=== PATIENT | female | born 1955 | race Caucasian/White ===

== ENCOUNTER 2022-12-30 06:51 | Outpatient (OUT) | payer MEDICARE, OTHER, SELFPAY ==
--- NOTE | 2022-12-30 07:07 | CT_ITS ---
[address] [address] Patient Name: DONNIE BULLOCK MRN: [id number] date: 1955 Sex: F Assigned Patient Location: LAB Current Patient Location: LAB Accession/Order Number: [id number] Exam Date: 12/30/2022 08:10 Report Date: 12/30/2022 09:12 At the request of: MONI SIMPSON Procedure: CT abdomen pelvis w con EXAMINATION: CT abdomen pelvis w con HISTORY: Abdominal Pain R10.84, Change In Stool R19.5 COMPARISON: No relevant comparison available. TECHNIQUE: Axial, Coronal, and Sagittal images were obtained without and/or with IV contrast as indicated by examination type. Dose reduction techniques were achieved by using automated exposure control and/or adjustment of mA and/or kV according to patient size and/or use of iterative reconstruction technique. FINDINGS: LUNG BASES: No visible pulmonary or pleural disease. LIVER: No enlargement, atrophy, suspicious density, or significant focal lesion. BILIARY: No dilatation or calcification. PANCREAS: No lesion, fluid collection, or abnormal duct dilatation. SPLEEN: No enlargement or focal lesion. ADRENALS: No mass or enlargement. KIDNEYS: 8.9 cm, and 1.0 cm benign-appearing left renal cysts. No mass, obstruction, or calcification. BOWEL/MESENTERY: No visible mass, obstruction, or bowel wall thickening. Relatively empty/collapsed distal colon. AORTA/VASCULAR: No aneurysm or dissection. RETROPERITONEUM: No mass or adenopathy. LYMPH NODES: No adenopathy. URINARY BLADDER: No visible focal wall thickening, lesion, or calculus. PELVIC ORGANS: Hysterectomy. ABDOMINAL WALL: No mass or hernia. BONES: Multilevel degenerative disc disease, greatest at L2-L3. No bony lesion or fracture. OTHER: Negative. CT/CT abdomen pelvis w con IMPRESSION: 1.No acute or suspicious findings to account for patient's symptoms. No appreciable mass or bowel obstruction. Electronically authenticated by: HERSON REBOLLEDO Date: 12/30/2022 09:12
[2022-12-30 07:08] LABS: Estimated GFR (African America >60 (>=60); Estimated GFR (Non-African Ame >60 (>=60)
== END 2022-12-30 06:52 | disposition home or self-care (01) ==
LOC: LAB 06:52
PROVIDERS: PCP Family Medicine; Visit Provider Family Medicine
DX: R10.84 Generalized abdominal pain (principal); R19.5 Other fecal abnormalities
CPT/HCPCS: 36415; 74177; 82565; Q9967

== ENCOUNTER 2023-01-14 11:29 | Outpatient (OUT) | payer MEDICARE, OTHER, SELFPAY | END 2023-01-14 11:30 | disposition home or self-care (01) | LOC: PST 11:31 | PROVIDERS: PCP Family Medicine; Visit Provider Surgery | DX: Z01.818 Encounter for other preprocedural examination (principal); R19.4 Change in bowel habit; K59.09 Other constipation ==

== ENCOUNTER 2023-01-27 08:23 | Day surgery (SDC) | payer MEDICARE, OTHER, SELFPAY ==
--- NOTE | 2023-01-27 | OP_ITS ---
OPERATION DATE: ??01/27/2023 PREOPERATIVE DIAGNOSIS:? Change in bowel habits, chronic constipation. POSTOPERATIVE DIAGNOSIS:? Redundant colon with spasm. PROCEDURE:? Colonoscopy to cecum. SURGEON:? Amor Gooden M.D. ANESTHESIA:? Monitored anesthesia care. ESTIMATED BLOOD LOSS:? Zero. INDICATIONS AND CONSENT:? Patient is a 67-year-old female with history of decreased caliber of the stool, as well as chronic constipation.? Indications, risks, benefits, alternatives of proceeding with colonoscopy were explained extensively to the patient, including the risks of bleeding, colon perforation or anesthetic complications.? All of her questions were answered.? Informed consent was obtained. PROCEDURE:? Patient brought to the operating room, placed in the left lateral decubitus position.? Monitored anesthesia care was provided.? Rectal exam was performed which showed no masses or blood.? The scope was inserted into the anal canal.? Under direct visualization was advanced.? There was noted to be brown liquid stool, as well as semi-solid stool throughout the colon that was partially irrigated clear, but was considered a poor prep.? The scope was able to be advanced to the cecum.? Cecal bulb was partially obscured by formed stool.? There were no large mass lesions or polyps.? No inflammatory changes or ulcerations.? There was mild sigmoid diverticulosis.? There was noted to be marked redundancy and spasm of the colon.? The scope was retroflexed in the anal canal.? There was no significant hemorrhoidal disease.? Scope was then withdrawn.? Patient tolerated procedure well, was sent to recovery room in good condition. Follow up colonoscopy for screening should be in 10 years. CC:? Remigio Hoyos M.D. [facility] FACILITYCamila
[2023-01-27 08:39] VITALS: BMI 26.8
[2023-01-27] MEDS: LACTATED RINGER'S SOLUTION 1,000 ML 50 ML IV (08:45)
[2023-01-27 10:05] VITALS: BP 98/55; PULSE 72; RESP 16; TEMP 36.2; O2SAT 98
[2023-01-27 10:16] VITALS: BP 129/64; PULSE 74; RESP 16; O2SAT 99
[2023-01-27 10:30] VITALS: BP 120/68; PULSE 72; RESP 16; O2SAT 99
== END 2023-01-27 10:32 | disposition home or self-care (01) ==
PROVIDERS: PCP Family Medicine; Visit Provider Surgery
PROC: (CPT 45378; principal; 2023-01-27 10:00)
DX: K59.09 Other constipation (principal); K58.1 Irritable bowel syndrome with constipation; E78.5 Hyperlipidemia, unspecified; K21.9 Gastro-esophageal reflux disease without esophagitis; F41.1 Generalized anxiety disorder; Q43.8 Other specified congenital malformations of intestine; K57.30 Diverticulosis of large intestine without perforation or abscess without bleeding
CPT/HCPCS: 45378; J2704

== ENCOUNTER 2023-03-25 07:46 | Outpatient (OUT) | payer MEDICARE, OTHER, SELFPAY ==
[2023-03-25 08:15] LABS: Estimated GFR (African America >60 (>=60); Estimated GFR (Non-African Ame >60 (>=60)
== END 2023-03-25 07:47 | disposition home or self-care (01) ==
LOC: LAB 07:46
PROVIDERS: PCP Family Medicine; Visit Provider Family Medicine
DX: R42 Dizziness and giddiness (principal); Z82.3 Family history of stroke
CPT/HCPCS: 36415; 82565

== ENCOUNTER 2023-05-13 09:03 | Outpatient (OUT) | payer MEDICARE, OTHER, SELFPAY ==
--- OUTSIDE RECORDS SUMMARY | 2023-05-13 09:05 | XMS_ITS | CCD ---
Author Name Unknown Address [address] [facility] [address] [place] [address] Organization [facility] Care Team Providers Care Whizzer Hand Name Role Phone CALVIN, DR MONI Richardson Attending Unavailable NADERER, DR MONI Richardson Admitting Unavailable NADERER, DR MONI Richardson Primary Care Unavailable NADERER, DR MONI Richardson Consulting Unavailable NADERER, DR MONI Richardson Admitting Unavailable NADERER, DR MONI Richardson Primary Care Unavailable ZIEBER, DR HERSON Pollock Consulting Unavailable NADERER, DR MONI Richardson Attending Unavailable NADERER, DR MONI Richardson Consulting Unavailable NADERER, DR MONI Richardson Admitting Unavailable NADERER, DR MONI Richardson Primary Care Unavailable ZIEBER, DR HERSON Pollock Consulting Unavailable NADERER, DR MONI Richardson Attending Unavailable NADERER, DR MONI Richardson Consulting Unavailable NADERER, DR MONI Richardson Admitting Unavailable NADERER, DR MONI Richardson Primary Care Unavailable ZIEBER, DR HERSON Pollock Consulting Unavailable NADERER, DR MONI Richardson Attending Unavailable NADERER, DR MONI Richardson Consulting Unavailable NADERER, MONI Primary Care Physician Amor HOLLY Attending Unavailable NADERER, MONI Referring Unavailable NILL, Amor Pollock Attending Unavailable NADERER, MONI Referring Unavailable NILL, Amor Pollock Attending Unavailable Medications Current Medications Medication Drug Class(es) Dates Sig (Normalized) Sig (Original) wheat dextrin 3000 mg powder for oral solution (1 source) Start: 01-08-2023 Benefiber 100% oral powder as needed for constipation, Refill(s) 0 Start Date: 01/08/23 Status: Ordered Problems Active Problems Problem Classification Problem Date Documented Da te Episodic/Chronic Abdominal pain (1 source) Generalized abdominal pain 01-04-2023 Episodic Anxiety disorders (1 source) Generalized anxiety disorder 01-04-2023 Chronic Cardiac dysrhythmias (1 source) Paroxysmal supraventricular tachycardia 01-04-2023 Chronic Conditions associated with dizziness or vertigo (1 source) Dizziness and giddiness; Translations: [DIZZINESS AND GIDDINESS] Onset: 3 Episodic Diabetes mellitus without complication (5 sources) Impaired fasting glucose; Translations: [Impaired fasting glycemia] Onset: 3 Episodic Disorders of lipid metabolism (2 sources) Hyperlipidemia, unspecified; Translations: [Dyslipidemia] Onset: 3 01-04-2023 Chronic Esophageal disorders (1 source) Gastroesophageal reflux disease 01-04-2023 Chronic Comment on above: diet controlled Malaise and fatigue (1 source) Other fatigue; Translations: [OTHER FATIGUE] Onset: 3 Episodic Other aftercare (1 source) Other halfway (current) drug therapy; Translations: [OTH MCC CURRENT DRUG THERAPY] Onset: 3 Episodic Other bone disease and musculoskeletal deformities (1 source) Osteopenia 01-04-2023 Episodic Other circulatory disease (1 source) Orthostatic hypotension 01-04-2023 Episodic Other gastrointestinal disorders (5 sources) Other constipation; Translations: [OTHER CONSTIPATION] Onset: 3 Episodic Other gastrointestinal disorders (2 sources) Altered bowel function; Translations: [Change in bowel habit] Onset: 3 Episodic Other gastrointestinal disorders (1 source) Chronic constipation 01-04-2023 Episodic Other nervous system disorders (1 source) Carpal tunnel syndrome 06-15-2014 Chronic Other nutritional; endocrine; and metabolic disorders (1 source) Overweight 01-08-2023 Episodic Other nutritional; endocrine; and metabolic disorders (1 source) Overweight in adulthood with body mass index of 25 or more but less than 30 01-08-2023 Episodic Other screening for suspected conditions (not mental disorders or infectious disease) (1 source) Stool DNA-based colorectal cancer screening positive 12-03-2020 Episodic Residual codes; unclassified (1 source) Family history of stroke; Translations: [FAMILY HISTORY OF STROKE] Onset: 3 Episodic Spondylosis; intervertebral disc disorders; other back problems (1 source) Cervical disc disorder 01-04-2023 Chronic Unclassified (3 sources) CONTACT W/AND (SUSP) EXPOS COVID-19; Translations: [CONTACT W/AND (SUSP) EXPOS COVID-19] Onset: 2 Past or Other Problems Problem Classification Problem Date Documented Da te Episodic/Chronic Other non-traumatic joint disorders (4 sources) Pain in right elbow; Translations: [PAIN IN RIGHT ELBOW] Onset: 03-12-2022 Episodic Unclassified (1 source) CONTACT W/AND (SUSP) EXPOS COVID-19; Translations: [CONTACT W/AND (SUSP) EXPOS COVID-19] Onset: 11-04-2021 Unclassified (1 source) Entire carpal canal (body structure) 01-04-2023 Comment on above: had left done Results Test Name Value Interpretation Reference Range Facility Outside Colonoscopyon 2022 Outside Colonoscopy [id number]. [id number]:127 [facility] Reminderson 01-28-2023 Reminders - From: Sarah Griffiths LPN To: N - Clinical; Sent: 01/28/2023 13:00:59 EDT Show up: 12/27/2032 07:00:00 EDT Subject: colonoscopy recall Due Date/Time: 01/27/2033 07:00:00 EDT Reminder/Recall Patient due for screening colonoscopy 01/27/2033. [facility] Consent for Procedure/Surger yon 01-12-2023 Consent for Procedure/Surgery [id number] .[id number]:127 [facility] Ambulatory Visit Summaryon 0 01-08-2023 Ambulatory Visit Summary DONNIE BULLOCK :1955 Visit Date:01/08/2023 Ambulatory Visit Instructions Your Care Team Attending Physician - AVNI ROGERS, Amor Pollock Primary Care Physician - CALVIN ROGERS, MONI Referring Physician - MONI SIMPSON MD This Is Your Medications List Contact prescribing physician if questions or concerns wheat dextrin (Benefiber 100% oral powder) Procedures Performed Colonoscopy (12/25/2020), right carpal tunnel release (06/29/2014), left carpal tunnel release (06/15/2014), Adenoidectomy, D&C - Dilatation and curettage, tonsillectomy, VH - Vaginal hysterectomy. Discharge Vitals Heart Rate (Peripheral) 80 Respiratory Rate 16 Blood Pressure 136/94 Height 167 cm Height 66 in Weight 78 kg Weight 171.6 lb BMI 27.97 Medications What When Instructions Unchanged wheat dextrin (Benefiber 100% oral powder) As needed for as needed for constipation Contact prescribing physician if questions or concerns Allergies No Known Allergies Problems Ongoing - Any problem that you are currently receiving treatment for. BMI 27.0-27.9,adult Cervical disc disease Change in bowel habits Chronic constipation Dyslipidemia DALILA (generalized anxiety disorder) Generalized abdominal pain GERD (gastroesophageal reflux disease) Impaired fasting glucose Orthostatic hypotension Osteopenia Overweight Positive colorectal cancer screening using Cologuard test PSVT (paroxysmal supraventricular tachycardia) Historical - Any problem that you are no longer receiving treatment for. Carpal tunnel Normal [facility] RAD - CT Reporton 01-07-2023 RAD - CT Report [id number]:127 Normal [facility] Physician Referralon 023 Physician Referral [id number]:127 Normal [facility] CBC AUTO DIFFon 09-10-2022 BASO # 0.0 103/ul Normal 0.0-0.1 [facility] Comment on above: Performed By: #### C BC #### [facility] [address] [address] [address] Jess Marie Basophils/100 WBC (Bld) 0.4 % Normal 0.2-2.0 [facility] Comment on above: Performed By: #### C BC #### [facility] [address] [address] [address] Jess Marie EO # 0.0 103/ul Normal 0.0-0.7 [facility] Comment on above: Performed By: #### C BC #### [facility] [address] [address] [address] Jess Marie Eosinophils/100 WBC (Bld) 0.4 % Critically low 0.9-7.0 [facility] Comment on above: Performed By: #### C BC #### [facility] [address] [place] [address] Dr. Jess Marie Erythrocyte distribution width (RBC) [Ratio] 12.5 % Normal 11.0-15.0 [facility] Comment on above: Performed By: #### C BC #### [facility] [address] [place] [address] Dr. Jess Marie Hematocrit (Bld) [Volume fraction] 43.1 % Normal 36.0-48.0 [facility] Comment on above: Performed By: #### C BC #### [facility] [address] [place] [address] Dr. Jess Marie Hemoglobin (Bld) [Mass/Vol] 14.0 g/dL Normal 12.0-16.0 [facility] Comment on above: Performed By: #### C BC #### [facility] [address] [place] [address] Dr. Jess Marie IG # 0.01 10e3/ul Normal 0.00-0.03 [facility] Comment on above: Performed By: #### C BC #### [facility] [address] [place] [address] Dr. Jess Marie IG % 0.2 % Normal 0.0-0.5 [facility] Comment on above: Performed By: #### C BC #### [facility] [address] [place] [address] Dr. Jess Marie LYMPH # 1.4 103/ul Normal 1.2-3.8 [facility] Comment on above: Performed By: #### C BC #### [facility] [address] [place] [address] Dr. Jess Marie Lymphocytes/100 WBC (Bld) 26.8 % Normal 20.5-60.0 [facility] Comment on above: Performed By: #### C BC #### [facility] [address] [place] [address] Dr. Jess Marie MANUAL DIFF REQ NO Normal [facility] Comment on above: Performed By: #### C BC #### [facility] [address] [place] [address] Dr. Jess Marie MCH (RBC) [Entitic mass] 29.7 pg Normal 26.7-34.0 [facility] Comment on above: Performed By: #### C BC #### [facility] [address] [place] [address] Dr. Jess Marie MCHC (RBC) [Mass/Vol] 32.5 g/dL Normal 29.9-35.2 [facility] Comment on above: Performed By: #### C BC #### [facility] [address] [place] [address] Dr. Jess Marie MCV (RBC) [Entitic vol] 91.3 fL Normal 81.0-99.0 [facility] Comment on above: Performed By: #### C BC #### [facility] [address] [place] [address] Dr. Jess Marie MONO # 0.3 103/ul Normal 0.3-0.8 [facility] Comment on above: Performed By: #### C BC #### [facility] [address] [place] [address] Dr. Jess Marie Monocytes/100 WBC (Bld) 5.2 % Normal 1.7-12.0 [facility] Comment on above: Performed By: #### C BC #### [facility] [address] [place] [address] Dr. Jess Marie NEUT # 3.5 103/ul Normal 1.4-6.5 [facility] Comment on above: Performed By: #### C BC #### [facility] [address] [place] [address] Dr. Jess Marie Neutrophils/100 WBC (Bld) 67.0 % Normal 43.0-75.0 [facility] Comment on above: Performed By: #### C BC #### [facility] [address] [place] [address] Dr. Jess Marie Platelet mean volume (Bld) [Entitic vol] 9.7 fL Normal 9.5-13.5 [facility] Comment on above: Performed By: #### C BC #### [facility] [address] [address] [address] Jess Marie PLT 230 103/ul Normal 150-450 [facility] Comment on above: Performed By: #### C BC #### [facility] [address] [place] [address] Dr. Jess Marie RBC 4.72 106/ul Normal 4.20-5.40 [facility] Comment on above: Performed By: #### C BC #### [facility] [address] [place] [address] Dr. Jess Marie WBC 5.2 103/ul Normal 4.0-11.0 [facility] Comment on above: Performed By: #### C BC #### [facility] [address] [place] [address] Dr. Jess Marie GLYCOHEMOGLOBIN A1Con 2022 ADA RECOMMENDATION SEE BELOW Normal [facility] Comment on above: Result Comment: ADA RECOMMENDED LIMIT 4.0 - 6.0 ADA THERAPEUTIC TARGET < 7.0 ACTION SUGGESTED > 7.0 Performed By: #### A 1C #### [facility] [address] [place] [address] Dr. Jess Marie Glucose [Mass/Vol] 123 mg/dL Normal [facility] Comment on above: Performed By: #### A 1C #### [facility] [address] [place] [address] Dr. Jess Marie HbA1c (Bld) [Mass fraction] 5.9 % Normal 4.5-6.2 [facility] Comment on above: Performed By: #### A 1C #### [facility] [address] [place] [address] Dr. Jess Marie LIPID PROFILEon 09-10-2022 CHOL-HDL RATIO NORM SEE BELOW Normal [facility] Comment on above: Result Comment: 3.3 - 4.4 LOW RISK 4.4 - 7.1 AVERAGE RISK 7.1 - 11.0 MODERATE RISK >11.0 HIGH RISK Performed By: #### T SH, LIVER, BMP, LIPID #### [facility] [address] [place] [address] Dr. Jess Marie Cholesterol [Mass/Vol] 267 mg/dL Critically high <=200 [facility] Comment on above: Performed By: #### T SH, LIVER, BMP, LIPID #### [facility] [address] [address] [address] Jess Marie Cholesterol in HDL [Mass/Vol] 79 mg/dL Critically high 40-60 [facility] Comment on above: Performed By: #### T SH, LIVER, BMP, LIPID #### [facility] [address] [address] [address] Jess Marie Cholesterol in LDL [Mass/Vol] 172.4 mg/dL Normal [facility] Comment on above: Performed By: #### T SH, LIVER, BMP, LIPID #### [facility] [address] [place] [address] Dr. Jess Marie Cholesterol.total/Cho lesterol in HDL [Mass ratio] 3.4 {ratio} Normal [facility] Comment on above: Performed By: #### T SH, LIVER, BMP, LIPID #### [facility] [address] [place] [address] Dr. Jess Marie HDL NORMAL > or = 60 mg/dl - LO W CARDIOVASCULAR RISK <40 mg/dl - HIGH CARDIOVASCULAR RISK Normal [facility] Comment on above: Performed By: #### T SH, LIVER, BMP, LIPID #### [facility] [address] [place] [address] Dr. Jess Marie LDL CALC NORMAL SEE BELOW Normal [facility] Comment on above: Result Comment: <100 mg/dl OPTIMAL 100 - 129 mg/dl NEAR OR ABOVE OPTIMAL 130 - 159 mg/dl BORDERLINE HIGH 160 - 189 mg/dl HIGH >190 mg/dl VERY HIGH Performed By: #### T SH, LIVER, BMP, LIPID #### [facility] [address] [place] [address] Dr. Jess Marie Triglyceride [Mass/Vol] 78 mg/dL Normal <=150 [facility] Comment on above: Performed By: #### T SH, LIVER, BMP, LIPID #### [facility] [address] [place] [address] Dr. Jess Marie VLDL CALC 15.6 mg/dL Normal [facility] Comment on above: Performed By: #### T SH, LIVER, BMP, LIPID #### [facility] [address] [address] [address] Jess Marie LIVER PROFILEon 09-10-2022 Albumin [Mass/Vol] 3.9 g/dL Normal 3.4-5.0 [facility] Comment on above: Performed By: #### T SH, LIVER, BMP, LIPID #### [facility] [address] [address] [address] Jess Marie Albumin/Globulin [Mass ratio] 0.9 {ratio} Normal [facility] Comment on above: Performed By: #### T SH, LIVER, BMP, LIPID #### [facility] [address] [place] [address] Dr. Jess Marie ALP [Catalytic activity/Vol] 61 U/L Normal 46-116 [facility] Comment on above: Performed By: #### T SH, LIVER, BMP, LIPID #### [facility] [address] [place] [address] Dr. Jess Marie ALT [Catalytic activity/Vol] 25 U/L Normal 14-59 [facility] Comment on above: Performed By: #### T SH, LIVER, BMP, LIPID #### [facility] [address] [place] [address] Dr. Jess Marie AST [Catalytic activity/Vol] 27 U/L Normal 15-37 [facility] Comment on above: Performed By: #### T SH, LIVER, BMP, LIPID #### [facility] [address] [place] [address] Dr. Jess Marie BILI, CONJUGATED 0.1 mg/dL Normal 0.0-0.2 [facility] Comment on above: Performed By: #### T SH, LIVER, BMP, LIPID #### [facility] [address] [place] [address] Dr. Jess Marie Bilirubin [Mass/Vol] 0.7 mg/dL Normal 0.2-1.0 [facility] Comment on above: Performed By: #### T SH, LIVER, BMP, LIPID #### [facility] [address] [address] [address] Jess Marie Globulin (S) [Mass/Vol] 4.2 g/dL Normal [facility] Comment on above: Performed By: #### T SH, LIVER, BMP, LIPID #### [facility] [address] [address] [address] Jess Marie Protein [Mass/Vol] 8.1 g/dL Normal 6.4-8.2 [facility] Comment on above: Performed By: #### T SH, LIVER, BMP, LIPID #### [facility] [address] [place] [address] Dr. Jess Marie PROF CHEM 8 (BAS METB)on Anion gap [Moles/Vol] 13.1 mmol/L Normal [facility] Comment on above: Performed By: #### T SH, LIVER, BMP, LIPID #### [facility] [address] [place] [address] Dr. Jess Marie Calcium [Mass/Vol] 9.6 mg/dL Normal 8.5-10.1 [facility] Comment on above: Performed By: #### T SH, LIVER, BMP, LIPID #### [facility] [address] [place] [address] Dr. Jess Marie Chloride [Moles/Vol] 105 mmol/L Normal 98-107 [facility] Comment on above: Performed By: #### T SH, LIVER, BMP, LIPID #### [facility] [address] [place] [address] Dr. Jess Marie CO2 [Moles/Vol] 28.9 mmol/L Normal 21.0-32.0 [facility] Comment on above: Performed By: #### T SH, LIVER, BMP, LIPID #### [facility] [address] [place] [address] Dr. Jess Marie Creatinine [Mass/Vol] 0.62 mg/dL Normal 0.55-1.02 [facility] Comment on above: Performed By: #### T SH, LIVER, BMP, LIPID #### [facility] [address] [address] [address] Jess Marie EGFR-AF KYRGYZ >60 Normal >=60 [facility] Comment on above: Performed By: #### T SH, LIVER, BMP, LIPID #### [facility] [address] [address] [address] Jess Marie EGFR-NON AF KYRGYZ >60 Normal >=60 [facility] Comment on above: Performed By: #### T SH, LIVER, BMP, LIPID #### [facility] [address] [address] [address] Jess Marie Glucose [Mass/Vol] 112 mg/dL Critically high 74-106 [facility] Comment on above: Performed By: #### T SH, LIVER, BMP, LIPID #### [facility] [address] [address] [address] Jess Marie Potassium [Moles/Vol] 5.0 mmol/L Normal 3.5-5.1 [facility] Comment on above: Result Comment: spec imen slightly hemolyzed Performed By: #### T SH, LIVER, BMP, LIPID #### [facility] [address] [address] [address] Jess Marie Sodium [Moles/Vol] 142 mmol/L Normal 136-145 [facility] Comment on above: Performed By: #### T SH, LIVER, BMP, LIPID #### [facility] [address] [address] [address] Jess Marie Urea nitrogen [Mass/Vol] 15.0 mg/dL Normal 7.0-18.0 [facility] Comment on above: Performed By: #### T SH, LIVER, BMP, LIPID #### [facility] [address] [address] [address] Jess Marie Urea nitrogen/Creatinine [Mass ratio] 24.2 mg/mg Normal [facility] Comment on above: Performed By: #### T SH, LIVER, BMP, LIPID #### [facility] [address] [address] [address] Jess Marie TSHon 09-10-2022 TSH 1.518 uIU/mL Normal 0.358-3.740 [facility] Comment on above: Performed By: #### T SH, LIVER, BMP, LIPID #### [facility] [address] [address] [address] Jess Marie US CAROTID ART BILon 09-10- 023 US CAROTID ART ROSARIO EXAMINATION: US CAROTID ART ROSARIO HISTORY: Family history of stroke ; episodes of lightheadedness COMPARISON: No relevant comparison available. TECHNIQUE: Duplex Doppler ultrasound analysis of carotid and vertebral arteries. . Bilateral carotid arterial duplex examination was performed using B-mode, color flow and spectral analysis. Carotid stenosis is reported according to validated velocity parameters, similar to NASCET criteria. FINDINGS: RIGHT CAROTID ARTERY: No visible stenosis or significant plaque. RIGHT VERTEBRAL: Antegrade flow. Subclavian: PSV: 191.9 cm/s EDV: 8.1 cm/s CCA: Prox: PSV: 80.6 cm/s EDV: 17.5 cm/s Mid: PSV: 70.2 cm/s EDV: 17.5 cm/s Distal: PSV: 61.4 cm/s EDV: 15.3 cm/s BULB: PSV: 59.2 cm/s EDV: 14.2 cm/s ICA: Prox: PSV: 53.1 cm/s EDV: 17.4 cm/s Mid: PSV: 106.2 cm/s EDV: 31.3 cm/s Distal: PSV: 71.3 cm/s EDV: 19.7 cm/s ECA: PSV: 71.3 cm/s EDV: 8.7 cm/s VERTEBRAL: PSV: 43.3 cm/s EDV: 10.6 cm/s ICA/CCA ratio: PSV: 1.7 EDV: 2.1 LEFT CAROTID ARTERY: No visible stenosis or significant plaque. LEFT VERTEBRAL: Antegrade flow. Subclavian: PSV: 167.0 cm/s EDV: 0.0 cm/s CCA: Prox: PSV: 106.6 cm/s EDV: 27.6 cm/s Mid: PSV: 82.2 cm/s EDV: 17.6 cm/s Distal: PSV: 74.9 cm/s EDV: 18.0 cm/s BULB: PSV: 47.9 cm/s EDV: 12.1 cm/s ICA: Prox: PSV: 68.5 cm/s EDV: 16.7 cm/s Mid: PSV: 85.3 cm/s EDV: 28.3 cm/s Distal: PSV: 56.8 cm/s EDV: 23.2 cm/s ECA: PSV: 68.5 cm/s EDV: 8.9 cm/s VERTEBRAL: PSV: 48.8 cm/s EDV: 14.7 cm/s ICA/CCA ratio: PSV: 1.1 EDV: 1.6 IMPRESSION: 1. 0-49% flow stenosis within the right and left carotid arteries. 2. No significant atherosclerotic narrowing. Spectral Doppler US Thresholds Stenosis (%) PSV (cm/sec) VICA/VCCA 0-49 <150 <2.5 50-69 150-225 2.5-4.0 >70 >225 >4.0 Electronically authenticated by: HERSON REBOLLEDO Date: 2022-09-10 12:26 Normal [facility] XR ABD FLAT_UPon 06-10-2022 XR ABD FLAT_UP EXAMINATION: XR ABD FLAT_UP HISTORY: Constipation COMPARISON: No relevant comparison available. FINDINGS: BOWEL GAS PATTERN: Large amount of stool throughout the colon without abnormal dilation or obstruction. FREE AIR: None. CALCIFICATIONS: None significant. BONES: Scoliotic curvature of lumbar spine. No fracture. OTHER: Negative. IMPRESSION: 1. Large stool burden compatible with constipation. 2. No bowel obstruction. Electronically authenticated by: HERSON REBOLLEDO Date: 2022-06-10 08:38 Normal [facility] Covid-19 PCR (CVDTBH)on 10-16 SARS-CoV-2 (COVID-19) RNA YAYA+probe Ql (Unsp spec) Not detected Normal NOT DETECTED [facility] Comment on above: Result Comment: This test is not yet approved or cleared by the [place] FDA. When there are no FDA-approved or cleared tests available, and other criteria are met, FDA can make tests available under an emergency access mechanism called an Emergency Use Authorization (EUA). The EUA for this test is supported by the Plant And Instrument Engineer of Health and Human Service's (HHS's) declaration that circumstances exist to justify the emergency use of in vitro diagnostics for the detection and/or diagnosis of the virus that causes COVID-19. This EUA will remain in effect (meaning this test can be used) for the duration of the COVID-19 declaration justifying emergency of IVDs, unless it is terminated or revoked by FDA (after which the test may no longer be used). When diagnostic testing is negative, the possibility of a false negative should be considered in the context of a patient's recent exposures and the presence of clinical signs and symptoms consistent with SARS-CoV-2. Performed By: #### C [facility] #### [facility] [address] [place] [address] Dr. Jess Marie Vital Signs Date Time Vital Sign Value Performing Clinician Blu arango 01-08-2023 13:49-0400 Diastolic blood pressure 94 mm[Hg] Amor NILL [facility] 01-08-2023 13:49-0400 Heart rate 80 /min Amor NILL [facility] 01-08-2023 13:49-0400 Respiratory rate 16 /min Amor NILL [facility] 01-08-2023 13:49-0400 Systolic blood pressure 136 mm[Hg] [facility]ILL [facility] [facility] Encounters Encounter Date Encounter Type Care Provider Facility Start: 01-27-2023 End: 01-28-2023 ambulatory Amor MONTOYAL Facility:CD:[id number] Start: 01-08-2023 End: 01-09-2023 [facility]ulatory [facility] Start: 01-08-2023 End: 01-08-2023 Patient encounter procedure [facility]or R NILL [facility] Start: 12-30-2022 ambulatory Amor HOLLY Facility :[facility] Start: 09-10-2022 End: 09-11-[address] MONI SIMPSON Facility:[facility] Start: 06-09-2022 End: 06-10-[address] MONI SIMPSON Facility:[facility] Start: 03-12-2022 End: 03-13-[address] MONI SIMPSON Facility:[facility] Start: 11-04-2021 End: 11-04-[address] MONI SIMPSON Facility:[facility] Procedures Date Procedure Procedure Detail Performing Clinician Start: 12-25-2020 Colonoscopy Amor COBOS KEYSHA Start: 06-29-2014 right carpal tunnel release Amor NILL Start: 06-15-2014 left carpal tunnel release Amor NILL Adenoid excision Amor NIL L Dilation and curetta ge of uterus Amor NILL Comment on above: 2004 tonsillectomy 2 Amor NILL Comment on above: 1958 Vaginal hysterectomy Amor MONTOYAL Immunizations Immunization Date Immunization Notes Care Provider Fa cili 03-17-2022 SARS-CoV-2 (COVID-19 ) [id number] Amor MONTOYAL [place] 10-05-2021 SARS-CoV-2 mRNA (yrtpughmqbf-wdla-wijjx se) vaccine Amor MONTOYAL General [facility] [place] 03-06-2021 SARS-CoV-2 (COVID-19 ) mRNA BNT-162b2 vax Amor MONTOYAL [facility] [place] 07-30-2020 SARS-CoV-2 (COVID-19 ) mRNA BNT-162b2 vax Amor NILL [facility] [place] Comment on above: Result Comment: 2022: [id number] 07-09-2020 SARS-CoV-2 (COVID-19 ) mRNA BNT-162b2 vax Amor NILL [facility] [place] Comment on above: Result Comment: 2022: [id number] Payers Date Payer Category Payer Unknown 1961 Medicare [id number] 1961 Unknown [id number] 1955 Unknown [id number] 2.16.84 [id number] 1953 Unknown [id number] 2.16.84 [id number] 1953 Unknown [id number] 2.16.84 [id number] 1953 Unknown [id number] 2.16.84 [id number] 1953 Unknown [id number] 2.16.8 [id number] 1953 Unknown [id number] 2.16.8 [id number] 1953 Unknown [id number] 2.16.8 [id number] Social History Date Type Detail Facility Start: 01-08-2023 Tobacco smoking status Never s moked tobacco (finding) General Surgery [facility] Tobacco smoking status Never Gener al Surgery [facility] Sex Assigned At Female [facility] Functional Status Date Assessment Result Facility 01-08-2023 [facility] Status N/A [facility]-08-2023 Note Date & Type Note Facility 01-08-2023 Note Chief Complaint consultation for change in bowel habits HPI Staff 67 year old female presents on consultation from Dr. Simpson for change in bowel habits. Reports she developed constipation in August. Started daily fiber and MiraLAX which resulted in smaller caliber of stool. States she is no longer taking MiraLAX but continues on Benefiber. States caliber of stool varies. Some days she feels caliber is normal . Reports constipation is chronic since childhood. Denies abdominal or rectal pain. No rectal bleeding. Denies nausea or vomiting. Reports small amount of weight loss recently which she contributes to healthier eating habits. CT abdomen/pelvis 12/30- unremarkable. Last colonoscopy completed 12/2020 with tortuous, redundant colon with spasm. History of Present Illness 67 yo female referred for change in bowel habits; patient reports several month h/o intermittent decrease caliber of stools; no blood, no straining, stools soft; h/o chronic constipation; last colonoscopy 2 years ago with redundant, tortuous colon; taking fiber supplement since then; no abd pain, or N/V; recent abd/pelvic ct scan done; images reviewed; no inflammation or bowel thickening; only abd operation vaginal hysterectomy; no asa or NSAID use; no SBE prophylaxis; no fmhx of GI malignancy or IBD; no tobacco use. Review of Systems PHQ Score Initial Depression Screen Score: 0 ROS - Provider Constitutional: no fever, no sweats, no weight loss. Eyes: no glasses, no blurred vision, no visual loss. ENMT: no dentures, no hoarseness, no swallowing difficulties, no hearing loss, no ear infection(s), no nose bleeds. Cardiovascular: normal blood pressure, no chest pain, regular heartbeat, no heart murmur. Respiratory: no shortness of breath, no cough, no asthma, no wheezing. Gastrointestinal: no nausea, no vomiting, no diarrhea, no constipation, no blood in stool, yes change in bowel habits, no abdominal pain, no hepatitis. Genitourinary: no kidney stones, no urine infection, no dysuria. Musculoskeletal: no pain, no weakness. Skin: no changing moles, no rash, no skin lumps. Neurologic: no seizures, no epilepsy, no headache. Psychiatric: no emotional or psychiatric problem. Heme/Lymph: no bleeding problems, no anemia, no blood clots, no transfusions. Allergy/Immunologic: no swollen lymph nodes/glands, no IV drug abuse. Other: Additional ROS info: Except as noted in the above Review of Systems and in the History of Present Illness, all other systems have been reviewed and are negative or noncontributory. Physical Exam Vitals & Measurements HR: 80(Peripheral) RR: 16 BP: 136/94 HT: 66 in HT: 167 cm WT: 78 kg WT: 171.6 lb BMI: 27.97 HEENT: normal conjunctiva, sclera clear, no scleral icterus, EOM intact, PERRLA, oral mucosa moist without lesions. Neck: trachea midline, no mass, symmetric, no thyromegaly or nodules, no adenopathy Respiratory: lungs CTA, respirations non labored. Cardiovascular: regular rate and rhythm, no murmur, no pedal edema or varicosities. Gastrointestinal: soft, non distended, no tenderness, no masses, no palpable hernias, diastasis recti no, no hepatosplenomegaly; normal bs Lymphatic: no cervical adenopathy, no supraclavicular adenopathy. Musculoskeletal: normal gait, digits and nails without infection, nodes, cyanosis, clubbing. Skin: no rashes, no lesions, no ulcers, no subcutaneous nodules, induration. Psychiatric/Neuro: oriented to time, place, person, judgement normal, affect appropriate for age, insight intact, no focal deficits. Tests: , x-rays reviewed, review of old records completed, Discussed surgical options, risks, and possible complications with patient. Assessment/Plan 1. Change in bowel habits (R19.4: Change in bowel habit) plan colonoscopy under anesthesia for further evaluation, informed consent obtained. 2. Chronic constipation (K59.09: Other constipation) see # 1 Follow-up No qualifying data available Problem List/Past Medical History Ongoing BMI 27.0-27.9,adult Cervical disc disease Change in bowel habits Chronic constipation Dyslipidemia DALILA (generalized anxiety disorder) Generalized abdominal pain GERD (gastroesophageal reflux disease) Impaired fasting glucose Orthostatic hypotension Osteopenia Overweight Positive colorectal cancer screening using Cologuard test PSVT (paroxysmal supraventricular tachycardia) Historical Carpal tunnel Procedure/Surgical History Colonoscopy (12/25/2020), right carpal tunnel release (06/29/2014), left carpal tunnel release (06/15/2014), Adenoidectomy, D&C - Dilatation and curettage, tonsillectomy, VH - Vaginal hysterectomy. Medications Benefiber 100% oral powder, PRN Allergies No Known Allergies Social History Alcohol - Low Risk, 06/05/2014 Substance Abuse - Denies Substance Abuse, 06/05/2014 Tobacco - Denies Tobacco Use, 06/05/2014 Never (less than 100 in lifetime) Tobacco Use:. Never Smokeless Tobacco Use:. Household tobacco (more content not included)... [facility] Comment on above: Result Comment: Elec tronically Signed By: AVNI ROGERS, Amor Rangel\Date and Time Signed: 01/08/23 15:31 EDT Clinical Note 03-12-2022 Note Date & Type Note Facility 03-12-2022 Note PROCEDURE: XR ELBOW RT MIN 3 VIEWS HISTORY: Pain of right elbow joint since falling one year ago COMPARISON: None. FINDINGS: BONES:No fracture, acute abnormality, or significant arthropathy. SOFT TISSUES:No visible soft tissue swelling. EFFUSION:None visible. OTHER: Negative. IMPRESSION: 1. Normal examination. Electronically authenticated by: HERSON REBOLLEDO Date: 2022-03-12 18:14 [facility] Evaluation + Plan note Note Date & Type Note Facility Evaluation + Plan note No data available for this section General [facility] [place] [facility] Discharge instructions Note Date & Type Note Facility Hospital Discharge instructions No data available for this section General Surgery [place] Progress note Note Date & Type Note Facility Progress note No data available for this section General Surgery [place] Summary Purpose Family History No Family History Records FoundNo Family History Records Found Advance Directives No Advanced Directives Records FoundNo Advanced Directives Records Found Additional Source Comments INFORMATION SOURCE (unrecogn ized section and content) DATE CREATED AUTHOR 09/17/2022 [facility] [facility] DATE CREATED AUTHOR AUTHOR'S ORGANIZ ATION 02/17/2023 [facility] Patient Care team informatio n (unrecognized section and content) Personnel Name: MONI SIMPSON MD Address: Address: [facility] [place] [address] FOR RECORDS PERTAINING TO PATIENTS WHO ARE OR HAVE BEEN ENROLLED IN A CHEMICAL DEPENDENCY/SUBSTANCEABUSE PROGRAM, SOME INFORMATION MAY BE OMITTED. This clinical summary was aggregated from multiple sources. Caution should be exercised in using it in the provision of clinical care. This summary normalizes information from multiple sources, and as a consequence, information in this document may materially change the coding, format and clinical context of patient data. In addition, data may be omitted in some cases. CLINICAL DECISIONS SHOULD BE BASED ON THE PRIMARY CLINICAL RECORDS. [facility] [employer] [facility] provides no warranty or guarantee of the accuracy or completeness of information in this document.
[2023-05-13 09:32] LABS: Basophils Percent Auto 0.6 % (0.2-2.0); Eosinophils Percent Auto 0.4 % (0.9-7.0); Hematocrit 41.2 % (36.0-48.0); Hemoglobin 13.5 g/dL (12.0-16.0); Mean Corpuscular HGB Conc 32.8 g/dL (29.9-35.2); Mean Corpuscular Hemoglobin 29.7 pg (26.7-34.0); Mean Corpuscular Volume 90.7 fL (81.0-99.0); Mean Platelet Volume 9.6 fL (9.5-13.5); Monocytes Absolute Auto 0.3 10^3/uL (0.3-0.8); Monocytes Percent Auto 6.1 % (1.7-12.0); Neutrophils Absolute Auto 3.7 10^3/uL (1.4-6.5); Neutrophils Percent Auto 72.9 % (43.0-75.0); Platelet Count 240 10^3/uL (150-450); Red Blood Count 4.54 10^6/uL (4.20-5.40); Red Cell Distribution Width 11.9 % (11.0-15.0); White Blood Count 5.1 10^3/uL (4.0-11.0)
[2023-05-13 09:50] LABS: Alanine Aminotransferase 25 U/L (14-59); Albumin Level 3.6 g/dL (3.4-5.0); Alkaline Phosphatase 57 U/L (46-116); Anion Gap 11.1; Aspartate Amino Transferase 17 U/L (15-37); BUN Creatinine Ratio 16.5; Bilirubin Direct 0.2 mg/dL (0.0-0.2); Bilirubin Total 0.7 mg/dL (0.2-1.0); Carbon Dioxide 30.7 mmol/L (21.0-32.0); Chloride 103 mmol/L (98-107); Estimated GFR (African America >60 (>=60); Estimated GFR (Non-African Ame >60 (>=60); Globulin 3.7 g/dL; Glucose 128 mg/dL (74-106); Magnesium 2.5 mg/dL (1.8-2.4); Potassium 3.8 mmol/L (3.5-5.1); Sodium 141 mmol/L (136-145); Total Protein 7.3 g/dL (6.4-8.2)
== END 2023-05-13 09:04 | disposition home or self-care (01) ==
LOC: LAB 09:03
PROVIDERS: PCP Family Medicine; Visit Provider Family Medicine
DX: Z79.899 Other long term (current) drug therapy (principal); R42 Dizziness and giddiness
CPT/HCPCS: 36415; 80048; 80076; 83735; 85025

== ENCOUNTER 2023-05-16 12:05 | Emergency (ER) | payer MEDICARE, OTHER, SELFPAY ==
[2023-05-16 12:11] VITALS: BP 129/102; PULSE 96; RESP 20; TEMP 36.8; O2SAT 99; BMI 25.8
--- OUTSIDE RECORDS SUMMARY | 2023-05-16 12:30 | XMS_ITS | CCD ---
Author Name Unknown Address [address] [facility] [address] [place] [address] Organization [facility] Care Team Providers Care Irrigationist Designer Name Role Phone CALVIN, DR MONI Richardson [...] 3 Episodic Other aftercare (1 source) Other chcf (current) drug therapy; Translations: [OTH CARE HOME CURRENT DRUG THERAPY] Onset: 3 Episodic Other [...] Range Facility Outside Colonoscopyon 2022 Outside Colonoscopy [id number]. 00CD:127 [facility] Reminderson 01-28-2023 Reminders - From: Sarah Griffiths LPN To: N - Clinical; Sent: 01/28/2023 13:00:59 EDT Show up: 12/27/2032 07:00:00 EDT Subject: colonoscopy recall Due Date/Time: 01/27/2033 07:00:00 EDT Reminder/Recall Patient due for screening colonoscopy 01/27/2033. [facility] Consent for Procedure/Surger yon 01-12-2023 Consent for Procedure/Surgery [id number] .[id number]:127 [facility] Ambulatory Visit Summaryon 0 01-08-2023 Ambulatory Visit [...] longer receiving treatment for. Carpal tunnel Normal [facility] RAD - CT Reporton 01-07-2023 RAD - CT Report [id number] .[id number]:127 Normal [facility] Physician Referralon 023 Physician Referral [id number] .[id number]:127 Normal [facility] CBC AUTO DIFFon 09-10-2022 BASO # 0.0 103/ul Normal 0.0-0.1 [facility] Comment on above: Performed By: #### C BC #### [facility] [address] [address] [address] Jess Marie Basophils/100 WBC (Bld) 0.4 % Normal 0.2-2.0 [facility] Comment on above: Performed By: #### C BC #### [facility] [address] [address] [address] Jess Marie EO # 0.0 103/ul Normal 0.0-0.7 [facility] Comment on above: Performed By: #### C BC #### [facility] [address] [address] [address] Jess Marie Eosinophils/100 WBC (Bld) 0.4 % Critically low 0.9-7.0 [facility] Comment on above: Performed By: #### C BC #### [facility] [address] [place] [address] Dr. Jess Marie Erythrocyte distribution width (RBC) [Ratio] 12.5 % Normal 11.0-15.0 [facility] Comment on above: Performed By: #### C BC #### [facility] [address] [place] [address] Dr. Jess Marie Hematocrit (Bld) [Volume fraction] 43.1 % Normal 36.0-48.0 [facility] Comment on above: Performed By: #### C BC #### [facility] [address] [place] [address] Dr. Jess Marie Hemoglobin (Bld) [Mass/Vol] 14.0 g/dL Normal 12.0-16.0 [facility] Comment on above: Performed By: #### C BC #### [facility] [address] [place] [address] Dr. Jess Marie IG # 0.01 10e3/ul Normal 0.00-0.03 [facility] Comment on above: Performed By: #### C BC #### [facility] [address] [place] [address] Dr. Jess Marie IG % 0.2 % Normal 0.0-0.5 [facility] Comment on above: Performed By: #### C BC #### [facility] [address] [place] [address] Dr. Jess Marie LYMPH # 1.4 103/ul Normal 1.2-3.8 [facility] Comment on above: Performed By: #### C BC #### [facility] [address] [place] [address] Dr. Jess Marie Lymphocytes/100 WBC (Bld) 26.8 % Normal 20.5-60.0 [facility] Comment on above: Performed By: #### C BC #### [facility] [address] [place] [address] Dr. Jess Marie MANUAL DIFF REQ NO Normal [facility] Comment on above: Performed By: #### C BC #### [facility] [address] [place] [address] Dr. Jess Marie MCH (RBC) [Entitic mass] 29.7 pg Normal 26.7-34.0 [facility] Comment on above: Performed By: #### C BC #### [facility] [address] [place] [address] Dr. Jess Marie MCHC (RBC) [Mass/Vol] 32.5 g/dL Normal 29.9-35.2 [facility] Comment on above: Performed By: #### C BC #### [facility] [address] [place] [address] Dr. Jess Marie MCV (RBC) [Entitic vol] 91.3 fL Normal 81.0-99.0 [facility] Comment on above: Performed By: #### C BC #### [facility] [address] [place] [address] Dr. Jess Marie MONO # 0.3 103/ul Normal 0.3-0.8 [facility] Comment on above: Performed By: #### C BC #### [facility] [address] [place] [address] Dr. Jess Marie Monocytes/100 WBC (Bld) 5.2 % Normal 1.7-12.0 [facility] Comment on above: Performed By: #### C BC #### [facility] [address] [place] [address] Dr. Jess Marie NEUT # 3.5 103/ul Normal 1.4-6.5 [facility] Comment on above: Performed By: #### C BC #### [facility] [address] [place] [address] Dr. Jess Marie Neutrophils/100 WBC (Bld) 67.0 % Normal 43.0-75.0 [facility] Comment on above: Performed By: #### C BC #### [facility] [address] [place] [address] Dr. Jess Marie Platelet mean volume (Bld) [Entitic vol] 9.7 fL Normal 9.5-13.5 [facility] Comment on above: Performed By: #### C BC #### [facility] [address] [address] [address] Jess Marie PLT 230 103/ul Normal 150-450 [facility] Comment on above: Performed By: #### C BC #### [facility] [address] [place] [address] Dr. Jess Marie RBC 4.72 106/ul Normal 4.20-5.40 [facility] Comment on above: Performed By: #### C BC #### [facility] [address] [place] [address] Dr. Jess Marie WBC 5.2 103/ul Normal 4.0-11.0 [facility] Comment on above: Performed By: #### C BC #### [facility] [address] [place] [address] Dr. Jess Marie GLYCOHEMOGLOBIN A1Con 2022 ADA RECOMMENDATION SEE BELOW Normal [facility] Comment on above: Result Comment: ADA RECOMMENDED LIMIT 4.0 - 6.0 ADA THERAPEUTIC TARGET < 7.0 ACTION SUGGESTED > 7.0 Performed By: #### A 1C #### [facility] [address] [place] [address] Dr. Jess Marie Glucose [Mass/Vol] 123 mg/dL Normal [facility] Comment on above: Performed By: #### A 1C #### [facility] [address] [place] [address] Dr. Jess Marie HbA1c (Bld) [Mass fraction] 5.9 % Normal 4.5-6.2 [facility] Comment on above: Performed By: #### A 1C #### [facility] [address] [place] [address] Dr. Jess Marie LIPID PROFILEon 09-10-2022 CHOL-HDL RATIO NORM SEE BELOW Normal [facility] Comment on above: Result Comment: 3.3 - 4.4 LOW RISK 4.4 - 7.1 AVERAGE RISK 7.1 - 11.0 MODERATE RISK >11.0 HIGH RISK Performed By: #### T SH, LIVER, BMP, LIPID #### [facility] [address] [place] [address] Dr. Jess Marie Cholesterol [Mass/Vol] 267 mg/dL Critically high <=200 [facility] Comment on above: Performed By: #### T SH, LIVER, BMP, LIPID #### [facility] [address] [address] [address] Jess Marie Cholesterol in HDL [Mass/Vol] 79 mg/dL Critically high 40-60 [facility] Comment on above: Performed By: #### T SH, LIVER, BMP, LIPID #### [facility] [address] [address] [address] Jess Marie Cholesterol in LDL [Mass/Vol] 172.4 mg/dL Normal [facility] Comment on above: Performed By: #### T SH, LIVER, BMP, LIPID #### [facility] [address] [place] [address] Dr. Jess Marie Cholesterol.total/Cho lesterol in HDL [Mass ratio] 3.4 {ratio} Normal [facility] Comment on above: Performed By: #### T SH, LIVER, BMP, LIPID #### [facility] [address] [place] [address] Dr. Jess Marie HDL NORMAL > or = 60 mg/dl - LO W CARDIOVASCULAR RISK <40 mg/dl - HIGH CARDIOVASCULAR RISK Normal [facility] Comment on above: Performed By: #### T SH, LIVER, BMP, LIPID #### [facility] [address] [place] [address] Dr. Jess Marie LDL CALC NORMAL SEE BELOW Normal [facility] Comment on above: Result Comment: <100 mg/dl OPTIMAL 100 - 129 mg/dl NEAR OR ABOVE OPTIMAL 130 - 159 mg/dl BORDERLINE HIGH 160 - 189 mg/dl HIGH >190 mg/dl VERY HIGH Performed By: #### T SH, LIVER, BMP, LIPID #### [facility] [address] [place] [address] Dr. Jess Marie Triglyceride [Mass/Vol] 78 mg/dL Normal <=150 [facility] Comment on above: Performed By: #### T SH, LIVER, BMP, LIPID #### [facility] [address] [place] [address] Dr. Jess Marie VLDL CALC 15.6 mg/dL Normal [facility] Comment on above: Performed By: #### T SH, LIVER, BMP, LIPID #### [facility] [address] [address] [address] Jess Marie LIVER PROFILEon 09-10-2022 Albumin [Mass/Vol] 3.9 g/dL Normal 3.4-5.0 [facility] Comment on above: Performed By: #### T SH, LIVER, BMP, LIPID #### [facility] [address] [address] [address] Jess Marie Albumin/Globulin [Mass ratio] 0.9 {ratio} Normal [facility] Comment on above: Performed By: #### T SH, LIVER, BMP, LIPID #### [facility] [address] [place] [address] Dr. Jess Marie ALP [Catalytic activity/Vol] 61 U/L Normal 46-116 [facility] Comment on above: Performed By: #### T SH, LIVER, BMP, LIPID #### [facility] [address] [place] [address] Dr. Jess Marie ALT [Catalytic activity/Vol] 25 U/L Normal 14-59 [facility] Comment on above: Performed By: #### T SH, LIVER, BMP, LIPID #### [facility] [address] [place] [address] Dr. Jess Marie AST [Catalytic activity/Vol] 27 U/L Normal 15-37 [facility] Comment on above: Performed By: #### T SH, LIVER, BMP, LIPID #### [facility] [address] [place] [address] Dr. Jess Marie BILI, CONJUGATED 0.1 mg/dL Normal 0.0-0.[address] [facility] Comment on above: Performed By: #### T SH, LIVER, BMP, LIPID #### [facility] [address] [place] [address] Dr. Jess Marie Bilirubin [Mass/Vol] 0.7 mg/dL Normal 0.2-1.0 [facility] Comment on above: Performed By: #### T SH, LIVER, BMP, LIPID #### [facility] [address] [address] [address] Jess Marie Globulin (S) [Mass/Vol] 4.2 g/dL Normal [facility] Comment on above: Performed By: #### T SH, LIVER, BMP, LIPID #### [facility] [address] [address] [address] Jess Marie Protein [Mass/Vol] 8.1 g/dL Normal 6.4-8.2 [facility] Comment on above: Performed By: #### T SH, LIVER, BMP, LIPID #### [facility] [address] [place] [address] Dr. Jess Marie PROF CHEM 8 (BAS METB)on Anion gap [Moles/Vol] 13.1 mmol/L Normal [facility] Comment on above: Performed By: #### T SH, LIVER, BMP, LIPID #### [facility] [address] [place] [address] Dr. Jess Marie Calcium [Mass/Vol] 9.6 mg/dL Normal 8.5-10.1 [facility] Comment on above: Performed By: #### T SH, LIVER, BMP, LIPID #### [facility] [address] [place] [address] Dr. Jess Marie Chloride [Moles/Vol] 105 mmol/L Normal 98-107 [facility] Comment on above: Performed By: #### T SH, LIVER, BMP, LIPID #### [facility] [address] [place] [address] Dr. Jess Marie CO2 [Moles/Vol] 28.9 mmol/L Normal 21.0-32.[address] [facility] Comment on above: Performed By: #### T SH, LIVER, BMP, LIPID #### [facility] [address] [place] [address] Dr. Jess Marie Creatinine [Mass/Vol] 0.62 mg/dL Normal 0.55-1.02 [facility] Comment on above: Performed By: #### T SH, LIVER, BMP, LIPID #### [facility] [address] [address] [address] Jess Marie EGFR-AF [place] >60 Normal >=[address] [facility] Comment on above: Performed By: #### T SH, LIVER, BMP, LIPID #### [facility] [address] [address] [address] Jess Marie EGFR-NON AF [place] >60 Normal >=60 [facility] Comment on above: Performed By: #### T SH, LIVER, BMP, LIPID #### [facility] [address] [address] [address] Jess Marie Glucose [Mass/Vol] 112 mg/dL Critically high 74-106 [facility] Comment on above: Performed By: #### T SH, LIVER, BMP, LIPID #### [facility] [address] [address] [address] Jess Marie Potassium [Moles/Vol] 5.0 mmol/L Normal 3.5-5.1 [facility] Comment on above: Result Comment: spec imen slightly hemolyzed Performed By: #### T SH, LIVER, BMP, LIPID #### [facility] [address] [address] [address] Jess Marie Sodium [Moles/Vol] 142 mmol/L Normal 136-145 [facility] Comment on above: Performed By: #### T SH, LIVER, BMP, LIPID #### [facility] [address] [address] [address] Jess Marie Urea nitrogen [Mass/Vol] 15.0 mg/dL Normal 7.0-18.0 [facility] Comment on above: Performed By: #### T SH, LIVER, BMP, LIPID #### [facility] [address] [address] [address] Jess Marie Urea nitrogen/Creatinine [Mass ratio] 24.2 mg/mg Normal [facility] Comment on above: Performed By: #### T SH, LIVER, BMP, LIPID #### [facility] [address] [address] [address] Jess Marie TSHon 09-10-2022 TSH 1.518 uIU/mL Normal 0.358-3.740 [facility] Comment on above: Performed By: #### T SH, LIVER, BMP, LIPID #### [facility] [address] [address] [address] Jess Marie US CAROTID ART BILon [...] HERSON REBOLLEDO Date: 2022-09-10 12:26 Normal [facility] XR ABD FLAT_UPon 06-10-2022 XR ABD FLAT_UP [...] HERSON REBOLLEDO Date: 2022-06-10 08:38 Normal [facility] Covid-19 PCR (CVDTBH)on 10-16 SARS-CoV-2 (COVID-19) RNA YAYA+probe Ql (Unsp spec) Not detected Normal NOT DETECTED [facility] Comment on above: Result Comment: This test is not yet approved or cleared by the [place] FDA. When there are no FDA-approved or cleared tests available, and other criteria are met, FDA can make tests available under an emergency access mechanism called an Emergency Use Authorization (EUA). The EUA for this test is supported by the Inside Sales Director of Health and Human Service's (HHS's) declaration [...] consistent with SARS-CoV-2. Performed By: #### C [facility] #### [facility] [address] [place] [address] Dr. Jess Marie Vital Signs Date Time Vital Sign Value Performing Clinician Blu arango 01-08-2023 13:49-0400 Diastolic blood pressure 94 mm[Hg] Amor NILL [facility] 01-08-2023 13:49-0400 Heart rate 80 /min Amor NILL [facility] 01-08-2023 13:49-0400 Respiratory rate 16 /min Amor NILL [facility] 01-08-2023 13:49-0400 Systolic blood pressure 136 mm[Hg] Amor NILL [facility] Encounters Encounter Date Encounter Type Care Provider Facility Start: 01-27-2023 End: 01-28-2023 ambulatory Amor MONTOYAL Facility:CD:[id number] Start: 01-08-2023 End: 01-09-2023 ambulatory [facility]ANL [facility] Start: 01-08-2023 End: 01-08-2023 Patient encounter procedure [facility] Start: 12-30-2022 ambulatory Amor HOLLY Facility :[facility] Start: 09-10-2022 End: 09-11-[address] MONI [...] Provider Fa cili 03-17-2022 SARS-CoV-2 (COVID-19 ) [id number] Amor MONTOYAL [facility] 10-05-2021 SARS-CoV-2 mRNA (mxvqtptbltp-qrmw-zsivg se) vaccine Amor MONTOYAL [facility] 03-06-2021 SARS-CoV-2 (COVID-19 ) mRNA BNT-162b2 vax Amor MONTOYAL [facility] 07-30-2020 SARS-CoV-2 (COVID-19 ) mRNA BNT-162b2 vax Amor NILL [facility] Comment on above: Result Comment: 2022: [id number] 07-09-2020 SARS-CoV-2 (COVID-19 ) mRNA BNT-162b2 vax Amor NILL [facility] Comment on above: Result Comment: 2022: [id number] Payers Date Payer Category Payer Unknown 1961 Medicare [id number] 1961 Unknown [id number] 1955 Unknown [id number] 2.16.84 [id number] 1955 Unknown [id number] 2.16.84 [id number] 1955 Unknown [id number] 2.16.84 [id number] 1955 Unknown [id number] 2.16.84 [id number] 1955 Unknown [id number] 2.16.8 [id number] 1955 Unknown [id number] 2.16.8 [id number] 1955 Unknown [id number] 2.16.8 [id number] Social History Date Type Detail Facility Start: 01-08-2023 Tobacco smoking status Never s moked tobacco (finding) [facility] Tobacco smoking status Never Gener al [facility] Sex Assigned At Female [facility] Functional Status Date Assessment Result Facility 01-08-2023 [facility] Status N/A [facility]08-2023 Note Date [...] Use:. Household tobacco (more content not included)... [facility] Comment on above: Result Comment: Elec [...] by: HERSON REBOLLEDO Date: 2022-03-12 18:14 [facility] Evaluation + Plan note Note Date & Type Note Facility Evaluation + Plan note No data available for this section [facility] Discharge instructions Note Date & Type Note Facility Hospital Discharge instructions No data available for this section [facility] Progress note Note Date & Type Note Facility Progress note No data available for this section [facility] Summary Purpose Family History No Family History Records FoundNo Family History Records Found Advance Directives No Advanced Directives Records FoundNo Advanced Directives Records Found Additional Source Comments INFORMATION SOURCE (unrecogn ized section and content) DATE CREATED AUTHOR 09/17/2022 [facility] DATE CREATED AUTHOR AUTHOR'S ORGANIZ ATION 02/17/[address] [facility] Patient Care team informatio n (unrecognized section and content) Personnel Name: MONI SIMPSON MD Address: Address: [facility] [place] [address] FOR RECORDS PERTAINING TO PATIENTS WHO ARE [...] BE BASED ON THE PRIMARY CLINICAL RECORDS. [facility] [employer] [facility]. provides no warranty or guarantee of the accuracy or completeness of information in this document.
--- NOTE | 2023-05-16 12:36 | ECG_ITS ---
[facility] Test Date: 2023-05-16 Pat Name: DONNIE BULLOCK Department: Room: - Gender: Female [employer]: : 1955 Requested By: MONI SIMPSON Order Number: [id number] Reading MD: NATHANIEL LÓPEZ Measurements Intervals [place] Rate: 80 P: 46 OR: 144 QRS: 40 QRSD: 82 T: 69 QT: 358 QTc: 394 Interpretive Statements 1100 Sinus rhythm 9110 normal ECG No previous ECG available for comparison Electronically Signed On 05-17-2023 17:38:30 EST by NATHANIEL LÓPEZ
[2023-05-16 13:04] LABS: Basophils Percent Auto 0.4 % (0.2-2.0); Eosinophils Percent Auto 0.2 % (0.9-7.0); Hematocrit 40.7 % (36.0-48.0); Hemoglobin 13.6 g/dL (12.0-16.0); Immature Granulocytes Abs Auto 0.01 10^3/uL (0.00-0.03); Immature Granulocytes Pct Auto 0.2 % (0.0-0.5); Lymphocytes Percent Auto 21.2 % (20.5-60.0); Mean Corpuscular HGB Conc 33.4 g/dL (29.9-35.2); Mean Corpuscular Volume 89.6 fL (81.0-99.0); Mean Platelet Volume 9.8 fL (9.5-13.5); Monocytes Absolute Auto 0.3 10^3/uL (0.3-0.8); Monocytes Percent Auto 6.8 % (1.7-12.0); Neutrophils Absolute Auto 3.5 10^3/uL (1.4-6.5); Neutrophils Percent Auto 71.2 % (43.0-75.0); Platelet Count 223 10^3/uL (150-450); Red Blood Count 4.54 10^6/uL (4.20-5.40); Red Cell Distribution Width 11.9 % (11.0-15.0); White Blood Count 4.9 10^3/uL (4.0-11.0)
[2023-05-16 13:05] LABS: Bilirubin Urine NEGATIVE (NEGATIVE); Blood Urine SMALL (NEGATIVE); Clarity Urine CLEAR (CLEAR); Color Urine LT. YELLOW (YELLOW); Glucose Urine UA NEGATIVE (NEGATIVE); Ketones Urine TRACE mg/dL (NEGATIVE); Leukocyte Esterase Urine MODERATE (NEGATIVE); Nitrite Urine NEGATIVE (NEGATIVE); Protein Urine NEGATIVE (NEG/TRACE); Specific Gravity Urine 1.025 (1.005-1.025); Urobilinogen Urine 0.2 EU/dL (0.2-1.0)
[2023-05-16 13:06] LABS: Urine Microscopic Indicated YES
[2023-05-16 13:08] VITALS: BP 136/77
[2023-05-16 13:14] LABS: Bacteria Urine NONE SEEN #/HPF (NONE SEEN); Cast Seen? NONE SEEN #/LPF (NONE SEEN); Crystals Seen? None Seen #/HPF (None Seen); Mucus Urine NONE SEEN (NONE SEEN); Squamous Epithelial Cell Urine RARE #/LPF (NONE/RARE); Urine Culture Indicated YES
[2023-05-16 13:18] VITALS: PULSE 83; RESP 16; O2SAT 99
[2023-05-16 13:18] LABS: Alanine Aminotransferase 22 U/L (14-59); Albumin Level 3.7 g/dL (3.4-5.0); Alkaline Phosphatase 49 U/L (46-116); Anion Gap 12.2; Aspartate Amino Transferase 20 U/L (15-37); BUN Creatinine Ratio 18.3; Bilirubin Total 0.7 mg/dL (0.2-1.0); Calcium 9.8 mg/dL (8.5-10.1); Carbon Dioxide 28.6 mmol/L (21.0-32.0); Chloride 100 mmol/L (98-107); Estimated GFR (African America >60 (>=60); Estimated GFR (Non-African Ame >60 (>=60); Globulin 3.7 g/dL; Glucose 115 mg/dL (74-106); Potassium 3.8 mmol/L (3.5-5.1); Sodium 137 mmol/L (136-145); Total Protein 7.4 g/dL (6.4-8.2)
[2023-05-16 13:21] LABS: Troponin I High Sensitivity 7.2 pg/mL (4.0-51.3)
--- NOTE | 2023-05-16 13:58 | ED_ITS ---
HPI - Anxiety General Chief Complaint: Anxiety Stated Complaint: ALTERED MENTAL STATUS Time Seen by Provider: 05/16/23 12:36 Source: patient Mode of arrival: walk-in Limitations: no limitations History of Present Illness HPI narrative: [id number] almost 2 weeks ago presenting to us after she recently was started on Xanax and brought to us by her as well his daughter after she recently has been showing some confusion at night. Yesterday she had an episode where she did not recognize her . She does remember that and she remembers sometimes sleepwalking. At this moment the patient denies any complaint except for some neck pain, That is like a band and she mentioned that she also was worried about her after he recently was diagnosed with congestive heart failure. The patient was tearful when she was talking to me privately about being worried about her . No chest pain no nausea no vomiting Related Data Home Medications Medication Instructions Recorded Confirmed wheat dextrin PO DAILY 01/14/23 Previous Rx's Medication Instructions Recorded hydroxyzine HCl 25 mg tablet 25 mg PO Q8H PRN anxiety #10 tabs 05/16/23 meloxicam 7.5 mg tablet 7.5 mg PO DAILY PRN pain #10 tabs 05/16/23 Allergies Allergy/AdvReac Type Severity Reaction Status Date / Time No Known Drug Allergies Allergy Unverified 01/14/23 11:44 Review of Systems ROS Status of ROS 10 or more systems reviewed and unremark able except as noted in history and below [facility] Medical History (Updated 05/16/23 @ 14:04 by Gabi Pitts MD) Normal colonoscopy PSVT (paroxysmal supraventricular tachycardia) ?I47.1 - Supraventricular tachycardia (ICD-10) Positive colorectal cancer screening using Cologuard test ?R19.5 - Other fecal abnormalities (ICD-10) Osteopenia ?M85.80 - Other specified disorders of bone density and structure, unspecified site (ICD-10) Orthostatic hypotension ?I95.1 - Orthostatic hypotension (ICD-10) GERD (gastroesophageal reflux disease) ?K21.9 - Gastro-esophageal reflux disease without esophagitis (ICD-10) Abdominal pain ?R10.9 - Unspecified abdominal pain (ICD-10) DALILA (generalized anxiety disorder) ?F41.1 - Generalized anxiety disorder (ICD-10) Dyslipidemia ?E78.5 - Hyperlipidemia, unspecified (ICD-10) Chronic constipation ?K59.09 - Other constipation (ICD-10) Change in bowel habits ?R19.4 - Change in bowel habit (ICD-10) Cervical disc disease ?M50.90 - Cervical disc disorder, unspecified, unspecified cervical region (ICD-10) Surgical History (Updated 01/14/23 @ 11:40 by Gabi Kim RN) H/O vaginal hysterectomy ?Z90.710 - Acquired absence of both cervix and uterus (ICD-10) H/O dilation and curettage ?Z98.890 - Other specified postprocedural states (ICD-10) Hx of tonsillectomy ?Z90.89 - Acquired absence of other organs (ICD-10) History of adenoidectomy ?Z90.89 - Acquired absence of other organs (ICD-10) History of carpal tunnel release ?Z98.890 - Other specified postprocedural states (ICD-10) Family History (Updated 01/14/23 @ 11:43 by Gabi Kim, RN) Other Alcoholism Cardiac arrhythmia Heart disease Hypertension Multiple myeloma Pancreatic adenocarcinoma Pancreatic cancer Social History (Updated 01/14/23 @ 11:43 by Gabi Kim, RN) Within the past year, how often did you have a drink containing alcohol: never Score interpretation: A score less than 3 is consistent with normal alcohol consumption. Smoking status: Never smoker Second hand tobacco smoke exposure: No Non-prescribed substance use: denies use Previous occupational history: [employer] Known occupational exposures/hazards: No Highest level of school completed/degree received: high school graduate Exam Narrative Exam Narrative: Nurses notes and vital signs reviewed and patient is not hypoxic. General: Well-appearing and in no apparent distress. Skin: Warm, dry, no pallor noted. No rash. Head: Normocephalic, atraumatic. Neck: Supple, non-tender. Eye: Pupils are equal, round and EOMI. No scleral icterus. Ears, Nose, Mouth, and Throat: TM are clear, no nasal mucosal hypertrophy. Oral mucosa is moist, no posterior oropharynx erythema, uvula is mid-line Cardiovascular: Regular Rate and Rhythm without murmur, gallop or rub. Respiratory: No accessory muscle use or respiratory distress. Lungs are clear to auscultation, no wheezing, rales or rhonchi Chest Wall: no tenderness Back: No midline thoracic or lumbar vertebral tenderness. No CVA tenderness Musculoskeletal: normal ROM, no calf or popliteal tenderness, no lower extremity edema/swelling GI: Abdomen is soft, non-distended. Normal bowel sounds. No masses appreciated. No tenderness to palpation. No rebound, guarding, or rigidity noted. Neurological: A&O x4. No cranial nerve dysfunction observed. No truncal ataxia. Moves all extremities. Sensation intact. Psychiatric: Cooperative and interactive. Normal mood and affect. Constitutional Vital Signs, click to edit/add: Last Vital Signs Temp 98.2 F 05/16/23 12:11 Pulse 83 05/16/23 13:18 Resp 16 05/16/23 13:18 BP 136/77 05/16/23 13:08 Pulse Ox 99 05/16/23 13:18 Course Vital Signs Vital signs: Vital Signs Temperature 98.2 F 05/16/23 12:11 Pulse Rate 96 H 05/16/23 12:11 Respiratory Rate 20 05/16/23 12:11 Blood Pressure 129/102 H 05/16/23 12:11 Pulse Oximetry 99 05/16/23 12:11 Temperature 98.2 F 05/16/23 12:11 Pulse Rate 83 05/16/23 13:18 Respiratory Rate 16 05/16/23 13:18 Blood Pressure 136/77 05/16/23 13:08 Pulse Oximetry 99 05/16/23 13:18 MDM - Anxiety MDM Narrative Medical decision making narrative: The patient EKG in the ER showing sinus rhythm with a heart rate of [address] elevation or depression CBC and chemistries no showed no acute significant pathology The patient is presenting to us with a typical anxiety although the confusion c ould be exacerbated by the benzodiazepine she was only taking 0.25 mg daily for the last 2 weeks and right now with as such a small dose I instructed her to take off the medication and start taking hydroxyzine the patient already have an appointment with a psychologist as well as neurology next week I spoke also with the family members explained to them the fact that her symptoms could be from confusion due to medication also Could be from anxiety or dementia and the patient will follow-up with neurology as outpatient The patient is to follow up with primary care physician in next 2-3 days or to return to the emergency department should any of the signs or symptoms worsen or new symptoms develop. The patient agrees with the following Diagnosis and Treatment plan and the patient will be discharged home. Lab Data Labs: Lab Results 05/16/23 05/16/23 Range/Units 12:10 12:27 WBC 4.9 (4.0-11.0) 10^3/uL RBC 4.54 (4.20-5.40) 10^6/uL Hgb 13.6 (12.0-16.0) g/dL Hct 40.7 (36.0-48.0) % MCV 89.6 (81.0-99.0) fL MCH 30.0 (26.7-34.0) pg MCHC 33.4 (29.9-35.2) g/dL RDW 11.9 (11.0-15.0) % Plt Count 223 (150-450) 10^3/uL MPV 9.8 (9.5-13.5) fL Neut % (Auto) 71.2 (43.0-75.0) % Lymph % (Auto) 21.2 (20.5-60.0) % [place] % (Auto) 6.8 (1.7-12.0) % Eos % (Auto) 0.2 L (0.9-7.0) % Baso % (Auto) 0.4 (0.2-2.0) % Neut # (Auto) 3.5 (1.4-6.5) 10^3/uL Lymph # (Auto) 1.0 L (1.2-3.8) 10^3/uL [place] # (Auto) 0.3 (0.3-0.8) 10^3/uL Eos # (Auto) 0.0 (0.0-0.7) 10^3/uL Baso # (Auto) 0.0 (0.0-0.1) 10^3/uL Abs Immat Gran (auto) 0.01 (0.00-0.03) 10^3/uL Imm/Tot Granulo (auto) 0.2 (0.0-0.5) % Sodium 137 (136-145) mmol/L Potassium 3.8 (3.5-5.1) mmol/L Chloride 100 (98-107) mmol/L Carbon Dioxide 28.6 (21.0-32.0) mmol/L Anion Gap 12.2 BUN 13.0 (7.0-18.0) mg/dL Creatinine 0.71 (0.55-1.02) mg/dL Est GFR ( Amer) >60 (>=60) Est GFR (Non-Af Amer) >60 (>=60) BUN/Creatinine Ratio 18.3 Glucose 115 H (74-106) mg/dL Calcium 9.8 (8.5-10.1) mg/dL Total Bilirubin 0.7 (0.2-1.0) mg/dL AST 20 (15-37) U/L ALT 22 (14-59) U/L Alkaline Phosphatase 49 (46-116) U/L Troponin I High Sens 7.2 (4.0-51.3) pg/mL Total Protein 7.4 (6.4-8.2) g/dL Albumin 3.7 (3.4-5.0) g/dL Globulin 3.7 g/dL Albumin/Globulin Ratio 1.0 Urine Color Lt. yellow (YELLOW) Urine Clarity Clear (CLEAR) Urine pH 6.0 (5.0-9.0) Ur Specific [place] 1.025 (1.005-1.025) Urine Protein Negative (NEG/TRACE) mg/dL Urine Glucose (UA) Negative (NEGATIVE) mg/dL Urine Ketones Trace A (NEGATIVE) mg/dL Urine Occult Blood Small A (NEGATIVE) Urine Nitrite Negative (NEGATIVE) Urine Bilirubin Negative (NEGATIVE) Urine Urobilinogen 0.2 (0.2-1.0) EU/dL Ur Leukocyte Esterase Moderate A (NEGATIVE) Urine RBC 2-5 A (0-2) #/HPF Urine WBC 5-10 A (NONE SEEN) #/HPF Ur Squamous Epith Cells Rare (NONE/RARE) #/LPF Urine Crystals None seen (None Seen) #/HPF Urine Bacteria None seen (NONE SEEN) #/HPF Urine Casts None seen (NONE SEEN) #/LPF Urine Mucus None seen (NONE SEEN) Ur Culture Indicated? Yes Discharge Plan Discharge Chief Complaint: Anxiety Clinical Impression: Anxiety Neck sprain Qualifiers: Encounter type: initial encounter Qualified Code(s): S13.9XXA - Sprain of joints and ligaments of unspecified parts of neck, initial encounter Patient Disposition: Home, Self-Care Time of Disposition Decision: 13:58 Prescriptions / Home Meds: New hydroxyzine HCl 25 mg tablet 25 mg PO Q8H PRN (Reason: anxiety) Qty: 10 0RF meloxicam 7.5 mg tablet 7.5 mg PO DAILY PRN (Reason: pain ) Qty: 10 0RF Discontinued alprazolam 0.25 mg tablet 0.125 mg PO Q24H No Action wheat dextrin [Benefiber Healthy Shape] PO DAILY Instructions: Anxiety (ED) Stand Alone Forms: Portal Instructions Referrals: Remigio Hoyos MD [Primary Care Provider] - 1 week
== END 2023-05-16 14:12 | disposition home or self-care (01) ==
PROVIDERS: Emergency Provider Emergency Medicine; PCP Family Medicine
DX: F41.1 Generalized anxiety disorder (principal); M54.2 Cervicalgia; K21.9 Gastro-esophageal reflux disease without esophagitis; E78.5 Hyperlipidemia, unspecified; M50.90 Cervical disc disorder, unspecified, unspecified cervical region; Z90.710 Acquired absence of both cervix and uterus; Z86.16 Personal history of COVID-19
CPT/HCPCS: 36415; 80053; 81001; 84484; 85025; 87086; 93005; 99284

== ENCOUNTER 2023-05-23 13:40 | Emergency (ER) | payer MEDICARE, OTHER, SELFPAY ==
--- OUTSIDE RECORDS SUMMARY | 2023-05-23 13:47 | XMS_ITS | CCD ---
Author Name Unknown Address [address] [place] [address] [address] [place] [address] Organization [facility] Care Team Providers Care Scientific Systems Analyst Name Role Phone NADURIELR, DR REMIGIO Richardson Attending Unavailable NADERER, DR REMIGIO Richardson Admitting Unavailable NADERER, DR REMIGIO Richardson Primary Care Unavailable NADERER, DR REMIGIO Richardson Consulting Unavailable NADERER, DR REMIGIO Richardson Admitting Unavailable NADERER, DR REMIGIO Richardson Primary Care Unavailable ZIEBER, DR HERSON Pollock Consulting Unavailable NADERER, DR REMIGIO Richardson Attending Unavailable NADERER, DR REMIGIO Richardson Consulting Unavailable NADERER, DR REMIGIO Richardson Admitting Unavailable NADERER, DR REMIGIO Richardson Primary Care Unavailable ZIEBER, DR HERSON Pollock Consulting Unavailable NADERER, DR REMIGIO Richardson Attending Unavailable NADERER, DR REMIGIO Richardson Consulting Unavailable NADERER, DR REMIGIO Richardson Admitting Unavailable NADERER, DR REMIGIO Richardson Primary Care Unavailable ZIEBER, DR HERSON Pollock Consulting Unavailable NADERER, DR REMIGIO Richardson Attending Unavailable NADERER, DR REMIGIO Richardson Consulting Unavailable NADERER, REMIGIO Primary Care Physician Amor HOLLY Attending Unavailable NADERER, REMIGIO Referring Unavailable NILLAmor Attending Unavailable NADERER, REMIGIO Referring Unavailable NILLAmor Attending Unavailable NadRemigio campos MD Primary Care Unavail vinay Gilbert MD, Anuj Orta Attending Unav ailable Medications Current Medications Medication Drug Class(es) Dates [...] 3 Episodic Other aftercare (1 source) Other intermediate designer (current) drug therapy; Translations: [OTH SENIOR SOLUTIONS ENGINEER CURRENT DRUG THERAPY] Onset: 3 Episodic Other [...] Test Name Value Interpretation Reference Range Facility .Fentanyl Scrn wo Conf,Uron 05-20-2023 Ur Fentanyl Scrn Negative Normal NEG <1.0 [facility] Comment on above: Performed By: #### C [id number] #### [address] [address] Ur Fentanyl Scrn Qnt 0.10 ng/mL Normal <=0.99 [facility] Comment on above: Performed By: #### C [id number] #### [address] [address] .eGFRon 05-20-2023 GFR/1.73 sq M.predicted MDRD (S/P/Bld) [Vol rate/Area] mL/min/{1.73_m2} Normal >=60 [facility] Comment on above: Result Comment: [facility] have implemented the eGFR calculation approach that does not have a coefficient for race and that conforms to the NKF-ASN Task Force Recommendations. Stages of Chronic Kidney Disease GFR Stage 3a Mild to moderate loss of kidney function 59 to 45 Stage 3b Moderate to severe loss of kidney function 44 to 33 Stage 4 Severe loss of kidney function 29 to 15 Stage 5 Kidney failure Less than 15 GFR calculated using the CKD-Epi Creatinine Equation (2020): eGFR = 142 X min(SCr/?, 1)? X max(SCr /?, 1)-1.200 X 0.9938Age X 1.012 [if female] Abbreviations/Units: eGFR (estimated glomerular filtration rate) = mL/min/1.73 m2 SCr (standardized serum creatinine) = mg/dL ? = 0.7 (females) or 0.9 (males) ? = -0.241 (females) or -0.302 (males) min = indicates the minimum of SCr/? or 1 max = indicates the maximum of SCr/? or 1 Age = years Performed By: #### E GFR #### [address] [address] CBC w/ Diffon 05-20-2023 Erythrocyte distribution width (RBC) [Ratio] 13.2 % Normal 11.6-14.8 [facility] Comment on above: Performed By: #### C BC #### [place] [id number] Hematocrit (Bld) [Volume fraction] 40.9 % Normal 36.0-46.0 [facility] Comment on above: Performed By: #### C BC #### [place] [id number] Hemoglobin (Bld) [Mass/Vol] 13.9 g/dL Normal 12.0-16.0 [facility] Comment on above: Performed By: #### C BC #### [address] [address] MCH (RBC) [Entitic mass] 30.1 pg Normal 27.0-35.0 [facility] Comment on above: Performed By: #### C BC #### [address] [address] MCHC 34.1 % Normal 31.0-37.0 [facility] Comment on above: Performed By: #### C BC #### [address] [address] MCV (RBC) [Entitic vol] 88.2 fL Normal 80.0-100.0 [facility] Comment on above: Performed By: #### C BC #### [address] [address] Platelet 250 x10*3/mcL Normal 150-450 [facility] Comment on above: Performed By: #### C BC #### [address] [place] [address] Platelet mean volume (Bld) [Entitic vol] 7.6 fL Normal 6.7-10.6 [facility] Comment on above: Performed By: #### C BC #### [address] [place] [address] RBC 4.63 x10*6/mcL Normal 3.80-5.20 [facility] Comment on above: Performed By: #### C BC #### [address] [address] WBC 5.6 x10*3/mcL Normal 4.5-11.0 [facility] Comment on above: Performed By: #### C BC #### [address] [address] CMPon 05-20-2023 Albumin [Mass/Vol] 4.5 g/dL Normal 3.2-4.9 [facility] Comment on above: Performed By: #### C OMP #### [address] [address] Albumin/Globulin [Mass ratio] 1.4 {ratio} Normal 1.1-2.2 [facility] Comment on above: Performed By: #### C OMP #### [address] [address] Alk Phos 47 IU/L Normal 32-91 [facility] Comment on above: Performed By: #### C OMP #### [address] [address] ALT [Catalytic activity/Vol] 18 U/L Normal 14-54 [facility] Comment on above: Performed By: #### C OMP #### [address] [address] Anion gap [Moles/Vol] 14 mmol/L Normal 7-17 [facility] Comment on above: Performed By: #### C OMP #### [address] [address] AST [Catalytic activity/Vol] 28 U/L Normal 15-41 [facility] Comment on above: Performed By: #### C OMP #### [address] [address] Bili Total 0.8 mg/dL Normal 0.3-1.2 [facility] Comment on above: Performed By: #### C OMP #### [address] [address] Calcium [Mass/Vol] 10.1 mg/dL Normal 8.5-10.3 [facility] Comment on above: Performed By: #### C OMP #### [address] [address] Chloride [Moles/Vol] 100 mmol/L Normal 98-110 [facility] Comment on above: Performed By: #### C OMP #### [address] [address] CO2 [Moles/Vol] 27 mmol/L Normal 22-32 [facility] Comment on above: Performed By: #### C OMP #### [address] [address] Creatinine [Mass/Vol] 0.96 mg/dL Normal 0.44-1.03 [facility] Comment on above: Performed By: #### C OMP #### [address] [address] Glucose [Mass/Vol] 116 mg/dL High 70-99 [facility] Comment on above: Performed By: #### C OMP #### [address] [address] Potassium [Moles/Vol] 4.0 mmol/L Normal 3.4-4.8 [facility] Comment on above: Performed By: #### C OMP #### [address] [address] Protein [Mass/Vol] 7.8 g/dL Normal 6.5-8.1 [facility] Comment on above: Performed By: #### C OMP #### [facility] [address] [place] [address] Sodium [Moles/Vol] 137 mmol/L Normal 133-142 [facility] Comment on above: Performed By: #### C OMP #### [facility] [address] [place] [address] Urea nitrogen [Mass/Vol] 13 mg/dL Normal 8-26 [facility] Comment on above: Performed By: #### C OMP #### [facility] [address] [place] [address] Urea nitrogen/Creatinine [Mass ratio] 13.5 mg/mg Normal 10.0-20.0 [facility] Comment on above: Performed By: #### C OMP #### [place] [id number] [place] [address] CT Brain w/o Contraston CT Brain w/o Contrast CT Brain w/o Contrast: 05/20/2023 2:33 PM EST HISTORY: Other (please specify), AMS worsening anxiety, memory problems since covid 19 dx in April TECHNIQUE: CT scan brain without IV contrast was obtained. COMPARISON: None. FINDINGS: There is a normal sulcal pattern and gyral configuration. No mass or mass effect or intracranial hemorrhage is seen. CSF spaces are normal in size and configuration. Cerebellum and brainstem appear grossly normal. Mastoid and ethmoid air cells are well-developed and pneumatized. The visualized paranasal sinuses appear normal. IMPRESSION: No evidence of intracranial hemorrhage or other acute finding. Radiation Dose Estimate: CTDI(mGy):0.369119 / / / kVp:120.102813 / mAs:0.219834 / / / DLP(mGy-cm):5.224979W maureen Part: Head CTDI(mGy):44.204408 / / / kVp:120.931329 / mAs:182.329272 / / / DLP(mGy-cm):813.71040 7Body Part: Head Final Dictated by: Tremayne Butler MD Dictated DT/TM: 05.20.2023 2:48 pm Signed by: Tremayne Butler MD Signed (Electronic Signature): 05.20.2023 2:50 pm (If Report Is Signed, Electronically Signed in Other Vendor System) Normal [facility] Diff Autoon 05-20-2023 Baso Absolute 0.0 x10*3/mcL Normal 0.0-0.2 [facility] Comment on above: Performed By: #### . Automated Diff #### [address] [address] Basophils/100 WBC (Bld) 0.5 % Normal 0.0-1.5 [facility] Comment on above: Performed By: #### . Automated Diff #### [address] [address] Eos Absolute 0.0 x10*3/mcL Normal 0.0-0.4 [facility] Comment on above: Performed By: #### . Automated Diff #### [address] [address] Eosinophils/100 WBC (Bld) 0.4 % Normal 0.0-5.4 [facility] Comment on above: Performed By: #### . Automated Diff #### [address] [address] Lymph Absolute 1.3 x10*3/mcL Normal 1.0-4.8 [facility] Comment on above: Performed By: #### . Automated Diff #### [address] [address] Lymphocytes/100 WBC (Bld) 22.8 % Low 27.2-40.8 [facility] Comment on above: Performed By: #### . Automated Diff #### [address] [address] [place] Absolute 0.3 x10*3/mcL Normal 0.1-1.1 [facility] Comment on above: Performed By: #### . Automated Diff #### [address] [address] Monocytes/100 WBC (Bld) 5.2 % Normal 3.7-11.9 [facility] Comment on above: Performed By: #### . Automated Diff #### [address] [address] Neutro Absolute 4.0 x10*3/mcL Normal 1.8-7.7 [facility] Comment on above: Performed By: #### . Automated Diff #### [address] [address] Neutro Auto 71.1 % High 47.2-70.8 [facility] Comment on above: Performed By: #### . Automated Diff #### [address] [address] ED Clinical Summaryon 2023 ED Clinical Summary [address] [id number] ED Clinical Summary Person Information Name: Yoana Bullock/[facility] Age: 67 Years : 1955 Sex: Female PCP: Remigio Simpson MD Marital Status: Phone: Race: White Ethnicity: Not or Language: Portuguese Visit Reason: Psychiatric screening exam; psych screen Acuity: 2 Enc Type: Emergency Med Service: Emergency Medicine Arrival: 05/20/2023 13:12:08 Discharge: 05/20/2023 17:38:00 LOS: 000 04:26 Checkin: 05/20/2023 13:12:08 Checkout: 05/20/2023 17:38:00 Dispo Type: Home or Self Care Address: [address] [place] [address] [address] A[place] [id number] Provider Notes: Diagnosis: 1:Encounter for medical screening examination Problems No Problems Documented Smoking Status: Smoking Status Never (less than 100 in lifetime) Functional Status: Sensory Deficits: History of Falls: Mobility Assistance Prior to Admission: ADLs: Current Level of Assistance for Self-Care/Mobility: Cognitive Status: Allergies No Known Allergies Laboratory or Other Results This Visit (last charted value for your 05/20/2023 visit) Hematology 05/20/2023 3:21 PM WBC: 5.6 x10 RBC: 4.63 x10 Neutro Auto: 71.1 % -- Normal range between ( 47.2 and 70.8 ) Lymph Auto: 22.8 % -- Normal range between ( 27.2 and 40.8 ) [place] Auto: 5.2 % -- Normal range between ( 3.7 and 11.9 ) Eos Auto: 0.4 % -- Normal range between ( 0.0 and 5.4 ) Basophil Auto: 0.5 % -- Normal range between ( 0.0 and 1.5 ) Baso Absolute: 0.0 x10 MCV: 88.2 fL -- Normal range between ( 80.0 and 100.0 ) MCHC: 34.1 % -- Normal range between ( 31.0 and 37.0 ) Lymph Absolute: 1.3 x10 Hct: 40.9 % -- Normal range between ( 36.0 and 46.0 ) [place] Absolute: 0.3 x10 MCH: 30.1 pg -- Normal range between ( 27.0 and 35.0 ) Neutro Absolute: 4.0 x10 Hgb: 13.9 g/dL -- Normal range between ( 12.0 and 16.0 ) Mean Platelet Volume: 7.6 fL -- Normal range between ( 6.7 and 10.6 ) Platelet: 250 x10 Eos Absolute: 0.0 x10 RDW: 13.2 % -- Normal range between ( 11.6 and 14.8 ) Urinalysis 05/20/2023 1:25 PM UA Spec Grav: 1.013 -- Normal range between ( 1.003 and 1.035 ) UA pH: 7.0 Chemistry 05/20/2023 1:25 PM Creatinine Lvl: 0.96 mg/dL -- Normal range between ( 0.44 and 1.03 ) BUN: 13 mg/dL -- Normal range between ( 8 and 26 ) Glucose Lvl: 116 mg/dL -- Normal range between ( 70 and 99 ) Potassium Lvl: 4.0 mmol/L -- Normal range between ( 3.4 and 4.8 ) AST: 28 IU/L -- Normal range between ( 15 and 41 ) ALT: 18 IU/L -- Normal range between ( 14 and 54 ) Sodium Lvl: 137 mmol/L -- Normal range between ( 133 and 142 ) Calcium Lvl: 10.1 mg/dL -- Normal range between ( 8.5 and 10.3 ) Albumin Lvl: 4.5 g/dL -- Normal range between ( 3.2 and 4.9 ) Total Protein: 7.8 g/dL -- Normal range between ( 6.5 and 8.1 ) Bili Total: 0.8 mg/dL -- Normal range between ( 0.3 and 1.2 ) Alk Phos: 47 IU/L -- Normal range between ( 32 and 91 ) Chloride: 100 mmol/L -- Normal range between ( 98 and 110 ) CO2: 27 mmol/L -- Normal range between ( 22 and 32 ) Anion Gap: 14 -- Normal range between ( 7 and 17 ) Estimated GFR: >60 mL/min/1.73m? BUN Crea Ratio: 13.5 -- Normal range between ( 10.0 and 20.0 ) AG Ratio: 1.4 -- Normal range between ( 1.1 and 2.2 ) Ur Creatinine Tox Scrn: 100.2 mg/dL Toxicology 05/20/2023 1:25 PM Ur PCP Scrn: Negative ng/mL Ur Opiate Scrn: Negative ng/mL Ur Methadone Scn: Negative ng/mL Ur Cannab Scrn: Negative ng/mL Ur Amph Scrn: Negative ng/mL Ur Benzodia Scrn: Negative ng/mL Ur Gabriela Scrn: Negative ng/mL Ur Cocaine Scrn: Negative ng/mL Ur Oxy Screen: Negative ng/mL Ur Fentanyl Scrn: Negative ng/mL Ethanol, Plasma: <10 mg/dL Computed Tomography 05/20/2023 2:[address] Brain w/o Contrast: CT Brain w/o Contrast Measurements: Height: Weight: 69.5 kg Blood Pressure: /85 mmHg BMI: Procedures No Procedures Documented Immunizations No Immunizations Documented This Visit Final Med List: No Medications Documented Care Team Members: Attending Physician: Anuj Gilbert MD Consulting Physician: Referring Physician: Provider Role Assigned Unassigned Anuj Gilbert MD ED Provider 05/20/2023 13:39:39 Sherri Hernandez MD ED Provider 05/20/2023 15:28:08 Follow up: With: Address: When: [facility] With: Address: When: Remigio Simpson [address] [place] [phone] Business (1) Within 1 week Discharge Orders: Discharge Patient 05/20/23 17:30:00 EST, Discharge to Home, Self Patient Education Information: Anxiety Reaction [facility] Poison Help line: . [facility] Hotline: [place] Tobacco Quit Line: [place], [place]) [address]: [phone] [place], [place]) [address]: (more content not included)... Normal [facility] ED Note-Nursingon 05-20-2023 ED Note-Nursing Patients reports patient had covid 04/21/23 and most of her symptoms are stemming from that; increased memory loss, confusion, weight loss, panic attacks. Patient did take Paxlovid. Patient was seen at [facility] on Wednesday and taken off Xanax as they felt her hallucinations could be from that, and they prescribed hydroxizine. Patient appears anxious upon gambreler and tearful at times. Patient denies SI and HI but is frustrated that she is having these issues and is not her normal self. Electronically signed by Odalys Munroe 05/20/23 14:33 EST Normal [facility] ED Note-Physicianon 05-20-19 ED Note-Physician Chief Complaint pt was sent over by her therapist for a screening. Anxiety has been increasing as well as visual hallucinations Attending Note Vitals & Measurements T: 36.7 ?C (Oral) HR: 80 (Peripheral) RR: 15 BP: 161/85 SpO2: 97% HT: 165.1 cm WT: 69.5 kg (Dosing) Lab Results Automated Hematology LATEST RESULTS WBC 05/20/23 15:21 5.6 RBC 05/20/23 15:21 4.63 Hgb 05/20/23 15:21 13.9 Hct 05/20/23 15:21 40.9 MCV 05/20/23 15:21 88.2 MCH 05/20/23 15:21 30.1 MCHC 05/20/23 15:21 34.1 RDW 05/20/23 15:21 13.2 Platelet 05/20/23 15:21 250 Mean Platelet Volume 05/20/23 15:21 7.6 Neutro Auto 05/20/23 15:21 71.1 High Lymph Auto 05/20/23 15:21 22.8 Low [place] Auto 05/20/23 15:21 5.2 Eos Auto 05/20/23 15:21 0.4 Basophil Auto 05/20/23 15:21 0.5 Neutro Absolute 05/20/23 15:21 4.0 Lymph Absolute 05/20/23 15:21 1.3 [place] Absolute 05/20/23 15:21 0.3 Eos Absolute 05/20/23 15:21 0.0 Baso Absolute 05/20/23 15:21 0.0 Routine Chemistry LATEST RESULTS Sodium Lvl 05/20/23 13:25 137 Potassium Lvl 05/20/23 13:25 4.0 Chloride 05/20/23 13:25 100 CO2 05/20/23 13:25 27 Anion Gap 05/20/23 13:25 14 Glucose Lvl 05/20/23 13:25 116 High BUN 05/20/23 13:25 13 Creatinine Lvl 05/20/23 13:25 0.96 Estimated GFR 05/20/23 13:25 >60 BUN Crea Ratio 05/20/23 13:25 13.5 Bili Total 05/20/23 13:25 0.8 Alk Phos 05/20/23 13:25 47 AST 05/20/23 13:25 28 ALT 05/20/23 13:25 18 Total Protein 05/20/23 13:25 7.8 Albumin Lvl 05/20/23 13:25 4.5 AG Ratio 05/20/23 13:25 1.4 Calcium Lvl 05/20/23 13:25 10.1 Random Urine Chemistry LATEST RESULTS Ur Creatinine Tox Scrn 05/20/23 13:25 100.2 Serum Toxicology LATEST RESULTS Ethanol, Plasma 05/20/23 13:25 <10 Urine Toxicology LATEST RESULTS Ur Amph Scrn 05/20/23 13:25 Negative Ur Gabriela Scrn 05/20/23 13:25 Negative Ur Benzodia Scrn 05/20/23 13:25 Negative Ur Cannab Scrn 05/20/23 13:25 Negative Ur Cocaine Scrn 05/20/23 13:25 Negative Ur Methadone Scn 05/20/23 13:25 Negative Ur Oxy Screen 05/20/23 13:25 Negative Ur Opiate Scrn 05/20/23 13:25 Negative Ur PCP Scrn 05/20/23 13:25 Negative Ur Fentanyl Scrn 05/20/23 13:25 Negative UA Macroscopic LATEST RESULTS UA Spec Grav 05/20/23 13:25 1.013 UA pH 05/20/23 13:25 7.0 Diagnostic Results Computerized Tomagraphy CT Brain w/o Contrast 05/20/23 14:50:13 IMPRESSION: No evidence of intracranial hemorrhage or other acute finding. Signed By: Carrie ROGERS, Tremayne Mar [place] , Sherri Wiggins [facility] ED Note-Physician Chief Complaint pt was sent over by her therapist for a screening. Anxiety has been increasing as well as visual hallucinations History of Present Illness 67-year-old female who does have a history of anxiety states that symptoms started after she was diagnosed with COVID-19 in April 2023 on the sixth since then the patient has had significant weight loss up to 25 pounds in less than a month. The endorses that she is having some degree of hallucinations and worsening social anxiety. She has endorsed having some tension headaches and neck pain for which she has been prescribed meloxicam. She is also taking hydroxyzine she was taking Xanax but they thought that due to the side effects of hallucinations that she should be changed from Xanax. She was prescribed Paxlovid when she was diagnosed with COVID. The has endorse strange behaviors she was walking around outside of the home and her nightgown the other evening and this is very bizarre and odd behavior for her. The patient herself is very tearful she cries quite easily she has endorsed some changes in her memory recently. Physical Exam Physical Examination General: Well appearing, speaking in full sentences Skin: No skin rash Head: Normocephalic/ atraumatic Neck: Supple Eye: EOMI, normal conjunctiva ENT: Moist oral mucosa, nares patent Cardiovascular: RRR, 2+ pulses radial Respiratory: Non labored Back: Normal ROM Musculoskeletal: Moves arms and legs and crosses midline Gastrointestinal: non distended Neurological: A&O x 4, no focal neuro deficits Psych: Appropriate behavior, tearful Vitals & Measurements T: 36.7 ?C (Oral) HR: 80 (Peripheral) RR: 15 BP: 161/85 SpO2: 97% HT: 165.1 cm WT: 69.5 kg (Dosing) Additional Vitals No qualifying data available. Procedure No qualifying data available. ASA Documentation Medical Decision Making Well-appearing 67-year-old female that has acute change in her mental status and mental health over the last 3 weeks This is secondary to a COVID-19 diagnosis she was also prescribed Paxlovid She has been on Xanax for anxiety apparently she has had several episodes of severe panic and anxiety she is also been found walking outside of her home at night in cold weather they also elicit a history that she could not recognize her 1 day and she accused her of being a stranger that was wearing her 's wedding ring The patient is recounting a lot of this history she is quite tearful when she recounts this she states that it is embarrassing for her that she is having these memory problems Differential diagnosis is quite broad I have low suspicion for infectious causes since this is going on for 3 weeks there is no fever her labs are unremarkable this could represent early dementia, vascular dementia, prion disease, will obtain a CT head and have high school social studies tutor speak with the patient she was sent in by her therapist that she describes it Sign out to Dr. Hernandez at the end of my shift for disposition and high school social studies tutor recommendation Assessment/Plan Psychiatric screening exam (Complaint of) Orders: CT Brain w/o Contrast Refresh vitals and sections below: Problem List/Past Medical History Ongoing No qualifying data Historical No qualifying data Medications Inpatient No active inpatient medications Home No active home medications Allergies No active allergies Lab Results Routine Chemistry LATEST RESULTS Sodium Lvl 05/20/23 13:25 137 Potassium Lvl 05/20/23 13:25 4.0 Chloride 05/20/23 13:25 100 CO2 05/20/23 13:25 27 Anion Gap 05/20/23 13:25 14 Glucose Lvl 05/20/23 13:25 116 High BUN 05/20/23 13:25 13 Creatinine Lvl 05/20/23 13:25 0.96 Estimated GFR 05/20/23 13:25 >60 BUN Crea Ratio 05/20/23 13:25 13.5 Bili Total 05/20/23 13:25 0.8 Alk Phos 05/20/23 13:25 47 AST 05/20/23 13:25 28 ALT 05/20/23 13:25 18 Total Protein 05/20/23 13:25 7.8 Albumin Lvl 05/20/23 13:25 4.5 AG Ratio 05/20/23 13:25 1.4 Calcium Lvl 05/20/23 13:25 10.1 Random Urine Chemistry LATEST RESULTS Ur Creatinine Tox Scrn 05/20/23 13:25 100.2 Serum Toxicology LATEST RESULTS Ethanol, Plasma 05/20/23 13:25 <10 Urine Toxicology LATEST RESULTS Ur Amph Scrn 05/20/23 13:25 Negative Ur Gabriela Scrn 05/20/23 13:25 Negative Ur Benzodia Scrn 05/20/23 13:25 Negative Ur Cannab Scrn 05/20/23 13:25 Negative Ur Cocaine Scrn 05/20/23 13:25 Negative Ur Methadone Scn 05/20/23 13:25 Negative Ur Oxy Screen 05/20/23 13:25 Negative Ur Opiate Scrn 05/20/23 13:25 Negative Ur PCP Scrn 05/20/23 13:25 Negative Ur Fentanyl Scrn 05/20/23 13:25 Negative UA Macroscopic LATEST RESULTS UA Spec Grav 05/20/23 13:25 1.013 UA pH 05/20/23 13:25 7.0 Diagnostic Results Electronically signed by Ofelia ROGERS, Anuj Orta / (more content not included)... Normal [facility] Ethanolon 05-20-2023 Ethanol, Plasma <10 Normal <=9 [facility] Comment on above: Result Comment: To c onvert mg/dL to g/dL, divide result by 1,000. Legal limit of intoxication is 80 mg/dL (0.08 g/dL). Performed By: #### A #### [place] [address] [address] UDS Compon 05-20-2023 Creatinine [Mass/Vol] 100.2 mg/dL Normal [facility] Comment on above: Performed By: #### C [id number] #### [address] [address] Ur Amph Scrn Negative Normal NEG = <1000 [facility] Comment on above: Performed By: #### C [id number] #### [address] [address] Ur Gabriela Scrn Negative Normal NEG = <200 [facility] Comment on above: Performed By: #### C [id number] #### [address] [address] Ur Benzodia Scrn Negative Normal NEG = <200 [facility] Comment on above: Performed By: #### C [id number] #### [address] [address] Ur Cannab Scrn Negative Normal NEG = <50 [facility] Comment on above: Performed By: #### C [id number] #### [address] [address] Ur Cocaine Scrn Negative Normal NEG = <300 [facility] Comment on above: Performed By: #### C [id number] #### [address] [address] Ur Methadone Scn Negative Normal NEG = <300 [facility] Comment on above: Performed By: #### C [id number] #### [address] [address] Ur Opiate Scrn Negative Normal NEG = <300 [facility] Comment on above: Performed By: #### C [id number] #### [address] [address] Ur Oxy Screen Negative Normal NEG = <100 [facility] Comment on above: Performed By: #### C [id number] #### [address] [address] Ur Oxy Scrn Qnt 9 ng/mL Normal <=99 [facility] Comment on above: Performed By: #### C [id number] #### [address] [address] Ur PCP Scrn Negative Normal NEG = <25 [facility] Comment on above: Performed By: #### C [id number] #### [address] [address] UA pH 7.0 Normal 4.5 - 7.8 [facility] Comment on above: Performed By: #### C [id number] #### [address] [address] UA Spec Grav 1.013 Normal 1.003-1.035 [facility] Comment on above: Performed By: #### C [id number] #### [address] [address] Outside Colonoscopyon 2022 Outside Colonoscopy [id number]. [id number]:127 Normal [facility] Reminderson 01-28-2023 Reminders - From: Sarah Griffiths LPN To: N - Clinical; Sent: 01/28/2023 13:00:59 EDT Show up: 12/27/2032 07:00:00 EDT Subject: colonoscopy recall Due Date/Time: 01/27/2033 07:00:00 EDT Reminder/Recall Patient due for screening colonoscopy 01/27/2033. Normal [facility] Consent for Procedure/Surger yon 01-12-2023 Consent for Procedure/Surgery [id number] .[id number]:127 Normal [facility] Ambulatory Visit Summaryon 0 01-08-2023 Ambulatory Visit Summary YOANA BULLOCK :1955 Visit Date:01/08/2023 Ambulatory Visit Instructions Your Care Team Attending Physician - BERKLEY ROGERS, Amor Pollock Primary Care Physician - CALVIN ROGERS, REMIGIO Referring Physician - REMIGIO SIMPSON MD This Is Your Medications List [...] longer receiving treatment for. Carpal tunnel Normal [facility] RAD - CT Reporton 01-07-2023 RAD - CT Report [id number] .[id number]:127 Normal [facility] Physician Referralon 023 Physician Referral [id number] .[id number]:127 Normal [facility] CBC AUTO DIFFon 09-10-2022 BASO # 0.0 103/ul Normal 0.0-0.1 [facility] Comment on above: Performed By: #### C BC #### [facility] [address] [address] [address] Jess Marie Basophils/100 WBC (Bld) 0.4 % Normal 0.2-2.0 [facility] Comment on above: Performed By: #### C BC #### [facility] [address] [place] [address] Dr. Jess Marie EO # 0.0 103/ul Normal 0.0-0.7 [facility] Comment on above: Performed By: #### C BC #### [facility] [address] [place] [address] Dr. Jess Marie Eosinophils/100 WBC (Bld) 0.4 % Critically low 0.9-7.0 [facility] Comment on above: Performed By: #### C BC #### [facility] [address] [place] [address] Dr. Jess Marie Erythrocyte distribution width (RBC) [Ratio] 12.5 % Normal 11.0-15.0 [facility] Comment on above: Performed By: #### C BC #### [facility] [address] [place] [address] Dr. Jess Marie Hematocrit (Bld) [Volume fraction] 43.1 % Normal 36.0-48.0 [facility] Comment on above: Performed By: #### C BC #### [facility] [address] [place] [address] Dr. Jess Marie Hemoglobin (Bld) [Mass/Vol] 14.0 g/dL Normal 12.0-16.0 [facility] Comment on above: Performed By: #### C BC #### [facility] [address] [place] [address] Dr. Jess Marie IG # 0.01 10e3/ul Normal 0.00-0.03 [facility] Comment on above: Performed By: #### C BC #### [facility] [address] [place] [address] Dr. Jess Marie IG % 0.2 % Normal 0.0-0.5 [facility] Comment on above: Performed By: #### C BC #### [facility] [address] [place] [address] Dr. Jess Marie LYMPH # 1.4 103/ul Normal 1.2-3.8 [facility] Comment on above: Performed By: #### C BC #### [facility] [address] [place] [address] Dr. Jess Marie Lymphocytes/100 WBC (Bld) 26.8 % Normal 20.5-60.0 [facility] Comment on above: Performed By: #### C BC #### [facility] [address] [place] [address] Dr. Jess Marie MANUAL DIFF REQ NO Normal [facility] Comment on above: Performed By: #### C BC #### [facility] [address] [place] [address] Dr. Jess Marie MCH (RBC) [Entitic mass] 29.7 pg Normal 26.7-34.0 [facility] Comment on above: Performed By: #### C BC #### [facility] [address] [place] [address] Dr. Jess Marie MCHC (RBC) [Mass/Vol] 32.5 g/dL Normal 29.9-35.2 [facility] Comment on above: Performed By: #### C BC #### [facility] [address] [place] [address] Dr. Jess Marie MCV (RBC) [Entitic vol] 91.3 fL Normal 81.0-99.0 [facility] Comment on above: Performed By: #### C BC #### [facility] [address] [place] [address] Dr. Jess Marie MONO # 0.3 103/ul Normal 0.3-0.8 [facility] Comment on above: Performed By: #### C BC #### [facility] [address] [place] [address] Dr. Jess Marie Monocytes/100 WBC (Bld) 5.2 % Normal 1.7-12.0 [facility] Comment on above: Performed By: #### C BC #### [facility] [address] [place] [address] Dr. Jess Marie NEUT # 3.5 103/ul Normal 1.4-6.5 [facility] Comment on above: Performed By: #### C BC #### [facility] [address] [address] [address] Jess Marie Neutrophils/100 WBC (Bld) 67.0 % Normal 43.0-75.0 [facility] Comment on above: Performed By: #### C BC #### [facility] [address] [place] [address] Dr. Jess Marie Platelet mean volume (Bld) [Entitic vol] 9.7 fL Normal 9.5-13.5 [facility] Comment on above: Performed By: #### C BC #### [facility] [address] [place] [address] Dr. Jess Marie PLT 230 103/ul Normal 150-450 [facility] Comment on above: Performed By: #### C BC #### [facility] [address] [place] [address] Dr. Jess Marie RBC 4.72 106/ul Normal 4.20-5.40 [facility] Comment on above: Performed By: #### C BC #### [facility] [address] [place] [address] Dr. Jess Marie WBC 5.2 103/ul Normal 4.0-11.0 [facility] Comment on above: Performed By: #### C BC #### [facility] [address] [place] [address] Dr. Jess Marie GLYCOHEMOGLOBIN A1Con 2022 ADA RECOMMENDATION SEE BELOW Normal [facility] Comment on above: Result Comment: ADA RECOMMENDED LIMIT 4.0 - 6.0 ADA THERAPEUTIC TARGET < 7.0 ACTION SUGGESTED > 7.0 Performed By: #### A 1C #### [facility] [address] [place] [address] Dr. Jess Marie Glucose [Mass/Vol] 123 mg/dL Normal [facility] Comment on above: Performed By: #### A 1C #### [facility] [address] [place] [address] Dr. Jess Marie HbA1c (Bld) [Mass fraction] 5.9 % Normal 4.5-6.2 [facility] Comment on above: Performed By: #### A 1C #### [facility] [address] [address] [address] Jess Marie LIPID PROFILEon 09-10-2022 CHOL-HDL RATIO NORM SEE BELOW Normal [facility] Comment on above: Result Comment: 3.3 - 4.4 LOW RISK 4.4 - 7.1 AVERAGE RISK 7.1 - 11.0 MODERATE RISK >11.0 HIGH RISK Performed By: #### T SH, LIVER, BMP, LIPID #### [facility] [address] [address] [address] Jess Marie Cholesterol [Mass/Vol] 267 mg/dL Critically high <=200 [facility] Comment on above: Performed By: #### T SH, LIVER, BMP, LIPID #### [facility] [address] [address] [address] Jess Marie Cholesterol in HDL [Mass/Vol] 79 mg/dL Critically high 40-60 [facility] Comment on above: Performed By: #### T SH, LIVER, BMP, LIPID #### [facility] [address] [address] [address] Jess Marie Cholesterol in LDL [Mass/Vol] 172.4 mg/dL Normal [facility] Comment on above: Performed By: #### T SH, LIVER, BMP, LIPID #### [facility] [address] [address] [address] Jess Marie Cholesterol.total/Ch olesterol in HDL [Mass ratio] 3.4 {ratio} Normal [facility] Comment on above: Performed By: #### T SH, LIVER, BMP, LIPID #### [facility] [address] [place] [address] Dr. Jess Marie HDL NORMAL > or = 60 mg/dl - LO W CARDIOVASCULAR RISK <40 mg/dl - HIGH CARDIOVASCULAR RISK Normal [facility] Comment on above: Performed By: #### T SH, LIVER, BMP, LIPID #### [facility] [address] [place] [address] Dr. Jess Marie LDL CALC NORMAL SEE BELOW Normal [facility] Comment on above: Result Comment: <100 mg/dl OPTIMAL 100 - 129 mg/dl NEAR OR ABOVE OPTIMAL 130 - 159 mg/dl BORDERLINE HIGH 160 - 189 mg/dl HIGH >190 mg/dl VERY HIGH Performed By: #### T SH, LIVER, BMP, LIPID #### [facility] [address] [address] [address] Jess Marie Triglyceride [Mass/Vol] 78 mg/dL Normal <=150 [facility] Comment on above: Performed By: #### T SH, LIVER, BMP, LIPID #### [facility] [address] [address] [address] Jess Marie VLDL CALC 15.6 mg/dL Normal [facility] Comment on above: Performed By: #### T SH, LIVER, BMP, LIPID #### [facility] [address] [address] [address] Jess Marie LIVER PROFILEon 09-10-2022 Albumin [Mass/Vol] 3.9 g/dL Normal 3.4-5.0 [facility] Comment on above: Performed By: #### T SH, LIVER, BMP, LIPID #### [facility] [address] [place] [address] Dr. Jess Marie Albumin/Globulin [Mass ratio] 0.9 {ratio} Normal [facility] Comment on above: Performed By: #### T SH, LIVER, BMP, LIPID #### [facility] [address] [place] [address] Dr. Jess Marie ALP [Catalytic activity/Vol] 61 U/L Normal 46-116 [facility] Comment on above: Performed By: #### T SH, LIVER, BMP, LIPID #### [facility] [address] [place] [address] Dr. Jess Marie ALT [Catalytic activity/Vol] 25 U/L Normal 14-59 [facility] Comment on above: Performed By: #### T SH, LIVER, BMP, LIPID #### [facility] [address] [place] [address] Dr. Jess Marie AST [Catalytic activity/Vol] 27 U/L Normal 15-37 [facility] Comment on above: Performed By: #### T SH, LIVER, BMP, LIPID #### [facility] [address] [place] [address] Dr. Jess Marie BILI, CONJUGATED 0.1 mg/dL Normal 0.0-0.2 [facility] Comment on above: Performed By: #### T SH, LIVER, BMP, LIPID #### [facility] [address] [place] [address] Dr. Jess Marie Bilirubin [Mass/Vol] 0.7 mg/dL Normal 0.2-1.0 [facility] Comment on above: Performed By: #### T SH, LIVER, BMP, LIPID #### [facility] [address] [place] [address] Dr. Jess Marie Globulin (S) [Mass/Vol] 4.2 g/dL Normal [facility] Comment on above: Performed By: #### T SH, LIVER, BMP, LIPID #### [facility] [address] [place] [address] Dr. Jses Marie Protein [Mass/Vol] 8.1 g/dL Normal 6.4-8.2 [facility] Comment on above: Performed By: #### T SH, LIVER, BMP, LIPID #### [facility] [address] [place] [address] Dr. Jess Marie PROF CHEM 8 (BAS METB)on Anion gap [Moles/Vol] 13.1 mmol/L Normal [facility] Comment on above: Performed By: #### T SH, LIVER, BMP, LIPID #### [facility] [address] [place] [address] Dr. Jess Marie Calcium [Mass/Vol] 9.6 mg/dL Normal 8.5-10.1 [facility] Comment on above: Performed By: #### T SH, LIVER, BMP, LIPID #### [facility] [address] [place] [address] Dr. Jess Marie Chloride [Moles/Vol] 105 mmol/L Normal 98-107 [facility] Comment on above: Performed By: #### T SH, LIVER, BMP, LIPID #### [facility] [address] [place] [address] Dr. Jess Marie CO2 [Moles/Vol] 28.9 mmol/L Normal 21.0-32.0 [facility] Comment on above: Performed By: #### T SH, LIVER, BMP, LIPID #### [facility] [address] [address] [address] Jess Marie Creatinine [Mass/Vol] 0.62 mg/dL Normal 0.55-1.02 [facility] Comment on above: Performed By: #### T SH, LIVER, BMP, LIPID #### [facility] [address] [address] [address] Jess Marie EGFR-AF BHUTANESE >60 Normal >=60 [facility] Comment on above: Performed By: #### T SH, LIVER, BMP, LIPID #### [facility] [address] [address] [address] Jess Marie EGFR-NON AF BHUTANESE >60 Normal >=60 [facility] Comment on above: Performed By: #### T SH, LIVER, BMP, LIPID #### [facility] [address] [address] [address] Jess Marie Glucose [Mass/Vol] 112 mg/dL Critically high 74-106 [facility] Comment on above: Performed By: #### T SH, LIVER, BMP, LIPID #### [facility] [address] [address] [address] Jess Marie Potassium [Moles/Vol] 5.0 mmol/L Normal 3.5-5.1 [facility] Comment on above: Result Comment: spec imen slightly hemolyzed Performed By: #### T SH, LIVER, BMP, LIPID #### [facility] [address] [address] [address] Jess Marie Sodium [Moles/Vol] 142 mmol/L Normal 136-145 [facility] Comment on above: Performed By: #### T SH, LIVER, BMP, LIPID #### [facility] [address] [address] [address] Jess Marie Urea nitrogen [Mass/Vol] 15.0 mg/dL Normal 7.0-18.0 [facility] Comment on above: Performed By: #### T SH, LIVER, BMP, LIPID #### [facility] [address] [place], [place] [address] Dr. Jess Marie Urea nitrogen/Creatinine [Mass ratio] 24.2 mg/mg Normal [facility] Comment on above: Performed By: #### T SH, LIVER, BMP, LIPID #### [facility] [address] [place], [place] [address] Dr. Jess Marie TSHon 09-10-2022 TSH 1.518 uIU/mL Normal 0.358-3.740 [facility] Comment on above: Performed By: #### T SH, LIVER, BMP, LIPID #### [facility] [address] [place], [place] [address] Dr. Jess Marie US CAROTID ART BILon 023 US CAROTID ART ROSARIO EXAMINATION: US [...] HERSON REBOLLEDO Date: 2022-09-10 12:26 Normal [facility] XR ABD FLAT_UPon 06-10-2022 XR ABD FLAT_UP [...] by: HERSON REBOLLEDO Date: 2022-06-10 08:38 Normal [facility] SARS-CoV-2 (COVID-19) RNA YAYA+probe Ql (Unsp spec) Not detected Normal NOT DETECTED [facility] Comment on above: Result Comment: This test is not yet approved or cleared by the [place] FDA. When there are no FDA-approved or cleared tests available, and other criteria are met, FDA can make tests available under an emergency access mechanism called an Emergency Use Authorization (EUA). The EUA for this test is supported by the [place] of Health and Human Service's (HHS's) declaration [...] consistent with SARS-CoV-2. Performed By: #### [facility] #### [facility] [address] [place] [address] Dr. Jess Marie Vital Signs Date Time Vital Sign Value Performing Clinician Blu arango 01-08-2023 13:49-0400 Diastolic blood pressure 94 mm[Hg] Amor HOLLY [facility] 01-08-2023 13:49-0400 Heart rate 80 /min Amor HOLLY [facility] 01-08-2023 13:49-0400 Respiratory rate 16 /min Amor HOLLY [facility] 01-08-2023 13:49-0400 Systolic blood pressure 136 mm[Hg] Amor HOLLY [facility] Encounters Encounter Date Encounter Type Care Provider Facility Start: 05-20-2023 End: 05-20-2023 Emergency department patient visit Remigio Simpson MD Facility:[facility] Start: 01-27-2023 End: 01-28-2023 ambulatory Amor HOLLY Facility:CD:[id number] Start: 01-08-2023 End: 01-09-2023 ambulatory Amor HOLLY Facility:[facility] Start: 01-08-2023 End: 01-08-2023 Patient encounter procedure Amor HOLLY [facility] Start: 12-30-2022 ambulatory Amor HOLLY Facility : [facility] Start: 09-10-2022 End: 09-11-[address] REMIGIO SIMPSON Facility:[facility] Start: 06-09-2022 End: 06-10-[address] REMIGIO SIMPSON Facility:[facility] Start: 03-12-2022 End: 03-13-[address] REMIGIO SIMPSON Facility:[facility] Start: 11-04-2021 End: 11-04-[address] REMIGIO SIMPSON Facility:[facility] Procedures Date Procedure Procedure Detail Performing Clinician Start: 12-25-2020 Colonoscopy Amor CHOPRA Start: 06-29-2014 right carpal tunnel release Amor HOLLY Start: 06-15-2014 left carpal tunnel release Amor HOLLY Adenoid excision Amor Chaves Dilation and curetta ge of uterus Amor HOLLY Comment on above: 2004 tonsillectomy 2 Amor HOLLY Comment on above: 1960 Vaginal hysterectomy Amor BERKLEY Immunizations Immunization Date Immunization Notes Care Provider Fa cility 03-17-2022 SARS-CoV-2 (COVID-19 ) [id number] Amor HOLLY [facility] [place] 10-05-2021 SARS-CoV-2 mRNA (ociinyoaqti-mtuo-rtweo se) vaccine Amor HOLLY [facility] [place] 03-06-2021 SARS-CoV-2 (COVID-19 ) mRNA BNT-162b2 vax Amor HOLLY [facility] 07-30-2020 SARS-CoV-2 (COVID-19 ) mRNA BNT-162b2 raquel HOLLY [facility] Comment on above: Result Comment: 2022: [id number] 07-09-2020 SARS-CoV-2 (COVID-19 ) mRNA BNT-162b2 raquel HOLLY [facility] [place] Comment on above: Result Comment: 2022: [id number] Payers Date Payer Category Payer Medicare 2014 Unknown 1961 Medicare [id number] 1961 Unknown [id number] 1955 Unknown [id number] 2.16.84 [id number] 1955 Unknown [id number] 2.16.84 [id number] 1955 Unknown [id number] 2.16.84 [id number] 1955 Unknown [id number] 2.16.84 [id number] 1955 Unknown [id number] 2.16.8 [id number] 1955 Unknown [id number] 2.16.8 [id number] 1955 Unknown [id number] 2.16.8 [id number] 1955 Unknown [id number] 2.16. [id number] Social History Date Type Detail Facility Start: 01-08-2023 Tobacco smoking status Never s moked tobacco (finding) [facility] Tobacco smoking status Never Gener al [facility] Sex Assigned At Female [facility] Functional Status Date Assessment Result Facility 01-08-2023 Functional Status N/A [facility] Clinical Note 01-08-2023 Note Date & Type [...] Use:. Household tobacco (more content not included)... [facility] Comment on above: Result Comment: Elec tronically Signed By: BERKLEY ROGERS, Amor Rangel\Date and Time Signed: 01/08/23 [...] authenticated by: HERSON REBOLLEDO Date: 2022-03-12 18:14 [facility] Evaluation + Plan note Note Date & Type Note Facility Evaluation + Plan note No data available for this section [facility] [place] [facility] Discharge instructions Note Date & Type Note Facility Hospital Discharge instructions No data available for this section [facility] [place] Progress note Note Date & Type Note Facility Progress note No data available for this section [facility] [place] Summary Purpose Family History No Family History Records FoundNo Family History Records FoundNo Family History Records Found Advance Directives No Advanced Directives Records FoundNo Advanced Directives Records FoundNo Advanced Directives Records Found Additional Source Comments INFORMATION SOURCE (unrecogn ized section and content) DATE CREATED AUTHOR 09/17/2022 [facility] DATE CREATED AUTHOR AUTHOR'S ORGANIZ ATION 02/17/2023 [facility] DATE CREATED AUTHOR AUTHOR'S ORGANIZ ATION 05/21/2023 [facility] Patient Care team informatio n (unrecognized section and content) Personnel Name: REMIGIO SIMPSON MD Address: Address: [address] [place] [address] FOR RECORDS PERTAINING TO PATIENTS WHO ARE [...] BE BASED ON THE PRIMARY CLINICAL RECORDS. [facility] [employer] provides no warranty or guarantee of the accuracy or completeness of information in this document.
[2023-05-23 13:49] VITALS: BP 161/82; PULSE 83; RESP 18; TEMP 36.7; O2SAT 99; BMI 25.3
--- NOTE | 2023-05-23 14:01 | ED.ANXIETY1 ---
HPI - Anxiety General Chief Complaint: Anxiety Stated Complaint: PANIC ATTACK/ANXIETY Time Seen by Provider: 05/23/23 14:01 Source: patient Mode of arrival: walk-in History of Present Illness HPI narrative: The patient is very well-known to us coming to the emergency room to be evaluated after she recently has been having more anxiety attack, the patient apparently was treated with Ativan for her anxiety by her primary care doctor but was developing some confusion . As well as sleepwalking, the patient recently started talking to her family about the fact that she does not want to be a burden on them, and that she previously mentioned that she was worried that her will and leave her alone. No acute complaint of pain chest pain nausea vomiting or fever or any other complaints Related Data Home Medications Medication Instructions Recorded Confirmed wheat dextrin PO DAILY 01/14/23 Previous Rx's Medication Instructions Recorded meloxicam 7.5 mg tablet 7.5 mg PO DAILY PRN pain #10 tabs 05/16/23 Allergies Allergy/AdvReac Type Severity Reaction Status Date / Time No Known Drug Allergies Allergy Unverified 01/14/23 11:44 Review of Systems ROS Status of ROS 10 or more systems reviewed and unremarkable except as noted in history and below [facility] Medical History (Updated 05/16/23 @ 14:04 by Gabi Pitts MD) Normal colonoscopy PSVT (paroxysmal supraventricular tachycardia) ?I47.1 - Supraventricular tachycardia (ICD-10) Positive colorectal cancer screening using Cologuard test ?R19.5 - Other fecal abnormalities (ICD-10) Osteopenia ?M85.80 - Other specified disorders of bone density and structure, unspecified site (ICD-10) Orthostatic hypotension ?I95.1 - Orthostatic hypotension (ICD-10) GERD (gastroesophageal reflux disease) ?K21.9 - Gastro-esophageal reflux disease without esophagitis (ICD-10) Abdominal pain ?R10.9 - Unspecified abdominal pain (ICD-10) DALILA (generalized anxiety disorder) ?F41.1 - Generalized anxiety disorder (ICD-10) Dyslipidemia ?E78.5 - Hyperlipidemia, unspecified (ICD-10) Chronic constipation ?K59.09 - Other constipation (ICD-10) Change in bowel habits ?R19.4 - Change in bowel habit (ICD-10) Cervical disc disease ?M50.90 - Cervical disc disorder, unspecified, unspecified cervical region (ICD-10) Surgical History (Updated 01/14/23 @ 11:40 by Gabi Kim RN) H/O vaginal hysterectomy ?Z90.710 - Acquired absence of both cervix and uterus (ICD-10) H/O dilation and curettage ?Z98.890 - Other specified postprocedural states (ICD-10) Hx of tonsillectomy ?Z90.89 - Acquired absence of other organs (ICD-10) History of adenoidectomy ?Z90.89 - Acquired absence of other organs (ICD-10) History of carpal tunnel release ?Z98.890 - Other specified postprocedural states (ICD-10) Family History (Updated 01/14/23 @ 11:43 by Gabi Kim RN) Other Alcoholism Cardiac arrhythmia Heart disease Hypertension Multiple myeloma Pancreatic adenocarcinoma Pancreatic cancer Social History (Updated 01/14/23 @ 11:43 by Gabi Kim RN) Within the past year, how often did you have a drink containing alcohol: never Score interpretation: A score less than 3 is consistent with normal alcohol consumption. 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 General: Well-appearing and in no apparent distress. Skin: Warm, dry, no pallor noted. No rash. Head: Normocephalic, atraumatic. Neck: Supple, non-tender. Eye: Pupils are equal, round and EOMI. No scleral icterus. Ears, Nose, Mouth, and Throat: TM are clear, no nasal mucosal hypertrophy. Oral mucosa is moist, no posterior oropharynx erythema, uvula is mid-line Cardiovascular: Regular Rate and Rhythm without murmur, gallop or rub. Respiratory: No accessory muscle use or respiratory distress. Lungs are clear to auscultation, no wheezing, rales or rhonchi Chest Wall: no tenderness Back: No midline thoracic or lumbar vertebral tenderness. No CVA tenderness Musculoskeletal: normal ROM, no calf or popliteal tenderness, no lower extremity edema/swelling GI: Abdomen is soft, non-distended. Normal bowel sounds. No masses appreciated. No tenderness to palpation. No rebound, guarding, or rigidity noted. Neurological: A&O x4. No cranial nerve dysfunction observed. No truncal ataxia. Moves all extremities. Sensation intact. Psychiatric: Cooperative and interactive. Normal mood and affect. Constitutional Vital Signs, click to edit/add: Last Vital Signs Temp 98.5 F 05/23/23 17:50 Pulse 86 05/23/23 17:50 Resp 18 05/23/23 13:49 BP 151/81 H 05/23/23 17:50 Pulse Ox 99 05/23/23 17:50 O2 Del Method Room Air 05/23/23 13:49 Course Vital Signs Vital signs: Vital Signs Temperature 98.0 F 05/23/23 13:49 Pulse Rate 83 05/23/23 13:49 Respiratory Rate 18 05/23/23 13:49 Blood Pressure 161/82 H 05/23/23 13:49 Pulse Oximetry 99 05/23/23 13:49 Oxygen Delivery Method Room Air 05/23/23 13:49 Temperature 98.5 F 05/23/23 17:50 Pulse Rate 86 05/23/23 17:50 Respiratory Rate 18 05/23/23 13:49 Blood Pressure 151/81 H 05/23/23 17:50 Pulse Oximetry 99 05/23/23 17:50 Oxygen Delivery Method Room Air 05/23/23 13:49 MDM - Anxiety MDM Narrative Medical decision making narrative: The patient CBC and chemistry showed no acute significant pathology. The patient chemistry was within normal I did speak with the family and explained to them that there is a lot of neurological symptoms that could be explained by possible underlying dementia Will stop the hydroxyzine at the moment The patient will be evaluated by [facility] awaiting further assessment Awaiting the results of the psychiatric assessment the patient case was trasnferred to Dr Underwood Lab Data Labs: Lab Results 05/23/23 05/23/23 Range/Units 14:26 15:35 WBC 7.8 (4.0-11.0) 10^3/uL RBC 4.62 (4.20-5.40) 10^6/uL Hgb 13.7 (12.0-16.0) g/dL Hct 41.2 (36.0-48.0) % MCV 89.2 (81.0-99.0) fL MCH 29.7 (26.7-34.0) pg MCHC 33.3 (29.9-35.2) g/dL RDW 11.9 (11.0-15.0) % Plt Count 240 (150-450) 10^3/uL MPV 9.5 (9.5-13.5) fL Neut % (Auto) 80.9 H (43.0-75.0) % Lymph % (Auto) 12.8 L (20.5-60.0) % [place] % (Auto) 5.4 (1.7-12.0) % Eos % (Auto) 0.3 L (0.9-7.0) % Baso % (Auto) 0.3 (0.2-2.0) % Neut # (Auto) 6.4 (1.4-6.5) 10^3/uL Lymph # (Auto) 1.0 L (1.2-3.8) 10^3/uL [place] # (Auto) 0.4 (0.3-0.8) 10^3/uL Eos # (Auto) 0.0 (0.0-0.7) 10^3/uL Baso # (Auto) 0.0 (0.0-0.1) 10^3/uL Abs Immat Gran (auto) 0.02 (0.00-0.03) 10^3/uL Imm/Tot Granulo (auto) 0.3 (0.0-0.5) % Sodium 135 L (136-145) mmol/L Potassium 3.8 (3.5-5.1) mmol/L Chloride 97 L (98-107) mmol/L Carbon Dioxide 28.6 (21.0-32.0) mmol/L Anion Gap 13.2 BUN 18.0 (7.0-18.0) mg/dL Creatinine 0.75 (0.55-1.02) mg/dL Est GFR ( Amer) >60 (>=60) Est GFR (Non-Af Amer) >60 (>=60) BUN/Creatinine Ratio 24.0 Glucose 133 H (74-106) mg/dL Calcium 10.1 (8.5-10.1) mg/dL Total Bilirubin 0.6 (0.2-1.0) mg/dL AST 20 (15-37) U/L ALT 23 (14-59) U/L Alkaline Phosphatase 51 (46-116) U/L Total Protein 7.5 (6.4-8.2) g/dL Albumin 3.8 (3.4-5.0) g/dL Globulin 3.7 g/dL Albumin/Globulin Ratio 1.0 Salicylates <2.8 (<=19.9) mg/dL Urine Opiates Screen Negative (NEGATIVE) Ur Buprenorphine Scrn Negative (NEGATIVE) Ur Oxycodone Screen Negative (NEGATIVE) Urine Methadone Screen Negative (NEGATIVE) Acetaminophen <2.0 L (10.0-30.0) ug/mL Ur Barbiturates Screen Negative (NEGATIVE) U Tricyclic Antidepress Negative (NEGATIVE) Ur Phencyclidine Scrn Negative (NEGATIVE) Ur Amphetamines Screen Negative (NEGATIVE) U Methamphetamines Scrn Negative (NEGATIVE) U Benzodiazepines Scrn Negative (NEGATIVE) Urine Cocaine Screen Negative (NEGATIVE) U Cannabinoids Screen Negative (NEGATIVE) Ethanol Quant <3 mg/dL Discharge Plan Discharge Patient Disposition: Still a Patient
--- NOTE | 2023-05-23 14:02 | ECG_ITS ---
The [facility] Test Date: 2023-05-23 Pat Name: DONNIE BULLOCK Department: Room: - Gender: Female [employer]: : 1955 Requested By: MONI SIMPSON Order Number: [id number] Reading MD: HONORIO BRIONES Measurements Intervals [place] Rate: 84 P: 37 VT: 136 QRS: 40 QRSD: 78 T: 61 QT: 360 QTc: 401 Interpretive Statements 1100 Sinus rhythm 9110 normal ECG Compared to ECG 05/16/2023 12:17:23 No significant changes Electronically Signed On 05-25-2023 5:30:31 EST by HONORIO BRIONES
[2023-05-23 14:28] VITALS: PULSE 85
[2023-05-23 14:37] LABS: Basophils Percent Auto 0.3 % (0.2-2.0); Eosinophils Percent Auto 0.3 % (0.9-7.0); Hematocrit 41.2 % (36.0-48.0); Hemoglobin 13.7 g/dL (12.0-16.0); Immature Granulocytes Abs Auto 0.02 10^3/uL (0.00-0.03); Immature Granulocytes Pct Auto 0.3 % (0.0-0.5); Lymphocytes Percent Auto 12.8 % (20.5-60.0); Mean Corpuscular HGB Conc 33.3 g/dL (29.9-35.2); Mean Corpuscular Hemoglobin 29.7 pg (26.7-34.0); Mean Corpuscular Volume 89.2 fL (81.0-99.0); Mean Platelet Volume 9.5 fL (9.5-13.5); Monocytes Absolute Auto 0.4 10^3/uL (0.3-0.8); Monocytes Percent Auto 5.4 % (1.7-12.0); Neutrophils Absolute Auto 6.4 10^3/uL (1.4-6.5); Neutrophils Percent Auto 80.9 % (43.0-75.0); Platelet Count 240 10^3/uL (150-450); Red Blood Count 4.62 10^6/uL (4.20-5.40); Red Cell Distribution Width 11.9 % (11.0-15.0); White Blood Count 7.8 10^3/uL (4.0-11.0)
[2023-05-23 14:48] LABS: Salicylate <2.8 mg/dL (<=19.9)
[2023-05-23 14:51] LABS: Alanine Aminotransferase 23 U/L (14-59); Albumin Level 3.8 g/dL (3.4-5.0); Alkaline Phosphatase 51 U/L (46-116); Anion Gap 13.2; Aspartate Amino Transferase 20 U/L (15-37); Bilirubin Total 0.6 mg/dL (0.2-1.0); Calcium 10.1 mg/dL (8.5-10.1); Carbon Dioxide 28.6 mmol/L (21.0-32.0); Chloride 97 mmol/L (98-107); Estimated GFR (African America >60 (>=60); Estimated GFR (Non-African Ame >60 (>=60); Globulin 3.7 g/dL; Glucose 133 mg/dL (74-106); Potassium 3.8 mmol/L (3.5-5.1); Sodium 135 mmol/L (136-145); Total Protein 7.5 g/dL (6.4-8.2)
[2023-05-23 14:57] LABS: Acetaminophen <2.0 ug/mL (10.0-30.0)
[2023-05-23 15:00] LABS: Ethanol <3 mg/dL
[2023-05-23 16:02] LABS: Amphetamine Screen Urine NEGATIVE (NEGATIVE); Barbiturates Screen Urine NEGATIVE (NEGATIVE); Benzodiazepines Screen Urine NEGATIVE (NEGATIVE); Buprenorphine Screen Urine NEGATIVE (NEGATIVE); Cannabinoid Screen Urine NEGATIVE (NEGATIVE); Cocaine Screen Urine NEGATIVE (NEGATIVE); Methadone Screen Urine NEGATIVE (NEGATIVE); Methamphetamines Screen Urine NEGATIVE (NEGATIVE); Opiate Screen Urine NEGATIVE (NEGATIVE); Oxycodone Screen Urine NEGATIVE (NEGATIVE); Phencyclidine Screen Urine NEGATIVE (NEGATIVE); Tricyclic Antidepressant Urine NEGATIVE (NEGATIVE)
[2023-05-23 17:50] VITALS: BP 151/81; PULSE 86; TEMP 36.9; O2SAT 99
--- NOTE | 2023-05-23 17:53 | PC.NURSE ---
Pt and speaking with Nasima from [facility] .
--- NOTE | 2023-05-23 19:24 | CT_ITS ---
The [address] [address] Patient Name: DONNIE BULLOCK MRN: [id number] date: 1955 Sex: F Assigned Patient Location: ER Current Patient Location: ER Accession/Order Number: [id number] Exam Date: 05/23/2023 19:40 Report Date: 05/23/2023 20:11 At the request of: FRANSICO COLLADO Procedure: CT head/brain wo con EXAMINATION: CT head/brain wo con, 05/23/2023 7:40 PM EST HISTORY: Memory issues COMPARISON: None. TECHNIQUE: CT scan of the head was performed without IV contrast. CT dose reduction technique was used, including Automated Exposure Control. FINDINGS: BRAIN PARENCHYMA/CSF SPACES: Prominence of the ventricles and sulci compatible with diffuse cerebral atrophy. Mild periventricular white matter hypodensities suggesting chronic small vessel ischemic changes. There is no hemorrhage, mass effect or midline shift. PARANASAL SINUSES: Clear. SKULL BASE AND CALVARIUM: Normal. EXTRACRANIAL SOFT TISSUES: Normal. CT/CT head/brain wo con IMPRESSION: No acute intracranial findings. Atrophy and chronic white matter small vessel ischemic changes. MRI would be more sensitive for acute infarct if clinically indicated. Electronically authenticated by: TIMMY CAO Date: 05/23/2023 20:11
--- NOTE | 2023-05-23 21:00 | ED_ITS ---
HPI - Anxiety General Chief Complaint: Anxiety Stated Complaint: PANIC ATTACK/ANXIETY Time Seen by Provider: 05/23/23 14:01 Source: patient Mode of arrival: walk-in History of Present Illness HPI narrative: the patient was initially seen by Dr. Pitts and signed out to me after discussing the case with her thoroughly. Please see her full history and physical. Related Data Home Medications Medication Instructions Recorded Confirmed wheat dextrin PO DAILY 01/14/23 Previous Rx's Medication Instructions Recorded meloxicam 7.5 mg tablet 7.5 mg PO DAILY PRN pain #10 tabs 05/16/23 Allergies Allergy/AdvReac Type Severity Reaction Status Date / Time No Known Drug Allergies Allergy Unverified 01/14/23 11:44 [facility] Medical History (Updated 05/23/23 @ 21:03 by Lloyd Underwood MD) Normal colonoscopy PSVT (paroxysmal supraventricular tachycardia) ?I47.1 - Supraventricular tachycardia (ICD-10) Positive colorectal cancer screening using Cologuard test ?R19.5 - Other fecal abnormalities (ICD-10) Osteopenia ?M85.80 - Other specified disorders of bone density and structure, unspecified site (ICD-10) Orthostatic hypotension ?I95.1 - Orthostatic hypotension (ICD-10) GERD (gastroesophageal reflux disease) ?K21.9 - Gastro-esophageal reflux disease without esophagitis (ICD-10) Abdominal pain ?R10.9 - Unspecified abdominal pain (ICD-10) DALILA (generalized anxiety disorder) ?F41.1 - Generalized anxiety disorder (ICD-10) Dyslipidemia ?E78.5 - Hyperlipidemia, unspecified (ICD-10) Chronic constipation ?K59.09 - Other constipation (ICD-10) Change in bowel habits ?R19.4 - Change in bowel habit (ICD-10) Cervical disc disease ?M50.90 - Cervical disc disorder, unspecified, unspecified cervical region (ICD-10) Surgical History (Updated 01/14/23 @ 11:40 by Gabi Kim RN) H/O vaginal hysterectomy ?Z90.710 - Acquired absence of both cervix and uterus (ICD-10) H/O dilation and curettage ?Z98.890 - Other specified postprocedural states (ICD-10) Hx of tonsillectomy ?Z90.89 - Acquired absence of other organs (ICD-10) History of adenoidectomy ?Z90.89 - Acquired absence of other organs (ICD-10) History of carpal tunnel release ?Z98.890 - Other specified postprocedural states (ICD-10) Family History (Updated 01/14/23 @ 11:43 by Gabi Kim RN) Other Alcoholism Cardiac arrhythmia Heart disease Hypertension Multiple myeloma Pancreatic adenocarcinoma Pancreatic cancer Social History (Updated 01/14/23 @ 11:43 by Gabi Kim RN) Within the past year, how often did you have a drink containing alcohol: never Score interpretation: A score less than 3 is consistent with normal alcohol consumption. 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 Known occupational exposures/hazards: No Highest level of school completed/degree received: high school graduate Exam Constitutional Vital Signs, click to edit/add: Last Vital Signs Temp 98.5 F 05/23/23 17:50 Pulse 86 05/23/23 17:50 Resp 18 05/23/23 13:49 BP 151/81 H 05/23/23 17:50 Pulse Ox 99 05/23/23 17:50 O2 Del Method Room Air 05/23/23 13:49 Course Vital Signs Vital signs: Vital Signs Temperature 98.0 F 05/23/23 13:49 Pulse Rate 83 05/23/23 13:49 Respiratory Rate 18 05/23/23 13:49 Blood Pressure 161/82 H 05/23/23 13:49 Pulse Oximetry 99 05/23/23 13:49 Oxygen Delivery Method Room Air 05/23/23 13:49 Temperature 98.5 F 05/23/23 17:50 Pulse Rate 86 05/23/23 17:50 Respiratory Rate 18 05/23/23 13:49 Blood Pressure 151/81 H 05/23/23 17:50 Pulse Oximetry 99 05/23/23 17:50 Oxygen Delivery Method Room Air 05/23/23 13:49 MDM - Anxiety MDM Narrative Medical decision making narrative: her medical workup here is negative. Mental health services has interviewed the patient and the . The patient has an appointment with a neurologist in three days and then a psychiatrist in four days and then her family doctor in five days. She will keep all these appointments. The states that she is ninety-nine percent better now and thinks that some of the issue was side effects of the hydroxyzine. She is going to stop that medication. We discussed the possibility of admission and admission was offered but the doesn't feel that she needs to be admitted at this point so she'll be discharged home. Differential Diagnosis Differential diagnosis: Likely panic disorder and acute anxiety Lab Data Attestation: I reviewed the patient's lab results. Labs: Lab Results 05/23/23 05/23/23 Range/Units 14:26 15:35 WBC 7.8 (4.0-11.0) 10^3/uL RBC 4.62 (4.20-5.40) 10^6/uL Hgb 13.7 (12.0-16.0) g/dL Hct 41.2 (36.0-48.0) % MCV 89.2 (81.0-99.0) fL MCH 29.7 (26.7-34.0) pg MCHC 33.3 (29.9-35.2) g/dL RDW 11.9 (11.0-15.0) % Plt Count 240 (150-450) 10^3/uL MPV 9.5 (9.5-13.5) fL Neut % (Auto) 80.9 H (43.0-75.0) % Lymph % (Auto) 12.8 L (20.5-60.0) % [place] % (Auto) 5.4 (1.7-12.0) % Eos % (Auto) 0.3 L (0.9-7.0) % Baso % (Auto) 0.3 (0.2-2.0) % Neut # (Auto) 6.4 (1.4-6.5) 10^3/uL Lymph # (Auto) 1.0 L (1.2-3.8) 10^3/uL [place] # (Auto) 0.4 (0.3-0.8) 10^3/uL Eos # (Auto) 0.0 (0.0-0.7) 10^3/uL Baso # (Auto) 0.0 (0.0-0.1) 10^3/uL Abs Immat Gran (auto) 0.02 (0.00-0.03) 10^3/uL Imm/Tot Granulo (auto) 0.3 (0.0-0.5) % Sodium 135 L (136-145) mmol/L Potassium 3.8 (3.5-5.1) mmol/L Chloride 97 L (98-107) mmol/L Carbon Dioxide 28.6 (21.0-32.0) mmol/L Anion Gap 13.2 BUN 18.0 (7.0-18.0) mg/dL Creatinine 0.75 (0.55-1.02) mg/dL Est GFR ( Amer) >60 (>=60) Est GFR (Non-Af Amer) >60 (>=60) BUN/Creatinine Ratio 24.0 Glucose 133 H (74-106) mg/dL Calcium 10.1 (8.5-10.1) mg/dL Total Bilirubin 0.6 (0.2-1.0) mg/dL AST 20 (15-37) U/L ALT 23 (14-59) U/L Alkaline Phosphatase 51 (46-116) U/L Total Protein 7.5 (6.4-8.2) g/dL Albumin 3.8 (3.4-5.0) g/dL Globulin 3.7 g/dL Albumin/Globulin Ratio 1.0 Salicylates <2.8 (<=19.9) mg/dL Urine Opiates Screen Negative (NEGATIVE) Ur Buprenorphine Scrn Negative (NEGATIVE) Ur Oxycodone Screen Negative (NEGATIVE) Urine Methadone Screen Negative (NEGATIVE) Acetaminophen <2.0 L (10.0-30.0) ug/mL Ur Barbiturates Screen Negative (NEGATIVE) U Tricyclic Antidepress Negative (NEGATIVE) Ur Phencyclidine Scrn Negative (NEGATIVE) Ur Amphetamines Screen Negative (NEGATIVE) U Methamphetamines Scrn Negative (NEGATIVE) U Benzodiazepines Scrn Negative (NEGATIVE) Urine Cocaine Screen Negative (NEGATIVE) U Cannabinoids Screen Negative (NEGATIVE) Ethanol Quant <3 mg/dL Imaging Data CT scan - head: Radiologist's impression: Procedure: CT head/brain wo con EXAMINATION: CT head/brain wo con, 05/23/2023 7:40 PM EST HISTORY: Memory issues COMPARISON: None. TECHNIQUE: CT scan of the head was performed without IV contrast. CT dose reduction technique was used, including Automated Exposure Control. FINDINGS: BRAIN PARENCHYMA/CSF SPACES: Prominence of the ventricles and sulci compatible with diffuse cerebral atrophy. Mild periventricular white matter hypodensities suggesting chronic small vessel ischemic changes. There is no hemorrhage, mass effect or midline shift. PARANASAL SINUSES: Clear. SKULL BASE AND CALVARIUM: Normal. EXTRACRANIAL SOFT TISSUES: Normal. IMPRESSION: No acute intracranial findings. Atrophy and chronic white matter small vessel ischemic changes. MRI would be more sensitive for acute infarct if clinically indicated. Electronically authenticated by: TIMMY CAO Date: 05/23/2023 20 Discharge Plan Discharge Chief Complaint: Anxiety Clinical Impression: Anxiety Patient Disposition: Home, Self-Care Time of Disposition Decision: 21:00 Condition: Good Prescriptions / Home Meds: Discontinued hydroxyzine HCl 25 mg tablet 25 mg PO Q8H PRN (Reason: anxiety) Qty: 10 0RF No Action wheat dextrin [Benefiber Healthy Shape] PO DAILY meloxicam 7.5 mg tablet 7.5 mg PO DAILY PRN (Reason: pain ) Qty: 10 0RF Instructions: Anxiety (ED) Additional Instructions: discontinue the hydroxyzine Stand Alone Forms: Portal Instructions Referrals: Remigio Hoyos MD [Primary Care Provider] - 1 week
[2023-05-23 21:20] VITALS: BP 130/60; PULSE 85; RESP 18; O2SAT 99
== END 2023-05-23 21:25 | disposition home or self-care (01) ==
PROVIDERS: Emergency Medicine; Emergency Provider Emergency Medicine; PCP Family Medicine
DX: F41.9 Anxiety disorder, unspecified (principal); M85.80 Other specified disorders of bone density and structure, unspecified site; K21.9 Gastro-esophageal reflux disease without esophagitis; E78.5 Hyperlipidemia, unspecified; K59.09 Other constipation; M50.90 Cervical disc disorder, unspecified, unspecified cervical region; Z90.710 Acquired absence of both cervix and uterus; Z90.89 Acquired absence of other organs; Z98.890 Other specified postprocedural states; Z79.899 Other long term (current) drug therapy
CPT/HCPCS: 36415; 70450; 80053; 80179; 80307; 80320; 80329; 85025; 93005; 99285

== ENCOUNTER 2023-06-14 14:24 | Outpatient (OUT) | payer MEDICARE, OTHER, SELFPAY ==
--- OUTSIDE RECORDS SUMMARY | 2023-06-14 14:28 | XMS_ITS | CCD ---
Author Name Unknown Address [address] [place] [address] Organization [facility] Care Team Providers Care Operations Vice President Name Role Phone NADEMILY, DR REMIGIO Richardson Attending Unavailable NADERER, DR [...] Primary Care Physician Amor HOLLY Attending Unavailable NADERERREMIGIO Referring Unavailable NILL, Amor Pollock Attending Unavailable NADERER, REMIGIO Referring Unavailable NILL, Amor Pollock Attending Unavailable NadRemigio campos MD Primary Care Unavail vinay Gilbert MD, Anuj Orta Attending Unav DO Robert Joseph Emergency Provider MD Remigio Simpson Primary Care Provider [phone] MD Sridhar Hoffman Admit Provider MD Sridhar Hoffman Attending Provider Sridhar Hoffman Attending Unavailable Sridhar Hoffman Admitting Unavailable Calvin, Remigio Primary Care Unavailable REMIGIO SIMPSON Attending Unavailable Medications Current Medications Medication Drug Class(es) Dates Sig (Normalized) Sig (Original) meloxicam 7.5 mg oral tablet (2 sources) Nonsteroidal Anti-inflammatory Drug Start: 05-25-2023 take 7.5 mg by mouth once daily Meloxicam Active 7.5 MG PO Daily May 25, 2023 12:00am mirtazapine 7.5 mg oral tablet (1 source) Start: 06-08-2023 take 7.5 mg by mouth once daily at bedtime Mirtazapine Active 7.5 MG PO Daily at bedtime 30 June 08, 2023 12:00am risperiDONE 1 mg oral tablet (2 sources) Atypical Antipsychotic Start: 06-08-2023 take 0.25 mg by mouth at bedtime Risperidone Active 0.25 MG PO Bedtime June 08, 2023 12:00am Start: 06-08-2023 take 1 mg by mouth twice daily Risperidone Active 1 MG PO Twice daily June 08, 2023 12:00am wheat dextrin 3000 mg powder for oral solution (1 source) Start: 01-08-2023 Benefiber 100% oral powder as needed for constipation, Refill(s) 0 Start Date: 01/08/23 Status: Ordered Problems Active Problems Problem Classification Problem Date Documented Da te Episodic/Chronic Abdominal pain (1 source) Generalized abdominal pain 01-04-2023 Episodic Anxiety disorders (4 sources) Generalized anxiety disorder; Translations: [Anxiety] Onset: 4 01-04-2023 Chronic Cardiac dysrhythmias (1 source) Paroxysmal supraventricular tachycardia 01-04-2023 Chronic Conditions associated with dizziness or vertigo (1 source) Dizziness and giddiness; Translations: [DIZZINESS AND GIDDINESS] Onset: 3 Episodic Delirium, dementia, and amnestic and other cognitive disorders (3 sources) Dementia; Translations: [Unspecified dementia without behavioral disturbance] Onset: 4 06-01-2023 Chronic Diabetes mellitus without complication (5 sources) Impaired fasting glucose; Translations: [Impaired fasting glycemia] Onset: 3 Episodic Disorders of lipid metabolism (2 sources) Hyperlipidemia, unspecified; Translations: [Dyslipidemia] Onset: 3 01-04-2023 Chronic Esophageal disorders (1 source) Gastroesophageal reflux disease 01-04-2023 Chronic Comment on above: diet controlled Malaise and fatigue (1 source) Other fatigue; Translations: [OTHER FATIGUE] Onset: 3 Episodic Mood disorders (2 sources) Depressive disorder; Translations: [Depression] 05-25-2023 Chronic Mood disorders (1 source) Mood disorders; Translations: [Depression, unspecified] Onset: 4 Other aftercare (1 source) Other terminal make up operator (current) drug therapy; Translations: [OTH CARE HOME [...] [FAMILY HISTORY OF STROKE] Onset: 3 Episodic Residual codes; unclassified (1 source) Confusional state; Translations: [Disorientation, unspecified] 05-31-2023 Episodic Residual codes; unclassified (2 sources) Disorientation, unspecified; Translations: [Unspecified psychosis] Onset: 4 05-25-2023 Episodic Spondylosis; intervertebral disc disorders; other back problems (1 source) Cervical disc disorder 01-04-2023 Chronic Suicide and intentional self-inflicted injury (2 sources) Suicidal thoughts; Translations: [Suicidal ideations] 05-25-2023 Episodic Unclassified (3 sources) CONTACT W/AND (SUSP) EXPOS [...] Test Name Value Interpretation Reference Range Facility A1C with Estimated Average G cristal 06-04-2023 Glucose [Mass/Vol] 128 mg/dL Normal [facility] Comment on above: Result Comment: PERF ORMED BY: [place] [address] PATHOLOGIST RIP SAW OPERATOR ELE SPRING M.D. Performed By: #### A 1C [facility] Narda CMP #### [address] HbA1c (Bld) [Mass fraction] 6.1 % High 4.3-5.6 [facility] Comment on above: Result Comment: Incr eased risk for diabetes: 5.7 - 6.4 diabetes: >6.4 glycemic control for adults with diabetes: <7.0 Performed By: #### A 1C [facility] Narda CMP #### [facility] [address] [place] [address] Comprehensive Metabolic Pane chito 06-04-2023 Albumin [Mass/Vol] 3.3 g/dL Low 3.5-5.7 [facility] Comment on above: Performed By: #### A 1C ALFREDO Narda CMP #### [facility] [address] [place] [address] Albumin/Globulin [Mass ratio] 1.4 {ratio} Normal [facility] Comment on above: Performed By: #### A 1C [facility] Narda, CMP #### [facility] [address] [place] [address] ALP [Catalytic activity/Vol] 39 U/L Normal 34-104 [facility] Comment on above: Performed By: #### A 1C NAKIA Laboy CMP #### [facility] [address] ALT [Catalytic activity/Vol] 12 U/L Normal 7-52 [facility] Comment on above: Performed By: #### A 1C NAKIA Laboy CMP #### [facility] [address] Anion gap [Moles/Vol] 6.4 mmol/L Normal 6.0-15.0 [facility] Comment on above: Performed By: #### A Treva YEE eA CMP #### [address] AST [Catalytic activity/Vol] 20 U/L Normal 13-39 [facility] Comment on above: Performed By: #### A 1C NAKIA Laboy CMP #### [address] Bilirubin [Mass/Vol] 0.4 mg/dL Normal 0.3-1.0 [facility] Comment on above: Performed By: #### A Treva YEE eA CMP #### [address] Calcium [Mass/Vol] 9.3 mg/dL Normal 8.6-10.3 [facility] Comment on above: Performed By: #### A Treva YEE eA CMP #### [address] Chloride [Moles/Vol] 108 mmol/L High 98-107 [facility] Comment on above: Performed By: #### A Treva YEE eA CMP #### [address] CO2 [Moles/Vol] 30.7 mmol/L Normal 21.0-31.0 [facility] Comment on above: Performed By: #### A Treva YEE eA, CMP #### [address] Creatinine [Mass/Vol] 0.71 mg/dL Normal 0.60-1.20 [facility] Comment on above: Performed By: #### A Treva YEE eA, CMP #### [facility] [address] Creatinine Clr Calc Pharmacy 59.72 Normal [facility] Comment on above: Result Comment: PERF ORMED BY: [place] [address] PATHOLOGIST RIP SAW OPERATOR ELE SPRING M.D. Performed By: #### A Treva YEE eA, CMP #### [facility] [address] GFR/1.73 sq M.predicted MDRD (S/P/Bld) [Vol rate/Area] mL/min/{1.73_m2} Normal [facility] Comment on above: Performed By: #### A Treva YEE eA CMP #### [facility] [address] Globulin (S) [Mass/Vol] 2.3 g/dL Normal [facility] Comment on above: Performed By: #### A Treva YEE eA CMP #### [address] Glucose [Mass/Vol] 101 mg/dL High 70-100 [facility] Comment on above: Result Comment: [place] Glucose Reference Range is dependent on time and content of last meal. Glucose of more than 200 mg/dL in a nonstressed, ambulatory subject supports the diagnosis of Diabetes Mellitus. ADA recommended reference range Performed By: #### A Treva YEE eA, CMP #### [facility] [address] Potassium [Moles/Vol] 4.1 mmol/L Normal 3.5-5.1 [facility] Comment on above: Performed By: #### A Treva YEE eA, CMP #### [facility] [address] Protein [Mass/Vol] 5.6 g/dL Low 6.4-8.9 [facility] Comment on above: Performed By: #### A 1C WT Narda, CMP #### [address] Sodium [Moles/Vol] 141 mmol/L Normal 136-145 [facility] Comment on above: Performed By: #### A 1C WTBrigitte Laboy, CMP #### [address] Urea nitrogen [Mass/Vol] 22 mg/dL Normal 7-25 [facility] Comment on above: Performed By: #### A 1C WTBrigitte Laboy, CMP #### [address] Urine Cultureon 06-04-2023 Bacteria identified Cx Nom (U) <9,000 colonies/ml mixed bacterial skin contaminants 2 Days PERFORMED BY: [place] [address] PATHOLOGIST RIP SAW OPERATOR ELE SPRING M.D. Normal [facility] Comment on above: Performed By: #### A 1C WT Narda, CMP #### [address] A1C with Estimated Average G luon 06-01-2023 Glucose [Mass/Vol] 126 mg/dL Normal [facility] Comment on above: Result Comment: PERF ORMED BY: [place] [address] PATHOLOGIST RIP SAW OPERATOR ELE SPRING M.D. Performed By: #### A 1C WT Narda, CMP #### [address] HbA1c (Bld) [Mass fraction] 6.0 % High 4.3-5.6 [facility] Comment on above: Result Comment: Incr eased risk for diabetes: 5.7 - 6.4 diabetes: >6.4 glycemic control for adults with diabetes: <7.0 Performed By: #### A 1C WTH Narda, CMP #### [address] Complete Blood Count Auto Di ffon 06-01-2023 Basophils (Bld) [#/Vol] 0.0 10*3/uL Normal 0.0-0.2 [facility] Comment on above: Result Comment: PERF ORMED BY: [place] [address] PATHOLOGIST RIP SAW OPERATOR ELE SPRING M.D. Performed By: #### A 1C WTH eA, CBC, CMP #### [address] Basophils/100 WBC (Bld) 0.5 % Normal . [facility] Comment on above: Performed By: #### A 1C WTH eA, CBC, CMP #### [address] Eosinophils (Bld) [#/Vol] 0.1 10*3/uL Normal 0.0-0.45 [facility] Comment on above: Performed By: #### A 1C WTH eA, CBC, CMP #### [address] Eosinophils/100 WBC (Bld) 1.5 % Normal . [facility] Comment on above: Performed By: #### A 1C WTH eA, CBC, CMP #### [address] Erythrocyte distribution width (RBC) [Ratio] 12.9 % Normal 11.9-15.3 [facility] Comment on above: Performed By: #### A 1C WTH eA, CBC, CMP #### [address] Hematocrit (Bld) [Volume fraction] 35.4 % Normal 34.0-46.4 [facility] Comment on above: Performed By: #### A 1C WTH eA, CBC, CMP #### [address] Hemoglobin (Bld) [Mass/Vol] 11.9 g/dL Normal 11.8-15.4 [facility] Comment on above: Performed By: #### A 1C WTH eA, CBC, CMP #### [facility] [address] Lymphocytes (Bld) [#/Vol] 1.6 10*3/uL Normal 1.00-4.8 [facility] Comment on above: Performed By: #### A 1C WTH eA, CBC, CMP #### [facility] [address] Lymphocytes/100 WBC (Bld) 31.4 % Normal . [facility] Comment on above: Performed By: #### A 1C WTH eA, CBC, CMP #### [address] MCH (RBC) [Entitic mass] 29.5 pg Normal 24.7-34.3 [facility] Comment on above: Performed By: #### A 1C WTH eA, CBC, CMP #### [address] MCV (RBC) [Entitic vol] 88.1 fL Normal 80-100 [facility] Comment on above: Performed By: #### A 1C WTH eA, CBC, CMP #### [address] Mean Corpuscular HGB Conc 33.5 g/dL Normal 32.0-35.0 [facility] Comment on above: Performed By: #### A 1C WTH eA, CBC, CMP #### [address] Monocytes (Bld) [#/Vol] 0.4 10*3/uL Normal 0.0-0.8 [facility] Comment on above: Performed By: #### A 1C WTH eA, CBC, CMP #### [place] [address] [place] Monocytes/100 WBC (Bld) 8.8 % Normal . [facility] Comment on above: Performed By: #### A 1C WTH eA, CBC, CMP #### [address] Neutrophils (Bld) [#/Vol] 2.9 10*3/uL Normal 1.8-7.7 [facility] Comment on above: Performed By: #### A 1C WT Narda, CBC, CMP #### [address] Neutrophils/100 WBC (Bld) 57.8 % Normal . [facility] Comment on above: Performed By: #### A 1C WT Narda, CBC, CMP #### [address] NRBC% 0.1 /100{WBC} Normal 0-0.5 [facility] Comment on above: Performed By: #### A 1C WT Narda, CBC, CMP #### [address] Platelet mean volume (Bld) [Entitic vol] 7.4 fL Normal 6.3-10.7 [facility] Comment on above: Performed By: #### A 1C WT Narda, CBC, CMP #### [address] Platelets (Bld) [#/Vol] 220 10*3/uL Normal 150-450 [facility] Comment on above: Performed By: #### A 1C WT Narda, CBC, CMP #### [address] RBC (Bld) [#/Vol] 4.02 10*6/uL Normal 3.60-5.00 [facility] Comment on above: Performed By: #### A 1C WT Narda, CBC, CMP #### [address] WBC (Bld) [#/Vol] 5.1 10*3/uL Normal 3.8-11.6 [facility] Comment on above: Performed By: #### A 1C WT Narda, CBC, CMP #### [address] Comprehensive Metabolic Pane chito 06-01-2023 Albumin [Mass/Vol] 3.4 g/dL Low 3.5-5.7 [facility] Comment on above: Performed By: #### A Treva YEE eA CMP #### [facility] [address] [place] [address] [place] Albumin/Globulin [Mass ratio] 1.5 {ratio} Normal [facility] Comment on above: Performed By: #### A Treva YEE eA CMP #### [facility] [address] [place] [id number] [facility] ALP [Catalytic activity/Vol] 37 U/L Normal 34-104 [facility] Comment on above: Performed By: #### A 1C NAKIA Laboy CMP #### [facility] [address] ALT [Catalytic activity/Vol] 13 U/L Normal 7-52 [facility] Comment on above: Performed By: #### A Treva YEE eA CMP #### [facility] [address] Anion gap [Moles/Vol] 8.2 mmol/L Normal 6.0-15.0 [facility] Comment on above: Performed By: #### A Treva YEE eA CMP #### [facility] [address] [place] [address] [place] AST [Catalytic activity/Vol] 15 U/L Normal 13-39 [facility] Comment on above: Performed By: #### A 1C NAKIA Laboy CMP #### [facility] [address] [place] [address] [place] Bilirubin [Mass/Vol] 0.3 mg/dL Normal 0.3-1.0 [facility] Comment on above: Performed By: #### A Treva YEE eA, CMP #### [facility] [address] [place] [id number] [place] Calcium [Mass/Vol] 9.1 mg/dL Normal 8.6-10.3 [facility] Comment on above: Performed By: #### A Treva YEE eA, CMP #### [facility] [address] [place] [id number] [place] Chloride [Moles/Vol] 109 mmol/L High 98-107 [facility] Comment on above: Performed By: #### A 1C NAKIA Laboy, CMP #### [facility] [address] CO2 [Moles/Vol] 27.8 mmol/L Normal 21.0-31.0 [facility] Comment on above: Performed By: #### A Treva YEE eA, CMP #### [facility] [address] Creatinine [Mass/Vol] 0.58 mg/dL Low 0.60-1.20 [facility] Comment on above: Performed By: #### A Treva FUENTES Narda, CMP #### [facility] [address] [place] [address] [place] Creatinine Clr Calc Pharmacy 59.72 [facility] Comment on above: Result Comment: PERF ORMED BY: [place] [address] PATHOLOGIST RIP SAW OPERATOR ELE SPRING M.D. Performed By: #### A 1C ALFREDO Narda, CMP #### [address] GFR/1.73 sq M.predicted MDRD (S/P/Bld) [Vol rate/Area] mL/min/{1.73_m2} [facility] Comment on above: Performed By: #### A 1C ALFREDO Narda, CMP #### [address] Globulin (S) [Mass/Vol] 2.2 g/dL Normal [facility] Comment on above: Performed By: #### A 1C WT Narda, CMP #### [address] Glucose [Mass/Vol] 94 mg/dL Normal 70-100 [facility] Comment on above: Result Comment: [place] Glucose Reference Range is dependent on time and content of last meal. Glucose of more than 200 mg/dL in a nonstressed, ambulatory subject supports the diagnosis of Diabetes Mellitus. ADA recommended reference range Performed By: #### A 1C NAKIA Laboy, CMP #### [address] Potassium [Moles/Vol] 4.0 mmol/L Normal 3.5-5.1 [facility] Comment on above: Performed By: #### A 1C NAKIA Laboy, CMP #### [facility] [address] Protein [Mass/Vol] 5.6 g/dL Low 6.4-8.9 [facility] Comment on above: Performed By: #### A 1C NAKIA Laboy, CMP #### [address] Sodium [Moles/Vol] 141 mmol/L Normal 136-145 [facility] Comment on above: Performed By: #### A 1C NAKIA Laboy, CMP #### [address] Urea nitrogen [Mass/Vol] 18 mg/dL Normal 7-25 [facility] Comment on above: Performed By: #### A 1C NAKIA Laboy, CMP #### [address] Dipstick and Microscopicon 0 05-31-2023 Appearance (U) Slightly Cloudy Critically abnormal Clear [facility] Comment on above: Order Comment: Name Collection Type:: Clean-Voided Midstream Performed By: #### A 1C NAKIA Laboy, CMP #### [address] Bacteria,Urine None Seen Normal None Seen [facility] Comment on above: Order Comment: Name Collection Type:: Clean-Voided Midstream Performed By: #### A 1C NAKIA Laboy, CMP #### [place] [address] [place] Bilirubin,Urine Negative Normal Negative [facility] Comment on above: Order Comment: Name Collection Type:: Clean-Voided Midstream Performed By: #### A 1C NAKIA Laboy, CMP #### [place] [address] [place] Color (U) Yellow Normal Yellow [facility] Comment on above: Order Comment: Name Collection Type:: Clean-Voided Midstream Performed By: #### A 1C WTH eA, CMP #### [facility] [address] [place] [id number] [place] Glucose Ql (U) Normal Normal Normal [facility] Comment on above: Order Comment: Name Collection Type:: Clean-Voided Midstream Performed By: #### A 1C WTH eA, CMP #### [facility] [address] [place] [address] [place] Hyaline Casts,Urine 9-19 High 0-8 [facility] Comment on above: Order Comment: Name Collection Type:: Clean-Voided Midstream Result Comment: PERF ORMED BY: [place] [address] PATHOLOGIST RIP SAW OPERATOR ELE SPRING M.D. Performed By: #### A 1C WTBrigitte eA, CMP #### [address] Ketones Ql (U) Negative Normal Negative [facility] Comment on above: Order Comment: Name Collection Type:: Clean-Voided Midstream Performed By: #### A 1C WTH eA, CMP #### [place] [address] [place] Leukocyte esterase Test strip Ql (U) 2+ High Negative [facility] Comment on above: Order Comment: Name Collection Type:: Clean-Voided Midstream Performed By: #### A 1C WTH eA, CMP #### [place] [address] [place] Nitrite,Urine Negative Normal Negative [facility] Comment on above: Order Comment: Name Collection Type:: Clean-Voided Midstream Performed By: #### A 1C WTH eA, CMP #### [facility] [address] [place] [address] [place] Occult Blood,Urine Negative Normal Negative [facility] Comment on above: Order Comment: Name Collection Type:: Clean-Voided Midstream Result Comment: PERF ORMED BY: [place] [address] PATHOLOGIST RIP SAW OPERATOR ELE SPRING M.D. Performed By: #### A 1C WTBrigitte eA, CMP #### [address] Othe Crystals,Urine None Seen Normal [facility] Comment on above: Order Comment: Name Collection Type:: Clean-Voided Midstream Performed By: #### A 1C WTH eA, CMP #### [address] pH (U) 6.0 [pH] Normal 5.0-9.0 [facility] Comment on above: Order Comment: Name Collection Type:: Clean-Voided Midstream Performed By: #### A 1C WTH eA, CMP #### [address] Protein,Urine Negative Normal Negative [facility] Comment on above: Order Comment: Name Collection Type:: Clean-Voided Midstream Performed By: #### A 1C WTH eA, CMP #### [address] RBC,Urine 5-9 High 0-4 [facility] Comment on above: Order Comment: Name Collection Type:: Clean-Voided Midstream Performed By: #### A 1C WTH eA, CMP #### [address] Specificy [place],Urine 1.030 Normal 1.001-1.030 [facility] Comment on above: Order Comment: Name Collection Type:: Clean-Voided Midstream Performed By: #### A 1C WTH eA, CMP #### [address] Squamous Epithelial Cell,Urine 1-2 Normal 0-2 [facility] Comment on above: Order Comment: Name Collection Type:: Clean-Voided Midstream Performed By: #### A 1C WTH eA, CMP #### [address] Uric Acid Crystals,Urine 1+ Normal [facility] Comment on above: Order Comment: Name Collection Type:: Clean-Voided Midstream Performed By: #### A 1C WTH eA, CMP #### [address] [place] [address] [place] Urobilinogen,Urine Normal Normal Normal [facility] Comment on above: Order Comment: Name Collection Type:: Clean-Voided Midstream Performed By: #### A 1C [facility] Narda, CMP #### [address] WBC,Urine 5-9 High 0-4 [facility] Comment on above: Order Comment: Name Collection Type:: Clean-Voided Midstream Performed By: #### A 1C [facility] Narda, CMP #### [address] MR head/brain wo conon 05-31 MR head/brain wo con [facility] [place] [address] [place] [address] MRI Report Signed Patient: Yoana Bullock MR#: [id number] 21 : 1955 Acct:[id number] Age/Sex: 67 / F ADM Date: 05/25/23 Loc: Room: [address] [place] [address] Type: ADM IN Attending Dr: Sridhar Hoffmna MD Copies to: Sridhar Hoffman MD Ordering Provider: Sridhar Hoffman MD Date of Service: 05/31/23 MR/MR head/brain wo con: AMS, Psychosis EXAMINATION: MRI OF THE BRAIN WITHOUT CONTRAST CLINICAL HISTORY: Psychosis. COMPARISON: None TECHNIQUE: Multiecho, multiplanar imaging of the brain was performed without enhancement. No evidence of restriction diffusion is an diffusion-weighted imaging. No evidence of blood products are seen on T2 Star imaging. Cortical atrophy with mild chronic microvascular ischemic changes. Midbrain, ninoska, medulla and cerebellum appear unremarkable. Intraorbital contents appear unremarkable. Visualized paranasal sinuses are clear. Normal flow voids are noted. Midline structures appear unremarkable. MR/MR head/brain wo con IMPRESSION: NO ACUTE INTRACRANIAL ABNORMALITY. Impression dictated by: Raymundo Coates Jr., D.O.05/31/2023 1:55 PM Dictation Location: [place] [address] Transcribed By: [facility] 05/31/23 1355 Dictated By: Raymundo Coates Jr, DO 05/31/23 1348 Signed By: 05/31/23 1355 Normal [facility] Urine Cultureon 05-31-2023 Bacteria identified Cx Nom (U) 15,000 colonies/ml mixed bacterial skin contaminants 2 Days PERFORMED BY: [place] [id number] PATHOLOGIST RIP SAW OPERATOR ELE SPRING M.D. [facility] Comment on above: Performed By: #### A 1C ALFREDO Narda, CMP #### [place] [id number] [facility] Ammoniaon 05-29-2023 Ammonia (P) [Moles/Vol] 21 umol/L Normal 11-35 [facility] Comment on above: Result Comment: PERF ORMED BY: [place] [address] PATHOLOGIST RIP SAW OPERATOR ELE SPRING M.D. Performed By: #### A 1C NAKIA Laboy, CMP #### [address] Vitamin B12on 05-29-2023 Cobalamin (Vitamin B12) [Mass/Vol] 380 pg/mL Normal 180-914 [facility] Comment on above: Result Comment: PERF ORMED BY: [place] [address] PATHOLOGIST RIP SAW OPERATOR ELE SPRING M.D. Performed By: #### A 1C ALFREDO Narda, CMP #### [place] [id number] [facility] Lipid Panelon 05-26-2023 Cholesterol [Mass/Vol] 177 mg/dL Normal 140-200 [facility] Comment on above: Result Comment: Chol less than 200 mg/dl low risk Chol 201-239 mg/dl borderline risk Chol 240 mg/dl and greater high risk Performed By: #### L IPID, [id number], TSH3 wRFLX #### [address] Cholesterol in HDL [Mass/Vol] 62 mg/dL Normal 23-92 [facility] Comment on above: Result Comment: HDL CHOL ATP-III CLASSIFICATION Cardiovascular Risk HDL > or equal to 60 mg/dL LOW HDL < 40 mg/dL HIGH Performed By: #### L IPID, [id number], TSH3 wRFLX #### [facility] [address] Cholesterol.total/Choles terol in HDL [Mass ratio] 2.9 {ratio} Normal <5.0 [facility] Comment on above: Performed By: #### L IPID, [id number], TSH3 wRFLX #### [address] LDL Cholesterol,Calculated 95 mg/dL Normal 0-100 [facility] Comment on above: Result Comment: LDL ATP III CLASSIFICATION LDL less than 100 mg/dL Optimal LDL 100-129 mg/dL Near or above optimal LDL 130-159 mg/dL Borderline high LDL 160-189 mg/dL High LDL greater than 189 mg/dL Very high Performed By: #### L IPID, [id number], TSH3 wRFLX #### [address] Triglyceride w/Reflex 100 mg/dL Normal 0-149 [facility] Comment on above: Result Comment: TRIG ATP III CLASSIFICATION TRIG less than 150 mg/dL Normal TRIG 150-199 mg/dL Borderline high TRIG 200-500 mg/dL High TRIG greater than 500 mg/dL Very high Standard traceable to the Center for Disease Conrtrol and Prevention (CDC) test method. Performed By: #### L IPID, [id number], TSH3 wRFLX #### [address] VLDL CHOLESTEROL 20 mg/dL Normal [facility] Comment on above: Performed By: #### L IPID, [id number], TSH3 wRFLX #### [address] Thyroid Stim Hormone w/Rflxo n 05-26-2023 Thyroid Stim Hormone w/Rflx 2.11 u[iU]/mL Normal 0.45-5.33 [facility] Comment on above: Performed By: #### L IPID, [id number], TSH3 wRFLX #### [facility] [address] [place] [address] [facility] Vitamin D 25 Hydroxy Totalon 05-26-2023 Vitamin D 25 Hydroxy Total 25.4 ng/mL Low 30-100 [facility] Comment on above: Result Comment: HUSAM MIN D STATUS 25(OH)VITAMIN D RANGE (ng/mL) Deficient <20 Insufficient 20 to <30 Sufficient 30 to 100 Reference: Shaq MF,Monica NC, Fabrizio , et al. Evaluation,treatment, and prevention of vitamin D deficiency; an Endocrine Society clinical practice guideline. JCEM. 2010; 96(7):1911-30. PERFORMED BY: [place] [address] PATHOLOGIST RIP SAW OPERATOR ELE SPRING M.D. Performed By: #### L IPID, [id number], TSH3 wRFLX #### [facility] [address] [place] [id number] [facility] Alanine aminotransferase [En zymatic activity/volume] in Serum or PlasmaOrdered By: Robert Caruso on 05-25-2023 ALT [Catalytic activity/Vol] 14 U/L 7-52 [facility] Albumin [Mass/volume] in Ser um or Plasma by Bromocresol green (BCG) dye binding methoOrdered By: Robert Caruso on 05-25-2023 Albumin BCG dye [Mass/Vol] 4.4 g/dL 3.5-5.7 [facility] Alkaline phosphatase [Enzyma tic activity/volume] in Serum or PlasmaOrdered By: Robert Caruso on 05-25-2023 ALP [Catalytic activity/Vol] 48 U/L 34-104 [facility] Amphetamine Screen Ql (U)Ord ered By: Robert Caruso on 05-25-2023 Amphetamines Ql (U) Negative Negative [facility] Aspartate aminotransferase [ Enzymatic activity/volume] in Serum or PlasmaOrdered By: Robert Caruso on 05-25-2023 AST [Catalytic activity/Vol] 21 U/L 13-39 [facility] Barbiturates [Presence] in U rine by Screen methodOrdered By: Robert Caruso on 05-25-2023 Barbiturates Screen Ql (U) Negative Negative [facility] Basophils Auto (Bld) [#/Vol] Ordered By: Robert Caruso on 05-25-2023 Basophils (Bld) [#/Vol] 0.0 10*3/uL 0.0-0.2 [facility] Basophils/100 WBC Auto (Bld) Ordered By: Robert Caruso on 05-25-2023 Basophils/100 WBC (Bld) 0.5 % . [facility] Benzodiazepines Screen Ql (U )Ordered By: Robert Caruso on 05-25-2023 Benzodiazepines Ql (U) Negative Negative [facility] Benzoylecgonine [Presence] i n Urine by Screen methodOrdered By: Robert Caruso on 05-25-2023 Benzoylecgonine Screen Ql (U) Negative Negative [facility] Bilirubin.total [Mass/volume ] in Serum or PlasmaOrdered By: Robert Caruso on 05-25-2023 Bilirubin [Mass/Vol] 0.8 mg/dL 0.3-1.0 [facility] Calcium [Mass/volume] in Ser um or PlasmaOrdered By: Robert Caruso on 05-25-2023 Calcium [Mass/Vol] 10.1 mg/dL 8.6-10.3 [facility] Cannabinoids [Presence] in U rine by Screen methodOrdered By: Robert Caruso on 05-25-2023 Cannabinoids Screen Ql (U) Negative Negative [facility] Comment on above: These are unconfirme d results and should not be used for legal purposes. Drug Cut-Off Concentration: AMPH 1000 ng/mL GABRIELA 200 ng/mL SIVA 200 ng/mL COCM 300 ng/mL OP 300 ng/mL PCP 25 ng/mL THC 20 ng/mL Carbon dioxide, total [Moles /volume] in Serum or PlasmaOrdered By: Robert Caruso on 05-25-2023 CO2 [Moles/Vol] 29.6 mmol/L 21.0-31.0 [facility] Chloride [Moles/volume] in S anupam or PlasmaOrdered By: Robert Caruso on 05-25-2023 Chloride [Moles/Vol] 102 mmol/L 98-107 [facility] Complete Blood Count Auto Di ffon 05-25-2023 Basophils (Bld) [#/Vol] 0.0 10*3/uL Normal 0.0-0.2 [facility] Comment on above: Result Comment: PERF ORMED BY: [place] [address] PATHOLOGIST RIP SAW OPERATOR ELE SPRING M.D. Performed By: #### A 1C NAKIA Laboy, CMP #### [facility] [address] Basophils/100 WBC (Bld) 0.5 % Normal . [facility] Comment on above: Performed By: #### A Treva YEE eA CMP #### [facility] [address] Eosinophils (Bld) [#/Vol] 0.0 10*3/uL Normal 0.0-0.45 [facility] Comment on above: Performed By: #### A Treva YEE eA CMP #### [place] [address] [place] Eosinophils/100 WBC (Bld) 0.1 % Normal . [facility] Comment on above: Performed By: #### A Treva YEE eA CMP #### [address] Erythrocyte distribution width (RBC) [Ratio] 12.9 % Normal 11.9-15.3 [facility] Comment on above: Performed By: #### A Treva YEE eA CMP #### [facility] [address] Hematocrit (Bld) [Volume fraction] 41.6 % Normal 34.0-46.4 [facility] Comment on above: Performed By: #### A Treva YEE eA CMP #### [address] Hemoglobin (Bld) [Mass/Vol] 14.1 g/dL Normal 11.8-15.4 [facility] Comment on above: Performed By: #### A Treva YEE eA CMP #### [address] [place] [address] [place] Lymphocytes (Bld) [#/Vol] 1.1 10*3/uL Normal 1.00-4.8 [facility] Comment on above: Performed By: #### A Treva YEE eA, CMP #### [facility] [address] Lymphocytes/100 WBC (Bld) 15.5 % Normal . [facility] Comment on above: Performed By: #### A Treva YEE eA, CMP #### [address] MCH (RBC) [Entitic mass] 29.9 pg Normal 24.7-34.3 [facility] Comment on above: Performed By: #### A Treva YEE eA CMP #### [address] MCV (RBC) [Entitic vol] 87.8 fL Normal 80-100 [facility] Comment on above: Performed By: #### A Treva YEE eA, CMP #### [address] Mean Corpuscular HGB Conc 34.0 g/dL Normal 32.0-35.0 [facility] Comment on above: Performed By: #### A Treva YEE eA, CMP #### [address] Monocytes (Bld) [#/Vol] 0.3 10*3/uL Normal 0.0-0.8 [facility] Comment on above: Performed By: #### A Treva YEE eA, CMP #### [place] [address] [place] Monocytes/100 WBC (Bld) 17.76 % Normal 0.00-20.00 [facility] Comment on above: Performed By: #### A Treva YEE eA, CMP #### [address] Monocytes/100 WBC (Bld) 3.9 % Normal . [facility] Comment on above: Performed By: #### A 1C NAKIA Laboy, CMP #### [facility] [address] Neutrophils (Bld) [#/Vol] 5.6 10*3/uL Normal 1.8-7.7 [facility] Comment on above: Performed By: #### A Treva YEE eA, CMP #### [facility] [address] Neutrophils/100 WBC (Bld) 80.0 % Normal . [facility] Comment on above: Performed By: #### A Treva YEE eA, CMP #### [facility] [address] NRBC% 0.0 /100{WBC} Normal 0-0.5 [facility] Comment on above: Performed By: #### A Treva YEE eA, CMP #### [address] Platelet mean volume (Bld) [Entitic vol] 7.9 fL Normal 6.3-10.7 [facility] Comment on above: Performed By: #### A Treva YEE eA, CMP #### [address] Platelets (Bld) [#/Vol] 292 10*3/uL Normal 150-450 [facility] Comment on above: Performed By: #### A Treva YEE eA, CMP #### [facility] [address] RBC (Bld) [#/Vol] 4.74 10*6/uL Normal 3.60-5.00 [facility] Comment on above: Performed By: #### A Treva YEE eA, CMP #### [facility] [address] [place] [address] [place] WBC (Bld) [#/Vol] 7.0 10*3/uL Normal 3.8-11.6 [facility] Comment on above: Performed By: #### A Treva YEE eA, CMP #### [address] Comprehensive Metabolic Pane chito 05-25-2023 Albumin [Mass/Vol] 4.4 g/dL Normal 3.5-5.7 [facility] Comment on above: Performed By: #### A Treva YEE eA, CMP #### [facility] [address] Albumin/Globulin [Mass ratio] 1.5 {ratio} Normal [facility] Comment on above: Performed By: #### A Treva YEE eA CMP #### [facility] [address] ALP [Catalytic activity/Vol] 48 U/L Normal 34-104 [facility] Comment on above: Performed By: #### A Treva YEE eA CMP #### [facility] [address] ALT [Catalytic activity/Vol] 14 U/L Normal 7-52 [facility] Comment on above: Performed By: #### A Treva YEE eA CMP #### [address] Anion gap [Moles/Vol] 10.1 mmol/L Normal 6.0-15.0 [facility] Comment on above: Performed By: #### A Treva YEE eA CMP #### [address] AST [Catalytic activity/Vol] 21 U/L Normal 13-39 [facility] Comment on above: Performed By: #### A Treva YEE eA CMP #### [address] Bilirubin [Mass/Vol] 0.8 mg/dL Normal 0.3-1.0 [facility] Comment on above: Performed By: #### A Treva YEE eA CMP #### [address] Calcium [Mass/Vol] 10.1 mg/dL Normal 8.6-10.3 [facility] Comment on above: Performed By: #### A Treva YEE eA CMP #### [address] Chloride [Moles/Vol] 102 mmol/L Normal 98-107 [facility] Comment on above: Performed By: #### A Treva YEE eA, CMP #### [address] CO2 [Moles/Vol] 29.6 mmol/L Normal 21.0-31.0 [facility] Comment on above: Performed By: #### A Treva YEE eA, CMP #### [address] Creatinine [Mass/Vol] 0.76 mg/dL Normal 0.60-1.20 [facility] Comment on above: Performed By: #### A Treva YEE eA, CMP #### [address] Creatinine Clr Calc Pharmacy 59.72 Normal [facility] Comment on above: Result Comment: PERF ORMED BY: [place] [address] PATHOLOGIST RIP SAW OPERATOR ELE SPRING M.D. Performed By: #### A Treva YEE eA, CMP #### [address] GFR/1.73 sq M.predicted MDRD (S/P/Bld) [Vol rate/Area] mL/min/{1.73_m2} [facility] Comment on above: Performed By: #### A Treva YEE eA, CMP #### [address] Globulin (S) [Mass/Vol] 2.9 g/dL Normal [facility] Comment on above: Performed By: #### A Treva YEE eA, CMP #### [address] Glucose [Mass/Vol] 120 mg/dL High 70-100 [facility] Comment on above: Result Comment: [place] Glucose Reference Range is dependent on time and content of last meal. Glucose of more than 200 mg/dL in a nonstressed, ambulatory subject supports the diagnosis of Diabetes Mellitus. ADA recommended reference range Performed By: #### A 1C NAKIA Laboy, CMP #### [facility] [address] Potassium [Moles/Vol] 3.7 mmol/L Normal 3.5-5.1 [facility] Comment on above: Performed By: #### A 1C ALFREDO Narda, CMP #### [facility] [address] Protein [Mass/Vol] 7.3 g/dL Normal 6.4-8.9 [facility] Comment on above: Performed By: #### A 1C ALFREDO Narda, CMP #### [facility] [address] Sodium [Moles/Vol] 138 mmol/L Normal 136-145 [facility] Comment on above: Performed By: #### A 1C ALFREDO Narda, CMP #### [address] Urea nitrogen [Mass/Vol] 12 mg/dL Normal 7-25 [facility] Comment on above: Performed By: #### A 1C [facility] Narda, CMP #### [address] Creatinine [Mass/volume] in Serum or PlasmaOrdered By: oRbert Caruso on 05-25-2023 Creatinine [Mass/Vol] 0.76 mg/dL 0.60-1.20 [facility] Drug Screen,Urineon 05-25-19 24 Amphetamine Screen,Urine Negative Normal Negative [facility] Comment on above: Performed By: #### U [facility] #### [address] Barbiturate Screen,Urine Negative Normal Negative [facility] Comment on above: Performed By: #### U KEVIN CG #### [address] Benzodiazepines Screen,Urine Negative Normal Negative [facility] Comment on above: Performed By: #### U KEVIN CG #### [address] Cannabinoid Screen,Urine Negative Normal Negative [facility] Comment on above: Result Comment: Thes e are unconfirmed results and should not be used for legal purposes. Drug Cut-Off Concentration: AMPH 1000 ng/mL GABRIELA 200 ng/mL SIVA 200 ng/mL COCM 300 ng/mL OP 300 ng/mL PCP 25 ng/mL THC 20 ng/mL PERFORMED BY: [place] [address] PATHOLOGIST RIP SAW OPERATOR ELE SPRING M.D. Performed By: #### U [facility] #### [address] Cocaine Screen,Urine Negative Normal Negative [facility] Comment on above: Performed By: #### [facility] #### [address] Opiate Screen,Urine Negative Normal Negative [facility] Comment on above: Performed By: #### U KEVIN, [facility] #### [place] [address] [place] Phencyclidine Screen,Urine Negative Normal Negative [facility] Comment on above: Performed By: #### U [facility] #### [address] ECG 12 lead ECGon 05-25-2023 ECG 12 lead ECG [facility] [place] [address] [place] [address] Electrocardiograph Report Signed Patient: Yoana Bullock MR#: [id number] 21 : 1955 Acct:[id number] Age/Sex: 67 / F ADM Date: 05/25/23 Loc: Room: [address] [place] [address] Type: ADM IN Attending Dr: Sridhar Hoffman MD Ordering Provider: Sridhar Hoffman MD Date of Service: 05/25/2302/07/1549 ECG/ECG 12 lead ECG: baseline Copies to: Test Reason : Blood Pressure : / mmHG Vent. Rate : 088 BPM Atrial Rate : 088 BPM P-R Int : 130 ms QRS Dur : 070 ms QT Int : 344 ms P-R-T Axes : 031 -03 057 degrees QTc Int : 416 ms Normal sinus rhythm Normal ECG No previous ECGs available Confirmed by Fidel Flood ([id number]) on 05/25/2023 5:09:43 PM Referred By: Electronically Signed By:Fidel Flood Transcribed By: MUS Signed By Fidel Flood MD 05/25/23 1709 Normal [facility] Eosinophils Auto (Bld) [#/Vo l]Ordered By: Robert Caruso on 05-25-2023 Eosinophils (Bld) [#/Vol] 0.0 10*3/uL 0.0-0.45 [facility] Eosinophils/100 WBC Auto (Bl d)Ordered By: Robret Caruso on 05-25-2023 Eosinophils/100 WBC (Bld) 0.1 % . [facility] Erythrocyte distribution wid th Auto (RBC) [Ratio]Ordered By: Robert Caruso on 05-25-2023 Erythrocyte distribution width (RBC) [Ratio] 12.9 % 11.9-15.3 [facility] Ethanol [Mass/volume] in Ser um or PlasmaOrdered By: Robert Caruso on 05-25-2023 Ethanol [Mass/Vol] mg/dL [facility] Ethanol [Mass/Vol] TNP [facility] Comment on above: Test not performed Ethyl Alcohol Profileon Ethanol [Mass/Vol] mg/dL Normal [facility] Comment on above: Performed By: #### A 1C [facility] Narda CMP #### [facility] [address] Percent Ethanol Not performed Normal [facility] Comment on above: Result Comment: PERF ORMED BY: [place] [address] PATHOLOGIST RIP SAW OPERATOR ELE SPRING M.D. Performed By: #### A 1C [facility] Narda CMP #### [facility] [address] Globulin Calc (S) [Mass/Vol] Ordered By: Robert Caruso on 05-25-2023 Globulin (S) [Mass/Vol] 2.9 g/dL [facility] Glucose [Mass/volume] in Ser um or PlasmaOrdered By: Robert Caruso on 05-25-2023 Glucose [Mass/Vol] 120 mg/dL 70-100 [facility] Comment on above: ADA recommended refe rence rangeRandom Glucose Reference Range is dependent on time and content of last meal. Glucose of more than 200 mg/dL in a nonstressed, ambulatory subject supports the diagnosis of Diabetes Mellitus. HCG ( test) IA.rapi d Ql (U)Ordered By: Robert Caruso on 05-25-2023 HCG ( test) Ql (U) Negative [facility] HCG,Urineon 05-25-2023 Beta HCG ( test) Ql (U) Negative Normal [facility] Comment on above: Result Comment: PERF ORMED BY: [place] [address] PATHOLOGIST RIP SAW OPERATOR ELE SPRING M.D. Performed By: #### U [facility] #### [address] Hematocrit Auto (Bld) [Volum e fraction]Ordered By: Robert Caruso on 05-25-2023 Hematocrit (Bld) [Volume fraction] 41.6 % 34.0-46.4 [facility] Hemoglobin [Mass/volume] in BloodOrdered By: Robert Caruso on 05-25-2023 Hemoglobin (Bld) [Mass/Vol] 14.1 g/dL 11.8-15.4 [facility] Leukocytes [#/volume] correc gage for nucleated erythrocytes in Blood by Automated counOrdered By: Robert Caruso on 05-25-2023 WBC corrected for nucl RBC Auto (Bld) [#/Vol] 7.0 10*3/uL 3.8-11.6 [facility] Lymphocytes Auto (Bld) [#/Vo l]Ordered By: Robert Caruso on 05-25-2023 Lymphocytes (Bld) [#/Vol] 1.1 10*3/uL 1.00-4.8 [facility] Lymphocytes/100 WBC Auto (Bl d)Ordered By: Robert Caruso on 05-25-2023 Lymphocytes/100 WBC (Bld) 15.5 % . [facility] MCH Auto (RBC) [Entitic mass ]Ordered By: Robert Caruso on 05-25-2023 MCH (RBC) [Entitic mass] 29.9 pg 24.7-34.3 [facility] MCHC Auto (RBC) [Mass/Vol]Or dered By: Robert Caruso on 05-25-2023 MCHC (RBC) [Mass/Vol] 34.0 g/dL 32.0-35.0 [facility] MCV Auto (RBC) [Entitic vol] Ordered By: Robert Caruso on 05-25-2023 MCV (RBC) [Entitic vol] 87.8 fL 80-100 [facility] Monocyte distribution width [Entitic volume] in Blood by AutomatedOrdered By: Robert Caruso on 05-25-2023 Monocyte distribution width Auto (Bld) [Entitic vol] 17.76 % 0.00-20.00 [facility] Monocytes Auto (Bld) [#/Vol] Ordered By: Robert Caruso on 05-25-2023 Monocytes (Bld) [#/Vol] 0.3 10*3/uL 0.0-0.8 [facility] Monocytes/100 WBC Auto (Bld) Ordered By: Robert Caruso on 05-25-2023 Monocytes/100 WBC (Bld) 3.9 % . [facility] Neutrophils Auto (Bld) [#/Vo l]Ordered By: Robert Caruso on 05-25-2023 Neutrophils (Bld) [#/Vol] 5.6 10*3/uL 1.8-7.7 [facility] Neutrophils/100 WBC Auto (Bl d)Ordered By: Robert Caruso on 05-25-2023 Neutrophils/100 WBC (Bld) 80.0 % . [facility] No Panel InformationOrdered By: Robert Caruso on 05-25-2023 Estimated GFR (CKD-EPI) > 60.0 mL/Min [facility] Creatinine Clearance (Chem 59.72 [facility] Nucleated erythrocytes [Pres ence] in Blood by Automated countOrdered By: Robert Caruso on 05-25-2023 Nucleated RBC Auto Ql (Bld) 0.0 /100{WBC} 0-0.5 [facility] Opiates [Presence] in Urine by Screen methodOrdered By: Robert Caruso on 05-25-2023 Opiates Screen Ql (U) Negative Negative [facility] Phencyclidine Screen Ql (U)O rdered By: Robert Caruso on 05-25-2023 Phencyclidine Ql (U) Negative Negative [facility] Platelet mean volume Auto (B ld) [Entitic vol]Ordered By: Robert Caruso on 05-25-2023 Platelet mean volume (Bld) [Entitic vol] 7.9 fL 6.3-10.7 [facility] Platelets Auto (Bld) [#/Vol] Ordered By: Robert Caruso on 05-25-2023 Platelets (Bld) [#/Vol] 292 10*3/uL 150-450 [facility] Potassium [Moles/volume] in Serum or PlasmaOrdered By: Robert Caruso on 05-25-2023 Potassium [Moles/Vol] 3.7 mmol/L 3.5-5.1 [facility] Protein [Mass/volume] in Ser um or PlasmaOrdered By: Robert Caruso on 05-25-2023 Protein [Mass/Vol] 7.3 g/dL 6.4-8.9 [facility] RBC Auto (Bld) [#/Vol]Ordere d By: Robert Caruso on 05-25-2023 RBC (Bld) [#/Vol] 4.74 10*6/uL 3.60-5.00 [facility] Serum or plasma albumin/glob ulin mass ratioOrdered By: Robert Caruso on 05-25-2023 Albumin/Globulin [Mass ratio] 1.5 {ratio} [facility] Serum or plasma anion gap de terminationOrdered By: Robert Caruso on 05-25-2023 Anion gap [Moles/Vol] 10.1 mmol/L 6.0-15.0 [facility] Sodium [Moles/volume] in Ser um or PlasmaOrdered By: Robert Caruso on 05-25-2023 Sodium [Moles/Vol] 138 mmol/L 136-145 [facility] Urea nitrogen [Mass/volume] in Serum or PlasmaOrdered By: Robert Morrisonzi on 05-25-2023 Urea nitrogen [Mass/Vol] 12 mg/dL 7-25 [facility] WBC Auto (Bld) [#/Vol]Ordere d By: Robertjahaira Morrisonzi on 05-25-2023 WBC (Bld) [#/Vol] 7.0 10*3/uL 3.8-11.6 [facility] .Fentanyl Scrn wo Conf,Uron 05-20-2023 Ur Fentanyl Scrn Negative Normal NEG <1.0 [facility] Comment on above: Performed By: #### C [id number] #### [address] [address] Ur Fentanyl Scrn Qnt 0.10 ng/mL Normal <=0.99 [facility] Comment on above: Performed By: #### C [id number] #### [address] [address] .eGFRon 05-20-2023 GFR/1.73 sq M.predicted MDRD (S/P/Bld) [Vol rate/Area] mL/min/{1.73_m2} Normal >=60 [facility] Comment on above: Result Comment: [facility] Laboratories have implemented the eGFR calculation approach [...] years Performed By: #### E GFR #### [address] [address] CBC w/ Diffon 05-20-2023 Erythrocyte distribution width (RBC) [Ratio] 13.2 % Normal 11.6-14.8 [facility] Comment on above: Performed By: #### C BC #### [address] [address] Hematocrit (Bld) [Volume fraction] 40.9 % Normal 36.0-46.0 [facility] Comment on above: Performed By: #### C BC #### [address] [address] Hemoglobin (Bld) [Mass/Vol] 13.9 g/dL Normal 12.0-16.0 [facility] Comment on above: Performed By: #### C BC #### [address] [address] MCH (RBC) [Entitic mass] 30.1 pg Normal 27.0-35.0 [facility] Comment on above: Performed By: #### C BC #### [address] [address] MCHC 34.1 % Normal 31.0-37.0 [facility] Comment on above: Performed By: #### C BC #### [address] [address] MCV (RBC) [Entitic vol] 88.2 fL Normal 80.0-100.0 [facility] Comment on above: Performed By: #### C BC #### [address] [address] Platelet 250 x10*3/mcL Normal 150-450 [facility] Comment on above: Performed By: #### C BC #### [address] [address] Platelet mean volume (Bld) [Entitic vol] 7.6 fL Normal 6.7-10.6 [facility] Comment on above: Performed By: #### C BC #### [address] [address] RBC 4.63 x10*6/mcL Normal 3.80-5.20 [facility] [facility] Comment on above: Performed By: #### C BC #### [address] [address] WBC 5.6 x10*3/mcL Normal 4.5-11.0 [facility] Comment on above: Performed By: #### C BC #### [address] [address] CMPon 05-20-2023 Albumin [Mass/Vol] 4.5 g/dL Normal 3.2-4.9 [facility] Comment on above: Performed By: #### C OMP #### [address] [address] Albumin/Globulin [Mass ratio] 1.4 {ratio} Normal 1.1-2.2 [facility] Comment on above: Performed By: #### C OMP #### [address] [address] Alk Phos 47 IU/L Normal 32-91 [facility] Comment on above: Performed By: #### C OMP #### [address] [address] ALT [Catalytic activity/Vol] 18 U/L Normal 14-54 [facility] Comment on above: Performed By: #### C OMP #### [address] [address] Anion gap [Moles/Vol] 14 mmol/L Normal 7-17 [facility] Comment on above: Performed By: #### C OMP #### [address] [address] AST [Catalytic activity/Vol] 28 U/L Normal 15-41 [facility] Comment on above: Performed By: #### C OMP #### [address] [place] [address] Bili Total 0.8 mg/dL Normal 0.3-1.2 [facility] Comment on above: Performed By: #### C OMP #### [address] [address] Calcium [Mass/Vol] 10.1 mg/dL Normal 8.5-10.3 [facility] Comment on above: Performed By: #### C OMP #### [address] [address] Chloride [Moles/Vol] 100 mmol/L Normal 98-110 [facility] Comment on above: Performed By: #### C OMP #### [address] [address] CO2 [Moles/Vol] 27 mmol/L Normal 22-32 [facility] Comment on above: Performed By: #### C OMP #### [address] [place] [address] Creatinine [Mass/Vol] 0.96 mg/dL Normal 0.44-1.03 [facility] Comment on above: Performed By: #### C OMP #### [address] [place] [address] Glucose [Mass/Vol] 116 mg/dL High 70-99 [facility] Comment on above: Performed By: #### C OMP #### [address] [place] [address] Potassium [Moles/Vol] 4.0 mmol/L Normal 3.4-4.8 [facility] Comment on above: Performed By: #### C OMP #### [address] [address] Protein [Mass/Vol] 7.8 g/dL Normal 6.5-8.1 [facility] Comment on above: Performed By: #### C OMP #### [address] [address] Sodium [Moles/Vol] 137 mmol/L Normal 133-142 [facility] Comment on above: Performed By: #### C OMP #### [facility] [address] [place] [address] Urea nitrogen [Mass/Vol] 13 mg/dL Normal 8-26 [facility] Comment on above: Performed By: #### C OMP #### [facility] [address] [place] [address] Urea nitrogen/Creatinine [Mass ratio] 13.5 mg/mg Normal 10.0-20.0 [facility] Comment on above: Performed By: #### C OMP #### [facility] [address] [place] [address] CT Brain w/o Contraston CT Brain w/o [...] or other acute finding. Radiation Dose Estimate: CTDI(mGy):0.812099 / / / kVp:120.922068 / mAs:0.252683 / / / DLP(mGy-cm):5.173451 Body Part: Head CTDI(mGy):44.221569 / / / kVp:120.450983 / mAs:182.171142 / / / DLP(mGy-cm):813.3300 17Body Part: Head Final Dictated by: Tremayne Butler MD Dictated DT/TM: 05.20.2023 2:48 pm Signed by: Tremayne Butler MD Signed (Electronic Signature): 05.20.2023 2:50 pm (If Report Is Signed, Electronically Signed in Other Vendor System) Normal [facility] Diff Autoon 05-20-2023 Baso Absolute 0.0 x10*3/mcL Normal 0.0-0.2 [facility] Comment on above: Performed By: #### . Automated Diff #### [address] [address] Basophils/100 WBC (Bld) 0.5 % Normal 0.0-1.[address] [facility] Comment on above: Performed By: #### . Automated Diff #### [address] [address] Eos Absolute 0.0 x10*3/mcL Normal 0.0-0.4 [facility] Comment on above: Performed By: #### . Automated Diff #### [address] [address] Eosinophils/100 WBC (Bld) 0.4 % Normal 0.0-5.4 [facility] Comment on above: Performed By: #### . Automated Diff #### [address] [address] Lymph Absolute 1.3 x10*3/mcL Normal 1.0-4.8 [facility] Comment on above: Performed By: #### . Automated Diff #### [address] [address] Lymphocytes/100 WBC (Bld) 22.8 % Low 27.2-40.8 [facility] Comment on above: Performed By: #### . Automated Diff #### [address] [address] Pepin Absolute 0.3 x10*3/mcL Normal 0.1-1.1 [facility] Comment on above: Performed By: #### . Automated Diff #### [address] [address] Monocytes/100 WBC (Bld) 5.2 % Normal 3.7-11.[address] [facility] Comment on above: Performed By: #### . Automated Diff #### [address] [address] Neutro Absolute 4.0 x10*3/mcL Normal 1.8-7.7 [facility] Comment on above: Performed By: #### . Automated Diff #### [address] [address] Neutro Auto 71.1 % High 47.2-70.8 [facility] Comment on above: Performed By: #### . Automated Diff #### [address] [address] ED Clinical Summaryon 2023 ED Clinical Summary [address] [address] ED Clinical Summary Person Information Name: Yoana Bullock/[facility] Age: 67 Years : 1955 Sex: Female PCP: Remigio Simpson MD Marital Status: Phone: Race: White Ethnicity: Not or Language: Tristanian [facility]: [id number] Visit Reason: Psychiatric screening exam; psych screen Acuity: 2 Enc Type: Emergency Med Service: Emergency Medicine Arrival: 05/20/2023 13:12:08 Discharge: 05/20/2023 17:38:00 LOS: 000 04:26 Checkin: 05/20/2023 13:12:08 Checkout: 05/20/2023 17:38:00 Dispo Type: Home or Self Care Address: [address] [place] [address] [address] [place] [id number] Provider Notes: Diagnosis: 1:Encounter for medical screening [...] range between ( 27.2 and 40.8 ) Pepin Auto: 5.2 % -- Normal range between [...] range between ( 36.0 and 46.0 ) Pepin Absolute: 0.3 x10 MCH: 30.1 pg -- [...] 05/20/2023 15:28:08 Follow up: With: Address: When: [facility] With: Address: When: Remigio Simpson [address] [place] [address] [phone] Business (1) Within 1 week Discharge Orders: Discharge Patient 05/20/23 17:30:00 EST, Discharge to Home, Self Patient Education Information: Anxiety Reaction [facility] Poison Help line: . [facility] [place]: [place] Tobacco Quit Line: [facility] ([place], [place]) [address]: [phone] [place], [place]) [address]: (more content not included)... Normal [facility] ED Note-Nursingon 05-20-2023 ED Note-Nursing Patients reports patient had covid 04/21/23 and most of her symptoms are stemming from that; increased memory loss, confusion, weight loss, panic attacks. Patient did take Paxlovid. Patient was seen at [facility] on Wednesday and taken off Xanax as they felt her hallucinations could be from that, and they prescribed hydroxizine. 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 Patient denies SI and HI but is frustrated that she is having these issues and is not her normal self. Electronically signed by Odalys Munroe 05/20/23 14:33 EST Normal [facility] ED Note-Physicianon 05-20-19 ED Note-Physician Chief Complaint pt was sent over by her therapist for a screening. Anxiety has been increasing as well as visual hallucinations ED Attending Attestation 67 presenting for anxiety. The patient was sent over by her therapist. I have assumed care of the patient from [Ofelia], who has discussed the clinical presentation, work-up, and ED course thus far. I have reviewed the patient?s medical record and ED course and agree with all aspects of care thus far. The patient was evaluated by the prescreener. Deemed appropriate for safety plan at this time. Patient was discharged in stable condition. Attending Note Vitals & Measurements T: 36.7 [...] High Lymph Auto 05/20/23 15:21 22.8 Low Pepin Auto 05/20/23 15:21 5.2 Eos Auto 05/20/23 15:21 0.4 Basophil Auto 05/20/23 15:21 0.5 Neutro Absolute 05/20/23 15:21 4.0 Lymph Absolute 05/20/23 15:21 1.3 Pepin Absolute 05/20/23 15:21 0.3 Eos Absolute 05/20/23 [...] hemorrhage or other acute finding. Signed By: Tremayne Butler MD Electronically signed by Sherri Hernandez MD 05/25/23 20:00 EST Normal [facility] ED Note-Physician Chief Complaint pt was [...] will obtain a CT head and have social media strategist speak with the patient she was sent in by her therapist that she describes it Sign out to Dr. Hernandez at the end of my shift for disposition and social media strategist recommendation Assessment/Plan Psychiatric screening exam (Complaint of) Orders: CT Brain w/o Contrast Refresh vitals and sections below: Problem List/Past Medical History Ongoing No qualifying data Historical No qualifying data Medications Inpatient No active inpatient medications Home No active home medications Allergies No active allergies Lab Results Routine Chemistry LATEST RESULTS Sodium Lvl 05/20/23 13:25 137 Potassium Lvl 01/04/24 13:25 4.0 Chloride 05/20/23 13:25 100 CO2 [...] 13:25 7.0 Diagnostic Results Electronically signed by Anuj Gilbert MD (more content not included)... Normal [facility] Ethanolon 05-20-2023 Ethanol, Plasma <10 Normal <=9 [facility] Comment on above: Result Comment: To c onvert mg/dL to g/dL, divide result by 1,000. Legal limit of intoxication is 80 mg/dL (0.08 g/dL). Performed By: #### A LC #### [address] [address] UDS Compon 05-20-2023 Creatinine [Mass/Vol] 100.2 mg/dL Normal Bl [facility] Comment on above: Performed By: #### C [id number] #### [address] [address] Ur Amph Scrn Negative Normal NEG = <1000 [facility] Comment on above: Performed By: #### C D:[id number] #### [address] [address] Ur Gabriela Scrn Negative Normal NEG = <200 [facility] Comment on above: Performed By: #### C D:[id number] #### [address] [address] Ur Benzodia Scrn Negative Normal NEG = <200 [facility] Comment on above: Performed By: #### C D:[id number] #### [address] [address] Ur Cannab Scrn Negative Normal NEG = <50 [facility] Comment on above: Performed By: #### C D:[id number] #### [address] [address] Ur Cocaine Scrn Negative Normal NEG = <300 [facility] Comment on above: Performed By: #### C D:[id number] #### [address] [address] Ur Methadone Scn Negative Normal NEG = <300 [facility] Comment on above: Performed By: #### C D:[id number] #### [address] [address] Ur Opiate Scrn Negative Normal NEG = <300 [facility] Comment on above: Performed By: #### C D:[id number] #### [address] [address] Ur Oxy Screen Negative Normal NEG = <100 [facility] Comment on above: Performed By: #### C D:[id number] #### [address] [address] Ur Oxy Scrn Qnt 9 ng/mL Normal <=99 [facility] Comment on above: Performed By: #### C D:[id number] #### [address] [address] Ur PCP Scrn Negative Normal NEG = <25 [facility] Comment on above: Performed By: #### C D:[id number] #### [address] [address] UA pH 7.0 Normal 4.5 - 7.8 [facility] Comment on above: Performed By: #### C D:[id number] #### [address] [address] UA Spec Grav 1.013 Normal 1.003-1.035 [facility] Comment on above: Performed By: #### C D:[id number] #### [address] [address] Outside Colonoscopyon 2022 Outside Colonoscopy [id number]# 1.00CD:127 Normal [facility] Reminderson 01-28-2023 Reminders - From: Sarah Griffiths LPN To: GSN - Clinical; Sent: 01/28/2023 13:00:59 EDT Show up: 12/27/2032 07:00:00 EDT Subject: colonoscopy recall Due Date/Time: 01/27/2033 07:00:00 EDT Reminder/Recall Patient due for screening colonoscopy 01/27/2033. Normal [facility] Consent for Procedure/Surger yon 01-12-2023 Consent for Procedure/Surgery [id number] #1.00CD:127 Normal [facility] Ambulatory Visit Summaryon 0 01-08-2023 Ambulatory Visit [...] longer receiving treatment for. Carpal tunnel Normal [facility] RAD - CT Reporton 01-07-2023 RAD - CT Report [id number] #1.00CD:127 Normal [facility] Physician Referralon 023 Physician Referral [id number] #1.00CD:127 Normal [facility] CBC AUTO DIFFon 09-10-2022 BASO # 0.0 103/ul Normal 0.0-0.1 [facility] Comment on above: Performed By: #### C BC #### [facility] [address] [place] [address] Dr. Jess Marie Basophils/100 WBC (Bld) 0.4 % Normal 0.2-2.0 [facility] Comment on above: Performed By: #### C BC #### [facility] [address] [place] [address] Dr. Jess Marie EO # 0.0 103/ul Normal 0.0-0.7 [facility] Comment on above: Performed By: #### C BC #### [facility] [address] [place] [address] Dr. Jess Marie Eosinophils/100 WBC (Bld) 0.4 % Critically low 0.9-7.0 [facility] Comment on above: Performed By: #### C BC #### [facility] [address] [place] [address] Dr. Jess Marie Erythrocyte distribution width (RBC) [Ratio] 12.5 % Normal 11.0-15.0 [facility] Comment on above: Performed By: #### C BC #### [facility] [address] [place] [address] Dr. Jess Marie Hematocrit (Bld) [Volume fraction] 43.1 % Normal 36.0-48.0 [facility] Comment on above: Performed By: #### C BC #### [facility] [address] [place] [address] Dr. Jess Marie Hemoglobin (Bld) [Mass/Vol] 14.0 g/dL Normal 12.0-16.0 [facility] Comment on above: Performed By: #### C BC #### [facility] [address] [place] [address] Dr. Jess Marie IG # 0.01 10e3/ul Normal 0.00-0.03 [facility] Comment on above: Performed By: #### C BC #### [facility] [address] [place] [address] Dr. Jess Marie IG % 0.2 % Normal 0.0-0.5 [facility] Comment on above: Performed By: #### C BC #### [facility] [address] [address] [address] Jess Marie LYMPH # 1.4 103/ul Normal 1.2-3.8 [facility] Comment on above: Performed By: #### C BC #### [facility] [address] [address] [address] Jess Marie Lymphocytes/100 WBC (Bld) 26.8 % Normal 20.5-60.0 [facility] Comment on above: Performed By: #### C BC #### [facility] [address] [place] [address] Dr. Jess Marie MANUAL DIFF REQ NO Normal [facility] Comment on above: Performed By: #### C BC #### [facility] [address] [place] [address] Dr. Jess Marie MCH (RBC) [Entitic mass] 29.7 pg Normal 26.7-34.0 [facility] Comment on above: Performed By: #### C BC #### [facility] [address] [place] [address] Dr. Jess Marie MCHC (RBC) [Mass/Vol] 32.5 g/dL Normal 29.9-35.2 [facility] Comment on above: Performed By: #### C BC #### [facility] [address] [place] [address] Dr. Jess Marie MCV (RBC) [Entitic vol] 91.3 fL Normal 81.0-99.0 [facility] Comment on above: Performed By: #### C BC #### [facility] [address] [place] [address] Dr. Jess Marie MONO # 0.3 103/ul Normal 0.3-0.8 [facility] Comment on above: Performed By: #### C BC #### [facility] [address] [place] [address] Dr. Jess Marie Monocytes/100 WBC (Bld) 5.2 % Normal 1.7-12.0 [facility] Comment on above: Performed By: #### C BC #### [facility] [address] [address] [address] Jess Marie NEUT # 3.5 103/ul Normal 1.4-6.5 [facility] Comment on above: Performed By: #### C BC #### [facility] [address] [address] [address] Jess Marie Neutrophils/100 WBC (Bld) 67.0 % Normal 43.0-75.0 [facility] Comment on above: Performed By: #### C BC #### [facility] [address] [address] [address] Jess Marie Platelet mean volume (Bld) [Entitic vol] 9.7 fL Normal 9.5-13.5 [facility] Comment on above: Performed By: #### C BC #### [facility] [address] [place] [address] Dr. Jess Marie PLT 230 103/ul Normal 150-450 [facility] Comment on above: Performed By: #### C BC #### [facility] [address] [place] [address] Dr. Jess Marie RBC 4.72 106/ul Normal 4.20-5.40 [facility] Comment on above: Performed By: #### C BC #### [facility] [address] [place] [address] Dr. Jess Marie WBC 5.2 103/ul Normal 4.0-11.0 [facility] Comment on above: Performed By: #### C BC #### [facility] [address] [place] [address] Dr. Jess Marie GLYCOHEMOGLOBIN A1Con 2022 ADA RECOMMENDATION SEE BELOW Normal [facility] Comment on above: Result Comment: ADA RECOMMENDED LIMIT 4.0 - 6.0 ADA THERAPEUTIC TARGET < 7.0 ACTION SUGGESTED > 7.0 Performed By: #### A 1C #### [facility] [address] [place] [address] Dr. Jess Marie Glucose [Mass/Vol] 123 mg/dL Normal [facility] Comment on above: Performed By: #### A 1C #### [facility] [address] [address] [address] Jess Marie HbA1c (Bld) [Mass fraction] 5.9 % Normal 4.5-6.2 [facility] Comment on above: Performed By: #### A 1C #### [facility] [address] [address] [address] Jess Marie LIPID PROFILEon 09-10-2022 CHOL-HDL RATIO NORM SEE BELOW Normal [facility] Comment on above: Result Comment: 3.3 - 4.4 LOW RISK 4.4 - 7.1 AVERAGE RISK 7.1 - 11.0 MODERATE RISK >11.0 HIGH RISK Performed By: #### T SH, LIVER, BMP, LIPID #### [facility] [address] [address] [address] Jess Marie Cholesterol [Mass/Vol] 267 mg/dL Critically high <=200 [facility] Comment on above: Performed By: #### T SH, LIVER, BMP, LIPID #### [facility] [address] [address] [address] Jess Marie Cholesterol in HDL [Mass/Vol] 79 mg/dL Critically high 40-60 [facility] Comment on above: Performed By: #### T SH, LIVER, BMP, LIPID #### [facility] [address] [address] [address] Jess Marie Cholesterol in LDL [Mass/Vol] 172.4 mg/dL Normal [facility] Comment on above: Performed By: #### T SH, LIVER, BMP, LIPID #### [facility] [address] [address] [address] Jess Marie Cholesterol.total/Choles terol in HDL [Mass ratio] 3.4 {ratio} Normal [facility] Comment on above: Performed By: #### T SH, LIVER, BMP, LIPID #### [facility] [address] [address] [address] Jess Marie HDL NORMAL > or = 60 mg/dl - LOW CARDIOVASCULAR RISK <40 mg/dl - HIGH CARDIOVASCULAR RISK Normal [facility] Comment on above: Performed By: #### T SH, LIVER, BMP, LIPID #### [facility] [address] [address] [address] Jess Marie LDL CALC NORMAL SEE BELOW Normal [facility] Comment on above: Result Comment: <100 mg/dl OPTIMAL 100 - 129 mg/dl NEAR OR ABOVE OPTIMAL 130 - 159 mg/dl BORDERLINE HIGH 160 - 189 mg/dl HIGH >190 mg/dl VERY HIGH Performed By: #### T SH, LIVER, BMP, LIPID #### [facility] [address] [address] [address] Jess Marie Triglyceride [Mass/Vol] 78 mg/dL Normal <=150 [facility] Comment on above: Performed By: #### T SH, LIVER, BMP, LIPID #### [facility] [address] [address] [address] Jess Marie VLDL CALC 15.6 mg/dL Normal [facility] Comment on above: Performed By: #### T SH, LIVER, BMP, LIPID #### [facility] [address] [address] [address] Jess Marie LIVER PROFILEon 09-10-2022 Albumin [Mass/Vol] 3.9 g/dL Normal 3.4-5.0 [facility] Comment on above: Performed By: #### T SH, LIVER, BMP, LIPID #### [facility] [address] [address] [address] Jess Marie Albumin/Globulin [Mass ratio] 0.9 {ratio} Normal [facility] Comment on above: Performed By: #### T SH, LIVER, BMP, LIPID #### [facility] [address] [address] [address] Jess Marie ALP [Catalytic activity/Vol] 61 U/L Normal 46-116 [facility] Comment on above: Performed By: #### T SH, LIVER, BMP, LIPID #### [facility] [address] [address] [address] Jess Marie ALT [Catalytic activity/Vol] 25 U/L Normal 14-59 [facility] Comment on above: Performed By: #### T SH, LIVER, BMP, LIPID #### [facility] [address] [place] [address] Dr. Jess Marie AST [Catalytic activity/Vol] 27 U/L Normal 15-37 [facility] Comment on above: Performed By: #### T SH, LIVER, BMP, LIPID #### [facility] [address] [place] [address] Dr. Jess Marie BILI, CONJUGATED 0.1 mg/dL Normal 0.0-0.2 [facility] Comment on above: Performed By: #### T SH, LIVER, BMP, LIPID #### [facility] [address] [place] [address] Dr. Jess Marie Bilirubin [Mass/Vol] 0.7 mg/dL Normal 0.2-1.0 [facility] Comment on above: Performed By: #### T SH, LIVER, BMP, LIPID #### [facility] [address] [place] [address] Dr. Jess Marie Globulin (S) [Mass/Vol] 4.2 g/dL Normal [facility] Comment on above: Performed By: #### T SH, LIVER, BMP, LIPID #### [facility] [address] [place] [address] Dr. Jess Marie Protein [Mass/Vol] 8.1 g/dL Normal 6.4-8.2 [facility] Comment on above: Performed By: #### T SH, LIVER, BMP, LIPID #### [facility] [address] [place] [address] Dr. Jess Marie PROF CHEM 8 (BAS METB)on Anion gap [Moles/Vol] 13.1 mmol/L Normal [facility] Comment on above: Performed By: #### T SH, LIVER, BMP, LIPID #### [facility] [address] [place] [address] Dr. Jess Marie Calcium [Mass/Vol] 9.6 mg/dL Normal 8.5-10.1 [facility] Comment on above: Performed By: #### T SH, LIVER, BMP, LIPID #### [facility] [address] [address] [address] Jess Marie Chloride [Moles/Vol] 105 mmol/L Normal 98-107 [facility] Comment on above: Performed By: #### T SH, LIVER, BMP, LIPID #### [facility] [address] [address] [address] Jess Marie CO2 [Moles/Vol] 28.9 mmol/L Normal 21.0-32.0 [facility] Comment on above: Performed By: #### T SH, LIVER, BMP, LIPID #### [facility] [address] [address] [address] Jess Marie Creatinine [Mass/Vol] 0.62 mg/dL Normal 0.55-1.02 [facility] Comment on above: Performed By: #### T SH, LIVER, BMP, LIPID #### [facility] [address] [place] [address] Dr. Jess Marie EGFR-AF BRUNEIAN >60 Normal >=60 [facility] Comment on above: Performed By: #### T SH, LIVER, BMP, LIPID #### [facility] [address] [address] [address] Jess Marie EGFR-NON AF BRUNEIAN >60 Normal >=60 [facility] Comment on above: Performed By: #### T SH, LIVER, BMP, LIPID #### [facility] [address] [address] [address] Jess Marie Glucose [Mass/Vol] 112 mg/dL Critically high 74-106 [facility] Comment on above: Performed By: #### T SH, LIVER, BMP, LIPID #### [facility] [address] [address] [address] Jess Marie Potassium [Moles/Vol] 5.0 mmol/L Normal 3.5-5.1 [facility] Comment on above: Result Comment: spec imen slightly hemolyzed Performed By: #### T SH, LIVER, BMP, LIPID #### [facility] [address] [address] [address] Jess Marie Sodium [Moles/Vol] 142 mmol/L Normal 136-145 [facility] Comment on above: Performed By: #### T SH, LIVER, BMP, LIPID #### [facility] [address] [address] [address] Jess Marie Urea nitrogen [Mass/Vol] 15.0 mg/dL Normal 7.0-18.0 [facility] Comment on above: Performed By: #### T SH, LIVER, BMP, LIPID #### [facility] [address] [address] [address] Jess Marie Urea nitrogen/Creatinine [Mass ratio] 24.2 mg/mg Normal [facility] Comment on above: Performed By: #### T SH, LIVER, BMP, LIPID #### [facility] [address] [place] [address] Dr. Jess Marie TSHon 09-10-2022 TSH 1.518 uIU/mL Normal 0.358-3.740 [facility] Comment on above: Performed By: #### T SH, LIVER, BMP, LIPID #### [facility] [address] [place] [address] Dr. Jess Marie US CAROTID ART BILon [...] HERSON REBOLLEDO Date: 2022-09-10 12:26 Normal [facility] XR ABD FLAT_UPon 06-10-2022 XR ABD FLAT_UP [...] HERSON REBOLLEDO Date: 2022-06-10 08:38 Normal [facility] Covid-19 PCR ([facility])on 10-16 SARS-CoV-2 (COVID-19) RNA YAYA+probe Ql (Unsp spec) Not detected Normal NOT DETECTED [facility] Comment on above: Result Comment: This test is not yet approved or cleared by the [place] FDA. When there are no FDA-approved or cleared tests available, and other criteria are met, FDA can make tests available under an emergency access mechanism called an Emergency Use Authorization (EUA). The EUA for this test is supported by the Reading of Health and Human Service's (HHS's) declaration [...] consistent with SARS-CoV-2. Performed By: #### [facility] #### [facility] [address] [place] [address] Dr. Jess Marie Vital Signs Date Time Vital Sign Value Performing Clinician Faci conchita 06-08-2023 07:30-0500 Body temperature 97.6 [degF] [facility] 06-08-2023 07:30-0500 Diastolic blood pressure 62 mm[Hg] [facility] 06-08-2023 07:30-0500 Heart rate 75 /min [facility] 06-08-2023 07:30-0500 Respiratory rate 16 /min [facility] 06-08-2023 07:30-0500 SaO2% (BldA) [Mass fraction] 97 % [facility] 06-08-2023 07:30-0500 Systolic blood pressure 110 mm[Hg] [facility] 06-07-2023 09:00-0500 Body weight 67.5 kg [facility] 06-04-2023 10:17-0500 Body height 166.37 cm [facility] 05-25-2023 14:29-0500 Diastolic blood pressure 80 mm[Hg] DO Robert Zuly Work Phone: [facility] 05-25-2023 14:29-0500 Heart rate 91 /min DO Robert Zuly Work Phone: [facility] 05-25-2023 14:29-0500 Respiratory rate 18 /min DO Robert Zuly Work Phone: [facility] 05-25-2023 14:29-0500 SaO2% (BldA) [Mass fraction] 98 % DO Robert Zuly Work Phone: [facility] 05-25-2023 14:29-0500 Systolic blood pressure 110 mm[Hg] DO Robert Zuly Work Phone: [facility] 05-25-2023 13:06-0500 Body temperature 98.3 [degF] DO Robert Zuly Work Phone: [facility] 05-25-2023 11:38-0500 Body height 165.1 cm DO Robert Zuly Work Phone: [facility] 05-25-2023 11:38-0500 Body weight 68.1 kg DO Robert Zuly Work Phone: [facility] 01-08-2023 13:49-0400 Diastolic blood pressure 94 mm[Hg] Amor HOLLY [facility] [place] 01-08-2023 13:49-0400 Heart rate 80 /min Amor HOLLY [facility] [place] 01-08-2023 13:49-0400 Respiratory rate 16 /min Amor HOLLY [facility] [place] 01-08-2023 13:49-0400 Systolic blood pressure 136 mm[Hg] Amor HOLLY [facility] [place] Encounters Encounter Date Encounter Type Care Provider Facility Start: 06-09-2023 End: 06-09-2023 ambulatory REMIGIO SIMPSON Not Available Start: 05-25-2023 End: 06-08-2023 Evaluation and management of inpatient Sridhar Hoffman Facility:[facility] Start: 05-25-2023 Evaluation and management of inpatient DO Robert Caruso Work Phone: [facility] Work Phone: Start: 05-25-2023 Non-patient / Non-visit [facility] Work Phone: Start: 05-20-2023 End: 05-20-2023 Emergency department patient visit Remigio Simpson MD Facility:[facility] Start: 01-27-2023 End: 01-28-2023 ambulatory Amor HOLLY Facility:CD:[id number] Start: 01-08-2023 End: 01-09-2023 [facility]ulatory [facility] Start: 01-08-2023 End: 01-08-2023 Patient encounter procedure Amor HOLLY [facility] [place] Start: 12-30-2022 ambulatory [facility]LLY [facility] Start: 09-10-2022 End: 09-11-[address] REMIGIO [...] of uterus Amor HOLLY Comment on above: 2005 tonsillectomy 2 Amor HOLLY Comment on above: 1958 Vaginal hysterectomy Amor HOLLY Plan of Treatment Date Care Activity Detail Author Start: 06-08-2023 [facility] Start: 05-26-2023 Administration of prophylactic treatment [facility] Start: 05-25-2023 Hospital admission [facility] Start: 05-25-2023 [facility] Patient Education Dementia (DC) [facility] [place] Instructions [facility] Work Phone: Patient referral [facility] Work Phone: Immunizations Immunization Date Immunization Notes Care Provider Fa cili 03-17-2022 SARS-CoV-2 (COVID-19 ) [id number] Amor HOLLY [facility] [place] 10-05-2021 SARS-CoV-2 mRNA (gzwkkarsjeg-bmgb-kjnfr se) vaccine Amor HOLLY [facility] [place] 03-06-2021 SARS-CoV-2 (COVID-19 ) mRNA BNT-162b2 vax Amor HOLLY [facility] [place] 07-30-2020 SARS-CoV-2 (COVID-19 ) mRNA BNT-162b2 vax Amor HOLLY [facility] Comment on above: Result Comment: 2022: [id number] 07-09-2020 SARS-CoV-2 (COVID-19 ) mRNA BNT-162b2 vax Amor MONTOYAL [facility] Comment on above: Result Comment: 2022: [id number] Payers Date Payer Category Payer Self-pay 2023 Medicare 2014 Unknown 1959 Medicare [id number] 1961 Unknown [id number] 1955 Unknown [id number] 2.16.84 [id number] 1955 Unknown [id number] 2.16.84 [id number] 1953 Unknown [id number] 2.16.84 [id number] 1953 Unknown [id number] 2.16.84 [id number] 1953 Unknown [id number] 2.16.8 [id number] 1953 Unknown [id number] 2.16.8 [id number] 1953 Unknown [id number] 2.16.8 [id number] 1953 Unknown [id number] 2.16. [id number] 1955 Unknown [id number] 2.16.84 [id number] Unknown [id number] 2.16.8 [id number] Social History Date Type Detail Facility Start: 01-08-2023 End: 05-26-2023 Tobacco smoking status Never smoked tobacco (finding) [facility] [place] Tobacco smoking status Never [facility] [place] Sex Assigned At Female [facility] Start: 1955 Sex Assigned At Female [facility] Functional Status Date Assessment Result Facility 01-08-2023 Functional Status N/A [facility] Discharge instructions 06-08-2023 Note Date & Type Note Facility 06-08-2023 Hospital Discharg e instructions Additional Instructions Important Contact Information You can call [facility] at [phone] any time day or night if you have emergent questions or question regarding discharge instructions. If at any time you are feeling an increase in your psychiatric symptoms, call your physician or behavioral healthcare provider. If any time you have thoughts of harming yourself or others contact one of the following: Call (available 07/12) Crisis Text Line (available 07/12) text 4HOPE to [phone] [facility] Hope Line (available 8 a.m. Midnight) call [phone] ([phone]) [facility] Work Phone: Clinical Note 01-08-2023 Note Date & Type [...] Use:. Household tobacco (more content not included)... [facility] Comment on above: Result Comment: Elec tronically Signed By: AVNI ROGERS, Amor Brown.maame\Date and Time Signed: 01/08/23 15:31 EDT Clinical [...] authenticated by: HERSON REBOLLEDO Date: 2022-03-12 18:14 [facility] Evaluation + Plan note Note Date & Type Note Facility Evaluation + Plan note No data available for this section [facility] [place] Evaluation note Note Date & Type Note Facility Evaluation note No assessment information availa [facility] Work Phone: Evaluation note Note Date & Type Note Facility Evaluation note Diagnosis Onset Date Anxiety acute Confusion acute Depression acute Major neurocognitive disorder acute Suicidal ideation acute [facility] Work Phone: History and physical note Note Date & Type Note Facility History and physical note Note Date/Time May 26, 2023 12:28pm [facility] [address] [place] [address] Psychiatry H&P Signed Patient: Yoana Bullock MR#: [id number] : 1955 Acct:[id number] Age/Sex: 67 / F Adm Date: 4 Loc: Room: [address] [place] [address] Type: ADM IN Attending Dr: Sridhar Hoffman MD Copies to: MD Remigio Jorge MD~ Date of Service: 05/26/2023 HPI History of Present Illness History of present illness: Ms. Bullock is a 67 year old female who presented due to concern for paranoid thoughts. It was documented that the symptoms started after she developed COVIDin April. It was also documented that she had suicidal thoughts over the past month and stated that she would rather be . Upon assessment, patient reported that she had some issues with her medications. She felt like she needed some help with her medications. She reported that shefeels restless and does feel a lot of anxiety. She reported that she tried Xanax and hydroxyzine to help manage her anxiety. She reported that she has been more agitated and felt that she was so anxious she had to come to the hospital. She reported that she got really sick from COVID in April. When asked about suicidal thoughts she denied currently. She reported that she did make a statement about not wanting to live but reported that she wants to live and with her children she wants to be around for them. Past psych history: Depression Past hospitalizations: Denies Past suicide attempts: Denies Family psych history: Denies Previous medications: Xanax and hydroxyzine Alcohol and drug use: Denied any significant issues Living: With family Employment: Unemployed Review of symptoms: Constitutional: Denies chills and Denies fever(s) Eyes: Denies change in vision ENT: Denies abnormal hearing Cardiovascular: Denies chest pain Respiratory: Denies chest congestion and Denies cough Gastrointestinal: Denies change in bowel habits Genitourinary: Denies dysuria Musculoskeletal: Denies atrophy and Denies myalgias Integumentary/Breasts: Denies dry skin Neurologic: Denies abnormal gait and Denies abnormal movements Psychiatric: Reports anxiety Physical exam: Const: cooperative Nutritional Appearance: average body habitus Orientation: alert, awake and oriented x3 HEENT: Head normal to inspection, hearing grossly normal bilaterally, external nose normal, face symmetric Eyes: appearance normal, both eyes and all related structures, sclerae normal Neck: normal visual inspection and full ROM Resp: normal respiratory effort, able to speak in complete sentences and symmetric chest movement Cardio: regular rate GI: normal to inspection and non-distended : deferred Skin: no rashes or lesions noted Neuro: CNI: Normal olfaction CNI: normal olfaction CNII: Visual wagner intact, CNIII,IV,: EOM intact, no nystagmus. Pupils equal, round, reactive to light and accommodation, CNV: Sensation intact to light touch, CNVII: Raises eyebrows, smile/frown, puff out cheeks symmetrically, CNVIII: Hearing intact bilaterally, CNIX,X: Voice normal, soft palate elevation normal, symmetrical, CNXI: Shoulder shrug strong, equal bilaterally, CNXII: Tongue protrusion midline, movement symmetrical. Extrem: normal to inspection and full ROM Mental Status Exam: Appearance: grossly normal Mental Status: mental status grossly normal Mood: Anxious mood Affect: dysphoric affect Speech and Movement: speech and movement normal and speech clear Attitude: cooperative Thought Process: normal Thought Content: Denied hallucinations, no homicidality, denied current suicidality Insight: fair Judgment: fair [facility] Medical History (Updated 05/26/23 @ 12:28 by Sridhar Hoffman MD) Panic disorder Surgical History H/O: hysterectomy Family History (Updated 05/25/23 @ 12:52 by Veronica Jones RN) Other No significant family history Social History Smoking Status: Never smoker Substance Use Type: None Meds Medications and Allergies Allergies No Known Allergies Allergy (Verified 05/25/23 11:42) Home Medications meloxicam 7.5 mg tablet 7.5 mg PO DAILY PRN Pain 05/25/23 [History Confirmed 05/25/23] Exam Physical Exam Vital Signs: Temp Pulse Resp BP Pulse Ox O2 Del Method 98 F 76 18 132/68 98 Room Air 05/26/23 07:30 05/26/23 07:30 05/25/23 23:30 05/26/23 07:30 05/26/23 07:30 05/26/23 07:30 Results Labs 05/25/23 12:10 05/25/23 12:10 Psychiatry Labs: 05/25/23 05/25/23 12:10 12:10 RBC 4.74 Hgb 14.1 Hct 41.6 MCV 87.8 MCH 29.9 MCHC 34.0 RDW 12.9 Plt Count 292 MPV 7.9 Sodium 138 Potassium 3.7 Chloride 102 Carbon Dioxide 29.6 Anion Gap 10.1 BUN 12 Creatinine 0.76 Calcium 10.1 Total Bilirubin 0.8 AST 21 ALT 14 Alkaline Phosphatase 48 Total Protein 7.3 Albumin 4.4 Assessment/Plan (1) Depression: (2) Anxiety: Plan Patient presenting due to concern for anxiety issues. There was report for suicidal thoughts statements over the past 1 month at home We will try to gather collateral from family Will start Lexapro 5 mg daily for depression and anxiety Will monitor for paranoid thoughts and consider Risperdal if symptoms are present Continue to monitor mental status Encourage group participation and medication compliance Risk benefits alternatives explained Documented By: Sridhar Hoffman MD 05/26/23 1225 Signed By: <Electronically signed by Sridhar Hoffman MD> 05/26/23 1228 [facility] Work Phone: Hospital Discharge instructions Note Date & Type Note Facility Hospital Discharge instructions No data available for this section [facility] [place] Progress note Note Date & Type Note Facility Progress note No data available for this section [facility] [place] Summary Purpose Family History No Family History Records Found Relationship Condition Age at Onset Recorded Date/T dari Not Specified No pertinent family history Unknown Advance Directives No Advanced Directives Records Found Advance Directive Response Recorded Date/ Time Advance Directives No May 25, 2023 12:38pm Chief Complaint and Reason for Visit Chief Complaint mental eval Chief Complaint mental eval Reason for Visit Anxiety Confusion Depression Major neurocognitive disorder Suicidal ideation Additional Source Comments INFORMATION SOURCE (unrecogn ized section and content) DATE CREATED AUTHOR 09/17/2022 [facility] DATE CREATED AUTHOR AUTHOR'S ORGANIZ ATION 02/17/2023 [facility] DATE CREATED AUTHOR AUTHOR'S ORGANIZ ATION 05/26/2023 [facility] DATE CREATED AUTHOR AUTHOR'S ORGANIZ ATION 06/09/2023 [facility] DATE CREATED AUTHOR AUTHOR'S ORGANIZ ATION 06/11/2023 [facility] EPIC Patient Care team informatio n (unrecognized section and content) Team Status: Active Member Role Status Dates Remigio Simpson MD Primary Care Provider Active Team Status: Active Member Role Status Dates Robert Caruso DO Emergency Provider Active Remigio Simpson MD Primary Care Provider Active Sridhar Hoffman MD Admit Provider, Attending Provider Active Team Status: Active Member Role Status Dates Robert Caruso DO Emergency Provider Active Sta rt: May 25, 2023 Remigio Simpson MD Primary Care Provider Active S tart: May 25, 2023 Sridhar Hoffman MD Admit Provider, Othe r Provider Active Start: May 25, 2023 Lionel Still MD Attending Provider Active Start: May 25, 2023 Goals (unrecognized section and content) Goals may be documented in a n alternate section FOR RECORDS PERTAINING TO PATIENTS WHO ARE [...] BE BASED ON THE PRIMARY CLINICAL RECORDS. [employer] provides no warranty or guarantee of the accuracy or completeness of information in this document.
[2023-06-14 14:40] LABS: Bilirubin Urine NEGATIVE (NEGATIVE); Blood Urine NEGATIVE (NEGATIVE); Clarity Urine CLEAR (CLEAR); Color Urine LT. YELLOW (YELLOW); Glucose Urine UA NEGATIVE (NEGATIVE); Ketones Urine TRACE mg/dL (NEGATIVE); Leukocyte Esterase Urine SMALL (NEGATIVE); Nitrite Urine NEGATIVE (NEGATIVE); Protein Urine NEGATIVE (NEG/TRACE); Specific Gravity Urine 1.015 (1.005-1.025); pH Urine 6.5 (5.0-9.0)
[2023-06-14 14:53] LABS: Bacteria Urine TRACE #/HPF (NONE SEEN); Cast Seen? NONE SEEN #/LPF (NONE SEEN); Crystals Seen? None Seen #/HPF (None Seen); Mucus Urine TRACE (NONE SEEN); RBC Urine NONE SEEN #/HPF (0-2); Squamous Epithelial Cell Urine FEW #/LPF (NONE/RARE)
== END 2023-06-14 14:25 | disposition home or self-care (01) ==
LOC: LAB 14:24
PROVIDERS: PCP Family Medicine; Visit Provider Family Medicine
DX: R30.0 Dysuria (principal)
CPT/HCPCS: 81001; 87086

== ENCOUNTER 2023-06-30 13:23 | Outpatient (OUT) | payer MEDICARE, OTHER, SELFPAY ==
--- OUTSIDE RECORDS SUMMARY | 2023-06-30 13:29 | XMS_ITS | CCD ---
Author Name Unknown Address [address] [facility] [address] [place] [address] Organization [facility] Care Team Providers Care Hand Molder And Caster Name Role Phone NADEMILY, DR REMIGIO Richardson [...] HOLLY Attending Unavailable NADERER, REMIGIO Referring Unavailable NILL, Amor Pollock Attending Unavailable NADERER, REMIGIO Referring Unavailable NILL, Amor Pollock Attending Unavailable Naderer Remigio ROGERS Primary Care Unavail vinay Gilbert MD, Aunj Orta Attending Unav DO Robert Joseph Emergency Provider MD Remigio Simpson Primary Care Provider [phone] MD Sridhar Hoffman Admit Provider MD Sridhar Hoffman Attending Provider Sridhar Hoffman Attending Unavailable Sridhar Hoffman Admitting Unavailable Nadereleanna, Remigio Primary Care Unavailable NADEMILY, REMIGIO Attending Unavailable Naderer MD, Remigio Primary Care Provider Medications Current Medications Medication Drug Class(es) Dates Sig (Normalized) Sig (Original) hydrOXYzine hydrochloride 25 mg oral tablet (1 source) Antihistamine Start: 05-25-2023 take 1 tablet by mouth four times daily as needed for anxiety hydrOXYzine HCl (Atarax) 25 MG tablet Indications: DALILA (generalized anxiety disorder) (CMS/HCC) TAKE 1 TABLET (25 MG) BY MOUTH 4 (FOUR) TIMES A DAY NEEDED FOR ANXIETY 360 tablet 2 05/25/2023 Active meloxicam 7.5 mg oral tablet (4 sources) Nonsteroidal Anti-inflammatory Drug Start: 06-29-2023 take 1 tablet by mouth once daily as needed for pain meloxicam (Mobic) 7.5 MG tablet Indications: Neck pain Take 1 tablet (7.5 mg) by mouth Daily as needed for mild pain or moderate pain 90 tablet 3 06/29/2023 Active Start: 06-22-2023 End: 06-29-2023 take 1 tablet by mouth once daily as needed for pain meloxicam (Mobic) 7.5 MG tablet Indications: Neck pain Take 1 tablet (7.5 mg) by mouth Daily as needed for mild pain or moderate pain 30 tablet 3 06/22/2023 06/29/2023 Discontinued (Reorder) Start: 05-25-2023 take 7.5 mg by mouth once nimo y Meloxicam Active 7.5 MG PO Daily May 25, 2023 12:00am mirtazapine 7.5 mg oral tablet (3 sources) Start: 06-29-2023 take 1 tablet by mouth at bedtime mirtazapine (Remeron) 7.5 MG tablet Indications: MDD (major depressive disorder), recurrent episode, mild (HCC) (CMS/HCC) Take 1 tablet (7.5 mg) by mouth at bedtime 90 tablet 3 06/29/2023 Active Start: 06-22-2023 End: 06-29-2023 take 1 tablet by mouth at bedtime mirtazapine (Remeron) 7.5 MG tablet Indications: MDD (major depressive disorder), recurrent episode, mild (HCC) (CMS/HCC) Take 1 tablet (7.5 mg) by mouth at bedtime 30 tablet 3 06/22/2023 06/29/2023 Discontinued (Reorder) Start: 06-08-2023 take 7.5 mg by mouth once daily at bedtime Mirtazapine Active 7.5 MG PO Daily at bedtime June 08, 2023 12:00am ondansetron 4 mg disintegrating oral tablet (1 source) Serotonin-3 Receptor Antagonist Start: 06-22-2023 take 1 tablet by mouth every six hours as needed for nausea and vomiting and nausea and nausea ondansetron ODT (Zofran-ODT) 4 MG disintegrating tablet Indications: Nausea Take 1 tablet (4 mg) by mouth every 6 (six) hours if needed for nausea or vomiting 30 tablet 3 06/22/2023 Active risperiDONE 1 mg oral tablet (6 sources) Atypical Antipsychotic Start: 06-29-2023 take 1 tablet by mouth in the morning risperiDONE (RisperDAL) 0.25 MG tablet Indications: MDD (major depressive disorder), recurrent episode, mild (HCC) (CMS/HCC) Take 1 tablet (0.25 mg) by mouth in the morning. 90 tablet 3 06/29/2023 Active Start: 06-29-2023 take 1 tablet by palmer th in the morning risperiDONE (RisperDAL) 1 MG tablet Indications: MDD (major depressive disorder), recurrent episode, mild (HCC) (CMS/HCC) Take 1 tablet (1 mg) by mouth in the morning and 1 tablet (1 mg) before bedtime. 90 tablet 3 06/29/2023 Active Start: 06-22-2023 End: 06-29-2023 take 1 tablet by mouth in the morning risperiDONE (RisperDAL) 0.25 MG tablet Indications: MDD (major depressive disorder), recurrent episode, mild (HCC) (CMS/HCC) Take 1 tablet (0.25 mg) by mouth in the morning. 30 tablet 3 06/22/2023 06/29/2023 Discontinued (Reorder) Start: 06-22-2023 End: 06-29-2023 take 1 tablet by mouth in the morning risperiDONE (RisperDAL) 1 MG tablet Indications: MDD (major depressive disorder), recurrent episode, mild (HCC) (CMS/HCC) Take 1 tablet (1 mg) by mouth in the morning and 1 tablet (1 mg) before bedtime. 60 tablet 3 06/22/2023 06/29/2023 Discontinued (Reorder) Start: 06-08-2023 take 0.25 mg by mout h at bedtime Risperidone Active 0.25 MG PO Bedtime 30 June 08, 2023 12:00am Start: 06-08-2023 take 1 mg by mouth twice daily Risperidone Active 1 MG PO Twice daily 60 June 08, 2023 12:00am wheat dextrin 3000 mg powder for oral solution (1 source) Start: 01-08-2023 Benefiber 100% oral powder as needed for constipation, Refill(s) 0 Start Date: 01/08/23 Status: Ordered Problems Active Problems Problem Classification Problem Date Documented Da te Episodic/Chronic Abdominal pain (1 source) Generalized abdominal pain 01-04-2023 Episodic Anxiety disorders (6 sources) Generalized anxiety disorder; Translations: [Anxiety] Onset: 3 01-04-2023 Chronic Cardiac dysrhythmias (2 sources) Paroxysmal supraventricular tachycardia; Translations: [Paroxysmal supraventricular tachycardia] Onset: 2 01-04-2023 Chronic Delirium, dementia, and amnestic and other cognitive disorders (3 sources) Dementia; Translations: [Unspecified dementia without behavioral disturbance] Onset: 4 06-01-2023 Chronic Diabetes mellitus without complication (5 sources) Impaired fasting glucose; Translations: [Impaired fasting glycemia] Onset: 3 Episodic Disorders of lipid metabolism (3 sources) Hyperlipidemia, unspecified; Translations: [Dyslipidemia] Onset: 3 01-04-2023 Chronic Esophageal disorders (1 source) Gastroesophageal reflux disease 01-04-2023 Chronic Comment on above: diet controlled Malaise and fatigue (2 sources) Other fatigue; Translations: [Asthenia] Onset: 3 06-09-2023 Episodic Mood disorders (4 sources) Depressive disorder; Translations: [Depression] Onset: 4 05-25-2023 Chronic Mood disorders (1 source) Mood disorders; Translations: [Depression, unspecified] Onset: 4 Other aftercare (1 source) Other termite control representative (current) drug therapy; Translations: [OTH DETENTION CURRENT DRUG THERAPY] Onset: 3 Episodic Other aftercare (1 source) Patient encounter status; Translations: [Other termite control representative (current) drug therapy] Onset: 3 05-11-2023 Episodic Other bone disease and musculoskeletal deformities (1 source) Osteopenia 01-04-2023 Episodic Other circulatory disease (2 sources) Orthostatic hypotension; Translations: [Orthostatic hypotension] Onset: 4 01-04-2023 Episodic Other connective tissue disease (1 source) Bursitis of olecranon of right elbow; Translations: [Olecranon bursitis, right elbow] Onset: 4 05-28-2023 Episodic Other gastrointestinal disorders (5 sources) Other constipation; Translations: [OTHER CONSTIPATION] Onset: 3 Episodic Other gastrointestinal disorders (2 sources) Altered bowel function; Translations: [Change in bowel habit] Onset: 3 Episodic Other gastrointestinal disorders (2 sources) Chronic constipation; Translations: [Other constipation] Onset: 4 01-04-2023 Episodic Other hereditary and degenerative nervous system conditions (1 source) Mild cognitive disorder ; Translations: [Mild cognitive impairment, so stated] Onset: 4 06-09-2023 Chronic Other nervous system disorders (2 sources) Carpal tunnel syndrome; Translations: [Carpal tunnel syndrome, unspecified upper limb] Onset: 4 06-15-2014 Chronic Other nutritional; endocrine; and metabolic [...] Spondylosis; intervertebral disc disorders; other back problems (2 sources) Cervical disc disorder; Translations: [Degeneration of cervical intervertebral disc] Onset: 4 01-04-2023 Chronic Spondylosis; intervertebral disc disorders; other back problems (2 sources) Neck pain; Translations: [Cervicalgia] Onset: 3 06-29-2023 Episodic Suicide and intentional self-inflicted injury (2 sources) Suicidal thoughts; Translations: [Suicidal ideations] 05-25-2023 Episodic Unclassified (3 sources) CONTACT W/AND (SUSP) EXPOS COVID-19; Translations: [CONTACT W/AND (SUSP) EXPOS COVID-19] Onset: 2 Urinary tract infections (2 sources) Recurrent urinary tract infection; Translations: [Urinary tract infection, site not specified] Onset: 4 06-29-2023 Episodic Past or Other Problems Problem Classification Problem Date Documented Da te Episodic/Chronic Conditions associated with dizziness or vertigo (3 sources) Dizziness and giddiness; Translations: [Benign paroxysmal positional vertigo] Onset: 09-16-2022 12-31-2022 Episodic Other non-traumatic joint disorders (4 sources) Pain [...] cristal 06-04-2023 Glucose [Mass/Vol] 128 mg/dL Normal [facility] Comment on above: Result Comment: PERF ORMED BY: [place] [address] PATHOLOGIST CIVIL ENGINEERING PROFESSIONAL [employer]ING M.D. Performed By: #### A 1C Brigitte Laboy, CMP #### [address] HbA1c (Bld) [Mass fraction] 6.1 % High 4.3-5.6 [facility] Comment on above: Result Comment: Incr eased risk for diabetes: 5.7 - 6.4 diabetes: >6.4 glycemic control for adults with diabetes: <7.0 Performed By: #### A Treva YEE eA CMP #### [facility] [address] Comprehensive Metabolic Pane chito 06-04-2023 Albumin [Mass/Vol] 3.3 g/dL Low 3.5-5.7 [facility] Comment on above: Performed By: #### A Treva YEE eA CMP #### [address] Albumin/Globulin [Mass ratio] 1.4 {ratio} Normal [facility] Comment on above: Performed By: #### A Treva YEE eA CMP #### [address] ALP [Catalytic activity/Vol] 39 U/L Normal 34-104 [facility] Comment on above: Performed By: #### A Treva YEE eA CMP #### [address] ALT [Catalytic activity/Vol] 12 U/L Normal 7-52 [facility] Comment on above: Performed By: #### A Treva YEE eA CMP #### [address] Anion gap [Moles/Vol] 6.4 mmol/L Normal 6.0-15.0 [facility] Comment on above: Performed By: #### A Treva YEE eA CMP #### [address] AST [Catalytic activity/Vol] 20 U/L Normal 13-39 [facility] Comment on above: Performed By: #### A Treva YEE eA CMP #### [address] Bilirubin [Mass/Vol] 0.4 mg/dL Normal 0.3-1.0 [facility] Comment on above: Performed By: #### A Treva YEE eA CMP #### [address] [place] [address] [place] Calcium [Mass/Vol] 9.3 mg/dL Normal 8.6-10.3 [facility] Comment on above: Performed By: #### A Treva YEE eA CMP #### [facility] [address] Chloride [Moles/Vol] 108 mmol/L High 98-107 [facility] Comment on above: Performed By: #### A Treva YEE eA CMP #### [facility] [address] CO2 [Moles/Vol] 30.7 mmol/L Normal 21.0-31.0 [facility] Comment on above: Performed By: #### A Treva YEE eA CMP #### [address] Creatinine [Mass/Vol] 0.71 mg/dL Normal 0.60-1.20 [facility] Comment on above: Performed By: #### A Treva YEE eA CMP #### [address] Creatinine Clr Calc Pharmacy 59.72 Normal [facility] Comment on above: Result Comment: PERF ORMED BY: [place] [address] PATHOLOGIST CIVIL ENGINEERING PROFESSIONAL [employer] M.D. Performed By: #### A Treva YEE eA CMP #### [address] GFR/1.73 sq M.predicted MDRD (S/P/Bld) [Vol rate/Area] mL/min/{1.73_m2} Normal [facility] Comment on above: Performed By: #### A Treva YEE eA CMP #### [facility] [address] Globulin (S) [Mass/Vol] 2.3 g/dL Normal [facility] Comment on above: Performed By: #### A Treva YEE eA CMP #### [address] Glucose [Mass/Vol] 101 mg/dL High 70-100 [facility] Comment on above: Result Comment: [facility] Glucose Reference Range is dependent on time and content of last meal. Glucose of more than 200 mg/dL in a nonstressed, ambulatory subject supports the diagnosis of Diabetes Mellitus. ADA recommended reference range Performed By: #### A 1C NAKIA Laboy, CMP #### [facility] [address] Potassium [Moles/Vol] 4.1 mmol/L Normal 3.5-5.1 [facility] Comment on above: Performed By: #### A 1C NAKIA Laboy, CMP #### [facility] [address] Protein [Mass/Vol] 5.6 g/dL Low 6.4-8.9 [facility] Comment on above: Performed By: #### A 1C WT Narda, CMP #### [address] Sodium [Moles/Vol] 141 mmol/L Normal 136-145 [facility] Comment on above: Performed By: #### A 1C NAKIA Laboy, CMP #### [address] Urea nitrogen [Mass/Vol] 22 mg/dL Normal 7-25 [facility] Comment on above: Performed By: #### A 1C WT Narda, CMP #### [address] Urine Cultureon 06-04-2023 Bacteria identified Cx Nom (U) <9,000 colonies/ml mixed bacterial skin contaminants 2 Days PERFORMED BY: [place] [address] PATHOLOGIST CIVIL ENGINEERING PROFESSIONAL ELE [employer]ING M.D. [facility] Comment on above: Performed By: #### A 1C WTBrigitte Laboy, CMP #### [facility] [address] A1C with Estimated Average G luon 06-01-2023 Glucose [Mass/Vol] 126 mg/dL Normal [facility] Comment on above: Result Comment: PERF ORMED BY: [place] [address] PATHOLOGIST CIVIL ENGINEERING PROFESSIONAL [employer] M.D. Performed By: #### A 1C NAKIA eA, CMP #### [address] HbA1c (Bld) [Mass fraction] 6.0 % High 4.3-5.6 [facility] Comment on above: Result Comment: Incr eased risk for diabetes: 5.7 - 6.4 diabetes: >6.4 glycemic control for adults with diabetes: <7.0 Performed By: #### A 1C NAKIA Laboy, CMP #### [address] Complete Blood Count Auto Di ffon 06-01-2023 Basophils (Bld) [#/Vol] 0.0 10*3/uL Normal 0.0-0.2 [facility] Comment on above: Result Comment: PERF ORMED BY: [place] [address] PATHOLOGIST CIVIL ENGINEERING PROFESSIONAL [employer] M.D. Performed By: #### A 1C WTBrigitte eA, CBC, CMP #### [place] [address] [place] Basophils/100 WBC (Bld) 0.5 % Normal . [facility] Comment on above: Performed By: #### A 1C WTH eA, CBC, CMP #### [address] Eosinophils (Bld) [#/Vol] 0.1 10*3/uL Normal 0.0-0.45 [facility] Comment on above: Performed By: #### A 1C WTH eA, CBC, CMP #### [address] Eosinophils/100 WBC (Bld) 1.5 % Normal . [facility] Comment on above: Performed By: #### A 1C WTH eA, CBC, CMP #### [address] Erythrocyte distribution width (RBC) [Ratio] 12.9 % Normal 11.9-15.3 [facility] Comment on above: Performed By: #### A 1C NAKIA Laboy, CBC, CMP #### [facility] [address] Hematocrit (Bld) [Volume fraction] 35.4 % Normal 34.0-46.4 [facility] Comment on above: Performed By: #### A 1C NAKIA Laboy, CBC, CMP #### [address] Hemoglobin (Bld) [Mass/Vol] 11.9 g/dL Normal 11.8-15.4 [facility] Comment on above: Performed By: #### A 1C NAKIA Laboy, CBC, CMP #### [address] Lymphocytes (Bld) [#/Vol] 1.6 10*3/uL Normal 1.00-4.8 [facility] Comment on above: Performed By: #### A 1C NAKIA Laboy, CBC, CMP #### [address] Lymphocytes/100 WBC (Bld) 31.4 % Normal . [facility] Comment on above: Performed By: #### A 1C WTBrigitte Laboy, CBC, CMP #### [address] MCH (RBC) [Entitic mass] 29.5 pg Normal 24.7-34.3 [facility] Comment on above: Performed By: #### A 1C WTBrigitte Laboy, CBC, CMP #### [address] MCV (RBC) [Entitic vol] 88.1 fL Normal 80-[address] [facility] Comment on above: Performed By: #### A 1C WTBrigitte Laboy, CBC, CMP #### [address] Mean Corpuscular HGB Conc 33.5 g/dL Normal 32.0-35.0 [facility] Comment on above: Performed By: #### A 1C WTH eA, CBC, CMP #### [facility] [address] Monocytes (Bld) [#/Vol] 0.4 10*3/uL Normal 0.0-0.8 [facility] Comment on above: Performed By: #### A 1C WTH eA, CBC, CMP #### [address] Monocytes/100 WBC (Bld) 8.8 % Normal . F [facility] Comment on above: Performed By: #### A 1C WTBrigitte Laboy, CBC, CMP #### [address] Neutrophils (Bld) [#/Vol] 2.9 10*3/uL Normal 1.8-7.7 [facility] Comment on above: Performed By: #### A 1C WTH Narda, CBC, CMP #### [address] Neutrophils/100 WBC (Bld) 57.8 % Normal . [facility] Comment on above: Performed By: #### A 1C WTBrigitte Laboy, CBC, CMP #### [address] NRBC% 0.1 /100{WBC} Normal 0-0.5 [facility] Comment on above: Performed By: #### A 1C WTH Narda, CBC, CMP #### [address] Platelet mean volume (Bld) [Entitic vol] 7.4 fL Normal 6.3-10.7 [facility] Comment on above: Performed By: #### A 1C WTH eA, CBC, CMP #### [address] Platelets (Bld) [#/Vol] 220 10*3/uL Normal 150-450 [facility] Comment on above: Performed By: #### A 1C WTH eA, CBC, CMP #### [address] [place] [address] [place] RBC (Bld) [#/Vol] 4.02 10*6/uL Normal 3.60-5.00 [facility] Comment on above: Performed By: #### A 1C NAKIA Laboy, CBC, CMP #### [facility] [address] WBC (Bld) [#/Vol] 5.1 10*3/uL Normal 3.8-11.6 [facility] Comment on above: Performed By: #### A 1C NAKIA Laboy, CBC, CMP #### [facility] [address] Comprehensive Metabolic Pane chito 06-01-2023 Albumin [Mass/Vol] 3.4 g/dL Low 3.5-5.7 [facility] Comment on above: Performed By: #### A 1C NAKIA Laboy, CMP #### [address] Albumin/Globulin [Mass ratio] 1.5 {ratio} Normal [facility] Comment on above: Performed By: #### A 1C NAKIA Laboy, CMP #### [address] ALP [Catalytic activity/Vol] 37 U/L Normal 34-104 [facility] Comment on above: Performed By: #### A 1C WTBrigitte Laboy, CMP #### [facility] [address] [place] [address] ALT [Catalytic activity/Vol] 13 U/L Normal 7-52 [facility] Comment on above: Performed By: #### A 1C WTBrigitte Laboy, CMP #### [facility] [address] [place] [address] Anion gap [Moles/Vol] 8.2 mmol/L Normal 6.0-15.0 [facility] Comment on above: Performed By: #### A 1C WTBrigitte Laboy, CMP #### [facility] [address] [place] [address] AST [Catalytic activity/Vol] 15 U/L Normal 13-39 [facility] Comment on above: Performed By: #### A 1C NAKIA Laboy, CMP #### [facility] [address] [place] [address] [place] Bilirubin [Mass/Vol] 0.3 mg/dL Normal 0.3-1.0 [facility] Comment on above: Performed By: #### A 1C NAKIA Laboy, CMP #### [facility] [address] [place] [address] [place] Calcium [Mass/Vol] 9.1 mg/dL Normal 8.6-10.3 [facility] Comment on above: Performed By: #### A 1C NAKIA Laboy, CMP #### [facility] [address] Chloride [Moles/Vol] 109 mmol/L High 98-107 [facility] Comment on above: Performed By: #### A 1C NAKIA Laboy, CMP #### [facility] [address] CO2 [Moles/Vol] 27.8 mmol/L Normal 21.0-31.0 [facility] Comment on above: Performed By: #### A 1C NAKIA Laboy, CMP #### [facility] [address] [place] [address] [place] Creatinine [Mass/Vol] 0.58 mg/dL Low 0.60-1.20 [facility] Comment on above: Performed By: #### A 1C NAKIA Laboy, CMP #### [facility] [address] [place] [address] [place] Creatinine Clr Calc Pharmacy 59.72 [facility] Comment on above: Result Comment: PERF ORMED BY: [place] [address] PATHOLOGIST CIVIL ENGINEERING PROFESSIONAL E[employer] M.D. Performed By: #### A 1C NAKIA Laboy, CMP #### [facility] [address] [place] [address] [place] GFR/1.73 sq M.predicted MDRD (S/P/Bld) [Vol rate/Area] mL/min/{1.73_m2} [facility] Comment on above: Performed By: #### A Treva YEE eA CMP #### [facility] [address] Globulin (S) [Mass/Vol] 2.2 g/dL Normal F [facility] Comment on above: Performed By: #### A Treva YEE eA CMP #### [facility] [address] Glucose [Mass/Vol] 94 mg/dL Normal 70-100 [facility] Comment on above: Result Comment: Center Glucose Reference Range is dependent on time and content of last meal. Glucose of more than 200 mg/dL in a nonstressed, ambulatory subject supports the diagnosis of Diabetes Mellitus. ADA recommended reference range Performed By: #### A Treva YEE eA CMP #### [facility] [address] Potassium [Moles/Vol] 4.0 mmol/L Normal 3.5-5.1 [facility] Comment on above: Performed By: #### A Treva YEE eA CMP #### [address] Protein [Mass/Vol] 5.6 g/dL Low 6.4-8.9 [facility] Comment on above: Performed By: #### A Treva YEE eA CMP #### [address] Sodium [Moles/Vol] 141 mmol/L Normal 136-145 [facility] Comment on above: Performed By: #### A Treva YEE eA CMP #### [place] [address] [place] Urea nitrogen [Mass/Vol] 18 mg/dL Normal 7-25 [facility] Comment on above: Performed By: #### A Treva YEE eA CMP #### [facility] [address] [place] [address] [place] Dipstick and Microscopicon 0 05-31-2023 Appearance (U) Slightly Cloudy Critically abnormal Clear [facility] Comment on above: Order Comment: Name Collection Type:: Clean-Voided Midstream Performed By: #### A 1C WTH eA, CMP #### [facility] [address] [place] [address] [place] Bacteria,Urine None Seen Normal None Seen [facility] Comment on above: Order Comment: Name Collection Type:: Clean-Voided Midstream Performed By: #### A 1C WTH eA, CMP #### [facility] [address] [place] [address] [place] Bilirubin,Urine Negative Normal Negative [facility] Comment on above: Order Comment: Name Collection Type:: Clean-Voided Midstream Performed By: #### A 1C WTH eA, CMP #### [facility] [address] [place] [address] [place] Color (U) Yellow Normal Yellow [facility] Comment on above: Order Comment: Name Collection Type:: Clean-Voided Midstream Performed By: #### A 1C WTH eA, CMP #### [place] [address] [place] Glucose Ql (U) Normal Normal Normal [facility] Comment on above: Order Comment: Name Collection Type:: Clean-Voided Midstream Performed By: #### A 1C WTH eA, CMP #### [facility] [address] [place] [address] [place] Hyaline Casts,Urine 9-19 High 0-8 [facility] Comment on above: Order Comment: Name Collection Type:: Clean-Voided Midstream Result Comment: PERF ORMED BY: [place] [address] PATHOLOGIST CIVIL ENGINEERING PROFESSIONAL ELE [employer]ING M.D. Performed By: #### A 1C WTH eA, CMP #### [facility] [address] [place] [address] [place] Ketones Ql (U) Negative Normal Negative [facility] Comment on above: Order Comment: Name Collection Type:: Clean-Voided Midstream Performed By: #### A 1C WTH eA, CMP #### [facility] [address] [place] [address] [place] Leukocyte esterase Test strip Ql (U) 2+ High Negative [facility] Comment on above: Order Comment: Name Collection Type:: Clean-Voided Midstream Performed By: #### A 1C WTH eA, CMP #### [place] [address] [place] Nitrite,Urine Negative Normal Negative [facility] Comment on above: Order Comment: Name Collection Type:: Clean-Voided Midstream Performed By: #### A 1C WTH eA, CMP #### [address] Occult Blood,Urine Negative Normal Negative [facility] Comment on above: Order Comment: Name Collection Type:: Clean-Voided Midstream Result Comment: PERF ORMED BY: [place] [address] PATHOLOGIST [employer]IVIL ENGINEERING PROFESSIONAL E[employer]ING M.D. Performed By: #### A 1C WTH eA, CMP #### [address] Othe Crystals,Urine None Seen Normal [facility] Comment on above: Order Comment: Name Collection Type:: Clean-Voided Midstream Performed By: #### A 1C WTH eA, CMP #### [address] pH (U) 6.0 [pH] Normal 5.0-9.0 [facility] Comment on above: Order Comment: Name Collection Type:: Clean-Voided Midstream Performed By: #### A 1C WTH eA, CMP #### [place] [address] [place] Protein,Urine Negative Normal Negative [facility] Comment on above: Order Comment: Name Collection Type:: Clean-Voided Midstream Performed By: #### A 1C WTH eA, CMP #### [place] [address] [place] RBC,Urine 5-9 High 0-4 [facility] Comment on above: Order Comment: Name Collection Type:: Clean-Voided Midstream Performed By: #### A 1C WTH eA, CMP #### [place] [address] [place] Specificy Hatley,Urine 1.030 Normal 1.001-1.030 [facility] Comment on above: Order Comment: Name Collection Type:: Clean-Voided Midstream Performed By: #### A 1C WTH eA, CMP #### [facility] [address] [place] [address] Squamous Epithelial Cell,Urine 1-2 Normal 0-2 [facility] Comment on above: Order Comment: Name Collection Type:: Clean-Voided Midstream Performed By: #### A 1C WTH eA, CMP #### [address] Uric Acid Crystals,Urine 1+ Normal [facility] Comment on above: Order Comment: Name Collection Type:: Clean-Voided Midstream Performed By: #### A 1C WTH eA, CMP #### [address] Urobilinogen,Urine Normal Normal Normal [facility] Comment on above: Order Comment: Name Collection Type:: Clean-Voided Midstream Performed By: #### A 1C WTH eA, CMP #### [facility] [address] [place] [address] [place] WBC,Urine 5-9 High 0-4 [facility] Comment on above: Order Comment: Name Collection Type:: Clean-Voided Midstream Performed By: #### A 1C WTH eA, CMP #### [facility] [address] [place] [address] MR head/brain wo conon 05-31 MR head/brain wo con [facility] [place] [address] MRI Report Signed Patient: Yoana Bullock MR#: [id number] [birth year] : 1955 Acct:[id number] Age/Sex: 67 / F ADM Date: 05/25/23 Loc: Room: [address] [place] [address] Type: ADM IN Attending Dr: Sridhar Hoffman MD Copies to: Sridhar Hoffman MD Ordering [...] ABNORMALITY. Impression dictated by: Raymundo Coates Jr., D.OEsteban05/31/2023 1:55 PM Dictation Location: [place] [address] Transcribed By: [facility] 05/31/23 1355 Dictated By: Raymundo Coates Jr, DO 05/31/23 1348 Signed By: 05/31/23 1355 Normal [facility] Urine Cultureon 05-31-2023 Bacteria identified Cx Nom (U) 15,000 colonies/ml mixed bacterial skin contaminants 2 Days PERFORMED BY: [place] [address] PATHOLOGIST CIVIL ENGINEERING PROFESSIONAL E[employer]ING M.D. [facility] Comment on above: Performed By: #### A 1C ALFREDO Narda, CMP #### [facility] [address] [place], [place] [id number] [facility] Ammoniaon 05-29-2023 Ammonia (P) [Moles/Vol] 21 umol/L Normal 11-[address] [facility] Comment on above: Result Comment: PERF ORMED BY: [place] [id number] PATHOLOGIST CIVIL ENGINEERING PROFESSIONAL ELE SPRING M.D. Performed By: #### A 1C ALFREDO Narda, CMP #### [facility] [address] [place], [place] [address] [facility] Vitamin B12on 05-29-2023 Cobalamin (Vitamin B12) [Mass/Vol] 380 pg/mL Normal 180-914 [facility] Comment on above: Result Comment: PERF ORMED BY: [place] [address] PATHOLOGIST CIVIL ENGINEERING PROFESSIONAL E[employer]ING M.D. Performed By: #### A 1C [facility] eA, [facility] #### [facility] [address] Lipid Panelon 05-26-2023 Cholesterol [Mass/Vol] 177 mg/dL Normal 140-200 [facility] Comment on above: Result Comment: Chol less than 200 mg/dl low risk Chol 201-239 mg/dl borderline risk Chol 240 mg/dl and greater high risk Performed By: #### L IPID, [id number], TSH3 wRFLX #### [facility] [address] Cholesterol in HDL [Mass/Vol] 62 mg/dL Normal 23-92 [facility] Comment on above: Result Comment: HDL CHOL ATP-III CLASSIFICATION Cardiovascular Risk HDL > or equal to 60 mg/dL LOW HDL < 40 mg/dL HIGH Performed By: #### L IPID, [id number], TSH3 wRFLX #### [address] Cholesterol.total/Choles terol in HDL [Mass ratio] 2.9 {ratio} Normal <5.0 [facility] Comment on above: Performed By: #### L IPID, [id number], TSH3 wRFLX #### [address] LDL Cholesterol,Calculated 95 mg/dL Normal 0-100 [facility] Comment on above: Result Comment: LDL ATP III CLASSIFICATION LDL less than 100 mg/dL Optimal LDL 100-129 mg/dL Near or above optimal LDL 130-159 mg/dL Borderline high LDL 160-189 mg/dL High LDL greater than 189 mg/dL Very high Performed By: #### L IPID, [id number], TSH3 wRFLX #### [facility] [address] Triglyceride w/Reflex 100 mg/dL Normal 0-149 [facility] Comment on above: Result Comment: TRIG ATP III CLASSIFICATION TRIG less than 150 mg/dL Normal TRIG 150-199 mg/dL Borderline high TRIG 200-500 mg/dL High TRIG greater than 500 mg/dL Very high Standard traceable to the Center for Disease Conrtrol and Prevention (CDC) test method. Performed By: #### L IPID, [id number], TSH3 wRFLX #### [address] VLDL CHOLESTEROL 20 mg/dL Normal [facility] Comment on above: Performed By: #### L IPID, [id number], TSH3 wRFLX #### [address] Thyroid Stim Hormone w/Rflxo n 05-26-2023 Thyroid Stim Hormone w/Rflx 2.11 u[iU]/mL Normal 0.45-5.33 [facility] Comment on above: Performed By: #### L IPID, [id number], TSH3 wRFLX #### [address] Vitamin D 25 Hydroxy Totalon 05-26-2023 Vitamin D 25 Hydroxy Total 25.4 ng/mL Low 30-100 [facility] Comment on above: Result Comment: HUSAM MIN D STATUS 25(OH)VITAMIN D RANGE (ng/mL) Deficient <20 Insufficient 20 to <30 Sufficient 30 to 100 Reference: Shaq MF,Monica NC, Fabrizio , et al. Evaluation,treatment, and prevention of vitamin D deficiency; an Endocrine Society clinical practice guideline. JCEM. 2010; 96(7):1911-30. PERFORMED BY: [place] [address] PATHOLOGIST CIVIL ENGINEERING PROFESSIONAL [employer] M.D. Performed By: #### L IPID, [id number], TSH3 wRFLX #### [address] Alanine aminotransferase [En zymatic activity/volume] in Serum or PlasmaOrdered By: Robert Caruso on 05-25-2023 ALT [Catalytic activity/Vol] 14 U/L 7-52 [facility] Albumin [Mass/volume] in Ser um or Plasma by Bromocresol green (BCG) dye binding methoOrdered By: Robert Caruso on 05-25-2023 Albumin BCG dye [Mass/Vol] 4.4 g/dL 3.5-5.7 [facility] Alkaline phosphatase [Enzyma tic activity/volume] in Serum or PlasmaOrdered By: Robert Caruso on 05-25-2023 ALP [Catalytic activity/Vol] 48 U/L 34-104 [facility] Amphetamine Screen Ql (U)Ord ered By: Robetr Caruso on 05-25-2023 Amphetamines Ql (U) Negative Negative [facility] Aspartate aminotransferase [ Enzymatic activity/volume] in Serum or PlasmaOrdered By: Robert Caruso on 05-25-2023 AST [Catalytic activity/Vol] 21 U/L 13-39 [facility] Barbiturates [Presence] in U rine by Screen methodOrdered By: Robert Caruso on 05-25-2023 Barbiturates Screen Ql (U) Negative Negative [facility] Basophils Auto (Bld) [#/Vol] Ordered By: Robert Caruso on 05-25-2023 Basophils (Bld) [#/Vol] 0.0 10*3/uL 0.0-0.2 [facility] Basophils/100 WBC Auto (Bld) Ordered By: Robert Caruso on 05-25-2023 Basophils/100 WBC (Bld) 0.5 % . F [facility] Benzodiazepines Screen Ql (U )Ordered By: Robert Caruso on 05-25-2023 Benzodiazepines Ql (U) Negative Negative [facility] Benzoylecgonine [Presence] i n Urine by Screen methodOrdered By: Robert Caruso on 05-25-2023 Benzoylecgonine Screen Ql (U) Negative Negative [facility] Bilirubin.total [Mass/volume ] in Serum or PlasmaOrdered By: Robert Caruso on 05-25-2023 Bilirubin [Mass/Vol] 0.8 mg/dL 0.3-1.0 [facility] Calcium [Mass/volume] in Ser um or PlasmaOrdered By: Robert Caruso on 05-25-2023 Calcium [Mass/Vol] 10.1 mg/dL 8.6-10.3 [facility] Cannabinoids [Presence] in U rine by Screen methodOrdered By: Robert Caruso on 05-25-2023 Cannabinoids Screen Ql (U) Negative Negative [facility] Comment on above: These are unconfirme d results and should not be used for legal purposes. Drug Cut-Off Concentration: AMPH 1000 ng/mL GABRIELA 200 ng/mL SIVA 200 ng/mL COCM 300 ng/mL OP 300 ng/mL PCP 25 ng/mL THC 20 ng/mL Carbon dioxide, total [Moles /volume] in Serum or PlasmaOrdered By: Robert Caruso on 05-25-2023 CO2 [Moles/Vol] 29.6 mmol/L 21.0-31.0 [facility] Chloride [Moles/volume] in S anupam or PlasmaOrdered By: Robert Caruso on 05-25-2023 Chloride [Moles/Vol] 102 mmol/L 98-107 [facility] Complete Blood Count Auto Di ffon 05-25-2023 Basophils (Bld) [#/Vol] 0.0 10*3/uL Normal 0.0-0.2 [facility] Comment on above: Result Comment: PERF ORMED BY: [place] [address] PATHOLOGIST CIVIL ENGINEERING PROFESSIONAL E[employer]ING M.D. Performed By: #### A 1C [facility] Narda CMP #### [facility] [address] [place] [address] [place] Basophils/100 WBC (Bld) 0.5 % Normal . F [facility] Comment on above: Performed By: #### A 1C [facility] Narda CMP #### [facility] [address] [place] [address] [place] Eosinophils (Bld) [#/Vol] 0.0 10*3/uL Normal 0.0-0.45 [facility] Comment on above: Performed By: #### A 1C [facility] Narda CMP #### [facility] [address] [place] [address] [place] Eosinophils/100 WBC (Bld) 0.1 % Normal . [facility] Comment on above: Performed By: #### A 1C [facility] Narda, CMP #### [facility] [address] Erythrocyte distribution width (RBC) [Ratio] 12.9 % Normal 11.9-15.3 [facility] Comment on above: Performed By: #### A Treva YEE eA CMP #### [facility] [address] Hematocrit (Bld) [Volume fraction] 41.6 % Normal 34.0-46.4 [facility] Comment on above: Performed By: #### A Treva YEE eA, CMP #### [address] Hemoglobin (Bld) [Mass/Vol] 14.1 g/dL Normal 11.8-15.4 [facility] Comment on above: Performed By: #### A Treva YEE eA CMP #### [address] Lymphocytes (Bld) [#/Vol] 1.1 10*3/uL Normal 1.00-4.8 [facility] Comment on above: Performed By: #### A Treva YEE eA CMP #### [address] Lymphocytes/100 WBC (Bld) 15.5 % Normal . [facility] Comment on above: Performed By: #### A Treva YEE eA CMP #### [address] MCH (RBC) [Entitic mass] 29.9 pg Normal 24.7-34.3 [facility] Comment on above: Performed By: #### A Treva YEE eA CMP #### [address] MCV (RBC) [Entitic vol] 87.8 fL Normal 80-[address] [facility] Comment on above: Performed By: #### A Treva YEE eA, CMP #### [address] Mean Corpuscular HGB Conc 34.0 g/dL Normal 32.0-35.0 [facility] Comment on above: Performed By: #### A 1C NAKIA Laboy, CMP #### [facility] [address] [place] [address] [place] Monocytes (Bld) [#/Vol] 0.3 10*3/uL Normal 0.0-0.8 [facility] Comment on above: Performed By: #### A Treva YEE eA, CMP #### [facility] [address] [place] [address] [place] Monocytes/100 WBC (Bld) 17.76 % Normal 0.00-20.00 [facility] Comment on above: Performed By: #### A 1C NAKIA Laboy, CMP #### [facility] [address] [place] [address] [place] Monocytes/100 WBC (Bld) 3.9 % Normal . F [facility] Comment on above: Performed By: #### A Treva YEE eA, CMP #### [facility] [address] [place] [address] [place] Neutrophils (Bld) [#/Vol] 5.6 10*3/uL Normal 1.8-7.7 [facility] Comment on above: Performed By: #### A Treva YEE eA, CMP #### [facility] [address] [place] [address] [place] Neutrophils/100 WBC (Bld) 80.0 % Normal . [facility] Comment on above: Performed By: #### A Treva YEE eA, CMP #### [facility] [address] [place] [address] [place] NRBC% 0.0 /100{WBC} Normal 0-0.5 [facility] Comment on above: Performed By: #### A 1C NAKIA Laboy, CMP #### [facility] [address] [place] [address] [place] Platelet mean volume (Bld) [Entitic vol] 7.9 fL Normal 6.3-10.7 [facility] Comment on above: Performed By: #### A 1C NAKIA Laboy, CMP #### [facility] [address] [place] [address] [place] Platelets (Bld) [#/Vol] 292 10*3/uL Normal 150-450 [facility] Comment on above: Performed By: #### A 1C NAKIA Laboy CMP #### [address] RBC (Bld) [#/Vol] 4.74 10*6/uL Normal 3.60-5.00 [facility] Comment on above: Performed By: #### A Treva YEE eA CMP #### [address] WBC (Bld) [#/Vol] 7.0 10*3/uL Normal 3.8-11.6 [facility] Comment on above: Performed By: #### A Treva YEE eA CMP #### [address] Comprehensive Metabolic Pane chito 05-25-2023 Albumin [Mass/Vol] 4.4 g/dL Normal 3.5-5.7 [facility] Comment on above: Performed By: #### A 1C NAKIA Laboy CMP #### [address] Albumin/Globulin [Mass ratio] 1.5 {ratio} Normal [facility] Comment on above: Performed By: #### A Treva YEE eA CMP #### [address] ALP [Catalytic activity/Vol] 48 U/L Normal 34-104 [facility] Comment on above: Performed By: #### A 1C NAKIA Laboy CMP #### [address] ALT [Catalytic activity/Vol] 14 U/L Normal 7-52 [facility] Comment on above: Performed By: #### A Treva YEE eA CMP #### [address] Anion gap [Moles/Vol] 10.1 mmol/L Normal 6.0-15.0 [facility] Comment on above: Performed By: #### A 1C NAKIA Laboy CMP #### [address] [place] [address] [place] AST [Catalytic activity/Vol] 21 U/L Normal 13-39 [facility] Comment on above: Performed By: #### A Treva YEE eA CMP #### [facility] [address] Bilirubin [Mass/Vol] 0.8 mg/dL Normal 0.3-1.0 [facility] Comment on above: Performed By: #### A Treva YEE eA CMP #### [facility] [address] Calcium [Mass/Vol] 10.1 mg/dL Normal 8.6-10.3 [facility] Comment on above: Performed By: #### A Treva YEE eA CMP #### [facility] [address] Chloride [Moles/Vol] 102 mmol/L Normal 98-107 [facility] Comment on above: Performed By: #### A Treva YEE eA CMP #### [facility] [address] CO2 [Moles/Vol] 29.6 mmol/L Normal 21.0-31.0 [facility] Comment on above: Performed By: #### A Treva YEE eA CMP #### [facility] [address] [place] [address] [place] Creatinine [Mass/Vol] 0.76 mg/dL Normal 0.60-1.20 [facility] Comment on above: Performed By: #### A Treva YEE eA CMP #### [facility] [address] [place] [address] [place] Creatinine Clr Calc Pharmacy 59.72 Normal [facility] Comment on above: Result Comment: PERF ORMED BY: [place] [address] PATHOLOGIST [employer]IVIL ENGINEERING PROFESSIONAL [employer] M.D. Performed By: #### A Treva YEE eA CMP #### [place] [address] [place] GFR/1.73 sq M.predicted MDRD (S/P/Bld) [Vol rate/Area] mL/min/{1.73_m2} Normal [facility] Comment on above: Performed By: #### A Treva YEE eA CMP #### [facility] [address] Globulin (S) [Mass/Vol] 2.9 g/dL Normal [facility] Comment on above: Performed By: #### A Treva YEE eA CMP #### [facility] [address] Glucose [Mass/Vol] 120 mg/dL High 70-100 [facility] Comment on above: Result Comment: [facility] Glucose Reference Range is dependent on time and content of last meal. Glucose of more than 200 mg/dL in a nonstressed, ambulatory subject supports the diagnosis of Diabetes Mellitus. ADA recommended reference range Performed By: #### A Treva YEE eA CMP #### [address] Potassium [Moles/Vol] 3.7 mmol/L Normal 3.5-5.1 [facility] Comment on above: Performed By: #### A Treva YEE eA CMP #### [address] Protein [Mass/Vol] 7.3 g/dL Normal 6.4-8.9 [facility] Comment on above: Performed By: #### A Treva YEE eA CMP #### [address] Sodium [Moles/Vol] 138 mmol/L Normal 136-145 [facility] Comment on above: Performed By: #### A Treva YEE eA CMP #### [address] Urea nitrogen [Mass/Vol] 12 mg/dL Normal 7-25 [facility] Comment on above: Performed By: #### A Treva YEE eA CMP #### [address] Creatinine [Mass/volume] in Serum or PlasmaOrdered By: Robert Caruso on 05-25-2023 Creatinine [Mass/Vol] 0.76 mg/dL 0.60-1.20 [facility] Drug Screen,Urineon 05-25-19 24 Amphetamine Screen,Urine Negative Normal Negative [facility] Comment on above: Performed By: #### U RDS, CG #### [place] [address] [place] Barbiturate Screen,Urine Negative Normal Negative [facility] Comment on above: Performed By: #### U RDS, CG #### [place] [address] [place] Benzodiazepines Screen,Urine Negative Normal Negative [facility] Comment on above: Performed By: #### U RDS, [facility] #### [address] Cannabinoid Screen,Urine Negative Normal Negative [facility] Comment on above: Result Comment: Thes e are unconfirmed results and should not be used for legal purposes. Drug Cut-Off Concentration: AMPH 1000 ng/mL GABRIELA 200 ng/mL SIVA 200 ng/mL COCM 300 ng/mL OP 300 ng/mL PCP 25 ng/mL THC 20 ng/mL PERFORMED BY: [place] [address] PATHOLOGIST CIVIL ENGINEERING PROFESSIONAL ELE [employer] M.D. Performed By: #### U RDS, [facility] #### [place] [address] [place] Cocaine Screen,Urine Negative Normal Negative [facility] Comment on above: Performed By: #### U RDS, CG #### [place] [address] [place] Opiate Screen,Urine Negative Normal Negative [facility] Comment on above: Performed By: #### U RDS, CG #### [place] [address] [place] Phencyclidine Screen,Urine Negative Normal Negative [facility] Comment on above: Performed By: #### U RDS, CG #### [address] [address] [facility] ECG 12 lead ECGon 05-25-2023 ECG 12 lead ECG [facility] [place] [address] [place] [id number] Electrocardiograph Report Signed Patient: Yoana Bullock MR#: [id number] [birth year] : 1955 Acct:[id number] Age/Sex: 67 / F ADM Date: 05/25/23 Loc: Room: [address] [place] [address] Type: ADM IN Attending Dr: Sridhar Hoffman [...] previous ECGs available Confirmed by Fidel Flood ([id number]) on 05/25/2023 5:09:43 PM Referred By: Electronically Signed By:Fidel Flood Transcribed By: MUS Signed By Fidel Flood MD 05/25/23 1705 Normal [facility] Eosinophils Auto (Bld) [#/Vo l]Ordered By: Robert Caruso on 05-25-2023 Eosinophils (Bld) [#/Vol] 0.0 10*3/uL 0.0-0.45 [facility] Eosinophils/100 WBC Auto (Bl d)Ordered By: Robert Caruso on 05-25-2023 Eosinophils/100 WBC (Bld) 0.1 % . [facility] Erythrocyte distribution wid th Auto (RBC) [Ratio]Ordered By: Robert Caruso on 05-25-2023 Erythrocyte distribution width (RBC) [Ratio] 12.9 % 11.9-15.3 [facility] Ethanol [Mass/volume] in Ser um or PlasmaOrdered By: Robert Caruso on 05-25-2023 Ethanol [Mass/Vol] mg/dL [facility] Ethanol [Mass/Vol] TNP [facility] Comment on above: Test not performed Ethyl Alcohol Profileon Ethanol [Mass/Vol] mg/dL Normal [facility] Comment on above: Performed By: #### A 1C [facility] Narda, CMP #### [facility] [address] Percent Ethanol Not performed Normal [facility] Comment on above: Result Comment: PERF ORMED BY: [place] [address] PATHOLOGIST [employer]IVIL ENGINEERING PROFESSIONAL ELE [employer] M.D. Performed By: #### A 1C [facility] Narda CMP #### [facility] [address] [place] [address] Globulin Calc (S) [Mass/Vol] Ordered By: Robert Caruso on 05-25-2023 Globulin (S) [Mass/Vol] 2.9 g/dL F [facility] Glucose [Mass/volume] in Ser um or PlasmaOrdered By: Robert Caruso on 05-25-2023 Glucose [Mass/Vol] 120 mg/dL 70-100 [facility] Comment on above: ADA recommended refe rence rangeRandom Glucose Reference Range is dependent on time and content of last meal. Glucose of more than 200 mg/dL in a nonstressed, ambulatory subject supports the diagnosis of Diabetes Mellitus. HCG ( test) IAmikaela d Ql (U)Ordered By: Robert Caruso on 05-25-2023 HCG ( test) Ql (U) Negative [facility] HCG,Urineon 05-25-2023 Beta HCG ( test) Ql (U) Negative Normal [facility] Comment on above: Result Comment: PERF ORMED BY: [place] [address] PATHOLOGIST CIVIL ENGINEERING PROFESSIONAL E[employer] M.D. Performed By: #### U RDS, CG #### [address] Hematocrit Auto (Bld) [Volum e fraction]Ordered By: Robert Caruso on 05-25-2023 Hematocrit (Bld) [Volume fraction] 41.6 % 34.0-46.4 [facility] Hemoglobin [Mass/volume] in BloodOrdered By: Robert Caruso on 05-25-2023 Hemoglobin (Bld) [Mass/Vol] 14.1 g/dL 11.8-15.4 [facility] Leukocytes [#/volume] correc gage for nucleated erythrocytes in Blood by Automated counOrdered By: Robert Caruso on 05-25-2023 WBC corrected for nucl RBC Auto (Bld) [#/Vol] 7.0 10*3/uL 3.8-11.6 [facility] Lymphocytes Auto (Bld) [#/Vo l]Ordered By: Robert Caruso on 05-25-2023 Lymphocytes (Bld) [#/Vol] 1.1 10*3/uL 1.00-4.8 [facility] Lymphocytes/100 WBC Auto (Bl d)Ordered By: Robert Caruso on 05-25-2023 Lymphocytes/100 WBC (Bld) 15.5 % . [facility] MCH Auto (RBC) [Entitic mass ]Ordered By: Robert Caruso on 05-25-2023 MCH (RBC) [Entitic mass] 29.9 pg 24.7-34.3 [facility] MCHC Auto (RBC) [Mass/Vol]Or dered By: Robert Caruso on 05-25-2023 MCHC (RBC) [Mass/Vol] 34.0 g/dL 32.0-35.0 [facility] MCV Auto (RBC) [Entitic vol] Ordered By: Robert Caruso on 05-25-2023 MCV (RBC) [Entitic vol] 87.8 fL 80-[address] [facility] Monocyte distribution width [Entitic volume] in Blood by AutomatedOrdered By: Robert Caruso on 05-25-2023 Monocyte distribution width Auto (Bld) [Entitic vol] 17.76 % 0.00-20.00 [facility] Monocytes Auto (Bld) [#/Vol] Ordered By: Robert Caruso on 05-25-2023 Monocytes (Bld) [#/Vol] 0.3 10*3/uL 0.0-0.8 [facility] Monocytes/100 WBC Auto (Bld) Ordered By: Robert Caruso on 05-25-2023 Monocytes/100 WBC (Bld) 3.9 % . F [facility] Neutrophils Auto (Bld) [#/Vo l]Ordered By: Robert Caruso on 05-25-2023 Neutrophils (Bld) [#/Vol] 5.6 10*3/uL 1.8-7.7 [facility] Neutrophils/100 WBC Auto (Bl d)Ordered By: Robert Caruso on 05-25-2023 Neutrophils/100 WBC (Bld) 80.0 % . [facility] No Panel InformationOrdered By: Robert Caruso on 05-25-2023 Estimated GFR (CKD-EPI) > 60.0 mL/Min [facility] Creatinine Clearance (Chem 59.72 [facility] Nucleated erythrocytes [Pres ence] in Blood by Automated countOrdered By: Robert Caruso on 05-25-2023 Nucleated RBC Auto Ql (Bld) 0.0 /100{WBC} 0-0.5 [facility] Opiates [Presence] in Urine by Screen methodOrdered By: Robert Caruso on 05-25-2023 Opiates Screen Ql (U) Negative Negative [facility] Phencyclidine Screen Ql (U)O rdered By: Robert Caruso on 05-25-2023 Phencyclidine Ql (U) Negative Negative [facility] Platelet mean volume Auto (B ld) [Entitic vol]Ordered By: Robert Caruso on 05-25-2023 Platelet mean volume (Bld) [Entitic vol] 7.9 fL 6.3-10.7 [facility] Platelets Auto (Bld) [#/Vol] Ordered By: Robert Caruso on 05-25-2023 Platelets (Bld) [#/Vol] 292 10*3/uL 150-450 [facility] Potassium [Moles/volume] in Serum or PlasmaOrdered By: Robert Caruso on 05-25-2023 Potassium [Moles/Vol] 3.7 mmol/L 3.5-5.1 [facility] Protein [Mass/volume] in Ser um or PlasmaOrdered By: Robert Caruso on 05-25-2023 Protein [Mass/Vol] 7.3 g/dL 6.4-8.9 [facility] RBC Auto (Bld) [#/Vol]Ordere d By: Robert Caruso on 05-25-2023 RBC (Bld) [#/Vol] 4.74 10*6/uL 3.60-5.00 [facility] Serum or plasma albumin/glob ulin mass ratioOrdered By: Robert Caruso on 05-25-2023 Albumin/Globulin [Mass ratio] 1.5 {ratio} [facility] Serum or plasma anion gap de terminationOrdered By: Robert Caruso on 05-25-2023 Anion gap [Moles/Vol] 10.1 mmol/L 6.0-15.0 [facility] Sodium [Moles/volume] in Ser um or PlasmaOrdered By: Robert Caruso on 05-25-2023 Sodium [Moles/Vol] 138 mmol/L 136-145 [facility] Urea nitrogen [Mass/volume] in Serum or PlasmaOrdered By: Robert Caruso on 05-25-2023 Urea nitrogen [Mass/Vol] 12 mg/dL 7-25 [facility] WBC Auto (Bld) [#/Vol]Ordere d By: Robert Caruso on 05-25-2023 WBC (Bld) [#/Vol] 7.0 10*3/uL 3.8-11.6 [facility] .Fentanyl Scrn wo Conf,Uron 05-20-2023 Ur Fentanyl Scrn Negative Normal NEG <1.0 [facility] Comment on above: Performed By: #### C [id number] #### [address] [address] Ur Fentanyl Scrn Qnt 0.10 ng/mL Normal <=0.99 [facility] Comment on above: Performed By: #### C [id number] #### [address] [address] .eGFRon 05-20-2023 GFR/1.73 sq M.predicted MDRD (S/P/Bld) [Vol rate/Area] mL/min/{1.73_m2} Normal >=60 [facility] Comment on above: Result Comment: [facility] Laboratories have implemented the eGFR [...] years Performed By: #### E GFR #### [address] [address] CBC w/ Diffon 05-20-2023 Erythrocyte distribution width (RBC) [Ratio] 13.2 % Normal 11.6-14.8 [facility] Comment on above: Performed By: #### C BC #### [address] [address] Hematocrit (Bld) [Volume fraction] 40.9 % Normal 36.0-46.0 [facility] Comment on above: Performed By: #### C BC #### [address] [address] Hemoglobin (Bld) [Mass/Vol] 13.9 g/dL Normal 12.0-16.0 [facility] Comment on above: Performed By: #### C BC #### [address] [address] MCH (RBC) [Entitic mass] 30.1 pg Normal 27.0-35.0 [facility] Comment on above: Performed By: #### C BC #### [address] [address] MCHC 34.1 % Normal 31.0-37.0 [facility] Comment on above: Performed By: #### C BC #### [address] [address] MCV (RBC) [Entitic vol] 88.2 fL Normal 80.0-100.[address] [facility] Comment on above: Performed By: #### C BC #### [address] [address] Platelet 250 x10*3/mcL Normal 150-450 [facility] Comment on above: Performed By: #### C BC #### [address] [address] Platelet mean volume (Bld) [Entitic vol] 7.6 fL Normal 6.7-10.6 [facility] Comment on above: Performed By: #### C BC #### [address] [address] RBC 4.63 x10*6/mcL Normal 3.80-5.20 [facility] Comment on above: Performed By: #### C BC #### [address] [address] WBC 5.6 x10*3/mcL Normal 4.5-11.0 [facility] Comment on above: Performed By: #### C BC #### [address] [address] CMPon 05-20-2023 Albumin [Mass/Vol] 4.5 g/dL Normal 3.2-4.9 [facility] Comment on above: Performed By: #### C OMP #### [address] [address] Albumin/Globulin [Mass ratio] 1.4 {ratio} Normal 1.1-2.2 [facility] Comment on above: Performed By: #### C OMP #### [address] [address] Alk Phos 47 IU/L Normal 32-91 [facility] Comment on above: Performed By: #### C OMP #### [address] [address] ALT [Catalytic activity/Vol] 18 U/L Normal 14-54 [facility] Comment on above: Performed By: #### C OMP #### [address] [address] Anion gap [Moles/Vol] 14 mmol/L Normal 7-17 [facility] Comment on above: Performed By: #### C OMP #### [address] [address] AST [Catalytic activity/Vol] 28 U/L Normal 15-41 [facility] Comment on above: Performed By: #### C OMP #### [address] [address] Bili Total 0.8 mg/dL Normal 0.3-1.2 [facility] Comment on above: Performed By: #### C OMP #### [address] [address] Calcium [Mass/Vol] 10.1 mg/dL Normal 8.5-10.3 [facility] Comment on above: Performed By: #### C OMP #### [address] [address] Chloride [Moles/Vol] 100 mmol/L Normal 98-110 [facility] Comment on above: Performed By: #### C OMP #### [address] [place] [address] CO2 [Moles/Vol] 27 mmol/L Normal 22-32 [facility] Comment on above: Performed By: #### C OMP #### [address] [address] Creatinine [Mass/Vol] 0.96 mg/dL Normal 0.44-1.03 [facility] Comment on above: Performed By: #### C OMP #### [address] [place] [address] Glucose [Mass/Vol] 116 mg/dL High 70-99 [facility] Comment on above: Performed By: #### C OMP #### [address] [address] Potassium [Moles/Vol] 4.0 mmol/L Normal 3.4-4.8 [facility] Comment on above: Performed By: #### C OMP #### [address] [address] Protein [Mass/Vol] 7.8 g/dL Normal 6.5-8.1 [facility] Comment on above: Performed By: #### C OMP #### [address] [address] Sodium [Moles/Vol] 137 mmol/L Normal 133-142 [facility] Comment on above: Performed By: #### C OMP #### [address] [address] Urea nitrogen [Mass/Vol] 13 mg/dL Normal 8-26 [facility] Comment on above: Performed By: #### C OMP #### [address] [address] Urea nitrogen/Creatinine [Mass ratio] 13.5 mg/mg Normal 10.0-20.0 [facility] Comment on above: Performed By: #### C OMP #### [address] [address] [address] Brain w/o Contraston -0 CT Brain w/o Contrast CT Brain w/o [...] or other acute finding. Radiation Dose Estimate: CTDI(mGy):0.959328 / / / kVp:120.694453 / mAs:0.113096 / / / DLP(mGy-cm):5.770913 Body Part: Head CTDI(mGy):44.730282 / / / kVp:120.172731 / mAs:182.222623 / / / DLP(mGy-cm):813.3300 17Body Part: Head Final Dictated by: Tremayne Butler MD Dictated DT/TM: 05.20.2023 2:48 pm Signed by: Tremayne Butler MD Signed (Electronic Signature): 05.20.2023 2:50 pm (If Report Is Signed, Electronically Signed in Other Vendor System) Normal [facility] Diff Autoon 05-20-2023 Baso Absolute 0.0 x10*3/mcL Normal 0.0-0.2 [facility] Comment on above: Performed By: #### . Automated Diff #### [address] [address] Basophils/100 WBC (Bld) 0.5 % Normal 0.0-1.5 [facility] Comment on above: Performed By: #### . Automated Diff #### [address] [address] Eos Absolute 0.0 x10*3/mcL Normal 0.0-0.4 [facility] Comment on above: Performed By: #### . Automated Diff #### [address] [address] Eosinophils/100 WBC (Bld) 0.4 % Normal 0.0-5.4 [facility] Comment on above: Performed By: #### . Automated Diff #### [address] [address] Lymph Absolute 1.3 x10*3/mcL Normal 1.0-4.8 [facility] Comment on above: Performed By: #### . Automated Diff #### [address] [address] Lymphocytes/100 WBC (Bld) 22.8 % Low 27.2-40.8 [facility] Comment on above: Performed By: #### . Automated Diff #### [address] [address] [place] Absolute 0.3 x10*3/mcL Normal 0.1-1.1 [facility] Comment on above: Performed By: #### . Automated Diff #### [address] [address] Monocytes/100 WBC (Bld) 5.2 % Normal 3.7-11.9 [facility] Comment on above: Performed By: #### . Automated Diff #### [address] [address] Neutro Absolute 4.0 x10*3/mcL Normal 1.8-7.7 [facility] Comment on above: Performed By: #### . Automated Diff #### [address] [address] Neutro Auto 71.1 % High 47.2-70.8 [facility] Comment on above: Performed By: #### . Automated Diff #### [address] [address] ED Clinical Summaryon 2023 ED Clinical Summary [address] [address] ED Clinical Summary Person Information Name: Yoana Bullock [facility] Age: 67 Years : 1955 Sex: Female PCP: Remigio Simpson MD Marital Status: Phone: Race: White Ethnicity: Not or Language: Samoan Visit Reason: Psychiatric screening exam; psych screen Acuity: 2 Enc Type: Emergency Med Service: Emergency Medicine Arrival: 05/20/2023 13:12:08 Discharge: 05/20/2023 17:38:00 LOS: 000 04:26 Checkin: 05/20/2023 13:12:08 Checkout: 05/20/2023 17:38:00 Dispo Type: Home or Self Care Address: [address] [place] [address] [address] [place] [id number] Provider Notes: Diagnosis: 1:Encounter for medical screening [...] range between ( 27.2 and 40.8 ) [place] Auto: 5.2 % -- Normal range between [...] range between ( 36.0 and 46.0 ) [place] Absolute: 0.3 x10 MCH: 30.1 pg -- [...] Anuj Gilbert MD ED Provider 05/20/2023 13:39:39 Mary ROGERS, Sherri Wiggins ED Provider 05/20/2023 15:28:08 Follow up: With: Address: When: [facility] With: Address: When: Remigio Simpson [address] [place] [phone] Business (1) Within 1 week Discharge Orders: Discharge Patient 05/20/23 17:30:00 EST, Discharge to Home, Self Patient Education Information: Anxiety Reaction [facility] Poison Help line: . [facility] Hotline: [place] Tobacco Quit Line: [facility] ([place], [place]) [address]: [phone] [place], [place]) [address]: (more content not included)... Normal [facility] ED Note-Nursingon 05-20-2023 ED Note-Nursing Patients reports patient had covid 04/21/23 and most of her symptoms are stemming from that; increased memory loss, confusion, weight loss, panic attacks. Patient did take Paxlovid. Patient was seen at [facility] on Wednesday and taken off Xanax as they felt her hallucinations could be from that, and they prescribed hydroxizine. 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 Patient denies SI and HI but is frustrated that she is having these issues and is not her normal self. Electronically signed by Odalys Munroe 05/20/23 14:33 EST Normal [facility] ED Note-Physicianon 05-20-19 ED Note-Physician Chief Complaint [...] High Lymph Auto 05/20/23 15:21 22.8 Low [place] Auto 05/20/23 15:21 5.2 Eos Auto 05/20/23 15:21 0.4 Basophil Auto 05/20/23 15:21 0.5 Neutro Absolute 05/20/23 15:21 4.0 Lymph Absolute 05/20/23 15:21 1.3 [place] Absolute 05/20/23 15:21 0.3 Eos Absolute 05/20/23 [...] By: Tremayne Butler MD Electronically signed by [place] Sherri ROGERS 05/25/23 20:00 EST Normal [facility] ED Note-Physician Chief Complaint pt was sent [...] obtain a CT head and have social work associate speak with the patient she was sent in by her therapist that she describes it Sign out to Dr. Hernandez at the end of my shift for disposition and social work associate recommendation Assessment/Plan Psychiatric screening exam (Complaint of) [...] Results Electronically signed by Anuj Gilbert MD / (more content not included)... Normal [facility] Ethanolon 05-20-2023 Ethanol, Plasma <10 Normal <=9 [facility] Comment on above: Result Comment: To c onvert mg/dL to g/dL, divide result by 1,000. Legal limit of intoxication is 80 mg/dL (0.08 g/dL). Performed By: #### A LC #### [address] [address] UDS Compon 05-20-2023 Creatinine [Mass/Vol] 100.2 mg/dL Normal [facility] Comment on above: Performed By: #### C [id number] #### [address] [address] Ur Amph Scrn Negative Normal NEG = <1000 [facility] Comment on above: Performed By: #### C [id number] #### [address] [address] Ur Gabriela Scrn Negative Normal NEG = <200 [facility] Comment on above: Performed By: #### C [id number] #### [address] [address] Ur Benzodia Scrn Negative Normal NEG = <200 [facility] Comment on above: Performed By: #### C [id number] #### [address] [address] Ur Cannab Scrn Negative Normal NEG = <50 [facility] Comment on above: Performed By: #### C [id number] #### [address] [address] Ur Cocaine Scrn Negative Normal NEG = <300 [facility] Comment on above: Performed By: #### C [id number] #### [address] [address] Ur Methadone Scn Negative Normal NEG = <300 [facility] Comment on above: Performed By: #### C [id number] #### [address] [address] Ur Opiate Scrn Negative Normal NEG = <300 [facility] Comment on above: Performed By: #### C [id number] #### [address] [address] Ur Oxy Screen Negative Normal NEG = <100 [facility] Comment on above: Performed By: #### C [id number] #### [address] [address] Ur Oxy Scrn Qnt 9 ng/mL Normal <=99 [facility] Comment on above: Performed By: #### C [id number] #### [address] [address] Ur PCP Scrn Negative Normal NEG = <25 [facility] Comment on above: Performed By: #### C [id number] #### [address] [address] UA pH 7.0 Normal 4.5 - 7.8 [facility] Comment on above: Performed By: #### C [id number] #### [address] [address] UA Spec Grav 1.013 Normal 1.003-1.035 [facility] Comment on above: Performed By: #### C [id number] #### [address] [address] Outside Colonoscopyon 2022 Outside Colonoscopy [id number]# 1.00CD:127 [facility] Reminderson 01-28-2023 Reminders - From: Sarah Griffiths LPN To: N - Clinical; Sent: 01/28/2023 13:00:59 EDT Show up: 12/27/2032 07:00:00 EDT Subject: colonoscopy recall Due Date/Time: 01/27/2033 07:00:00 EDT Reminder/Recall Patient due for screening colonoscopy 01/27/2033. [facility] Consent for Procedure/Surger yon 01-12-2023 Consent for Procedure/Surgery [id number] #1.00CD:127 [facility] Ambulatory Visit Summaryon 0 01-08-2023 Ambulatory [...] longer receiving treatment for. Carpal tunnel Normal [facility] RAD - CT Reporton 01-07-2023 RAD - CT Report [id number] #1.00CD:127 Normal [facility] Physician Referralon 023 Physician Referral [id number] #1.00CD:127 Normal [facility] CBC AUTO DIFFon 09-10-2022 BASO # 0.0 103/ul Normal 0.0-0.1 [facility] Comment on above: Performed By: #### C BC #### [facility] [address] [place] [address] Dr. Jess Marie Basophils/100 WBC (Bld) 0.4 % Normal 0.2-2.0 [facility] Comment on above: Performed By: #### C BC #### [facility] [address] [place] [address] Dr. Jess Marie EO # 0.0 103/ul Normal 0.0-0.7 [facility] Comment on above: Performed By: #### C BC #### [facility] [address] [place] [address] Dr. Jess Marie Eosinophils/100 WBC (Bld) 0.4 % Critically low 0.9-7.0 [facility] Comment on above: Performed By: #### C BC #### [facility] [address] [place] [address] Dr. Jess Marie Erythrocyte distribution width (RBC) [Ratio] 12.5 % Normal 11.0-15.0 [facility] Comment on above: Performed By: #### C BC #### [facility] [address] [place] [address] Dr. Jess Marie Hematocrit (Bld) [Volume fraction] 43.1 % Normal 36.0-48.0 [facility] Comment on above: Performed By: #### C BC #### [facility] [address] [place] [address] Dr. Jess Marie Hemoglobin (Bld) [Mass/Vol] 14.0 g/dL Normal 12.0-16.0 [facility] Comment on above: Performed By: #### C BC #### [facility] [address] [place] [address] Dr. Jess Marie IG # 0.01 10e3/ul Normal 0.00-0.03 [facility] Comment on above: Performed By: #### C BC #### [facility] [address] [place] [address] Dr. Jess Marie IG % 0.2 % Normal 0.0-0.5 [facility] Comment on above: Performed By: #### C BC #### [facility] [address] [place] [address] Dr. Jess Marie LYMPH # 1.4 103/ul Normal 1.2-3.8 [facility] Comment on above: Performed By: #### C BC #### [facility] [address] [place] [address] Dr. Jess Marie Lymphocytes/100 WBC (Bld) 26.8 % Normal 20.5-60.0 [facility] Comment on above: Performed By: #### C BC #### [facility] [address] [place] [address] Dr. Jess Marie MANUAL DIFF REQ NO Normal [facility] Comment on above: Performed By: #### C BC #### [facility] [address] [place] [address] Dr. Jess Marie MCH (RBC) [Entitic mass] 29.7 pg Normal 26.7-34.0 [facility] Comment on above: Performed By: #### C BC #### [facility] [address] [place] [address] Dr. Jess Marie MCHC (RBC) [Mass/Vol] 32.5 g/dL Normal 29.9-35.2 [facility] Comment on above: Performed By: #### C BC #### [facility] [address] [place] [address] Dr. Jess Marie MCV (RBC) [Entitic vol] 91.3 fL Normal 81.0-99.0 [facility] Comment on above: Performed By: #### C BC #### [facility] [address] [place] [address] Dr. Jess Marie MONO # 0.3 103/ul Normal 0.3-0.8 [facility] Comment on above: Performed By: #### C BC #### [facility] [address] [place] [address] Dr. Jess Marie Monocytes/100 WBC (Bld) 5.2 % Normal 1.7-12.0 [facility] Comment on above: Performed By: #### C BC #### [facility] [address] [place] [address] Dr. Jess Marie NEUT # 3.5 103/ul Normal 1.4-6.5 [facility] Comment on above: Performed By: #### C BC #### [facility] [address] [place] [address] Dr. Jess Marie Neutrophils/100 WBC (Bld) 67.0 % Normal 43.0-75.0 [facility] Comment on above: Performed By: #### C BC #### [facility] [address] [place] [address] Dr. Jess Marie Platelet mean volume (Bld) [Entitic vol] 9.7 fL Normal 9.5-13.5 [facility] Comment on above: Performed By: #### C BC #### [facility] [address] [place] [address] Dr. Jess Marie PLT 230 103/ul Normal 150-450 [facility] Comment on above: Performed By: #### C BC #### [facility] [address] [place] [address] Dr. Jess Marie RBC 4.72 106/ul Normal 4.20-5.40 [facility] Comment on above: Performed By: #### C BC #### [facility] [address] [address] [address] Jess Marie WBC 5.2 103/ul Normal 4.0-11.0 [facility] Comment on above: Performed By: #### C BC #### [facility] [address] [place] [address] Dr. Jess Marie GLYCOHEMOGLOBIN A1Con 2022 ADA RECOMMENDATION SEE BELOW Normal [facility] Comment on above: Result Comment: ADA RECOMMENDED LIMIT 4.0 - 6.0 ADA THERAPEUTIC TARGET < 7.0 ACTION SUGGESTED > 7.0 Performed By: #### A 1C #### [facility] [address] [place] [address] Dr. Jess Marie Glucose [Mass/Vol] 123 mg/dL Normal [facility] Comment on above: Performed By: #### A 1C #### [facility] [address] [place] [address] Dr. Jess Marie HbA1c (Bld) [Mass fraction] 5.9 % Normal 4.5-6.2 [facility] Comment on above: Performed By: #### A 1C #### [facility] [address] [place] [address] Dr. Jess Marie LIPID PROFILEon 09-10-2022 CHOL-HDL RATIO NORM SEE BELOW Normal [facility] Comment on above: Result Comment: 3.3 - 4.4 LOW RISK 4.4 - 7.1 AVERAGE RISK 7.1 - 11.0 MODERATE RISK >11.0 HIGH RISK Performed By: #### T SH, LIVER, BMP, LIPID #### [facility] [address] [place] [address] Dr. Jess Marie Cholesterol [Mass/Vol] 267 mg/dL Critically high <=200 [facility] Comment on above: Performed By: #### T SH, LIVER, BMP, LIPID #### [facility] [address] [place] [address] Dr. Jess Marie Cholesterol in HDL [Mass/Vol] 79 mg/dL Critically high 40-60 [facility] Comment on above: Performed By: #### T SH, LIVER, BMP, LIPID #### [facility] [address] [address] [address] Jess Marie Cholesterol in LDL [Mass/Vol] 172.4 mg/dL Normal [facility] Comment on above: Performed By: #### T SH, LIVER, BMP, LIPID #### [facility] [address] [address] [address] Jess Marie Cholesterol.total/Choles terol in HDL [Mass ratio] 3.4 {ratio} Normal [facility] Comment on above: Performed By: #### T SH, LIVER, BMP, LIPID #### [facility] [address] [address] [address] Jess Marie HDL NORMAL > or = 60 mg/dl - LOW CARDIOVASCULAR RISK <40 mg/dl - HIGH CARDIOVASCULAR RISK Normal [facility] Comment on above: Performed By: #### T SH, LIVER, BMP, LIPID #### [facility] [address] [address] [address] Jess Marie LDL CALC NORMAL SEE BELOW Normal [facility] Comment on above: Result Comment: <100 mg/dl OPTIMAL 100 - 129 mg/dl NEAR OR ABOVE OPTIMAL 130 - 159 mg/dl BORDERLINE HIGH 160 - 189 mg/dl HIGH >190 mg/dl VERY HIGH Performed By: #### T SH, LIVER, BMP, LIPID #### [facility] [address] [address] [address] Jess Marie Triglyceride [Mass/Vol] 78 mg/dL Normal <=150 [facility] Comment on above: Performed By: #### T SH, LIVER, BMP, LIPID #### [facility] [address] [place] [address] Dr. Jess Marie VLDL CALC 15.6 mg/dL Normal [facility] Comment on above: Performed By: #### T SH, LIVER, BMP, LIPID #### [facility] [address] [place] [address] Dr. Jess Marie LIVER PROFILEon 09-10-2022 Albumin [Mass/Vol] 3.9 g/dL Normal 3.4-5.0 [facility] Comment on above: Performed By: #### T SH, LIVER, BMP, LIPID #### [facility] [address] [address] [address] Jess Marie Albumin/Globulin [Mass ratio] 0.9 {ratio} Normal [facility] Comment on above: Performed By: #### T SH, LIVER, BMP, LIPID #### [facility] [address] [address] [address] Jess Marie ALP [Catalytic activity/Vol] 61 U/L Normal 46-116 [facility] Comment on above: Performed By: #### T SH, LIVER, BMP, LIPID #### [facility] [address] [address] [address] Jess Marie ALT [Catalytic activity/Vol] 25 U/L Normal 14-59 [facility] Comment on above: Performed By: #### T SH, LIVER, BMP, LIPID #### [facility] [address] [place] [address] Dr. Jess Marie AST [Catalytic activity/Vol] 27 U/L Normal 15-37 [facility] Comment on above: Performed By: #### T SH, LIVER, BMP, LIPID #### [facility] [address] [place] [address] Dr. Jess Marie BILI, CONJUGATED 0.1 mg/dL Normal 0.0-0.2 [facility] Comment on above: Performed By: #### T SH, LIVER, BMP, LIPID #### [facility] [address] [address] [address] Jess Marie Bilirubin [Mass/Vol] 0.7 mg/dL Normal 0.2-1.0 [facility] Comment on above: Performed By: #### T SH, LIVER, BMP, LIPID #### [facility] [address] [address] [address] Jess Marie Globulin (S) [Mass/Vol] 4.2 g/dL Normal [facility] Comment on above: Performed By: #### T SH, LIVER, BMP, LIPID #### [facility] [address] [address] [address] Jess Marie Protein [Mass/Vol] 8.1 g/dL Normal 6.4-8.2 [facility] Comment on above: Performed By: #### T SH, LIVER, BMP, LIPID #### [facility] [address] [place] [address] Dr. Jess Marie PROF CHEM 8 (BAS METB)on Anion gap [Moles/Vol] 13.1 mmol/L Normal [facility] Comment on above: Performed By: #### T SH, LIVER, BMP, LIPID #### [facility] [address] [place] [address] Dr. Jess Marie Calcium [Mass/Vol] 9.6 mg/dL Normal 8.5-10.1 [facility] Comment on above: Performed By: #### T SH, LIVER, BMP, LIPID #### [facility] [address] [place] [address] Dr. Jess Marie Chloride [Moles/Vol] 105 mmol/L Normal 98-107 [facility] Comment on above: Performed By: #### T SH, LIVER, BMP, LIPID #### [facility] [address] [place] [address] Dr. Jess Marie CO2 [Moles/Vol] 28.9 mmol/L Normal 21.0-32.0 [facility] Comment on above: Performed By: #### T SH, LIVER, BMP, LIPID #### [facility] [address] [place] [address] Dr. Jess Marie Creatinine [Mass/Vol] 0.62 mg/dL Normal 0.55-1.02 [facility] Comment on above: Performed By: #### T SH, LIVER, BMP, LIPID #### [facility] [address] [place] [address] Dr. Jess Marie EGFR-AF NICARAGUAN >60 Normal >=60 [facility] Comment on above: Performed By: #### T SH, LIVER, BMP, LIPID #### [facility] [address] [place] [address] Dr. Jess Marie EGFR-NON AF NICARAGUAN >60 Normal >=60 [facility] Comment on above: Performed By: #### T SH, LIVER, BMP, LIPID #### [facility] [address] [address] [address] Jess Marie Glucose [Mass/Vol] 112 mg/dL Critically high 74-106 [facility] Comment on above: Performed By: #### T SH, LIVER, BMP, LIPID #### [facility] [address] [address] [address] Jess Marie Potassium [Moles/Vol] 5.0 mmol/L Normal 3.5-5.1 [facility] Comment on above: Result Comment: spec imen slightly hemolyzed Performed By: #### T SH, LIVER, BMP, LIPID #### [facility] [address] [place] [address] Dr. Jess Marie Sodium [Moles/Vol] 142 mmol/L Normal 136-145 [facility] Comment on above: Performed By: #### T SH, LIVER, BMP, LIPID #### [facility] [address] [place] [address] Dr. Jess Marie Urea nitrogen [Mass/Vol] 15.0 mg/dL Normal 7.0-18.0 [facility] Comment on above: Performed By: #### T SH, LIVER, BMP, LIPID #### [facility] [address] [place] [address] Dr. Jess Marie Urea nitrogen/Creatinine [Mass ratio] 24.2 mg/mg Normal [facility] Comment on above: Performed By: #### T SH, LIVER, BMP, LIPID #### [facility] [address] [place] [address] Dr. Jess Marie TSHon 09-10-2022 TSH 1.518 uIU/mL Normal 0.358-3.740 [facility] Comment on above: Performed By: #### T SH, LIVER, BMP, LIPID #### [facility] [address] [place] [address] Dr. Jess Marie US CAROTID ART BILon [...] HERSON REBOLLEDO Date: 2022-09-10 12:26 Normal [facility] XR ABD FLAT_UPon 06-10-2022 XR ABD [...] HERSON REBOLLEDO Date: 2022-06-10 08:38 Normal [facility]-16 SARS-CoV-2 (COVID-19) RNA YAYA+probe Ql (Unsp spec) Not detected Normal NOT DETECTED [facility] Comment on above: Result Comment: This test is not yet approved or cleared by the [place] FDA. When there are no FDA-approved or cleared tests available, and other criteria are met, FDA can make tests available under an emergency access mechanism called an Emergency Use Authorization (EUA). The EUA for this test is supported by the Employment Manager of Health and Human Service's (HHS's) declaration [...] consistent with SARS-CoV-2. Performed By: #### C [facility] #### [facility] [address] [place] [address] Dr. Jess Marie Vital Signs Date Time Vital Sign Value Performing Clinician Blu arango 06-08-2023 07:30-0500 Body temperature 97.6 [degF] [facility] 06-08-2023 07:30-0500 Diastolic blood pressure 62 mm[Hg] [facility] 06-08-2023 07:30-0500 Heart rate 75 /min [facility] 06-08-2023 07:30-0500 Respiratory rate 16 /min [facility] 06-08-2023 07:30-0500 SaO2% (BldA) [Mass fraction] 97 % [facility] 06-08-2023 07:30-0500 Systolic blood pressure 110 mm[Hg] [facility] 06-07-2023 09:00-0500 Body weight 67.5 kg [facility] 06-04-2023 10:17-0500 Body height 166.37 cm [facility] 05-25-2023 14:29-0500 Diastolic blood pressure 80 mm[Hg] DO Robert Zuly Work Phone: [facility] 05-25-2023 14:29-0500 Heart rate 91 /min DO Robert Zuly Work Phone: [facility] 05-25-2023 14:29-0500 Respiratory rate 18 /min DO Robert Zuly Work Phone: [facility] 05-25-2023 14:29-0500 SaO2% (BldA) [Mass fraction] 98 % DO Robert Zuly Work Phone: [facility] 05-25-2023 14:29-0500 Systolic blood pressure 110 mm[Hg] DO Robert Zuly Work Phone: [facility] 05-25-2023 13:06-0500 Body temperature 98.3 [degF] DO Robert Zuly Work Phone: [facility] 05-25-2023 11:38-0500 Body height 165.1 cm DO Robert Zuly Work Phone: [facility] 05-25-2023 11:38-0500 Body weight 68.1 kg DO Robert Zuly Work Phone: [facility] 01-08-2023 13:49-0400 Diastolic blood pressure 94 mm[Hg] Amor HOLLY [facility] 01-08-2023 13:49-0400 Heart rate 80 /min Amor MONTOYAL [facility] 01-08-2023 13:49-0400 Respiratory rate 16 /min Amor NILL [facility] 01-08-2023 13:49-0400 Systolic blood pressure 136 mm[Hg] Amor MONTOYAL [facility] Encounters Encounter Date Encounter Type Care Provider Facility Start: 06-29-2023 Orders Only Remigio Jensen Work Phone: [facility] Comment on above: Recurrent UTI (Prima ry Dx); DALILA (generalized anxiety disorder) (CMS/HCC); Neck pain; MDD (major depressive disorder), recurrent episode, mild (HCC) (CMS/HCC) Start: 06-09-2023 End: 06-09-2023 ambulatory REMIGIO SIMPSON Not Available Start: 05-25-2023 End: 06-08-2023 Evaluation and management of inpatient Sridhar Hoffman Facility:[facility] Start: 05-25-2023 Evaluation and management of inpatient DO Robert Caruso Work Phone: [facility] [place] [address] Work Phone: Start: 05-25-2023 Non-patient / Non-visit [facility] Work Phone: Start: 05-20-2023 End: 05-20-2023 Emergency department patient visit Remigio Simpson MD Facility:[facility] Start: 01-27-2023 End: 01-28-2023 ambulatory Amor R NILL Facility:CD:[id number] Start: 01-08-2023 End: 01-09-2023 ambulatory Amor R NILL Facility:[facility] Start: 01-08-2023 End: 01-08-2023 Patient encounter procedure Amor R NILL [facility] Start: 12-30-2022 ambulatory Amor R JANL Facility :[facility] Start: 09-10-2022 End: 09-11-[address] REMIGIO SIMPSON Facility:[facility] Start: 06-09-2022 End: 06-10-[address] REMIGIO SIMPSON Facility:[facility] Start: 03-12-2022 End: 03-13-[address] REMIGIO SIMPSON Facility:[facility] Start: 11-04-2021 End: 11-04-[address] REMIGIO SIMPSON Facility:[facility] Procedures Date Procedure Procedure Detail Performing Clinician Start: 12-25-2020 Colonoscopy Amor NI LL Start: 06-29-2014 right carpal tunnel release Amor NILL Start: 06-15-2014 left carpal tunnel release Amor NILL Adenoid excision Amor NIL L Dilation and curetta ge of uterus Amor NILL Comment on above: 2004 tonsillectomy 2 Amor NILL Comment on above: 1958 Vaginal hysterectomy Amor NILL Plan of Treatment Date Care Activity Detail Author Start: 09-06-2023 End: 09-06-2023 Patient encounter procedure 09/06/2023 9:00 AM EDT Office Visit [facility] [address] [place] [address] Remigio Simpson MD [address] [place] [address] [facility] Start: 06-08-2023 [facility] Start: 05-26-2023 Administration of prophylactic treatment [facility] Start: 05-25-2023 Hospital admission [facility] Start: 05-25-2023 [facility] Start: 03-09-2021 Pneumococcal Vaccine: 65+ Years (2 - PCV) Pneumococcal Vaccine: 65+ Years (2 - PCV) [facility] Start: 1993 Screening for malignant neoplasm of breast Mammogram [facility] Start: 1953 Medicare Annual Wellness (AWV) Medicare Annual Wellness (AWV) [facility] Start: 1955 Screening for malignant neoplasm of colon [facility] Patient Education Dementia (DC) [facility] Health DC Instructions [facility] Work Phone: Patient referral [facility] Work Phone: Immunizations Immunization Date Immunization Notes Care Provider Fa cility 03-17-2022 SARS-CoV-2 (COVID-19 ) [id number] Amor HOLLY [facility] [place] 10-05-2021 SARS-CoV-2 mRNA (qsmmjitxgfo-sxcw-hekbf se) vaccine Amor MONTOYAL [facility] [place] 03-06-2021 SARS-CoV-2 (COVID-19 ) mRNA BNT-162b2 vax Amor MONTOYAL [facility] [place] 07-30-2020 SARS-CoV-2 (COVID-19 ) mRNA BNT-162b2 vax Amor NILL [facility] Comment on above: Result Comment: 2022: [id number] 07-09-2020 SARS-CoV-2 (COVID-19 ) mRNA BNT-162b2 vax Amor NILL [facility] Comment on above: Result Comment: 2022: [id number] Payers Date Payer Category Payer Self-pay 2018 Medicare 2014 Unknown 1959 Medicare [id number] 1959 Unknown [id number] 1955 Unknown [id number] 2.16.84 [id number] 1955 Unknown [id number] 2.16.84 [id number] 1953 Unknown [id number] 2.16.84 [id number] 1953 Unknown [id number] 2.16.84 [id number] 1953 Unknown [id number] 2.16.8 [id number] 1955 Unknown [id number] 2.16.8 [id number] 1955 Unknown [id number] 2.16.8 [id number] 1955 Unknown [id number] 2.16. [id number] 1955 Unknown [id number] 2.16.84 [id number] Unknown [id number] 2.16.8 [id number] Social History Date Type Detail Facility Start: 01-08-2023 End: 06-09-2023 Tobacco smoking status Never smoked tobacco (finding) [facility] [place] Tobacco smoking status Never [facility] Start: 06-09-2023 Sex Assigned At Female [facility] Start: 1955 Sex Assigned At Female F [facility] Start: 06-09-2023 Tobacco use and exposure Smokeless tobacco non-user [facility] Start: 06-09-2023 Alcohol intake [facility]er [facility] Start: 06-09-2023 History of Social function [facility] Start: 12-31-2022 Education [facility] Start: 1955 Sex Assigned At Not on file [facility] Functional Status Date Assessment Result Facility 01-08-2023 Functional Status N/A [facility] Clinical Notes 03-12-2022 to 06-08-2023 Note Date & Type Note Facility 06-08-2023 Hospital Discharge instructions Additional Instructions Important Contact Information You can call [facility] Inpatient [facility] at [phone] any time day or night if you have emergent questions or question regarding discharge instructions. If at any time you are feeling an increase in your psychiatric symptoms, call your physician or behavioral healthcare provider. If any time you have thoughts of harming yourself or others contact one of the following: Call 98-8 (available 07/12) Crisis Text Line (available 07/12) text 4HOPE to [phone] [facility] Pix[facility] Line (available 8 a.m. Midnight) call [phone] ([phone]) [facility] Work Phone: 01-08-2023 Note Chief Complaint consultation for change [...] Use:. Household tobacco (more content not included)... [facility] Comment on above: Result Comment: Elec tronically Signed By: AVNI ROGERS, Amor Rangel\Date and Time Signed: 01/08/23 15:31 EDT 03-12-2022 Note PROCEDURE: XR ELBOW RT MIN 3 VIEWS HISTORY: Pain of right elbow joint since falling one year ago COMPARISON: None. FINDINGS: BONES:No fracture, acute abnormality, or significant arthropathy. SOFT TISSUES:No visible soft tissue swelling. EFFUSION:None visible. OTHER: Negative. IMPRESSION: 1. Normal examination. Electronically authenticated by: HERSON REBOLLEDO Date: 2022-03-12 18:14 [facility] Evaluation + Plan note No data available for this section [facility] [place] Evaluation note No assessment inform ation available [facility] Work Phone: Evaluation note Diagnosis Onset Date Anxiety acute Confusion acute Depression acute Major neurocognitive disorder acute Suicidal ideation acute [facility] Work Phone: Evaluation note* Diagnosis Recurrent UTI- Primary Urinary tract infection, site not specified DALILA (generalized anxiety disorder) (CMS/HCC) Generalized anxiety disorder Neck pain Cervicalgia MDD (major depressive disorder), recurrent episode, mild (HCC) (CMS/HCC) documented in this encounter [facility] Author Sridhar Hoffman [facility] May 26, 2023 12:28pm Note Date/Time May 26, 2023 1 2:28pm [facility] [address] [place] [address] Psychiatry H&P Signed Patient: Yoana Bullock MR#: [id number] : 1955 Acct:[id number] Age/Sex: 67 / F Adm Date: 4 Loc: Room: [address] [place] [address] Type: ADM IN Attending Dr: Sridhar Hoffman [...] denied current suicidality Insight: fair Judgment: fair [facility] Medical History (Updated 05/26/23 @ 12:28 by Sridhar Hoffman MD) Panic disorder Surgical History H/O: hysterectomy Family History (Updated 05/25/23 @ 12:52 by Veronica Jones, JOSÉ ANTONIO) Other No significant family history Social History [...] signed by Sridhar Hoffman MD> 05/26/23 1228 [facility] Work Phone: Hospital Discharge instructions No data available for this section [facility] [place] Progress note No data available for this section [facility] [place] Reason for referral (narrative)* Consultation (Routine) - Pending Review Specialty Diagnoses / Procedures Referred By Linda t Referred To Contact Urology Diagnoses Recurrent UTI Procedures VA OFFICE/OUTPATIENT NEW HIGH MDM 60 MINUTES Remigio Simpson MD [address] [place] [address] Amor Arcos MD [address] [facility] [place] [address] [place] [address] Referral ID Status Reason Start Date Expiration Date Visits Requested Visits Authorized [id number] Pending Review Specialty Services Required 06/29/2023 12/26/2023 1 1 [facility] Summary Purpose Family History Relationship Condition Age at Onset Recorded Date/T dari Not Specified No pertinent family history Unknown Advance Directives Advance Directive Response Recorded Date/ Time Advance Directives No May 25, 2023 12:38pm Chief Complaint and Reason for Visit Chief Complaint mental eval Chief Complaint mental eval Reason for Visit Anxiety Confusion Depression Major neurocognitive disorder Suicidal ideation Additional Source Comments INFORMATION SOURCE (unrecogn ized section and content) DATE CREATED AUTHOR 09/17/2022 [facility] [place] [facility] DATE CREATED AUTHOR AUTHOR'S ORGANIZ ATION 02/17/2023 [facility] DATE CREATED AUTHOR AUTHOR'S ORGANIZ ATION 05/26/2023 [facility] DATE CREATED AUTHOR AUTHOR'S ORGANIZ ATION 06/09/2023 [facility] DATE CREATED AUTHOR AUTHOR'S ORGANIZ ATION 06/11/2023 [facility] d[facility] Specialists EPIC Patient Care team informatio [...] Attending Provider Active Start: May 25, 2023 [employer] Relationship Specialty Start Date End Date Remigio Simpson MD PCP - General Family Medicine 05/17/22 Goals (unrecognized section and content) Goals may [...] BE BASED ON THE PRIMARY CLINICAL RECORDS. [employer] provides no warranty or guarantee of the accuracy or completeness of information in this document.
[2023-06-30 14:32] LABS: Bilirubin Urine NEGATIVE (NEGATIVE); Blood Urine NEGATIVE (NEGATIVE); Clarity Urine CLEAR (CLEAR); Color Urine LT. YELLOW (YELLOW); Glucose Urine UA NEGATIVE (NEGATIVE); Ketones Urine NEGATIVE (NEGATIVE); Leukocyte Esterase Urine TRACE (NEGATIVE); Nitrite Urine NEGATIVE (NEGATIVE); Protein Urine NEGATIVE (NEG/TRACE); Specific Gravity Urine 1.025 (1.005-1.025); Urobilinogen Urine 0.2 EU/dL (0.2-1.0)
[2023-06-30 14:45] LABS: Urine Microscopic Indicated YES
[2023-06-30 14:46] LABS: Bacteria Urine NONE SEEN #/HPF (NONE SEEN); Mucus Urine NONE SEEN (NONE SEEN); RBC Urine NONE SEEN #/HPF (0-2); Squamous Epithelial Cell Urine FEW #/LPF (NONE/RARE); WBC Urine 0-2 #/HPF (NONE SEEN)
[2023-06-30 14:47] LABS: Urine Culture Indicated ALREADY ORDERED
== END 2023-06-30 13:24 | disposition home or self-care (01) ==
LOC: LAB 13:23
PROVIDERS: PCP Family Medicine; Visit Provider Family Medicine
DX: R30.0 Dysuria (principal)
CPT/HCPCS: 81001; 87086

== ENCOUNTER 2023-07-16 13:24 | Outpatient (OUT) | payer MEDICARE, OTHER, SELFPAY ==
[2023-07-16 14:30] LABS: Bilirubin Urine NEGATIVE (NEGATIVE); Blood Urine TRACE-I (NEGATIVE); Clarity Urine CLEAR (CLEAR); Color Urine YELLOW (YELLOW); Glucose Urine UA NEGATIVE (NEGATIVE); Ketones Urine TRACE mg/dL (NEGATIVE); Leukocyte Esterase Urine NEGATIVE (NEGATIVE); Nitrite Urine NEGATIVE (NEGATIVE); Protein Urine NEGATIVE (NEG/TRACE); Specific Gravity Urine 1.025 (1.005-1.025); Urine Microscopic Indicated YES; Urobilinogen Urine 0.2 EU/dL (0.2-1.0); pH Urine 5.5 (5.0-9.0)
[2023-07-16 14:46] LABS: Bacteria Urine NONE SEEN #/HPF (NONE SEEN); Calcium Oxalate Crystals Urine RARE; Crystals Seen? Seen #/HPF (None Seen); Mucus Urine NONE SEEN (NONE SEEN); RBC Urine 0-2 #/HPF (0-2); Squamous Epithelial Cell Urine FEW #/LPF (NONE/RARE); WBC Urine 0-2 #/HPF (NONE SEEN)
[2023-07-16 14:47] LABS: Cast Seen? NONE SEEN #/LPF (NONE SEEN); Urine Culture Indicated ALREADY ORDERED
== END 2023-07-16 13:25 | disposition home or self-care (01) ==
LOC: LAB 13:24
PROVIDERS: PCP Family Medicine; Visit Provider Family Medicine
DX: R30.0 Dysuria (principal)
CPT/HCPCS: 81001; 87086

== ENCOUNTER 2023-07-17 10:49 | Emergency (ER) | payer MEDICARE, OTHER, SELFPAY ==
[2023-07-17] VITALS (23 sets, daily range): BP systolic 81–139; BP diastolic 42–80; PULSE 68–94; RESP 12–26; TEMP 36.9; O2SAT 95–100; BMI 24.5
--- NOTE | 2023-07-17 11:28 | ECG_ITS ---
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
--- NOTE | 2023-07-17 11:31 | ED_ITS ---
HPI - General Adult General Chief complaint: Dizziness Stated complaint: LIGHTHEADED DEHYDRATED Time Seen by Provider: 07/17/23 11:28 Source: patient and family Mode of arrival: walk-in Limitations: no limitations History of Present Illness HPI narrative: Patient is a 67-year-old female who is presenting to the ER with chief complaint of lightheaded, dizziness, possible dehydration. Patient's and daughter at bedside. Patient was lightheaded and dizzy this morning at home, patient's blood pressure was in the 90s over 50s at home. had talked to Dr. Hoyos, and he recommended patient go to the ER to receive IV fluids. Patient has no headache or neck pain. Patient has intermittent chest tightness, states that could be secondary anxiety which has been an ongoing issue. Patient was just discharged from [facility] several weeks ago, there is no new changes in her medication besides weaning down from her hydroxyzine. Patient has no abdominal pain, nausea or vomiting. No other acute complaints. Patient has had no falls. All systems are negative except as noted/marked. All systems reviewed and otherwise negative. Nurses note and vital signs reviewed and patient is not hypoxic. Positive orthostatics, please see nursing notes. Patient's systolic blood pressure dropped 30 points, diastolic blood pressure dropped 20. General: The patient appears well and in no apparent distress. Patient is resting comfortably on cart. Patient is not toxic, lethargic, or listless Skin: Warm, dry, no pallor noted. There is no rash noted. No petechiae, purpura. Head: Normocephalic, atraumatic Eye: Normal conjunctiva, no drainage, EOMI. PERRL Ears, Nose, Mouth, and Throat: oral mucosa is moist. Nares patent. Mouth without vesicles. Cardiovascular: Regular Rate and Rhythm, no murmur, gallop, rub; no reproducible tenderness to palpation to anterior chest wall. Patient says that she will intermittently have parasternal tenderness to her anterior chest wall, she has no rash Respiratory: Patient is in no distress, no accessory muscle use, lungs are clear to auscultation, no wheezing, rales or rhonchi Back: non-tender, no CVA tenderness bilaterally to percussion. No CT LS midline pain GI: no tenderness to palpation, no masses appreciated. No rebound, guarding, or rigidity noted. No distention Musculoskeletal: Patient has full range of motion of all of the extremities, no motor, sensory, or focal neurological deficits Neurological: A&O x4, normal speech Psychiatric: Cooperative Related Data Home Medications Medication Instructions Recorded Confirmed wheat dextrin PO DAILY 01/14/23 hydroxyzine HCl 25 mg tablet 25 mg PO Q8H PRN anxiety 07/17/23 07/17/23 mirtazapine 7.5 mg tablet 7.5 mg PO .QHS 07/17/23 07/17/23 risperidone 0.25 mg tablet 0.25 mg PO .QHS 07/17/23 07/17/23 risperidone 1 mg tablet 1 mg PO QAM 07/17/23 07/17/23 Previous Rx's Medication Instructions Recorded meloxicam 7.5 mg tablet 7.5 mg PO DAILY PRN pain #10 tabs 05/16/23 meloxicam 7.5 mg tablet 7.5 mg PO DAILY #20 tabs 05/23/23 Allergies Allergy/AdvReac Type Severity Reaction Status Date / Time No Known Drug Allergies Allergy Unverified 07/17/23 10:58 [facility] Medical History (Updated 07/17/23 @ 12:31 by Derrick Garces MD) Normal colonoscopy PSVT (paroxysmal supraventricular tachycardia) ?I47.1 - Supraventricular tachycardia (ICD-10) Positive colorectal cancer screening using Cologuard test ?R19.5 - Other fecal abnormalities (ICD-10) Osteopenia ?M85.80 - Other specified disorders of bone density and structure, unspecifie d site (ICD-10) Orthostatic hypotension ?I95.1 - Orthostatic hypotension (ICD-10) GERD (gastroesophageal reflux disease) ?K21.9 - Gastro-esophageal reflux disease without esophagitis (ICD-10) Abdominal pain ?R10.9 - Unspecified abdominal pain (ICD-10) DALILA (generalized anxiety disorder) ?F41.1 - Generalized anxiety disorder (ICD-10) Dyslipidemia ?E78.5 - Hyperlipidemia, unspecified (ICD-10) Chronic constipation ?K59.09 - Other constipation (ICD-10) Change in bowel habits ?R19.4 - Change in bowel habit (ICD-10) Cervical disc disease ?M50.90 - Cervical disc disorder, unspecified, unspecified cervical region (ICD-10) Surgical History (Updated 01/14/23 @ 11:40 by Gabi Kim RN) H/O vaginal hysterectomy ?Z90.710 - Acquired absence of both cervix and uterus (ICD-10) H/O dilation and curettage ?Z98.890 - Other specified postprocedural states (ICD-10) Hx of tonsillectomy ?Z90.89 - Acquired absence of other organs (ICD-10) History of adenoidectomy ?Z90.89 - Acquired absence of other organs (ICD-10) History of carpal tunnel release ?Z98.890 - Other specified postprocedural states (ICD-10) Family History (Updated 01/14/23 @ 11:43 by Gabi Kim RN) Other Alcoholism Cardiac arrhythmia Heart disease Hypertension Multiple myeloma Pancreatic adenocarcinoma Pancreatic cancer Social History (Updated 01/14/23 @ 11:43 by Gabi Kim RN) Within the past year, how often did you have a drink containing alcohol: never Score interpretation: A score less than 3 is consistent with normal alcohol consumption. Smoking status: Never smoker Second hand tobacco smoke exposure: No Non-prescribed substance use: denies use Previous occupational history: [employer] Known occupational exposures/hazards: No Highest level of school completed/degree received: high school graduate Exam Constitutional Vital Signs, click to edit/add: Last Vital Signs Temp 98.4 F 07/17/23 10:54 Pulse 74 07/17/23 13:10 Resp 13 07/17/23 13:10 BP 139/80 07/17/23 13:00 Pulse Ox 100 07/17/23 13:10 O2 Del Method Room Air 07/17/23 10:54 Course Vital Signs Vital signs: Vital Signs Temperature 98.4 F 07/17/23 10:54 Pulse Rate 82 07/17/23 10:54 Respiratory Rate 16 07/17/23 10:54 Blood Pressure 122/73 07/17/23 10:54 Pulse Oximetry 99 07/17/23 10:54 Oxygen Delivery Method Room Air 07/17/23 10:54 Temperature 98.4 F 07/17/23 10:54 Pulse Rate 74 07/17/23 13:10 Respiratory Rate 13 07/17/23 13:10 Blood Pressure 139/80 07/17/23 13:00 Pulse Oximetry 100 07/17/23 13:10 Oxygen Delivery Method Room Air 07/17/23 10:54 Medical Decision Making [facility] Narrative Medical decision making narrative: Patient was positive with orthostatics. Patient's systolic dropped 30 points, diastolic dropped 20 points. Patient is given 2 L of IV fluid, 1 bag normal saline, 1 bag of lactated Ringer's. Patient's urine testing yesterday showed mild ketones, elevated specific gravity, no other signs of acute infection. EKG and lab work shows no other significant changes. 1340 Patient feels much better after 2 L of fluid. Education done at bedside. Patient will follow-up with Dr. Hoyos. No questions at discharge Lab Data Labs: Lab Results 07/17/23 Range/Units 11:47 WBC 6.5 (4.0-11.0) 10^3/uL RBC 3.96 L (4.20-5.40) 10^6/uL Hgb 12.0 (12.0-16.0) g/dL Hct 35.6 L (36.0-48.0) % MCV 89.9 (81.0-99.0) fL MCH 30.3 (26.7-34.0) pg MCHC 33.7 (29.9-35.2) g/dL RDW 12.4 (11.0-15.0) % Plt Count 220 (150-450) 10^3/uL MPV 9.2 L (9.5-13.5) fL Neut % (Auto) 80.2 H (43.0-75.0) % Lymph % (Auto) 12.7 L (20.5-60.0) % [place] % (Auto) 5.8 (1.7-12.0) % Eos % (Auto) 0.5 L (0.9-7.0) % Baso % (Auto) 0.6 (0.2-2.0) % Neut # (Auto) 5.2 (1.4-6.5) 10^3/uL Lymph # (Auto) 0.8 L (1.2-3.8) 10^3/uL [place] # (Auto) 0.4 (0.3-0.8) 10^3/uL Eos # (Auto) 0.0 (0.0-0.7) 10^3/uL Baso # (Auto) 0.0 (0.0-0.1) 10^3/uL Abs Immat Gran (auto) 0.01 (0.00-0.03) 10^3/uL Imm/Tot Granulo (auto) 0.2 (0.0-0.5) % Sodium 142 (136-145) mmol/L Potassium 4.2 (3.5-5.1) mmol/L Chloride 105 (98-107) mmol/L Carbon Dioxide 30.4 (21.0-32.0) mmol/L Anion Gap 10.8 BUN 17.0 (7.0-18.0) mg/dL Creatinine 0.77 (0.55-1.02) mg/dL Est GFR ( Amer) >60 (>=60) Est GFR (Non-Af Amer) >60 (>=60) BUN/Creatinine Ratio 22.1 Glucose 106 (74-106) mg/dL Calcium 9.0 (8.5-10.1) mg/dL Magnesium 2.1 (1.8-2.4) mg/dL Troponin I High Sens <4.0 L (4.0-51.3) pg/mL ECG Data Attestation: I personally reviewed and interpreted this ECG as follows: Discharge Plan Discharge Chief Complaint: Dizziness Clinical Impression: Orthostatic hypotension, Dehydration Patient Disposition: Home, Self-Care Time of Disposition Decision: 13:40 Condition: Fair Prescriptions / Home Meds: No Action wheat dextrin [Benefiber Healthy Shape] PO DAILY meloxicam 7.5 mg tablet 7.5 mg PO DAILY PRN (Reason: pain ) Qty: 10 0RF meloxicam 7.5 mg tablet 7.5 mg PO DAILY Qty: 20 0RF mirtazapine 7.5 mg tablet 7.5 mg PO .QHS risperidone 1 mg tablet 1 mg PO QAM risperidone 0.25 mg tablet 0.25 mg PO .QHS hydroxyzine HCl 25 mg tablet 25 mg PO Q8H PRN (Reason: anxiety) Instructions: Dehydration (ED), Hypotension (ED) Additional Instructions: Increase fluids at home, Gatorade, Powerade, water. Referrals: Remigio Hoyos MD [Primary Care Provider] - 1 week Stand Alone Forms: Portal Instructions
[2023-07-17] MEDS: 0.9 % SODIUM CHLORIDE 1,000 ML 999 ML IV (11:37)
[2023-07-17 11:58] LABS: Basophils Percent Auto 0.6 % (0.2-2.0); Eosinophils Percent Auto 0.5 % (0.9-7.0); Hematocrit 35.6 % (36.0-48.0); Immature Granulocytes Abs Auto 0.01 10^3/uL (0.00-0.03); Immature Granulocytes Pct Auto 0.2 % (0.0-0.5); Lymphocytes Absolute Auto 0.8 10^3/uL (1.2-3.8); Lymphocytes Percent Auto 12.7 % (20.5-60.0); Mean Corpuscular HGB Conc 33.7 g/dL (29.9-35.2); Mean Corpuscular Hemoglobin 30.3 pg (26.7-34.0); Mean Corpuscular Volume 89.9 fL (81.0-99.0); Mean Platelet Volume 9.2 fL (9.5-13.5); Monocytes Absolute Auto 0.4 10^3/uL (0.3-0.8); Monocytes Percent Auto 5.8 % (1.7-12.0); Neutrophils Absolute Auto 5.2 10^3/uL (1.4-6.5); Neutrophils Percent Auto 80.2 % (43.0-75.0); Platelet Count 220 10^3/uL (150-450); Red Blood Count 3.96 10^6/uL (4.20-5.40); Red Cell Distribution Width 12.4 % (11.0-15.0); White Blood Count 6.5 10^3/uL (4.0-11.0)
[2023-07-17 12:18] LABS: Anion Gap 10.8; BUN Creatinine Ratio 22.1; Carbon Dioxide 30.4 mmol/L (21.0-32.0); Chloride 105 mmol/L (98-107); Estimated GFR (African America >60 (>=60); Estimated GFR (Non-African Ame >60 (>=60); Glucose 106 mg/dL (74-106); Magnesium 2.1 mg/dL (1.8-2.4); Potassium 4.2 mmol/L (3.5-5.1); Sodium 142 mmol/L (136-145); Troponin I High Sensitivity <4.0 pg/mL (4.0-51.3)
[2023-07-17] MEDS: LACTATED RINGER'S SOLUTION 1,000 ML 1000 ML IV (12:33)
== END 2023-07-17 13:52 | disposition home or self-care (01) ==
PROVIDERS: Emergency Provider Emergency Medicine; PCP Family Medicine
DX: I95.1 Orthostatic hypotension (principal); E86.0 Dehydration; Z79.899 Other long term (current) drug therapy; M85.80 Other specified disorders of bone density and structure, unspecified site; K21.9 Gastro-esophageal reflux disease without esophagitis; F41.1 Generalized anxiety disorder; E78.5 Hyperlipidemia, unspecified; K59.09 Other constipation; M50.90 Cervical disc disorder, unspecified, unspecified cervical region; Z90.710 Acquired absence of both cervix and uterus; Z98.890 Other specified postprocedural states; Z90.89 Acquired absence of other organs
CPT/HCPCS: 36415; 80048; 83735; 84484; 85025; 93005; 96360; 99284

== ENCOUNTER 2023-08-09 08:52 | Outpatient (OUT) | payer MEDICARE, OTHER, SELFPAY ==
--- OUTSIDE RECORDS SUMMARY | 2023-08-09 09:13 | XMS_ITS | CCD ---
Author Organization [facility] Care Team Providers Care Drier Transfer Car Operator Name Role Phone CALVIN, DR REMIGIO Richardson Attending Unavailable NADERER, DR [...] ROGERS Primary Care Unavail vinay Gilbert MD, Anuj Orta Attending UnaDO Robert Becker Emergency Provider MD Remigio Simpson Primary Care Provider MD Sridhar Hoffman Admit Provider MD Sridhar Hoffman Attending Provider Remigio Simpson MD Primary Care Provider REMIGIO SIMPSON Attending Unavailable SHAIKH SALCEDO Attending Unavailable HERSON SALAZAR Attending Unavailable Nadereleanna, Remigio Primary Care Unavailable Sridhar Hoffman Admitting Unavailable Sridhar Hoffman Attending Unavailable Lionel Still Admitting Unavailab Lionel Saini Attending Unavailab Remigio Douglas Primary Care Unavailable Medications Current Medications Medication Drug Class(es) Dates Sig (Normalized) Sig (Original) hydrOXYzine hydrochloride 25 mg oral tablet (3 sources) Antihistamine Start: 05-25-2023 take 1 tablet by mouth four times daily as needed for anxiety hydrOXYzine HCl (Atarax) 25 MG tablet Indications: DALILA (generalized anxiety disorder) (CMS/HCC) TAKE 1 TABLET (25 MG) BY MOUTH 4 (FOUR) TIMES A DAY NEEDED FOR ANXIETY 360 tablet 2 05/25/2023 Active meloxicam 7.5 mg oral tablet (6 sources) Nonsteroidal Anti-inflammatory Drug Start: 06-22-2023 End: 06-29-2023 take 1 tablet by mouth once daily as needed for pain meloxicam (Mobic) 7.5 MG tablet Indications: Neck pain Take 1 tablet (7.5 mg) by mouth Daily as needed for mild pain or moderate pain 90 tablet 3 06/29/2023 Active Start: 05-25-2023 take 7.5 mg by mouth once nimo y Meloxicam Active 7.5 MG PO Daily May 25, 2023 12:00am mirtazapine 7.5 mg oral tablet (5 sources) Start: 06-22-2023 End: 06-29-2023 take 1 tablet by mouth at bedtime mirtazapine (Remeron) 7.5 MG tablet Indications: MDD (major depressive disorder), recurrent episode, mild (HCC) (CMS/HCC) Take 1 tablet (7.5 mg) by mouth at bedtime 90 tablet 3 06/29/2023 Active Start: 06-08-2023 take 7.5 mg by mouth once daily at bedtime Mirtazapine Active 7.5 MG PO Daily at bedtime June 08, 2023 12:00am ondansetron 4 mg disintegrating oral tablet (3 sources) Serotonin-3 Receptor Antagonist Start: 06-22-2023 take 1 tablet by mouth every six hours as needed for nausea and vomiting and nausea and nausea ondansetron ODT (Zofran-ODT) 4 MG disintegrating tablet Indications: Nausea Take 1 tablet (4 mg) by mouth every 6 (six) hours if needed for nausea or vomiting 30 tablet 3 06/22/2023 Active risperiDONE 0.25 mg oral tablet (10 sources) Atypical Antipsychotic Start: 06-22-2023 End: 06-29-2023 take 1 tablet by mouth in the morning risperiDONE (RisperDAL) 0.25 MG tablet Indications: MDD (major depressive disorder), recurrent episode, mild (HCC) (CMS/HCC) Take 1 tablet (0.25 mg) by mouth in the morning. 90 tablet 3 06/29/2023 Active Start: 06-22-2023 End: 06-29-2023 take 1 tablet by mouth in the morning risperiDONE (RisperDAL) 1 MG tablet Indications: MDD (major depressive disorder), recurrent episode, mild (HCC) (CMS/HCC) Take 1 tablet (1 mg) by mouth in the morning and 1 tablet (1 mg) before bedtime. 90 tablet 3 06/29/2023 Active Start: 06-08-2023 take 0.25 mg by mout [...] Generalized abdominal pain 01-04-2023 Episodic Anxiety disorders (8 sources) Generalized anxiety disorder; Translations: [Anxiety] Onset: 3 01-04-2023 Chronic Cardiac dysrhythmias (4 sources) Paroxysmal supraventricular tachycardia; Translations: [Paroxysmal supraventricular tachycardia] Onset: 2 01-04-2023 Chronic Delirium, dementia, and amnestic and other cognitive disorders (3 sources) Dementia; Translations: [Unspecified dementia without behavioral disturbance] Onset: 4 06-01-2023 Chronic Diabetes mellitus without complication (5 sources) Impaired fasting glucose; Translations: [Impaired fasting glycemia] Onset: 3 Episodic Disorders of lipid metabolism (5 sources) Hyperlipidemia, unspecified; Translations: [Dyslipidemia] Onset: 3 01-04-2023 Chronic Esophageal disorders (1 source) Gastroesophageal reflux disease 01-04-2023 Chronic Comment on above: diet controlled Genitourinary symptoms and ill-defined conditions (1 source) Dysuria; Translations: [Dysuria] 06-30-2023 Episodic Malaise and fatigue (4 sources) Other fatigue; Translations: [Asthenia] Onset: 3 06-09-2023 Episodic Mood disorders (6 sources) Depressive disorder; Translations: [Depression] Onset: 4 05-25-2023 Chronic Mood disorders (1 source) Mood disorders; Translations: [Depression, unspecified] Onset: 4 Other aftercare (1 source) Other halfway (current) drug therapy; Translations: [OTH [facility] CURRENT DRUG THERAPY] Onset: 3 Episodic Other aftercare (3 sources) Patient encounter status; Translations: [Other halfway (current) drug therapy] Onset: 3 05-11-2023 Episodic Other bone disease and musculoskeletal deformities (1 source) Osteopenia 01-04-2023 Episodic Other circulatory disease (4 sources) Orthostatic hypotension; Translations: [Orthostatic hypotension] Onset: 4 01-04-2023 Episodic Other connective tissue disease (3 sources) Bursitis of olecranon of right elbow; Translations: [Olecranon bursitis, right elbow] Onset: 4 05-28-2023 Episodic Other gastrointestinal disorders (5 sources) Other constipation; Translations: [OTHER CONSTIPATION] Onset: 3 Episodic Other gastrointestinal disorders (2 sources) Altered bowel function; Translations: [Change in bowel habit] Onset: 3 Episodic Other gastrointestinal disorders (4 sources) Chronic constipation; Translations: [Other constipation] Onset: 4 01-04-2023 Episodic Other hereditary and degenerative nervous system conditions (3 sources) Mild cognitive disorder ; Translations: [Mild cognitive impairment, so stated] Onset: 4 06-09-2023 Chronic Other nervous system disorders (4 sources) Carpal tunnel syndrome; Translations: [Carpal tunnel [...] Spondylosis; intervertebral disc disorders; other back problems (4 sources) Cervical disc disorder; Translations: [Degeneration of cervical intervertebral disc] Onset: 4 01-04-2023 Chronic Suicide and intentional self-inflicted injury (2 sources) Suicidal thoughts; Translations: [Suicidal ideations] 05-25-2023 Episodic Unclassified (3 sources) CONTACT W/AND (SUSP) EXPOS COVID-19; Translations: [CONTACT W/AND (SUSP) EXPOS COVID-19] Onset: 2 Urinary tract infections (4 sources) Recurrent urinary tract infection; Translations: [Urinary tract infection, site not specified] Onset: 4 06-29-2023 Episodic Past or Other Problems Problem Classification Problem Date Documented Da te Episodic/Chronic Conditions associated with dizziness or vertigo (7 sources) Dizziness and giddiness; Translations: [Benign paroxysmal positional vertigo] Onset: 09-16-2022 12-31-2022 Episodic Other non-traumatic joint disorders (4 sources) Pain in right elbow; Translations: [PAIN IN RIGHT ELBOW] Onset: 03-12-2022 Episodic Spondylosis; intervertebral disc disorders; other back problems (4 sources) Neck pain; Translations: [Cervicalgia] Onset: 12-31-2022 06-29-2023 Episodic Unclassified (1 source) CONTACT W/AND (SUSP) EXPOS COVID-19; Translations: [CONTACT W/AND (SUSP) EXPOS COVID-19] Onset: 11-04-2021 Unclassified (1 source) Entire carpal canal (body structure) 01-04-2023 Comment on above: had left done Results Test Name Value Interpretation Reference Range Facility TB UA (CLEAN/CATCH) MICROSC OPIC IF INDICATEon 06-30-2023 BILIRUBIN URINE Negative NEGATIVE [facility] BLOOD URINE Negative NEGATIVE [facility] Clarity (U) CLEAR CLEAR [facility] Color (U) LT. YELLOW YELLOW [facility] GLUCOSE URINE UA Negative NEGATIVE mg/dL [facility] Interpretation and review of laboratory results Abnormal [facility] Ketones Ql (U) Negative NEGATIVE mg/dL [facility] Leukocyte esterase Test strip Ql (U) TRACE Abnormal NEGATIVE [facility] NITRITE URINE Negative NEGATIVE [facility] pH (U) 5.0 [pH] 5.0 - 9.0 [facility] PROTEIN URINE Negative NEG/TRACE mg/dL [facility] SPECIFIC GRAVITY URINE 1.025 1.005 - 1.025 [facility] URINE MICROSCOPIC INDICATED YES [facility] UROBILINOGEN URINE 0.2 EU/dL 0.2 - 1.0 EU/dL [facility] Average G [id number] 06-04-2023 Glucose [Mass/Vol] 128 mg/dL Normal [facility] Comment on above: Result Comment: PERF ORMED BY: [place] [address] PATHOLOGIST CARE MANAGEMENT ASSOCIATE ELE SPRING M.D. Performed By: #### A [address]C [facility] Narda, CMP #### [facility] [address] [place] [address] HbA1c (Bld) [Mass fraction] 6.1 % High 4.3-5.6 [facility] Comment on above: Result Comment: Incr eased risk for diabetes: 5.7 - 6.4 diabetes: >6.4 glycemic control for adults with diabetes: <7.0 Performed By: #### A [facility] Narda, CMP #### [facility] [address] Comprehensive Metabolic Pane chito 06-04-2023 Albumin [Mass/Vol] 3.3 g/dL Low 3.5-5.7 [facility] Comment on above: Performed By: #### A Treva YEE eA, CMP #### [facility] [address] Albumin/Globulin [Mass ratio] 1.4 {ratio} Normal [facility] Comment on above: Performed By: #### A Treva YEE eA CMP #### [facility] [address] ALP [Catalytic activity/Vol] 39 U/L Normal 34-104 [facility] Comment on above: Performed By: #### A Treva YEE eA CMP #### [facility] [address] ALT [Catalytic activity/Vol] 12 U/L Normal 7-52 [facility] Comment on above: Performed By: #### A Treva YEE eA CMP #### [facility] [address] Anion gap [Moles/Vol] 6.4 mmol/L Normal 6.0-15.0 [facility] Comment on above: Performed By: #### A Treva YEE eA CMP #### [address] AST [Catalytic activity/Vol] 20 U/L Normal 13-39 [facility] Comment on above: Performed By: #### A Treva YEE eA CMP #### [facility] [address] Bilirubin [Mass/Vol] 0.4 mg/dL Normal 0.3-1.0 [facility] Comment on above: Performed By: #### A Treva YEE eA CMP #### [facility] [address] Calcium [Mass/Vol] 9.3 mg/dL Normal 8.6-10.3 [facility] Comment on above: Performed By: #### A Treva YEE eA CMP #### [facility] [address] Chloride [Moles/Vol] 108 mmol/L High 98-107 [facility] Comment on above: Performed By: #### A Treva YEE eA, CMP #### [address] CO2 [Moles/Vol] 30.7 mmol/L Normal 21.0-31.0 [facility] Comment on above: Performed By: #### A Treva YEE eA, CMP #### [address] Creatinine [Mass/Vol] 0.71 mg/dL Normal 0.60-1.20 [facility] Comment on above: Performed By: #### A Treva YEE eA, CMP #### [address] Creatinine Clr Calc Pharmacy 59.72 Normal [facility] Comment on above: Result Comment: PERF ORMED BY: [place] [address] PATHOLOGIST CARE MANAGEMENT ASSOCIATE ELE SPRING M.D. Performed By: #### A Treva YEE eA, CMP #### [address] GFR/1.73 sq M.predicted MDRD (S/P/Bld) [Vol rate/Area] mL/min/{1.73_m2} Normal [facility] Comment on above: Performed By: #### A Treva YEE eA, CMP #### [address] Globulin (S) [Mass/Vol] 2.3 g/dL Normal [facility] Comment on above: Performed By: #### A Treva YEE eA, CMP #### [address] Glucose [Mass/Vol] 101 mg/dL High 70-100 [facility] Comment on above: Result Comment: [place] Glucose Reference Range is dependent on time and content of last meal. Glucose of more than 200 mg/dL in a nonstressed, ambulatory subject supports the diagnosis of Diabetes Mellitus. ADA recommended reference range Performed By: #### A 1C NAKIA Laboy, CMP #### [facility] [address] [place] [id number] [facility] Potassium [Moles/Vol] 4.1 mmol/L Normal 3.5-5.1 [facility] Comment on above: Performed By: #### A 1C WTBrigitte Laboy, CMP #### [facility] [address] Protein [Mass/Vol] 5.6 g/dL Low 6.4-8.9 [facility] Comment on above: Performed By: #### A 1C WTBrigitte Laboy, CMP #### [facility] [address] Sodium [Moles/Vol] 141 mmol/L Normal 136-145 [facility] Comment on above: Performed By: #### A 1C WTBrigitte Laboy, CMP #### [address] Urea nitrogen [Mass/Vol] 22 mg/dL Normal 7-25 [facility] Comment on above: Performed By: #### A 1C WTBrigitte Laboy, CMP #### [address] Urine Cultureon 06-04-2023 Bacteria identified Cx Nom (U) <9,000 colonies/ml mixed bacterial skin contaminants 2 Days PERFORMED BY: [place] [address] PATHOLOGIST CARE MANAGEMENT ASSOCIATE ELE SPRING M.D. [facility] Comment on above: Performed By: #### A 1C WTBrigitte Laboy, CMP #### [place] [id number] [place] A1C with Estimated Average G luon 06-01-2023 Glucose [Mass/Vol] 126 mg/dL Normal [facility] Comment on above: Result Comment: PERF ORMED BY: [place] [address] PATHOLOGIST CARE MANAGEMENT ASSOCIATE ELE SPRING M.D. Performed By: #### A 1C NAKIA Laboy, CMP #### [address] HbA1c (Bld) [Mass fraction] 6.0 % High 4.3-5.6 [facility] Comment on above: Result Comment: Incr eased risk for diabetes: 5.7 - 6.4 diabetes: >6.4 glycemic control for adults with diabetes: <7.0 Performed By: #### A 1C WT Narda, CMP #### [address] Complete Blood Count Auto Di ffon 06-01-2023 Basophils (Bld) [#/Vol] 0.0 10*3/uL Normal 0.0-0.2 [facility] Comment on above: Result Comment: PERF ORMED BY: [place] [address] PATHOLOGIST CARE MANAGEMENT ASSOCIATE ELE SPRING M.D. Performed By: #### C BC, A1C WT Narda, CMP #### [address] Basophils/100 WBC (Bld) 0.5 % Normal . [facility] Comment on above: Performed By: #### C BC, A1C WT Narda, CMP #### [address] Eosinophils (Bld) [#/Vol] 0.1 10*3/uL Normal 0.0-0.45 [facility] Comment on above: Performed By: #### C BC, A1C WTH Narda, CMP #### [address] Eosinophils/100 WBC (Bld) 1.5 % Normal . [facility] Comment on above: Performed By: #### C BC, A1C WT Narda, CMP #### [address] Erythrocyte distribution width (RBC) [Ratio] 12.9 % Normal 11.9-15.3 [facility] Comment on above: Performed By: #### C BC, A1C WTH Narda, CMP #### [address] [place] [address] [place] Hematocrit (Bld) [Volume fraction] 35.4 % Normal 34.0-46.4 [facility] Comment on above: Performed By: #### C ARMANDO, A1C WTH eA, CMP #### [facility] [address] Hemoglobin (Bld) [Mass/Vol] 11.9 g/dL Normal 11.8-15.4 [facility] Comment on above: Performed By: #### C BC, A1C WTH eA, CMP #### [address] Lymphocytes (Bld) [#/Vol] 1.6 10*3/uL Normal 1.00-4.8 [facility] Comment on above: Performed By: #### C ARMANDO, A1C WTH eA, CMP #### [address] Lymphocytes/100 WBC (Bld) 31.4 % Normal . [facility] Comment on above: Performed By: #### C BC, A1C WTH eA, CMP #### [address] MCH (RBC) [Entitic mass] 29.5 pg Normal 24.7-34.3 [facility] Comment on above: Performed By: #### C ARMANDO, A1C WTH eA, CMP #### [address] MCV (RBC) [Entitic vol] 88.1 fL Normal 80-100 [facility] Comment on above: Performed By: #### C BC, A1C WTH eA, CMP #### [facility] [address] Mean Corpuscular HGB Conc 33.5 g/dL Normal 32.0-35.0 [facility] Comment on above: Performed By: #### C BC, A1C WTH eA, CMP #### [facility] [address] [place] [address] [place] Monocytes (Bld) [#/Vol] 0.4 10*3/uL Normal 0.0-0.8 [facility] Comment on above: Performed By: #### C BC, A1C WTH eA, CMP #### [facility] [address] [place] [address] [place] Monocytes/100 WBC (Bld) 8.8 % Normal . [facility] Comment on above: Performed By: #### C BC, A1C WTH eA, CMP #### [facility] [address] Neutrophils (Bld) [#/Vol] 2.9 10*3/uL Normal 1.8-7.7 [facility] Comment on above: Performed By: #### C BC, A1C WTH eA, CMP #### [facility] [address] Neutrophils/100 WBC (Bld) 57.8 % Normal . [facility] Comment on above: Performed By: #### C BC, A1C WTH eA, CMP #### [facility] [address] NRBC% 0.1 /100{WBC} Normal 0-0.5 [facility] Comment on above: Performed By: #### C BC, A1C WTH eA, CMP #### [address] Platelet mean volume (Bld) [Entitic vol] 7.4 fL Normal 6.3-10.7 [facility] Comment on above: Performed By: #### C BC, A1C WTH eA, CMP #### [facility] [address] [place] [address] [place] Platelets (Bld) [#/Vol] 220 10*3/uL Normal 150-450 [facility] Comment on above: Performed By: #### C BC, A1C WTH eA, CMP #### [facility] [address] [place] [address] [place] RBC (Bld) [#/Vol] 4.02 10*6/uL Normal 3.60-5.00 [facility] Comment on above: Performed By: #### C BC, A1C WTH eA, CMP #### [facility] [address] WBC (Bld) [#/Vol] 5.1 10*3/uL Normal 3.8-11.6 [facility] Comment on above: Performed By: #### C BC, A1C WTH Narda, CMP #### [facility] [address] Comprehensive Metabolic Pane chito 06-01-2023 Albumin [Mass/Vol] 3.4 g/dL Low 3.5-5.7 [facility] Comment on above: Performed By: #### A 1C WTBrigitte Laboy, CMP #### [facility] [address] Albumin/Globulin [Mass ratio] 1.5 {ratio} Normal [facility] Comment on above: Performed By: #### A 1C WTBrigitte Laboy, CMP #### [facility] [address] ALP [Catalytic activity/Vol] 37 U/L Normal 34-104 [facility] Comment on above: Performed By: #### A 1C WTBrigitte Laboy, CMP #### [facility] [address] ALT [Catalytic activity/Vol] 13 U/L Normal 7-52 [facility] Comment on above: Performed By: #### A 1C WTBrigitte Laboy, CMP #### [address] Anion gap [Moles/Vol] 8.2 mmol/L Normal 6.0-15.0 [facility] Comment on above: Performed By: #### A 1C WTBrigitte Laboy, CMP #### [facility] [address] AST [Catalytic activity/Vol] 15 U/L Normal 13-39 [facility] Comment on above: Performed By: #### A 1C WTH Narda, CMP #### [facility] [address] Bilirubin [Mass/Vol] 0.3 mg/dL Normal 0.3-1.0 [facility] Comment on above: Performed By: #### A Treva YEE eA, CMP #### [facility] [address] [place] [address] [place] Calcium [Mass/Vol] 9.1 mg/dL Normal 8.6-10.3 [facility] Comment on above: Performed By: #### A Treva YEE eA CMP #### [facility] [address] [place] [address] [place] Chloride [Moles/Vol] 109 mmol/L High 98-107 [facility] Comment on above: Performed By: #### A Treva YEE eA, CMP #### [facility] [address] CO2 [Moles/Vol] 27.8 mmol/L Normal 21.0-31.0 [facility] Comment on above: Performed By: #### A Treva YEE eA CMP #### [facility] [address] Creatinine [Mass/Vol] 0.58 mg/dL Low 0.60-1.20 [facility] Comment on above: Performed By: #### A Treva YEE eA CMP #### [facility] [address] [place] [address] [place] Creatinine Clr Calc Pharmacy 59.72 [facility] Comment on above: Result Comment: PERF ORMED BY: [place] [address] PATHOLOGIST CARE MANAGEMENT ASSOCIATE ELE SPRING M.D. Performed By: #### A Treva YEE eA, CMP #### [facility] [address] [place] [address] [place] GFR/1.73 sq M.predicted MDRD (S/P/Bld) [Vol rate/Area] mL/min/{1.73_m2} [facility] Comment on above: Performed By: #### A Treva YEE eA, CMP #### [facility] [address] Globulin (S) [Mass/Vol] 2.2 g/dL Normal [facility] Comment on above: Performed By: #### A 1C WTH eA, CMP #### [facility] [address] Glucose [Mass/Vol] 94 mg/dL Normal 70-100 [facility] Comment on above: Result Comment: [facility] Glucose Reference Range is dependent on time and content of last meal. Glucose of more than 200 mg/dL in a nonstressed, ambulatory subject supports the diagnosis of Diabetes Mellitus. ADA recommended reference range Performed By: #### A 1C NAKIA Laboy, CMP #### [facility] [address] Potassium [Moles/Vol] 4.0 mmol/L Normal 3.5-5.1 [facility] Comment on above: Performed By: #### A Treva YEE eA CMP #### [address] Protein [Mass/Vol] 5.6 g/dL Low 6.4-8.9 [facility] Comment on above: Performed By: #### A Treva YEE eA CMP #### [address] Sodium [Moles/Vol] 141 mmol/L Normal 136-145 [facility] Comment on above: Performed By: #### A 1C NAKIA Laboy CMP #### [address] Urea nitrogen [Mass/Vol] 18 mg/dL Normal 7-25 [facility] Comment on above: Performed By: #### A Treva YEE eA CMP #### [facility] [address] [place] [address] [place] Dipstick and Microscopicon 0 05-31-2023 Appearance (U) Slightly Cloudy Critically abnormal Clear [facility] Comment on above: Order Comment: Name Collection Type:: Clean-Voided Midstream Performed By: #### A Treva YEE eA, CMP #### [address] Bacteria,Urine None Seen Normal None Seen [facility] Comment on above: Order Comment: Name Collection Type:: Clean-Voided Midstream Performed By: #### A 1C WTH eA, CMP #### [facility] [address] [place] [address] [place] Bilirubin,Urine Negative Normal Negative [facility] Comment on above: Order Comment: Name Collection Type:: Clean-Voided Midstream Performed By: #### A 1C WTH eA, CMP #### [facility] [address] [place] [address] [place] Color (U) Yellow Normal Yellow [facility] Comment on above: Order Comment: Name Collection Type:: Clean-Voided Midstream Performed By: #### A 1C WTH eA, CMP #### [facility] [address] [place] [address] [place] Glucose Ql (U) Normal Normal Normal [facility] Comment on above: Order Comment: Name Collection Type:: Clean-Voided Midstream Performed By: #### A 1C WTH eA, CMP #### [place] [address] [place] Hyaline Casts,Urine 9-19 High 0-8 [facility] Comment on above: Order Comment: Name Collection Type:: Clean-Voided Midstream Result Comment: PERF ORMED BY: [place] [address] PATHOLOGIST CARE MANAGEMENT ASSOCIATE ELE SPRING M.D. Performed By: #### A 1C WTH eA, CMP #### [facility] [address] [place] [address] [place] Ketones Ql (U) Negative Normal Negative [facility] Comment on above: Order Comment: Name Collection Type:: Clean-Voided Midstream Performed By: #### A 1C WTH eA, CMP #### [facility] [address] [place] [address] [place] Leukocyte esterase Test strip Ql (U) 2+ High Negative [facility] Comment on above: Order Comment: Name Collection Type:: Clean-Voided Midstream Performed By: #### A 1C WTH eA, CMP #### [facility] [address] [place] [address] [place] Nitrite,Urine Negative Normal Negative [facility] Comment on above: Order Comment: Name Collection Type:: Clean-Voided Midstream Performed By: #### A 1C WTH eA, CMP #### [address] Occult Blood,Urine Negative Normal Negative [facility] Comment on above: Order Comment: Name Collection Type:: Clean-Voided Midstream Result Comment: PERF ORMED BY: [place] [address] PATHOLOGIST CARE MANAGEMENT ASSOCIATE ELE SPRING M.D. Performed By: #### A 1C WTH eA, CMP #### [address] Othe Crystals,Urine None Seen Normal [facility] Comment on above: Order Comment: Name Collection Type:: Clean-Voided Midstream Performed By: #### A 1C WTH eA, CMP #### [address] pH (U) 6.0 [pH] Normal 5.0-9.0 [facility] Comment on above: Order Comment: Name Collection Type:: Clean-Voided Midstream Performed By: #### A 1C WTH eA, CMP #### [address] Protein,Urine Negative Normal Negative [facility] Comment on above: Order Comment: Name Collection Type:: Clean-Voided Midstream Performed By: #### A 1C WTH eA, CMP #### [facility] [address] [place] [address] [place] RBC,Urine 5-9 High 0-4 [facility] Comment on above: Order Comment: Name Collection Type:: Clean-Voided Midstream Performed By: #### A 1C WTH eA, CMP #### [address] Specificy Sneads,Urine 1.030 Normal 1.001-1.030 [facility] Comment on above: Order Comment: Name Collection Type:: Clean-Voided Midstream Performed By: #### A 1C WTH eA, CMP #### [place] [address] [place] Squamous Epithelial Cell,Urine 1-2 Normal 0-2 [facility] Comment on above: Order Comment: Name Collection Type:: Clean-Voided Midstream Performed By: #### A 1C WTH eA, CMP #### [facility] [address] [place] [address] Uric Acid Crystals,Urine 1+ Normal [facility] Comment on above: Order Comment: Name Collection Type:: Clean-Voided Midstream Performed By: #### A 1C WTH eA, CMP #### [address] Urobilinogen,Urine Normal Normal Normal [facility] Comment on above: Order Comment: Name Collection Type:: Clean-Voided Midstream Performed By: #### A 1C WTH eA, CMP #### [address] WBC,Urine 5-9 High 0-4 [facility] Comment on above: Order Comment: Name Collection Type:: Clean-Voided Midstream Performed By: #### A 1C WTH eA, CMP #### [address] MR head/brain wo conon 05-31 MR head/brain wo con [facility] [place] [address] [place] [address] MRI Report Signed Patient: Yoana Bullock MR#: [id number] [birth year] : 1955 Acct:[id number] Age/Sex: 67 / F ADM Date: 05/25/23 Loc: Room: [address] [place] [address] Type: ADM IN Attending Dr: Sridhar Hoffman [...] Coates Jr., D.OEsteban05/31/2023 1:55 PM Dictation Location: [place] [address] Transcribed By: [facility] 05/31/23 1355 Dictated By: Raymundo Coates Jr, DO 05/31/23 1348 Signed By: 05/31/23 1355 Normal [facility] Urine Cultureon 05-31-2023 Bacteria identified Cx Nom (U) 15,000 colonies/ml mixed bacterial skin contaminants 2 Days PERFORMED BY: [place] [address] PATHOLOGIST CARE MANAGEMENT ASSOCIATE ELE SPRING M.D. [facility] Comment on above: Performed By: #### A 1C ALFREDO Narda, CMP #### [address] Ammoniaon 05-29-2023 Ammonia (P) [Moles/Vol] 21 umol/L Normal 11-35 [facility] Comment on above: Result Comment: PERF ORMED BY: [place] [address] PATHOLOGIST CARE MANAGEMENT ASSOCIATE ELE SPRING M.D. Performed By: #### A 1C ALFREDO Narda, CMP #### [place] [id number] [facility] Vitamin B12on 05-29-2023 Cobalamin (Vitamin B12) [Mass/Vol] 380 pg/mL Normal 180-914 [facility] Comment on above: Result Comment: PERF ORMED BY: [place] [address] PATHOLOGIST CARE MANAGEMENT ASSOCIATE ELE SPRING M.D. Performed By: #### A 1C NAKIA Laboy, CMP #### [facility] [address] [place] [address] Lipid Panelon 01-10-2024 Cholesterol [Mass/Vol] 177 mg/dL Normal 140-200 [facility] Comment on above: Result Comment: Chol less than 200 mg/dl low risk Chol 201-239 mg/dl borderline risk Chol 240 mg/dl and greater high risk Performed By: #### T SH3 wRFLX, [id number], LIPID #### [facility] [address] Cholesterol in HDL [Mass/Vol] 62 mg/dL Normal 23-92 [facility] Comment on above: Result Comment: HDL CHOL ATP-III CLASSIFICATION Cardiovascular Risk HDL > or equal to 60 mg/dL LOW HDL < 40 mg/dL HIGH Performed By: #### T SH3 wRFLX, [id number], LIPID #### [facility] [address] Cholesterol.total/Choles terol in HDL [Mass ratio] 2.9 {ratio} Normal <5.0 [facility] Comment on above: Performed By: #### T SH3 wRFLX, [id number], LIPID #### [facility] [address] LDL Cholesterol,Calculated 95 mg/dL Normal 0-100 [facility] Comment on above: Result Comment: LDL ATP III CLASSIFICATION LDL less than 100 mg/dL Optimal LDL 100-129 mg/dL Near or above optimal LDL 130-159 mg/dL Borderline high LDL 160-189 mg/dL High LDL greater than 189 mg/dL Very high Performed By: #### T SH3 wRFLX, [id number], LIPID #### [facility] [address] [place] [address] [place] Triglyceride w/Reflex 100 mg/dL Normal 0-149 [facility] Comment on above: Result Comment: TRIG ATP III CLASSIFICATION TRIG less than 150 mg/dL Normal TRIG 150-199 mg/dL Borderline high TRIG 200-500 mg/dL High TRIG greater than 500 mg/dL Very high Standard traceable to the Center for Disease Conrtrol and Prevention (CDC) test method. Performed By: #### T SH3 wRFLX, [id number], LIPID #### [facility] [address] [place] [id number] [place] VLDL CHOLESTEROL 20 mg/dL Normal [facility] Comment on above: Performed By: #### T SH3 wRFLX, [id number], LIPID #### [address] Thyroid Stim Hormone w/Rflxo n 05-26-2023 Thyroid Stim Hormone w/Rflx 2.11 u[iU]/mL Normal 0.45-5.33 [facility] Comment on above: Performed By: #### T SH3 wRFLX, [id number], LIPID #### [address] Vitamin D 25 Hydroxy Totalon 05-26-2023 Vitamin D 25 Hydroxy Total 25.4 ng/mL Low 30-100 [facility] Comment on above: Result Comment: HUSAM MIN D STATUS 25(OH)VITAMIN D RANGE (ng/mL) Deficient <20 Insufficient 20 to <30 Sufficient 30 to 100 Reference: Shaq MF,Monica NC, Fabrizio , et al. Evaluation,treatment, and prevention of vitamin D deficiency; an Endocrine Society clinical practice guideline. JCEM. 2010; 96(7):1911-30. PERFORMED BY: [place] [address] PATHOLOGIST CARE MANAGEMENT ASSOCIATE ELE SPRING M.D. Performed By: #### T SH3 wRFLX, [id number], LIPID #### [place] [id number] [facility] Alanine aminotransferase [En zymatic activity/volume] in Serum or PlasmaOrdered By: Robert Caruso on 05-25-2023 ALT [Catalytic activity/Vol] 14 U/L 7-52 [facility] Albumin [Mass/volume] in Ser um or Plasma by Bromocresol green (BCG) dye binding methoOrdered By: Robert Caruso on 05-25-2023 Albumin BCG dye [Mass/Vol] 4.4 g/dL 3.5-5.7 [facility] Alkaline phosphatase [Enzyma tic activity/volume] in Serum or PlasmaOrdered By: Robert Caruso on 05-25-2023 ALP [Catalytic activity/Vol] 48 U/L 34-104 [facility] Amphetamine Screen Ql (U)Ord ered By: Robert Caruso on 05-25-2023 Amphetamines Ql (U) Negative Negative [facility] Aspartate aminotransferase [ Enzymatic activity/volume] in Serum or PlasmaOrdered By: Robert Caruso on 05-25-2023 AST [Catalytic activity/Vol] 21 U/L 13-39 [facility] Barbiturates [Presence] in U rine by Screen methodOrdered By: Robert Caruso on 05-25-2023 Barbiturates Screen Ql (U) Negative Negative [facility] Basophils Auto (Bld) [#/Vol] Ordered By: Robert Caruso on 05-25-2023 Basophils (Bld) [#/Vol] 0.0 10*3/uL 0.0-0.2 [facility] Basophils/100 WBC Auto (Bld) Ordered By: Robert Caruso on 05-25-2023 Basophils/100 WBC (Bld) 0.5 % . [facility] Benzodiazepines Screen Ql (U )Ordered By: Robert Caruso on 05-25-2023 Benzodiazepines Ql (U) Negative Negative [facility] Benzoylecgonine [Presence] i n Urine by Screen methodOrdered By: Robert Caruso on 05-25-2023 Benzoylecgonine Screen Ql (U) Negative Negative [facility] Bilirubin.total [Mass/volume ] in Serum or PlasmaOrdered By: Robert Caruso on 05-25-2023 Bilirubin [Mass/Vol] 0.8 mg/dL 0.3-1.0 [facility] Calcium [Mass/volume] in Ser um or PlasmaOrdered By: Robert Caruso on 05-25-2023 Calcium [Mass/Vol] 10.1 mg/dL 8.6-10.3 [facility] Cannabinoids [Presence] in U rine by Screen methodOrdered By: Robert Caruso on 05-25-2023 Cannabinoids Screen Ql (U) Negative Negative [facility] Comment on above: These are unconfirme d results and should not be used for legal purposes. Drug Cut-Off Concentration: AMPH 1000 ng/mL GABRIELA 200 ng/mL SIVA 200 ng/mL COCM 300 ng/mL OP 300 ng/mL PCP 25 ng/mL THC 20 ng/mL Carbon dioxide, total [Moles /volume] in Serum or PlasmaOrdered By: Robert Caruso on 05-25-2023 CO2 [Moles/Vol] 29.6 mmol/L 21.0-31.0 [facility] Chloride [Moles/volume] in S anupam or PlasmaOrdered By: Robert Caruso on 05-25-2023 Chloride [Moles/Vol] 102 mmol/L 98-107 [facility] Complete Blood Count Auto Di ffon 05-25-2023 Basophils (Bld) [#/Vol] 0.0 10*3/uL Normal 0.0-0.2 [facility] Comment on above: Result Comment: PERF ORMED BY: [place] [address] PATHOLOGIST CARE MANAGEMENT ASSOCIATE ELE SPRING M.D. Performed By: #### A 1C [facility] Narda, CMP #### [address] Basophils/100 WBC (Bld) 0.5 % Normal . [facility] Comment on above: Performed By: #### A [address]C [facility] Narda, CMP #### [place] [address] [place] Eosinophils (Bld) [#/Vol] 0.0 10*3/uL Normal 0.0-0.45 [facility] Comment on above: Performed By: #### A [address]C [facility] Narda, CMP #### [address] Eosinophils/100 WBC (Bld) 0.1 % Normal . [facility] Comment on above: Performed By: #### A [address]C [facility] Narda, CMP #### [address] Erythrocyte distribution width (RBC) [Ratio] 12.9 % Normal 11.9-15.3 [facility] Comment on above: Performed By: #### A [address]C [facility] Narda, CMP #### [address] Hematocrit (Bld) [Volume fraction] 41.6 % Normal 34.0-46.4 [facility] Comment on above: Performed By: #### A Treva YEE eA, CMP #### [address] Hemoglobin (Bld) [Mass/Vol] 14.1 g/dL Normal 11.8-15.4 [facility] Comment on above: Performed By: #### A Treva YEE eA CMP #### [address] Lymphocytes (Bld) [#/Vol] 1.1 10*3/uL Normal 1.00-4.8 [facility] Comment on above: Performed By: #### A Treva YEE eA CMP #### [address] Lymphocytes/100 WBC (Bld) 15.5 % Normal . [facility] Comment on above: Performed By: #### A Treva YEE eA CMP #### [address] MCH (RBC) [Entitic mass] 29.9 pg Normal 24.7-34.3 [facility] Comment on above: Performed By: #### A Treva YEE eA CMP #### [address] MCV (RBC) [Entitic vol] 87.8 fL Normal 80-100 [facility] Comment on above: Performed By: #### A Treva YEE eA CMP #### [address] Mean Corpuscular HGB Conc 34.0 g/dL Normal 32.0-35.0 [facility] Comment on above: Performed By: #### A Treva YEE eA CMP #### [address] Monocytes (Bld) [#/Vol] 0.3 10*3/uL Normal 0.0-0.8 [facility] Comment on above: Performed By: #### A 1C WTH eA, CMP #### [facility] [address] [place] [address] [place] Monocytes/100 WBC (Bld) 17.76 % Normal 0.00-20.00 [facility] Comment on above: Performed By: #### A Treva [facility] Narda, CMP #### [facility] [address] [place] [id number] [place] Monocytes/100 WBC (Bld) 3.9 % Normal . [facility] Comment on above: Performed By: #### A Treva FUENTES Narda, CMP #### [facility] [address] [place] [address] [place] Neutrophils (Bld) [#/Vol] 5.6 10*3/uL Normal 1.8-7.7 [facility] Comment on above: Performed By: #### A Treva FUENTES Narda, CMP #### [facility] [address] [place] [address] [place] Neutrophils/100 WBC (Bld) 80.0 % Normal . [facility] Comment on above: Performed By: #### A Treva [facility] Narda, CMP #### [facility] [address] [place] [address] [place] NRBC% 0.0 /100{WBC} Normal 0-0.5 [facility] Comment on above: Performed By: #### A Treva FUENTES Narda, CMP #### [facility] [address] [place] [address] [place] Platelet mean volume (Bld) [Entitic vol] 7.9 fL Normal 6.3-10.7 [facility] Comment on above: Performed By: #### A Treva [facility] Narda, CMP #### [facility] [address] [place] [id number] [place] Platelets (Bld) [#/Vol] 292 10*3/uL Normal 150-450 [facility] Comment on above: Performed By: #### A Treva FUENTES Narda, CMP #### [facility] [address] [place] [address] [place] RBC (Bld) [#/Vol] 4.74 10*6/uL Normal 3.60-5.00 [facility] Comment on above: Performed By: #### A Treva YEE eA, CMP #### [address] WBC (Bld) [#/Vol] 7.0 10*3/uL Normal 3.8-11.6 [facility] Comment on above: Performed By: #### A Treva YEE eA, CMP #### [address] Comprehensive Metabolic Pane chito 05-25-2023 Albumin [Mass/Vol] 4.4 g/dL Normal 3.5-5.7 [facility] Comment on above: Performed By: #### A Treva YEE eA CMP #### [address] Albumin/Globulin [Mass ratio] 1.5 {ratio} Normal [facility] Comment on above: Performed By: #### A Treva YEE eA CMP #### [address] ALP [Catalytic activity/Vol] 48 U/L Normal 34-104 [facility] Comment on above: Performed By: #### A Treva YEE eA CMP #### [address] ALT [Catalytic activity/Vol] 14 U/L Normal 7-52 [facility] Comment on above: Performed By: #### A Treva YEE eA CMP #### [address] Anion gap [Moles/Vol] 10.1 mmol/L Normal 6.0-15.0 [facility] Comment on above: Performed By: #### A Treva YEE eA, CMP #### [address] AST [Catalytic activity/Vol] 21 U/L Normal 13-39 [facility] Comment on above: Performed By: #### A Treva YEE eA, CMP #### [address] Bilirubin [Mass/Vol] 0.8 mg/dL Normal 0.3-1.0 [facility] Comment on above: Performed By: #### A Treva YEE eA, CMP #### [facility] [address] Calcium [Mass/Vol] 10.1 mg/dL Normal 8.6-10.3 [facility] Comment on above: Performed By: #### A Treva YEE eA, CMP #### [facility] [address] Chloride [Moles/Vol] 102 mmol/L Normal 98-107 [facility] Comment on above: Performed By: #### A Treva YEE eA, CMP #### [facility] [address] CO2 [Moles/Vol] 29.6 mmol/L Normal 21.0-31.0 [facility] Comment on above: Performed By: #### A Treva YEE eA, CMP #### [facility] [address] Creatinine [Mass/Vol] 0.76 mg/dL Normal 0.60-1.20 [facility] Comment on above: Performed By: #### A Treva YEE eA, CMP #### [address] Creatinine Clr Calc Pharmacy 59.72 [facility] Comment on above: Result Comment: PERF ORMED BY: [place] [address] PATHOLOGIST CARE MANAGEMENT ASSOCIATE ELE SPRING M.D. Performed By: #### A 1C NAKIA Laboy, CMP #### [place] [address] [place] GFR/1.73 sq M.predicted MDRD (S/P/Bld) [Vol rate/Area] mL/min/{1.73_m2} Normal [facility] Comment on above: Performed By: #### A Treva YEE eA, CMP #### [facility] [address] Globulin (S) [Mass/Vol] 2.9 g/dL Normal [facility] Comment on above: Performed By: #### A 1C WT Narda, CMP #### [facility] [address] [place] [address] [place] Glucose [Mass/Vol] 120 mg/dL High 70-100 [facility] Comment on above: Result Comment: [place] Glucose Reference Range is dependent on time and content of last meal. Glucose of more than 200 mg/dL in a nonstressed, ambulatory subject supports the diagnosis of Diabetes Mellitus. ADA recommended reference range Performed By: #### A 1C WT Narda, CMP #### [facility] [address] Potassium [Moles/Vol] 3.7 mmol/L Normal 3.5-5.1 [facility] Comment on above: Performed By: #### A 1C WT Narda, CMP #### [facility] [address] [place] [address] [place] Protein [Mass/Vol] 7.3 g/dL Normal 6.4-8.9 [facility] Comment on above: Performed By: #### A 1C WT Narda, CMP #### [facility] [address] [place] [address] [place] Sodium [Moles/Vol] 138 mmol/L Normal 136-145 [facility] Comment on above: Performed By: #### A 1C WT Narda, CMP #### [facility] [address] [place] [id number] [place] Urea nitrogen [Mass/Vol] 12 mg/dL Normal 7-25 [facility] Comment on above: Performed By: #### A 1C WT Narda, CMP #### [facility] [address] [place] [id number] [place] Creatinine [Mass/volume] in Serum or PlasmaOrdered By: Robert Caruso on 05-25-2023 Creatinine [Mass/Vol] 0.76 mg/dL 0.60-1.20 [facility] Drug Screen,Urineon 05-25-19 24 Amphetamine Screen,Urine Negative Normal Negative [facility] Comment on above: Performed By: #### U HCG, URDS #### [facility] [address] [place] [address] [place] Barbiturate Screen,Urine Negative Normal Negative [facility] Comment on above: Performed By: #### U HCG, URDS #### [place] [address] [place] Benzodiazepines Screen,Urine Negative Normal Negative [facility] Comment on above: Performed By: #### U HCG, URDS #### [place] [address] [place] Cannabinoid Screen,Urine Negative Normal Negative [facility] Comment on above: Result Comment: Thes e are unconfirmed results and should not be used for legal purposes. Drug Cut-Off Concentration: AMPH 1000 ng/mL GABRIELA 200 ng/mL SIVA 200 ng/mL COCM 300 ng/mL OP 300 ng/mL PCP 25 ng/mL THC 20 ng/mL PERFORMED BY: [place] [address] PATHOLOGIST CARE MANAGEMENT ASSOCIATE ELE SPRING M.D. Performed By: #### U HCG, URDS #### [place] [address] [place] Cocaine Screen,Urine Negative Normal Negative [facility] Comment on above: Performed By: #### U HCG, URDS #### [place] [address] [place] Opiate Screen,Urine Negative Normal Negative [facility] Comment on above: Performed By: #### U HCG, URDS #### [place] [address] [place] Phencyclidine Screen,Urine Negative Normal Negative [facility] Comment on above: Performed By: #### U HCG, URDS #### [address] ECG 12 lead ECGon 05-25-2023 ECG 12 lead ECG [facility] [place] [address] [place] [address] Electrocardiograph Report Signed Patient: Yoana Bullock MR#: [id number] [birth year] : 1955 Acct:[id number] Age/Sex: 67 / F ADM Date: 05/25/23 Loc: 1S Room: [address] [place] [address] Type: ADM IN Attending Dr: Sridhar Hoffman [...] previous ECGs available Confirmed by Fidel Flood ([id number]) on 05/25/2023 5:09:43 PM Referred By: Electronically Signed By:Fidel Flood Transcribed By: MUS Signed By Fidel Flood MD 05/25/23 1709 Normal [facility] Eosinophils Auto (Bld) [#/Vo l]Ordered By: Robert Caruso on 05-25-2023 Eosinophils (Bld) [#/Vol] 0.0 10*3/uL 0.0-0.45 [facility] Eosinophils/100 WBC Auto (Bl d)Ordered By: Robert Caruso on 05-25-2023 Eosinophils/100 WBC (Bld) 0.1 % . [facility] Erythrocyte distribution wid th Auto (RBC) [Ratio]Ordered By: Robert Caruso on 05-25-2023 Erythrocyte distribution width (RBC) [Ratio] 12.9 % 11.9-15.3 [facility] Ethanol [Mass/volume] in Ser um or PlasmaOrdered By: Robert Caruso on 05-25-2023 Ethanol [Mass/Vol] mg/dL [facility] Ethanol [Mass/Vol] TNP [facility] Comment on above: Test not performed Ethyl Alcohol Profileon Ethanol [Mass/Vol] mg/dL Normal [facility] Comment on above: Performed By: #### A 1C WT eA, CMP #### [facility] [address] [place] [address] Percent Ethanol Not performed Normal [facility] Comment on above: Result Comment: PERF ORMED BY: [place] [address] PATHOLOGIST CARE MANAGEMENT ASSOCIATE ELE SPRING M.D. Performed By: #### A 1C WT eA, CMP #### [facility] [address] [place] [address] Globulin Calc (S) [Mass/Vol] Ordered By: Robert Caruso on 05-25-2023 Globulin (S) [Mass/Vol] 2.9 g/dL [facility] Glucose [Mass/volume] in Ser um or PlasmaOrdered By: Robert Caruso on 05-25-2023 Glucose [Mass/Vol] 120 mg/dL 70-100 [facility] Comment on above: ADA recommended refe rence rangeRandom Glucose Reference Range is dependent on time and content of last meal. Glucose of more than 200 mg/dL in a nonstressed, ambulatory subject supports the diagnosis of Diabetes Mellitus. HCG ( test) IA.justini d Ql (U)Ordered By: Robert Caruso on 05-25-2023 HCG ( test) Ql (U) Negative [facility] HCG,Urineon 05-25-2023 Beta HCG ( test) Ql (U) Negative Normal [facility] Comment on above: Result Comment: PERF ORMED BY: [place] [address] PATHOLOGIST CARE MANAGEMENT ASSOCIATE ELE SPRING M.D. Performed By: #### U HCG, URDS #### [facility] [address] [place] [address] Hematocrit Auto (Bld) [Volum e fraction]Ordered By: Robert Caruso on 05-25-2023 Hematocrit (Bld) [Volume fraction] 41.6 % 34.0-46.4 [facility] Hemoglobin [Mass/volume] in BloodOrdered By: Robert Caruso on 05-25-2023 Hemoglobin (Bld) [Mass/Vol] 14.1 g/dL 11.8-15.4 [facility] Leukocytes [#/volume] correc gage for nucleated erythrocytes in Blood by Automated counOrdered By: Robert Caruso on 05-25-2023 WBC corrected for nucl RBC Auto (Bld) [#/Vol] 7.0 10*3/uL 3.8-11.6 [facility] Lymphocytes Auto (Bld) [#/Vo l]Ordered By: Robert Caurso on 05-25-2023 Lymphocytes (Bld) [#/Vol] 1.1 10*3/uL 1.00-4.8 [facility] Lymphocytes/100 WBC Auto (Bl d)Ordered By: Robert Caruso on 05-25-2023 Lymphocytes/100 WBC (Bld) 15.5 % . [facility] MCH Auto (RBC) [Entitic mass ]Ordered By: Robert Caruso on 05-25-2023 MCH (RBC) [Entitic mass] 29.9 pg 24.7-34.3 [facility] MCHC Auto (RBC) [Mass/Vol]Or dered By: Robert Caruso on 05-25-2023 MCHC (RBC) [Mass/Vol] 34.0 g/dL 32.0-35.0 [facility] MCV Auto (RBC) [Entitic vol] Ordered By: Robert Caruso on 05-25-2023 MCV (RBC) [Entitic vol] 87.8 fL 80-100 [facility] Monocyte distribution width [Entitic volume] in Blood by AutomatedOrdered By: Robert Caruso on 05-25-2023 Monocyte distribution width Auto (Bld) [Entitic vol] 17.76 % 0.00-20.00 [facility] Monocytes Auto (Bld) [#/Vol] Ordered By: Robert Caruso on 05-25-2023 Monocytes (Bld) [#/Vol] 0.3 10*3/uL 0.0-0.8 [facility] Monocytes/100 WBC Auto (Bld) Ordered By: Robert Caruso on 05-25-2023 Monocytes/100 WBC (Bld) 3.9 % . [facility] Neutrophils Auto (Bld) [#/Vo l]Ordered By: Robert Caruso on 05-25-2023 Neutrophils (Bld) [#/Vol] 5.6 10*3/uL 1.8-7.7 [facility] Neutrophils/100 WBC Auto (Bl d)Ordered By: Robert Caruso on 05-25-2023 Neutrophils/100 WBC (Bld) 80.0 % . [facility] No Panel InformationOrdered By: Robert Caruso on 05-25-2023 Estimated GFR (CKD-EPI) > 60.0 mL/Min [facility] Creatinine Clearance (Chem 59.72 [facility] Nucleated erythrocytes [Pres ence] in Blood by Automated countOrdered By: Robert Caruso on 05-25-2023 Nucleated RBC Auto Ql (Bld) 0.0 /100{WBC} 0-0.5 [facility] Opiates [Presence] in Urine by Screen methodOrdered By: Robert Caruso on 05-25-2023 Opiates Screen Ql (U) Negative Negative [facility] Phencyclidine Screen Ql (U)O rdered By: Robert Caruso on 05-25-2023 Phencyclidine Ql (U) Negative Negative [facility] Platelet mean volume Auto (B ld) [Entitic vol]Ordered By: Robert Caruso on 05-25-2023 Platelet mean volume (Bld) [Entitic vol] 7.9 fL 6.3-10.7 [facility] Platelets Auto (Bld) [#/Vol] Ordered By: Robert Caruso on 05-25-2023 Platelets (Bld) [#/Vol] 292 10*3/uL 150-450 [facility] Potassium [Moles/volume] in Serum or PlasmaOrdered By: Robert Caruso on 05-25-2023 Potassium [Moles/Vol] 3.7 mmol/L 3.5-5.1 [facility] Protein [Mass/volume] in Ser um or PlasmaOrdered By: Robert Caruso on 05-25-2023 Protein [Mass/Vol] 7.3 g/dL 6.4-8.9 [facility] RBC Auto (Bld) [#/Vol]Ordere d By: Robert Caruso on 05-25-2023 RBC (Bld) [#/Vol] 4.74 10*6/uL 3.60-5.00 [facility] Serum or plasma albumin/glob ulin mass ratioOrdered By: Robert Caruso on 05-25-2023 Albumin/Globulin [Mass ratio] 1.5 {ratio} [facility] Serum or plasma anion gap de terminationOrdered By: Robert Caruso on 05-25-2023 Anion gap [Moles/Vol] 10.1 mmol/L 6.0-15.0 [facility] Sodium [Moles/volume] in Ser um or PlasmaOrdered By: Robert Caruso on 05-25-2023 Sodium [Moles/Vol] 138 mmol/L 136-145 [facility] Urea nitrogen [Mass/volume] in Serum or PlasmaOrdered By: Robert Caruso on 05-25-2023 Urea nitrogen [Mass/Vol] 12 mg/dL 7-25 [facility] WBC Auto (Bld) [#/Vol]Ordere d By: Robert Caruso on 05-25-2023 WBC (Bld) [#/Vol] 7.0 10*3/uL 3.8-11.6 [facility] .Fentanyl Scrn wo Conf,Uron 05-20-2023 Ur Fentanyl Scrn Negative Normal NEG <1.0 [facility] Comment on above: Performed By: #### C [id number] #### [place] [address] Ur Fentanyl Scrn Qnt 0.10 ng/mL Normal <=0.99 [facility] Comment on above: Performed By: #### C [id number] #### [place] [address] .eGFRon 05-20-2023 GFR/1.73 sq M.predicted MDRD (S/P/Bld) [Vol rate/Area] mL/min/{1.73_m2} Normal >=60 [facility] Comment on above: Result Comment: [facility] have implemented the eGFR calculation approach [...] years Performed By: #### E GFR #### [place] [address] CBC w/ Diffon 05-20-2023 Erythrocyte distribution width (RBC) [Ratio] 13.2 % Normal 11.6-14.8 [facility] Comment on above: Performed By: #### C BC #### [place] [id number] Hematocrit (Bld) [Volume fraction] 40.9 % Normal 36.0-46.0 [facility] Comment on above: Performed By: #### C BC #### [place] [id number] Hemoglobin (Bld) [Mass/Vol] 13.9 g/dL Normal 12.0-16.0 [facility] Comment on above: Performed By: #### C BC #### [place] [id number] MCH (RBC) [Entitic mass] 30.1 pg Normal 27.0-35.0 [facility] Comment on above: Performed By: #### C BC #### [place] [id number] MCHC 34.1 % Normal 31.0-37.0 [facility] Comment on above: Performed By: #### C BC #### [place] [id number] MCV (RBC) [Entitic vol] 88.2 fL Normal 80.0-100.0 [facility] Comment on above: Performed By: #### C BC #### [address] [address] Platelet 250 x10*3/mcL Normal 150-450 [facility] Comment on above: Performed By: #### C BC #### [address] [address] Platelet mean volume (Bld) [Entitic vol] 7.6 fL Normal 6.7-10.6 [facility] Comment on above: Performed By: #### C BC #### [address] [address] RBC 4.63 x10*6/mcL Normal 3.80-5.20 [facility] Comment on above: Performed By: #### C BC #### [address] [address] WBC 5.6 x10*3/mcL Normal 4.5-11.0 [facility] Comment on above: Performed By: #### C BC #### [address] [address] CMPon 05-20-2023 Albumin [Mass/Vol] 4.5 g/dL Normal 3.2-4.9 [facility] Comment on above: Performed By: #### C OMP #### [address] [address] Albumin/Globulin [Mass ratio] 1.4 {ratio} Normal 1.1-2.2 [facility] Comment on above: Performed By: #### C OMP #### [address] [address] Alk Phos 47 IU/L Normal 32-91 [facility] Comment on above: Performed By: #### C OMP #### [address] [address] ALT [Catalytic activity/Vol] 18 U/L Normal 14-54 [facility] Comment on above: Performed By: #### C OMP #### [address] [place] [address] Anion gap [Moles/Vol] 14 mmol/L Normal 7-17 [facility] Comment on above: Performed By: #### C OMP #### [address] [place] [address] AST [Catalytic activity/Vol] 28 U/L Normal 15-41 [facility] Comment on above: Performed By: #### C OMP #### [address] [address] Bili Total 0.8 mg/dL Normal 0.3-1.2 [facility] Comment on above: Performed By: #### C OMP #### [address] [address] Calcium [Mass/Vol] 10.1 mg/dL Normal 8.5-10.3 [facility] Comment on above: Performed By: #### C OMP #### [address] [place] [address] Chloride [Moles/Vol] 100 mmol/L Normal 98-110 [facility] Comment on above: Performed By: #### C OMP #### [address] [address] CO2 [Moles/Vol] 27 mmol/L Normal 22-32 [facility] Comment on above: Performed By: #### C OMP #### [address] [address] Creatinine [Mass/Vol] 0.96 mg/dL Normal 0.44-1.03 [facility] Comment on above: Performed By: #### C OMP #### [address] [place] [address] Glucose [Mass/Vol] 116 mg/dL High 70-99 [facility] Comment on above: Performed By: #### C OMP #### [address] [address] Potassium [Moles/Vol] 4.0 mmol/L Normal 3.4-4.8 [facility] Comment on above: Performed By: #### C OMP #### [address] [address] Protein [Mass/Vol] 7.8 g/dL Normal 6.5-8.1 [facility] Comment on above: Performed By: #### C OMP #### [address] [address] Sodium [Moles/Vol] 137 mmol/L Normal 133-142 [facility] Comment on above: Performed By: #### C OMP #### [address] [address] Urea nitrogen [Mass/Vol] 13 mg/dL Normal 8-26 [facility] Comment on above: Performed By: #### C OMP #### [address] [address] Urea nitrogen/Creatinine [Mass ratio] 13.5 mg/mg Normal 10.0-20.0 [facility] Comment on above: Performed By: #### C OMP #### [address] [address] [address] Brain w/o Contraston 0 CT Brain w/o Contrast CT Brain w/o [...] or other acute finding. Radiation Dose Estimate: CTDI(mGy):0.139227 / / / kVp:120.858814 / mAs:0.133976 / / / DLP(mGy-cm):5.15384 0Body Part: Head CTDI(mGy):44.054505 / / / kVp:120.165848 / mAs:182.624375 / / / DLP(mGy-cm):813.330 017Body Part: Head Final Dictated by: Tremayne Butler MD Dictated DT/TM: 05.20.2023 2:48 pm Signed by: Tremayne Butler MD Signed (Electronic Signature): 05.20.2023 2:50 pm (If Report Is Signed, Electronically Signed in Other Vendor System) Normal [facility] Diff Autoon 05-20-2023 Baso Absolute 0.0 x10*3/mcL Normal 0.0-0.2 [facility] Comment on above: Performed By: #### . Automated Diff #### [address] [address] Basophils/100 WBC (Bld) 0.5 % Normal 0.0-1.5 [facility] Comment on above: Performed By: #### . Automated Diff #### [address] [address] Eos Absolute 0.0 x10*3/mcL Normal 0.0-0.4 [facility] Comment on above: Performed By: #### . Automated Diff #### [address] [address] Eosinophils/100 WBC (Bld) 0.4 % Normal 0.0-5.4 [facility] Comment on above: Performed By: #### . Automated Diff #### [address] [address] Lymph Absolute 1.3 x10*3/mcL Normal 1.0-4.8 [facility] Comment on above: Performed By: #### . Automated Diff #### [address] [address] Lymphocytes/100 WBC (Bld) 22.8 % Low 27.2-40.8 [facility] Comment on above: Performed By: #### . Automated Diff #### [address] [address] [place] Absolute 0.3 x10*3/mcL Normal 0.1-1.1 [facility] Comment on above: Performed By: #### . Automated Diff #### [address] [address] Monocytes/100 WBC (Bld) 5.2 % Normal 3.7-11.9 [facility] Comment on above: Performed By: #### . Automated Diff #### [place] [id number] Neutro Absolute 4.0 x10*3/mcL Normal 1.8-7.7 [facility] Comment on above: Performed By: #### . Automated Diff #### [place] [address] Neutro Auto 71.1 % High 47.2-70.8 [facility] Comment on above: Performed By: #### . Automated Diff #### [place] [id number] ED Clinical Summaryon 2023 [place] [address] ED Clinical Summary Person Information Name: Yoana Bullock/[facility] Age: 67 Years : 1955 Sex: Female PCP: Remigio Simpson MD Marital Status: Phone: Race: White Ethnicity: Not or Language: Croatian Visit Reason: Psychiatric screening exam; psych screen Acuity: 2 Enc Type: Emergency Med Service: Emergency Medicine Arrival: 05/20/2023 13:12:08 Discharge: 05/20/2023 17:38:00 LOS: 000 04:26 Checkin: 05/20/2023 13:12:08 Checkout: 05/20/2023 17:38:00 Dispo Type: Home or Self Care Address: [facility] [place] [id number] Provider Notes: Diagnosis: 1:Encounter for medical screening [...] range between ( 27.2 and 40.8 ) [place] Auto: 5.2 % -- Normal range between [...] range between ( 36.0 and 46.0 ) [place] Absolute: 0.3 x10 MCH: 30.1 pg -- [...] When: Remigio Simpson [address] [place] [phone] Business (1) Within 1 week Discharge Orders: Discharge Patient 05/20/23 17:30:00 EST, Discharge to Home, Self Patient Education Information: Anxiety Reaction [facility] Poison Help line: . [facility] Hotline: [place] Tobacco Quit Line: [facility] ([place], [place]) [address]: [phone] [facility] ([place], [place]) [address]: (more content not included)... Normal [facility] ED Note-Nursingon 05-20-2023 ED Note-Nursing Patients reports patient had covid 04/21/23 and most of her symptoms are stemming from that; increased memory loss, confusion, weight loss, panic attacks. Patient did take Paxlovid. Patient was seen at [facility] on Wednesday and taken off Xanax as they felt her hallucinations could be from that, and they prescribed hydroxizine. 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 Patient denies SI [...] High Lymph Auto 05/20/23 15:21 22.8 Low [place] Auto 05/20/23 15:21 5.2 Eos Auto 05/20/23 15:21 0.4 Basophil Auto 05/20/23 15:21 0.5 Neutro Absolute 05/20/23 15:21 4.0 Lymph Absolute 05/20/23 15:21 1.3 [place] Absolute 05/20/23 15:21 0.3 Eos Absolute 05/20/23 [...] Sherri Hernandez MD 05/25/23 20:00 EST Normal [facility] ED Note-Physician Chief Complaint pt was [...] a CT head and have social work manager speak with the patient she was sent in by her therapist that she describes it Sign out to Dr. Hernandez at the end of my shift for disposition and social work manager recommendation Assessment/Plan Psychiatric screening exam (Complaint of) [...] Gilbert MD (more content not included)... Normal [facility] Ethanolon 05-20-2023 Ethanol, Plasma <10 Normal <=9 [facility] Comment on above: Result Comment: To c onvert mg/dL to g/dL, divide result by 1,000. Legal limit of intoxication is 80 mg/dL (0.08 g/dL). Performed By: #### A LC #### [address] [address] UDS Compon 05-20-2023 Creatinine [Mass/Vol] 100.2 mg/dL Normal [facility] Comment on above: Performed By: #### C [id number] #### [address] [address] Ur Amph Scrn Negative Normal NEG = <1000 [facility] Comment on above: Performed By: #### C [id number] #### [address] [address] Ur Gabriela Scrn Negative Normal NEG = <200 [facility] Comment on above: Performed By: #### C [id number] #### [address] [address] Ur Benzodia Scrn Negative Normal NEG = <200 [facility] Comment on above: Performed By: #### C [id number] #### [address] [address] Ur Cannab Scrn Negative Normal NEG = <50 [facility] Comment on above: Performed By: #### C [id number] #### [address] [address] Ur Cocaine Scrn Negative Normal NEG = <300 [facility] Comment on above: Performed By: #### C [id number] #### [address] [address] Ur Methadone Scn Negative Normal NEG = <300 [facility] Comment on above: Performed By: #### C [id number] #### [address] [address] Ur Opiate Scrn Negative Normal NEG = <300 [facility] Comment on above: Performed By: #### C [id number] #### [address] [address] Ur Oxy Screen Negative Normal NEG = <100 [facility] Comment on above: Performed By: #### C [id number] #### [address] [address] Ur Oxy Scrn Qnt 9 ng/mL Normal <=99 [facility] Comment on above: Performed By: #### C [id number] #### [address] [address] Ur PCP Scrn Negative Normal NEG = <25 [facility] Comment on above: Performed By: #### C [id number] #### [address] [address] UA pH 7.0 Normal 4.5 - 7.8 [facility] Comment on above: Performed By: #### C [id number] #### [address] [address] UA Spec Grav 1.013 Normal 1.003-1.035 [facility] Comment on above: Performed By: #### C D:[id number] #### [address] [address] Outside Colonoscopyon 2022 Outside Colonoscopy [id number] D#1.00CD:127 Normal [facility] Reminderson 01-28-2023 Reminders -- From: Sarah Griffiths LPN To: N - Clinical; Sent: 01/28/2023 13:00:59 EDT Show up: 12/27/2032 07:00:00 EDT Subject: colonoscopy recall Due Date/Time: 01/27/2033 07:00:00 EDT Reminder/Recall Patient due for screening colonoscopy 01/27/2033. Normal [facility] Consent for Procedure/Surger yon 01-12-2023 Consent for Procedure/Surgery [id number] FD#1.00CD:127 Normal [facility] Ambulatory Visit Summaryon 0 01-08-2023 Ambulatory Visit Summary KOBEREMIGIOADALGISA Richardson :1955 Visit Date:01/08/2023 Ambulatory Visit Instructions Your [...] longer receiving treatment for. Carpal tunnel Normal [facility] RAD - CT Reporton 01-07-2023 [address] - [address] Report [id number] 29#1.00CD:127 Normal [facility] Physician Referralon 023 Physician Referral [id number] 73#1.00CD:127 Normal [facility] CBC AUTO DIFFon 09-10-2022 BASO # 0.0 103/ul Normal 0.0-0.1 [facility] Comment on above: Performed By: #### C BC #### [facility] [address] [place] [address] Dr. Jess Marie Basophils/100 WBC (Bld) 0.4 % Normal 0.2-2.0 [facility] Comment on above: Performed By: #### C BC #### [facility] [address] [place] [address] Dr. Jess Marie EO # 0.0 103/ul Normal 0.0-0.7 [facility] Comment on above: Performed By: #### C BC #### [facility] [address] [place] [address] Dr. Jess Marie Eosinophils/100 WBC (Bld) 0.4 % Critically low 0.9-7.0 [facility] Comment on above: Performed By: #### C BC #### [facility] [address] [place] [address] Dr. Jess Marie Erythrocyte distribution width (RBC) [Ratio] 12.5 % Normal 11.0-15.0 [facility] Comment on above: Performed By: #### C BC #### [facility] [address] [place] [address] Dr. Jess Marie Hematocrit (Bld) [Volume fraction] 43.1 % Normal 36.0-48.0 [facility] Comment on above: Performed By: #### C BC #### [facility] [address] [place] [address] Dr. Jess Marie Hemoglobin (Bld) [Mass/Vol] 14.0 g/dL Normal 12.0-16.0 [facility] Comment on above: Performed By: #### C BC #### [facility] [address] [place] [address] Dr. Jess Marie IG # 0.01 10e3/ul Normal 0.00-0.03 [facility] Comment on above: Performed By: #### C BC #### [facility] [address] [place] [address] Dr. Jess Marie IG % 0.2 % Normal 0.0-0.5 [facility] Comment on above: Performed By: #### C BC #### [facility] [address] [place] [address] Dr. Jess Marie LYMPH # 1.4 103/ul Normal 1.2-3.8 [facility] Comment on above: Performed By: #### C BC #### [facility] [address] [place] [address] Dr. Jess Marie Lymphocytes/100 WBC (Bld) 26.8 % Normal 20.5-60.0 [facility] Comment on above: Performed By: #### C BC #### [facility] [address] [place] [address] Dr. Jess Marie MANUAL DIFF REQ NO Normal [facility] Comment on above: Performed By: #### C BC #### [facility] [address] [place] [address] Dr. Jess Marie MCH (RBC) [Entitic mass] 29.7 pg Normal 26.7-34.0 [facility] Comment on above: Performed By: #### C BC #### [facility] [address] [place] [address] Dr. Jess Marie MCHC (RBC) [Mass/Vol] 32.5 g/dL Normal 29.9-35.2 [facility] Comment on above: Performed By: #### C BC #### [facility] [address] [place] [address] Dr. Jess Marie MCV (RBC) [Entitic vol] 91.3 fL Normal 81.0-99.0 [facility] Comment on above: Performed By: #### C BC #### [facility] [address] [place] [address] Dr. Jess Marie MONO # 0.3 103/ul Normal 0.3-0.8 [facility] Comment on above: Performed By: #### C BC #### [facility] [address] [place] [address] Dr. Jess Marie Monocytes/100 WBC (Bld) 5.2 % Normal 1.7-12.0 [facility] Comment on above: Performed By: #### C BC #### [facility] [address] [place] [address] Dr. Jess Marie NEUT # 3.5 103/ul Normal 1.4-6.5 [facility] Comment on above: Performed By: #### C BC #### [facility] [address] [place] [address] Dr. Jess Marie Neutrophils/100 WBC (Bld) 67.0 % Normal 43.0-75.0 [facility] Comment on above: Performed By: #### C BC #### [facility] [address] [place] [address] Dr. Jess Marie Platelet mean volume (Bld) [Entitic vol] 9.7 fL Normal 9.5-13.5 [facility] Comment on above: Performed By: #### C BC #### [facility] [address] [place] [address] Dr. Jses Marie PLT 230 103/ul Normal 150-450 [facility] Comment on above: Performed By: #### C BC #### [facility] [address] [place] [address] Dr. Jess Marie RBC 4.72 106/ul Normal 4.20-5.40 [facility] Comment on above: Performed By: #### C BC #### [facility] [address] [place] [address] Dr. Jess Marie WBC 5.2 103/ul Normal 4.0-11.0 [facility] Comment on above: Performed By: #### C BC #### [facility] [address] [place] [address] Dr. Jess Marie GLYCOHEMOGLOBIN A1Con 2022 ADA RECOMMENDATION SEE BELOW Normal [facility] Comment on above: Result Comment: ADA RECOMMENDED LIMIT 4.0 - 6.0 ADA THERAPEUTIC TARGET < 7.0 ACTION SUGGESTED > 7.0 Performed By: #### A 1C #### [facility] [address] [place] [address] [address] Jess Marie Glucose [Mass/Vol] 123 mg/dL Normal [facility] Comment on above: Performed By: #### A 1C #### [facility] [address] [place] [address] [address] Jess Marie HbA1c (Bld) [Mass fraction] 5.9 % Normal 4.5-6.2 [facility] Comment on above: Performed By: #### A 1C #### [facility] [address] [place] [address] Dr. Jess Marie LIPID PROFILEon 09-10-2022 CHOL-HDL RATIO NORM SEE BELOW Normal [facility] Comment on above: Result Comment: 3.3 - 4.4 LOW RISK 4.4 - 7.1 AVERAGE RISK 7.1 - 11.0 MODERATE RISK >11.0 HIGH RISK Performed By: #### T SH, LIVER, BMP, LIPID #### [facility] [address] [place] [address] [address] Jess Marie Cholesterol [Mass/Vol] 267 mg/dL Critically high <=200 [facility] Comment on above: Performed By: #### T SH, LIVER, BMP, LIPID #### [facility] [address] [place] [address] [address] Jess Marie Cholesterol in HDL [Mass/Vol] 79 mg/dL Critically high 40-60 [facility] Comment on above: Performed By: #### T SH, LIVER, BMP, LIPID #### [facility] [address] [place] [address] [address] Jess Marie Cholesterol in LDL [Mass/Vol] 172.4 mg/dL Normal [facility] Comment on above: Performed By: #### T SH, LIVER, BMP, LIPID #### [facility] [address] [place] [address] [address] Jess Marie Cholesterol.total/Choles terol in HDL [Mass ratio] 3.4 {ratio} Normal [facility] Comment on above: Performed By: #### T SH, LIVER, BMP, LIPID #### [facility] [address] [place] [address] Dr. Jess Marie HDL NORMAL > or = 60 mg/dl - LOW CARDIOVASCULAR RISK <40 mg/dl - HIGH CARDIOVASCULAR RISK Normal [facility] Comment on above: Performed By: #### T SH, LIVER, BMP, LIPID #### [facility] [address] [place] [address] [address] Jess Marie LDL CALC NORMAL SEE BELOW Normal [facility] Comment on above: Result Comment: <100 mg/dl OPTIMAL 100 - 129 mg/dl NEAR OR ABOVE OPTIMAL 130 - 159 mg/dl BORDERLINE HIGH 160 - 189 mg/dl HIGH >190 mg/dl VERY HIGH Performed By: #### T SH, LIVER, BMP, LIPID #### [facility] [address] [place] [address] Dr. Jess Marie Triglyceride [Mass/Vol] 78 mg/dL Normal <=150 [facility] Comment on above: Performed By: #### T SH, LIVER, BMP, LIPID #### [facility] [address] [place] [address] Dr. Jess Marie VLDL CALC 15.6 mg/dL Normal [facility] Comment on above: Performed By: #### T SH, LIVER, BMP, LIPID #### [facility] [address] [place] [address] Dr. Jess Marie LIVER PROFILEon 09-10-2022 Albumin [Mass/Vol] 3.9 g/dL Normal 3.4-5.0 [facility] Comment on above: Performed By: #### T SH, LIVER, BMP, LIPID #### [facility] [address] [place] [address] Dr. Jess Marie Albumin/Globulin [Mass ratio] 0.9 {ratio} Normal [facility] Comment on above: Performed By: #### T SH, LIVER, BMP, LIPID #### [facility] [address] [place] [address] Dr. Jess Marie ALP [Catalytic activity/Vol] 61 U/L Normal 46-116 [facility] Comment on above: Performed By: #### T SH, LIVER, BMP, LIPID #### [facility] [address] [address] [address] Jess Marie ALT [Catalytic activity/Vol] 25 U/L Normal 14-59 [facility] Comment on above: Performed By: #### T SH, LIVER, BMP, LIPID #### [facility] [address] [address] [address] Jess Marie AST [Catalytic activity/Vol] 27 U/L Normal 15-37 [facility] Comment on above: Performed By: #### T SH, LIVER, BMP, LIPID #### [facility] [address] [place] [address] Dr. Jess Marie BILI, CONJUGATED 0.1 mg/dL Normal 0.0-0.2 [facility] [facility] Comment on above: Performed By: #### T SH, LIVER, BMP, LIPID #### [facility] [address] [place] [address] Dr. Jess Marie Bilirubin [Mass/Vol] 0.7 mg/dL Normal 0.2-1.0 [facility] Comment on above: Performed By: #### T SH, LIVER, BMP, LIPID #### [facility] [address] [address] [address] Jess Marie Globulin (S) [Mass/Vol] 4.2 g/dL Normal [facility] Comment on above: Performed By: #### T SH, LIVER, BMP, LIPID #### [facility] [address] [place] [address] Dr. Jess Marie Protein [Mass/Vol] 8.1 g/dL Normal 6.4-8.2 [facility] Comment on above: Performed By: #### T SH, LIVER, BMP, LIPID #### [facility] [address] [address] [address] Jess Marie PROF CHEM 8 (BAS METB)on Anion gap [Moles/Vol] 13.1 mmol/L Normal Th [facility] Comment on above: Performed By: #### T SH, LIVER, BMP, LIPID #### [facility] [address] [address] [address] Jess Marie Calcium [Mass/Vol] 9.6 mg/dL Normal 8.5-10.1 [facility] Comment on above: Performed By: #### T SH, LIVER, BMP, LIPID #### [facility] [address] [address] [address] Jess Marie Chloride [Moles/Vol] 105 mmol/L Normal 98-107 [facility] Comment on above: Performed By: #### T SH, LIVER, BMP, LIPID #### [facility] [address] [place] [address] Dr. Jess Marie CO2 [Moles/Vol] 28.9 mmol/L Normal 21.0-32.0 [facility] Comment on above: Performed By: #### T SH, LIVER, BMP, LIPID #### [facility] [address] [place] [address] Dr. Jess Marie Creatinine [Mass/Vol] 0.62 mg/dL Normal 0.55-1.02 [facility] Comment on above: Performed By: #### T SH, LIVER, BMP, LIPID #### [facility] [address] [place] [address] Dr. Jess Marie EGFR-AF NAMIBIAN >60 Normal >=60 [facility] Comment on above: Performed By: #### T SH, LIVER, BMP, LIPID #### [facility] [address] [place] [address] Dr. Jess Marie EGFR-NON AF NAMIBIAN >60 Normal >=60 [facility] Comment on above: Performed By: #### T SH, LIVER, BMP, LIPID #### [facility] [address] [place] [address] Dr. Jess Marie Glucose [Mass/Vol] 112 mg/dL Critically high 74-106 [facility] Comment on above: Performed By: #### T SH, LIVER, BMP, LIPID #### [facility] [address] [place] [address] Dr. Jess Marie Potassium [Moles/Vol] 5.0 mmol/L Normal 3.5-5.1 [facility] Comment on above: Result Comment: spec imen slightly hemolyzed Performed By: #### T SH, LIVER, BMP, LIPID #### [facility] [address] [address] [address] Jess Marie Sodium [Moles/Vol] 142 mmol/L Normal 136-145 [facility] Comment on above: Performed By: #### T SH, LIVER, BMP, LIPID #### [facility] [address] [address] [address] Jess Marie Urea nitrogen [Mass/Vol] 15.0 mg/dL Normal 7.0-18.0 [facility] Comment on above: Performed By: #### T SH, LIVER, BMP, LIPID #### [facility] [address] [address] [address] Jess Marie Urea nitrogen/Creatinine [Mass ratio] 24.2 mg/mg Normal [facility] Comment on above: Performed By: #### T SH, LIVER, BMP, LIPID #### [facility] [address] [address] [address] Jess Marie TSHon 09-10-2022 TSH 1.518 uIU/mL Normal 0.358-3.740 [facility] Comment on above: Performed By: #### T SH, LIVER, BMP, LIPID #### [facility] [address] [address] [address] Jess Marie US CAROTID ART BILon [...] HERSON REBOLLEDO Date: 2022-09-10 12:26 Normal [facility] XR ABD FLAT_UPon 06-10-2022 XR ABD [...] HERSON REBOLLEDO Date: 2022-06-10 08:38 Normal [facility] Covid-19 PCR ([facility])on 10-16 SARS-CoV-2 (COVID-19) RNA YAYA+probe Ql (Unsp spec) Not detected Normal NOT DETECTED [facility] Comment on above: Result Comment: This test is not yet approved or cleared by the [place] FDA. When there are no FDA-approved or cleared tests available, and other criteria are met, FDA can make tests available under an emergency access mechanism called an Emergency Use Authorization (EUA). The EUA for this test is supported by the [place] of Health and Human Service's (HHS's) declaration [...] consistent with SARS-CoV-2. Performed By: #### [facility] #### [facility] [address] [place] [address] Dr. Jess Marie Vital Signs Date Time Vital Sign Value Performing Clinician Faci lity 06-08-2023 07:30-0500 Body temperature 97.6 [degF] [facility] 06-08-2023 07:30-0500 Diastolic blood pressure 62 mm[Hg] [facility] 06-08-2023 07:30-0500 Heart rate 75 /min [facility] 06-08-2023 07:30-0500 Respiratory rate 16 /min [facility] 06-08-2023 07:30-0500 SaO2% (BldA) [Mass fraction] 97 % [facility] 06-08-2023 07:30-0500 Systolic blood pressure 110 mm[Hg] [facility] 06-07-2023 09:00-0500 Body weight 67.5 kg [facility] 06-04-2023 10:17-0500 Body height 166.37 cm [facility] 05-25-2023 14:29-0500 Diastolic blood pressure 80 mm[Hg] DO Robert Zuly Work Phone: [facility] 05-25-2023 14:29-0500 Heart rate 91 /min DO Robert Zuly Work Phone: [facility] 05-25-2023 14:29-0500 Respiratory rate 18 /min DO Robert Zuly Work Phone: [facility] 05-25-2023 14:29-0500 SaO2% (BldA) [Mass fraction] 98 % DO Robert Zuly Work Phone: [facility] 05-25-2023 14:29-0500 Systolic blood pressure 110 mm[Hg] DO Robert Zuly Work Phone: [facility] 05-25-2023 13:06-0500 Body temperature 98.3 [degF] DO Robert Zuly Work Phone: [facility] 05-25-2023 11:38-0500 Body height 165.1 cm DO Robert Zuly Work Phone: [facility] 05-25-2023 11:38-0500 Body weight 68.1 kg DO Robert Zuly Work Phone: [facility] 01-08-2023 13:49-0400 Diastolic blood pressure 94 mm[Hg] Amor HO[facility] 01-08-2023 13:49-0400 Heart rate 80 /min Amor HOLLY [facility] [place] 01-08-2023 13:49-0400 Respiratory rate 16 /min Amor HOLLY [facility] [place] 01-08-2023 13:49-0400 Systolic blood pressure 136 mm[Hg] Amor HOLLY [facility] [place] Encounters Encounter Date Encounter Type Care Provider Facility Start: 08-02-2023 End: 08-02-2023 ambulatory HERSON Dylan SALAZAR Not Available Start: 07-19-2023 End: 07-19-2023 ambulatory SHAIKH DENISSE Not Available Start: 06-30-2023 Clinisync Result Encounter Remigio Simpson MD Work Phone: [facility] Unsolicited Start: 06-30-2023 Clinisync Result Encounter Remigio Simpson MD Work Phone: [facility] Unsolicited Start: 06-30-2023 Telephone encounter Remigio zacarias MD Work Phone: [facility] Start: 06-29-2023 Orders Only Remigio Jensen Work Phone: [facility] Comment on above: Recurrent UTI (Prima ry Dx); DALILA (generalized anxiety disorder) (CMS/HCC); Neck pain; MDD (major depressive disorder), recurrent episode, mild (HCC) (CMS/HCC) Start: 06-09-2023 End: 06-09-2023 ambulatory REMIGIO SIMPSON Not Available Start: 05-25-2023 End: 06-08-2023 Evaluation and management of inpatient Remigio Simpson Facility:[facility] Start: 05-25-2023 Evaluation and management of inpatient DO Roebrt Zuly Work Phone: [address] Work Phone: Start: 05-25-2023 Non-patient / Non-visit [facility] Work Phone: Start: 05-25-2023 ambulatory Lionel Umana acility:[facility] Start: 05-20-2023 End: 05-20-2023 Emergency department patient visit Remigio Simpson MD Facility:[facility] Start: 01-27-2023 End: 01-28-2023 ambulatory Amor HOLLY Facility:[id number] Start: 01-08-2023 End: 01-09-2023 ambulatory Amor HOLLY Facility: [facility] Start: 01-08-2023 End: 01-08-2023 Patient encounter procedure Amor HOLLY [facility] Start: 12-30-2022 ambulatory Amor HOLLY Facility : [facility] Start: 09-10-2022 End: 09-11-[address] REIMGIO SIMPSON Facility:[facility] Start: 06-09-2022 End: 06-10-[address] REMIGIO SIMPSON Facility:[facility] Start: 03-12-2022 End: 03-13-[address] REMIGIO SIMPSON Facility:[facility] Start: 11-04-2021 End: 11-04-[address] REMIGIO SIMPSON Facility:[facility] Procedures Date Procedure Procedure Detail Performing Clinician Start: 06-30-2023 TBH UA (CLEAN/CATCH) MICROSCOPIC IF INDICATE Remigio Simpson MD Work Phone: Start: 12-25-2020 Colonoscopy Amor COBOS LL Start: 06-29-2014 right carpal tunnel release Amor HOLLY Start: 06-15-2014 left carpal tunnel release Amor HOLLY Adenoid excision Amor MONTOYA L Dilation and curetta ge of uterus Amor HOLLY Comment on above: 2005 tonsillectomy 2 Amor HOLLY Comment on above: 1958 Vaginal hysterectomy Amor HOLLY Plan of Treatment Date Care Activity Detail Author Start: 09-06-2023 End: 09-06-2023 Patient encounter procedure 09/06/2023 9:00 AM EDT Office Visit [facility] [address] [place] [id number] Remigio Simpson MD [address] [place] [id number] [facility] Start: 06-30-2023 End: 06-30-2024 Bacteria identified in Urine by Culture Urine culture (clean catch) Microbiology Routine Dysuria Expected: 06/30/2023 (Approximate), Expires: 06/30/2024 [facility] Comment on above: Expected: 06/30/2023 (Approximate), Expires: 06/30/2024 Start: 06-30-2023 End: 06-30-2024 Urinalysis complete panel - Urine Urinalysis with reflex microscopic (clean catch) Lab Routine Dysuria Expected: 06/30/2023 (Approximate), Expires: 06/30/2024 [facility] Work Phone: Comment on above: Expected: 06/30/2023 (Approximate), Expires: 06/30/2024 Start: 06-08-2023 [facility] Start: 05-26-2023 Administration of prophylactic treatment [facility] Start: 05-25-2023 Hospital admission [facility] Start: 05-25-2023 [facility] Start: 03-09-2021 Pneumococcal Vaccine : 65+ Years (2 - PCV) Pneumococcal Vaccine: 65+ Years (2 - PCV) [facility] Start: 1993 Screening for malign ant neoplasm of breast Mammogram [facility] Start: 1955 Medicare Annual Well ness (AWV) Medicare Annual Wellness (AWV) [facility] Start: 1955 Screening for malign ant neoplasm of colon [facility] Patient Education Dementia (DC) [facility] Behavioral Health DC Instructions [facility] Work Phone: Patient referral [facility] Work Phone: Immunizations Immunization Date Immunization Notes Care Provider Fa cilileona 03-17-2022 SARS-CoV-2 (COVID-19 ) [id number] Amor NILL [facility] 10-05-2021 SARS-CoV-2 mRNA (rbhxtnunuqq-sgxn-edvhq se) vaccine Amor NILL [facility] [place] 03-06-2021 SARS-CoV-2 (COVID-19 ) mRNA BNT-162b2 vax Maor NILL [facility] [place] 07-30-2020 SARS-CoV-2 (COVID-19 ) mRNA BNT-162b2 vax Amor NILL [facility] Comment on above: Result Comment: 2022: [id number] 07-09-2020 SARS-CoV-2 (COVID-19 ) mRNA BNT-162b2 vax Amor NILL [facility] Comment on above: Result Comment: 2022: [id number] Payers Date Payer Category Payer Self-pay 2018 Medicare 2014 Unknown 1959 Medicare [id number] 1959 Unknown [id number] 1955 Unknown [id number] .16.84 [id number] 1953 Unknown [id number] .16.84 [id number] 1953 Unknown [id number] .16.84 [id number] 1953 Unknown [id number] .16.84 [id number] 1953 Unknown [id number] 2.16.8 [id number] 1953 Unknown [id number] 2.16.8 [id number] 1953 Unknown [id number] 2.16.8 [id number] 1953 Unknown [id number] 2.16. [id number] 1955 Unknown [id number] 2.16.84 [id number] 1953 Unknown [id number] 2.16.84 [id number] 1953 Unknown [id number] 2.16.84 [id number] Unknown [id number] 2.16.8 [id number] Unknown [id number] 2.16.8 [id number] Social History Date Type Detail Facility Start: 01-08-2023 End: 06-09-2023 Tobacco smoking status Never smoked tobacco (finding) [facility] Tobacco smoking status Never [facility] Start: 06-09-2023 Sex Assigned At Female [facility] Start: 1955 Sex Assigned At Female F [facility] Start: 06-09-2023 Tobacco use and exposure Smokeless tobacco non-user [facility] Start: 06-09-2023 Alcohol intake Defer [facility] Start: 06-09-2023 History of Social function [facility] Start: 12-31-2022 Education 15 [facility] Start: 1955 Sex Assigned At Not on file [facility] Functional Status Date Assessment Result Facility 01-08-2023 Functional Status N/A [facility] Clinical Notes 03-12-2022 to 06-30-2023 Telephone Encounter - Remigio Simpson MD - 06/30/2023 12:26 PM ESTTelephone Encounter - Remigio Simpson MD - 06/30/2023 12:26 PM EST Note Date & Type Note Facility 06-30-2023 Telephone encounter Note Patient with increased confusion and concerned of UTI. Please fax orders to [facility]. [facility] 06-30-2023 Miscellaneous Notes Patient with increased confusion and concerned of UTI. Please fax orders to [facility]. documented in this encounter [facility] 06-08-2023 Hospital Discharg e instructions Additional Instructions Important Contact Information You can call [facility] Inpatient [facility]al Health at [phone] any time day or night if you have emergent questions or question regarding discharge instructions. If at any time you are feeling an increase in your psychiatric symptoms, call your physician or behavioral healthcare provider. If any time you have thoughts of harming yourself or others contact one of the following: Call 98-8 (available 07/12) Crisis Text Line (available 07/12) text 4HOPE to [phone] [facility] Hope Line (available 8 a.m. Midnight) call [phone] ([phone]) [facility] Work Phone: 01-08-2023 Note Chief Complaint consultation [...] Use:. Household tobacco (more content not included)... [facility] Comment on above: Result Comment: Elec [...] by: HERSON REBOLLEDO Date: 2022-03-12 18:14 [facility] Evaluation + Plan note No data available for this section [facility] [place] Evaluation note No assessment inform ation available [facility] Work Phone: Evaluation note Diagnosis Onset Date Anxiety acute Confusion acute Depression acute Major neurocognitive disorder acute Suicidal ideation acute [facility] Work Phone: Evaluation note* Diagnosis Recurrent UTI- Primary Urinary tract infection, site not specified DALILA (generalized anxiety disorder) (CMS/HCC) Generalized anxiety disorder Neck pain Cervicalgia MDD (major depressive disorder), recurrent episode, mild (HCC) (CMS/HCC) [facility] Diagnosis Dysuria- Primary documented in this encounter [facility] Author Sridhar Hoffman [facility] May 26, 2023 12:28pm Note Date/Time May 26, 2023 1 2:28pm [facility] [address] [place] [address] Psychiatry H&P Signed Patient: Yoana Bullock MR#: [id number] : 1955 Acct:[id number] Age/Sex: 67 / F Adm Date: 4 Loc: Room: [address] [place] [address] Type: ADM IN Attending Dr: Sridhar Hoffman [...] denied current suicidality Insight: fair Judgment: fair [facility] Medical History (Updated 05/26/23 @ 12:28 by [...] signed by Sridhar Hoffman MD> 05/26/23 1228 [facility] Work Phone: Hospital Discharge instructions No data available for this section [facility] Progress note No data available for this section [facility] Reason for referral (narrative)* Consultation (Routine) - Pending Review Specialty Diagnoses / Procedures Referred By Contac t Referred To Contact Urology Diagnoses Recurrent UTI Procedures AR OFFICE/OUTPATIENT NEW HIGH MDM 60 MINUTES Remigio Simpson MD [address] [place] [address] Amor Arcos MD [address] [place] [address] Referral ID Status Reason Start Date Expiration Date Visits Requested Visits Authorized [id number] Pending Review Specialty Services Required 06/29/2023 12/26/2023 1 1 [facility] Healthcare Summary Purpose Family History No Family History [...] and content) DATE CREATED AUTHOR 09/17/2022 [facility] DATE CREATED AUTHOR AUTHOR'S ORGANIZ ATION 02/17/2023 [facility] DATE CREATED AUTHOR AUTHOR'S ORGANIZ ATION 05/26/2023 [facility] DATE CREATED AUTHOR AUTHOR'S ORGANIZ ATION 08/03/2023 [facility] DATE CREATED AUTHOR AUTHOR'S ORGANIZ ATION 08/05/2023 [facility] Patient Care team informatio n (unrecognized [...] Attending Provider Active Start: May 25, 2023 [employer] Relationship Specialty Start Date End Date Remigio Simpson MD PCP - General Family Medicine 05/17/22 [employer] Relationship Specialty Start Date End Date Remigio Simpson MD PCP - General Family Medicine 05/17/22 [employer] Relationship Specialty Start Date End Date Remigio Simpson MD PCP - [facility] Family Medicine 05/17/22 Goals (unrecognized section and [...] BE BASED ON THE PRIMARY CLINICAL RECORDS. [employer] provides no warranty or guarantee of the accuracy or completeness of information in this document.
[2023-08-09 11:50] LABS: Bilirubin Urine NEGATIVE (NEGATIVE); Blood Urine NEGATIVE (NEGATIVE); Clarity Urine CLEAR (CLEAR); Color Urine YELLOW (YELLOW); Glucose Urine UA NEGATIVE (NEGATIVE); Ketones Urine 15 mg/dL (NEGATIVE); Leukocyte Esterase Urine TRACE (NEGATIVE); Nitrite Urine NEGATIVE (NEGATIVE); Protein Urine NEGATIVE (NEG/TRACE); Specific Gravity Urine >=1.030 (1.005-1.025); Urobilinogen Urine 0.2 EU/dL (0.2-1.0); pH Urine 5.5 (5.0-9.0)
[2023-08-09 11:59] LABS: Urine Microscopic Indicated YES
[2023-08-09 12:13] LABS: RBC Urine NONE SEEN #/HPF (0-2); WBC Urine 0-2 #/HPF (NONE SEEN)
[2023-08-09 12:14] LABS: Bacteria Urine SMALL #/HPF (NONE SEEN); Calcium Oxalate Crystals Urine MANY; Crystals Seen? Seen #/HPF (None Seen); Mucus Urine LARGE (NONE SEEN); Squamous Epithelial Cell Urine FEW #/LPF (NONE/RARE)
[2023-08-09 12:15] LABS: Urine Culture Indicated YES
== END 2023-08-09 08:53 | disposition home or self-care (01) ==
LOC: LAB 08:52
PROVIDERS: PCP Family Medicine
DX: N39.0 Urinary tract infection, site not specified (principal)
CPT/HCPCS: 81001; 87086; 87150; 87186

== ENCOUNTER 2023-09-10 08:16 | Outpatient (OUT) | payer MEDICARE, OTHER, SELFPAY ==
--- OUTSIDE RECORDS SUMMARY | 2023-09-10 08:24 | XMS_ITS | CCD ---
Author Organization [facility] Care Team Providers [employer] Name Role Phone CALVIN, DR REMIGIO Richardson [...] Unavail vinay Gilbert MD, Anuj Orta Attending DO Robert Oliver Emergency Provider [phone] MD Remigio Simpson Primary Care Provider [phone] MD Sridhar Hoffman Admit Provider MD Sridhar Hoffman Attending Provider [phone] Remigio Simpson MD Primary Care Provider [phone] Remigio Simpson Primary Care Unavailable Sridhar Hoffman Admitting Unavailable Sridhar Hoffman Attending Unavailable Lionel Still Admitting Unavailab Lionel Saini Attending Unavailab Remigio Douglas Primary Care Unavailable REMIGIO SIMPSON Attending Unavailable SHAIKH SALCEDO Attending Unavailable HERSON SALAZAR Attending Unavailable REI FRANZ Attending Unavailable REI FRANZ Referring Unavailable Medications Current Medications Medication Drug Class(es) [...] Onset: 4 Other aftercare (1 source) Other retirement (current) drug therapy; Translations: [OTH [facility] CURRENT DRUG THERAPY] Onset: 3 Episodic Other aftercare (3 sources) Patient encounter status; Translations: [Other roasterman (current) drug therapy] Onset: 3 05-11-2023 Episodic [...] Test Name Value Interpretation Reference Range Facility [facility] UA (CLEAN/CATCH) MICROSC OPIC IF INDICATEon 06-30-2023 BILIRUBIN URINE Negative NEGATIVE [facility] BLOOD URINE Negative NEGATIVE [facility] Clarity (U) CLEAR CLEAR [facility] Color (U) LT. YELLOW YELLOW [facility] GLUCOSE URINE UA Negative NEGATIVE mg/dL [facility] Interpretation and review of laboratory results Abnormal [facility] Ketones Ql (U) Negative NEGATIVE mg/dL [facility] Leukocyte esterase Test strip Ql (U) TRACE Abnormal NEGATIVE [facility] NITRITE URINE Negative NEGATIVE [facility] pH (U) 5.0 [pH] 5.0 - 9.0 [facility] PROTEIN URINE Negative NEG/TRACE mg/dL [facility] SPECIFIC GRAVITY URINE 1.025 1.005 - 1.025 [facility] URINE MICROSCOPIC INDICATED YES [facility] UROBILINOGEN URINE 0.2 EU/dL 0.2 - 1.0 EU/dL [facility] A1[facility] with Estimated Average G cristal 06-04-2023 Glucose [Mass/Vol] 128 mg/dL Normal [facility] Comment on above: Result Comment: PERF ORMED BY: [place] [address] PATHOLOGIST [employer] ELE SPRING M.D. Performed By: #### A 1C [facility] Narda CMP #### [address] HbA1c (Bld) [Mass fraction] 6.1 % High 4.3-5.6 [facility] Comment on above: Result Comment: Incr eased risk for diabetes: 5.7 - 6.4 diabetes: >6.4 glycemic control for adults with diabetes: <7.0 Performed By: #### A 1C [facility] Narda, CMP #### [facility] [address] Comprehensive Metabolic Pane chito 06-04-2023 Albumin [Mass/Vol] 3.3 g/dL Low 3.5-5.7 [facility] Comment on above: Performed By: #### A Treva YEE eA CMP #### [facility] [address] [place] [id number] [facility] Albumin/Globulin [Mass ratio] 1.4 {ratio} Normal [facility] Comment on above: Performed By: #### A Treva YEE eA CMP #### [facility] [address] ALP [Catalytic activity/Vol] 39 U/L Normal 34-104 [facility] Comment on above: Performed By: #### A Treva YEE eA CMP #### [facility] [address] ALT [Catalytic activity/Vol] 12 U/L Normal 7-52 [facility] Comment on above: Performed By: #### A Treva YEE eA CMP #### [facility] [address] Anion gap [Moles/Vol] 6.4 mmol/L Normal 6.0-15.0 [facility] Comment on above: Performed By: #### A Treva YEE eA CMP #### [facility] [address] AST [Catalytic activity/Vol] 20 U/L Normal 13-39 [facility] Comment on above: Performed By: #### A Treva YEE eA CMP #### [facility] [address] [place] [address] [place] Bilirubin [Mass/Vol] 0.4 mg/dL Normal 0.3-1.0 [facility] Comment on above: Performed By: #### A Treva YEE eA CMP #### [facility] [address] Calcium [Mass/Vol] 9.3 mg/dL Normal 8.6-10.3 [facility] Comment on above: Performed By: #### A 1C WTH eA, CMP #### [facility] [address] [place] [address] [place] Chloride [Moles/Vol] 108 mmol/L High 98-107 [facility] Comment on above: Performed By: #### A Treva FUENTES Narda CMP #### [facility] [address] CO2 [Moles/Vol] 30.7 mmol/L Normal 21.0-31.0 [facility] Comment on above: Performed By: #### A Treva FUENTES Narda, CMP #### [facility] [address] Creatinine [Mass/Vol] 0.71 mg/dL Normal 0.60-1.20 [facility] Comment on above: Performed By: #### A Treva FUENTES Narda CMP #### [facility] [address] Creatinine Clr Calc Pharmacy 59.72 Normal [facility] Comment on above: Result Comment: PERF ORMED BY: [place] [address] PATHOLOGIST [employer] ELE SPRING M.D. Performed By: #### A Treva FUENTES Narda CMP #### [address] GFR/1.73 sq M.predicted MDRD (S/P/Bld) [Vol rate/Area] mL/min/{1.73_m2} [facility] Comment on above: Performed By: #### A Treva FUENTES Narda, CMP #### [facility] [address] [place] [address] [place] Globulin (S) [Mass/Vol] 2.3 g/dL Normal [facility] Comment on above: Performed By: #### A Treva FUENTES Narda, CMP #### [facility] [address] Glucose [Mass/Vol] 101 mg/dL High 70-100 [facility] Comment on above: Result Comment: [place] Glucose Reference Range is dependent on time and content of last meal. Glucose of more than 200 mg/dL in a nonstressed, ambulatory subject supports the diagnosis of Diabetes Mellitus. ADA recommended reference range Performed By: #### A Treva YEE eA, CMP #### [address] Potassium [Moles/Vol] 4.1 mmol/L Normal 3.5-5.1 [facility] Comment on above: Performed By: #### A Treva YEE eA, CMP #### [address] Protein [Mass/Vol] 5.6 g/dL Low 6.4-8.9 [facility] Comment on above: Performed By: #### A Treva YEE eA, CMP #### [address] Sodium [Moles/Vol] 141 mmol/L Normal 136-145 [facility] Comment on above: Performed By: #### A Treva YEE eA, CMP #### [address] Urea nitrogen [Mass/Vol] 22 mg/dL Normal 7-25 [facility] Comment on above: Performed By: #### A Treva YEE eA, CMP #### [address] Urine Cultureon 06-04-2023 Bacteria identified Cx Nom (U) <9,000 colonies/ml mixed bacterial skin contaminants 2 Days PERFORMED BY: [address] [place] [address] PATHOLOGIST [employer]ER ELE SPRING M.D. [facility] Comment on above: Performed By: #### A Treva YEE eA, CMP #### [address] A1C with Estimated Average G luon 06-01-2023 Glucose [Mass/Vol] 126 mg/dL Normal [facility] Comment on above: Result Comment: PERF ORMED BY: [place] [address] PATHOLOGIST [employer] ELE SPRING M.D. Performed By: #### A 1C WTH eA, CMP #### [address] HbA1c (Bld) [Mass fraction] 6.0 % High 4.3-5.6 [facility] Comment on above: Result Comment: Incr eased risk for diabetes: 5.7 - 6.4 diabetes: >6.4 glycemic control for adults with diabetes: <7.0 Performed By: #### A 1C WTH eA, CMP #### [address] Complete Blood Count Auto Di ffon 06-01-2023 Basophils (Bld) [#/Vol] 0.0 10*3/uL Normal 0.0-0.2 [facility] Comment on above: Result Comment: PERF ORMED BY: [place] [address] PATHOLOGIST [employer] ELE SPRING M.D. Performed By: #### C BC, A1C WTH eA, CMP #### [address] Basophils/100 WBC (Bld) 0.5 % Normal . [facility] Comment on above: Performed By: #### C BC, A1C WT eA, CMP #### [address] Eosinophils (Bld) [#/Vol] 0.1 10*3/uL Normal 0.0-0.45 [facility] Comment on above: Performed By: #### C BC, A1C WTH eA, CMP #### [place] [address] [place] Eosinophils/100 WBC (Bld) 1.5 % Normal . [facility] Comment on above: Performed By: #### C BC, A1C WTH eA, CMP #### [address] Erythrocyte distribution width (RBC) [Ratio] 12.9 % Normal 11.9-15.3 [facility] Comment on above: Performed By: #### C BC, A1C WTH eA, CMP #### [facility] [address] Hematocrit (Bld) [Volume fraction] 35.4 % Normal 34.0-46.4 [facility] Comment on above: Performed By: #### C BC, A1C WTH eA, CMP #### [address] Hemoglobin (Bld) [Mass/Vol] 11.9 g/dL Normal 11.8-15.4 [facility] Comment on above: Performed By: #### C BC, A1C WTH eA, CMP #### [address] Lymphocytes (Bld) [#/Vol] 1.6 10*3/uL Normal 1.00-4.8 [facility] Comment on above: Performed By: #### C BC, A1C WTH eA, CMP #### [address] Lymphocytes/100 WBC (Bld) 31.4 % Normal . [facility] Comment on above: Performed By: #### C BC, A1C WTH eA, CMP #### [address] MCH (RBC) [Entitic mass] 29.5 pg Normal 24.7-34.3 [facility] Comment on above: Performed By: #### C BC, A1C WTH eA, CMP #### [address] MCV (RBC) [Entitic vol] 88.1 fL Normal 80-100 [facility] Comment on above: Performed By: #### C BC, A1C WTH eA, CMP #### [address] Mean Corpuscular HGB Conc 33.5 g/dL Normal 32.0-35.0 [facility] Comment on above: Performed By: #### C BC, A1C WTH eA, CMP #### [place] [address] [place] Monocytes (Bld) [#/Vol] 0.4 10*3/uL Normal 0.0-0.8 [facility] Comment on above: Performed By: #### C ARMANDO, A1C WT Narda, CMP #### [facility] [address] [place] [address] [place] Monocytes/100 WBC (Bld) 8.8 % Normal . [facility] Comment on above: Performed By: #### C ARMANDO, A1C WT Narda, CMP #### [facility] [address] Neutrophils (Bld) [#/Vol] 2.9 10*3/uL Normal 1.8-7.7 [facility] Comment on above: Performed By: #### C ARMANDO, A1C WT Narda, CMP #### [facility] [address] Neutrophils/100 WBC (Bld) 57.8 % Normal . [facility] Comment on above: Performed By: #### C ARMANDO, A1C WT Narda, CMP #### [facility] [address] NRBC% 0.1 /100{WBC} Normal 0-0.5 [facility] Comment on above: Performed By: #### C ARMANDO, A1C WT Narda, CMP #### [facility] [address] Platelet mean volume (Bld) [Entitic vol] 7.4 fL Normal 6.3-10.7 [facility] Comment on above: Performed By: #### C ARMANDO, A1C WT Narda, CMP #### [facility] [address] [place] [address] [place] Platelets (Bld) [#/Vol] 220 10*3/uL Normal 150-450 [facility] Comment on above: Performed By: #### C ARMANDO, A1C WTH Narda, CMP #### [facility] [address] [place] [address] [place] RBC (Bld) [#/Vol] 4.02 10*6/uL Normal 3.60-5.00 [facility] Comment on above: Performed By: #### C ARMANDO, A1C WTH eA, CMP #### [facility] [address] WBC (Bld) [#/Vol] 5.1 10*3/uL Normal 3.8-11.6 [facility] Comment on above: Performed By: #### C BC, A1C WTH eA, CMP #### [facility] [address] Comprehensive Metabolic Pane chito 06-01-2023 Albumin [Mass/Vol] 3.4 g/dL Low 3.5-5.7 [facility] Comment on above: Performed By: #### A 1C WTH Narda, CMP #### [address] Albumin/Globulin [Mass ratio] 1.5 {ratio} Normal [facility] Comment on above: Performed By: #### A 1C WTH Narda, CMP #### [address] ALP [Catalytic activity/Vol] 37 U/L Normal 34-104 [facility] Comment on above: Performed By: #### A 1C WTH Narda, CMP #### [address] ALT [Catalytic activity/Vol] 13 U/L Normal 7-52 [facility] Comment on above: Performed By: #### A 1C WTH Narda, CMP #### [address] Anion gap [Moles/Vol] 8.2 mmol/L Normal 6.0-15.0 [facility] Comment on above: Performed By: #### A 1C WTH eA, CMP #### [facility] [address] [place] [address] AST [Catalytic activity/Vol] 15 U/L Normal 13-39 [facility] Comment on above: Performed By: #### A 1C WTH eA, CMP #### [address] Bilirubin [Mass/Vol] 0.3 mg/dL Normal 0.3-1.0 [facility] Comment on above: Performed By: #### A 1C NAKIA Laboy, CMP #### [facility] [address] Calcium [Mass/Vol] 9.1 mg/dL Normal 8.6-10.3 [facility] Comment on above: Performed By: #### A 1C NAKIA Laboy, CMP #### [facility] [address] [place] [address] [place] Chloride [Moles/Vol] 109 mmol/L High 98-107 [facility] Comment on above: Performed By: #### A 1C NAKIA Laboy, CMP #### [facility] [address] CO2 [Moles/Vol] 27.8 mmol/L Normal 21.0-31.0 [facility] Comment on above: Performed By: #### A 1C NAKIA Laboy, CMP #### [facility] [address] Creatinine [Mass/Vol] 0.58 mg/dL Low 0.60-1.20 [facility] Comment on above: Performed By: #### A 1C NAKIA Laboy, CMP #### [facility] [address] [place] [address] [place] Creatinine Clr Calc Pharmacy 59.72 [facility] Comment on above: Result Comment: PERF ORMED BY: [place] [address] PATHOLOGIST [employer]SEM[employer]ER ELE SPRING M.D. Performed By: #### A 1C NAKIA Laboy, CMP #### [facility] [address] [place] [address] [place] GFR/1.73 sq M.predicted MDRD (S/P/Bld) [Vol rate/Area] mL/min/{1.73_m2} [facility] Comment on above: Performed By: #### A 1C NAKIA Laboy, CMP #### [facility] [address] [place] [address] [place] Globulin (S) [Mass/Vol] 2.2 g/dL Normal [facility] Comment on above: Performed By: #### A Treva YEE eA, CMP #### [facility] [address] Glucose [Mass/Vol] 94 mg/dL Normal 70-100 [facility] Comment on above: Result Comment: [facility] Glucose Reference Range is dependent on time and content of last meal. Glucose of more than 200 mg/dL in a nonstressed, ambulatory subject supports the diagnosis of Diabetes Mellitus. ADA recommended reference range Performed By: #### A Treva YEE eA, CMP #### [facility] [address] Potassium [Moles/Vol] 4.0 mmol/L Normal 3.5-5.1 [facility] Comment on above: Performed By: #### A Treva YEE eA, CMP #### [facility] [address] Protein [Mass/Vol] 5.6 g/dL Low 6.4-8.9 [facility] Comment on above: Performed By: #### A Treva YEE eA, CMP #### [facility] [address] [place] [address] [place] Sodium [Moles/Vol] 141 mmol/L Normal 136-145 [facility] Comment on above: Performed By: #### A Treva YEE eA, CMP #### [facility] [address] [place] [address] [place] Urea nitrogen [Mass/Vol] 18 mg/dL Normal 7-25 [facility] Comment on above: Performed By: #### A Treva YEE eA, CMP #### [facility] [address] [place] [address] [place] Dipstick and Microscopicon 0 05-31-2023 Appearance (U) Slightly Cloudy Critically abnormal Clear [facility] Comment on above: Order Comment: Name Collection Type:: Clean-Voided Midstream Performed By: #### A Treva YEE eA, CMP #### [facility] [address] [place] [address] [place] Bacteria,Urine None Seen Normal None Seen [facility] Comment on above: Order Comment: Name Collection Type:: Clean-Voided Midstream Performed By: #### A 1C WTH eA, CMP #### [facility] [address] [place] [address] [place] Bilirubin,Urine Negative Normal Negative [facility] Comment on above: Order Comment: Name Collection Type:: Clean-Voided Midstream Performed By: #### A 1C WTH eA, CMP #### [place] [address] [place] Color (U) Yellow Normal Yellow [facility] Comment on above: Order Comment: Name Collection Type:: Clean-Voided Midstream Performed By: #### A 1C WTH eA, CMP #### [address] Glucose Ql (U) Normal Normal Normal [facility] Comment on above: Order Comment: Name Collection Type:: Clean-Voided Midstream Performed By: #### A 1C WTH eA, CMP #### [place] [address] [place] Hyaline Casts,Urine 9-19 High 0-8 [facility] Comment on above: Order Comment: Name Collection Type:: Clean-Voided Midstream Result Comment: PERF ORMED BY: [place] [address] PATHOLOGIST [employer]ER ELE SPRING M.D. Performed By: #### A 1C WTH eA, CMP #### [facility] [address] [place] [address] Ketones Ql (U) Negative Normal Negative [facility] Comment on above: Order Comment: Name Collection Type:: Clean-Voided Midstream Performed By: #### A 1C WTH eA, CMP #### [facility] [address] [place] [address] [place] Leukocyte esterase Test strip Ql (U) 2+ High Negative [facility] Comment on above: Order Comment: Name Collection Type:: Clean-Voided Midstream Performed By: #### A 1C WTH eA, CMP #### [place] [address] [place] Nitrite,Urine Negative Normal Negative [facility] Comment on above: Order Comment: Name Collection Type:: Clean-Voided Midstream Performed By: #### A 1C WTBrigitte eA, CMP #### [address] Occult Blood,Urine Negative Normal Negative [facility] Comment on above: Order Comment: Name Collection Type:: Clean-Voided Midstream Result Comment: PERF ORMED BY: [place] [address] PATHOLOGIST [employer] ASSEMBLER ELE SPRING M.D. Performed By: #### A 1C WTBrigitte Laboy, CMP #### [address] Othe Crystals,Urine None Seen Normal [facility] Comment on above: Order Comment: Name Collection Type:: Clean-Voided Midstream Performed By: #### A 1C WTBrigitte Laboy, CMP #### [address] pH (U) 6.0 [pH] Normal 5.0-9.0 [facility] Comment on above: Order Comment: Name Collection Type:: Clean-Voided Midstream Performed By: #### A 1C WTBrigitte eA, CMP #### [address] Protein,Urine Negative Normal Negative [facility] Comment on above: Order Comment: Name Collection Type:: Clean-Voided Midstream Performed By: #### A 1C WTBrigitte eA, CMP #### [address] RBC,Urine 5-9 High 0-4 [facility] Comment on above: Order Comment: Name Collection Type:: Clean-Voided Midstream Performed By: #### A 1C WTBrigitte eA, CMP #### [address] Specificy [place],Urine 1.030 Normal 1.001-1.030 [facility] Comment on above: Order Comment: Name Collection Type:: Clean-Voided Midstream Performed By: #### A 1C WTH eA, CMP #### [facility] [address] Squamous Epithelial Cell,Urine 1-2 Normal 0-2 [facility] Comment on above: Order Comment: Name Collection Type:: Clean-Voided Midstream Performed By: #### A 1C WTH eA, CMP #### [facility] [address] [place] [address] Uric Acid Crystals,Urine 1+ Normal [facility] Comment on above: Order Comment: Name Collection Type:: Clean-Voided Midstream Performed By: #### A 1C WTH eA, CMP #### [address] Urobilinogen,Urine Normal Normal Normal [facility] Comment on above: Order Comment: Name Collection Type:: Clean-Voided Midstream Performed By: #### A 1C WTH eA, CMP #### [address] WBC,Urine 5-9 High 0-4 [facility] Comment on above: Order Comment: Name Collection Type:: Clean-Voided Midstream Performed By: #### A 1C WTH eA, CMP #### [address] MR head/brain wo conon 05-31 MR head/brain wo con [facility] [place] [address] [place] [address] MRI Report Signed Patient: Yoana Bullock MR#: [id number] 21 : 1955 Acct:[id number] Age/Sex: 67 / F ADM Date: 05/25/23 Loc: Room: [address] [place] [address] Type: ADM IN Attending Dr: Sridhar Hoffman [...] ABNORMALITY. Impression dictated by: Raymundo Coates Jr., DEstebanOEsteban05/31/2023 1:55 PM Dictation Location: [place] [address] Transcribed By: [facility] 05/31/23 1355 Dictated By: Raymundo Coates Jr DO 05/31/23 1348 Signed By: 05/31/23 1355 Normal [facility] Urine Cultureon 05-31-2023 Bacteria identified Cx Nom (U) 15,000 colonies/ml mixed bacterial skin contaminants 2 Days PERFORMED BY: [place] [address] PATHOLOGIST W[employer]ER ELE SPRING M.D. [facility] Comment on above: Performed By: #### A 1C [facility] Narda, CMP #### [facility] [address] [place] [address] Ammoniaon 05-29-2023 Ammonia (P) [Moles/Vol] 21 umol/L Normal 11-35 [facility] Comment on above: Result Comment: PERF ORMED BY: [place] [address] PATHOLOGIST [employer]ER ELE SPRING M.D. Performed By: #### A 1C [facility] Narda, CMP #### [facility] [address] [place], [place] [id number] [facility] Vitamin B12on 05-29-2023 Cobalamin (Vitamin B12) [Mass/Vol] 380 pg/mL Normal 180-914 [facility] Comment on above: Result Comment: PERF ORMED BY: [place] [address] PATHOLOGIST W[employer] ASSEMBLER ELE SPRING M.D. Performed By: #### A 1C ALFREDO Narda, CMP #### [facility] [address] [place], [place] [id number] [facility] Lipid Panelon 05-26-2023 Cholesterol [Mass/Vol] 177 mg/dL Normal 140-200 [facility] Comment on above: Result Comment: Chol less than 200 mg/dl low risk Chol 201-239 mg/dl borderline risk Chol 240 mg/dl and greater high risk Performed By: #### T SH3 wRFLX, [id number], LIPID #### [facility] [address] [place] [address] [place] Cholesterol in HDL [Mass/Vol] 62 mg/dL Normal 23-92 [facility] Comment on above: Result Comment: HDL CHOL ATP-III CLASSIFICATION Cardiovascular Risk HDL > or equal to 60 mg/dL LOW HDL < 40 mg/dL HIGH Performed By: #### T SH3 wRFLX, [id number], LIPID #### [facility] [address] Cholesterol.total/Choles terol in HDL [Mass ratio] 2.9 {ratio} Normal <5.0 [facility] Comment on above: Performed By: #### T SH3 wRFLX, [id number], LIPID #### [facility] [address] LDL Cholesterol,Calculated 95 mg/dL Normal 0-100 [facility] Comment on above: Result Comment: LDL ATP III CLASSIFICATION LDL less than 100 mg/dL Optimal LDL 100-129 mg/dL Near or above optimal LDL 130-159 mg/dL Borderline high LDL 160-189 mg/dL High LDL greater than 189 mg/dL Very high Performed By: #### T SH3 wRFLX, [id number], LIPID #### [facility] [address] [place] [id number] [place] Triglyceride w/Reflex 100 mg/dL Normal 0-149 [facility] Comment on above: Result Comment: TRIG ATP III CLASSIFICATION TRIG less than 150 mg/dL Normal TRIG 150-199 mg/dL Borderline high TRIG 200-500 mg/dL High TRIG greater than 500 mg/dL Very high Standard traceable to the Center for Disease Conrtrol and Prevention (CDC) test method. Performed By: #### T SH3 wRFLX, [id number], LIPID #### [facility] [address] [place] [address] VLDL CHOLESTEROL 20 mg/dL Normal [facility] Comment on above: Performed By: #### T SH3 wRFLX, [id number], LIPID #### [facility] [address] [place] [address] Thyroid Stim Hormone w/Rflxo n 05-26-2023 Thyroid Stim Hormone w/Rflx 2.11 u[iU]/mL Normal 0.45-5.33 [facility] Comment on above: Performed By: #### T SH3 wRFLX, [id number], LIPID #### [facility] [address] [place] [address] Vitamin D 25 Hydroxy Totalon 05-26-2023 Vitamin D 25 Hydroxy Total 25.4 ng/mL Low 30-100 [facility] Comment on above: Result Comment: HUSAM MIN D STATUS 25(OH)VITAMIN D RANGE (ng/mL) Deficient <20 Insufficient 20 to <30 Sufficient 30 to 100 Reference: Shaq MF,Monica PRESLEY, Fabrizio , et al. Evaluation,treatment, and prevention of vitamin D deficiency; an Endocrine Society clinical practice guideline. JCEM. 2010; 96(7):1911-30. PERFORMED BY: [place] [address] PATHOLOGIST [employer] ELE SPRING M.D. Performed By: #### T SH3 wRFLX, [id number], LIPID #### [facility] [address] [place] [address] Alanine aminotransferase [En zymatic activity/volume] in Serum or PlasmaOrdered By: Robert Caruso on 05-25-2023 ALT [Catalytic activity/Vol] 14 U/L 7-52 [facility] Albumin [Mass/volume] in Ser um or Plasma by Bromocresol green (BCG) dye binding methoOrdered By: Robert Caruso on 05-25-2023 Albumin BCG dye [Mass/Vol] 4.4 g/dL 3.5-5.7 [facility] Alkaline phosphatase [Enzyma tic activity/volume] in Serum or PlasmaOrdered By: Robert Caruso on 05-25-2023 ALP [Catalytic activity/Vol] 48 U/L 34-104 [facility] Amphetamine Screen Ql (U)Ord ered By: Robert Caruso on 05-25-2023 Amphetamines Ql (U) Negative Negative [facility] Aspartate aminotransferase [ Enzymatic activity/volume] in Serum or PlasmaOrdered By: Robert Caruso on 05-25-2023 AST [Catalytic activity/Vol] 21 U/L 13-39 [facility] Barbiturates [Presence] in U rine by Screen methodOrdered By: Robert Caruso on 05-25-2023 Barbiturates Screen Ql (U) Negative Negative [facility] Basophils Auto (Bld) [#/Vol] Ordered By: Robert Caruso on 05-25-2023 Basophils (Bld) [#/Vol] 0.0 10*3/uL 0.0-0.2 [facility] Basophils/100 WBC Auto (Bld) Ordered By: Robert Caruso on 05-25-2023 Basophils/100 WBC (Bld) 0.5 % . [facility] Benzodiazepines Screen Ql (U )Ordered By: Robert Caruso on 05-25-2023 Benzodiazepines Ql (U) Negative Negative [facility] Benzoylecgonine [Presence] i n Urine by Screen methodOrdered By: Robert Caruso on 05-25-2023 Benzoylecgonine Screen Ql (U) Negative Negative [facility] Bilirubin.total [Mass/volume ] in Serum or PlasmaOrdered By: Robert Caruso on 05-25-2023 Bilirubin [Mass/Vol] 0.8 mg/dL 0.3-1.0 [facility] Calcium [Mass/volume] in Ser um or PlasmaOrdered By: Robert Caruso on 05-25-2023 Calcium [Mass/Vol] 10.1 mg/dL 8.6-10.3 [facility] Cannabinoids [Presence] in U rine by Screen methodOrdered By: Robert Caruso on 05-25-2023 Cannabinoids Screen Ql (U) Negative Negative [facility] Comment on above: These are unconfirme d results and should not be used for legal purposes. Drug Cut-Off Concentration: AMPH 1000 ng/mL GABRIELA 200 ng/mL SIVA 200 ng/mL COCM 300 ng/mL OP 300 ng/mL PCP 25 ng/mL THC 20 ng/mL Carbon dioxide, total [Moles /volume] in Serum or PlasmaOrdered By: Robert Caruso on 05-25-2023 CO2 [Moles/Vol] 29.6 mmol/L 21.0-31.0 [facility] Chloride [Moles/volume] in S anupam or PlasmaOrdered By: Robert Caruso on 05-25-2023 Chloride [Moles/Vol] 102 mmol/L 98-107 [facility] Complete Blood Count Auto Di ffon 05-25-2023 Basophils (Bld) [#/Vol] 0.0 10*3/uL Normal 0.0-0.2 [facility] Comment on above: Result Comment: PERF ORMED BY: [place] [address] PATHOLOGIST [employer] E[employer]ING M.D. Performed By: #### A 1C [facility] Narda CMP #### [address] Basophils/100 WBC (Bld) 0.5 % Normal . [facility] Comment on above: Performed By: #### A 1C [facility] Narda CMP #### [place] [address] [place] Eosinophils (Bld) [#/Vol] 0.0 10*3/uL Normal 0.0-0.45 [facility] Comment on above: Performed By: #### A 1C [facility] Narda, CMP #### [place] [address] [place] Eosinophils/100 WBC (Bld) 0.1 % Normal . [facility] Comment on above: Performed By: #### A 1C [facility] Narda, CMP #### [address] Erythrocyte distribution width (RBC) [Ratio] 12.9 % Normal 11.9-15.3 [facility] Comment on above: Performed By: #### A 1C [facility] Narda, CMP #### [address] Hematocrit (Bld) [Volume fraction] 41.6 % Normal 34.0-46.4 [facility] Comment on above: Performed By: #### A Treva YEE eA CMP #### [facility] [address] Hemoglobin (Bld) [Mass/Vol] 14.1 g/dL Normal 11.8-15.4 [facility] Comment on above: Performed By: #### A Treva YEE eA, CMP #### [address] Lymphocytes (Bld) [#/Vol] 1.1 10*3/uL Normal 1.00-4.8 [facility] Comment on above: Performed By: #### A Treva YEE eA CMP #### [address] Lymphocytes/100 WBC (Bld) 15.5 % Normal . [facility] Comment on above: Performed By: #### A Treva YEE eA CMP #### [address] MCH (RBC) [Entitic mass] 29.9 pg Normal 24.7-34.3 [facility] Comment on above: Performed By: #### A Treva YEE eA CMP #### [address] MCV (RBC) [Entitic vol] 87.8 fL Normal 80-100 [facility] Comment on above: Performed By: #### A Treva YEE eA CMP #### [address] Mean Corpuscular HGB Conc 34.0 g/dL Normal 32.0-35.0 [facility] Comment on above: Performed By: #### A Treva YEE eA CMP #### [address] Monocytes (Bld) [#/Vol] 0.3 10*3/uL Normal 0.0-0.8 [facility] Comment on above: Performed By: #### A Treva YEE eA, CMP #### [facility] [address] [place] [id number] [place] Monocytes/100 WBC (Bld) 17.76 % Normal 0.00-20.00 [facility] Comment on above: Performed By: #### A Treva YEE eA, CMP #### [facility] [address] [place] [id number] [place] Monocytes/100 WBC (Bld) 3.9 % Normal . [facility] Comment on above: Performed By: #### A Treva YEE eA, CMP #### [facility] [address] [place] [address] [place] Neutrophils (Bld) [#/Vol] 5.6 10*3/uL Normal 1.8-7.7 [facility] Comment on above: Performed By: #### A Treva YEE eA, CMP #### [facility] [address] [place] [address] [place] Neutrophils/100 WBC (Bld) 80.0 % Normal . [facility] Comment on above: Performed By: #### A Treva YEE eA, CMP #### [facility] [address] [place] [address] [place] NRBC% 0.0 /100{WBC} Normal 0-0.5 [facility] Comment on above: Performed By: #### A Treva YEE eA, CMP #### [facility] [address] [place] [address] [place] Platelet mean volume (Bld) [Entitic vol] 7.9 fL Normal 6.3-10.7 [facility] Comment on above: Performed By: #### A Treva YEE eA, CMP #### [facility] [address] [place] [id number] [place] Platelets (Bld) [#/Vol] 292 10*3/uL Normal 150-450 [facility] Comment on above: Performed By: #### A Treva YEE eA, CMP #### [facility] [address] [place] [address] [place] RBC (Bld) [#/Vol] 4.74 10*6/uL Normal 3.60-5.00 [facility] Comment on above: Performed By: #### A Treva YEE eA, CMP #### [address] WBC (Bld) [#/Vol] 7.0 10*3/uL Normal 3.8-11.6 [facility] Comment on above: Performed By: #### A Treva YEE eA CMP #### [address] Comprehensive Metabolic Pane chito 05-25-2023 Albumin [Mass/Vol] 4.4 g/dL Normal 3.5-5.7 [facility] Comment on above: Performed By: #### A Treva YEE eA CMP #### [address] Albumin/Globulin [Mass ratio] 1.5 {ratio} Normal [facility] Comment on above: Performed By: #### A Treva YEE eA CMP #### [address] ALP [Catalytic activity/Vol] 48 U/L Normal 34-104 [facility] Comment on above: Performed By: #### A Treva YEE eA CMP #### [address] ALT [Catalytic activity/Vol] 14 U/L Normal 7-52 [facility] Comment on above: Performed By: #### A Treva YEE eA CMP #### [address] Anion gap [Moles/Vol] 10.1 mmol/L Normal 6.0-15.0 [facility] Comment on above: Performed By: #### A Treva YEE eA CMP #### [address] AST [Catalytic activity/Vol] 21 U/L Normal 13-39 [facility] Comment on above: Performed By: #### A Treva YEE eA CMP #### [address] Bilirubin [Mass/Vol] 0.8 mg/dL Normal 0.3-1.0 [facility] Comment on above: Performed By: #### A Treva YEE eA CMP #### [address] Calcium [Mass/Vol] 10.1 mg/dL Normal 8.6-10.3 [facility] Comment on above: Performed By: #### A Treva YEE eA, CMP #### [address] Chloride [Moles/Vol] 102 mmol/L Normal 98-107 [facility] Comment on above: Performed By: #### A Treva YEE eA CMP #### [address] CO2 [Moles/Vol] 29.6 mmol/L Normal 21.0-31.0 [facility] Comment on above: Performed By: #### A Treva YEE eA CMP #### [address] Creatinine [Mass/Vol] 0.76 mg/dL Normal 0.60-1.20 [facility] Comment on above: Performed By: #### A Treva YEE eA CMP #### [address] Creatinine Clr Calc Pharmacy 59.72 [facility] Comment on above: Result Comment: PERF ORMED BY: [place] [address] PATHOLOGIST [employer] E[employer]ING M.D. Performed By: #### A Treva YEE eA CMP #### [address] GFR/1.73 sq M.predicted MDRD (S/P/Bld) [Vol rate/Area] mL/min/{1.73_m2} [facility] Comment on above: Performed By: #### A Treva YEE eA CMP #### [place] [address] [place] Globulin (S) [Mass/Vol] 2.9 g/dL Normal [facility] Comment on above: Performed By: #### A 1C NAKIA Laboy, CMP #### [facility] [address] Glucose [Mass/Vol] 120 mg/dL High 70-100 [facility] Comment on above: Result Comment: [facility] Glucose Reference Range is dependent on time and content of last meal. Glucose of more than 200 mg/dL in a nonstressed, ambulatory subject supports the diagnosis of Diabetes Mellitus. ADA recommended reference range Performed By: #### A 1C NAKIA Laboy, CMP #### [facility] [address] Potassium [Moles/Vol] 3.7 mmol/L Normal 3.5-5.1 [facility] Comment on above: Performed By: #### A 1C WTBrigitte Laboy, CMP #### [facility] [address] Protein [Mass/Vol] 7.3 g/dL Normal 6.4-8.9 [facility] Comment on above: Performed By: #### A 1C WTBrigitte Laboy, CMP #### [facility] [address] Sodium [Moles/Vol] 138 mmol/L Normal 136-145 [facility] Comment on above: Performed By: #### A 1C WTBrigitte Laboy, CMP #### [facility] [address] [place] [address] [place] Urea nitrogen [Mass/Vol] 12 mg/dL Normal 7-25 [facility] Comment on above: Performed By: #### A 1C WT Narda, CMP #### [facility] [address] [place] [id number] [place] Creatinine [Mass/volume] in Serum or PlasmaOrdered By: Robert Caruso on 05-25-2023 Creatinine [Mass/Vol] 0.76 mg/dL 0.60-1.20 [facility] Drug Screen,Urineon 05-25-19 24 Amphetamine Screen,Urine Negative Normal Negative [facility] Comment on above: Performed By: #### U HCG, URDS #### [place] [address] [place] Barbiturate Screen,Urine Negative Normal Negative [facility] Comment on above: Performed By: #### U HCG, URDS #### [place] [address] [place] Benzodiazepines Screen,Urine Negative Normal Negative [facility] Comment on above: Performed By: #### U HCG, URDS #### [place] [address] [place] Cannabinoid Screen,Urine Negative Normal Negative [facility] Comment on above: Result Comment: Thes e are unconfirmed results and should not be used for legal purposes. Drug Cut-Off Concentration: AMPH 1000 ng/mL GABRIELA 200 ng/mL SIVA 200 ng/mL COCM 300 ng/mL OP 300 ng/mL PCP 25 ng/mL THC 20 ng/mL PERFORMED BY: [place] [address] PATHOLOGIST [employer] E[employer] SPRING M.D. Performed By: #### U HCG, URDS #### [place] [address] [place] Cocaine Screen,Urine Negative Normal Negative [facility] Comment on above: Performed By: #### U HCG, URDS #### [place] [address] [place] Opiate Screen,Urine Negative Normal Negative [facility] Comment on above: Performed By: #### U HCG, URDS #### [place] [address] [place] Phencyclidine Screen,Urine Negative Normal Negative [facility] Comment on above: Performed By: #### U HCG, URDS #### [place] [address] [place] ECG 12 lead ECGon 05-25-2023 ECG 12 lead ECG [facility] [place] [address] [place] [address] Electrocardiograph Report Signed Patient: Yoaan Bullock MR#: [id number] 21 : 1955 Acct:[id number] Age/Sex: 67 / F ADM Date: 05/25/23 Loc: Room: [address] [place] [address] Type: ADM IN Attending Dr: Sridhar Hoffman [...] previous ECGs available Confirmed by Fidel Flood ([id number]) on 05/25/2023 5:09:43 PM Referred By: Electronically Signed By:Fidel Flood Transcribed By: MUS Signed By Fidel Flood MD 05/25/23 1709 Normal [facility] Eosinophils Auto (Bld) [#/Vo l]Ordered By: Robert Caruso on 05-25-2023 Eosinophils (Bld) [#/Vol] 0.0 10*3/uL 0.0-0.45 [facility] Eosinophils/100 WBC Auto (Bl d)Ordered By: Robert Caruso on 05-25-2023 Eosinophils/100 WBC (Bld) 0.1 % . [facility] Erythrocyte distribution wid th Auto (RBC) [Ratio]Ordered By: Robert Caruso on 05-25-2023 Erythrocyte distribution width (RBC) [Ratio] 12.9 % 11.9-15.3 [facility] Ethanol [Mass/volume] in Ser um or PlasmaOrdered By: Robert Caruso on 05-25-2023 Ethanol [Mass/Vol] mg/dL [facility] Ethanol [Mass/Vol] TNP [facility] Comment on above: Test not performed Ethyl Alcohol Profileon Ethanol [Mass/Vol] mg/dL Normal [facility] Comment on above: Performed By: #### A 1C [facility] eA, CMP #### [address] Percent Ethanol Not performed Normal [facility] Comment on above: Result Comment: PERF ORMED BY: [place] [address] PATHOLOGIST [employer] ELE SPRING M.D. Performed By: #### A 1C WTH eA, CMP #### [facility] [address] [place] [id number] [facility] Globulin Calc (S) [Mass/Vol] Ordered By: Robert Caruso on 05-25-2023 Globulin (S) [Mass/Vol] 2.9 g/dL [facility] Glucose [Mass/volume] in Ser um or PlasmaOrdered By: Robert Caruso on 05-25-2023 Glucose [Mass/Vol] 120 mg/dL 70-100 [facility] Comment on above: ADA recommended refe rence rangeRandom Glucose Reference Range is dependent on time and content of last meal. Glucose of more than 200 mg/dL in a nonstressed, ambulatory subject supports the diagnosis of Diabetes Mellitus. HCG ( test) IA.rapi d Ql (U)Ordered By: Robert Caruso on 05-25-2023 HCG ( test) Ql (U) Negative [facility] HCG,Urineon 05-25-2023 Beta HCG ( test) Ql (U) Negative Normal [facility] Comment on above: Result Comment: PERF ORMED BY: [place] [address] PATHOLOGIST [employer] E[employer]ING M.D. Performed By: #### U HCG, URDS #### [facility] [address] [place], [place] [id number] [facility] Hematocrit Auto (Bld) [Volum e fraction]Ordered By: Robert Caruso on 05-25-2023 Hematocrit (Bld) [Volume fraction] 41.6 % 34.0-46.4 [facility] Hemoglobin [Mass/volume] in BloodOrdered By: Robert Caruso on 05-25-2023 Hemoglobin (Bld) [Mass/Vol] 14.1 g/dL 11.8-15.4 [facility] Leukocytes [#/volume] correc gage for nucleated erythrocytes in Blood by Automated counOrdered By: Robert Caruso on 05-25-2023 WBC corrected for nucl RBC Auto (Bld) [#/Vol] 7.0 10*3/uL 3.8-11.6 [facility] Lymphocytes Auto (Bld) [#/Vo l]Ordered By: Robert Caruso on 05-25-2023 Lymphocytes (Bld) [#/Vol] 1.1 10*3/uL 1.00-4.8 [facility] Lymphocytes/100 WBC Auto (Bl d)Ordered By: Robert Caruso on 05-25-2023 Lymphocytes/100 WBC (Bld) 15.5 % . [facility] MCH Auto (RBC) [Entitic mass ]Ordered By: Robert Caruso on 05-25-2023 MCH (RBC) [Entitic mass] 29.9 pg 24.7-34.3 [facility] MCHC Auto (RBC) [Mass/Vol]Or dered By: Robert Caruso on 05-25-2023 MCHC (RBC) [Mass/Vol] 34.0 g/dL 32.0-35.0 [facility] MCV Auto (RBC) [Entitic vol] Ordered By: Robert Caruso on 05-25-2023 MCV (RBC) [Entitic vol] 87.8 fL 80-100 [facility] Monocyte distribution width [Entitic volume] in Blood by AutomatedOrdered By: Robert Caruso on 05-25-2023 Monocyte distribution width Auto (Bld) [Entitic vol] 17.76 % 0.00-20.00 [facility] Monocytes Auto (Bld) [#/Vol] Ordered By: Robret Caruso on 05-25-2023 Monocytes (Bld) [#/Vol] 0.3 10*3/uL 0.0-0.8 [facility] Monocytes/100 WBC Auto (Bld) Ordered By: Robert Caruso on 05-25-2023 Monocytes/100 WBC (Bld) 3.9 % . [facility] Neutrophils Auto (Bld) [#/Vo l]Ordered By: Robert Caruso on 05-25-2023 Neutrophils (Bld) [#/Vol] 5.6 10*3/uL 1.8-7.7 [facility] Neutrophils/100 WBC Auto (Bl d)Ordered By: Robert Caruso on 05-25-2023 Neutrophils/100 WBC (Bld) 80.0 % . [facility] No Panel InformationOrdered By: Robert Caruso on 05-25-2023 Estimated GFR (CKD-EPI) > 60.0 mL/Min [facility] Creatinine Clearance (Chem 59.72 [facility] Nucleated erythrocytes [Pres ence] in Blood by Automated countOrdered By: Robert Caruso on 05-25-2023 Nucleated RBC Auto Ql (Bld) 0.0 /100{WBC} 0-0.5 [facility] Opiates [Presence] in Urine by Screen methodOrdered By: Robert Caruso on 05-25-2023 Opiates Screen Ql (U) Negative Negative [facility] Phencyclidine Screen Ql (U)O rdered By: Robert Caruso on 05-25-2023 Phencyclidine Ql (U) Negative Negative [facility] Platelet mean volume Auto (B ld) [Entitic vol]Ordered By: Robert Caruso on 05-25-2023 Platelet mean volume (Bld) [Entitic vol] 7.9 fL 6.3-10.7 [facility] Platelets Auto (Bld) [#/Vol] Ordered By: Robert Caruso on 05-25-2023 Platelets (Bld) [#/Vol] 292 10*3/uL 150-450 [facility] Potassium [Moles/volume] in Serum or PlasmaOrdered By: Robert Caruso on 05-25-2023 Potassium [Moles/Vol] 3.7 mmol/L 3.5-5.1 [facility] Protein [Mass/volume] in Ser um or PlasmaOrdered By: Robert Caruso on 05-25-2023 Protein [Mass/Vol] 7.3 g/dL 6.4-8.9 [facility] RBC Auto (Bld) [#/Vol]Ordere d By: Robert Caruso on 05-25-2023 RBC (Bld) [#/Vol] 4.74 10*6/uL 3.60-5.00 [facility] Serum or plasma albumin/glob ulin mass ratioOrdered By: Robert Caruso on 05-25-2023 Albumin/Globulin [Mass ratio] 1.5 {ratio} [facility] Serum or plasma anion gap de terminationOrdered By: Robert Caruso on 05-25-2023 Anion gap [Moles/Vol] 10.1 mmol/L 6.0-15.0 [facility] Sodium [Moles/volume] in Ser um or PlasmaOrdered By: Robert Caruso on 05-25-2023 Sodium [Moles/Vol] 138 mmol/L 136-145 [facility] Urea nitrogen [Mass/volume] in Serum or PlasmaOrdered By: Robert Caruso on 05-25-2023 Urea nitrogen [Mass/Vol] 12 mg/dL 7-25 [facility] WBC Auto (Bld) [#/Vol]Ordere d By: Robert Caruso on 05-25-2023 WBC (Bld) [#/Vol] 7.0 10*3/uL 3.8-11.6 [facility] .Fentanyl Scrn wo Conf,Uron 05-20-2023 Ur Fentanyl Scrn Negative Normal NEG <1.0 [facility] Comment on above: Performed By: #### C [id number] #### [place] [address] Ur Fentanyl Scrn Qnt 0.10 ng/mL Normal <=0.99 [facility] Comment on above: Performed By: #### C [id number] #### [place] [address] .eGFRon 05-20-2023 GFR/1.73 sq M.predicted MDRD (S/P/Bld) [Vol rate/Area] mL/min/{1.73_m2} Normal >=60 [facility] Comment on above: Result Comment: [facility] Laboratories have implemented the eGFR calculation [...] years Performed By: #### E GFR #### [place] [address] CBC w/ Diffon 05-20-2023 Erythrocyte distribution width (RBC) [Ratio] 13.2 % Normal 11.6-14.8 [facility] Comment on above: Performed By: #### C BC #### [place] [id number] Hematocrit (Bld) [Volume fraction] 40.9 % Normal 36.0-46.0 [facility] Comment on above: Performed By: #### C BC #### [place] [id number] Hemoglobin (Bld) [Mass/Vol] 13.9 g/dL Normal 12.0-16.0 [facility] Comment on above: Performed By: #### C BC #### [place] [id number] MCH (RBC) [Entitic mass] 30.1 pg Normal 27.0-35.0 [facility] Comment on above: Performed By: #### C BC #### [place] [id number] MCHC 34.1 % Normal 31.0-37.0 [facility] Comment on above: Performed By: #### C BC #### [place] [id number] MCV (RBC) [Entitic vol] 88.2 fL Normal 80.0-100.0 [facility] Comment on above: Performed By: #### C BC #### [address] [address] Platelet 250 x10*3/mcL Normal 150-450 [facility] Comment on above: Performed By: #### C BC #### [address] [address] Platelet mean volume (Bld) [Entitic vol] 7.6 fL Normal 6.7-10.6 [facility] Comment on above: Performed By: #### C BC #### [address] [address] RBC 4.63 x10*6/mcL Normal 3.80-5.20 [facility] Comment on above: Performed By: #### C BC #### [address] [address] WBC 5.6 x10*3/mcL Normal 4.5-11.0 [facility] Comment on above: Performed By: #### C BC #### [address] [address] CMPon 05-20-2023 Albumin [Mass/Vol] 4.5 g/dL Normal 3.2-4.9 [facility] Comment on above: Performed By: #### C OMP #### [address] [address] Albumin/Globulin [Mass ratio] 1.4 {ratio} Normal 1.1-2.2 [facility] Comment on above: Performed By: #### C OMP #### [address] [address] Alk Phos 47 IU/L Normal 32-91 [facility] Comment on above: Performed By: #### C OMP #### [address] [address] ALT [Catalytic activity/Vol] 18 U/L Normal 14-54 [facility] Comment on above: Performed By: #### C OMP #### [address] [place] [address] Anion gap [Moles/Vol] 14 mmol/L Normal 7-17 [facility] Comment on above: Performed By: #### C OMP #### [address] [place] [address] AST [Catalytic activity/Vol] 28 U/L Normal 15-41 [facility] Comment on above: Performed By: #### C OMP #### [address] [place] [address] Bili Total 0.8 mg/dL Normal 0.3-1.2 [facility] Comment on above: Performed By: #### C OMP #### [address] [place] [address] Calcium [Mass/Vol] 10.1 mg/dL Normal 8.5-10.3 [facility] Comment on above: Performed By: #### C OMP #### [address] [place] [address] Chloride [Moles/Vol] 100 mmol/L Normal 98-110 [facility] Comment on above: Performed By: #### C OMP #### [address] [place] [address] CO2 [Moles/Vol] 27 mmol/L Normal 22-32 [facility] Comment on above: Performed By: #### C OMP #### [address] [place] [address] Creatinine [Mass/Vol] 0.96 mg/dL Normal 0.44-1.03 [facility] Comment on above: Performed By: #### C OMP #### [address] [place] [address] Glucose [Mass/Vol] 116 mg/dL High 70-99 [facility] Comment on above: Performed By: #### C OMP #### [address] [place] [address] Potassium [Moles/Vol] 4.0 mmol/L Normal 3.4-4.8 [facility] Comment on above: Performed By: #### C OMP #### [facility] [facility] [address] [place] [address] Protein [Mass/Vol] 7.8 g/dL Normal 6.5-8.1 [facility] Comment on above: Performed By: #### C OMP #### [address] [address] Sodium [Moles/Vol] 137 mmol/L Normal 133-142 [facility] Comment on above: Performed By: #### C OMP #### [address] [address] Urea nitrogen [Mass/Vol] 13 mg/dL Normal 8-26 [facility] Comment on above: Performed By: #### C OMP #### [address] [address] Urea nitrogen/Creatinine [Mass ratio] 13.5 mg/mg Normal 10.0-20.0 [facility] Comment on above: Performed By: #### C OMP #### [address] [address] [address] Brain w/o Contraston CT Brain w/o [...] or other acute finding. Radiation Dose Estimate: CTDI(mGy):0.804604 / / / kVp:120.520502 / mAs:0.754459 / / / DLP(mGy-cm):5.60204 0Body Part: Head CTDI(mGy):44.738562 / / / kVp:120.413851 / mAs:182.971502 / / / DLP(mGy-cm):813.330 017Body Part: Head Final Dictated by: Tremayne Butler MD Dictated DT/TM: 05.20.2023 2:48 pm Signed by: Tremayne Butler MD Signed (Electronic Signature): 05.20.2023 2:50 pm (If Report Is Signed, Electronically Signed in Other Vendor System) Normal [facility] Diff Autoon 05-20-2023 Baso Absolute 0.0 x10*3/mcL Normal 0.0-0.2 [facility] Comment on above: Performed By: #### . Automated Diff #### [address] [address] Basophils/100 WBC (Bld) 0.5 % Normal 0.0-1.5 [facility] Comment on above: Performed By: #### . Automated Diff #### [address] [address] Eos Absolute 0.0 x10*3/mcL Normal 0.0-0.4 [facility] Comment on above: Performed By: #### . Automated Diff #### [address] [address] Eosinophils/100 WBC (Bld) 0.4 % Normal 0.0-5.4 [facility] Comment on above: Performed By: #### . Automated Diff #### [address] [address] Lymph Absolute 1.3 x10*3/mcL Normal 1.0-4.8 [facility] Comment on above: Performed By: #### . Automated Diff #### [address] [address] Lymphocytes/100 WBC (Bld) 22.8 % Low 27.2-40.8 [facility] Comment on above: Performed By: #### . Automated Diff #### [address] [address] Kern Absolute 0.3 x10*3/mcL Normal 0.1-1.1 [facility] Comment on above: Performed By: #### . Automated Diff #### [place] [id number] Monocytes/100 WBC (Bld) 5.2 % Normal 3.7-11.9 [facility] Comment on above: Performed By: #### . Automated Diff #### [place] [id number] Neutro Absolute 4.0 x10*3/mcL Normal 1.8-7.7 [facility] Comment on above: Performed By: #### . Automated Diff #### [place] [address] Neutro Auto 71.1 % High 47.2-70.8 [facility] Comment on above: Performed By: #### . Automated Diff #### [address] [address] ED Clinical Summaryon 2023 [place] [address] ED Clinical Summary Person [facility] Age: 67 Years : 1955 Sex: Female PCP: Remigio Simpson MD Marital Status: Phone: Race: White Ethnicity: Not or Language: Wolof [facility]: [id number] Visit Reason: Psychiatric screening exam; psych screen Acuity: 2 Enc Type: Emergency Med Service: Emergency Medicine Arrival: 05/20/2023 13:12:08 Discharge: 05/20/2023 17:38:00 LOS: 000 04:26 Checkin: 05/20/2023 13:12:08 Checkout: 05/20/2023 17:38:00 Dispo Type: Home or Self Care Address: [facility] [address] [place] [id number] Provider Notes: Diagnosis: 1:Encounter for medical screening [...] range between ( 27.2 and 40.8 ) Kern Auto: 5.2 % -- Normal range between [...] range between ( 36.0 and 46.0 ) Kern Absolute: 0.3 x10 MCH: 30.1 pg -- [...] MD ED Provider 05/20/2023 13:39:39 Mary ROGERS, Sehrri Wiggins ED Provider 05/20/2023 15:28:08 Follow up: With: Address: When: [facility] With: Address: When: Remigio Simpson [address] [place] [phone] Business (1) Within 1 week Discharge Orders: Discharge Patient 05/20/23 17:30:00 EST, Discharge to Home, Self Patient Education Information: Anxiety Reaction [facility] Poison Help line: . [facility] Hotline: [place] Tobacco Quit Line: [place], [place]) [address]: [phone] [place], [place]) [address]: (more content not included)... Normal [facility] ED Note-Nursingon 05-20-2023 ED Note-Nursing Patients reports patient had covid 04/21/23 and most of her symptoms are stemming from that; increased memory loss, confusion, weight loss, panic attacks. Patient did take Paxlovid. Patient [facility] and taken off Xanax as they felt her hallucinations could be from that, and they prescribed hydroxizine. Patient appears anxious upon nurse practitioner home assessments and tearful at times. Patient denies SI and HI but is frustrated that she is having these issues and is not her normal self. Electronically signed by Odalys Munroe 05/20/23 14:33 EST Normal [facility] ED Note-Physicianon 05-20-19 ED Note-Physician Chief [...] High Lymph Auto 05/20/23 15:21 22.8 Low Kern Auto 05/20/23 15:21 5.2 Eos Auto 05/20/23 15:21 0.4 Basophil Auto 05/20/23 15:21 0.5 Neutro Absolute 05/20/23 15:21 4.0 Lymph Absolute 05/20/23 15:21 1.3 Kern Absolute 05/20/23 15:21 0.3 Eos Absolute 05/20/23 [...] Sherri Hernandez MD 05/25/23 20:00 EST Normal [facility] ED Note-Physician Chief Complaint pt was [...] will obtain a CT head and have manager social work speak with the patient she was sent in by her therapist that she describes it Sign out to Dr. Hernandez at the end of my shift for disposition and manager social work recommendation Assessment/Plan Psychiatric screening exam (Complaint of) [...] 7.0 Diagnostic Results Electronically signed by Anuj Gilbetr MD (more content not included)... Normal [facility] Ethanolon 05-20-2023 Ethanol, Plasma <10 Normal <=9 [facility] Comment on above: Result Comment: To c onvert mg/dL to g/dL, divide result by 1,000. Legal limit of intoxication is 80 mg/dL (0.08 g/dL). Performed By: #### A LC #### [place] [address] UDS Compon 05-20-2023 Creatinine [Mass/Vol] 100.2 mg/dL Normal [facility] Comment on above: Performed By: #### C [id number] #### [address] [address] Ur Amph Scrn Negative Normal NEG = <1000 [facility] Comment on above: Performed By: #### C D:[id number] #### [address] [address] Ur Gabriela Scrn Negative Normal NEG = <200 [facility] Comment on above: Performed By: #### C [id number] #### [address] [address] Ur Benzodia Scrn Negative Normal NEG = <200 [facility] Comment on above: Performed By: #### C [id number] #### [address] [address] Ur Cannab Scrn Negative Normal NEG = <50 [facility] Comment on above: Performed By: #### C D:[id number] #### [address] [address] Ur Cocaine Scrn Negative Normal NEG = <300 [facility] Comment on above: Performed By: #### C D:[id number] #### [address] [address] Ur Methadone Scn Negative Normal NEG = <300 [facility] Comment on above: Performed By: #### C D:[id number] #### [address] [address] Ur Opiate Scrn Negative Normal NEG = <300 [facility] Comment on above: Performed By: #### C D:[id number] #### [address] [address] Ur Oxy Screen Negative Normal NEG = <100 [facility] Comment on above: Performed By: #### C D:[id number] #### [address] [address] Ur Oxy Scrn Qnt 9 ng/mL Normal <=99 [facility] Comment on above: Performed By: #### C D:[id number] #### [address] [address] Ur PCP Scrn Negative Normal NEG = <25 [facility] Comment on above: Performed By: #### C D:[id number] #### [address] [address] UA pH 7.0 Normal 4.5 - 7.8 [facility] Comment on above: Performed By: #### C D:[id number] #### [address] [address] UA Spec Grav 1.013 Normal 1.003-1.035 [facility] Comment on above: Performed By: #### C D:[id number] #### [address] [address] Outside Colonoscopyon 2022 Outside Colonoscopy [id number] D#1.00CD:127 Normal [facility] Reminderson 01-28-2023 Reminders -- From: Sarah Griffiths LPN To: N - Clinical; Sent: 01/28/2023 13:00:59 EDT Show up: 12/27/2032 07:00:00 EDT Subject: colonoscopy recall Due Date/Time: 01/27/2033 07:00:00 EDT Reminder/Recall Patient due for screening colonoscopy 01/27/2033. Normal [facility] Consent for Procedure/Surger yon 01-12-2023 Consent for Procedure/Surgery [id number] FD#1.00CD:127 Normal [facility] Ambulatory Visit Summaryon 0 01-08-2023 Ambulatory [...] longer receiving treatment for. Carpal tunnel Normal [facility] RAD - CT Reporton 01-07-2023 RAD - CT Report [id number] 29#1.00CD:127 Normal [facility] Physician Referralon 023 Physician Referral [id number] 73#1.00CD:127 Normal [facility] CBC AUTO DIFFon 09-10-2022 BASO # 0.0 103/ul Normal 0.0-0.1 [facility] Comment on above: Performed By: #### C BC #### [facility] [address] [place] [address] Dr. Jess Marie Basophils/100 WBC (Bld) 0.4 % Normal 0.2-2.0 [facility] Comment on above: Performed By: #### C BC #### [facility] [address] [place] [address] [address] Jess Marie EO # 0.0 103/ul Normal 0.0-0.7 [facility] Comment on above: Performed By: #### C BC #### [facility] [address] [place] [address] [address] Jess Marie Eosinophils/100 WBC (Bld) 0.4 % Critically low 0.9-7.0 [facility] Comment on above: Performed By: #### C BC #### [facility] [address] [place] [address] [address] Jess Marie Erythrocyte distribution width (RBC) [Ratio] 12.5 % Normal 11.0-15.0 [facility] Comment on above: Performed By: #### C BC #### [facility] [address] [place] [address] Dr. Jess Marie Hematocrit (Bld) [Volume fraction] 43.1 % Normal 36.0-48.0 [facility] Comment on above: Performed By: #### C BC #### [facility] [address] [place] [address] Dr. Jess Marie Hemoglobin (Bld) [Mass/Vol] 14.0 g/dL Normal 12.0-16.0 [facility] Comment on above: Performed By: #### C BC #### [facility] [address] [place] [address] Dr. Jess Marie IG # 0.01 10e3/ul Normal 0.00-0.03 [facility] Comment on above: Performed By: #### C BC #### [facility] [address] [place] [address] Dr. Jess Marie IG % 0.2 % Normal 0.0-0.5 [facility] Comment on above: Performed By: #### C BC #### [facility] [address] [place] [address] Dr. Jess Marie LYMPH # 1.4 103/ul Normal 1.2-3.8 [facility] Comment on above: Performed By: #### C BC #### [facility] [address] [place] [address] Dr. Jess Marie Lymphocytes/100 WBC (Bld) 26.8 % Normal 20.5-60.0 [facility] Comment on above: Performed By: #### C BC #### [facility] [address] [place] [address] Dr. Jess Marie MANUAL DIFF REQ NO Normal [facility] Comment on above: Performed By: #### C BC #### [facility] [address] [place] [address] Dr. Jess Marie MCH (RBC) [Entitic mass] 29.7 pg Normal 26.7-34.0 [facility] Comment on above: Performed By: #### C BC #### [facility] [address] [place] [address] Dr. Jess Marie MCHC (RBC) [Mass/Vol] 32.5 g/dL Normal 29.9-35.2 [facility] Comment on above: Performed By: #### C BC #### [facility] [address] [place] [address] Dr. Jess Marie MCV (RBC) [Entitic vol] 91.3 fL Normal 81.0-99.0 [facility] Comment on above: Performed By: #### C BC #### [facility] [address] [place] [address] [address] Jess Marie MONO # 0.3 103/ul Normal 0.3-0.8 [facility] Comment on above: Performed By: #### C BC #### [facility] [address] [place] [address] [address] Jess Marie Monocytes/100 WBC (Bld) 5.2 % Normal 1.7-12.0 [facility] Comment on above: Performed By: #### C BC #### [facility] [address] [place] [address] [address] Jess Marie NEUT # 3.5 103/ul Normal 1.4-6.5 [facility] Comment on above: Performed By: #### C BC #### [facility] [address] [place] [address] Dr. Jess Marie Neutrophils/100 WBC (Bld) 67.0 % Normal 43.0-75.0 [facility] Comment on above: Performed By: #### C BC #### [facility] [address] [place] [address] Dr. Jess Marie Platelet mean volume (Bld) [Entitic vol] 9.7 fL Normal 9.5-13.5 [facility] Comment on above: Performed By: #### C BC #### [facility] [address] [place] [address] Dr. Jess Marie PLT 230 103/ul Normal 150-450 [facility] Comment on above: Performed By: #### C BC #### [facility] [address] [place] [address] Dr. Jess Marie RBC 4.72 106/ul Normal 4.20-5.40 [facility] Comment on above: Performed By: #### C BC #### [facility] [address] [place] [address] Dr. Jess Marie WBC 5.2 103/ul Normal 4.0-11.0 [facility] Comment on above: Performed By: #### C BC #### [facility] [address] [place] [address] [address] Jess Marie GLYCOHEMOGLOBIN A1Con 2022 ADA RECOMMENDATION SEE BELOW Normal [facility] Comment on above: Result Comment: ADA RECOMMENDED LIMIT 4.0 - 6.0 ADA THERAPEUTIC TARGET < 7.0 ACTION SUGGESTED > 7.0 Performed By: #### A 1C #### [facility] [address] [place] [address] [address] Jess Marie Glucose [Mass/Vol] 123 mg/dL Normal [facility] Comment on above: Performed By: #### A 1C #### [facility] [address] [place] [address] [address] Jess Marie HbA1c (Bld) [Mass fraction] 5.9 % Normal 4.5-6.2 [facility] Comment on above: Performed By: #### A 1C #### [facility] [address] [place] [address] Dr. Jess Marie LIPID PROFILEon 09-10-2022 CHOL-HDL RATIO NORM SEE BELOW Normal [facility] Comment on above: Result Comment: 3.3 - 4.4 LOW RISK 4.4 - 7.1 AVERAGE RISK 7.1 - 11.0 MODERATE RISK >11.0 HIGH RISK Performed By: #### T SH, LIVER, BMP, LIPID #### [facility] [address] [place] [address] [address] Jess Marie Cholesterol [Mass/Vol] 267 mg/dL Critically high <=200 [facility] Comment on above: Performed By: #### T SH, LIVER, BMP, LIPID #### [facility] [address] [place] [address] [address] Jess Marie Cholesterol in HDL [Mass/Vol] 79 mg/dL Critically high 40-60 [facility] Comment on above: Performed By: #### T SH, LIVER, BMP, LIPID #### [facility] [address] [place] [address] [address] Jess Marie Cholesterol in LDL [Mass/Vol] 172.4 mg/dL Normal [facility] Comment on above: Performed By: #### T SH, LIVER, BMP, LIPID #### [facility] [address] [place] [address] [address] Jess Marie Cholesterol.total/Choles terol in HDL [Mass ratio] 3.4 {ratio} Normal [facility] Comment on above: Performed By: #### T SH, LIVER, BMP, LIPID #### [facility] [address] [place] [address] [address] Jess Marie HDL NORMAL > or = 60 mg/dl - LOW CARDIOVASCULAR RISK <40 mg/dl - HIGH CARDIOVASCULAR RISK Normal [facility] Comment on above: Performed By: #### T SH, LIVER, BMP, LIPID #### [facility] [address] [place] [address] [address] Jess Marie LDL CALC NORMAL SEE BELOW Normal [facility] Comment on above: Result Comment: <100 mg/dl OPTIMAL 100 - 129 mg/dl NEAR OR ABOVE OPTIMAL 130 - 159 mg/dl BORDERLINE HIGH 160 - 189 mg/dl HIGH >190 mg/dl VERY HIGH Performed By: #### T SH, LIVER, BMP, LIPID #### [facility] [address] [place] [address] [address] Jess Marie Triglyceride [Mass/Vol] 78 mg/dL Normal <=150 [facility] Comment on above: Performed By: #### T SH, LIVER, BMP, LIPID #### [facility] [address] [place] [address] [address] Jess Marie VLDL CALC 15.6 mg/dL Normal [facility] Comment on above: Performed By: #### T SH, LIVER, BMP, LIPID #### [facility] [address] [place] [address] [address] Jess Marie LIVER PROFILEon 09-10-2022 Albumin [Mass/Vol] 3.9 g/dL Normal 3.4-5.0 [facility] Comment on above: Performed By: #### T SH, LIVER, BMP, LIPID #### [facility] [address] [place] [address] [address] Jess Marie Albumin/Globulin [Mass ratio] 0.9 {ratio} Normal [facility] Comment on above: Performed By: #### T SH, LIVER, BMP, LIPID #### [facility] [address] [place] [address] [address] Jess Marie ALP [Catalytic activity/Vol] 61 U/L Normal 46-116 [facility] Comment on above: Performed By: #### T SH, LIVER, BMP, LIPID #### [facility] [address] [place] [address] [address] Jess Marie ALT [Catalytic activity/Vol] 25 U/L Normal 14-59 [facility] Comment on above: Performed By: #### T SH, LIVER, BMP, LIPID #### [facility] [address] [place] [address] [address] Jess Marie AST [Catalytic activity/Vol] 27 U/L Normal 15-37 [facility] Comment on above: Performed By: #### T SH, LIVER, BMP, LIPID #### [facility] [address] [place] [address] Dr. Jess Marie BILI, CONJUGATED 0.1 mg/dL Normal 0.0-0.2 [facility] Comment on above: Performed By: #### T SH, LIVER, BMP, LIPID #### [facility] [address] [place] [address] [address] Jess Marie Bilirubin [Mass/Vol] 0.7 mg/dL Normal 0.2-1.0 [facility] Comment on above: Performed By: #### T SH, LIVER, BMP, LIPID #### [facility] [address] [place] [address] [address] Jess Marie Globulin (S) [Mass/Vol] 4.2 g/dL Normal [facility] Comment on above: Performed By: #### T SH, LIVER, BMP, LIPID #### [facility] [address] [place] [address] [address] Jess Marie Protein [Mass/Vol] 8.1 g/dL Normal 6.4-8.2 [facility] Comment on above: Performed By: #### T SH, LIVER, BMP, LIPID #### [facility] [address] [place] [address] [address] Jess Marie PROF CHEM 8 (BAS METB)on Anion gap [Moles/Vol] 13.1 mmol/L Normal [facility] Comment on above: Performed By: #### T SH, LIVER, BMP, LIPID #### [facility] [address] [address] [address] Jess Marie Calcium [Mass/Vol] 9.6 mg/dL Normal 8.5-10.1 [facility] Comment on above: Performed By: #### T SH, LIVER, BMP, LIPID #### [facility] [address] [place] [address] [address] Jess Marie Chloride [Moles/Vol] 105 mmol/L Normal 98-107 [facility] Comment on above: Performed By: #### T SH, LIVER, BMP, LIPID #### [facility] [address] [place] [address] Dr. Jess Marie CO2 [Moles/Vol] 28.9 mmol/L Normal 21.0-32.0 [facility] Comment on above: Performed By: #### T SH, LIVER, BMP, LIPID #### [facility] [address] [place] [address] Dr. Jess Marie Creatinine [Mass/Vol] 0.62 mg/dL Normal 0.55-1.02 [facility] Comment on above: Performed By: #### T SH, LIVER, BMP, LIPID #### [facility] [address] [place] [address] Dr. Jess Marie EGFR-AF HAITIAN >60 Normal >=60 [facility] Comment on above: Performed By: #### T SH, LIVER, BMP, LIPID #### [facility] [address] [place] [address] Dr. Jess Marie EGFR-NON AF HAITIAN >60 Normal >=60 [facility] Comment on above: Performed By: #### T SH, LIVER, BMP, LIPID #### [facility] [address] [place] [address] Dr. Jess Marie Glucose [Mass/Vol] 112 mg/dL Critically high 74-106 [facility] Comment on above: Performed By: #### T SH, LIVER, BMP, LIPID #### [facility] [address] [address] [address] Jess Marie Potassium [Moles/Vol] 5.0 mmol/L Normal 3.5-5.1 [facility] Comment on above: Result Comment: spec imen slightly hemolyzed Performed By: #### T SH, LIVER, BMP, LIPID #### [facility] [address] [address] [address] Jess Marie Sodium [Moles/Vol] 142 mmol/L Normal 136-145 [facility] Comment on above: Performed By: #### T SH, LIVER, BMP, LIPID #### [facility] [address] [address] [address] Jess Marie Urea nitrogen [Mass/Vol] 15.0 mg/dL Normal 7.0-18.0 [facility] Comment on above: Performed By: #### T SH, LIVER, BMP, LIPID #### [facility] [address] [address] [address] Jess Marie Urea nitrogen/Creatinine [Mass ratio] 24.2 mg/mg Normal [facility] Comment on above: Performed By: #### T SH, LIVER, BMP, LIPID #### [facility] [address] [place] [address] Dr. Jess Marie TSHon 09-10-2022 TSH 1.518 uIU/mL Normal 0.358-3.740 [facility] Comment on above: Performed By: #### T SH, LIVER, BMP, LIPID #### [facility] [address] [place] [address] Dr. Jess Marie US CAROTID ART BILon [...] HERSON REBOLLEDO Date: 2022-09-10 12:26 Normal [facility] XR ABD FLAT_UPon 06-10-2022 XR ABD [...] HERSON REBOLLEDO Date: 2022-06-10 08:38 Normal [facility] Covid-19 PCR ([facility])on 10-16 SARS-CoV-2 (COVID-19) RNA YAYA+probe Ql (Unsp spec) Not detected Normal NOT DETECTED [facility] Comment on above: Result Comment: This test is not yet approved or cleared by the [place] FDA. When there are no FDA-approved or cleared tests available, and other criteria are met, FDA can make tests available under an emergency access mechanism called an Emergency Use Authorization (EUA). The EUA for this test is supported by the [place] of Health and Human Service's (HHS's) declaration [...] consistent with SARS-CoV-2. Performed By: #### C VDTB #### [facility] [address] [address] [address] Jess Marie Vital Signs Date Time Vital Sign Value Performing Clinician Faci lity 06-08-2023 07:30-0500 Body temperature 97.6 [degF] [facility] 06-08-2023 07:30-0500 Diastolic blood pressure 62 mm[Hg] [facility] 06-08-2023 07:30-0500 Heart rate 75 /min [facility] 06-08-2023 07:30-0500 Respiratory rate 16 /min [facility] 06-08-2023 07:30-0500 SaO2% (BldA) [Mass fraction] 97 % [facility] 06-08-2023 07:30-0500 Systolic blood pressure 110 mm[Hg] [facility] 06-07-2023 09:00-0500 Body weight 67.5 kg [facility] 06-04-2023 10:17-0500 Body height 166.37 cm [facility] 05-25-2023 14:29-0500 Diastolic blood pressure 80 mm[Hg] DO Robert Zuly Work Phone: [facility] 05-25-2023 14:29-0500 Heart rate 91 /min DO Robert Zuly Work Phone: [facility] 05-25-2023 14:29-0500 Respiratory rate 18 /min DO Robert Zuly Work Phone: [facility] 05-25-2023 14:29-0500 SaO2% (BldA) [Mass fraction] 98 % DO Robert Zuly Work Phone: [facility] 05-25-2023 14:29-0500 Systolic blood pressure 110 mm[Hg] DO Robert Zuly Work Phone: [facility] 05-25-2023 13:06-0500 Body temperature 98.3 [degF] DO Robert Zuly Work Phone: [facility] 05-25-2023 11:38-0500 Body height 165.1 cm DO Robert Zuly Work Phone: [facility] 05-25-2023 11:38-0500 Body weight 68.1 kg DO Robert Zuly Work Phone: [facility] 01-08-2023 13:49-0400 Diastolic blood pressure 94 mm[Hg] [facility] 01-08-2023 13:49-0400 Heart rate 80 /min [facility] 01-08-2023 13:49-0400 Respiratory rate 16 /min [facility] 01-08-2023 13:49-0400 Systolic blood pressure 136 mm[Hg] [facility] Encounters Encounter Date Encounter Type Care Provider Facility Start: 09-08-2023 End: 09-08-2023 ambulatory REI FRANZ Not Available Start: 09-06-2023 End: 09-06-2023 ambulatory REI FRANZ Not Available Start: 08-02-2023 End: 08-02-2023 ambulatory HERSON Dylan SALAZAR Not Available Start: 07-19-2023 End: 07-19-2023 ambulatory GRIMES DENISSE Not Available Start: 06-30-2023 Clinisync Result [...] Evaluation and management of inpatient Remigio Simpson Facility:[facility] Start: 05-25-2023 Evaluation and management of inpatient DO Robert Caruso Work Phone: [facility] Work Phone: Start: 05-25-2023 Non-patient / Non-visit [facility] Work Phone: Start: 05-25-2023 ambulatory Lionel Umana acility:[facility] Start: 05-20-2023 End: 05-20-2023 Emergency department patient visit Remigio Simpson MD Facility:[facility] Start: 01-27-2023 End: 01-28-2023 ambulatory Amor HOLLY Facility:CD:[id number] Start: 01-08-2023 End: 01-09-2023 ambulatory Amor HOLLY Facility: [facility] Start: 01-08-2023 End: 01-08-2023 Patient encounter procedure Amor HOLLY General Surgery Nill/Said [facility] Start: 12-30-2022 ambulatory Amor HOLLY Facility : [facility] Start: 09-10-2022 End: 09-11-[address] REMIGIO SIMPSON Facility:[facility] Start: 06-09-2022 End: 06-10-[address] REMIGIO SIMPSON Facility: Start: 03-12-2022 End: 03-13-[address] REMIGIO SIMPSON Facility:[facility] Start: 11-04-2021 End: 11-04-[address] REMIGIO SIMPSON Facility:[facility] Procedures Date Procedure Procedure Detail Performing Clinician Start: 06-30-2023 [facility] UA (CLEAN/CATCH) MICROSCOPIC IF INDICATE Remigio Simpson MD Work Phone: Start: 12-25-2020 Colonoscopy Amor CHOPRA Start: 06-29-2014 [...] procedure 09/06/2023 9:00 AM EDT Office Visit [facility] [address] [place] [address] Remigio Simpson MD [address] [place] [id number] [facility] Start: 06-30-2023 End: 06-30-2024 Bacteria identified in Urine by Culture Urine culture (clean catch) Microbiology Routine Dysuria Expected: 06/30/2023 (Approximate), Expires: 06/30/2024 [facility] Comment on above: Expected: 06/30/2023 (Approximate), Expires: 06/30/2024 Start: 06-30-2023 End: 06-30-2024 Urinalysis complete panel - Urine Urinalysis with reflex microscopic (clean catch) Lab Routine Dysuria Expected: 06/30/2023 (Approximate), Expires: 06/30/2024 [facility] Work Phone: Comment on above: Expected: 06/30/2023 (Approximate), Expires: 06/30/2024 Start: 06-08-2023 [facility] Start: 05-26-2023 Administration of prophylactic treatment [facility] Start: 05-25-2023 Hospital admission [facility] Start: 05-25-2023 [facility] Start: 03-09-2021 Pneumococcal Vaccine : 65+ Years (2 - PCV) Pneumococcal Vaccine: 65+ Years (2 - PCV) [facility] Start: 1993 Screening for malign ant neoplasm of breast Mammogram [facility] Start: 1955 Medicare Annual Well ness (AWV) Medicare Annual Wellness (AWV) [facility] Start: 1955 Screening for malign ant neoplasm of colon [facility] Patient Education Dementia (DC) [facility] Behavioral Health DC Instructions [facility] Work Phone: Patient referral [facility] Work Phone: Immunizations Immunization Date Immunization Notes Care Provider [facility] 03-17-2022 SARS-CoV-2 (COVID-19 ) [id number] Amor NILL [facility] 10-05-2021 SARS-CoV-2 mRNA (zhiyadlryrh-qbve-mbhhy se) vaccine Amor NILL [facility] 03-06-2021 SARS-CoV-2 (COVID-19 ) mRNA BNT-162b2 vax Amor NILL [facility] 07-30-2020 SARS-CoV-2 (COVID-19 ) mRNA BNT-162b2 vax [facility] N[facility] Comment on above: Result Comment: 2022: [id number] 07-09-2020 SARS-CoV-2 (COVID-19 ) mRNA BNT-162b2 vax Amor NILL [facility] Comment on above: Result Comment: 2022: [id number] Payers Date Payer Category Payer Self-pay 2018 Medicare 2014 Unknown 1959 Medicare [id number] 1959 Unknown [id number] 1955 Unknown [id number] 2.16.84 [id number] 1953 Unknown [id number] 2.16.84 0.1.394760.3.579.2.593 1953 Unknown [id number] 2.16.84 0.1.238843.3.579.2.593 1953 Unknown [id number] 2.16.84 0.1.191565.3.579.2.593 1953 Unknown [id number] 2.16.8 40.1.728384.3.579.2.727 1953 Unknown [id number] 2.16.8 40.1.659507.3.579.2.727 1953 Unknown [id number] 2.16.8 40.1.104938.3.579.2.727 1953 Unknown [id number] 2.16. 840.1.785900.3.579.2.196 1953 Unknown [id number] 2.16.84 0.1.821544.3.579.2.1259 1953 Unknown [id number] 2.16.84 0.1.591020.3.579.2.1259 1953 Unknown [id number] 2.16.84 0.1.377610.3.579.2.1259 1953 Unknown [id number] 2.16.84 0.1.905897.3.579.2.1259 1953 Unknown [id number] 2.16.84 0.1.596512.3.579.2.1259 Unknown [id number] 2.16.8 40.1.827545.3.579.2.531 Unknown [id number] 2.16.8 40.1.503593.3.579.2.531 Social History Date Type Detail Facility Start: 01-08-2023 End: 06-09-2023 Tobacco smoking status Never smoked tobacco (finding) [facility] Tobacco smoking status Never Gener [facility] Start: 06-09-2023 Sex Assigned At Female F [facility] Start: 1955 Sex Assigned At Female [facility] Start: 06-09-2023 Tobacco use and exposure Smokeless tobacco non-user [facility] Start: 06-09-2023 Alcohol intake [facility]er [facility] Start: 06-09-2023 History of Social function [facility] Start: 12-31-2022 Education [facility] Start: 1955 Sex Assigned At Not on file N [facility] Functional Status Date Assessment Result Facility 01-08-2023 Functional Status N/A [facility] Clinical Notes 03-12-2022 to 06-30-2023 Telephone Encounter - Remigio Simpson MD - 06/30/2023 12:26 PM ESTTelephone Encounter - Remigio Simpson MD - 06/30/2023 12:26 PM EST Note Date & Type Note Facility 06-30-2023 Telephone encounter Note Patient with increased confusion and concerned of UTI. Please fax orders to [facility]. [facility] 06-30-2023 Miscellaneous Notes Patient with increased confusion and concerned of UTI. Please fax orders to [facility]. documented in this encounter [facility] 06-08-2023 Hospital Discharg e instructions Additional Instructions Important Contact Information You can call [facility] Inpatient Behavioral Health at [phone] any time day or night if you have emergent questions or question regarding discharge instructions. If at any time you are feeling an increase in your psychiatric symptoms, call your physician or behavioral healthcare provider. If any time you have thoughts of harming yourself or others contact one of the following: Call 98-8 (available 07/12) Crisis Text Line (available 07/12) text 4HOPE to [phone] [facility] (available 8 a.m. Midnight) call [phone] ([phone]) [facility] Work Phone: 01-08-2023 Note Chief Complaint consultation for change in bowel habits HPI Staff 67 year old female presents on consultation from Dr. Naderer for change in bowel habits. Reports she [...] Use:. Household tobacco (more content not included)... [facility] Comment on above: Result Comment: Elec [...] by: HERSON REBOLLEDO Date: 2022-03-12 18:14 [facility] Evaluation + Plan note No data available for this section [facility] Evaluation note No assessment inform ation available [facility] Work Phone: Evaluation note Diagnosis Onset Date Anxiety acute Confusion acute Depression acute Major neurocognitive disorder acute Suicidal ideation acute [facility] Work Phone: Evaluation note* Diagnosis Recurrent UTI- Primary Urinary tract infection, site not specified DALILA (generalized anxiety disorder) (CMS/HCC) Generalized anxiety disorder Neck pain Cervicalgia MDD (major depressive disorder), recurrent episode, mild (HCC) (CMS/HCC) [facility] Diagnosis Dysuria- Primary documented in this encounter [facility] Author Sridhar Hoffman [facility] May 26, 2023 12:28pm Note Date/Time May 26, 2023 1 2:28pm [facility] [address] [place] [address] Psychiatry H&P Signed Patient: Yoana Bullock MR#: [id number] : 1955 Acct:[id number] Age/Sex: 67 / F Adm Date: 4 Loc: Room: [address] [place] [address] Type: ADM IN Attending Dr: Sridhar Hoffman [...] denied current suicidality Insight: fair Judgment: fair [facility] Medical History (Updated 05/26/23 @ 12:28 [...] <Electronically signed by Sridhar Hoffman MD> 05/26/23 9860 [facility] Work Phone: Hospital Discharge instructions No data available for this section General Surgery [facility] note No data available for this section [facility] Reason for referral (narrative)* Consultation (Routine) - Pending Review Specialty Diagnoses / Procedures Referred By Linda crocker Referred To Contact Urology Diagnoses Recurrent UTI Procedures MD OFFICE/OUTPATIENT NEW HIGH MDM 60 MINUTES Remigio Simpson MD [address] [place] [address] Amor Arcos MD [address] [place] [address] Referral ID Status Reason Start Date Expiration Date Visits Requested Visits Authorized [id number] Pending Review Specialty Services Required 06/29/2023 12/26/2023 1 1 [facility] Summary Purpose Family History No Family [...] content) DATE CREATED AUTHOR 09/17/2022 [facility] DATE CREATED AUTHOR AUTHOR'S ORGANIZ ATION 02/17/2023 [facility] DATE CREATED AUTHOR AUTHOR'S ORGANIZ ATION 05/26/2023 [facility] DATE CREATED AUTHOR AUTHOR'S ORGANIZ ATION 08/05/2023 [facility] DATE CREATED AUTHOR AUTHOR'S ORGANIZ ATION 09/09/2023 [facility] Special[facility] EPIC Patient Care team [...] Attending Provider Active Start: May 25, 2023 [employer] Relationship Specialty Start Date End Date Remigio Simpson MD PCP - General Family Medicine 05/17/22 [employer] Relationship Specialty Start Date End Date Remigio Simpson MD PCP - General Family Medicine 05/17/22 [employer] Relationship Specialty Start Date End Date Remigio [...] BE BASED ON THE PRIMARY CLINICAL RECORDS. [facility]. provides no warranty or guarantee of the accuracy or completeness of information in this document.
[2023-09-10 09:39] LABS: Anion Gap 10.5; BUN Creatinine Ratio 12.7; Carbon Dioxide 31.3 mmol/L (21.0-32.0); Chloride 104 mmol/L (98-107); Estimated GFR (African America >60 (>=60); Estimated GFR (Non-African Ame >60 (>=60); Glucose 108 mg/dL (74-106); Potassium 3.8 mmol/L (3.5-5.1); Sodium 142 mmol/L (136-145)
== END 2023-09-10 08:17 | disposition home or self-care (01) ==
LOC: LAB 08:16
PROVIDERS: PCP Family Medicine; Visit Provider Family Medicine
DX: Z79.899 Other long term (current) drug therapy (principal); F03.90 Unspecified dementia, unspecified severity, without behavioral disturbance, psychotic disturbance, mood disturbance, and anxiety; G93.41 Metabolic encephalopathy; R53.1 Weakness; E44.0 Moderate protein-calorie malnutrition
CPT/HCPCS: 36415; 80048

== ENCOUNTER 2023-09-14 07:59 | Outpatient (OUT) | payer MEDICARE, OTHER, SELFPAY ==
--- NOTE | 2023-09-14 08:03 | CT_ITS ---
[address] [address] Patient Name: DONNIE BULLOCK MRN: [id number] date: 1955 Sex: F Assigned Patient Location: CT Current Patient Location: CT Accession/Order Number: [id number] Exam Date: 09/14/2023 09:20 Report Date: 09/14/2023 12:53 At the request of: REI FRANZ Procedure: CT abdomen pelvis wo/w con EXAMINATION: CT chest wo/w con, CT abdomen pelvis wo/w con HISTORY: Rapidly Progressive Dementia, Generalized Weakness COMPARISON: 12/30/2022 TECHNIQUE: Axial, Coronal, and Sagittal CT images were obtained without and with IV contrast. Dose reduction techniques were achieved by using automated exposure control and/or adjustment of mA and/or kV according to patient size and/or use of iterative reconstruction technique. FINDINGS: LUNGS: No visible pulmonary disease. PLEURA: No mass or effusion. VASCULATURE: No visible pulmonary arterial thrombus or attenuation. OSMANI: No mass or adenopathy. MEDIASTINUM: No mass or adenopathy. CARDIAC: No enlargement, pericardial thickening, or pericardial effusion. CHEST WALL: No mass or axillary adenopathy. LIVER: No enlargement, atrophy, abnormal density, or significant focal lesion. BILIARY: No dilatation or calcification. PANCREAS: No lesion, fluid collection, ductal dilatation, or atrophy. SPLEEN: No enlargement or focal lesion. ADRENALS: No mass or enlargement. KIDNEYS: Normal right. 2 left renal nonenhancing cysts one measuring 1 cm a second measuring 8.9 cm deforming the left lateral kidney BOWEL/MESENTERY: No visible mass, obstruction, or bowel wall thickening. AORTA/VASCULAR: No aortic aneurysm. Mild calcific atherosclerosis RETROPERITONEUM: No mass or adenopathy. ABDOMINAL WALL: No mass or hernia. BONES: No bony lesion or fracture. OTHER: Negative. CT/CT abdomen pelvis wo/w con IMPRESSION: No acute abnormality of the chest, abdomen or pelvis Electronically authenticated by: KRYS NELOSN Date: 09/14/2023 12:53
--- NOTE | 2023-09-14 08:03 | CT_ITS ---
[address] [address] Patient Name: DONNIE BULLOCK MRN: [id number] date: 1955 Sex: F Assigned Patient Location: CT Current Patient Location: CT Accession/Order Number: [id number] Exam Date: 09/14/2023 09:20 Report Date: 09/14/2023 12:53 At the request of: REI FRANZ Procedure: CT chest wo/w con EXAMINATION: CT chest wo/w con, CT abdomen pelvis wo/w con HISTORY: Rapidly Progressive Dementia, Generalized Weakness COMPARISON: 12/30/2022 TECHNIQUE: Axial, Coronal, and Sagittal CT images were obtained without and with IV contrast. Dose reduction techniques were achieved by using automated exposure control and/or adjustment of mA and/or kV according to patient size and/or use of iterative reconstruction technique. FINDINGS: LUNGS: No visible pulmonary disease. PLEURA: No mass or effusion. VASCULATURE: No visible pulmonary arterial thrombus or attenuation. OSMANI: No mass or adenopathy. MEDIASTINUM: No mass or adenopathy. CARDIAC: No enlargement, pericardial thickening, or pericardial effusion. CHEST WALL: No mass or axillary adenopathy. LIVER: No enlargement, atrophy, abnormal density, or significant focal lesion. BILIARY: No dilatation or calcification. PANCREAS: No lesion, fluid collection, ductal dilatation, or atrophy. SPLEEN: No enlargement or focal lesion. ADRENALS: No mass or enlargement. KIDNEYS: Normal right. 2 left renal nonenhancing cysts one measuring 1 cm a second measuring 8.9 cm deforming the left lateral kidney BOWEL/MESENTERY: No visible mass, obstruction, or bowel wall thickening. AORTA/VASCULAR: No aortic aneurysm. Mild calcific atherosclerosis RETROPERITONEUM: No mass or adenopathy. ABDOMINAL WALL: No mass or hernia. BONES: No bony lesion or fracture. OTHER: Negative. CT/CT chest wo/w con IMPRESSION: No acute abnormality of the chest, abdomen or pelvis Electronically authenticated by: KRYS NELSON Date: 09/14/2023 12:53
== END 2023-09-14 08:00 | disposition home or self-care (01) ==
LOC: CT 07:59
PROVIDERS: PCP Family Medicine; Visit Provider Psychiatry & Neurology Neurology
DX: F03.90 Unspecified dementia, unspecified severity, without behavioral disturbance, psychotic disturbance, mood disturbance, and anxiety (principal); G93.41 Metabolic encephalopathy; R53.1 Weakness; E44.0 Moderate protein-calorie malnutrition
CPT/HCPCS: 71270; 74178; Q9967

== ENCOUNTER 2023-09-28 15:54 | Outpatient (OUT) | payer MEDICARE, OTHER, SELFPAY ==
[2023-09-28 16:06] LABS: Bilirubin Urine NEGATIVE (NEGATIVE); Blood Urine NEGATIVE (NEGATIVE); Clarity Urine CLEAR (CLEAR); Color Urine YELLOW (YELLOW); Glucose Urine UA NEGATIVE (NEGATIVE); Ketones Urine TRACE mg/dL (NEGATIVE); Leukocyte Esterase Urine NEGATIVE (NEGATIVE); Nitrite Urine NEGATIVE (NEGATIVE); Protein Urine NEGATIVE (NEG/TRACE); Urobilinogen Urine 0.2 EU/dL (0.2-1.0)
--- OUTSIDE RECORDS SUMMARY | 2023-09-28 16:08 | XMS_ITS | CCD ---
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 Name Role Phone CALVIN, DR REMIGIO Richardson [...] Consulting Unavailable NADERER, REMIGIO Primary Care Physician [phone] AVNI, Amor Pollock Attending Unavailable NADERER, REMIGIO Referring Unavailable NILL, Amor Pollock Attending Unavailable NADERER, REMIGIO Referring Unavailable NILL, Amor Pollock Attending Unavailable Naderer Remigio ROGERS Primary Care Unavail vinay Gilbert MD, Anuj Orta Attending DO Robert Oliver Emergency Provider MD Remigio Simpson Primary Care Provider [phone] MD Sridhar Hoffman Admit Provider MD Sridhar Hoffman Attending Provider Remigio Simpson MD Primary Care Provider [phone] MD Remigio Simpson Primary Care Provider [phone] DO Good Garcia Emergency Provider MD Sridhar Hoffman Admit Provider MD Sridhar Hoffman Attending Provider [phone] REMIGIO SIMPSON Attending Unavailable SHAIKH SALCEDO Attending Unavailable HERSON SALAZAR Attending Unavailable REI FRANZ Attending Unavailable REI FRANZ Referring Unavailable MONICA SILVER Attending Unavailable REI FRANZ Referring Unavailable Sridhar Hoffman Admitting Unavailable Remigio Simpson Primary Care Unavailable Sridhar Hoffman Attending Unavailable Remigio Simpson Primary Care Unavailable Sridhar Hoffman Attending Unavailable Sridhar Hoffman Admitting Unavailable Remigio Simpson Primary Care Unavailable Lionel Still Attending Unavailab le Lionel Still Admitting Unavailab le Medications Current Medications Medication Drug Class(es) Dates Sig (Normalized) Sig (Original) haloperidol 0.5 mg oral tablet (6 sources) Typical Antipsychotic Start: 09-22-2023 take 0.5 mg by mouth once daily Haloperidol Active 0.5 MG PO Daily 15 September 22, 2023 12:00am Start: 09-22-2023 take 1 mg by mouth once daily Haloperidol Active 1 MG PO Daily with supper September 22, 2023 12:00am Start: 09-14-2023 Haloperidol Ac tive 0.5 MG PO every 4 to 5 hours September 14, 2023 12:00am Start: 09-14-2023 End: 09-22-2023 take 0.5 mg by mouth twice daily Haloperidol Discontinued 0.5 MG PO Twice daily September 14, 2023 12:00am September 22, 2023 10:00am 8am and 5pm hydrOXYzine hydrochloride 25 mg oral tablet (5 sources) Antihistamine Start: 09-14-2023 take 25 mg by mouth twice daily Hydroxyzine Hcl Active 25 MG PO Twice daily September 14, 2023 12:00am 11am and 6pm Start: 05-25-2023 take 1 tablet by palmer th four times daily as needed for anxiety hydrOXYzine HCl (Atarax) 25 MG tablet Indications: DALILA (generalized anxiety disorder) (CMS/FORMERLY [facility]) TAKE 1 TABLET (25 MG) BY MOUTH 4 (FOUR) TIMES A DAY NEEDED FOR ANXIETY 360 tablet 2 05/25/2023 Active lactulose 667 mg/ml oral solution (1 source) Osmotic Laxative Start: 09-15-2023 take 1 mL by mouth twice daily Lactulose Active 30 ML PO Twice daily September 15, 2023 12:00am melatonin 10 mg extended release oral tablet (2 sources) Start: 09-14-2023 take 10 mg by mouth once daily at bedtime Melatonin Active 10 MG PO Daily at bedtime September 14, 2023 12:00am mirtazapine 7.5 mg oral tablet (7 sources) Start: 06-08-2023 End: 06-29-2023 take 7.5 mg by mouth once daily at bedtime Mirtazapine Active 7.5 MG PO Daily at bedtime June 08, 2023 1:00am morphine sulfate 20 mg/ml oral solution (2 sources) Opioid Agonist Start: 09-14-2023 Morphine Concentrate Active 5 MG PO EVERY 1-2 HOURS September 14, 2023 12:00am ondansetron 4 mg disintegrating oral [...] or vomiting 30 tablet 3 06/22/2023 Active Sennosides (Senna) 8.6 mg capsule (2 sources) Start: 09-14-2023 take 2 capsules by mouth twice daily Sennosides (Senna) 8.6 mg capsule Active 17.2 MG PO Twice daily September 14, 2023 12:00am Start: 09-14-2023 take 1 capsule by [facility] twice daily Sennosides (Senna) 8.6 mg capsule Active 8.6 MG PO Twice daily September 14, 2023 12:00am wheat dextrin 3000 mg powder for oral solution (1 source) Start: 01-08-2023 Benefiber 100% oral powder as needed for constipation, Refill(s) 0 Start Date: 01/08/23 Status: Ordered Completed/Discontinued Medications Medication Drug Class(es) Dates Sig (Normalized) Sig (Original) meloxicam 7.5 mg oral tablet (8 sources) Nonsteroidal Anti-inflammatory Drug Start: 05-25-2023 End: 09-14-2023 take 7.5 mg by mouth once daily Meloxicam Discontinued 7.5 MG PO Daily May 25, 2023 1:00am September 14, 2023 10:32pm risperiDONE 0.25 mg oral tablet (14 sources) Atypical Antipsychotic Start: 06-08-2023 End: 09-14-2023 take 0.25 mg by mouth at bedtime Risperidone Discontinued 0.25 MG PO Bedtime June 08, 2023 1:00am September 14, 2023 10:33pm Start: 06-08-2023 End: 09-14-2023 take 1 mg by mouth twice daily Risperidone Discontinue d 1 MG PO Twice daily June 08, 2023 1:00am September 14, 2023 10:33pm Problems Active Problems Problem Classification Problem Date Documented Da te Episodic/Chronic Abdominal pain (1 source) Generalized abdominal pain 01-04-2023 Episodic Anxiety disorders (11 sources) Generalized anxiety disorder; Translations: [Anxiety] Onset: 3 01-04-2023 Chronic Cardiac dysrhythmias (4 sources) Paroxysmal supraventricular tachycardia; Translations: [Paroxysmal supraventricular tachycardia] Onset: 2 01-04-2023 Chronic Delirium, dementia, and amnestic and other cognitive disorders (6 sources) Dementia; Translations: [Unspecified dementia without behavioral [...] [Asthenia] Onset: 3 06-09-2023 Episodic Mood disorders (9 sources) Depressive disorder; Translations: [Depression] Onset: 4 05-25-2023 Chronic Mood disorders (2 sources) Mood disorders; Translations: [Depression, unspecified] Onset: 4 Other aftercare (1 source) Other residential (current) drug therapy; Translations: [OTH DYE MAKER CURRENT DRUG THERAPY] Onset: 3 Episodic Other aftercare (3 sources) Patient encounter status; Translations: [Other residential (current) drug therapy] Onset: 3 05-11-2023 Episodic [...] STROKE] Onset: 3 Episodic Residual codes; unclassified (3 sources) Confusional state; Translations: [Disorientation, unspecified] 05-31-2023 Episodic Schizophrenia and other psychotic disorders (1 source) Unspecified psychosis not due to a substance or known physiological condition; Translations: [Unspecified psychosis not due to a substance or known physiological condition] Onset: 4 Chronic Spondylosis; intervertebral disc disorders; other back problems (4 sources) Cervical disc disorder; Translations: [Degeneration of cervical intervertebral disc] Onset: 4 01-04-2023 Chronic Suicide and intentional self-inflicted injury (6 sources) Suicidal thoughts; Translations: [Suicidal ideations] 05-25-2023 [...] [PAIN IN RIGHT ELBOW] Onset: 03-12-2022 Episodic Residual codes; unclassified (2 sources) Disorientation, unspecified; Translations: [Unspecified psychosis] Onset: 05-25-2023 05-25-2023 Episodic Spondylosis; intervertebral disc disorders; other back problems (4 sources) Neck pain; Translations: [Cervicalgia] Onset: 12-31-2022 06-29-2023 Episodic Unclassified (1 source) CONTACT W/AND (SUSP) EXPOS COVID-19; Translations: [CONTACT W/AND (SUSP) EXPOS COVID-19] Onset: 11-04-2021 Unclassified (1 source) Entire carpal canal (body structure) 01-04-2023 Comment on above: had left done Results Test Name Value Interpretation Reference Range Facility Cholesterol [Mass/volume] in Serum or PlasmaOrdered By: Sridhar Hoffman on 09-15-2023 Cholesterol [Mass/Vol] 205 mg/dL 140-200 [facility] Comment on above: Chol less than 200 m g/dl low riskChol 201-239 mg/dl borderline riskChol 240 mg/dl and greater high risk Cholesterol in LDL Calc [Mas s/Vol]Ordered By: Sridhar Hoffman on 09-15-2023 Cholesterol in LDL [Mass/Vol] 122 mg/dL 0-100 [facility] Comment on above: LDL ATP III CLASSIFI CATIONLDL less than 100 mg/dL OptimalLDL 100-129 mg/dL Near or above optimalLDL 130-159 mg/dL Borderline highLDL 160-189 mg/dL HighLDL greater than 189 mg/dL Very high Cholesterol in VLDL Calc [Ma ss/Vol]Ordered By: Sridhar Hoffman on 09-15-2023 Cholesterol in VLDL [Mass/Vol] 20 mg/dL [facility] ECG 12 lead ECGon 09-15-2023 ECG 12 lead ECG [facility] [address] Electrocardiograph Report Signed Patient: Donnie Bullock MR#: [id number] 21 : 1955 Acct:[id number] Age/Sex: 67 / F ADM Date: 09/14/23 Loc: Room: [address] [place] [address] Type: ADM IN Attending Dr: Sridhar Hoffman MD Ordering Provider: Sridhar Hoffman MD Date of Service: 09/15/2306/09/499 ECG/ECG 12 lead ECG: baseline for psych meds Copies to: Test Reason : Blood Pressure : / mmHG Vent. Rate : 079 BPM Atrial Rate : 079 BPM P-R Int : 146 ms QRS Dur : 072 ms QT Int : 368 ms P-R-T Axes : 062 024 056 degrees QTc Int : 421 ms Normal sinus rhythm Normal ECG When compared with ECG of 25-MAY-2023 16:22, No significant change was found Confirmed by DESTINEE YORK MD, FACC ([id number]) on 09/15/2023 3:08:00 PM Referred By: Electronically Signed By:DESTINEE YORK MD FACC Transcribed By: MUS Signed By Destinee York MD, [facility] 09/15/23 1508 Normal [facility] Lipid Panelon 09-15-2023 Cholesterol [Mass/Vol] 205 mg/dL High 140-200 [facility] Comment on above: Result Comment: Chol less than 200 mg/dl low risk Chol 201-239 mg/dl borderline risk Chol 240 mg/dl and greater high risk Performed By: #### E KATERIN LAMBERT, CBC #### [facility] [address] [id number] [facility] Cholesterol in HDL [Mass/Vol] 62 mg/dL Normal 23-92 [facility] Comment on above: Result Comment: HDL CHOL ATP-III CLASSIFICATION Cardiovascular Risk HDL > or equal to 60 mg/dL LOW HDL < 40 mg/dL HIGH Performed By: #### E KATERIN LAMBERT, CBC #### [facility] [address] [id number] [place] Cholesterol.total/Mandie sterol in HDL [Mass ratio] 3.3 {ratio} Normal <5.0 [facility] Comment on above: Performed By: #### E KATERIN LAMBERT, CBC #### [facility] [address] [phone] [place] LDL Cholesterol,Calculated 122 mg/dL High 0-100 [facility] Comment on above: Result Comment: LDL ATP III CLASSIFICATION LDL less than 100 mg/dL Optimal LDL 100-129 mg/dL Near or above optimal LDL 130-159 mg/dL Borderline high LDL 160-189 mg/dL High LDL greater than 189 mg/dL Very high Performed By: #### E KATERIN LAMBERT, CBC #### [facility] [address] [id number] [place] Triglyceride w/Reflex 103 mg/dL Normal 0-149 [facility] Comment on above: Result Comment: TRIG ATP III CLASSIFICATION TRIG less than 150 mg/dL Normal TRIG 150-199 mg/dL Borderline high TRIG 200-500 mg/dL High TRIG greater than 500 mg/dL Very high Standard traceable to the Center for Disease Conrtrol and Prevention (CDC) test method. Performed By: #### E KATERIN LAMBERT, CBC #### [facility] [address] [phone] [place] VLDL CHOLESTEROL 20 mg/dL Normal [facility] Comment on above: Performed By: #### E FAUSTO, CMP, CBC #### [facility] [address] Serum or plasma high density lipoprotein (HDL) cholesterol measurementOrdered By: Sridhar Hoffman on 09-15-2023 Cholesterol in HDL [Mass/Vol] 62 mg/dL 23-92 [facility] Comment on above: HDL CHOL ATP-III CLA SSIFICATION Cardiovascular RiskHDL > or equal to 60 mg/dL LOWHDL < 40 mg/dL HIGH Serum or plasma total choles terol/high density lipoprotein (HDL) cholesterol mass ratOrdered By: Sridhar Hoffman on 09-15-2023 Cholesterol.total/Mandie sterol in HDL [Mass ratio] 3.3 {ratio} <5.0 [facility] Thyroid Stim Hormone w/Rflxo n 09-15-2023 Thyroid Stim Hormone w/Rflx 3.99 u[iU]/mL Normal 0.45-5.33 [facility] Comment on above: Performed By: #### E FAUSTO CMP, CBC #### [facility] [address] Thyrotropin [Units/volume] i n Serum or PlasmaOrdered By: Sridhar Hoffman on 09-15-2023 TSH Qn 3.99 m[IU]/L 0.45-5.33 [facility] Triglyceride [Mass/volume] i n Serum or PlasmaOrdered By: Sirdhar Hoffman on 09-15-2023 Triglyceride [Mass/Vol] 103 mg/dL 0-149 [facility] Comment on above: TRIG ATP III CLASSIF ICATIONTRIG less than 150 mg/dL NormalTRIG 150-199 mg/dL Borderline highTRIG 200-500 mg/dL High TRIG greater than 500 mg/dL Very highStandard traceable to the Center for Disease Conrtrol and Prevention (CDC) test method. Vitamin D 25 Hydroxy Totalon 09-15-2023 Vitamin D 25 Hydroxy Total 22.0 ng/mL Low 30-100 [facility] Comment on above: Result Comment: HUSAM MIN D STATUS 25(OH)VITAMIN D RANGE (ng/mL) Deficient <20 Insufficient 20 to <30 Sufficient 30 to 100 Reference: Monica Cantu, Fabrizio HA, et al. Evaluation,treatment, and prevention of vitamin D deficiency; an Endocrine Society clinical practice guideline. JCEM. 2010; 96(7):1911-. PERFORMED BY: [facility] [address] [place] [address] PATHOLOGIST JUNIOR PROGRAMMER ELE SPRING M.D. Performed By: #### E FAUSTO, CMP, CBC #### [facility] [address] Vitamin D+Metabolites [Mass/ volume] in Serum or PlasmaOrdered By: Sridhar Hoffman on 09-15-2023 Vitamin D+Metabolites [Mass/Vol] 22.0 ng/mL 30-100 [facility] Comment on above: VITAMIN D STATUS 25( [place])VITAMIN D RANGE (ng/mL) Deficient <20 Insufficient 20 to <30Sufficient 30 to 100Reference: Monica Cantu, Fabrizio HA, et al. Evaluation,treatment, and prevention of vitamin D deficiency; an Endocrine Society clinical practice guideline. JCEM. 2010; 96(7):1911-. Alanine aminotransferase [En zymatic activity/volume] in Serum or PlasmaOrdered By: Good Garcia on 09-14-2023 ALT [Catalytic activity/Vol] 20 U/L 7-52 [facility] Albumin [Mass/volume] in Ser um or Plasma by Bromocresol green (BCG) dye binding methoOrdered By: oGod Garcia on 09-14-2023 Albumin BCG dye [Mass/Vol] 4.0 g/dL 3.5-5.7 [facility] Alkaline phosphatase [Enzyma tic activity/volume] in Serum or PlasmaOrdered By: Good Garcia on 09-14-2023 ALP [Catalytic activity/Vol] 43 U/L 34-104 [facility] Amphetamine Screen Ql (U)Ord ered By: Good Garcia on 09-14-2023 Amphetamines Ql (U) Negative Negative [facility] Aspartate aminotransferase [ Enzymatic activity/volume] in Serum or PlasmaOrdered By: Good Garcia on 09-14-2023 AST [Catalytic activity/Vol] 18 U/L 13-39 [facility] Barbiturates [Presence] in U rine by Screen methodOrdered By: Good Garcia on 09-14-2023 Barbiturates Screen Ql (U) Negative Negative [facility] Basophils Auto (Bld) [#/Vol] Ordered By: Good Garcia on 09-14-2023 Basophils (Bld) [#/Vol] 0.0 10*3/uL 0.0-0.2 [facility] Basophils/100 WBC Auto (Bld) Ordered By: Good Garcia on 09-14-2023 Basophils/100 WBC (Bld) 0.6 % . [facility] Benzodiazepines Screen Ql (U )Ordered By: Good Garcia on 09-14-2023 Benzodiazepines Ql (U) Negative Negative [facility] Benzoylecgonine [Presence] i n Urine by Screen methodOrdered By: Good Garcia on 09-14-2023 Benzoylecgonine Screen Ql (U) Negative Negative [facility] Bilirubin Test strip Ql (U)O rdered By: Good Garcia on 09-14-2023 Bilirubin Ql (U) Negative Negative [facility] Bilirubin.total [Mass/volume ] in Serum or PlasmaOrdered By: Good Garcia on 09-14-2023 Bilirubin [Mass/Vol] 0.4 mg/dL 0.3-1.0 [facility] Calcium [Mass/volume] in Ser um or PlasmaOrdered By: Good Garcia on 09-14-2023 Calcium [Mass/Vol] 9.8 mg/dL 8.6-10.3 [facility] Cannabinoids [Presence] in U rine by Screen methodOrdered By: Good Garcia on 09-14-2023 Cannabinoids Screen Ql (U) Negative Negative [facility] Comment on above: These are unconfirme d results and should not be used for legal purposes. Drug Cut-Off Concentration: AMPH 1000 ng/mL GABRIELA 200 ng/mL SIVA 200 ng/mL COCM 300 ng/mL OP 300 ng/mL PCP 25 ng/mL THC 20 ng/mL Carbon dioxide, total [Moles /volume] in Serum or PlasmaOrdered By: Good Garcia on 09-14-2023 CO2 [Moles/Vol] 31.2 mmol/L 21.0-31.0 [facility] Chloride [Moles/volume] in S anupam or PlasmaOrdered By: Good Garcia on 09-14-2023 Chloride [Moles/Vol] 103 mmol/L 98-107 [facility] Color Auto (U)Ordered By: Ronak Garcia on 09-14-2023 Color (U) Yellow Yellow [facility] Complete Blood Count Auto Di ffon 09-14-2023 Basophils (Bld) [#/Vol] 0.0 10*3/uL Normal 0.0-0.2 [facility] Comment on above: Result Comment: PERF ORMED BY: [place] [address] PATHOLOGIST JUNIOR PROGRAMMER ELE SPRING M.D. Performed By: #### E FAUSTO, CMP, CBC #### [address] Basophils/100 WBC (Bld) 0.6 % Normal . T jennifer [facility] Comment on above: Performed By: #### E FAUSTO, CMP, CBC #### [address] Eosinophils (Bld) [#/Vol] 0.1 10*3/uL Normal 0.0-0.45 [facility] Comment on above: Performed By: #### E FAUSTO, CMP, CBC #### [address] Eosinophils/100 WBC (Bld) 1.0 % Normal . [facility] Comment on above: Performed By: #### E FAUSTO, CMP, CBC #### [address] Erythrocyte distribution width (RBC) [Ratio] 13.0 % Normal 11.9-15.3 [facility] Comment on above: Performed By: #### E FAUSTO, CMP, CBC #### [address] Hematocrit (Bld) [Volume fraction] 35.7 % Normal 34.0-46.4 [facility] Comment on above: Performed By: #### E KATERIN LAMBERT, CBC #### [address] Hemoglobin (Bld) [Mass/Vol] 12.1 g/dL Normal 11.8-15.4 [facility] Comment on above: Performed By: #### E KATERIN LAMBERT, CBC #### [address] Lymphocytes (Bld) [#/Vol] 1.7 10*3/uL Normal 1.00-4.8 [facility] Comment on above: Performed By: #### E KATERIN LAMBERT, CBC #### [address] Lymphocytes/100 WBC (Bld) 31.5 % Normal . [facility] Comment on above: Performed By: #### E KATERIN LAMBERT, CBC #### [address] MCH (RBC) [Entitic mass] 30.4 pg Normal 24.7-34.3 [facility] Comment on above: Performed By: #### E KATERIN LAMBERT, CBC #### [address] MCV (RBC) [Entitic vol] 89.6 fL Normal 80-100 [facility] Comment on above: Performed By: #### E KATERIN LAMBERT, CBC #### [address] Mean Corpuscular HGB Conc 34.0 g/dL Normal 32.0-35.0 [facility] Comment on above: Performed By: #### E KATERIN LAMBERT, CBC #### [address] Monocytes (Bld) [#/Vol] 0.4 10*3/uL Normal 0.0-0.8 [facility] Comment on above: Performed By: #### E KATERIN LAMBERT, CBC #### [facility] [address] [id number] [place] Monocytes/100 WBC (Bld) 16.08 % Normal 0.00-20.00 [facility] Comment on above: Performed By: #### E FAUSTO, CMP, CBC #### [facility] [address] [phone] [place] Monocytes/100 WBC (Bld) 7.5 % Normal . [facility] Comment on above: Performed By: #### E FAUSTO, CMP, CBC #### [place] [address] [place] Neutrophils (Bld) [#/Vol] 3.1 10*3/uL Normal 1.8-7.7 [facility] Comment on above: Performed By: #### E FAUSTO, CMP, CBC #### [place] [address] [place] Neutrophils/100 WBC (Bld) 59.4 % Normal . [facility] Comment on above: Performed By: #### E FAUSTO, CMP, CBC #### [place] [address] [place] NRBC% 0.1 /100{WBC} Normal 0-0.5 [facility] Comment on above: Performed By: #### E FAUSTO, CMP, CBC #### [place] [address] [place] Platelet mean volume (Bld) [Entitic vol] 7.3 fL Normal 6.3-10.7 [facility] Comment on above: Performed By: #### E FAUSTO, CMP, CBC #### [facility] [address] [id number] [place] Platelets (Bld) [#/Vol] 246 10*3/uL Normal 150-450 [facility] Comment on above: Performed By: #### E FAUSTO, CMP, CBC #### [place] [address] [place] RBC (Bld) [#/Vol] 3.98 10*6/uL Normal 3.60-5.00 [facility] Comment on above: Performed By: #### E KATERIN LAMBERT, CBC #### [address] WBC (Bld) [#/Vol] 5.3 10*3/uL Normal 3.8-11.6 [facility] Comment on above: Performed By: #### E KATERIN LAMBERT, CBC #### [address] Comprehensive Metabolic Pane chito 09-14-2023 Albumin [Mass/Vol] 4.0 g/dL Normal 3.5-5.7 [facility] Comment on above: Performed By: #### E KATERIN LAMBERT, CBC #### [address] Albumin/Globulin [Mass ratio] 1.8 {ratio} Normal [facility] Comment on above: Performed By: #### E KATERIN LAMBERT, CBC #### [address] ALP [Catalytic activity/Vol] 43 U/L Normal 34-104 [facility] Comment on above: Performed By: #### E KATERIN LAMBERT, CBC #### [address] ALT [Catalytic activity/Vol] 20 U/L Normal 7-52 [facility] Comment on above: Performed By: #### E KATERIN LAMBERT, CBC #### [address] Anion gap [Moles/Vol] 7.6 mmol/L Normal 6.0-15.0 [facility] Comment on above: Performed By: #### E KATERIN LAMBERT, CBC #### [address] AST [Catalytic activity/Vol] 18 U/L Normal 13-39 [facility] Comment on above: Performed By: #### E KATERIN LAMBERT, CBC #### [address] Bilirubin [Mass/Vol] 0.4 mg/dL Normal 0.3-1.0 [facility] Comment on above: Performed By: #### E KATERIN LAMBERT, CBC #### [address] Calcium [Mass/Vol] 9.8 mg/dL Normal 8.6-10.3 [facility] Comment on above: Performed By: #### E KATERIN LAMBERT, CBC #### [place] [address] [place] Chloride [Moles/Vol] 103 mmol/L Normal 98-107 [facility] Comment on above: Performed By: #### E KATERIN LAMBERT, CBC #### [address] CO2 [Moles/Vol] 31.2 mmol/L High 21.0-31.0 [facility] Comment on above: Performed By: #### E KATERIN LAMBERT, CBC #### [address] Creatinine [Mass/Vol] 0.61 mg/dL Normal 0.60-1.20 [facility] Comment on above: Performed By: #### E KATERIN LAMBERT, CBC #### [address] Creatinine Clr Calc Pharmacy 59.72 Normal [facility] Comment on above: Result Comment: PERF ORMED BY: [place] [address] PATHOLOGIST JUNIOR PROGRAMMER ELE SPRING M.D. Performed By: #### E KATERIN LAMBERT, CBC #### [place] [address] [place] GFR/1.73 sq M.predicted MDRD (S/P/Bld) [Vol rate/Area] mL/min/{1.73_m2} Normal [facility] Comment on above: Performed By: #### E KATERIN LAMBERT, CBC #### [place] [address] [place] Globulin (S) [Mass/Vol] 2.2 g/dL Normal T [facility] Comment on above: Performed By: #### E KATERIN LAMBERT, CBC #### [address] Glucose [Mass/Vol] 105 mg/dL High 70-100 [facility] Comment on above: Result Comment: [facility] Glucose Reference Range is dependent on time and content of last meal. Glucose of more than 200 mg/dL in a nonstressed, ambulatory subject supports the diagnosis of Diabetes Mellitus. ADA recommended reference range Performed By: #### E KATERIN LAMBERT, CBC #### [facility] [address] Potassium [Moles/Vol] 3.8 mmol/L Normal 3.5-5.1 [facility] Comment on above: Performed By: #### E KATERIN LAMBERT, CBC #### [address] Protein [Mass/Vol] 6.2 g/dL Low 6.4-8.9 [facility] Comment on above: Performed By: #### E KATERIN LAMBERT, CBC #### [address] Sodium [Moles/Vol] 138 mmol/L Normal 136-145 [facility] Comment on above: Performed By: #### E KATERIN LAMBERT, CBC #### [place] [address] [place] Urea nitrogen [Mass/Vol] 8 mg/dL Normal 7-25 [facility] Comment on above: Performed By: #### E KATERIN LAMBERT, CBC #### [place] [address] [place] Creatinine [Mass/volume] in Serum or PlasmaOrdered By: Good Garcia on 09-14-2023 Creatinine [Mass/Vol] 0.61 mg/dL 0.60-1.20 [facility] Drug Screen,Urineon 09-14-19 24 Amphetamine Screen,Urine Negative Normal Negative [facility] Comment on above: Performed By: #### E KATERIN LAMBERT, CBC #### [place] [address] [place] Barbiturate Screen,Urine Negative Normal Negative [facility] Comment on above: Performed By: #### E KATERIN LAMBERT, CBC #### [address] Benzodiazepines Screen,Urine Negative Normal Negative [facility] Comment on above: Performed By: #### E FAUSTO CMP, CBC #### [address] Cannabinoid Screen,Urine Negative Normal Negative [facility] Comment on above: Result Comment: Thes e are unconfirmed results and should not be used for legal purposes. Drug Cut-Off Concentration: AMPH 1000 ng/mL GABRIELA 200 ng/mL SIVA 200 ng/mL COCM 300 ng/mL OP 300 ng/mL PCP 25 ng/mL THC 20 ng/mL PERFORMED BY: [place] [address] PATHOLOGIST JUNIOR PROGRAMMER ELE SPRING M.D. Performed By: #### E KATERIN LAMBERT, CBC #### [address] Cocaine Screen,Urine Negative Normal Negative [facility] Comment on above: Performed By: #### E KATERIN LAMBERT, CBC #### [address] Opiate Screen,Urine Positive High Negative [facility] Comment on above: Performed By: #### E KATERIN LAMBERT, CBC #### [address] Phencyclidine Screen,Urine Negative Normal Negative [facility] Comment on above: Performed By: #### E FAUSTO CMP, CBC #### [place] [address] [place] Eosinophils Auto (Bld) [#/Vo l]Ordered By: Good Garcia on 09-14-2023 Eosinophils (Bld) [#/Vol] 0.1 10*3/uL 0.0-0.45 [facility] Eosinophils/100 WBC Auto (Bl d)Ordered By: Good Garcia on 09-14-2023 Eosinophils/100 WBC (Bld) 1.0 % . [facility] Erythrocyte distribution wid th Auto (RBC) [Ratio]Ordered By: Good Garcia on 09-14-2023 Erythrocyte distribution width (RBC) [Ratio] 13.0 % 11.9-15.3 [facility] Ethanol [Mass/volume] in Ser um or PlasmaOrdered By: Good Garcia on 09-14-2023 Ethanol [Mass/Vol] mg/dL [facility] Ethanol [Mass/Vol] TNP [facility] Comment on above: Test not performed Ethyl Alcohol Profileon 08-17 Ethanol [Mass/Vol] mg/dL Normal [facility] Comment on above: Performed By: #### E FAUSTO, CMP, CBC #### [facility] [address] Percent Ethanol Not performed Normal [facility] Comment on above: Result Comment: PERF ORMED BY: [place] [address] PATHOLOGIST JUNIOR PROGRAMMER ELE SPRING M.D. Performed By: #### E FAUSTO, CMP, CBC #### [facility] [address] Globulin Calc (S) [Mass/Vol] Ordered By: Good Garcia on 09-14-2023 Globulin (S) [Mass/Vol] 2.2 g/dL [facility] Glucose [Mass/volume] in Ser um or PlasmaOrdered By: Good Garcia on 09-14-2023 Glucose [Mass/Vol] 105 mg/dL 70-100 [facility] Comment on above: ADA recommended refe rence rangeRandom Glucose Reference Range is dependent on time and content of last meal. Glucose of more than 200 mg/dL in a nonstressed, ambulatory subject supports the diagnosis of Diabetes Mellitus. Hematocrit Auto (Bld) [Volum e fraction]Ordered By: Good Garcia on 09-14-2023 Hematocrit (Bld) [Volume fraction] 35.7 % 34.0-46.4 [facility] Hemoglobin [Mass/volume] in BloodOrdered By: Good Garcia on 09-14-2023 Hemoglobin (Bld) [Mass/Vol] 12.1 g/dL 11.8-15.4 [facility] Ketones Auto test strip (U) [Mass/Vol]Ordered By: Good Garcia on 09-14-2023 Ketones (U) [Mass/Vol] Negative Negative Fi [facility] Leukocytes [#/volume] correc gage for nucleated erythrocytes in Blood by Automated counOrdered By: Good Garcia on 09-14-2023 WBC corrected for nucl RBC Auto (Bld) [#/Vol] 5.3 10*3/uL 3.8-11.6 [facility] Lymphocytes Auto (Bld) [#/Vo l]Ordered By: Good Garcia on 09-14-2023 Lymphocytes (Bld) [#/Vol] 1.7 10*3/uL 1.00-4.8 [facility] Lymphocytes/100 WBC Auto (Bl d)Ordered By: Good Garcia on 09-14-2023 Lymphocytes/100 WBC (Bld) 31.5 % . [facility] MCH Auto (RBC) [Entitic mass ]Ordered By: Good Garcia on 09-14-2023 MCH (RBC) [Entitic mass] 30.4 pg 24.7-34.3 [facility] MCHC Auto (RBC) [Mass/Vol]Or dered By: Good Garcia on 09-14-2023 MCHC (RBC) [Mass/Vol] 34.0 g/dL 32.0-35.0 [facility] MCV Auto (RBC) [Entitic vol] Ordered By: Good Garcia on 09-14-2023 MCV (RBC) [Entitic vol] 89.6 fL 80-100 [facility] Monocyte distribution width [Entitic volume] in Blood by AutomatedOrdered By: Good Garcia on 09-14-2023 Monocyte distribution width Auto (Bld) [Entitic vol] 16.08 % 0.00-20.00 [facility] Monocytes Auto (Bld) [#/Vol] Ordered By: Good Garcia on 09-14-2023 Monocytes (Bld) [#/Vol] 0.4 10*3/uL 0.0-0.8 [facility] Monocytes/100 WBC Auto (Bld) Ordered By: Good Garcia on 09-14-2023 Monocytes/100 WBC (Bld) 7.5 % . [facility] Neutrophils Auto (Bld) [#/Vo l]Ordered By: Good Garcia on 09-14-2023 Neutrophils (Bld) [#/Vol] 3.1 10*3/uL 1.8-7.7 [facility] Neutrophils/100 WBC Auto (Bl d)Ordered By: Good Garcia on 09-14-2023 Neutrophils/100 WBC (Bld) 59.4 % . [facility] Nitrite Test strip Ql (U)Ord ered By: Good Garcia on 09-14-2023 Nitrite Ql (U) Negative Negative [facility] No Panel InformationOrdered By: Good Garcia on 09-14-2023 Estimated GFR (CKD-EPI) > 60.0 mL/Min [facility] Creatinine Clearance (Chem 59.72 [facility] Nucleated erythrocytes [Pres ence] in Blood by Automated countOrdered By: Good Garcia on 09-14-2023 Nucleated RBC Auto Ql (Bld) 0.1 /100{WBC} 0-0.5 [facility] Opiates [Presence] in Urine by Screen methodOrdered By: Good Garcia on 09-14-2023 Opiates Screen Ql (U) Positive Negative [facility] Phencyclidine Screen Ql (U)O rdered By: Good Garcia on 09-14-2023 Phencyclidine Ql (U) Negative Negative [facility] Platelet mean volume Auto (B ld) [Entitic vol]Ordered By: Good Garcia on 09-14-2023 Platelet mean volume (Bld) [Entitic vol] 7.3 fL 6.3-10.7 [facility] Platelets Auto (Bld) [#/Vol] Ordered By: Good Garcia on 09-14-2023 Platelets (Bld) [#/Vol] 246 10*3/uL 150-450 [facility] Potassium [Moles/volume] in Serum or PlasmaOrdered By: Good Garcia on 09-14-2023 Potassium [Moles/Vol] 3.8 mmol/L 3.5-5.1 [facility] Protein Auto test strip (U) [Mass/Vol]Ordered By: Good Garcia on 09-14-2023 Protein (U) [Mass/Vol] Negative Negative [facility] Protein [Mass/volume] in Ser um or PlasmaOrdered By: Good Garcia on 09-14-2023 Protein [Mass/Vol] 6.2 g/dL 6.4-8.9 [facility] RBC Auto (Bld) [#/Vol]Ordere d By: Good Garcia on 09-14-2023 RBC (Bld) [#/Vol] 3.98 10*6/uL 3.60-5.00 [facility] Serum or plasma albumin/glob ulin mass ratioOrdered By: Good Garcia on 09-14-2023 Albumin/Globulin [Mass ratio] 1.8 {ratio} [facility] Serum or plasma anion gap de terminationOrdered By: Good Garcia on 09-14-2023 Anion gap [Moles/Vol] 7.6 mmol/L 6.0-15.0 [facility] Sodium [Moles/volume] in Ser um or PlasmaOrdered By: Good Garcia on 09-14-2023 Sodium [Moles/Vol] 138 mmol/L 136-145 [facility] Specific gravity Auto test s trip (U) [Rel density]Ordered By: Good Garcia on 09-14-2023 Specific gravity (U) [Rel density] 1.004 1.001-1.030 [facility] Urea nitrogen [Mass/volume] in Serum or PlasmaOrdered By: Good Garcia on 09-14-2023 Urea nitrogen [Mass/Vol] 8 mg/dL 7-25 [facility] Urinalysison 09-14-2023 Appearance (U) Clear Normal Clear [facility] Comment on above: Order Comment: Name Collection Type:: Clean-Voided Midstream Performed By: #### E FAUSTO, CMP, CBC #### [facility] [address] Bilirubin,Urine Negative Normal Negative [facility] Comment on above: Order Comment: Name Collection Type:: Clean-Voided Midstream Performed By: #### E FAUSTO, CMP, CBC #### [address] Color (U) Yellow Normal Yellow [facility] Comment on above: Order Comment: Name Collection Type:: Clean-Voided Midstream Performed By: #### E FAUSTO, CMP, CBC #### [address] Glucose Ql (U) Normal Normal Normal [facility] Comment on above: Order Comment: Name Collection Type:: Clean-Voided Midstream Performed By: #### E FAUSTO, CMP, CBC #### [address] Ketones Ql (U) Negative Normal Negative [facility] Comment on above: Order Comment: Name Collection Type:: Clean-Voided Midstream Performed By: #### E FAUSTO, CMP, CBC #### [address] Leukocyte esterase Test strip Ql (U) Negative Normal Negative [facility] Comment on above: Order Comment: Name Collection Type:: Clean-Voided Midstream Performed By: #### E FAUSTO, CMP, CBC #### [place] [address] [place] Nitrite,Urine Negative Normal Negative [facility] Comment on above: Order Comment: Name Collection Type:: Clean-Voided Midstream Performed By: #### E FAUSTO, CMP, CBC #### [place] [address] [place] Occult Blood,Urine Negative Normal Negative [facility] Comment on above: Order Comment: Name Collection Type:: Clean-Voided Midstream Result Comment: PERF ORMED BY: [place] [address] PATHOLOGIST JUNIOR PROGRAMMER ELE SPRING M.D. Performed By: #### E FAUSTO, CMP, CBC #### [address] pH (U) 7.0 [pH] Normal 5.0-9.0 [facility] Comment on above: Order Comment: Name Collection Type:: Clean-Voided Midstream Performed By: #### E FAUSTO, CMP, CBC #### [facility] [address] Protein,Urine Negative Normal Negative [facility] Comment on above: Order Comment: Name Collection Type:: Clean-Voided Midstream Performed By: #### E FAUSTO, CMP, CBC #### [facility] [address] Specificy [place],Urine 1.004 Normal 1.001-1.030 [facility] Comment on above: Order Comment: Name Collection Type:: Clean-Voided Midstream Performed By: #### E FAUSTO, CMP, CBC #### [facility] [address] Urobilinogen,Urine Normal Normal Normal [facility] Comment on above: Order Comment: Name Collection Type:: Clean-Voided Midstream Performed By: #### E FAUSTO, CMP, CBC #### [facility] [address] Urine clarity by refractomet ry automatedOrdered By: Good Garcia on 09-14-2023 Clarity Refractometry automated (U) Clear Clear [facility] Urine glucose measurement by automated test strip (mass/volume)Ordered By: Good Garcia on 09-14-2023 Glucose Auto test strip (U) [Mass/Vol] Normal mg/dL Normal [facility] Urine hemoglobin detection b y automated test stripOrdered By: Good Garcia on 09-14-2023 Hemoglobin Auto test strip Ql (U) Negative Negative [facility] Urine leukocyte esterase det ection by automated test stripOrdered By: Good Garcia on 09-14-2023 Leukocyte esterase Auto test strip Ql (U) Negative Negative [facility] Urobilinogen Auto test strip (U) [Mass/Vol]Ordered By: Good Garcia on 09-14-2023 Urobilinogen (U) [Mass/Vol] Normal mg/dL Normal [facility] WBC Auto (Bld) [#/Vol]Ordere d By: Good Garcia on 09-14-2023 WBC (Bld) [#/Vol] 5.3 10*3/uL 3.8-11.6 [facility] pH Auto test strip (U)Ordere d By: Good Garcia on 09-14-2023 pH (U) 7.0 [pH] 5.0-9.0 [facility] TBH UA (CLEAN/CATCH) MICROSC OPIC IF INDICATEon 06-30-2023 [...] [facility] PROTEIN URINE Negative NEG/TRACE mg/dL [facility] SPECIFIC GRAVITY URINE 1.025 1.005 - 1.025 [facility] URINE MICROSCOPIC INDICATED YES [facility] UROBILINOGEN URINE 0.2 EU/dL 0.2 - 1.0 EU/dL [facility] A1C with Estimated Average G luon 06-04-2023 Glucose [Mass/Vol] 128 mg/dL Normal [facility] Comment on above: Result Comment: PERF ORMED BY: [facility] [address] [place] [address] PATHOLOGIST JUNIOR PROGRAMMER ELE SPRING M.D. Performed By: #### C MP, A1C [facility] eA ####[place] [address] [place] [id number] [facility] HbA1c (Bld) [Mass fraction] 6.1 % High 4.3-5.6 [facility] Comment on above: Result Comment: Incr eased risk for diabetes: 5.7 - 6.4 diabetes: >6.4 glycemic control for adults with diabetes: <7.0 Performed By: #### C MP, A1C WT eA ####[place] [address] [place] [id number] [facility] Comprehensive Metabolic Pane chito 06-04-2023 Albumin [Mass/Vol] 3.3 g/dL Low 3.5-5.7 [facility] Comment on above: Performed By: #### C SUE, [address] eA ####[address] Albumin/Globulin [Mass ratio] 1.4 {ratio} Normal [facility] Comment on above: Performed By: #### C SUE, [address] eA ####[place] [id number] [facility] ALP [Catalytic activity/Vol] 39 U/L Normal 34-104 [facility] Comment on above: Performed By: #### C SUE, [address] eA ####[address] ALT [Catalytic activity/Vol] 12 U/L Normal 7-52 [facility] Comment on above: Performed By: #### C SUE, [address] eA ####[address] Anion gap [Moles/Vol] 6.4 mmol/L Normal 6.0-15.0 [facility] Comment on above: Performed By: #### C SUE, [address] eA ####[address] AST [Catalytic activity/Vol] 20 U/L Normal 13-39 [facility] Comment on above: Performed By: #### C SUE, [address] eA ####[place] [id number] [facility] Bilirubin [Mass/Vol] 0.4 mg/dL Normal 0.3-1.0 [facility] Comment on above: Performed By: #### C SUE, A1C WT eA ####[place] [id number] [facility] Calcium [Mass/Vol] 9.3 mg/dL Normal 8.6-10.3 [facility] Comment on above: Performed By: #### C SUE, A1C WT eA ####[place] [id number] [facility] Chloride [Moles/Vol] 108 mmol/L High 98-107 [facility] Comment on above: Performed By: #### C SUE, [address] eA ####[address] CO2 [Moles/Vol] 30.7 mmol/L Normal 21.0-31.0 [facility] Comment on above: Performed By: #### C SUE, [address] eA ####[address] Creatinine [Mass/Vol] 0.71 mg/dL Normal 0.60-1.20 [facility] Comment on above: Performed By: #### C SUE, [address] eA ####[address] Creatinine Clr Calc Pharmacy 59.72 Normal [facility] Comment on above: Result Comment: PERF ORMED BY: [place] [address] PATHOLOGIST JUNIOR PROGRAMMER ELE SPRING M.D. Performed By: #### C SUE, [address] eA ####[address] GFR/1.73 sq M.predicted MDRD (S/P/Bld) [Vol rate/Area] mL/min/{1.73_m2} Normal [facility] Comment on above: Performed By: #### C SUE [address] eA ####[address] Globulin (S) [Mass/Vol] 2.3 g/dL Normal [facility] Comment on above: Performed By: #### C SUE, [address] eA ####[address] Glucose [Mass/Vol] 101 mg/dL High 70-100 [facility] Comment on above: Result Comment: [place] Glucose Reference Range is dependent on time and content of last meal. Glucose of more than 200 mg/dL in a nonstressed, ambulatory subject supports the diagnosis of Diabetes Mellitus. ADA recommended reference range Performed By: #### C MP, A1C WTH eA ####[facility] [place] [address] [facility] Potassium [Moles/Vol] 4.1 mmol/L Normal 3.5-5.1 [facility] Comment on above: Performed By: #### C MP, A1C WTH eA ####[place] [id number] [facility] Protein [Mass/Vol] 5.6 g/dL Low 6.4-8.9 [facility] Comment on above: Performed By: #### C MP, A1C WTH eA ####[place] [id number] [facility] Sodium [Moles/Vol] 141 mmol/L Normal 136-145 [facility] Comment on above: Performed By: #### C MP, A1C WTH eA ####[place] [id number] [facility] Urea nitrogen [Mass/Vol] 22 mg/dL Normal 7-25 [facility] Comment on above: Performed By: #### C MP, A1C WTH eA ####[place] [id number] [facility] Urine Cultureon 06-04-2023 Bacteria identified Cx Nom (U) <9,000 colonies/ml mixed bacterial skin contaminants 2 Days PERFORMED BY: [place] [address] PATHOLOGIST JUNIOR PROGRAMMER ELE SPRING M.D. Normal [facility] Comment on above: Performed By: #### C UU #### [facility] [address] [place] [id number] [facility] A1C with Estimated Average G luon 06-01-2023 Glucose [Mass/Vol] 126 mg/dL Normal [facility] Comment on above: Result Comment: PERF ORMED BY: [facility] [address] [place] [id number] PATHOLOGIST JUNIOR PROGRAMMER ELE SPRING M.D. Performed By: #### C MP, A1C WTH eA, CBC ####[address] HbA1c (Bld) [Mass fraction] 6.0 % High 4.3-5.6 [facility] Comment on above: Result Comment: Incr eased risk for diabetes: 5.7 - 6.4 diabetes: >6.4 glycemic control for adults with diabetes: <7.0 Performed By: #### C MP, A1C WTH eA, CBC ####[address] Complete Blood Count Auto Di ffon 06-01-2023 Basophils (Bld) [#/Vol] 0.0 10*3/uL Normal 0.0-0.2 [facility] Comment on above: Result Comment: PERF ORMED BY: [place] [address] PATHOLOGIST JUNIOR PROGRAMMER ELE SPRING M.D. Performed By: #### C MP, A1C WTH eA, CBC #### [address] Basophils/100 WBC (Bld) 0.5 % Normal . T jennifer [facility] Comment on above: Performed By: #### C MP, A1C WTH eA, CBC #### [address] Eosinophils (Bld) [#/Vol] 0.1 10*3/uL Normal 0.0-0.45 [facility] Comment on above: Performed By: #### C MP, A1C WTH eA, CBC #### [address] Eosinophils/100 WBC (Bld) 1.5 % Normal . [facility] Comment on above: Performed By: #### C MP, A1C WTH eA, CBC #### [address] Erythrocyte distribution width (RBC) [Ratio] 12.9 % Normal 11.9-15.3 [facility] Comment on above: Performed By: #### C MP, A1C WTH eA, CBC #### [address] [address] [place] Hematocrit (Bld) [Volume fraction] 35.4 % Normal 34.0-46.4 [facility] Comment on above: Performed By: #### C MP, A1C WTH eA, CBC #### [address] Hemoglobin (Bld) [Mass/Vol] 11.9 g/dL Normal 11.8-15.4 [facility] Comment on above: Performed By: #### C MP, A1C WTH eA, CBC #### [address] Lymphocytes (Bld) [#/Vol] 1.6 10*3/uL Normal 1.00-4.8 [facility] Comment on above: Performed By: #### C MP, A1C WTH eA, CBC #### [address] Lymphocytes/100 WBC (Bld) 31.4 % Normal . [facility] Comment on above: Performed By: #### C MP, A1C WTH eA, CBC #### [address] MCH (RBC) [Entitic mass] 29.5 pg Normal 24.7-34.3 [facility] Comment on above: Performed By: #### C MP, A1C WTH eA, CBC #### [address] MCV (RBC) [Entitic vol] 88.1 fL Normal 80-100 [facility] Comment on above: Performed By: #### C MP, A1C WTH eA, CBC #### [address] Mean Corpuscular HGB Conc 33.5 g/dL Normal 32.0-35.0 [facility] Comment on above: Performed By: #### C MP, A1C WTH eA, CBC #### [address] Monocytes (Bld) [#/Vol] 0.4 10*3/uL Normal 0.0-0.8 [facility] Comment on above: Performed By: #### C MP, A1C WTH eA, CBC #### [address] Monocytes/100 WBC (Bld) 8.8 % Normal . [facility] Comment on above: Performed By: #### C MP, A1C WTH eA, CBC #### [address] Neutrophils (Bld) [#/Vol] 2.9 10*3/uL Normal 1.8-7.7 [facility] Comment on above: Performed By: #### C MP, A1C WTH eA, CBC #### [address] Neutrophils/100 WBC (Bld) 57.8 % Normal . [facility] Comment on above: Performed By: #### C MP, A1C WTH eA, CBC #### [address] NRBC% 0.1 /100{WBC} Normal 0-0.5 [facility] Comment on above: Performed By: #### C MP, A1C WTH eA, CBC #### [address] Platelet mean volume (Bld) [Entitic vol] 7.4 fL Normal 6.3-10.7 [facility] Comment on above: Performed By: #### C MP, A1C WTH eA, CBC #### [address] Platelets (Bld) [#/Vol] 220 10*3/uL Normal 150-450 [facility] Comment on above: Performed By: #### C MP, A1C WTH eA, CBC #### [place] [address] [place] RBC (Bld) [#/Vol] 4.02 10*6/uL Normal 3.60-5.00 [facility] Comment on above: Performed By: #### C MP, A1C WTH eA, CBC #### [address] [place] [address] [place] WBC (Bld) [#/Vol] 5.1 10*3/uL Normal 3.8-11.6 [facility] Comment on above: Performed By: #### C MP, A1C WTH eA, CBC #### [facility] [address] Comprehensive Metabolic Pane chito 06-01-2023 Albumin [Mass/Vol] 3.4 g/dL Low 3.5-5.7 [facility] Comment on above: Performed By: #### C MP, A1C WTH eA, CBC ####[facility] [place] [address] Albumin/Globulin [Mass ratio] 1.5 {ratio} Normal [facility] Comment on above: Performed By: #### C MP, A1C WTH eA, CBC ####[address] ALP [Catalytic activity/Vol] 37 U/L Normal 34-104 [facility] Comment on above: Performed By: #### C MP, A1C WTH eA, CBC ####[facility] [place] [address] ALT [Catalytic activity/Vol] 13 U/L Normal 7-52 [facility] Comment on above: Performed By: #### C MP, A1C WTH eA, CBC ####[address] Anion gap [Moles/Vol] 8.2 mmol/L Normal 6.0-15.0 [facility] Comment on above: Performed By: #### C MP, A1C WTH eA, CBC ####[facility] [place] [address] AST [Catalytic activity/Vol] 15 U/L Normal 13-39 [facility] Comment on above: Performed By: #### C MP, A1C WTH eA, CBC ####[facility] [place] [address] Bilirubin [Mass/Vol] 0.3 mg/dL Normal 0.3-1.0 [facility] Comment on above: Performed By: #### C MP, A1C WTH eA, CBC ####[address] Calcium [Mass/Vol] 9.1 mg/dL Normal 8.6-10.3 [facility] [facility] Comment on above: Performed By: #### C MP, A1C WTH eA, CBC ####[place] [id number] [facility] Chloride [Moles/Vol] 109 mmol/L High 98-107 [facility] Comment on above: Performed By: #### C MP, A1C WT eA, CBC ####[address] CO2 [Moles/Vol] 27.8 mmol/L Normal 21.0-31.0 [facility] Comment on above: Performed By: #### C MP, A1C WT eA, CBC ####[address] Creatinine [Mass/Vol] 0.58 mg/dL Low 0.60-1.20 [facility] Comment on above: Performed By: #### C MP, A1C WT eA, CBC ####[address] Creatinine Clr Calc Pharmacy 59.72 Normal [facility] Comment on above: Result Comment: PERF ORMED BY: [facility] [address] [facility] [place] [address] PATHOLOGIST JUNIOR PROGRAMMER LEE SPRING M.D. Performed By: #### C MP, A1C WT eA, CBC ####[place] [id number] [facility] GFR/1.73 sq M.predicted MDRD (S/P/Bld) [Vol rate/Area] mL/min/{1.73_m2} Normal [facility] Comment on above: Performed By: #### C MP, A1C WTH eA, CBC ####[place] [id number] [facility] Globulin (S) [Mass/Vol] 2.2 g/dL Normal T [facility] Comment on above: Performed By: #### C MP, A1C WTH eA, CBC ####[place] [id number] [address] Glucose [Mass/Vol] 94 mg/dL Normal 70-100 [facility] Comment on above: Result Comment: [place] Glucose Reference Range is dependent on time and content of last meal. Glucose of more than 200 mg/dL in a nonstressed, ambulatory subject supports the diagnosis of Diabetes Mellitus. ADA recommended reference range Performed By: #### C MP, A1C WTH eA, CBC ####[address] Potassium [Moles/Vol] 4.0 mmol/L Normal 3.5-5.1 [facility] Comment on above: Performed By: #### C MP, A1C WTH eA, CBC ####[address] Protein [Mass/Vol] 5.6 g/dL Low 6.4-8.9 [facility] Comment on above: Performed By: #### C MP, A1C WT eA, CBC ####[address] Sodium [Moles/Vol] 141 mmol/L Normal 136-145 [facility] Comment on above: Performed By: #### C MP, A1C WTH eA, CBC ####[place] [id number] [facility] Urea nitrogen [Mass/Vol] 18 mg/dL Normal 7-25 [facility] Comment on above: Performed By: #### C MP, A1C WTH eA, CBC ####[place] [id number] [place] Dipstick and Microscopicon 0 05-31-2023 Appearance (U) Slightly Cloudy Critically abnormal Clear [facility] Comment on above: Order Comment: Name Collection Type:: Clean-Voided Midstream Performed By: #### E FAUSTO, CMP, CBC #### [facility] [address] [place] [address] [place] Bacteria,Urine None Seen Normal None Seen [facility] Comment on above: Order Comment: Name Collection Type:: Clean-Voided Midstream Performed By: #### E FAUSTO, CMP, CBC #### [address] Bilirubin,Urine Negative Normal Negative [facility] Comment on above: Order Comment: Name Collection Type:: Clean-Voided Midstream Performed By: #### E FAUSTO, CMP, CBC #### [address] Color (U) Yellow Normal Yellow [facility] Comment on above: Order Comment: Name Collection Type:: Clean-Voided Midstream Performed By: #### E FAUSTO, CMP, CBC #### [address] Glucose Ql (U) Normal Normal Normal [facility] Comment on above: Order Comment: Name Collection Type:: Clean-Voided Midstream Performed By: #### E FAUSTO, CMP, CBC #### [place] [address] [place] Hyaline Casts,Urine 9-19 High 0-8 [facility] Comment on above: Order Comment: Name Collection Type:: Clean-Voided Midstream Result Comment: PERF ORMED BY: [place] [address] PATHOLOGIST JUNIOR PROGRAMMER ELE SPRING M.D. Performed By: #### E FAUSTO, CMP, CBC #### [address] Ketones Ql (U) Negative Normal Negative [facility] Comment on above: Order Comment: Name Collection Type:: Clean-Voided Midstream Performed By: #### E FAUSTO, CMP, CBC #### [place] [address] [place] Leukocyte esterase Test strip Ql (U) 2+ High Negative [facility] Comment on above: Order Comment: Name Collection Type:: Clean-Voided Midstream Performed By: #### E FAUSTO, CMP, CBC #### [place] [address] [place] Nitrite,Urine Negative Normal Negative [facility] Comment on above: Order Comment: Name Collection Type:: Clean-Voided Midstream Performed By: #### E FAUSTO, CMP, CBC #### [place] [address] [place] Occult Blood,Urine Negative Normal Negative [facility] Comment on above: Order Comment: Name Collection Type:: Clean-Voided Midstream Result Comment: PERF ORMED BY: [place] [address] PATHOLOGIST JUNIOR PROGRAMMER ELE SPRING M.D. Performed By: #### E FAUSTO, CMP, CBC #### [address] Othe Crystals,Urine None Seen Normal [facility] Comment on above: Order Comment: Name Collection Type:: Clean-Voided Midstream Performed By: #### E FAUSTO, CMP, CBC #### [address] pH (U) 6.0 [pH] Normal 5.0-9.0 [facility] Comment on above: Order Comment: Name Collection Type:: Clean-Voided Midstream Performed By: #### E FAUSTO, CMP, CBC #### [place] [address] [place] Protein,Urine Negative Normal Negative [facility] Comment on above: Order Comment: Name Collection Type:: Clean-Voided Midstream Performed By: #### E FAUSTO, CMP, CBC #### [place] [address] [place] RBC,Urine 5-9 High 0-4 [facility] Comment on above: Order Comment: Name Collection Type:: Clean-Voided Midstream Performed By: #### E FAUSTO, CMP, CBC #### [place] [address] [place] Specificy [place],Urine 1.030 Normal 1.001-1.030 [facility] Comment on above: Order Comment: Name Collection Type:: Clean-Voided Midstream Performed By: #### E FAUSTO, CMP, CBC #### [facility] [address] Squamous Epithelial Cell,Urine 1-2 Normal 0-2 [facility] Comment on above: Order Comment: Name Collection Type:: Clean-Voided Midstream Performed By: #### E FAUSTO, CMP, CBC #### [facility] [address] Uric Acid Crystals,Urine 1+ Normal [facility] Comment on above: Order Comment: Name Collection Type:: Clean-Voided Midstream Performed By: #### E FAUSTO, CMP, CBC #### [facility] [address] Urobilinogen,Urine Normal Normal Normal [facility] Comment on above: Order Comment: Name Collection Type:: Clean-Voided Midstream Performed By: #### E FAUSTO, CMP, CBC #### [facility] [address] [place] [address] WBC,Urine 5-9 High 0-4 [facility] Comment on above: Order Comment: Name Collection Type:: Clean-Voided Midstream Performed By: #### E FAUSTO, CMP, CBC #### [address] MR head/brain wo conon 05-31 MR head/brain wo con [facility] [address] MRI Report Signed Patient: Donnie Bullock MR#: [id number] [birth year] : 1955 Acct:[id number] Age/Sex: 67 / F ADM Date: 05/25/23 Loc: Room: [address] [place] [address] Type: ADM IN Attending Dr: Sridhar Hoffman [...] Coates Jr., DEstebanOEsteban05/31/2023 1:55 PM Dictation Location: [place] [address] Transcribed By: [facility] 05/31/23 1355 Dictated By: Raymundo Coates Jr, DO 05/31/23 1348 Signed By: 05/31/23 1355 Normal [facility] Urine Cultureon 05-31-2023 Bacteria identified Cx Nom (U) 15,000 colonies/ml mixed bacterial skin contaminants 2 Days PERFORMED BY: [address] [place] [address] PATHOLOGIST JUNIOR PROGRAMMER ELE SPRING M.D. Normal [facility] Comment on above: Performed By: #### E FAUSTO, CMP, CBC #### [facility] [address] Ammoniaon 05-29-2023 Ammonia (P) [Moles/Vol] 21 umol/L Normal 11-35 [facility] Comment on above: Result Comment: PERF ORMED BY: [address] [place] [id number] PATHOLOGIST JUNIOR PROGRAMMER ELE SPRING M.D. Performed By: #### B 12, AMM ####[facility] [id number] [place] [id number] [facility] Vitamin B12on 05-29-2023 Cobalamin (Vitamin B12) [Mass/Vol] 380 pg/mL Normal 180-914 [facility] Comment on above: Result Comment: PERF ORMED BY: [facility] [address] [facility] [place] [id number] PATHOLOGIST JUNIOR PROGRAMMER ELE SPRING M.D. Performed By: #### E FAUSTO, CMP, CBC #### [facility] [address] [place] [id number] [facility] Lipid Panelon 05-26-2023 Cholesterol [Mass/Vol] 177 mg/dL Normal 140-200 [facility] Comment on above: Result Comment: Chol less than 200 mg/dl low risk Chol 201-239 mg/dl borderline risk Chol 240 mg/dl and greater high risk Performed By: #### L IPID, [id number], TSH3 wRFLX #### [facility] [address] Cholesterol in HDL [Mass/Vol] 62 mg/dL Normal 23-92 [facility] Comment on above: Result Comment: HDL CHOL ATP-III CLASSIFICATION Cardiovascular Risk HDL > or equal to 60 mg/dL LOW HDL < 40 mg/dL HIGH Performed By: #### L IPID, [id number], TSH3 wRFLX #### [address] Cholesterol.total/Mandie sterol in HDL [Mass ratio] 2.9 {ratio} Normal <5.0 [facility] Comment on above: Performed By: #### L IPID, [id number], TSH3 wRFLX #### [address] LDL Cholesterol,Calculated 95 mg/dL Normal 0-100 [facility] Comment on above: Result Comment: LDL ATP III CLASSIFICATION LDL less than 100 mg/dL Optimal LDL 100-129 mg/dL Near or above optimal LDL 130-159 mg/dL Borderline high LDL 160-189 mg/dL High LDL greater than 189 mg/dL Very high Performed By: #### L IPID, [id number], TSH3 wRFLX #### [place] [id number] [place] Triglyceride w/Reflex 100 mg/dL Normal 0-149 [facility] Comment on above: Result Comment: TRIG ATP III CLASSIFICATION TRIG less than 150 mg/dL Normal TRIG 150-199 mg/dL Borderline high TRIG 200-500 mg/dL High TRIG greater than 500 mg/dL Very high Standard traceable to the Center for Disease Conrtrol and Prevention (CDC) test method. Performed By: #### L IPID, [id number], TSH3 wRFLX #### [address] VLDL CHOLESTEROL 20 mg/dL Normal [facility] Comment on above: Performed By: #### L IPID, [id number], TSH3 wRFLX #### [address] Thyroid Stim Hormone w/Rflxo n 05-26-2023 Thyroid Stim Hormone w/Rflx 2.11 u[iU]/mL Normal 0.45-5.33 [facility] Comment on above: Performed By: #### L IPID, [id number], TSH3 wRFLX #### [address] Vitamin D 25 Hydroxy Totalon 05-26-2023 Vitamin D 25 Hydroxy Total 25.4 ng/mL Low 30-100 [facility] Comment on above: Result Comment: HUSAM MIN D STATUS 25(OH)VITAMIN D RANGE (ng/mL) Deficient <20 Insufficient 20 to <30 Sufficient 30 to 100 Reference: Shaq MF,Monica NC, Fabrizio , et al. Evaluation,treatment, and prevention of vitamin D deficiency; an Endocrine Society clinical practice guideline. JCEM. 2010; 96(7):1911-30. PERFORMED BY: [place] [address] PATHOLOGIST JUNIOR PROGRAMMER ELE SPRING M.D. Performed By: #### L IPID, [id number], TSH3 wRFLX #### [address] Alanine aminotransferase [En zymatic activity/volume] in Serum or PlasmaOrdered By: Robert Caruso on 05-25-2023 ALT [Catalytic activity/Vol] 14 U/L 7-52 [facility] Albumin [Mass/volume] in Ser um or Plasma by Bromocresol green (BCG) dye binding methoOrdered By: Robert Caruso on 05-25-2023 Albumin BCG dye [Mass/Vol] 4.4 g/dL 3.5-5.7 [facility] Alkaline phosphatase [Enzyma tic activity/volume] in Serum or PlasmaOrdered By: Robert Caruso on 05-25-2023 ALP [Catalytic activity/Vol] 48 U/L 34-104 [facility] Amphetamine Screen Ql (U)Ord ered By: Robert Caruso on 05-25-2023 Amphetamines Ql (U) Negative Negative [facility] Aspartate aminotransferase [ Enzymatic activity/volume] in Serum or PlasmaOrdered By: Robert Caruso on 05-25-2023 AST [Catalytic activity/Vol] 21 U/L 13-39 [facility] Barbiturates [Presence] in U rine by Screen methodOrdered By: Robert Caruso on 05-25-2023 Barbiturates Screen Ql (U) Negative Negative [facility] Basophils Auto (Bld) [#/Vol] Ordered By: Robert Caruso on 05-25-2023 Basophils (Bld) [#/Vol] 0.0 10*3/uL 0.0-0.2 [facility] Basophils/100 WBC Auto (Bld) Ordered By: Robert Caruso on 05-25-2023 Basophils/100 WBC (Bld) 0.5 % . F [facility] Benzodiazepines Screen Ql (U )Ordered By: Robert Caruso on 05-25-2023 Benzodiazepines Ql (U) Negative Negative [facility] Benzoylecgonine [Presence] i n Urine by Screen methodOrdered By: Robert Caruso on 05-25-2023 Benzoylecgonine Screen Ql (U) Negative Negative [facility] Bilirubin.total [Mass/volume ] in Serum or PlasmaOrdered By: Robert Caruso on 05-25-2023 Bilirubin [Mass/Vol] 0.8 mg/dL 0.3-1.0 [facility] Calcium [Mass/volume] in Ser um or PlasmaOrdered By: Robert Caruso on 05-25-2023 Calcium [Mass/Vol] 10.1 mg/dL 8.6-10.3 [facility] Cannabinoids [Presence] in U rine by Screen methodOrdered By: Robert Caruso on 05-25-2023 Cannabinoids Screen Ql (U) Negative Negative [facility] Comment on above: These are unconfirme d results and should not be used for legal purposes. Drug Cut-Off Concentration: AMPH 1000 ng/mL GABRIELA 200 ng/mL SIVA 200 ng/mL COCM 300 ng/mL OP 300 ng/mL PCP 25 ng/mL THC 20 ng/mL Carbon dioxide, total [Moles /volume] in Serum or PlasmaOrdered By: Robert Caruso on 05-25-2023 CO2 [Moles/Vol] 29.6 mmol/L 21.0-31.0 [facility] Chloride [Moles/volume] in S anupam or PlasmaOrdered By: Robert Caruso on 05-25-2023 Chloride [Moles/Vol] 102 mmol/L 98-107 [facility] Complete Blood Count Auto Di ffon 05-25-2023 Basophils (Bld) [#/Vol] 0.0 10*3/uL Normal 0.0-0.2 [facility] Comment on above: Result Comment: PERF ORMED BY: [facility] [address] [facility] [place] [address] PATHOLOGIST JUNIOR PROGRAMMER ELE SPRING M.D. Performed By: #### C MP, ETOH, CBC ####[address] Basophils/100 WBC (Bld) 0.5 % Normal . T jennifer [facility] Comment on above: Performed By: #### C MP, ETOH, CBC ####[address] Eosinophils (Bld) [#/Vol] 0.0 10*3/uL Normal 0.0-0.45 [facility] Comment on above: Performed By: #### C MP, ETOH, CBC ####[place] [id number] [place] Eosinophils/100 WBC (Bld) 0.1 % Normal . [facility] Comment on above: Performed By: #### C MP, ETOH, CBC ####[address] Erythrocyte distribution width (RBC) [Ratio] 12.9 % Normal 11.9-15.3 [facility] Comment on above: Performed By: #### C MP, ETOH, CBC ####[address] Hematocrit (Bld) [Volume fraction] 41.6 % Normal 34.0-46.4 [facility] Comment on above: Performed By: #### C MP, ETOH, CBC ####[address] Hemoglobin (Bld) [Mass/Vol] 14.1 g/dL Normal 11.8-15.4 [facility] Comment on above: Performed By: #### C MP, ETOH, CBC ####[address] Lymphocytes (Bld) [#/Vol] 1.1 10*3/uL Normal 1.00-4.8 [facility] Comment on above: Performed By: #### C MP, ETOH, CBC ####[address] Lymphocytes/100 WBC (Bld) 15.5 % Normal . [facility] Comment on above: Performed By: #### C MP, ETOH, CBC ####[address] MCH (RBC) [Entitic mass] 29.9 pg Normal 24.7-34.3 [facility] Comment on above: Performed By: #### C MP, ETOH, CBC ####[address] MCV (RBC) [Entitic vol] 87.8 fL Normal 80-100 [facility] Comment on above: Performed By: #### C MP, ETOH, CBC ####[address] Mean Corpuscular HGB Conc 34.0 g/dL Normal 32.0-35.0 [facility] Comment on above: Performed By: #### C MP, ETOH, CBC ####[address] Monocytes (Bld) [#/Vol] 0.3 10*3/uL Normal 0.0-0.8 [facility] Comment on above: Performed By: #### C MP, ETOH, CBC ####[address] Monocytes/100 WBC (Bld) 17.76 % Normal 0.00-20.00 [facility] Comment on above: Performed By: #### C MP, ETOH, CBC ####[address] Monocytes/100 WBC (Bld) 3.9 % Normal . [facility] Comment on above: Performed By: #### C MP, ETOH, CBC ####[address] Neutrophils (Bld) [#/Vol] 5.6 10*3/uL Normal 1.8-7.7 [facility] Comment on above: Performed By: #### C MP, ETOH, CBC ####[address] Neutrophils/100 WBC (Bld) 80.0 % Normal . [facility] Comment on above: Performed By: #### C MP, ETOH, CBC ####[address] NRBC% 0.0 /100{WBC} Normal 0-0.5 [facility] Comment on above: Performed By: #### C MP, ETOH, CBC ####[address] Platelet mean volume (Bld) [Entitic vol] 7.9 fL Normal 6.3-10.7 [facility] Comment on above: Performed By: #### C MP, ETOH, CBC ####[address] Platelets (Bld) [#/Vol] 292 10*3/uL Normal 150-450 [facility] Comment on above: Performed By: #### C MP, ETOH, CBC ####[place] [address] [place] RBC (Bld) [#/Vol] 4.74 10*6/uL Normal 3.60-5.00 [facility] Comment on above: Performed By: #### C MP, ETOH, CBC ####[address] WBC (Bld) [#/Vol] 7.0 10*3/uL Normal 3.8-11.6 [facility] Comment on above: Performed By: #### C MP, ETOH, CBC ####[address] Comprehensive Metabolic Pane chito 05-25-2023 Albumin [Mass/Vol] 4.4 g/dL Normal 3.5-5.7 [facility] Comment on above: Performed By: #### C MP, ETOH, CBC ####[address] Albumin/Globulin [Mass ratio] 1.5 {ratio} Normal [facility] Comment on above: Performed By: #### C MP, ETOH, CBC ####[address] ALP [Catalytic activity/Vol] 48 U/L Normal 34-104 [facility] Comment on above: Performed By: #### C MP, ETOH, CBC ####[address] ALT [Catalytic activity/Vol] 14 U/L Normal 7-52 [facility] Comment on above: Performed By: #### C MP, ETOH, CBC ####[address] Anion gap [Moles/Vol] 10.1 mmol/L Normal 6.0-15.0 e [facility] Comment on above: Performed By: #### C MP, ETOH, CBC ####[address] AST [Catalytic activity/Vol] 21 U/L Normal 13-39 [facility] Comment on above: Performed By: #### C MP, ETOH, CBC ####[address] Bilirubin [Mass/Vol] 0.8 mg/dL Normal 0.3-1.0 [facility] Comment on above: Performed By: #### C MP, ETOH, CBC ####[address] Calcium [Mass/Vol] 10.1 mg/dL Normal 8.6-10.3 [facility] Comment on above: Performed By: #### C MP, ETOH, CBC ####[address] Chloride [Moles/Vol] 102 mmol/L Normal 98-107 [facility] Comment on above: Performed By: #### C MP, ETOH, CBC ####[address] CO2 [Moles/Vol] 29.6 mmol/L Normal 21.0-31.0 [facility] Comment on above: Performed By: #### C MP, ETOH, CBC ####[place] [id number] [facility] Creatinine [Mass/Vol] 0.76 mg/dL Normal 0.60-1.20 [facility] Comment on above: Performed By: #### C MP, ETOH, CBC ####[address] Creatinine Clr Calc Pharmacy 59.72 Normal [facility] Comment on above: Result Comment: PERF ORMED BY: [facility] [address] [place] [address] PATHOLOGIST JUNIOR PROGRAMMER ELE SPRING M.D. Performed By: #### C MP, ETOH, CBC ####[place] [id number] [place] GFR/1.73 sq M.predicted MDRD (S/P/Bld) [Vol rate/Area] mL/min/{1.73_m2} Normal [facility] Comment on above: Performed By: #### C MP, ETOH, CBC ####[place] [id number] [facility] Globulin (S) [Mass/Vol] 2.9 g/dL Normal T [facility] Comment on above: Performed By: #### C MP, ETOH, CBC ####[address] Glucose [Mass/Vol] 120 mg/dL High 70-100 [facility] Comment on above: Result Comment: [place] Glucose Reference Range is dependent on time and content of last meal. Glucose of more than 200 mg/dL in a nonstressed, ambulatory subject supports the diagnosis of Diabetes Mellitus. ADA recommended reference range Performed By: #### C MP, ETOH, CBC ####[address] Potassium [Moles/Vol] 3.7 mmol/L Normal 3.5-5.1 [facility] Comment on above: Performed By: #### C MP, ETOH, CBC ####[address] Protein [Mass/Vol] 7.3 g/dL Normal 6.4-8.9 [facility] Comment on above: Performed By: #### C MP, ETOH, CBC ####[address] Sodium [Moles/Vol] 138 mmol/L Normal 136-145 [facility] Comment on above: Performed By: #### C MP, ETOH, CBC ####[place] [id number] [facility] Urea nitrogen [Mass/Vol] 12 mg/dL Normal 7-25 [facility] Comment on above: Performed By: #### C MP, ETOH, CBC ####[place] [phone] [facility] Creatinine [Mass/volume] in Serum or PlasmaOrdered By: Robert Caruso on 05-25-2023 Creatinine [Mass/Vol] 0.76 mg/dL 0.60-1.20 [facility] Drug Screen,Urineon 05-25-19 24 Amphetamine Screen,Urine Negative Normal Negative [facility] Comment on above: Performed By: #### U [facility], [facility] ####[place] [id number] [facility] Barbiturate Screen,Urine Negative Normal Negative [facility] Comment on above: Performed By: #### U RDS, [facility] ####[address] [address] [facility] Benzodiazepines Screen,Urine Negative Normal Negative [facility] Comment on above: Performed By: #### U R[facility], [facility] ####[address] [address] [facility] Cannabinoid Screen,Urine Negative Normal Negative [facility] Comment on above: Result Comment: Thes e are unconfirmed results and should not be used for legal purposes. Drug Cut-Off Concentration: AMPH 1000 ng/mL GABRIELA 200 ng/mL SIVA 200 ng/mL COCM 300 ng/mL OP 300 ng/mL PCP 25 ng/mL THC 20 ng/mL PERFORMED BY: [place] [address] PATHOLOGIST JUNIOR PROGRAMMER ELE SPRING M.D. Performed By: #### U [facility], [facility] ####[place] [id number] [facility] Cocaine Screen,Urine Negative Normal Negative [facility] Comment on above: Performed By: #### U RDS, [facility] ####[address] [address] [facility] Opiate Screen,Urine Negative Normal Negative [facility] Comment on above: Performed By: #### U RDS, [facility] ####[place] [id number] [facility] Phencyclidine Screen,Urine Negative Normal Negative [facility] Comment on above: Performed By: #### U RDS, [facility] ####[place] [id number] [facility] ECG 12 lead ECGon 05-25-2023 ECG 12 lead ECG [facility] Main [place] [address] [place] [address] Electrocardiograph Report Signed Patient: Donnie Bullock MR#: [id number] [birth year] : 1955 Acct:[id number] Age/Sex: 67 / F ADM Date: 05/25/23 Loc: Room: [address] [place] [address] Type: ADM IN Attending Dr: Sridhar Hoffman [...] previous ECGs available Confirmed by Fidel Flood ([id number]) on 05/25/2023 5:09:43 PM Referred By: Electronically Signed By:Fidel Flood Transcribed By: MUS Signed By Fidel Flood MD 05/25/23 1355 Normal [facility] Eosinophils Auto (Bld) [#/Vo l]Ordered By: Robert Caruso on 05-25-2023 Eosinophils (Bld) [#/Vol] 0.0 10*3/uL 0.0-0.45 [facility] Eosinophils/100 WBC Auto (Bl d)Ordered By: Robert Caruso on 05-25-2023 Eosinophils/100 WBC (Bld) 0.1 % . [facility] Erythrocyte distribution wid th Auto (RBC) [Ratio]Ordered By: Robert Caruso on 05-25-2023 Erythrocyte distribution width (RBC) [Ratio] 12.9 % 11.9-15.3 [facility] Ethanol [Mass/volume] in Ser um or PlasmaOrdered By: Robert Caruso on 05-25-2023 Ethanol [Mass/Vol] mg/dL [facility] Ethanol [Mass/Vol] TNP [facility] Comment on above: Test not performed Ethyl Alcohol Profileon Ethanol [Mass/Vol] mg/dL Normal [facility] Comment on above: Performed By: #### C MP, ETOH, CBC ####[place] [address] [place] [address] [facility] Percent Ethanol Not performed Normal [facility] Comment on above: Result Comment: PERF ORMED BY: [facility] [address] [place] [address] PATHOLOGIST JUNIOR PROGRAMMER ELE SPRING M.D. Performed By: #### C MP, ETOH, CBC ####[place] [address] [place] [address] [facility] Globulin Calc (S) [Mass/Vol] Ordered By: Robert Caruso on 05-25-2023 Globulin (S) [Mass/Vol] 2.9 g/dL [facility] Glucose [Mass/volume] in Ser um or PlasmaOrdered By: Robert Caruso on 05-25-2023 Glucose [Mass/Vol] 120 mg/dL 70-100 [facility] Comment on above: ADA recommended refe rence rangeRandom Glucose Reference Range is dependent on time and content of last meal. Glucose of more than 200 mg/dL in a nonstressed, ambulatory subject supports the diagnosis of Diabetes Mellitus. HCG ( test) IA.rapi d Ql (U)Ordered By: Robert Caruso on 05-25-2023 HCG ( test) Ql (U) Negative [facility] HCG,Urineon 05-25-2023 Beta HCG ( test) Ql (U) Negative Normal [facility] Comment on above: Result Comment: PERF ORMED BY: [facility] [address] [place] [id number] PATHOLOGIST JUNIOR PROGRAMMER ELE SPRING M.D. Performed By: #### U RDS, UHCG ####[place] [address] [place] [address] [facility] Hematocrit Auto (Bld) [Volum e fraction]Ordered By: Robert Caruso on 05-25-2023 Hematocrit (Bld) [Volume fraction] 41.6 % 34.0-46.4 [facility] Hemoglobin [Mass/volume] in BloodOrdered By: Robert Caruso on 05-25-2023 Hemoglobin (Bld) [Mass/Vol] 14.1 g/dL 11.8-15.4 [facility] Leukocytes [#/volume] correc gage for nucleated erythrocytes in Blood by Automated counOrdered By: Robert Caruso on 05-25-2023 WBC corrected for nucl RBC Auto (Bld) [#/Vol] 7.0 10*3/uL 3.8-11.6 [facility] Lymphocytes Auto (Bld) [#/Vo l]Ordered By: Robert Caruso on 05-25-2023 Lymphocytes (Bld) [#/Vol] 1.1 10*3/uL 1.00-4.8 [facility] Lymphocytes/100 WBC Auto (Bl d)Ordered By: Robert Caruso on 05-25-2023 Lymphocytes/100 WBC (Bld) 15.5 % . [facility] MCH Auto (RBC) [Entitic mass ]Ordered By: Robert Caruso on 05-25-2023 MCH (RBC) [Entitic mass] 29.9 pg 24.7-34.3 [facility] MCHC Auto (RBC) [Mass/Vol]Or dered By: Robert Caruso on 05-25-2023 MCHC (RBC) [Mass/Vol] 34.0 g/dL 32.0-35.0 [facility]ir [facility] MCV Auto (RBC) [Entitic vol] Ordered By: Robert Caruso on 05-25-2023 MCV (RBC) [Entitic vol] 87.8 fL 80-100 [facility] Monocyte distribution width [Entitic volume] in Blood by AutomatedOrdered By: Robert Caruso on 05-25-2023 Monocyte distribution width Auto (Bld) [Entitic vol] 17.76 % 0.00-20.00 [facility] Monocytes Auto (Bld) [#/Vol] Ordered By: Robert Caruso on 05-25-2023 Monocytes (Bld) [#/Vol] 0.3 10*3/uL 0.0-0.8 [facility] Monocytes/100 WBC Auto (Bld) Ordered By: Robert Caruso on 05-25-2023 Monocytes/100 WBC (Bld) 3.9 % . [facility] Neutrophils Auto (Bld) [#/Vo l]Ordered By: Robert Caruso on 05-25-2023 Neutrophils (Bld) [#/Vol] 5.6 10*3/uL 1.8-7.7 [facility] Neutrophils/100 WBC Auto (Bl d)Ordered By: Robert Caruso on 05-25-2023 Neutrophils/100 WBC (Bld) 80.0 % . [facility] No Panel InformationOrdered By: Robert Caruso on 05-25-2023 Estimated GFR (CKD-EPI) > 60.0 mL/Min [facility] Creatinine Clearance (Chem 59.72 [facility] Nucleated erythrocytes [Pres ence] in Blood by Automated countOrdered By: Robert Caruso on 05-25-2023 Nucleated RBC Auto Ql (Bld) 0.0 /100{WBC} 0-0.5 [facility] Opiates [Presence] in Urine by Screen methodOrdered By: Robert Caruso on 05-25-2023 Opiates Screen Ql (U) Negative Negative [facility] Phencyclidine Screen Ql (U)O rdered By: Robert Caruso on 05-25-2023 Phencyclidine Ql (U) Negative Negative [facility] Platelet mean volume Auto (B ld) [Entitic vol]Ordered By: Robert Caruso on 05-25-2023 Platelet mean volume (Bld) [Entitic vol] 7.9 fL 6.3-10.7 [facility] Platelets Auto (Bld) [#/Vol] Ordered By: Robert Caruso on 05-25-2023 Platelets (Bld) [#/Vol] 292 10*3/uL 150-450 [facility] Potassium [Moles/volume] in Serum or PlasmaOrdered By: Robert Caruso on 05-25-2023 Potassium [Moles/Vol] 3.7 mmol/L 3.5-5.1 [facility] Protein [Mass/volume] in Ser um or PlasmaOrdered By: Robert Caruso on 05-25-2023 Protein [Mass/Vol] 7.3 g/dL 6.4-8.9 [facility] RBC Auto (Bld) [#/Vol]Ordere d By: Robert Caruso on 05-25-2023 RBC (Bld) [#/Vol] 4.74 10*6/uL 3.60-5.00 [facility] Serum or plasma albumin/glob ulin mass ratioOrdered By: Robert Caruso on 05-25-2023 Albumin/Globulin [Mass ratio] 1.5 {ratio} [facility] Serum or plasma anion gap de terminationOrdered By: Robert Caruso on 05-25-2023 Anion gap [Moles/Vol] 10.1 mmol/L 6.0-15.0 [facility] Sodium [Moles/volume] in Ser um or PlasmaOrdered By: Robert Caruso on 05-25-2023 Sodium [Moles/Vol] 138 mmol/L 136-145 [facility] Urea nitrogen [Mass/volume] in Serum or PlasmaOrdered By: Robert Caruso on 05-25-2023 Urea nitrogen [Mass/Vol] 12 mg/dL 7-25 [facility] WBC Auto (Bld) [#/Vol]Ordere d By: Robert Caruso on 05-25-2023 WBC (Bld) [#/Vol] 7.0 10*3/uL 3.8-11.6 [facility] .Fentanyl Scrn wo Conf,Uron 05-20-2023 Ur Fentanyl Scrn Negative Normal NEG <1.0 [facility] Comment on above: Performed By: #### C [id number] #### [address] [address] Ur Fentanyl Scrn Qnt 0.10 ng/mL Normal <=0.99 [facility] Comment on above: Performed By: #### C [id number] #### [address] [address] .eGFRon 05-20-2023 GFR/1.73 sq M.predicted MDRD (S/P/Bld) [Vol rate/Area] mL/min/{1.73_m2} Normal >=60 [facility] Comment on above: Result Comment: [facility] Laboratories have implemented the eGFR [...] years Performed By: #### E GFR #### [place] [address] CBC w/ Diffon 05-20-2023 Erythrocyte distribution width (RBC) [Ratio] 13.2 % Normal 11.6-14.8 [facility] Comment on above: Performed By: #### C BC #### [place] [id number] Hematocrit (Bld) [Volume fraction] 40.9 % Normal 36.0-46.0 [facility] Comment on above: Performed By: #### C BC #### [place] [id number] Hemoglobin (Bld) [Mass/Vol] 13.9 g/dL Normal 12.0-16.0 [facility] Comment on above: Performed By: #### C BC #### [address] [address] MCH (RBC) [Entitic mass] 30.1 pg Normal 27.0-35.0 [facility] Comment on above: Performed By: #### C BC #### [place] [id number] MCHC 34.1 % Normal 31.0-37.0 [facility] Comment on above: Performed By: #### C BC #### [address] [address] MCV (RBC) [Entitic vol] 88.2 fL Normal 80.0-100.0 B [facility] Comment on above: Performed By: #### C BC #### [address] [address] Platelet 250 x10*3/mcL Normal 150-450 [facility] Comment on above: Performed By: #### C BC #### [address] [address] Platelet mean volume (Bld) [Entitic vol] 7.6 fL Normal 6.7-10.6 [facility] Comment on above: Performed By: #### C BC #### [address] [address] RBC 4.63 x10*6/mcL Normal 3.80-5.20 [facility] Comment on above: Performed By: #### C BC #### [address] [address] WBC 5.6 x10*3/mcL Normal 4.5-11.0 [facility] Comment on above: Performed By: #### C BC #### [address] [address] CMPon 05-20-2023 Albumin [Mass/Vol] 4.5 g/dL Normal 3.2-4.9 [facility] Comment on above: Performed By: #### C OMP #### [address] [address] Albumin/Globulin [Mass ratio] 1.4 {ratio} Normal 1.1-2.2 [facility] Comment on above: Performed By: #### C OMP #### [address] [address] Alk Phos 47 IU/L Normal 32-91 [facility] Comment on above: Performed By: #### C OMP #### [address] [address] ALT [Catalytic activity/Vol] 18 U/L Normal 14-54 [facility] Comment on above: Performed By: #### C OMP #### [address] [address] Anion gap [Moles/Vol] 14 mmol/L Normal 7-17 [facility] Comment on above: Performed By: #### C OMP #### [address] [address] AST [Catalytic activity/Vol] 28 U/L Normal 15-41 [facility] Comment on above: Performed By: #### C OMP #### [address] [address] Bili Total 0.8 mg/dL Normal 0.3-1.2 [facility] Comment on above: Performed By: #### C OMP #### [address] [address] Calcium [Mass/Vol] 10.1 mg/dL Normal 8.5-10.3 [facility] Comment on above: Performed By: #### C OMP #### [address] [address] Chloride [Moles/Vol] 100 mmol/L Normal 98-110 [facility] Comment on above: Performed By: #### C OMP #### [address] [address] CO2 [Moles/Vol] 27 mmol/L Normal 22-32 [facility] Comment on above: Performed By: #### C OMP #### [address] [place] [address] Creatinine [Mass/Vol] 0.96 mg/dL Normal 0.44-1.03 [facility] Comment on above: Performed By: #### C OMP #### [address] [place] [address] Glucose [Mass/Vol] 116 mg/dL High 70-99 [facility] Comment on above: Performed By: #### C OMP #### [address] [address] Potassium [Moles/Vol] 4.0 mmol/L Normal 3.4-4.8 [facility] Comment on above: Performed By: #### C OMP #### [address] [address] Protein [Mass/Vol] 7.8 g/dL Normal 6.5-8.1 [facility] Comment on above: Performed By: #### C OMP #### [address] [address] Sodium [Moles/Vol] 137 mmol/L Normal 133-142 [facility] Comment on above: Performed By: #### C OMP #### [address] [address] Urea nitrogen [Mass/Vol] 13 mg/dL Normal 8-26 [facility] Comment on above: Performed By: #### C OMP #### [address] [address] Urea nitrogen/Creatinine [Mass ratio] 13.5 mg/mg Normal 10.0-20.0 [facility] Comment on above: Performed By: #### C OMP #### [address] [address] [address] Brain w/o Contraston 01-0 CT Brain w/o Contrast CT Brain w/o [...] or other acute finding. Radiation Dose Estimate: CTDI(mGy):0.597780 / / / kVp:120.163460 / mAs:0.616180 / / / DLP(mGy-cm):5.726608J maureen Part: Head CTDI(mGy):44.620314 / / / kVp:120.845931 / mAs:182.395591 / / / DLP(mGy-cm):813.64184 7Body Part: Head Final Dictated by: Tremayne Butler MD Dictated DT/TM: 05.20.2023 2:48 pm Signed by: Tremayne Butler MD Signed (Electronic Signature): 05.20.2023 2:50 pm (If Report Is Signed, Electronically Signed in Other Vendor System) Normal [facility] Diff Autoon 05-20-2023 Baso Absolute 0.0 x10*3/mcL Normal 0.0-0.2 [facility] Comment on above: Performed By: #### . Automated Diff #### [address] [address] Basophils/100 WBC (Bld) 0.5 % Normal 0.0-1.5 B [facility] Comment on above: Performed By: #### . Automated Diff #### [address] [address] Eos Absolute 0.0 x10*3/mcL Normal 0.0-0.4 [facility] Comment on above: Performed By: #### . Automated Diff #### [address] [address] Eosinophils/100 WBC (Bld) 0.4 % Normal 0.0-5.4 [facility] Comment on above: Performed By: #### . Automated Diff #### [address] [address] Lymph Absolute 1.3 x10*3/mcL Normal 1.0-4.8 [facility] Comment on above: Performed By: #### . Automated Diff #### [address] [address] Lymphocytes/100 WBC (Bld) 22.8 % Low 27.2-40.8 [facility] Comment on above: Performed By: #### . Automated Diff #### [address] [address] Emery Absolute 0.3 x10*3/mcL Normal 0.1-1.1 [facility] Comment on above: Performed By: #### . Automated Diff #### [address] [address] Monocytes/100 WBC (Bld) 5.2 % Normal 3.7-11.9 B [facility] Comment on above: Performed By: #### . Automated Diff #### [address] [address] Neutro Absolute 4.0 x10*3/mcL Normal 1.8-7.7 [facility] Comment on above: Performed By: #### . Automated Diff #### [address] [address] Neutro Auto 71.1 % High 47.2-70.8 [facility] Comment on above: Performed By: #### . Automated Diff #### [address] [address] ED Clinical Summaryon 2023 ED Clinical Summary [address] [id number] ED Clinical Summary Person Information Name: Donnie Bullock/[facility] Age: 67 Years : 1955 Sex: Female PCP: Remigio Simpson MD Marital Status: Phone: Race: White Ethnicity: Not or Language: Thai [facility]: [id number] Visit Reason: Psychiatric screening exam; psych screen Acuity: 2 Enc Type: Emergency Med Service: Emergency Medicine Arrival: 05/20/2023 13:12:08 Discharge: 05/20/2023 17:38:00 LOS: 000 04:26 Checkin: 05/20/2023 13:12:08 Checkout: 05/20/2023 17:38:00 Dispo Type: Home or Self Care Address: [address] [place], [place] [address] [id number] Provider Notes: Diagnosis: 1:Encounter for medical screening [...] range between ( 27.2 and 40.8 ) Emery Auto: 5.2 % -- Normal range between [...] range between ( 36.0 and 46.0 ) Emery Absolute: 0.3 x10 MCH: 30.1 pg -- [...] Physician: Referring Physician: Provider Role Assigned Unassigned Ofelia ROGERS, Anuj Orta ED Provider 05/20/2023 13:39:39 Mary ROGERS, Sherri Wiggins ED Provider 05/20/2023 15:28:08 Follow up: With: Address: When: [facility] With: Address: When: Remigio Simpson [address] [place] [phone] Business (1) Within 1 week Discharge Orders: Discharge Patient 05/20/23 17:30:00 EST, Discharge to Home, Self Patient Education Information: Anxiety Reaction [facility] Poison Help line: . [facility] Hotline: [place] Tobacco Quit Line: [facility] ([place], [place]) [address]: [phone] [place], [place]) [address]: (more content not included)... Normal [facility] ED Note-Nursingon 05-20-2023 ED Note-Nursing Patients reports patient had covid 04/21/23 and most of her symptoms are stemming from that; increased memory loss, confusion, weight loss, panic attacks. Patient did take Paxlovid. Patient was seen at [facility] on Wednesday and taken off Xanax as they felt her hallucinations could be from that, and they prescribed hydroxizine. Patient appears anxious upon supervisor quilting and tearful at times. Patient denies SI and HI but is frustrated that she is having these issues and is not her normal self. Electronically signed by Odalys Munroe 05/20/23 14:33 EST Normal [facility] ED Note-Physicianon 05-20-19 ED Note-Physician Chief Complaint pt was sent over by her therapist for a screening. Anxiety has been increasing as well as visual hallucinations ED Attending Attestation 67 presenting for anxiety. The patient was sent over by her therapist. I have assumed care of the patient from Dr. Wynn], who has discussed the clinical presentation, work-up, [...] High Lymph Auto 05/20/23 15:21 22.8 Low Emery Auto 05/20/23 15:21 5.2 Eos Auto 05/20/23 15:21 0.4 Basophil Auto 05/20/23 15:21 0.5 Neutro Absolute 05/20/23 15:21 4.0 Lymph Absolute 05/20/23 15:21 1.3 Emery Absolute 05/20/23 15:21 0.3 Eos Absolute 05/20/23 [...] By: Tremayne Butler MD Electronically signed by [place] Sherri ROGERS 05/25/23 20:00 EST Normal [facility] ED Note-Physician Chief Complaint pt was [...] obtain a CT head and have social security assessor speak with the patient she was sent in by her therapist that she describes it Sign out to Dr. Hernandez at the end of my shift for disposition and social security assessor recommendation Assessment/Plan Psychiatric screening exam (Complaint of) [...] MD / (more content not included)... Normal [facility] Ethanolon 05-20-2023 Ethanol, Plasma <10 Normal <=9 [facility] Comment on above: Result Comment: To c onvert mg/dL to g/dL, divide result by 1,000. Legal limit of intoxication is 80 mg/dL (0.08 g/dL). Performed By: #### A LC #### [place] [address] UDS Compon 05-20-2023 Creatinine [Mass/Vol] 100.2 mg/dL Normal Bl [facility] Comment on above: Performed By: #### C [id number] #### [address] [address] Ur Amph Scrn Negative Normal NEG = <1000 [facility] Comment on above: Performed By: #### C [id number] #### [address] [address] Ur Gabriela Scrn Negative Normal NEG = <200 [facility] Comment on above: Performed By: #### C [id number] #### [address] [address] Ur Benzodia Scrn Negative Normal NEG = <200 [facility] Comment on above: Performed By: #### C [id number] #### [address] [address] Ur Cannab Scrn Negative Normal NEG = <50 [facility] Comment on above: Performed By: #### C [id number] #### [place] [address] [place] [address] Ur Cocaine Scrn Negative Normal NEG = <300 [facility] Comment on above: Performed By: #### C [id number] #### [address] [address] Ur Methadone Scn Negative Normal NEG = <300 [facility] Comment on above: Performed By: #### C [id number] #### [address] [address] Ur Opiate Scrn Negative Normal NEG = <300 [facility] Comment on above: Performed By: #### C [id number] #### [address] [address] Ur Oxy Screen Negative Normal NEG = <100 [facility] Comment on above: Performed By: #### C [id number] #### [address] [address] Ur Oxy Scrn Qnt 9 ng/mL Normal <=99 [facility] Comment on above: Performed By: #### C [id number] #### [address] [address] Ur PCP Scrn Negative Normal NEG = <25 [facility] Comment on above: Performed By: #### C [id number] #### [address] [address] UA pH 7.0 Normal 4.5 - 7.8 [facility] Comment on above: Performed By: #### C [id number] #### [address] [address] UA Spec Grav 1.013 Normal 1.003-1.035 [facility] Comment on above: Performed By: #### C [id number] #### [address] [address] Outside Colonoscopyon 2022 Outside Colonoscopy [id number]. [id number]:127 [facility] Reminderson 01-28-2023 Reminders - From: Sarah Griffiths LPN To: Marilu - Clinical; Sent: 01/28/2023 13:00:59 EDT Show up: 12/27/2032 07:00:00 EDT Subject: colonoscopy recall Due Date/Time: 01/27/2033 07:00:00 EDT Reminder/Recall Patient due for screening colonoscopy 01/27/2033. [facility] Consent for Procedure/Surger yon 01-12-2023 Consent for Procedure/Surgery [id number]:127 [facility] Ambulatory Visit Summaryon 0 01-08-2023 Ambulatory Visit [...] longer receiving treatment for. Carpal tunnel Normal [facility] RAD - CT Reporton 01-07-2023 [address] - [address] Report [id number] .[id number]:127 Normal [facility] Physician Referralon 023 Physician Referral [id number] .[id number]:127 Normal [facility] CBC AUTO DIFFon 09-10-2022 BASO # 0.0 103/ul Normal 0.0-0.1 [facility] Comment on above: Performed By: #### C BC #### [facility] [address] [place] [address] Dr. Jess Marie Basophils/100 WBC (Bld) 0.4 % Normal 0.2-2.0 [facility] Comment on above: Performed By: #### C BC #### [facility] [address] [place] [address] Dr. Jess Marie EO # 0.0 103/ul Normal 0.0-0.7 [facility] Comment on above: Performed By: #### C BC #### [facility] [address] [place] [address] Dr. Jess Marie Eosinophils/100 WBC (Bld) 0.4 % Critically low 0.9-7.0 [facility] Comment on above: Performed By: #### C BC #### [facility] [address] [place] [address] Dr. Jess Marie Erythrocyte distribution width (RBC) [Ratio] 12.5 % Normal 11.0-15.0 [facility] Comment on above: Performed By: #### C BC #### [facility] [address] [place] [address] Dr. Jess Marie Hematocrit (Bld) [Volume fraction] 43.1 % Normal 36.0-48.0 [facility] Comment on above: Performed By: #### C BC #### [facility] [address] [place] [address] Dr. Jess Marie Hemoglobin (Bld) [Mass/Vol] 14.0 g/dL Normal 12.0-16.0 [facility] Comment on above: Performed By: #### C BC #### [facility] [address] [place] [address] Dr. Jess Marie IG # 0.01 10e3/ul Normal 0.00-0.03 [facility] Comment on above: Performed By: #### C BC #### [facility] [address] [place] [address] Dr. Jess Marie IG % 0.2 % Normal 0.0-0.5 [facility] Comment on above: Performed By: #### C BC #### [facility] [address] [place] [address] Dr. Jess Marie LYMPH # 1.4 103/ul Normal 1.2-3.8 [facility] Comment on above: Performed By: #### C BC #### [facility] [address] [place] [address] Dr. Jess Marie Lymphocytes/100 WBC (Bld) 26.8 % Normal 20.5-60.0 [facility] Comment on above: Performed By: #### C BC #### [facility] [address] [place] [address] Dr. Jess Marie MANUAL DIFF REQ NO Normal [facility] Comment on above: Performed By: #### C BC #### [facility] [address] [place] [address] Dr. Jess Marie MCH (RBC) [Entitic mass] 29.7 pg Normal 26.7-34.0 [facility] Comment on above: Performed By: #### C BC #### [facility] [address] [place] [address] Dr. Jess Marie MCHC (RBC) [Mass/Vol] 32.5 g/dL Normal 29.9-35.2 [facility] Comment on above: Performed By: #### C BC #### [facility] [address] [place] [address] Dr. Jess Marie MCV (RBC) [Entitic vol] 91.3 fL Normal 81.0-99.0 [facility] Comment on above: Performed By: #### C BC #### [facility] [address] [place] [address] Dr. Jess Marie MONO # 0.3 103/ul Normal 0.3-0.8 [facility] Comment on above: Performed By: #### C BC #### [facility] [address] [place] [address] Dr. Jess Marie Monocytes/100 WBC (Bld) 5.2 % Normal 1.7-12.0 [facility] Comment on above: Performed By: #### C BC #### [facility] [address] [place] [address] Dr. Jess Marie NEUT # 3.5 103/ul Normal 1.4-6.5 [facility] Comment on above: Performed By: #### C BC #### [facility] [address] [place] [address] Dr. Jess Marie Neutrophils/100 WBC (Bld) 67.0 % Normal 43.0-75.0 [facility] Comment on above: Performed By: #### C BC #### [facility] [address] [place] [address] Dr. Jess Marie Platelet mean volume (Bld) [Entitic vol] 9.7 fL Normal 9.5-13.5 [facility] Comment on above: Performed By: #### C BC #### [facility] [address] [place] [address] Dr. Jess Marie PLT 230 103/ul Normal 150-450 [facility] Comment on above: Performed By: #### C BC #### [facility] [address] [place] [address] Dr. Jess Marie RBC 4.72 106/ul Normal 4.20-5.40 [facility] Comment on above: Performed By: #### C BC #### [facility] [address] [place] [address] Dr. Jess Marie WBC 5.2 103/ul Normal 4.0-11.0 [facility] Comment on above: Performed By: #### C BC #### [facility] [address] [address] [address] Jess Marie GLYCOHEMOGLOBIN A1Con 2022 ADA RECOMMENDATION SEE BELOW Normal [facility] Comment on above: Result Comment: ADA RECOMMENDED LIMIT 4.0 - 6.0 ADA THERAPEUTIC TARGET < 7.0 ACTION SUGGESTED > 7.0 Performed By: #### A 1C #### [facility] [address] [place] [address] Dr. Jess Marie Glucose [Mass/Vol] 123 mg/dL Normal [facility] Comment on above: Performed By: #### A 1C #### [facility] [address] [place] [address] Dr. Jess Marie HbA1c (Bld) [Mass fraction] 5.9 % Normal 4.5-6.2 [facility] Comment on above: Performed By: #### A 1C #### [facility] [address] [place] [address] Dr. Jess Marie LIPID PROFILEon 09-10-2022 CHOL-HDL RATIO NORM SEE BELOW Normal [facility] Comment on above: Result Comment: 3.3 - 4.4 LOW RISK 4.4 - 7.1 AVERAGE RISK 7.1 - 11.0 MODERATE RISK >11.0 HIGH RISK Performed By: #### T SH, LIVER, BMP, LIPID #### [facility] [address] [place] [address] Dr. Jess Marie Cholesterol [Mass/Vol] 267 mg/dL Critically high <=200 [facility] Comment on above: Performed By: #### T SH, LIVER, BMP, LIPID #### [facility] [address] [place] [address] Dr. Jess Marie Cholesterol in HDL [Mass/Vol] 79 mg/dL Critically high 40-60 [facility] Comment on above: Performed By: #### T SH, LIVER, BMP, LIPID #### [facility] [address] [place] [address] Dr. Jess Marie Cholesterol in LDL [Mass/Vol] 172.4 mg/dL Normal [facility] Comment on above: Performed By: #### T SH, LIVER, BMP, LIPID #### [facility] [address] [address] [address] Jess Marie Cholesterol.total/Mandie sterol in HDL [Mass ratio] 3.4 {ratio} Normal [facility] Comment on above: Performed By: #### T SH, LIVER, BMP, LIPID #### [facility] [address] [address] [address] Jess Marie HDL NORMAL > or = 60 mg/dl - LO W CARDIOVASCULAR RISK <40 mg/dl - HIGH CARDIOVASCULAR RISK Normal [facility] Comment on above: Performed By: #### T SH, LIVER, BMP, LIPID #### [facility] [address] [address] [address] Jess Marie LDL CALC NORMAL SEE BELOW Normal [facility] Comment on above: Result Comment: <100 mg/dl OPTIMAL 100 - 129 mg/dl NEAR OR ABOVE OPTIMAL 130 - 159 mg/dl BORDERLINE HIGH 160 - 189 mg/dl HIGH >190 mg/dl VERY HIGH Performed By: #### T SH, LIVER, BMP, LIPID #### [facility] [address] [address] [address] Jess Marie Triglyceride [Mass/Vol] 78 mg/dL Normal <=150 [facility] Comment on above: Performed By: #### T SH, LIVER, BMP, LIPID #### [facility] [address] [address] [address] Jess Marie VLDL CALC 15.6 mg/dL Normal [facility] Comment on above: Performed By: #### T SH, LIVER, BMP, LIPID #### [facility] [address] [address] [address] Jess Marie LIVER PROFILEon 09-10-2022 Albumin [Mass/Vol] 3.9 g/dL Normal 3.4-5.0 [facility] Comment on above: Performed By: #### T SH, LIVER, BMP, LIPID #### [facility] [address] [address] [address] Jess Marie Albumin/Globulin [Mass ratio] 0.9 {ratio} Normal [facility] Comment on above: Performed By: #### T SH, LIVER, BMP, LIPID #### [facility] [address] [address] [address] Jess Marie ALP [Catalytic activity/Vol] 61 U/L Normal 46-116 [facility] Comment on above: Performed By: #### T SH, LIVER, BMP, LIPID #### [facility] [address] [address] [address] Jess Marie ALT [Catalytic activity/Vol] 25 U/L Normal 14-59 [facility] Comment on above: Performed By: #### T SH, LIVER, BMP, LIPID #### [facility] [address] [address] [address] Jess Marie AST [Catalytic activity/Vol] 27 U/L Normal 15-37 [facility] Comment on above: Performed By: #### T SH, LIVER, BMP, LIPID #### [facility] [address] [place] [address] Dr. Jess Marie BILI, CONJUGATED 0.1 mg/dL Normal 0.0-0.2 [facility] Comment on above: Performed By: #### T SH, LIVER, BMP, LIPID #### [facility] [address] [place] [address] Dr. Jess Marie Bilirubin [Mass/Vol] 0.7 mg/dL Normal 0.2-1.0 [facility] Comment on above: Performed By: #### T SH, LIVER, BMP, LIPID #### [facility] [address] [address] [address] Jess Marie Globulin (S) [Mass/Vol] 4.2 g/dL Normal [facility] Comment on above: Performed By: #### T SH, LIVER, BMP, LIPID #### [facility] [address] [place] [address] Dr. Jess Marie Protein [Mass/Vol] 8.1 g/dL Normal 6.4-8.2 [facility] Comment on above: Performed By: #### T SH, LIVER, BMP, LIPID #### [facility] [address] [place] [address] Dr. Jess Marie PROF CHEM 8 (BAS METB)on Anion gap [Moles/Vol] 13.1 mmol/L Normal [facility] Comment on above: Performed By: #### T SH, LIVER, BMP, LIPID #### [facility] [address] [address] [address] Jess Marie Calcium [Mass/Vol] 9.6 mg/dL Normal 8.5-10.1 [facility] Comment on above: Performed By: #### T SH, LIVER, BMP, LIPID #### [facility] [address] [address] [address] Jess Marie Chloride [Moles/Vol] 105 mmol/L Normal 98-107 [facility] Comment on above: Performed By: #### T SH, LIVER, BMP, LIPID #### [facility] [address] [address] [address] Jess Marie CO2 [Moles/Vol] 28.9 mmol/L Normal 21.0-32.0 [facility] Comment on above: Performed By: #### T SH, LIVER, BMP, LIPID #### [facility] [address] [address] [address] Jess Marie Creatinine [Mass/Vol] 0.62 mg/dL Normal 0.55-1.02 [facility] Comment on above: Performed By: #### T SH, LIVER, BMP, LIPID #### [facility] [address] [address] [address] Jess Marie EGFR-AF CYMRO >60 Normal >=60 [facility] Comment on above: Performed By: #### T SH, LIVER, BMP, LIPID #### [facility] [address] [address] [address] Jess Marie EGFR-NON AF CYMRO >60 Normal >=60 [facility] Comment on above: Performed By: #### T SH, LIVER, BMP, LIPID #### [facility] [address] [address] [address] Jess Marie Glucose [Mass/Vol] 112 mg/dL Critically high 74-106 [facility] Comment on above: Performed By: #### T SH, LIVER, BMP, LIPID #### [facility] [address] [address] [address] Jess Marie Potassium [Moles/Vol] 5.0 mmol/L Normal 3.5-5.1 [facility] Comment on above: Result Comment: spec imen slightly hemolyzed Performed By: #### T SH, LIVER, BMP, LIPID #### [facility] [address] [address] [address] Jess Marie Sodium [Moles/Vol] 142 mmol/L Normal 136-145 [facility] Comment on above: Performed By: #### T SH, LIVER, BMP, LIPID #### [facility] [address] [address] [address] Jess Marie Urea nitrogen [Mass/Vol] 15.0 mg/dL Normal 7.0-18.0 [facility] Comment on above: Performed By: #### T SH, LIVER, BMP, LIPID #### [facility] [address] [place] [address] Dr. Jess Marie Urea nitrogen/Creatinine [Mass ratio] 24.2 mg/mg Normal [facility] Comment on above: Performed By: #### T SH, LIVER, BMP, LIPID #### [facility] [address] [place] [address] Dr. Jess Marie TSHon 09-10-2022 TSH 1.518 uIU/mL Normal 0.358-3.740 [facility] Comment on above: Performed By: #### T SH, LIVER, BMP, LIPID #### [facility] [address] [place] [address] Dr. Jess Marie US CAROTID ART BILon [...] HERSON REBOLLEDO Date: 2022-09-10 12:26 Normal [facility] XR ABD FLAT_UPon 06-10-2022 XR ABD FLAT_UP [...] HERSON REBOLLEDO Date: 2022-06-10 08:38 Normal [facility] Covid-19 PCR ([facility])on 10-16 SARS-CoV-2 (COVID-19) RNA YAYA+probe Ql (Unsp spec) Not detected Normal NOT DETECTED [facility] Comment on above: Result Comment: This test is not yet approved or cleared by the [place] FDA. When there are no FDA-approved or cleared tests available, and other criteria are met, FDA can make tests available under an emergency access mechanism called an Emergency Use Authorization (EUA). The EUA for this test is supported by the [place] of Health and Human Service's (HHS's) declaration [...] consistent with SARS-CoV-2. Performed By: #### [facility] #### [facility] [address] [place] [address] Dr. Jess Marie Vital Signs Date Time Vital Sign Value Performing Clinician Faci lity 09-22-2023 07:30-0400 Body temperature 98 [degF] MD Remigio Simpson Work Phone: [facility] 09-22-2023 07:30-0400 Diastolic blood pressure 60 mm[Hg] MD Remigio Simpson Work Phone: [facility] 09-22-2023 07:30-0400 Heart rate 73 /min MD Remigio Simpson Work Phone: [facility] 09-22-2023 07:30-0400 Respiratory rate 18 /min MD Remigio Simpson Work Phone: [facility] 09-22-2023 07:30-0400 SaO2% (BldA) [Mass fraction] 99 % MD Remigio Simpson Work Phone: [facility] 09-22-2023 07:30-0400 Systolic blood pressure 107 mm[Hg] MD Remigio Simpson Work Phone: [facility] 09-21-2023 08:44-0400 Body height 165.1 cm MD Remigio Simpson Work Phone: [facility] 09-20-2023 08:42-0400 Body weight 67.6 kg MD Remigio Simpson Work Phone: [facility] 09-14-2023 22:32-0400 Body temperature 98 [degF] MD Remigio Simpson Work Phone: [facility] 09-14-2023 22:32-0400 Diastolic blood pressure 70 mm[Hg] MD Remigio Simpson Work Phone: [facility] 09-14-2023 22:32-0400 Heart rate 81 /min MD Remigio Simpson Work Phone: [facility] 09-14-2023 22:32-0400 Respiratory rate 18 /min MD Remigio Simpson Work Phone: [facility] 09-14-2023 22:32-0400 SaO2% (BldA) [Mass fraction] 97 % MD Remigio Simpson Work Phone: [facility] 09-14-2023 22:32-0400 Systolic blood pressure 136 mm[Hg] MD Remigio Simpson Work Phone: [facility] 09-14-2023 19:45-0400 Body height 165.1 cm MD Remigio Simpson Work Phone: [facility] 09-14-2023 19:45-0400 Body weight 66.85 kg MD Remigio Simpson Work Phone: [facility] 06-08-2023 07:30-0500 Body temperature 97.6 [degF] [facility] 06-08-2023 07:30-0500 Diastolic blood pressure 62 mm[Hg] [facility] 06-08-2023 07:30-0500 Heart rate 75 /min [facility] 06-08-2023 07:30-0500 Respiratory rate 16 /min [facility] 06-08-2023 07:30-0500 SaO2% (BldA) [Mass fraction] 97 % [facility] 06-08-2023 07:30-0500 Systolic blood pressure 110 mm[Hg] [facility] 06-07-2023 09:00-0500 Body weight 67.5 kg [facility] 06-04-2023 10:17-0500 Body height 166.37 cm [facility] 05-25-2023 14:29-0500 Diastolic blood pressure 80 mm[Hg] DO Robert Zuly Work Phone: [facility] 05-25-2023 14:29-0500 Heart rate 91 /min DO Robert Zuly Work Phone: [facility] 05-25-2023 14:29-0500 Respiratory rate 18 /min DO Robert Zuly Work Phone: [facility] 05-25-2023 14:29-0500 SaO2% (BldA) [Mass fraction] 98 % DO Robert Zuly Work Phone: [facility] 05-25-2023 14:29-0500 Systolic blood pressure 110 mm[Hg] DO Robert Zuly Work Phone: [facility] 05-25-2023 13:06-0500 Body temperature 98.3 [degF] DO Robert Zuly Work Phone: [facility] 05-25-2023 11:38-0500 Body height 165.1 cm DO Robert Zuly Work Phone: [facility] 05-25-2023 11:38-0500 Body weight 68.1 kg DO Robert Zuly Work Phone: [facility] 01-08-2023 13:49-0400 Diastolic blood pressure 94 mm[Hg] Amor HOLLY [facility] [place] 01-08-2023 13:49-0400 Heart rate 80 /min Amor JANL [facility] 01-08-2023 13:49-0400 Respiratory rate 16 /min Amor MONTOYAL [facility] 01-08-2023 13:49-0400 Systolic blood pressure 136 mm[Hg] Amor MONTOYAL [facility] Encounters Encounter Date Encounter Type Care Provider Facility Start: 09-27-2023 End: 09-27-2023 ambulatory MONICA SILVER Not Available Start: 09-15-2023 Non-patient / Non-visit MD Remigio Simpson Work Phone: [facility] Work Phone: Start: 09-15-2023 End: 09-22-2023 Evaluation and management of inpatient Sridhar Hoffman Facility:[facility] Start: 09-14-2023 End: 09-22-2023 Evaluation and management of inpatient MD Remigio Simpson Work Phone: [facility] Work Phone: Start: 09-08-2023 End: 09-08-2023 ambulatory REI FRANZ Not Available Start: 09-06-2023 End: 09-06-2023 ambulatory REI MARTINEZETT Not Available Start: 08-02-2023 End: 08-02-2023 ambulatory HERSON SALAZAR Not Available Start: 07-19-2023 End: 07-19-2023 [...] management of inpatient Remigio Simpson Facility:[facility] Start: 05-25-2023 Evaluation and management of inpatient DO Robert Zuly Work Phone: [facility] Work Phone: Start: 05-25-2023 Non-patient / Non-visit [facility] Work Phone: Start: 05-25-2023 ambulatory Remigio Simpson Facility:[facility] Start: 05-20-2023 End: 05-20-2023 Emergency department patient visit Remigio Simpson MD Facility:[facility] Start: 01-27-2023 End: 01-28-2023 ambulatory Amor Pollock AVNI Facility:CD:[id number] Start: 01-08-2023 End: 01-09-2023 ambulatory Amor R JANL Facility:[facility] Start: 01-08-2023 End: 01-08-2023 Patient encounter procedure Amor Pollock JANL [facility] Start: 12-30-2022 ambulatory Amor Maris AVNI Facility :[facility] [place] Start: 09-10-2022 End: 09-11-[address] REMIGIO [...] Treatment Date Care Activity Detail Author Start: 09-22-2023 [facility] Start: 09-15-2023 Administration of prophylactic treatment [facility] Start: 09-14-2023 Hospital admission [facility] Start: 09-06-2023 End: 09-06-2023 Patient encounter procedure 09/06/2023 9:00 AM EDT Office Visit [facility] [address] [place] [address] Remigio Simpson MD [address] [place] [address] [facility] Start: 06-30-2023 End: 06-30-2024 Bacteria identified in Urine by Culture Urine culture (clean catch) Microbiology Routine Dysuria Expected: 06/30/2023 (Approximate), Expires: 06/30/2024 [facility] Comment on above: Expected: 06/30/2023 (Approximate), Expires: 06/30/2024 Start: 06-30-2023 End: 06-30-2024 Urinalysis complete panel - Urine Urinalysis with reflex microscopic (clean catch) Lab Routine Dysuria Expected: 06/30/2023 (Approximate), Expires: 06/30/2024 [facility] Work Phone: Comment on above: Expected: 06/30/2023 (Approximate), Expires: 06/30/2024 Start: 06-08-2023 [facility] Start: 05-26-2023 Administration of prophylactic treatment [facility] Start: 05-25-2023 Hospital admission [facility] Start: 05-25-2023 [facility] Start: 03-09-2021 Pneumococcal Vaccine : 65+ Years (2 - PCV) Pneumococcal Vaccine: 65+ Years (2 - PCV) [facility] Start: 1993 Screening for malign ant neoplasm of breast Mammogram [facility] Start: 1955 Medicare Annual Well ness (AWV) Medicare Annual Wellness (AWV) [facility] Start: 1955 Screening for malign ant neoplasm of colon [facility] Patient Education [facility] Work Phone: Patient referral [facility] Work Phone: Immunizations Immunization Date Immunization Notes Care Provider Fa cility 03-17-2022 SARS-CoV-2 (COVID-19 ) [id number] Amor MONTOYAL [facility] [place] 10-05-2021 SARS-CoV-2 mRNA (ajbranyfgmy-ngcf-fmdhz se) vaccine Amor NILL [facility] [place] 03-06-2021 SARS-CoV-2 (COVID-19 ) mRNA BNT-162b2 vax Amor NILL [facility] [place] 07-30-2020 SARS-CoV-2 (COVID-19 ) mRNA BNT-162b2 vax Amor NILL [facility] [place] Comment on above: Result Comment: 2022: [id number] 07-09-2020 SARS-CoV-2 (COVID-19 ) mRNA BNT-162b2 vax Amor MONTOYAL [facility] [place] Comment on above: Result Comment: 2022: [id number] Payers Date Payer Category Payer Self-pay 2018 Medicare 2014 Unknown 1959 Medicare [id number] 1961 Unknown [id number] 1955 Unknown [id number] 2.16.84 [id number] 1953 Unknown [id number] 2.16.84 [id number] 1953 Unknown [id number] 2.16.84 [id number] 1953 Unknown [id number] 2.16.84 0.1.294816.3.579.2.593 1953 Unknown [id number] 2.16.8 40.1.240745.3.579.2.727 1953 Unknown [id number] 2.16.8 40.1.552426.3.579.2.727 1953 Unknown [id number] 2.16.8 40.1.100888.3.579.2.727 1953 Unknown [id number] 2.16. [id number] 1953 Unknown [id number] 2.16.84 0.1.089558.3.579.2.1259 1953 Unknown [id number] 2.16.84 0.1.836837.3.579.2.1259 1953 Unknown [id number] 2.16.84 0.1.461633.3.579.2.1259 1953 Unknown [id number] 2.16.84 0.1.529207.3.579.2.1259 1953 Unknown [id number] 2.16.84 0.1.509684.3.579.2.1259 1953 Unknown [id number] 2.16.84 0.1.802584.3.579.2.1259 Unknown [id number] 2.16.8 40.1.070928.3.579.2.531 Unknown [id number] 2.16.8 40.1.378062.3.579.2.531 Unknown [id number] 2.16.8 40.1.184571.3.579.2.531 Social History Date Type Detail Facility Start: 01-08-2023 End: 09-15-2023 Tobacco smoking status Never smoked tobacco (finding) [facility] Tobacco smoking status Never [facility] Start: 06-09-2023 Sex Assigned At Female F [facility] Start: 1955 Sex Assigned At Female F [facility] Start: 06-09-2023 Tobacco use and exposure Smokeless tobacco non-user [facility] Start: 06-09-2023 Alcohol intake Defer [facility] Start: 06-09-2023 History of Social function [facility] Start: 12-31-2022 Education 15 [facility] Start: 1955 Sex Assigned At Not on file [facility] Goals Date Patient Goal Desired Activity /State Functional Status Date Assessment Result Facility 09-22-2023 Functional status Patient at Baseline [facility] Work Phone: 01-08-2023 Functional Status N/A [facility] Mental Status Date Assessment Result Facility 09-22-2023 Cognitive function Cognitive Sta tus Patient at Baseline [facility] Work Phone: Clinical Notes 03-12-2022 to 09-22-2023 Note Date & Type Note Facility 09-22-2023 Progress note Note Date/Time September 22, 2023 9:37am [facility] [address] [place] [address] Psychiatry Progress Note Signed Patient: Donnie Bullock MR#: [id number] : 1955 Acct:[id number] Age/Sex: 67 / F Adm Date: 4 Loc: Room: [address] [place] [address] Type : ADM IN Attending Dr: Sridhar Hoffman MD Copies to: ~ Date of Service: 09/21/2023 Subjective Subjective Narrative: Ms. Bullock reports that she is doing okay. I spoke to her and explained the case in details. Patient has neurocognitive disorder and she is expected tohave gradual decline in her memory. She is currently oriented x 3. She is not making bizarre comments. The patient denies current suicidal or homicidal ideation, and verbalized the intent to notify staff if there are such thoughts. The patient denies recent suicidal or self injurious behaviors. Mental Status Exam: Appearance: dressed casually Mental Status: mental status grossly normal Mood: Euthymic mood Affect: Normal affect Speech and Movement: speech and movement normal and speech clear Attitude: cooperative Thought Process: normal Thought Content: Denied hallucinations, no homicidality and no suicidality Insight: Limited Judgment: Limited Impulse control: fair Exam Physical Exam Vital Signs: Temp Pulse Resp BP Pulse Ox O2 Del Method 98.0 F 77 18 104/69 96 Room Air 09/21/23 19:40 09/21/23 19:40 09/21/23 19:40 09/21/23 19:40 09/21/23 19:40 09/21/23 19:40 Assessment/Plan Assessment/Plan (1) Major neurocognitive disorder: (2) Depression: (3) Anxiety: Plan Patient reports feeling better and denied SI/HI. Continue Haldol 0.5 in the morning and 1 mg at bedtime Continue mirtazapine 7.5 mg at bedtime, hydroxyzine 25mg Continue to monitor mental status Encourage group participation and medication compliance Risk benefits alternatives explained Documented By: Lionel Still MD [id number] Signed By: <Electronically signed by Lionel Still MD> 09/22/23 0937 [facility] Work Phone: 1(291) 346-709605-07-2024 Progress note Author Lionel kingsley [facility] September 20, 2023 10:19pm Note Date/Time September 20, 2023 10:19p m [facility] [address] [place] [address] Psychiatry Progress Note Signed Patient: Donnie Bullock MR#: [id number] : 1955 Acct:[id number] Age/Sex: 67 / F Adm Date: 4 Loc: Room: [address] [place] [address] Type : ADM IN Attending Dr: Sridhar Hoffman MD Copies to: ~ Date of Service: 09/20/2023 Subjective Subjective Narrative: Ms. Bullock reports that she is doing okay. She states that she still feels sedated and groggy from the medication. She states she is not sure if she sleptokay, but she stated that the nurse told her she did not wake up throughout the night. She states yesterday she became very anxious and was given medication bythe nurse which made her sleepy, but states that it helped her anxiety Patient was personally seen by me on the day of the encounter. I reviewed the history and performed the rowland elements of the assessment. I formulated the planof care and confirmed this with the medical student as noted below Mental Status Exam: Appearance: grossly normal Mental Status: mental status grossly abnormal Mood: Improving mood Affect: Flat affect Speech and Movement: speech normal, movement normal Attitude: cooperative Thought Process: Confused Thought Content: Denied hallucinations, no homicidality, denies suicidality Insight: fair Judgment: fair Exam Physical Exam Vital Signs: Temp Pulse Resp BP Pulse Ox O2 Del Method 98 F 75 18 117/77 99 Room Air 09/20/23 07:30 09/20/23 07:30 09/20/23 07:30 09/20/23 07:30 09/20/23 07:30 09/20/23 08:39 Assessment/Plan Assessment/Plan (1) Major neurocognitive disorder: (2) Depression: (3) Anxiety: Plan Continue Haldol 0.5 in the morning and 1 mg at bedtime Continue mirtazapine 7.5 mg at bedtime, hydroxyzine 25mg Continue to monitor mental status Encourage group participation and medication compliance Risk benefits alternatives explained Documented By: Lionel Still MD 4 1004 Signed By: <Electronically signed by Lionel Still MD> 09/20/23 9460 [facility] Work Phone: 1(527) 307-313105-05-2024 Progress note Author Sridhar Hoffman [facility] September 19, 2023 11:52am Note Date/Time September 19, 2023 11:51a m [facility] [address] [place] [address] Psychiatry Progress Note Signed Patient: Donnie Bullock MR#: [id number] : 1955 Acct:[id number] Age/Sex: 67 / F Adm Date: 4 Loc: Room: [address] [place] [address] Type : ADM IN Attending Dr: Sridhar Hoffman MD Copies to: ~ Date of Service: 09/19/2023 Subjective Subjective Narrative: Ms. Bullock reported that she is doing okay. She stated that she feels sedated and groggy from the medication. She reported that she did not sleep well last night because the group was having a celebration. She reported that she is out of school in [place]. Mental Status Exam: Appearance: grossly normal Mental Status: mental status grossly abnormal Mood: Improving mood Affect: Constricted affect Speech and Movement: speech normal, movement normal Attitude: cooperative Thought Process: Confused Thought Content: Denied hallucinations, no homicidality, denies suicidality Insight: fair Judgment: fair Exam Physical Exam Vital Signs: Temp Pulse Resp BP Pulse Ox O2 Del Method 98.0 F 70 16 117/63 98 Room Air 09/19/23 07:30 09/19/23 07:30 09/19/23 07:30 09/19/23 07:30 09/19/23 07:30 09/19/23 09:00 Assessment/Plan Assessment/Plan (1) Major neurocognitive disorder: (2) Depression: (3) Anxiety: Plan Patient slightly confused and not oriented to place Continue Haldol 0.5 in the morning and 1 mg at bedtime Continue mirtazapine 7.5 mg at bedtime, hydroxyzine 25mg Continue to monitor mental status Encourage group participation and medication compliance Risk benefits alternatives explained Documented By: Sridhar Hoffman MD 09/19/23 1150 Signed By: <Electronically signed by Sridhar Hoffman MD> 09/19/23 1152 [facility] Work Phone: 1(686) 880-842805-04-2024 Progress note Author Sridhar Hoffman [facility] September 18, 2023 10:54am Note Date/Time September 18, 2023 10:53a m [facility] [address] [place] [address] Psychiatry Progress Note Signed Patient: Donnie Bullock MR#: [id number] : 1955 Acct:[id number] Age/Sex: 67 / F Adm Date: 4 Loc: Room: [address] [place] [address] Type : ADM IN Attending Dr: Sridhar Hoffman MD Copies to: ~ Date of Service: 09/18/2023 Subjective Subjective Narrative: Ms. Bullock reported that she is doing okay. She stated that she felt a bit dizzy. She reported that she has been sleeping little bit too much. She deniedany hallucinations at this time. She did discuss a dream that she had. Mental Status Exam: Appearance: grossly normal Mental Status: mental status grossly normal Mood: Improving mood Affect: Constricted affect Speech and Movement: speech normal, movement normal Attitude: cooperative Thought Process: Confused Thought Content: Denied hallucinations, no homicidality, denies suicidality Insight: fair Judgment: fair Exam Physical Exam Vital Signs: Temp Pulse Resp BP Pulse Ox O2 Del Method 98.2 F 72 16 134/74 100 Room Air 09/18/23 07:30 09/18/23 07:30 09/18/23 07:30 09/18/23 07:30 09/18/23 07:30 09/18/23 09:00 Assessment/Plan Assessment/Plan (1) Major neurocognitive disorder: (2) Depression: (3) Anxiety: Plan Patient still seems somewhat sedated Continue Haldol 0.5 in the morning and 1 mg at bedtime Continue mirtazapine 7.5 mg at bedtime Decrease hydroxyzine 25mg Continue to monitor mental status Encourage group participation and medication compliance Risk benefits alternatives explained Documented By: Sridhar Hoffman MD 09/18/23 105 Signed By: <Electronically signed by Sridhar Hoffman MD> 09/18/23 1054 [facility] Work Phone: 1(933) 261-337805-03-2024 Progress note Author Sridhar Hoffman [facility] September 17, 2023 11:40am Note Date/Time September 17, 2023 11:40a m [facility] [address] [place] [address] Psychiatry Progress Note Signed Patient: Donnie Bullock MR#: [id number] : 1955 Acct:[id number] Age/Sex: 67 / F Adm Date: 4 Loc: Room: [address] [place] [address] Type : ADM IN Attending Dr: Sridhar Hoffman MD Copies to: ~ Date of Service: 09/17/2023 Subjective Subjective Narrative: Ms. Bullock reported that she is doing okay. She stated that the medication makesher feel tired and shaky. She stated that she cannot see very well. Mental Status Exam: Appearance: grossly normal Mental Status: mental status grossly normal Mood: Improving mood Affect: Constricted affect Speech and Movement: speech normal, movement normal Attitude: cooperative Thought Process: Confused Thought Content: Denied hallucinations, no homicidality, denies suicidality Insight: fair Judgment: fair Exam Physical Exam Vital Signs: Temp Pulse Resp BP Pulse Ox O2 Del Method 97.7 F 70 16 103/68 100 Room Air 09/17/23 07:21 09/17/23 07:21 09/17/23 07:21 09/17/23 07:21 09/17/23 07:21 09/17/23 07:21 Assessment/Plan Assessment/Plan (1) Major neurocognitive disorder: (2) Depression: (3) Anxiety: Plan Patient does appear somewhat sedated today Decrease Haldol 0.5 in the morning and 1 mg at bedtime Continue mirtazapine 7.5 mg at bedtime Continue to monitor mental status Encourage group participation and medication compliance Risk benefits alternatives explained Documented By: Sridhar Hoffman MD 09/17/23 1138 Signed By: <Electronically signed by Sridhar Hoffman MD> 09/17/23 1140 [facility] Work Phone: 1(482) 841-204005-02-2024 Progress note Author Sridhar Hoffman [facility] September 16, 2023 12:53pm Note Date/Time September 16, 2023 12:53p m [facility] [address] [place] [address] Psychiatry Progress Note Signed Patient: Donnie Bullock MR#: [id number] : 1955 Acct:[id number] Age/Sex: 67 / F Adm Date: 4 Loc: Room: 3W0516-6 Type : ADM IN Attending Dr: Sridhar Hoffman MD Copies to: ~ Date of Service: 09/16/2023 Subjective Subjective Narrative: Ms. Bullock seems to be more confused today. She stated that the day started off well and then started talking about lunch. However it was 9 AM when I spoke with her. She stated that she is living off a different time. She stated that she woke up at 2 and that is 8:30 here. She reported that she did not experience any hallucinations overnight. She reported that she slept okay and appetite was normal. Mental Status Exam: Appearance: grossly normal Mental Status: mental status grossly normal Mood: Improving mood Affect: Constricted affect Speech and Movement: speech normal, movement normal Attitude: cooperative Thought Process: Confused Thought Content: Denied hallucinations, no homicidality, denies suicidality Insight: fair Judgment: fair Exam Physical Exam Vital Signs: Temp Pulse Resp BP Pulse Ox O2 Del Method 98.4 F 84 18 115/66 98 Room Air 09/15/23 19:29 09/16/23 08:00 09/16/23 08:00 09/16/23 08:00 09/16/23 08:00 09/16/23 08:00 Assessment/Plan Assessment/Plan (1) Major neurocognitive disorder: (2) Depression: (3) Anxiety: Plan Patient seeming more confused today and talking about living off a different time Continue Haldol 1 mg twice a day and mirtazapine 7.5 mg at bedtime Continue to monitor mental status Encourage group participation and medication compliance Risk benefits alternatives explained Documented By: Sridhar Hoffman MD 09/16/23 1252 Signed By: <Electronically signed by Sridhar Hoffman MD> 09/16/23 1253 [facility] Work Phone: 1(672) 813-844305-01-2024 History and physical note Author Sridhar Hoffman [facility] September 15, 2023 12:23pm Note Date/Time September 15, 2023 12:24p m [facility] [address] [place] [address] Psychiatry H&P Signed Patient: Donnie Bullock MR#: [id number] : 1955 Acct:[id number] Age/Sex: 67 / F Adm Date: 4 Loc: Room: [address] [place] [address] Type: ADM IN Attending Dr: Sridhar Hoffman MD Copies to: MD Remigio Jorge MD~ Date of Service: 09/15/2023 HPI History of Present Illness History of present illness: Ms. Bullock is a 67 year old female who presented due to concern for paranoid thoughts, suicidal thoughts and hallucinations. Upon assessment, patient reported that things were going okay but then she started to feel overwhelmed and anxious. She reported that she was doing laundry and felt super anxious and felt that even doing laundry was very overwhelming for her. According to the ER she also thought her laundry was coming alive and multiple things were coming at her. She stated that she told her to bring her to the hospital because she was getting very overwhelmed. When asked about suicidal thoughts she stated that she did not want to go to the pain of living the way she was living. It was documented thataiden told her to hide all the knives because she thought that she was going to hurt herself. She reported that she thought she saw an Moravian girl while here in the hospital. She reported that her appetite has been low. Past psych history: Depression, dementia, psychosis Past hospitalizations: 1 prior hospitalization for similar symptoms Past suicide attempts: Denies Family psych history: Denies Previous medications: Xanax Haldol, mirtazapine Alcohol and drug use: Denied any significant [...] gait and Denies abnormal movements Psychiatric: Reports depression, anxiety, and suicidal ideation Physical exam: Const: cooperative Nutritional Appearance: average [...] Mental Status: mental status grossly normal Mood: dysthymic mood Affect: dysphoric affect Speech and Movement: speech normal, movement normal Attitude: cooperative Thought Process: normal Thought Content: Denied hallucinations, no homicidality, reported suicidality Insight: fair Judgment: fair [facility] Medical History Osteopenia History of skin cancer on face, sees every 6 months Dementia Panic disorder Surgical History H/O: hysterectomy Family History Other No significant family history Social History Smoking Status: Never smoker Substance Use Type: None Meds Medications and Allergies Allergies No Known Allergies Allergy (Verified 05/25/23 11:42) Home Medications mirtazapine 7.5 mg tablet 7.5 mg PO QHS 30 days #30 tabs 06/08/23 [Rx Confirmed 09/14/23] haloperidol 0.5 mg tablet 0.5 mg PO BID 09/14/23 [History Confirmed 09/14/23] haloperidol 1 mg tablet 0.5 mg PO Q4-5H PRN anxiety 09/14/23 [History Confirmed 09/14/23] hydroxyzine HCl 25 mg tablet 25 mg PO BID 09/14/23 [History Confirmed 09/14/23] melatonin 10 mg tablet,extended release 10 mg PO QHS 09/14/23 [History Confirmed 09/14/23] morphine concentrate 100 mg/5 mL (20 mg/mL) oral solution 5 mg PO Q1-2H PRN pain09/14/23 [History Confirmed 09/14/23] sennosides 8.6 mg capsule (senna) 17.2 mg PO BID 09/14/23 [History Confirmed 09/14/23] lactulose 10 gram/15 mL oral solution 30 ml PO BID 09/15/23 [History Confirmed 09/15/23] Exam Physical Exam Vital Signs: Temp Pulse Resp BP Pulse Ox O2 Del Method 98.0 F 84 14 115/72 97 Room Air 09/15/23 07:30 09/15/23 07:30 09/15/23 07:30 09/15/23 07:30 09/15/23 07:30 09/15/23 07:30 Results - Psychiatry Labs 09/14/23 20:05 09/14/23 20:05 Psychiatry Labs: 09/14/23 09/14/23 20:05 20:11 RBC 3.98 Hgb 12.1 Hct 35.7 MCV 89.6 MCH 30.4 MCHC 34.0 RDW 13.0 Plt Count 246 MPV 7.3 Sodium 138 Potassium 3.8 Chloride 103 Carbon Dioxide 31.2 H Anion Gap 7.6 BUN 8 Creatinine 0.61 Calcium 9.8 Total Bilirubin 0.4 AST 18 ALT 20 Alkaline Phosphatase 43 Total Protein 6.2 L Albumin 4.0 Urine Color Yellow Urine Appearance Clear Urine pH 7.0 Ur Specific [place] 1.004 Urine Protein Negative Urine Glucose (UA) Normal Urine Ketones Negative Urine Occult Blood Negative Urine Nitrite Negative Ur Leukocyte Esterase Negative Assessment/Plan (1) Major neurocognitive disorder: (2) Depression: (3) Anxiety: Plan Patient presenting due to concern for depression, suicidal ideation and hallucinations Increase Haldol 1 mg twice a day and continue mirtazapine 7.5 mg at bedtime Continue to monitor mental status Encourage group participation and medication compliance Risk benefits alternatives explained Documented By: Sridhar Hoffman MD 09/15/23 1219 Signed By: <Electronically signed by Sridhar Hoffman MD> 09/15/23 1223 [facility] Work Phone: 1(874) 432-465302-14-2024 Telephone encounter Note* Telephone Encounter - Remigio Simpson MD - 06/30/2023 12:26 PM EST Patient with increased confusion and concerned of UTI. Please fax orders to [facility]. [id number] Miscellaneous Notes* Telephone Encounter - Remigio Simpson MD - 06/30/2023 12:26 PM EST Patient with increased confusion and concerned of UTI. Please fax orders to [facility]. documented in this encounterNORanken Jordan Pediatric Specialty [id number] Hospital Discharge instructions Additional Instructions Important Contact Information You can call [facility] Inpatient [facility]al Health at [phone] any time day or night if you have emergent questions or question regarding discharge instructions. If at any time you are feeling an increase in your psychiatric symptoms, call your physician or behavioral healthcare provider. If any time you have thoughts of harming yourself or others contact one of the following: Call 0-2-3 (available 07/12) Crisis Text Line (available 07/12) text 4HOPE to [phone] [facility] Hope Line (available 8 a.m. Midnight) call [phone] ([phone]) [facility] Work Phone: 1(436) 737-683908-25-2023 NoteChief Complaint consultation for change in bowel habits HPI Staff 67 year old female presents on consultation from Dr. Simpson for change in bowel habits. Reports she developed constipation in August. Started daily fiber and MiraLAX which resulted in smaller caliberof stool. States she is no longer taking MiraLAX but continues on Benefiber. States caliber of stool varies. Some days she feels caliber is normal . Reports constipation is chronic since childhood. Denies abdominal or rectal pain. No rectal bleeding. Denies nausea or vomiting. Reports small amountof weight loss recently which she contributes to [...] swallowing difficulties, no hearing loss, no ear infection(s),no nose bleeds. Cardiovascular: normal blood pressure, no [...] Tobacco Use:. Household tobacco (more content not included)...[facility] Comment on above:Result Comment: Electronically Signed By: AVNI ROGERS, Amor Rangel\Date and Time Signed: 01/08/23 15:31 [id number] NotePROCEDURE: XR ELBOW RT MIN 3 VIEWS HISTORY: Pain of right elbow joint since falling one year ago COMPARISON: None. FINDINGS: BONES:No fracture, acute abnormality, or significant arthropathy. SOFT TISSUES:No visible soft tissue swelling. EFFUSION:None visible. OTHER: Negative. IMPRESSION: 1. Normal examination. Electronically authenticated by: HERSON REBOLLEDO Date: 2022-03-12 18:14[facility] summary Author Lionel kingsley [facility] September 22, 2023 8:41pm Note Date/Time September 22, 2023 8:41pm [facility] [address] [place] [address] Discharge Summary Signed Patient: Donnie Bullock MR#: [id number] : 1955 Acct:[id number] Age/Sex: 67 / F Adm Date: 4 Loc: 1S Room: [address] [place] [address]: Sridhar Hoffman MD Copies to: MD Sridhar Rivers MD Marc Naderer, MD~ Providers Date of Admission: 09/15/23 Date of Discharge: 09/22/23 Discharging Provider: Lionel Still Primary Care Provider: Remigio Simpson Discharge Diagnosis (1) Major neurocognitive disorder: (2) Depression: (3) Anxiety: Final Diagnosis Final Discharge Diagnosis: Major neurocognitive disorder Major depressive disorder Anxiety Summary Hospital Course Hospital course: Ms. Bullock is a 67 year old female who presented due to concern for paranoid thoughts, suicidal thoughts and hallucinations. Upon assessment, patient reported that things were going okay but then she started to feel overwhelmed and anxious. She reported that she was doing laundry and felt super anxious and felt that even doing laundry was very overwhelming for her. According to the ER she also thought her laundry was coming alive and multiple things were coming at her. She stated that she told her to bring her to the hospital because she was getting very overwhelmed. When asked about suicidal thoughts she stated that she did not want to go to the pain of living the way she was living. It was documented thataiden told her to hide all the knives because she thought that she was going to hurt herself. She reported that she thought she saw an Moravian girl while here in the hospital. She reported that her appetite has been low. Past psych history: Depression, dementia, psychosis Past hospitalizations: 1 prior hospitalization for similar symptoms Past suicide attempts: Denies Family psych history: Denies Previous medications: Xanax Haldol, mirtazapine Alcohol and drug use: Denied any significant issues Living: With family Employment: Unemployed Patient had her Haldol switched to 0.5 mg in the morning and 1 mg at bedtime. She also did have her hydroxyzine decreased to 25 mg. She is to continue her mirtazapine 7.5 mg at bedtime. Patient was initially appearing to be sedated and confused, but after decreasing her Haldol and hydroxyzine her symptoms started to improve. Patient is currently tolerating medication well without anyissues. On the day of discharge patient reports that she is feeling better and denies any issues with sedation. She is able to formulate thoughts and did not show aggressive behavior. There is a long-term neurocognitive disorder manifested as short term memory deficits. Spoke with yesterday and he is on board to take her home today. Patient is excited to leave and go home andbe with friends and family. Condition Condition at Discharge: Stable Status at Discharge Functional status at discharge: independent ambulation Overall status at discharge: patient is back to baseline Time Spent with Patient Time spent providing/coordinating discharge services (# min): 30 Discharge Plan Discharge Plan Patient Disposition: Home Activity: No Activity Restriction Diet: Regular Additional Instructions: Important Contact Information You can call [facility] at [phone] any time day or night if you have emergent questions or question regarding discharge instructions. If at any time you are feeling an increase inyour psychiatric symptoms, call your physician or behavioral healthcare provider. If any time you have thoughts of harming yourself or others contact one of the following: Call (available 07/12) Crisis Text Line (available 07/12) text 4HOPE to [phone] [facility] Hope Line (available 8 a.m. Midnight) call [phone] ([phone]) Instructions: Dementia (DC), [facility] Behavioral Health [place] Instructions, Know your Meds Prescriptions: New haloperidol 0.5 mg Tablet 0.5 mg PO DAILY 15 Days Qty: 15 1RF haloperidol 1 mg Tablet 1 mg PO DAILY.WITH.SUPPER 30 Days Qty: 30 1RF Continued hydroxyzine HCl 25 mg tablet 25 mg PO BID Rx Instructions: 11am and 6pm melatonin 10 mg tablet extended release 10 mg PO QHS morphine concentrate 100 mg/5 mL (20 mg/mL) solution 5 mg PO Q1-2H PRN (Reason: pain) senna 8.6 mg capsule 17.2 mg PO BID haloperidol 1 mg tablet 0.5 mg PO Q4-5H PRN (Reason: anxiety) lactulose 10 gram/15 mL solution 30 ml PO BID mirtazapine 7.5 mg Tablet 7.5 mg PO QHS 30 Days Qty: 30 0RF Discontinued haloperidol 0.5 mg tablet 0.5 mg PO BID Rx Instructions: 8am and 5pm Follow Up: [facility] [Outside] - 09/29/23 12:30 pm (A director case management will call you on 09/23/23 between 8:00am and 12:00pm Financial intake/therapy assessment with Thais: Wednesday09/29/23 at 12:30pm, please bring ID, insurance card, and proof of income. Nurse intake: Wednesday10/01/23 at 10:00am with Maria A. Please see new medication client/new hospital discharge form for information to bring. ) Remigio Simpson MD [Primary Care Provider] - (Contact your PCP with medical needs. ) Exam Physical Exam Vital Signs: Temp Pulse Resp BP Pulse Ox O2 Del Method 98.0 F 77 18 104/69 96 Room Air 09/21/23 19:40 09/21/23 19:40 09/21/23 19:40 09/21/23 19:40 09/21/23 19:40 09/21/23 19:40 Documented By: Lionel Still MD 4 28 Signed By: <Electronically signed by Lionel Still MD> 09/22/232040 [facility] Work Phone: Evaluation + Plan note No data available for this section General Surgery [place] Evaluation noteNo assessment information available [facility] Work Phone: Evaluation note* Diagnosis Onset Date Resolution Status Anxiety acute Confusion acute Depression acute Major neurocognitive disorder acute Suicidal ideation acute [facility] Work Phone: Evaluation note* Diagnosis Recurrent UTI- Primary Urinary tract infection, site not specified DALILA (generalized anxiety disorder) (CMS/HCC) Generalized anxiety disorder Neck pain Cervicalgia MDD (major depressive disorder), recurrent episode, mild (HCC) (CMS/HCC) [facility] Diagnosis Dysuria- Primary [facility] Diagnosis Onset Date Resolution Status Anxiety acute Depression acute Major neurocognitive disorder acute Suicidal ideation acute [facility] Work Phone: History and physical note Author Sridhar Hoffman [facility] May 26, 2023 12:28pm Note Date/Time May 26, 2023 1 2:28pm [facility] [address] [place] [address] Psychiatry H&P Signed Patient: Donnie Bullock MR#: [id number] : 1955 Acct:[id number] Age/Sex: 67 / F Adm Date: 4 Loc: 1S Room: [address] [place] [address] Type: ADM IN Attending Dr: Sridhar Hoffman MD Copies to: SridharMD Remigio Samayoa MD~ Date of Service: 05/26/2023 HPI History [...] denied current suicidality Insight: fair Judgment: fair [facility] Medical History (Updated 05/26/23 @ 12:28 [...] signed by Sridhar Hoffman MD> 05/26/23 1228 [facility] Work Phone: Hospital Discharge instructions No data available for this section General Surgery Tasted Menu Progress note No data available for this section General Surgery [place] Reason for referral (narrative)* Consultation (Routine) - Pending Review Specialty Diagnoses / Procedures Referred By Linda t Referred To Contact Urology Diagnoses Recurrent UTI Procedures OR OFFICE/OUTPATIENT NEW HIGH MDM 60 MINUTES Remigio Simpson MD [address] [place] [address] Amor Arcos MD [address] [place] [address] Referral ID Status Reason Start Date Expiration Date Visits Requested Visits Authorized [id number] Pending Review Specialty Services Required 06/29/2023 12/26/2023 1 1 [facility] Summary Purpose Family History No Family History Records Found Relationship Condition Age at Onset Recorded Date/T dari Not Specified No pertinent family history Unknown Advance Directives No Advanced Directives Records Found Advance Directive Response Recorded Date/ Time Advance Directives No May 25, 2023 12:38pm Advance Directive Response Recorded Date/ Time Advance Directives No May 25, 2023 1:38pm Chief Complaint and Reason for Visit Chief Complaint mental eval Chief Complaint mental eval Reason for Visit Anxiety Confusion Depression Major neurocognitive disorder Suicidal ideation Chief Complaint Suicidal Ideation-De mentia Chief Complaint Suicidal Ideation-De mentia Suicidal Ideation-Dementia Reason for Visit Anxiety Depression Major neurocognitive disorder Suicidal ideation Additional Source Comments INFORMATION SOURCE (unrecogn ized section and content) DATE CREATED AUTHOR 09/17/2022 [facility] DATE CREATED AUTHOR AUTHOR'S ORGANIZ ATION 02/17/2023 [facility] DATE CREATED AUTHOR AUTHOR'S ORGANIZ ATION 05/26/2023 [facility] DATE CREATED AUTHOR AUTHOR'S ORGANIZ ATION 09/28/2023 [facility] DATE CREATED AUTHOR AUTHOR'S ORGANIZ ATION 09/28/2023 [facility] Patient Care team informatio n (unrecognized section and content) Team Status: Active Member Role Status Dates Remigio Simpson MD Primary Care Provider Active Team Status: Inactive Member Role Status Dates Remigio Simpson MD Primary Care Provider Active S tart: September 14, 2023 End: September 22, 2023 Good Garcia DO Emergency Provider Active St art: September 14, 2023 End: September 22, 2023 Sridhar Hoffman MD Admit Provider, Atte nding Provider Active Start: September 14, 2023 End: September 22, 2023 Team Status: Active Member Role Status Dates Remigio Simpson MD Primary Care Provider Active S tart: September 15, 2023 Good Garcia DO Emergency Provider Active St art: September 15, 2023 Sridhar Hoffman MD Admit Provider, Atte nding Provider, Other Provider Active Start: September 15, 2023 Team Status: Active Member Role Status Dates [...] Attending Provider Active Start: May 25, 2023 [employer] Relationship Specialty Start Date End Date Remigio Simpson MD PCP - General Family Medicine 05/17/22 [employer] Relationship Specialty Start Date End Date Remigio Simpson MD PCP - General Family Medicine 05/17/22 [employer] Relationship Specialty Start Date End Date Remigio Simpson MD PCP - General Family Medicine 05/17/22 Team Status: Active Member Role Status Dates Remigio Simpson MD Primary Care Provider Active S tart: September 14, 2023 Good Garcia DO Emergency Provider Active St art: September 14, 2023 Sridhar Hoffman MD Admit Provider, Attending Provider Active Start: September 14, 2023 Goals (unrecognized section and content) Goals [...] BE BASED ON THE PRIMARY CLINICAL RECORDS. [facility] [employer] provides no warranty or guarantee of the accuracy or completeness of information in this document.
== END 2023-09-28 15:55 | disposition home or self-care (01) ==
LOC: LAB 15:54
PROVIDERS: PCP Family Medicine; Visit Provider Family Medicine
DX: R30.0 Dysuria (principal)
CPT/HCPCS: 81003; 87086

== ENCOUNTER 2023-10-01 11:03 | Emergency (ER) | payer MEDICARE, OTHER, SELFPAY ==
[2023-10-01] VITALS (9 sets, daily range): BP systolic 135–143; BP diastolic 67–71; PULSE 69–83; TEMP 37.1; O2SAT 98; BMI 24.1
[2023-10-01] MEDS: 0.9 % SODIUM CHLORIDE 1,000 ML 1000 ML IV (11:26)
[2023-10-01] MEDS: ONDANSETRON PF 4 MG/2 ML VIAL IV ×2 (11:26→12:38)
[2023-10-01] MEDS: CAFFEINE CITRATE 300 MG in DEXTROSE 5 % IN WATER 250 ML 530 MG IV (11:54)
--- NOTE | 2023-10-01 11:55 | CT_ITS ---
The [address] [address] Patient Name: DONNIE BULLOCK MRN: [id number] date: 1955 Sex: F Assigned Patient Location: ER Current Patient Location: ER Accession/Order Number: [id number] Exam Date: 10/01/2023 12:10 Report Date: 10/01/2023 12:40 At the request of: MEENA LIGHT Procedure: CT head/brain wo con EXAM: CT head/brain wo con HISTORY: post spinal COMPARISON: CT head study dated 05/23/2023 TECHNIQUE: CT head study was performed without the use of intravenous contrast. Multiple axial images were obtained. Reformatted coronal and sagittal images were obtained and reviewed. FINDINGS: There is mild cerebral and cerebellar atrophy which appears similar to the prior study. No evidence of mass effect or midline shift. No acute intracranial hemorrhage is identified. No evidence of focal mass lesion is seen. Areas of mild decreased attenuation in the white matter compatible with chronic ischemic changes. No obvious acute vascular territory cortical infarction suggested. Basal ganglia calcifications noted bilaterally. Calvarium appears intact. Carotid artery calcifications noted bilaterally. Visualized mastoid air cells appear grossly unremarkable as do the intraorbital regions. Minimal mucosal thickening in the right sphenoid sinus posteriorly, similar to the prior study. CT/CT head/brain wo con IMPRESSION: CT head study demonstrates mild atrophy and mild white matter changes as described. No significant change since prior exam. No evidence of acute bleed or focal mass. No obvious acute vascular territory cortical infarction suggested. Electronically authenticated by: ANAT PADILLA Date: 10/01/2023 12:40
--- NOTE | 2023-10-01 11:56 | ED_ITS ---
HPI HPI - General Adult General Chief complaint: Nausea/Vomiting/Diarrhea Stated complaint: postoperative complications Time Seen by Provider: 10/01/23 11:55 Source: patient and family Mode of arrival: Wheelchair Limitations: altered mental status Limitations comment: Dementia History of Present Illness HPI narrative: Patient is a 67-year-old female who is presenting to the ER today with chief complaint of headache that started last evening. Patient started having nausea and vomiting this morning that started around 9:00 this morning. Patient had a spinal tap yesterday to rule out encephalitis or dementia. The spinal tap was done at [facility] by a neurologist. Patient had a mild headache last evening, patient's headache was worse this morning. Nausea and vomiting had ensued throughout the morning, and led to patient coming into the ER for evaluation. Patient told triage nurse that her headache was worse than it normally is. When I finally was able to evaluate the patient and perform HPI and physical exam, patient told me that her headache was 4/10. Patient had a spinal tap yesterday with no complications. Patient has no vision or hearing changes. No chest pain or shortness of breath. No abdominal pain. Positive nausea vomiting. No other acute complaints. Patient was in hospice, patient was taken off hospice for additional tests. and daughter at bedside. All systems are negative except as noted/marked. All systems reviewed and otherwise negative. Nurses note and vital signs reviewed and patient is not hypoxic. General: The patient appears well and in no apparent distress. Patient is resting comfortably on cart. Patient is not toxic, lethargic, or listless Skin: Warm, dry, no pallor noted. There is no rash noted. No petechiae, purpura. No signs of any infection, swelling, bleeding, hematoma to patient's spinal tap site from yesterday. Head: Normocephalic, atraumatic, patient has chronic tenderness to palpation to bilateral paracervical soft tissue, moderate. No acute new tenderness to paracervical soft tissue. No new nuchal rigidity, no new meningeal signs or symptoms. Patient has chronic stiff neck/neck pain. Nothing acute today, daughter and agree at bedside. Eye: Normal conjunctiva, no drainage, EOMI. PERRL Ears, Nose, Mouth, and Throat: oral mucosa is moist. Nares patent. Mouth without vesicles. Cardiovascular: Regular Rate and Rhythm, no murmur, gallop, rub Respiratory: Patient is in no distress, no accessory muscle use, lungs are clear to auscultation, no wheezing, rales or rhonchi Back: non-tender, no CVA tenderness bilaterally to percussion. No CT LS midline pain. Shows no hematoma, no redness, cellulitis, or any signs of epidural abscess or pain where spinal tap was done. Patient's lower back GI: Soft, no tenderness to palpation, no masses appreciated. No rebound, guarding, or rigidity noted. No distention Musculoskeletal: Patient has full range of motion of all of the extremities, no motor, sensory, or focal neurological deficits Neurological: A&O x3, normal speech, patient has history of chronic ongoing dementia with short-term memory loss. Psychiatric: Cooperative Related Data Home Medications ?Medication ?Instructions ?Recorded ?Confirmed hydroxyzine HCl 25 mg tablet 25 mg PO Q8H PRN anxiety 07/17/23 10/01/23 mirtazapine 7.5 mg tablet 7.5 mg PO .QHS 07/17/23 10/01/23 haloperidol 0.5 mg tablet 1 mg PO DAILY 10/01/23 10/01/23 melatonin 10 mg tablet,extended 10 mg PO BEDTIME 10/01/23 10/01/23 release Previous Rx's ?Medication ?Instructions ?Recorded meloxicam 7.5 mg tablet 7.5 mg PO DAILY PRN pain #10 tabs 05/16/23 diazepam 2 mg tablet (Valium) 2 mg PO TID-QID PRN muscle spasm 10/01/23 10 days #10 tabs ondansetron 4 mg disintegrating 4 mg PO Q4H PRN nausea and 10/01/23 tablet vomiting 3 days #6 tabs promethazine 25 mg rectal 25 mg SD Q6H PRN nausea and 10/01/23 suppository vomiting #6 ea Allergies Allergy/AdvReac Type Severity Reaction Status Date / Time No Known Drug Allergies Allergy Unverified 07/17/23 10:58 Opioid HPI Opioid Management Most Recent Opioid Data: 2 Ur Phencyclidine Scrn Negative (NEGATIVE) 05/23/23 15:35 PFSH PFSH Medical History (Updated 10/01/23 @ 14:23 by Derrick Garces MD) Normal colonoscopy PSVT (paroxysmal supraventricular tachycardia) ?I47.1 - Supraventricular tachycardia (ICD-10) Positive colorectal cancer screening using Cologuard test ?R19.5 - Other fecal abnormalities (ICD-10) Osteopenia ?M85.80 - Other specified disorders of bone density and structure, unspecified site (ICD-10) Orthostatic hypotension ?I95.1 - Orthostatic hypotension (ICD-10) GERD (gastroesophageal reflux disease) ?K21.9 - Gastro-esophageal reflux disease without esophagitis (ICD-10) Abdominal pain ?R10.9 - Unspecified abdominal pain (ICD-10) DALILA (generalized anxiety disorder) ?F41.1 - Generalized anxiety disorder (ICD-10) Dyslipidemia ?E78.5 - Hyperlipidemia, unspecified (ICD-10) Chronic constipation ?K59.09 - Other constipation (ICD-10) Change in bowel habits ?R19.4 - Change in bowel habit (ICD-10) Cervical disc disease ?M50.90 - Cervical disc disorder, unspecified, unspecified cervical region (ICD-10) Surgical History (Updated 01/14/23 @ 11:40 by Gabi Kim RN) H/O vaginal hysterectomy ?Z90.710 - Acquired absence of both cervix and uterus (ICD-10) H/O dilation and curettage ?Z98.890 - Other specified postprocedural states (ICD-10) Hx of tonsillectomy ?Z90.89 - Acquired absence of other organs (ICD-10) History of adenoidectomy ?Z90.89 - Acquired absence of other organs (ICD-10) History of carpal tunnel release ?Z98.890 - Other specified postprocedural states (ICD-10) Family History (Updated 01/14/23 @ 11:43 by Gabi Kim RN) Other Alcoholism Cardiac arrhythmia Heart disease Hypertension Multiple myeloma Pancreatic adenocarcinoma Pancreatic cancer Social History (Updated 01/14/23 @ 11:43 by Gabi Kim, JOSÉ ANTONIO) Within the past year, how often did you have a drink containing alcohol: never Score interpretation: A score less than 3 is consistent with normal alcohol consumption. Smoking status: Never smoker Second hand tobacco smoke exposure: No Non-prescribed substance use: denies use Previous occupational history: [employer] Known occupational exposures/hazards: No Highest level of school completed/degree received: high school graduate Exam Constitutional Vital Signs, click to edit/add: Last Vital Signs Temp 98.7 F 10/01/23 11:09 Pulse 72 10/01/23 14:30 Resp 7 L 10/01/23 14:30 BP 143/71 H 10/01/23 12:41 Pulse Ox 98 10/01/23 11:09 O2 Del Method Room Air 10/01/23 11:09 Course Vital Signs Vital signs: Vital Signs Temperature 98.7 F 10/01/23 11:09 Pulse Rate 83 10/01/23 11:09 Respiratory Rate 18 10/01/23 11:09 Blood Pressure 135/67 10/01/23 11:09 Pulse Oximetry 98 10/01/23 11:09 Oxygen Delivery Method Room Air 10/01/23 11:09 Temperature 98.7 F 10/01/23 11:09 Pulse Rate 72 10/01/23 14:30 Respiratory Rate 7 L 10/01/23 14:30 Blood Pressure 143/71 H 10/01/23 12:41 Pulse Oximetry 98 10/01/23 11:09 Oxygen Delivery Method Room Air 10/01/23 11:09 Medical Decision Making MDM Narrative Medical decision making narrative: Patient had a headache after a spinal tap yesterday. Patient had a CT of the brain that showed no acute findings. Patient had IV caffeine that was given along with Zofran. Patient was having nausea and vomiting after the initial dose of Zofran, then she was given a second dose of Zofran and Compazine. CT was negative, patient continued to have nausea and vomiting a few episodes that were small after the second dose of Zofran and Compazine were given. Patient then was given a dose of Valium 2 mg to help with nausea, vomiting, cervical pain. Patient had also been given Benadryl. After Valium, patient's nausea and vomiting has resolved, patient headache that was a 4/10 has completely resolved. Patient's cervical pain has improved as well. Patient has been here for almost 4 hours with multiple different levels of treatment to help with nausea, vomiting, headache. Patient is very thankful for help. Patient had a orange popsicle well without difficulty. Patient was given a copy of the CT report. Patient will continue to follow-up with her specialist. Patient was sent home with a prescription for Zofran ODT.c Phenergan suppositories, and Valium to use at home if she needs. Patient and very thankful for care, they have been very pleasant to take care of. Multiple bedside visits, multiple different regimens of treatment for nausea, vomiting and headache. Critical care time 31 minutes exclusive from separate billable procedures that were performed. The following was considered in the determination of critical care but not limited to the level of medical decision making, intensive cardiac and/or respiratory monitoring, frequent vital sign monitoring, evaluation of laboratory studies, evaluation of radiographic studies, oxygen monitoring, and constant monitoring and speaking to family at bedside. Lab Data Lab results reviewed: Yes I reviewed the patient's lab results Labs: Lab Results 10/01/23 Range/Units 11:19 WBC 6.4 (4.0-11.0) 10^3/uL RBC 4.27 (4.20-5.40) 10^6/uL Hgb 13.0 (12.0-16.0) g/dL Hct 38.3 (36.0-48.0) % MCV 89.7 (81.0-99.0) fL MCH 30.4 (26.7-34.0) pg MCHC 33.9 (29.9-35.2) g/dL RDW 12.0 (11.0-15.0) % Plt Count 263 (150-450) 10^3/uL MPV 9.9 (9.5-13.5) fL Neut % (Auto) 70.2 (43.0-75.0) % Lymph % (Auto) 23.3 (20.5-60.0) % [place] % (Auto) 4.7 (1.7-12.0) % Eos % (Auto) 0.5 L (0.9-7.0) % Baso % (Auto) 0.5 (0.2-2.0) % Neut # (Auto) 4.5 (1.4-6.5) 10^3/uL Lymph # (Auto) 1.5 (1.2-3.8) 10^3/uL [place] # (Auto) 0.3 (0.3-0.8) 10^3/uL Eos # (Auto) 0.0 (0.0-0.7) 10^3/uL Baso # (Auto) 0.0 (0.0-0.1) 10^3/uL Abs Immat Gran (auto) 0.05 H (0.00-0.03) 10^3/uL Imm/Tot Granulo (auto) 0.8 H (0.0-0.5) % Sodium 136 (136-145) mmol/L Potassium 4.1 (3.5-5.1) mmol/L Chloride 101 (98-107) mmol/L Carbon Dioxide 29.3 (21.0-32.0) mmol/L Anion Gap 9.8 BUN 15.0 (7.0-18.0) mg/dL Creatinine 0.63 (0.55-1.02) mg/dL Est GFR ( Amer) >60 (>=60) Est GFR (Non-Af Amer) >60 (>=60) BUN/Creatinine Ratio 23.8 Glucose 160 H (74-106) mg/dL Calcium 9.3 (8.5-10.1) mg/dL Total Bilirubin 0.4 (0.2-1.0) mg/dL AST 12 L (15-37) U/L ALT 22 (14-59) U/L Alkaline Phosphatase 51 (46-116) U/L Troponin I High Sens 4.4 (4.0-51.3) pg/mL Total Protein 7.0 (6.4-8.2) g/dL Albumin 3.7 (3.4-5.0) g/dL Globulin 3.3 g/dL Albumin/Globulin Ratio 1.1 Lipase 42.0 (16.0-77.0) U/L Imaging Data CT scan - pelvis: Radiologist's impression: ITS Impressions Head CT 10/01/23 11:55 IMPRESSION: CT head study demonstrates mild atrophy and mild white matter changes as described. No significant change since prior exam. No evidence of acute bleed or focal mass. No obvious acute vascular territory cortical infarction suggested. Electronically authenticated by: ANAT PADILLA Date: 10/01/2023 12:40 Chest X-Ray 10/01/23 13:11 IMPRESSION: No acute process seen in the chest. Electronically authenticated by: ANAT PADILLA Date: 10/01/2023 15:08 ECG Data Attestation: I personally reviewed and interpreted this ECG as follows: (EKG interpretation. Normal sinus rhythm at 73 beats a minute. Normal axis deviation. No acute ST elevation, no acute ectopy. QTc of 423.) Discharge Plan Discharge Stand Alone Forms: Portal Instructions Chief Complaint: Nausea/Vomiting/Diarrhea Clinical Impression: Headache, Postoperative spinal headache, Nausea and vomiting Patient Disposition: Home, Self-Care Time of Disposition Decision: 14:22 Condition: Fair Prescriptions / Home Meds: New promethazine 25 mg suppository 25 mg SD Q6H PRN (Reason: nausea and vomiting) Qty: 6 0RF ondansetron 4 mg tablet,disintegrating 4 mg PO Q4H PRN (Reason: nausea and vomiting) 3 Days Qty: 6 0RF diazepam [Valium] 2 mg tablet 2 mg PO TID-QID PRN (Reason: muscle spasm) 10 Days Qty: 10 0RF Rx Instructions: As needed for anxiety, insomnia, nausea and vomiting, muscle spasm No Action meloxicam 7.5 mg tablet 7.5 mg PO DAILY PRN (Reason: pain ) Qty: 10 0RF haloperidol 0.5 mg tablet 1 mg PO DAILY melatonin 10 mg tablet extended release 10 mg PO BEDTIME mirtazapine 7.5 mg tablet 7.5 mg PO .QHS hydroxyzine HCl 25 mg tablet 25 mg PO Q8H PRN (Reason: anxiety) Print Language: Qatari Instructions: Acute Nausea and Vomiting (ED), General Headache (ED), Lumbar Puncture (ED) Additional Instructions: Use Zofran ODT if needed for nausea and vomiting. Use Phenergan suppositories if needed for nausea and vomiting. Use Valium if needed for nausea and vomiting, anxiety, insomnia, or cervical neck pain. Referrals: Remigio Hoyos MD [Primary Care Provider] - 1 week Discharge Date/Time: 10/01/23 14:46
[2023-10-01] MEDS: PROCHLORPERAZINE 10 MG/2 ML VIAL IV (12:38)
[2023-10-01] MEDS: DIPHENHYDRAMINE HCL 50 MG/ML (1ML) VIAL 25 MG IV (12:39)
--- NOTE | 2023-10-01 13:11 | XR_ITS ---
The [address] [address] Patient Name: DONNIE BULLOCK MRN: [id number] date: 1955 Sex: F Assigned Patient Location: ER Current Patient Location: Accession/Order Number: [id number] Exam Date: 10/01/2023 13:50 Report Date: 10/01/2023 15:08 At the request of: MEENA LIGHT Procedure: XR chest 2V EXAM: XR chest 2V HISTORY: Nausea and vomiting COMPARISON: CT chest study dated 09/14/2023 TECHNIQUE: PA and lateral views of the chest were obtained. FINDINGS: Heart and mediastinal contours are unremarkable in appearance. No acute infiltrate or consolidations are seen. No obvious pneumothorax. Mild degenerative changes in the dorsal spine. XR/XR chest 2V IMPRESSION: No acute process seen in the chest. Electronically authenticated by: ANAT PADILLA Date: 10/01/2023 15:08
--- NOTE | 2023-10-01 13:11 | ECG_ITS ---
The [facility] Test Date: 2023-10-01 Pat Name: DONNIE BULLOCK Department: Room: - Gender: Female Community Engagement Specialist: : 1955 Requested By: MONI SIMPSON Order Number: [id number] Reading MD: NATHANIEL LÓPEZ Measurements Intervals [place] Rate: 73 P: 34 MT: 146 QRS: 41 QRSD: 80 T: 70 QT: 398 QTc: 423 Interpretive Statements 1100 Sinus rhythm 9110 normal ECG Compared to ECG 07/17/2023 11:02:51 No significant changes Electronically Signed On 10-01-2023 17:50:25 EDT by NATHANIEL LÓPEZ
[2023-10-01 13:24] LABS: Basophils Percent Auto 0.5 % (0.2-2.0); Eosinophils Percent Auto 0.5 % (0.9-7.0); Hematocrit 38.3 % (36.0-48.0); Immature Granulocytes Abs Auto 0.05 10^3/uL (0.00-0.03); Immature Granulocytes Pct Auto 0.8 % (0.0-0.5); Lymphocytes Absolute Auto 1.5 10^3/uL (1.2-3.8); Lymphocytes Percent Auto 23.3 % (20.5-60.0); Mean Corpuscular HGB Conc 33.9 g/dL (29.9-35.2); Mean Corpuscular Hemoglobin 30.4 pg (26.7-34.0); Mean Corpuscular Volume 89.7 fL (81.0-99.0); Mean Platelet Volume 9.9 fL (9.5-13.5); Monocytes Absolute Auto 0.3 10^3/uL (0.3-0.8); Monocytes Percent Auto 4.7 % (1.7-12.0); Neutrophils Absolute Auto 4.5 10^3/uL (1.4-6.5); Neutrophils Percent Auto 70.2 % (43.0-75.0); Platelet Count 263 10^3/uL (150-450); Red Blood Count 4.27 10^6/uL (4.20-5.40); White Blood Count 6.4 10^3/uL (4.0-11.0)
[2023-10-01] MEDS: 0.9 % SODIUM CHLORIDE 1,000 ML 125 ML IV (13:29)
[2023-10-01] MEDS: DIAZEPAM 10 MG/2 ML SYRINGE 2 MG IV (13:29)
[2023-10-01 13:33] LABS: Alanine Aminotransferase 22 U/L (14-59); Albumin Globulin Ratio 1.1; Albumin Level 3.7 g/dL (3.4-5.0); Alkaline Phosphatase 51 U/L (46-116); Anion Gap 9.8; Aspartate Amino Transferase 12 U/L (15-37); BUN Creatinine Ratio 23.8; Bilirubin Total 0.4 mg/dL (0.2-1.0); Calcium 9.3 mg/dL (8.5-10.1); Carbon Dioxide 29.3 mmol/L (21.0-32.0); Chloride 101 mmol/L (98-107); Estimated GFR (African America >60 (>=60); Estimated GFR (Non-African Ame >60 (>=60); Globulin 3.3 g/dL; Glucose 160 mg/dL (74-106); Potassium 4.1 mmol/L (3.5-5.1); Sodium 136 mmol/L (136-145)
[2023-10-01 13:36] LABS: Troponin I High Sensitivity 4.4 pg/mL (4.0-51.3)
== END 2023-10-01 14:46 | disposition home or self-care (01) ==
PROVIDERS: Emergency Provider Emergency Medicine; PCP Family Medicine
DX: G97.1 Other reaction to spinal and lumbar puncture (principal); Z79.899 Other long term (current) drug therapy; R11.2 Nausea with vomiting, unspecified; Z98.890 Other specified postprocedural states; Z90.89 Acquired absence of other organs; Z90.710 Acquired absence of both cervix and uterus; M85.80 Other specified disorders of bone density and structure, unspecified site; K21.9 Gastro-esophageal reflux disease without esophagitis; F41.1 Generalized anxiety disorder; E78.5 Hyperlipidemia, unspecified; K59.09 Other constipation; M50.90 Cervical disc disorder, unspecified, unspecified cervical region
CPT/HCPCS: 36415; 70450; 71046; 80053; 83690; 84484; 85025; 93005; 99285

== ENCOUNTER 2023-12-29 08:15 | Outpatient (OUT) | payer MEDICARE, OTHER, SELFPAY ==
--- NOTE | 2023-12-29 08:17 | MM_ITS ---
Patient Name: DONNIE BULLOCK MR#: [id number] : 1955 Exam Date: 12/29/2023 Ordering Doctor: DR Remigio Hoyos . RADIOLOGY REPORT PROCEDURE: MM TOMOSYNTHESIS SCREENING BI COMPARISON: MG MAMM SCREEN 3D ROSARIO CAD, 07/03/2021. INDICATIONS: Screening Calculator Name NCI Breast Cancer Risk Assessment Tool 5 Year Breast Cancer Risk 1.50% Lifetime Breast Cancer Risk 4.50% Personal Breast Cancer No Personal Ovarian Cancer No Treatments Excision of the site Family Cancers Mother with multiple myeloma cancer at age 78; Father with pancreatic cancer at age 61. LOCATION: [facility] BREAST COMPOSITION: There are scattered areas of fibroglandular density. FINDINGS: DIAGNOSTIC CATEGORY 2--BENIGN FINDING. NO CHANGE FROM COMPARISON. Scattered benign-appearing calcifications are present. RIGHT BREAST: No significant suspicious finding. LEFT BREAST: No significant suspicious finding. Asymmetric small, stable. RECOMMENDATIONS: ROUTINE MAMMOGRAM AND CLINICAL EVALUATION IN 12 MONTHS. PLEASE NOTE: A NORMAL MAMMOGRAM DOES NOT EXCLUDE THE POSSIBILITY OF BREAST CANCER. A CLINICALLY SUSPICIOUS PALPABLE LUMP SHOULD BE BIOPSIED. Dictated by: You Hope MD on 12/29/2023 at 10:41 Approved by: You Hope MD on 12/29/2023 at 10:44
--- OUTSIDE RECORDS SUMMARY | 2023-12-29 08:23 | XMS_ITS | CCD ---
Author Organization [facility] Care Team Providers Care Chart Snatcher Name Role Phone CALVIN, DR REMIGIO Richardson [...] Consulting Unavailable NADERER, REMIGIO Primary Care Physician AVNI, Amor Pollock Attending Unavailable NADERER, REMIGIO Referring Unavailable NILL, Amor Pollock Attending Unavailable NADERER, REMIGIO Referring Unavailable NILL, Amor Pollock Attending Unavailable Naderer Remigio ROGERS Primary Care Unavail vinay Gilbert MD, Anuj Orta Attending DO Robert Oliver Emergency Provider MD Remigio Simpson Primary Care Provider [phone] MD Sridhar Hoffman Admit Provider MD Sridhar Hoffman Attending Provider Remigio Simpson MD Primary Care Provider [phone] MD Remigio Simpson Primary Care Provider [phone] DO Good Garcia Emergency Provider [phone] MD Sridhar Hoffman Admit Provider [phone] MD Charlee Hoffmanmi Attending Provider [phone] Sridhar Hoffman Admitting Unavailable Lionel Still Attending Unavailab Remigio Douglas Primary Care Unavailable Rei Cobos Admitting Unavailab Rei Dumont Attending Unavailab Remigio Douglas Primary Care Unavailable Lionel Still Admitting Unavailab Lionel Saini Attending UnavailRemigio Guzman Primary Care Unavailable Remigio Simpson Primary Care Unavailable Sridhar Hoffman Admitting Unavailable Sridhar Hoffman Attending Unavailable REMIGIO SIMPSON Attending Unavailable SHAIKH SALCEDO Attending Unavailable HERSON SALAZAR Attending Unavailable REI COBOS Attending Unavailable REI COBOS Referring Unavailable MONICA SILVER Attending Unavailable REI COBOS Referring Unavailable REI COBOS Attending Unavailable HERSON SALAZAR Attending Unavailable REMIGIO SIMPSON Attending Unavailable Medications Current Medications Medication Drug Class(es) Dates Sig (Normalized) Sig (Original) haloperidol 0.5 mg oral tablet (6 sources) Typical Antipsychotic Start: 09-22-2023 take 0.5 mg by mouth once daily Haloperidol Active 0.5 MG PO Daily 15 September 22, 2023 12:00am Start: 09-22-2023 take 1 mg by mouth once daily Haloperidol Active 1 MG PO Daily with supper 30 September 22, 2023 12:00am Start: 09-14-2023 Haloperidol [...] Start: 05-25-2023 take 1 tablet by palmer four times daily as needed for anxiety [...] 12:00am Start: 09-14-2023 take 1 capsule by mo [facility] twice daily Sennosides (Senna) 8.6 mg capsule [...] Onset: 4 Other aftercare (1 source) Other assisted (current) drug therapy; Translations: [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 CURRENT DRUG THERAPY] Onset: 3 Episodic Other aftercare (3 sources) Patient encounter status; Translations: [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] Onset: 3 05-11-2023 Episodic [...] 25 or more but less than 30 08-25-2023 Episodic Other screening for suspected conditions (not [...] Test Name Value Interpretation Reference Range Facility Aerobic Cultureon 09-30-2023 Aerobic Culture Comment tube 2 aerobic and anaerobic Results called at 1134 on 10/03/23 ORGANISM: Staphylococcus epidermidis (O:STAEPI) Quantity of Growth Rare Growth Comment tube 2 aerobic and anaerobic Results called at 1134 on 10/03/23 Anaerobic Culture Results No Anaerobes Isolated 3 Days Comment tube 2 aerobic and anaerobic Results called at 1134 on 10/03/23 Gram Stain Result No Bacteria Seen No White Blood Cells Seen Aerobic JAMSHID Charge (PCMIC38) ---- SUSCEPTIBILITY --- ORGANISM: O:STAEPI ANTIBIOTIC INTERPRETATION JAMSHID Daptomycin S <0.5 Linezolid S <1 Oxacillin S <0.25 Penicillin S <0.03 Trimethoprim/Sulfamet hoxazole S <0.5 Vancomycin S 0.5 S = SUSCEPTIBLE I = INTERMEDIATE R = RESISTANT BLANK = DATA NOT AVAILABLE, OR DRUG NOT ADVISABLE OR TESTED R* = RESISTANCE DUE TO EXTENDED SPECTRUM BETA-LACTAMASES ESBL = EXTENDED SPECTRUM BETA-LACTAMASE TFG = THYMIDINE-DEPENDENT STRAIN LAINEY = BETA-LACTAMASE POSITIVE IB = INDUCIBLE BETA-LACTAMASE. APPEARS IN PLACE OF 'S' WITH SPECIES KNOWN TO POSSESS INDUCIBLE BETA-LACTAMASES. POTENTIALLY THEY MAY BECOME RESISTANT TO ALL B-LACTAM DRUGS. PERFORMED BY: [place] [address] PATHOLOGIST CUSTOM STUDIO COORDINATOR ELE SPRING M.D. Normal [facility] Comment on above: Performed By: #### C SFCCDIFF, CSF GLU, AERC, GS, CSF TP, CSF PCR PANEL #### [address] Autoimmune Encephalitis Prof on 09-30-2023 Autoimmune Encephalitis Prof Normal [facility] Comment on above: Result Comment: See report. Scanned copy available in EMR. PERFORMED BY: [place] [address] PATHOLOGIST CUSTOM STUDIO COORDINATOR ELE SPRING M.D. Performed By: #### C SFCCDIFF, CSF GLU, AERC, GS, CSF TP, CSF PCR PANEL #### [address] CSF Creutzfeldt-Loy Diseas josr 09-30-2023 Creutzfeldt-Loy Disease Normal Negative [facility] Comment on above: Order Comment: Comme nt tube 3 Result Comment: See report. Scanned copy available in EMR. Performed By: #### C SFCCDIFF, CSF GLU, AERC, GS, CSF TP, CSF PCR PANEL #### [address] CSF Specimen Status Normal . [facility] Comment on above: Order Comment: Comme nt tube 3 Result Comment: Jacques howard lab report sent via fax. Performed at: [facility] Disease Path Surv [address] [facility] [place][Note 2] Room [address] [place] [id number] [employer] Manager: Christy Fernandez PhD, Phone: [phone] PERFORMED BY: [place] [address] PATHOLOGIST CUSTOM STUDIO COORDINATOR ELE SPRING M.D. Performed By: #### C SFCCDIFF, CSF GLU, AERC, GS, CSF TP, CSF PCR PANEL #### [address] CSF PCR Panelon 09-30-2023 CSF PCR Panel Comment tube 2 aerobic and anaerobic Comment tube 2 Cytomegalovirus Not detected Cryptococcus neoformans or gattii 9002 Not detected Escherichia coli K1 Not detected Enterovirus Not detected Haemophilus influenzae (reported as H flu) Not detected Human herpesvirus 6 Not detected Herpes simplex virus 1 Not detected Herpes simplex virus 2 DNA [Presence] in Cerebral spinal fluid by YAYA with non-probe detection Not detected Listeria monocytogenes (reported as listeriosis) Not detected Neisseria meningitidis - reported as meningococcal disease Not detected Human parechovirus Not detected Streptococcus pneumoniae - reported at ISP Not detected Group B Strep (Streptococcus agalactiae) Not detected Varicella zoster virus Not detected PERFORMED BY: [place] [address] PATHOLOGIST CUSTOM STUDIO COORDINATOR ELE SPRING M.D. Normal [facility] Comment on above: Performed By: #### C SFCCDIFF, CSF GLU, AERC, GS, CSF TP, CSF PCR PANEL #### [address] Cell Count Differential,CSFo n 09-30-2023 Appearance, CSF Cloudy Critically abnormal Clear [facility] Comment on above: Order Comment: Comme nt tube 1 Performed By: #### C SFCCDIFF, CSF GLU, AERC, GS, CSF TP, CSF PCR PANEL #### [address] Color, CSF [place] Critically abnormal Colorless [facility] Comment on above: Order Comment: Comme nt tube 1 Performed By: #### C SFCCDIFF, CSF GLU, AERC, GS, CSF TP, CSF PCR PANEL #### [address] CSF Supernatant Color Colorless Normal Colorless [facility] Comment on above: Order Comment: Comme nt tube 1 Performed By: #### C SFCCDIFF, CSF GLU, AERC, GS, CSF TP, CSF PCR PANEL #### [address] CSF Volume, Total 11.7 mL Normal [facility] Comment on above: Order Comment: Comme nt tube 1 Performed By: #### C SFCCDIFF, CSF GLU, AERC, GS, CSF TP, CSF PCR PANEL #### [address] Lymphocytes, CSF 17 Normal [facility] Comment on above: Order Comment: Comme nt tube 1 Result Comment: The reference interval and other method performance specifications have not been established for this body fluid. The test result must be integrated into the clinical context for interpretation. Performed By: #### C SFCCDIFF, CSF GLU, AERC, GS, CSF TP, CSF PCR PANEL #### [address] Monocytes, CSF 4 Normal [facility] Comment on above: Order Comment: Comme nt tube 1 Result Comment: The reference interval and other method performance specifications have not been established for this body fluid. The test result must be integrated into the clinical context for interpretation. Performed By: #### C SFCCDIFF, CSF GLU, AERC, GS, CSF TP, CSF PCR PANEL #### [address] Neutrophils, CSF 29 Normal [facility] Comment on above: Order Comment: Comme nt tube 1 Result Comment: The reference interval and other method performance specifications have not been established for this body fluid. The test result must be integrated into the clinical context for interpretation. Performed By: #### C SFCCDIFF, CSF GLU, AERC, GS, CSF TP, CSF PCR PANEL #### [address] RBC, CSF 3534 Normal [facility] Comment on above: Order Comment: Comme nt tube 1 Result Comment: The reference interval and other method performance specifications have not been established for this body fluid. The test result must be integrated into the clinical context for interpretation. Performed By: #### C SFCCDIFF, CSF GLU, AERC, GS, CSF TP, CSF PCR PANEL #### [address] TNC, CSF 2 /uL Normal 0-5 [facility] Comment on above: Order Comment: Comme nt tube 1 Performed By: #### C SFCCDIFF, CSF GLU, AERC, GS, CSF TP, CSF PCR PANEL #### [address] Total Count, CSF 50 Normal [facility] Comment on above: Order Comment: Comme nt tube 1 Performed By: #### C SFCCDIFF, CSF GLU, AERC, GS, CSF TP, CSF PCR PANEL #### [address] Tube Number Tested, CSF Tube Number: 1 Normal [facility] Comment on above: Order Comment: Comme nt tube 1 Result Comment: PERF ORMED BY: [place] [address] PATHOLOGIST CUSTOM STUDIO COORDINATOR ELE SPRING M.D. Performed By: #### C SFCCDIFF, CSF GLU, AERC, GS, CSF TP, CSF PCR PANEL #### [facility] [address] [place] [address] Cell Count Differential,CSF #2on 09-30-2023 Appearance, CSF Clear Normal Clear [facility] Comment on above: Order Comment: Comme nt tube 4 Performed By: #### U HCG, URDS #### [address] Color, CSF Colorless Normal Colorless [facility] Comment on above: Order Comment: Comme nt tube 4 Performed By: #### U HCG, URDS #### [address] CSF Supernatant Color Colorless Normal Colorless [facility] Comment on above: Order Comment: Comme nt tube 4 Performed By: #### U HCG, URDS #### [address] CSF Volume, Total 11.7 mL Normal [facility] Comment on above: Order Comment: Comme nt tube 4 Performed By: #### U HCG, URDS #### [facility] [address] [place] [address] [place] Lymphocytes, CSF 2 Normal [facility] Comment on above: Order Comment: Comme nt tube 4 Result Comment: The reference interval and other method performance specifications have not been established for this body fluid. The test result must be integrated into the clinical context for interpretation. Performed By: #### U HCG, URDS #### [address] Monocytes, CSF 2 Normal [facility] Comment on above: Order Comment: Comme nt tube 4 Result Comment: The reference interval and other method performance specifications have not been established for this body fluid. The test result must be integrated into the clinical context for interpretation. Performed By: #### U HCG, URDS #### [facility] [address] [place] [address] Neutrophils, CSF 4 Normal [facility] Comment on above: Order Comment: Comme nt tube 4 Result Comment: The reference interval and other method performance specifications have not been established for this body fluid. The test result must be integrated into the clinical context for interpretation. Performed By: #### U HCG, URDS #### [address] RBC, CSF 130 /uL Normal [facility] Comment on above: Order Comment: Comme nt tube 4 Result Comment: The reference interval and other method performance specifications have not been established for this body fluid. The test result must be integrated into the clinical context for interpretation. Performed By: #### U HCG, URDS #### [address] TNC, CSF 1 /uL Normal 0-5 [facility] Comment on above: Order Comment: Comme nt tube 4 Performed By: #### U HCG, URDS #### [address] Total Count, CSF 8 Normal [facility] Comment on above: Order Comment: Comme nt tube 4 Performed By: #### U HCG, URDS #### [address] Tube Number Tested, CSF Tube Number: 4 Normal [facility] Comment on above: Order Comment: Comme nt tube 4 Result Comment: PERF ORMED BY: [place] [address] PATHOLOGIST CUSTOM STUDIO COORDINATOR ELE SPRING M.D. Performed By: #### U HCG, URDS #### [address] Glucose, Spinal Fluidon 05- Glucose, Spinal Fluid 63 mg/dL Normal 40-70 [facility] Comment on above: Order Comment: Comme nt tube 3 Performed By: #### C SFCCDIFF, CSF GLU, AERC, GS, CSF TP, CSF PCR PANEL #### [address] Gram Stainon 09-30-2023 Microscopic observation Gram stain Nom (Unsp spec) Comment tube 2 aerobic and anaerobic Gram Stain Result No Bacteria Seen No White Blood Cells Seen PERFORMED BY: [place] [address] PATHOLOGIST CUSTOM STUDIO COORDINATOR ELE SPRING M.D. Normal [facility] Comment on above: Performed By: #### C SFCCDIFF, CSF GLU, AERC, GS, CSF TP, CSF PCR PANEL #### [address] IR guided lumbar puncture LP on 09-30-2023 IR guided lumbar puncture LP [facility] [place] [address] [place] [address] Interventional Radiology Rpt Signed Patient: Donnie Bullock MR#: [id number] [birth year] : 1955 Acct:[id number] Age/Sex: 67 / F ADM Date: 09/30/23 Loc: XD Room: Type: [facility] Attending Dr: Rei Cobos DO Copies to: Rei Cobos DO Ordering Provider: Rei Cobos DO Date of Service: 09/30/23 IR/IR guided lumbar puncture LP: RAPIDLY PROGRESSIVE DEMENTIA IR guided lumbar puncture LP 09/30/2023 7:28 AM SIGNS AND SYMPTOMS: 0.52 [id number] RAPIDLY PROGRESSIVE DEMENTIA INFORMED CONSENT: Reason for procedure was discussed with the patient. The procedure expectations risks benefits options and alternatives were discussed. All the questions were answered. The patient understood the results cannot be guaranteed. The procedure is indicated and risks were acceptable. Consent was obtained. PROCEDURE: A fluoroscopic guided lumbar puncture was performed at the L5-S1 level on the right via a right sublaminar approach. The patient was prepped and draped in a sterile manner. 5 mL of lidocaine 1% without epinephrine were used for local anesthesia. A 20-gauge spinal needle was introduced into the subarachnoid space on the right at L5-S1 via a right sublaminar approach. 12 mL of clear CSF was removed in 4 tubes. The needle was removed and hemostasis was obtained using manual pressure. Cumulative Air Kerma in mGy: 0.52 mGy The patient tolerated the procedure well. No immediate complications were detected. IR/IR guided lumbar puncture LP IMPRESSION: Successful fluoroscopically guided lumbar puncture as above. Impression dictated by: Elvis Mae M.D.09/30/2023 1:23 PM Dictation Location: [place] [address] Transcribed By: LESVIA 09/30/231322 Dictated By: Elvis Mae II, MD 09/30/231320 Signed By: 09/30/231322 Normal [facility] Arjun 09-30-2023 L Specimen: [id number] Received: 09/30/23 Status: ZACK Reloly Num: [id number] Spec Type: Cytology Subm Dr: Rei Cobos DO Tissues: A CSF (CSF) Procedures: Cyto Prepstain, DIFF QWIK, PAPSTN Age/ Patient Sex Location Account Attending Physician Donnie Bullock 67/F XD [id number] Rei Cobos DO SPEC NUM: [id number] RECD: 09/30/23 STATUS: ZACK CHAVA NUM: [id number] JAY: 09/30/[address]: Rei Cobos DO ENTERED: 09/30/[address] [facility] [address]: SPEC TYPE: Cytology DEPT: CNG ENTERED BY: [id number] RECV BY: [id number] ORDERED: Cyto Prepstain, DIFF QWIK, PAPSTN ORDERED: Cyto Prepstain, DIFF QWIK, PAPSTN Pathological Diagnosis CSF, cytology: -No evidence of malignant cell or atypical cell -Red blood cells with occasional leukocytes, including few PMNs and lymphocytes and occasional monocytes Clinical Information Rapidly progressive dementia Gross Description Received fresh labeled with the patient's name, date of and CSF tube #1 per requisition is 2 ml very pale pink slightly hazy unfixed fluid. 2 smears total, 1 stained pap and 1 Diff quick cytospin slides are prepared. (CC/nh) CPT Codes 11475 -------- -------- Specimen: [id number] Received: 09/30/23-1322 Status: ZACK Sweeney Num: [id number] Spec Type: Cytology Subm Dr: Rei Cobos DO Tissues: A CSF (CSF) Procedures: Cyto Prepstain, DIFF QWIK, PAPSTN -------- Patient: Donnie Bullock [id number] (Continued) -------- Signed (signature on file) Bradly Marie MD 10/03/23 1426 Normal [facility] Total Protein, Spinal Fluido n 09-30-2023 Total Protein, Spinal Fluid 35 mg/dL Normal 15-45 [facility] Comment on above: Order Comment: Comme nt tube 3 Result Comment: PERF ORMED BY: [facility] [place] [address] PATHOLOGIST CUSTOM STUDIO COORDINATOR ELE SPRING M.D. Performed By: #### C SFCCDIFF, CSF GLU, AERC, GS, CSF TP, CSF PCR PANEL #### [facility] [address] [place] [address] [place] Cholesterol [Mass/volume] in Serum or PlasmaOrdered By: Sridhar Hoffman on 09-15-2023 Cholesterol [Mass/Vol] 205 mg/dL High 140-200 [facility] Comment on above: Chol less than 200 m g/dl low riskChol 201-239 mg/dl borderline riskChol 240 mg/dl and greater high risk Result Comment: Chol less than 200 mg/dl low risk Chol 201-239 mg/dl borderline risk Chol 240 mg/dl and greater high risk Performed By: #### U HCG, URDS #### [facility] [address] [place] [id number] [facility] Cholesterol in LDL Calc [Mas s/Vol]Ordered By: Sridhar Hoffman on 09-15-2023 Cholesterol in LDL [Mass/Vol] 122 mg/dL 0-100 [facility] Comment on above: LDL ATP III CLASSIFI CATIONLDL less than 100 mg/dL OptimalLDL 100-129 mg/dL Near or above optimalLDL 130-159 mg/dL Borderline highLDL 160-189 mg/dL HighLDL greater than 189 mg/dL Very high Cholesterol in VLDL Calc [Ma ss/Vol]Ordered By: Sridhar Hoffman on 09-15-2023 Cholesterol in VLDL [Mass/Vol] 20 mg/dL [facility] ECG 12 lead ECGon 09-15-2023 ECG 12 lead ECG [facility] [place] [address] [place] [id number] Electrocardiograph Report Signed Patient: Donnie Bullock MR#: [id number] [birth year] : 1955 Acct:[id number] Age/Sex: 67 / F ADM Date: 09/14/23 Loc: Room: [address] [place] [address] Type: ADM IN Attending Dr: Sridhar Hoffman [...] No significant change was found Confirmed by YOLA ROGERS [facility] [place] ([id number]) on 09/15/2023 3:08:00 PM Referred By: Electronically Signed By:DESTINEE YORK MD FAC Transcribed By: MUS Signed By Destinee York MD, FACC 09/15/23 1508 Normal [facility] Lipid Panelon 09-15-2023 LDL Cholesterol,Calculated 122 mg/dL High 0-100 [facility] Comment on above: Result Comment: LDL ATP III CLASSIFICATION LDL less than 100 mg/dL Optimal LDL 100-129 mg/dL Near or above optimal LDL 130-159 mg/dL Borderline high LDL 160-189 mg/dL High LDL greater than 189 mg/dL Very high Performed By: #### U HCG, URDS #### [facility] [address] Triglyceride w/Reflex 103 mg/dL Normal 0-149 [facility] Comment on above: Result Comment: TRIG ATP III CLASSIFICATION TRIG less than 150 mg/dL Normal TRIG 150-199 mg/dL Borderline high TRIG 200-500 mg/dL High TRIG greater than 500 mg/dL Very high Standard traceable to the Center for Disease Conrtrol and Prevention (CDC) test method. Performed By: #### U HCG, URDS #### [facility] [address] VLDL CHOLESTEROL 20 mg/dL Normal [facility] Comment on above: Performed By: #### U HCG, URDS #### [facility] [address] Serum or plasma high density lipoprotein (HDL) cholesterol measurementOrdered By: Sridhar Hoffman on 09-15-2023 Cholesterol in HDL [Mass/Vol] 62 mg/dL Normal 23-92 [facility] Comment on above: HDL CHOL ATP-III CLA SSIFICATION Cardiovascular RiskHDL > or equal to 60 mg/dL LOWHDL < 40 mg/dL HIGH Result Comment: HDL CHOL ATP-III CLASSIFICATION Cardiovascular Risk HDL > or equal to 60 mg/dL LOW HDL < 40 mg/dL HIGH Performed By: #### U HCG, URDS #### [facility] [address] Serum or plasma total choles terol/high density lipoprotein (HDL) cholesterol mass ratOrdered By: Sridhar Hoffman on 09-15-2023 Cholesterol.total/Mandie sterol in HDL [Mass ratio] 3.3 {ratio} Normal <5.0 [facility] Comment on above: Performed By: #### U HCG, URDS #### [facility] [address] Thyroid Stim Hormone w/Rflxo n 09-15-2023 Thyroid Stim Hormone w/Rflx 3.99 u[iU]/mL Normal 0.45-5.33 [facility] Comment on above: Performed By: #### U HCG, URDS #### [facility] [address] [place] [address] Thyrotropin [Units/volume] i n Serum or PlasmaOrdered By: Sridhar Hoffman on 09-15-2023 TSH Qn 3.99 m[IU]/L 0.45-5.33 [facility] Triglyceride [Mass/volume] i n Serum or PlasmaOrdered By: Sridhar Hoffman on 09-15-2023 Triglyceride [Mass/Vol] 103 mg/dL 0-149 F [facility] Comment on above: TRIG ATP III CLASSIF ICATIONTRIG less than 150 mg/dL NormalTRIG 150-199 mg/dL Borderline highTRIG 200-500 mg/dL High TRIG greater than 500 mg/dL Very highStandard traceable to the Center for Disease Conrtrol and Prevention (CDC) test method. Vitamin D 25 Hydroxy Totalon 09-15-2023 Vitamin D 25 Hydroxy Total 22.0 ng/mL Low 30-100 [facility] Comment on above: Result Comment: HUSAM MIN D STATUS 25(OH)VITAMIN D RANGE (ng/mL) Deficient <20 Insufficient 20 to <30 Sufficient 30 to 100 Reference: Shaq MF,Monica NC, Fabrizio , et al. Evaluation,treatment, and prevention of vitamin D deficiency; an Endocrine Society clinical practice guideline. JCEM. 2010; 96(7):191-. PERFORMED BY: [place] [address] PATHOLOGIST CUSTOM STUDIO COORDINATOR ELE SPRING M.D. Performed By: #### U HCG, URDS #### [address] Vitamin D+Metabolites [Mass/ volume] in Serum or PlasmaOrdered By: Sridhar Hoffman on 09-15-2023 Vitamin D+Metabolites [Mass/Vol] 22.0 ng/mL 30-100 [facility] Comment on above: VITAMIN D STATUS 25( [place])VITAMIN D RANGE (ng/mL) Deficient <20 Insufficient 20 to <30Sufficient 30 to 100Reference: Shaq MF,Monica PRESLEY, Fabrizio , et al. Evaluation,treatment, and prevention of vitamin D deficiency; an Endocrine Society clinical practice guideline. JCEM. 2010; 96(7):1911-. Alanine aminotransferase [En zymatic activity/volume] in Serum or PlasmaOrdered By: Good Garcia on 09-14-2023 ALT [Catalytic activity/Vol] 20 U/L Normal 7-52 [facility] Comment on above: Performed By: #### U HCG, URDS #### [facility] [address] [place] [address] Albumin [Mass/volume] in Ser um or Plasma by Bromocresol green (BCG) dye binding methoOrdered By: Good Garcia on 09-14-2023 Albumin BCG dye [Mass/Vol] 4.0 g/dL 3.5-5.7 [facility] Alkaline phosphatase [Enzyma tic activity/volume] in Serum or PlasmaOrdered By: Good Garcia on 09-14-2023 ALP [Catalytic activity/Vol] 43 U/L Normal 34-104 [facility] Comment on above: Performed By: #### U HCG, URDS #### [address] Amphetamine Screen Ql (U)Ord ered By: Good Garcia on 09-14-2023 Amphetamines Ql (U) Negative Negative [facility] Aspartate aminotransferase [ Enzymatic activity/volume] in Serum or PlasmaOrdered By: Good Garcia on 09-14-2023 AST [Catalytic activity/Vol] 18 U/L Normal 13-39 [facility] Comment on above: Performed By: #### U HCG, URDS #### [address] Automated basophil %Ordered By: Good Garcia on 09-14-2023 Basophils/100 WBC (Bld) 0.6 % Normal . [facility] Comment on above: Performed By: #### U HCG, URDS #### [address] Automated basophil countOrde red By: Good Garcia on 09-14-2023 Basophils (Bld) [#/Vol] 0.0 10*3/uL Normal 0.0-0.2 [facility] Comment on above: Result Comment: PERF ORMED BY: [place] [address] PATHOLOGIST CUSTOM STUDIO COORDINATOR ELE SPRING M.D. Performed By: #### U HCG, URDS #### [address] Automated blood monocyte cou ntOrdered By: Good Garcia on 09-14-2023 Monocytes (Bld) [#/Vol] 0.4 10*3/uL Normal 0.0-0.8 [facility] Comment on above: Performed By: #### U HCG, URDS #### [address] Automated eosinophil %Ordere d By: Good Garcia on 09-14-2023 Eosinophils/100 WBC (Bld) 1.0 % Normal . [facility] Comment on above: Performed By: #### U HCG, URDS #### [address] Automated eosinophil countOr dered By: Good Garcia on 09-14-2023 Eosinophils (Bld) [#/Vol] 0.1 10*3/uL Normal 0.0-0.45 [facility] Comment on above: Performed By: #### U HCG, URDS #### [facility] [address] Automated monocyte %Ordered By: Good Garcia on 09-14-2023 Monocytes/100 WBC (Bld) 7.5 % Normal . [facility] Comment on above: Performed By: #### U HCG, URDS #### [facility] [address] Automated neutrophil %Ordere d By: Good Garcia on 09-14-2023 Neutrophils/100 WBC (Bld) 59.4 % Normal . [facility] Comment on above: Performed By: #### U HCG, URDS #### [facility] [address] Automated urine color determ inationOrdered By: Good Garcia on 09-14-2023 Color (U) Yellow Normal Yellow [facility] Comment on above: Order Comment: Name Collection Type:: Clean-Voided Midstream Performed By: #### U HCG, URDS #### [facility] [address] [place] [address] Barbiturates [Presence] in U rine by Screen methodOrdered By: Good Garcia on 09-14-2023 Barbiturates Screen Ql (U) Negative Negative [facility] Benzodiazepines Screen Ql (U )Ordered By: Good Garcia on 09-14-2023 Benzodiazepines Ql (U) Negative Negative [facility] Benzoylecgonine [Presence] i n Urine by Screen methodOrdered By: Good Garcia on 09-14-2023 Benzoylecgonine Screen Ql (U) Negative Negative [facility] Bilirubin Test strip Ql (U)O rdered By: Good Garcia on 09-14-2023 Bilirubin Ql (U) Negative Negative [facility] Bilirubin.total [Mass/volume ] in Serum or PlasmaOrdered By: Good Garcia on 09-14-2023 Bilirubin [Mass/Vol] 0.4 mg/dL Normal 0.3-1.0 [facility] Comment on above: Performed By: #### U HCG, URDS #### [facility] [address] Calcium [Mass/volume] in Ser um or PlasmaOrdered By: Good Garcia on 09-14-2023 Calcium [Mass/Vol] 9.8 mg/dL Normal 8.6-10.3 [facility] Comment on above: Performed By: #### U HCG, URDS #### [facility] [address] Cannabinoids [Presence] in U rine by Screen methodOrdered By: Good Garcia on 09-14-2023 Cannabinoids Screen Ql (U) Negative Negative [facility] Comment on above: These are unconfirme d results and should not be used for legal purposes. Drug Cut-Off Concentration: AMPH 1000 ng/mL GABRIELA 200 ng/mL SIVA 200 ng/mL COCM 300 ng/mL OP 300 ng/mL PCP 25 ng/mL THC 20 ng/mL Carbon dioxide, total [Moles /volume] in Serum or PlasmaOrdered By: Good Garcia on 09-14-2023 CO2 [Moles/Vol] 31.2 mmol/L High 21.0-31.0 [facility] Comment on above: Performed By: #### U HCG, URDS #### [address] Chloride [Moles/volume] in S anupam or PlasmaOrdered By: Good Garcia on 09-14-2023 Chloride [Moles/Vol] 103 mmol/L Normal 98-107 [facility] Comment on above: Performed By: #### U HCG, URDS #### [facility] [address] Complete Blood Count Auto Di ffon 09-14-2023 Mean Corpuscular HGB Conc 34.0 g/dL Normal 32.0-35.0 [facility] Comment on above: Performed By: #### U HCG, URDS #### [address] Monocytes/100 WBC (Bld) 16.08 % Normal 0.00-20.00 T jennifer [facility] Comment on above: Performed By: #### U HCG, URDS #### [address] NRBC% 0.1 /100{WBC} Normal 0-0.5 [facility] Comment on above: Performed By: #### U HCG, URDS #### [address] Comprehensive Metabolic Pane arjun 09-14-2023 Albumin [Mass/Vol] 4.0 g/dL Normal 3.5-5.7 [facility] Comment on above: Performed By: #### U HCG, URDS #### [address] Creatinine Clr Calc Pharmacy 59.72 Normal [facility] Comment on above: Result Comment: PERF ORMED BY: [place] [address] PATHOLOGIST CUSTOM STUDIO COORDINATOR ELE SPRING M.D. Performed By: #### U HCG, URDS #### [place] [address] [place] GFR/1.73 sq M.predicted MDRD (S/P/Bld) [Vol rate/Area] mL/min/{1.73_m2} Normal [facility] Comment on above: Performed By: #### U HCG, URDS #### [place] [address] [place] Creatinine [Mass/volume] in Serum or PlasmaOrdered By: Good Garcia on 09-14-2023 Creatinine [Mass/Vol] 0.61 mg/dL Normal 0.60-1.20 [facility] Comment on above: Performed By: #### U HCG, URDS #### [place] [address] [place] Drug Screen,Urineon 09-14-19 24 Amphetamine Screen,Urine Negative Normal Negative [facility] Comment on above: Performed By: #### U HCG, URDS #### [address] Barbiturate Screen,Urine Negative Normal Negative [facility] Comment on above: Performed By: #### U HCG, URDS #### [address] Benzodiazepines Screen,Urine Negative Normal Negative [facility] Comment on above: Performed By: #### U HCG, URDS #### [address] Cannabinoid Screen,Urine Negative Normal Negative [facility] Comment on above: Result Comment: Thes e are unconfirmed results and should not be used for legal purposes. Drug Cut-Off Concentration: AMPH 1000 ng/mL GABRIELA 200 ng/mL SIVA 200 ng/mL COCM 300 ng/mL OP 300 ng/mL PCP 25 ng/mL THC 20 ng/mL PERFORMED BY: [place] [address] PATHOLOGIST CUSTOM STUDIO COORDINATOR ELE SPRING M.D. Performed By: #### U HCG, URDS #### [address] Cocaine Screen,Urine Negative Normal Negative [facility] Comment on above: Performed By: #### U HCG, URDS #### [address] Opiate Screen,Urine Positive High Negative [facility] Comment on above: Performed By: #### U HCG, URDS #### [address] Phencyclidine Screen,Urine Negative Normal Negative [facility] Comment on above: Performed By: #### U HCG, URDS #### [address] Erythrocyte distribution wid th [Ratio] by Automated countOrdered By: Good Garcia on 09-14-2023 Erythrocyte distribution width (RBC) [Ratio] 13.0 % Normal 11.9-15.3 [facility] Comment on above: Performed By: #### U HCG, URDS #### [address] Erythrocytes [#/volume] in B lood by Automated countOrdered By: Good Garcia on 09-14-2023 RBC (Bld) [#/Vol] 3.98 10*6/uL Normal 3.60-5.00 [facility] Comment on above: Performed By: #### U HCG, URDS #### [facility] [address] [place] [id number] [place] Ethanol [Mass/volume] in Ser um or PlasmaOrdered By: Good Radha on 09-14-2023 Ethanol [Mass/Vol] mg/dL Normal [facility] Comment on above: Performed By: #### U HCG, URDS #### [facility] [address] [place] [address] [place] Ethanol [Mass/Vol] TNP [facility] Comment on above: Test not performed Ethyl Alcohol Profileon 08-17 Percent Ethanol Not performed Normal [facility] Comment on above: Result Comment: PERF ORMED BY: [place] [address] PATHOLOGIST CUSTOM STUDIO COORDINATOR ELE SPRING M.D. Performed By: #### U HCG, URDS #### [facility] [address] [place] [address] [place] Glucose [Mass/volume] in Ser um or PlasmaOrdered By: Good Radha on 09-14-2023 Glucose [Mass/Vol] 105 mg/dL High 70-100 [facility] Comment on above: ADA recommended refe rence rangeRandom Glucose Reference Range is dependent on time and content of last meal. Glucose of more than 200 mg/dL in a nonstressed, ambulatory subject supports the diagnosis of Diabetes Mellitus. Result Comment: [place] om Glucose Reference Range is dependent on time and content of last meal. Glucose of more than 200 mg/dL in a nonstressed, ambulatory subject supports the diagnosis of Diabetes Mellitus. ADA recommended reference range Performed By: #### U HCG, URDS #### [facility] [address] [place] [id number] [place] Hematocrit [Volume Fraction] of Blood by Automated countOrdered By: Good Radha on 09-14-2023 Hematocrit (Bld) [Volume fraction] 35.7 % Normal 34.0-46.4 [facility] Comment on above: Performed By: #### U HCG, URDS #### [address] Hemoglobin [Mass/volume] in BloodOrdered By: Good Garcia on 09-14-2023 Hemoglobin (Bld) [Mass/Vol] 12.1 g/dL Normal 11.8-15.4 [facility] Comment on above: Performed By: #### U HCG, URDS #### [address] Ketones Auto test strip (U) [Mass/Vol]Ordered By: Good Garcia on 09-14-2023 Ketones (U) [Mass/Vol] Negative Negative [facility] Leukocytes [#/volume] correc gage for nucleated erythrocytes in Blood by Automated counOrdered By: Good Garcia on 09-14-2023 WBC corrected for nucl RBC Auto (Bld) [#/Vol] 5.3 10*3/uL 3.8-11.6 [facility] Leukocytes [#/volume] in Blo od by Automated countOrdered By: Good Garcia on 09-14-2023 WBC (Bld) [#/Vol] 5.3 10*3/uL Normal 3.8-11.6 [facility] Comment on above: Performed By: #### U HCG, URDS #### [facility] [address] [place] [address] Lymphocytes [#/volume] in Bl ood by Automated countOrdered By: Good Garcia on 09-14-2023 Lymphocytes (Bld) [#/Vol] 1.7 10*3/uL Normal 1.00-4.8 [facility] Comment on above: Performed By: #### U HCG, URDS #### [place] [address] [place] Lymphocytes/100 leukocytes i n Blood by Automated countOrdered By: Good Garcia on 09-14-2023 Lymphocytes/100 WBC (Bld) 31.5 % Normal . [facility] Comment on above: Performed By: #### U HCG, URDS #### [facility] [address] MCH [Entitic mass] by Automa gage countOrdered By: Good Garcia on 09-14-2023 MCH (RBC) [Entitic mass] 30.4 pg Normal 24.7-34.3 [facility] Comment on above: Performed By: #### U HCG, URDS #### [facility] [address] [place] [address] MCHC Auto (RBC) [Mass/Vol]Or dered By: Good Garcia on 09-14-2023 MCHC (RBC) [Mass/Vol] 34.0 g/dL 32.0-35.0 [facility] MCV [Entitic volume] by Auto mated countOrdered By: Good Garcia on 09-14-2023 MCV (RBC) [Entitic vol] 89.6 fL Normal 80-100 F [facility] Comment on above: Performed By: #### U HCG, URDS #### [facility] [address] [place] [address] Monocyte distribution width [Entitic volume] in Blood by AutomatedOrdered By: Good Garcia on 09-14-2023 Monocyte distribution width Auto (Bld) [Entitic vol] 16.08 % 0.00-20.00 [facility] Neutrophils [#/volume] in Bl ood by Automated countOrdered By: Good Garcia on 09-14-2023 Neutrophils (Bld) [#/Vol] 3.1 10*3/uL Normal 1.8-7.7 [facility] Comment on above: Performed By: #### U HCG, URDS #### [facility] [address] [place] [address] Nitrite Test strip Ql (U)Ord ered By: Good Garcia on 09-14-2023 Nitrite Ql (U) Negative Negative [facility] No Panel InformationOrdered By: Good Garcia on 09-14-2023 Estimated GFR (CKD-EPI) > 60.0 mL/Min [facility] Creatinine Clearance (Chem 59.72 [facility] Nucleated erythrocytes [Pres ence] in Blood by Automated countOrdered By: Good Garcia on 09-14-2023 Nucleated RBC Auto Ql (Bld) 0.1 /100{WBC} 0-0.5 [facility] Opiates [Presence] in Urine by Screen methodOrdered By: Good Garcia on 09-14-2023 Opiates Screen Ql (U) Positive Negative [facility] Phencyclidine Screen Ql (U)O rdered By: Good Garcia on 09-14-2023 Phencyclidine Ql (U) Negative Negative [facility] Platelet mean volume [Entiti c volume] in Blood by Automated countOrdered By: Good Garcia on 09-14-2023 Platelet mean volume (Bld) [Entitic vol] 7.3 fL Normal 6.3-10.7 [facility] Comment on above: Performed By: #### U HCG, URDS #### [facility] [address] [place] [address] Platelets [#/volume] in Bloo d by Automated countOrdered By: Good Garcia on 09-14-2023 Platelets (Bld) [#/Vol] 246 10*3/uL Normal 150-450 [facility] Comment on above: Performed By: #### U HCG, URDS #### [facility] [address] [place] [address] [place] Potassium [Moles/volume] in Serum or PlasmaOrdered By: Good Garcia on 09-14-2023 Potassium [Moles/Vol] 3.8 mmol/L Normal 3.5-5.1 [facility] Comment on above: Performed By: #### U HCG, URDS #### [facility] [address] [place] [address] [place] Protein Auto test strip (U) [Mass/Vol]Ordered By: Good Garcia on 09-14-2023 Protein (U) [Mass/Vol] Negative Negative [facility] Protein [Mass/volume] in Ser um or PlasmaOrdered By: Good Garcia on 09-14-2023 Protein [Mass/Vol] 6.2 g/dL Low 6.4-8.9 [facility] Comment on above: Performed By: #### U HCG, URDS #### [address] Serum globulin measurement b y calculation (mass/volume)Ordered By: Good Garcia on 09-14-2023 Globulin (S) [Mass/Vol] 2.2 g/dL Normal F [facility] Comment on above: Performed By: #### U HCG, URDS #### [address] Serum or plasma albumin/glob ulin mass ratioOrdered By: Good Garcia on 09-14-2023 Albumin/Globulin [Mass ratio] 1.8 {ratio} Normal [facility] Comment on above: Performed By: #### U HCG, URDS #### [address] Serum or plasma anion gap de terminationOrdered By: Good Garcia on 09-14-2023 Anion gap [Moles/Vol] 7.6 mmol/L Normal 6.0-15.0 [facility] Comment on above: Performed By: #### U HCG, URDS #### [address] Sodium [Moles/volume] in Ser um or PlasmaOrdered By: Good Garcia on 09-14-2023 Sodium [Moles/Vol] 138 mmol/L Normal 136-145 [facility] Comment on above: Performed By: #### U HCG, URDS #### [address] Specific gravity Auto test s trip (U) [Rel density]Ordered By: Good Garcia on 09-14-2023 Specific gravity (U) [Rel density] 1.004 1.001-1.030 [facility] Urea nitrogen [Mass/volume] in Serum or PlasmaOrdered By: Good Garcia on 09-14-2023 Urea nitrogen [Mass/Vol] 8 mg/dL Normal 7-25 [facility] Comment on above: Performed By: #### U HCG, URDS #### [address] Urinalysison 09-14-2023 Appearance (U) Clear Normal Clear [facility] Comment on above: Order Comment: Name Collection Type:: Clean-Voided Midstream Performed By: #### U HCG, URDS #### [address] Bilirubin,Urine Negative Normal Negative [facility] Comment on above: Order Comment: Name Collection Type:: Clean-Voided Midstream Performed By: #### U HCG, URDS #### [address] Glucose Ql (U) Normal Normal Normal [facility] Comment on above: Order Comment: Name Collection Type:: Clean-Voided Midstream Performed By: #### U HCG, URDS #### [address] Ketones Ql (U) Negative Normal Negative [facility] Comment on above: Order Comment: Name Collection Type:: Clean-Voided Midstream Performed By: #### U HCG, URDS #### [address] Leukocyte esterase Test strip Ql (U) Negative Normal Negative [facility] Comment on above: Order Comment: Name Collection Type:: Clean-Voided Midstream Performed By: #### U HCG, URDS #### [place] [address] [place] Nitrite,Urine Negative Normal Negative [facility] Comment on above: Order Comment: Name Collection Type:: Clean-Voided Midstream Performed By: #### U HCG, URDS #### [place] [address] [place] Occult Blood,Urine Negative Normal Negative [facility] Comment on above: Order Comment: Name Collection Type:: Clean-Voided Midstream Result Comment: PERF ORMED BY: [place] [address] PATHOLOGIST CUSTOM STUDIO COORDINATOR ELE SPRING M.D. Performed By: #### U HCG, URDS #### [place] [address] [place] Protein,Urine Negative Normal Negative [facility] Comment on above: Order Comment: Name Collection Type:: Clean-Voided Midstream Performed By: #### U HCG, URDS #### [facility] [address] Specificy [place],Urine 1.004 Normal 1.001-1.030 [facility] Comment on above: Order Comment: Name Collection Type:: Clean-Voided Midstream Performed By: #### U HCG, URDS #### [address] Urobilinogen,Urine Normal Normal Normal [facility] Comment on above: Order Comment: Name Collection Type:: Clean-Voided Midstream Performed By: #### U HCG, URDS #### [address] Urine clarity by refractomet ry automatedOrdered By: Good Garcia on 09-14-2023 Clarity Refractometry automated (U) Clear Clear [facility] Urine glucose measurement by automated test strip (mass/volume)Ordered By: Good Garcia on 09-14-2023 Glucose Auto test strip (U) [Mass/Vol] Normal mg/dL Normal [facility] Urine hemoglobin detection b y automated test stripOrdered By: Good Garcia on 09-14-2023 Hemoglobin Auto test strip Ql (U) Negative Negative [facility] Urine leukocyte esterase det ection by automated test stripOrdered By: Good Garcia on 09-14-2023 Leukocyte esterase Auto test strip Ql (U) Negative Negative [facility] Urine pH measurement by auto mated test stripOrdered By: Good Garcia on 09-14-2023 pH (U) 7.0 [pH] Normal 5.0-9.0 [facility] Comment on above: Order Comment: Name Collection Type:: Clean-Voided Midstream Performed By: #### U HCG, URDS #### [address] Urobilinogen Auto test strip (U) [Mass/Vol]Ordered By: Good Garcia on 09-14-2023 Urobilinogen (U) [Mass/Vol] Normal mg/dL Normal [facility] UA (CLEAN/CATCH) MICROSC OPIC IF INDICATEon [...] [facility] PROTEIN URINE Negative NEG/TRACE mg/dL [facility] SPECIFIC GRAVITY URINE 1.025 1.005 - 1.025 [facility] URINE MICROSCOPIC INDICATED YES [facility] UROBILINOGEN URINE 0.2 EU/dL 0.2 - 1.0 EU/dL [facility] A1C with Estimated Average G luon 06-04-2023 Glucose [Mass/Vol] 128 mg/dL Normal [facility] Comment on above: Result Comment: PERF ORMED BY: [place] [address] PATHOLOGIST CUSTOM STUDIO COORDINATOR ELE SPRING M.D. Performed By: #### U HCG, URDS #### [facility] [address] [place] [address] HbA1c (Bld) [Mass fraction] 6.1 % High 4.3-5.6 [facility] Comment on above: Result Comment: Incr eased risk for diabetes: 5.7 - 6.4 diabetes: >6.4 glycemic control for adults with diabetes: <7.0 Performed By: #### U HCG, URDS #### [facility] [address] Comprehensive Metabolic Pane arjun 06-04-2023 Albumin [Mass/Vol] 3.3 g/dL Low 3.5-5.7 [facility] Comment on above: Performed By: #### C MP, A1C WTH eA #### [facility] [address] [place] [id number] [facility] Albumin/Globulin [Mass ratio] 1.4 {ratio} Normal [facility] Comment on above: Performed By: #### C MP, A1C WTH eA #### [facility] [address] [place] [address] [place] ALP [Catalytic activity/Vol] 39 U/L Normal 34-104 [facility] Comment on above: Performed By: #### C MP, A1C WTH eA #### [facility] [address] [place] [address] [place] ALT [Catalytic activity/Vol] 12 U/L Normal 7-52 [facility] Comment on above: Performed By: #### C MP, A1C WTH eA #### [facility] [address] [place] [address] [place] Anion gap [Moles/Vol] 6.4 mmol/L Normal 6.0-15.0 [facility] Comment on above: Performed By: #### C MP, A1C WTH eA #### [place] [address] [place] AST [Catalytic activity/Vol] 20 U/L Normal 13-39 [facility] Comment on above: Performed By: #### C MP, A1C WTH eA #### [facility] [address] [place] [address] [place] Bilirubin [Mass/Vol] 0.4 mg/dL Normal 0.3-1.0 [facility] Comment on above: Performed By: #### C MP, A1C WTH eA #### [facility] [address] [place] [address] [place] Calcium [Mass/Vol] 9.3 mg/dL Normal 8.6-10.3 [facility] Comment on above: Performed By: #### C MP, A1C WTH eA #### [facility] [address] [place] [address] [place] Chloride [Moles/Vol] 108 mmol/L High 98-107 [facility] Comment on above: Performed By: #### C MP, A1C WTH eA #### [facility] [address] [place] [address] [place] CO2 [Moles/Vol] 30.7 mmol/L Normal 21.0-31.0 [facility] Comment on above: Performed By: #### C MP, A1C WTH eA #### [address] Creatinine [Mass/Vol] 0.71 mg/dL Normal 0.60-1.20 [facility] Comment on above: Performed By: #### C MP, A1C WTH eA #### [place] [address] [place] Creatinine Clr Calc Pharmacy 59.72 Normal [facility] Comment on above: Result Comment: PERF ORMED BY: [place] [address] PATHOLOGIST CUSTOM STUDIO COORDINATOR ELE SPRING M.D. Performed By: #### C MP, A1C WTH eA #### [place] [address] [place] GFR/1.73 sq M.predicted MDRD (S/P/Bld) [Vol rate/Area] mL/min/{1.73_m2} Normal [facility] Comment on above: Performed By: #### C MP, A1C WTH eA #### [place] [address] [place] Globulin (S) [Mass/Vol] 2.3 g/dL Normal T he [facility] Comment on above: Performed By: #### C MP, A1C WTH eA #### [address] Glucose [Mass/Vol] 101 mg/dL High 70-100 [facility] Comment on above: Result Comment: [place] Glucose Reference Range is dependent on time and content of last meal. Glucose of more than 200 mg/dL in a nonstressed, ambulatory subject supports the diagnosis of Diabetes Mellitus. ADA recommended reference range Performed By: #### C MP, A1C WTH eA #### [address] Potassium [Moles/Vol] 4.1 mmol/L Normal 3.5-5.1 [facility] Comment on above: Performed By: #### C MP, A1C WTH eA #### [address] Protein [Mass/Vol] 5.6 g/dL Low 6.4-8.9 [facility] Comment on above: Performed By: #### C MP, A1C WTH eA #### [address] Sodium [Moles/Vol] 141 mmol/L Normal 136-145 [facility] Comment on above: Performed By: #### C MP, A1C WT eA #### [address] Urea nitrogen [Mass/Vol] 22 mg/dL Normal 7-25 [facility] Comment on above: Performed By: #### C MP, A1C WT eA #### [address] Urine Cultureon 06-04-2023 Bacteria identified Cx Nom (U) <9,000 colonies/ml mixed bacterial skin contaminants 2 Days PERFORMED BY: [place] [address] PATHOLOGIST CUSTOM STUDIO COORDINATOR ELE SPRING M.D. Normal [facility] Comment on above: Performed By: #### C UU #### [address] A1C with Estimated Average G luon 06-01-2023 Glucose [Mass/Vol] 126 mg/dL Normal [facility] Comment on above: Result Comment: PERF ORMED BY: [place] [address] PATHOLOGIST CUSTOM STUDIO COORDINATOR ELE SPRING M.D. Performed By: #### C SFCCDIFF, CSF GLU, AERC, GS, CSF TP, CSF PCR PANEL #### [address] HbA1c (Bld) [Mass fraction] 6.0 % High 4.3-5.6 [facility] Comment on above: Result Comment: Incr eased risk for diabetes: 5.7 - 6.4 diabetes: >6.4 glycemic control for adults with diabetes: <7.0 Performed By: #### C SFCCDIFF, CSF GLU, AERC, GS, CSF TP, CSF PCR PANEL #### [address] Complete Blood Count Auto Di ffon 06-01-2023 Basophils (Bld) [#/Vol] 0.0 10*3/uL Normal 0.0-0.2 [facility] Comment on above: Result Comment: PERF ORMED BY: [place] [address] PATHOLOGIST CUSTOM STUDIO COORDINATOR ELE SPRING M.D. Performed By: #### C SFCCDIFF, CSF GLU, AERC, GS, CSF TP, CSF PCR PANEL #### [address] Basophils/100 WBC (Bld) 0.5 % Normal . T jennifer [facility] Comment on above: Performed By: #### C SFCCDIFF, CSF GLU, AERC, GS, CSF TP, CSF PCR PANEL #### [address] Eosinophils (Bld) [#/Vol] 0.1 10*3/uL Normal 0.0-0.45 [facility] Comment on above: Performed By: #### C SFCCDIFF, CSF GLU, AERC, GS, CSF TP, CSF PCR PANEL #### [address] Eosinophils/100 WBC (Bld) 1.5 % Normal . [facility] Comment on above: Performed By: #### C SFCCDIFF, CSF GLU, AERC, GS, CSF TP, CSF PCR PANEL #### [address] Erythrocyte distribution width (RBC) [Ratio] 12.9 % Normal 11.9-15.3 [facility] Comment on above: Performed By: #### C SFCCDIFF, CSF GLU, AERC, GS, CSF TP, CSF PCR PANEL #### [address] Hematocrit (Bld) [Volume fraction] 35.4 % Normal 34.0-46.4 [facility] Comment on above: Performed By: #### C SFCCDIFF, CSF GLU, AERC, GS, CSF TP, CSF PCR PANEL #### [address] Hemoglobin (Bld) [Mass/Vol] 11.9 g/dL Normal 11.8-15.4 [facility] Comment on above: Performed By: #### C SFCCDIFF, CSF GLU, AERC, GS, CSF TP, CSF PCR PANEL #### [address] Lymphocytes (Bld) [#/Vol] 1.6 10*3/uL Normal 1.00-4.8 [facility] Comment on above: Performed By: #### C SFCCDIFF, CSF GLU, AERC, GS, CSF TP, CSF PCR PANEL #### [address] Lymphocytes/100 WBC (Bld) 31.4 % Normal . [facility] Comment on above: Performed By: #### C SFCCDIFF, CSF GLU, AERC, GS, CSF TP, CSF PCR PANEL #### [address] MCH (RBC) [Entitic mass] 29.5 pg Normal 24.7-34.3 [facility] Comment on above: Performed By: #### C SFCCDIFF, CSF GLU, AERC, GS, CSF TP, CSF PCR PANEL #### [address] MCV (RBC) [Entitic vol] 88.1 fL Normal 80-100 T he [facility] Comment on above: Performed By: #### C SFCCDIFF, CSF GLU, AERC, GS, CSF TP, CSF PCR PANEL #### [address] Mean Corpuscular HGB Conc 33.5 g/dL Normal 32.0-35.0 [facility] Comment on above: Performed By: #### C SFCCDIFF, CSF GLU, AERC, GS, CSF TP, CSF PCR PANEL #### [address] Monocytes (Bld) [#/Vol] 0.4 10*3/uL Normal 0.0-0.8 [facility] Comment on above: Performed By: #### C SFCCDIFF, CSF GLU, AERC, GS, CSF TP, CSF PCR PANEL #### [address] Monocytes/100 WBC (Bld) 8.8 % Normal . T he [facility] Comment on above: Performed By: #### C SFCCDIFF, CSF GLU, AERC, GS, CSF TP, CSF PCR PANEL #### [address] Neutrophils (Bld) [#/Vol] 2.9 10*3/uL Normal 1.8-7.7 [facility] Comment on above: Performed By: #### C SFCCDIFF, CSF GLU, AERC, GS, CSF TP, CSF PCR PANEL #### [address] Neutrophils/100 WBC (Bld) 57.8 % Normal . [facility] Comment on above: Performed By: #### C SFCCDIFF, CSF GLU, AERC, GS, CSF TP, CSF PCR PANEL #### [address] NRBC% 0.1 /100{WBC} Normal 0-0.5 [facility] Comment on above: Performed By: #### C SFCCDIFF, CSF GLU, AERC, GS, CSF TP, CSF PCR PANEL #### [address] Platelet mean volume (Bld) [Entitic vol] 7.4 fL Normal 6.3-10.7 [facility] Comment on above: Performed By: #### C SFCCDIFF, CSF GLU, AERC, GS, CSF TP, CSF PCR PANEL #### [place] [address] [place] Platelets (Bld) [#/Vol] 220 10*3/uL Normal 150-450 [facility] Comment on above: Performed By: #### C SFCCDIFF, CSF GLU, AERC, GS, CSF TP, CSF PCR PANEL #### [address] RBC (Bld) [#/Vol] 4.02 10*6/uL Normal 3.60-5.00 [facility] Comment on above: Performed By: #### C SFCCDIFF, CSF GLU, AERC, GS, CSF TP, CSF PCR PANEL #### [address] WBC (Bld) [#/Vol] 5.1 10*3/uL Normal 3.8-11.6 [facility] Comment on above: Performed By: #### C SFCCDIFF, CSF GLU, AERC, GS, CSF TP, CSF PCR PANEL #### [address] Comprehensive Metabolic Pane arjun 06-01-2023 Albumin [Mass/Vol] 3.4 g/dL Low 3.5-5.7 [facility] Comment on above: Performed By: #### C SFCCDIFF, CSF GLU, AERC, GS, CSF TP, CSF PCR PANEL #### [address] Albumin/Globulin [Mass ratio] 1.5 {ratio} Normal [facility] Comment on above: Performed By: #### C SFCCDIFF, CSF GLU, AERC, GS, CSF TP, CSF PCR PANEL #### [address] ALP [Catalytic activity/Vol] 37 U/L Normal 34-104 [facility] Comment on above: Performed By: #### C SFCCDIFF, CSF GLU, AERC, GS, CSF TP, CSF PCR PANEL #### [address] ALT [Catalytic activity/Vol] 13 U/L Normal 7-52 [facility] Comment on above: Performed By: #### C SFCCDIFF, CSF GLU, AERC, GS, CSF TP, CSF PCR PANEL #### [address] Anion gap [Moles/Vol] 8.2 mmol/L Normal 6.0-15.0 [facility] Comment on above: Performed By: #### C SFCCDIFF, CSF GLU, AERC, GS, CSF TP, CSF PCR PANEL #### [address] AST [Catalytic activity/Vol] 15 U/L Normal 13-39 [facility] Comment on above: Performed By: #### C SFCCDIFF, CSF GLU, AERC, GS, CSF TP, CSF PCR PANEL #### [address] Bilirubin [Mass/Vol] 0.3 mg/dL Normal 0.3-1.0 [facility] Comment on above: Performed By: #### C SFCCDIFF, CSF GLU, AERC, GS, CSF TP, CSF PCR PANEL #### [address] Calcium [Mass/Vol] 9.1 mg/dL Normal 8.6-10.3 [facility] Comment on above: Performed By: #### C SFCCDIFF, CSF GLU, AERC, GS, CSF TP, CSF PCR PANEL #### [address] Chloride [Moles/Vol] 109 mmol/L High 98-107 [facility] Comment on above: Performed By: #### C SFCCDIFF, CSF GLU, AERC, GS, CSF TP, CSF PCR PANEL #### [address] CO2 [Moles/Vol] 27.8 mmol/L Normal 21.0-31.0 [facility] Comment on above: Performed By: #### C SFCCDIFF, CSF GLU, AERC, GS, CSF TP, CSF PCR PANEL #### [address] Creatinine [Mass/Vol] 0.58 mg/dL Low 0.60-1.20 [facility] Comment on above: Performed By: #### C SFCCDIFF, CSF GLU, AERC, GS, CSF TP, CSF PCR PANEL #### [address] Creatinine Clr Calc Pharmacy 59.72 Normal [facility] Comment on above: Result Comment: PERF ORMED BY: [place] [address] PATHOLOGIST CUSTOM STUDIO COORDINATOR ELE SPRING M.D. Performed By: #### C SFCCDIFF, CSF GLU, AERC, GS, CSF TP, CSF PCR PANEL #### [address] GFR/1.73 sq M.predicted MDRD (S/P/Bld) [Vol rate/Area] mL/min/{1.73_m2} Normal [facility] Comment on above: Performed By: #### C SFCCDIFF, CSF GLU, AERC, GS, CSF TP, CSF PCR PANEL #### [address] Globulin (S) [Mass/Vol] 2.2 g/dL Normal T he [facility] Comment on above: Performed By: #### C SFCCDIFF, CSF GLU, AERC, GS, CSF TP, CSF PCR PANEL #### [address] Glucose [Mass/Vol] 94 mg/dL Normal 70-100 [facility] Comment on above: Result Comment: [facility] Glucose Reference Range is dependent on time and content of last meal. Glucose of more than 200 mg/dL in a nonstressed, ambulatory subject supports the diagnosis of Diabetes Mellitus. ADA recommended reference range Performed By: #### C SFCCDIFF, CSF GLU, AERC, GS, CSF TP, CSF PCR PANEL #### [address] Potassium [Moles/Vol] 4.0 mmol/L Normal 3.5-5.1 [facility] Comment on above: Performed By: #### C SFCCDIFF, CSF GLU, AERC, GS, CSF TP, CSF PCR PANEL #### [address] Protein [Mass/Vol] 5.6 g/dL Low 6.4-8.9 [facility] Comment on above: Performed By: #### C SFCCDIFF, CSF GLU, AERC, GS, CSF TP, CSF PCR PANEL #### [address] Sodium [Moles/Vol] 141 mmol/L Normal 136-145 [facility] Comment on above: Performed By: #### C SFCCDIFF, CSF GLU, AERC, GS, CSF TP, CSF PCR PANEL #### [address] Urea nitrogen [Mass/Vol] 18 mg/dL Normal 7-25 [facility] Comment on above: Performed By: #### C SFCCDIFF, CSF GLU, AERC, GS, CSF TP, CSF PCR PANEL #### [address] Dipstick and Microscopicon 0 05-31-2023 Appearance (U) Slightly Cloudy Critically abnormal Clear [facility] Comment on above: Order Comment: Comme nt tube 3 Performed By: #### C SFCCDIFF, CSF GLU, AERC, GS, CSF TP, CSF PCR PANEL #### [address] Bacteria,Urine None Seen Normal None Seen [facility] Comment on above: Order Comment: Comme nt tube 3 Performed By: #### C SFCCDIFF, CSF GLU, AERC, GS, CSF TP, CSF PCR PANEL #### [address] Bilirubin,Urine Negative Normal Negative [facility] Comment on above: Order Comment: Comme nt tube 3 Performed By: #### C SFCCDIFF, CSF GLU, AERC, GS, CSF TP, CSF PCR PANEL #### [address] Color (U) Yellow Normal Yellow [facility] Comment on above: Order Comment: Comme nt tube 3 Performed By: #### C SFCCDIFF, CSF GLU, AERC, GS, CSF TP, CSF PCR PANEL #### [address] Glucose Ql (U) Normal Normal Normal [facility] Comment on above: Order Comment: Comme nt tube 3 Performed By: #### C SFCCDIFF, CSF GLU, AERC, GS, CSF TP, CSF PCR PANEL #### [address] Hyaline Casts,Urine 9-19 High 0-8 [facility] Comment on above: Order Comment: Comme nt tube 3 Result Comment: PERF ORMED BY: [place] [address] PATHOLOGIST CUSTOM STUDIO COORDINATOR ELE SPRING M.D. Performed By: #### C SFCCDIFF, CSF GLU, AERC, GS, CSF TP, CSF PCR PANEL #### [address] Ketones Ql (U) Negative Normal Negative [facility] Comment on above: Order Comment: Comme nt tube 3 Performed By: #### C SFCCDIFF, CSF GLU, AERC, GS, CSF TP, CSF PCR PANEL #### [address] Leukocyte esterase Test strip Ql (U) 2+ High Negative [facility] Comment on above: Order Comment: Comme nt tube 3 Performed By: #### C SFCCDIFF, CSF GLU, AERC, GS, CSF TP, CSF PCR PANEL #### [place] [address] [place] Nitrite,Urine Negative Normal Negative [facility] Comment on above: Order Comment: Comme nt tube 3 Performed By: #### C SFCCDIFF, CSF GLU, AERC, GS, CSF TP, CSF PCR PANEL #### [address] Occult Blood,Urine Negative Normal Negative [facility] Comment on above: Order Comment: Comme nt tube 3 Result Comment: PERF ORMED BY: [place] [address] PATHOLOGIST CUSTOM STUDIO COORDINATOR ELE SPRING M.D. Performed By: #### C SFCCDIFF, CSF GLU, AERC, GS, CSF TP, CSF PCR PANEL #### [address] Othe Crystals,Urine None Seen Normal [facility] Comment on above: Order Comment: Comme nt tube 3 Performed By: #### C SFCCDIFF, CSF GLU, AERC, GS, CSF TP, CSF PCR PANEL #### [address] pH (U) 6.0 [pH] Normal 5.0-9.0 [facility] Comment on above: Order Comment: Comme nt tube 3 Performed By: #### C SFCCDIFF, CSF GLU, AERC, GS, CSF TP, CSF PCR PANEL #### [address] Protein,Urine Negative Normal Negative [facility] Comment on above: Order Comment: Comme nt tube 3 Performed By: #### C SFCCDIFF, CSF GLU, AERC, GS, CSF TP, CSF PCR PANEL #### [address] RBC,Urine 5-9 High 0-4 [facility] Comment on above: Order Comment: Comme nt tube 3 Performed By: #### C SFCCDIFF, CSF GLU, AERC, GS, CSF TP, CSF PCR PANEL #### [address] Specificy [place],Urine 1.030 Normal 1.001-1.030 [facility] Comment on above: Order Comment: Comme nt tube 3 Performed By: #### C SFCCDIFF, CSF GLU, AERC, GS, CSF TP, CSF PCR PANEL #### [address] Squamous Epithelial Cell,Urine 1-2 Normal 0-2 [facility] Comment on above: Order Comment: Comme nt tube 3 Performed By: #### C SFCCDIFF, CSF GLU, AERC, GS, CSF TP, CSF PCR PANEL #### [address] Uric Acid Crystals,Urine 1+ Normal [facility] Comment on above: Order Comment: Comme nt tube 3 Performed By: #### C SFCCDIFF, CSF GLU, AERC, GS, CSF TP, CSF PCR PANEL #### [address] Urobilinogen,Urine Normal Normal Normal [facility] Comment on above: Order Comment: Comme nt tube 3 Performed By: #### C SFCCDIFF, CSF GLU, AERC, GS, CSF TP, CSF PCR PANEL #### [address] WBC,Urine 5-9 High 0-4 [facility] Comment on above: Order Comment: Comme nt tube 3 Performed By: #### C SFCCDIFF, CSF GLU, AERC, GS, CSF TP, CSF PCR PANEL #### [address] MR head/brain wo conon 05-31 MR head/brain wo con [facility] [place] [address] MRI Report Signed Patient: Donnie Bullock MR#: [id number] 21 : 1955 Acct:[id number] Age/Sex: 67 / F ADM Date: 05/25/23 Loc: Room: [address] [place] [address] Type: ADM IN Attending Dr: Sridhar Hoffman [...] Coates Jr., D.O.05/31/2023 1:55 PM Dictation Location: [place] [address] Transcribed By: [facility] 05/31/23 1355 Dictated By: Raymundo Coates Jr, DO 05/31/23 1348 Signed By: 05/31/23 1355 Normal [facility] Urine Cultureon 05-31-2023 Bacteria identified Cx Nom (U) 15,000 colonies/ml mixed bacterial skin contaminants 2 Days PERFORMED [place] [address] PATHOLOGIST CUSTOM STUDIO COORDINATOR ELE SPRING M.D. Normal [facility] Comment on above: Performed By: #### C SFCCDIFF, CSF GLU, AERC, GS, CSF TP, CSF PCR PANEL #### [place] [id number] [facility] Ammoniaon 05-29-2023 Ammonia (P) [Moles/Vol] 21 umol/L Normal 11-35 T [facility] Comment on above: Result Comment: PERF ORMED BY: [place] [id number] PATHOLOGIST CUSTOM STUDIO COORDINATOR ELE SPRING M.D. Performed By: #### C SFCCDIFF, CSF GLU, AERC, GS, CSF TP, CSF PCR PANEL #### [place] [id number] [facility] Vitamin B12on 05-29-2023 Cobalamin (Vitamin B12) [Mass/Vol] 380 pg/mL Normal 180-914 [facility] Comment on above: Result Comment: PERF ORMED BY: [place] [id number] PATHOLOGIST CUSTOM STUDIO COORDINATOR ELE SPRING M.D. Performed By: #### C SFCCDIFF, CSF GLU, AERC, GS, CSF TP, CSF PCR PANEL #### [facility] [address] Lipid Panelon 05-26-2023 Cholesterol [Mass/Vol] 177 mg/dL Normal 140-200 Th e [facility] Comment on above: Result Comment: Chol less than 200 mg/dl low risk Chol 201-239 mg/dl borderline risk Chol 240 mg/dl and greater high risk Performed By: #### C SFCCDIFF, CSF GLU, AERC, GS, CSF TP, CSF PCR PANEL #### [facility] [address] Cholesterol in HDL [Mass/Vol] 62 mg/dL Normal 23-92 [facility] Comment on above: Result Comment: HDL CHOL ATP-III CLASSIFICATION Cardiovascular Risk HDL > or equal to 60 mg/dL LOW HDL < 40 mg/dL HIGH Performed By: #### C SFCCDIFF, CSF GLU, AERC, GS, CSF TP, CSF PCR PANEL #### [facility] [address] Cholesterol.total/Mandie sterol in HDL [Mass ratio] 2.9 {ratio} Normal <5.0 [facility] Comment on above: Performed By: #### C SFCCDIFF, CSF GLU, AERC, GS, CSF TP, CSF PCR PANEL #### [facility] [address] LDL Cholesterol,Calculated 95 mg/dL Normal 0-100 [facility] Comment on above: Result Comment: LDL ATP III CLASSIFICATION LDL less than 100 mg/dL Optimal LDL 100-129 mg/dL Near or above optimal LDL 130-159 mg/dL Borderline high LDL 160-189 mg/dL High LDL greater than 189 mg/dL Very high Performed By: #### C SFCCDIFF, CSF GLU, AERC, GS, CSF TP, CSF PCR PANEL #### [facility] [address] [place] [id number] [facility] Triglyceride w/Reflex 100 mg/dL Normal 0-149 [facility] Comment on above: Result Comment: TRIG ATP III CLASSIFICATION TRIG less than 150 mg/dL Normal TRIG 150-199 mg/dL Borderline high TRIG 200-500 mg/dL High TRIG greater than 500 mg/dL Very high Standard traceable to the Center for Disease Conrtrol and Prevention (CDC) test method. Performed By: #### C SFCCDIFF, CSF GLU, AERC, GS, CSF TP, CSF PCR PANEL #### [address] VLDL CHOLESTEROL 20 mg/dL Normal [facility] Comment on above: Performed By: #### C SFCCDIFF, CSF GLU, AERC, GS, CSF TP, CSF PCR PANEL #### [address] Thyroid Stim Hormone w/Rflxo n 05-26-2023 Thyroid Stim Hormone w/Rflx 2.11 u[iU]/mL Normal 0.45-5.33 [facility] Comment on above: Performed By: #### C SFCCDIFF, CSF GLU, AERC, GS, CSF TP, CSF PCR PANEL #### [address] Vitamin D 25 Hydroxy Totalon 05-26-2023 Vitamin D 25 Hydroxy Total 25.4 ng/mL Low 30-100 [facility] Comment on above: Result Comment: HUSAM MIN D STATUS 25(OH)VITAMIN D RANGE (ng/mL) Deficient <20 Insufficient 20 to <30 Sufficient 30 to 100 Reference: Shaq MF,Monica NC, Fabrizio , et al. Evaluation,treatment, and prevention of vitamin D deficiency; an Endocrine Society clinical practice guideline. JCEM. 2010; 96(7):1911-30. PERFORMED BY: [place] [address] PATHOLOGIST CUSTOM STUDIO COORDINATOR ELE SPRING M.D. Performed By: #### C SFCCDIFF, CSF GLU, AERC, GS, CSF TP, CSF PCR PANEL #### [address] Alanine aminotransferase [En zymatic activity/volume] in Serum or PlasmaOrdered By: Robert Caruso on 05-25-2023 ALT [Catalytic activity/Vol] 14 U/L Normal 7-52 [facility] Comment on above: Performed By: #### C SFCCDIFF, CSF GLU, AERC, GS, CSF TP, CSF PCR PANEL #### [facility] [address] [place] [address] Albumin [Mass/volume] in Ser um or Plasma by Bromocresol green (BCG) dye binding methoOrdered By: Robert Caruso on 05-25-2023 Albumin BCG dye [Mass/Vol] 4.4 g/dL 3.5-5.7 [facility] Alkaline phosphatase [Enzyma tic activity/volume] in Serum or PlasmaOrdered By: Robert Caruso on 05-25-2023 ALP [Catalytic activity/Vol] 48 U/L Normal 34-104 [facility] Comment on above: Performed By: #### C SFCCDIFF, CSF GLU, AERC, GS, CSF TP, CSF PCR PANEL #### [address] Amphetamine Screen Ql (U)Ord ered By: Robert Caruso on 05-25-2023 Amphetamines Ql (U) Negative Negative [facility] Aspartate aminotransferase [ Enzymatic activity/volume] in Serum or PlasmaOrdered By: Robert Caruso on 05-25-2023 AST [Catalytic activity/Vol] 21 U/L Normal 13-39 [facility] Comment on above: Performed By: #### C SFCCDIFF, CSF GLU, AERC, GS, CSF TP, CSF PCR PANEL #### [address] Automated basophil %Ordered By: Robert Caruso on 05-25-2023 Basophils/100 WBC (Bld) 0.5 % Normal . F [facility] Comment on above: Performed By: #### C SFCCDIFF, CSF GLU, AERC, GS, CSF TP, CSF PCR PANEL #### [address] Automated basophil countOrde red By: Robert Caruso on 05-25-2023 Basophils (Bld) [#/Vol] 0.0 10*3/uL Normal 0.0-0.2 [facility] Comment on above: Result Comment: PERF ORMED BY: [place] [address] PATHOLOGIST CUSTOM STUDIO COORDINATOR ELE SPRING M.D. Performed By: #### C SFCCDIFF, CSF GLU, AERC, GS, CSF TP, CSF PCR PANEL #### [address] Automated blood monocyte cou ntOrdered By: Robert Caruso on 05-25-2023 Monocytes (Bld) [#/Vol] 0.3 10*3/uL Normal 0.0-0.8 [facility] Comment on above: Performed By: #### C SFCCDIFF, CSF GLU, AERC, GS, CSF TP, CSF PCR PANEL #### [address] Automated eosinophil %Ordere d By: Robert Caruso on 05-25-2023 Eosinophils/100 WBC (Bld) 0.1 % Normal . [facility] Comment on above: Performed By: #### C SFCCDIFF, CSF GLU, AERC, GS, CSF TP, CSF PCR PANEL #### [address] Automated eosinophil countOr dered By: Robert Caruso on 05-25-2023 Eosinophils (Bld) [#/Vol] 0.0 10*3/uL Normal 0.0-0.45 [facility] Comment on above: Performed By: #### C SFCCDIFF, CSF GLU, AERC, GS, CSF TP, CSF PCR PANEL #### [address] Automated monocyte %Ordered By: Robert Caruso on 05-25-2023 Monocytes/100 WBC (Bld) 3.9 % Normal . [facility] Comment on above: Performed By: #### C SFCCDIFF, CSF GLU, AERC, GS, CSF TP, CSF PCR PANEL #### [address] Automated neutrophil %Ordere d By: Robert Caruso on 05-25-2023 Neutrophils/100 WBC (Bld) 80.0 % Normal . [facility] Comment on above: Performed By: #### C SFCCDIFF, CSF GLU, AERC, GS, CSF TP, CSF PCR PANEL #### [facility] [address] [place] [address] [place] Barbiturates [Presence] in U rine by Screen methodOrdered By: Robert Caruso on 05-25-2023 Barbiturates Screen Ql (U) Negative Negative [facility] Benzodiazepines Screen Ql (U )Ordered By: Robert Caruso on 05-25-2023 Benzodiazepines Ql (U) Negative Negative [facility] Benzoylecgonine [Presence] i n Urine by Screen methodOrdered By: Robert Caruso on 05-25-2023 Benzoylecgonine Screen Ql (U) Negative Negative [facility] Bilirubin.total [Mass/volume ] in Serum or PlasmaOrdered By: Robert Caruso on 05-25-2023 Bilirubin [Mass/Vol] 0.8 mg/dL Normal 0.3-1.0 [facility] Comment on above: Performed By: #### C SFCCDIFF, CSF GLU, AERC, GS, CSF TP, CSF PCR PANEL #### [facility] [address] [place] [address] [place] Calcium [Mass/volume] in Ser um or PlasmaOrdered By: Robert Caruso on 05-25-2023 Calcium [Mass/Vol] 10.1 mg/dL Normal 8.6-10.3 [facility] Comment on above: Performed By: #### C SFCCDIFF, CSF GLU, AERC, GS, CSF TP, CSF PCR PANEL #### [facility] [address] [place] [address] [place] Cannabinoids [Presence] in U rine by Screen methodOrdered By: Robert Caruso on 05-25-2023 Cannabinoids Screen Ql (U) Negative Negative [facility] Comment on above: These are unconfirme d results and should not be used for legal purposes. Drug Cut-Off Concentration: AMPH 1000 ng/mL GABRIELA 200 ng/mL SIVA 200 ng/mL COCM 300 ng/mL OP 300 ng/mL PCP 25 ng/mL THC 20 ng/mL Carbon dioxide, total [Moles /volume] in Serum or PlasmaOrdered By: Robert Caruso on 05-25-2023 CO2 [Moles/Vol] 29.6 mmol/L Normal 21.0-31.0 [facility] Comment on above: Performed By: #### C SFCCDIFF, CSF GLU, AERC, GS, CSF TP, CSF PCR PANEL #### [address] Chloride [Moles/volume] in S anupam or PlasmaOrdered By: Robert Caruso on 05-25-2023 Chloride [Moles/Vol] 102 mmol/L Normal 98-107 [facility] Comment on above: Performed By: #### C SFCCDIFF, CSF GLU, AERC, GS, CSF TP, CSF PCR PANEL #### [address] Complete Blood Count Auto Di ffon 05-25-2023 Mean Corpuscular HGB Conc 34.0 g/dL Normal 32.0-35.0 [facility] Comment on above: Performed By: #### C SFCCDIFF, CSF GLU, AERC, GS, CSF TP, CSF PCR PANEL #### [address] Monocytes/100 WBC (Bld) 17.76 % Normal 0.00-20.00 [facility] Comment on above: Performed By: #### C SFCCDIFF, CSF GLU, AERC, GS, CSF TP, CSF PCR PANEL #### [address] NRBC% 0.0 /100{WBC} Normal 0-0.5 [facility] Comment on above: Performed By: #### C SFCCDIFF, CSF GLU, AERC, GS, CSF TP, CSF PCR PANEL #### [address] Comprehensive Metabolic Pane arjun 05-25-2023 Albumin [Mass/Vol] 4.4 g/dL Normal 3.5-5.7 [facility] Comment on above: Performed By: #### C SFCCDIFF, CSF GLU, AERC, GS, CSF TP, CSF PCR PANEL #### [address] Creatinine Clr Calc Pharmacy 59.72 Normal [facility] Comment on above: Result Comment: PERF ORMED BY: [place] [address] PATHOLOGIST CUSTOM STUDIO COORDINATOR ELE SPRING M.D. Performed By: #### C SFCCDIFF, CSF GLU, AERC, GS, CSF TP, CSF PCR PANEL #### [address] GFR/1.73 sq M.predicted MDRD (S/P/Bld) [Vol rate/Area] mL/min/{1.73_m2} Normal [facility] Comment on above: Performed By: #### C SFCCDIFF, CSF GLU, AERC, GS, CSF TP, CSF PCR PANEL #### [address] Creatinine [Mass/volume] in Serum or PlasmaOrdered By: Robert Caruso on 05-25-2023 Creatinine [Mass/Vol] 0.76 mg/dL Normal 0.60-1.20 [facility] Comment on above: Performed By: #### C SFCCDIFF, CSF GLU, AERC, GS, CSF TP, CSF PCR PANEL #### [address] Drug Screen,Urineon 05-25-19 24 Amphetamine Screen,Urine Negative Normal Negative [facility] Comment on above: Performed By: #### U HCG, URDS #### [address] Barbiturate Screen,Urine Negative Normal Negative [facility] Comment on above: Performed By: #### U HCG, URDS #### [address] Benzodiazepines Screen,Urine Negative Normal Negative [facility] Comment on above: Performed By: #### U HCG, URDS #### [place] [address] [place] Cannabinoid Screen,Urine Negative Normal Negative [facility] Comment on above: Result Comment: Thes e are unconfirmed results and should not be used for legal purposes. Drug Cut-Off Concentration: AMPH 1000 ng/mL GABRIELA 200 ng/mL SIVA 200 ng/mL COCM 300 ng/mL OP 300 ng/mL PCP 25 ng/mL THC 20 ng/mL PERFORMED BY: [place] [address] PATHOLOGIST CUSTOM STUDIO COORDINATOR ELE SPRING M.D. Performed By: #### U HCG, URDS #### [address] Cocaine Screen,Urine Negative Normal Negative [facility] Comment on above: Performed By: #### U HCG, URDS #### [address] Opiate Screen,Urine Negative Normal Negative [facility] Comment on above: Performed By: #### U HCG, URDS #### [address] Phencyclidine Screen,Urine Negative Normal Negative [facility] Comment on above: Performed By: #### U HCG, URDS #### [address] ECG 12 lead ECGon 05-25-2023 ECG 12 lead ECG [facility] [place] [address] [place] [address] Electrocardiograph Report Signed Patient: Donnie Bullock MR#: [id number] [birth year] : 1955 Acct:[id number] Age/Sex: 67 / F ADM Date: 05/25/23 Loc: Room: [address] [place] [address] Type: ADM IN Attending Dr: Sridhar Hoffman [...] previous ECGs available Confirmed by Fidel Flood ([id number]) on 05/25/2023 5:09:43 PM Referred By: Electronically Signed By:Fidel Flood Transcribed By: MUS Signed By Fidel Flood MD 05/25/23 1709 Normal [facility] Erythrocyte distribution wid th [Ratio] by Automated countOrdered By: Robert Caruso on 05-25-2023 Erythrocyte distribution width (RBC) [Ratio] 12.9 % Normal 11.9-15.3 [facility] Comment on above: Performed By: #### C SFCCDIFF, CSF GLU, AERC, GS, CSF TP, CSF PCR PANEL #### [facility] [address] Erythrocytes [#/volume] in B lood by Automated countOrdered By: Robert Caruso on 05-25-2023 RBC (Bld) [#/Vol] 4.74 10*6/uL Normal 3.60-5.00 [facility] Comment on above: Performed By: #### C SFCCDIFF, CSF GLU, AERC, GS, CSF TP, CSF PCR PANEL #### [facility] [address] Ethanol [Mass/volume] in Ser um or PlasmaOrdered By: Robert Caruso on 05-25-2023 Ethanol [Mass/Vol] mg/dL Normal [facility] Comment on above: Performed By: #### C SFCCDIFF, CSF GLU, AERC, GS, CSF TP, CSF PCR PANEL #### [facility] [address] [place] [address] [place] Ethanol [Mass/Vol] TNP [facility] Comment on above: Test not performed Ethyl Alcohol Profileon Percent Ethanol Not performed Normal [facility] Comment on above: Result Comment: PERF ORMED BY: [place] [address] PATHOLOGIST CUSTOM STUDIO COORDINATOR ELE SPRING M.D. Performed By: #### C SFCCDIFF, CSF GLU, AERC, GS, CSF TP, CSF PCR PANEL #### [facility] [address] [place] [address] [place] Glucose [Mass/volume] in Ser um or PlasmaOrdered By: Robert Caruso on 05-25-2023 Glucose [Mass/Vol] 120 mg/dL High 70-100 [facility] Comment on above: ADA recommended refe rence rangeRandom Glucose Reference Range is dependent on time and content of last meal. Glucose of more than 200 mg/dL in a nonstressed, ambulatory subject supports the diagnosis of Diabetes Mellitus. Result Comment: [place] om Glucose Reference Range is dependent on time and content of last meal. Glucose of more than 200 mg/dL in a nonstressed, ambulatory subject supports the diagnosis of Diabetes Mellitus. ADA recommended reference range Performed By: #### C SFCCDIFF, CSF GLU, AERC, GS, CSF TP, CSF PCR PANEL #### [address] HCG ( test) [place].rapi d Ql (U)Ordered By: Robert Caruso on 05-25-2023 HCG ( test) Ql (U) Negative [facility] HCG,Urineon 05-25-2023 Beta HCG ( test) Ql (U) Negative Normal [facility] Comment on above: Result Comment: PERF ORMED BY: [place] [address] PATHOLOGIST CUSTOM STUDIO COORDINATOR ELE SPRING M.D. Performed By: #### U HCG, URDS #### [facility] [address] Hematocrit [Volume Fraction] of Blood by Automated countOrdered By: Robert Caruso on 05-25-2023 Hematocrit (Bld) [Volume fraction] 41.6 % Normal 34.0-46.4 [facility] Comment on above: Performed By: #### C SFCCDIFF, CSF GLU, AERC, GS, CSF TP, CSF PCR PANEL #### [place] [address] [place] Hemoglobin [Mass/volume] in BloodOrdered By: Robert Caruso on 05-25-2023 Hemoglobin (Bld) [Mass/Vol] 14.1 g/dL Normal 11.8-15.4 [facility] Comment on above: Performed By: #### C SFCCDIFF, CSF GLU, AERC, GS, CSF TP, CSF PCR PANEL #### [facility] [address] Leukocytes [#/volume] correc gage for nucleated erythrocytes in Blood by Automated counOrdered By: Robert Caruso on 05-25-2023 WBC corrected for nucl RBC Auto (Bld) [#/Vol] 7.0 10*3/uL 3.8-11.6 [facility] Leukocytes [#/volume] in Blo od by Automated countOrdered By: Robert Caruso on 05-25-2023 WBC (Bld) [#/Vol] 7.0 10*3/uL Normal 3.8-11.6 [facility] Comment on above: Performed By: #### C SFCCDIFF, CSF GLU, AERC, GS, CSF TP, CSF PCR PANEL #### [place] [address] [place] Lymphocytes [#/volume] in Bl ood by Automated countOrdered By: Robert Caruso on 05-25-2023 Lymphocytes (Bld) [#/Vol] 1.1 10*3/uL Normal 1.00-4.8 [facility] Comment on above: Performed By: #### C SFCCDIFF, CSF GLU, AERC, GS, CSF TP, CSF PCR PANEL #### [place] [address] [place] Lymphocytes/100 leukocytes i n Blood by Automated countOrdered By: Robert Caruso on 05-25-2023 Lymphocytes/100 WBC (Bld) 15.5 % Normal . [facility] Comment on above: Performed By: #### C SFCCDIFF, CSF GLU, AERC, GS, CSF TP, CSF PCR PANEL #### [place] [address] [place] MCH [Entitic mass] by Automa gage countOrdered By: Robert Caruso on 05-25-2023 MCH (RBC) [Entitic mass] 29.9 pg Normal 24.7-34.3 [facility] Comment on above: Performed By: #### C SFCCDIFF, CSF GLU, AERC, GS, CSF TP, CSF PCR PANEL #### [facility] [address] MCHC Auto (RBC) [Mass/Vol]Or dered By: Robert Caruso on 05-25-2023 MCHC (RBC) [Mass/Vol] 34.0 g/dL 32.0-35.0 [facility] MCV [Entitic volume] by Auto mated countOrdered By: Robert Caruso on 05-25-2023 MCV (RBC) [Entitic vol] 87.8 fL Normal 80-100 F [facility] Comment on above: Performed By: #### C SFCCDIFF, CSF GLU, AERC, GS, CSF TP, CSF PCR PANEL #### [facility] [address] Monocyte distribution width [Entitic volume] in Blood by AutomatedOrdered By: Robert Caruso on 05-25-2023 Monocyte distribution width Auto (Bld) [Entitic vol] 17.76 % 0.00-20.00 [facility] Neutrophils [#/volume] in Bl ood by Automated countOrdered By: Robert Caruso on 05-25-2023 Neutrophils (Bld) [#/Vol] 5.6 10*3/uL Normal 1.8-7.7 [facility] Comment on above: Performed By: #### C SFCCDIFF, CSF GLU, AERC, GS, CSF TP, CSF PCR PANEL #### [facility] [address] No Panel InformationOrdered By: Robert Caruso on 05-25-2023 Estimated GFR (CKD-EPI) > 60.0 mL/Min [facility] Creatinine Clearance (Chem 59.72 [facility] Nucleated erythrocytes [Pres ence] in Blood by Automated countOrdered By: Robert Caruso on 05-25-2023 Nucleated RBC Auto Ql (Bld) 0.0 /100{WBC} 0-0.5 [facility] Opiates [Presence] in Urine by Screen methodOrdered By: Robert Caruso on 05-25-2023 Opiates Screen Ql (U) Negative Negative [facility] Phencyclidine Screen Ql (U)O rdered By: Robert Caruso on 05-25-2023 Phencyclidine Ql (U) Negative Negative [facility] Platelet mean volume [Entiti c volume] in Blood by Automated countOrdered By: Robert Caruso on 05-25-2023 Platelet mean volume (Bld) [Entitic vol] 7.9 fL Normal 6.3-10.7 [facility] Comment on above: Performed By: #### C SFCCDIFF, CSF GLU, AERC, GS, CSF TP, CSF PCR PANEL #### [facility] [address] [place] [address] [place] Platelets [#/volume] in Bloo d by Automated countOrdered By: Robert Caruso on 05-25-2023 Platelets (Bld) [#/Vol] 292 10*3/uL Normal 150-450 [facility] Comment on above: Performed By: #### C SFCCDIFF, CSF GLU, AERC, GS, CSF TP, CSF PCR PANEL #### [facility] [address] [place] [address] [place] Potassium [Moles/volume] in Serum or PlasmaOrdered By: Robert Caruso on 05-25-2023 Potassium [Moles/Vol] 3.7 mmol/L Normal 3.5-5.1 [facility] Comment on above: Performed By: #### C SFCCDIFF, CSF GLU, AERC, GS, CSF TP, CSF PCR PANEL #### [facility] [address] [place] [address] [place] Protein [Mass/volume] in Ser um or PlasmaOrdered By: Robert Caruso on 05-25-2023 Protein [Mass/Vol] 7.3 g/dL Normal 6.4-8.9 [facility] Comment on above: Performed By: #### C SFCCDIFF, CSF GLU, AERC, GS, CSF TP, CSF PCR PANEL #### [place] [address] Serum globulin measurement b y calculation (mass/volume)Ordered By: Robert Caruso on 05-25-2023 Globulin (S) [Mass/Vol] 2.9 g/dL Normal [facility] Comment on above: Performed By: #### C SFCCDIFF, CSF GLU, AERC, GS, CSF TP, CSF PCR PANEL #### [address] Serum or plasma albumin/glob ulin mass ratioOrdered By: Robert Caruso on 05-25-2023 Albumin/Globulin [Mass ratio] 1.5 {ratio} Normal [facility] Comment on above: Performed By: #### C SFCCDIFF, CSF GLU, AERC, GS, CSF TP, CSF PCR PANEL #### [address] Serum or plasma anion gap de terminationOrdered By: Robert Caruso on 05-25-2023 Anion gap [Moles/Vol] 10.1 mmol/L Normal 6.0-15.0 [facility] Comment on above: Performed By: #### C SFCCDIFF, CSF GLU, AERC, GS, CSF TP, CSF PCR PANEL #### [address] Sodium [Moles/volume] in Ser um or PlasmaOrdered By: Robert Caruso on 05-25-2023 Sodium [Moles/Vol] 138 mmol/L Normal 136-145 [facility] Comment on above: Performed By: #### C SFCCDIFF, CSF GLU, AERC, GS, CSF TP, CSF PCR PANEL #### [address] Urea nitrogen [Mass/volume] in Serum or PlasmaOrdered By: Robert Caruso on 05-25-2023 Urea nitrogen [Mass/Vol] 12 mg/dL Normal 7-25 [facility] Comment on above: Performed By: #### C SFCCDIFF, CSF GLU, AERC, GS, CSF TP, CSF PCR PANEL #### [place] [id number] [place] .Fentanyl Scrn wo Conf,Uron 05-20-2023 Ur Fentanyl Scrn Negative Normal NEG <1.0 [facility] Comment on above: Performed By: #### C [id number] #### [facility] [address] [place] [address] Ur Fentanyl Scrn Qnt 0.10 ng/mL Normal <=0.99 [facility] Comment on above: Performed By: #### C [id number] #### [place] [address] [place] [address] .eGFRon 05-20-2023 GFR/1.73 sq M.predicted MDRD (S/P/Bld) [Vol rate/Area] mL/min/{1.73_m2} Normal >=60 [facility] Comment on above: Result Comment: [facility] Laboratories have implemented the eGFR calculation [...] years Performed By: #### E GFR #### [address] [address] CBC w/ Diffon 05-20-2023 Erythrocyte distribution width (RBC) [Ratio] 13.2 % Normal 11.6-14.8 [facility] Comment on above: Performed By: #### C BC #### [address] [address] Hematocrit (Bld) [Volume fraction] 40.9 % Normal 36.0-46.0 [facility] Comment on above: Performed By: #### C BC #### [address] [address] Hemoglobin (Bld) [Mass/Vol] 13.9 g/dL Normal 12.0-16.0 [facility] Comment on above: Performed By: #### C BC #### [address] [address] MCH (RBC) [Entitic mass] 30.1 pg Normal 27.0-35.0 [facility] Comment on above: Performed By: #### C BC #### [address] [address] MCHC 34.1 % Normal 31.0-37.0 [facility] Comment on above: Performed By: #### C BC #### [address] [address] MCV (RBC) [Entitic vol] 88.2 fL Normal 80.0-100.0 [place] Comment on above: Performed By: #### C BC #### [address] [address] Platelet 250 x10*3/mcL Normal 150-450 [facility] Comment on above: Performed By: #### C BC #### [address] [address] Platelet mean volume (Bld) [Entitic vol] 7.6 fL Normal 6.7-10.6 [facility] Comment on above: Performed By: #### C BC #### [address] [address] RBC 4.63 x10*6/mcL Normal 3.80-5.20 [facility] Comment on above: Performed By: #### C BC #### [address] [address] WBC 5.6 x10*3/mcL Normal 4.5-11.0 [facility] Comment on above: Performed By: #### C BC #### [address] [address] CMPon 05-20-2023 Albumin [Mass/Vol] 4.5 g/dL Normal 3.2-4.9 [facility] Comment on above: Performed By: #### C OMP #### [address] [address] Albumin/Globulin [Mass ratio] 1.4 {ratio} Normal 1.1-2.2 [facility] Comment on above: Performed By: #### C OMP #### [address] [address] Alk Phos 47 IU/L Normal 32-91 [facility] Comment on above: Performed By: #### C OMP #### [address] [address] ALT [Catalytic activity/Vol] 18 U/L Normal 14-54 [facility] Comment on above: Performed By: #### C OMP #### [address] [address] Anion gap [Moles/Vol] 14 mmol/L Normal 7-17 [facility] Comment on above: Performed By: #### C OMP #### [address] [address] AST [Catalytic activity/Vol] 28 U/L Normal 15-41 [facility] Comment on above: Performed By: #### C OMP #### [address] [address] Bili Total 0.8 mg/dL Normal 0.3-1.2 [facility] Comment on above: Performed By: #### C OMP #### [address] [address] Calcium [Mass/Vol] 10.1 mg/dL Normal 8.5-10.3 [facility] Comment on above: Performed By: #### C OMP #### [address] [address] Chloride [Moles/Vol] 100 mmol/L Normal 98-110 [facility] Comment on above: Performed By: #### C OMP #### [address] [address] CO2 [Moles/Vol] 27 mmol/L Normal 22-32 [facility] Comment on above: Performed By: #### C OMP #### [address] [address] Creatinine [Mass/Vol] 0.96 mg/dL Normal 0.44-1.03 [facility] Comment on above: Performed By: #### C OMP #### [address] [address] Glucose [Mass/Vol] 116 mg/dL High 70-99 [facility] Comment on above: Performed By: #### C OMP #### [address] [address] Potassium [Moles/Vol] 4.0 mmol/L Normal 3.4-4.8 [facility] Comment on above: Performed By: #### C OMP #### [address] [address] Protein [Mass/Vol] 7.8 g/dL Normal 6.5-8.1 [facility] Comment on above: Performed By: #### C OMP #### [address] [address] Sodium [Moles/Vol] 137 mmol/L Normal 133-142 [facility] Comment on above: Performed By: #### C OMP #### [address] [address] Urea nitrogen [Mass/Vol] 13 mg/dL Normal 8-26 [facility] Comment on above: Performed By: #### C OMP #### [address] [address] Urea nitrogen/Creatinine [Mass ratio] 13.5 mg/mg Normal 10.0-20.0 [facility] Comment on above: Performed By: #### C OMP #### [address] [address] [address] Brain w/o Contraston CT Brain w/o [...] or other acute finding. Radiation Dose Estimate: CTDI(mGy):0.385235 / / / kVp:120.431263 / mAs:0.544823 / / / DLP(mGy-cm):5.079534E maureen Part: Head CTDI(mGy):44.280138 / / / kVp:120.900939 / mAs:182.906082 / / / DLP(mGy-cm):813.42822 7Body Part: Head Final Dictated by: Tremayne Butler MD Dictated DT/TM: 05.20.2023 2:48 pm Signed by: Tremayne Butler MD Signed (Electronic Signature): 05.20.2023 2:50 pm (If Report Is Signed, Electronically Signed in Other Vendor System) Normal [facility] Diff Autoon 05-20-2023 Baso Absolute 0.0 x10*3/mcL Normal 0.0-0.2 [facility] Comment on above: Performed By: #### . Automated Diff #### [address] [address] Basophils/100 WBC (Bld) 0.5 % Normal 0.0-1.5 B [facility] Comment on above: Performed By: #### . Automated Diff #### [address] [address] Eos Absolute 0.0 x10*3/mcL Normal 0.0-0.4 [facility] Comment on above: Performed By: #### . Automated Diff #### [address] [address] Eosinophils/100 WBC (Bld) 0.4 % Normal 0.0-5.4 [facility] Comment on above: Performed By: #### . Automated Diff #### [address] [address] Lymph Absolute 1.3 x10*3/mcL Normal 1.0-4.8 [facility] Comment on above: Performed By: #### . Automated Diff #### [address] [address] Lymphocytes/100 WBC (Bld) 22.8 % Low 27.2-40.8 [facility] Comment on above: Performed By: #### . Automated Diff #### [address] [address] [place] Absolute 0.3 x10*3/mcL Normal 0.1-1.1 [facility] Comment on above: Performed By: #### . Automated Diff #### [address] [address] Monocytes/100 WBC (Bld) 5.2 % Normal 3.7-11.9 [place] Comment on above: Performed By: #### . Automated Diff #### [address] [address] Neutro Absolute 4.0 x10*3/mcL Normal 1.8-7.7 [facility] Comment on above: Performed By: #### . Automated Diff #### [address] [address] Neutro Auto 71.1 % High 47.2-70.8 [facility] Comment on above: Performed By: #### . Automated Diff #### [address] [address] ED Clinical Summaryon 2023 ED Clinical Summary [place] [id number] [place] [address] ED Clinical Summary Person Information Name: Donnie Bullock/[place] Age: 67 Years : 1955 Sex: Female PCP: Calvin ROGERS, Remigio Helm Marital Status: Phone: Race: White Ethnicity: Not or Language: Sri Lankan Visit Reason: Psychiatric screening exam; psych screen Acuity: 2 Enc Type: Emergency Med Service: Emergency Medicine Arrival: 05/20/2023 13:12:08 Discharge: 05/20/2023 17:38:00 LOS: 000 04:26 Checkin: 05/20/2023 13:12:08 Checkout: 05/20/2023 17:38:00 Dispo Type: Home or Self Care Address: [address] [place] [address] [facility] [id number] Provider Notes: Diagnosis: 1:Encounter for medical screening [...] range between ( 27.2 and 40.8 ) [place] Auto: 5.2 % -- Normal range between [...] range between ( 36.0 and 46.0 ) [place] Absolute: 0.3 x10 MCH: 30.1 pg -- [...] 05/20/2023 15:28:08 Follow up: With: Address: When: [facility] With: Address: When: Remigio Simpson [facility] [place] [phone] Business (1) Within 1 week Discharge Orders: Discharge Patient 05/20/23 17:30:00 EST, Discharge to Home, Self Patient Education Information: Anxiety Reaction [facility] Poison Help line: . [facility] Health Hotline: [place] Tobacco Quit Line: [facility] ([place], [place]) [address]: [phone] [facility] ([place], [place]) [address]: (more content not included)... Normal [facility] ED Note-Nursingon 05-20-2023 ED Note-Nursing Patients reports patient had covid 04/21/23 and most of her symptoms are stemming from that; increased memory loss, confusion, weight loss, panic attacks. Patient did take Paxlovid. Patient was seen at [facility] on Wednesday and taken off Xanax as they felt her hallucinations could be from that, and they prescribed hydroxizine. 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 Patient denies SI and HI but is frustrated that she is having these issues and is not her normal self. Electronically signed by Odalys Munroe 05/20/23 14:33 EST Normal [facility] ED Note-Physicianon 05-20-19 ED Note-Physician Chief [...] High Lymph Auto 05/20/23 15:21 22.8 Low [place] Auto 05/20/23 15:21 5.2 Eos Auto 05/20/23 15:21 0.4 Basophil Auto 05/20/23 15:21 0.5 Neutro Absolute 05/20/23 15:21 4.0 Lymph Absolute 05/20/23 15:21 1.3 [place] Absolute 05/20/23 15:21 0.3 Eos Absolute 05/20/23 [...] Screen 05/20/23 13:25 Negative Ur Opiate Scrn 01/04/24 13:25 Negative Ur PCP Scrn 05/20/23 13:25 Negative Ur Fentanyl Scrn 05/20/23 13:25 Negative UA Macroscopic LATEST RESULTS UA Spec Grav 05/20/23 13:25 1.013 UA pH 05/20/23 13:25 7.0 Diagnostic Results Computerized Tomagraphy CT Brain w/o Contrast 05/20/23 14:50:13 IMPRESSION: No evidence of intracranial hemorrhage or other acute finding. Signed By: Tremayne Butler MD Electronically signed by [place] Sherri ROGERS 05/25/23 20:00 EST Normal [facility] ED Note-Physician Chief Complaint pt was [...] obtain a CT head and have social and human services assistant speak with the patient she was sent in by her therapist that she describes it Sign out to Dr. Hernandez at the end of my shift for disposition and social and human services assistant recommendation Assessment/Plan Psychiatric screening exam (Complaint of) [...] Orta / (more content not included)... Normal [facility] Ethanolon 05-20-2023 Ethanol, Plasma <10 Normal <=9 [facility] Comment on above: Result Comment: To c onvert mg/dL to g/dL, divide result by 1,000. Legal limit of intoxication is 80 mg/dL (0.08 g/dL). Performed By: #### A #### [facility] [address] [place] [address] UDS Compon 05-20-2023 Creatinine [Mass/Vol] 100.2 mg/dL Normal Bl [facility] Comment on above: Performed By: #### C [id number] #### [facility] [address] [place] [address] Ur Amph Scrn Negative Normal NEG = <1000 [facility] Comment on above: Performed By: #### C D:[id number] #### [address] [place] [address] Ur Gabriela Scrn Negative Normal NEG = <200 [facility] Comment on above: Performed By: #### C [id number] #### [address] [address] Ur Benzodia Scrn Negative Normal NEG = <200 [facility] Comment on above: Performed By: #### C [id number] #### [address] [address] Ur Cannab Scrn Negative Normal NEG = <50 [facility] Comment on above: Performed By: #### C D:[id number] #### [address] [place] [address] Ur Cocaine Scrn Negative Normal NEG = <300 [facility] Comment on above: Performed By: #### C [id number] #### [address] [place] [address] Ur Methadone Scn Negative Normal NEG = <300 [facility] Comment on above: Performed By: #### C [id number] #### [facility] [address] [place] [address] [place] [address] Ur Opiate Scrn Negative Normal NEG = <300 [facility] Comment on above: Performed By: #### C D:[id number] #### [address] [address] Ur Oxy Screen Negative Normal NEG = <100 [facility] Comment on above: Performed By: #### C [id number] #### [address] [address] Ur Oxy Scrn Qnt 9 ng/mL Normal <=99 [facility] Comment on above: Performed By: #### C D:[id number] #### [facility] [address] [place] [address] Ur PCP Scrn Negative Normal NEG = <25 [facility] Comment on above: Performed By: #### C D:[id number] #### [facility] [address] [place] [address] UA pH 7.0 Normal 4.5 - 7.8 [facility] Comment on above: Performed By: #### C D:[id number] #### [address] [place] [address] UA Spec Grav 1.013 Normal 1.003-1.035 [facility] Comment on above: Performed By: #### C D:[id number] #### [address] [place] [address] Outside Colonoscopyon 2022 Outside Colonoscopy [id number]. [id number]:127 Normal [facility] Reminderson 01-28-2023 Reminders - From: Sarah Griffiths LPN To: N - Clinical; Sent: 01/28/2023 13:00:59 EDT Show up: 12/27/2032 07:00:00 EDT Subject: colonoscopy recall Due Date/Time: 01/27/2033 07:00:00 EDT Reminder/Recall Patient due for screening colonoscopy 01/27/2033. Normal [facility] Consent for Procedure/Surger yon 01-12-2023 Consent for Procedure/Surgery [id number] .[id number]:127 Normal [facility] Ambulatory Visit Summaryon 0 01-08-2023 Ambulatory Visit Summary DONNIE BULLOCK :1955 Visit Date:01/08/2023 Ambulatory Visit Instructions Your Care Team Attending Physician - AVNI ROGERS, Amor Pollock Primary Care Physician - CALVIN ROGERS, REMIGIO Referring Physician - CALVIN ROGERS, REMIGIO This Is Your Medications List Contact prescribing [...] longer receiving treatment for. Carpal tunnel Normal [facility] RAD - CT Reporton 01-07-2023 RAD - CT Report [id number] .[id number]:127 Normal [facility] Physician Referralon 023 Physician Referral [id number] .[id number]:127 Normal [facility] CBC AUTO DIFFon 09-10-2022 BASO # 0.0 103/ul Normal 0.0-0.1 [facility] Comment on above: Performed By: #### C BC #### [facility] [address] [place] [address] Dr. Jess Marie Basophils/100 WBC (Bld) 0.4 % Normal 0.2-2.0 [facility] Comment on above: Performed By: #### C BC #### [facility] [address] [place] [address] Dr. Jess Marie EO # 0.0 103/ul Normal 0.0-0.7 [facility] Comment on above: Performed By: #### C BC #### [facility] [address] [place] [address] Dr. Jess Marie Eosinophils/100 WBC (Bld) 0.4 % Critically low 0.9-7.0 [facility] Comment on above: Performed By: #### C BC #### [facility] [address] [place] [address] Dr. Jess Marie Erythrocyte distribution width (RBC) [Ratio] 12.5 % Normal 11.0-15.0 [facility] Comment on above: Performed By: #### C BC #### [facility] [address] [place] [address] Dr. Jess Marie Hematocrit (Bld) [Volume fraction] 43.1 % Normal 36.0-48.0 [facility] Comment on above: Performed By: #### C BC #### [facility] [address] [place] [address] Dr. Jess Marie Hemoglobin (Bld) [Mass/Vol] 14.0 g/dL Normal 12.0-16.0 [facility] Comment on above: Performed By: #### C BC #### [facility] [address] [place] [address] Dr. Jess Marie IG # 0.01 10e3/ul Normal 0.00-0.03 [facility] Comment on above: Performed By: #### C BC #### [facility] [address] [place] [address] Dr. Jess Marie IG % 0.2 % Normal 0.0-0.5 [facility] Comment on above: Performed By: #### C BC #### [facility] [address] [place] [address] Dr. Jess Marie LYMPH # 1.4 103/ul Normal 1.2-3.8 [facility] Comment on above: Performed By: #### C BC #### [facility] [address] [place] [address] Dr. Jess Marie Lymphocytes/100 WBC (Bld) 26.8 % Normal 20.5-60.0 [facility] Comment on above: Performed By: #### C BC #### [facility] [address] [place] [address] Dr. Jess Marie MANUAL DIFF REQ NO Normal [facility] Comment on above: Performed By: #### C BC #### [facility] [address] [place] [address] Dr. Jess Marie MCH (RBC) [Entitic mass] 29.7 pg Normal 26.7-34.0 [facility] Comment on above: Performed By: #### C BC #### [facility] [address] [place] [address] Dr. Jess Marie MCHC (RBC) [Mass/Vol] 32.5 g/dL Normal 29.9-35.2 [facility] Comment on above: Performed By: #### C BC #### [facility] [address] [place] [address] Dr. Jess Marie MCV (RBC) [Entitic vol] 91.3 fL Normal 81.0-99.0 [facility] Comment on above: Performed By: #### C BC #### [facility] [address] [place] [address] Dr. Jess Marie MONO # 0.3 103/ul Normal 0.3-0.8 [facility] Comment on above: Performed By: #### C BC #### [facility] [address] [place] [address] Dr. Jess Marie Monocytes/100 WBC (Bld) 5.2 % Normal 1.7-12.0 [facility] Comment on above: Performed By: #### C BC #### [facility] [address] [place] [address] Dr. Jess Marie NEUT # 3.5 103/ul Normal 1.4-6.5 [facility] Comment on above: Performed By: #### C BC #### [facility] [address] [place] [address] Dr. Jess Marie Neutrophils/100 WBC (Bld) 67.0 % Normal 43.0-75.0 [facility] Comment on above: Performed By: #### C BC #### [facility] [address] [address] [address] Jess Marie Platelet mean volume (Bld) [Entitic vol] 9.7 fL Normal 9.5-13.5 [facility] Comment on above: Performed By: #### C BC #### [facility] [address] [place] [address] Dr. Jess Marie PLT 230 103/ul Normal 150-450 [facility] Comment on above: Performed By: #### C BC #### [facility] [address] [place] [address] Dr. Jess Marei RBC 4.72 106/ul Normal 4.20-5.40 [facility] Comment on above: Performed By: #### C BC #### [facility] [address] [place] [address] Dr. Jess Marie WBC 5.2 103/ul Normal 4.0-11.0 [facility] Comment on above: Performed By: #### C BC #### [facility] [address] [place] [address] Dr. Jess Marie GLYCOHEMOGLOBIN A1Con 2022 ADA RECOMMENDATION SEE BELOW Normal [facility] Comment on above: Result Comment: ADA RECOMMENDED LIMIT 4.0 - 6.0 ADA THERAPEUTIC TARGET < 7.0 ACTION SUGGESTED > 7.0 Performed By: #### A 1C #### [facility] [address] [place] [address] Dr. Jess Marie Glucose [Mass/Vol] 123 mg/dL Normal [facility] Comment on above: Performed By: #### A 1C #### [facility] [address] [place] [address] Dr. Jess Marie HbA1c (Bld) [Mass fraction] 5.9 % Normal 4.5-6.2 [facility] Comment on above: Performed By: #### A 1C #### [facility] [address] [place] [address] Dr. Jess Marie LIPID PROFILEon 09-10-2022 CHOL-HDL RATIO NORM SEE BELOW Normal [facility] Comment on above: Result Comment: 3.3 - 4.4 LOW RISK 4.4 - 7.1 AVERAGE RISK 7.1 - 11.0 MODERATE RISK >11.0 HIGH RISK Performed By: #### T SH, LIVER, BMP, LIPID #### [facility] [address] [address] [address] Jess Marie Cholesterol [Mass/Vol] 267 mg/dL Critically high <=200 [facility] Comment on above: Performed By: #### T SH, LIVER, BMP, LIPID #### [facility] [address] [address] [address] Jess Marie Cholesterol in HDL [Mass/Vol] 79 mg/dL Critically high 40-60 [facility] Comment on above: Performed By: #### T SH, LIVER, BMP, LIPID #### [facility] [address] [address] [address] Jess Marie Cholesterol in LDL [Mass/Vol] 172.4 mg/dL Normal [facility] Comment on above: Performed By: #### T SH, LIVER, BMP, LIPID #### [facility] [address] [address] [address] Jess Marie Cholesterol.total/Mandie sterol in HDL [Mass ratio] 3.4 {ratio} Normal [facility] Comment on above: Performed By: #### T SH, LIVER, BMP, LIPID #### [facility] [address] [address] [address] Jess Marie HDL NORMAL > or = 60 mg/dl - LO W CARDIOVASCULAR RISK <40 mg/dl - HIGH CARDIOVASCULAR RISK Normal [facility] Comment on above: Performed By: #### T SH, LIVER, BMP, LIPID #### [facility] [address] [address] [address] Jess Marie LDL CALC NORMAL SEE BELOW Normal [facility] Comment on above: Result Comment: <100 mg/dl OPTIMAL 100 - 129 mg/dl NEAR OR ABOVE OPTIMAL 130 - 159 mg/dl BORDERLINE HIGH 160 - 189 mg/dl HIGH >190 mg/dl VERY HIGH Performed By: #### T SH, LIVER, BMP, LIPID #### [facility] [address] [address] [address] Jess Marie Triglyceride [Mass/Vol] 78 mg/dL Normal <=150 [facility] Comment on above: Performed By: #### T SH, LIVER, BMP, LIPID #### [facility] [address] [address] [address] Jess Marie VLDL CALC 15.6 mg/dL Normal [facility] Comment on above: Performed By: #### T SH, LIVER, BMP, LIPID #### [facility] [address] [address] [address] Jess Marie LIVER PROFILEon 09-10-2022 Albumin [Mass/Vol] 3.9 g/dL Normal 3.4-5.0 [facility] Comment on above: Performed By: #### T SH, LIVER, BMP, LIPID #### [facility] [address] [address] [address] Jess Marie Albumin/Globulin [Mass ratio] 0.9 {ratio} Normal [facility] Comment on above: Performed By: #### T SH, LIVER, BMP, LIPID #### [facility] [address] [address] [address] Jess Marie ALP [Catalytic activity/Vol] 61 U/L Normal 46-116 [facility] Comment on above: Performed By: #### T SH, LIVER, BMP, LIPID #### [facility] [address] [address] [address] Jess Marie ALT [Catalytic activity/Vol] 25 U/L Normal 14-59 [facility] Comment on above: Performed By: #### T SH, LIVER, BMP, LIPID #### [facility] [address] [address] [address] Jess Marie AST [Catalytic activity/Vol] 27 U/L Normal 15-37 [facility] Comment on above: Performed By: #### T SH, LIVER, BMP, LIPID #### [facility] [address] [address] [address] Jess Marie BILI, CONJUGATED 0.1 mg/dL Normal 0.0-0.2 [facility] Comment on above: Performed By: #### T SH, LIVER, BMP, LIPID #### [facility] [address] [address] [address] Jess Marie Bilirubin [Mass/Vol] 0.7 mg/dL Normal 0.2-1.0 [facility] Comment on above: Performed By: #### T SH, LIVER, BMP, LIPID #### [facility] [address] [place] [address] Dr. Jess Marie Globulin (S) [Mass/Vol] 4.2 g/dL Normal [facility] Comment on above: Performed By: #### T SH, LIVER, BMP, LIPID #### [facility] [address] [place] [address] Dr. Jess Marie Protein [Mass/Vol] 8.1 g/dL Normal 6.4-8.2 [facility] Comment on above: Performed By: #### T SH, LIVER, BMP, LIPID #### [facility] [address] [place] [address] Dr. Jess Marie PROF CHEM 8 (BAS METB)on Anion gap [Moles/Vol] 13.1 mmol/L Normal [facility] Comment on above: Performed By: #### T SH, LIVER, BMP, LIPID #### [facility] [address] [place] [address] Dr. Jess Marie Calcium [Mass/Vol] 9.6 mg/dL Normal 8.5-10.1 [facility] Comment on above: Performed By: #### T SH, LIVER, BMP, LIPID #### [facility] [address] [place] [address] Dr. Jess Marie Chloride [Moles/Vol] 105 mmol/L Normal 98-107 [facility] Comment on above: Performed By: #### T SH, LIVER, BMP, LIPID #### [facility] [address] [place] [address] Dr. Jess Marie CO2 [Moles/Vol] 28.9 mmol/L Normal 21.0-32.0 [facility] Comment on above: Performed By: #### T SH, LIVER, BMP, LIPID #### [facility] [address] [address] [address] Jess Marie Creatinine [Mass/Vol] 0.62 mg/dL Normal 0.55-1.02 [facility] Comment on above: Performed By: #### T SH, LIVER, BMP, LIPID #### [facility] [address] [address] [address] Jess Marie EGFR-AF SOMALI >60 Normal >=60 [facility] Comment on above: Performed By: #### T SH, LIVER, BMP, LIPID #### [facility] [address] [address] [address] Jess Marie EGFR-NON AF SOMALI >60 Normal >=60 [facility] Comment on above: Performed By: #### T SH, LIVER, BMP, LIPID #### [facility] [address] [address] [address] Jess Marie Glucose [Mass/Vol] 112 mg/dL Critically high 74-106 [facility] Comment on above: Performed By: #### T SH, LIVER, BMP, LIPID #### [facility] [address] [address] [address] Jess Marie Potassium [Moles/Vol] 5.0 mmol/L Normal 3.5-5.1 [facility] Comment on above: Result Comment: spec imen slightly hemolyzed Performed By: #### T SH, LIVER, BMP, LIPID #### [facility] [address] [address] [address] Jess Marie Sodium [Moles/Vol] 142 mmol/L Normal 136-145 [facility] Comment on above: Performed By: #### T SH, LIVER, BMP, LIPID #### [facility] [address] [address] [address] Jess Marie Urea nitrogen [Mass/Vol] 15.0 mg/dL Normal 7.0-18.0 [facility] Comment on above: Performed By: #### T SH, LIVER, BMP, LIPID #### [facility] [address] [address] [address] Jess Marie Urea nitrogen/Creatinine [Mass ratio] 24.2 mg/mg Normal [facility] Comment on above: Performed By: #### T SH, LIVER, BMP, LIPID #### [facility] [address] [address] [address] Jess Marie TSHon 09-10-2022 TSH 1.518 uIU/mL Normal 0.358-3.740 [facility] Comment on above: Performed By: #### T SH, LIVER, BMP, LIPID #### [facility] [id number] Jess Marie US CAROTID ART BILon [...] HERSON REBOLLEDO Date: 2022-09-10 12:26 Normal [facility] XR ABD FLAT_UPon 06-10-2022 XR [...] HERSON REBOLLEDO Date: 2022-06-10 08:38 Normal [facility]16 SARS-CoV-2 (COVID-19) RNA YAYA+probe Ql (Unsp spec) Not detected Normal NOT DETECTED [facility] Comment on above: Result Comment: This test is not yet approved or cleared by the [place] FDA. When there are no FDA-approved or cleared tests available, and other criteria are met, FDA can make tests available under an emergency access mechanism called an Emergency Use Authorization (EUA). The EUA for this test is supported by the Drum Tester of Health and Human Service's (HHS's) declaration [...] consistent with SARS-CoV-2. Performed By: #### C [facility] #### [facility] [address] [place] [address] Dr. Jess Marie Vital Signs Date Time Vital Sign Value Performing Clinician Faci lity 09-22-2023 07:30-0400 Body temperature 98 [degF] MD Remigio Simpson Work Phone: [facility] 09-22-2023 07:30-0400 Diastolic blood pressure 60 mm[Hg] MD Remigio Simpson Work Phone: [facility] 09-22-2023 07:30-0400 Heart rate 73 /min MD Remigio Simpson Work Phone: [facility] 09-22-2023 07:30-0400 Respiratory rate 18 /min MD Remigio Simpson Work Phone: [facility] 09-22-2023 07:30-0400 SaO2% (BldA) [Mass fraction] 99 % MD Remigio Simpson Work Phone: [facility] 09-22-2023 07:30-0400 Systolic blood pressure 107 mm[Hg] MD Remigio Simpson Work Phone: [facility] 09-21-2023 08:44-0400 Body height 165.1 cm MD Remigio Simpson Work Phone: [facility] 09-20-2023 08:42-0400 Body weight 67.6 kg MD Remigio Simpson Work Phone: [facility] 09-14-2023 22:32-0400 Body temperature 98 [degF] MD Remigio Simpson Work Phone: [facility] 09-14-2023 22:32-0400 Diastolic blood pressure 70 mm[Hg] MD Remigio Simpson Work Phone: [facility] 09-14-2023 22:32-0400 Heart rate 81 /min MD Remigio Simpson Work Phone: [facility] 09-14-2023 22:32-0400 Respiratory rate 18 /min MD Remigio Simpson Work Phone: [facility] 09-14-2023 22:32-0400 SaO2% (BldA) [Mass fraction] 97 % MD Remigio Simpson Work Phone: [facility] 09-14-2023 22:32-0400 Systolic blood pressure 136 mm[Hg] MD Remigio Simpson Work Phone: [facility] 09-14-2023 19:45-0400 Body height 165.1 cm MD Remigio Simpson Work Phone: [facility] 09-14-2023 19:45-0400 Body weight 66.85 kg MD Remigio Simpson Work Phone: [facility] 06-08-2023 07:30-0500 Body temperature 97.6 [degF] [facility] 06-08-2023 07:30-0500 Diastolic blood pressure 62 mm[Hg] [facility] 06-08-2023 07:30-0500 Heart rate 75 /min [facility] 06-08-2023 07:30-0500 Respiratory rate 16 /min [facility] 06-08-2023 07:30-0500 SaO2% (BldA) [Mass fraction] 97 % [facility] 06-08-2023 07:30-0500 Systolic blood pressure 110 mm[Hg] [facility] 06-07-2023 09:00-0500 Body weight 67.5 kg [facility] 06-04-2023 10:17-0500 Body height 166.37 cm [facility] 05-25-2023 14:29-0500 Diastolic blood pressure 80 mm[Hg] DO Robert Zuly Work Phone: [facility] 05-25-2023 14:29-0500 Heart rate 91 /min DO Robert Zuly Work Phone: [facility] 05-25-2023 14:29-0500 Respiratory rate 18 /min DO Robert Zuly Work Phone: [facility] 05-25-2023 14:29-0500 SaO2% (BldA) [Mass fraction] 98 % DO Robert Zuly Work Phone: [facility] 05-25-2023 14:29-0500 Systolic blood pressure 110 mm[Hg] DO Robert Zuly Work Phone: [facility] 05-25-2023 13:06-0500 Body temperature 98.3 [degF] DO Robert Zuly Work Phone: [facility] 05-25-2023 11:38-0500 Body height 165.1 cm DO Robert Zuly Work Phone: [facility] 05-25-2023 11:38-0500 Body weight 68.1 kg DO Robert Zuly Work Phone: [facility] 01-08-2023 13:49-0400 Diastolic blood pressure 94 mm[Hg] Amor HOLLY [facility] [place] 01-08-2023 13:49-0400 Heart rate 80 /min Amor HOLLY [facility] [place] 01-08-2023 13:49-0400 Respiratory rate 16 /min Amor HOLLY [facility] [place] 01-08-2023 13:49-0400 Systolic blood pressure 136 mm[Hg] Amor HOLLY [facility] [place] Encounters Encounter Date Encounter Type Care Provider Facility Start: 12-24-2023 End: 12-24-2023 ambulatory REMIGIO SIMPSON Not Available Start: 11-04-2023 ambulatory Lionel Umana acility:[facility] Start: 11-02-2023 End: 11-02-2023 ambulatory HERSON SALAZAR Not Available Start: 10-13-2023 End: 10-13-2023 ambulatory REI COBOS Not Available Start: 10-04-2023 End: 10-04-2023 ambulatory REMIGIO SIMPSON Not Available Start: 09-30-2023 End: 09-30-2023 ambulatory Rei Cobos Facility:[facility] Start: 09-27-2023 End: 09-27-2023 ambulatory MONICA SILVER Not Available Start: 09-15-2023 Non-patient / Non-visit MD Remigio Simpson Work Phone: [facility] Work Phone: Start: 09-14-2023 End: 09-22-2023 Evaluation and management of inpatient MD Remigio Simpson Work Phone: [facility]-[address] [place] [address] Work Phone: Start: 09-08-2023 End: 09-08-2023 ambulatory REI COBOS Not Available Start: 09-06-2023 End: 09-06-2023 ambulatory REI COBOS Not Available Start: 08-02-2023 End: 08-02-2023 ambulatory [...] ambulatory REMIGIO SIMPSON Not Available Start: 05-25-2023 Non-patient / Non-visit [facility] Work Phone: Start: 05-25-2023 End: 06-08-2023 Evaluation and management of inpatient DO Robert Caruso Work Phone: [facility] Work Phone: Start: 05-20-2023 End: 05-20-2023 Emergency department patient visit Remigio Simpson MD Facility:[facility]ated [facility] Start: 01-27-2023 End: 01-28-2023 ambulatory Amor HOLLY Facility:CD:[id number] Start: 01-08-2023 End: 01-09-2023 ambulatory Amor HOLLY Facility:[facility] Start: 01-08-2023 End: 01-08-2023 Patient encounter procedure Amor HOLLY General Surgery [facility] Start: 12-30-2022 ambulatory Amor HOLLY Facility :[facility] Start: 09-10-2022 End: 09-11-[address] REMIGIO SIMPSON Facility: Start: 06-09-2022 End: 06-10-[address] REMIGIO SIMPSON Facility:[facility]1 Start: 03-12-2022 End: 03-13-[address] REMIGIO SIMPSON Facility:[facility]1 Start: 11-04-2021 End: 11-04-[address] REMIGIO SIMPSON Facility:[facility]1 Procedures Date Procedure Procedure Detail Performing Clinician Start: 06-30-2023 TB UA (CLEAN/CATCH) MICROSCOPIC IF INDICATE Remigio Simpson MD Work Phone: Start: 12-25-2020 Colonoscopy Amor NI LL Start: 06-29-2014 right carpal tunnel release Amor NILL Start: 06-15-2014 left carpal tunnel release Amor NILL Adenoid excision Amor NIL L Dilation and curetta ge of uterus Amor NILL Comment on above: 2004 tonsillectomy 2 Amor NILL Comment on above: 1958 Vaginal hysterectomy Amor NILL Plan of Treatment Date Care Activity Detail Author Start: 09-22-2023 [facility] Start: 09-15-2023 Administration of prophylactic treatment [facility] Start: 09-14-2023 Hospital admission [facility] Start: 09-06-2023 End: 09-06-2023 Patient encounter procedure 09/06/2023 9:00 AM EDT Office Visit [facility] [address] [place] [phone] Remigio Simpson MD [address] [place] [phone] [facility] Start: 06-30-2023 End: 06-30-2024 Bacteria identified in Urine by Culture Urine culture (clean catch) Microbiology Routine Dysuria Expected: 06/30/2023 (Approximate), Expires: 06/30/2024 [facility] Comment on above: Expected: 06/30/2023 (Approximate), Expires: 06/30/2024 Start: 06-30-2023 End: 06-30-2024 Urinalysis complete panel - Urine Urinalysis with reflex microscopic (clean catch) Lab Routine Dysuria Expected: 06/30/2023 (Approximate), Expires: 06/30/2024 [facility] Work Phone: Comment on above: Expected: 06/30/2023 (Approximate), Expires: 06/30/2024 Start: 06-08-2023 [facility] Start: 05-26-2023 Administration of prophylactic treatment [facility] Start: 05-25-2023 Hospital admission [facility] Start: 05-25-2023 [facility] Start: 03-09-2021 Pneumococcal Vaccine : 65+ Years (2 - PCV) Pneumococcal Vaccine: 65+ Years (2 - PCV) [facility] Start: 1993 Screening for malign ant neoplasm of breast Mammogram [facility] Start: 1953 Medicare Annual Well ness (AWV) Medicare Annual Wellness (AWV) [facility] Start: 1955 Screening for malign ant neoplasm of colon [facility] Patient Education [facility] Work Phone: Patient referral [facility] Work Phone: Immunizations Immunization Date Immunization Notes Care Provider Fa cili 03-17-2022 SARS-CoV-2 (COVID-19 ) mRNAMUL.[id number] Amor HOLLY General [facility] [place] 10-05-2021 SARS-CoV-2 mRNA (hvxvgpeaubb-sogq-wxgbu se) vaccine Amor MONTOYAL General Surgery [place] 03-06-2021 SARS-CoV-2 (COVID-19 ) mRNA BNT-162b2 vax Amor MONTOYAL General [facility] 07-30-2020 SARS-CoV-2 (COVID-19 ) mRNA BNT-162b2 vax Amor MONTOYAL General [facility] [place] Comment on above: Result Comment: 2022: [id number] 07-09-2020 SARS-CoV-2 (COVID-19 ) mRNA BNT-162b2 raquel HOLLY [facility] Surgery [place] Comment on above: Result Comment: 2022: [id number] Payers Date Payer Category Payer Self-pay 2018 Medicare 2014 Unknown 1959 Medicare [id number] 1959 Unknown [id number] 1953 Unknown [id number] 2.16.84 0.1.745778.3.579.2.593 1953 Unknown [id number] 2.16.84 0.1.059039.3.579.2.593 1953 Unknown [id number] 2.16.84 0.1.851542.3.579.2.593 1953 Unknown [id number] 2.16.84 0.1.029973.3.579.2.593 1953 Unknown [id number] 2.16.8 40.1.500192.3.579.2.727 1953 Unknown [id number] 2.16.8 40.1.743147.3.579.2.727 1953 Unknown [id number] 2.16.8 40.1.807261.3.579.2.727 1953 Unknown [id number] 2.16. 840.1.913104.3.579.2.196 1953 Unknown [id number] 2.16.84 0.1.605019.3.579.2.1259 1953 Unknown [id number] 2.16.84 0.1.304016.3.579.2.1259 1953 Unknown [id number] 2.16.84 0.1.713585.3.579.2.1259 1953 Unknown [id number] 2.16.84 0.1.275394.3.579.2.1259 1953 Unknown [id number] 2.16.84 0.1.150561.3.579.2.9 1953 Unknown [id number] 2.16.84 0.1.518408.3.579.2.9 1953 Unknown [id number] 2.16.84 0.1.866870.3.579.2.9 1953 Unknown [id number] 2.16.84 0.1.308056.3.579.2.9 1953 Unknown [id number] 2.16.84 0.1.023048.3.579.2.9 1953 Unknown [id number] 2.16.84 0.1.454656.3.579.2.1259 Unknown [id number] 2.16.8 40.1.028445.3.579.2.531 Unknown [id number] 2.16.8 40.1.213768.3.579.2.531 Unknown [id number] 2.16.8 40.1.772681.3.579.2.531 Unknown [id number] 2.16.8 40.1.602416.3.579.2.531 Social History Date Type Detail Facility Start: 01-08-2023 End: 09-15-2023 Tobacco smoking status Never smoked tobacco (finding) General [facility] [place] Tobacco smoking status Never Gener al Surgery [facility] Start: 06-09-2023 Sex Assigned At Female [facility] Start: 1955 Sex Assigned At Female F [facility] Start: 06-09-2023 Tobacco use and exposure [...] Facility 09-22-2023 Functional status Patient at Baseline [facility] Work Phone: 01-08-2023 Functional Status N/A [facility] Mental Status Date Assessment Result Facility 09-22-2023 Cognitive function Cognitive Sta tus Patient at Baseline [facility] Work Phone: Clinical Notes 03-12-2022 to 09-22-2023 Note Date & Type Note Facility 09-22-2023 Progress note Note Date/Time September 22, 2023 9:37am [facility] [address] [place] [address] Psychiatry Progress Note Signed Patient: Donnie Bullock MR#: [id number] : 1955 Acct:[id number] Age/Sex: 67 / F Adm Date: 4 Loc: Room: [address] [place] [address] Type : ADM IN Attending Dr: Sridhar [...] signed by Lionel Still MD> 09/22/23 0937 [facility] Work Phone: 1(596) 748-126805-07-2024 Progress note Author Lionel kingsley [facility] September 20, 2023 10:19pm Note Date/Time September 20, 2023 10:19p m [facility] EN[facility] [address] [place] [address] Psychiatry Progress Note Signed Patient: Donnie Bullock MR#: [id number] : 1955 Acct:[id number] Age/Sex: 67 / F Adm Date: 4 Loc: Room: [address] [place] [address] Type : ADM IN Attending Dr: Sridhar [...] <Electronically signed by Lionel Still MD> 09/20/23 2210 [facility] Work Phone: 1(952) 955-193405-05-2024 Progress note Author Sridhar Hoffman [facility] September 19, 2023 11:52am Note Date/Time September 19, 2023 11:51a m [facility] [address] [place] [address] Psychiatry Progress Note Signed Patient: Donnie Bullock MR#: [id number] : 1955 Acct:[id number] Age/Sex: 67 / F Adm Date: 4 Loc: Room: [address] [place] [address] Type : ADM IN Attending Dr: Sridhar [...] that she is out of school in [place]. Mental Status Exam: Appearance: grossly normal Mental [...] signed by Sridhar Hoffman MD> 09/19/23 1152 [facility] Work Phone: 1(903) 663-814205-04-2024 Progress note Author Sridhar Hoffman [facility] September 18, 2023 10:54am Note Date/Time September 18, 2023 10:53a m [facility] [address] [place] [address] Psychiatry Progress Note Signed Patient: Donnie Bullock MR#: [id number] : 1955 Acct:[id number] Age/Sex: 67 / F Adm Date: 4 Loc: Room: [address] [place] [address] Type : ADM IN Attending Dr: Sridhar [...] explained Documented By: Sridhar Hoffman MD 09/18/23 1052 Signed By: <Electronically signed by Sridhar Hoffman MD> 09/18/23 1054 [facility] Work Phone: 1(852) 858-203705-03-2024 Progress note Author Sridhar Hoffman [facility] September 17, 2023 11:40am Note Date/Time September 17, 2023 11:40a m [facility] [address] [place] [address] Psychiatry Progress Note Signed Patient: Donnie Bullock MR#: [id number] : 1955 Acct:[id number] Age/Sex: 67 / F Adm Date: 4 Loc: Room: [address] [place] [address] Type : ADM IN Attending Dr: Sridhar [...] signed by Sridhar Hoffman MD> 09/17/23 1140 [facility] Work Phone: 1(121) 546-635705-02-2024 Progress note Author Sridhar Hoffman [facility] September 16, 2023 12:53pm Note Date/Time September 16, 2023 12:53p m [facility] [address] [place] [address] Psychiatry Progress Note Signed Patient: Donnie Bullock MR#: [id number] : 1955 Acct:[id number] Age/Sex: 67 / F Adm Date: 4 Loc: Room: [address] [place] [address] Type : ADM IN Attending Dr: Sridhar [...] explained Documented By: Sridhar Hoffman MD 09/16/23 125 Signed By: <Electronically signed by Sridhar Hoffman MD> 09/16/23 4757 [facility] Work Phone: 1(698) 244-703405-01-2024 History and physical note Author Sridhar Hoffman [facility] September 15, 2023 12:23pm Note Date/Time September 15, 2023 12:24p m [facility] [address] [place] [address] Psychiatry H&P Signed Patient: Donnie Bullock MR#: [id number] : 1955 Acct:[id number] Age/Sex: 67 / F Adm Date: 4 Loc: Room: [address] [place] [address] Type: ADM IN Attending Dr: Sridhar Hoffman [...] way she was living. It was documented thataidne told her to hide all the knives because she thought that she was going to hurt herself. She reported that she thought she saw an Ochoa girl while here in the hospital. She [...] homicidality, reported suicidality Insight: fair Judgment: fair [facility] Medical History Osteopenia History of skin cancer on face, sees dr every 6 months Dementia Panic disorder Surgical [...] Appearance Clear Urine pH 7.0 Ur Specific [place] 1.004 Urine Protein Negative Urine Glucose (UA) [...] signed by Sridhar Hoffman MD> 09/15/23 1223 [facility] Work Phone: 1(547) 195-581502-14-2024 Telephone encounter Note* Telephone Encounter - Remigio Simpson MD - 06/30/2023 12:26 PM EST Patient with increased confusion and concerned of UTI. Please fax orders to [facility]. [facility] [id number] Miscellaneous Notes* Telephone Encounter - Remigio Simpson MD - 06/30/2023 12:26 PM EST Patient with increased confusion and concerned of UTI. Please fax orders to [facility]. documented in this encounterJohn J. [facility] [id number] Hospital Discharge instructions Additional Instructions Important Contact Information You can call [facility] at [phone] any time day or night if you have emergent questions or question regarding discharge instructions. If at any time you are feeling an increase in your psychiatric symptoms, call your physician or behavioral healthcare provider. If any time you have thoughts of harming yourself or others contact one of the following: Call [phone] (available 07/12) Crisis Text Line (available 07/12) text 4HOPE to [phone] [facility] Hope Line (available 8 a.m. Midnight) call [phone] ([phone]) [facility] Work Phone: 1(716) 106-854508-25-2023 NoteChief Complaint consultation for change in bowel [...] Tobacco Use:. Household tobacco (more content not included)...[facility] Comment on above:Result Comment: Electronically Signed By: AVNI ROGERS, Amor Brown.maame\Date and Time Signed: 01/08/23 15:31 [id number] NotePROCEDURE: XR ELBOW RT MIN 3 VIEWS HISTORY: Pain of right elbow joint since falling one year ago COMPARISON: None. FINDINGS: BONES:No fracture, acute abnormality, or significant arthropathy. SOFT TISSUES:No visible soft tissue swelling. EFFUSION:None visible. OTHER: Negative. IMPRESSION: 1. Normal examination. Electronically authenticated by: HERSON REBOLLEDO Date: 2022-03-12 18:14[facility] summary Author Lionel kingsley [facility] September 22, 2023 8:41pm Note Date/Time September 22, 2023 8:41pm [facility] [address] [place] [address] Discharge Summary Signed Patient: Donnie Bullock MR#: [id number] : 1955 Acct:[id number] Age/Sex: 67 / F Adm Date: 4 Loc: 1S Room: [address] [place] [address]: Sridhar Hoffman MD Copies to: MD Sridhar Rivers MD Marc Naderer, MD~ Providers Date of Admission: 09/15/23 Date of Discharge: 09/22/23 Discharging Provider: Lionel Still Primary Care Provider: Remigio Simpson Discharge Diagnosis (1) Major neurocognitive disorder: (2) Depression: (3) Anxiety: Final Diagnosis Final Discharge Diagnosis: Major neurocognitive disorder Major depressive disorder Anxiety Summary Hospital Course Hospital course: Ms. Elder is a 67 year old female who [...] reported that she thought she saw an Ochoa girl while here in the hospital. She [...] Instructions: Important Contact Information You can call [facility] at [phone] any time day or night if you have emergent questions or question regarding discharge instructions. If at any time you are feeling an increase inyour psychiatric symptoms, call your physician or behavioral healthcare provider. If any time you have thoughts of harming yourself or others contact one of the following: Call 8 (available 07/12) Crisis Text Line (available 07/12) text 4HOPE to [phone] [facility] Hope Line (available 8 a.m. Midnight) call [phone] ([phone]) Instructions: Dementia (DC), [facility] DC Instructions, Know your Meds [...] Rx Instructions: 8am and 5pm Follow Up: [facility] [Outside] - 09/29/23 12:30 pm (A disease case manager rn will call you on 09/23/23 between 8:00am [...] 19:40 Documented By: Lionel Still MD 4 0828 Signed By: <Electronically signed by Lionel Still MD> 09/22/232040 [facility] Work Phone: Evaluation + Plan note No data available for this section General Surgery [facility] Evaluation noteNo assessment information available [facility] Work Phone: Evaluation note* Diagnosis Onset Date Resolution Status Anxiety acute Confusion acute Depression acute Major neurocognitive disorder acute Suicidal ideation acute [facility] Work Phone: Evaluation note* Diagnosis Recurrent [...] Major neurocognitive disorder acute Suicidal ideation acute [facility] Work Phone: History and physical note Author Sridhar Hoffman [facility] May 26, 2023 12:28pm Note Date/Time May 26, 2023 1 2:28pm [facility] [address] [place] [address] Psychiatry H&P Signed Patient: Donnie Bullock MR#: [id number] : 1955 Acct:[id number] Age/Sex: 67 / F Adm Date: 4 Loc: Room: [address] [place] [address] Type: ADM IN Attending Dr: Sridhar Hoffman [...] denied current suicidality Insight: fair Judgment: fair [facility] Medical History (Updated 05/26/23 @ 12:28 by [...] signed by Sridhar Hoffman MD> 05/26/23 1228 [facility] Work Phone: Hospital Discharge instructions No data available for this section General Surgery [place] Progress note No data available for this section General Surgery [place] Reason for referral (narrative)* Consultation (Routine) - Pending Review Specialty Diagnoses / Procedures Referred By Linda t Referred To Contact Urology Diagnoses Recurrent UTI Procedures AL OFFICE/OUTPATIENT NEW HIGH MDM 60 MINUTES Remigio Simpson MD [address] [place] [address] Amor Arcos MD [address] [place], [place] [id number] Referral ID Status Reason Start Date Expiration Date Visits Requested Visits Authorized [id number] Pending Review Specialty Services Required 06/29/2023 12/26/2023 [...] CREATED AUTHOR AUTHOR'S ORGANIZ ATION [facility]/17/2023 [facility] DATE CREATED AUTHOR AUTHOR'S ORGANIZ ATION 05/26/2023 [facility] DATE CREATED AUTHOR AUTHOR'S ORGANIZ ATION 11/14/2023 [facility] DATE CREATED AUTHOR AUTHOR'S ORGANIZ ATION 12/26/2023 [facility] EPIC Patient Care team informatio [...] Attending Provider Active Start: May 25, 2023 Chart Snatcher Relationship Specialty Start Date End Date Remigio Simpson MD PCP - General Family Medicine 05/17/22 Chart Snatcher Relationship Specialty Start Date End Date Remigio Simpson MD PCP - General [facility] Medicine 05/17/22 Chart Snatcher Relationship Specialty Start Date End Date Remigio Simpson MD PCP - [facility] Medicine 05/17/22 Team Status: Active Member Role [...] BE BASED ON THE PRIMARY CLINICAL RECORDS. [employer] [facility]. provides no warranty or guarantee of the accuracy or completeness of information in this document.
== END 2023-12-29 08:16 | disposition home or self-care (01) ==
LOC: MAMMO 08:15
PROVIDERS: PCP Family Medicine; Visit Provider Family Medicine
DX: Z12.31 Encounter for screening mammogram for malignant neoplasm of breast (principal); Z80.7 Family history of other malignant neoplasms of lymphoid, hematopoietic and related tissues; Z80.8 Family history of malignant neoplasm of other organs or systems
CPT/HCPCS: 77063; 77067

== ENCOUNTER 2024-01-03 10:07 | Outpatient (REF) | payer MEDICARE, OTHER, SELFPAY ==
[2024-01-03 10:14] LABS: Bilirubin Urine NEGATIVE (NEGATIVE); Blood Urine NEGATIVE (NEGATIVE); Clarity Urine CLEAR (CLEAR); Color Urine LT. YELLOW (YELLOW); Glucose Urine UA NEGATIVE (NEGATIVE); Ketones Urine NEGATIVE (NEGATIVE); Leukocyte Esterase Urine NEGATIVE (NEGATIVE); Nitrite Urine NEGATIVE (NEGATIVE); Protein Urine NEGATIVE (NEG/TRACE); Urobilinogen Urine 0.2 EU/dL (0.2-1.0); pH Urine 6.5 (5.0-9.0)
[2024-01-03 10:18] LABS: Urine Microscopic Indicated NO
== END 2024-01-03 10:08 | disposition home or self-care (01) ==
LOC: LAB 10:07
PROVIDERS: PCP Family Medicine; Visit Provider Family Medicine
DX: R30.0 Dysuria (principal)
CPT/HCPCS: 81003; 87086

== ENCOUNTER 2024-03-15 09:31 | Emergency (ER) | payer MEDICARE, OTHER, SELFPAY ==
[2024-03-15] VITALS (10 sets, daily range): BP systolic 90–122; BP diastolic 61–92; PULSE 64–89; TEMP 36.7; O2SAT 92–99; BMI 27.4
--- NOTE | 2024-03-15 09:57 | CT_ITS ---
The [address] [address] Patient Name: DONNIE BULLOCK MRN: [id number] date: 1955 Sex: F Assigned Patient Location: ER Current Patient Location: ER Accession/Order Number: [id number] Exam Date: 03/15/2024 10:15 Report Date: 03/15/2024 10:34 At the request of: WILLIAM ROBERTS Procedure: CT head/brain wo con EXAMINATION: CT head/brain wo con HISTORY: Acute altered mental status/history dementia COMPARISON: CT head 10/01/2023 TECHNIQUE: Axial CT images were obtained without IV contrast. Dose reduction techniques were achieved by using automated exposure control and/or adjustment of mA and/or kV according to patient size and/or use of iterative reconstruction technique. FINDINGS: BRAIN: No edema, hemorrhage, mass, acute infarction, or inappropriate atrophy. CSF SPACES: No hydrocephalus, subarachnoid hemorrhage, or mass. Appropriate for age. SKULL: No fracture, mass, or other significant visible lesion. SINUSES: No significant mucosal thickening or fluid on the limited views. ORBITS: No appreciable abnormality on the limited views. OTHER: Negative CT/CT head/brain wo con IMPRESSION: 1. No abnormal or suspicious findings to account for patient's symptoms. 2. Stable mild, age consistent atrophy and chronic changes. Electronically authenticated by: HERSON REBOLLEDO Date: 03/15/2024 10:34
--- NOTE | 2024-03-15 10:06 | ED_ITS ---
HPI - Altered Mental Status General Chief Complaint: Altered Mental Status Stated Complaint: CONFUSION/ GENERAL WEAKNESS Time Seen by Provider: 03/15/24 09:37 Source: family and caregiver Mode of arrival: Wheelchair Limitations: altered mental status History of Present Illness HPI narrative: This patient is here with her family from home for concern about progression of her dementia. She is under the care of a local neurologist she has had extensive testing lumbar type punctures, CT/MRI they have concluded that she has Lewy body dementia. They told her it would be episodic in nature but they are just concerned that she might also have other problems today. She has not been running a fever. She has had history of urinary tract infections. She has not had cough cold runny nose or sore throat or COVID symptomatology. She does not seem to be having any pain or discomfort or respiratory distress. She seems to be taking less fluids than usual. She is under the care of Dr. Gill here in the community and a local neurologist. There is no been no trauma, falls or injuries. Related Data Home Medications ?Medication ?Instructions ?Recorded ?Confirmed hydroxyzine HCl 25 mg tablet 25 mg PO Q8H PRN anxiety 07/17/23 10/01/23 mirtazapine 7.5 mg tablet 7.5 mg PO .QHS 07/17/23 10/01/23 haloperidol 0.5 mg tablet 1 mg PO DAILY 10/01/23 10/01/23 melatonin 10 mg tablet,extended 10 mg PO BEDTIME 10/01/23 10/01/23 release Previous Rx's ?Medication ?Instructions ?Recorded meloxicam 7.5 mg tablet 7.5 mg PO DAILY PRN pain #10 tabs 05/16/23 diazepam 2 mg tablet (Valium) 2 mg PO TID-QID PRN muscle spasm 10/01/23 10 days #10 tabs ondansetron 4 mg disintegrating 4 mg PO Q4H PRN nausea and 10/01/23 tablet vomiting 3 days #6 tabs promethazine 25 mg rectal 25 mg KS Q6H PRN nausea and 10/01/23 suppository vomiting #6 ea Allergies Allergy/AdvReac Type Severity Reaction Status Date / Time No Known Drug Allergies Allergy Unverified 03/15/24 09:38 PFSH PFSH Medical History (Updated 03/15/24 @ 11:03 by Colby Peter MD) Normal colonoscopy PSVT (paroxysmal supraventricular tachycardia) ?I47.1 - Supraventricular tachycardia (ICD-10) Positive colorectal cancer screening using Cologuard test ?R19.5 - Other fecal abnormalities (ICD-10) Osteopenia ?M85.80 - Other specified disorders of bone density and structure, unspecified site (ICD-10) Orthostatic hypotension ?I95.1 - Orthostatic hypotension (ICD-10) GERD (gastroesophageal reflux disease) ?K21.9 - Gastro-esophageal reflux disease without esophagitis (ICD-10) Abdominal pain ?R10.9 - Unspecified abdominal pain (ICD-10) DALILA (generalized anxiety disorder) ?F41.1 - Generalized anxiety disorder (ICD-10) Dyslipidemia ?E78.5 - Hyperlipidemia, unspecified (ICD-10) Chronic constipation ?K59.09 - Other constipation (ICD-10) Change in bowel habits ?R19.4 - Change in bowel habit (ICD-10) Cervical disc disease ?M50.90 - Cervical disc disorder, unspecified, unspecified cervical region (ICD-10) Surgical History (Updated 01/14/23 @ 11:40 by Gabi Kim RN) H/O vaginal hysterectomy ?Z90.710 - Acquired absence of both cervix and uterus (ICD-10) H/O dilation and curettage ?Z98.890 - Other specified postprocedural states (ICD-10) Hx of tonsillectomy ?Z90.89 - Acquired absence of other organs (ICD-10) History of adenoidectomy ?Z90.89 - Acquired absence of other organs (ICD-10) History of carpal tunnel release ?Z98.890 - Other specified postprocedural states (ICD-10) Family History (Updated 01/14/23 @ 11:43 by Gabi Kim, JOSÉ ANTONIO) Other Alcoholism Cardiac arrhythmia Heart disease Hypertension Multiple myeloma Pancreatic adenocarcinoma Pancreatic cancer Social History (Updated 01/14/23 @ 11:43 by Gabi Kim, JSOÉ ANTONIO) Within the past year, how often did you have a drink containing alcohol: never Score interpretation: A score less than 3 is consistent with normal alcohol consumption. Smoking status: Never smoker Second hand tobacco smoke exposure: No Non-prescribed substance use: denies use Previous occupational history: [employer] Known occupational exposures/hazards: No Highest level of school completed/degree received: high school graduate Exam Narrative Exam Narrative: This patient is here with her family 68-year-old. She opens eyes to command and moves upon request but she has no spontaneous communication. Vital signs are stable and she is afebrile. Her skin shows no petechia purpura rash or other exanthems. There is no clamminess or diaphoresis. HEENT examination shows no oral infections. She has very little amount of 1+ edema of her upper left eyelid but the conjunctiva is not erythematous. There is no drainage or purulence or discharge. Extraocular muscles are intact pupils are 5 mm reactive bilaterally. She does not complain of any headache or neck pain. There is no evidence of trauma or injury she has been taking care of very very carefully nicely by her family. Her lungs were clear with no wheeze rales or rhonchi respiratory distress. Heart sounds are normal with no S3-S4 or murmur. Twelve-lead EKG did not show any atrial fibrillation, there is no ST segment elevation or malignant arrhythmia. Extremities do not show any evidence of trauma or injury there is no peripheral edema Constitutional Vital Signs, click to edit/add: Last Vital Signs Temp 98.0 F 03/15/24 09:39 Pulse 71 03/15/24 10:40 Resp 15 03/15/24 10:40 BP 97/61 03/15/24 10:30 Pulse Ox 99 03/15/24 10:40 O2 Del Method Room Air 03/15/24 09:39 Course Vital Signs Vital signs: Vital Signs Temperature 98.0 F 03/15/24 09:39 Pulse Rate 82 03/15/24 09:39 Respiratory Rate 20 03/15/24 09:39 Blood Pressure 122/92 H 03/15/24 09:39 Pulse Oximetry 99 03/15/24 09:39 Oxygen Delivery Method Room Air 03/15/24 09:39 Temperature 98.0 F 03/15/24 09:39 Pulse Rate 71 03/15/24 10:40 Respiratory Rate 15 03/15/24 10:40 Blood Pressure 97/61 03/15/24 10:30 Pulse Oximetry 99 03/15/24 10:40 Oxygen Delivery Method Room Air 03/15/24 09:39 MDM - Altered Mental Status MDM Narrative Medical decision making narrative: Or change in status I repeated her CT imaging make sure she does not have a subdural hematoma and the CT study shows no acute findings. Her laboratory studies CBC chemistries and urinalysis are normal. Small amount of ketones in her urine. We did give her the benefit of a liter crystalloid fluid. I spoke with her primary care doctor to arrange follow-up. Right now we do not see an immediate cause of this deterioration which may be her normal pathological process. Lab Data Labs: Lab Results 03/15/24 03/15/24 Range/Units 09:55 10:00 WBC 10.4 (4.0-11.0) 10^3/uL RBC 4.24 (4.20-5.40) 10^6/uL Hgb 12.8 (12.0-16.0) g/dL Hct 37.5 (36.0-48.0) % MCV 88.4 (81.0-99.0) fL MCH 30.2 (26.7-34.0) pg MCHC 34.1 (29.9-35.2) g/dL RDW 12.7 (11.0-15.0) % Plt Count 233 (150-450) 10^3/uL MPV 9.2 L (9.5-13.5) fL Neut % (Auto) 77.7 H (43.0-75.0) % Lymph % (Auto) 14.0 L (20.5-60.0) % [place] % (Auto) 7.3 (1.7-12.0) % Eos % (Auto) 0.3 L (0.9-7.0) % Baso % (Auto) 0.3 (0.2-2.0) % Neut # (Auto) 8.1 H (1.4-6.5) 10^3/uL Lymph # (Auto) 1.5 (1.2-3.8) 10^3/uL [place] # (Auto) 0.8 (0.3-0.8) 10^3/uL Eos # (Auto) 0.0 (0.0-0.7) 10^3/uL Baso # (Auto) 0.0 (0.0-0.1) 10^3/uL Abs Immat Gran (auto) 0.04 H (0.00-0.03) 10^3/uL Imm/Tot Granulo (auto) 0.4 (0.0-0.5) % Sodium 139 (136-145) mmol/L Potassium 4.1 (3.5-5.1) mmol/L Chloride 102 (98-107) mmol/L Carbon Dioxide 30.2 (21.0-32.0) mmol/L Anion Gap 10.9 BUN 15.0 (7.0-18.0) mg/dL Creatinine 0.88 (0.55-1.02) mg/dL Est GFR ( Amer) >60 (>=60 mL/min/1.73m^2) Est GFR (Non-Af Amer) >60 (>=60 mL/min/1.73m^2) BUN/Creatinine Ratio 17.0 Glucose 107 H (74-106) mg/dL Calcium 9.1 (8.5-10.1) mg/dL Total Bilirubin 0.8 (0.2-1.0) mg/dL AST 25 (15-37) U/L ALT 21 (14-59) U/L Alkaline Phosphatase 56 (46-116) U/L Troponin I High Sens 16.9 (4.0-51.3) pg/mL Total Protein 6.8 (6.4-8.2) g/dL Albumin 3.2 L (3.4-5.0) g/dL Globulin 3.6 g/dL Albumin/Globulin Ratio 0.9 Urine Color Dk yellow (YELLOW) Urine Clarity Clear (CLEAR) Urine pH 6.0 (5.0-9.0) Ur Specific [place] 1.025 (1.005-1.025) Urine Protein Trace (NEG/TRACE) mg/dL Urine Glucose (UA) Negative (NEGATIVE) mg/dL Urine Ketones Trace A (NEGATIVE) mg/dL Urine Occult Blood Small A (NEGATIVE) Urine Nitrite Negative (NEGATIVE) Urine Bilirubin Negative (NEGATIVE) Urine Urobilinogen 0.2 (0.2-1.0) EU/dL Ur Leukocyte Esterase Negative (NEGATIVE) Urine RBC 2-5 A (0-2) #/HPF Urine WBC 0-2 A (NONE SEEN) #/HPF Ur Squamous Epith Cells Rare (NONE/RARE) #/LPF Urine Crystals None seen (None Seen) #/HPF Urine Bacteria Trace A (NONE SEEN) #/HPF Urine Casts None seen (NONE SEEN) #/LPF Urine Mucus Trace A (NONE SEEN) Ur Culture Indicated? No Discharge Plan Discharge Chief Complaint: Altered Mental Status Clinical Impression: Dementia Patient Disposition: Home, Self-Care Time of Disposition Decision: 11:03 Prescriptions / Home Meds: No Action meloxicam 7.5 mg tablet 7.5 mg PO DAILY PRN (Reason: pain ) Qty: 10 0RF haloperidol 0.5 mg tablet 1 mg PO DAILY melatonin 10 mg tablet extended release 10 mg PO BEDTIME promethazine 25 mg suppository 25 mg [place] Q6H PRN (Reason: nausea and vomiting) Qty: 6 0RF ondansetron 4 mg tablet,disintegrating 4 mg PO Q4H PRN (Reason: nausea and vomiting) 3 Days Qty: 6 0RF diazepam [Valium] 2 mg tablet 2 mg PO TID-QID PRN (Reason: muscle spasm) 10 Days Qty: 10 0RF Rx Instructions: As needed for anxiety, insomnia, nausea and vomiting, muscle spasm mirtazapine 7.5 mg tablet 7.5 mg PO .QHS hydroxyzine HCl 25 mg tablet 25 mg PO Q8H PRN (Reason: anxiety) Print Language: Micronesian Additional Instructions: Encourage plenty of fluids to prevent dehydration. Return if any other immediate change, follow-up with primary care doctor Referrals: Remigio Hoyos MD [Primary Care Provider] - 1 week
[2024-03-15 10:11] LABS: Basophils Percent Auto 0.3 % (0.2-2.0); Eosinophils Percent Auto 0.3 % (0.9-7.0); Hematocrit 37.5 % (36.0-48.0); Hemoglobin 12.8 g/dL (12.0-16.0); Immature Granulocytes Abs Auto 0.04 10^3/uL (0.00-0.03); Immature Granulocytes Pct Auto 0.4 % (0.0-0.5); Lymphocytes Absolute Auto 1.5 10^3/uL (1.2-3.8); Mean Corpuscular HGB Conc 34.1 g/dL (29.9-35.2); Mean Corpuscular Hemoglobin 30.2 pg (26.7-34.0); Mean Corpuscular Volume 88.4 fL (81.0-99.0); Mean Platelet Volume 9.2 fL (9.5-13.5); Monocytes Absolute Auto 0.8 10^3/uL (0.3-0.8); Monocytes Percent Auto 7.3 % (1.7-12.0); Neutrophils Absolute Auto 8.1 10^3/uL (1.4-6.5); Neutrophils Percent Auto 77.7 % (43.0-75.0); Platelet Count 233 10^3/uL (150-450); Red Blood Count 4.24 10^6/uL (4.20-5.40); Red Cell Distribution Width 12.7 % (11.0-15.0); White Blood Count 10.4 10^3/uL (4.0-11.0)
--- NOTE | 2024-03-15 10:15 | PC.NURSE ---
Patient sitting up in wheelchair with eyes closed, answers questions but does not open eyes. Pivot transfer into bed with staff assist.
--- OUTSIDE RECORDS SUMMARY | 2024-03-15 10:18 | XMS_ITS | CCD ---
Author Organization [facility] Care Team Providers Care [employer] Supervisor Name Role Phone CALVIN, DR REMIGIO Richardson [...] Orta Attending DO Robert Oliver Emergency Provider [phone] MD Remigio Simpson Primary Care Provider MD Sridhar Hoffman Admit Provider [phone] MD Sridhar Hoffman Attending Provider Remigio Simpson MD Primary Care Provider MD Remigio Simpson Primary Care Provider DO Good Garcia Emergency Provider [phone] MD Sridhar Hoffman Admit Provider [phone] MD Yoly Hoffmanyemi Attending Provider [phone] Sridhar Hoffman Admitting Unavailable Lionel Still Attending Unavailab Remigio Douglas Primary Care Unavailable Rei Cobos Admitting Unavailab Rei Dumont Attending Unavailab Remigio Douglas Primary Care Unavailable Lionel Still Admitting Unavailab Lionel Saini Attending Unavailab Remigio Douglas Primary Care Unavailable Remigio Simpson Primary Care Unavailable Sridhar Hoffman Admitting Unavailable Sridhar Hoffman Attending Unavailable REMIGIO SIMPSON Attending Unavailable SHAIKH SALCEDO Attending Unavailable MARIE, HERSON Richardson Attending Unavailable CHANDRIKA, REI Attending Unavailable CHANDRIKA, REI Referring Unavailable MONICA SILVER Attending Unavailable CHANDRIKA, REI Referring Unavailable CHANDRIKA, REI Attending Unavailable MARIE, HERSON Richardson Attending Unavailable CALVIN, REMIGIO Attending Unavailable CHANDRIKA, REI Attending Unavailable MARIE, HERSON Richardson Attending Unavailable Remigio Simpson MD Primary Care Provider Allergies Allergy Classification Reported Allergen(s) Allergy Type Date of Onset Reaction(s) Facility (4 sources) Alprazolam Propensity to adverse reactions 4 Hallucinations, Unknown [facility] Medications Current Medications Medication Drug Class(es) Dates Sig (Normalized) Sig (Original) diazePAM 2 mg oral tablet (3 sources) Benzodiazepine Start: 02-17-2024 End: 02-27-2024 take 1 tablet by mouth four times daily as needed for anxiety diazePAM (Valium) 2 MG tablet Indications: DALILA (generalized anxiety disorder) ([facility]) Take 1 tablet (2 mg) by mouth 4 (four) times a day as needed for anxiety for up to 10 days 40 tablet 02/17/2024 Active docusate sodium 50 mg / sennosides, prison 8.6 mg oral tablet (4 sources) take 1 tablet by mouth once daily senna-docusate sodium (Senokot-S) 8.6-50 MG tablet Take 1 tablet by mouth Daily Active haloperidol 1 mg oral tablet (10 sources) Typical Antipsychotic Start: 01-11-2024 haloperidol (Haldol) 1 MG tablet Indications: Rapidly progressive dementia (CMS/HCC) TAKE 1/2 TABLET (0.5MG) IN THE MORNING AND TAKE 1 TABLET (1MG) AT SUPPER 30 tablet 1 01/11/2024 Active Start: 09-22-2023 take 0.5 mg by mouth [...] 5pm hydrOXYzine hydrochloride 25 mg oral tablet (8 sources) Antihistamine Start: 02-14-2024 take 1 tablet by mouth four times daily as needed for anxiety hydrOXYzine HCl (Atarax) 25 MG tablet Indications: DALILA (generalized anxiety disorder) (CMS/HCC) TAKE 1 TABLET (25 MG) BY MOUTH 4 (FOUR) TIMES A DAY NEEDED FOR ANXIETY 360 tablet 2 02/14/2024 Active Start: 09-14-2023 take 25 mg by mouth twice nimo y Hydroxyzine Hcl Active 25 MG PO Twice [...] 05/25/2023 Active lactulose 667 mg/ml oral solution (5 sources) Osmotic Laxative Start: 12-16-2023 take 10 g by mouth at bedtime lactulose (Chronulac) 10 GM/15ML solution Take 10 g by mouth at bedtime 12/16/2023 Active Start: 09-15-2023 take 1 mL by mouth twice daily Lactulose Active 30 ML PO Twice daily September 15, 2023 12:00am melatonin 10 mg oral capsule (6 sources) Start: 12-07-2023 take 1 capsule by mouth at bedtime Melatonin 10 MG capsule Indications: Primary insomnia Take 10 mg by mouth at bedtime 30 capsule 5 12/07/2023 Active Start: 09-14-2023 take 10 mg by mouth once daily at bedtime Melatonin Active 10 MG PO Daily at bedtime September 14, 2023 12:00am mirtazapine 15 mg oral tablet (11 sources) Start: 02-28-2024 take 1 tablet by mouth at bedtime mirtazapine (Remeron) 15 MG tablet Indications: MDD (major depressive disorder), recurrent episode, mild (HCC) (CMS/HCC) TAKE 1 TABLET BY MOUTH AT BEDTIME 90 tablet 2 02/28/2024 Active Start: 10-25-2023 take 1 tablet by palmer th at bedtime mirtazapine (Remeron) 15 MG tablet Indications: MDD (major depressive disorder), recurrent episode, mild (HCC) (CMS/HCC) Take 1 tablet (15 mg) by mouth at bedtime 30 tablet 5 10/25/2023 Active Start: 06-08-2023 End: 06-29-2023 take 7.5 mg by mouth once daily at bedtime Mirtazapine Active 7.5 MG PO Daily at bedtime 30 June 08, 2023 1:00am morphine sulfate 20 mg/ml oral solution (6 sources) Opioid Agonist Start: 09-14-2023 Morphine Orin ntrate Active 5 MG PO EVERY 1-2 HOURS September 14, 2023 12:00am Start: 07-24-2023 morphine 100 M G/5ML concentrated solution every 1 (one) hour if needed 07/24/2023 Active ondansetron 4 mg disintegrating oral tablet (3 [...] Start: 09-14-2023 take 1 capsule by mo uth twice daily Sennosides (Senna) 8.6 mg capsule [...] Generalized abdominal pain 01-04-2023 Episodic Anxiety disorders (16 sources) Generalized anxiety disorder; Translations: [Anxiety] Onset: 3 01-04-2023 Chronic Cardiac dysrhythmias (8 sources) Paroxysmal supraventricular tachycardia; Translations: [Paroxysmal supraventricular tachycardia] Onset: 2 01-04-2023 Chronic Delirium, dementia, and amnestic and other cognitive disorders (11 sources) Dementia; Translations: [Unspecified dementia without behavioral disturbance] Onset: 4 06-01-2023 Chronic Diabetes mellitus without complication (5 sources) Impaired fasting glucose; Translations: [Impaired fasting glycemia] Onset: 3 Episodic Disorders of lipid metabolism (9 sources) Hyperlipidemia, unspecified; Translations: [Dyslipidemia] Onset: 3 01-04-2023 Chronic Esophageal disorders (1 source) Gastroesophageal reflux disease 01-04-2023 Chronic Comment on above: diet controlled Genitourinary symptoms and ill-defined conditions (2 sources) Dysuria; Translations: [Dysuria] 06-30-2023 Episodic Miscellaneous mental health disorders (4 sources) Primary insomnia; Translations: [Primary insomnia] Onset: 4 10-13-2023 Chronic Mood disorders (13 sources) Depressive disorder; Translations: [Depression] Onset: 4 05-25-2023 Chronic Mood disorders (2 sources) Mood disorders; Translations: [Depression, unspecified] Onset: 4 Nutritional deficiencies (4 sources) Moderate protein energy malnutrition; Translations: [Moderate protein-calorie malnutrition] Onset: 4 09-07-2023 Chronic Osteoarthritis (5 sources) Primary gonarthrosis, bilateral; Translations: [Bilateral primary osteoarthritis of knee] Onset: 4 12-24-2023 Chronic Other aftercare (1 source) Other fci (current) drug therapy; Translations: [OTH METALLURGICAL ANALYST CURRENT DRUG THERAPY] Onset: 3 Episodic Other bone disease and musculoskeletal deformities (1 source) Osteopenia 01-04-2023 Episodic Other gastrointestinal disorders (5 sources) Other constipation; Translations: [OTHER CONSTIPATION] Onset: 3 Episodic Other gastrointestinal disorders (2 sources) Altered bowel function; Translations: [Change in bowel habit] Onset: 3 Episodic Other hereditary and degenerative nervous system conditions (7 sources) Mild cognitive disorder ; Translations: [Mild cognitive impairment, so stated] Onset: 4 06-09-2023 Chronic Other nervous system disorders (4 sources) Walking disability; Translations: [Difficulty in walking, not elsewhere classified] Onset: 4 07-19-2023 Chronic Other nervous system disorders (4 sources) Abnormal gait; Translations: [Unsteadiness on feet] Onset: 4 12-24-2023 Episodic Other nutritional; endocrine; and metabolic disorders [...] Spondylosis; intervertebral disc disorders; other back problems (8 sources) Cervical disc disorder; Translations: [Degeneration of cervical intervertebral disc] Onset: 4 01-04-2023 Chronic Suicide and intentional self-inflicted injury (6 sources) Suicidal thoughts; Translations: [Suicidal ideations] 05-25-2023 Episodic Unclassified (3 sources) CONTACT W/AND (SUSP) EXPOS COVID-19; Translations: [CONTACT W/AND (SUSP) EXPOS COVID-19] Onset: 2 Past or Other Problems Problem Classification Problem Date Documented Da te Episodic/Chronic Conditions associated with dizziness or vertigo (16 sources) Dizziness and giddiness; Translations: [Benign paroxysmal positional vertigo] Onset: 09-16-2022 12-31-2022 Episodic Malaise and fatigue (8 sources) Other fatigue; Translations: [Asthenia] Onset: 09-16-2022 06-09-2023 Episodic Other aftercare (7 sources) Patient encounter status; Translations: [Other termite helper (current) drug therapy] Onset: 05-11-2023 05-11-2023 Episodic Other aftercare (4 sources) Long-term current use of drug therapy; Translations: [Other fci (current) drug therapy] Onset: 05-11-2023 05-11-2023 Episodic Other circulatory disease (8 sources) Orthostatic hypotension; Translations: [Orthostatic hypotension] Onset: 05-28-2023 01-04-2023 Episodic Other connective tissue disease (7 sources) Bursitis of olecranon of right elbow; Translations: [Olecranon bursitis, right elbow] Onset: 05-28-2023 05-28-2023 Episodic Other gastrointestinal disorders (8 sources) Chronic constipation; Translations: [Other constipation] Onset: 05-28-2023 01-04-2023 Episodic Other infections; including parasitic (4 sources) Personal history of other infectious and parasitic diseases; Translations: [Personal history of COVID-19] Onset: 07-24-2023 08-19-2023 Episodic Other lower respiratory disease (4 sources) Dyspnea; Translations: [Dyspnea, unspecified] Onset: 09-07-2023 09-07-2023 Episodic Other nervous system disorders (8 sources) Carpal tunnel syndrome; Translations: [Carpal tunnel syndrome, unspecified upper limb] Onset: 05-28-2023 Resolved: 12-24-2023 06-15-2014 Chronic Other nervous system disorders (4 sources) Metabolic encephalopathy; Translations: [Metabolic encephalopathy] Onset: 07-24-2023 Resolved: 12-24-2023 12-24-2023 Chronic Other nervous system disorders (4 sources) Impairment of balance; Translations: [Other abnormalities of gait and mobility] Onset: 09-07-2023 09-07-2023 Episodic Other non-traumatic joint disorders (4 sources) Pain in right elbow; Translations: [PAIN IN RIGHT ELBOW] Onset: 03-12-2022 Episodic Residual codes; unclassified (2 sources) Disorientation, unspecified; Translations: [Unspecified psychosis] Onset: 05-25-2023 05-25-2023 Episodic Residual codes; unclassified (4 sources) Family history of stroke; Translations: [Family history of stroke] Onset: 09-07-2023 09-07-2023 Episodic Spondylosis; intervertebral disc disorders; other back problems (8 sources) Neck pain; Translations: [Cervicalgia] Onset: 12-31-2022 Resolved: 12-24-2023 06-29-2023 Episodic Unclassified (1 source) CONTACT W/AND (SUSP) EXPOS COVID-19; Translations: [CONTACT W/AND (SUSP) EXPOS COVID-19] Onset: 11-04-2021 Unclassified (1 source) Entire carpal canal (body structure) 01-04-2023 Comment on above: had left done Urinary tract infections (8 sources) Recurrent urinary tract infection; Translations: [Urinary tract infection, site not specified] Onset: 06-29-2023 06-29-2023 Episodic Results Test Name Value Interpretation Reference Range [...] RESISTANT TO ALL B-LACTAM DRUGS. PERFORMED BY: [place] [address] PATHOLOGIST MANAGER RISK ELE SPRING M.D. Normal [facility] Comment on above: Performed By: #### C SFCCDIFF, CSF GLU, AERC, GS, CSF TP, CSF PCR PANEL #### [place] [address] [place] Autoimmune Encephalitis Prof on 09-30-2023 Autoimmune Encephalitis Prof Normal [facility] Comment on above: Result Comment: See report. Scanned copy available in EMR. PERFORMED BY: [place] [address] PATHOLOGIST MANAGER RISK ELE SPRING M.D. Performed By: #### C SFCCDIFF, CSF GLU, AERC, GS, CSF TP, CSF PCR PANEL #### [address] CSF Creutzfeldt-Loy Diseas josr 09-30-2023 Creutzfeldt-Loy Disease Normal Negative [facility] Comment on above: Order Comment: Comme nt tube 3 Result Comment: See report. Scanned copy available in EMR. Performed By: #### C SFCCDIFF, CSF GLU, AERC, GS, CSF TP, CSF PCR PANEL #### [address] CSF Specimen Status Normal . [facility] Comment on above: Order Comment: Comme nt tube 3 Result Comment: Jacques howard lab report sent via fax. Performed at: [facility] Prion Disease Path Surv [address] [facility] Room [address] [place] [id number] [employer] Manager: Christy Fernandez PhD, Phone: [phone] PERFORMED BY: [place] [address] PATHOLOGIST MANAGER RISK ELE SPRING M.D. Performed By: #### C SFCCDIFF, CSF GLU, AERC, GS, CSF TP, CSF PCR PANEL #### [address] CSF PCR Panelon 09-30-2023 CSF PCR [...] Varicella zoster virus Not detected PERFORMED BY: [place] [address] PATHOLOGIST MANAGER RISK ELE SPRING M.D. Normal [facility] Comment on above: Performed By: #### C SFCCDIFF, CSF GLU, AERC, GS, CSF TP, CSF PCR PANEL #### [address] Cell Count Differential,CSFo n 09-30-2023 Appearance, CSF Cloudy Critically abnormal Clear [facility] Comment on above: Order Comment: Comme nt tube 1 Performed By: #### C SFCCDIFF, CSF GLU, AERC, GS, CSF TP, CSF PCR PANEL #### [address] Color, CSF Lyden Critically abnormal Colorless [facility] Comment on above: Order Comment: Comme nt tube 1 Performed By: #### C SFCCDIFF, CSF GLU, AERC, GS, CSF TP, CSF PCR PANEL #### [address] CSF Supernatant Color Colorless Normal Colorless [facility] Comment on above: Order Comment: Comme nt tube 1 Performed By: #### C SFCCDIFF, CSF GLU, AERC, GS, CSF TP, CSF PCR PANEL #### [address] CSF Volume, Total 11.7 mL Normal [facility] Comment on above: Order Comment: Comme nt tube 1 Performed By: #### C SFCCDIFF, CSF GLU, AERC, GS, CSF TP, CSF PCR PANEL #### [address] Lymphocytes, CSF 17 Normal [facility] Comment on above: Order Comment: Comme nt tube 1 Result Comment: The reference interval and other method performance specifications have not been established for this body fluid. The test result must be integrated into the clinical context for interpretation. Performed By: #### C SFCCDIFF, CSF GLU, AERC, GS, CSF TP, CSF PCR PANEL #### [address] Monocytes, CSF 4 Normal [facility] Comment on above: Order Comment: Comme nt tube 1 Result Comment: The reference interval and other method performance specifications have not been established for this body fluid. The test result must be integrated into the clinical context for interpretation. Performed By: #### C SFCCDIFF, CSF GLU, AERC, GS, CSF TP, CSF PCR PANEL #### [address] Neutrophils, CSF 29 Normal [facility] Comment on above: Order Comment: Comme nt tube 1 Result Comment: The reference interval and other method performance specifications have not been established for this body fluid. The test result must be integrated into the clinical context for interpretation. Performed By: #### C SFCCDIFF, CSF GLU, AERC, GS, CSF TP, CSF PCR PANEL #### [address] RBC, CSF 3534 Normal [facility] Comment on above: Order Comment: Comme nt tube 1 Result Comment: The reference interval and other method performance specifications have not been established for this body fluid. The test result must be integrated into the clinical context for interpretation. Performed By: #### C SFCCDIFF, CSF GLU, AERC, GS, CSF TP, CSF PCR PANEL #### [address] TNC, CSF 2 /uL Normal 0-5 [facility] Comment on above: Order Comment: Comme nt tube 1 Performed By: #### C SFCCDIFF, CSF GLU, AERC, GS, CSF TP, CSF PCR PANEL #### [address] Total Count, CSF 50 Normal [facility] Comment on above: Order Comment: Comme nt tube 1 Performed By: #### C SFCCDIFF, CSF GLU, AERC, GS, CSF TP, CSF PCR PANEL #### [address] Tube Number Tested, CSF Tube Number: 1 Normal [facility] Comment on above: Order Comment: Comme nt tube 1 Result Comment: PERF ORMED BY: [place] [address] PATHOLOGIST MANAGER RISK ELE SPRING M.D. Performed By: #### C SFCCDIFF, CSF GLU, AERC, GS, CSF TP, CSF PCR PANEL #### [address] Cell Count Differential,CSF #2on 09-30-2023 Appearance, CSF Clear Normal Clear [facility] Comment on above: Order Comment: Comme nt tube 4 Performed By: #### U HCG, URDS #### [address] Color, CSF Colorless Normal Colorless [facility] Comment on above: Order Comment: Comme nt tube 4 Performed By: #### U HCG, URDS #### [address] CSF Supernatant Color Colorless Normal Colorless [facility] Comment on above: Order Comment: Comme nt tube 4 Performed By: #### U HCG, URDS #### [address] CSF Volume, Total 11.7 mL Normal [facility] Comment on above: Order Comment: Comme nt tube 4 Performed By: #### U HCG, URDS #### [address] Lymphocytes, CSF 2 Normal [facility] Comment on above: Order Comment: Comme nt tube 4 Result Comment: The reference interval and other method performance specifications have not been established for this body fluid. The test result must be integrated into the clinical context for interpretation. Performed By: #### U HCG, URDS #### [address] Monocytes, CSF 2 Normal [facility] Comment on above: Order Comment: Comme nt tube 4 Result Comment: The reference interval and other method performance specifications have not been established for this body fluid. The test result must be integrated into the clinical context for interpretation. Performed By: #### U HCG, URDS #### [address] Neutrophils, CSF 4 Normal [facility] Comment on above: Order Comment: Comme nt tube 4 Result Comment: The reference interval and other method performance specifications have not been established for this body fluid. The test result must be integrated into the clinical context for interpretation. Performed By: #### U HCG, URDS #### [address] RBC, CSF 130 /uL Normal [facility] Comment on above: Order Comment: Comme nt tube 4 Result Comment: The reference interval and other method performance specifications have not been established for this body fluid. The test result must be integrated into the clinical context for interpretation. Performed By: #### U HCG, URDS #### [address] TNC, CSF 1 /uL Normal 0-5 [facility] Comment on above: Order Comment: Comme nt tube 4 Performed By: #### U HCG, URDS #### [place] [address] [place] Total Count, CSF 8 Normal [facility] Comment on above: Order Comment: Comme nt tube 4 Performed By: #### U HCG, URDS #### [address] Tube Number Tested, CSF Tube Number: 4 Normal [facility] Comment on above: Order Comment: Comme nt tube 4 Result Comment: PERF ORMED BY: [place] [address] PATHOLOGIST MANAGER RISK ELE SPRING M.D. Performed By: #### U HCG, URDS #### [address] Glucose, Spinal Fluidon 05- Glucose, Spinal Fluid 63 mg/dL Normal 40-70 [facility] Comment on above: Order Comment: Comme nt tube 3 Performed By: #### C SFCCDIFF, CSF GLU, AERC, GS, CSF TP, CSF PCR PANEL #### [facility] [address] [place], [place] [id number] [place] Gram Stainon 09-30-2023 Microscopic observation Gram stain Nom (Unsp spec) Comment tube 2 aerobic and anaerobic Gram Stain Result No Bacteria Seen No White Blood Cells Seen PERFORMED BY: [place] [address] PATHOLOGIST MANAGER RISK ELE SPRING M.D. Normal [facility] Comment on above: Performed By: #### C SFCCDIFF, CSF GLU, AERC, GS, CSF TP, CSF PCR PANEL #### [address] IR guided lumbar puncture LP on 09-30-2023 IR guided lumbar puncture LP [facility] [place] [address] [place] [address] Interventional Radiology Rpt Signed Patient: Donnie Bullock MR#: [id number] [birth year] : 1955 Acct:[id number] Age/Sex: 67 / F ADM Date: 09/30/23 Loc: XD Room: Type: [facility] Attending Dr: Rei Cobos DO Copies to: Rei Cobos DO Ordering Provider: Rei Cobos DO Date of Service: 09/30/23 IR/IR guided lumbar puncture LP: RAPIDLY PROGRESSIVE DEMENTIA IR guided lumbar puncture LP 09/30/2023 7:28 AM SIGNS AND SYMPTOMS: 0.52 [id number] RAPIDLY PROGRESSIVE DEMENTIA INFORMED CONSENT: Reason for [...] Elvis Mae M.D.09/30/2023 1:23 PM Dictation Location: [place] [address] Transcribed By: LESVIA 09/30/231322 Dictated By: Elvis Mae II, MD 09/30/231320 Signed By: 09/30/231322 Normal [facility] Arjun 09-30-2023 L Specimen: [id number] Received: 09/30/23 Status: ZACK Sweeney Num: [id number] Spec Type: Cytology Subm Dr: Rei Cobos DO Tissues: A CSF (CSF) Procedures: Cyto Prepstain, DIFF QWIK, PAPSTN Age/ Patient Sex Location Account Attending Physician Donnie Bullock 67/F XD [id number] Rei Cobos DO SPEC NUM: [id number] RECD: 09/30/23 STATUS: ZACK SWEENEY NUM: [id number] JAY: 09/30/[address]: Rei Cobos DO ENTERED: 09/30/[address] [facility] [address]: SPEC TYPE: Cytology DEPT: CNG ENTERED BY: [id number] RECV BY: [id number] ORDERED: Cyto Prepstain, DIFF QWIK, PAPSTN ORDERED: [...] cytospin slides are prepared. (CC/nh) CPT Codes 66140 -------- -------- Specimen: [id number] Received: 09/30/23-132 Status: ZACK Sweeney Num: [id number] Spec Type: Cytology Subm Dr: Rei Cobos DO Tissues: A CSF (CSF) Procedures: Cyto Prepstain, DIFF QWIK, PAPSTN -------- Patient: Donnie Bullock [id number] (Continued) -------- Signed (signature on file) Bradly Marie MD 10/03/23 1429 Normal [facility] Total Protein, Spinal Fluido n 09-30-2023 Total Protein, Spinal Fluid 35 mg/dL Normal 15-45 [facility] Comment on above: Order Comment: Dl nt tube 3 Result Comment: PERF ORMED BY: [place] [address] PATHOLOGIST MANAGER RISK ELE SPRING M.D. Performed By: #### C SFCCDIFF, CSF GLU, AERC, GS, CSF TP, CSF PCR PANEL #### [facility] [address] [place] [id number] [place] Cholesterol [Mass/volume] in Serum or PlasmaOrdered By: Sridhar Hoffman on 09-15-2023 Cholesterol [Mass/Vol] 205 mg/dL High 140-200 [facility] Comment on above: Chol less than 200 m g/dl low riskChol 201-239 mg/dl borderline riskChol 240 mg/dl and greater high risk Result Comment: Chol less than 200 mg/dl low risk Chol 201-239 mg/dl borderline risk Chol 240 mg/dl and greater high risk Performed By: #### U HCG, URDS #### [facility] [address] [place] [id number] [facility] Cholesterol in LDL Calc [Mas s/Vol]Ordered By: Sridhar Hoffman on 09-15-2023 Cholesterol in LDL [Mass/Vol] 122 mg/dL 0-100 [facility] Comment on above: LDL ATP III CLASSIFI CATIONLDL less than 100 mg/dL OptimalLDL 100-129 mg/dL Near or above optimalLDL 130-159 mg/dL Borderline highLDL 160-189 mg/dL HighLDL greater than 189 mg/dL Very high Cholesterol in VLDL Calc [Ma ss/Vol]Ordered By: Sridhar Hoffman on 09-15-2023 Cholesterol in VLDL [Mass/Vol] 20 mg/dL [facility] ECG 12 lead ECGon 09-15-2023 ECG 12 lead ECG [facility] [place] [address] [place] [address] Electrocardiograph Report Signed Patient: Donnie Bullock MR#: [id number] [birth year] : 1955 Acct:[id number] Age/Sex: 67 / F ADM Date: 09/14/23 Loc: Room: [address] [place] [address] Type: ADM IN Attending Dr: Sridhar Hoffman [...] change was found Confirmed by YOLA ROGERS FACC, DESTINEE ([id number]) on 09/15/2023 3:08:00 PM Referred By: Electronically Signed By:DESTINEE YORK MD FAC Transcribed By: MUS Signed By Destinee York MD, FACC 09/15/23 1508 Normal [facility] Lipid Panelon 09-15-2023 LDL Cholesterol,Calculated 122 mg/dL High 0-100 [facility] Comment on above: Result Comment: LDL ATP III CLASSIFICATION LDL less than 100 mg/dL Optimal LDL 100-129 mg/dL Near or above optimal LDL 130-159 mg/dL Borderline high LDL 160-189 mg/dL High LDL greater than 189 mg/dL Very high Performed By: #### U HCG, URDS #### [address] Triglyceride w/Reflex 103 mg/dL Normal 0-149 [facility] Comment on above: Result Comment: TRIG ATP III CLASSIFICATION TRIG less than 150 mg/dL Normal TRIG 150-199 mg/dL Borderline high TRIG 200-500 mg/dL High TRIG greater than 500 mg/dL Very high Standard traceable to the Center for Disease Conrtrol and Prevention (CDC) test method. Performed By: #### U HCG, URDS #### [facility] [address] [place] [id number] [facility] VLDL CHOLESTEROL 20 mg/dL Normal [facility] Comment on above: Performed By: #### U HCG, URDS #### [facility] [address] Serum or plasma high density lipoprotein (HDL) cholesterol measurementOrdered By: Sridhar Hoffman on 09-15-2023 Cholesterol in HDL [Mass/Vol] 62 mg/dL Normal 23-92 [facility] Comment on above: HDL CHOL ATP-III CLA SSIFICATION Cardiovascular RiskHDL > or equal to 60 mg/dL LOWHDL < 40 mg/dL HIGH Result Comment: HDL CHOL ATP-III CLASSIFICATION Cardiovascular Risk HDL > or equal to 60 mg/dL LOW HDL < 40 mg/dL HIGH Performed By: #### U HCG, URDS #### [facility] [address] Serum or plasma total choles terol/high density lipoprotein (HDL) cholesterol mass ratOrdered By: Sridhar Hoffman on 09-15-2023 Cholesterol.total/Mandie sterol in HDL [Mass ratio] 3.3 {ratio} Normal <5.0 [facility] Comment on above: Performed By: #### U HCG, URDS #### [facility] [address] Thyroid Stim Hormone w/Rflxo n 09-15-2023 Thyroid Stim Hormone w/Rflx 3.99 u[iU]/mL Normal 0.45-5.33 [facility] Comment on above: Performed By: #### U HCG, URDS #### [facility] [address] [place] [address] Thyrotropin [Units/volume] i n Serum or PlasmaOrdered By: Sridhar Hoffman on 09-15-2023 TSH Qn 3.99 m[IU]/L 0.45-5.33 [facility] Triglyceride [Mass/volume] i n Serum or PlasmaOrdered By: Sridhar Hoffman on 09-15-2023 Triglyceride [Mass/Vol] 103 mg/dL 0-149 [facility] Comment on above: TRIG ATP III CLASSIF ICATIONTRIG less than 150 mg/dL NormalTRIG 150-199 mg/dL Borderline highTRIG 200-500 mg/dL High TRIG greater than 500 mg/dL Very highStandard traceable to the Center for Disease Conrtrol and Prevention (CDC) test method. Vitamin D 25 Hydroxy Totalon 09-15-2023 Vitamin D 25 Hydroxy Total 22.0 ng/mL Low 30-100 [facility] Comment on above: Result Comment: HUSAM MIN D STATUS 25(OH)VITAMIN D RANGE (ng/mL) Deficient <20 Insufficient 20 to <30 Sufficient 30 to 100 Reference: Monica Cantu, Fabrizio HA, et al. Evaluation,treatment, and prevention of vitamin D deficiency; an Endocrine Society clinical practice guideline. JCEM. 2010; 96(7):1911-. PERFORMED BY: [place] [address] PATHOLOGIST MANAGER RISK ELE SPRING M.D. Performed By: #### U HCG, URDS #### [address] Vitamin D+Metabolites [Mass/ volume] in Serum or PlasmaOrdered By: Sridhar Hoffman on 09-15-2023 Vitamin D+Metabolites [Mass/Vol] 22.0 ng/mL 30-100 [facility] Comment on above: VITAMIN D STATUS 25( OH)VITAMIN D RANGE (ng/mL) Deficient <20 Insufficient 20 to <30Sufficient 30 to 100Reference: Monica Cantu, Fabrizio HA, et al. Evaluation,treatment, and prevention of vitamin D deficiency; an Endocrine Society clinical practice guideline. JCEM. 2010; 96(7):1911-30. Alanine aminotransferase [En zymatic activity/volume] in Serum or PlasmaOrdered By: Good Garcia on 09-14-2023 ALT [Catalytic activity/Vol] 20 U/L Normal 7-52 [facility] Comment on above: Performed By: #### U HCG, URDS #### [facility] [address] [place] [address] [place] Albumin [Mass/volume] in Ser um or Plasma by Bromocresol green (BCG) dye binding methoOrdered By: Good Garcia on 09-14-2023 Albumin BCG dye [Mass/Vol] 4.0 g/dL 3.5-5.7 [facility] Alkaline phosphatase [Enzyma tic activity/volume] in Serum or PlasmaOrdered By: Good Garcia on 09-14-2023 ALP [Catalytic activity/Vol] 43 U/L Normal 34-104 [facility] Comment on above: Performed By: #### U HCG, URDS #### [address] Amphetamine Screen Ql (U)Ord ered By: Good Garcia on 09-14-2023 Amphetamines Ql (U) Negative Negative [facility] Aspartate aminotransferase [ Enzymatic activity/volume] in Serum or PlasmaOrdered By: Good Garcia on 09-14-2023 AST [Catalytic activity/Vol] 18 U/L Normal 13-39 [facility] Comment on above: Performed By: #### U HCG, URDS #### [address] Automated basophil %Ordered By: Good Garcia on 09-14-2023 Basophils/100 WBC (Bld) 0.6 % Normal . [facility] Comment on above: Performed By: #### U HCG, URDS #### [address] Automated basophil countOrde red By: Good Garcia on 09-14-2023 Basophils (Bld) [#/Vol] 0.0 10*3/uL Normal 0.0-0.2 [facility] Comment on above: Result Comment: PERF ORMED BY: [place] [address] PATHOLOGIST MANAGER RISK ELE SPRING M.D. Performed By: #### U HCG, URDS #### [facility] [address] [place] [address] Automated blood monocyte cou ntOrdered By: Good Garcia on 09-14-2023 Monocytes (Bld) [#/Vol] 0.4 10*3/uL Normal 0.0-0.8 [facility] Comment on above: Performed By: #### U HCG, URDS #### [address] Automated eosinophil %Ordere d By: Good Garcia on 09-14-2023 Eosinophils/100 WBC (Bld) 1.0 % Normal . [facility] Comment on above: Performed By: #### U HCG, URDS #### [facility] [address] Automated eosinophil countOr dered By: Good Garcia on 09-14-2023 Eosinophils (Bld) [#/Vol] 0.1 10*3/uL Normal 0.0-0.45 [facility] Comment on above: Performed By: #### U HCG, URDS #### [facility] [address] [place] [address] Automated monocyte %Ordered By: Good Garcia on 09-14-2023 Monocytes/100 WBC (Bld) 7.5 % Normal . [facility] Comment on above: Performed By: #### U HCG, URDS #### [address] Automated neutrophil %Ordere d By: Good Garcia on 09-14-2023 Neutrophils/100 WBC (Bld) 59.4 % Normal . [facility] Comment on above: Performed By: #### U HCG, URDS #### [address] Automated urine color determ inationOrdered By: Good Garcia on 09-14-2023 Color (U) Yellow Normal Yellow [facility] Comment on above: Order Comment: Name Collection Type:: Clean-Voided Midstream Performed By: #### U HCG, URDS #### [facility] [address] [place] [address] Barbiturates [Presence] in U rine by Screen methodOrdered By: Good Garcia on 09-14-2023 Barbiturates Screen Ql (U) Negative Negative [facility] Benzodiazepines Screen Ql (U )Ordered By: Good Garcia on 09-14-2023 Benzodiazepines Ql (U) Negative Negative [facility] Benzoylecgonine [Presence] i n Urine by Screen methodOrdered By: Good Garcia on 09-14-2023 Benzoylecgonine Screen Ql (U) Negative Negative [facility] Bilirubin Test strip Ql (U)O rdered By: Good Garcia on 09-14-2023 Bilirubin Ql (U) Negative Negative [facility] Bilirubin.total [Mass/volume ] in Serum or PlasmaOrdered By: Good Garcia on 09-14-2023 Bilirubin [Mass/Vol] 0.4 mg/dL Normal 0.3-1.0 [facility] Comment on above: Performed By: #### U HCG, URDS #### [facility] [address] [place] [address] Calcium [Mass/volume] in Ser um or PlasmaOrdered By: Good Garcia on 09-14-2023 Calcium [Mass/Vol] 9.8 mg/dL Normal 8.6-10.3 [facility] Comment on above: Performed By: #### U HCG, URDS #### [facility] [address] Cannabinoids [Presence] in U rine by Screen methodOrdered By: Good Garcia on 09-14-2023 Cannabinoids Screen Ql (U) Negative Negative [facility] Comment on above: These are unconfirme d results and should not be used for legal purposes. Drug Cut-Off Concentration: AMPH 1000 ng/mL GABRIELA 200 ng/mL SIVA 200 ng/mL COCM 300 ng/mL OP 300 ng/mL PCP 25 ng/mL THC 20 ng/mL Carbon dioxide, total [Moles /volume] in Serum or PlasmaOrdered By: Good Garcia on 09-14-2023 CO2 [Moles/Vol] 31.2 mmol/L High 21.0-31.0 [facility] Comment on above: Performed By: #### U HCG, URDS #### [facility] [address] [place] [address] [place] Chloride [Moles/volume] in S anupam or PlasmaOrdered By: Good Garcia on 09-14-2023 Chloride [Moles/Vol] 103 mmol/L Normal 98-107 [facility] Comment on above: Performed By: #### U HCG, URDS #### [facility] [address] [place], [place] [id number] [facility] Complete Blood Count Auto Di ffon 09-14-2023 Mean Corpuscular HGB Conc 34.0 g/dL Normal 32.0-35.0 [facility] Comment on above: Performed By: #### U HCG, URDS #### [facility] [address] Monocytes/100 WBC (Bld) 16.08 % Normal 0.00-20.00 [facility] Comment on above: Performed By: #### U HCG, URDS #### [facility] [address] NRBC% 0.1 /100{WBC} Normal 0-0.5 [facility] Comment on above: Performed By: #### U HCG, URDS #### [facility] [address] Comprehensive Metabolic Pane arjun 09-14-2023 Albumin [Mass/Vol] 4.0 g/dL Normal 3.5-5.7 [facility] Comment on above: Performed By: #### U HCG, URDS #### [address] Creatinine Clr Calc Pharmacy 59.72 Normal [facility] Comment on above: Result Comment: PERF ORMED BY: [place] [address] PATHOLOGIST MANAGER RISK ELE SPRING M.D. Performed By: #### U HCG, URDS #### [address] GFR/1.73 sq M.predicted MDRD (S/P/Bld) [Vol rate/Area] mL/min/{1.73_m2} Normal [facility] Comment on above: Performed By: #### U HCG, URDS #### [address] Creatinine [Mass/volume] in Serum or PlasmaOrdered By: Good Garcia on 09-14-2023 Creatinine [Mass/Vol] 0.61 mg/dL Normal 0.60-1.20 [facility] Comment on above: Performed By: #### U HCG, URDS #### [address] Drug Screen,Urineon 09-14-19 24 Amphetamine Screen,Urine Negative Normal Negative [facility] Comment on above: Performed By: #### U HCG, URDS #### [address] Barbiturate Screen,Urine Negative Normal Negative [facility] Comment on above: Performed By: #### U HCG, URDS #### [address] Benzodiazepines Screen,Urine Negative Normal Negative [facility] Comment on above: Performed By: #### U HCG, URDS #### [address] Cannabinoid Screen,Urine Negative Normal Negative [facility] Comment on above: Result Comment: Thes e are unconfirmed results and should not be used for legal purposes. Drug Cut-Off Concentration: AMPH 1000 ng/mL GABRIELA 200 ng/mL SIVA 200 ng/mL COCM 300 ng/mL OP 300 ng/mL PCP 25 ng/mL THC 20 ng/mL PERFORMED BY: [place] [address] PATHOLOGIST MANAGER RISK ELE SPRING M.D. Performed By: #### U HCG, URDS #### [address] Cocaine Screen,Urine Negative Normal Negative [facility] Comment on above: Performed By: #### U HCG, URDS #### [address] Opiate Screen,Urine Positive High Negative [facility] Comment on above: Performed By: #### U HCG, URDS #### [address] Phencyclidine Screen,Urine Negative Normal Negative [facility] Comment on above: Performed By: #### U HCG, URDS #### [address] Erythrocyte distribution wid th [Ratio] by Automated countOrdered By: Good Garcia on 09-14-2023 Erythrocyte distribution width (RBC) [Ratio] 13.0 % Normal 11.9-15.3 [facility] Comment on above: Performed By: #### U HCG, URDS #### [facility] [address] [place] [address] [place] Erythrocytes [#/volume] in B lood by Automated countOrdered By: Good aGrcia on 09-14-2023 RBC (Bld) [#/Vol] 3.98 10*6/uL Normal 3.60-5.00 [facility] Comment on above: Performed By: #### U HCG, URDS #### [facility] [address] [place] [address] [place] Ethanol [Mass/volume] in Ser um or PlasmaOrdered By: Good Garcia on 09-14-2023 Ethanol [Mass/Vol] mg/dL Normal [facility] Comment on above: Performed By: #### U HCG, URDS #### [facility] [address] [place] [address] [place] Ethanol [Mass/Vol] TNP [facility] Comment on above: Test not performed Ethyl Alcohol Profileon 08-17 Percent Ethanol Not performed Normal [facility] Comment on above: Result Comment: PERF ORMED BY: [place] [address] PATHOLOGIST MANAGER RISK ELE SPRING M.D. Performed By: #### U HCG, URDS #### [facility] [address] [place] [address] [place] Glucose [Mass/volume] in Ser um or PlasmaOrdered By: Good Garcia on 09-14-2023 Glucose [Mass/Vol] 105 mg/dL High 70-100 [facility] Comment on above: ADA recommended refe rence rangeRandom Glucose Reference Range is dependent on time and content of last meal. Glucose of more than 200 mg/dL in a nonstressed, ambulatory subject supports the diagnosis of Diabetes Mellitus. Result Comment: [place] om Glucose Reference Range is dependent on time and content of last meal. Glucose of more than 200 mg/dL in a nonstressed, ambulatory subject supports the diagnosis of Diabetes Mellitus. ADA recommended reference range Performed By: #### U HCG, URDS #### [address] Hematocrit [Volume Fraction] of Blood by Automated countOrdered By: Good Garcia on 09-14-2023 Hematocrit (Bld) [Volume fraction] 35.7 % Normal 34.0-46.4 [facility] Comment on above: Performed By: #### U HCG, URDS #### [address] Hemoglobin [Mass/volume] in BloodOrdered By: Good Garcia on 09-14-2023 Hemoglobin (Bld) [Mass/Vol] 12.1 g/dL Normal 11.8-15.4 [facility] Comment on above: Performed By: #### U HCG, URDS #### [address] Ketones Auto test strip (U) [Mass/Vol]Ordered By: Good Garcia on 09-14-2023 Ketones (U) [Mass/Vol] Negative Negative [facility] Leukocytes [#/volume] correc gage for nucleated erythrocytes in Blood by Automated counOrdered By: Good Garcia on 09-14-2023 WBC corrected for nucl RBC Auto (Bld) [#/Vol] 5.3 10*3/uL 3.8-11.6 [facility] Leukocytes [#/volume] in Blo od by Automated countOrdered By: Good Garcia on 09-14-2023 WBC (Bld) [#/Vol] 5.3 10*3/uL Normal 3.8-11.6 [facility] Comment on above: Performed By: #### U HCG, URDS #### [place] [address] [place] Lymphocytes [#/volume] in Bl ood by Automated countOrdered By: Good Garcia on 09-14-2023 Lymphocytes (Bld) [#/Vol] 1.7 10*3/uL Normal 1.00-4.8 [facility] Comment on above: Performed By: #### U HCG, URDS #### [address] Lymphocytes/100 leukocytes i n Blood by Automated countOrdered By: Good Garcia on 09-14-2023 Lymphocytes/100 WBC (Bld) 31.5 % Normal . [facility] Comment on above: Performed By: #### U HCG, URDS #### [address] MCH [Entitic mass] by Automa gage countOrdered By: Good Garcia on 09-14-2023 MCH (RBC) [Entitic mass] 30.4 pg Normal 24.7-34.3 [facility] Comment on above: Performed By: #### U HCG, URDS #### [facility] [address] [place] [address] MCHC Auto (RBC) [Mass/Vol]Or dered By: Good Garcia on 09-14-2023 MCHC (RBC) [Mass/Vol] 34.0 g/dL 32.0-35.0 [facility] MCV [Entitic volume] by Auto mated countOrdered By: Good Garcia on 09-14-2023 MCV (RBC) [Entitic vol] 89.6 fL Normal 80-100 [facility] Comment on above: Performed By: #### U HCG, URDS #### [address] Monocyte distribution width [Entitic volume] in Blood by AutomatedOrdered By: Good Garcia on 09-14-2023 Monocyte distribution width Auto (Bld) [Entitic vol] 16.08 % 0.00-20.00 [facility] Neutrophils [#/volume] in Bl ood by Automated countOrdered By: Good Garcia on 09-14-2023 Neutrophils (Bld) [#/Vol] 3.1 10*3/uL Normal 1.8-7.7 [facility] Comment on above: Performed By: #### U HCG, URDS #### [address] Nitrite Test strip Ql (U)Ord ered By: Good Garcia on 09-14-2023 Nitrite Ql (U) Negative Negative [facility] No Panel InformationOrdered By: Good Garcia on 09-14-2023 Estimated GFR (CKD-EPI) > 60.0 mL/Min [facility] Creatinine Clearance (Chem 59.72 [facility] Nucleated erythrocytes [Pres ence] in Blood by Automated countOrdered By: Good Garcia on 09-14-2023 Nucleated RBC Auto Ql (Bld) 0.1 /100{WBC} 0-0.5 [facility] Opiates [Presence] in Urine by Screen methodOrdered By: Good Garcia on 09-14-2023 Opiates Screen Ql (U) Positive Negative [facility] Phencyclidine Screen Ql (U)O rdered By: Good Garcia on 09-14-2023 Phencyclidine Ql (U) Negative Negative [facility] Platelet mean volume [Entiti c volume] in Blood by Automated countOrdered By: Good Garcia on 09-14-2023 Platelet mean volume (Bld) [Entitic vol] 7.3 fL Normal 6.3-10.7 [facility] Comment on above: Performed By: #### U HCG, URDS #### [facility] [address] [place] [address] [place] Platelets [#/volume] in Bloo d by Automated countOrdered By: Good Garcia on 09-14-2023 Platelets (Bld) [#/Vol] 246 10*3/uL Normal 150-450 [facility] Comment on above: Performed By: #### U HCG, URDS #### [facility] [address] [place] [address] [place] Potassium [Moles/volume] in Serum or PlasmaOrdered By: Good Garcia on 09-14-2023 Potassium [Moles/Vol] 3.8 mmol/L Normal 3.5-5.1 [facility] Comment on above: Performed By: #### U HCG, URDS #### [facility] [address] [place], [place] [id number] [place] Protein Auto test strip (U) [Mass/Vol]Ordered By: Good Garcia on 09-14-2023 Protein (U) [Mass/Vol] Negative Negative [facility] Protein [Mass/volume] in Ser um or PlasmaOrdered By: Good Garcia on 09-14-2023 Protein [Mass/Vol] 6.2 g/dL Low 6.4-8.9 [facility] Comment on above: Performed By: #### U HCG, URDS #### [address] Serum globulin measurement b y calculation (mass/volume)Ordered By: Good Garcia on 09-14-2023 Globulin (S) [Mass/Vol] 2.2 g/dL Normal [facility] Comment on above: Performed By: #### U HCG, URDS #### [address] Serum or plasma albumin/glob ulin mass ratioOrdered By: Good Garcia on 09-14-2023 Albumin/Globulin [Mass ratio] 1.8 {ratio} Normal [facility] Comment on above: Performed By: #### U HCG, URDS #### [address] Serum or plasma anion gap de terminationOrdered By: Good Garcia on 09-14-2023 Anion gap [Moles/Vol] 7.6 mmol/L Normal 6.0-15.0 [facility] Comment on above: Performed By: #### U HCG, URDS #### [address] Sodium [Moles/volume] in Ser um or PlasmaOrdered By: Good Garcia on 09-14-2023 Sodium [Moles/Vol] 138 mmol/L Normal 136-145 [facility] Comment on above: Performed By: #### U HCG, URDS #### [address] Specific gravity Auto test s trip (U) [Rel density]Ordered By: Good Garcia on 09-14-2023 Specific gravity (U) [Rel density] 1.004 1.001-1.030 [facility] Urea nitrogen [Mass/volume] in Serum or PlasmaOrdered By: Good Garcia on 09-14-2023 Urea nitrogen [Mass/Vol] 8 mg/dL Normal 7-25 [facility] Comment on above: Performed By: #### U HCG, URDS #### [facility] [address] [place] [address] [place] Urinalysison 09-14-2023 Appearance (U) Clear Normal Clear [facility] Comment on above: Order Comment: Name Collection Type:: Clean-Voided Midstream Performed By: #### U HCG, URDS #### [address] Bilirubin,Urine Negative Normal Negative [facility] Comment on above: Order Comment: Name Collection Type:: Clean-Voided Midstream Performed By: #### U HCG, URDS #### [address] Glucose Ql (U) Normal Normal Normal [facility] Comment on above: Order Comment: Name Collection Type:: Clean-Voided Midstream Performed By: #### U HCG, URDS #### [place] [address] [place] Ketones Ql (U) Negative Normal Negative [facility] Comment on above: Order Comment: Name Collection Type:: Clean-Voided Midstream Performed By: #### U HCG, URDS #### [address] Leukocyte esterase Test strip Ql (U) Negative Normal Negative [facility] Comment on above: Order Comment: Name Collection Type:: Clean-Voided Midstream Performed By: #### U HCG, URDS #### [place] [address] [place] Nitrite,Urine Negative Normal Negative [facility] Comment on above: Order Comment: Name Collection Type:: Clean-Voided Midstream Performed By: #### U HCG, URDS #### [place] [address] [place] Occult Blood,Urine Negative Normal Negative [facility] Comment on above: Order Comment: Name Collection Type:: Clean-Voided Midstream Result Comment: PERF ORMED BY: [place] [address] PATHOLOGIST MANAGER RISK ELE SPRING M.D. Performed By: #### U HCG, URDS #### [address] Protein,Urine Negative Normal Negative [facility] Comment on above: Order Comment: Name Collection Type:: Clean-Voided Midstream Performed By: #### U HCG, URDS #### [address] Specificy [place],Urine 1.004 Normal 1.001-1.030 [facility] Comment on above: Order Comment: Name Collection Type:: Clean-Voided Midstream Performed By: #### U HCG, URDS #### [address] Urobilinogen,Urine Normal Normal Normal [facility] Comment on above: Order Comment: Name Collection Type:: Clean-Voided Midstream Performed By: #### U HCG, URDS #### [address] Urine clarity by refractomet ry automatedOrdered By: Good Garcia on 09-14-2023 Clarity Refractometry automated (U) Clear Clear [facility] Urine glucose measurement by automated test strip (mass/volume)Ordered By: Good Garcia on 09-14-2023 Glucose Auto test strip (U) [Mass/Vol] Normal mg/dL Normal [facility] Urine hemoglobin detection b y automated test stripOrdered By: Good Garcia on 09-14-2023 Hemoglobin Auto test strip Ql (U) Negative Negative [facility] Urine leukocyte esterase det ection by automated test stripOrdered By: Good Garcia on 09-14-2023 Leukocyte esterase Auto test strip Ql (U) Negative Negative [facility] Urine pH measurement by auto mated test stripOrdered By: Good Garcia on 09-14-2023 pH (U) 7.0 [pH] Normal 5.0-9.0 [facility] Comment on above: Order Comment: Name Collection Type:: Clean-Voided Midstream Performed By: #### U HCG, URDS #### [facility] [address] Urobilinogen Auto test strip (U) [Mass/Vol]Ordered By: Goodsam Garcia on 09-14-2023 Urobilinogen (U) [Mass/Vol] Normal mg/dL Normal [facility] TBH UA (CLEAN/CATCH) MICROSC OPIC IF INDICATEon [...] Healthcare PROTEIN URINE Negative NEG/TRACE mg/dL [facility] SPECIFIC GRAVITY URINE 1.025 1.005 - 1.025 [facility] URINE MICROSCOPIC INDICATED YES [facility] UROBILINOGEN URINE 0.2 EU/dL 0.2 - 1.0 EU/dL [facility] CLINISYNC [facility] A1C with Estimated Average G luon 06-04-2023 Glucose [Mass/Vol] 128 mg/dL Normal [facility] Comment on above: Result Comment: PERF ORMED BY: [place] [address] PATHOLOGIST MANAGER RISK ELE SPRING M.D. Performed By: #### U HCG, URDS #### [facility] [address] [place] [address] HbA1c (Bld) [Mass fraction] 6.1 % High 4.3-5.6 [facility] Comment on above: Result Comment: Incr eased risk for diabetes: 5.7 - 6.4 diabetes: >6.4 glycemic control for adults with diabetes: <7.0 Performed By: #### U HCG, URDS #### [address] Comprehensive Metabolic Pane arjun 06-04-2023 Albumin [Mass/Vol] 3.3 g/dL Low 3.5-5.7 [facility] Comment on above: Performed By: #### C MP, A1C WTH eA #### [facility] [address] [place] [address] [place] Albumin/Globulin [Mass ratio] 1.4 {ratio} Normal [facility] Comment on above: Performed By: #### C MP, A1C WTH eA #### [facility] [address] [place] [address] [place] ALP [Catalytic activity/Vol] 39 U/L Normal 34-104 [facility] Comment on above: Performed By: #### C MP, A1C WTH eA #### [facility] [address] [place] [address] [place] ALT [Catalytic activity/Vol] 12 U/L Normal 7-52 [facility] Comment on above: Performed By: #### C MP, A1C WTH eA #### [place] [address] [place] Anion gap [Moles/Vol] 6.4 mmol/L Normal 6.0-15.0 [facility] Comment on above: Performed By: #### C MP, A1C WTH eA #### [place] [address] [place] AST [Catalytic activity/Vol] 20 U/L Normal 13-39 [facility] Comment on above: Performed By: #### C MP, A1C WTH eA #### [place] [address] [place] Bilirubin [Mass/Vol] 0.4 mg/dL Normal 0.3-1.0 [facility] Comment on above: Performed By: #### C MP, A1C WTH eA #### [facility] [address] [place] [address] [place] Calcium [Mass/Vol] 9.3 mg/dL Normal 8.6-10.3 [facility] Comment on above: Performed By: #### C MP, A1C WTH eA #### [facility] [address] [place] [address] [place] Chloride [Moles/Vol] 108 mmol/L High 98-107 [facility] Comment on above: Performed By: #### C MP, A1C WTH eA #### [place] [address] [place] CO2 [Moles/Vol] 30.7 mmol/L Normal 21.0-31.0 [facility] Comment on above: Performed By: #### C MP, A1C WTH eA #### [address] Creatinine [Mass/Vol] 0.71 mg/dL Normal 0.60-1.20 [facility] Comment on above: Performed By: #### C MP, A1C WTH eA #### [place] [address] [place] Creatinine Clr Calc Pharmacy 59.72 Normal [facility] Comment on above: Result Comment: PERF ORMED BY: [place] [address] PATHOLOGIST MANAGER RISK ELE SPRING M.D. Performed By: #### C MP, A1C WTH eA #### [place] [address] [place] GFR/1.73 sq M.predicted MDRD (S/P/Bld) [Vol rate/Area] mL/min/{1.73_m2} Normal [facility] Comment on above: Performed By: #### C MP, A1C WTH eA #### [place] [address] [place] Globulin (S) [Mass/Vol] 2.3 g/dL Normal T [facility] Comment on above: Performed By: #### C MP, A1C WTH eA #### [place] [address] [place] Glucose [Mass/Vol] 101 mg/dL High 70-100 [facility] Comment on above: Result Comment: [place] Glucose Reference Range is dependent on time and content of last meal. Glucose of more than 200 mg/dL in a nonstressed, ambulatory subject supports the diagnosis of Diabetes Mellitus. ADA recommended reference range Performed By: #### C MP, A1C WTH eA #### [address] Potassium [Moles/Vol] 4.1 mmol/L Normal 3.5-5.1 [facility] Comment on above: Performed By: #### C MP, A1C WT eA #### [address] Protein [Mass/Vol] 5.6 g/dL Low 6.4-8.9 [facility] Comment on above: Performed By: #### C SUE, A1C WT eA #### [address] Sodium [Moles/Vol] 141 mmol/L Normal 136-145 [facility] Comment on above: Performed By: #### C SUE, A1C WT eA #### [address] Urea nitrogen [Mass/Vol] 22 mg/dL Normal 7-25 [facility] Comment on above: Performed By: #### C SUE, A1C WT eA #### [address] Urine Cultureon 06-04-2023 Bacteria identified Cx Nom (U) <9,000 colonies/ml mixed bacterial skin contaminants 2 Days PERFORMED BY: [place] [address] PATHOLOGIST MANAGER RISK ELE SPRING M.D. Normal [facility] Comment on above: Performed By: #### C UU #### [address] A1C with Estimated Average G luon 06-01-2023 Glucose [Mass/Vol] 126 mg/dL Normal [facility] Comment on above: Result Comment: PERF ORMED BY: [place] [address] PATHOLOGIST MANAGER RISK ELE SPRING M.D. Performed By: #### C SFCCDIFF, CSF GLU, AERC, GS, CSF TP, CSF PCR PANEL #### [address] HbA1c (Bld) [Mass fraction] 6.0 % High 4.3-5.6 [facility] Comment on above: Result Comment: Incr eased risk for diabetes: 5.7 - 6.4 diabetes: >6.4 glycemic control for adults with diabetes: <7.0 Performed By: #### C SFCCDIFF, CSF GLU, AERC, GS, CSF TP, CSF PCR PANEL #### [address] Complete Blood Count Auto Di ffon 06-01-2023 Basophils (Bld) [#/Vol] 0.0 10*3/uL Normal 0.0-0.2 [facility] Comment on above: Result Comment: PERF ORMED BY: [place] [address] PATHOLOGIST MANAGER RISK ELE SPRING M.D. Performed By: #### C SFCCDIFF, CSF GLU, AERC, GS, CSF TP, CSF PCR PANEL #### [address] Basophils/100 WBC (Bld) 0.5 % Normal . T [facility] Comment on above: Performed By: #### C SFCCDIFF, CSF GLU, AERC, GS, CSF TP, CSF PCR PANEL #### [address] Eosinophils (Bld) [#/Vol] 0.1 10*3/uL Normal 0.0-0.45 [facility] Comment on above: Performed By: #### C SFCCDIFF, CSF GLU, AERC, GS, CSF TP, CSF PCR PANEL #### [address] Eosinophils/100 WBC (Bld) 1.5 % Normal . [facility] Comment on above: Performed By: #### C SFCCDIFF, CSF GLU, AERC, GS, CSF TP, CSF PCR PANEL #### [address] Erythrocyte distribution width (RBC) [Ratio] 12.9 % Normal 11.9-15.3 [facility] Comment on above: Performed By: #### C SFCCDIFF, CSF GLU, AERC, GS, CSF TP, CSF PCR PANEL #### [address] Hematocrit (Bld) [Volume fraction] 35.4 % Normal 34.0-46.4 [facility] Comment on above: Performed By: #### C SFCCDIFF, CSF GLU, AERC, GS, CSF TP, CSF PCR PANEL #### [address] Hemoglobin (Bld) [Mass/Vol] 11.9 g/dL Normal 11.8-15.4 [facility] Comment on above: Performed By: #### C SFCCDIFF, CSF GLU, AERC, GS, CSF TP, CSF PCR PANEL #### [address] Lymphocytes (Bld) [#/Vol] 1.6 10*3/uL Normal 1.00-4.8 [facility] Comment on above: Performed By: #### C SFCCDIFF, CSF GLU, AERC, GS, CSF TP, CSF PCR PANEL #### [address] Lymphocytes/100 WBC (Bld) 31.4 % Normal . [facility] Comment on above: Performed By: #### C SFCCDIFF, CSF GLU, AERC, GS, CSF TP, CSF PCR PANEL #### [address] MCH (RBC) [Entitic mass] 29.5 pg Normal 24.7-34.3 [facility] Comment on above: Performed By: #### C SFCCDIFF, CSF GLU, AERC, GS, CSF TP, CSF PCR PANEL #### [address] MCV (RBC) [Entitic vol] 88.1 fL Normal 80-100 [facility] Comment on above: Performed By: #### C SFCCDIFF, CSF GLU, AERC, GS, CSF TP, CSF PCR PANEL #### [address] Mean Corpuscular HGB Conc 33.5 g/dL Normal 32.0-35.0 [facility] Comment on above: Performed By: #### C SFCCDIFF, CSF GLU, AERC, GS, CSF TP, CSF PCR PANEL #### [address] Monocytes (Bld) [#/Vol] 0.4 10*3/uL Normal 0.0-0.8 [facility] Comment on above: Performed By: #### C SFCCDIFF, CSF GLU, AERC, GS, CSF TP, CSF PCR PANEL #### [address] Monocytes/100 WBC (Bld) 8.8 % Normal . T jennifer [facility] Comment on above: Performed By: #### C SFCCDIFF, CSF GLU, AERC, GS, CSF TP, CSF PCR PANEL #### [address] Neutrophils (Bld) [#/Vol] 2.9 10*3/uL Normal 1.8-7.7 [facility] Comment on above: Performed By: #### C SFCCDIFF, CSF GLU, AERC, GS, CSF TP, CSF PCR PANEL #### [address] Neutrophils/100 WBC (Bld) 57.8 % Normal . [facility] Comment on above: Performed By: #### C SFCCDIFF, CSF GLU, AERC, GS, CSF TP, CSF PCR PANEL #### [address] NRBC% 0.1 /100{WBC} Normal 0-0.5 [facility] Comment on above: Performed By: #### C SFCCDIFF, CSF GLU, AERC, GS, CSF TP, CSF PCR PANEL #### [address] Platelet mean volume (Bld) [Entitic vol] 7.4 fL Normal 6.3-10.7 [facility] Comment on above: Performed By: #### C SFCCDIFF, CSF GLU, AERC, GS, CSF TP, CSF PCR PANEL #### [address] Platelets (Bld) [#/Vol] 220 10*3/uL Normal 150-450 [facility] Comment on above: Performed By: #### C SFCCDIFF, CSF GLU, AERC, GS, CSF TP, CSF PCR PANEL #### [address] RBC (Bld) [#/Vol] 4.02 10*6/uL Normal 3.60-5.00 [facility] Comment on above: Performed By: #### C SFCCDIFF, CSF GLU, AERC, GS, CSF TP, CSF PCR PANEL #### [address] WBC (Bld) [#/Vol] 5.1 10*3/uL Normal 3.8-11.6 [facility] Comment on above: Performed By: #### C SFCCDIFF, CSF GLU, AERC, GS, CSF TP, CSF PCR PANEL #### [address] Comprehensive Metabolic Pane arjun 06-01-2023 Albumin [Mass/Vol] 3.4 g/dL Low 3.5-5.7 [facility] Comment on above: Performed By: #### C SFCCDIFF, CSF GLU, AERC, GS, CSF TP, CSF PCR PANEL #### [address] Albumin/Globulin [Mass ratio] 1.5 {ratio} Normal [facility] Comment on above: Performed By: #### C SFCCDIFF, CSF GLU, AERC, GS, CSF TP, CSF PCR PANEL #### [address] ALP [Catalytic activity/Vol] 37 U/L Normal 34-104 [facility] Comment on above: Performed By: #### C SFCCDIFF, CSF GLU, AERC, GS, CSF TP, CSF PCR PANEL #### [address] ALT [Catalytic activity/Vol] 13 U/L Normal 7-52 [facility] Comment on above: Performed By: #### C SFCCDIFF, CSF GLU, AERC, GS, CSF TP, CSF PCR PANEL #### [address] Anion gap [Moles/Vol] 8.2 mmol/L Normal 6.0-15.0 [facility] Comment on above: Performed By: #### C SFCCDIFF, CSF GLU, AERC, GS, CSF TP, CSF PCR PANEL #### [address] AST [Catalytic activity/Vol] 15 U/L Normal 13-39 [facility] Comment on above: Performed By: #### C SFCCDIFF, CSF GLU, AERC, GS, CSF TP, CSF PCR PANEL #### [address] Bilirubin [Mass/Vol] 0.3 mg/dL Normal 0.3-1.0 [facility] Comment on above: Performed By: #### C SFCCDIFF, CSF GLU, AERC, GS, CSF TP, CSF PCR PANEL #### [address] Calcium [Mass/Vol] 9.1 mg/dL Normal 8.6-10.3 [facility] Comment on above: Performed By: #### C SFCCDIFF, CSF GLU, AERC, GS, CSF TP, CSF PCR PANEL #### [address] Chloride [Moles/Vol] 109 mmol/L High 98-107 [facility] Comment on above: Performed By: #### C SFCCDIFF, CSF GLU, AERC, GS, CSF TP, CSF PCR PANEL #### [address] CO2 [Moles/Vol] 27.8 mmol/L Normal 21.0-31.0 [facility] Comment on above: Performed By: #### C SFCCDIFF, CSF GLU, AERC, GS, CSF TP, CSF PCR PANEL #### [address] Creatinine [Mass/Vol] 0.58 mg/dL Low 0.60-1.20 [facility] Comment on above: Performed By: #### C SFCCDIFF, CSF GLU, AERC, GS, CSF TP, CSF PCR PANEL #### [address] Creatinine Clr Calc Pharmacy 59.72 Normal [facility] Comment on above: Result Comment: PERF ORMED BY: [place] [address] PATHOLOGIST MANAGER RISK ELE SPRING M.D. Performed By: #### C SFCCDIFF, CSF GLU, AERC, GS, CSF TP, CSF PCR PANEL #### [address] GFR/1.73 sq M.predicted MDRD (S/P/Bld) [Vol rate/Area] mL/min/{1.73_m2} Normal [facility] Comment on above: Performed By: #### C SFCCDIFF, CSF GLU, AERC, GS, CSF TP, CSF PCR PANEL #### [address] Globulin (S) [Mass/Vol] 2.2 g/dL Normal T [facility] Comment on above: Performed By: #### C SFCCDIFF, CSF GLU, AERC, GS, CSF TP, CSF PCR PANEL #### [address] Glucose [Mass/Vol] 94 mg/dL Normal 70-100 [facility] Comment on above: Result Comment: [place] Glucose Reference Range is dependent on time and content of last meal. Glucose of more than 200 mg/dL in a nonstressed, ambulatory subject supports the diagnosis of Diabetes Mellitus. ADA recommended reference range Performed By: #### C SFCCDIFF, CSF GLU, AERC, GS, CSF TP, CSF PCR PANEL #### [address] Potassium [Moles/Vol] 4.0 mmol/L Normal 3.5-5.1 [facility] Comment on above: Performed By: #### C SFCCDIFF, CSF GLU, AERC, GS, CSF TP, CSF PCR PANEL #### [address] Protein [Mass/Vol] 5.6 g/dL Low 6.4-8.9 [facility] Comment on above: Performed By: #### C SFCCDIFF, CSF GLU, AERC, GS, CSF TP, CSF PCR PANEL #### [address] Sodium [Moles/Vol] 141 mmol/L Normal 136-145 [facility] Comment on above: Performed By: #### C SFCCDIFF, CSF GLU, AERC, GS, CSF TP, CSF PCR PANEL #### [address] Urea nitrogen [Mass/Vol] 18 mg/dL Normal 7-25 [facility] Comment on above: Performed By: #### C SFCCDIFF, CSF GLU, AERC, GS, CSF TP, CSF PCR PANEL #### [address] Dipstick and Microscopicon 0 05-31-2023 Appearance (U) Slightly Cloudy Critically abnormal Clear [facility] Comment on above: Order Comment: Comme nt tube 3 Performed By: #### C SFCCDIFF, CSF GLU, AERC, GS, CSF TP, CSF PCR PANEL #### [address] Bacteria,Urine None Seen Normal None Seen [facility] Comment on above: Order Comment: Comme nt tube 3 Performed By: #### C SFCCDIFF, CSF GLU, AERC, GS, CSF TP, CSF PCR PANEL #### [address] Bilirubin,Urine Negative Normal Negative [facility] Comment on above: Order Comment: Comme nt tube 3 Performed By: #### C SFCCDIFF, CSF GLU, AERC, GS, CSF TP, CSF PCR PANEL #### [address] Color (U) Yellow Normal Yellow [facility] Comment on above: Order Comment: Comme nt tube 3 Performed By: #### C SFCCDIFF, CSF GLU, AERC, GS, CSF TP, CSF PCR PANEL #### [address] Glucose Ql (U) Normal Normal Normal [facility] Comment on above: Order Comment: Comme nt tube 3 Performed By: #### C SFCCDIFF, CSF GLU, AERC, GS, CSF TP, CSF PCR PANEL #### [address] Hyaline Casts,Urine 9-19 High 0-8 [facility] Comment on above: Order Comment: Comme nt tube 3 Result Comment: PERF ORMED BY: [place] [address] PATHOLOGIST MANAGER RISK ELE SPRING M.D. Performed By: #### C SFCCDIFF, CSF GLU, AERC, GS, CSF TP, CSF PCR PANEL #### [address] Ketones Ql (U) Negative Normal Negative [facility] Comment on above: Order Comment: Comme nt tube 3 Performed By: #### C SFCCDIFF, CSF GLU, AERC, GS, CSF TP, CSF PCR PANEL #### [address] Leukocyte esterase Test strip Ql (U) 2+ High Negative [facility] Comment on above: Order Comment: Comme nt tube 3 Performed By: #### C SFCCDIFF, CSF GLU, AERC, GS, CSF TP, CSF PCR PANEL #### [address] Nitrite,Urine Negative Normal Negative [facility] Comment on above: Order Comment: Comme nt tube 3 Performed By: #### C SFCCDIFF, CSF GLU, AERC, GS, CSF TP, CSF PCR PANEL #### [address] Occult Blood,Urine Negative Normal Negative [facility] Comment on above: Order Comment: Comme nt tube 3 Result Comment: PERF ORMED BY: [place] [address] PATHOLOGIST MANAGER RISK ELE SPRING M.D. Performed By: #### C SFCCDIFF, CSF GLU, AERC, GS, CSF TP, CSF PCR PANEL #### [address] Othe Crystals,Urine None Seen Normal [facility] Comment on above: Order Comment: Comme nt tube 3 Performed By: #### C SFCCDIFF, CSF GLU, AERC, GS, CSF TP, CSF PCR PANEL #### [address] pH (U) 6.0 [pH] Normal 5.0-9.0 [facility] Comment on above: Order Comment: Comme nt tube 3 Performed By: #### C SFCCDIFF, CSF GLU, AERC, GS, CSF TP, CSF PCR PANEL #### [address] Protein,Urine Negative Normal Negative [facility] Comment on above: Order Comment: Comme nt tube 3 Performed By: #### C SFCCDIFF, CSF GLU, AERC, GS, CSF TP, CSF PCR PANEL #### [address] RBC,Urine 5-9 High 0-4 [facility] Comment on above: Order Comment: Comme nt tube 3 Performed By: #### C SFCCDIFF, CSF GLU, AERC, GS, CSF TP, CSF PCR PANEL #### [address] Specificy [place],Urine 1.030 Normal 1.001-1.030 [facility] Comment on above: Order Comment: Comme nt tube 3 Performed By: #### C SFCCDIFF, CSF GLU, AERC, GS, CSF TP, CSF PCR PANEL #### [address] Squamous Epithelial Cell,Urine 1-2 Normal 0-2 [facility] Comment on above: Order Comment: Comme nt tube 3 Performed By: #### C SFCCDIFF, CSF GLU, AERC, GS, CSF TP, CSF PCR PANEL #### [address] Uric Acid Crystals,Urine 1+ Normal [facility] Comment on above: Order Comment: Comme nt tube 3 Performed By: #### C SFCCDIFF, CSF GLU, AERC, GS, CSF TP, CSF PCR PANEL #### [address] Urobilinogen,Urine Normal Normal Normal [facility] Comment on above: Order Comment: Comme nt tube 3 Performed By: #### C SFCCDIFF, CSF GLU, AERC, GS, CSF TP, CSF PCR PANEL #### [address] WBC,Urine 5-9 High 0-4 [facility] Comment on above: Order Comment: Comme nt tube 3 Performed By: #### C SFCCDIFF, CSF GLU, AERC, GS, CSF TP, CSF PCR PANEL #### [address] MR head/brain wo conon 05-31 MR head/brain wo con [facility] [address] MRI Report Signed Patient: Donnie Bullock MR#: [id number] [birth year] : 1955 Acct:[id number] Age/Sex: 67 / F ADM Date: 05/25/23 Loc: Room: [address] [place] [address] Type: ADM IN Attending Dr: Sridhar Hoffman [...] Coates Jr., D.OEsteban05/31/2023 1:55 PM Dictation Location: [place] [address] Transcribed By: [facility] 05/31/23 1355 Dictated By: Raymundo Coates Jr, DO 05/31/23 1348 Signed By: 05/31/23 1355 Normal [facility] Urine Cultureon 05-31-2023 Bacteria identified Cx Nom (U) 15,000 colonies/ml mixed bacterial skin contaminants 2 Days PERFORMED BY: [place] [address] PATHOLOGIST MANAGER RISK ELE SPRING M.D. Normal [facility] Comment on above: Performed By: #### C SFCCDIFF, CSF GLU, AERC, GS, CSF TP, CSF PCR PANEL #### [place] [id number] [facility] Ammoniaon 05-29-2023 Ammonia (P) [Moles/Vol] 21 umol/L Normal 11-35 [facility] Comment on above: Result Comment: PERF ORMED BY: [place] [address] PATHOLOGIST MANAGER RISK ELE SPRING M.D. Performed By: #### C SFCCDIFF, CSF GLU, AERC, GS, CSF TP, CSF PCR PANEL #### [place] [id number] [facility] Vitamin B12on 05-29-2023 Cobalamin (Vitamin B12) [Mass/Vol] 380 pg/mL Normal 180-914 [facility] Comment on above: Result Comment: PERF ORMED BY: [place] [address] PATHOLOGIST MANAGER RISK ELE SPRING M.D. Performed By: #### C SFCCDIFF, CSF GLU, AERC, GS, CSF TP, CSF PCR PANEL #### [address] Lipid Panelon 05-26-2023 Cholesterol [Mass/Vol] 177 mg/dL Normal 140-200 [facility] Comment on above: Result Comment: Chol less than 200 mg/dl low risk Chol 201-239 mg/dl borderline risk Chol 240 mg/dl and greater high risk Performed By: #### C SFCCDIFF, CSF GLU, AERC, GS, CSF TP, CSF PCR PANEL #### [address] Cholesterol in HDL [Mass/Vol] 62 mg/dL Normal 23-92 [facility] Comment on above: Result Comment: HDL CHOL ATP-III CLASSIFICATION Cardiovascular Risk HDL > or equal to 60 mg/dL LOW HDL < 40 mg/dL HIGH Performed By: #### C SFCCDIFF, CSF GLU, AERC, GS, CSF TP, CSF PCR PANEL #### [address] Cholesterol.total/Mandie sterol in HDL [Mass ratio] 2.9 {ratio} Normal <5.0 [facility] Comment on above: Performed By: #### C SFCCDIFF, CSF GLU, AERC, GS, CSF TP, CSF PCR PANEL #### [address] LDL Cholesterol,Calculated 95 mg/dL Normal 0-100 [facility] Comment on above: Result Comment: LDL ATP III CLASSIFICATION LDL less than 100 mg/dL Optimal LDL 100-129 mg/dL Near or above optimal LDL 130-159 mg/dL Borderline high LDL 160-189 mg/dL High LDL greater than 189 mg/dL Very high Performed By: #### C SFCCDIFF, CSF GLU, AERC, GS, CSF TP, CSF PCR PANEL #### [place] [address] Triglyceride w/Reflex 100 mg/dL Normal 0-149 [facility] Comment on above: Result Comment: TRIG ATP III CLASSIFICATION TRIG less than 150 mg/dL Normal TRIG 150-199 mg/dL Borderline high TRIG 200-500 mg/dL High TRIG greater than 500 mg/dL Very high Standard traceable to the Center for Disease Conrtrol and Prevention (CDC) test method. Performed By: #### C SFCCDIFF, CSF GLU, AERC, GS, CSF TP, CSF PCR PANEL #### [address] VLDL CHOLESTEROL 20 mg/dL Normal [facility] Comment on above: Performed By: #### C SFCCDIFF, CSF GLU, AERC, GS, CSF TP, CSF PCR PANEL #### [address] Thyroid Stim Hormone w/Rflxo n 05-26-2023 Thyroid Stim Hormone w/Rflx 2.11 u[iU]/mL Normal 0.45-5.33 [facility] Comment on above: Performed By: #### C SFCCDIFF, CSF GLU, AERC, GS, CSF TP, CSF PCR PANEL #### [address] Vitamin D 25 Hydroxy Totalon 05-26-2023 Vitamin D 25 Hydroxy Total 25.4 ng/mL Low 30-100 [facility] Comment on above: Result Comment: HUSAM MIN D STATUS 25(OH)VITAMIN D RANGE (ng/mL) Deficient <20 Insufficient 20 to <30 Sufficient 30 to 100 Reference: Shaq MF,Monica NC, Fabrizio , et al. Evaluation,treatment, and prevention of vitamin D deficiency; an Endocrine Society clinical practice guideline. JCEM. 2010; 96(7):1911-30. PERFORMED BY: [place] [address] PATHOLOGIST MANAGER RISK ELE SPRING M.D. Performed By: #### C SFCCDIFF, CSF GLU, AERC, GS, CSF TP, CSF PCR PANEL #### [address] [place] [address] [place] Alanine aminotransferase [En zymatic activity/volume] in Serum or PlasmaOrdered By: Robert Caruso on 05-25-2023 ALT [Catalytic activity/Vol] 14 U/L Normal 7-52 [facility] Comment on above: Performed By: #### C SFCCDIFF, CSF GLU, AERC, GS, CSF TP, CSF PCR PANEL #### [place] [facility] [address] [place] [address] [place] Albumin [Mass/volume] in Ser um or Plasma by Bromocresol green (BCG) dye binding methoOrdered By: Robert Caruso on 05-25-2023 Albumin BCG dye [Mass/Vol] 4.4 g/dL 3.5-5.7 [facility] Alkaline phosphatase [Enzyma tic activity/volume] in Serum or PlasmaOrdered By: Robert Caruso on 05-25-2023 ALP [Catalytic activity/Vol] 48 U/L Normal 34-104 [facility] Comment on above: Performed By: #### C SFCCDIFF, CSF GLU, AERC, GS, CSF TP, CSF PCR PANEL #### [address] Amphetamine Screen Ql (U)Ord ered By: Robert Caruso on 05-25-2023 Amphetamines Ql (U) Negative Negative [facility] Aspartate aminotransferase [ Enzymatic activity/volume] in Serum or PlasmaOrdered By: Robert Caruso on 05-25-2023 AST [Catalytic activity/Vol] 21 U/L Normal 13-39 [facility] Comment on above: Performed By: #### C SFCCDIFF, CSF GLU, AERC, GS, CSF TP, CSF PCR PANEL #### [place] [address] [place] Automated basophil %Ordered By: Robert Caruso on 05-25-2023 Basophils/100 WBC (Bld) 0.5 % Normal . [facility] Comment on above: Performed By: #### C SFCCDIFF, CSF GLU, AERC, GS, CSF TP, CSF PCR PANEL #### [place] [address] [place] Automated basophil countOrde red By: Robert Caruso on 05-25-2023 Basophils (Bld) [#/Vol] 0.0 10*3/uL Normal 0.0-0.2 [facility] Comment on above: Result Comment: PERF ORMED BY: [place] [address] PATHOLOGIST MANAGER RISK ELE SPRING M.D. Performed By: #### C SFCCDIFF, CSF GLU, AERC, GS, CSF TP, CSF PCR PANEL #### [address] Automated blood monocyte cou ntOrdered By: Robert Caruso on 05-25-2023 Monocytes (Bld) [#/Vol] 0.3 10*3/uL Normal 0.0-0.8 [facility] Comment on above: Performed By: #### C SFCCDIFF, CSF GLU, AERC, GS, CSF TP, CSF PCR PANEL #### [address] Automated eosinophil %Ordere d By: Robert Caruso on 05-25-2023 Eosinophils/100 WBC (Bld) 0.1 % Normal . [facility] Comment on above: Performed By: #### C SFCCDIFF, CSF GLU, AERC, GS, CSF TP, CSF PCR PANEL #### [address] Automated eosinophil countOr dered By: Robert Caruso on 05-25-2023 Eosinophils (Bld) [#/Vol] 0.0 10*3/uL Normal 0.0-0.45 [facility] Comment on above: Performed By: #### C SFCCDIFF, CSF GLU, AERC, GS, CSF TP, CSF PCR PANEL #### [address] Automated monocyte %Ordered By: Robert Caruso on 05-25-2023 Monocytes/100 WBC (Bld) 3.9 % Normal . [facility] Comment on above: Performed By: #### C SFCCDIFF, CSF GLU, AERC, GS, CSF TP, CSF PCR PANEL #### [facility] [address] Automated neutrophil %Ordere d By: Robert Caruso on 05-25-2023 Neutrophils/100 WBC (Bld) 80.0 % Normal . [facility] Comment on above: Performed By: #### C SFCCDIFF, CSF GLU, AERC, GS, CSF TP, CSF PCR PANEL #### [facility] [address] Barbiturates [Presence] in U rine by Screen methodOrdered By: Robert Caruso on 05-25-2023 Barbiturates Screen Ql (U) Negative Negative [facility] Benzodiazepines Screen Ql (U )Ordered By: Robert Caruso on 05-25-2023 Benzodiazepines Ql (U) Negative Negative [facility] Benzoylecgonine [Presence] i n Urine by Screen methodOrdered By: Robert Caruso on 05-25-2023 Benzoylecgonine Screen Ql (U) Negative Negative [facility] Bilirubin.total [Mass/volume ] in Serum or PlasmaOrdered By: Robert Caruso on 05-25-2023 Bilirubin [Mass/Vol] 0.8 mg/dL Normal 0.3-1.0 [facility] Comment on above: Performed By: #### C SFCCDIFF, CSF GLU, AERC, GS, CSF TP, CSF PCR PANEL #### [address] Calcium [Mass/volume] in Ser um or PlasmaOrdered By: Robert Caruso on 05-25-2023 Calcium [Mass/Vol] 10.1 mg/dL Normal 8.6-10.3 [facility] Comment on above: Performed By: #### C SFCCDIFF, CSF GLU, AERC, GS, CSF TP, CSF PCR PANEL #### [address] Cannabinoids [Presence] in U rine by Screen methodOrdered By: Robert Caruso on 05-25-2023 Cannabinoids Screen Ql (U) Negative Negative [facility] Comment on above: These are unconfirme d results and should not be used for legal purposes. Drug Cut-Off Concentration: AMPH 1000 ng/mL GABRIELA 200 ng/mL SIVA 200 ng/mL COCM 300 ng/mL OP 300 ng/mL PCP 25 ng/mL THC 20 ng/mL Carbon dioxide, total [Moles /volume] in Serum or PlasmaOrdered By: Robert Caruso on 05-25-2023 CO2 [Moles/Vol] 29.6 mmol/L Normal 21.0-31.0 [facility] Comment on above: Performed By: #### C SFCCDIFF, CSF GLU, AERC, GS, CSF TP, CSF PCR PANEL #### [address] Chloride [Moles/volume] in S anupam or PlasmaOrdered By: Robert Caruso on 05-25-2023 Chloride [Moles/Vol] 102 mmol/L Normal 98-107 [facility] Comment on above: Performed By: #### C SFCCDIFF, CSF GLU, AERC, GS, CSF TP, CSF PCR PANEL #### [address] Complete Blood Count Auto Di ffon 05-25-2023 Mean Corpuscular HGB Conc 34.0 g/dL Normal 32.0-35.0 [facility] Comment on above: Performed By: #### C SFCCDIFF, CSF GLU, AERC, GS, CSF TP, CSF PCR PANEL #### [place] [address] [place] Monocytes/100 WBC (Bld) 17.76 % Normal 0.00-20.00 [facility] Comment on above: Performed By: #### C SFCCDIFF, CSF GLU, AERC, GS, CSF TP, CSF PCR PANEL #### [address] NRBC% 0.0 /100{WBC} Normal 0-0.5 [facility] Comment on above: Performed By: #### C SFCCDIFF, CSF GLU, AERC, GS, CSF TP, CSF PCR PANEL #### [address] [place] [address] [place] Comprehensive Metabolic Pane arjun 05-25-2023 Albumin [Mass/Vol] 4.4 g/dL Normal 3.5-5.7 [facility] Comment on above: Performed By: #### C SFCCDIFF, CSF GLU, AERC, GS, CSF TP, CSF PCR PANEL #### [address] Creatinine Clr Calc Pharmacy 59.72 Normal [facility] Comment on above: Result Comment: PERF ORMED BY: [place] [address] PATHOLOGIST MANAGER RISK ELE SPRING M.D. Performed By: #### C SFCCDIFF, CSF GLU, AERC, GS, CSF TP, CSF PCR PANEL #### [address] GFR/1.73 sq M.predicted MDRD (S/P/Bld) [Vol rate/Area] mL/min/{1.73_m2} Normal [facility] Comment on above: Performed By: #### C SFCCDIFF, CSF GLU, AERC, GS, CSF TP, CSF PCR PANEL #### [address] Creatinine [Mass/volume] in Serum or PlasmaOrdered By: Robert Caruso on 05-25-2023 Creatinine [Mass/Vol] 0.76 mg/dL Normal 0.60-1.20 [facility] Comment on above: Performed By: #### C SFCCDIFF, CSF GLU, AERC, GS, CSF TP, CSF PCR PANEL #### [address] Drug Screen,Urineon 05-25-19 24 Amphetamine Screen,Urine Negative Normal Negative [facility] Comment on above: Performed By: #### U HCG, URDS #### [address] Barbiturate Screen,Urine Negative Normal Negative [facility] Comment on above: Performed By: #### U HCG, URDS #### [address] Benzodiazepines Screen,Urine Negative Normal Negative [facility] Comment on above: Performed By: #### U HCG, URDS #### [address] Cannabinoid Screen,Urine Negative Normal Negative [facility] Comment on above: Result Comment: Thes e are unconfirmed results and should not be used for legal purposes. Drug Cut-Off Concentration: AMPH 1000 ng/mL GABRIELA 200 ng/mL SIVA 200 ng/mL COCM 300 ng/mL OP 300 ng/mL PCP 25 ng/mL THC 20 ng/mL PERFORMED BY: [place] [address] PATHOLOGIST MANAGER RISK ELE SPRING M.D. Performed By: #### U HCG, URDS #### [address] Cocaine Screen,Urine Negative Normal Negative [facility] Comment on above: Performed By: #### U HCG, URDS #### [address] Opiate Screen,Urine Negative Normal Negative [facility] Comment on above: Performed By: #### U HCG, URDS #### [address] Phencyclidine Screen,Urine Negative Normal Negative [facility] Comment on above: Performed By: #### U HCG, URDS #### [address] ECG 12 lead ECGon 05-25-2023 ECG 12 lead ECG [facility] [place] [address] [place] [address] Electrocardiograph Report Signed Patient: Donnie Bullock MR#: [id number] 21 : 1955 Acct:[id number] Age/Sex: 67 / F ADM Date: 05/25/23 Loc: Room: [address] [place] [address] Type: ADM IN Attending Dr: Sridhar Hoffman [...] previous ECGs available Confirmed by Fidel Flood ([id number]) on 05/25/2023 5:09:43 PM Referred By: Electronically Signed By:Fidel Flood Transcribed By: MUS Signed By Fidel Flood MD 05/25/23 1709 Normal [facility] Erythrocyte distribution wid th [Ratio] by Automated countOrdered By: Robert Caruso on 05-25-2023 Erythrocyte distribution width (RBC) [Ratio] 12.9 % Normal 11.9-15.3 [facility] Comment on above: Performed By: #### C SFCCDIFF, CSF GLU, AERC, GS, CSF TP, CSF PCR PANEL #### [facility] [address] [place] [address] [place] Erythrocytes [#/volume] in B lood by Automated countOrdered By: Robert Caruso on 05-25-2023 RBC (Bld) [#/Vol] 4.74 10*6/uL Normal 3.60-5.00 [facility] Comment on above: Performed By: #### C SFCCDIFF, CSF GLU, AERC, GS, CSF TP, CSF PCR PANEL #### [facility] [address] [place] [address] [place] Ethanol [Mass/volume] in Ser um or PlasmaOrdered By: Robert Caruso on 05-25-2023 Ethanol [Mass/Vol] mg/dL Normal [facility] Comment on above: Performed By: #### C SFCCDIFF, CSF GLU, AERC, GS, CSF TP, CSF PCR PANEL #### [facility] [address] [place] [id number] [place] Ethanol [Mass/Vol] TNP [facility] Comment on above: Test not performed Ethyl Alcohol Profileon Percent Ethanol Not performed Normal [facility] Comment on above: Result Comment: PERF ORMED BY: [address] [place] [id number] PATHOLOGIST MANAGER RISK ELE SPRING M.D. Performed By: #### C SFCCDIFF, CSF GLU, AERC, GS, CSF TP, CSF PCR PANEL #### [facility] [address] [place] [address] [place] Glucose [Mass/volume] in Ser um or PlasmaOrdered By: Robert Caruso on 05-25-2023 Glucose [Mass/Vol] 120 mg/dL High 70-100 [facility] Comment on above: ADA recommended refe rence rangeRandom Glucose Reference Range is dependent on time and content of last meal. Glucose of more than 200 mg/dL in a nonstressed, ambulatory subject supports the diagnosis of Diabetes Mellitus. Result Comment: [place] om Glucose Reference Range is dependent on time and content of last meal. Glucose of more than 200 mg/dL in a nonstressed, ambulatory subject supports the diagnosis of Diabetes Mellitus. ADA recommended reference range Performed By: #### C SFCCDIFF, CSF GLU, AERC, GS, CSF TP, CSF PCR PANEL #### [address] [address] [place] HCG ( test) IA.rapi d Ql (U)Ordered By: Robert Caruso on 05-25-2023 HCG ( test) Ql (U) Negative [facility] HCG,Urineon 05-25-2023 Beta HCG ( test) Ql (U) Negative Normal [facility] Comment on above: Result Comment: PERF ORMED BY: [facility] [address] [place] [address] PATHOLOGIST MANAGER RISK ELE SPRING M.D. Performed By: #### U HCG, URDS #### [facility] [address] [place] [address] [facility] Hematocrit [Volume Fraction] of Blood by Automated countOrdered By: Robert Caruso on 05-25-2023 Hematocrit (Bld) [Volume fraction] 41.6 % Normal 34.0-46.4 [facility] Comment on above: Performed By: #### C SFCCDIFF, CSF GLU, AERC, GS, CSF TP, CSF PCR PANEL #### [facility] [address] Hemoglobin [Mass/volume] in BloodOrdered By: Robert Caruso on 05-25-2023 Hemoglobin (Bld) [Mass/Vol] 14.1 g/dL Normal 11.8-15.4 [facility] Comment on above: Performed By: #### C SFCCDIFF, CSF GLU, AERC, GS, CSF TP, CSF PCR PANEL #### [facility] [address] Leukocytes [#/volume] correc gage for nucleated erythrocytes in Blood by Automated counOrdered By: Robert Caruso on 05-25-2023 WBC corrected for nucl RBC Auto (Bld) [#/Vol] 7.0 10*3/uL 3.8-11.6 [facility] Leukocytes [#/volume] in Blo od by Automated countOrdered By: Robert Caruso on 05-25-2023 WBC (Bld) [#/Vol] 7.0 10*3/uL Normal 3.8-11.6 [facility] Comment on above: Performed By: #### C SFCCDIFF, CSF GLU, AERC, GS, CSF TP, CSF PCR PANEL #### [address] Lymphocytes [#/volume] in Bl ood by Automated countOrdered By: Robert Caruso on 05-25-2023 Lymphocytes (Bld) [#/Vol] 1.1 10*3/uL Normal 1.00-4.8 [facility] Comment on above: Performed By: #### C SFCCDIFF, CSF GLU, AERC, GS, CSF TP, CSF PCR PANEL #### [address] Lymphocytes/100 leukocytes i n Blood by Automated countOrdered By: Robert Caruso on 05-25-2023 Lymphocytes/100 WBC (Bld) 15.5 % Normal . [facility] Comment on above: Performed By: #### C SFCCDIFF, CSF GLU, AERC, GS, CSF TP, CSF PCR PANEL #### [address] MCH [Entitic mass] by Automa gage countOrdered By: Robert Caruso on 05-25-2023 MCH (RBC) [Entitic mass] 29.9 pg Normal 24.7-34.3 [facility] Comment on above: Performed By: #### C SFCCDIFF, CSF GLU, AERC, GS, CSF TP, CSF PCR PANEL #### [address] MCHC Auto (RBC) [Mass/Vol]Or dered By: Robert Caruso on 05-25-2023 MCHC (RBC) [Mass/Vol] 34.0 g/dL 32.0-35.0 [facility] MCV [Entitic volume] by Auto mated countOrdered By: Robert Caruso on 05-25-2023 MCV (RBC) [Entitic vol] 87.8 fL Normal 80-100 [facility] Comment on above: Performed By: #### C SFCCDIFF, CSF GLU, AERC, GS, CSF TP, CSF PCR PANEL #### [address] Monocyte distribution width [Entitic volume] in Blood by AutomatedOrdered By: Robert Caruso on 05-25-2023 Monocyte distribution width Auto (Bld) [Entitic vol] 17.76 % 0.00-20.00 [facility] Neutrophils [#/volume] in Bl ood by Automated countOrdered By: Robert Caruso on 05-25-2023 Neutrophils (Bld) [#/Vol] 5.6 10*3/uL Normal 1.8-7.7 [facility] Comment on above: Performed By: #### C SFCCDIFF, CSF GLU, AERC, GS, CSF TP, CSF PCR PANEL #### [address] No Panel InformationOrdered By: Robert Caruso on 05-25-2023 Estimated GFR (CKD-EPI) > 60.0 mL/Min [facility] Creatinine Clearance (Chem 59.72 [facility] Nucleated erythrocytes [Pres ence] in Blood by Automated countOrdered By: Robert Caruso on 05-25-2023 Nucleated RBC Auto Ql (Bld) 0.0 /100{WBC} 0-0.5 [facility] Opiates [Presence] in Urine by Screen methodOrdered By: Robert Caruso on 05-25-2023 Opiates Screen Ql (U) Negative Negative [facility] Phencyclidine Screen Ql (U)O rdered By: Robert Caruso on 05-25-2023 Phencyclidine Ql (U) Negative Negative [facility] Platelet mean volume [Entiti c volume] in Blood by Automated countOrdered By: Robert Caruso on 05-25-2023 Platelet mean volume (Bld) [Entitic vol] 7.9 fL Normal 6.3-10.7 [facility] Comment on above: Performed By: #### C SFCCDIFF, CSF GLU, AERC, GS, CSF TP, CSF PCR PANEL #### [facility] [address] [place] [address] [place] Platelets [#/volume] in Bloo d by Automated countOrdered By: Robert Caruso on 05-25-2023 Platelets (Bld) [#/Vol] 292 10*3/uL Normal 150-450 [facility] Comment on above: Performed By: #### C SFCCDIFF, CSF GLU, AERC, GS, CSF TP, CSF PCR PANEL #### [facility] [address] [place] [address] [place] Potassium [Moles/volume] in Serum or PlasmaOrdered By: Robert Caruso on 05-25-2023 Potassium [Moles/Vol] 3.7 mmol/L Normal 3.5-5.1 [facility] Comment on above: Performed By: #### C SFCCDIFF, CSF GLU, AERC, GS, CSF TP, CSF PCR PANEL #### [facility] [address] [place] [address] [place] Protein [Mass/volume] in Ser um or PlasmaOrdered By: Robert Caruso on 05-25-2023 Protein [Mass/Vol] 7.3 g/dL Normal 6.4-8.9 [facility] Comment on above: Performed By: #### C SFCCDIFF, CSF GLU, AERC, GS, CSF TP, CSF PCR PANEL #### [address] Serum globulin measurement b y calculation (mass/volume)Ordered By: Robert Caruso on 05-25-2023 Globulin (S) [Mass/Vol] 2.9 g/dL Normal [facility] Comment on above: Performed By: #### C SFCCDIFF, CSF GLU, AERC, GS, CSF TP, CSF PCR PANEL #### [address] Serum or plasma albumin/glob ulin mass ratioOrdered By: Robert Caruso on 05-25-2023 Albumin/Globulin [Mass ratio] 1.5 {ratio} Normal [facility] Comment on above: Performed By: #### C SFCCDIFF, CSF GLU, AERC, GS, CSF TP, CSF PCR PANEL #### [address] Serum or plasma anion gap de terminationOrdered By: Robert Caruso on 05-25-2023 Anion gap [Moles/Vol] 10.1 mmol/L Normal 6.0-15.0 [facility] Comment on above: Performed By: #### C SFCCDIFF, CSF GLU, AERC, GS, CSF TP, CSF PCR PANEL #### [address] Sodium [Moles/volume] in Ser um or PlasmaOrdered By: Robert Caruso on 05-25-2023 Sodium [Moles/Vol] 138 mmol/L Normal 136-145 [facility] Comment on above: Performed By: #### C SFCCDIFF, CSF GLU, AERC, GS, CSF TP, CSF PCR PANEL #### [address] Urea nitrogen [Mass/volume] in Serum or PlasmaOrdered By: Robert Caruso on 05-25-2023 Urea nitrogen [Mass/Vol] 12 mg/dL Normal 7-25 [facility] Comment on above: Performed By: #### C SFCCDIFF, CSF GLU, AERC, GS, CSF TP, CSF PCR PANEL #### [facility] [address] [place] [address] [facility] .Fentanyl Scrn wo Conf,Uron 05-20-2023 Ur Fentanyl Scrn Negative Normal NEG <1.0 [facility] Comment on above: Performed By: #### C [id number] #### [facility] [address] [place] [address] Ur Fentanyl Scrn Qnt 0.10 ng/mL Normal <=0.99 [facility] Comment on above: Performed By: #### C [id number] #### [place] [address] [place] [address] .eGFRon 05-20-2023 GFR/1.73 sq M.predicted MDRD (S/P/Bld) [Vol rate/Area] mL/min/{1.73_m2} Normal >=60 [facility] Comment on above: Result Comment: [facility] [...] years Performed By: #### E GFR #### [address] [address] CBC w/ Diffon 05-20-2023 Erythrocyte distribution width (RBC) [Ratio] 13.2 % Normal 11.6-14.8 [facility] Comment on above: Performed By: #### C BC #### [address] [address] Hematocrit (Bld) [Volume fraction] 40.9 % Normal 36.0-46.0 [facility] Comment on above: Performed By: #### C BC #### [address] [address] Hemoglobin (Bld) [Mass/Vol] 13.9 g/dL Normal 12.0-16.0 [facility] Comment on above: Performed By: #### C BC #### [address] [address] MCH (RBC) [Entitic mass] 30.1 pg Normal 27.0-35.0 [facility] Comment on above: Performed By: #### C BC #### [address] [address] MCHC 34.1 % Normal 31.0-37.0 [facility] Comment on above: Performed By: #### C BC #### [address] [address] MCV (RBC) [Entitic vol] 88.2 fL Normal 80.0-100.0 [facility] Comment on above: Performed By: #### C BC #### [address] [address] Platelet 250 x10*3/mcL Normal 150-450 [facility] Comment on above: Performed By: #### C BC #### [address] [address] Platelet mean volume (Bld) [Entitic vol] 7.6 fL Normal 6.7-10.6 [facility] Comment on above: Performed By: #### C BC #### [address] [address] RBC 4.63 x10*6/mcL Normal 3.80-5.20 [facility] Comment on above: Performed By: #### C BC #### [address] [address] WBC 5.6 x10*3/mcL Normal 4.5-11.0 [facility] Comment on above: Performed By: #### C BC #### [address] [address] CMPon 05-20-2023 Albumin [Mass/Vol] 4.5 g/dL Normal 3.2-4.9 [facility] Comment on above: Performed By: #### C OMP #### [address] [address] Albumin/Globulin [Mass ratio] 1.4 {ratio} Normal 1.1-2.2 [facility] Comment on above: Performed By: #### C OMP #### [address] [address] Alk Phos 47 IU/L Normal 32-91 [facility] Comment on above: Performed By: #### C OMP #### [address] [address] ALT [Catalytic activity/Vol] 18 U/L Normal 14-54 [facility] Comment on above: Performed By: #### C OMP #### [address] [address] Anion gap [Moles/Vol] 14 mmol/L Normal 7-17 [facility] Comment on above: Performed By: #### C OMP #### [address] [address] AST [Catalytic activity/Vol] 28 U/L Normal 15-41 [facility] Comment on above: Performed By: #### C OMP #### [address] [address] Bili Total 0.8 mg/dL Normal 0.3-1.2 [facility] Comment on above: Performed By: #### C OMP #### [address] [address] Calcium [Mass/Vol] 10.1 mg/dL Normal 8.5-10.3 [facility] Comment on above: Performed By: #### C OMP #### [address] [address] Chloride [Moles/Vol] 100 mmol/L Normal 98-110 [facility] Comment on above: Performed By: #### C OMP #### [address] [address] CO2 [Moles/Vol] 27 mmol/L Normal 22-32 [facility] Comment on above: Performed By: #### C OMP #### [address] [address] Creatinine [Mass/Vol] 0.96 mg/dL Normal 0.44-1.03 [facility] Comment on above: Performed By: #### C OMP #### [address] [address] Glucose [Mass/Vol] 116 mg/dL High 70-99 [facility] Comment on above: Performed By: #### C OMP #### [address] [address] Potassium [Moles/Vol] 4.0 mmol/L Normal 3.4-4.8 [facility] Comment on above: Performed By: #### C OMP #### [address] [address] Protein [Mass/Vol] 7.8 g/dL Normal 6.5-8.1 [facility] Comment on above: Performed By: #### C OMP #### [address] [address] Sodium [Moles/Vol] 137 mmol/L Normal 133-142 [facility] Comment on above: Performed By: #### C OMP #### [address] [address] Urea nitrogen [Mass/Vol] 13 mg/dL Normal 8-26 [facility] Comment on above: Performed By: #### C OMP #### [address] [address] Urea nitrogen/Creatinine [Mass ratio] 13.5 mg/mg Normal 10.0-20.0 [facility] Comment on above: Performed By: #### C OMP #### [address] [address] [address] Brain w/o Contraston CT Brain w/o [...] or other acute finding. Radiation Dose Estimate: CTDI(mGy):0.221675 / / / kVp:120.330319 / mAs:0.241467 / / / DLP(mGy-cm):5.658326X maureen Part: Head CTDI(mGy):44.817830 / / / kVp:120.332661 / mAs:182.081404 / / / DLP(mGy-cm):813.93376 7Body Part: Head Final Dictated by: Tremayne Butler MD Dictated DT/TM: 05.20.2023 2:48 pm Signed by: Tremayne Butler MD Signed (Electronic Signature): 05.20.2023 2:50 pm (If Report Is Signed, Electronically Signed in Other Vendor System) Normal [facility] Diff Autoon 05-20-2023 Baso Absolute 0.0 x10*3/mcL Normal 0.0-0.2 [facility] Comment on above: Performed By: #### . Automated Diff #### [address] [address] Basophils/100 WBC (Bld) 0.5 % Normal 0.0-1.5 [facility] Comment on above: Performed By: #### . Automated Diff #### [address] [address] Eos Absolute 0.0 x10*3/mcL Normal 0.0-0.4 [facility] Comment on above: Performed By: #### . Automated Diff #### [address] [address] Eosinophils/100 WBC (Bld) 0.4 % Normal 0.0-5.4 [facility] Comment on above: Performed By: #### . Automated Diff #### [address] [address] Lymph Absolute 1.3 x10*3/mcL Normal 1.0-4.8 [facility] Comment on above: Performed By: #### . Automated Diff #### [address] [address] Lymphocytes/100 WBC (Bld) 22.8 % Low 27.2-40.8 [facility] Comment on above: Performed By: #### . Automated Diff #### [address] [address] [place] Absolute 0.3 x10*3/mcL Normal 0.1-1.1 [facility] Comment on above: Performed By: #### . Automated Diff #### [address] [address] Monocytes/100 WBC (Bld) 5.2 % Normal 3.7-11.9 [facility] [facility] Comment on above: Performed By: #### . Automated Diff #### [address] [address] Neutro Absolute 4.0 x10*3/mcL Normal 1.8-7.7 [facility] Comment on above: Performed By: #### . Automated Diff #### [address] [address] Neutro Auto 71.1 % High 47.2-70.8 [facility] Comment on above: Performed By: #### . Automated Diff #### [address] [address] ED Clinical Summaryon 2023 ED Clinical Summary [address] [address] ED Clinical Summary Person Information Name: Donnie Bullock/[facility]_[place] Age: 67 Years : 1955 Sex: Female PCP: Calvin ROGERS, Remigio Helm Marital Status: Phone: Race: White Ethnicity: Not or Language: Chilean Visit Reason: Psychiatric screening exam; psych screen Acuity: 2 Enc Type: Emergency Med Service: Emergency Medicine Arrival: 05/20/2023 13:12:08 Discharge: 05/20/2023 17:38:00 LOS: 000 04:26 Checkin: 05/20/2023 13:12:08 Checkout: 05/20/2023 17:38:00 Dispo Type: Home or Self Care Address: [address] [place] [address] [address] [place] [id number] Provider Notes: Diagnosis: 1:Encounter for medical screening [...] range between ( 27.2 and 40.8 ) [place] Auto: 5.2 % -- Normal range between [...] range between ( 36.0 and 46.0 ) [place] Absolute: 0.3 x10 MCH: 30.1 pg -- [...] 05/20/2023 15:28:08 Follow up: With: Address: When: [facility] With: Address: When: Remigio Zamudionunoleanna [address] [place] [phone] Business (1) Within 1 week Discharge Orders: Discharge Patient 05/20/23 17:30:00 EST, Discharge to Home, Self Patient Education Information: Anxiety Reaction [facility] Poison Help line: . [facility] Hotline: [place] Tobacco Quit Line: [place], [place]) [facility] [address]: [phone] [place], [place]) [address]: (more content not included)... Normal [facility] ED Note-Nursingon 05-20-2023 ED Note-Nursing Patients reports patient had covid 04/21/23 and most of her symptoms are stemming from that; increased memory loss, confusion, weight loss, panic attacks. Patient did take Paxlovid. Patient was seen at [facility] on Wednesday and taken off Xanax as they felt her hallucinations could be from that, and they prescribed hydroxizine. 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 Patient denies SI and HI but is frustrated that she is having these issues and is not her normal self. Electronically signed by Odalys Munroe 05/20/23 14:33 EST Normal [facility] ED Note-Physicianon 05-20-19 ED Note-Physician Chief Complaint [...] 13.9 Hct 05/20/23 15:21 40.9 MCV 05/20/23 15: 88.2 MCH 05/20/23 15:21 30.1 MCHC 05/20/23 15:21 34.1 RDW 05/20/23 15:21 13.2 Platelet 05/20/23 15:21 250 Mean Platelet Volume 05/20/23 15:21 7.6 Neutro Auto 05/20/23 15:21 71.1 High Lymph Auto 05/20/23 15:21 22.8 Low Shasta Auto 05/20/23 15:21 5.2 Eos Auto 05/20/23 15:21 0.4 Basophil Auto 05/20/23 15:21 0.5 Neutro Absolute 05/20/23 15:21 4.0 Lymph Absolute 05/20/23 15:21 1.3 Shasta Absolute 05/20/23 15:21 0.3 Eos Absolute 05/20/23 [...] finding. Signed By: Carrie ROGERS, Tremayne Mar Electronically signed by Trimble Sherri ROGERS 05/25/23 20:00 EST Normal [facility] ED Note-Physician Chief Complaint pt was sent [...] will obtain a CT head and have oncology social worker speak with the patient she was sent in by her therapist that she describes it Sign out to Dr. Hernandez at the end of my shift for disposition and oncology social worker recommendation Assessment/Plan Psychiatric screening exam (Complaint of) [...] MD / (more content not included)... Normal [facility] Ethanolon 05-20-2023 Ethanol, Plasma <10 Normal <=9 [facility] Comment on above: Result Comment: To c onvert mg/dL to g/dL, divide result by 1,000. Legal limit of intoxication is 80 mg/dL (0.08 g/dL). Performed By: #### A LC #### [address] [address] UDS Compon 05-20-2023 Creatinine [Mass/Vol] 100.2 mg/dL Normal Bl [facility] Comment on above: Performed By: #### C [id number] #### [address] [address] Ur Amph Scrn Negative Normal NEG = <1000 [facility] Comment on above: Performed By: #### C [id number] #### [address] [address] Ur Gabriela Scrn Negative Normal NEG = <200 [facility] Comment on above: Performed By: #### C [id number] #### [address] [address] Ur Benzodia Scrn Negative Normal NEG = <200 [facility] Comment on above: Performed By: #### C [id number] #### [address] [address] Ur Cannab Scrn Negative Normal NEG = <50 [facility] Comment on above: Performed By: #### C [id number] #### [address] [address] Ur Cocaine Scrn Negative Normal NEG = <300 [facility] Comment on above: Performed By: #### C [id number] #### [address] [address] Ur Methadone Scn Negative Normal NEG = <300 [facility] Comment on above: Performed By: #### C [id number] #### [address] [address] Ur Opiate Scrn Negative Normal NEG = <300 [facility] Comment on above: Performed By: #### C [id number] #### [address] [address] Ur Oxy Screen Negative Normal NEG = <100 [facility] Comment on above: Performed By: #### C [id number] #### [address] [place] [address] Ur Oxy Scrn Qnt 9 ng/mL Normal <=99 [facility] Comment on above: Performed By: #### C [id number] #### [address] [address] Ur PCP Scrn Negative Normal NEG = <25 [facility] Comment on above: Performed By: #### C [id number] #### [address] [address] UA pH 7.0 Normal 4.5 - 7.8 [facility] Comment on above: Performed By: #### C [id number] #### [address] [address] UA Spec Grav 1.013 Normal 1.003-1.035 [facility] Comment on above: Performed By: #### C D:[id number] #### [address] [address] Outside Colonoscopyon 2022 Outside Colonoscopy [id number]. 00CD:127 Normal [facility] Reminderson 01-28-2023 Reminders - From: Sarah Griffiths LPN To: GSN - Clinical; Sent: 01/28/2023 13:00:59 EDT Show up: 12/27/2032 07:00:00 EDT Subject: colonoscopy recall Due Date/Time: 01/27/2033 07:00:00 EDT Reminder/Recall Patient due for screening colonoscopy 01/27/2033. Normal [facility] Consent for Procedure/Surger yon 01-12-2023 Consent for Procedure/Surgery [id number] .00CD:127 Normal [facility] Ambulatory Visit Summaryon 0 01-08-2023 Ambulatory Visit [...] longer receiving treatment for. Carpal tunnel Normal [facility] RAD - CT Reporton 01-07-2023 RAD - CT Report [id number]#1 .00CD:127 Normal [facility] Physician Referralon 023 Physician Referral [id number] .00CD:127 Normal [facility] CBC AUTO DIFFon 09-10-2022 BASO # 0.0 103/ul Normal 0.0-0.1 [facility] Comment on above: Performed By: #### C BC #### [facility] [address] [place] [address] Dr. Jess Marie Basophils/100 WBC (Bld) 0.4 % Normal 0.2-2.0 [facility] Comment on above: Performed By: #### C BC #### [facility] [address] [place] [address] Dr. Jess Marie EO # 0.0 103/ul Normal 0.0-0.7 [facility] Comment on above: Performed By: #### C BC #### [facility] [address] [place] [address] Dr. Jess Marie Eosinophils/100 WBC (Bld) 0.4 % Critically low 0.9-7.0 [facility] Comment on above: Performed By: #### C BC #### [facility] [address] [place] [address] Dr. Jess Marie Erythrocyte distribution width (RBC) [Ratio] 12.5 % Normal 11.0-15.0 [facility] Comment on above: Performed By: #### C BC #### [facility] [address] [place] [address] Dr. Jess Marie Hematocrit (Bld) [Volume fraction] 43.1 % Normal 36.0-48.0 [facility] Comment on above: Performed By: #### C BC #### [facility] [address] [place] [address] Dr. Jess Marie Hemoglobin (Bld) [Mass/Vol] 14.0 g/dL Normal 12.0-16.0 [facility] Comment on above: Performed By: #### C BC #### [facility] [address] [place] [address] Dr. Jess Marie IG # 0.01 10e3/ul Normal 0.00-0.03 [facility] Comment on above: Performed By: #### C BC #### [facility] [address] [place] [address] Dr. Jess Marie IG % 0.2 % Normal 0.0-0.5 [facility] Comment on above: Performed By: #### C BC #### [facility] [address] [place] [address] Dr. Jess Marie LYMPH # 1.4 103/ul Normal 1.2-3.8 [facility] Comment on above: Performed By: #### C BC #### [facility] [address] [place] [address] Dr. Jess Marie Lymphocytes/100 WBC (Bld) 26.8 % Normal 20.5-60.0 [facility] Comment on above: Performed By: #### C BC #### [facility] [address] [place] [address] Dr. Jess Marie MANUAL DIFF REQ NO Normal [facility] Comment on above: Performed By: #### C BC #### [facility] [address] [place] [address] Dr. Jess Marie MCH (RBC) [Entitic mass] 29.7 pg Normal 26.7-34.0 [facility] Comment on above: Performed By: #### C BC #### [facility] [address] [place] [address] Dr. Jess Marie MCHC (RBC) [Mass/Vol] 32.5 g/dL Normal 29.9-35.2 [facility] Comment on above: Performed By: #### C BC #### [facility] [address] [place] [address] Dr. Jess Marie MCV (RBC) [Entitic vol] 91.3 fL Normal 81.0-99.0 [facility] Comment on above: Performed By: #### C BC #### [facility] [address] [place] [address] Dr. Jess Marie MONO # 0.3 103/ul Normal 0.3-0.8 [facility] Comment on above: Performed By: #### C BC #### [facility] [address] [place] [address] Dr. Jess Marie Monocytes/100 WBC (Bld) 5.2 % Normal 1.7-12.0 [facility] Comment on above: Performed By: #### C BC #### [facility] [address] [place] [address] Dr. Jess Marie NEUT # 3.5 103/ul Normal 1.4-6.5 [facility] Comment on above: Performed By: #### C BC #### [facility] [address] [address] [address] Jess Marie Neutrophils/100 WBC (Bld) 67.0 % Normal 43.0-75.0 [facility] Comment on above: Performed By: #### C BC #### [facility] [address] [place] [address] Dr. Jess Marie Platelet mean volume (Bld) [Entitic vol] 9.7 fL Normal 9.5-13.5 [facility] Comment on above: Performed By: #### C BC #### [facility] [address] [place] [address] Dr. Jess Marie PLT 230 103/ul Normal 150-450 [facility] Comment on above: Performed By: #### C BC #### [facility] [address] [place] [address] Dr. Jess Marie RBC 4.72 106/ul Normal 4.20-5.40 [facility] Comment on above: Performed By: #### C BC #### [facility] [address] [place] [address] Dr. Jess Marie WBC 5.2 103/ul Normal 4.0-11.0 [facility] Comment on above: Performed By: #### C BC #### [facility] [address] [place] [address] Dr. Jess Marie GLYCOHEMOGLOBIN A1Con 2022 ADA RECOMMENDATION SEE BELOW Normal [facility] Comment on above: Result Comment: ADA RECOMMENDED LIMIT 4.0 - 6.0 ADA THERAPEUTIC TARGET < 7.0 ACTION SUGGESTED > 7.0 Performed By: #### A 1C #### [facility] [address] [place] [address] Dr. Jess Marie Glucose [Mass/Vol] 123 mg/dL Normal [facility] Comment on above: Performed By: #### A 1C #### [facility] [address] [place] [address] Dr. Jess Marie HbA1c (Bld) [Mass fraction] 5.9 % Normal 4.5-6.2 [facility] Comment on above: Performed By: #### A 1C #### [facility] [address] [address] [address] Jess Marie LIPID PROFILEon 09-10-2022 CHOL-HDL RATIO NORM SEE BELOW Normal [facility] Comment on above: Result Comment: 3.3 - 4.4 LOW RISK 4.4 - 7.1 AVERAGE RISK 7.1 - 11.0 MODERATE RISK >11.0 HIGH RISK Performed By: #### T SH, LIVER, BMP, LIPID #### [facility] [address] [address] [address] Jess Marie Cholesterol [Mass/Vol] 267 mg/dL Critically high <=200 [facility] Comment on above: Performed By: #### T SH, LIVER, BMP, LIPID #### [facility] [address] [address] [address] Jess Marie Cholesterol in HDL [Mass/Vol] 79 mg/dL Critically high 40-60 [facility] Comment on above: Performed By: #### T SH, LIVER, BMP, LIPID #### [facility] [address] [address] [address] Jess Marie Cholesterol in LDL [Mass/Vol] 172.4 mg/dL Normal [facility] Comment on above: Performed By: #### T SH, LIVER, BMP, LIPID #### [facility] [address] [address] [address] Jess Marie Cholesterol.total/Mandie sterol in HDL [Mass ratio] 3.4 {ratio} Normal [facility] Comment on above: Performed By: #### T SH, LIVER, BMP, LIPID #### [facility] [address] [address] [address] Jess Marie HDL NORMAL > or = 60 mg/dl - LO W CARDIOVASCULAR RISK <40 mg/dl - HIGH CARDIOVASCULAR RISK Normal [facility] Comment on above: Performed By: #### T SH, LIVER, BMP, LIPID #### [facility] [address] [address] [address] Jess Marie LDL CALC NORMAL SEE BELOW Normal [facility] Comment on above: Result Comment: <100 mg/dl OPTIMAL 100 - 129 mg/dl NEAR OR ABOVE OPTIMAL 130 - 159 mg/dl BORDERLINE HIGH 160 - 189 mg/dl HIGH >190 mg/dl VERY HIGH Performed By: #### T SH, LIVER, BMP, LIPID #### [facility] [address] [address] [address] Jess Marie Triglyceride [Mass/Vol] 78 mg/dL Normal <=150 [facility] Comment on above: Performed By: #### T SH, LIVER, BMP, LIPID #### [facility] [address] [address] [address] Jess Marie VLDL CALC 15.6 mg/dL Normal [facility] Comment on above: Performed By: #### T SH, LIVER, BMP, LIPID #### [facility] [address] [address] [address] Jess Marie LIVER PROFILEon 09-10-2022 Albumin [Mass/Vol] 3.9 g/dL Normal 3.4-5.0 [facility] Comment on above: Performed By: #### T SH, LIVER, BMP, LIPID #### [facility] [address] [address] [address] Jess Marie Albumin/Globulin [Mass ratio] 0.9 {ratio} Normal [facility] Comment on above: Performed By: #### T SH, LIVER, BMP, LIPID #### [facility] [address] [address] [address] Jess Marie ALP [Catalytic activity/Vol] 61 U/L Normal 46-116 [facility] Comment on above: Performed By: #### T SH, LIVER, BMP, LIPID #### [facility] [address] [address] [address] Jess Marie ALT [Catalytic activity/Vol] 25 U/L Normal 14-59 [facility] Comment on above: Performed By: #### T SH, LIVER, BMP, LIPID #### [facility] [address] [address] [address] Jess Marie AST [Catalytic activity/Vol] 27 U/L Normal 15-37 [facility] Comment on above: Performed By: #### T SH, LIVER, BMP, LIPID #### [facility] [address] [address] [address] Jess Marie BILI, CONJUGATED 0.1 mg/dL Normal 0.0-0.2 [facility] Comment on above: Performed By: #### T SH, LIVER, BMP, LIPID #### [facility] [address] [place] [address] Dr. Jess Marie Bilirubin [Mass/Vol] 0.7 mg/dL Normal 0.2-1.0 [facility] Comment on above: Performed By: #### T SH, LIVER, BMP, LIPID #### [facility] [address] [place] [address] Dr. Jess Marie Globulin (S) [Mass/Vol] 4.2 g/dL Normal [facility] Comment on above: Performed By: #### T SH, LIVER, BMP, LIPID #### [facility] [address] [place] [address] Dr. Jess Marie Protein [Mass/Vol] 8.1 g/dL Normal 6.4-8.2 [facility] Comment on above: Performed By: #### T SH, LIVER, BMP, LIPID #### [facility] [address] [place] [address] Dr. Jess Marie PROF CHEM 8 (BAS METB)on Anion gap [Moles/Vol] 13.1 mmol/L Normal [facility] Comment on above: Performed By: #### T SH, LIVER, BMP, LIPID #### [facility] [address] [place] [address] Dr. Jess Marie Calcium [Mass/Vol] 9.6 mg/dL Normal 8.5-10.1 [facility] Comment on above: Performed By: #### T SH, LIVER, BMP, LIPID #### [facility] [address] [place] [address] Dr. Jess Marie Chloride [Moles/Vol] 105 mmol/L Normal 98-107 [facility] Comment on above: Performed By: #### T SH, LIVER, BMP, LIPID #### [facility] [address] [address] [address] Jess Marie CO2 [Moles/Vol] 28.9 mmol/L Normal 21.0-32.0 [facility] Comment on above: Performed By: #### T SH, LIVER, BMP, LIPID #### [facility] [address] [address] [address] Jess Marie Creatinine [Mass/Vol] 0.62 mg/dL Normal 0.55-1.02 [facility] Comment on above: Performed By: #### T SH, LIVER, BMP, LIPID #### [facility] [address] [address] [address] Jess Marie EGFR-AF SOLOMON ISLANDER >60 Normal >=60 [facility] Comment on above: Performed By: #### T SH, LIVER, BMP, LIPID #### [facility] [address] [address] [address] Jess Marie EGFR-NON AF [place] ISLANDER >60 Normal >=60 [facility] Comment on above: Performed By: #### T SH, LIVER, BMP, LIPID #### [facility] [address] [address] [address] Jess Marie Glucose [Mass/Vol] 112 mg/dL Critically high 74-106 [facility] Comment on above: Performed By: #### T SH, LIVER, BMP, LIPID #### [facility] [address] [address] [address] Jess Marie Potassium [Moles/Vol] 5.0 mmol/L Normal 3.5-5.1 [facility] Comment on above: Result Comment: spec imen slightly hemolyzed Performed By: #### T SH, LIVER, BMP, LIPID #### [facility] [address] [address] [address] Jess Marie Sodium [Moles/Vol] 142 mmol/L Normal 136-145 [facility] Comment on above: Performed By: #### T SH, LIVER, BMP, LIPID #### [facility] [address] [address] [address] Jess Marie Urea nitrogen [Mass/Vol] 15.0 mg/dL Normal 7.0-18.0 [facility] Comment on above: Performed By: #### T SH, LIVER, BMP, LIPID #### [facility] [address] [address] [address] Jess Marie Urea nitrogen/Creatinine [Mass ratio] 24.2 mg/mg Normal [facility] Comment on above: Performed By: #### T SH, LIVER, BMP, LIPID #### [facility] [address] [address] [address] Jess Marie TSHon 09-10-2022 TSH 1.518 uIU/mL Normal 0.358-3.740 [facility] Comment on above: Performed By: #### T SH, LIVER, BMP, LIPID #### [facility] [address] [address] [address] Jess Marie US CAROTID ART BILon [...] >70 >225 >4.0 Electronically authenticated by: HERSON REBOLELDO Date: 2022-09-10 12:26 Normal [facility] XR ABD FLAT_UPon 06-10-2022 XR ABD [...] HERSON REBOLLEDO Date: 2022-06-10 08:38 Normal [facility] Covid-19 PCR (CVDTB)on 10-16 SARS-CoV-2 (COVID-19) RNA YAYA+probe Ql (Unsp spec) Not detected Normal NOT DETECTED [facility] Comment on above: Result Comment: This test is not yet approved or cleared by the [place] FDA. When there are no FDA-approved or cleared tests available, and other criteria are met, FDA can make tests available under an emergency access mechanism called an Emergency Use Authorization (EUA). The EUA for this test is supported by the [employer] of Health and Human Service's (HHS's) declaration [...] SARS-CoV-2. Performed By: #### C [facility] #### [facility] [address] [place] [address] Dr. Jess Marie Vital Signs Date Time Vital Sign Value Performing Clinician Rogelioi conchita 09-22-2023 07:30-0400 Body temperature 98 [degF] MD Remigio Simpson Work Phone: [facility] 09-22-2023 07:30-0400 Diastolic blood pressure 60 mm[Hg] MD Remigio Simpson Work Phone: [facility] 09-22-2023 07:30-0400 Heart rate 73 /min MD Remigio Simpson Work Phone: [facility] 09-22-2023 07:30-0400 Respiratory rate 18 /min MD Remigio Simpson Work Phone: [facility] 09-22-2023 07:30-0400 SaO2% (BldA) [Mass fraction] 99 % MD Remigio Simpson Work Phone: [facility] 09-22-2023 07:30-0400 Systolic blood pressure 107 mm[Hg] MD Remigio Simpson Work Phone: [facility] 09-21-2023 08:44-0400 Body height 165.1 cm MD Remigio Simpson Work Phone: [facility] 09-20-2023 08:42-0400 Body weight 67.6 kg MD Remigio Simpson Work Phone: [facility] 09-14-2023 22:32-0400 Body temperature 98 [degF] MD Remigio Simpson Work Phone: [facility] 09-14-2023 22:32-0400 Diastolic blood pressure 70 mm[Hg] MD Remigio Simpson Work Phone: [facility] 09-14-2023 22:32-0400 Heart rate 81 /min MD Remigio Simpson Work Phone: [facility] 09-14-2023 22:32-0400 Respiratory rate 18 /min MD Remigio Simpson Work Phone: [facility] 09-14-2023 22:32-0400 SaO2% (BldA) [Mass fraction] 97 % MD Remigio Simpson Work Phone: [facility] 09-14-2023 22:32-0400 Systolic blood pressure 136 mm[Hg] MD Remigio Simpson Work Phone: [facility] 09-14-2023 19:45-0400 Body height 165.1 cm MD Remigio Simpson Work Phone: [facility] 09-14-2023 19:45-0400 Body weight 66.85 kg MD Remigio Simpson Work Phone: [facility] 06-08-2023 07:30-0500 Body temperature 97.6 [degF] [facility] 06-08-2023 07:30-0500 Diastolic blood pressure 62 mm[Hg] [facility] 06-08-2023 07:30-0500 Heart rate 75 /min [facility] 06-08-2023 07:30-0500 Respiratory rate 16 /min [facility] 06-08-2023 07:30-0500 SaO2% (BldA) [Mass fraction] 97 % [facility] 06-08-2023 07:30-0500 Systolic blood pressure 110 mm[Hg] [facility] 06-07-2023 09:00-0500 Body weight 67.5 kg [facility] 06-04-2023 10:17-0500 Body height 166.37 cm [facility] 05-25-2023 14:29-0500 Diastolic blood pressure 80 mm[Hg] DO Robert Zuly Work Phone: [facility] 05-25-2023 14:29-0500 Heart rate 91 /min DO Robert Zuly Work Phone: [facility] 05-25-2023 14:29-0500 Respiratory rate 18 /min DO Robert Zuly Work Phone: [facility] 05-25-2023 14:29-0500 SaO2% (BldA) [Mass fraction] 98 % DO Robert Zuly Work Phone: [facility] 05-25-2023 14:29-0500 Systolic blood pressure 110 mm[Hg] DO Robert Zuly Work Phone: [facility] 05-25-2023 13:06-0500 Body temperature 98.3 [degF] DO Robert Zuly Work Phone: [facility] 05-25-2023 11:38-0500 Body height 165.1 cm DO Robert Zuly Work Phone: [facility] 05-25-2023 11:38-0500 Body weight 68.1 kg DO Robert Zuly Work Phone: [facility] 01-08-2023 13:49-0400 Diastolic blood pressure 94 mm[Hg] Amor HOLLY [facility] [place] 01-08-2023 13:49-0400 Heart rate 80 /min Amor MONTOYAL General [facility] [place] 01-08-2023 13:49-0400 Respiratory rate 16 /min Amor HOLLY [facility] [place] 01-08-2023 13:49-0400 Systolic blood pressure 136 mm[Hg] Amor MONTOYAL [facility] [place] Encounters Encounter Date Encounter Type Care Provider Facility Start: 03-14-2024 End: 03-14-2024 Telephone encounter Remigio Simpson MD Work Phone: [facility] Start: 03-09-2024 End: 03-09-2024 Orders Only Remigio Simpson MD Work Phone: [facility] Start: 02-17-2024 End: 02-17-2024 Orders Only Remigio Simpson MD Work Phone: [facility] Comment on above: DALILA (generalized anx iety disorder) (CMS/HCC) (Primary Dx) Start: 02-09-2024 End: 02-09-2024 Clinical Support Georgina Sanford PT Work Phone: [facility] Comment on above: Dizziness (Primary D x); Rapidly progressive dementia (CMS/HCC); Bilateral primary osteoarthritis of knee Start: 02-02-2024 End: 02-02-2024 ambulatory HERSON URIBE Not Available Start: 01-25-2024 End: 01-25-2024 ambulatory REI COBOS Not Available Start: 12-24-2023 End: 12-24-2023 ambulatory REMIGIO SIMPSON Not Available Start: 11-04-2023 ambulatory Lionel Umana acility:[facility] Start: 11-02-2023 End: 11-02-2023 ambulatory HERSON URIBE Not Available Start: 10-13-2023 End: 10-13-2023 ambulatory SOSUKHWINDER CHANDRIKA Not Available Start: 10-04-2023 End: 10-04-2023 ambulatory REMIGIO SIMPSON Not Available Start: 09-30-2023 End: 09-30-2023 ambulatory Jasonrell Petersen Chandrika Facility:[facility] Start: 09-27-2023 End: 09-27-2023 ambulatory MONICA SILVER Not Available Start: 09-15-2023 Non-patient / Non-visit MD María Elena Simpson Work Phone: [facility] Work Phone: Start: 09-14-2023 End: 09-22-2023 Evaluation and management of inpatient MD Remigio Simpson Work Phone: [address] Work Phone: Start: 09-08-2023 End: 09-08-2023 ambulatory SOSUKHWINDER CHANDRIKA Not Available Start: 09-06-2023 End: 09-06-2023 ambulatory REI COBOS Not Available Start: 08-02-2023 End: 08-02-2023 ambulatory HERSON Richardson MARIE Not Available Start: 07-19-2023 End: 07-19-2023 ambulatory [...] Not Available Start: 05-25-2023 Non-patient / Non-visit [facility] Work Phone: Start: 05-25-2023 End: 06-08-2023 Evaluation and management of inpatient DO Robert Caruso Work Phone: [facility] Work Phone: Start: 05-20-2023 End: 05-20-2023 Emergency department patient visit Remigio Simpson MD Facility:[facility] Start: 01-27-2023 End: 01-28-2023 ambulatory Amor HOLLY Facility:CD:[id number] Start: 01-08-2023 End: 01-09-2023 ambulatory Amor HOLLY Facility: [facility] Start: 01-08-2023 End: 01-08-2023 Patient encounter procedure Amor HOLLY General Surgery Nill/Said [place] Start: 12-30-2022 ambulatory Amor HOLLY Facility : [place] Start: 09-10-2022 End: 09-11-[address] REMIGIO SIMPSON Facility:[facility] Start: 06-09-2022 End: 06-10-[address] REMIGIO SIMPSON Facility:[facility] Start: 03-12-2022 End: 03-13-[address] REMIGIO SIMPSON Facility:[facility] Start: 11-04-2021 End: 11-04-[address] REMIGIO SIMPSON Facility:[facility] Procedures Date Procedure Procedure Detail Performing Clinician Start: 12-29-2023 Mammography Remigio zacarias MD Work Phone: Start: 06-30-2023 TBH UA (CLEAN/CATCH) MICROSCOPIC IF INDICATE Remigio Simpson MD Work Phone: Start: 01-27-2023 Colonoscopy Remigio zacarias MD Work Phone: Start: 12-25-2020 Colonoscopy Amor CHOPRA Start: 06-29-2014 right carpal tunnel release Amor HOLLY Start: 06-15-2014 left carpal tunnel release Amor HOLLY Adenoid excision Amor Chaves Dilation and curetta ge of uterus Amor HOLLY Comment on above: 2005 tonsillectomy 2 Amor HOLLY Comment on above: 1958 Vaginal hysterectomy Amor HOLLY Plan of Treatment Date Care Activity Detail Author Start: 01-27-2033 Screening for malign ant neoplasm of colon [facility] Start: 12-28-2024 Screening for malign ant neoplasm of breast Mammogram [facility] Start: 06-12-2024 End: 06-12-2024 Patient encounter procedure 06/12/2024 12:00 PM EST Office Visit [facility] [address] [place] [phone] Rei Cobos [address] [place] [address] [address] [facility] Start: 05-03-2024 End: 05-03-2024 Patient encounter procedure 05/03/2024 9:45 AM EST Office Visit [facility] [address] [place] [phone] Herson Uribe, CHRIS [address] [place] [address] [facility] Start: 03-16-2024 End: 03-16-2024 ambulatory 03/16/2024 12:30 PM EDT Evaluation [facility] [address] [place] [phone] Benjamin Mcnair, PT [address] [place] [address] [facility] Start: 03-14-2024 End: 03-14-2025 Bacteria identified in Urine by Culture Urine culture (clean catch) Microbiology Routine Dysuria Expected: 03/14/2024 (Approximate), Expires: 03/14/2025 [facility] Work Phone: Comment on above: Expected: 03/14/2024 (Approximate), Expires: 03/14/2025 Start: 03-14-2024 End: 03-14-2025 Urinalysis complete panel - Urine Urinalysis with reflex microscopic (clean catch) Lab Routine Dysuria Expected: 03/14/2024 (Approximate), Expires: 03/14/2025 [facility] Comment on above: Expected: 03/14/2024 (Approximate), Expires: 03/14/2025 Start: 01-16-2024 Influenza vaccination Influenza Vacc ine (#1) [facility] Start: 09-22-2023 [facility] Start: 09-15-[address] Administration [address] prophylactic treatment [facility] Start: 09-14-[address] [facility] Start: 09-06-2023 End: 09-06-2023 Patient encounter procedure 09/06/2023 9:00 AM EDT Office Visit [facility] [address] [place] [address] Remigio Simpson MD [address] [place] [address] [facility] Start: 06-30-2023 End: 06-30-2024 Bacteria identified in Urine by Culture Urine culture (clean catch) Microbiology Routine Dysuria Expected: 06/30/2023 (Approximate), Expires: 06/30/2024 [facility] Comment on above: Expected: 06/30/2023 (Approximate), Expires: 06/30/2024 Start: 06-30-2023 End: 06-30-2024 Urinalysis complete panel - Urine Urinalysis with reflex microscopic (clean catch) Lab Routine Dysuria Expected: 06/30/2023 (Approximate), Expires: 06/30/2024 [facility] Work Phone: Comment on above: Expected: 06/30/2023 (Approximate), Expires: 06/30/2024 Start: 06-08-2023 [facility] Start: 05-26-[address] treatment [facility] Start: 05-25-[address] [facility] Start: 05-25-2023 [facility] Start: 03-09-2021 Pneumococcal Vaccine : 65+ Years (2 - PCV) Pneumococcal Vaccine: 65+ Years (2 - PCV) [facility] Start: 03-09-2021 Pneumococcal Vaccine : 65+ Years (2 of 2 - PCV) Pneumococcal Vaccine: 65+ Years (2 of 2 - PCV) [facility] Start: 1993 Screening for malign ant neoplasm of breast Mammogram [facility] Start: 1953 Medicare Annual Well ness (AWV) Medicare Annual Wellness (AWV) [facility] Start: 1955 Screening for malign ant neoplasm of colon [facility] Patient Education [facility] Work Phone: Patient referral [facility] Work Phone: Immunizations Immunization Date Immunization Notes Care Provider [facility] 02-18-2023 Influenza, Seasonal, Quadrivalent, Adjuvanted Remigio Simpson MD Work Phone: [facility] 02-18-2023 influenza virus vacc ine, unspecified formulation Remigio Simpson MD Work Phone: [facility] 03-17-2022 SARS-CoV-2 (COVID-19 ) [id number] Amor HOLLY [facility] [place] 02-22-2022 Influenza, High-dose Seasonal, Quadrivalent, Preservative Free Remigio Simpson MD Work Phone: [facility] 10-05-2021 SARS-CoV-2 mRNA (dvuhugxfxqh-fyeh-pqwpnq e) vaccine Amor HOLLY [facility] [place] 03-06-2021 SARS-CoV-2 (COVID-19 ) mRNA [id number] vax Amor NILL [facility] 02-14-2021 Influenza, Seasonal, Quadrivalent, Adjuvanted Remigio Simpson MD Work Phone: [facility] 07-30-2020 SARS-CoV-2 (COVID-19 ) mRNA [id number] vax Amor LoftyVistasL [facility] Comment on above: Result Comment: 2022: [id number] 07-09-2020 SARS-CoV-2 (COVID-19 ) mRNA [id number] vax RockBeeL [facility] Comment on above: Result Comment: 2022: TPV65 03-09-2020 pneumococcal polysaccharide vaccine, 23 valent Remigio Simpson MD Work Phone: [facility] 02-21-2020 Influenza, Seasonal, Quadrivalent, Adjuvanted Remigio Simpson MD Work Phone: [facility] 01-25-2019 influenza, high dose seasonal, preservative-free Remigio Simpson MD Work Phone: [facility] 02-15-2018 influenza, injectabl e, quadrivalent, preservative free Remigio Simpson MD Work Phone: [facility] 04-14-2017 influenza, seasonal, injectable, preservative free Remigio Simpson MD Work Phone: [facility] 03-15-2015 influenza, seasonal, injectable Remigio Simpson MD Work Phone: [facility] 03-04-2014 influenza, seasonal, injectable Remigio Simpson MD Work Phone: [facility] 07-20-2003 hepatitis B vaccine, adult dosage Remigio Simpson MD Work Phone: [facility] 03-20-2003 hepatitis B vaccine, pediatric or pediatric/adolescent dosage Remigio Simpson MD Work Phone: [facility] 02-16-2003 hepatitis B vaccine, pediatric or pediatric/adolescent dosage Remigio Simpson MD Work Phone: [facility] Payers Date Payer Category Payer Self-pay 2021 Private Health Insurance [employer] [id number] 2018 Medicare 2014 Unknown 1959 Medicare [id number] 1959 Unknown [id number] 1953 Unknown [id number] 2.16.840.1.528851.3.579.2. 593 1953 Unknown [id number] 2.16.840.1.402378.3.579.2. 593 1953 Unknown [id number] 2.16.840.1.132456.3.579.2. 593 1953 Unknown [id number] 2.16.840.1.797000.3.579.2. 593 1953 Unknown [id number] 2.16.840.1.931059.3.579.2. 727 1953 Unknown [id number] 2.16.840.1.935849.3.579.2. 727 1953 Unknown [id number] 2.16.840.1.090527.3.579.2. 727 1953 Unknown [id number] 2.16.840.1.057824.3.579.2. 196 1953 Unknown [id number] 2.16.840.1.900837.3.579.2. 1259 1953 Unknown [id number] 2.16.840.1.295950.3.579.2. 1258 1953 Unknown [id number] 2.16.840.1.167672.3.579.2. 9 1953 Unknown [id number] 2.16.840.1.763508.3.579.2. 1258 1953 Unknown [id number] 2.16.840.1.794864.3.579.2. 1258 1953 Unknown [id number] 2.16.840.1.503891.3.579.2. 1258 1953 Unknown [id number] 2.16.840.1.006848.3.579.2. 1258 1953 Unknown [id number] 2.16.840.1.691425.3.579.2. 1258 1953 Unknown [id number] 2.16.840.1.386249.3.579.2. 1258 1953 Unknown [id number] 2.16.840.1.067845.3.579.2. 1258 1953 Unknown [id number] 2.16.840.1.123082.3.579.2. 9 1953 Unknown [id number] 2.16840.1.363914.3.579.2. 1259 Unknown [id number] 2.16840.1.477025.3.579.2. 531 Unknown [id number] 2.16840.1.129226.3.579.2. 531 Unknown [id number] 2.16840.1.852241.3.579.2. 531 Unknown [id number] 2.16.840.1.534155.3.579.2. 531 Social History Date Type Detail Facility Start: 01-08-2023 End: 07-19-2023 Tobacco smoking status Never smoked tobacco (finding) [facility] Tobacco smoking status Never Gener al [facility] [place] Start: 06-09-2023 End: 09-08-2023 Sex Assigned At Female [facility] Start: 1955 Sex Assigned At Female F [facility] Start: 06-09-2023 End: 07-19-2023 Tobacco use and exposure Smokeless tobacco non-user [facility] Start: 06-09-2023 Alcohol intake Defer [facility] Start: 06-09-2023 End: 09-08-2023 History of Social function [facility] Start: 12-31-2022 Education 15 [facility] Start: 1955 Sex Assigned At Not on file [facility] Start: 02-02-2024 Alcoholic beverage intake Ex-drinker (finding) [facility] Do you belong to any clubs or organizations such as yazidism groups, unions, fraternal or athletic groups, or school groups? No [facility] Are you now , , , , never or living with a partner? [facility] How often to you hav e a drink containing alcohol? Never [facility] Do you feel stress - tense, restless, nervous, or anxious, or unable to sleep at night because your mind is troubled all the time - these days [OSQ] Rather much [facility] (I/We) worried wheth er (my/our) food would run out before (I/we) got money to buy more. Never true [facility] NEGATED: Highlighted rowStart: NINF History of tobacco use Passive smoker [facility] Goals Date Patient Goal Desired Activity /State Functional Status Date Assessment Result Facility 09-22-2023 Functional status Patient at Baseline [facility] Work Phone: 01-08-2023 Functional Status N/A General Nava rgery [facility] Mental Status Date Assessment Result Facility 09-22-2023 Cognitive function Cognitive Sta tus Patient at Baseline [facility] Work Phone: Clinical Notes 03-12-2022 to 03-14-2024 Telephone Encounter - Remigio Simpson MD - 03/14/2024 3:13 PM EDTTelephone Encounter - Remigio Simpson MD - 03/14/2024 3:13 PM EDTMumesh Simpson MD - 03/09/2024 12:35 PM EDT Note Date & Type Note Facility 03-14-2024 Telephone encounter Note Form atting of this note might be different from the original. Patient with worsening confusion and concerned of UTI. Please fax lab order to hospital. [facility] 03-14-2024 Miscellaneous Notes Formattin g of this note might be different from the original. Patient with worsening confusion and concerned of UTI. Please fax lab order to hospital. documented in this encounter [facility] 03-09-2024 History of Presen t illness Narrative Patient declining and requests PT. Please write PT order for unsteady gait, generalized weakness, and dementia. documented in this encounter [facility] 02-09-2024 History of Presen t illness Narrative Physical Therapy Physical Therapy Evaluation Patient Name: Donnie Bullock Today's Date: 02/09/2024 Please referred to scanned document from Evaluation on 02/09/24 documented in this encounter [facility] 09-22-2023 Progress note Note Date/Time September 22, 2023 9:37am [facility] [address] [place] [address] Psychiatry Progress Note Signed Patient: Donnie Bullock MR#: [id number] : 1955 Acct:[id number] Age/Sex: 67 / F Adm Date: 4 Loc: Room: 6U7935-3 Type : ADM IN Attending Dr: Sridhar [...] signed by Lionel Still MD> 09/22/23 0937 [facility] Work Phone: 1(501) 115-593005-07-2024 Progress note Author Lionel kingsley [facility] September 20, 2023 10:19pm Note Date/Time September 20, 2023 10:19p m [facility] [address] [place] [address] Psychiatry Progress Note Signed Patient: Donnie Bullock MR#: [id number] : 1955 Acct:[id number] Age/Sex: 67 / F Adm Date: 4 Loc: Room: [address] [place] [address] Type : ADM IN Attending Dr: Sridhar [...] <Electronically signed by Lionel Still MD> 09/20/[address] [facility] Work Phone: 1(941) 686-665405-05-2024 Progress note Author Sridhar Hoffman [facility] September 19, 2023 11:52am Note Date/Time September 19, 2023 11:51a m [facility] [address] [place] [address] Psychiatry Progress Note Signed Patient: Donnie Bullock MR#: [id number] : 1955 Acct:[id number] Age/Sex: 67 / F Adm Date: 4 Loc: Room: [address] [place] [address] Type : ADM IN Attending Dr: Sridhar [...] that she is out of school in [place]. Mental Status Exam: Appearance: grossly normal Mental [...] explained Documented By: Sridhar Hoffman MD 09/19/23 115 Signed By: <Electronically signed by Sridhar Hoffman MD> 09/19/[address] [facility] Work Phone: 1(759) 864-722305-04-2024 Progress note Author Sridhar Hoffman [facility] September 18, 2023 10:54am Note Date/Time September 18, 2023 10:53a m [facility] [address] [place] [address] Psychiatry Progress Note Signed Patient: Donnie Bullock MR#: [id number] : 1955 Acct:[id number] Age/Sex: 67 / F Adm Date: 4 Loc: 1S Room: [address] [place] [address] Type : ADM IN Attending Dr: Sridhar [...] By: <Electronically signed by Sridhar Hoffman MD> 09/18/231053 [facility] Work Phone: 1(201) 575-228705-03-2024 Progress note Author Sridhar Hoffman [facility] September 17, 2023 11:40am Note Date/Time September 17, 2023 11:40a m [facility] [address] [place] [address] Psychiatry Progress Note Signed Patient: Donnie Bullock MR#: [id number] : 1955 Acct:[id number] Age/Sex: 67 / F Adm Date: 4 Loc: 1S Room: [address] [place] [address] Type : ADM IN Attending Dr: Sridhar [...] signed by Sridhar Hoffman MD> 09/17/23 1140 [facility] Work Phone: 1(398) 364-307505-02-2024 Progress note Author Sridhar Hoffman [facility] September 16, 2023 12:53pm Note Date/Time September 16, 2023 12:53p m [facility] [address] [place] [address] Psychiatry Progress Note Signed Patient: Donnie Bullock MR#: [id number] : 1955 Acct:[id number] Age/Sex: 67 / F Adm Date: 4 Loc: 1S Room: 3S5594-0 Type : ADM IN Attending Dr: Sridhar [...] alternatives explained Documented By: Sridhar Hoffman MD 09/16/231251 Signed By: <Electronically signed by Sridhar Hoffman MD> 09/16/23 1253 [facility] Work Phone: 1(601) 455-560905-01-2024 History and physical note Author Sridhar Hoffman [facility] September 15, 2023 12:23pm Note Date/Time September 15, 2023 12:24p m [facility] [address] [place] [address] Psychiatry H&P Signed Patient: Donnie Bullock MR#: [id number] : 1955 Acct:[id number] Age/Sex: 67 / F Adm Date: 4 Loc: 1S Room: [address] [place] [address] Type: ADM IN Attending Dr: Sridhar Hoffman [...] reported that she thought she saw an Caodaism girl while here in the hospital. She [...] homicidality, reported suicidality Insight: fair Judgment: fair [facility] Medical History Osteopenia History of skin [...] Appearance Clear Urine pH 7.0 Ur Specific [place] 1.004 Urine Protein Negative Urine Glucose (UA) [...] signed by Sridhar Hoffman MD> 09/15/23 1223 [facility] Work Phone: 1(539) 236-581102-14-2024 Telephone encounter Note* Telephone Encounter - Remigio Simpson MD - 06/30/2023 12:26 PM EST Patient with increased confusion and concerned of UTI. Please fax orders to [facility]. [id number] Miscellaneous Notes* Telephone Encounter - Remigio Simpson MD - 06/30/2023 12:26 PM EST Patient with increased confusion and concerned of UTI. Please fax orders to [facility]. documented in [facility] [id number] Hospital Discharge instructions Additional Instructions Important Contact Information You can call [facility] at [phone] any time day or night if you have emergent questions or question regarding discharge instructions. If at any time you are feeling an increase in your psychiatric symptoms, call your physician or behavioral healthcare provider. If any time you have thoughts of harming yourself or others contact one of the following: Call 8-8 (available 07/12) Crisis Text Line (available 07/12) text 4HOPE to [phone] [facility] Line (available 8 a.m. Midnight) call [phone] ([phone]) [facility] Work Phone: 1(436) 111-877808-25-2023 NoteChief Complaint consultation for change in bowel [...] Tobacco Use:. Household tobacco (more content not included)...[facility] Comment on above:Result Comment: Electronically Signed By: AVNI ROGERS, Amor Rangel\Date and Time Signed: 01/08/23 15:31 [id number] NotePROCEDURE: XR ELBOW RT MIN 3 VIEWS HISTORY: Pain of right elbow joint since falling one year ago COMPARISON: None. FINDINGS: BONES:No fracture, acute abnormality, or significant arthropathy. SOFT TISSUES:No visible soft tissue swelling. EFFUSION:None visible. OTHER: Negative. IMPRESSION: 1. Normal examination. Electronically authenticated by: HERSON REBOLLEDO Date: 2022-03-12 18:14[facility] summary Author Lionel kingsley [facility] September 22, 2023 8:41pm Note Date/Time September 22, 2023 8:41pm [facility] [address] [place], [place] [id number] Discharge Summary Signed Patient: Donnie Bullock MR#: [id number] : 1955 Acct:[id number] Age/Sex: 67 / F Adm Date: 4 Loc: Room: [address] [place] [address]: Sridhar Hoffman MD Copies to: [...] way she was living. It was documented thatshjodie told her to hide all the knives because she thought that she was going to hurt herself. She reported that she thought she saw an Caodaism girl while here in the hospital. She [...] Instructions: Important Contact Information You can call [facility] at [phone] any time day or night if you have emergent questions or question regarding discharge instructions. If at any time you are feeling an increase inyour psychiatric symptoms, call your physician or behavioral healthcare provider. If any time you have thoughts of harming yourself or others contact one of the following: Call 8-8 (available 07/12) Crisis Text Line (available 07/12) text 4HOPE to [phone] [facility] Hope Line (available 8 a.m. Midnight) call [phone] ([phone]) Instructions: Dementia ([place]), [facility] Behavioral Health [place] Instructions, Know your Meds [...] Rx Instructions: 8am and 5pm Follow Up: [facility] [Outside] - 09/29/23 12:30 pm (A corrections caseworker will call you on 09/23/23 between 8:00am [...] 4 0828 Signed By: <Electronically signed by Loinel Still MD> 09/22/232040 [facility] Work Phone: Evaluation + Plan note No data available for this section [facility] Evaluation noteNo assessment information available [facility] Work Phone: Evaluation note* Diagnosis Onset Date Resolution Status Anxiety acute Confusion acute Depression acute Major neurocognitive disorder acute Suicidal ideation acute [facility] Work Phone: Evaluation note* Diagnosis Recurrent UTI- [...] Major neurocognitive disorder acute Suicidal ideation acute [facility] Work Phone: Evaluation note* Diagnosis DALILA (generalized anxiety disorder) (CMS/HCC)- Primary Generalized anxiety disorder documented in this encounter [facility]* Diagnosis Dizziness- Primary Dizziness and giddiness Rapidly progressive dementia (CMS/HCC) Bilateral primary osteoarthritis of knee documented in this encounter [facility]* Diagnosis Mild neurocognitive disorder- Primary MDD (major depressive disorder), recurrent episode, mild (HCC) (CMS/HCC) Generalized weakness Rapidly progressive dementia (CMS/HCC)- Primary Bilateral primary osteoarthritis of knee Breast cancer screening by mammogram Dizziness Dizziness and giddiness Dysuria- Primary documented in this encounter [facility] Author Sridhar Hoffman [facility] May 26, 2023 12:28pm Note Date/Time May 26, 2023 1 2:28pm [facility] [address] [place] [address] Psychiatry H&P Signed Patient: Donnie Bullock MR#: [id number] : 1955 Acct:[id number] Age/Sex: 67 / F Adm Date: 4 Loc: Room: [address] [place] [address] Type: ADM IN Attending Dr: Sridhar Hoffman [...] denied current suicidality Insight: fair Judgment: fair [facility] Medical History (Updated 05/26/23 @ 12:28 [...] explained Documented By: Sridhar Hoffman MD 05/26/23 4076 Signed By: <Electronically signed by Sridhar Hoffman MD> 05/26/23 7335 [facility] Work Phone: Hospital Discharge instructions No data available for this section General Surgery [place] Progress note No data available for this section General Surgery [place] Reason for referral (narrative)* Consultation (Routine) - Pending Review Specialty Diagnoses / Procedures Referred By Contac t Referred To Contact Urology Diagnoses Recurrent UTI Procedures [facility] OFFICE/OUTPATIENT NEW HIGH MDM 60 MINUTES Remigio Simpson MD [address] [place] [address] Amor Arcos MD [address] [place] [address] Referral ID Status Reason Start Date Expiration Date Visits Requested Visits Authorized [id number] Pending Review Specialty Services Required 06/29/2023 12/26/2023 [...] Anxiety Depression Major neurocognitive disorder Suicidal ideation Reason for Referral Specialty Diagnoses / Procedures Referred By Contac t Referred To Contact Diagnoses DALILA (generalized anxiety disorder) (CMS/HCC) Remigio Simpson MD [address] [place] [address] Referral ID Status Reason Start Date Expiration Date V isits Requested Visits Authorized [id number] Pending Review 02/17/2024 08/15/2024 1 1 Additional Source Comments INFORMATION SOURCE (unrecogn ized section and content) DATE CREATED AUTHOR 09/17/2022 [facility] DATE CREATED AUTHOR AUTHOR'S ORGANIZ ATION 02/17/2023 Levi Oliva [facility] DATE CREATED AUTHOR AUTHOR'S ORGANIZ ATION 05/26/2023 [facility] DATE CREATED AUTHOR AUTHOR'S ORGANIZ ATION 11/14/2023 [facility] DATE CREATED AUTHOR AUTHOR'S ORGANIZ ATION 02/04/[address] [facility] EPIC Patient Care team [...] Attending Provider Active Start: May 25, 2023 [employer] Super[employer] Relationship Specialty Start Date End Date Remigio Simpson MD PCP - General Family Medicine 05/17/22 [employer] Supervisor Relationship Specialty Start Date End Date Remigio Simpson MD PCP - General Family Medicine 05/17/22 [employer] Supervisor Relationship Specialty Start Date End Date Remigio Simpson MD PCP - General Family Medicine 05/17/22 Team Status: Active Member Role Status Dates Remigio Simpson MD Primary Care Provider Active S tart: September 14, 2023 Good Garcia DO Emergency Provider Active St art: September 14, 2023 Sridhar Hoffman MD Admit Provider, Attending Provider Active Start: September 14, 2023 [employer] Supervisor Relationship Specialty Start Date End Date Remigio Simpson MD [address] [place] [phone] PCP - General Family Medicine 07/19/23 [employer] Supervisor Relationship Specialty Start Date End Date Remigio Simpson MD [address] [place] [phone] PCP - General Family Medicine 07/19/23 [employer] Supervisor Relationship Specialty Start Date End Date Remigio Simpson MD [address] [place] [phone] PCP - General Family Medicine 07/19/23 [employer] Supervisor Relationship Specialty Start Date End Date Remigio Simpson MD [address] [place] [phone] PCP - General Family Medicine 07/19/23 Goals (unrecognized section and content) Goals may [...] BE BASED ON THE PRIMARY CLINICAL RECORDS. [facility] [employer] [facility]. provides no warranty or guarantee of the accuracy or completeness of information in this document.
[2024-03-15 10:22] LABS: Bilirubin Urine NEGATIVE (NEGATIVE); Blood Urine SMALL (NEGATIVE); Clarity Urine CLEAR (CLEAR); Glucose Urine UA NEGATIVE (NEGATIVE); Ketones Urine TRACE mg/dL (NEGATIVE); Leukocyte Esterase Urine NEGATIVE (NEGATIVE); Nitrite Urine NEGATIVE (NEGATIVE); Protein Urine TRACE mg/dL (NEG/TRACE); Specific Gravity Urine 1.025 (1.005-1.025); Urobilinogen Urine 0.2 EU/dL (0.2-1.0)
[2024-03-15] MEDS: 0.9 % SODIUM CHLORIDE 1,000 ML 1000 ML IV (10:22)
[2024-03-15 10:29] LABS: Alanine Aminotransferase 21 U/L (14-59); Albumin Globulin Ratio 0.9; Albumin Level 3.2 g/dL (3.4-5.0); Alkaline Phosphatase 56 U/L (46-116); Anion Gap 10.9; Aspartate Amino Transferase 25 U/L (15-37); Bilirubin Total 0.8 mg/dL (0.2-1.0); Calcium 9.1 mg/dL (8.5-10.1); Carbon Dioxide 30.2 mmol/L (21.0-32.0); Chloride 102 mmol/L (98-107); Estimated GFR (African America >60 (>=60 mL/min/1.73m^2); Estimated GFR (Non-African Ame >60 (>=60 mL/min/1.73m^2); Globulin 3.6 g/dL; Glucose 107 mg/dL (74-106); Potassium 4.1 mmol/L (3.5-5.1); Sodium 139 mmol/L (136-145); Total Protein 6.8 g/dL (6.4-8.2); Troponin I High Sensitivity 16.9 pg/mL (4.0-51.3)
[2024-03-15 10:34] LABS: Color Urine DK YELLOW (YELLOW); Urine Microscopic Indicated YES
[2024-03-15 10:43] LABS: Bacteria Urine TRACE #/HPF (NONE SEEN); Cast Seen? NONE SEEN #/LPF (NONE SEEN); Crystals Seen? None Seen #/HPF (None Seen); Mucus Urine TRACE (NONE SEEN); Squamous Epithelial Cell Urine RARE #/LPF (NONE/RARE); Urine Culture Indicated NO; WBC Urine 0-2 #/HPF (NONE SEEN)
--- NOTE | 2024-03-15 13:57 | ECG_ITS ---
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
== END 2024-03-15 11:38 | disposition home or self-care (01) ==
PROVIDERS: Emergency Provider Emergency Medicine Emergency Medical Services; PCP Family Medicine
DX: G31.83 Neurocognitive disorder with Lewy bodies (principal); F02.80 Dementia in other diseases classified elsewhere, unspecified severity, without behavioral disturbance, psychotic disturbance, mood disturbance, and anxiety; Z87.440 Personal history of urinary (tract) infections; Z90.710 Acquired absence of both cervix and uterus; Z90.89 Acquired absence of other organs
CPT/HCPCS: 36415; 70450; 80053; 81001; 84484; 85025; 93005; 99284

== ENCOUNTER 2024-04-12 10:35 | Outpatient (OUT) | payer MEDICARE, OTHER, SELFPAY ==
[2024-04-12 11:00] LABS: Bilirubin Urine NEGATIVE (NEGATIVE); Blood Urine NEGATIVE (NEGATIVE); Clarity Urine CLEAR (CLEAR); Color Urine DK. YELLOW (YELLOW); Glucose Urine UA NEGATIVE (NEGATIVE); Ketones Urine 15 mg/dL (NEGATIVE); Leukocyte Esterase Urine NEGATIVE (NEGATIVE); Nitrite Urine NEGATIVE (NEGATIVE); Protein Urine TRACE mg/dL (NEG/TRACE); Specific Gravity Urine >=1.030 (1.005-1.025); Urine Microscopic Indicated NO; Urobilinogen Urine 0.2 EU/dL (0.2-1.0); pH Urine 5.5 (5.0-9.0)
== END 2024-04-12 10:36 | disposition home or self-care (01) ==
LOC: LAB 10:35
PROVIDERS: PCP Family Medicine; Visit Provider Family Medicine
DX: R30.0 Dysuria (principal)
CPT/HCPCS: 81003; 87086

== ENCOUNTER 2024-05-26 12:13 | Outpatient (REF) | payer MEDICARE, OTHER, SELFPAY ==
--- OUTSIDE RECORDS SUMMARY | 2024-05-26 12:29 | XMS_ITS | CCD ---
Author Organization [facility] Care Team Providers Care Electrolysis Engineer Name Role Phone CALVIN, DR REMIGIO Richardson [...] Consulting Unavailable NADERER, REMIGIO Primary Care Physician [phone] AVNI, Amor Pollock Attending Unavailable NADERER, REMIGIO Referring Unavailable NILL, Amor Pollock Attending Unavailable NADERER, REMIGIO Referring Unavailable NILL, Amor Pollock Attending Unavailable Remigio Simpson MD Primary Care Unavail vinay Gilbert MD, Anuj Orta Attending Rachelv DO Robert Joseph Emergency Provider MD Remigio Simpson Primary Care Provider [phone] MD Sridhar Hoffman Admit Provider MD Sridhar Hoffman Attending Provider Remigio Simpson MD Primary Care Provider [phone] MD Remigio Simpson Primary Care Provider DO Good Garcia Emergency Provider Dalton, MD Sridhar Admit Provider MD Dalton Sridhar Attending Provider [phone] Remigio Simpson MD Primary Care Provider Sridhar Hoffman Attending Unavailable Dalton, Sridhar Admitting Unavailable Naderer, Remigio Primary Care Unavailable Rei Cobos Attending Unavailab le Rei Cobos Admitting Unavailab le Naderer, Remigio Primary Care Unavailable Lionel Still Attending Unavailab le Cheko, Lionel Admitting Unavailab le Naderer, Remigio Primary Care Unavailable Lionel Still Attending Unavailab Remigio Douglas Primary Care Unavailable Dalton, Sridhar Admitting Unavailable Rei Cobos DO Unavailable Unavailable Primary Care Provider UnavailSERA Joseph Attending Unavailable BARRINGTONEREMaris, REMIGIO Attending Unavailable SHAIKH SALCEDO Attending Unavailable RUS, HERSON Richardson Attending Unavailable CHANDRIKA, REI Attending Unavailable CHANDRIKA, REI Referring Unavailable CARMELOBEMONICA HUDSON Attending Unavailable CHANDRIKA, REI Referring Unavailable CHANDRIKA, REI Attending Unavailable RUSHER, HERSON Richardson Attending Unavailable NADERER, REMIGIO Attending Unavailable CHANDRIKA, ERI Attending Unavailable RUSHER, HERSON Richardson Attending Unavailable FLORALEXANDRIA GAMBLE Attending Unavailable NADERER, REMIGIO Referring Unavailable MILLER, DENEEN Attending Unavailable NADERER, REMIGIO Referring Unavailable CHANDRIKA, REI Attending Unavailable FLORALEXANDRIA BHATT Attending Unavailable NADERER, REMIGIO Referring Unavailable TATTERSALLBETI Attending Unavailable NADERER, REMIGIO Referring Unavailable MILLER, DENEEN Attending Unavailable NADERER, REMIGIO Referring Unavailable FLORALEXANDRIA BHATT Attending Unavailable NADERER, REMIGIO Referring Unavailable TATTERSALL, BETI Attending Unavailable NADERER, REMIGIO Referring Unavailable TATTERSALL, BETI Attending Unavailable NADERER, REMIGIO Referring Unavailable MILLER, DENEEN Attending Unavailable NADERER, REMIGIO Referring Unavailable TATTERSALL, BETI Attending Unavailable NADERER, REMIGIO Referring Unavailable MILLER, DENEEN Attending Unavailable NADERER, REMIGIO Referring Unavailable MILLER, DENEEN Attending Unavailable NADERER, REMIGIO Referring Unavailable RUSHER, HERSON Richardson Attending Unavailable MILLERDENEEN Attending Unavailable NADERER, REMIGIO Referring Unavailable Allergies Allergy Classification Reported Allergen(s) Allergy Type Date of Onset Reaction(s) Facility (20 sources) Alprazolam Propensity to adverse reactions 4 Hallucinations, Unknown [facility] Medications Current Medications Medication Drug Class(es) Dates Sig (Normalized) Sig (Original) cefdinir 300 mg oral capsule (5 sources) Cephalosporin Antibacterial Start: 04-12-2024 End: 04-22-2024 take 1 capsule by mouth in the morning cefdinir (Omnicef) 300 MG capsule Indications: Urinary tract infection without hematuria, site unspecified Take 1 capsule (300 mg) by mouth in the morning and 1 capsule (300 mg) before bedtime. Do all this for 10 days. 20 capsule 04/12/2024 04/22/2024 Active diazePAM 2 mg oral tablet (20 sources) Benzodiazepine Start: 02-17-2024 End: 02-27-2024 take 1 tablet by mouth four times daily as needed for anxiety diazePAM (Valium) 2 MG tablet Indications: DALILA (generalized anxiety disorder) (CMS/[facility]) Take 1 tablet (2 mg) by mouth 4 (four) times a day as needed for anxiety for up to 10 days 40 tablet 02/17/2024 Active docusate sodium 50 mg / sennosides, shelter 8.6 mg oral tablet (20 sources) take 1 tablet by mouth three times daily SENEXON-S 8.6-50 mg per tablet Take 1 tablet by mouth three times a day. Active take 1 tablet by mouth once nimo y senna-docusate sodium (Senokot-S) 8.6-50 MG tablet Take 1 tablet by mouth Daily Active donepezil hydrochloride 5 mg oral tablet (1 source) Start: 05-22-2024 take 1 tablet by mouth once daily after breakfast donepezil (ARICEPT) 5 mg tablet Take 1 tablet by mouth daily after breakfast. 30 tablet 3 05/22/2024 Active haloperidol 1 mg oral tablet (20 sources) Typical Antipsychotic Start: 01-11-2024 haloperidol (Haldol) [...] September 22, 2023 10:00am 8am and 5pm haloperidol (CAROLINA DOL) 1 mg tablet Take 1 mg by mouth two times a day. September take 0.5mg at 6pm. PRN: 1mg every 4.5 hours Active hydrOXYzine hydrochloride 25 mg oral tablet (20 sources) Antihistamine Start: 02-14-2024 take 1 tablet by mouth four times daily as needed for anxiety hydrOXYzine HCl (Atarax) 25 MG tablet Indications: DALILA (generalized anxiety disorder) (CMS/HCC) TAKE 1 TABLET (25 MG) BY MOUTH 4 (FOUR) TIMES A DAY NEEDED FOR ANXIETY 360 tablet 2 02/14/2024 Active Start: 09-14-2023 take 1 tablet by palmer th twice daily hydrOXYzine HCl (ATARAX) 25 mg tablet Take 25 mg by mouth two times a day. 09/14/2023 Active Start: 05-25-2023 take 1 tablet by palmer th four times daily as needed for anxiety hydrOXYzine HCl (Atarax) 25 MG tablet Indications: DALILA (generalized anxiety disorder) (CMS/HCC) TAKE 1 TABLET (25 MG) BY MOUTH 4 (FOUR) TIMES A DAY NEEDED FOR ANXIETY 360 tablet 2 05/25/2023 Active lactulose 667 mg/ml oral solution (20 sources) Osmotic Laxative Start: 04-17-2024 End: 04-17-2025 take 10 g by mouth at bedtime lactulose (Chronulac) 10 GM/15ML solution Indications: Constipation, chronic Take 15 mL (10 g) by mouth in the morning and 15 mL (10 g) before bedtime. 900 mL 11 04/17/2024 04/17/2025 Active Start: 12-16-2023 take 10 g by mouth at bedtime lactulose (Chronulac) 10 GM/15ML solution Take 10 g by mouth at bedtime 12/16/2023 Active Start: 09-15-2023 take 1 mL by mouth twice daily Lactulose Active 30 ML PO Twice daily September 15, 2023 12:00am mirtazapine 15 mg oral tablet (20 sources) Start: 10-25-2023 take 1 tablet by mouth at bedtime mirtazapine (Remeron) 15 MG tablet Indications: MDD (major depressive disorder), recurrent episode, mild (HCC) (CMS/HCC) TAKE 1 TABLET BY MOUTH AT BEDTIME 90 tablet 2 02/28/2024 Active Start: 06-08-2023 End: 06-29-2023 take 7.5 mg by mouth once daily at bedtime Mirtazapine Active 7.5 MG PO Daily at bedtime June 08, 2023 1:00am morphine sulfate 20 mg/ml oral solution (16 sources) Opioid Agonist Start: 09-14-2023 Morphine Orin ntrate Active 5 MG PO EVERY 1-2 HOURS September 14, 2023 12:00am Start: 07-24-2023 End: 03-20-2024 morphine 100 MG/5ML concentr ated solution every 1 (one) hour if needed 07/24/2023 03/20/2024 Discontinued (Therapy completed) ondansetron 4 mg disintegrating oral tablet (3 [...] Start: 09-14-2023 take 1 capsule by mo [facility] twice daily Sennosides (Senna) 8.6 mg capsule Active 8.6 MG PO Twice daily September 14, 2023 12:00am wheat dextrin 3000 mg powder for oral solution (1 source) Start: 01-08-2023 Benefiber 100% oral powder as needed for constipation, Refill(s) 0 Start Date: 01/08/23 Status: Ordered Completed/Discontinued Medications Medication Drug Class(es) Dates Sig (Normalized) Sig (Original) melatonin 10 mg oral capsule (16 sources) Start: 12-07-2023 End: 03-20-2024 take 1 capsule by mouth at bedtime Melatonin 10 MG capsule Indications: Primary insomnia Take 10 mg by mouth at bedtime 30 capsule 5 12/07/2023 03/20/2024 Discontinued (Therapy completed) Start: 09-14-2023 take 10 mg by mouth once daily at bedtime Melatonin Active 10 MG PO Daily at bedtime September 14, 2023 12:00am meloxicam 7.5 mg oral tablet (8 sources) [...] Generalized abdominal pain 01-04-2023 Episodic Anxiety disorders (20 sources) Generalized anxiety disorder; Translations: [Anxiety] Onset: 3 01-04-2023 Chronic Blindness and vision defects (7 sources) Visual hallucinations; Translations: [Visual hallucinations] Onset: 4 04-19-2024 Episodic Cardiac dysrhythmias (20 sources) Paroxysmal supraventricular tachycardia; Translations: [Paroxysmal supraventricular tachycardia] Onset: 2 01-04-2023 Chronic Delirium, dementia, and amnestic and other cognitive disorders (20 sources) Dementia; Translations: [Unspecified dementia without behavioral disturbance] Onset: 4 06-01-2023 Chronic Diabetes mellitus without complication (5 sources) Impaired fasting glucose; Translations: [Impaired fasting glycemia] Onset: 3 Episodic Disorders of lipid metabolism (20 sources) Hyperlipidemia, unspecified; Translations: [Dyslipidemia] Onset: 3 01-04-2023 Chronic Esophageal disorders (1 source) Gastroesophageal reflux disease 01-04-2023 Chronic Comment on above: diet controlled Genitourinary symptoms and ill-defined conditions (3 sources) Dysuria; Translations: [Dysuria] 06-30-2023 Episodic Malaise and fatigue (20 sources) Other fatigue; Translations: [Asthenia] Onset: 3 06-09-2023 Episodic Miscellaneous mental health disorders (20 sources) Primary insomnia; Translations: [Primary insomnia] Onset: 4 10-13-2023 Chronic Mood disorders (20 sources) Depressive disorder; Translations: [Depression] Onset: 4 05-25-2023 Chronic Mood disorders (1 source) Mood disorders; Translations: [Depression, unspecified] Onset: 4 Mycoses (4 sources) Onychomycosis due to dermatophyte ; Translations: [Tinea unguium] 02-02-2024 Episodic Nutritional deficiencies (20 sources) Moderate protein energy malnutrition; Translations: [Moderate protein-calorie malnutrition] Onset: 4 09-07-2023 Chronic Osteoarthritis (20 sources) Primary gonarthrosis, bilateral; Translations: [Bilateral primary osteoarthritis of knee] Onset: 4 12-24-2023 Chronic Other aftercare (1 source) Other half-way (current) drug therapy; Translations: [OTH SHELTER CURRENT DRUG THERAPY] Onset: 3 Episodic Other bone disease and musculoskeletal deformities (1 source) Osteopenia 01-04-2023 Episodic Other connective tissue disease (8 sources) Pain in toe; Translations: [Pain in right toe(s)] 02-02-2024 Episodic Other gastrointestinal disorders (5 sources) Other constipation; Translations: [OTHER CONSTIPATION] Onset: 3 Episodic Other gastrointestinal disorders (2 sources) Altered bowel function; Translations: [Change in bowel habit] Onset: 3 Episodic Other hereditary and degenerative nervous system conditions (20 sources) Mild cognitive disorder ; Translations: [Mild cognitive impairment, so stated] Onset: 4 06-09-2023 Chronic Other nervous system disorders (20 sources) Walking disability; Translations: [Difficulty in walking, not elsewhere classified] Onset: 4 07-19-2023 Chronic Other nervous system disorders (7 sources) Secondary parkinsonism; 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, unspecified] Onset: 4 04-19-2024 Chronic Other nervous system disorders (20 sources) Abnormal gait; Translations: [Unsteadiness on feet] [...] DNA-based colorectal cancer screening positive 12-03-2020 Episodic Other skin disorders (4 sources) Dystrophia unguium; Translations: [Nail dystrophy] 02-02-2024 Episodic Residual codes; unclassified (7 sources) REM sleep behavior disorder; Translations: [REM sleep behavior disorder] Onset: 4 04-19-2024 Chronic Residual codes; unclassified (1 source) Family history [...] Spondylosis; intervertebral disc disorders; other back problems (20 sources) Cervical disc disorder; Translations: [Degeneration of cervical intervertebral disc] Onset: 01-04-2023 Chronic Suicide and intentional self-inflicted injury (6 sources) Suicidal thoughts; Translations: [Suicidal ideations] 05-25-2023 Episodic Unclassified (3 sources) CONTACT W/AND (SUSP) EXPOS COVID-19; Translations: [CONTACT W/AND (SUSP) EXPOS COVID-19] Onset: Past or Other Problems Problem Classification Problem Date Documented Da te Episodic/Chronic Conditions associated with dizziness or vertigo (20 sources) Dizziness and giddiness; Translations: [Benign paroxysmal positional vertigo] Onset: 09-16-2022 12-31-2022 Episodic Other aftercare (20 sources) Patient encounter status; Translations: [Other half-way (current) drug therapy] Onset: 05-11-2023 05-11-2023 Episodic Other aftercare (20 sources) Long-term current use of drug therapy; Translations: [Other terminologist (current) drug therapy] Onset: 05-11-2023 05-11-2023 Episodic Other circulatory disease (20 sources) Orthostatic hypotension; Translations: [Orthostatic hypotension] Onset: 05-28-2023 01-04-2023 Episodic Other connective tissue disease (20 sources) Bursitis of olecranon of right elbow; Translations: [Olecranon bursitis, right elbow] Onset: 05-28-2023 05-28-2023 Episodic Other gastrointestinal disorders (20 sources) Chronic constipation; Translations: [Other constipation] Onset: 05-28-2023 01-04-2023 Episodic Other infections; including parasitic (20 sources) Personal history of other infectious and parasitic diseases; Translations: [Personal history of COVID-19] Onset: 07-24-2023 08-19-2023 Episodic Other lower respiratory disease (20 sources) Dyspnea; Translations: [Dyspnea, unspecified] Onset: 09-07-2023 09-07-2023 Episodic Other nervous system disorders (20 sources) Carpal tunnel syndrome; Translations: [Carpal tunnel syndrome, unspecified upper limb] Onset: 05-28-2023 Resolved: 12-24-2023 06-15-2014 Chronic Other nervous system disorders (20 sources) Metabolic encephalopathy; Translations: [Metabolic encephalopathy] Onset: 07-24-2023 Resolved: 12-24-2023 12-24-2023 Chronic Other nervous system disorders (20 sources) Impairment of balance; Translations: [Other abnormalities of gait and mobility] Onset: 09-07-2023 09-07-2023 Episodic Other non-traumatic joint disorders (4 sources) Pain in right elbow; Translations: [PAIN IN RIGHT ELBOW] Onset: 03-12-2022 Episodic Residual codes; unclassified (2 sources) Disorientation, unspecified; Translations: [Unspecified psychosis] Onset: 05-25-2023 05-25-2023 Episodic Residual codes; unclassified (20 sources) Family history of stroke; Translations: [Family history of stroke] Onset: 09-07-2023 09-07-2023 Episodic Spondylosis; intervertebral disc disorders; other back problems (20 sources) Neck pain; Translations: [Cervicalgia] Onset: 12-31-2022 Resolved: 12-24-2023 06-29-2023 Episodic Unclassified (1 source) CONTACT W/AND (SUSP) EXPOS COVID-19; Translations: [CONTACT W/AND (SUSP) EXPOS COVID-19] Onset: 11-04-2021 Unclassified (1 source) Entire carpal canal (body structure) 01-04-2023 Comment on above: had left done Urinary tract infections (20 sources) Recurrent urinary tract infection; Translations: [Urinary tract infection, site not specified] Onset: 06-29-2023 06-29-2023 Episodic Results Test Name Value Interpretation Reference Range Facility [facility] 04-25-2024 [facility] Telephone ([facility]) DONNIE BULLOCK ([id number]) 1955 F Date Time Provider Department 04/25/24 SERA KILLIANNga During your visit today, we recorded the following information about you: Sera Killian APRN.[facility] 04/25/2024 5:05 PM Signed Confidential email correspondence sent to spouse re: updated Haldol taper dosing as follows: Reduce to Haldol 1 mg at bedtime for two weeks, then, Reduce to Haldol 0.5 mg (1/2 of 1mg tab) at bedtime for two weeks - then stop altogether. Sera Killian APRN.[employer] Allergies As of Date: 04/25/2024 (No Known Allergies) Date Reviewed: 04/19/2024 Reviewed by: Francie Lira RN - Fully Assessed Reason for Visit: Medication Follow-up [270] Prescriptions as of 04/25/2024 - haloperidol (HALDOL) 1 mg tablet Take 1 mg by mouth two times a day. May take 0.5mg at 6pm. PRN: 1mg every 4.5 hours - hydrOXYzine HCl (ATARAX) 25 mg tablet Take 25 mg by mouth two times a day. - mirtazapine (REMERON) 15 mg tablet Take 15 mg by mouth daily at bedtime. - SENEXON-S 8.6-50 mg per tablet Take 1 tablet by mouth three times a day. 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 Pt is saying that she wants to go see her mom and dad ( states that he realizes that this is normal with dementia), but this topic has increased significantly. is not sure if the patient remembers that her parents are because they have talked about them being in heaven and the patient does not appear upset when this is discussed. The spouse has asked pt if she suicidal ideation, and patient replies no and that she wants to see her mom and dad still. Per , pt is on only PM dose haloperidol. Per , he has given evening dose at 6pm for last 5 or 6 months so he is not giving it at bedtime. stated that patient just got over UTI - finished antibiotics on Wednesday. He does not suspect that the cause of these changes is infection. New for patient - she is unable to find bathroom in her home of 25 years. We discussed communication strategies for dealing with pt's delusions - changing topic, not arguing about reality, and not telling patient that her parents are to minimize repeated grieving. Carlos expressed understanding and had no other questions/concerns at this time. Forwarded message to provider to review and advise. [address] Natasha N, RN 04/26/2024 3:12 PM Signed Call placed to to resume original taper of haloperidol from OV on 04/19 per order of provider: he would begin to give her 0.5 mg in AM and 1 mg at HS-- and continue with my original taper regimen. Reviewed taper with and encouraged him to call with any questions or concerns that arise. [address] Natasha N, RN 05/01/2024 3:05 PM Signed Per provider request, I called and left requesting confirmation if the release of information that was faxed was signed. Requested a call back and left nurse line number. Francie Lira RN Allergies As of Date: 04/25/2024 (No Known Allergies) Date Reviewed: 04/19/2024 Reviewed by: Francie Lira RN - Fully Assessed Prescriptions as of 05/01/2024 - haloperidol (HALDOL) 1 mg tablet Take 1 mg by mouth two times a day. May take 0.5mg at 6pm. PRN: 1mg every 4.5 hours - hydrOXYzine HCl (ATARAX) 25 mg tablet Take 25 mg by mouth two times a day. - mirtazapine (REMERON) 15 mg tablet Take 15 mg by mouth daily at bedtime. - SENEXON-S 8.6-50 mg per tablet Take 1 tablet by mouth three times a day. 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 I told him that Sera noted that she would consider it when the patient is off of the Haloperidol. I asked him to please give us an update when she is finishing the taper and off of the Haloperidol. I also encouraged him to call if there are any other questions or concerns. Francie Lira RN Allergies As of Date: 04/20/2024 (No Known Allergies) Date Reviewed: 04/19/2024 Reviewed by: Francie Lira RN - Fully Assessed Prescriptions as of 04/21/2024 - haloperidol (HALDOL) 1 mg tablet Take 1 mg by mouth two times a day. May take 0.5mg at 6pm. PRN: 1mg every 4.5 hours - hydrOXYzine HCl (ATARAX) 25 mg tablet Take 25 mg by mouth two times a day. - mirtazapine (REMERON) 15 mg tablet Take 15 mg by mouth daily at bedtime. - SENEXON-S 8.6-50 mg per tablet Take 1 tablet by mouth three times a day. 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] 04/19/2024 Visual hallucinations [R44.1] 04/19/2024 Encounter Status:Closed by RFANCIE LIRA on 04/21/24 [facility] 04-19-2024 [facility] Office Visit ([facility] ) DONNIE BULLOCK ([id number]) 1955 F Date Time Provider Department 04/19/24 12:30 PM [facility] During your visit today, we recorded the following information about you: Pulse Blood pressure Weight 76/minute 129/83 73.8 kg Sera Killian, TENNIS COACH.[employer] 04/19/2024 5:34 PM Signed Date: April 19, 2024 DONNIE [address]OCK [address] [place] [address] [facility] INITIAL PATIENT EVALUATION Reason for Consult: Lewy Body Dementia-here for a 2nd opinion I had the pleasure of seeing this 68 year old year old female at the [facility]. The patient is referred by SELF. Patient is accompanied by and information obtained from Spouse Carlos and son Geoff and available records in the system. Background and History of Present Illness: Symptoms Cognition Memory problems include short-term memory impairment, long-term memory impairment, impaired learning ability and forgetting events. Impaired comprehension and difficulty coming up with common words contribute to communication problems. She appears unable perceive objects. There are episodes of confusion (Moments of awareness; confusion after waking). In daily life, she needs assistance with instrumental ADL?s. Behavior Mood is described as anxious. She is sleeping more. Behavioral aberrations: - delusions and visual hallucinations - misidentification not recognizing spouse Physical/Motor The patient has had unsteadiness. There is urinary incontinence. Functional Assessment Staging (FAST) 5=Requires assistance in choosing proper clothing to wear for the day, season, or occasion, e.g., patient may wear the same clothing repeatedly, unless supervised. Here today for a second opinion regarding diagnosis of LBD. Followed by neurology provider Dr. Rei Cobos at [facility], followed since August 2023. No cognitive testing on file. Formerly followed by psychiatry for LBD/anxiety. Last seen in September 2023. Care was established following her inpatient [facility] hospitalization in April 2023/May 2023. No family history of dementia or Parkinson's Disease. Per spouse and son report: -Lumbar puncture at [facility] September 30, 2023. Work up completed for possible rapidly progressing dementia. -Prior brain imaging (MRI/CT at outside medical systems). -Hallucinations daily (asks her spouse when is Vimal going to come home? ; sees babies; puppies, squirrel on spouse's shoulder, gives sign of peace to people she sees in her home). -Recently discharged from [facility] services 4 months ago. Also previously had palliative care, no longer receiving this care. Onset and Progression: 2 years ago mild trouble with names of grandchildren. Changes noted following COVID dx (April 21 2023), spouse speaks of the pt being found wandering outside, confused. A few days after she did not recognize her spouse. She expressed not wanting to live, she was admitted to [facility] for further evaluation. Mobility changes at this time as well, previously walked regularly. Shuffling of feet, not swinging her arms. VH and misidentification of spouse also started at this time. Previous and Current treatment: Haldol 1 mg BID and as needed; Hydroxyzine; Melatonin; Mirtazapine; THC Functional Abilities ADL'S: Bathing:Independent vs need cuing Dressing: Needs cuing-puts spouse's clothing on Eating: Independent Toileting: Independent Ambulation: independent Falls in last 12 months:Yes Assistive device: cane IADL's Meal prep/Cooking: Needs assistance Shopping: Needs assistance Housekeeping: Needs assistance Laundry: Needs assistance Medication mgt.: Needs assistance Pill box in use? Overseen by spouse Telephone: Needs cuing Finances: Needs assistance Who does? Spouse always has Transportation: Needs assistance-stopped in April 2023 Is the patient driving: No Living Situation: With spouse Agencies involved: none currently-previously followed by [facility] Special Concerns: Hallucinations/Delusi ons: Yes: refers to seeing a woman with a black ribbon Believes parents are still living Sees babies, animals, people, other Vimal Misidentifies spouse Sleep: RBD No hx of falling OOB, no arm or leg movement reported, sleeping more-needs daytime naps 1.5 hours; talks/yells out in sleep; appears to act out dreams; confusion upon waking. Emergency: unrealistic plan: states would go to the neighbor's home Are there guns in the home? Yes-locked Home alone: Yes, occasionally. Medical Alert: No-information provided. Advanced Directives Durable POA: Yes Financial POA: Spouse will verify-information reviewed Consult [facility] SCREEN EXAMINER if not completed: role introduced, reviewed national organizations offering support, provided co (more content not included)... Normal [facility] UA (CLEAN/CATCH) MICROSC OPIC IF INDICATEon 04-12-2024 BILIRUBIN URINE Negative NEGATIVE [facility] BLOOD URINE Negative NEGATIVE [facility] Clarity (U) CLEAR CLEAR [facility] Color (U) DK. YELLOW YELLOW [facility] GLUCOSE URINE UA Negative NEGATIVE mg/dL [facility] Interpretation and review of laboratory results Abnormal [facility] Ketones Ql (U) 15 mg/dL Abnormal NEGATIVE [facility] Leukocyte esterase Test strip Ql (U) Negative NEGATIVE [facility] NITRITE URINE Negative NEGATIVE [facility] pH (U) 5.5 [pH] 5.0 - 9.0 [facility] PROTEIN URINE TRACE NEG/TRACE mg/dL [facility] SPECIFIC GRAVITY URINE >=1.030 Abnormal 1.005 - 1.025 [facility] URINE MICROSCOPIC INDICATED NO [facility] UROBILINOGEN URINE 0.2 EU/dL 0.2 - 1.0 EU/dL [facility] Aerobic Cultureon 09-30-2023 Aerobic Culture Comment tube [...] RESISTANT TO ALL B-LACTAM DRUGS. PERFORMED BY: [place] [address] PATHOLOGIST BURN OUT TENDER LACE ELE SPRING M.D. Normal [facility] Comment on above: Performed By: #### C SFCCDIFF, CSF GLU, AERC, GS, CSF TP, CSF PCR PANEL #### [facility] [address] [place] [address] [place] Autoimmune Encephalitis Prof on 09-30-2023 Autoimmune Encephalitis Prof Normal [facility] Comment on above: Result Comment: See report. Scanned copy available in EMR. PERFORMED BY: [place] [address] PATHOLOGIST BURN OUT TENDER LACE ELE SPRING M.D. Performed By: #### C SFCCDIFF, CSF GLU, AERC, GS, CSF TP, CSF PCR PANEL #### [address] CSF Creutzfeldt-Loy Diseas josr 09-30-2023 Creutzfeldt-Loy Disease Normal Negative [facility] Comment on above: Order Comment: Comme nt tube 3 Result Comment: See report. Scanned copy available in EMR. Performed By: #### C SFCCDIFF, CSF GLU, AERC, GS, CSF TP, CSF PCR PANEL #### [address] CSF Specimen Status Normal . [facility] Comment on above: Order Comment: Comme nt tube 3 Result Comment: Jacques howard lab report sent via fax. Performed at: [facility] [address] [id number] Dianetic Counselor: Christy Fernandez PhD, Phone: [phone] PERFORMED BY: [place] [address] PATHOLOGIST BURN OUT TENDER LACE ELE SPRING M.D. Performed By: #### C SFCCDIFF, CSF GLU, AERC, GS, CSF TP, CSF PCR PANEL #### [address] CSF PCR Panelon 09-30-2023 CSF PCR [...] Varicella zoster virus Not detected PERFORMED BY: [place] [address] PATHOLOGIST BURN OUT TENDER LACE ELE SPRING M.D. Normal [facility] Comment on above: Performed By: #### C SFCCDIFF, CSF GLU, AERC, GS, CSF TP, CSF PCR PANEL #### [place] [address] [place] Cell Count Differential,CSFo n 09-30-2023 Appearance, CSF Cloudy Critically abnormal Clear [facility] Comment on above: Order Comment: Comme nt tube 1 Performed By: #### C SFCCDIFF, CSF GLU, AERC, GS, CSF TP, CSF PCR PANEL #### [address] Color, CSF [place]cl[place] Tract Critically abnormal Colorless [facility] Comment on above: Order Comment: Comme nt tube 1 Performed By: #### C SFCCDIFF, CSF GLU, AERC, GS, CSF TP, CSF PCR PANEL #### [address] CSF Supernatant Color Colorless Normal Colorless [facility] Comment on above: Order Comment: Comme nt tube 1 Performed By: #### C SFCCDIFF, CSF GLU, AERC, GS, CSF TP, CSF PCR PANEL #### [address] CSF Volume, Total 11.7 mL Normal [facility] Comment on above: Order Comment: Comme nt tube 1 Performed By: #### C SFCCDIFF, CSF GLU, AERC, GS, CSF TP, CSF PCR PANEL #### [place] [address] [place] Lymphocytes, CSF 17 Normal [facility] Comment on above: Order Comment: Comme nt tube 1 Result Comment: The reference interval and other method performance specifications have not been established for this body fluid. The test result must be integrated into the clinical context for interpretation. Performed By: #### C SFCCDIFF, CSF GLU, AERC, GS, CSF TP, CSF PCR PANEL #### [facility] [address] Monocytes, CSF 4 Normal [facility] Comment on above: Order Comment: Comme nt tube 1 Result Comment: The reference interval and other method performance specifications have not been established for this body fluid. The test result must be integrated into the clinical context for interpretation. Performed By: #### C SFCCDIFF, CSF GLU, AERC, GS, CSF TP, CSF PCR PANEL #### [facility] [address] Neutrophils, CSF 29 Normal [facility] Comment on above: Order Comment: Comme nt tube 1 Result Comment: The reference interval and other method performance specifications have not been established for this body fluid. The test result must be integrated into the clinical context for interpretation. Performed By: #### C SFCCDIFF, CSF GLU, AERC, GS, CSF TP, CSF PCR PANEL #### [facility] [address] RBC, CSF 3534 Normal [facility] Comment on above: Order Comment: Comme nt tube 1 Result Comment: The reference interval and other method performance specifications have not been established for this body fluid. The test result must be integrated into the clinical context for interpretation. Performed By: #### C SFCCDIFF, CSF GLU, AERC, GS, CSF TP, CSF PCR PANEL #### [address] TNC, CSF 2 /uL Normal 0-5 [facility] Comment on above: Order Comment: Comme nt tube 1 Performed By: #### C SFCCDIFF, CSF GLU, AERC, GS, CSF TP, CSF PCR PANEL #### [facility] [address] Total Count, CSF 50 Normal [facility] Comment on above: Order Comment: Comme nt tube 1 Performed By: #### C SFCCDIFF, CSF GLU, AERC, GS, CSF TP, CSF PCR PANEL #### [facility] [address] Tube Number Tested, CSF Tube Number: 1 Normal [facility] Comment on above: Order Comment: Comme nt tube 1 Result Comment: PERF ORMED BY: [place] [address] PATHOLOGIST BURN OUT TENDER LACE ELE SPRING M.D. Performed By: #### C SFCCDIFF, CSF GLU, AERC, GS, CSF TP, CSF PCR PANEL #### [facility] [address] [place] [address] Cell Count Differential,CSF #2on 09-30-2023 Appearance, CSF Clear Normal Clear [facility] Comment on above: Order Comment: Comme nt tube 4 Performed By: #### U HCG, URDS #### [place] [address] [place] Color, CSF Colorless Normal Colorless [facility] Comment on above: Order Comment: Comme nt tube 4 Performed By: #### U HCG, URDS #### [address] CSF Supernatant Color Colorless Normal Colorless [facility] Comment on above: Order Comment: Comme nt tube 4 Performed By: #### U HCG, URDS #### [address] CSF Volume, Total 11.7 mL Normal [facility] Comment on above: Order Comment: Comme nt tube 4 Performed By: #### U HCG, URDS #### [address] Lymphocytes, CSF 2 Normal [facility] Comment on above: Order Comment: Comme nt tube 4 Result Comment: The reference interval and other method performance specifications have not been established for this body fluid. The test result must be integrated into the clinical context for interpretation. Performed By: #### U HCG, URDS #### [place] [address] [place] Monocytes, CSF 2 Normal [facility] Comment on above: Order Comment: Comme nt tube 4 Result Comment: The reference interval and other method performance specifications have not been established for this body fluid. The test result must be integrated into the clinical context for interpretation. Performed By: #### U HCG, URDS #### [address] Neutrophils, CSF 4 Normal [facility] Comment on above: Order Comment: Comme nt tube 4 Result Comment: The reference interval and other method performance specifications have not been established for this body fluid. The test result must be integrated into the clinical context for interpretation. Performed By: #### U HCG, URDS #### [address] RBC, CSF 130 /uL Normal [facility] Comment on above: Order Comment: Comme nt tube 4 Result Comment: The reference interval and other method performance specifications have not been established for this body fluid. The test result must be integrated into the clinical context for interpretation. Performed By: #### U HCG, URDS #### [address] TNC, CSF 1 /uL Normal 0-5 [facility] Comment on above: Order Comment: Comme nt tube 4 Performed By: #### U HCG, URDS #### [address] Total Count, CSF 8 Normal [facility] Comment on above: Order Comment: Comme nt tube 4 Performed By: #### U HCG, URDS #### [address] Tube Number Tested, CSF Tube Number: 4 Normal [facility] Comment on above: Order Comment: Comme nt tube 4 Result Comment: PERF ORMED BY: [place] [address] PATHOLOGIST BURN OUT TENDER LACE ELE SPRING M.D. Performed By: #### U HCG, URDS #### [address] Glucose, Spinal Fluidon 05- Glucose, Spinal Fluid 63 mg/dL Normal 40-70 [facility] Comment on above: Order Comment: Comme nt tube 3 Performed By: #### C SFCCDIFF, CSF GLU, AERC, GS, CSF TP, CSF PCR PANEL #### [address] Gram Stainon 09-30-2023 Microscopic observation Gram stain Nom (Unsp spec) Comment tube 2 aerobic and anaerobic Gram Stain Result No Bacteria Seen No White Blood Cells Seen PERFORMED BY: [place] [address] PATHOLOGIST BURN OUT TENDER LACE ELE Kaur [facility] Comment on above: Performed By: #### C SFCCDIFF, CSF GLU, AERC, GS, CSF TP, CSF PCR PANEL #### [address] IR guided lumbar puncture LP on 09-30-2023 IR guided lumbar puncture LP [facility] [place] [address] [place] [address] Interventional Radiology Rpt Signed Patient: Donnie Bullock MR#: [id number] [birth year] : 1955 Acct:[id number] Age/Sex: 67 / F ADM Date: 09/30/23 Loc: Room: Type: [facility] Attending Dr: Rei Cobos DO Copies to: Rei Cobos DO Ordering Provider: Rei Cobos DO Date of Service: 09/30/23 IR/IR guided lumbar puncture LP: RAPIDLY PROGRESSIVE DEMENTIA IR guided lumbar puncture LP 09/30/2023 7:28 AM SIGNS AND SYMPTOMS: 0.52 [id number] RAPIDLY PROGRESSIVE DEMENTIA INFORMED CONSENT: Reason for [...] Elvis Mae M.D.09/30/2023 1:23 PM Dictation Location: [place] [address] Transcribed By: [facility] 09/30/231322 Dictated By: Elvis Mae II, MD 09/30/231320 Signed By: 09/30/231322 [facility] 09-30-2023 L Specimen: [id number] Received: 09/30/23 Status: ZACK Larsen Num: [id number] Spec Type: Cytology Subm Dr: Rei Cobos DO Tissues: A CSF (CSF) Procedures: Cyto Prepstain, DIFF QWIK, PAPSTN Age/ Patient Sex Location Account Attending Physician TetoDonnie 67/F XD [id number] Rei Cobos DO SPEC NUM: [id number] RECD: 09/30/23 STATUS: ZACK LARSEN NUM: [id number] JAY: 09/30/[address]: Rei Cobos DO ENTERED: 09/30/23 [facility] DR: SPEC TYPE: Cytology DEPT: CNG ENTERED BY: [id number] RECV BY: [id number] ORDERED: Cyto Prepstain, DIFF QWIK, PAPSTN ORDERED: [...] cytospin slides are prepared. (CC/nh) CPT Codes 75118 -------- -------- Specimen: [id number] Received: 09/30/23-1321 Status: ZACK Larsen Num: [id number] Spec Type: Cytology Subm Dr: Rei Cobos DO Tissues: A CSF (CSF) Procedures: Cyto Prepstain, DIFF QWIK, PAPSTN -------- Patient: Donnie Bullock [id number] (Continued) -------- Signed (signature on file) Chin-Guille Marie MD 10/03/23 1426 Normal [facility] Total Protein, Spinal Fluido n 09-30-2023 Total Protein, Spinal Fluid 35 mg/dL Normal 15-45 [facility] Comment on above: Order Comment: Comme nt tube 3 Result Comment: PERF ORMED BY: [facility] [place] [address] PATHOLOGIST BURN OUT TENDER LACE ELE SPRING M.D. Performed By: #### C SFCCDIFF, CSF GLU, AERC, GS, CSF TP, CSF PCR PANEL #### [facility] [address] [id number] [place] Cholesterol [Mass/volume] in Serum or PlasmaOrdered By: Sridhar Hoffman on 09-15-2023 Cholesterol [Mass/Vol] 205 mg/dL High 140-200 [facility] Comment on above: Chol less than 200 m g/dl low riskChol 201-239 mg/dl borderline riskChol 240 mg/dl and greater high risk Result Comment: Chol less than 200 mg/dl low risk Chol 201-239 mg/dl borderline risk Chol 240 mg/dl and greater high risk Performed By: #### U HCG, URDS #### [facility] [address] [place] [address] [facility] Cholesterol in LDL Calc [Mas s/Vol]Ordered By: Sridhar Hoffman on 09-15-2023 Cholesterol in LDL [Mass/Vol] 122 mg/dL 0-100 [facility] Comment on above: LDL ATP III CLASSIFI CATIONLDL less than 100 mg/dL OptimalLDL 100-129 mg/dL Near or above optimalLDL 130-159 mg/dL Borderline highLDL 160-189 mg/dL HighLDL greater than 189 mg/dL Very high Cholesterol in VLDL Calc [Ma ss/Vol]Ordered By: Sridhar Hoffman on 09-15-2023 Cholesterol in VLDL [Mass/Vol] 20 mg/dL [facility] ECG 12 lead ECGon 09-15-2023 ECG 12 lead ECG [facility] [address] [place] [address] [id number] Electrocardiograph Report Signed Patient: Donnie Bullock MR#: [id number] [birth year] : 1955 Acct:[id number] Age/Sex: 67 / F ADM Date: 09/14/23 Loc: Room: [address] [place] [address] Type: ADM IN Attending Dr: Sridhar Hoffman [...] change was found Confirmed by YOLA ROGERS FAC, DESTINEE ([id number]) on 09/15/2023 3:08:00 PM Referred By: Electronically Signed By:DESTINEE ACEVES MD FAC Transcribed By: MUS Signed By Destinee Aceves MD, FACC 09/15/23 1508 Normal [facility] Lipid Panelon 09-15-2023 LDL Cholesterol,Calculated 122 mg/dL High 0-100 [facility] Comment on above: Result Comment: LDL ATP III CLASSIFICATION LDL less than 100 mg/dL Optimal LDL 100-129 mg/dL Near or above optimal LDL 130-159 mg/dL Borderline high LDL 160-189 mg/dL High LDL greater than 189 mg/dL Very high Performed By: #### U HCG, URDS #### [facility] [address] Triglyceride w/Reflex 103 mg/dL Normal 0-149 [facility] Comment on above: Result Comment: TRIG ATP III CLASSIFICATION TRIG less than 150 mg/dL Normal TRIG 150-199 mg/dL Borderline high TRIG 200-500 mg/dL High TRIG greater than 500 mg/dL Very high Standard traceable to the Center for Disease Conrtrol and Prevention (CDC) test method. Performed By: #### U HCG, URDS #### [facility] [address] [id number] [facility] VLDL CHOLESTEROL 20 mg/dL Normal [facility] Comment on above: Performed By: #### U HCG, URDS #### [facility] [address] [id number] [facility] Serum or plasma high density lipoprotein (HDL) cholesterol measurementOrdered By: Sridhar Hoffman on 09-15-2023 Cholesterol in HDL [Mass/Vol] 62 mg/dL Normal 23-92 [facility] Comment on above: HDL CHOL ATP-III CLA SSIFICATION Cardiovascular RiskHDL > or equal to 60 mg/dL LOWHDL < 40 mg/dL HIGH Result Comment: HDL CHOL ATP-III CLASSIFICATION Cardiovascular Risk HDL > or equal to 60 mg/dL LOW HDL < 40 mg/dL HIGH Performed By: #### U HCG, URDS #### [facility] [address] Serum or plasma total choles terol/high density lipoprotein (HDL) cholesterol mass ratOrdered By: Sridhar Hoffman on 09-15-2023 Cholesterol.total/Mandie sterol in HDL [Mass ratio] 3.3 {ratio} Normal <5.0 [facility] Comment on above: Performed By: #### U HCG, URDS #### [facility] [address] [place] [address] Thyroid Stim Hormone w/Rflxo n 09-15-2023 Thyroid Stim Hormone w/Rflx 3.99 u[iU]/mL Normal 0.45-5.33 [facility] Comment on above: Performed By: #### U HCG, URDS #### [facility] [address] [place] [address] Thyrotropin [Units/volume] i n Serum or PlasmaOrdered By: Sridhar Hoffman on 09-15-2023 TSH Qn 3.99 m[IU]/L 0.45-5.33 [facility] Triglyceride [Mass/volume] i n Serum or PlasmaOrdered By: Sridhar Hoffman on 09-15-2023 Triglyceride [Mass/Vol] 103 mg/dL 0-149 [facility] Comment on above: TRIG ATP III CLASSIF ICATIONTRIG less than 150 mg/dL NormalTRIG 150-199 mg/dL Borderline highTRIG 200-500 mg/dL High TRIG greater than 500 mg/dL Very highStandard traceable to the Center for Disease Conrtrol and Prevention (CDC) test method. Vitamin D 25 Hydroxy Totalon 09-15-2023 Vitamin D 25 Hydroxy Total 22.0 ng/mL Low 30-100 [facility] Comment on above: Result Comment: HUSAM MIN D STATUS 25(OH)VITAMIN D RANGE (ng/mL) Deficient <20 Insufficient 20 to <30 Sufficient 30 to 100 Reference: Monica Cantu, Fabrizio HA, et al. Evaluation,treatment, and prevention of vitamin D deficiency; an Endocrine Society clinical practice guideline. JCEM. 2010; 96(7):1911-. PERFORMED BY: [place] [address] PATHOLOGIST BURN OUT TENDER LACE ELE SPRING M.D. Performed By: #### U HCG, URDS #### [address] Vitamin D+Metabolites [Mass/ volume] in Serum or PlasmaOrdered By: Sridhar Hoffman on 09-15-2023 Vitamin D+Metabolites [Mass/Vol] 22.0 ng/mL 30-100 [facility] Comment on above: VITAMIN D STATUS 25( [place])VITAMIN D RANGE (ng/mL) Deficient <20 Insufficient 20 to <30Sufficient 30 to 100Reference: Monica Cantu, Fabrizio HA, et al. Evaluation,treatment, and prevention of vitamin D deficiency; an Endocrine Society clinical practice guideline. JCEM. 2010; 96(7):1911-30. Alanine aminotransferase [En zymatic activity/volume] in Serum or PlasmaOrdered By: Good aGrcia on 09-14-2023 ALT [Catalytic activity/Vol] 20 U/L Normal 7-52 [facility] Comment on above: Performed By: #### U HCG, URDS #### [address] Albumin [Mass/volume] in Ser um or Plasma by Bromocresol green (BCG) dye binding methoOrdered By: Good Garcia on 09-14-2023 Albumin BCG dye [Mass/Vol] 4.0 g/dL 3.5-5.7 [facility] Alkaline phosphatase [Enzyma tic activity/volume] in Serum or PlasmaOrdered By: Good Garcia on 09-14-2023 ALP [Catalytic activity/Vol] 43 U/L Normal 34-104 [facility] Comment on above: Performed By: #### U HCG, URDS #### [address] Amphetamine Screen Ql (U)Ord ered By: Good Garcia on 09-14-2023 Amphetamines Ql (U) Negative Negative [facility] Aspartate aminotransferase [ Enzymatic activity/volume] in Serum or PlasmaOrdered By: Good Garcia on 09-14-2023 AST [Catalytic activity/Vol] 18 U/L Normal 13-39 [facility] Comment on above: Performed By: #### U HCG, URDS #### [address] Automated basophil %Ordered By: Good Garcia on 09-14-2023 Basophils/100 WBC (Bld) 0.6 % Normal . [facility] Comment on above: Performed By: #### U HCG, URDS #### [address] Automated basophil countOrde red By: Good Garcia on 09-14-2023 Basophils (Bld) [#/Vol] 0.0 10*3/uL Normal 0.0-0.2 [facility] Comment on above: Result Comment: PERF ORMED BY: [place] [address] PATHOLOGIST BURN OUT TENDER LACE ELE SPRING M.D. Performed By: #### U HCG, URDS #### [address] Automated blood monocyte cou ntOrdered By: Good Garcia on 09-14-2023 Monocytes (Bld) [#/Vol] 0.4 10*3/uL Normal 0.0-0.8 [facility] Comment on above: Performed By: #### U HCG, URDS #### [address] Automated eosinophil %Ordere d By: Good Garcia on 09-14-2023 Eosinophils/100 WBC (Bld) 1.0 % Normal . [facility] Comment on above: Performed By: #### U HCG, URDS #### [address] Automated eosinophil countOr dered By: Good Garcia on 09-14-2023 Eosinophils (Bld) [#/Vol] 0.1 10*3/uL Normal 0.0-0.45 [facility] Comment on above: Performed By: #### U HCG, URDS #### [facility] [address] Automated monocyte %Ordered By: Good Garcia on 09-14-2023 Monocytes/100 WBC (Bld) 7.5 % Normal . [facility] Comment on above: Performed By: #### U HCG, URDS #### [facility] [address] Automated neutrophil %Ordere d By: Good Garcia on 09-14-2023 Neutrophils/100 WBC (Bld) 59.4 % Normal . [facility] Comment on above: Performed By: #### U HCG, URDS #### [facility] [address] Automated urine color determ inationOrdered By: Good Garcia on 09-14-2023 Color (U) Yellow Normal Yellow [facility] Comment on above: Order Comment: Name Collection Type:: Clean-Voided Midstream Performed By: #### U HCG, URDS #### [facility] [address] [place] [address] Barbiturates [Presence] in U rine by Screen methodOrdered By: Good Garcia on 09-14-2023 Barbiturates Screen Ql (U) Negative Negative [facility] Benzodiazepines Screen Ql (U )Ordered By: Good Garcia on 09-14-2023 Benzodiazepines Ql (U) Negative Negative [facility] Benzoylecgonine [Presence] i n Urine by Screen methodOrdered By: Good Garcia on 09-14-2023 Benzoylecgonine Screen Ql (U) Negative Negative [facility] Bilirubin Test strip Ql (U)O rdered By: Good Garcia on 09-14-2023 Bilirubin Ql (U) Negative Negative [facility] Bilirubin.total [Mass/volume ] in Serum or PlasmaOrdered By: Good Garcia on 09-14-2023 Bilirubin [Mass/Vol] 0.4 mg/dL Normal 0.3-1.0 [facility] Comment on above: Performed By: #### U HCG, URDS #### [facility] [address] Calcium [Mass/volume] in Ser um or PlasmaOrdered By: Good Garcia on 09-14-2023 Calcium [Mass/Vol] 9.8 mg/dL Normal 8.6-10.3 [facility] Comment on above: Performed By: #### U HCG, URDS #### [facility] [address] Cannabinoids [Presence] in U rine by Screen methodOrdered By: Good Garcia on 09-14-2023 Cannabinoids Screen Ql (U) Negative Negative [facility] Comment on above: These are unconfirme d results and should not be used for legal purposes. Drug Cut-Off Concentration: AMPH 1000 ng/mL GABRIELA 200 ng/mL SIVA 200 ng/mL COCM 300 ng/mL OP 300 ng/mL PCP 25 ng/mL THC 20 ng/mL Carbon dioxide, total [Moles /volume] in Serum or PlasmaOrdered By: Good Garcia on 09-14-2023 CO2 [Moles/Vol] 31.2 mmol/L High 21.0-31.[address] [facility] Comment on above: Performed By: #### U HCG, URDS #### [place] [address] [place] Chloride [Moles/volume] in S anupam or PlasmaOrdered By: Good Garcia on 09-14-2023 Chloride [Moles/Vol] 103 mmol/L Normal 98-107 [facility] Comment on above: Performed By: #### U HCG, URDS #### [address] Complete Blood Count Auto Di ffon 09-14-2023 Mean Corpuscular HGB Conc 34.0 g/dL Normal 32.0-35.0 [facility] Comment on above: Performed By: #### U HCG, URDS #### [address] Monocytes/100 WBC (Bld) 16.08 % Normal 0.00-20.00 [facility] Comment on above: Performed By: #### U HCG, URDS #### [address] NRBC% 0.1 /100{WBC} Normal 0-0.5 [facility] Comment on above: Performed By: #### U HCG, URDS #### [address] Comprehensive Metabolic Pane chito 09-14-2023 Albumin [Mass/Vol] 4.0 g/dL Normal 3.5-5.7 [facility] Comment on above: Performed By: #### U HCG, URDS #### [address] Creatinine Clr Calc Pharmacy 59.72 Normal [facility] Comment on above: Result Comment: PERF ORMED BY: [place] [address] PATHOLOGIST B[employer] OUT T[employer]ER LACE ELE SPRING M.D. Performed By: #### U HCG, URDS #### [address] GFR/1.73 sq M.predicted MDRD (S/P/Bld) [Vol rate/Area] mL/min/{1.73_m2} Normal [facility] Comment on above: Performed By: #### U HCG, URDS #### [address] Creatinine [Mass/volume] in Serum or PlasmaOrdered By: Good Garcia on 09-14-2023 Creatinine [Mass/Vol] 0.61 mg/dL Normal 0.60-1.20 [facility] Comment on above: Performed By: #### U HCG, URDS #### [address] Drug Screen,Urineon 09-14-19 24 Amphetamine Screen,Urine Negative Normal Negative [facility] Comment on above: Performed By: #### U HCG, URDS #### [address] Barbiturate Screen,Urine Negative Normal Negative [facility] Comment on above: Performed By: #### U HCG, URDS #### [address] Benzodiazepines Screen,Urine Negative Normal Negative [facility] Comment on above: Performed By: #### U HCG, URDS #### [address] Cannabinoid Screen,Urine Negative Normal Negative [facility] Comment on above: Result Comment: Thes e are unconfirmed results and should not be used for legal purposes. Drug Cut-Off Concentration: AMPH 1000 ng/mL GABRIELA 200 ng/mL SIVA 200 ng/mL COCM 300 ng/mL OP 300 ng/mL PCP 25 ng/mL THC 20 ng/mL PERFORMED BY: [place] [address] PATHOLOGIST B[employer] OUT T[employer]ER LACE ELE SPRING M.D. Performed By: #### U HCG, URDS #### [address] Cocaine Screen,Urine Negative Normal Negative [facility] Comment on above: Performed By: #### U HCG, URDS #### [address] Opiate Screen,Urine Positive High Negative [facility] Comment on above: Performed By: #### U HCG, URDS #### [address] Phencyclidine Screen,Urine Negative Normal Negative [facility] Comment on above: Performed By: #### U HCG, URDS #### [address] Erythrocyte distribution wid th [Ratio] by Automated countOrdered By: Good Garcia on 09-14-2023 Erythrocyte distribution width (RBC) [Ratio] 13.0 % Normal 11.9-15.3 [facility] Comment on above: Performed By: #### U HCG, URDS #### [address] [place] [address] [place] Erythrocytes [#/volume] in B lood by Automated countOrdered By: Good Garcia on 09-14-2023 RBC (Bld) [#/Vol] 3.98 10*6/uL Normal 3.60-5.00 [facility] Comment on above: Performed By: #### U HCG, URDS #### [facility] [address] [place] [address] [place] Ethanol [Mass/volume] in Ser um or PlasmaOrdered By: Good Garcia on 09-14-2023 Ethanol [Mass/Vol] mg/dL Normal [facility] Comment on above: Performed By: #### U HCG, URDS #### [address] Ethanol [Mass/Vol] TNP [facility] Comment on above: Test not performed Ethyl Alcohol Profileon 08-17 Percent Ethanol Not performed Normal [facility] Comment on above: Result Comment: PERF ORMED BY: [place] [address] PATHOLOGIST B[employer] OUT T[employer]ER LACE LEE SPRING M.D. Performed By: #### U HCG, URDS #### [place] [address] [place] Glucose [Mass/volume] in Ser um or PlasmaOrdered By: Good Garcia on 09-14-2023 Glucose [Mass/Vol] 105 mg/dL High 70-100 [facility] Comment on above: ADA recommended refe rence rangeRandom Glucose Reference Range is dependent on time and content of last meal. Glucose of more than 200 mg/dL in a nonstressed, ambulatory subject supports the diagnosis of Diabetes Mellitus. Result Comment: [place] om Glucose Reference Range is dependent on time and content of last meal. Glucose of more than 200 mg/dL in a nonstressed, ambulatory subject supports the diagnosis of Diabetes Mellitus. ADA recommended reference range Performed By: #### U HCG, URDS #### [facility] [address] [place] [id number] [place] Hematocrit [Volume Fraction] of Blood by Automated countOrdered By: Good Garcia on 09-14-2023 Hematocrit (Bld) [Volume fraction] 35.7 % Normal 34.0-46.4 [facility] Comment on above: Performed By: #### U HCG, URDS #### [address] Hemoglobin [Mass/volume] in BloodOrdered By: Good Garcia on 09-14-2023 Hemoglobin (Bld) [Mass/Vol] 12.1 g/dL Normal 11.8-15.4 [facility] Comment on above: Performed By: #### U HCG, URDS #### [address] Ketones Auto test strip (U) [Mass/Vol]Ordered By: Good Garcia on 09-14-2023 Ketones (U) [Mass/Vol] Negative Negative [facility] Leukocytes [#/volume] correc gage for nucleated erythrocytes in Blood by Automated counOrdered By: Good Garcia on 09-14-2023 WBC corrected for nucl RBC Auto (Bld) [#/Vol] 5.3 10*3/uL 3.8-11.6 [facility] Leukocytes [#/volume] in Blo od by Automated countOrdered By: Good Garcia on 09-14-2023 WBC (Bld) [#/Vol] 5.3 10*3/uL Normal 3.8-11.6 [facility] Comment on above: Performed By: #### U HCG, URDS #### [facility] [address] [place] [address] [place] Lymphocytes [#/volume] in Bl ood by Automated countOrdered By: Good Garcia on 09-14-2023 Lymphocytes (Bld) [#/Vol] 1.7 10*3/uL Normal 1.00-4.8 [facility] Comment on above: Performed By: #### U HCG, URDS #### [place] [address] [place] Lymphocytes/100 leukocytes i n Blood by Automated countOrdered By: Good Garcia on 09-14-2023 Lymphocytes/100 WBC (Bld) 31.5 % Normal . [facility] Comment on above: Performed By: #### U HCG, URDS #### [facility] [address] [place] [address] MCH [Entitic mass] by Automa gage countOrdered By: Good Garcia on 09-14-2023 MCH (RBC) [Entitic mass] 30.4 pg Normal 24.7-34.3 [facility] Comment on above: Performed By: #### U HCG, URDS #### [address] MCHC Auto (RBC) [Mass/Vol]Or dered By: Good Garcia on 09-14-2023 MCHC (RBC) [Mass/Vol] 34.0 g/dL 32.0-35.0 [facility] MCV [Entitic volume] by Auto mated countOrdered By: Good Garcia on 09-14-2023 MCV (RBC) [Entitic vol] 89.6 fL Normal 80-100 [facility] Comment on above: Performed By: #### U HCG, URDS #### [facility] [address] [place] [address] Monocyte distribution width [Entitic volume] in Blood by AutomatedOrdered By: Good Garcia on 09-14-2023 Monocyte distribution width Auto (Bld) [Entitic vol] 16.08 % 0.00-20.00 [facility] Neutrophils [#/volume] in Bl ood by Automated countOrdered By: Good Garcia on 09-14-2023 Neutrophils (Bld) [#/Vol] 3.1 10*3/uL Normal 1.8-7.7 [facility] Comment on above: Performed By: #### U HCG, URDS #### [facility] [address] [place] [address] Nitrite Test strip Ql (U)Ord ered By: Good Garcia on 09-14-2023 Nitrite Ql (U) Negative Negative [facility] No Panel InformationOrdered By: Good Garcia on 09-14-2023 Estimated GFR (CKD-EPI) > 60.0 mL/Min [facility] Creatinine Clearance (Chem 59.72 [facility] Nucleated erythrocytes [Pres ence] in Blood by Automated countOrdered By: Good Garcia on 09-14-2023 Nucleated RBC Auto Ql (Bld) 0.1 /100{WBC} 0-0.5 [facility] Opiates [Presence] in Urine by Screen methodOrdered By: Good Garcia on 09-14-2023 Opiates Screen Ql (U) Positive Negative [facility] Phencyclidine Screen Ql (U)O rdered By: Good Garcia on 09-14-2023 Phencyclidine Ql (U) Negative Negative [facility] Platelet mean volume [Entiti c volume] in Blood by Automated countOrdered By: Good Garcia on 09-14-2023 Platelet mean volume (Bld) [Entitic vol] 7.3 fL Normal 6.3-10.7 [facility] Comment on above: Performed By: #### U HCG, URDS #### [facility] [address] [place] [address] Platelets [#/volume] in Bloo d by Automated countOrdered By: Good Garcia on 09-14-2023 Platelets (Bld) [#/Vol] 246 10*3/uL Normal 150-450 [facility] Comment on above: Performed By: #### U HCG, URDS #### [facility] [address] [place] [address] [place] Potassium [Moles/volume] in Serum or PlasmaOrdered By: Good Garcia on 09-14-2023 Potassium [Moles/Vol] 3.8 mmol/L Normal 3.5-5.1 [facility] Comment on above: Performed By: #### U HCG, URDS #### [facility] [address] [place] [address] [place] Protein Auto test strip (U) [Mass/Vol]Ordered By: Good Garcia on 09-14-2023 Protein (U) [Mass/Vol] Negative Negative [facility] Protein [Mass/volume] in Ser um or PlasmaOrdered By: Good Garcia on 09-14-2023 Protein [Mass/Vol] 6.2 g/dL Low 6.4-8.9 [facility] Comment on above: Performed By: #### U HCG, URDS #### [address] Serum globulin measurement b y calculation (mass/volume)Ordered By: Good Garcia on 09-14-2023 Globulin (S) [Mass/Vol] 2.2 g/dL Normal F [facility] Comment on above: Performed By: #### U HCG, URDS #### [address] Serum or plasma albumin/glob ulin mass ratioOrdered By: Good Garcia on 09-14-2023 Albumin/Globulin [Mass ratio] 1.8 {ratio} Normal [facility] Comment on above: Performed By: #### U HCG, URDS #### [address] Serum or plasma anion gap de terminationOrdered By: Good Garcia on 09-14-2023 Anion gap [Moles/Vol] 7.6 mmol/L Normal 6.0-15.0 [facility] Comment on above: Performed By: #### U HCG, URDS #### [address] Sodium [Moles/volume] in Ser um or PlasmaOrdered By: Good Garcia on 09-14-2023 Sodium [Moles/Vol] 138 mmol/L Normal 136-145 [facility] Comment on above: Performed By: #### U HCG, URDS #### [address] Specific gravity Auto test s trip (U) [Rel density]Ordered By: Good Garcia on 09-14-2023 Specific gravity (U) [Rel density] 1.004 1.001-1.030 [facility] Urea nitrogen [Mass/volume] in Serum or PlasmaOrdered By: Good Garcia on 09-14-2023 Urea nitrogen [Mass/Vol] 8 mg/dL Normal 7-25 [facility] Comment on above: Performed By: #### U HCG, URDS #### [facility] [address] [place] [address] Urinalysison 09-14-2023 Appearance (U) Clear Normal Clear [facility] Comment on above: Order Comment: Name Collection Type:: Clean-Voided Midstream Performed By: #### U HCG, URDS #### [facility] [address] [place] [address] Bilirubin,Urine Negative Normal Negative [facility] Comment on above: Order Comment: Name Collection Type:: Clean-Voided Midstream Performed By: #### U HCG, URDS #### [address] Glucose Ql (U) Normal Normal Normal [facility] Comment on above: Order Comment: Name Collection Type:: Clean-Voided Midstream Performed By: #### U HCG, URDS #### [address] Ketones Ql (U) Negative Normal Negative [facility] Comment on above: Order Comment: Name Collection Type:: Clean-Voided Midstream Performed By: #### U HCG, URDS #### [address] Leukocyte esterase Test strip Ql (U) Negative Normal Negative [facility] Comment on above: Order Comment: Name Collection Type:: Clean-Voided Midstream Performed By: #### U HCG, URDS #### [place] [address] [place] Nitrite,Urine Negative Normal Negative [facility] Comment on above: Order Comment: Name Collection Type:: Clean-Voided Midstream Performed By: #### U HCG, URDS #### [place] [address] [place] Occult Blood,Urine Negative Normal Negative [facility] Comment on above: Order Comment: Name Collection Type:: Clean-Voided Midstream Result Comment: PERF ORMED BY: [place] [address] PATHOLOGIST BURN OUT TENDER LACE ELE SPRING M.D. Performed By: #### U HCG, URDS #### [facility] [address] Protein,Urine Negative Normal Negative [facility] Comment on above: Order Comment: Name Collection Type:: Clean-Voided Midstream Performed By: #### U HCG, URDS #### [facility] [address] Specificy Mcnary,Urine 1.004 Normal 1.001-1.030 [facility] Comment on above: Order Comment: Name Collection Type:: Clean-Voided Midstream Performed By: #### U HCG, URDS #### [facility] [address] Urobilinogen,Urine Normal Normal Normal [facility] Comment on above: Order Comment: Name Collection Type:: Clean-Voided Midstream Performed By: #### U HCG, URDS #### [address] Urine clarity by refractomet ry automatedOrdered By: Good Garcia on 09-14-2023 Clarity Refractometry automated (U) Clear Clear [facility] Urine glucose measurement by automated test strip (mass/volume)Ordered By: Good Garcia on 09-14-2023 Glucose Auto test strip (U) [Mass/Vol] Normal mg/dL Normal [facility] Urine hemoglobin detection b y automated test stripOrdered By: Good Garcia on 09-14-2023 Hemoglobin Auto test strip Ql (U) Negative Negative [facility] Urine leukocyte esterase det ection by automated test stripOrdered By: Good Garcia on 09-14-2023 Leukocyte esterase Auto test strip Ql (U) Negative Negative [facility] Urine pH measurement by auto mated test stripOrdered By: Good Garcia on 09-14-2023 pH (U) 7.0 [pH] Normal 5.0-9.0 [facility] Comment on above: Order Comment: Name Collection Type:: Clean-Voided Midstream Performed By: #### U HCG, URDS #### [facility] [address] [place] [address] [place] Urobilinogen Auto test strip (U) [Mass/Vol]Ordered By: Good Garcia on 09-14-2023 Urobilinogen (U) [Mass/Vol] Normal mg/dL Normal [facility]H UA (CLEAN/CATCH) MICROSC OPIC IF INDICATEon 06-30-2023 BILIRUBIN URINE Negative NEGATIVE [facility] BLOOD URINE Negative NEGATIVE [facility] Clarity (U) CLEAR CLEAR [facility] Color (U) LT. YELLOW YELLOW [facility] GLUCOSE URINE UA Negative NEGATIVE mg/dL [facility] Interpretation and review of laboratory results Abnormal [facility] Ketones Ql (U) Negative NEGATIVE mg/dL [facility] Leukocyte esterase Test strip Ql (U) TRACE Abnormal NEGATIVE [facility] NITRITE URINE Negative NEGATIVE [facility] pH (U) 5.0 [pH] 5.0 - 9.0 [facility] PROTEIN URINE Negative NEG/TRACE [facility] SPECIFIC GRAVITY URINE 1.025 1.005 - 1.025 [facility] URINE MICROSCOPIC INDICATED YES [facility] UROBILINOGEN URINE 0.2 EU/dL 0.2 - 1.0 EU/[facility] A1C with Estimated Average G luon 06-04-2023 Glucose [Mass/Vol] 128 mg/dL Normal [facility] Comment on above: Result Comment: PERF ORMED BY: [place] [address] PATHOLOGIST B[employer] OUT T[employer]ER LACE ELE SPRING M.D. Performed By: #### U HCG, URDS #### [facility] [address] [place] [address] HbA1c (Bld) [Mass fraction] 6.1 % High 4.3-5.6 [facility] Comment on above: Result Comment: Incr eased risk for diabetes: 5.7 - 6.4 diabetes: >6.4 glycemic control for adults with diabetes: <7.0 Performed By: #### U HCG, URDS #### [facility] [address] [place] [address] Comprehensive Metabolic Pane chito 06-04-2023 Albumin [Mass/Vol] 3.3 g/dL Low 3.5-5.7 [facility] Comment on above: Performed By: #### C MP, A1C WT eA #### [facility] [address] Albumin/Globulin [Mass ratio] 1.4 {ratio} Normal [facility] Comment on above: Performed By: #### C SUE, A1C WT eA #### [facility] [address] ALP [Catalytic activity/Vol] 39 U/L Normal 34-104 [facility] Comment on above: Performed By: #### C SUE A1C WT eA #### [address] ALT [Catalytic activity/Vol] 12 U/L Normal 7-52 [facility] Comment on above: Performed By: #### C SUE A1C WT eA #### [address] Anion gap [Moles/Vol] 6.4 mmol/L Normal 6.0-15.0 [facility] Comment on above: Performed By: #### C SUE [facility] WT eA #### [address] AST [Catalytic activity/Vol] 20 U/L Normal 13-39 [facility] Comment on above: Performed By: #### C SUE A1C WT eA #### [address] Bilirubin [Mass/Vol] 0.4 mg/dL Normal 0.3-1.0 [facility] Comment on above: Performed By: #### C SUE A1C WT eA #### [place] [address] [place] Calcium [Mass/Vol] 9.3 mg/dL Normal 8.6-10.3 [facility] Comment on above: Performed By: #### C SUE, A1C WT eA #### [place] [address] [place] Chloride [Moles/Vol] 108 mmol/L High 98-107 [facility] Comment on above: Performed By: #### C SUE A1C WT eA #### [address] CO2 [Moles/Vol] 30.7 mmol/L Normal 21.0-31.0 [facility] Comment on above: Performed By: #### C SUE A1C WT eA #### [address] Creatinine [Mass/Vol] 0.71 mg/dL Normal 0.60-1.20 [facility] Comment on above: Performed By: #### C SUE, A1C WT eA #### [place] [address] [place] Creatinine Clr Calc Pharmacy 59.72 Normal [facility] Comment on above: Result Comment: PERF ORMED BY: [place] [address] PATHOLOGIST B[employer] OUT T[employer]ER LACE ELE SPRING M.D. Performed By: #### C SUE, A1C WT eA #### [address] GFR/1.73 sq M.predicted MDRD (S/P/Bld) [Vol rate/Area] mL/min/{1.73_m2} Normal [facility] Comment on above: Performed By: #### C SEU, A1C WT eA #### [address] Globulin (S) [Mass/Vol] 2.3 g/dL Normal [facility] Comment on above: Performed By: #### C SUE, A1C WT eA #### [address] Glucose [Mass/Vol] 101 mg/dL High 70-100 [facility] Comment on above: Result Comment: [place] Glucose Reference Range is dependent on time and content of last meal. Glucose of more than 200 mg/dL in a nonstressed, ambulatory subject supports the diagnosis of Diabetes Mellitus. ADA recommended reference range Performed By: #### C SUE, A1C WT eA #### [address] Potassium [Moles/Vol] 4.1 mmol/L Normal 3.5-5.1 [facility] Comment on above: Performed By: #### C MP, A1C WTH eA #### [facility] [address] Protein [Mass/Vol] 5.6 g/dL Low 6.4-8.9 [facility] Comment on above: Performed By: #### C MP, A1C WTH eA #### [place] [id number] [place] Sodium [Moles/Vol] 141 mmol/L Normal 136-145 [facility] Comment on above: Performed By: #### C MP, A1C WTH eA #### [address] Urea nitrogen [Mass/Vol] 22 mg/dL Normal 7-25 [facility] Comment on above: Performed By: #### C MP, A1C WTH eA #### [address] Urine Cultureon 06-04-2023 Bacteria identified Cx Nom (U) <9,000 colonies/ml mixed bacterial skin contaminants 2 Days PERFORMED BY: [place] [address] PATHOLOGIST B[employer] OUT T[employer]ER LACE ELE [employer]ING M.D. Normal [facility] Comment on above: Performed By: #### C UU #### [address] A1C with Estimated Average G luon 06-01-2023 Glucose [Mass/Vol] 126 mg/dL Normal [facility] Comment on above: Result Comment: PERF ORMED BY: [place] [address] PATHOLOGIST BURN OUT TENDER LACE ELE SPRING M.D. Performed By: #### C SFCCDIFF, CSF GLU, AERC, GS, CSF TP, CSF PCR PANEL #### [address] HbA1c (Bld) [Mass fraction] 6.0 % High 4.3-5.6 [facility] Comment on above: Result Comment: Incr eased risk for diabetes: 5.7 - 6.4 diabetes: >6.4 glycemic control for adults with diabetes: <7.0 Performed By: #### C SFCCDIFF, CSF GLU, AERC, GS, CSF TP, CSF PCR PANEL #### [address] Complete Blood Count Auto Di ffon 06-01-2023 Basophils (Bld) [#/Vol] 0.0 10*3/uL Normal 0.0-0.2 [facility] Comment on above: Result Comment: PERF ORMED BY: [place] [address] PATHOLOGIST B[employer] OUT T[employer]ER LACE ELE SPRING M.D. Performed By: #### C SFCCDIFF, CSF GLU, AERC, GS, CSF TP, CSF PCR PANEL #### [address] Basophils/100 WBC (Bld) 0.5 % Normal . [facility] Comment on above: Performed By: #### C SFCCDIFF, CSF GLU, AERC, GS, CSF TP, CSF PCR PANEL #### [address] Eosinophils (Bld) [#/Vol] 0.1 10*3/uL Normal 0.0-0.45 [facility] Comment on above: Performed By: #### C SFCCDIFF, CSF GLU, AERC, GS, CSF TP, CSF PCR PANEL #### [address] Eosinophils/100 WBC (Bld) 1.5 % Normal . [facility] Comment on above: Performed By: #### C SFCCDIFF, CSF GLU, AERC, GS, CSF TP, CSF PCR PANEL #### [address] Erythrocyte distribution width (RBC) [Ratio] 12.9 % Normal 11.9-15.3 [facility] Comment on above: Performed By: #### C SFCCDIFF, CSF GLU, AERC, GS, CSF TP, CSF PCR PANEL #### [address] Hematocrit (Bld) [Volume fraction] 35.4 % Normal 34.0-46.4 [facility] Comment on above: Performed By: #### C SFCCDIFF, CSF GLU, AERC, GS, CSF TP, CSF PCR PANEL #### [address] Hemoglobin (Bld) [Mass/Vol] 11.9 g/dL Normal 11.8-15.4 [facility] Comment on above: Performed By: #### C SFCCDIFF, CSF GLU, AERC, GS, CSF TP, CSF PCR PANEL #### [address] Lymphocytes (Bld) [#/Vol] 1.6 10*3/uL Normal 1.00-4.8 [facility] Comment on above: Performed By: #### C SFCCDIFF, CSF GLU, AERC, GS, CSF TP, CSF PCR PANEL #### [address] Lymphocytes/100 WBC (Bld) 31.4 % Normal . [facility] Comment on above: Performed By: #### C SFCCDIFF, CSF GLU, AERC, GS, CSF TP, CSF PCR PANEL #### [address] MCH (RBC) [Entitic mass] 29.5 pg Normal 24.7-34.3 [facility] Comment on above: Performed By: #### C SFCCDIFF, CSF GLU, AERC, GS, CSF TP, CSF PCR PANEL #### [address] MCV (RBC) [Entitic vol] 88.1 fL Normal 80-100 [facility] Comment on above: Performed By: #### C SFCCDIFF, CSF GLU, AERC, GS, CSF TP, CSF PCR PANEL #### [address] Mean Corpuscular HGB Conc 33.5 g/dL Normal 32.0-35.0 [facility] Comment on above: Performed By: #### C SFCCDIFF, CSF GLU, AERC, GS, CSF TP, CSF PCR PANEL #### [address] Monocytes (Bld) [#/Vol] 0.4 10*3/uL Normal 0.0-0.8 [facility] Comment on above: Performed By: #### C SFCCDIFF, CSF GLU, AERC, GS, CSF TP, CSF PCR PANEL #### [address] Monocytes/100 WBC (Bld) 8.8 % Normal . T jennifer [facility] Comment on above: Performed By: #### C SFCCDIFF, CSF GLU, AERC, GS, CSF TP, CSF PCR PANEL #### [address] Neutrophils (Bld) [#/Vol] 2.9 10*3/uL Normal 1.8-7.7 [facility] Comment on above: Performed By: #### C SFCCDIFF, CSF GLU, AERC, GS, CSF TP, CSF PCR PANEL #### [address] Neutrophils/100 WBC (Bld) 57.8 % Normal . [facility] Comment on above: Performed By: #### C SFCCDIFF, CSF GLU, AERC, GS, CSF TP, CSF PCR PANEL #### [address] NRBC% 0.1 /100{WBC} Normal 0-0.5 [facility] Comment on above: Performed By: #### C SFCCDIFF, CSF GLU, AERC, GS, CSF TP, CSF PCR PANEL #### [address] Platelet mean volume (Bld) [Entitic vol] 7.4 fL Normal 6.3-10.7 [facility] Comment on above: Performed By: #### C SFCCDIFF, CSF GLU, AERC, GS, CSF TP, CSF PCR PANEL #### [address] Platelets (Bld) [#/Vol] 220 10*3/uL Normal 150-450 [facility] Comment on above: Performed By: #### C SFCCDIFF, CSF GLU, AERC, GS, CSF TP, CSF PCR PANEL #### [address] RBC (Bld) [#/Vol] 4.02 10*6/uL Normal 3.60-5.00 [facility] Comment on above: Performed By: #### C SFCCDIFF, CSF GLU, AERC, GS, CSF TP, CSF PCR PANEL #### [address] WBC (Bld) [#/Vol] 5.1 10*3/uL Normal 3.8-11.6 [facility] Comment on above: Performed By: #### C SFCCDIFF, CSF GLU, AERC, GS, CSF TP, CSF PCR PANEL #### [address] Comprehensive Metabolic Pane chito 06-01-2023 Albumin [Mass/Vol] 3.4 g/dL Low 3.5-5.7 [facility] Comment on above: Performed By: #### C SFCCDIFF, CSF GLU, AERC, GS, CSF TP, CSF PCR PANEL #### [address] Albumin/Globulin [Mass ratio] 1.5 {ratio} Normal [facility] Comment on above: Performed By: #### C SFCCDIFF, CSF GLU, AERC, GS, CSF TP, CSF PCR PANEL #### [address] ALP [Catalytic activity/Vol] 37 U/L Normal 34-104 [facility] Comment on above: Performed By: #### C SFCCDIFF, CSF GLU, AERC, GS, CSF TP, CSF PCR PANEL #### [place] [address] [place] ALT [Catalytic activity/Vol] 13 U/L Normal 7-52 [facility] Comment on above: Performed By: #### C SFCCDIFF, CSF GLU, AERC, GS, CSF TP, CSF PCR PANEL #### [address] Anion gap [Moles/Vol] 8.2 mmol/L Normal 6.0-15.0 [facility] Comment on above: Performed By: #### C SFCCDIFF, CSF GLU, AERC, GS, CSF TP, CSF PCR PANEL #### [address] AST [Catalytic activity/Vol] 15 U/L Normal 13-39 [facility] Comment on above: Performed By: #### C SFCCDIFF, CSF GLU, AERC, GS, CSF TP, CSF PCR PANEL #### [address] Bilirubin [Mass/Vol] 0.3 mg/dL Normal 0.3-1.0 [facility] Comment on above: Performed By: #### C SFCCDIFF, CSF GLU, AERC, GS, CSF TP, CSF PCR PANEL #### [address] Calcium [Mass/Vol] 9.1 mg/dL Normal 8.6-10.3 [facility] Comment on above: Performed By: #### C SFCCDIFF, CSF GLU, AERC, GS, CSF TP, CSF PCR PANEL #### [address] Chloride [Moles/Vol] 109 mmol/L High 98-107 [facility] Comment on above: Performed By: #### C SFCCDIFF, CSF GLU, AERC, GS, CSF TP, CSF PCR PANEL #### [address] CO2 [Moles/Vol] 27.8 mmol/L Normal 21.0-31.0 [facility] Comment on above: Performed By: #### C SFCCDIFF, CSF GLU, AERC, GS, CSF TP, CSF PCR PANEL #### [address] Creatinine [Mass/Vol] 0.58 mg/dL Low 0.60-1.20 [facility] Comment on above: Performed By: #### C SFCCDIFF, CSF GLU, AERC, GS, CSF TP, CSF PCR PANEL #### [address] Creatinine Clr Calc Pharmacy 59.72 Normal [facility] Comment on above: Result Comment: PERF ORMED BY: [place] [address] PATHOLOGIST B[employer] OUT T[employer]ER LACE ELE SPRING M.D. Performed By: #### C SFCCDIFF, CSF GLU, AERC, GS, CSF TP, CSF PCR PANEL #### [address] GFR/1.73 sq M.predicted MDRD (S/P/Bld) [Vol rate/Area] mL/min/{1.73_m2} Normal [facility] Comment on above: Performed By: #### C SFCCDIFF, CSF GLU, AERC, GS, CSF TP, CSF PCR PANEL #### [address] Globulin (S) [Mass/Vol] 2.2 g/dL Normal T [facility] Comment on above: Performed By: #### C SFCCDIFF, CSF GLU, AERC, GS, CSF TP, CSF PCR PANEL #### [address] Glucose [Mass/Vol] 94 mg/dL Normal 70-100 [facility] Comment on above: Result Comment: [place] Glucose Reference Range is dependent on time and content of last meal. Glucose of more than 200 mg/dL in a nonstressed, ambulatory subject supports the diagnosis of Diabetes Mellitus. ADA recommended reference range Performed By: #### C SFCCDIFF, CSF GLU, AERC, GS, CSF TP, CSF PCR PANEL #### [address] Potassium [Moles/Vol] 4.0 mmol/L Normal 3.5-5.1 [facility] Comment on above: Performed By: #### C SFCCDIFF, CSF GLU, AERC, GS, CSF TP, CSF PCR PANEL #### [address] Protein [Mass/Vol] 5.6 g/dL Low 6.4-8.9 [facility] Comment on above: Performed By: #### C SFCCDIFF, CSF GLU, AERC, GS, CSF TP, CSF PCR PANEL #### [address] Sodium [Moles/Vol] 141 mmol/L Normal 136-145 [facility] Comment on above: Performed By: #### C SFCCDIFF, CSF GLU, AERC, GS, CSF TP, CSF PCR PANEL #### [address] Urea nitrogen [Mass/Vol] 18 mg/dL Normal 7-25 [facility] Comment on above: Performed By: #### C SFCCDIFF, CSF GLU, AERC, GS, CSF TP, CSF PCR PANEL #### [address] Dipstick and Microscopicon 0 05-31-2023 Appearance (U) Slightly Cloudy Critically abnormal Clear [facility] Comment on above: Order Comment: Comme nt tube 3 Performed By: #### C SFCCDIFF, CSF GLU, AERC, GS, CSF TP, CSF PCR PANEL #### [address] Bacteria,Urine None Seen Normal None Seen [facility] Comment on above: Order Comment: Comme nt tube 3 Performed By: #### C SFCCDIFF, CSF GLU, AERC, GS, CSF TP, CSF PCR PANEL #### [address] Bilirubin,Urine Negative Normal Negative [facility] Comment on above: Order Comment: Comme nt tube 3 Performed By: #### C SFCCDIFF, CSF GLU, AERC, GS, CSF TP, CSF PCR PANEL #### [address] Color (U) Yellow Normal Yellow [facility] Comment on above: Order Comment: Comme nt tube 3 Performed By: #### C SFCCDIFF, CSF GLU, AERC, GS, CSF TP, CSF PCR PANEL #### [address] Glucose Ql (U) Normal Normal Normal [facility] Comment on above: Order Comment: Comme nt tube 3 Performed By: #### C SFCCDIFF, CSF GLU, AERC, GS, CSF TP, CSF PCR PANEL #### [address] Hyaline Casts,Urine 9-19 High 0-8 [facility] Comment on above: Order Comment: Comme nt tube 3 Result Comment: PERF ORMED BY: [place] [address] PATHOLOGIST B[employer]ER LACE E[employer]ING M.D. Performed By: #### C SFCCDIFF, CSF GLU, AERC, GS, CSF TP, CSF PCR PANEL #### [address] Ketones Ql (U) Negative Normal Negative [facility] Comment on above: Order Comment: Comme nt tube 3 Performed By: #### C SFCCDIFF, CSF GLU, AERC, GS, CSF TP, CSF PCR PANEL #### [address] Leukocyte esterase Test strip Ql (U) 2+ High Negative [facility] Comment on above: Order Comment: Comme nt tube 3 Performed By: #### C SFCCDIFF, CSF GLU, AERC, GS, CSF TP, CSF PCR PANEL #### [address] Nitrite,Urine Negative Normal Negative [facility] Comment on above: Order Comment: Comme nt tube 3 Performed By: #### C SFCCDIFF, CSF GLU, AERC, GS, CSF TP, CSF PCR PANEL #### [address] Occult Blood,Urine Negative Normal Negative [facility] Comment on above: Order Comment: Comme nt tube 3 Result Comment: PERF ORMED BY: [place] [address] PATHOLOGIST B[employer] OUT T[employer]ER LACE E[employer] SPRING M.D. Performed By: #### C SFCCDIFF, CSF GLU, AERC, GS, CSF TP, CSF PCR PANEL #### [address] Othe Crystals,Urine None Seen Normal [facility] Comment on above: Order Comment: Comme nt tube 3 Performed By: #### C SFCCDIFF, CSF GLU, AERC, GS, CSF TP, CSF PCR PANEL #### [address] pH (U) 6.0 [pH] Normal 5.0-9.0 [facility] Comment on above: Order Comment: Comme nt tube 3 Performed By: #### C SFCCDIFF, CSF GLU, AERC, GS, CSF TP, CSF PCR PANEL #### [address] Protein,Urine Negative Normal Negative [facility] Comment on above: Order Comment: Comme nt tube 3 Performed By: #### C SFCCDIFF, CSF GLU, AERC, GS, CSF TP, CSF PCR PANEL #### [address] RBC,Urine 5-9 High 0-4 [facility] Comment on above: Order Comment: Comme nt tube 3 Performed By: #### C SFCCDIFF, CSF GLU, AERC, GS, CSF TP, CSF PCR PANEL #### [address] Specificy Mcnary,Urine 1.030 Normal 1.001-1.030 [facility] Comment on above: Order Comment: Comme nt tube 3 Performed By: #### C SFCCDIFF, CSF GLU, AERC, GS, CSF TP, CSF PCR PANEL #### [facility] [address] Squamous Epithelial Cell,Urine 1-2 Normal 0-2 [facility] Comment on above: Order Comment: Comme nt tube 3 Performed By: #### C SFCCDIFF, CSF GLU, AERC, GS, CSF TP, CSF PCR PANEL #### [address] Uric Acid Crystals,Urine 1+ Normal [facility] Comment on above: Order Comment: Comme nt tube 3 Performed By: #### C SFCCDIFF, CSF GLU, AERC, GS, CSF TP, CSF PCR PANEL #### [address] Urobilinogen,Urine Normal Normal Normal [facility] Comment on above: Order Comment: Comme nt tube 3 Performed By: #### C SFCCDIFF, CSF GLU, AERC, GS, CSF TP, CSF PCR PANEL #### [address] WBC,Urine 5-9 High 0-4 [facility] Comment on above: Order Comment: Comme nt tube 3 Performed By: #### C SFCCDIFF, CSF GLU, AERC, GS, CSF TP, CSF PCR PANEL #### [address] MR head/brain wo conon 05-31 MR head/brain wo con [facility] [place] [address] MRI Report Signed Patient: Donnie Bullock MR#: [id number] [birth year] : 1955 Acct:[id number] Age/Sex: 67 / F ADM Date: 05/25/23 Loc: Room: [address] [place] [address] Type: ADM IN Attending Dr: Sridhar Hoffman [...] Coates Jr., D.OEsteban05/31/2023 1:55 PM Dictation Location: [place] [address] Transcribed By: [facility] 05/31/23 1355 Dictated By: Raymundo Coates Jr, DO 05/31/23 1348 Signed By: 05/31/23 1355 Normal [facility] Urine Cultureon 05-31-2023 Bacteria identified Cx Nom (U) 15,000 colonies/ml mixed bacterial skin contaminants 2 Days PERFORMED BY: [place] [address] PATHOLOGIST B[employer] T[employer]ER LACE E[employer]ING M.D. Normal [facility] Comment on above: Performed By: #### C SFCCDIFF, CSF GLU, AERC, GS, CSF TP, CSF PCR PANEL #### [place] [id number] [facility] Ammoniaon 05-29-2023 Ammonia (P) [Moles/Vol] 21 umol/L Normal 11-35 [facility] Comment on above: Result Comment: PERF ORMED BY: [place] [id number] PATHOLOGIST B[employer] OUT T[employer]ER LACE ELE SPRING M.D. Performed By: #### C SFCCDIFF, CSF GLU, AERC, GS, CSF TP, CSF PCR PANEL #### [place] [id number] [facility] Vitamin B12on 05-29-2023 Cobalamin (Vitamin B12) [Mass/Vol] 380 pg/mL Normal 180-914 [facility] Comment on above: Result Comment: PERF ORMED BY: [place] [id number] PATHOLOGIST B[employer] OUT T[employer]ER LACE ELE SPRING M.D. Performed By: #### C SFCCDIFF, CSF GLU, AERC, GS, CSF TP, CSF PCR PANEL #### [facility] [address] [place] [id number] [facility] Lipid Panelon 05-26-2023 Cholesterol [Mass/Vol] 177 mg/dL Normal 140-200 [facility] Comment on above: Result Comment: Chol less than 200 mg/dl low risk Chol 201-239 mg/dl borderline risk Chol 240 mg/dl and greater high risk Performed By: #### C SFCCDIFF, CSF GLU, AERC, GS, CSF TP, CSF PCR PANEL #### [facility] [address] Cholesterol in HDL [Mass/Vol] 62 mg/dL Normal 23-92 [facility] Comment on above: Result Comment: HDL CHOL ATP-III CLASSIFICATION Cardiovascular Risk HDL > or equal to 60 mg/dL LOW HDL < 40 mg/dL HIGH Performed By: #### C SFCCDIFF, CSF GLU, AERC, GS, CSF TP, CSF PCR PANEL #### [facility] [address] Cholesterol.total/Mandie sterol in HDL [Mass ratio] 2.9 {ratio} Normal <5.0 [facility] Comment on above: Performed By: #### C SFCCDIFF, CSF GLU, AERC, GS, CSF TP, CSF PCR PANEL #### [facility] [address] [place] [id number] [facility] LDL Cholesterol,Calculated 95 mg/dL Normal 0-100 [facility] Comment on above: Result Comment: LDL ATP III CLASSIFICATION LDL less than 100 mg/dL Optimal LDL 100-129 mg/dL Near or above optimal LDL 130-159 mg/dL Borderline high LDL 160-189 mg/dL High LDL greater than 189 mg/dL Very high Performed By: #### C SFCCDIFF, CSF GLU, AERC, GS, CSF TP, CSF PCR PANEL #### [facility] [address] [place] [id number] [place] Triglyceride w/Reflex 100 mg/dL Normal 0-149 [facility] Comment on above: Result Comment: TRIG ATP III CLASSIFICATION TRIG less than 150 mg/dL Normal TRIG 150-199 mg/dL Borderline high TRIG 200-500 mg/dL High TRIG greater than 500 mg/dL Very high Standard traceable to the Center for Disease Conrtrol and Prevention (CDC) test method. Performed By: #### C SFCCDIFF, CSF GLU, AERC, GS, CSF TP, CSF PCR PANEL #### [facility] [address] VLDL CHOLESTEROL 20 mg/dL Normal [facility] Comment on above: Performed By: #### C SFCCDIFF, CSF GLU, AERC, GS, CSF TP, CSF PCR PANEL #### [address] Thyroid Stim Hormone w/Rflxo n 05-26-2023 Thyroid Stim Hormone w/Rflx 2.11 u[iU]/mL Normal 0.45-5.33 [facility] Comment on above: Performed By: #### C SFCCDIFF, CSF GLU, AERC, GS, CSF TP, CSF PCR PANEL #### [facility] [address] Vitamin D 25 Hydroxy Totalon 05-26-2023 Vitamin D 25 Hydroxy Total 25.4 ng/mL Low 30-100 [facility] Comment on above: Result Comment: HUSAM MIN D STATUS 25(OH)VITAMIN D RANGE (ng/mL) Deficient <20 Insufficient 20 to <30 Sufficient 30 to 100 Reference: Shaq MF,Monica NC, Fabrizio , et al. Evaluation,treatment, and prevention of vitamin D deficiency; an Endocrine Society clinical practice guideline. JCEM. 2010; 96(7):1911-30. PERFORMED BY: [place] [address] PATHOLOGIST BURN OUT TENDER LACE ELE SPRING M.D. Performed By: #### C SFCCDIFF, CSF GLU, AERC, GS, CSF TP, CSF PCR PANEL #### [address] Alanine aminotransferase [En zymatic activity/volume] in Serum or PlasmaOrdered By: Robert Caruso on 05-25-2023 ALT [Catalytic activity/Vol] 14 U/L Normal 7-52 [facility] Comment on above: Performed By: #### C SFCCDIFF, CSF GLU, AERC, GS, CSF TP, CSF PCR PANEL #### [address] Albumin [Mass/volume] in Ser um or Plasma by Bromocresol green (BCG) dye binding methoOrdered By: Robert Caruso on 05-25-2023 Albumin BCG dye [Mass/Vol] 4.4 g/dL 3.5-5.7 [facility] Alkaline phosphatase [Enzyma tic activity/volume] in Serum or PlasmaOrdered By: Robert Caruso on 05-25-2023 ALP [Catalytic activity/Vol] 48 U/L Normal 34-104 [facility] Comment on above: Performed By: #### C SFCCDIFF, CSF GLU, AERC, GS, CSF TP, CSF PCR PANEL #### [address] Amphetamine Screen Ql (U)Ord ered By: Robert Caruso on 05-25-2023 Amphetamines Ql (U) Negative Negative [facility] Aspartate aminotransferase [ Enzymatic activity/volume] in Serum or PlasmaOrdered By: Robert Caruso on 05-25-2023 AST [Catalytic activity/Vol] 21 U/L Normal 13-39 [facility] Comment on above: Performed By: #### C SFCCDIFF, CSF GLU, AERC, GS, CSF TP, CSF PCR PANEL #### [address] Automated basophil %Ordered By: Robert Caruso on 05-25-2023 Basophils/100 WBC (Bld) 0.5 % Normal . [facility] Comment on above: Performed By: #### C SFCCDIFF, CSF GLU, AERC, GS, CSF TP, CSF PCR PANEL #### [address] Automated basophil countOrde red By: Robert Caruso on 05-25-2023 Basophils (Bld) [#/Vol] 0.0 10*3/uL Normal 0.0-0.2 [facility] Comment on above: Result Comment: PERF ORMED BY: [place] [address] PATHOLOGIST B[employer] OUT TENDER LACE ELE SPRING M.D. Performed By: #### C SFCCDIFF, CSF GLU, AERC, GS, CSF TP, CSF PCR PANEL #### [address] Automated blood monocyte cou ntOrdered By: Robert Caruso on 05-25-2023 Monocytes (Bld) [#/Vol] 0.3 10*3/uL Normal 0.0-0.8 [facility] Comment on above: Performed By: #### C SFCCDIFF, CSF GLU, AERC, GS, CSF TP, CSF PCR PANEL #### [address] Automated eosinophil %Ordere d By: Robert Caruso on 05-25-2023 Eosinophils/100 WBC (Bld) 0.1 % Normal . [facility] Comment on above: Performed By: #### C SFCCDIFF, CSF GLU, AERC, GS, CSF TP, CSF PCR PANEL #### [address] Automated eosinophil countOr dered By: Robert Caruso on 05-25-2023 Eosinophils (Bld) [#/Vol] 0.0 10*3/uL Normal 0.0-0.45 [facility] Comment on above: Performed By: #### C SFCCDIFF, CSF GLU, AERC, GS, CSF TP, CSF PCR PANEL #### [address] Automated monocyte %Ordered By: Robert Caruso on 05-25-2023 Monocytes/100 WBC (Bld) 3.9 % Normal . [facility] Comment on above: Performed By: #### C SFCCDIFF, CSF GLU, AERC, GS, CSF TP, CSF PCR PANEL #### [place] [address] [place] Automated neutrophil %Ordere d By: Robert Caruso on 05-25-2023 Neutrophils/100 WBC (Bld) 80.0 % Normal . [facility] Comment on above: Performed By: #### C SFCCDIFF, CSF GLU, AERC, GS, CSF TP, CSF PCR PANEL #### [facility] [address] Barbiturates [Presence] in U rine by Screen methodOrdered By: Robert Caruso on 05-25-2023 Barbiturates Screen Ql (U) Negative Negative [facility] Benzodiazepines Screen Ql (U )Ordered By: Robert Caruso on 05-25-2023 Benzodiazepines Ql (U) Negative Negative [facility] Benzoylecgonine [Presence] i n Urine by Screen methodOrdered By: Robert Caruso on 05-25-2023 Benzoylecgonine Screen Ql (U) Negative Negative [facility] Bilirubin.total [Mass/volume ] in Serum or PlasmaOrdered By: Robert Caruso on 05-25-2023 Bilirubin [Mass/Vol] 0.8 mg/dL Normal 0.3-1.0 [facility] Comment on above: Performed By: #### C SFCCDIFF, CSF GLU, AERC, GS, CSF TP, CSF PCR PANEL #### [facility] [address] Calcium [Mass/volume] in Ser um or PlasmaOrdered By: Robert Caruso on 05-25-2023 Calcium [Mass/Vol] 10.1 mg/dL Normal 8.6-10.3 [facility] Comment on above: Performed By: #### C SFCCDIFF, CSF GLU, AERC, GS, CSF TP, CSF PCR PANEL #### [facility] [address] [place] [address] [place] Cannabinoids [Presence] in U rine by Screen methodOrdered By: Robert Caruso on 05-25-2023 Cannabinoids Screen Ql (U) Negative Negative [facility] Comment on above: These are unconfirme d results and should not be used for legal purposes. Drug Cut-Off Concentration: AMPH 1000 ng/mL GABRIELA 200 ng/mL SIVA 200 ng/mL COCM 300 ng/mL OP 300 ng/mL PCP 25 ng/mL THC 20 ng/mL Carbon dioxide, total [Moles /volume] in Serum or PlasmaOrdered By: Robert Caruso on 05-25-2023 CO2 [Moles/Vol] 29.6 mmol/L Normal 21.0-31.[address] [facility] Comment on above: Performed By: #### C SFCCDIFF, CSF GLU, AERC, GS, CSF TP, CSF PCR PANEL #### [address] Chloride [Moles/volume] in S anupam or PlasmaOrdered By: Robert Caruso on 05-25-2023 Chloride [Moles/Vol] 102 mmol/L Normal 98-107 [facility] Comment on above: Performed By: #### C SFCCDIFF, CSF GLU, AERC, GS, CSF TP, CSF PCR PANEL #### [address] Complete Blood Count Auto Di ffon 05-25-2023 Mean Corpuscular HGB Conc 34.0 g/dL Normal 32.0-35.0 [facility] Comment on above: Performed By: #### C SFCCDIFF, CSF GLU, AERC, GS, CSF TP, CSF PCR PANEL #### [address] Monocytes/100 WBC (Bld) 17.76 % Normal 0.00-20.00 [facility] Comment on above: Performed By: #### C SFCCDIFF, CSF GLU, AERC, GS, CSF TP, CSF PCR PANEL #### [address] NRBC% 0.0 /100{WBC} Normal 0-0.5 [facility] Comment on above: Performed By: #### C SFCCDIFF, CSF GLU, AERC, GS, CSF TP, CSF PCR PANEL #### [address] Comprehensive Metabolic Pane chito 05-25-2023 Albumin [Mass/Vol] 4.4 g/dL Normal 3.5-5.7 [facility] Comment on above: Performed By: #### C SFCCDIFF, CSF GLU, AERC, GS, CSF TP, CSF PCR PANEL #### [address] Creatinine Clr Calc Pharmacy 59.72 Normal [facility] Comment on above: Result Comment: PERF ORMED BY: [place] [address] PATHOLOGIST BURN OUT TENDER LACE ELE SPRING M.D. Performed By: #### C SFCCDIFF, CSF GLU, AERC, GS, CSF TP, CSF PCR PANEL #### [address] GFR/1.73 sq M.predicted MDRD (S/P/Bld) [Vol rate/Area] mL/min/{1.73_m2} Normal [facility] Comment on above: Performed By: #### C SFCCDIFF, CSF GLU, AERC, GS, CSF TP, CSF PCR PANEL #### [address] Creatinine [Mass/volume] in Serum or PlasmaOrdered By: Robert Caruso on 05-25-2023 Creatinine [Mass/Vol] 0.76 mg/dL Normal 0.60-1.20 [facility] Comment on above: Performed By: #### C SFCCDIFF, CSF GLU, AERC, GS, CSF TP, CSF PCR PANEL #### [place] [address] [place] Drug Screen,Urineon 05-25-19 24 Amphetamine Screen,Urine Negative Normal Negative [facility] Comment on above: Performed By: #### U HCG, URDS #### [address] Barbiturate Screen,Urine Negative Normal Negative [facility] Comment on above: Performed By: #### U HCG, URDS #### [address] Benzodiazepines Screen,Urine Negative Normal Negative [facility] Comment on above: Performed By: #### U HCG, URDS #### [address] Cannabinoid Screen,Urine Negative Normal Negative [facility] Comment on above: Result Comment: Thes e are unconfirmed results and should not be used for legal purposes. Drug Cut-Off Concentration: AMPH 1000 ng/mL GABRIELA 200 ng/mL SIVA 200 ng/mL COCM 300 ng/mL OP 300 ng/mL PCP 25 ng/mL THC 20 ng/mL PERFORMED BY: [place] [address] PATHOLOGIST BURN OUT TENDER LACE ELE SPRING M.D. Performed By: #### U HCG, URDS #### [address] Cocaine Screen,Urine Negative Normal Negative [facility] Comment on above: Performed By: #### U HCG, URDS #### [address] Opiate Screen,Urine Negative Normal Negative [facility] Comment on above: Performed By: #### U HCG, URDS #### [address] Phencyclidine Screen,Urine Negative Normal Negative [facility] Comment on above: Performed By: #### U HCG, URDS #### [address] ECG 12 lead ECGon 05-25-2023 ECG 12 lead ECG [facility] Main [place] [address] [place] [address] Electrocardiograph Report Signed Patient: Donnie Bullock MR#: [id number] [birth year] : 1955 Acct:[id number] Age/Sex: 67 / F ADM Date: 05/25/23 Loc: Room: [address] [place] [address] Type: ADM IN Attending Dr: Sridhar Hoffman [...] previous ECGs available Confirmed by Fidel Flood ([id number]) on 05/25/2023 5:09:43 PM Referred By: Electronically Signed By:Fidel Flood Transcribed By: MUS Signed By Fidel Flood MD 05/25/23 1709 Normal [facility] Erythrocyte distribution wid th [Ratio] by Automated countOrdered By: Robert Caruso on 05-25-2023 Erythrocyte distribution width (RBC) [Ratio] 12.9 % Normal 11.9-15.3 [facility] Comment on above: Performed By: #### C SFCCDIFF, CSF GLU, AERC, GS, CSF TP, CSF PCR PANEL #### [facility] [address] [place] [address] Erythrocytes [#/volume] in B lood by Automated countOrdered By: Robert Caruso on 05-25-2023 RBC (Bld) [#/Vol] 4.74 10*6/uL Normal 3.60-5.00 [facility] Comment on above: Performed By: #### C SFCCDIFF, CSF GLU, AERC, GS, CSF TP, CSF PCR PANEL #### [facility] [address] [place] [address] Ethanol [Mass/volume] in Ser um or PlasmaOrdered By: Robert Caruso on 05-25-2023 Ethanol [Mass/Vol] mg/dL Normal [facility] Comment on above: Performed By: #### C SFCCDIFF, CSF GLU, AERC, GS, CSF TP, CSF PCR PANEL #### [facility] [address] [place] [address] Ethanol [Mass/Vol] TNP [facility] Comment on above: Test not performed Ethyl Alcohol Profileon Percent Ethanol Not performed Normal [facility] Comment on above: Result Comment: PERF ORMED BY: [place] [address] PATHOLOGIST BURN OUT TENDER LACE ELE SPRING M.D. Performed By: #### C SFCCDIFF, CSF GLU, AERC, GS, CSF TP, CSF PCR PANEL #### [address] Glucose [Mass/volume] in Ser um or PlasmaOrdered By: Robert Caruso on 05-25-2023 Glucose [Mass/Vol] 120 mg/dL High 70-100 [facility] Comment on above: ADA recommended refe rence rangeRandom Glucose Reference Range is dependent on time and content of last meal. Glucose of more than 200 mg/dL in a nonstressed, ambulatory subject supports the diagnosis of Diabetes Mellitus. Result Comment: [place] om Glucose Reference Range is dependent on time and content of last meal. Glucose of more than 200 mg/dL in a nonstressed, ambulatory subject supports the diagnosis of Diabetes Mellitus. ADA recommended reference range Performed By: #### C SFCCDIFF, CSF GLU, AERC, GS, CSF TP, CSF PCR PANEL #### [address] HCG ( test) IA.rapi d Ql (U)Ordered By: Robert Caruso on 05-25-2023 HCG ( test) Ql (U) Negative [facility] HCG,Urineon 05-25-2023 Beta HCG ( test) Ql (U) Negative Normal [facility] Comment on above: Result Comment: PERF ORMED BY: [place] [address] PATHOLOGIST BURN OUT TENDER LACE ELE SPRING M.D. Performed By: #### U HCG, URDS #### [place] [id number] [facility] Hematocrit [Volume Fraction] of Blood by Automated countOrdered By: Robert Caruso on 05-25-2023 Hematocrit (Bld) [Volume fraction] 41.6 % Normal 34.0-46.4 [facility] Comment on above: Performed By: #### C SFCCDIFF, CSF GLU, AERC, GS, CSF TP, CSF PCR PANEL #### [facility] [address] Hemoglobin [Mass/volume] in BloodOrdered By: Robert Caruso on 05-25-2023 Hemoglobin (Bld) [Mass/Vol] 14.1 g/dL Normal 11.8-15.4 [facility] Comment on above: Performed By: #### C SFCCDIFF, CSF GLU, AERC, GS, CSF TP, CSF PCR PANEL #### [facility] [address] Leukocytes [#/volume] correc gage for nucleated erythrocytes in Blood by Automated counOrdered By: Robetr Caruso on 05-25-2023 WBC corrected for nucl RBC Auto (Bld) [#/Vol] 7.0 10*3/uL 3.8-11.6 [facility] Leukocytes [#/volume] in Blo od by Automated countOrdered By: Robert Caruso on 05-25-2023 WBC (Bld) [#/Vol] 7.0 10*3/uL Normal 3.8-11.6 [facility] Comment on above: Performed By: #### C SFCCDIFF, CSF GLU, AERC, GS, CSF TP, CSF PCR PANEL #### [address] Lymphocytes [#/volume] in Bl ood by Automated countOrdered By: Robert Caruso on 05-25-2023 Lymphocytes (Bld) [#/Vol] 1.1 10*3/uL Normal 1.00-4.8 [facility] Comment on above: Performed By: #### C SFCCDIFF, CSF GLU, AERC, GS, CSF TP, CSF PCR PANEL #### [place] [address] [place] Lymphocytes/100 leukocytes i n Blood by Automated countOrdered By: Robert Caruso on 05-25-2023 Lymphocytes/100 WBC (Bld) 15.5 % Normal . [facility] Comment on above: Performed By: #### C SFCCDIFF, CSF GLU, AERC, GS, CSF TP, CSF PCR PANEL #### [facility] [address] MCH [Entitic mass] by Automa gage countOrdered By: Robert Caruso on 05-25-2023 MCH (RBC) [Entitic mass] 29.9 pg Normal 24.7-34.3 [facility] Comment on above: Performed By: #### C SFCCDIFF, CSF GLU, AERC, GS, CSF TP, CSF PCR PANEL #### [facility] [address] MCHC Auto (RBC) [Mass/Vol]Or dered By: Robert Caruso on 05-25-2023 MCHC (RBC) [Mass/Vol] 34.0 g/dL 32.0-35.0 [facility] MCV [Entitic volume] by Auto mated countOrdered By: Robert Caruso on 05-25-2023 MCV (RBC) [Entitic vol] 87.8 fL Normal 80-100 F [facility] Comment on above: Performed By: #### C SFCCDIFF, CSF GLU, AERC, GS, CSF TP, CSF PCR PANEL #### [facility] [address] Monocyte distribution width [Entitic volume] in Blood by AutomatedOrdered By: Robert Caruso on 05-25-2023 Monocyte distribution width Auto (Bld) [Entitic vol] 17.76 % 0.00-20.00 [facility] Neutrophils [#/volume] in Bl ood by Automated countOrdered By: Robert Caruso on 05-25-2023 Neutrophils (Bld) [#/Vol] 5.6 10*3/uL Normal 1.8-7.7 [facility] Comment on above: Performed By: #### C SFCCDIFF, CSF GLU, AERC, GS, CSF TP, CSF PCR PANEL #### [facility] [address] No Panel InformationOrdered By: Robert Caruso on 05-25-2023 Estimated GFR (CKD-EPI) > 60.0 mL/Min [facility] Creatinine Clearance (Chem 59.72 [facility] Nucleated erythrocytes [Pres ence] in Blood by Automated countOrdered By: Robert Caruso on 05-25-2023 Nucleated RBC Auto Ql (Bld) 0.0 /100{WBC} 0-0.5 [facility] Opiates [Presence] in Urine by Screen methodOrdered By: Robert Caruso on 05-25-2023 Opiates Screen Ql (U) Negative Negative [facility] Phencyclidine Screen Ql (U)O rdered By: Robert Caruso on 05-25-2023 Phencyclidine Ql (U) Negative Negative [facility] Platelet mean volume [Entiti c volume] in Blood by Automated countOrdered By: Robert Caruso on 05-25-2023 Platelet mean volume (Bld) [Entitic vol] 7.9 fL Normal 6.3-10.7 [facility] Comment on above: Performed By: #### C SFCCDIFF, CSF GLU, AERC, GS, CSF TP, CSF PCR PANEL #### [facility] [address] [place] [address] [place] Platelets [#/volume] in Bloo d by Automated countOrdered By: Robert Caruso on 05-25-2023 Platelets (Bld) [#/Vol] 292 10*3/uL Normal 150-450 [facility] Comment on above: Performed By: #### C SFCCDIFF, CSF GLU, AERC, GS, CSF TP, CSF PCR PANEL #### [facility] [address] [place] [address] [place] Potassium [Moles/volume] in Serum or PlasmaOrdered By: Robert Caruso on 05-25-2023 Potassium [Moles/Vol] 3.7 mmol/L Normal 3.5-5.1 [facility] Comment on above: Performed By: #### C SFCCDIFF, CSF GLU, AERC, GS, CSF TP, CSF PCR PANEL #### [facility] [address] [place] [address] [place] Protein [Mass/volume] in Ser um or PlasmaOrdered By: Robert Caruso on 05-25-2023 Protein [Mass/Vol] 7.3 g/dL Normal 6.4-8.9 [facility] Comment on above: Performed By: #### C SFCCDIFF, CSF GLU, AERC, GS, CSF TP, CSF PCR PANEL #### [address] Serum globulin measurement b y calculation (mass/volume)Ordered By: Robert Caruso on 05-25-2023 Globulin (S) [Mass/Vol] 2.9 g/dL Normal [facility] Comment on above: Performed By: #### C SFCCDIFF, CSF GLU, AERC, GS, CSF TP, CSF PCR PANEL #### [address] Serum or plasma albumin/glob ulin mass ratioOrdered By: Robert Caruso on 05-25-2023 Albumin/Globulin [Mass ratio] 1.5 {ratio} Normal [facility] Comment on above: Performed By: #### C SFCCDIFF, CSF GLU, AERC, GS, CSF TP, CSF PCR PANEL #### [address] Serum or plasma anion gap de terminationOrdered By: Robert Caruso on 05-25-2023 Anion gap [Moles/Vol] 10.1 mmol/L Normal 6.0-15.0 [facility] Comment on above: Performed By: #### C SFCCDIFF, CSF GLU, AERC, GS, CSF TP, CSF PCR PANEL #### [address] Sodium [Moles/volume] in Ser um or PlasmaOrdered By: Robert Caruso on 05-25-2023 Sodium [Moles/Vol] 138 mmol/L Normal 136-145 [facility] Comment on above: Performed By: #### C SFCCDIFF, CSF GLU, AERC, GS, CSF TP, CSF PCR PANEL #### [address] Urea nitrogen [Mass/volume] in Serum or PlasmaOrdered By: Robert Caruso on 05-25-2023 Urea nitrogen [Mass/Vol] 12 mg/dL Normal 7-25 [facility] Comment on above: Performed By: #### C SFCCDIFF, CSF GLU, AERC, GS, CSF TP, CSF PCR PANEL #### [facility] [address] .Fentanyl Scrn wo Conf,Uron 05-20-2023 Ur Fentanyl Scrn Negative Normal NEG <1.0 [facility] Comment on above: Performed By: #### C [id number] #### [facility] [address] [place] [address] Ur Fentanyl Scrn Qnt 0.10 ng/mL Normal <=0.99 [facility] Comment on above: Performed By: #### C [id number] #### [address] [address] .eGFRon 05-20-2023 GFR/1.73 sq M.predicted MDRD (S/P/Bld) [Vol rate/Area] mL/min/{1.73_m2} Normal >=60 [facility] Comment on above: Result Comment: [facility] have implemented the eGFR [...] years Performed By: #### E GFR #### [facility] [address] [place] [address] CBC w/ Diffon 05-20-2023 Erythrocyte distribution width (RBC) [Ratio] 13.2 % Normal 11.6-14.8 [facility] Comment on above: Performed By: #### C BC #### [address] [address] Hematocrit (Bld) [Volume fraction] 40.9 % Normal 36.0-46.0 [facility] Comment on above: Performed By: #### C BC #### [address] [address] Hemoglobin (Bld) [Mass/Vol] 13.9 g/dL Normal 12.0-16.0 [facility] Comment on above: Performed By: #### C BC #### [address] [address] MCH (RBC) [Entitic mass] 30.1 pg Normal 27.0-35.0 [facility] Comment on above: Performed By: #### C BC #### [address] [address] MCHC 34.1 % Normal 31.0-37.0 [facility] Comment on above: Performed By: #### C BC #### [address] [address] MCV (RBC) [Entitic vol] 88.2 fL Normal 80.0-100.[address] [facility] Comment on above: Performed By: #### C BC #### [address] [address] Platelet 250 x10*3/mcL Normal 150-450 [facility] Comment on above: Performed By: #### C BC #### [address] [address] Platelet mean volume (Bld) [Entitic vol] 7.6 fL Normal 6.7-10.6 [facility] Comment on above: Performed By: #### C BC #### [address] [address] RBC 4.63 x10*6/mcL Normal 3.80-5.20 [facility] Comment on above: Performed By: #### C BC #### [address] [address] WBC 5.6 x10*3/mcL Normal 4.5-11.0 [facility] Comment on above: Performed By: #### C BC #### [address] [address] CMPon 05-20-2023 Albumin [Mass/Vol] 4.5 g/dL Normal 3.2-4.9 [facility] Comment on above: Performed By: #### C OMP #### [address] [address] Albumin/Globulin [Mass ratio] 1.4 {ratio} Normal 1.1-2.2 [facility] Comment on above: Performed By: #### C OMP #### [address] [address] Alk Phos 47 IU/L Normal 32-91 [facility] Comment on above: Performed By: #### C OMP #### [address] [address] ALT [Catalytic activity/Vol] 18 U/L Normal 14-54 [facility] Comment on above: Performed By: #### C OMP #### [address] [address] Anion gap [Moles/Vol] 14 mmol/L Normal 7-17 [facility] Comment on above: Performed By: #### C OMP #### [address] [address] AST [Catalytic activity/Vol] 28 U/L Normal 15-41 [facility] Comment on above: Performed By: #### C OMP #### [address] [address] Bili Total 0.8 mg/dL Normal 0.3-1.2 [facility] Comment on above: Performed By: #### C OMP #### [address] [address] Calcium [Mass/Vol] 10.1 mg/dL Normal 8.5-10.3 [facility] Comment on above: Performed By: #### C OMP #### [address] [address] Chloride [Moles/Vol] 100 mmol/L Normal 98-110 [facility] Comment on above: Performed By: #### C OMP #### [address] [address] CO2 [Moles/Vol] 27 mmol/L Normal 22-32 [facility] Comment on above: Performed By: #### C OMP #### [address] [address] Creatinine [Mass/Vol] 0.96 mg/dL Normal 0.44-1.03 [facility] Comment on above: Performed By: #### C OMP #### [address] [address] Glucose [Mass/Vol] 116 mg/dL High 70-99 [facility] Comment on above: Performed By: #### C OMP #### [address] [address] Potassium [Moles/Vol] 4.0 mmol/L Normal 3.4-4.8 [facility] Comment on above: Performed By: #### C OMP #### [address] [address] Protein [Mass/Vol] 7.8 g/dL Normal 6.5-8.1 [facility] Comment on above: Performed By: #### C OMP #### [address] [address] Sodium [Moles/Vol] 137 mmol/L Normal 133-142 [facility] Comment on above: Performed By: #### C OMP #### [address] [address] Urea nitrogen [Mass/Vol] 13 mg/dL Normal 8-26 [facility] Comment on above: Performed By: #### C OMP #### [facility] [address] [place] [address] Urea nitrogen/Creatinine [Mass ratio] 13.5 mg/mg Normal 10.0-20.0 [facility] Comment on above: Performed By: #### C OMP #### [address] [address] [address] Brain w/o Contraston CT Brain w/o [...] or other acute finding. Radiation Dose Estimate: CTDI(mGy):0.391118 / / / kVp:120.914725 / mAs:0.149775 / / / DLP(mGy-cm):5.770175J maureen Part: Head CTDI(mGy):44.575513 / / / kVp:120.225290 / mAs:182.455992 / / / DLP(mGy-cm):813.78088 7Body Part: Head Final Dictated by: Tremayne Butler MD Dictated DT/TM: 05.20.2023 2:48 pm Signed by: Tremayne Butler MD Signed (Electronic Signature): 05.20.2023 2:50 pm (If Report Is Signed, Electronically Signed in Other Vendor System) Normal [facility] Diff Autoon 05-20-2023 Baso Absolute 0.0 x10*3/mcL Normal 0.0-0.2 [facility] Comment on above: Performed By: #### . Automated Diff #### [address] [address] Basophils/100 WBC (Bld) 0.5 % Normal 0.0-1.[address] [facility] Comment on above: Performed By: #### . Automated Diff #### [address] [address] Eos Absolute 0.0 x10*3/mcL Normal 0.0-0.4 [facility] Comment on above: Performed By: #### . Automated Diff #### [address] [address] Eosinophils/100 WBC (Bld) 0.4 % Normal 0.0-5.4 [facility] Comment on above: Performed By: #### . Automated Diff #### [address] [address] Lymph Absolute 1.3 x10*3/mcL Normal 1.0-4.8 [facility] Comment on above: Performed By: #### . Automated Diff #### [address] [address] Lymphocytes/100 WBC (Bld) 22.8 % Low 27.2-40.8 [facility] Comment on above: Performed By: #### . Automated Diff #### [address] [address] [place] Absolute 0.3 x10*3/mcL Normal 0.1-1.1 [facility] Comment on above: Performed By: #### . Automated Diff #### [address] [address] Monocytes/100 WBC (Bld) 5.2 % Normal 3.7-11.[address] [facility] Comment on above: Performed By: #### . Automated Diff #### [address] [address] Neutro Absolute 4.0 x10*3/mcL Normal 1.8-7.7 [facility] Comment on above: Performed By: #### . Automated Diff #### [address] [address] Neutro Auto 71.1 % High 47.2-70.8 [facility] Comment on above: Performed By: #### . Automated Diff #### [address] [address] ED Clinical Summaryon 2023 ED Clinical Summary [address] [address] ED Clinical Summary Person Information Name: Donnie Bullock/[place] Age: 67 Years : 1955 Sex: Female PCP: Remigio Simpson MD Marital Status: Phone: Race: White Ethnicity: Not or Language: Tajik Visit Reason: Psychiatric screening exam; psych screen Acuity: 2 Enc Type: Emergency Med Service: Emergency Medicine Arrival: 05/20/2023 13:12:08 Discharge: 05/20/2023 17:38:00 LOS: 000 04:26 Checkin: 05/20/2023 13:12:08 Checkout: 05/20/2023 17:38:00 Dispo Type: Home or Self Care Address: [address] [place] [address] [address] [place] [id number] Provider Notes: Diagnosis: 1:Encounter for medical screening [...] range between ( 27.2 and 40.8 ) [place] Auto: 5.2 % -- Normal range between [...] range between ( 36.0 and 46.0 ) [place] Absolute: 0.3 x10 MCH: 30.1 pg -- [...] 05/20/2023 15:28:08 Follow up: With: Address: When: [facility] With: Address: When: Remigio Simpson [address] [place] [phone] Business (1) Within 1 week Discharge Orders: Discharge Patient 05/20/23 17:30:00 EST, Discharge to Home, Self Patient Education Information: Anxiety Reaction [facility] Poison Help line: . [facility] Hotline: [place] Tobacco Quit Line: [place], [place]) [address]: [phone] [place], [place]) [address]: (more content not included)... Normal [facility] ED Note-Nursingon 05-20-2023 ED Note-Nursing Patients reports patient had covid 04/21/23 and most of her symptoms are stemming from that; increased memory loss, confusion, weight loss, panic attacks. Patient did take Paxlovid. Patient was seen at [facility] on Wednesday and taken off Xanax as they felt her hallucinations could be from that, and they prescribed hydroxizine. Patient appears anxious upon log feeder and tearful at times. Patient denies SI and HI but is frustrated that she is having these issues and is not her normal self. Electronically signed by Odalys Munroe 05/20/23 14:33 EST Normal [facility] ED Note-Physicianon 05-20-19 ED Note-Physician Chief [...] High Lymph Auto 05/20/23 15:21 22.8 Low [place] Auto 05/20/23 15:21 5.2 Eos Auto 05/20/23 15:21 0.4 Basophil Auto 05/20/23 15:21 0.5 Neutro Absolute 05/20/23 15:21 4.0 Lymph Absolute 05/20/23 15:21 1.3 [place] Absolute 05/20/23 15:21 0.3 Eos Absolute 05/20/23 [...] By: Tremayne Butler MD Electronically signed by [place] Sherri ROGERS 05/25/23 20:00 EST Normal [facility] ED Note-Physician Chief Complaint pt was [...] will obtain a CT head and have protective services social worker speak with the patient she was sent in by her therapist that she describes it Sign out to Dr. Hernandez at the end of my shift for disposition and protective services social worker recommendation Assessment/Plan Psychiatric screening exam [...] MD / (more content not included)... Normal [facility] Ethanolon 05-20-2023 Ethanol, Plasma <10 Normal <=9 [facility] Comment on above: Result Comment: To c onvert mg/dL to g/dL, divide result by 1,000. Legal limit of intoxication is 80 mg/dL (0.08 g/dL). Performed By: #### A #### [address] [address] UDS Compon 05-20-2023 Creatinine [Mass/Vol] 100.2 mg/dL Normal [facility] Comment on above: Performed By: #### C [id number] #### [address] [address] Ur Amph Scrn Negative Normal NEG = <1000 [facility] Comment on above: Performed By: #### C [id number] #### [address] [address] Ur Gabriela Scrn Negative Normal NEG = <200 [facility] Comment on above: Performed By: #### C [id number] #### [address] [address] Ur Benzodia Scrn Negative Normal NEG = <200 [facility] Comment on above: Performed By: #### C [id number] #### [address] [address] Ur Cannab Scrn Negative Normal NEG = <50 [facility] Comment on above: Performed By: #### C [id number] #### [address] [address] Ur Cocaine Scrn Negative Normal NEG = <300 [facility] Comment on above: Performed By: #### C [id number] #### [address] [address] Ur Methadone Scn Negative Normal NEG = <300 [facility] Comment on above: Performed By: #### C [id number] #### [address] [address] Ur Opiate Scrn Negative Normal NEG = <300 [facility] Comment on above: Performed By: #### C [id number] #### [address] [address] Ur Oxy Screen Negative Normal NEG = <100 [facility] Comment on above: Performed By: #### C [id number] #### [facility] [address] [place] [address] Ur Oxy Scrn Qnt 9 ng/mL Normal <=99 [facility] Comment on above: Performed By: #### C [id number] #### [place] [address] [place] [address] Ur PCP Scrn Negative Normal NEG = <25 [facility] Comment on above: Performed By: #### C [id number] #### [address] [address] UA pH 7.0 Normal 4.5 - 7.8 [facility] Comment on above: Performed By: #### C [id number] #### [address] [address] UA Spec Grav 1.013 Normal 1.003-1.035 [facility] Comment on above: Performed By: #### C D:[id number] #### [address] [address] Outside Colonoscopyon 2022 Outside Colonoscopy [id number]#1. 00CD:127 Normal [facility] Reminderson 01-28-2023 Reminders - From: Sarah Griffiths LPN To: GSN - Clinical; Sent: 01/28/2023 13:00:59 EDT Show up: 12/27/2032 07:00:00 EDT Subject: colonoscopy recall Due Date/Time: 01/27/2033 07:00:00 EDT Reminder/Recall Patient due for screening colonoscopy 01/27/2033. Normal [facility] Consent for Procedure/Surger yon 01-12-2023 Consent for Procedure/Surgery [id number] .00CD:127 Normal [facility] Ambulatory Visit Summaryon 0 01-08-2023 Ambulatory Visit Summary DONNIE BULLOCK :1955 Visit Date:01/08/2023 Ambulatory Visit Instructions Your Care Team Attending Physician - AVNI ROGERS, Amor Pollock Primary Care Physician - REMIGIO SIMPSON MD Referring Physician - REMIGIO SIMPSON MD This [...] longer receiving treatment for. Carpal tunnel Normal [facility] RAD - CT Reporton 01-07-2023 RAD - CT Report [id number] .[id number]:127 Normal [facility] Physician Referralon 023 Physician Referral [id number] .[id number]:127 Normal [facility] CBC AUTO DIFFon 09-10-2022 BASO # 0.0 103/ul Normal 0.0-0.1 [facility] Comment on above: Performed By: #### C BC #### [facility] [address] [address] [address] Jess Marie Basophils/100 WBC (Bld) 0.4 % Normal 0.2-2.0 [facility] Comment on above: Performed By: #### C BC #### [facility] [address] [place] [address] Dr. Jess Marie EO # 0.0 103/ul Normal 0.0-0.7 [facility] Comment on above: Performed By: #### C BC #### [facility] [address] [place] [address] Dr. Jess Marie Eosinophils/100 WBC (Bld) 0.4 % Critically low 0.9-7.0 [facility] Comment on above: Performed By: #### C BC #### [facility] [address] [place] [address] Dr. Jess Marie Erythrocyte distribution width (RBC) [Ratio] 12.5 % Normal 11.0-15.0 [facility] Comment on above: Performed By: #### C BC #### [facility] [address] [place] [address] Dr. Jess Marie Hematocrit (Bld) [Volume fraction] 43.1 % Normal 36.0-48.0 [facility] Comment on above: Performed By: #### C BC #### [facility] [address] [place] [address] Dr. Jess Marie Hemoglobin (Bld) [Mass/Vol] 14.0 g/dL Normal 12.0-16.0 [facility] Comment on above: Performed By: #### C BC #### [facility] [address] [place] [address] Dr. Jess Marie IG # 0.01 10e3/ul Normal 0.00-0.03 [facility] Comment on above: Performed By: #### C BC #### [facility] [address] [place] [address] Dr. Jess Marie IG % 0.2 % Normal 0.0-0.5 [facility] Comment on above: Performed By: #### C BC #### [facility] [address] [place] [address] Dr. Jess Marie LYMPH # 1.4 103/ul Normal 1.2-3.8 [facility] Comment on above: Performed By: #### C BC #### [facility] [address] [place] [address] Dr. Jess Marie Lymphocytes/100 WBC (Bld) 26.8 % Normal 20.5-60.0 [facility] Comment on above: Performed By: #### C BC #### [facility] [address] [place] [address] Dr. Jess Marie MANUAL DIFF REQ NO Normal [facility] Comment on above: Performed By: #### C BC #### [facility] [address] [place] [address] Dr. Jess Marie MCH (RBC) [Entitic mass] 29.7 pg Normal 26.7-34.0 [facility] Comment on above: Performed By: #### C BC #### [facility] [address] [place] [address] Dr. Jess Marie MCHC (RBC) [Mass/Vol] 32.5 g/dL Normal 29.9-35.2 [facility] Comment on above: Performed By: #### C BC #### [facility] [address] [place] [address] Dr. Jess Marie MCV (RBC) [Entitic vol] 91.3 fL Normal 81.0-99.0 [facility] Comment on above: Performed By: #### C BC #### [facility] [address] [place] [address] Dr. Jess Marie MONO # 0.3 103/ul Normal 0.3-0.8 [facility] Comment on above: Performed By: #### C BC #### [facility] [address] [place] [address] Dr. Jess Marie Monocytes/100 WBC (Bld) 5.2 % Normal 1.7-12.0 [facility] Comment on above: Performed By: #### C BC #### [facility] [address] [place] [address] Dr. Jess Marie NEUT # 3.5 103/ul Normal 1.4-6.5 [facility] Comment on above: Performed By: #### C BC #### [facility] [address] [address] [address] Jess Marie Neutrophils/100 WBC (Bld) 67.0 % Normal 43.0-75.0 [facility] Comment on above: Performed By: #### C BC #### [facility] [address] [address] [address] Jess Marie Platelet mean volume (Bld) [Entitic vol] 9.7 fL Normal 9.5-13.5 [facility] Comment on above: Performed By: #### C BC #### [facility] [address] [address] [address] Jess Marie PLT 230 103/ul Normal 150-450 [facility] Comment on above: Performed By: #### C BC #### [facility] [address] [place] [address] Dr. Jess Marie RBC 4.72 106/ul Normal 4.20-5.40 [facility] Comment on above: Performed By: #### C BC #### [facility] [address] [address] [address] Jess Marie WBC 5.2 103/ul Normal 4.0-11.0 [facility] Comment on above: Performed By: #### C BC #### [facility] [address] [place] [address] Dr. Jess Marie GLYCOHEMOGLOBIN A1Con 2022 ADA RECOMMENDATION SEE BELOW Normal [facility] Comment on above: Result Comment: ADA RECOMMENDED LIMIT 4.0 - 6.0 ADA THERAPEUTIC TARGET < 7.0 ACTION SUGGESTED > 7.0 Performed By: #### A 1C #### [facility] [address] [place] [address] Dr. Jess Marie Glucose [Mass/Vol] 123 mg/dL Normal [facility] Comment on above: Performed By: #### A 1C #### [facility] [address] [place] [address] Dr. Jess Marie HbA1c (Bld) [Mass fraction] 5.9 % Normal 4.5-6.2 [facility] Comment on above: Performed By: #### A 1C #### [facility] [address] [address] [address] Jess Marie LIPID PROFILEon 09-10-2022 CHOL-HDL RATIO NORM SEE BELOW Normal [facility] Comment on above: Result Comment: 3.3 - 4.4 LOW RISK 4.4 - 7.1 AVERAGE RISK 7.1 - 11.0 MODERATE RISK >11.0 HIGH RISK Performed By: #### T SH, LIVER, BMP, LIPID #### [facility] [address] [address] [address] Jess Marie Cholesterol [Mass/Vol] 267 mg/dL Critically high <=200 [facility] Comment on above: Performed By: #### T SH, LIVER, BMP, LIPID #### [facility] [address] [address] [address] Jess Marie Cholesterol in HDL [Mass/Vol] 79 mg/dL Critically high 40-60 [facility] Comment on above: Performed By: #### T SH, LIVER, BMP, LIPID #### [facility] [address] [address] [address] Jess Marie Cholesterol in LDL [Mass/Vol] 172.4 mg/dL Normal [facility] Comment on above: Performed By: #### T SH, LIVER, BMP, LIPID #### [facility] [address] [address] [address] Jess Marie Cholesterol.total/Mandie sterol in HDL [Mass ratio] 3.4 {ratio} Normal [facility] Comment on above: Performed By: #### T SH, LIVER, BMP, LIPID #### [facility] [address] [address] [address] Jess Marie HDL NORMAL > or = 60 mg/dl - LO W CARDIOVASCULAR RISK <40 mg/dl - HIGH CARDIOVASCULAR RISK Normal [facility] Comment on above: Performed By: #### T SH, LIVER, BMP, LIPID #### [facility] [address] [address] [address] Jess Marie LDL CALC NORMAL SEE BELOW Normal [facility] Comment on above: Result Comment: <100 mg/dl OPTIMAL 100 - 129 mg/dl NEAR OR ABOVE OPTIMAL 130 - 159 mg/dl BORDERLINE HIGH 160 - 189 mg/dl HIGH >190 mg/dl VERY HIGH Performed By: #### T SH, LIVER, BMP, LIPID #### [facility] [address] [place] [address] Dr. Jess Marie Triglyceride [Mass/Vol] 78 mg/dL Normal <=150 [facility] Comment on above: Performed By: #### T SH, LIVER, BMP, LIPID #### [facility] [address] [address] [address] Jess Marie VLDL CALC 15.6 mg/dL Normal [facility] Comment on above: Performed By: #### T SH, LIVER, BMP, LIPID #### [facility] [address] [place] [address] Dr. Jess Marie LIVER PROFILEon 09-10-2022 Albumin [Mass/Vol] 3.9 g/dL Normal 3.4-5.0 [facility] Comment on above: Performed By: #### T SH, LIVER, BMP, LIPID #### [facility] [address] [place] [address] Dr. Jess Marie Albumin/Globulin [Mass ratio] 0.9 {ratio} Normal [facility] Comment on above: Performed By: #### T SH, LIVER, BMP, LIPID #### [facility] [address] [place] [address] Dr. Jess Marie ALP [Catalytic activity/Vol] 61 U/L Normal 46-116 [facility] Comment on above: Performed By: #### T SH, LIVER, BMP, LIPID #### [facility] [address] [place] [address] Dr. Jess Marie ALT [Catalytic activity/Vol] 25 U/L Normal 14-59 [facility] Comment on above: Performed By: #### T SH, LIVER, BMP, LIPID #### [facility] [address] [place] [address] Dr. Jess Marie AST [Catalytic activity/Vol] 27 U/L Normal 15-37 [facility] Comment on above: Performed By: #### T SH, LIVER, BMP, LIPID #### [facility] [address] [place] [address] Dr. Jess Marie BILI, CONJUGATED 0.1 mg/dL Normal 0.0-0.2 [facility] [place] Comment on above: Performed By: #### T SH, LIVER, BMP, LIPID #### [facility] [address] [place] [address] Dr. Jess Marie Bilirubin [Mass/Vol] 0.7 mg/dL Normal 0.2-1.0 [facility] Comment on above: Performed By: #### T SH, LIVER, BMP, LIPID #### [facility] [address] [address] [address] Jess Marie Globulin (S) [Mass/Vol] 4.2 g/dL Normal [facility] Comment on above: Performed By: #### T SH, LIVER, BMP, LIPID #### [facility] [address] [place] [address] Dr. Jess Marie Protein [Mass/Vol] 8.1 g/dL Normal 6.4-8.2 [facility] Comment on above: Performed By: #### T SH, LIVER, BMP, LIPID #### [facility] [address] [place] [address] Dr. Jess Marie PROF CHEM 8 (BAS METB)on Anion gap [Moles/Vol] 13.1 mmol/L Normal [facility] Comment on above: Performed By: #### T SH, LIVER, BMP, LIPID #### [facility] [address] [place] [address] Dr. Jess Marie Calcium [Mass/Vol] 9.6 mg/dL Normal 8.5-10.1 [facility] Comment on above: Performed By: #### T SH, LIVER, BMP, LIPID #### [facility] [address] [place] [address] Dr. Jess Marie Chloride [Moles/Vol] 105 mmol/L Normal 98-107 [facility] Comment on above: Performed By: #### T SH, LIVER, BMP, LIPID #### [facility] [address] [place] [address] Dr. Jess Marie CO2 [Moles/Vol] 28.9 mmol/L Normal 21.0-32.0 [facility] Comment on above: Performed By: #### T SH, LIVER, BMP, LIPID #### [facility] [address] [address] [address] Jess Marie Creatinine [Mass/Vol] 0.62 mg/dL Normal 0.55-1.02 [facility] Comment on above: Performed By: #### T SH, LIVER, BMP, LIPID #### [facility] [address] [address] [address] Jess Marie EGFR-AF TURKMEN >60 Normal >=60 [facility] Comment on above: Performed By: #### T SH, LIVER, BMP, LIPID #### [facility] [address] [address] [address] Jess Marie EGFR-NON AF TURKMEN >60 Normal >=60 [facility] Comment on above: Performed By: #### T SH, LIVER, BMP, LIPID #### [facility] [address] [address] [address] Jess Marie Glucose [Mass/Vol] 112 mg/dL Critically high 74-106 [facility] Comment on above: Performed By: #### T SH, LIVER, BMP, LIPID #### [facility] [address] [address] [address] Jess Marie Potassium [Moles/Vol] 5.0 mmol/L Normal 3.5-5.1 [facility] Comment on above: Result Comment: spec imen slightly hemolyzed Performed By: #### T SH, LIVER, BMP, LIPID #### [facility] [address] [address] [address] Jess Marie Sodium [Moles/Vol] 142 mmol/L Normal 136-145 [facility] Comment on above: Performed By: #### T SH, LIVER, BMP, LIPID #### [facility] [address] [address] [address] Jess Marie Urea nitrogen [Mass/Vol] 15.0 mg/dL Normal 7.0-18.0 [facility] Comment on above: Performed By: #### T SH, LIVER, BMP, LIPID #### [facility] [address] [place], [place] [address] Dr. Jess Marie Urea nitrogen/Creatinine [Mass ratio] 24.2 mg/mg Normal [facility] Comment on above: Performed By: #### T SH, LIVER, BMP, LIPID #### [facility] [address] [place], [place] [address] Dr. Jess Marie TSHon 09-10-2022 TSH 1.518 uIU/mL Normal 0.358-3.740 [facility] Comment on above: Performed By: #### T SH, LIVER, BMP, LIPID #### [facility] [id number] Jess Marie US CAROTID ART BILon 023 US CAROTID ART KEN EXAMINATION: US CAROTID ART KEN HISTORY: Family history of stroke ; episodes [...] HERSON REBOLLEDO Date: 2022-09-10 12:26 Normal [facility] XR ABD FLAT_UPon 06-10-2022 XR ABD [...] by: HERSON REBOLLEDO Date: 2022-06-10 08:38 Normal [facility] Covid-19 PCR (CVDTB)on 10-16 SARS-CoV-2 (COVID-19) RNA YAYA+probe Ql (Unsp spec) Not detected Normal NOT DETECTED [facility] Comment on above: Result Comment: This test is not yet approved or cleared by the [place] FDA. When there are no FDA-approved or cleared tests available, and other criteria are met, FDA can make tests available under an emergency access mechanism called an Emergency Use Authorization (EUA). The EUA for this test is supported by the [place] of [employer] and Human Service's (HHS's) declaration [...] consistent with SARS-CoV-2. Performed By: #### [facility] #### [facility] [address] [place] [address] Dr. Jess Marie Vital Signs Date Time Vital Sign Value Performing Clinician Blu arango 05-03-2024 09:38-0500 Body height 163.8 cm Herson Uribe DPM Work Phone: [facility] 05-03-2024 09:38-0500 Body mass index (BMI) [Ratio] 26.87 kg/m2 Herson Uribe DPM Work Phone: [facility] 05-03-2024 09:38-0500 Body weight 72.12 kg Herson Uribe DPM Work Phone: [facility] 04-19-2024 12:37-0500 Body weight 73.8 kg Sera Killian APRN.CNP Work Phone: [facility] 04-19-2024 12:37-0500 Diastolic blood pressure 83 mm[Hg] Sera Killian APRN.[employer] Work Phone: [facility] 04-19-2024 12:37-0500 Heart rate 76 /min Sera Killian APRN.[employer] Work Phone: [facility] 04-19-2024 12:37-0500 Systolic blood pressure 129 mm[Hg] Sera Killian APRN.[employer] Work Phone: [facility] 03-20-2024 13:52-0500 Body mass index (BMI) [Ratio] 26.4 kg/m2 Christopher Chandrika DO Work Phone: [facility] 03-20-2024 13:52-0500 Body weight 70.85 kg Christopher Chandrika DO Work Phone: [facility] 03-20-2024 13:52-0500 Diastolic blood pressure 76 mm[Hg] Christopher Chandrika DO Work Phone: [facility] 03-20-2024 13:52-0500 Heart rate 77 /min Christopher Chandrika DO Work Phone: [facility] 03-20-2024 13:52-0500 SaO2% (BldA) [Mass fraction] 96 % Christopher Chandrika DO Work Phone: [facility] 03-20-2024 13:52-0500 Systolic blood pressure 127 mm[Hg] Christopher Chandrika DO Work Phone: [facility] 02-02-2024 09:22-0400 Body height 163.8 cm Herson Uribe DPM Work Phone: [facility] 02-02-2024 09:22-0400 Body mass index (BMI) [Ratio] 27.04 kg/m2 Herson Uribe DPM Work Phone: [facility] 02-02-2024 09:22-0400 Body weight 72.58 kg Herson Uribe DPM Work Phone: [facility] 01-25-2024 11:45-0400 Body mass index (BMI) [Ratio] 27.11 kg/m2 Christopher Chandrika DO Work Phone: [facility] 01-25-2024 11:45-0400 Body weight 72.76 kg Christopher Chandrika DO Work Phone: [facility] 01-25-2024 11:45-0400 Diastolic blood pressure 77 mm[Hg] Christopher Chandrika DO Work Phone: [facility] 01-25-2024 11:45-0400 Heart rate 73 /min Christopher Chandrika DO Work Phone: [facility] 01-25-2024 11:45-0400 SaO2% (BldA) [Mass fraction] 97 % Christopher Chandrika DO Work Phone: [facility] 01-25-2024 11:45-0400 Systolic blood pressure 125 mm[Hg] Christopher Chandrika DO Work Phone: [facility] 09-22-2023 07:30-0400 Body temperature 98 [degF] MD Remigio Simpson Work Phone: [facility] 09-22-2023 07:30-0400 Diastolic blood pressure 60 mm[Hg] MD Remigio Simpson Work Phone: [facility] 09-22-2023 07:30-0400 Heart rate 73 /min MD Remigio Simpson Work Phone: [facility] 09-22-2023 07:30-0400 Respiratory rate 18 /min MD Remigio Simpson Work Phone: [facility] 09-22-2023 07:30-0400 SaO2% (BldA) [Mass fraction] 99 % MD Remigio Simpson Work Phone: [facility] 09-22-2023 07:30-0400 Systolic blood pressure 107 mm[Hg] MD Remigio Simpson Work Phone: [facility] 09-21-2023 08:44-0400 Body height 165.1 cm MD Remigio Simpson Work Phone: [facility] 09-20-2023 08:42-0400 Body weight 67.6 kg MD Remigio Simpson Work Phone: [facility] 09-14-2023 22:32-0400 Body temperature 98 [degF] MD Remigio Simpson Work Phone: [facility] 09-14-2023 22:32-0400 Diastolic blood pressure 70 mm[Hg] MD Remigio Simpson Work Phone: [facility] 09-14-2023 22:32-0400 Heart rate 81 /min MD Remigio Simpson Work Phone: [facility] 09-14-2023 22:32-0400 Respiratory rate 18 /min MD Remigio Simpson Work Phone: [facility] 09-14-2023 22:32-0400 SaO2% (BldA) [Mass fraction] 97 % MD Remigio Simpson Work Phone: [facility] 09-14-2023 22:32-0400 Systolic blood pressure 136 mm[Hg] MD Remigio Simpson Work Phone: [facility] 09-14-2023 19:45-0400 Body height 165.1 cm MD Remigio Simpson Work Phone: [facility] 09-14-2023 19:45-0400 Body weight 66.85 kg MD Remigio Simpson Work Phone: [facility] 06-08-2023 07:30-0500 Body temperature 97.6 [degF] [facility] 06-08-2023 07:30-0500 Diastolic blood pressure 62 mm[Hg] [facility] 06-08-2023 07:30-0500 Heart rate 75 /min [facility] 06-08-2023 07:30-0500 Respiratory rate 16 /min [facility] 06-08-2023 07:30-0500 SaO2% (BldA) [Mass fraction] 97 % [facility] 06-08-2023 07:30-0500 Systolic blood pressure 110 mm[Hg] [facility] 06-07-2023 09:00-0500 Body weight 67.5 kg [facility] 06-04-2023 10:17-0500 Body height 166.37 cm [facility] 05-25-2023 14:29-0500 Diastolic blood pressure 80 mm[Hg] DO Robert Zuly Work Phone: [facility] 05-25-2023 14:29-0500 Heart rate 91 /min DO Robert Zuly Work Phone: [facility] 05-25-2023 14:29-0500 Respiratory rate 18 /min DO Robert Zuly Work Phone: [facility] 05-25-2023 14:29-0500 SaO2% (BldA) [Mass fraction] 98 % DO Robert Zuly Work Phone: [facility] 05-25-2023 14:29-0500 Systolic blood pressure 110 mm[Hg] DO Robert Zuly Work Phone: [facility] 05-25-2023 13:06-0500 Body temperature 98.3 [degF] DO Robert Zuly Work Phone: [facility] 05-25-2023 11:38-0500 Body height 165.1 cm DO Robert Zuly Work Phone: [facility] 05-25-2023 11:38-0500 Body weight 68.1 kg DO Robert Zuly Work Phone: [facility] 01-08-2023 13:49-0400 Diastolic blood pressure 94 mm[Hg] Amor HOLLY [facility] [place] 01-08-2023 13:49-0400 Heart rate 80 /min Amor MONTOYAL [facility] [place] 01-08-2023 13:49-0400 Respiratory rate 16 /min Amor HOLLY [facility] [place] 01-08-2023 13:49-0400 Systolic blood pressure 136 mm[Hg] Amor HOLLY [facility] [place] Encounters Encounter Date Encounter Type Care Provider Facility Start: 05-22-2024 End: 05-22-2024 Refill Sera Killian APRN.[employer] Work Phone: Neurology Start: 05-15-2024 End: 05-22-2024 Telephone encounter Sera Killian APRN.[employer] Work Phone: Neurology Comment on above: Patient Question; Pa walter Update (Spouse requesting to speak with nurse) Start: 05-04-2024 End: 05-04-2024 Orders Only Remigio Simpson MD Work Phone: [facility] Comment on above: Generalized weakness (Primary Dx); Rapidly progressive dementia (CMS/HCC); Unsteady gait Start: 05-03-2024 End: 05-03-2024 Bamboo flowsheet Herson Uribe DPM Work Phone: [facility] Start: 05-03-2024 End: 05-03-2024 Bamboo flowsheet Herson Uribe DPM Work Phone: [facility] Start: 05-03-2024 End: 05-03-2024 Patient encounter procedure Herson Uribe DPM Work Phone: [facility] Comment on above: Dermatophytosis of n ail (Primary Dx); Dystrophic nail; Pain around toenail, right foot; Pain around toenail, left foot Start: 05-03-2024 End: 05-03-2024 ambulatory HERSON URIBE Not Available Start: 05-01-2024 End: 05-01-2024 Bamboo flowsheet Deneen Miller TRAIN [employer]OL ELECTRONIC TECHNICIAN Work Phone: [facility] Start: 05-01-2024 End: 05-01-2024 Bamboo flowsheet Deneen Miller TRAIN CONTROL ELECTRONIC TECHNICIAN Work Phone: [facility] Start: 05-01-2024 End: 05-01-2024 ambulatory Deneen Miller TRAIN CONTROL ELECTRONIC TECHNICIAN Work Phone: [facility] Comment on above: Generalized weakness (Primary Dx); Rapidly progressive dementia (CMS/HCC); Unsteady gait Start: 04-27-2024 End: 04-27-2024 Bamboo flowsricardo Miller TRAIN CONTROL ELECTRONIC TECHNICIAN Work Phone: [facility] Start: 04-27-2024 End: 04-27-2024 Bamboo flowsheet Deneen Miller TRAIN CONTROL ELECTRONIC TECHNICIAN Work Phone: [facility] Start: 04-27-2024 End: 04-27-2024 ambulatory Deneen Miller TRAIN CONTROL ELECTRONIC TECHNICIAN Work Phone: [facility] Comment on above: Generalized weakness (Primary Dx); Rapidly progressive dementia (CMS/HCC); Unsteady gait Start: 04-25-2024 End: 04-25-2024 Bamboo flowsheet Beti Chávez TRAIN CONTROL ELECTRONIC TECHNICIAN [facility] Start: 04-25-2024 End: 04-25-2024 Bamboo flowsheet Beti Chávez TRAIN CONTROL ELECTRONIC TECHNICIAN [facility] Start: 04-25-2024 End: 04-26-2024 Telephone encounter Sera Killian APRN.[employer]ER Work Phone: Neurology Comment on above: Medication Follow-up Start: 04-25-2024 End: 04-25-2024 ambulatory Beti Chávez TRAIN CONTROL ELECTRONIC TECHNICIAN [facility] Comment on above: Generalized weakness (Primary Dx); Rapidly progressive dementia (CMS/HCC); Unsteady gait Start: 04-20-2024 End: 04-20-2024 Bamboo flowsricardo Miller TRAIN CONTROL ELECTRONIC TECHNICIAN Work Phone: [facility] Start: 04-20-2024 End: 04-20-2024 Bamboo flowsheet Deneen Miller TRAIN CONTROL ELECTRONIC TECHNICIAN Work Phone: [facility] Start: 04-20-2024 End: 04-21-2024 Telephone encounter Sera Killian APRN.SEMICONDUCTORS WAFER BREAKER Work Phone: Neurology Start: 04-20-2024 End: 04-20-2024 ambulatory Deneen Miller TRAIN CONTROL ELECTRONIC TECHNICIAN Work Phone: [facility] Comment on above: Generalized weakness (Primary Dx); Rapidly progressive dementia (CMS/HCC); Unsteady gait Start: 04-19-2024 End: 04-19-2024 ambulatory SERA KILLIAN Facility:[facility] Start: 04-19-2024 End: 04-19-2024 Patient encounter procedure Sera Klilian TENNIS COACH.SEMICONDUCTORS WAFER BREAKER Work Phone: Neurology Comment on above: Lewy body dementia w ith behavioral disturbance (HCC) (Primary Dx); Other depression; RBD (REM behavioral disorder); Secondary parkinsonism, unspecified secondary Parkinsonism type (HCC); Visual hallucinations Start: 04-18-2024 End: 04-18-2024 Bamboo flowsheet Beti Tattersall TRAIN CONTROL ELECTRONIC TECHNICIAN [facility] Start: 04-18-2024 End: 04-18-2024 Bamboo flowsheet Beti Tattersall TRAIN CONTROL ELECTRONIC TECHNICIAN [facility] Start: 04-18-2024 End: 04-18-2024 ambulatory Beti Tattersall TRAIN CONTROL ELECTRONIC TECHNICIAN [facility] Comment on above: Generalized weakness (Primary Dx); Rapidly progressive dementia (CMS/HCC); Unsteady gait Start: 04-12-2024 End: 04-12-2024 Clinisync Result Encounter Remigio Simpson MD Work Phone: [facility] Department Unsolicited Start: 04-12-2024 End: 04-12-2024 Clinisync Result Encounter Remigio Simpson MD Work Phone: [facility] Unsolicited Start: 04-12-2024 End: 04-12-2024 Orders Only Remigio Simpson MD Work Phone: [facility] Comment on above: Dysuria (Primary Dx) Urinary tract infect ion without hematuria, site unspecified Start: 04-06-2024 End: 04-06-2024 Bamboo flowsheet Beti Tattersall TRAIN CONTROL ELECTRONIC TECHNICIAN [facility] Start: 04-06-2024 End: 04-06-2024 Bamboo flowsheet Beti Tattersall TRAIN CONTROL ELECTRONIC TECHNICIAN [facility] Start: 04-06-2024 End: 04-06-2024 ambulatory Beti Tattersall TRAIN CONTROL ELECTRONIC TECHNICIAN [facility] Comment on above: Generalized weakness (Primary Dx); Rapidly progressive dementia (CMS/HCC); Unsteady gait Start: 04-04-2024 End: 04-04-2024 Bamboo flowsheet Alexandria Maya Flor PT Work Phone: [facility] Start: 04-04-2024 End: 04-04-2024 Bamboo flowsheet Alexandria Maya Flor PT Work Phone: [facility] Start: 04-04-2024 End: 04-04-2024 ambulatory Alexandria Maya Flor PT Work Phone: [facility] Comment on above: Generalized weakness (Primary Dx); Rapidly progressive dementia (CMS/HCC); Unsteady gait; Dizziness Start: 03-30-2024 End: 03-30-2024 ambulatory Deneen Miller TRAIN CONTROL ELECTRONIC TECHNICIAN Work Phone: [facility] Comment on above: Generalized weakness (Primary Dx); Rapidly progressive dementia (CMS/HCC); Unsteady gait Start: 03-28-2024 End: 03-28-2024 Bamboo flowsheet Beti Chávez TRAIN CONTROL ELECTRONIC TECHNICIAN [facility] Start: 03-28-2024 End: 03-28-2024 Bamboo flowsheet Beti Chávez TRAIN CONTROL ELECTRONIC TECHNICIAN [facility] Start: 03-28-2024 End: 03-28-2024 ambulatory Beti Chávez TRAIN CONTROL ELECTRONIC TECHNICIAN [facility] Comment on above: Generalized weakness (Primary Dx); Rapidly progressive dementia (CMS/HCC); Unsteady gait Start: 03-22-2024 End: 03-22-2024 Bamboo flowsheet Alexandria Maya Flor PT Work Phone: [facility] Start: 03-22-2024 End: 03-22-2024 Bamboo flowsheet Alexandria J Flor PT Work Phone: [facility] Start: 03-22-2024 End: 03-22-2024 ambulatory Alexandria J Flor PT Work Phone: [facility] Comment on above: Generalized weakness (Primary Dx); Rapidly progressive dementia (CMS/HCC); Unsteady gait; Dizziness Start: 03-20-2024 End: 03-20-2024 Office outpatient visit 25 minutes Rei Cohenett DO Work Phone: [facility] Comment on above: 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, unspecified dementia severity (CMS/HCC) (Primary Dx); Anxiety Start: 03-20-2024 End: 03-20-2024 ambulatory REI COBOS Not Available Start: 03-20-2024 End: 03-20-2024 ambulatory Deneen Miller TRAIN CONTROL ELECTRONIC TECHNICIAN Work Phone: [facility] Comment on above: Generalized weakness (Primary Dx); Rapidly progressive dementia (CMS/HCC); Unsteady gait Start: 03-16-2024 End: 03-16-2024 ambulatory Alexandria Maya Flor PT Work Phone: [facility] Comment on above: Generalized weakness (Primary Dx); Rapidly progressive dementia (CMS/HCC); Unsteady gait Start: 03-14-2024 End: 03-14-2024 Telephone encounter Remigio Simpson MD Work Phone: [facility] Start: 03-09-2024 End: 03-09-2024 Orders Only Remigio Simpson MD Work Phone: [facility] Start: 02-17-2024 End: 02-17-2024 Orders Only Remigio Simpson MD Work Phone: [facility] Comment on above: DALILA (generalized anx iety disorder) (CMS/HCC) (Primary Dx) Start: 02-09-2024 End: 02-09-2024 Clinical Support Georgina Safnord PT Work Phone: [facility] Comment on above: Dizziness (Primary D x); Rapidly progressive dementia (CMS/HCC); Bilateral primary osteoarthritis of knee Start: 02-02-2024 End: 02-02-2024 Bamboo flowsheet Herson Uribe DPM Work Phone: [facility] Start: 02-02-2024 End: 02-02-2024 Bamboo flowsheet Herson Uribe DPM Work Phone: [facility] Start: 02-02-2024 End: 02-02-2024 Patient encounter procedure Herson Uribe DPM Work Phone: [facility] Comment on above: Dermatophytosis of n ail (Primary Dx); Dystrophic nail; Pain around toenail, right foot; Pain around toenail, left foot Start: 02-02-2024 End: 02-02-2024 ambulatory HERSON URIBE Not Available Start: 01-25-2024 End: 01-25-2024 Bamboo flowsheet Rei Cobos DO Work Phone: [facility] Start: 01-25-2024 End: 01-25-2024 Bamboo flowsheet Rei Cobos DO Work Phone: [facility] Start: 01-25-2024 End: 01-25-2024 Office outpatient visit 25 minutes Rei Cobos DO Work Phone: [facility] Comment on above: 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, unspecified dementia severity (CMS/HCC) (Primary Dx) Start: 01-25-2024 End: 01-25-2024 ambulatory REI COBOS Not Available Start: 12-24-2023 End: 12-24-2023 ambulatory REMIGIO SIMPSON Not Available Start: 11-04-2023 ambulatory Lionel Umana acility:[facility] Start: 11-02-2023 End: 11-02-2023 ambulatory HERSON URIBE Not Available Start: 10-13-2023 End: 10-13-2023 ambulatory REI COBOS Not Available Start: 10-04-2023 End: 10-04-2023 ambulatory REMIGIO SIMPSON Not Available Start: 09-30-2023 End: 09-30-2023 ambulatory Rei Cobos Facility:[facility] Start: 09-27-2023 End: 09-27-2023 ambulatory MONICA SILVER Not Available Start: 09-15-2023 Non-patient / Non-visit MD María Elena Simpson Work Phone: [facility] Work Phone: Start: 09-14-2023 End: 09-22-2023 Evaluation and management of inpatient MD Remigio Simpson Work Phone: [facility] Work Phone: Start: 09-08-2023 End: 09-08-2023 ambulatory REI COBOS Not Available Start: 09-06-2023 End: 09-06-2023 ambulatory REI COBOS Not Available Start: 08-02-2023 End: 08-02-2023 ambulatory HERSON Dylan URIBE Not Available Start: 07-19-2023 End: 07-19-2023 ambulatory [...] Available Start: 05-25-2023 Non-patient / Non-visit [facility] Work Phone: Start: 05-25-2023 End: 06-08-2023 Evaluation and management of inpatient DO Reeded Zuly Work Phone: [facility] Work Phone: Start: 05-20-2023 End: 05-20-2023 Emergency department patient visit Remigio Simpson MD Facility:[facility] Start: 01-27-2023 End: 01-28-2023 ambulatory Amor Pollock AVNI Facility:CD:[id number] Start: 01-08-2023 End: 01-09-2023 ambulatory Amor Pollock JANL Facility: [facility] Start: 01-08-2023 End: 01-08-2023 Patient encounter procedure Amor Pollock NILL General Surgery Nill/Said [facility] Start: 12-30-2022 ambulatory Amor HOLLY Facility : [facility] Start: 09-10-2022 End: 09-11-[address] REMIGIO SIMPSON Facility:[facility] Start: 06-09-2022 End: 06-10-[address] REMIGIO SIMPSON Facility:[facility] Start: 03-12-2022 End: 03-13-[address] REMIGIO SIMPSON Facility:[facility] Start: 11-04-2021 End: 11-04-[address] REMIGIO SIMPSON Facility:[facility] Procedures Date Procedure Procedure Detail Performing Clinician Start: 04-12-2024 [facility] UA (CLEAN/CATCH) MICROSCOPIC IF INDICATE Remigio Simpson MD Work Phone: Start: 12-29-2023 Mammography Remigio zacarias MD Work Phone: Start: 06-30-2023 [facility]H UA (CLEAN/CATCH) MICROSCOPIC IF INDICATE Remigio Simpson MD Work Phone: Start: 01-27-2023 Colonoscopy Remigio zacarias MD Work Phone: Start: 12-25-2020 Colonoscopy Amor CHOPRA Start: 06-29-2014 right carpal tunnel release Amor HOLLY Start: 06-15-2014 left carpal tunnel release Amor NILL Adenoid excision Amor NIL L Dilation and curetta ge of uterus Amor MONTOYAL Comment on above: 2005 tonsillectomy 2 Amor HOLLY Comment on above: 1958 Vaginal hysterectomy Amor HOLLY Plan of Treatment Date Care Activity Detail Author Start: 01-27-2033 Screening for malign ant neoplasm of colon [facility] Start: 2028 RSV Vaccine (1 - 1-d ose 75+ series) RSV Vaccine (1 - 1-dose 75+ series) [facility] Start: 12-28-2024 Screening for malign ant neoplasm of breast Mammogram [facility] Start: 08-01-2024 End: 08-01-2024 Patient encounter procedure 08/01/2024 9:30 AM EDT Office Visit [facility] [address] [facility] [place] [phone] Herson Uribe, DPTrinity [address] [place], [place] [phone] [facility] Start: 07-27-2024 End: 07-27-2024 Patient encounter procedure 07/27/2024 10:30 AM EDT Office Visit Neurology [address] [place] [address] [phone] Sera Killian APRN.SEMICONDUCTORS WAFER BREAKER [address] [place] [address] [phone] Report Neurology Comment on above: Report Start: 06-19-2024 End: 06-19-2024 Patient encounter procedure 06/19/2024 1:30 PM EST Office Visit [facility] [address] [place] [phone] Rei Cobos DO [address] [place], [place] [id number] [facility] Start: 06-12-2024 End: 06-12-2024 Patient encounter procedure 06/12/2024 12:00 PM EST Office Visit [facility] [place] [phone] Rei Cobos, DO [address] [place] [address] [facility] Start: 05-29-2024 End: 05-29-2024 Patient encounter procedure 05/29/2024 8:45 AM EST Office Visit [facility] [address] [place] [phone] Rei Cobos, DO [address] [place] [address] [facility] Start: 05-17-2024 Advance Directive Discussion Advance Directive Discussion [facility] Start: 05-04-2024 End: 05-04-2024 ambulatory 05/04/2024 11:30 AM EST Treatment [facility] [address] [facility] [place] [phone] Deneen Miller, TRAIN CONTROL ELECTRONIC TECHNICIAN [address] [place] [address] [facility] Start: 05-03-2024 End: 05-03-2024 Patient encounter procedure [facility] Comment on above: Arrived Start: 05-01-2024 End: 05-01-2024 ambulatory 05/01/2024 7:30 AM EST Treatment [facility] [address] [facility] [phone] Deneen Miller, TRAIN CONTROL ELECTRONIC TECHNICIAN [address] [place] [address] [facility] Start: 04-28-2024 End: 04-28-2024 ambulatory 04/28/2024 10:00 AM EST Treatment [facility] [address] [place] [phone] Alexandria Mcnair, PT [address] [place], [place] [phone] [facility] Start: 04-27-2024 End: 04-27-2024 ambulatory 04/27/2024 10:00 AM EST Treatment [facility] [address] [place] [phone] Alexandria Mcnair, PT [address] [place] [address] [facility] Start: 04-25-2024 End: 04-25-2024 ambulatory 04/25/2024 10:30 AM EST Treatment [facility] [address] [place] [phone] Deneen Miller, TRAIN CONTROL ELECTRONIC TECHNICIAN [address] [place] [address] [facility] Start: 04-20-2024 End: 04-20-2024 ambulatory 04/20/2024 11:30 AM EST Treatment [facility] [address] [place] [phone] Deneen Miller, TRAIN CONTROL ELECTRONIC TECHNICIAN [address] [place] [address] [facility] Start: 04-18-2024 End: 04-18-2024 ambulatory [facility] Comment on above: Arrived Start: 04-12-2024 End: 04-12-2025 Bacteria identified in Urine by Culture Urine culture (clean catch) Microbiology Routine Dysuria Expected: 04/12/2024 (Approximate), Expires: 04/12/2025 [facility] Work Phone: Comment on above: Expected: 04/12/2024 (Approximate), Expires: 04/12/2025 Start: 04-12-2024 End: 04-12-2025 Urinalysis complete panel - Urine Urinalysis with reflex microscopic (clean catch) Lab Routine Dysuria Expected: 04/12/2024 (Approximate), Expires: 04/12/2025 [facility] Comment on above: Expected: 04/12/2024 (Approximate), Expires: 04/12/2025 Start: 04-11-2024 End: 04-11-2024 ambulatory 04/11/2024 11:00 AM EST Treatment [facility] [address] [place] [phone] Beti Chávez PTA [facility] Start: 04-06-2024 End: 04-06-2024 ambulatory [facility] Comment on above: Arrived Start: 04-04-2024 End: 04-04-2024 ambulatory [facility] Comment on above: Arrived Start: 03-30-2024 End: 03-30-2024 ambulatory 03/30/2024 11:30 AM EST Treatment [facility] [address] [place] [phone] Deneen Miller, LATOYA [address] [place], [place] [phone] [facility] Start: 03-28-2024 End: 03-28-2024 ambulatory 03/28/2024 11:00 AM EST Treatment [facility] [address] [place] [phone] Beti Chávze PTA [facility] Start: 03-22-2024 End: 03-22-2024 ambulatory [facility] Comment on above: Arrived Start: 03-20-2024 End: 03-20-2024 Patient encounter procedure 03/20/2024 2:00 PM EST Office Visit [facility] [address] [place] [address] Rei Cobos, [address] [place] [address] [facility] Start: 03-20-2024 End: 03-20-2024 ambulatory 03/20/2024 12:30 PM EST Treatment [facility] [address] [place] [phone] Deneen Miller, TRAIN CONTROL ELECTRONIC TECHNICIAN [address] [place] [address] [facility] Start: 03-16-2024 End: 03-16-2024 ambulatory 03/16/2024 12:30 PM EDT Evaluation [facility] [address] [place] [phone] Alexandria Mcnair, PT [address] [place] [address] [facility] Start: 03-14-2024 End: 03-14-2025 Bacteria identified in Urine by Culture Urine culture (clean catch) Microbiology Routine Dysuria Expected: 03/14/2024 (Approximate), Expires: 03/14/2025 [facility] Work Phone: Comment on above: Expected: 03/14/2024 (Approximate), Expires: 03/14/2025 Start: 03-14-2024 End: 03-14-2025 Urinalysis complete panel - Urine Urinalysis with reflex microscopic (clean catch) Lab Routine Dysuria Expected: 03/14/2024 (Approximate), Expires: 03/14/2025 [facility] Comment on above: Expected: 03/14/2024 (Approximate), Expires: 03/14/2025 Start: 02-02-2024 End: 02-02-2024 Patient encounter procedure [facility] Comment on above: Arrived Start: 01-25-2024 End: 01-25-2024 Patient encounter procedure 01/25/2024 12:00 PM EDT Office Visit [facility] [address] [facility] [place] [address] Rei Cobos, [address] [place] [address] Ar[address] [facility] Comment on above: Arrived Start: 01-16-2024 Covid-19 Vaccine () Covid-19 Vaccine () [facility] Start: 01-16-2024 Influenza vaccination Influenza Vacc ine (#1) [facility] Start: 10-24-2023 Screening for malign ant neoplasm of colon [facility] Start: 09-22-2023 [facility] Start: 09-15-2023 Administration of prophylactic treatment [facility] Start: 09-14-2023 Hospital admission [facility] Start: 09-06-2023 End: 09-06-2023 Patient encounter procedure 09/06/2023 9:00 AM EDT Office Visit [facility] [address] [place] [address] Remigio Simpson MD [address] [place] [phone] [facility] Start: 06-30-2023 End: 06-30-2024 Bacteria identified in Urine by Culture Urine culture (clean catch) Microbiology Routine Dysuria Expected: 06/30/2023 (Approximate), Expires: 06/30/2024 [facility] Comment on above: Expected: 06/30/2023 (Approximate), Expires: 06/30/2024 Start: 06-30-2023 End: 06-30-2024 Urinalysis complete panel - Urine Urinalysis with reflex microscopic (clean catch) Lab Routine Dysuria Expected: 06/30/2023 (Approximate), Expires: 06/30/2024 [facility] Work Phone: Comment on above: Expected: 06/30/2023 (Approximate), Expires: 06/30/2024 Start: 06-08-2023 [facility] Start: 05-26-2023 Administration of prophylactic treatment [facility] Start: 05-25-2023 Hospital admission [facility] Start: 05-25-2023 [facility] Start: 05-17-2023 Advance Directive Discussion Advance Directive Discussion [facility] Start: 03-09-2021 Pneumococcal Vaccine : 50+ (2 of 2 - PCV) Pneumococcal Vaccine: 50+ (2 of 2 - PCV) [facility] Start: 03-09-2021 Pneumococcal Vaccine : 65+ (2 of 2 - PCV) Pneumococcal Vaccine: 65+ (2 of 2 - PCV) [facility] Start: 03-09-2021 Pneumococcal Vaccine : 65+ Years (2 - PCV) Pneumococcal Vaccine: 65+ Years (2 - PCV) [facility] Start: 03-09-2021 Pneumococcal Vaccine : 65+ Years (2 of 2 - PCV) Pneumococcal Vaccine: 65+ Years (2 of 2 - PCV) [facility] Start: 2018 Screening for osteoporosis Bone Density Screening [facility] Start: 11-09-2003 Shingrix Vaccine (1 of 2) Kennedy grix Vaccine (1 of 2) [facility] Start: 1998 Diabetes Screening Diabetes Screenin g [facility] Start: 1998 Lipid panel Lipid Screening [facility] Start: 1998 Screening for malign ant neoplasm of colon [facility] Start: 1993 Screening for malign ant neoplasm of breast [facility] Start: 1972 Urine microalbumin profile DTaP,Tdap,Td Vaccine (1 - Tdap) [facility] Start: 11-09-1971 Anxiety Screening Anxiety Screening [facility] Start: 11-09-1971 Hepatitis C screening Hepatitis C Sc reening [facility] Start: 1953 Medicare Annual Well ness (AWV) Medicare Annual Wellness (AWV) [facility] Start: 1953 Screening for malign ant neoplasm of colon [facility] Patient Education [facility] Work Phone: Patient referral [facility] Work Phone: Immunizations Immunization Date Immunization Notes Care Provider Fa [facility] 02-18-2023 Influenza, Seasonal, Quadrivalent, Adjuvanted Remigio Simpson MD Work Phone: [facility] 02-18-2023 influenza virus vacc ine, unspecified formulation Remigio Simpson MD Work Phone: [facility] 03-17-2022 SARS-CoV-2 (COVID-19 ) [id number] Amor HOLLY General Surgery [place] 02-22-2022 Influenza, High-dose Seasonal, Quadrivalent, Preservative Free Remigio Simpson MD Work Phone: [facility] 10-05-2021 SARS-CoV-2 mRNA (cuvedmukdyq-fvam-ekfatk e) vaccine Amor NILL [facility] 03-06-2021 SARS-CoV-2 (COVID-19 ) mRNA BNT-162b2 vax Amor NILL [facility] 02-14-2021 Influenza, Seasonal, Quadrivalent, Adjuvanted Remigio Simpson MD Work Phone: [facility] 07-30-2020 SARS-CoV-2 (COVID-19 ) mRNA BNT-162b2 vax Amor NILL [facility] Comment on above: Result Comment: 2022: [id number] 07-09-2020 SARS-CoV-2 (COVID-19 ) mRNA BNT-162b2 vax Amor MONTOYAL [facility] Comment on above: Result Comment: 2022: [id number] 03-09-2020 pneumococcal polysaccharide vaccine, 23 valent eRmigio Simpson MD Work Phone: [facility] 02-21-2020 Influenza, Seasonal, Quadrivalent, Adjuvanted Remigio Simpson MD Work Phone: [facility] 01-25-2019 influenza, high dose seasonal, preservative-free Remigio Simpson MD Work Phone: [facility] 02-15-2018 influenza, injectabl e, quadrivalent, preservative free Remigio Simpson MD Work Phone: [facility] 04-14-2017 influenza, seasonal, injectable, preservative free Remigio Simpson MD Work Phone: [facility] 03-15-2015 influenza, seasonal, injectable Remigio Simpson MD Work Phone: [facility] 03-04-2014 influenza, seasonal, injectable Remigio Simpson MD Work Phone: [facility] 07-20-2003 hepatitis B vaccine, adult dosage Remigio Simpson MD Work Phone: [facility] 03-20-2003 hepatitis B vaccine, pediatric or pediatric/adolescent dosage Remigio Simpson MD Work Phone: [facility] 02-16-2003 hepatitis B vaccine, pediatric or pediatric/adolescent dosage Remigio Simpson MD Work Phone: [facility] Payers Date Payer Category Payer Self-pay 2021 Private Health Insurance [employer] [id number] 2018 Medicare 2014 Unknown 1959 Medicare [id number] 1959 Unknown [id number] 1953 Unknown [id number] 2.840.1.975767.3.579.2. 593 1953 Unknown [id number] 2.840.1.345338.3.579.2. 593 1953 Unknown [id number] 2.840.1.308796.3.579.2. 593 1953 Unknown [id number] 2.16.840.1.482279.3.579.2. 593 1953 Unknown [id number] 2.16.840.1.631465.3.579.2. 727 1953 Unknown [id number] 2.16.840.1.022511.3.579.2. 727 1953 Unknown [id number] 2.16.840.1.508598.3.579.2. 727 1953 Unknown [id number] 2.16.840.1.747202.3.579.2. 196 1953 Unknown [id number] 2.16.840.1.261169.3.579.2. 1259 1953 Unknown [id number] 2.16.840.1.638011.3.579.2. 125 1953 Unknown [id number] 2.16.840.1.957738.3.579.2. 125 1953 Unknown [id number] 2.16.840.1.920456.3.579.2. 1258 1953 Unknown [id number] 2.16.840.1.655606.3.579.2. 125 1953 Unknown [id number] 2.840.1.198853.3.579.2. 125 1953 Unknown [id number] 2.16840.1.890776.3.579.2. 1259 1953 Unknown [id number] 2.16840.1.811667.3.579.2. 125 1953 Unknown [id number] 2.840.1.257239.3.579.2. 1259 1953 Unknown [id number] 2.840.1.946144.3.579.2. 125 1953 Unknown [id number] 2.16.840.1.591496.3.579.2. 1259 1953 Unknown [id number] 2.16.840.1.631309.3.579.2. 125 1953 Unknown [id number] 2.16.840.1.778933.3.579.2. 1259 1953 Unknown [id number] 2.16840.1.196352.3.579.2. 125 1953 Unknown [id number] 2.16.840.1.038374.3.579.2. 1258 1953 Unknown [id number] 2.16.840.1.887861.3.579.2. 1258 1953 Unknown [id number] 2.16.840.1.436013.3.579.2. 1258 1953 Unknown [id number] 2.16.840.1.894298.3.579.2. 1258 1953 Unknown [id number] 2.16.840.1.971415.3.579.2. 1258 1953 Unknown [id number] 2.16.840.1.856187.3.579.2. 1258 1953 Unknown [id number] 2.16.840.1.194208.3.579.2. 1258 1953 Unknown [id number] 2.840.1.083520.3.579.2. 1258 1953 Unknown [id number] 2.16.840.1.977086.3.579.2. 1258 1953 Unknown [id number] 2.16.840.1.445945.3.579.2. 1258 1953 Unknown [id number] 2.16.840.1.611116.3.579.2. 1258 1953 Unknown [id number] 2.16.840.1.289145.3.579.2. 1258 1953 Unknown [id number] 2.16.840.1.843680.3.579.2. 1259 Unknown [id number] 2.16.840.1.770988.3.579.2. 531 Unknown [id number] 2.16.840.1.062080.3.579.2. 531 Unknown [id number] 2.16.840.1.378814.3.579.2. 531 Unknown [id number] 2.16.840.1.430231.3.579.2. 531 Social History Date Type Detail Facility Start: 01-08-2023 End: 07-19-2023 Tobacco smoking status Never smoked tobacco (finding) [facility] [place] Tobacco smoking status Never Gener al [facility] [place] Start: 06-09-2023 End: 04-19-2024 Sex Assigned At Female [facility] Start: 1955 Sex Assigned At Female F [facility] Start: 06-09-2023 End: 07-19-2023 Tobacco use and exposure Smokeless tobacco non-user [facility] Start: 06-09-2023 Alcohol intake Defer [facility] Start: 06-09-2023 End: 04-19-2024 History of Social function [facility] Start: 12-31-2022 Education 15 [facility] Start: 1955 Sex Assigned At Not on file [facility] Start: 02-02-2024 End: 05-03-2024 Alcoholic beverage intake Ex-drinker (finding) [facility] Do you belong to any clubs or organizations such as zoroastrian groups, unions, fraternal or athletic groups, or [...] [OSQ] Rather much [facility] (I/We) worried shiraz er (my/our) food would run out before (I/we) got money to buy more. Never true [facility] Tobacco smoking stat us NHIS Tobacco smoking consumption unknown [facility] NEGATED: Highlighted rowStart: NINF History of tobacco use Passive smoker [facility] Goals Date Patient Goal Desired Activity /State Functional Status Date Assessment Result Facility 09-22-2023 Functional status Patient at Baseline [facility] Work Phone: 01-08-2023 Functional Status N/A General Nava [facility] [place] Mental Status Date Assessment Result Facility 09-22-2023 Cognitive function Cognitive Sta tus Patient at Baseline [facility] Work Phone: Clinical Notes 03-12-2022 to 05-22-2024 Telephone Encounter - Sera Killian APRN.ELIANE - 05/22/2024 3:09 PM ESTTelephone Encounter - Sera Killian APRN.CNP - 05/22/2024 3:09 PM Arianna Simpson MD - 05/04/2024 12:19 PM EST Note Date & Type Note Facility 05-22-2024 Telephone encounter Note The following approved medication requests have been transmitted electronically. Requested Prescriptions Signed Prescriptions Disp Refills donepezil (ARICEPT) 5 mg tablet 30 tablet 3 Sig: Take 1 tablet by mouth daily after breakfast. Authorizing Provider: SERA KILLIAN APRN.CNP [facility] 05-22-2024 Miscellaneous Notes The following approved medication requests have been transmitted electronically. Requested Prescriptions Signed Prescriptions Disp Refills donepezil (ARICEPT) 5 mg tablet 30 tablet 3 Sig: Take 1 tablet by mouth daily after breakfast. Authorizing Provider: SERA KILLIAN APRN.CNP documented in this encounter [facility] 05-22-2024 Telephone encounter Note OG call to spouse, discussion held. We agreed to continue the taper of Haldol as originally ordered. And add Donepezil (Aricept) 5 mg daily after breakfast. Sera Killian APRN.[employer]AKER [facility] 05-22-2024 Miscellaneous Notes OG call to spouse, discussion held. We agreed to continue the taper of Haldol as originally ordered. And add Donepezil (Aricept) 5 mg daily after breakfast. Sera Killian APRN.ELIANE Spoke with Vimal, the patient's . He stated that Barbaras visual hallucinations do not scare her or cause agitation. There are no safety concerns. His main concern is the increase of the frequency of the hallucinations. He will keep Donnie on the current dose of Haldol until Vernon Killian APRN, CNP reviews and makes her recommendation. Donnie does have a follow up with local neurologist on 05/29/2024 and a follow up on 07/27/2024 with Sera. Ivette Kerr RN Spoke with Vimal, the patient's . Currently, he is weaning Donnie off of Haldol. On 05/10/2024, the Haldol was decreased to 1/2 a tablet(0.5 mg) in the morning and in the evening. Since the decrease in dosing, Donnie has been crying more and is having more visual hallucinations. Vimal stated, I feel she is in a downward spiral since decreasing the dosage . In a week, he is to decrease the dosage down to 1/2 tablet in the evening. He is asking for further recommendations. Donnie has a follow up appointment with her local neurologist on 05/29/2024. He was advised that Donnie's care team would be update and someone from our office will call with further recommendations. It is okay to leave a voice message on Vimal's cell phone. Ivette Kerr RN Second Attempt Voice message left for Vimal that someone from our office will attempt to reach out to him on the next business day, 05/18/2024. Advised that he may send a My Chart Message. Ivette Kerr RN Voice message left for Vimal that someone from our office will attempt to reach out to him on the next business day to address his concerns. Ivette Kerr RN Spouse, Carlos LVM on [facility] Nurse Line on 05/15 @2:59P. Pt name and verified 1955. Carlos is requesting to speak with nurse re: pt symptoms. Hallucinations are getting worse. Please call back at . Thank you, Rose documented in this encounter [facility] 05-19-2024 Telephone encounter Note Spoke with Vimal, the patient's . He stated that Donnie's visual hallucinations do not scare her or cause agitation. There are no safety concerns. His main concern is the increase of the frequency of the hallucinations. He will keep Donnie on the current dose of Haldol until Vernon Killian APRN, [employer] W[employer]ER BREAKER reviews and makes her recommendation. Donnie does have a follow up with local neurologist on 05/29/2024 and a follow up on 07/27/2024 with Sera. Ivette Kerr RN [facility] Work Phone: 05-18-2024 Telephone encounter Note Spoke with Vimal, the patient's . Currently, he is weaning Donnie off of Haldol. On 05/10/2024, the Haldol was decreased to 1/2 a tablet(0.5 mg) in the morning and in the evening. Since the decrease in dosing, Donnie has been crying more and is having more visual hallucinations. Vimal stated, I feel she is in a downward spiral since decreasing the dosage . In a week, he is to decrease the dosage down to 1/2 tablet in the evening. He is asking for further recommendations. Donnie has a follow up appointment with her local neurologist on 05/29/2024. He was advised that Donnie's care team would be update and someone from our office will call with further recommendations. It is okay to leave a voice message on Vimal's cell phone. Ivette Kerr RN [facility] 05-16-2024 Telephone encounter Note Second Attempt Voice message left for Vimal that someone from our office will attempt to reach out to him on the next business day, 05/18/2024. Advised that he may send a My Chart Message. Ivette Kerr RN [facility] 05-15-2024 Telephone encounter Note Voice message left for Vimal that someone from our office will attempt to reach out to him on the next business day to address his concerns. Ivette Kerr RN [facility] 05-15-2024 Telephone encounter Note Spouse, Carlos LVM on [facility] Nurse Line on 05/15 @2:59P. Pt name and verified 1955. Carlos is requesting to speak with nurse re: pt symptoms. Hallucinations are getting worse. Please call back at . Thank you, Rose [facility] 05-04-2024 History of Present illness Narrative requests PT specifically for Parkinson's disease. Please write order for PT to evaluate and treat with diagnosis of Lewy body dementia and Parkinson's. Please send order to PT Services in [place]. documented in this encounter [facility] 05-03-2024 History of Present illness Narrative Images from the original note were not included. Subjective Patient ID: Donnie Bullock is a 68 y.o. female who presents for Fungus (Pt is here today with her spouse for 3mo FUV nail fungus, they will sometimes bother her when shoes are on/SS:9). HPI Chief complaint: Presents requesting nail care. Symptomatic toenail deformity. Identifies multiple digits as problematic/symptomatic; describes pressure discomfort with shoe gear, catching and snagging on clothing, bed sheets etc.. Symptomatic over the past several weeks or so again impacting her ability to wear shoes comfortably. Denies bleeding or drainage. Chronic toenail deformity of multiple years' duration. Self-care is difficult ineffective and not practical; increasing risk exposure. Her spouse is unable to provide effective care. Palliative care measures have provided favorable transient symptom relief. Risk factors: Post-COVID mental changes. Parkinson's disease. Mobility, flexibility and dexterity restraints. Toenail deformity. Digital and/or shoe trauma and related complications. Medications Current Outpatient Medications: haloperidol (Haldol) 1 MG tablet, TAKE 1/2 TABLET (0.5MG) IN THE MORNING AND TAKE 1 TABLET (1MG) AT SUPPER, Disp: 30 tablet, Rfl: 1 hydrOXYzine HCl (Atarax) 25 MG tablet, TAKE 1 TABLET (25 MG) BY MOUTH 4 (FOUR) TIMES A DAY NEEDED FOR ANXIETY, Disp: 360 tablet, Rfl: 2 lactulose (Chronulac) 10 GM/15ML solution, Take 15 mL (10 g) by mouth in the morning and 15 mL (10 g) before bedtime., Disp: 900 mL, Rfl: 11 mirtazapine (Remeron) 15 MG tablet, TAKE 1 TABLET BY MOUTH AT BEDTIME, Disp: 90 tablet, Rfl: 2 senna-docusate sodium (Senokot-S) 8.6-50 MG tablet, Take 1 tablet by mouth Daily, Disp: , Rfl: diazePAM (Valium) 2 MG tablet, Take 1 tablet (2 mg) by mouth 4 (four) times a day as needed for anxiety for up to 10 days, Disp: 40 tablet, Rfl: 0 Allergies Alprazolam Past Surgical History Past Surgical History: Procedure Laterality Date CARPAL TUNNEL RELEASE Left 06/15/2014 MTP CARPAL TUNNEL RELEASE Right 06/29/2014 MTP DILATION AND CURETTAGE OF UTERUS 2004 EYE SURGERY HYSTERECTOMY 2008 [place] REMOVE TONSILS/ADENOIDS,12+ Y/O 1959 Family History Family History Problem Relation Name Age of Onset Cancer Mother Ayla Jonas Arthritis Mother Ayla Jonas Hypertension Father Carlos Jonas Cancer Father Carlos Jonas Heart disease Sibling Arthritis Maternal Grandmother Dayna Arambula Objective General assessment: Alert and oriented. Pleasant disposition. Accompanied by her spouse, Vimal Vascular: DP 2/4 bilateral. PT 1/4 bilateral. CFT brisk all digits. Gradient temperature: Warm-slightly cool bilateral. Mild blanchable cyanosis along the distal medial margins bilateral great toes; without ischemia or necrosis. Unremarkable for ankle edema. Neurologic: Tactile and light touch sensation intact. Dermatologic: Intact. Skin turgor is good. Web space areas are clean, dry, non-inflamed. Unremarkable for eczema or dermatitis. Toenail pathology: All digits: None are spared: Varying degrees of toenail dystrophy, hypertrophy, thickening, clubbing, discoloration, crumbly texture, elongation, clinical mycosis, periungual hyperkeratosis, without drainage. Bilateral great toes: Notable pincer deformity. Total with debris: Multiple digits. Orthopedic: Range of motion: Demonstrates functional ankle, subtalar and 1st MTP joint range of motion. Lesion pattern: No forefoot or digital discrete keratotic lesions are noted. No obvious or distinct digital deformities are noted. Radiology: Assessment/Plan Mildly symptomatic onychodystrophy/mycosis multiple digits. Mild dementia; post-COVID psychosis with anxiety. Plan: Conservative and palliative care measures are preferred, understood and again indicated. May continue topical care measures: Use of vinegar and/or Listerine as directed as able to do so; advised as to limited efficacy. Hygiene and skin care measures discussed. Procedure: Toenail debridement: Aseptic technique: Hand and power instrumentation: Onychodebridement in length and thickness, with curettage of any cryptotic margins, all periungual debris; providing effective symptom and pressure relief; reducing shoe and digital trauma. This note was created with the assistance of a speech recognition program. While intending to generate a timely document that accurately reflects the content of the visit, no guarantee can be provided that every grammatical or spelling mistake has been or will be identified or corrected. Thank you for your understanding. Herson Uribe DPM documented in this encounter [facility] 05-03-2024 Instructions Herson Uribe DPM - 05/03/2024 9:45 AM EST As noted documented in this encounter [facility] 04-26-2024 Telephone encounter Note Call placed to to resume original taper of haloperidol from OV on 04/19 per order of provider: he would begin to give her 0.5 mg in AM and 1 mg at HS-- and continue with my original taper regimen. Reviewed taper with and encouraged him to call with any questions or concerns that arise. Francie Lira RN [facility] 04-26-2024 Miscellaneous Notes Call placed to to resume original taper of haloperidol from OV on 04/19 per order of provider: he would begin to give her 0.5 mg in AM and 1 mg at HS-- and continue with my original taper regimen. Reviewed taper with and encouraged him to call with any questions or concerns that arise. Francie Lira RN Pt Carlos called to stated that he is very concerned that since the patient stopped the Haloperidol in AM, pt is crying a lot more, seems more depressed, and is having increased hallucinations and delusions. Pt is saying that she wants to go see her mom and dad ( states that he realizes that this is normal with dementia), but this topic has increased significantly. is not sure if the patient remembers that her parents are because they have talked about them being in heaven and the patient does not appear upset when this is discussed. The spouse has asked pt if she suicidal ideation, and patient replies no and that she wants to see her mom and dad still. Per , pt is on only PM dose haloperidol. Per , he has given evening dose at 6pm for last 5 or 6 months so he is not giving it at bedtime. stated that patient just got over UTI - finished antibiotics on Wednesday. He does not suspect that the cause of these changes is infection. New for patient - she is unable to find bathroom in her home of 25 years. We discussed communication strategies for dealing with pt's delusions - changing topic, not arguing about reality, and not telling patient that her parents are to minimize repeated grieving. Carlos expressed understanding and had no other questions/concerns at this time. Forwarded message to provider to review and advise. Francie Lira RN documented in this encounter [facility] 04-25-2024 Telephone encounter Note Pt Carlos called to stated that he is very concerned that since the patient stopped the Haloperidol in AM, pt is crying a lot more, seems more depressed, and is having increased hallucinations and delusions. Pt is saying that she wants to go see her mom and dad ( states that he realizes that this is normal with dementia), but this topic has increased significantly. is not sure if the patient remembers that her parents are because they have talked about them being in heaven and the patient does not appear upset when this is discussed. The spouse has asked pt if she suicidal ideation, and patient replies no and that she wants to see her mom and dad still. Per , pt is on only PM dose haloperidol. Per , he has given evening dose at 6pm for last 5 or 6 months so he is not giving it at bedtime. stated that patient just got over UTI - finished antibiotics on Wednesday. He does not suspect that the cause of these changes is infection. New for patient - she is unable to find bathroom in her home of 25 years. We discussed communication strategies for dealing with pt's delusions - changing topic, not arguing about reality, and not telling patient that her parents are to minimize repeated grieving. Carlos expressed understanding and had no other questions/concerns at this time. Forwarded message to provider to review and advise. Francie Lira RN [facility] 04-20-2024 Telephone encounter Note Confidential email correspondence sent to spouse re: updated Haldol taper dosing as follows: Reduce to Haldol 1 mg at bedtime for two weeks, then, Reduce to Haldol 0.5 mg (1/2 of 1mg tab) at bedtime for two weeks - then stop altogether. Sera Killian APRN.CNP [facility] 04-20-2024 Miscellaneous Notes Confidential email correspondence sent to spouse re: updated Haldol taper dosing as follows: Reduce to Haldol 1 mg at bedtime for two weeks, then, Reduce to Haldol 0.5 mg (1/2 of 1mg tab) at bedtime for two weeks - then stop altogether. Sera Killian APRN.CNP documented in this encounter [facility] 04-20-2024 Telephone encounter Note Carlos called to ask who will be ordering the Donepezil once the patient is off of the Haloperidol. I told him that Sera noted that she would consider it when the patient is off of the Haloperidol. I asked him to please give us an update when she is finishing the taper and off of the Haloperidol. I also encouraged him to call if there are any other questions or concerns. Francie Lira RN [facility] 04-20-2024 Miscellaneous Notes Carlos called to ask who will be ordering the Donepezil once the patient is off of the Haloperidol. I told him that Sera noted that she would consider it when the patient is off of the Haloperidol. I asked him to please give us an update when she is finishing the taper and off of the Haloperidol. I also encouraged him to call if there are any other questions or concerns. Francie Lira RN documented in this encounter [facility] 04-19-2024 Instructions Sera Killian APRN.[employer]AKER - 04/19/2024 1:58 PM EST Dear Mrs. Donnie Bullock and family, It was nice to meet all of you today. We reviewed your evaluation of memory, mood and overall functioning. We discussed the testing we completed. We use a tool called the MOCA (Kane Cognitive Assessment). This is a brief tool to measure cognitive function. Your score was 17/30. Normal range is 26/30 or above. Our brief cognitive testing revealed inefficiency in visuospatial skills, planning tasks, keeping track of when events have happened, retrieval of memories and words, attention, keeping track of information (working memory), and orientation. Dementia is not a disease itself, but an umbrella term for changes in memory and thinking that are severe enough to interfere with daily functioning. The most common cause of dementia is Alzheimer's Disease. The second most common cause is vascular disease. Not one person manifests dementia the same. We discussed the outcome of our testing which showed there is some cognitive impairment that is severe enough to interfere with daily functioning. We consider you to have you dementia, probable cause from Lewy Body Disease. Dementia with Lewy bodies (DLB) is characterized by progressive dementia with fluctuations in performance and attention. Family members or caregivers may report that the patient can carry a conversation one day and the next day may be confused and inattentive. They have more problems with executive functioning (planning) and visuo-spatial skills (following an unfamiliar route, copying figure) but better delayed recall. Visual hallucinations are usually well formed and detailed. They may initially be pleasant (seeing children and little people or little bugs), but may evolve and be accompanied by persecutory delusions. Parkinsonian features may include slowness of movements, masked face and stiffness (rigidity). Medication Changes We recommend reducing and stopping the medication haloperidol (HALDOL) as follows: - reduce to Haldol 0.5 mg in the morning and continue 1 mg at bedtime for 2 weeks, then - reduce to Haldol 0.5 mg twice daily for 2 weeks, then - reduce to Haldol 0.5 mg at bedtime for 2 weeks, then, - reduce Haldol 0.5 mg at bedtime every other night for 2 weeks, then STOP. Project Lifesaver The Project Lifesaver Program is offered through your local county. Project Lifesaver provides a technological means for law enforcement officers to more rapidly locate persons who due to a medical condition, are susceptible to wandering. The individual will be equipped with a wristband transmitter that emits a unique radio frequency. If they go missing, the caregiver is instructed to call 911 and a trained law enforcement steamship agent will respond with the equipment. A search will then be initiated, the average search time with this program has been found to be less than 30 minutes. To learn more about this program or register call the [facility] Sheriff's office at [phone] or [facility] Senior Services at [phone] ([facility]). Medical Alert System Today Donnie had difficulty recalling what number to contact in the event of an emergency. We recommend utilizing a Medical Alert System to increase safety in the home. In the event of a fall or an emergency, help is available at the push of a button. Some options for this are: Taptu: Call or visit https://Discera/ & click on Seniors tab -Mobile System. -Fall detection. -Medication reminders. -GPS monitoring. -Kale fencing option for wandering. -Checks heart rate, blood pressure, temperature, and oxygen levels. -Worn as a wristband. Life Alert: Call or visit www.lifealerthelp.Cloud.CM -Offers home based and mobile system. -Offers a push button for the shower. -Comes in a lanyard. Lifefone: Call or visit www.Antengo -Home based or mobile system. -Fall detection. -GPS detects location of emergency. -Water proof. -Worn as a lanyard, wristband, or offers a push button. Lifeline: Call or visit www.[employer] -Home based & mobile system. -Fall detection. -GPS detects location of the emergency. -Water resistant; can be worn in the shower. -Worn as a wristband or lanyard. Lively: Call or visit www.[employer]/medical-alerts -Offers mobile systems. -Offers fall detection. -Comes in a lanyard. Also compatible with [employer] and [employer]. Medical Alert: Call or visit www.[employer] -Offers home based & mobile system. -Mobile system offers GPS monitoring. -Fall detection for all systems. -Systems can be worn in the bath or shower. -Two way speaker allows you to communicate with a trained response specialist who will determine who to contact for help (family, friends, or emergency responders). -Comes in a lanyard or wristband. Medical Guardian: Call or visit www.LifeCareSim -Offers home based and mobile system. -GPS tracking for mobile system. -Water resistant, not water proof. -Worn as a lanyard or wristband. Mobile Help: Call or visit www.[employer] -Offers home based & mobile system. -Comes in a lanyard or small mobile device. UnaliWear: Call or visit www.Pramana -Home based and mobile system. -Fall detection. -GPS detects location of the emergency. -Water resistant; can be worn in the shower. -Medication reminders. -Worn as a wristband. Adding Help at Home Additional help at home can be offered through what we refer to as private duty agencies. These agencies offer services including companionship, assistance with meals, medication reminders, drilling foreman, transportation and personal care if needed. Services are typically an out of pocket expense. Some long-term care policies or VA benefits may offer reimbursement for services. There are many details to consider when adding help at home. Some individuals may initially be hesitant to the idea. Below you will find some suggestions and considerations when selecting and introducing a caregiver. -Ask about the training provided to staff and the services they offer. -Ask about the cost and minimum amount of hours they require. -Ask about how the agency addresses caregiver call offs. -Be direct with your expectations for care. -Share information about interests, routine, or views on having care in the home (this can be a hard transition for many). -Allow time to build a relationship with the caregiver. [facility] Adult Home Care: or [employer]: [place] [facility]: (Limited services at this time) [facility]: (Services in [facility] are limited, but available) First Choice: or Home Instead: [facility]: [facility]: Luis Nicholss: (Serves [facility]) Education & Support When an individual experiences memory changes, no matter how mild or severe, we encourage individuals and families to educate themselves, learn communication tips, and ways to adjust expectations over time. There are many resources available online. The Lewy Body Dementia Association for support and information Visit www.lbda.org or call (Caregiver Link Support Line) The Lewy Body Dementia Resource Center Visit lewybodyresourcecenter.org or call their support line at [phone] or The Alzheimer's Association (web site: alz.org/[place]) An organization that provides education and support to individuals/caregivers affected by memory loss, Alzheimer's disease, and all forms of dementia. Available 24 hours a day, 7 days per week. Contact: Local: ; Toll free: [phone] Family Caregiver [place] (web site: Caregiver.org) BLANK Parrish-- a secure online solution for quality information, support, and resources for family caregivers. Contact: Toll-free number: [phone] Support Group Information [facility] [place]ementia Caregiver Support Group-Co sponsored by The Alzheimer's Association Wednesday of each month from 1:30-3:30pm Virtual group by altagracia, intended for caregivers of persons living with Dementia with Lewy Bodies and Parkinson s Disease Dementia. To enroll in the group, please contact the Alzheimer s Association Helpline at [place] Lewy Body Support Group Wednesday of the Month 3:00pm EST Virtual group by Altagracia to support caregivers of those with Lewy Body Dementia. For more information and for the Zoom link, please contact Starla Coello at [phone] or Literature The 36 Hour Day- Shy Irwin and Charles Aguilar (Audible available) Ambiguous Loss- Bria Fierro's Story-By Isaak Andrade (Audible available) My Two [place]: Learning, Coping, and Surviving as an Alzheimer's Caregiver-by Jb Finney (Audible available) Communication tips -Keep information brief and simple. Avoid over explaining. -Be prepared for repeat questions. Answer once, answer twice, the third time change the subject. If needed, change the room. -Anticipate that cues or reminders will be needed. -Offer cues, not corrections. Avoid asking, Don't you remember? -Validate the emotion behind the response. -Remain calm to reduce the emotional response from the person living with memory loss. -Avoid trying to reason, convince or rationalize. Communication Strategies-How to Respond to Delusions Delusions (firmly held beliefs in things that are not real) may occur in middle to late-stage dementia. Confusion and memory loss -- such as the inability to remember certain people or objects -- can contribute to these untrue beliefs. A person with dementia may believe a family member is stealing his or her possessions or that he or she is being followed by the police. This kind of suspicious delusion is sometimes referred to as paranoia. Although not grounded in reality, the situation is very real to the person with dementia. Keep in mind that a person with dementia is trying to make sense of his or her world with declining cognitive function. How To Respond to Delusions: How we respond to delusions is very important. We recommend responding in the following ways. Don't take offense. Listen to what is troubling the person, and try to understand that reality. Then be reassuring, and let the person know you care. Don't argue or try to convince. Allow the individual to express ideas. Acknowledge his or her opinions. Offer a simple answer. Share your thoughts with the individual, but keep it simple. Don't overwhelm the person with lengthy explanations or reasons. Switch the focus to another activity. Engage the individual in an activity, or ask for help with a chore. Duplicate any lost items. If the person is often searching for a specific item, have several available. For example, if the individual is always looking for his or her wallet, purchase two of the same kind. A delusion is not the same thing as a hallucination. While delusions involve false beliefs, hallucinations are false perceptions of objects or events that are sensory in nature. When individuals living with dementia have a hallucination, they see, hear, smell, taste or even feel something that isn't really there. Communication Strategies-How to Respond to Hallucinations Offer reassurance and validation: You are safe, I'm here with you or I know this must be scary for you Use distraction: Suggest a favorite activity, use music, drawing, view a photo album Respond honestly: If asked do you see the hallucination respond by saying I know that you see something, but I don't see it Assess the situation/Modify the environment: Make changes if necessary, for example the mirror is causing a glare, remove the mirror; A lamp looks like a person, move to a different location if able. Hallucinations can be very real to the person experiencing them. Use a calm, gentle and reassuring approach with your loved one. Advance Directives We understand that you have advance directives in place (living will & healthcare power of securities attorney), which is excellent. Documents for healthcare can be uploaded to your medical record in the following ways: -Bring the forms to any [facility] medical appointment. A copy will be made and scanned into your medical record. -Scan and send to [email or web address] -Fax to [phone] -Mail to: [facility] Information Management, Ab7 Advance Directives Processing [address], [place] [address] Durable Power of Accelerator Technician for Finance We encourage you to verify that the forms for durable power of securities attorney regarding finance have been completed. Durable Power of Accelerator Technician for Finance allows a person to name an individual that they would want to make financial decisions on their behalf, in the event that they are unable to do so. These decisions may include: -Payment of a loved one s bills -Payment of their medical expenses -Investments made on their behalf -Collection of their fpc benefits -Application for insurance benefits You can visit [email or web address] for more information. These forms require a notary upon completion. Follow Up We would like you to return to [place] [facility] for a follow up visit in 3-4 months. Our office can be reached by calling [phone] Option 1. Sincerely, Sera Killian APRN.OUTDOOR ILLUMINATING ENGINEER Francie Lira, JOSÉ ANTONIO Schafer, [facility] BEBE Kramer documented in this encounter [facility] 04-19-2024 Note HNO ID: [id number] Author: NIKKI DARBY LISW Service: ? Author Type: Registered Nurse Type: Progress Notes Filed: 04/19/2024 17:34 Note Text: Summary: Nurse Note Donnie Richardson Elder is a 68 year old year old left handed woman Accompanied by: spouse and son. Referral by: No referring provider defined for this encounter. 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 Pt states that her is pursuing a second opinion regarding her DLB Vital Signs: BP 129/83 (BP Site: Left Arm, BP Position: Sitting, BP Cuff Size: Regular Adult) Pulse 76 Wt 73.8 kg (162 lb 11.2 oz) Francie Lira RN [facility] 04-19-2024 History of Present illness Narrative Summary: Nurse Note Donnie Bullock is a 68 year old year old left handed woman Accompanied by: spouse and son. Referral by: No referring provider defined for this encounter. 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 Pt states that her is pursuing a second opinion regarding her DLB Vital Signs: BP 129/83 (BP Site: Left Arm, BP Position: Sitting, BP Cuff Size: Regular Adult) Pulse 76 Wt 73.8 kg (162 lb 11.2 oz) Francie Lira RN Date: April 19, 2024 DONNIE BULLOCK [address] [place] [address] [facility] INITIAL PATIENT EVALUATION Reason for Consult: Lewy Body Dementia-here for a 2nd opinion I had the pleasure of seeing this 68 year old year old female at the [facility]. The patient is referred by SELF. Patient is accompanied by and information obtained from Spouse Carlos and son Geoff and available records in the system. Background and History of Present Illness: Symptoms Cognition Memory problems include short-term memory impairment, long-term memory impairment, impaired learning ability and forgetting events. Impaired comprehension and difficulty coming up with common words contribute to communication problems. She appears unable perceive objects. There are episodes of confusion (Moments of awareness; confusion after waking). In daily life, she needs assistance with instrumental ADL s. Behavior Mood is described as anxious. She is sleeping more. Behavioral aberrations: - delusions and visual hallucinations - misidentification not recognizing spouse Physical/Motor The patient has had unsteadiness. There is urinary incontinence. Functional Assessment Staging (FAST) 5=Requires assistance in choosing proper clothing to wear for the day, season, or occasion, e.g., patient may wear the same clothing repeatedly, unless supervised. Here today for a second opinion regarding diagnosis of LBD. Followed by neurology provider Dr. Rei Cobos at [facility], followed since August 2023. No cognitive testing on file. Formerly followed by psychiatry for LBD/anxiety. Last seen in September 2023. Care was established following her inpatient behavioral health hospitalization in April 2023/May 2023. No family history of dementia or Parkinson's Disease. Per spouse and son report: -Lumbar puncture at [facility] September 30, 2023. Work up completed for possible rapidly progressing dementia. -Prior brain imaging (MRI/CT at outside medical systems). -Hallucinations daily (asks her spouse when is Vimal going to come home? ; sees babies; puppies, squirrel on spouse's shoulder, gives sign of peace to people she sees in her home). -Recently discharged from [facility] services 4 months ago. Also previously had palliative care, no longer receiving this care. Onset and Progression: 2 years ago mild trouble with names of grandchildren. Changes noted following COVID dx (April 21 2023), spouse speaks of the pt being found wandering outside, confused. A few days after she did not recognize her spouse. She expressed not wanting to live, she was admitted to [facility] for further evaluation. Mobility changes at this time as well, previously walked regularly. Shuffling of feet, not swinging her arms. VH and misidentification of spouse also started at this time. Previous and Current treatment: Haldol 1 mg BID and as needed; Hydroxyzine; Melatonin; Mirtazapine; THC Functional Abilities ADL'S: Bathing:Independent vs need cuing Dressing: Needs cuing-puts spouse's clothing on Eating: Independent Toileting: Independent Ambulation: independent Falls in last 12 months:Yes Assistive device: cane IADL's Meal prep/Cooking: Needs assistance Shopping: Needs assistance Housekeeping: Needs assistance Laundry: Needs assistance Medication mgt.: Needs assistance Pill box in use? Overseen by spouse Telephone: Needs cuing Finances: Needs assistance Who does? Spouse always has Transportation: Needs assistance-stopped in April 2023 Is the patient driving: No Living Situation: With spouse Agencies involved: none currently-previously followed by [facility] Special Concerns: Hallucinations/Delusions: Yes: refers to seeing a woman with a black ribbon Believes parents are still living Sees babies, animals, people, other Vimal Misidentifies spouse Sleep: RBD No hx of falling OOB, no arm or leg movement reported, sleeping more-needs daytime naps 1.5 hours; talks/yells out in sleep; appears to act out dreams; confusion upon waking. Emergency: unrealistic plan: states would go to the neighbor's home Are there guns in the home? Yes-locked Home alone: Yes, occasionally. Medical Alert: No-information provided. Advanced Directives Durable POA: Yes Financial POA: Spouse will verify-information reviewed Consult [facility] SCREEN EXAMINER if not completed: role introduced, reviewed national organizations offering support, provided communication tips and caregiver strategies. ----- SOCIAL HISTORY -Education completed: 14 -Some college -No tobacco. No significant alcohol abuse. No history of substance abuse. 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 -Marital status: -4 children -Guardian No -Is patient a ? No I have personally reviewed and verified the above information. BEBE Kramer No past medical history on file. ALLERGIES Not on File No family history on file. Per pt: - is here for a second opinion - understands she was dx'd with Lewy body dementia - - sees a woman with a black ribbon-moves the ribbon around - is looking at the scale in the room stating it appears the top is from the base - dreams are vivid- denies falling OOB, moves around at HS, yells out - naps well during the day - feels anxiety- feels it in her gut Review of systems: Alcohol: NO Tobacco:No Weight change: Up: No down: NO Appetite:Stable Constipation, Diarrhea: NO Urinary incontinence: Occas?, Pads? yes Nocturia: yes Chest pain: No Difficulty breathing:NO Edema:NO Dyspnea: NO Presence of pain and effect on function: NO Current level of physical activity: Up ad lynne Memory concerns: Mild Depression: yes, Anxiety: + Falls/injuries/accidents since last visit: yes Patient-Entered Data: Patient-Reported None PHYSICAL EXAMINATION: BP 129/83 (BP Site: Left Arm, BP Position: Sitting, BP Cuff Size: Regular Adult) Pulse 76 Wt 73.8 kg (162 lb 11.2 oz) BP w/Orthostatic Vitals Date and Time Orthostatic BP Orthostatic Pulse BP Pulse BP Position BP Site BP Cuff Size 04/19/24 1238 123/79 79 -- -- Standing Left Arm Regular Adult 04/19/24 1237 -- -- 129/83 76 Sitting Left Arm Regular Adult General appearance: Well appearing, alert, in no acute distress, well-hydrated, well nourished. NEUROLOGICAL EXAM Cognition alert+ somnolent at times during visit Orientation: oriented x3 Appearance: normal grooming Eye contact: normal +looking down, stooped Facial expression: neutral Psychomotor: slowed Speech/Language: unremarkable, soft; Intact during interview, impaired language on MOCA 05/19 Mood: +anxious, low mood reported Affect: restricted PDW:yes SI:no Self-injurious behavior:NO Emotional state: calm Thought Process: logical Thought Content: delusions: see report, Hallucinations: yes- see report Judgment: impaired due to dementia and impaired due to lack of insight Insight: good Kane Cognitive Assessment (MoCA) Version 7.1 Total Score: 17/30 Visuospatial/Executive Alternating Lamoni Making: Patient is unable to successfully complete the task. (0) Visuoconstructional Skills (Shape): Patient is unable to successfully complete the task. (0) Visuoconstructional Skills (Clock): Abnormal-Numbers, Hands Visuospatial/Executive Score: 1/5 Naming The patient was able to name: Lion, Rhinoceros or Rhino, Camel or Dromedary Naming Score: 3/3 Memory Trials Memory Trial (1): The patient was able to correctly register: 5/5 Memory Trial (2): The patient was able to correctly register: 5/5 Attention Forward Digit Span: Correct (+1) Backward Digit Span: Correct (+1) Vigilance: Correct (+1) Attention - Serial 7's: (1) Correct subtraction (+1) Attention Score: 4/6 Language Sentence Repetition (1): Correct (+1) Sentence Repetition (2): Incorrect (0) Verbal Fluency: Patient produced 8 words. (+0) Language Score: 1/3 Abstraction Abstraction (1): Patient successfully related similarity. (+1) Abstraction (2): Patient successfully related similarity. (+1) Abstraction Score: 2/2 Delayed Recall Word 1: Spontaneously recalled (+1) Word 2: Required category cue- 'type of fabric' (0) Word 3: Spontaneously recalled (+1) Word 4: Required category cue- 'type of flower' (0) Word 5: Spontaneously recalled (+1) Delayed Recall Score: 3/5 MIS Scoring Number of words recalled spontaneously: 3 x3: 9 Number of words recalled with a category cue: 2 x2: 4 Number of words recalled with a category cue: 0 x1: 0 Total MIS: Orientation The patient was able to answer correctly: exact date, year, exact place (name of hospital, clinic, office). Orientation Score: 3/6 Education less than or equal to 12th grade: +0 Semantic Fluency Patient produced 7 words. MoCA Past Scores 04/19/2024 MoCA MOCA TOTAL SCORE 17 out of 30 Visuospatial/ Executive 1 Naming 3 Attention 4 Language 1 Abstraction 2 Delayed Recall 3 Orientation 3 Education Level 0 Cranial Nerves: I - Smell 0/2- coffee and PB II - Visual acuity, visual wagner NT II,III - Pupillary reactions NT III,IV, - Extra-ocular movements, including opening of the eyes Intact V - Facial sensation, movements of the jaw Intact VII - Facial movements and gustation Intact VIII -Hearing and balance intact on exam IX,X - Swallowing, elevation of the palate, and gustation Intact V,VII,X,XII - Voice and speech Soft, intact XI - Shrugging the shoulders and turning the head Intact XII - Movement and protrusion of tongue Intact Motor Strength is 4+/5 in upper and $=/5 in lower extremities Upper extremity rigidity is 0: Normal bilaterally Postural tremor right hand and left hand- very mild Bradykinesia Horizontal arm extension: slight tremor left Pronator drift: negative Reflexes -Deferred Coordination Cerebellar: + dysmetria or slowed pronation/supination Finger to nose: fair- to poor Posture and Gait Rise from chair with arms folded: fair Gait: reduced arm swing, shuffling, bradykinetic, stooped Step Height: reduced Gait deviation: None Heel walk: unsteady Romberg: negative Tandem gait: unsteady No Data Recorded (0-4) minimal depression, (5-9) mild depression, (10-14) moderate depression, (15-19) moderately severe depression, (20-27) severe depression Brief Neuropsychiatric Evaluation: Clock Drawin/5 poor Abstract thinking was good. 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 She could name 7 animals in 60 seconds and 8 words beginning with letter F in one minute. No results found for: TSH , B12 , FOLATE , VITD25 Most recent MRI/CT brain: Completed- I do not have access at this time MRI Report - Impression Only No resulted procedures found. IMPRESSION and ASSESSMENT: Probable Lewy Body dementia, with VH, +RBD + parkinsonism + This is a 68 year old female who presented with her spouse and son for second opinion of her DLB diagnosis. This is her first visit to [facility]. MoCA administered with score of 17/30. This brief cognitive testing revealed deficits in forming new memories, visuospatial skills, learning, planning tasks, retrieval of memories and words, attention, verbal fluency, language, thinking slowly, depression, and anxiety. Physical/ Neuro exam notable for drowsiness vs somnolence, bradykinesia in gait, stooped posture and decreased arm swing. Functionality: Difficulty with IADL's, independant with ADL's. Overall, this patient's presentation is consistent with dementia, probably due to Lewy Body dementia. See above for detailed report and timeline of symptoms. I agree that pt likely has Lewy Body dementia with VH, RBD + parkinsonism. Changes noted following COVID dx (April 21 2023); spouse speaks of pt being found wandering outside, confused. A few days after she did not recognize her spouse. She expressed not wanting to live, and she was admitted to [facility] for further evaluation. She was placed on Haldol at that time and continues to take 1 mg BID. Family are not noting a benefit from it. Discussion held about the potential negative effects and spouse is aware of this too as he is well read on DLB. We agreed to taper and stop Haldol. I recommend we try Donepezil (Aricept) after she's off the Haldol. I have requested her most recent ECG. We discussed use of Melatonin for her RBD and sleep. She is currently using a THC pretzel + Mirtazapine at HS. (G31.83, F02.818) Lewy body dementia with behavioral disturbance (HCC) (primary encounter diagnosis) Plan: After stopping Haldol will likely add cholinesterase inhibitor (F32.89) Other depression Plan: Continue same treatment plan. (G47.52) RBD (REM behavioral disorder) Plan: Suggest Melatonin (G21.9) Secondary parkinsonism, unspecified secondary Parkinsonism type (HCC) Plan: Taper and stop Haldol (R44.1) Visual hallucinations Plan: Consider Donepezil (Aricept) after off Haldol PLAN -Follow up in 3-4 months. I spent a total of 90 minutes on the date of the service which included preparing to see the patient, [id number] patient care, completing clinical documentation, obtaining and/or reviewing separately obtained history, counseling and educating the patient/family/caregiver, ordering medications, tests, or procedures, communicating with other HCPs (not separately reported) and care coordination (not separately reported). Sera Killian APRN, Geriatric Clinical Nurse Specialist [facility] CC: 1. No primary care provider on file., (fax) None [address] [place] [address] documented in this encounter [facility] 04-19-2024 Note HNO ID: [id number] Author: SERA KILLIAN APRN.CNP Service: ? Author Type: Nurse Practitioner Type: Progress Notes Filed: 04/19/2024 17:34 Note Text: Date: April 19, 2024 [place] [address] [facility] INITIAL PATIENT EVALUATION Reason for Consult: Lewy Body Dementia-here for a 2nd opinion I had the pleasure of seeing this 68 year old year old female at the [facility]. The patient is referred by SELF. Patient is accompanied by and information obtained from Spouse Carlos and son Geoff and available records in the system. Background and History of Present Illness: Symptoms Cognition Memory problems include short-term memory impairment, long-term memory impairment, impaired learning ability and forgetting events. Impaired comprehension and difficulty coming up with common words contribute to communication problems. She appears unable perceive objects. There are episodes of confusion (Moments of awareness; confusion after waking). In daily life, she needs assistance with instrumental ADL?s. Behavior Mood is described as anxious. She is sleeping more. Behavioral aberrations: - delusions and visual hallucinations - misidentification not recognizing spouse Physical/Motor The patient has had unsteadiness. There is urinary incontinence. Functional Assessment Staging (FAST) 5=Requires assistance in choosing proper clothing to wear for the day, season, or occasion, e.g., patient may wear the same clothing repeatedly, unless supervised. Here today for a second opinion regarding diagnosis of LBD. Followed by neurology provider Dr. Rei Cobos at [facility], followed since August 2023. No cognitive testing on file. Formerly followed by psychiatry for LBD/anxiety. Last seen in September 2023. Care was established following her inpatient [facility] hospitalization in April 2023/May 2023. No family history of dementia or Parkinson's Disease. Per spouse and son report: -Lumbar puncture at [facility] September 30, 2023. Work up completed for possible rapidly progressing dementia. -Prior brain imaging (MRI/CT at outside medical systems). -Hallucinations daily (asks her spouse when is Vimal going to come home? ; sees babies; puppies, squirrel on spouse's shoulder, gives sign of peace to people she sees in her home). -Recently discharged from [facility] services 4 months ago. Also previously had palliative care, no longer receiving this care. Onset and Progression: 2 years ago mild trouble with names of grandchildren. Changes noted following COVID dx (April 21 2023), spouse speaks of the pt being found wandering outside, confused. A few days after she did not recognize her spouse. She expressed not wanting to live, she was admitted to [facility] for further evaluation. Mobility changes at this time as well, previously walked regularly. Shuffling of feet, not swinging her arms. VH and misidentification of spouse also started at this time. Previous and Current treatment: Haldol 1 mg BID and as needed; Hydroxyzine; Melatonin; Mirtazapine; THC Functional Abilities ADL'S: Bathing:Independent vs need cuing Dressing: Needs cuing-puts spouse's clothing on Eating: Independent Toileting: Independent Ambulation: independent Falls in last 12 months:Yes Assistive device: cane IADL's Meal prep/Cooking: Needs assistance Shopping: Needs assistance Housekeeping: Needs assistance Laundry: Needs assistance Medication mgt.: Needs assistance Pill box in use? Overseen by spouse Telephone: Needs cuing Finances: Needs assistance Who does? Spouse always has Transportation: Needs assistance-stopped in April 2023 Is the patient driving: No Living Situation: With spouse Agencies involved: none currently-previously followed by [facility] Special Concerns: Hallucinations/Delusions: Yes: refers to seeing a woman with a black ribbon Believes parents are still living Sees babies, animals, people, other Vimal Misidentifies spouse Sleep: RBD No hx of falling OOB, no arm or leg movement reported, sleeping more-needs daytime naps 1.5 hours; talks/yells out in sleep; appears to act out dreams; confusion upon waking. Emergency: unrealistic plan: states would go to the neighbor's home Are there guns in the home? Yes-locked Home alone: Yes, occasionally. Medical Alert: No-information provided. Advanced Directives Durable POA: Yes Financial POA: Spouse will verify-information reviewed Consult [facility] SCREEN EXAMINER if not completed: role introduced, reviewed national organizations offering support, provided communication tips and caregiver strategies. ----- SOCIAL HISTORY -Education completed: 14 -Some college -No tobacco. No significant alcohol abuse. No history of substance abuse. 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 [facility] 04-12-2024 History of Present illness Narrative Concerned of UTI. Please send orders to [facility]. documented in this encounter [facility] 04-04-2024 History of Present illness Narrative Images from the original note were not included. Physical Therapy Physical Therapy Treatment Visit Patient Name: Donnie Bullock Today's Date: 04/04/2024 Encounter Diagnoses Name Primary? Generalized weakness Yes Rapidly progressive dementia (CMS/HCC) Unsteady gait Dizziness Visit number: 6 Supervised time: 40 min Total time: 42 min Time in: 9:55 am Time out: 10:37 pm Subjective Donnie Bullock 68 y.o. female presents to physical therapy with no c/o pain, issues are functional mobility and balance, deconditioning and meds likely a factor as well as cognitive issues/memory and not getting out and about as often. Some days worse than others with cognitive factors and weakness. Needs help in and out of bed and chairs at times, not today. Mechanism of Onset: Deconditioning, medications likely a factor Current deficits: weakness, balance deficits Pain: pt denies pain, reports she is doing pretty good this morning. Precautions: Fall risk low to med. Objective 30 sec chair rise test= 7 reps with UE assist from chair TUG= 14 sec without AD Ken knees and ankles grossly 4+ to 5/5 MMT Ken hip flex= 4+/5, abd=4-/5, ext=4-/5 MMT Balance: SLS balance less than or equal 3 sec ken NSEO ground, min sway, NSEC ground min to mod sway no A needed. NSEO foam mod sway no A needed. NSEC foam mod to severe sway only able to hold 5-10 sec max, min A 1 x to help prevent fall during testing. (At IE) Enters with today. Treatment Interventions Therapeutic Exercise: x30 min per KAVYA grid, ROM, flexibility, strength sup, followed directions well again today with verbal cues and demo for correct technique, reminded of reps. Some confusion with step ups. Therapeutic Activity: Exercises to improve dynamic activities, functional tasks, functional mobility to return to prior activity level Gait Training: prn Neuromuscular re-education: x12 min Balance training, july walk/BW walk 3 laps x 30 ft gait belt CGA along wall. Side steps 4 x 15 ft. NSEC ground 5 x 15 , NSEO/EC foam 5 x 15 with EC ~5 sec on/off during bouts, Close SBA to CGA. Assessment/Plan General weakness, balance issues 2nd to deconditioning, medications causing increased difficulty with ADLs/self care, caregiver burden at times, decreased QOL Pt demos good tolerance to KAVYA today. Intermittent v/c for technique and recall of KAVYA required. Pt demos very min sway with EC on ground and on foam so continued some EC on foam on/off. Close SBA to CGA for all balance. V/c required for posture with dynamic amb and step length with retro walk. Continue progression as tolerated. documented in this encounter [facility] 03-30-2024 History of Present illness Narrative Images from the original note were not included. Physical Therapy Physical Therapy Treatment Visit Patient Name: Donnie Bullock Today's Date: 03/30/2024 Encounter Diagnoses Name Primary? Generalized weakness Yes Rapidly progressive dementia (CMS/HCC) Unsteady gait Visit number: 5 Supervised time: 42 min Total time: 44 min Time in: 11:27 am Time out: 12:11 pm Subjective Donnie Bullock 68 y.o. female presents to physical therapy with no c/o pain, issues are functional mobility and balance, deconditioning and meds likely a factor as well as cognitive issues/memory and not getting out and about as often. Some days worse than others with cognitive factors and weakness. Needs help in and out of bed and chairs at times, not today. Mechanism of Onset: Deconditioning, medications likely a factor Current deficits: weakness, balance deficits Pain: pt denies pain, reports feeling dreery like the weather Precautions: Fall risk low to med. Objective 30 sec chair rise test= 7 reps with UE assist from chair TUG= 14 sec without AD Ken knees and ankles grossly 4+ to 5/5 MMT Ken hip flex= 4+/5, abd=4-/5, ext=4-/5 MMT Balance: SLS balance less than or equal 3 sec ken NSEO ground, min sway, NSEC ground min to mod sway no A needed. NSEO foam mod sway no A needed. NSEC foam mod to severe sway only able to hold 5-10 sec max, min A 1 x to help prevent fall during testing. Treatment Interventions Manual Therapy: prn Therapeutic Exercise: x30 min per KAVYA grid, ROM, flexibility, strength sup, followed directions well again today Therapeutic Activity: Exercises to improve dynamic activities, functional tasks, functional mobility to return to prior activity level Gait Training: prn Neuromuscular re-education: x12 min Balance traning Modalities: Assessment/Plan General weakness, balance issues 2nd to deconditioning, medications causing increased difficulty with ADLs/self care, caregiver burden at times, decreased QOL Pt demos good tolerance to KAVYA today. Intermittent v/c for technique and recall of KAVYA required. Pt demos very min sway with EC on ground and on foam. CGA for all balance. V/c required for posture with dynamic amb and step length with retro walk. Continue progression as tolerated. Cosigned by Mary Peterson PT at 03/31/2024 6:38 AM EST documented in this encounter [facility] 03-28-2024 History of Present illness Narrative Images from the original note were not included. Physical Therapy Physical Therapy Treatment Visit Patient Name: Donnie Bullock Today's Date: 03/28/2024 Encounter Diagnoses Name Primary? Generalized weakness Yes Rapidly progressive dementia (CMS/HCC) Unsteady gait Visit number: 4 Supervised time: 40 min Total time: 40 min Time in: 11:05 am Time out: 11:45 am Subjective Donnie Bullock 68 y.o. female presents to physical therapy with no c/o pain, issues are functional mobility and balance, deconditioning and meds likely a factor as well as cognitive issues/memory and not getting out and about as often. Some days worse than others with cognitive factors and weakness. Needs help in and out of bed and chairs at times, not today. Mechanism of Onset: Deconditioning, medications likely a factor Current deficits: weakness, balance deficits Pain: pt denies pain, reports fatigue upon arrival due to appts prior to therapy Precautions: Fall risk low to med. Objective 30 sec chair rise test= 7 reps with UE assist from chair TUG= 14 sec without AD Ken knees and ankles grossly 4+ to 5/5 MMT Ken hip flex= 4+/5, abd=4-/5, ext=4-/5 MMT Balance: SLS balance less than or equal 3 sec ken NSEO ground, min sway, NSEC ground min to mod sway no A needed. NSEO foam mod sway no A needed. NSEC foam mod to severe sway only able to hold 5-10 sec max, min A 1 x to help prevent fall during testing. Treatment Interventions Manual Therapy: prn Therapeutic Exercise: x27 min per KAVYA grid, ROM, flexibility, strength sup, followed directions well again today Therapeutic Activity: Exercises to improve dynamic activities, functional tasks, functional mobility to return to prior activity level Gait Training: prn Neuromuscular re-education: x13 min Balance traning NSEC on ground, NSEO on foam, NSEC today on foam with moderate sway but no LOB. Aynamic ambulation, july walk/ walk, lateral steps 3 laps ~30 ft cronin, all CGA Modalities: Assessment/Plan General weakness, balance issues 2nd to deconditioning, medications causing increased difficulty with ADLs/self care, caregiver burden at times, decreased QOL Pt demos good tolerance to KAVYA today. Only required moderate cues for pattern of completing step ups. Pt demos very min sway with EC on ground and EO on foam., mod sway with trial of EC on foam today but no LOB. CGA for all balance. Continue progression as tolerated. Cosigned by Alexandria Mcnair, PT at 03/28/2024 5:37 PM EST documented in this encounter [facility] 03-22-2024 History of Present illness Narrative Images from the original note were not included. Physical Therapy Physical Therapy Evaluation Visit Patient Name: Donnie Bullock Today's Date: 03/22/2024 Encounter Diagnoses Name Primary? Generalized weakness Yes Rapidly progressive dementia (CMS/HCC) Unsteady gait Dizziness Visit number: 3 Supervised time: 38 min Total time: 39 min Time in: 1:00 pm Time out: 1:39 pm Subjective Donnie Bullock 68 y.o. female presents to physical therapy with no c/o pain, issues are functional mobility and balance, deconditioning and meds likely a factor as well as cognitive issues/memory and not getting out and about as often. Some days worse than others with cognitive factors and weakness. Needs help in and out of bed and chairs at times, not today. Mechanism of Onset: Deconditioning, medications likely a factor Current deficits: weakness, balance deficits Pain: pt denies pain, reports being a little tired today. Precautions: Fall risk low to med. Objective 30 sec chair rise test= 7 reps with UE assist from chair TUG= 14 sec without AD Ken knees and ankles grossly 4+ to 5/5 MMT Ken hip flex= 4+/5, abd=4-/5, ext=4-/5 MMT Balance: SLS balance less than or equal 3 sec ken NSEO ground, min sway, NSEC ground min to mod sway no A needed. NSEO foam mod sway no A needed. NSEC foam mod to severe sway only able to hold 5-10 sec max, min A 1 x to help prevent fall during testing. Treatment Interventions Manual Therapy: prn Therapeutic Exercise: per KAVYA grid, ROM, flexibility, strength x 28 min sup, followed direction quite well again today few reminders what she is doing mid set, added HS and hip flexor stretches standing at steps with demo and cues. Therapeutic Activity: Exercises to improve dynamic activities, functional tasks, functional mobility to return to prior activity level Gait Training: prn Neuromuscular re-education: Balance traning x 10 min sup, NSEC on ground, NSEO on foam, dynamic ambulation march walk/BW walk 3 laps ~30 ft cronin. Modalities: Assessment/Plan General weakness, balance issues 2nd to deconditioning, medications causing increased difficulty with ADLs/self care, caregiver burden at times, decreased QOL Pt demos good tolerance to increased reps of all KAVYA today. Little more cuing needed during sets/reps forgetting what she was doing at time. Pt demos very min sway with EC on ground and EO on foam. Added dynamic amb with step to gait pattern during retro walk which improved during 2nd lap although step length inconsistent. V/c for posture required. Continue progression as tolerated. documented in this encounter [facility] 03-20-2024 History of Present illness Narrative Images from the original note were not included. Chief Complaint: Dementia Subjective Donnie Richardson Elder, 68 y.o., female Patient presents today for a follow up for rapidly progressive dementia. She is here with her . Patient was in the ER last Wednesday for increased confusion. This started Wednesday being more confused than usual and worsened on Wednesday. Her thought she had a UTI which she did not. He states all testing was normal. They told her to follow up with neurology. Things went back to her normal on Wednesday. Her states her hallucinations have worsened. She is still seeing people and babies. He states the vivid dreams have improved since stopping melatonin. He denies any wandering. They state the tremor has been about the same. Review of Systems Constitutional: Negative for appetite change, fatigue and fever. Respiratory: Negative for cough, shortness of breath and wheezing. Cardiovascular: Negative for chest pain, palpitations and leg swelling. Gastrointestinal: Negative for abdominal pain, constipation, diarrhea and nausea. Musculoskeletal: Negative for arthralgias, gait problem and myalgias. Neurological: Negative for dizziness, tremors, numbness and headaches. Endorses memory loss Psychiatric/Behavioral: Positive for agitation, behavioral problems and hallucinations. Medication List Accurate as of March 20, 2024 2:16 PM. If you have any questions, ask your nurse or doctor. CONTINUE taking these medications diazePAM 2 MG tablet; Commonly known as: Valium; Take 1 tablet (2 mg) by mouth 4 (four) times a day as needed for anxiety for up to 10 days haloperidol 1 MG tablet; Commonly known as: Haldol; TAKE 1/2 TABLET (0.5MG) IN THE MORNING AND TAKE 1 TABLET (1MG) AT SUPPER hydrOXYzine HCl 25 MG tablet; Commonly known as: Atarax; TAKE 1 TABLET (25 MG) BY MOUTH 4 (FOUR) TIMES A DAY NEEDED FOR ANXIETY lactulose 10 GM/15ML solution; Commonly known as: Chronulac Melatonin 10 MG capsule; Take 10 mg by mouth at bedtime mirtazapine 15 MG tablet; Commonly known as: Remeron; TAKE 1 TABLET BY MOUTH AT BEDTIME morphine 100 MG/5ML concentrated solution senna-docusate sodium 8.6-50 MG tablet; Commonly known as: Senokot-S Past Medical History: Diagnosis Date Abdominal pain, generalized Arthritis At moderate risk for fall Brachial neuritis or radiculitis 05/25/2014 Carpal tunnel syndrome 05/25/2014 Change in stool caliber Chronic neck pain Constipation, chronic DDD (degenerative disc disease), cervical Dementia ([facility]) Depression ([facility]) May 25 Dyslipidemia ([facility]) DALILA (generalized anxiety disorder) ([facility]) Gastroesophageal reflux disease Impaired fasting glucose Lewy body dementia ([facility]) Loss of balance Low back pain, non-specific Olecranon bursitis, right elbow Orthostatic hypotension Osteopenia of lumbar spine Parkinson's disease ([facility]) 2023 PSVT (paroxysmal supraventricular tachycardia) ([facility]) Skin cancer Vertigo Past Surgical History: Procedure Laterality Date CARPAL TUNNEL RELEASE Left 06/15/2014 MTP CARPAL TUNNEL RELEASE Right 06/29/2014 MTP DILATION AND CURETTAGE OF UTERUS 2004 EYE SURGERY HYSTERECTOMY 2007 [place] REMOVE TONSILS/ADENOIDS,12+ Y/O 1960 Family History Problem Relation Name Age of Onset Cancer Mother Ayla Jonas Arthritis Mother Ayla Jonas Hypertension Father Carlos Jonas Cancer Father Carlos Jonas Heart disease Sibling Arthritis Maternal Grandmother Dayna Mackayhey Social History Tobacco Use Smoking status: Never Passive exposure: Never Smokeless tobacco: Never Substance Use Topics Alcohol use: Not Currently Allergies: Alprazolam Vitals: 03/20/24 1352 BP: 127/76 Pulse: 77 SpO2: 96% Body mass index is 26.4 kg/m . weight: 156 lb 3.2 oz Neurologic exam: Mental status: Patient was sleepy during today's appointment. Attention was poor. Memory was poor. Oriented to person and place but not time Cranial nerves: CN II: Visual acuity is normal. Visual wagner full to confrontation. CN III, IV, : pupils equal round and reactive to light. Extraocular movements intact. No ptosis present. CN V: Facial sensation is normal. CN VII: Full and symmetric facial movement. CN VIII: Hearing is normal to finger rub bilaterally: CN IX and X: Palate elevates symmetrically. Normal gag reflex. CN XI: Shoulder shrug is normal bilaterally. CN XII: Tongue is midline without atrophy or fasciculation. Motor: Strength is 5/5 throughout. Bulk is normal. Sensory: Sensation is intact to light touch throughout Four extremities. Reflexes: Deep tendon reflexes are 2+ and symmetric throughout. Coordination: Vdyrhy-oc-frii testing and rapid alternating movements are normal Gait: Normal Review and summary of old records: Patient was seen at [facility] for altered mental status at the end of February 2024. CT of the brain without contrast: No abnormal or suspicious findings. Stable atrophy and chronic changes. UA was negative for infectious etiology. CBC was largely unremarkable. Basic metabolic panel was largely unremarkable. No acute process was identified in the patient was discharged in stable condition. CSF CJD panel: negative (noted colored specimen decreasing sensitivity of test) Autoimmune encephalitis panel on 09/29/2023: Negative CSF evaluation for rapidly progressive dementia showed a negative PCR panel for meningitis. There is a question of a positive Staph epidermidis infection without evidence of previous hardware in the brain and likely a contaminant given the bloody tap CSF cytology, no evidence of malignant or atypical cells CSF protein and glucose are within normal limits CSF red blood cells were greater than 3000 and in that tube there were approximately 50 white blood cells and in the following 2 there were 130 red cells and approximately 8 white blood cells Neuropsych evaluation and advanced Neurology on 10/04/2023: Evidence of multiple facets of deficiency with visual-spatial, processing, memory, attention, paranoia and complex visual hallucinations all noted with capgras syndrome and most consistent with probable Lewy body dementia Routine EEG and advanced Neurology on 09/08/2023: Normal CT of the chest/abdomen/pelvis: with and without contrast on 09/14/2023: No acute abnormality of the chest, abdomen or pelvis MRI of the brain without contrast on 05/25/2023: Unremarkable CT of the brain on 05/23/2023: Atrophy with chronic microvascular changes. No acute changes noted. CT of the brain on 05/20/2023: No evidence of acute intracranial hemorrhage Assessment/Plan Diagnoses and all orders for this visit: Lewy body dementia: It is my impression that the patient has rapidly progressive dementia. She has had an extensive change in her cognitive and physical abilities since around March 2023. She had an MRI of the brain which was unremarkable. She has not able to participate with [facility] cognitive assessment. Routine EEG was unremarkable. Neuropsych assessment is suggestive of probable Lewy body dementia. Lumbar puncture did not reveal any evidence of malignant cells. Autoimmune encephalitis panel did not yield any abnormalities. CJD panel is negative. Overall, now that she is having more shuffling of her gait, more clear visual hallucinations and the dementia process I believe overall the picture is declaring itself to be that of Lewy body dementia. . Plan: Patient will continue medications for psychiatric component of the disease including Haldol 1 mg p.o. b.I.d., Remeron 15 mg p.o. q.h.s. and hydroxyzine t.I.d. I have suggested weaning hydroxyzine to 1 tablet p.o. b.I.d. for 2 weeks then 1 tablet p.o. daily for 2 weeks and then trying to stop it. If the patient has anxieties do increase the patient's can restart at the t.I.d. dosing. These are being refilled by primary care at this time as the patient has really not able to access psychiatric care. I am okay with the utilization of THC products if it is clearly beneficial to the patient and the patient's states that it clearly is very helpful for her and her anxieties and stress. The patient does not drive and should not drive. Anxiety The patient has substantial anxiety and has been getting strong medications from hospice who was actually put on her case due to this dementia processes the patient was very difficult to manage for her at home. She lives with her and nobody else in the home. . Plan: Referral to Psychiatry to further manage her medications for her cognitive dysfunction and psychiatric manifestation of what I suspect to be this rapidly progressive dementia process as outlined above. We did request psychiatric help with this patient as this patient was seen in the inpatient setting and was placed on Haldol. However, patient really has not been able to obtain outpatient psychiatric help and follow up. The patient continues on Haldol, hydroxyzine and Remeron. Additional information is taken with the patient's who accompanies her to the visit today. Pt has been fully educated on their diagnosis, lab results, treatment options, follow up plan, return instructions, and discussion of mental health issues documented in this encounter [facility] 03-16-2024 History of Present illness Narrative Images from the original note were not included. Physical Therapy Physical Therapy Evaluation Visit Patient Name: Donnie Bullock Today's Date: 03/16/2024 Encounter Diagnoses Name Primary? Generalized weakness Yes Rapidly progressive dementia (CMS/HCC) Unsteady gait Visit number: 1 Martina Richardson Elder 68 y.o. female presents to physical therapy with no c/o pain, issues are functional mobility and balance, deconditioning and meds likely a factor as well as cognitive issues/memory and not getting out and about as often. Some days worse than others with cognitive factors and weakness. Needs help in and out of bed and chairs at times, not today. Mechanism of Onset: Deconditioning, medications likely a factor Current deficits: weakness, balance deficits Pain: no c/o pain on daily basis or today, no falls reported by pt or Precautions: Fall risk low to med. Objective 30 sec chair rise test= 7 reps with UE assist from chair TUG= 14 sec without AD Ken knees and ankles grossly 4+ to 5/5 MMT Ken hip flex= 4+/5, abd=4-/5, ext=4-/5 MMT Balance: SLS balance less than or equal 3 sec ken NSEO ground, min sway, NSEC ground min to mod sway no A needed. NSEO foam mod sway no A needed. NSEC foam mod to severe sway only able to hold 5-10 sec max, min A 1 x to help prevent fall during testing. Treatment Interventions Education: HEP education with demonstration with handout and review, Educated on Eval Findings and POC with both pt and x 10 min self care, issued green band for cla Manual Therapy: prn Therapeutic Exercise: per KAVYA grid, ROM, flexibility, strength x 20 min sup, followed direction quite well today Therapeutic Activity: Exercises to improve dynamic activities, functional tasks, functional mobility to return to prior activity level Gait Training: prn Neuromuscular re-education: Balance traning x 8 min sup, NSEC on ground, NSEO on foam and short durations eyes closed on foam 2-3 sec at a time. Modalities: Assessment/Plan General weakness, balance issues 2nd to deconditioning, medications causing increased difficulty with ADLs/self care, caregiver burden at times, decreased QOL Patient Goals Short Term Goal #1: pt will demo improve functional strength per 30 sec chair rise test greater than or equal to 10 reps with UE assist from chair Short Term Goal #2: pt will demo improved functional mobility, balance per TUG less than or equal to 10 sec without AD Short Term Goal #3: pt and pt family will be ind with HEP for maintenance at DC Pt will benefit from skilled PT to address the above impairments for 2-3x/week for 4-8 weeks pending pt needs/progress I hereby deem this POC medically necessary. Please sign below. Date: documented in this encounter [facility] 03-14-2024 Telephone encounter Note Patient with worsening confusion and concerned of UTI. Please fax lab order to hospital. [facility] 03-14-2024 Miscellaneous Notes Patient with worsening confusion and concerned of UTI. Please fax lab order to hospital. documented in this encounter [facility] 03-09-2024 History of Present illness Narrative Patient declining and requests PT. Please write PT order for unsteady gait, generalized weakness, and dementia. documented in this encounter [facility] 02-09-2024 History of Present illness Narrative Physical Therapy Physical Therapy Evaluation Patient Name: Donnie Bullock Today's Date: 02/09/2024 Please referred to scanned document from Evaluation on 02/09/24 documented in this encounter [facility] 02-02-2024 History of Present illness Narrative Images from the original note were not included. Subjective Patient ID: Donnie Bullock is a 68 y.o. female who presents for Nail care (Donnie Bullock is a 67 y.o. female who presents for Nail care. ). HPI Chief complaint: Presents requesting nail care. Symptomatic toenail deformity. Identifies multiple digits as problematic/symptomatic; describes pressure discomfort with shoe gear, catching and snagging on clothing, bed sheets etc.. Symptomatic over the past several weeks or so again impacting her ability to wear shoes comfortably. Denies bleeding or drainage. Chronic toenail deformity of multiple years' duration. Self-care is difficult ineffective and not practical; increasing risk exposure. Her spouse is no longer able or comfortable to provide effective care. Palliative care measures have provided favorable transient symptom relief. Risk factors: Post-COVID mental changes. Parkinson's disease. Mobility, flexibility and dexterity restraints. Toenail deformity. Digital and/or shoe trauma and related complications. Medications Current Outpatient Medications: haloperidol (Haldol) 1 MG tablet, TAKE 1/2 TABLET (0.5MG) IN THE MORNING AND TAKE 1 TABLET (1MG) AT SUPPER, Disp: 30 tablet, Rfl: 1 hydrOXYzine HCl (Atarax) 25 MG tablet, TAKE 1 TABLET (25 MG) BY MOUTH 4 (FOUR) TIMES A DAY NEEDED FOR ANXIETY, Disp: 360 tablet, Rfl: 2 lactulose (Chronulac) 10 GM/15ML solution, Take 10 g by mouth at bedtime, Disp: , Rfl: Melatonin 10 MG capsule, Take 10 mg by mouth at bedtime, Disp: 30 capsule, Rfl: 5 mirtazapine (Remeron) 15 MG tablet, Take 1 tablet (15 mg) by mouth at bedtime, Disp: 30 tablet, Rfl: 5 morphine 100 MG/5ML concentrated solution, every 1 (one) hour if needed, Disp: , Rfl: senna-docusate sodium (Senokot-S) 8.6-50 MG tablet, Take 1 tablet by mouth Daily, Disp: , Rfl: Allergies Alprazolam Past Surgical History Past Surgical History: Procedure Laterality Date CARPAL TUNNEL RELEASE Left 06/15/2014 MTP CARPAL TUNNEL RELEASE Right 06/29/2014 MTP DILATION AND CURETTAGE OF UTERUS 2004 EYE SURGERY HYSTERECTOMY 2007 [place] REMOVE TONSILS/ADENOIDS,12+ Y/O 1958 Family History Family History Problem Relation Name Age of Onset Cancer Mother Ayla Jonas Arthritis Mother Ayla Jonas Hypertension Father Carlos Jonas Cancer Father Carlos Jonas Heart disease Sibling Arthritis Maternal Grandmother Dayna Arambula Objective General assessment: Alert and oriented. Pleasant disposition. Accompanied by her spouse, [facility]: DP 2/4 bilateral. PT 1/4 bilateral. CFT brisk all digits. Gradient temperature: Warm-slightly cool bilateral. Mild blanchable cyanosis along the distal medial margins bilateral great toes; without ischemia or necrosis. Unremarkable for ankle edema. Neurologic: Tactile and light touch sensation intact. Dermatologic: Intact. Skin turgor is good. Web space areas are clean, dry, non-inflamed. Unremarkable for eczema or dermatitis. Toenail pathology: All digits: None are spared: Varying degrees of toenail dystrophy, hypertrophy, thickening, clubbing, discoloration, crumbly texture, elongation, clinical mycosis, periungual hyperkeratosis, without drainage. Bilateral great toes: Notable pincer deformity. Total with debris: Multiple digits. Orthopedic: Range of motion: Demonstrates functional ankle, subtalar and 1st MTP joint range of motion. Lesion pattern: No forefoot or digital discrete keratotic lesions are noted. No obvious or distinct digital deformities are noted. Radiology: Assessment/Plan Mildly symptomatic onychodystrophy/mycosis multiple digits. Mild dementia; post-COVID psychosis with anxiety. Plan: Conservative and palliative care measures are preferred, understood and again indicated. May continue topical care measures: Use of vinegar and/or Listerine as directed as able to do so; advised as to limited efficacy. Hygiene and skin care measures discussed. Procedure: Toenail debridement: Aseptic technique: Hand and power instrumentation: Onychodebridement in length and thickness, with curettage of any cryptotic margins, all periungual debris; providing effective symptom and pressure relief; reducing shoe and digital trauma. This note was created with the assistance of a speech recognition program. While intending to generate a timely document that accurately reflects the content of the visit, no guarantee can be provided that every grammatical or spelling mistake has been or will be identified or corrected. Thank you for your understanding. Herson Uribe DPM documented in this encounter [facility] 02-02-2024 Instructions Herson Uribe DPM - 02/02/2024 9:30 AM EDT As noted documented in this encounter [facility] 01-25-2024 History of Present illness Narrative Images from the original note were not included. Chief Complaint: Dementia Subjective Donnie Richardson Elder, 68 y.o., female Patient is here today for a follow up. She is accompanied by her . Patient states things have been a bit of a struggle. Her states things have been worse. Patient states she has been struggling since the last visit she feels like she is a ticking time bomb. states her shakes have been worse and she has been hallucination more. Hallucinations are more often at night time but can occur anytime. She is thinking things and seeing things that are not there. He states she sees babies quite often. He states the behavioral center in [place] told them this condition is physical not mental so they would not see them. He has been researching this quite a bit. She was taken off of hospice this past Wednesday. They told them they really isn't a need for it quite yet. She denies having suicidal ideations currently, but has mentioned this quite a bit. states she does not have suicidal thoughts but she does not want to live. is asking if there is a way to get an order for oxygen. He states she was on this with hospice but they don't currently have this. He says she uses this for her anxiety and it is very helpful. states she has been using pretzel sticks that have THC and CBD and he states these are extremely helpful. Review of Systems Constitutional: Negative for appetite change, fatigue and fever. Respiratory: Negative for cough, shortness of breath and wheezing. Cardiovascular: Negative for chest pain, palpitations and leg swelling. Gastrointestinal: Negative for abdominal pain, constipation, diarrhea and nausea. Musculoskeletal: Negative for arthralgias, gait problem and myalgias. Neurological: Negative for dizziness, tremors, numbness and headaches. Endorses memory loss Psychiatric/Behavioral: Positive for agitation, behavioral problems and hallucinations. Medication List Accurate as of January 25, 2024 11:59 AM. If you have any questions, ask your nurse or doctor. CONTINUE taking these medications haloperidol 1 MG tablet; Commonly known as: Haldol; TAKE 1/2 TABLET (0.5MG) IN THE MORNING AND TAKE 1 TABLET (1MG) AT SUPPER hydrOXYzine HCl 25 MG tablet; Commonly known as: Atarax; TAKE 1 TABLET (25 MG) BY MOUTH 4 (FOUR) TIMES A DAY NEEDED FOR ANXIETY lactulose 10 GM/15ML solution; Commonly known as: Chronulac Melatonin 10 MG capsule; Take 10 mg by mouth at bedtime mirtazapine 15 MG tablet; Commonly known as: Remeron; Take 1 tablet (15 mg) by mouth at bedtime morphine 100 MG/5ML concentrated solution senna-docusate sodium 8.6-50 MG tablet; Commonly known as: Senokot-S Past Medical History: Diagnosis Date Abdominal pain, generalized Arthritis At moderate risk for fall Brachial neuritis or radiculitis 05/25/2014 Carpal tunnel syndrome 05/25/2014 Change in stool caliber Chronic neck pain Constipation, chronic DDD (degenerative disc disease), cervical Depression (CMS/HCC) May 25 Dyslipidemia (CMS/HCC) DALILA (generalized anxiety disorder) (CMS/HCC) Gastroesophageal reflux disease Impaired fasting glucose Lewy body dementia (CMS/HCC) Loss of balance Low back pain, non-specific Olecranon bursitis, right elbow Orthostatic hypotension Osteopenia of lumbar spine PSVT (paroxysmal supraventricular tachycardia) (CMS/HCC) Skin cancer Vertigo Past Surgical History: Procedure Laterality Date CARPAL TUNNEL RELEASE Left 06/15/2014 MTP CARPAL TUNNEL RELEASE Right 06/29/2014 MTP DILATION AND CURETTAGE OF UTERUS 2005 EYE SURGERY HYSTERECTOMY 2008 [place] REMOVE TONSILS/ADENOIDS,12+ Y/O 1959 Family History Problem Relation Name Age of Onset Cancer Mother Ayla Jonas Arthritis Mother Ayla Jonas Hypertension Father Carlos Jonas Cancer Father Carlos Jonas Heart disease Sibling Arthritis Maternal Grandmother Dayna Tyesha Social History Tobacco Use Smoking status: Never Passive exposure: Never Smokeless tobacco: Never Substance Use Topics Alcohol use: Not Currently Allergies: Alprazolam Vitals: 01/25/24 1145 BP: 125/77 Pulse: 73 SpO2: 97% Body mass index is 27.11 kg/m . weight: 160 lb 6.4 oz Neurologic exam: Mental status: Patient was sleepy during today's appointment. Attention was poor. Memory was poor. Oriented to person and place but not time Cranial nerves: CN II: Visual acuity is normal. Visual wagner full to confrontation. CN III, IV, : pupils equal round and reactive to light. Extraocular movements intact. No ptosis present. CN V: Facial sensation is normal. CN VII: Full and symmetric facial movement. CN VIII: Hearing is normal to finger rub bilaterally: CN IX and X: Palate elevates symmetrically. Normal gag reflex. CN XI: Shoulder shrug is normal bilaterally. CN XII: Tongue is midline without atrophy or fasciculation. Motor: Strength is 5/5 throughout. Bulk is normal. Sensory: Sensation is intact to light touch throughout Four extremities. Reflexes: Deep tendon reflexes are 2+ and symmetric throughout. Coordination: [id number] testing and rapid alternating movements are normal Gait: Normal Review and summary of old records: CSF CJD panel: negative (noted colored specimen decreasing sensitivity of test) Autoimmune encephalitis panel on 09/29/2023: Negative CSF evaluation for rapidly progressive dementia showed a negative PCR panel for meningitis. There is a question of a positive Staph epidermidis infection without evidence of previous hardware in the brain and likely a contaminant given the bloody tap CSF cytology, no evidence of malignant or atypical cells CSF protein and glucose are within normal limits CSF red blood cells were greater than 3000 and in that tube there were approximately 50 white blood cells and in the following 2 there were 130 red cells and approximately 8 white blood cells Neuropsych evaluation and advanced Neurology on 10/04/2023: Evidence of multiple facets of deficiency with visual-spatial, processing, memory, attention, paranoia and complex visual hallucinations all noted with capgras syndrome and most consistent with probable Lewy body dementia Routine EEG and advanced Neurology on 09/08/2023: Normal CT of the chest/abdomen/pelvis: with and without contrast on 09/14/2023: No acute abnormality of the chest, abdomen or pelvis MRI of the brain without contrast on 05/25/2023: Unremarkable CT of the brain on 05/23/2023: Atrophy with chronic microvascular changes. No acute changes noted. CT of the brain on 05/20/2023: No evidence of acute intracranial hemorrhage Assessment/Plan Diagnoses and all orders for this visit: Lewy body dementia: It is my impression that the patient has rapidly progressive dementia. She has had an extensive change in her cognitive and physical abilities since around March 2023. She had an MRI of the brain which was unremarkable. She has not able to participate with [place] cognitive assessment. Routine EEG was unremarkable. Neuropsych assessment is suggestive of probable Lewy body dementia. Lumbar puncture did not reveal any evidence of malignant cells. Autoimmune encephalitis panel did not yield any abnormalities. CJD panel is negative. Overall, now that she is having more shuffling of her gait, more clear visual hallucinations and the dementia process I believe overall the picture is declaring itself to be that of Lewy body dementia. . Plan: Patient will continue medications for psychiatric component of the disease including Haldol 1 mg p.o. b.I.d., Remeron 15 mg p.o. q.h.s. and hydroxyzine t.I.d. These are being refilled by primary care at this time as the patient has really not able to access psychiatric care. I am okay with the utilization of THC products if it is clearly beneficial to the patient and the patient's states that it clearly is very helpful for her and her anxieties and stress. The patient does not drive and should not drive. Anxiety The patient has substantial anxiety and has been getting strong medications from hospice who was actually put on her case due to this dementia processes the patient was very difficult to manage for her at home. She lives with her and nobody else in the home. . Plan: Referral to Psychiatry to further manage her medications for her cognitive dysfunction and psychiatric manifestation of what I suspect to be this rapidly progressive dementia process as outlined above. Patient has already seen Dr. Hoffman in the inpatient setting and actually very much needs to follow up with them in the outpatient setting that she was on Haldol. She is quite tired during the day and I feel she would benefit from a reduction in the morning doses of antipsychotic medication and perhaps a little bit more utilization of them in the evening. She is also projected to go back on hospice care per her family which I think reasonable. However, I do feel she has functioning quite a high level still. Additional information is taken with the patient's who accompanies her to the visit today. Pt has been fully educated on their diagnosis, lab results, treatment options, follow up plan, return instructions, and discussion of mental health issues documented in this encounter [facility] 09-22-2023 Progress note Note Date/Time September 22, 2023 9:37am [facility] [address] [place], [place] [id number] Psychiatry Progress Note Signed Patient: Donnie Bullock MR#: [id number] : 1955 Acct:[id number] Age/Sex: 67 / F Adm Date: 4 Loc: Room: [address] [place] [address] Type : ADM IN Attending Dr: Sridhar [...] MD> 09/22/23 0937 [facility] Work Phone: 1(274) 614-516605-07-2024 Progress note Author Lionel kingsley [facility] September 20, 2023 10:19pm Note Date/Time September 20, 2023 10:19p m [facility] [address] [place] [address] Psychiatry Progress Note Signed Patient: Donnie Bullock MR#: [id number] : 1955 Acct:[id number] Age/Sex: 67 / F Adm Date: 4 Loc: Room: [address] [place] [address] Type : ADM IN Attending Dr: Sridhar [...] <Electronically signed by Lionel Still MD> 09/20/23 9689 [facility] Work Phone: 1(904) 979-655305-05-2024 Progress note Author Sridhar Hoffman [facility] September 19, 2023 11:52am Note Date/Time September 19, 2023 11:51a m [facility] [address] [place] [address] Psychiatry Progress Note Signed Patient: Donnie Bullock MR#: [id number] : 1955 Acct:[id number] Age/Sex: 67 / F Adm Date: 4 Loc: Room: [address] [place] [address] Type : ADM IN Attending Dr: Sridhar [...] that she is out of school in [place]. Mental Status Exam: Appearance: grossly normal Mental [...] signed by Sridhar Hoffman MD> 09/19/23 1152 [facility] Work Phone: 1(428) 297-724605-04-2024 Progress note Author Sridhar Hoffman [facility] September 18, 2023 10:54am Note Date/Time September 18, 2023 10:53a m [facility] [address] [place] [address] Psychiatry Progress Note Signed Patient: Donnie Bullock MR#: [id number] : 1955 Acct:[id number] Age/Sex: 67 / F Adm Date: 4 Loc: Room: [address] [place] [address] Type : ADM IN Attending Dr: Sridahr Hoffman MD Copies to: ~ Date of [...] <Electronically signed by Sridhar Hoffman MD> 09/18/23 7558 [facility] Work Phone: 1(939) 705-242405-03-2024 Progress note Author Sridhar Hoffman [facility] September 17, 2023 11:40am Note Date/Time September 17, 2023 11:40a m [facility] [address] [place] [address] Psychiatry Progress Note Signed Patient: Donnie Bullock MR#: [id number] : 1955 Acct:[id number] Age/Sex: 67 / F Adm Date: 4 Loc: Room: [address] [place] [address] Type : ADM IN Attending Dr: Sridhar [...] <Electronically signed by Sridhar Hoffman MD> 09/17/23 1142 [facility] Work Phone: 1(700) 611-348405-02-2024 Progress note Author Sridhar Hoffman [facility] September 16, 2023 12:53pm Note Date/Time September 16, 2023 12:53p m [facility] [address] [place], [place] [address] Psychiatry Progress Note Signed Patient: Donnie Bullock MR#: [id number] : 1955 Acct:[id number] Age/Sex: 67 / F Adm Date: 4 Loc: 1S Room: 1G9560-8 Type : ADM IN Attending Dr: Sridhar [...] MD> 09/16/23 1253 [facility] Work Phone: 1(271) 570-728605-01-2024 History and physical note Author Sridhar Hoffman [facility] September 15, 2023 12:23pm Note Date/Time September 15, 2023 12:24p m [facility] [address] [place] [address] Psychiatry H&P Signed Patient: Donnie Bullock MR#: [id number] : 1955 Acct:[id number] Age/Sex: 67 / F Adm Date: 4 Loc: Room: [address] [place] [address] Type: ADM IN Attending Dr: Sridhar Hoffman [...] way she was living. It was documented thatshe told her to hide all the knives because she thought that she was going to hurt herself. She reported that she thought she saw an Mormonism girl while here in the hospital. She [...] homicidality, reported suicidality Insight: fair Judgment: fair [facility] Medical History Osteopenia History of [...] Appearance Clear Urine pH 7.0 Ur Specific Mcnary 1.004 Urine Protein Negative Urine Glucose (UA) [...] signed by Sridhar Hoffman MD> 09/15/23 1223 [facility] Work Phone: 1(277) 912-141202-14-2024 Telephone encounter Note* Telephone Encounter - Remigio Simpson MD - 06/30/2023 12:26 PM EST Patient with increased confusion and concerned of UTI. Please fax orders to [facility]. [phone] Miscellaneous Notes* Telephone Encounter - Remigio Simpson MD - 06/30/2023 12:26 PM EST Patient with increased confusion and concerned of UTI. Please fax orders to [facility]. [id number] Hospital Discharge instructions Additional Instructions Important Contact Information You can call [facility] at [phone] any time day or night if you have emergent questions or question regarding discharge instructions. If at any time you are feeling an increase in your psychiatric symptoms, call your physician or behavioral healthcare provider. If any time you have thoughts of harming yourself or others contact one of the following: Call 8-8 (available 07/12) Crisis Text Line (available 07/12) text 4HOPE to [phone] [facility] Hope Line (available 8 a.m. Midnight) call [phone] ([phone]) [facility] Work Phone: 1(272) 689-658908-25-2023 NoteChief Complaint consultation for change in bowel habits [facility] Staff 67 year old female presents on [...] Tobacco Use:. Household tobacco (more content not included)...[facility] Comment on above:Result Comment: Electronically Signed By: AVNI ROGERS, Amor Rangel\Date and Time Signed: 01/08/23 15:31 [id number] NotePROCEDURE: XR ELBOW RT MIN 3 VIEWS HISTORY: Pain of right elbow joint since falling one year ago COMPARISON: None. FINDINGS: BONES:No fracture, acute abnormality, or significant arthropathy. SOFT TISSUES:No visible soft tissue swelling. EFFUSION:None visible. OTHER: Negative. IMPRESSION: 1. Normal examination. Electronically authenticated by: HERSON REBOLLEDO Date: 2022-03-12 18:14[facility] summary Author Lionel kingsley [facility] September 22, 2023 8:41pm Note Date/Time September 22, 2023 8:41pm [facility] [address] [place] [address] Discharge Summary Signed Patient: Donnie Bullock MR#: [id number] : 1955 Acct:[id number] Age/Sex: 67 / F Adm Date: 4 Loc: Room: [address] [place] [address]: Sridhar Hoffman MD Copies to: [...] reported that she thought she saw an Mormonism girl while here in the hospital. She [...] Instructions: Important Contact Information You can call [facility] at [phone] any time day or night if you have emergent questions or question regarding discharge instructions. If at any time you are feeling an increase inyour psychiatric symptoms, call your physician or behavioral healthcare provider. If any time you have thoughts of harming yourself or others contact one of the following: Call (available 07/12) Crisis Text Line (available 07/12) text 4HOPE to [phone] [facility] Hope Line (available 8 a.m. Midnight) call [phone] ([id number]) Instructions: Dementia (DC), [facility] [place] Instructions, Know your Meds [...] Hospital [Outside] - 09/29/23 12:30 pm (A case specialist will call you on 09/23/23 between 8:00am [...] 19:40 Documented By: Lionel Still MD [id number] Signed By: <Electronically signed by Lionel Still MD> 09/22/23 2041 [facility] Work Phone: Evaluation + Plan note No data available for this section General Surgery Tomy evalufefes noteNo assessment information available [facility] Work Phone: Evaluation note* Diagnosis Onset Date Resolution Status Anxiety acute Confusion acute Depression acute Major neurocognitive disorder acute Suicidal ideation acute [facility] Work Phone: Evaluation note* Diagnosis Recurrent [...] Major neurocognitive disorder acute Suicidal ideation acute [facility] Work Phone: Evaluation note* Diagnosis DALILA (generalized [...] screening by mammogram Dizziness Dizziness and giddiness Generalized weakness- Primary Rapidly progressive dementia (CMS/HCC) Unsteady gait Abnormality of gait [facility] Diagnosis Mild neurocognitive disorder- Primary MDD (major depressive disorder), recurrent episode, mild (HCC) (CMS/HCC) Generalized weakness Rapidly progressive dementia (CMS/HCC)- Primary Bilateral primary osteoarthritis of knee Breast cancer screening by mammogram Dizziness Dizziness and giddiness Generalized weakness- Primary Rapidly progressive dementia (CMS/HCC) Unsteady gait Abnormality of gait [facility] Diagnosis Mild neurocognitive disorder- Primary MDD (major depressive disorder), recurrent episode, mild (HCC) (CMS/HCC) Generalized weakness Rapidly progressive dementia (CMS/HCC)- Primary Bilateral primary osteoarthritis of knee Breast cancer screening by mammogram Dizziness Dizziness and giddiness Lewy body dementia with psychotic disturbance, unspecified dementia severity (CMS/HCC)- Primary Anxiety Anxiety state, unspecified [facility] Diagnosis Mild neurocognitive disorder- Primary MDD (major depressive disorder), recurrent episode, mild (HCC) (CMS/HCC) Generalized weakness Rapidly progressive dementia (CMS/HCC)- Primary Bilateral primary osteoarthritis of knee Breast cancer screening by mammogram Dizziness Dizziness and giddiness Generalized weakness- Primary Rapidly progressive dementia (CMS/HCC) Unsteady gait Abnormality of gait Dizziness Dizziness and giddiness [facility] Diagnosis Mild neurocognitive disorder- Primary MDD (major depressive disorder), recurrent episode, mild (HCC) (CMS/HCC) Generalized weakness Rapidly progressive dementia (CMS/HCC)- Primary Bilateral primary osteoarthritis of knee Breast cancer screening by mammogram Dizziness Dizziness and giddiness Generalized weakness- Primary Rapidly progressive dementia (CMS/HCC) Unsteady gait Abnormality of gait Dizziness Dizziness and giddiness [facility] Diagnosis Mild neurocognitive disorder- Primary MDD (major depressive disorder), recurrent episode, mild (HCC) (CMS/HCC) Generalized weakness Rapidly progressive dementia (CMS/HCC)- Primary Bilateral primary osteoarthritis of knee Breast cancer screening by mammogram Dizziness Dizziness and giddiness Generalized weakness- Primary Rapidly progressive dementia (CMS/HCC) Unsteady gait Abnormality of gait [facility] Diagnosis Mild neurocognitive disorder- Primary MDD (major depressive disorder), recurrent episode, mild (HCC) (CMS/HCC) Generalized weakness Rapidly progressive dementia (CMS/HCC)- Primary Bilateral primary osteoarthritis of knee Breast cancer screening by mammogram Dizziness Dizziness and giddiness Generalized weakness- Primary Rapidly progressive dementia (CMS/HCC) Unsteady gait Abnormality of gait [facility] Diagnosis Mild neurocognitive disorder- Primary MDD (major depressive disorder), recurrent episode, mild (HCC) (CMS/HCC) Generalized weakness Rapidly progressive dementia (CMS/HCC)- Primary Bilateral primary osteoarthritis of knee Breast cancer screening by mammogram Dizziness Dizziness and giddiness Generalized weakness- Primary Rapidly progressive dementia (CMS/HCC) Unsteady gait Abnormality of gait documented in this encounter [facility] Healthcare[facility]* Diagnosis Mild neurocognitive disorder- Primary [...] screening by mammogram Dizziness Dizziness and giddiness Urinary tract infection without hematuria, site unspecified documented in this encounter [facility] HealthcareEvaluation note* Diagnosis Mild neurocognitive disorder- Primary MDD (major depressive disorder), recurrent episode, mild (HCC) (CMS/HCC) Generalized weakness Rapidly progressive dementia (CMS/HCC)- Primary Bilateral primary osteoarthritis of knee Breast cancer screening by mammogram Dizziness Dizziness and giddiness Generalized weakness- Primary Rapidly progressive dementia (CMS/HCC) Unsteady gait Abnormality of gait documented in this encounter [facility] HealthcareEvaluation note* Diagnosis Lewy body dementia with behavioral disturbance (HCC)- Primary Dementia with Lewy bodies Other depression 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 Secondary parkinsonism, unspecified secondary Parkinsonism type (HCC) Visual hallucinations Psychophysical visual disturbances [facility] Diagnosis Dermatophytosis of nail- Primary Dystrophic nail Other specified disease of nail Pain around toenail, right foot Pain around toenail, left foot [facility]* Diagnosis Mild neurocognitive disorder- Primary MDD (major depressive disorder), recurrent episode, mild (HCC) (CMS/HCC) Generalized weakness Rapidly progressive dementia (CMS/HCC)- Primary Bilateral primary osteoarthritis of knee Breast cancer screening by mammogram Dizziness Dizziness and giddiness Generalized weakness- Primary Rapidly progressive dementia (CMS/HCC) Unsteady gait Abnormality of gait [facility] Diagnosis Mild neurocognitive disorder- Primary MDD (major depressive disorder), recurrent episode, mild (HCC) (CMS/HCC) Generalized weakness Rapidly progressive dementia (CMS/HCC)- Primary Bilateral primary osteoarthritis of knee Breast cancer screening by mammogram Dizziness Dizziness and giddiness Generalized weakness- Primary Rapidly progressive dementia (CMS/HCC) Unsteady gait Abnormality of gait [facility] Diagnosis Mild neurocognitive disorder- Primary MDD (major depressive disorder), recurrent episode, mild (HCC) (CMS/HCC) Generalized weakness Rapidly progressive dementia (CMS/HCC)- Primary Bilateral primary osteoarthritis of knee Breast cancer screening by mammogram Dizziness Dizziness and giddiness Generalized weakness- Primary Rapidly progressive dementia (CMS/HCC) Unsteady gait Abnormality of gait [facility] Diagnosis Mild neurocognitive disorder- Primary MDD (major depressive disorder), recurrent episode, mild (HCC) (CMS/HCC) Generalized weakness Rapidly progressive dementia (CMS/HCC)- Primary Bilateral primary osteoarthritis of knee Breast cancer screening by mammogram Dizziness Dizziness and giddiness Dermatophytosis of nail- Primary Dystrophic nail Other specified disease of nail Pain around toenail, right foot Pain around toenail, left foot [facility]* Diagnosis Lewy body dementia with psychotic disturbance, unspecified dementia severity (CMS/HCC)- Primary documented [facility]* Diagnosis Mild neurocognitive disorder- Primary MDD (major depressive disorder), recurrent episode, mild (HCC) (CMS/HCC) Generalized weakness Rapidly progressive dementia (CMS/HCC)- Primary Bilateral primary osteoarthritis of knee Breast cancer screening by mammogram Dizziness Dizziness and giddiness Generalized weakness- Primary Rapidly progressive dementia (CMS/HCC) Unsteady gait Abnormality of gait [facility] Author Sridhar Hoffman [facility] May 26, 2023 12:28pm Note Date/Time May 26, 2023 1 2:28pm [facility] [address] [place] [address] Psychiatry H&P Signed Patient: Donnie Bullock MR#: [id number] : 1955 Acct:[id number] Age/Sex: 67 / F Adm Date: 4 Loc: Room: [address] [place] [address] Type: ADM IN Attending Dr: Sridhar Hoffman MD Copies to: MD Remigio Jogre MD~ Date of Service: 05/26/2023 HPI History [...] denied current suicidality Insight: fair Judgment: fair [facility] Medical History (Updated 05/26/23 @ [...] <Electronically signed by Sridhar Hoffman MD> 05/26/23 1229 [facility] Work Phone: Hospital Discharge instructions No data available for this section General Surgery [place] Progress note No data available for this section General Surgery [place] Reason for referral (narrative)* Consultation (Routine) - Pending Review Specialty Diagnoses / Procedures Referred By Linda crocker Referred To Contact Urology Diagnoses Recurrent UTI Procedures [place] OFFICE/OUTPATIENT NEW HIGH MDM 60 MINUTES Remigio Simpson MD [address] [place] [address] Amor Arcos MD [address] [place] [address] Referral ID Status Reason Start Date Expiration Date Visits Requested Visits Authorized [id number] Pending Review Specialty Services Required 06/29/2023 12/26/2023 1 1 Kurtz for visit Narrative* Rehabilitation - Outpatient (Routine) - Authorized Specialty Diagnoses / Procedures Referred By Linda crocker Referred To Contact Physical Therapy Diagnoses Generalized weakness Rapidly progressive dementia (CMS/HCC) Unsteady gait Procedures [place] OFFICE/OUTPATIENT NEW HIGH MDM 60 MINUTES Remigio Simpson MD [address] [place] [address] Phone: tel: fax: Alexandria Mcnair, PT [address] [place] [address] Phone: tel: fax: Referral ID Status Reason Start Date Expiration Date Visits Requested Visits Authorized [id number] Authorized Consult and Treat 03/09/2024 09/05/2024 25 25 [facility] HealthcareReason for visit Narrative* Rehabilitation - Outpatient (Routine) - Authorized Specialty Diagnoses / Procedures Referred By Linda crocker Referred To Contact Physical Therapy Diagnoses Generalized weakness Rapidly progressive dementia (CMS/HCC) Unsteady gait Procedures [place] OFFICE/OUTPATIENT NEW HIGH MDM 60 MINUTES Remigio Simpson MD [address] [place] [address] Phone: tel: fax: Alexandria Mcnair, PT [address] [place] [place] [address] Phone: tel: fax: Referral ID Status Reason Start Date Expiration Date Visits Requested Visits Authorized [id number] Authorized Consult and Treat 03/09/2024 05/16/2024 25 25 [facility] Healthcare Summary Purpose Family History Relationship Condition [...] Referral Specialty Diagnoses / Procedures Referred By Linda crocker Referred To Contact Diagnoses DALILA (generalized anxiety disorder) (CMS/HCC) Remigio Simpson MD [address] [place] [address] Referral ID Status Reason Start Date Expiration Date V isits Requested Visits Authorized [id number] Pending Review 02/17/2024 08/15/2024 1 1 Additional Source Comments INFORMATION SOURCE (unrecogn ized section and content) DATE CREATED AUTHOR 09/17/2022 [facility] DATE CREATED AUTHOR AUTHOR'S ORGANIZ ATION 02/17/[address] [facility] DATE CREATED AUTHOR AUTHOR'S ORGANIZ ATION 05/26/2023 [facility] DATE CREATED AUTHOR AUTHOR'S ORGANIZ ATION 03/19/2024 [facility] DATE CREATED AUTHOR AUTHOR'S ORGANIZ ATION 05/03/2024 [facility] DATE CREATED AUTHOR AUTHOR'S ORGANIZ ATION 05/06/2024 [facility] EPIC Patient Care team [...] Attending Provider Active Start: May 25, 2023 Electrolysis Engineer Relationship Specialty Start Date End Date Remigio Simpson MD PCP - General Family Medicine 05/17/22 Electrolysis Engineer Relationship Specialty Start Date End Date Remigio Simpson MD PCP - General Family Medicine 05/17/22 Electrolysis Engineer Relationship Specialty Start Date End Date Remigio Simpson MD PCP - General Family Medicine 05/17/22 Team Status: Active Member Role Status Dates Remigio Simpson MD Primary Care Provider Active S tart: September 14, 2023 Good Garcia DO Emergency Provider Active St art: September 14, 2023 Sridhar Hoffman MD Admit Provider, Attending Provider Active Start: September 14, 2023 Electrolysis Engineer Relationship Specialty Start Date End Date Remigio Simpson MD [address] [place] [address] PCP - General Family Medicine 07/19/23 Electrolysis Engineer Relationship Specialty Start Date End Date Remigio Simpson MD [address] [place] [address] PCP - General Family Medicine 07/19/23 Electrolysis Engineer Relationship Specialty Start Date End Date Remigio Simpson MD [address] [place] [address] PCP - General Family Medicine 07/19/23 Electrolysis Engineer Relationship Specialty Start Date End Date Remigio Simpson MD [address] [place] [address] PCP - General Family Medicine 07/19/23 Electrolysis Engineer Relationship Specialty Start Date End Date Remigio Simpson MD [address] [place] [address] PCP - General Family Medicine 07/19/23 Electrolysis Engineer Relationship Specialty Start Date End Date Remigio Simpson MD [address] [place] [address] PCP - General Family Medicine 07/19/23 Rei Cobos DO [address] [place] [address] [id number] Referring Physician Neurology 03/17/24 Electrolysis Engineer Relationship Specialty Start Date End Date Remigio Simpson MD [address] [place] [address] PCP - General Family Medicine 07/19/23 Rei Cobos DO [address] [place] [address] [phone] Referring Physician Neurology 03/17/24 Electrolysis Engineer Relationship Specialty Start Date End Date Remigio Simpson MD [address] [place] [phone] PCP - General Family Medicine 07/19/23 Rei Cobos DO [address] [place] [address] [phone] Referring Physician Neurology 03/17/24 Electrolysis Engineer Relationship Specialty Start Date End Date Remigio Simpson MD [address] [place] [address] PCP - General Family Medicine 07/19/23 Rei Cobos DO [address] [address] Referring Physician Neurology 03/17/24 Electrolysis Engineer Relationship Specialty Start Date End Date Remigio Simpson MD [address] [place] [phone] PCP - General Family Medicine 07/19/23 Rei Cobos DO [address] [place] [address] Referring Physician Neurology 03/17/24 Electrolysis Engineer Relationship Specialty Start Date End Date Remigio Simpson MD [address] [place] [phone] PCP - General Family Medicine 07/19/23 Rei Cobos DO [address] [address] Referring Physician Neurology 03/17/24 Electrolysis Engineer Relationship Specialty Start Date End Date Remigio Simpson MD [address] [place] [phone] PCP - General Family Medicine 07/19/23 Rei Cobos DO [address] [address] Referring Physician Neurology 03/17/24 Electrolysis Engineer Relationship Specialty Start Date End Date Remigio Simpson MD [address] [place] [address] PCP - General Family Medicine 07/19/23 Rei Cobos DO [address] [address] Referring Physician Neurology 03/17/24 Electrolysis Engineer Relationship Specialty Start Date End Date Remigio Simpson MD [address] [place] [phone] PCP - General Family Medicine 07/19/23 Rei Cobos DO [address] [place] [address] Referring Physician Neurology 03/17/24 Electrolysis Engineer Relationship Specialty Start Date End Date Remigio Simpson MD [address] [place] [address] PCP - General Family Medicine 07/19/23 Rei Cobos DO [address] [address] Referring Physician Neurology 03/17/24 Electrolysis Engineer Relationship Specialty Start Date End Date Remigio Simpson MD [address] [place] [address] PCP - General Family Medicine 07/19/23 Rei Cobos DO [address] [address] Referring Physician Neurology 03/17/24 Electrolysis Engineer Relationship Specialty Start Date End Date Remigio Simpson MD [address] [place] [address] PCP - General Family Medicine 07/19/23 Rei Cobos DO [address] [place] [address] Referring Physician Neurology 03/17/24 Electrolysis Engineer Relationship Specialty Start Date End Date Remigio Simpson MD [address] [place] [address] PCP - General Family Medicine 07/19/23 Rei Cobos DO [address] [place] [address] Referring Physician Neurology 03/17/24 Electrolysis Engineer Relationship Specialty Start Date End Date Remigio Simpson MD [address] [place] [address] PCP - General Family Medicine 07/19/23 Electrolysis Engineer Relationship Specialty Start Date End Date Remigio Simpson MD [address] [place] [address] PCP - General Family Medicine 07/19/23 Electrolysis Engineer Relationship Specialty Start Date End Date Remigio Simpson MD [address] [place] [address] PCP - General Family Medicine 07/19/23 Rei Cobos DO [address] [phone] Referring Physician Neurology 03/17/24 Electrolysis Engineer Relationship Specialty Start Date End Date Remigio Simpson MD [address] [place] [address] PCP - General Family Medicine 07/19/23 Goals (unrecognized section and content) Goals may be documented in a n alternate section Source Comments (unrecognize d section and content) In the event this informatio n is protected by the Federal Confidentiality of Alcohol and Drug Abuse Patient Records regulations: The Federal rules restrict any use of the information to criminally investigate or prosecute any alcohol or drug abuse patient.[facility] the event this information is protected by the Federal Confidentiality of Alcohol and Drug Abuse Patient Records regulations: The Federal rules restrict any use of the information to criminally investigate or prosecute any alcohol or drug abuse patient.[facility] the event this information is protected by the Federal Confidentiality of Alcohol and Drug Abuse Patient Records regulations: The Federal rules restrict any use of the information to criminally investigate or prosecute any alcohol or drug abuse patient.[facility] the event this information is protected by the Federal Confidentiality of Alcohol and Drug Abuse Patient Records regulations: The Federal rules restrict any use of the information to criminally investigate or prosecute any alcohol or drug abuse patient.[facility] the event this information is protected by the Federal Confidentiality of Alcohol and Drug Abuse Patient Records regulations: The Federal rules restrict any use of the information to criminally investigate or prosecute any alcohol or drug abuse patient.[facility] the event this information is protected by the Federal Confidentiality of Alcohol and Drug Abuse Patient Records regulations: The Federal rules restrict any use of the information to criminally investigate or prosecute any alcohol or drug abuse patient.[facility] Reason for Visit (unrecogniz ed section and content) Reason Comments New Patient Evaluation Reason Comments Nail care Donnie Bullock is a 67 y.o. female who presents for Nail care. Reason Comments Medication Follow-up Reason Comments Fungus Pt is here today wit h her spouse for 3mo FUV nail fungus, they will sometimes bother her when shoes are onSS:9 Reason Comments Patient Question Patient Update Spouse requesting to speak with nurse FOR RECORDS PERTAINING TO PATIENTS WHO ARE [...] BE BASED ON THE PRIMARY CLINICAL RECORDS. [facility]. provides no warranty or guarantee of the accuracy or completeness of information in this document.
[2024-05-26 12:31] LABS: Bilirubin Urine NEGATIVE (NEGATIVE); Blood Urine TRACE-I (NEGATIVE); Clarity Urine CLEAR (CLEAR); Color Urine YELLOW (YELLOW); Glucose Urine UA NEGATIVE (NEGATIVE); Ketones Urine TRACE mg/dL (NEGATIVE); Leukocyte Esterase Urine NEGATIVE (NEGATIVE); Nitrite Urine NEGATIVE (NEGATIVE); Protein Urine NEGATIVE (NEG/TRACE); Specific Gravity Urine >=1.030 (1.005-1.025); Urobilinogen Urine 0.2 EU/dL (0.2-1.0)
[2024-05-26 12:34] LABS: Urine Microscopic Indicated YES
[2024-05-26 12:43] LABS: RBC Urine 0-2 #/HPF (0-2); WBC Urine 0-2 #/HPF (NONE SEEN)
[2024-05-26 12:44] LABS: Bacteria Urine TRACE #/HPF (NONE SEEN); Cast Seen? SEEN #/LPF (NONE SEEN); Crystals Seen? None Seen #/HPF (None Seen); Hyaline Casts Urine RARE; Mucus Urine TRACE (NONE SEEN); Squamous Epithelial Cell Urine FEW #/LPF (NONE/RARE); Urine Culture Indicated ALREADY ORDERED
== END 2024-05-26 12:14 | disposition home or self-care (01) ==
LOC: LAB 12:13
PROVIDERS: PCP Family Medicine; Visit Provider Family Medicine
DX: R30.0 Dysuria (principal)
CPT/HCPCS: 81001; 87086

== ENCOUNTER 2024-06-05 13:19 | Emergency (ER) | payer MEDICARE, OTHER, SELFPAY ==
[2024-06-05 13:29] VITALS: BP 156/77; PULSE 76; TEMP 36.9; O2SAT 98; BMI 26.5
--- OUTSIDE RECORDS SUMMARY | 2024-06-05 13:36 | XMS_ITS | CCD ---
Author Organization [facility] CliniSyin Care Team Providers Care Cpc Name Role Phone CALVIN, DR REMIGIO Richardson [...] NADERER, REMIGIO Primary Care Physician AVNI, Amor Plolock Attending Unavailable NADERER, REMIGIO Referring Unavailable NILL, [...] Provider MD Remigio Simpson Primary Care Provider [phone] DO Good Garcia Emergency Provider [phone] Dalton, MD Sridhar Admit Provider [phone] MD Dalton Sridhar Attending Provider [phone] Remigio Simpson MD Primary Care Provider Sridhar Hoffman Attending Unavailable Dalton, Sridhar Admitting Unavailable Naderer, Remigio Primary Care Unavailable Rei Cobos Attending Unavailab le Chandrika, Soophwillem M Admitting Unavailab le Naderer, Remigio Primary Care Unavailable Lionel Still Attending Unavailab le Cheko, Lionel Admitting Unavailab le Naderer, Remigio Primary Care Unavailable Lionel Still Attending Unavailab Remigio Douglas Primary Care Unavailable Dalton, Sridhar Admitting Unavailable Rei Cobos DO Unavailable [phone] Unavailable Primary Care Provider Unavailabl e REMIGIO SIMPSON Attending Unavailable SHAIKH SALCEDO Attending Unavailable RUSHER, HERSON Richardson Attending Unavailable CHANDRIKA, REI Attending Unavailable CHANDRIKA, REI Referring Unavailable DENBESTENMONICA Attending Unavailable CHANDRIKA, REI Referring Unavailable CHANDRIKA, REI Attending Unavailable RUSHER, HERSON Richardson Attending Unavailable NADERER, REMIGIO Attending Unavailable CHANDRIKA, REI Attending Unavailable RUSHER, HERSON Richardson Attending Unavailable FLORALEXANDRIA GAMBLE Attending Unavailable NADERER, REMIGIO Referring Unavailable MILLERDENEEN Attending Unavailable NADERER, REMIGIO Referring Unavailable CHANDRIKA, REI Attending Unavailable FLORALEXANDRIA GMABLE Attending Unavailable NADERER, REMIGIO Referring Unavailable TATTERSALLBETI [...] MILLERDENEEN Attending Unavailable NADERER, REMIGIO Referring Unavailable CHANDRIKA, CHRISTOPHER Attending Unavailable SERA KILLIAN Attending Unavailable Allergies Allergy Classification Reported Allergen(s) Allergy [...] tablet Indications: DALILA (generalized anxiety disorder) (CMS/HCC) Take 1 tablet (2 mg) by mouth 4 (four) times a day as needed for anxiety for up to 10 days 40 tablet 02/17/2024 Active docusate sodium 50 mg / sennosides, correction 8.6 mg oral tablet (20 sources) take 1 tablet by mouth three times daily SENEXON-S 8.6-50 mg per tablet Take 1 tablet by mouth three times a day. Active take 1 tablet by mouth once nimo y senna-docusate sodium (Senokot-S) 8.6-50 MG tablet Take 1 tablet by mouth Daily Active donepezil hydrochloride 5 mg oral tablet (5 sources) Start: 05-22-2024 take 1 tablet by mouth once daily after breakfast donepezil (ARICEPT) 5 mg tablet Take 1 tablet by mouth daily after breakfast. 30 tablet 3 05/22/2024 Active haloperidol 1 mg oral tablet (20 sources) Typical Antipsychotic Start: 01-11-2024 End: 05-29-2024 haloperidol (Haldol) 1 MG tablet Indications: Rapidly progressive dementia (CMS/HCC) TAKE 1/2 TABLET (0.5MG) IN THE MORNING AND TAKE 1 TABLET (1MG) AT SUPPER 30 tablet 1 01/11/2024 05/29/2024 Discontinued (Side effects) Start: 09-22-2023 take 0.5 mg by mouth [...] oral tablet (20 sources) Antihistamine Start: 02-14-2024 End: 05-29-2024 take 1 tablet by mouth four times daily as needed for anxiety hydrOXYzine HCl (Atarax) 25 MG tablet Indications: DALILA (generalized anxiety disorder) (CMS/HCC) TAKE 1 TABLET (25 MG) BY MOUTH 4 (FOUR) TIMES A DAY NEEDED FOR ANXIETY 360 tablet 2 02/14/2024 05/29/2024 Discontinued (Side effects) Start: 09-14-2023 take 1 tablet by palmer [...] 12:00am Start: 09-14-2023 take 1 capsule by [facility] twice daily Sennosides (Senna) 8.6 mg capsule [...] bedtime Risperidone Discontinued 0.25 MG PO Bedtime 30 June 08, 2023 1:00am September 14, 2023 [...] sources) Generalized anxiety disorder; Translations: [Anxiety] Onset: 01-04-2023 Chronic Blindness and vision defects (9 sources) Visual hallucinations; Translations: [Visual hallucinations] Onset: [...] (3 sources) Dysuria; Translations: [Dysuria] 06-30-2023 Episodic Miscellaneous mental health disorders (20 sources) [...] 12-24-2023 Chronic Other aftercare (1 source) 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; Translations: [OTH [facility]PC CURRENT DRUG THERAPY] Onset: 3 Episodic Other [...] 4 07-19-2023 Chronic Other nervous system disorders (9 sources) Secondary parkinsonism; 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, unspecified] Onset: 4 04-19-2024 Chronic Other nutritional; endocrine; and metabolic disorders [...] [Nail dystrophy] 02-02-2024 Episodic Residual codes; unclassified (9 sources) REM sleep behavior disorder; Translations: [REM [...] Onset: 09-16-2022 12-31-2022 Episodic Malaise and fatigue (20 sources) Other fatigue; Translations: [Asthenia] Onset: 09-16-2022 06-09-2023 Episodic Other aftercare (20 sources) Patient encounter status; Translations: [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] Onset: 05-11-2023 05-11-2023 Episodic Other aftercare (20 sources) Long-term current use of drug therapy; Translations: [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] Onset: 05-11-2023 05-11-2023 Episodic [...] and mobility] Onset: 09-07-2023 09-07-2023 Episodic Other nervous system disorders (20 sources) Abnormal gait; Translations: [Unsteadiness on feet] Onset: 12-24-2023 12-24-2023 Episodic Other non-traumatic joint disorders (4 sources) [...] Test Name Value Interpretation Reference Range Facility [facility] 05-26-2024 [facility] Telephone (ON LICENSE OF [facility]) DONNIE BULLOCK ([id number]) 1955 F Date Time Provider Department 05/26/24 [facility] During your visit today, we recorded the following information about you: Sera Killian APRN.CNP 05/26/2024 6:35 PM Signed Call to spouse he states her VH are worse, she recently saw the devil . He found her walking around with a piece of paper stating she wanted to live . She denied to him she wanted to . She is never alone He notes she has tremors and said he considered taking her to the ED. She had UA, awaiting culture. He finds her anxious. She continues the slow taper of Haldol and takes 0.5 mg at HS. I requested he provide me with the MRI brain disc. She is to see her local Neurologist on Wednesday05/29/24. Will follow up next week. KENIA Reyes Shauntay 05/29/2024 12:16 PM Signed Spouse, Vimal SANDERS on [facility] Nurse Line on 05/26 @2:07P. Pt name and verified 1955. Vimal states pt is shaking bad and really anxious. Please call back at . Thank you, Ivette Ferreira RN 05/29/2024 1:46 PM Signed Spoke with Vimal, the patient's . Donnie was seen by her local neurologist today. Recommendations: - Continue Haldol 0.5 mg daily at bedtime until 06/08/24 then, stop. - Decrease Hydroxyzine from twice daily to once daily for a week then, stop. - Continue Aricept(Donepezil) 5 mg once daily - Follow up with local neurologist 06/30/24. - UA results are still pending. Culture results may be available this afternoon. PCP is monitoring and will start antibiotic if positive. - MRI brain disc will be picked tomorrow from [facility] and Vimal will mail it to Sera Killian APRN, CNP. - Vimal was advised to keep our office updated. Ivette Kerr RN Allergies As of Date: 05/26/2024 (No Known Allergies) Date Reviewed: 04/19/2024 Reviewed by: Francie Lira RN - Fully Assessed Reason for Visit: Called Back [4338] Patient Question [7964] Cmt: Spouse requesting a return phone call Prescriptions as of 05/30/2024 - donepezil (ARICEPT) 5 mg tablet Take 1 tablet by mouth daily after breakfast. - haloperidol (HALDOL) 1 mg tablet Take [...] a day. 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] 04/19/2024 Visual hallucinations [R44.1] 04/19/2024 Encounter Status:Closed by SERA KILLIAN on 05/30/24 Normal [facility] UA (CLEAN/CATCH) MICROSC OPIC IF INDICATEon 05-26-2024 BILIRUBIN URINE Negative NEGATIVE [facility] BLOOD URINE TRACE-I NEGATIVE [facility] Clarity (U) CLEAR CLEAR [facility] Color (U) YELLOW YELLOW [facility] GLUCOSE URINE UA Negative NEGATIVE mg/dL [facility] Interpretation and review of laboratory results Abnormal [facility] Ketones Ql (U) TRACE Abnormal NEGATIVE mg/dL [facility] Leukocyte esterase Test strip Ql (U) Negative NEGATIVE [facility] NITRITE URINE Negative NEGATIVE [facility] pH (U) 6.0 [pH] 5.0 - 9.0 [facility] PROTEIN URINE Negative NEG/TRACE mg/dL [facility] SPECIFIC GRAVITY URINE >=1.030 Abnormal 1.005 - 1.025 [facility] URINE MICROSCOPIC INDICATED YES [facility] UROBILINOGEN URINE 0.2 EU/dL 0.2 - 1.0 EU/dL [facility] CNPNon 05-15-2024 CNPN Telephone (ON LICENSE OF [facility]) KOBEDONNIE ([id number]) 1955 F Date Time Provider Department 05/15/24 SERA KILLIAN During your visit today, we recorded the following information about you: Rose Baldwin 05/15/2024 3:22 PM Signed Spouse, Carlos SANDERS on [facility] Nurse Line on 05/15 @2:59P. Pt name and verified 1955. Carlos is requesting to speak with nurse re: pt symptoms. Hallucinations are getting worse. Please call back at . Thank you, Ivette Ferreira, JOSÉ ANTONIO 05/15/2024 5:28 PM Signed Voice message left for Vimal that someone from our office will attempt to reach out to him on the next business day to address his concerns. JOSÉ ANTONIO Hernandez Terri, JOSÉ ANTONIO 05/16/2024 1:58 PM Signed Second Attempt Voice message left for Vimal that someone from our office will attempt to reach out to him on the next business day, 05/18/2024. Advised that he may send a [employer] Chart Message. JOSÉ ANTONIO Hernandez Terri, RN 05/18/2024 4:23 PM Signed Spoke with Vimal, the patient's . Currently, [...] a voice message on Vimal's cell phone. JOSÉ ANTONIO Hernandez Terri, RN 05/19/2024 4:43 PM Signed Spoke with Vimal, the patient's . He stated that Donnie's visual hallucinations do not scare her or cause agitation. There are no safety concerns. His main concern is the increase of the frequency of the hallucinations. He will keep Donnie on the current dose of Haldol until Vernon Killian APRN, ELIANE reviews and makes her recommendation. Donnie does have a follow up with local neurologist on 05/29/2024 and a follow up on 07/27/2024 with Sera. JOSÉ ANTONIO Hernandez Christine F, APRN.ELIANE 05/22/2024 2:11 PM Signed OG call to spouse, discussion held. We agreed to continue the taper of Haldol as originally ordered. And add Donepezil (Aricept) 5 mg daily after breakfast. Sera Killian APRN.ELIANE Allergies As of Date: 05/15/2024 (No Known Allergies) Date Reviewed: 04/19/2024 Reviewed by: Francie Lira RN - Fully Assessed Reason for Visit: Patient Question [1127] Patient Update [1234] Cmt: Spouse requesting to speak with nurse Prescriptions as of 05/22/2024 - donepezil (ARICEPT) 5 mg tablet Take 1 tablet by mouth daily after breakfast. - haloperidol (HALDOL) 1 mg tablet Take [...] a day. 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] 04/19/2024 Visual hallucinations [R44.1] 04/19/2024 Encounter Status:Closed by SERA KILLIAN on 05/22/24 [facility] Jessie 04-25-2024 ELIANEN Telephone ([facility]) KOBEDONNIE ([id number]) 1955 F Date Time Provider Department 04/25/24 SERA KILLIAN During your visit today, we recorded the following information about you: Sera Killian APRN.CNP 04/25/2024 5:05 PM Signed Confidential email correspondence sent to spouse re: updated Haldol taper dosing as follows: Reduce to Haldol 1 mg at bedtime for two weeks, then, Reduce to Haldol 0.5 mg (1/2 of 1mg tab) at bedtime for two weeks - then stop altogether. Sera Killian APRN.CNP Allergies As of Date: 04/25/2024 (No Known Allergies) Date Reviewed: 04/19/2024 Reviewed by: Francie Lira, RN - Fully Assessed Reason for Visit: [...] Encounter Status:Closed by SERA KILLIAN on 04/25/24 [facility] REMIGIO BULLOCKIA Dylan ([id number]) 1955 F Date Time Provider Department 04/25/24 SERA KILLIAN ON LICENSE OF [facility] During your visit today, we recorded the [...] Encounter Status:Closed by FRANCIE LIRA on 04/26/24 [facility] Jessie 04-20-2024 MARKEL Telephone (ON LICENSE OF [facility]) KOBEDONNIE Richardson ([id number]) 1955 F Date Time Provider Department 04/20/24 SERA KILLIAN ON LICENSE OF [facility] During your visit today, we recorded the [...] 04/19/2024 Encounter Status:Closed by FRANCIE LIRA on 04/21/24 [facility] CNOVon 04-19-2024 CNOV Office Visit (ON LICENSE OF [facility] ) DONNIE BULLOCK ([id number]) 1955 F Date Time Provider Department 04/19/24 12:30 PM SERA KILLIAN During your visit today, we recorded the following information about you: Pulse Blood pressure Weight 76/minute 129/83 73.8 kg Sera Killian, GLUING CREW LEADER.RIGGING ENGINEER 04/19/2024 5:34 PM Signed Date: April 19, 2024 DONNIE BULLOCK [address] [place] [address] [facility] Brain [facility] INITIAL PATIENT EVALUATION Reason for Consult: Lewy Body Dementia-here for a 2nd opinion I had the pleasure of seeing this 68 year old year old female at the [facility]. The patient is referred by SELF. Patient [...] by neurology provider Dr. Rei Cobos at [facility], followed since August 2023. No cognitive testing on file. Formerly followed by psychiatry for LBD/anxiety. Last seen in September 2023. Care was established following her inpatient behavioral health hospitalization in April 2023/May 2023. No family history of dementia or Parkinson's Disease. Per spouse and son report: -Lumbar puncture at [facility] September 30, 2023. Work up completed for possible rapidly progressing dementia. -Prior brain imaging (MRI/CT at outside medical systems). -Hallucinations daily (asks her spouse when is Vimal going to come home? ; sees babies; puppies, squirrel on spouse's shoulder, gives sign of peace to people she sees in her home). -Recently discharged from [facility] services 4 months ago. Also previously [...] wanting to live, she was admitted to [facility] health for further evaluation. Mobility changes at this [...] spouse Agencies involved: none currently-previously followed by [facility] Special Concerns: Hallucinations/Delusi [...] Financial POA: Spouse will verify-information reviewed Consult [facility] HOME CARE MANAGER RN if not completed: role introduced, reviewed national organizations offering support, provided co (more content not included)... Normal [facility] UA (CLEAN/CATCH) MICROSC OPIC IF INDICATEon 04-12-2024 BILIRUBIN URINE Negative NEGATIVE [facility] BLOOD URINE Negative NEGATIVE [facility] Clarity (U) CLEAR CLEAR [facility] Color (U) DK. YELLOW YELLOW [facility] GLUCOSE URINE UA Negative NEGATIVE mg/dL [facility] Interpretation and review of laboratory results Abnormal [facility] Ketones Ql (U) 15 mg/dL Abnormal NEGATIVE [facility] Leukocyte esterase Test strip Ql (U) Negative NEGATIVE [facility] NITRITE URINE Negative NEGATIVE [facility] pH (U) 5.5 [pH] 5.0 - 9.0 [facility] PROTEIN URINE TRACE NEG/TRACE mg/dL [facility] SPECIFIC GRAVITY URINE >=1.030 Abnormal 1.005 - 1.025 [facility] URINE MICROSCOPIC INDICATED NO [facility] UROBILINOGEN URINE 0.2 EU/dL 0.2 - 1.0 EU/dL [facility] Aerobic Cultureon 09-30-2023 Aerobic Culture Comment tube [...] RESISTANT TO ALL B-LACTAM DRUGS. PERFORMED BY: [place] [phone] PATHOLOGIST WELDER OPERATOR ELE SPRING M.D. Normal [facility] Comment on above: Performed By: #### C SFCCDIFF, CSF GLU, AERC, GS, CSF TP, CSF PCR PANEL #### [facility] [address] [place], [place] [id number] [facility] Autoimmune Encephalitis Prof on 09-30-2023 Autoimmune Encephalitis Prof Normal [facility] Comment on above: Result Comment: See report. Scanned copy available in EMR. PERFORMED BY: [place] [address] PATHOLOGIST WELDER OPERATOR ELE SPRING M.D. Performed By: #### C SFCCDIFF, CSF GLU, AERC, GS, CSF TP, CSF PCR PANEL #### [facility] [address] [place], [place] [id number] [facility] CSF Creutzfeldt-Loy Diseas josr 09-30-2023 Creutzfeldt-Loy Disease Normal Negative [facility] Comment on above: Order Comment: Comme nt tube 3 Result Comment: See report. Scanned copy available in EMR. Performed By: #### C SFCCDIFF, CSF GLU, AERC, GS, CSF TP, CSF PCR PANEL #### [facility] [address] [place] [address] CSF Specimen Status Normal . [facility] Comment on above: Order Comment: Comme nt tube 3 Result Comment: Jacques howard lab report sent via fax. Performed at: [facility] Prion Disease Path Surv 2084 [facility] Room [address] [place] [address] [phone] Acid Tester: Christy Fernandez PhD, Phone: [phone] PERFORMED BY: [place] [address] PATHOLOGIST WELDER OPERATOR ELE SPRING M.D. Performed By: #### C SFCCDIFF, CSF GLU, AERC, GS, CSF TP, CSF PCR PANEL #### [place] [address] [place] CSF PCR Panelon 09-30-2023 CSF PCR Panel [...] Varicella zoster virus Not detected PERFORMED BY: [place] [address] PATHOLOGIST WELDER OPERATOR ELE SPRING M.D. Normal [facility] Comment on above: Performed By: #### C SFCCDIFF, CSF GLU, AERC, GS, CSF TP, CSF PCR PANEL #### [place] [address] [place] Cell Count Differential,CSFo n 09-30-2023 Appearance, CSF Cloudy Critically abnormal Clear [facility] Comment on above: Order Comment: Comme nt tube 1 Performed By: #### C SFCCDIFF, CSF GLU, AERC, GS, CSF TP, CSF PCR PANEL #### [place] [id number] [place] Color, CSF [place] Critically abnormal Colorless [facility] Comment on above: Order Comment: Comme nt tube 1 Performed By: #### C SFCCDIFF, CSF GLU, AERC, GS, CSF TP, CSF PCR PANEL #### [place] [address] [place] CSF Supernatant Color Colorless Normal Colorless [facility] Comment on above: Order Comment: Comme nt tube 1 Performed By: #### C SFCCDIFF, CSF GLU, AERC, GS, CSF TP, CSF PCR PANEL #### [address] CSF Volume, Total 11.7 mL Normal [facility] Comment on above: Order Comment: Comme nt tube 1 Performed By: #### C SFCCDIFF, CSF GLU, AERC, GS, CSF TP, CSF PCR PANEL #### [address] Lymphocytes, CSF 17 Normal [facility] Comment on above: Order Comment: Comme nt tube 1 Result Comment: The reference interval and other method performance specifications have not been established for this body fluid. The test result must be integrated into the clinical context for interpretation. Performed By: #### C SFCCDIFF, CSF GLU, AERC, GS, CSF TP, CSF PCR PANEL #### [address] Monocytes, CSF 4 Normal [facility] Comment on above: Order Comment: Comme nt tube 1 Result Comment: The reference interval and other method performance specifications have not been established for this body fluid. The test result must be integrated into the clinical context for interpretation. Performed By: #### C SFCCDIFF, CSF GLU, AERC, GS, CSF TP, CSF PCR PANEL #### [address] Neutrophils, CSF 29 Normal [facility] Comment on above: Order Comment: Comme nt tube 1 Result Comment: The reference interval and other method performance specifications have not been established for this body fluid. The test result must be integrated into the clinical context for interpretation. Performed By: #### C SFCCDIFF, CSF GLU, AERC, GS, CSF TP, CSF PCR PANEL #### [address] RBC, CSF 3534 Normal [facility] Comment on above: Order Comment: Comme nt tube 1 Result Comment: The reference interval and other method performance specifications have not been established for this body fluid. The test result must be integrated into the clinical context for interpretation. Performed By: #### C SFCCDIFF, CSF GLU, AERC, GS, CSF TP, CSF PCR PANEL #### [address] TNC, CSF 2 /uL Normal 0-5 [facility] Comment on above: Order Comment: Comme nt tube 1 Performed By: #### C SFCCDIFF, CSF GLU, AERC, GS, CSF TP, CSF PCR PANEL #### [address] Total Count, CSF 50 Normal [facility] Comment on above: Order Comment: Comme nt tube 1 Performed By: #### C SFCCDIFF, CSF GLU, AERC, GS, CSF TP, CSF PCR PANEL #### [address] Tube Number Tested, CSF Tube Number: 1 Normal [facility] Comment on above: Order Comment: Comme nt tube 1 Result Comment: PERF ORMED BY: [place] [address] PATHOLOGIST WELDER OPERATOR ELE SPRING M.D. Performed By: #### C SFCCDIFF, CSF GLU, AERC, GS, CSF TP, CSF PCR PANEL #### [address] Cell Count Differential,CSF #2on 09-30-2023 Appearance, CSF Clear Normal Clear [facility] Comment on above: Order Comment: Comme nt tube 4 Performed By: #### U HCG, URDS #### [place] [address] [place] Color, CSF Colorless Normal Colorless [facility] Comment on above: Order Comment: Comme nt tube 4 Performed By: #### U HCG, URDS #### [address] CSF Supernatant Color Colorless Normal Colorless [facility] Comment on above: Order Comment: Comme nt tube 4 Performed By: #### U HCG, URDS #### [address] CSF Volume, Total 11.7 mL Normal [facility] Comment on above: Order Comment: Comme nt tube 4 Performed By: #### U HCG, URDS #### [facility] [address] [place] [address] Lymphocytes, CSF 2 Normal [facility] Comment on above: Order Comment: Comme nt tube 4 Result Comment: The reference interval and other method performance specifications have not been established for this body fluid. The test result must be integrated into the clinical context for interpretation. Performed By: #### U HCG, URDS #### [facility] [address] [place] [address] Monocytes, CSF 2 Normal [facility] Comment on above: Order Comment: Comme nt tube 4 Result Comment: The reference interval and other method performance specifications have not been established for this body fluid. The test result must be integrated into the clinical context for interpretation. Performed By: #### U HCG, URDS #### [address] Neutrophils, CSF 4 Normal [facility] Comment on above: Order Comment: Comme nt tube 4 Result Comment: The reference interval and other method performance specifications have not been established for this body fluid. The test result must be integrated into the clinical context for interpretation. Performed By: #### U HCG, URDS #### [address] RBC, CSF 130 /uL Normal [facility] Comment on above: Order Comment: Comme nt tube 4 Result Comment: The reference interval and other method performance specifications have not been established for this body fluid. The test result must be integrated into the clinical context for interpretation. Performed By: #### U HCG, URDS #### [facility] [address] [place] [address] TNC, CSF 1 /uL Normal 0-5 [facility] Comment on above: Order Comment: Comme nt tube 4 Performed By: #### U HCG, URDS #### [facility] [address] [place] [address] Total Count, CSF 8 Normal [facility] Comment on above: Order Comment: Comme nt tube 4 Performed By: #### U HCG, URDS #### [place] [address] [place] Tube Number Tested, CSF Tube Number: 4 Normal [facility] Comment on above: Order Comment: Comme nt tube 4 Result Comment: PERF ORMED BY: [place] [address] PATHOLOGIST WELDER OPERATOR ELE SPRING M.D. Performed By: #### U HCG, URDS #### [address] Glucose, Spinal Fluidon 09-14 Glucose, Spinal Fluid 63 mg/dL Normal 40-70 [facility] Comment on above: Order Comment: Comme nt tube 3 Performed By: #### C SFCCDIFF, CSF GLU, AERC, GS, CSF TP, CSF PCR PANEL #### [address] Gram Stainon 09-30-2023 Microscopic observation Gram stain Nom (Unsp spec) Comment tube 2 aerobic and anaerobic Gram Stain Result No Bacteria Seen No White Blood Cells Seen PERFORMED BY: [place] [address] PATHOLOGIST WELDER OPERATOR ELE SPRING M.D. Normal [facility] Comment on above: Performed By: #### C SFCCDIFF, CSF GLU, AERC, GS, CSF TP, CSF PCR PANEL #### [address] IR guided lumbar puncture LP on 09-30-2023 IR guided lumbar puncture LP [facility] [place] [address] [place] [address] Interventional Radiology Rpt Signed Patient: Donnie Bullock MR#: [id number] [birth year] : 1955 Acct:[id number] Age/Sex: 67 / F ADM Date: 09/30/23 Loc: XD Room: Type: [facility] Attending Dr: Rei Cobos DO Copies to: Rei Cobos DO Ordering Provider: Rei Cobos DO Date of Service: 09/30/23 IR/IR guided lumbar puncture LP: RAPIDLY PROGRESSIVE DEMENTIA IR guided lumbar puncture LP 09/30/2023 7:28 AM SIGNS AND SYMPTOMS: 0.52 [id number] RAPIDLY PROGRESSIVE DEMENTIA INFORMED CONSENT: Reason for [...] Elvis Mae M.D.09/30/2023 1:23 PM Dictation Location: [place] [address] Transcribed By: [facility] 09/30/231322 Dictated By: Elvis Mae II, MD 09/30/231320 Signed By: 09/30/231322 [facility] Arjun 09-30-2023 L Specimen: [id number] Received: 09/30/23 Status: ZACK Larsen Num: [id number] Spec Type: Cytology Subm Dr: Rei Cobos DO Tissues: A CSF (CSF) Procedures: Cyto Prepstain, DIFF QWIK, PAPSTN Age/ Patient Sex Location Account Attending Physician Donnie Bullock 67/F XD [id number] Rei Cobos DO SPEC NUM: [id number] RECD: 09/30/23 STATUS: ZACK LARSEN NUM: [id number] JAY: 09/30/[address]: Rei Cobos DO ENTERED: 09/30/[address]: SPEC TYPE: Cytology DEPT: CNG ENTERED BY: [id number] RECV BY: [id number] ORDERED: Cyto Prepstain, DIFF QWIK, PAPSTN ORDERED: [...] cytospin slides are prepared. (CC/nh) CPT Codes 69022 -------- -------- Specimen: [id number] Received: 09/30/23 Status: ZACK Larsen Num: [id number] Spec Type: Cytology Subm Dr: Rei Cobos DO Tissues: A CSF (CSF) Procedures: Cyto Prepstain, DIFF QWIK, PAPSTN -------- Patient: Remigio Bullockia Dylan [id number] (Continued) -------- Signed (signature on file) Cam[place]-Guille Marie MD 10/03/23 1426 Normal [facility] Total Protein, Spinal Fluido n 09-30-2023 Total Protein, Spinal Fluid 35 mg/dL Normal 15-45 [facility] Comment on above: Order Comment: Comme nt tube 3 Result Comment: PERF ORMED BY: [place] [address] PATHOLOGIST WELDER OPERATOR ELE SPRING M.D. Performed By: #### C SFCCDIFF, CSF GLU, AERC, GS, CSF TP, CSF PCR PANEL #### [facility] [address] [place] [address] [place] Cholesterol [Mass/volume] in Serum or PlasmaOrdered By: Sridhar Hoffman on 09-15-2023 Cholesterol [Mass/Vol] 205 mg/dL High 140-200 [facility] Comment on above: Chol less than 200 m g/dl low riskChol 201-239 mg/dl borderline riskChol 240 mg/dl and greater high risk Result Comment: Chol less than 200 mg/dl low risk Chol 201-239 mg/dl borderline risk Chol 240 mg/dl and greater high risk Performed By: #### U HCG, URDS #### [facility] [address] [place] [address] [place] Cholesterol in LDL Calc [Mas s/Vol]Ordered By: Sridhar Hoffman on 09-15-2023 Cholesterol in LDL [Mass/Vol] 122 mg/dL 0-100 [facility] Comment on above: LDL ATP III CLASSIFI CATIONLDL less than 100 mg/dL OptimalLDL 100-129 mg/dL Near or above optimalLDL 130-159 mg/dL Borderline highLDL 160-189 mg/dL HighLDL greater than 189 mg/dL Very high Cholesterol in VLDL Calc [Ma ss/Vol]Ordered By: Sridhar Hoffman on 09-15-2023 Cholesterol in VLDL [Mass/Vol] 20 mg/dL [facility] ECG 12 lead ECGon 09-15-2023 ECG 12 lead ECG [facility] [place] [address] [place] [address] Electrocardiograph Report Signed Patient: Donnie Bullock MR#: [id number] [birth year] : 1955 Acct:[id number] Age/Sex: 67 / F ADM Date: 09/14/23 Loc: Room: [address] [place] [address] Type: ADM IN Attending Dr: Sridhar Hfofman MD Ordering Provider: Sridhar Hoffman MD Date [...] change was found Confirmed by YOLA ROGERS [facility] ([id number] on 09/15/2023 3:08:00 PM Referred By: Electronically Signed By:DESTINEE ACEVES MD [facility] Transcribed By: MUS Signed By Destinee Aceves MD, FACC 09/15/23 1508 Normal [facility] Lipid Panelon 09-15-2023 LDL Cholesterol,Calculated 122 mg/dL High 0-100 [facility] Comment on above: Result Comment: LDL ATP III CLASSIFICATION LDL less than 100 mg/dL Optimal LDL 100-129 mg/dL Near or above optimal LDL 130-159 mg/dL Borderline high LDL 160-189 mg/dL High LDL greater than 189 mg/dL Very high Performed By: #### U HCG, URDS #### [facility] [address] Triglyceride w/Reflex 103 mg/dL Normal 0-149 [facility] Comment on above: Result Comment: TRIG ATP III CLASSIFICATION TRIG less than 150 mg/dL Normal TRIG 150-199 mg/dL Borderline high TRIG 200-500 mg/dL High TRIG greater than 500 mg/dL Very high Standard traceable to the Center for Disease Conrtrol and Prevention (CDC) test method. Performed By: #### U HCG, URDS #### [facility] [address] VLDL CHOLESTEROL 20 mg/dL Normal [facility] Comment on above: Performed By: #### U HCG, URDS #### [facility] [address] Serum or plasma high density lipoprotein (HDL) cholesterol measurementOrdered By: Sridhar Hoffman on 09-15-2023 Cholesterol in HDL [Mass/Vol] 62 mg/dL Normal 23-92 [facility] Comment on above: HDL CHOL ATP-III CLA SSIFICATION Cardiovascular RiskHDL > or equal to 60 mg/dL LOWHDL < 40 mg/dL HIGH Result Comment: HDL CHOL ATP-III CLASSIFICATION Cardiovascular Risk HDL > or equal to 60 mg/dL LOW HDL < 40 mg/dL HIGH Performed By: #### U HCG, URDS #### [address] Serum or plasma total choles terol/high density lipoprotein (HDL) cholesterol mass ratOrdered By: Sridhar Hoffman on 09-15-2023 Cholesterol.total/Mandie sterol in HDL [Mass ratio] 3.3 {ratio} Normal <5.0 [facility] Comment on above: Performed By: #### U HCG, URDS #### [facility] [address] Thyroid Stim Hormone w/Rflxo n 09-15-2023 Thyroid Stim Hormone w/Rflx 3.99 u[iU]/mL Normal 0.45-5.33 [facility] Comment on above: Performed By: #### U HCG, URDS #### [address] Thyrotropin [Units/volume] i n Serum or PlasmaOrdered By: Sridhar Hoffman on 09-15-2023 TSH Qn 3.99 m[IU]/L 0.45-5.33 [facility] Triglyceride [Mass/volume] i n Serum or PlasmaOrdered By: Sridhar Hoffman on 09-15-2023 Triglyceride [Mass/Vol] 103 mg/dL 0-149 [facility] Comment on above: TRIG ATP III CLASSIF ICATIONTRIG less than 150 mg/dL NormalTRIG 150-199 mg/dL Borderline highTRIG 200-500 mg/dL High TRIG greater than 500 mg/dL Very highStandard traceable to the Center for Disease Conrtrol and Prevention (CDC) test method. Vitamin D 25 Hydroxy Totalon 09-15-2023 Vitamin D 25 Hydroxy Total 22.0 ng/mL Low 30-100 [facility] Comment on above: Result Comment: HUSAM MIN D STATUS 25(OH)VITAMIN D RANGE (ng/mL) Deficient <20 Insufficient 20 to <30 Sufficient 30 to 100 Reference: Monica Cantu, Fabrizio HA, et al. Evaluation,treatment, and prevention of vitamin D deficiency; an Endocrine Society clinical practice guideline. JCEM. 2010; 96(7):1911-30. PERFORMED BY: [place] [address] PATHOLOGIST WELDER OPERATOR ELE SPRING M.D. Performed By: #### U HCG, URDS #### [address] Vitamin D+Metabolites [Mass/ volume] in Serum or PlasmaOrdered By: Sridhar Hoffman on 09-15-2023 Vitamin D+Metabolites [Mass/Vol] 22.0 ng/mL 30-100 [facility] Comment on above: VITAMIN D [...] [Catalytic activity/Vol] 20 U/L Normal 7-52 [facility] Comment on above: Performed By: #### U HCG, URDS #### [address] Albumin [Mass/volume] in Ser um or Plasma by Bromocresol green (BCG) dye binding methoOrdered By: Good Garcia on 09-14-2023 Albumin BCG dye [Mass/Vol] 4.0 g/dL 3.5-5.7 [facility] Alkaline phosphatase [Enzyma tic activity/volume] in Serum or PlasmaOrdered By: Good Garcia on 09-14-2023 ALP [Catalytic activity/Vol] 43 U/L Normal 34-104 [facility] Comment on above: Performed By: #### U HCG, URDS #### [address] Amphetamine Screen Ql (U)Ord ered By: Good Garcia on 09-14-2023 Amphetamines Ql (U) Negative Negative [facility] Aspartate aminotransferase [ Enzymatic activity/volume] in Serum or PlasmaOrdered By: Good Garcia on 09-14-2023 AST [Catalytic activity/Vol] 18 U/L Normal 13-39 [facility] Comment on above: Performed By: #### U HCG, URDS #### [address] Automated basophil %Ordered By: Good Garcia on 09-14-2023 Basophils/100 WBC (Bld) 0.6 % Normal . [facility] Comment on above: Performed By: #### U HCG, URDS #### [address] Automated basophil countOrde red By: Good Garcia on 09-14-2023 Basophils (Bld) [#/Vol] 0.0 10*3/uL Normal 0.0-0.2 [facility] Comment on above: Result Comment: PERF ORMED BY: [address] [place] [address] PATHOLOGIST WELDER OPERATOR ELE SPRING M.D. Performed By: #### U HCG, URDS #### [address] Automated blood monocyte cou ntOrdered By: Good Garcia on 09-14-2023 Monocytes (Bld) [#/Vol] 0.4 10*3/uL Normal 0.0-0.8 [facility] Comment on above: Performed By: #### U HCG, URDS #### [address] Automated eosinophil %Ordere d By: Good aGrcia on 09-14-2023 Eosinophils/100 WBC (Bld) 1.0 % Normal . [facility] Comment on above: Performed By: #### U HCG, URDS #### [address] Automated eosinophil countOr dered By: Good Garcia on 09-14-2023 Eosinophils (Bld) [#/Vol] 0.1 10*3/uL Normal 0.0-0.45 [facility] Comment on above: Performed By: #### U HCG, URDS #### [address] Automated monocyte %Ordered By: Good Garcia on 09-14-2023 Monocytes/100 WBC (Bld) 7.5 % Normal . [facility] Comment on above: Performed By: #### U HCG, URDS #### [address] Automated neutrophil %Ordere d By: Good Garcia on 09-14-2023 Neutrophils/100 WBC (Bld) 59.4 % Normal . [facility] Comment on above: Performed By: #### U HCG, URDS #### [address] Automated urine color determ inationOrdered By: Good Garcia on 09-14-2023 Color (U) Yellow Normal Yellow [facility] Comment on above: Order Comment: Name Collection Type:: Clean-Voided Midstream Performed By: #### U HCG, URDS #### [facility] [address] [place] [id number] [place] Barbiturates [Presence] in U rine by Screen methodOrdered By: Good Garcia on 09-14-2023 Barbiturates Screen Ql (U) Negative Negative [facility] Benzodiazepines Screen Ql (U )Ordered By: Good Garcia on 09-14-2023 Benzodiazepines Ql (U) Negative Negative [facility] Benzoylecgonine [Presence] i n Urine by Screen methodOrdered By: Good Garcia on 09-14-2023 Benzoylecgonine Screen Ql (U) Negative Negative [facility] Bilirubin Test strip Ql (U)O rdered By: Good Garcia on 09-14-2023 Bilirubin Ql (U) Negative Negative [facility] Bilirubin.total [Mass/volume ] in Serum or PlasmaOrdered By: Good Garcia on 09-14-2023 Bilirubin [Mass/Vol] 0.4 mg/dL Normal 0.3-1.0 [facility] Comment on above: Performed By: #### U HCG, URDS #### [facility] [address] [place] [address] [place] Calcium [Mass/volume] in Ser um or PlasmaOrdered By: Good Garcia on 09-14-2023 Calcium [Mass/Vol] 9.8 mg/dL Normal 8.6-10.3 [facility] Comment on above: Performed By: #### U HCG, URDS #### [facility] [address] [place] [id number] [place] Cannabinoids [Presence] in U rine by Screen methodOrdered By: Good Garcia on 09-14-2023 Cannabinoids Screen Ql (U) Negative Negative [facility] Comment on above: These are unconfirme d results and should not be used for legal purposes. Drug Cut-Off Concentration: AMPH 1000 ng/mL GABRIELA 200 ng/mL SIVA 200 ng/mL COCM 300 ng/mL OP 300 ng/mL PCP 25 ng/mL THC 20 ng/mL Carbon dioxide, total [Moles /volume] in Serum or PlasmaOrdered By: Good Garcia on 09-14-2023 CO2 [Moles/Vol] 31.2 mmol/L High 21.0-31.0 [facility] Comment on above: Performed By: #### U HCG, URDS #### [facility] [address] Chloride [Moles/volume] in S anupam or PlasmaOrdered By: Good Garcia on 09-14-2023 Chloride [Moles/Vol] 103 mmol/L Normal 98-107 [facility] Comment on above: Performed By: #### U HCG, URDS #### [facility] [address] Complete Blood Count Auto Di ffon 09-14-2023 Mean Corpuscular HGB Conc 34.0 g/dL Normal 32.0-35.0 [facility] Comment on above: Performed By: #### U HCG, URDS #### [facility] [address] Monocytes/100 WBC (Bld) 16.08 % Normal 0.00-20.00 [facility] Comment on above: Performed By: #### U HCG, URDS #### [facility] [address] NRBC% 0.1 /100{WBC} Normal 0-0.5 [facility] Comment on above: Performed By: #### U HCG, URDS #### [facility] [address] Comprehensive Metabolic Pane arjun 09-14-2023 Albumin [Mass/Vol] 4.0 g/dL Normal 3.5-5.7 [facility] Comment on above: Performed By: #### U HCG, URDS #### [facility] [address] Creatinine Clr Calc Pharmacy 59.72 Normal [facility] Comment on above: Result Comment: PERF ORMED BY: [place] [address] PATHOLOGIST WELDER OPERATOR ELE SPRING M.D. Performed By: #### U HCG, URDS #### [address] GFR/1.73 sq M.predicted MDRD (S/P/Bld) [Vol rate/Area] mL/min/{1.73_m2} Normal [facility] Comment on above: Performed By: #### U HCG, URDS #### [address] Creatinine [Mass/volume] in Serum or PlasmaOrdered By: Good Garcia on 09-14-2023 Creatinine [Mass/Vol] 0.61 mg/dL Normal 0.60-1.20 [facility] Comment on above: Performed By: #### U HCG, URDS #### [address] Drug Screen,Urineon 09-14-19 24 Amphetamine Screen,Urine Negative Normal Negative [facility] Comment on above: Performed By: #### U HCG, URDS #### [address] Barbiturate Screen,Urine Negative Normal Negative [facility] Comment on above: Performed By: #### U HCG, URDS #### [address] Benzodiazepines Screen,Urine Negative Normal Negative [facility] Comment on above: Performed By: #### U HCG, URDS #### [address] Cannabinoid Screen,Urine Negative Normal Negative [facility] Comment on above: Result Comment: Thes e are unconfirmed results and should not be used for legal purposes. Drug Cut-Off Concentration: AMPH 1000 ng/mL GABRIELA 200 ng/mL SIVA 200 ng/mL COCM 300 ng/mL OP 300 ng/mL PCP 25 ng/mL THC 20 ng/mL PERFORMED BY: [place] [address] PATHOLOGIST WELDER OPERATOR ELE SPRING M.D. Performed By: #### U HCG, URDS #### [place] [address] [place] Cocaine Screen,Urine Negative Normal Negative [facility] Comment on above: Performed By: #### U HCG, URDS #### [address] Opiate Screen,Urine Positive High Negative [facility] Comment on above: Performed By: #### U HCG, URDS #### [address] Phencyclidine Screen,Urine Negative Normal Negative [facility] Comment on above: Performed By: #### U HCG, URDS #### [address] Erythrocyte distribution wid th [Ratio] by Automated countOrdered By: Good Garcia on 09-14-2023 Erythrocyte distribution width (RBC) [Ratio] 13.0 % Normal 11.9-15.3 [facility] Comment on above: Performed By: #### U HCG, URDS #### [address] Erythrocytes [#/volume] in B lood by Automated countOrdered By: Good Garcia on 09-14-2023 RBC (Bld) [#/Vol] 3.98 10*6/uL Normal 3.60-5.00 [facility] Comment on above: Performed By: #### U HCG, URDS #### [address] Ethanol [Mass/volume] in Ser um or PlasmaOrdered By: Good Garcia on 09-14-2023 Ethanol [Mass/Vol] mg/dL Normal [facility] Comment on above: Performed By: #### U HCG, URDS #### [place] [address] [place] Ethanol [Mass/Vol] TNP [facility] Comment on above: Test not performed Ethyl Alcohol Profileon 08-17 Percent Ethanol Not performed Normal [facility] Comment on above: Result Comment: PERF ORMED BY: [place] [address] PATHOLOGIST WELDER OPERATOR ELE SPRING M.D. Performed By: #### U HCG, URDS #### [facility] [address] [place] [address] [place] Glucose [Mass/volume] in Ser um or PlasmaOrdered By: Good Garcia on 09-14-2023 Glucose [Mass/Vol] 105 mg/dL High 70-100 [facility] Comment on above: ADA recommended refe rence rangeRandom Glucose Reference Range is dependent on time and content of last meal. Glucose of more than 200 mg/dL in a nonstressed, ambulatory subject supports the diagnosis of Diabetes Mellitus. Result Comment: [place] om Glucose Reference Range is dependent on time and content of last meal. Glucose of more than 200 mg/dL in a nonstressed, ambulatory subject supports the diagnosis of Diabetes Mellitus. ADA recommended reference range Performed By: #### U HCG, URDS #### [address] Hematocrit [Volume Fraction] of Blood by Automated countOrdered By: Good Garcia on 09-14-2023 Hematocrit (Bld) [Volume fraction] 35.7 % Normal 34.0-46.4 [facility] Comment on above: Performed By: #### U HCG, URDS #### [address] Hemoglobin [Mass/volume] in BloodOrdered By: Good Garcia on 09-14-2023 Hemoglobin (Bld) [Mass/Vol] 12.1 g/dL Normal 11.8-15.4 [facility] Comment on above: Performed By: #### U HCG, URDS #### [address] Ketones Auto test strip (U) [Mass/Vol]Ordered By: Good Garcia on 09-14-2023 Ketones (U) [Mass/Vol] Negative Negative [facility] Leukocytes [#/volume] correc gage for nucleated erythrocytes in Blood by Automated counOrdered By: Good Garcia on 09-14-2023 WBC corrected for nucl RBC Auto (Bld) [#/Vol] 5.3 10*3/uL 3.8-11.6 [facility] Leukocytes [#/volume] in Blo od by Automated countOrdered By: Good Garcia on 09-14-2023 WBC (Bld) [#/Vol] 5.3 10*3/uL Normal 3.8-11.6 [facility] Comment on above: Performed By: #### U HCG, URDS #### [facility] [address] Lymphocytes [#/volume] in Bl ood by Automated countOrdered By: Good Garcia on 09-14-2023 Lymphocytes (Bld) [#/Vol] 1.7 10*3/uL Normal 1.00-4.8 [facility] Comment on above: Performed By: #### U HCG, URDS #### [address] Lymphocytes/100 leukocytes i n Blood by Automated countOrdered By: Good Garcia on 09-14-2023 Lymphocytes/100 WBC (Bld) 31.5 % Normal . [facility] Comment on above: Performed By: #### U HCG, URDS #### [place] [address] [place] MCH [Entitic mass] by Automa gage countOrdered By: Good Garcia on 09-14-2023 MCH (RBC) [Entitic mass] 30.4 pg Normal 24.7-34.3 [facility] Comment on above: Performed By: #### U HCG, URDS #### [address] MCHC Auto (RBC) [Mass/Vol]Or dered By: Good Garcia on 09-14-2023 MCHC (RBC) [Mass/Vol] 34.0 g/dL 32.0-35.0 [facility] MCV [Entitic volume] by Auto mated countOrdered By: Good Garcia on 09-14-2023 MCV (RBC) [Entitic vol] 89.6 fL Normal 80-100 [facility] Comment on above: Performed By: #### U HCG, URDS #### [address] Monocyte distribution width [Entitic volume] in Blood by AutomatedOrdered By: Good Garcia on 09-14-2023 Monocyte distribution width Auto (Bld) [Entitic vol] 16.08 % 0.00-20.00 [facility] Neutrophils [#/volume] in Bl ood by Automated countOrdered By: Good Garcia on 09-14-2023 Neutrophils (Bld) [#/Vol] 3.1 10*3/uL Normal 1.8-7.7 [facility] Comment on above: Performed By: #### U HCG, URDS #### [facility] [address] Nitrite Test strip Ql (U)Ord ered By: Good Garcia on 09-14-2023 Nitrite Ql (U) Negative Negative [facility] No Panel InformationOrdered By: Good Garcia on 09-14-2023 Estimated GFR (CKD-EPI) > 60.0 mL/Min [facility] Creatinine Clearance (Chem 59.72 [facility] Nucleated erythrocytes [Pres ence] in Blood by Automated countOrdered By: Good Garcia on 09-14-2023 Nucleated RBC Auto Ql (Bld) 0.1 /100{WBC} 0-0.5 [facility] Opiates [Presence] in Urine by Screen methodOrdered By: Good Garcia on 09-14-2023 Opiates Screen Ql (U) Positive Negative [facility] Phencyclidine Screen Ql (U)O rdered By: Good Garcia on 09-14-2023 Phencyclidine Ql (U) Negative Negative [facility] Platelet mean volume [Entiti c volume] in Blood by Automated countOrdered By: Good Garcia on 09-14-2023 Platelet mean volume (Bld) [Entitic vol] 7.3 fL Normal 6.3-10.7 [facility] Comment on above: Performed By: #### U HCG, URDS #### [facility] [address] [place] [address] [place] Platelets [#/volume] in Bloo d by Automated countOrdered By: Good Garcia on 09-14-2023 Platelets (Bld) [#/Vol] 246 10*3/uL Normal 150-450 [facility] Comment on above: Performed By: #### U HCG, URDS #### [address] Potassium [Moles/volume] in Serum or PlasmaOrdered By: Good Garcia on 09-14-2023 Potassium [Moles/Vol] 3.8 mmol/L Normal 3.5-5.1 [facility] Comment on above: Performed By: #### U HCG, URDS #### [address] Protein Auto test strip (U) [Mass/Vol]Ordered By: Good Garcia on 09-14-2023 Protein (U) [Mass/Vol] Negative Negative [facility] Protein [Mass/volume] in Ser um or PlasmaOrdered By: Good Garcia on 09-14-2023 Protein [Mass/Vol] 6.2 g/dL Low 6.4-8.9 [facility] Comment on above: Performed By: #### U HCG, URDS #### [address] Serum globulin measurement b y calculation (mass/volume)Ordered By: Good Garcia on 09-14-2023 Globulin (S) [Mass/Vol] 2.2 g/dL Normal [facility] [facility] Comment on above: Performed By: #### U HCG, URDS #### [facility] [address] [place] [address] Serum or plasma albumin/glob ulin mass ratioOrdered By: Good Garcia on 09-14-2023 Albumin/Globulin [Mass ratio] 1.8 {ratio} Normal [facility] Comment on above: Performed By: #### U HCG, URDS #### [address] Serum or plasma anion gap de terminationOrdered By: Good Garcia on 09-14-2023 Anion gap [Moles/Vol] 7.6 mmol/L Normal 6.0-15.0 [facility] Comment on above: Performed By: #### U HCG, URDS #### [address] Sodium [Moles/volume] in Ser um or PlasmaOrdered By: Good Radha on 09-14-2023 Sodium [Moles/Vol] 138 mmol/L Normal 136-145 [facility] Comment on above: Performed By: #### U HCG, URDS #### [address] Specific gravity Auto test s trip (U) [Rel density]Ordered By: Good Garcia on 09-14-2023 Specific gravity (U) [Rel density] 1.004 1.001-1.030 [facility] Urea nitrogen [Mass/volume] in Serum or PlasmaOrdered By: Good Garcia on 09-14-2023 Urea nitrogen [Mass/Vol] 8 mg/dL Normal 7-25 [facility] Comment on above: Performed By: #### U HCG, URDS #### [address] Urinalysison 09-14-2023 Appearance (U) Clear Normal Clear [facility] Comment on above: Order Comment: Name Collection Type:: Clean-Voided Midstream Performed By: #### U HCG, URDS #### [address] Bilirubin,Urine Negative Normal Negative [facility] Comment on above: Order Comment: Name Collection Type:: Clean-Voided Midstream Performed By: #### U HCG, URDS #### [address] Glucose Ql (U) Normal Normal Normal [facility] Comment on above: Order Comment: Name Collection Type:: Clean-Voided Midstream Performed By: #### U HCG, URDS #### [address] Ketones Ql (U) Negative Normal Negative [facility] Comment on above: Order Comment: Name Collection Type:: Clean-Voided Midstream Performed By: #### U HCG, URDS #### [address] Leukocyte esterase Test strip Ql (U) Negative Normal Negative [facility] Comment on above: Order Comment: Name Collection Type:: Clean-Voided Midstream Performed By: #### U HCG, URDS #### [address] Nitrite,Urine Negative Normal Negative [facility] Comment on above: Order Comment: Name Collection Type:: Clean-Voided Midstream Performed By: #### U HCG, URDS #### [address] Occult Blood,Urine Negative Normal Negative [facility] Comment on above: Order Comment: Name Collection Type:: Clean-Voided Midstream Result Comment: PERF ORMED BY: [place] [address] PATHOLOGIST WELDER OPERATOR ELE PSRING M.D. Performed By: #### U HCG, URDS #### [address] Protein,Urine Negative Normal Negative [facility] Comment on above: Order Comment: Name Collection Type:: Clean-Voided Midstream Performed By: #### U HCG, URDS #### [address] Specificy [place],Urine 1.004 Normal 1.001-1.030 [facility] Comment on above: Order Comment: Name Collection Type:: Clean-Voided Midstream Performed By: #### U HCG, URDS #### [place] [address] [place] Urobilinogen,Urine Normal Normal Normal [facility] Comment on above: Order Comment: Name Collection Type:: Clean-Voided Midstream Performed By: #### U HCG, URDS #### [address] Urine clarity by refractomet ry automatedOrdered By: Good Garcia on 09-14-2023 Clarity Refractometry automated (U) Clear Clear [facility] Urine glucose measurement by automated test strip (mass/volume)Ordered By: Good Garcia on 09-14-2023 Glucose Auto test strip (U) [Mass/Vol] Normal mg/dL Normal [facility] Urine hemoglobin detection b y automated test stripOrdered By: Good Garcia on 09-14-2023 Hemoglobin Auto test strip Ql (U) Negative Negative [facility] Urine leukocyte esterase det ection by automated test stripOrdered By: Good Garcia on 09-14-2023 Leukocyte esterase Auto test strip Ql (U) Negative Negative [facility] Urine pH measurement by auto mated test stripOrdered By: Good Garcia on 09-14-2023 pH (U) 7.0 [pH] Normal 5.0-9.0 [facility] Comment on above: Order Comment: Name Collection Type:: Clean-Voided Midstream Performed By: #### U HCG, URDS #### [address] Urobilinogen Auto test strip (U) [Mass/Vol]Ordered By: Good Garcia on 09-14-2023 Urobilinogen (U) [Mass/Vol] Normal mg/dL Normal [facility] UA (CLEAN/CATCH) MICROSC OPIC IF INDICATEon 06-30-2023 BILIRUBIN URINE Negative NEGATIVE [facility] BLOOD URINE Negative NEGATIVE [facility] Clarity (U) CLEAR CLEAR [facility] Color (U) LT. YELLOW YELLOW [facility] GLUCOSE URINE UA Negative NEGATIVE mg/dL [facility] Interpretation and review of laboratory results Abnormal [facility] Ketones Ql (U) Negative NEGATIVE mg/dL [facility] Leukocyte esterase Test strip Ql (U) TRACE Abnormal NEGATIVE [facility] NITRITE URINE Negative NEGATIVE [facility] pH (U) 5.0 [pH] 5.0 - 9.0 [facility] PROTEIN URINE Negative NEG/TRACE mg/dL [facility] SPECIFIC GRAVITY URINE 1.025 1.005 - 1.025 [facility] URINE MICROSCOPIC INDICATED YES [facility] UROBILINOGEN URINE 0.2 EU/dL 0.2 - 1.0 EU/dL [facility] A1C with Estimated Average G luon 06-04-2023 Glucose [Mass/Vol] 128 mg/dL Normal [facility] Comment on above: Result Comment: PERF ORMED BY: [place] [address] PATHOLOGIST WELDER OPERATOR ELE SPRING M.D. Performed By: #### U HCG, URDS #### [address] HbA1c (Bld) [Mass fraction] 6.1 % High 4.3-5.6 [facility] Comment on above: Result Comment: Incr eased risk for diabetes: 5.7 - 6.4 diabetes: >6.4 glycemic control for adults with diabetes: <7.0 Performed By: #### U HCG, URDS #### [address] Comprehensive Metabolic Pane arjun 06-04-2023 Albumin [Mass/Vol] 3.3 g/dL Low 3.5-5.7 [facility] Comment on above: Performed By: #### C MP, A1C WTH eA #### [address] Albumin/Globulin [Mass ratio] 1.4 {ratio} Normal [facility] Comment on above: Performed By: #### C MP, A1C WTH eA #### [address] ALP [Catalytic activity/Vol] 39 U/L Normal 34-104 [facility] Comment on above: Performed By: #### C MP, A1C WTH eA #### [address] ALT [Catalytic activity/Vol] 12 U/L Normal 7-52 [facility] Comment on above: Performed By: #### C MP, A1C WTH eA #### [address] Anion gap [Moles/Vol] 6.4 mmol/L Normal 6.0-15.0 [facility] Comment on above: Performed By: #### C MP, A1C WTH eA #### [address] AST [Catalytic activity/Vol] 20 U/L Normal 13-39 [facility] Comment on above: Performed By: #### C MP, A1C WTH eA #### [facility] [address] [place] [address] [place] Bilirubin [Mass/Vol] 0.4 mg/dL Normal 0.3-1.0 [facility] Comment on above: Performed By: #### C MP, A1C WTH eA #### [facility] [address] [place] [address] [place] Calcium [Mass/Vol] 9.3 mg/dL Normal 8.6-10.3 [facility] Comment on above: Performed By: #### C MP, A1C WTH eA #### [facility] [address] [place] [address] [place] Chloride [Moles/Vol] 108 mmol/L High 98-107 [facility] Comment on above: Performed By: #### C MP, A1C WTH eA #### [place] [address] [place] CO2 [Moles/Vol] 30.7 mmol/L Normal 21.0-31.0 [facility] Comment on above: Performed By: #### C MP, A1C WTH eA #### [place] [address] [place] Creatinine [Mass/Vol] 0.71 mg/dL Normal 0.60-1.20 [facility] Comment on above: Performed By: #### C MP, A1C WTH eA #### [place] [address] [place] Creatinine Clr Calc Pharmacy 59.72 Normal [facility] Comment on above: Result Comment: PERF ORMED BY: [place] [address] PATHOLOGIST WELDER OPERATOR ELE SPRING M.D. Performed By: #### C MP, A1C WTH eA #### [place] [address] [place] GFR/1.73 sq M.predicted MDRD (S/P/Bld) [Vol rate/Area] mL/min/{1.73_m2} Normal [facility] Comment on above: Performed By: #### C SUE A1C WTH eA #### [address] Globulin (S) [Mass/Vol] 2.3 g/dL Normal [facility] Comment on above: Performed By: #### C SUE A1C WTH eA #### [address] Glucose [Mass/Vol] 101 mg/dL High 70-100 [facility] Comment on above: Result Comment: [facility] Glucose Reference Range is dependent on time and content of last meal. Glucose of more than 200 mg/dL in a nonstressed, ambulatory subject supports the diagnosis of Diabetes Mellitus. ADA recommended reference range Performed By: #### C SUE A1C WT eA #### [address] Potassium [Moles/Vol] 4.1 mmol/L Normal 3.5-5.1 [facility] Comment on above: Performed By: #### C SUE A1C WT eA #### [address] Protein [Mass/Vol] 5.6 g/dL Low 6.4-8.9 [facility] Comment on above: Performed By: #### C SUE A1C WT eA #### [address] Sodium [Moles/Vol] 141 mmol/L Normal 136-145 [facility] Comment on above: Performed By: #### C SUE A1C WT eA #### [place] [address] [place] Urea nitrogen [Mass/Vol] 22 mg/dL Normal 7-25 [facility] Comment on above: Performed By: #### C SUE A1C WT eA #### [address] Urine Cultureon 06-04-2023 Bacteria identified Cx Nom (U) <9,000 colonies/ml mixed bacterial skin contaminants 2 Days PERFORMED BY: [place] [address] PATHOLOGIST WELDER OPERATOR ELE SPRING M.D. Normal [facility] Comment on above: Performed By: #### C UU #### [place] [id number] [facility] A1C with Estimated Average G luon 06-01-2023 Glucose [Mass/Vol] 126 mg/dL Normal [facility] Comment on above: Result Comment: PERF ORMED BY: [place] [address] PATHOLOGIST WELDER OPERATOR ELE SPRING M.D. Performed By: #### C SFCCDIFF, CSF GLU, AERC, GS, CSF TP, CSF PCR PANEL #### [address] HbA1c (Bld) [Mass fraction] 6.0 % High 4.3-5.6 [facility] Comment on above: Result Comment: Incr eased risk for diabetes: 5.7 - 6.4 diabetes: >6.4 glycemic control for adults with diabetes: <7.0 Performed By: #### C SFCCDIFF, CSF GLU, AERC, GS, CSF TP, CSF PCR PANEL #### [address] Complete Blood Count Auto Di ffon 06-01-2023 Basophils (Bld) [#/Vol] 0.0 10*3/uL Normal 0.0-0.2 [facility] Comment on above: Result Comment: PERF ORMED BY: [place] [address] PATHOLOGIST WELDER OPERATOR ELE SPRING M.D. Performed By: #### C SFCCDIFF, CSF GLU, AERC, GS, CSF TP, CSF PCR PANEL #### [address] Basophils/100 WBC (Bld) 0.5 % Normal . [facility] Comment on above: Performed By: #### C SFCCDIFF, CSF GLU, AERC, GS, CSF TP, CSF PCR PANEL #### [place] [id number] [place] Eosinophils (Bld) [#/Vol] 0.1 10*3/uL Normal 0.0-0.45 [facility] Comment on above: Performed By: #### C SFCCDIFF, CSF GLU, AERC, GS, CSF TP, CSF PCR PANEL #### [address] Eosinophils/100 WBC (Bld) 1.5 % Normal . [facility] Comment on above: Performed By: #### C SFCCDIFF, CSF GLU, AERC, GS, CSF TP, CSF PCR PANEL #### [address] Erythrocyte distribution width (RBC) [Ratio] 12.9 % Normal 11.9-15.3 [facility] Comment on above: Performed By: #### C SFCCDIFF, CSF GLU, AERC, GS, CSF TP, CSF PCR PANEL #### [address] Hematocrit (Bld) [Volume fraction] 35.4 % Normal 34.0-46.4 [facility] Comment on above: Performed By: #### C SFCCDIFF, CSF GLU, AERC, GS, CSF TP, CSF PCR PANEL #### [address] Hemoglobin (Bld) [Mass/Vol] 11.9 g/dL Normal 11.8-15.4 [facility] Comment on above: Performed By: #### C SFCCDIFF, CSF GLU, AERC, GS, CSF TP, CSF PCR PANEL #### [address] Lymphocytes (Bld) [#/Vol] 1.6 10*3/uL Normal 1.00-4.8 [facility] Comment on above: Performed By: #### C SFCCDIFF, CSF GLU, AERC, GS, CSF TP, CSF PCR PANEL #### [address] Lymphocytes/100 WBC (Bld) 31.4 % Normal . [facility] Comment on above: Performed By: #### C SFCCDIFF, CSF GLU, AERC, GS, CSF TP, CSF PCR PANEL #### [address] MCH (RBC) [Entitic mass] 29.5 pg Normal 24.7-34.3 [facility] Comment on above: Performed By: #### C SFCCDIFF, CSF GLU, AERC, GS, CSF TP, CSF PCR PANEL #### [address] MCV (RBC) [Entitic vol] 88.1 fL Normal 80-100 [facility] Comment on above: Performed By: #### C SFCCDIFF, CSF GLU, AERC, GS, CSF TP, CSF PCR PANEL #### [address] Mean Corpuscular HGB Conc 33.5 g/dL Normal 32.0-35.0 [facility] Comment on above: Performed By: #### C SFCCDIFF, CSF GLU, AERC, GS, CSF TP, CSF PCR PANEL #### [address] Monocytes (Bld) [#/Vol] 0.4 10*3/uL Normal 0.0-0.8 [facility] Comment on above: Performed By: #### C SFCCDIFF, CSF GLU, AERC, GS, CSF TP, CSF PCR PANEL #### [address] Monocytes/100 WBC (Bld) 8.8 % Normal . T [facility] Comment on above: Performed By: #### C SFCCDIFF, CSF GLU, AERC, GS, CSF TP, CSF PCR PANEL #### [address] Neutrophils (Bld) [#/Vol] 2.9 10*3/uL Normal 1.8-7.7 [facility] Comment on above: Performed By: #### C SFCCDIFF, CSF GLU, AERC, GS, CSF TP, CSF PCR PANEL #### [address] Neutrophils/100 WBC (Bld) 57.8 % Normal . [facility] Comment on above: Performed By: #### C SFCCDIFF, CSF GLU, AERC, GS, CSF TP, CSF PCR PANEL #### [address] NRBC% 0.1 /100{WBC} Normal 0-0.5 [facility] Comment on above: Performed By: #### C SFCCDIFF, CSF GLU, AERC, GS, CSF TP, CSF PCR PANEL #### [address] Platelet mean volume (Bld) [Entitic vol] 7.4 fL Normal 6.3-10.7 [facility] Comment on above: Performed By: #### C SFCCDIFF, CSF GLU, AERC, GS, CSF TP, CSF PCR PANEL #### [address] Platelets (Bld) [#/Vol] 220 10*3/uL Normal 150-450 [facility] Comment on above: Performed By: #### C SFCCDIFF, CSF GLU, AERC, GS, CSF TP, CSF PCR PANEL #### [address] RBC (Bld) [#/Vol] 4.02 10*6/uL Normal 3.60-5.00 [facility] Comment on above: Performed By: #### C SFCCDIFF, CSF GLU, AERC, GS, CSF TP, CSF PCR PANEL #### [address] WBC (Bld) [#/Vol] 5.1 10*3/uL Normal 3.8-11.6 [facility] Comment on above: Performed By: #### C SFCCDIFF, CSF GLU, AERC, GS, CSF TP, CSF PCR PANEL #### [address] Comprehensive Metabolic Pane arjun 06-01-2023 Albumin [Mass/Vol] 3.4 g/dL Low 3.5-5.7 [facility] Comment on above: Performed By: #### C SFCCDIFF, CSF GLU, AERC, GS, CSF TP, CSF PCR PANEL #### [address] Albumin/Globulin [Mass ratio] 1.5 {ratio} Normal [facility] Comment on above: Performed By: #### C SFCCDIFF, CSF GLU, AERC, GS, CSF TP, CSF PCR PANEL #### [address] ALP [Catalytic activity/Vol] 37 U/L Normal 34-104 [facility] Comment on above: Performed By: #### C SFCCDIFF, CSF GLU, AERC, GS, CSF TP, CSF PCR PANEL #### [address] ALT [Catalytic activity/Vol] 13 U/L Normal 7-52 [facility] Comment on above: Performed By: #### C SFCCDIFF, CSF GLU, AERC, GS, CSF TP, CSF PCR PANEL #### [address] Anion gap [Moles/Vol] 8.2 mmol/L Normal 6.0-15.0 [facility] Comment on above: Performed By: #### C SFCCDIFF, CSF GLU, AERC, GS, CSF TP, CSF PCR PANEL #### [address] AST [Catalytic activity/Vol] 15 U/L Normal 13-39 [facility] Comment on above: Performed By: #### C SFCCDIFF, CSF GLU, AERC, GS, CSF TP, CSF PCR PANEL #### [address] Bilirubin [Mass/Vol] 0.3 mg/dL Normal 0.3-1.0 [facility] Comment on above: Performed By: #### C SFCCDIFF, CSF GLU, AERC, GS, CSF TP, CSF PCR PANEL #### [address] Calcium [Mass/Vol] 9.1 mg/dL Normal 8.6-10.3 [facility] Comment on above: Performed By: #### C SFCCDIFF, CSF GLU, AERC, GS, CSF TP, CSF PCR PANEL #### [address] Chloride [Moles/Vol] 109 mmol/L High 98-107 [facility] Comment on above: Performed By: #### C SFCCDIFF, CSF GLU, AERC, GS, CSF TP, CSF PCR PANEL #### [address] CO2 [Moles/Vol] 27.8 mmol/L Normal 21.0-31.0 [facility] Comment on above: Performed By: #### C SFCCDIFF, CSF GLU, AERC, GS, CSF TP, CSF PCR PANEL #### [address] Creatinine [Mass/Vol] 0.58 mg/dL Low 0.60-1.20 [facility] Comment on above: Performed By: #### C SFCCDIFF, CSF GLU, AERC, GS, CSF TP, CSF PCR PANEL #### [address] Creatinine Clr Calc Pharmacy 59.72 Normal [facility] Comment on above: Result Comment: PERF ORMED BY: [place] [address] PATHOLOGIST WELDER OPERATOR ELE SPRING M.D. Performed By: #### C SFCCDIFF, CSF GLU, AERC, GS, CSF TP, CSF PCR PANEL #### [address] GFR/1.73 sq M.predicted MDRD (S/P/Bld) [Vol rate/Area] mL/min/{1.73_m2} Normal [facility] Comment on above: Performed By: #### C SFCCDIFF, CSF GLU, AERC, GS, CSF TP, CSF PCR PANEL #### [address] Globulin (S) [Mass/Vol] 2.2 g/dL Normal [facility] Comment on above: Performed By: #### C SFCCDIFF, CSF GLU, AERC, GS, CSF TP, CSF PCR PANEL #### [address] Glucose [Mass/Vol] 94 mg/dL Normal 70-100 [facility] Comment on above: Result Comment: [facility] Glucose Reference Range is dependent on time and content of last meal. Glucose of more than 200 mg/dL in a nonstressed, ambulatory subject supports the diagnosis of Diabetes Mellitus. ADA recommended reference range Performed By: #### C SFCCDIFF, CSF GLU, AERC, GS, CSF TP, CSF PCR PANEL #### [address] Potassium [Moles/Vol] 4.0 mmol/L Normal 3.5-5.1 [facility] Comment on above: Performed By: #### C SFCCDIFF, CSF GLU, AERC, GS, CSF TP, CSF PCR PANEL #### [address] Protein [Mass/Vol] 5.6 g/dL Low 6.4-8.9 [facility] Comment on above: Performed By: #### C SFCCDIFF, CSF GLU, AERC, GS, CSF TP, CSF PCR PANEL #### [address] Sodium [Moles/Vol] 141 mmol/L Normal 136-145 [facility] Comment on above: Performed By: #### C SFCCDIFF, CSF GLU, AERC, GS, CSF TP, CSF PCR PANEL #### [address] Urea nitrogen [Mass/Vol] 18 mg/dL Normal 7-25 [facility] Comment on above: Performed By: #### C SFCCDIFF, CSF GLU, AERC, GS, CSF TP, CSF PCR PANEL #### [address] Dipstick and Microscopicon 0 05-31-2023 Appearance (U) Slightly Cloudy Critically abnormal Clear [facility] Comment on above: Order Comment: Comme nt tube 3 Performed By: #### C SFCCDIFF, CSF GLU, AERC, GS, CSF TP, CSF PCR PANEL #### [address] Bacteria,Urine None Seen Normal None Seen [facility] Comment on above: Order Comment: Comme nt tube 3 Performed By: #### C SFCCDIFF, CSF GLU, AERC, GS, CSF TP, CSF PCR PANEL #### [address] Bilirubin,Urine Negative Normal Negative [facility] Comment on above: Order Comment: Comme nt tube 3 Performed By: #### C SFCCDIFF, CSF GLU, AERC, GS, CSF TP, CSF PCR PANEL #### [address] Color (U) Yellow Normal Yellow [facility] Comment on above: Order Comment: Comme nt tube 3 Performed By: #### C SFCCDIFF, CSF GLU, AERC, GS, CSF TP, CSF PCR PANEL #### [address] Glucose Ql (U) Normal Normal Normal [facility] Comment on above: Order Comment: Comme nt tube 3 Performed By: #### C SFCCDIFF, CSF GLU, AERC, GS, CSF TP, CSF PCR PANEL #### [address] Hyaline Casts,Urine 9-19 High 0-8 [facility] Comment on above: Order Comment: Comme nt tube 3 Result Comment: PERF ORMED BY: [place] [address] PATHOLOGIST WELDER OPERATOR ELE SPRING M.D. Performed By: #### C SFCCDIFF, CSF GLU, AERC, GS, CSF TP, CSF PCR PANEL #### [address] Ketones Ql (U) Negative Normal Negative [facility] Comment on above: Order Comment: Comme nt tube 3 Performed By: #### C SFCCDIFF, CSF GLU, AERC, GS, CSF TP, CSF PCR PANEL #### [address] Leukocyte esterase Test strip Ql (U) 2+ High Negative [facility] Comment on above: Order Comment: Comme nt tube 3 Performed By: #### C SFCCDIFF, CSF GLU, AERC, GS, CSF TP, CSF PCR PANEL #### [address] Nitrite,Urine Negative Normal Negative [facility] Comment on above: Order Comment: Comme nt tube 3 Performed By: #### C SFCCDIFF, CSF GLU, AERC, GS, CSF TP, CSF PCR PANEL #### [address] Occult Blood,Urine Negative Normal Negative [facility] Comment on above: Order Comment: Comme nt tube 3 Result Comment: PERF ORMED BY: [place] [address] PATHOLOGIST WELDER OPERATOR ELE SPRING M.D. Performed By: #### C SFCCDIFF, CSF GLU, AERC, GS, CSF TP, CSF PCR PANEL #### [address] Othe Crystals,Urine None Seen Normal [facility] Comment on above: Order Comment: Comme nt tube 3 Performed By: #### C SFCCDIFF, CSF GLU, AERC, GS, CSF TP, CSF PCR PANEL #### [address] pH (U) 6.0 [pH] Normal 5.0-9.0 [facility] Comment on above: Order Comment: Comme nt tube 3 Performed By: #### C SFCCDIFF, CSF GLU, AERC, GS, CSF TP, CSF PCR PANEL #### [address] Protein,Urine Negative Normal Negative [facility] Comment on above: Order Comment: Comme nt tube 3 Performed By: #### C SFCCDIFF, CSF GLU, AERC, GS, CSF TP, CSF PCR PANEL #### [address] RBC,Urine 5-9 High 0-4 [facility] Comment on above: Order Comment: Comme nt tube 3 Performed By: #### C SFCCDIFF, CSF GLU, AERC, GS, CSF TP, CSF PCR PANEL #### [address] Specificy [place],Urine 1.030 Normal 1.001-1.030 [facility] Comment on above: Order Comment: Comme nt tube 3 Performed By: #### C SFCCDIFF, CSF GLU, AERC, GS, CSF TP, CSF PCR PANEL #### [address] Squamous Epithelial Cell,Urine 1-2 Normal 0-2 [facility] Comment on above: Order Comment: Comme nt tube 3 Performed By: #### C SFCCDIFF, CSF GLU, AERC, GS, CSF TP, CSF PCR PANEL #### [address] Uric Acid Crystals,Urine 1+ Normal [facility] Comment on above: Order Comment: Comme nt tube 3 Performed By: #### C SFCCDIFF, CSF GLU, AERC, GS, CSF TP, CSF PCR PANEL #### [address] Urobilinogen,Urine Normal Normal Normal [facility] Comment on above: Order Comment: Comme nt tube 3 Performed By: #### C SFCCDIFF, CSF GLU, AERC, GS, CSF TP, CSF PCR PANEL #### [place] [address] [place] WBC,Urine 5-9 High 0-4 [facility] Comment on above: Order Comment: Comme nt tube 3 Performed By: #### C SFCCDIFF, CSF GLU, AERC, GS, CSF TP, CSF PCR PANEL #### [address] MR head/brain wo conon 05-31 MR head/brain wo con [facility] [place] [address] [place] [address] MRI Report Signed Patient: Donnie Bullock MR#: [id number] [birth year] : 1955 Acct:[id number] Age/Sex: 67 / F ADM Date: 05/25/23 Loc: Room: 8Y1344-4 Type: ADM IN Attending Dr: Sridhar Hoffman [...] Coates Jr., D.O.05/31/2023 1:55 PM Dictation Location: [place] [address] Transcribed By: [facility] 05/31/23 1355 Dictated By: Raymundo Coates Jr, DO 05/31/23 1348 Signed By: 05/31/23 1355 Normal [facility] Urine Cultureon 05-31-2023 Bacteria identified Cx Nom (U) 15,000 colonies/ml mixed bacterial skin contaminants 2 Days PERFORMED BY: [place] [address] PATHOLOGIST WELDER OPERATOR ELE SPRING M.D. Normal [facility] Comment on above: Performed By: #### C SFCCDIFF, CSF GLU, AERC, GS, CSF TP, CSF PCR PANEL #### [place] [id number] [facility] Ammoniaon 05-29-2023 Ammonia (P) [Moles/Vol] 21 umol/L Normal 11-35 [facility] Comment on above: Result Comment: PERF ORMED BY: [place] [address] PATHOLOGIST WELDER OPERATOR ELE SPRING M.D. Performed By: #### C SFCCDIFF, CSF GLU, AERC, GS, CSF TP, CSF PCR PANEL #### [place] [id number] [facility] Vitamin B12on 05-29-2023 Cobalamin (Vitamin B12) [Mass/Vol] 380 pg/mL Normal 180-914 [facility] Comment on above: Result Comment: PERF ORMED BY: [place] [address] PATHOLOGIST WELDER OPERATOR ELE SPRING M.D. Performed By: #### C SFCCDIFF, CSF GLU, AERC, GS, CSF TP, CSF PCR PANEL #### [address] Lipid Panelon 05-26-2023 Cholesterol [Mass/Vol] 177 mg/dL Normal 140-200 [facility] Comment on above: Result Comment: Chol less than 200 mg/dl low risk Chol 201-239 mg/dl borderline risk Chol 240 mg/dl and greater high risk Performed By: #### C SFCCDIFF, CSF GLU, AERC, GS, CSF TP, CSF PCR PANEL #### [address] Cholesterol in HDL [Mass/Vol] 62 mg/dL Normal 23-92 [facility] Comment on above: Result Comment: HDL CHOL ATP-III CLASSIFICATION Cardiovascular Risk HDL > or equal to 60 mg/dL LOW HDL < 40 mg/dL HIGH Performed By: #### C SFCCDIFF, CSF GLU, AERC, GS, CSF TP, CSF PCR PANEL #### [address] Cholesterol.total/Mandie sterol in HDL [Mass ratio] 2.9 {ratio} Normal <5.0 [facility] Comment on above: Performed By: #### C SFCCDIFF, CSF GLU, AERC, GS, CSF TP, CSF PCR PANEL #### [facility] [address] LDL Cholesterol,Calculated 95 mg/dL Normal 0-100 [facility] Comment on above: Result Comment: LDL ATP III CLASSIFICATION LDL less than 100 mg/dL Optimal LDL 100-129 mg/dL Near or above optimal LDL 130-159 mg/dL Borderline high LDL 160-189 mg/dL High LDL greater than 189 mg/dL Very high Performed By: #### C SFCCDIFF, CSF GLU, AERC, GS, CSF TP, CSF PCR PANEL #### [address] Triglyceride w/Reflex 100 mg/dL Normal 0-149 [facility] Comment on above: Result Comment: TRIG ATP III CLASSIFICATION TRIG less than 150 mg/dL Normal TRIG 150-199 mg/dL Borderline high TRIG 200-500 mg/dL High TRIG greater than 500 mg/dL Very high Standard traceable to the Center for Disease Conrtrol and Prevention (CDC) test method. Performed By: #### C SFCCDIFF, CSF GLU, AERC, GS, CSF TP, CSF PCR PANEL #### [address] VLDL CHOLESTEROL 20 mg/dL Normal [facility] Comment on above: Performed By: #### C SFCCDIFF, CSF GLU, AERC, GS, CSF TP, CSF PCR PANEL #### [facility] [address] Thyroid Stim Hormone w/Rflxo n 05-26-2023 Thyroid Stim Hormone w/Rflx 2.11 u[iU]/mL Normal 0.45-5.33 [facility] Comment on above: Performed By: #### C SFCCDIFF, CSF GLU, AERC, GS, CSF TP, CSF PCR PANEL #### [address] Vitamin D 25 Hydroxy Totalon 05-26-2023 Vitamin D 25 Hydroxy Total 25.4 ng/mL Low 30-100 [facility] Comment on above: Result Comment: HUSAM MIN D STATUS 25(OH)VITAMIN D RANGE (ng/mL) Deficient <20 Insufficient 20 to <30 Sufficient 30 to 100 Reference: Shaq MF,Monica NC, Fabrizio , et al. Evaluation,treatment, and prevention of vitamin D deficiency; an Endocrine Society clinical practice guideline. JCEM. 2010; 96(7):1911-30. PERFORMED BY: [place] [address] PATHOLOGIST WELDER OPERATOR ELE SPRING M.D. Performed By: #### C SFCCDIFF, CSF GLU, AERC, GS, CSF TP, CSF PCR PANEL #### [address] Alanine aminotransferase [En zymatic activity/volume] in Serum or PlasmaOrdered By: Robert Caruso on 05-25-2023 ALT [Catalytic activity/Vol] 14 U/L Normal 7-52 [facility] Comment on above: Performed By: #### C SFCCDIFF, CSF GLU, AERC, GS, CSF TP, CSF PCR PANEL #### [facility] [address] [place] [address] [place] Albumin [Mass/volume] in Ser um or Plasma by Bromocresol green (BCG) dye binding methoOrdered By: Robert Caruso on 05-25-2023 Albumin BCG dye [Mass/Vol] 4.4 g/dL 3.5-5.7 [facility] Alkaline phosphatase [Enzyma tic activity/volume] in Serum or PlasmaOrdered By: Robert Caruso on 05-25-2023 ALP [Catalytic activity/Vol] 48 U/L Normal 34-104 [facility] Comment on above: Performed By: #### C SFCCDIFF, CSF GLU, AERC, GS, CSF TP, CSF PCR PANEL #### [address] Amphetamine Screen Ql (U)Ord ered By: Robert Caruso on 05-25-2023 Amphetamines Ql (U) Negative Negative [facility] Aspartate aminotransferase [ Enzymatic activity/volume] in Serum or PlasmaOrdered By: Robert Caruso on 05-25-2023 AST [Catalytic activity/Vol] 21 U/L Normal 13-39 [facility] Comment on above: Performed By: #### C SFCCDIFF, CSF GLU, AERC, GS, CSF TP, CSF PCR PANEL #### [address] Automated basophil %Ordered By: Robert Caruso on 05-25-2023 Basophils/100 WBC (Bld) 0.5 % Normal . [facility] Comment on above: Performed By: #### C SFCCDIFF, CSF GLU, AERC, GS, CSF TP, CSF PCR PANEL #### [address] Automated basophil countOrde red By: Robert Caruso on 05-25-2023 Basophils (Bld) [#/Vol] 0.0 10*3/uL Normal 0.0-0.2 [facility] Comment on above: Result Comment: PERF ORMED BY: [address] [place] [address] PATHOLOGIST WELDER OPERATOR ELE SPRING M.D. Performed By: #### C SFCCDIFF, CSF GLU, AERC, GS, CSF TP, CSF PCR PANEL #### [address] Automated blood monocyte cou ntOrdered By: Robert Caruso on 05-25-2023 Monocytes (Bld) [#/Vol] 0.3 10*3/uL Normal 0.0-0.8 [facility] Comment on above: Performed By: #### C SFCCDIFF, CSF GLU, AERC, GS, CSF TP, CSF PCR PANEL #### [address] Automated eosinophil %Ordere d By: Robert Caruso on 05-25-2023 Eosinophils/100 WBC (Bld) 0.1 % Normal . [facility] Comment on above: Performed By: #### C SFCCDIFF, CSF GLU, AERC, GS, CSF TP, CSF PCR PANEL #### [facility] [address] Automated eosinophil countOr dered By: Robert Caruso on 05-25-2023 Eosinophils (Bld) [#/Vol] 0.0 10*3/uL Normal 0.0-0.45 [facility] Comment on above: Performed By: #### C SFCCDIFF, CSF GLU, AERC, GS, CSF TP, CSF PCR PANEL #### [facility] [address] Automated monocyte %Ordered By: Robert Caruso on 05-25-2023 Monocytes/100 WBC (Bld) 3.9 % Normal . [facility] Comment on above: Performed By: #### C SFCCDIFF, CSF GLU, AERC, GS, CSF TP, CSF PCR PANEL #### [address] Automated neutrophil %Ordere d By: Robert Caruso on 05-25-2023 Neutrophils/100 WBC (Bld) 80.0 % Normal . [facility] Comment on above: Performed By: #### C SFCCDIFF, CSF GLU, AERC, GS, CSF TP, CSF PCR PANEL #### [facility] [address] [place] [address] Barbiturates [Presence] in U rine by Screen methodOrdered By: Robert Caruso on 05-25-2023 Barbiturates Screen Ql (U) Negative Negative [facility] Benzodiazepines Screen Ql (U )Ordered By: Robert Caruso on 05-25-2023 Benzodiazepines Ql (U) Negative Negative [facility] Benzoylecgonine [Presence] i n Urine by Screen methodOrdered By: Robert Caruso on 05-25-2023 Benzoylecgonine Screen Ql (U) Negative Negative [facility] Bilirubin.total [Mass/volume ] in Serum or PlasmaOrdered By: Robert Caruso on 05-25-2023 Bilirubin [Mass/Vol] 0.8 mg/dL Normal 0.3-1.0 [facility] Comment on above: Performed By: #### C SFCCDIFF, CSF GLU, AERC, GS, CSF TP, CSF PCR PANEL #### [facility] [address] [place] [address] [place] Calcium [Mass/volume] in Ser um or PlasmaOrdered By: Robert Caruso on 05-25-2023 Calcium [Mass/Vol] 10.1 mg/dL Normal 8.6-10.3 [facility] Comment on above: Performed By: #### C SFCCDIFF, CSF GLU, AERC, GS, CSF TP, CSF PCR PANEL #### [facility] [address] Cannabinoids [Presence] in U rine by Screen methodOrdered By: Robert Caruso on 05-25-2023 Cannabinoids Screen Ql (U) Negative Negative [facility] Comment on above: These are unconfirme d results and should not be used for legal purposes. Drug Cut-Off Concentration: AMPH 1000 ng/mL GABRIELA 200 ng/mL SIVA 200 ng/mL COCM 300 ng/mL OP 300 ng/mL PCP 25 ng/mL THC 20 ng/mL Carbon dioxide, total [Moles /volume] in Serum or PlasmaOrdered By: Robert Caruso on 05-25-2023 CO2 [Moles/Vol] 29.6 mmol/L Normal 21.0-31.0 [facility] Comment on above: Performed By: #### C SFCCDIFF, CSF GLU, AERC, GS, CSF TP, CSF PCR PANEL #### [facility] [address] [place] [address] [place] Chloride [Moles/volume] in S anupam or PlasmaOrdered By: Robert Caruso on 05-25-2023 Chloride [Moles/Vol] 102 mmol/L Normal 98-107 [facility] Comment on above: Performed By: #### C SFCCDIFF, CSF GLU, AERC, GS, CSF TP, CSF PCR PANEL #### [facility] [address] Complete Blood Count Auto Di ffon 05-25-2023 Mean Corpuscular HGB Conc 34.0 g/dL Normal 32.0-35.0 [facility] Comment on above: Performed By: #### C SFCCDIFF, CSF GLU, AERC, GS, CSF TP, CSF PCR PANEL #### [address] Monocytes/100 WBC (Bld) 17.76 % Normal 0.00-20.00 [facility] Comment on above: Performed By: #### C SFCCDIFF, CSF GLU, AERC, GS, CSF TP, CSF PCR PANEL #### [address] NRBC% 0.0 /100{WBC} Normal 0-0.5 [facility] Comment on above: Performed By: #### C SFCCDIFF, CSF GLU, AERC, GS, CSF TP, CSF PCR PANEL #### [address] Comprehensive Metabolic Pane arjun 05-25-2023 Albumin [Mass/Vol] 4.4 g/dL Normal 3.5-5.7 [facility] Comment on above: Performed By: #### C SFCCDIFF, CSF GLU, AERC, GS, CSF TP, CSF PCR PANEL #### [address] Creatinine Clr Calc Pharmacy 59.72 Normal [facility] Comment on above: Result Comment: PERF ORMED BY: [place] [address] PATHOLOGIST WELDER OPERATOR ELE SPRING M.D. Performed By: #### C SFCCDIFF, CSF GLU, AERC, GS, CSF TP, CSF PCR PANEL #### [address] GFR/1.73 sq M.predicted MDRD (S/P/Bld) [Vol rate/Area] mL/min/{1.73_m2} Normal [facility] Comment on above: Performed By: #### C SFCCDIFF, CSF GLU, AERC, GS, CSF TP, CSF PCR PANEL #### [place] [address] [place] Creatinine [Mass/volume] in Serum or PlasmaOrdered By: Robert Caruso on 05-25-2023 Creatinine [Mass/Vol] 0.76 mg/dL Normal 0.60-1.20 [facility] Comment on above: Performed By: #### C SFCCDIFF, CSF GLU, AERC, GS, CSF TP, CSF PCR PANEL #### [address] Drug Screen,Urineon 05-25-19 24 Amphetamine Screen,Urine Negative Normal Negative [facility] Comment on above: Performed By: #### U HCG, URDS #### [address] Barbiturate Screen,Urine Negative Normal Negative [facility] Comment on above: Performed By: #### U HCG, URDS #### [address] Benzodiazepines Screen,Urine Negative Normal Negative [facility] Comment on above: Performed By: #### U HCG, URDS #### [address] Cannabinoid Screen,Urine Negative Normal Negative [facility] Comment on above: Result Comment: Thes e are unconfirmed results and should not be used for legal purposes. Drug Cut-Off Concentration: AMPH 1000 ng/mL GABRIELA 200 ng/mL SIVA 200 ng/mL COCM 300 ng/mL OP 300 ng/mL PCP 25 ng/mL THC 20 ng/mL PERFORMED BY: [place] [address] PATHOLOGIST WELDER OPERATOR ELE SPRING M.D. Performed By: #### U HCG, URDS #### [address] Cocaine Screen,Urine Negative Normal Negative [facility] Comment on above: Performed By: #### U HCG, URDS #### [address] Opiate Screen,Urine Negative Normal Negative [facility] Comment on above: Performed By: #### U HCG, URDS #### [place] [address] [place] Phencyclidine Screen,Urine Negative Normal Negative [facility] Comment on above: Performed By: #### U HCG, URDS #### [facility] [address] [place] [address] ECG 12 lead ECGon 05-25-2023 ECG 12 lead ECG [facility] [place] [address] [place] [address] Electrocardiograph Report Signed Patient: Donnie Bullock MR#: [id number] [birth year] : 1955 Acct:[id number] Age/Sex: 67 / F ADM Date: 05/25/23 Loc: Room: [address] [place] [address] Type: ADM IN Attending Dr: Sridhar Hoffman [...] previous ECGs available Confirmed by Fidel Flood ([id number]) on 05/25/2023 5:09:43 PM Referred By: Electronically Signed By:Fidel Flood Transcribed By: MUS Signed By Fidel Flood MD 05/25/23 1709 Normal [facility] Erythrocyte distribution wid th [Ratio] by Automated countOrdered By: Robert Caruso on 05-25-2023 Erythrocyte distribution width (RBC) [Ratio] 12.9 % Normal 11.9-15.3 [facility] Comment on above: Performed By: #### C SFCCDIFF, CSF GLU, AERC, GS, CSF TP, CSF PCR PANEL #### [facility] [address] [place] [address] Erythrocytes [#/volume] in B lood by Automated countOrdered By: Robert Caruso on 05-25-2023 RBC (Bld) [#/Vol] 4.74 10*6/uL Normal 3.60-5.00 [facility] Comment on above: Performed By: #### C SFCCDIFF, CSF GLU, AERC, GS, CSF TP, CSF PCR PANEL #### [facility] [address] Ethanol [Mass/volume] in Ser um or PlasmaOrdered By: Robert Caruso on 05-25-2023 Ethanol [Mass/Vol] mg/dL Normal [facility] Comment on above: Performed By: #### C SFCCDIFF, CSF GLU, AERC, GS, CSF TP, CSF PCR PANEL #### [facility] [address] Ethanol [Mass/Vol] TNP [facility] Comment on above: Test not performed Ethyl Alcohol Profileon Percent Ethanol Not performed Normal [facility] Comment on above: Result Comment: PERF ORMED BY: [place] [address] PATHOLOGIST WELDER OPERATOR ELE SPRING M.D. Performed By: #### C SFCCDIFF, CSF GLU, AERC, GS, CSF TP, CSF PCR PANEL #### [facility] [address] Glucose [Mass/volume] in Ser um or PlasmaOrdered By: Robert Caruso on 05-25-2023 Glucose [Mass/Vol] 120 mg/dL High 70-100 [facility] Comment on above: ADA recommended refe rence rangeRandom Glucose Reference Range is dependent on time and content of last meal. Glucose of more than 200 mg/dL in a nonstressed, ambulatory subject supports the diagnosis of Diabetes Mellitus. Result Comment: [place] om Glucose Reference Range is dependent on time and content of last meal. Glucose of more than 200 mg/dL in a nonstressed, ambulatory subject supports the diagnosis of Diabetes Mellitus. ADA recommended reference range Performed By: #### C SFCCDIFF, CSF GLU, AERC, GS, CSF TP, CSF PCR PANEL #### [facility] [address] HCG ( test) IA.rapi d Ql (U)Ordered By: Robert Caruso on 05-25-2023 HCG ( test) Ql (U) Negative [facility] HCG,Urineon 05-25-2023 Beta HCG ( test) Ql (U) Negative Normal [facility] Comment on above: Result Comment: PERF ORMED BY: [place] [address] PATHOLOGIST WELDER OPERATOR ELE SPRING M.D. Performed By: #### U HCG, URDS #### [address] Hematocrit [Volume Fraction] of Blood by Automated countOrdered By: Robert Caruso on 05-25-2023 Hematocrit (Bld) [Volume fraction] 41.6 % Normal 34.0-46.4 [facility] Comment on above: Performed By: #### C SFCCDIFF, CSF GLU, AERC, GS, CSF TP, CSF PCR PANEL #### [address] Hemoglobin [Mass/volume] in BloodOrdered By: Robert Caruso on 05-25-2023 Hemoglobin (Bld) [Mass/Vol] 14.1 g/dL Normal 11.8-15.4 [facility] Comment on above: Performed By: #### C SFCCDIFF, CSF GLU, AERC, GS, CSF TP, CSF PCR PANEL #### [place] [address] [place] Leukocytes [#/volume] correc gage for nucleated erythrocytes in Blood by Automated counOrdered By: Robert Caruso on 05-25-2023 WBC corrected for nucl RBC Auto (Bld) [#/Vol] 7.0 10*3/uL 3.8-11.6 [facility] Leukocytes [#/volume] in Blo od by Automated countOrdered By: Robert Caruso on 05-25-2023 WBC (Bld) [#/Vol] 7.0 10*3/uL Normal 3.8-11.6 [facility] Comment on above: Performed By: #### C SFCCDIFF, CSF GLU, AERC, GS, CSF TP, CSF PCR PANEL #### [facility] [address] Lymphocytes [#/volume] in Bl ood by Automated countOrdered By: Robert Caruso on 05-25-2023 Lymphocytes (Bld) [#/Vol] 1.1 10*3/uL Normal 1.00-4.8 [facility] Comment on above: Performed By: #### C SFCCDIFF, CSF GLU, AERC, GS, CSF TP, CSF PCR PANEL #### [address] Lymphocytes/100 leukocytes i n Blood by Automated countOrdered By: Robert Caruso on 05-25-2023 Lymphocytes/100 WBC (Bld) 15.5 % Normal . [facility] Comment on above: Performed By: #### C SFCCDIFF, CSF GLU, AERC, GS, CSF TP, CSF PCR PANEL #### [address] MCH [Entitic mass] by Automa gage countOrdered By: Robert Caruso on 05-25-2023 MCH (RBC) [Entitic mass] 29.9 pg Normal 24.7-34.3 [facility] Comment on above: Performed By: #### C SFCCDIFF, CSF GLU, AERC, GS, CSF TP, CSF PCR PANEL #### [address] MCHC Auto (RBC) [Mass/Vol]Or dered By: Robert Caruso on 05-25-2023 MCHC (RBC) [Mass/Vol] 34.0 g/dL 32.0-35.0 [facility] MCV [Entitic volume] by Auto mated countOrdered By: Robert Caruso on 05-25-2023 MCV (RBC) [Entitic vol] 87.8 fL Normal 80-100 [facility] Comment on above: Performed By: #### C SFCCDIFF, CSF GLU, AERC, GS, CSF TP, CSF PCR PANEL #### [address] Monocyte distribution width [Entitic volume] in Blood by AutomatedOrdered By: Robert Caruso on 05-25-2023 Monocyte distribution width Auto (Bld) [Entitic vol] 17.76 % 0.00-20.00 [facility] Neutrophils [#/volume] in Bl ood by Automated countOrdered By: Robert Caruso on 05-25-2023 Neutrophils (Bld) [#/Vol] 5.6 10*3/uL Normal 1.8-7.7 [facility] Comment on above: Performed By: #### C SFCCDIFF, CSF GLU, AERC, GS, CSF TP, CSF PCR PANEL #### [facility] [address] No Panel InformationOrdered By: Robert Caruso on 05-25-2023 Estimated GFR (CKD-EPI) > 60.0 mL/Min [facility] Creatinine Clearance (Chem 59.72 [facility] Nucleated erythrocytes [Pres ence] in Blood by Automated countOrdered By: Robert Caruso on 05-25-2023 Nucleated RBC Auto Ql (Bld) 0.0 /100{WBC} 0-0.5 [facility] Opiates [Presence] in Urine by Screen methodOrdered By: Robert Caruso on 05-25-2023 Opiates Screen Ql (U) Negative Negative [facility] Phencyclidine Screen Ql (U)O rdered By: Robert Caruso on 05-25-2023 Phencyclidine Ql (U) Negative Negative [facility] Platelet mean volume [Entiti c volume] in Blood by Automated countOrdered By: Robert Caruso on 05-25-2023 Platelet mean volume (Bld) [Entitic vol] 7.9 fL Normal 6.3-10.7 [facility] Comment on above: Performed By: #### C SFCCDIFF, CSF GLU, AERC, GS, CSF TP, CSF PCR PANEL #### [facility] [address] Platelets [#/volume] in Bloo d by Automated countOrdered By: Robert Caruso on 05-25-2023 Platelets (Bld) [#/Vol] 292 10*3/uL Normal 150-450 [facility] Comment on above: Performed By: #### C SFCCDIFF, CSF GLU, AERC, GS, CSF TP, CSF PCR PANEL #### [facility] [address] Potassium [Moles/volume] in Serum or PlasmaOrdered By: Robert Caruso on 05-25-2023 Potassium [Moles/Vol] 3.7 mmol/L Normal 3.5-5.1 [facility] Comment on above: Performed By: #### C SFCCDIFF, CSF GLU, AERC, GS, CSF TP, CSF PCR PANEL #### [address] Protein [Mass/volume] in Ser um or PlasmaOrdered By: Robert Caruso on 05-25-2023 Protein [Mass/Vol] 7.3 g/dL Normal 6.4-8.9 [facility] Comment on above: Performed By: #### C SFCCDIFF, CSF GLU, AERC, GS, CSF TP, CSF PCR PANEL #### [address] Serum globulin measurement b y calculation (mass/volume)Ordered By: Robert Caruso on 05-25-2023 Globulin (S) [Mass/Vol] 2.9 g/dL Normal [facility] Comment on above: Performed By: #### C SFCCDIFF, CSF GLU, AERC, GS, CSF TP, CSF PCR PANEL #### [facility] [address] [place] [address] Serum or plasma albumin/glob ulin mass ratioOrdered By: Robert Caruso on 05-25-2023 Albumin/Globulin [Mass ratio] 1.5 {ratio} Normal [facility] Comment on above: Performed By: #### C SFCCDIFF, CSF GLU, AERC, GS, CSF TP, CSF PCR PANEL #### [address] Serum or plasma anion gap de terminationOrdered By: Robert Caruso on 05-25-2023 Anion gap [Moles/Vol] 10.1 mmol/L Normal 6.0-15.0 [facility] Comment on above: Performed By: #### C SFCCDIFF, CSF GLU, AERC, GS, CSF TP, CSF PCR PANEL #### [facility] [address] [place] [address] [place] Sodium [Moles/volume] in Ser um or PlasmaOrdered By: Robert Caruso on 05-25-2023 Sodium [Moles/Vol] 138 mmol/L Normal 136-145 [facility] Comment on above: Performed By: #### C SFCCDIFF, CSF GLU, AERC, GS, CSF TP, CSF PCR PANEL #### [facility] [address] Urea nitrogen [Mass/volume] in Serum or PlasmaOrdered By: Robert Caruso on 05-25-2023 Urea nitrogen [Mass/Vol] 12 mg/dL Normal 7-25 [facility] Comment on above: Performed By: #### C SFCCDIFF, CSF GLU, AERC, GS, CSF TP, CSF PCR PANEL #### [facility] [address] [place] [address] [place] .Fentanyl Scrn wo Conf,Uron 05-20-2023 Ur Fentanyl Scrn Negative Normal NEG <1.0 [facility] Comment on above: Performed By: #### C [id number] #### [place] [address] Ur Fentanyl Scrn Qnt 0.10 ng/mL Normal <=0.99 [facility] Comment on above: Performed By: #### C [id number] #### [place] [address] .eGFRon 05-20-2023 GFR/1.73 sq M.predicted MDRD (S/P/Bld) [Vol rate/Area] mL/min/{1.73_m2} Normal >=60 [facility] Comment on above: Result Comment: [facility] have implemented the eGFR calculation [...] years Performed By: #### E GFR #### [place] [address] CBC w/ Diffon 05-20-2023 Erythrocyte distribution width (RBC) [Ratio] 13.2 % Normal 11.6-14.8 [facility] Comment on above: Performed By: #### C BC #### [place] [id number] Hematocrit (Bld) [Volume fraction] 40.9 % Normal 36.0-46.0 [facility] Comment on above: Performed By: #### C BC #### [place] [id number] Hemoglobin (Bld) [Mass/Vol] 13.9 g/dL Normal 12.0-16.0 [facility] Comment on above: Performed By: #### C BC #### [address] [address] MCH (RBC) [Entitic mass] 30.1 pg Normal 27.0-35.0 [facility] Comment on above: Performed By: #### C BC #### [place] [id number] MCHC 34.1 % Normal 31.0-37.0 [facility] Comment on above: Performed By: #### C BC #### [address] [address] MCV (RBC) [Entitic vol] 88.2 fL Normal 80.0-100.0 B [facility] Comment on above: Performed By: #### C BC #### [address] [address] Platelet 250 x10*3/mcL Normal 150-450 [facility] Comment on above: Performed By: #### C BC #### [address] [address] Platelet mean volume (Bld) [Entitic vol] 7.6 fL Normal 6.7-10.6 [facility] Comment on above: Performed By: #### C BC #### [address] [address] RBC 4.63 x10*6/mcL Normal 3.80-5.20 [facility] Comment on above: Performed By: #### C BC #### [address] [address] WBC 5.6 x10*3/mcL Normal 4.5-11.0 [facility] Comment on above: Performed By: #### C BC #### [address] [address] CMPon 05-20-2023 Albumin [Mass/Vol] 4.5 g/dL Normal 3.2-4.9 [facility] Comment on above: Performed By: #### C OMP #### [address] [address] Albumin/Globulin [Mass ratio] 1.4 {ratio} Normal 1.1-2.2 [facility] Comment on above: Performed By: #### C OMP #### [address] [address] Alk Phos 47 IU/L Normal 32-91 [facility] Comment on above: Performed By: #### C OMP #### [address] [address] ALT [Catalytic activity/Vol] 18 U/L Normal 14-54 [facility] Comment on above: Performed By: #### C OMP #### [address] [address] Anion gap [Moles/Vol] 14 mmol/L Normal 7-17 [facility] Comment on above: Performed By: #### C OMP #### [address] [address] AST [Catalytic activity/Vol] 28 U/L Normal 15-41 [facility] Comment on above: Performed By: #### C OMP #### [address] [address] Bili Total 0.8 mg/dL Normal 0.3-1.2 [facility] Comment on above: Performed By: #### C OMP #### [address] [address] Calcium [Mass/Vol] 10.1 mg/dL Normal 8.5-10.3 [facility] Comment on above: Performed By: #### C OMP #### [address] [address] Chloride [Moles/Vol] 100 mmol/L Normal 98-110 [facility] Comment on above: Performed By: #### C OMP #### [address] [address] CO2 [Moles/Vol] 27 mmol/L Normal 22-32 [facility] Comment on above: Performed By: #### C OMP #### [address] [place] [address] Creatinine [Mass/Vol] 0.96 mg/dL Normal 0.44-1.03 [facility] Comment on above: Performed By: #### C OMP #### [address] [place] [address] Glucose [Mass/Vol] 116 mg/dL High 70-99 [facility] Comment on above: Performed By: #### C OMP #### [address] [place] [address] Potassium [Moles/Vol] 4.0 mmol/L Normal 3.4-4.8 [facility] Comment on above: Performed By: #### C OMP #### [address] [address] Protein [Mass/Vol] 7.8 g/dL Normal 6.5-8.1 [facility] Comment on above: Performed By: #### C OMP #### [address] [address] Sodium [Moles/Vol] 137 mmol/L Normal 133-142 [facility] Comment on above: Performed By: #### C OMP #### [address] [address] Urea nitrogen [Mass/Vol] 13 mg/dL Normal 8-26 [facility] Comment on above: Performed By: #### C OMP #### [address] [address] Urea nitrogen/Creatinine [Mass ratio] 13.5 mg/mg Normal 10.0-20.0 [facility] Comment on above: Performed By: #### C OMP #### [address] [address] [address] Brain w/o Contraston 0 CT Brain [...] or other acute finding. Radiation Dose Estimate: CTDI(mGy):0.950965 / / / kVp:120.463122 / mAs:0.235484 / / / DLP(mGy-cm):5.489180Y maureen Part: Head CTDI(mGy):44.433519 / / / kVp:120.183615 / mAs:182.369920 / / / DLP(mGy-cm):813.78087 7Body Part: Head Final Dictated by: Tremayne Butler MD Dictated DT/TM: 05.20.2023 2:48 pm Signed by: Tremayne Butler MD Signed (Electronic Signature): 05.20.2023 2:50 pm (If Report Is Signed, Electronically Signed in Other Vendor System) Normal [facility] Diff Autoon 05-20-2023 Baso Absolute 0.0 x10*3/mcL Normal 0.0-0.2 [facility] [place] Comment on above: Performed By: #### . Automated Diff #### [address] [address] Basophils/100 WBC (Bld) 0.5 % Normal 0.0-1.5 B [facility] Comment on above: Performed By: #### . Automated Diff #### [address] [address] Eos Absolute 0.0 x10*3/mcL Normal 0.0-0.4 [facility] Comment on above: Performed By: #### . Automated Diff #### [address] [address] Eosinophils/100 WBC (Bld) 0.4 % Normal 0.0-5.4 [facility] Comment on above: Performed By: #### . Automated Diff #### [address] [address] Lymph Absolute 1.3 x10*3/mcL Normal 1.0-4.8 [facility] Comment on above: Performed By: #### . Automated Diff #### [address] [address] Lymphocytes/100 WBC (Bld) 22.8 % Low 27.2-40.8 [facility] Comment on above: Performed By: #### . Automated Diff #### [address] [address] [place] Absolute 0.3 x10*3/mcL Normal 0.1-1.1 [facility] [place] Comment on above: Performed By: #### . Automated Diff #### [address] [address] Monocytes/100 WBC (Bld) 5.2 % Normal 3.7-11.9 [facility] Comment on above: Performed By: #### . Automated Diff #### [address] [address] Neutro Absolute 4.0 x10*3/mcL Normal 1.8-7.7 [facility] Comment on above: Performed By: #### . Automated Diff #### [address] [address] Neutro Auto 71.1 % High 47.2-70.8 [facility] Comment on above: Performed By: #### . Automated Diff #### [address] [address] ED Clinical Summaryon 2023 ED Clinical Summary [address] [id number] ED Clinical Summary Person Information Name: Donnie Bullock/[facility] Age: 67 Years : 1955 Sex: Female PCP: Remigio Simpson MD Marital Status: Phone: Race: White Ethnicity: Not or Language: Maltese Visit Reason: Psychiatric screening exam; psych screen Acuity: 2 Enc Type: Emergency Med Service: Emergency Medicine Arrival: 05/20/2023 13:12:08 Discharge: 05/20/2023 17:38:00 LOS: 000 04:26 Checkin: 05/20/2023 13:12:08 Checkout: 05/20/2023 17:38:00 Dispo Type: Home or Self Care Address: [address] [place], [place] [address] [id number] Provider Notes: Diagnosis: 1:Encounter for medical screening [...] range between ( 27.2 and 40.8 ) [place] Auto: 5.2 % -- Normal range between [...] range between ( 36.0 and 46.0 ) [place] Absolute: 0.3 x10 MCH: 30.1 pg -- [...] Address: When: Remigio Simpson [address] [place] [phone] Business (1) Within 1 week Discharge Orders: Discharge Patient 05/20/23 17:30:00 EST, Discharge to Home, Self Patient Education Information: Anxiety Reaction [facility] Poison Help line: . [facility] Hotline: [place] Tobacco Quit Line: [facility] ([place], [place]) [address]: [phone] [place], [place]) [address]: (more content not included)... Normal [facility] ED Note-Nursingon 05-20-2023 ED Note-Nursing Patients reports patient had covid 04/21/23 and most of her symptoms are stemming from that; increased memory loss, confusion, weight loss, panic attacks. Patient did take Paxlovid. Patient was seen at [facility] on Wednesday and taken off Xanax as they felt her hallucinations could be from that, and they prescribed hydroxizine. Patient appears anxious upon broke man and tearful at times. Patient denies SI and HI but is frustrated that she is having these issues and is not her normal self. Electronically signed by Odalys Munroe 05/20/23 14:33 EST Normal [facility] ED Note-Physicianon 05-20-19 ED Note-Physician Chief [...] High Lymph Auto 05/20/23 15:21 22.8 Low [place] Auto 05/20/23 15:21 5.2 Eos Auto 05/20/23 15:21 0.4 Basophil Auto 05/20/23 15:21 0.5 Neutro Absolute 05/20/23 15:21 4.0 Lymph Absolute 05/20/23 15:21 1.3 [place] Absolute 05/20/23 15:21 0.3 Eos Absolute 05/20/23 [...] By: Tremayne Butler MD Electronically signed by [place] Sherri ROGERS 05/25/23 20:00 EST Normal [facility] ED Note-Physician Chief Complaint pt was [...] a CT head and have social media director speak with the patient she was sent in by her therapist that she describes it Sign out to Dr. Hernandez at the end of my shift for disposition and social media director recommendation Assessment/Plan Psychiatric screening exam (Complaint of) [...] MD / (more content not included)... Normal [facility] Ethanolon 05-20-2023 Ethanol, Plasma <10 Normal <=9 [facility] Comment on above: Result Comment: To c onvert mg/dL to g/dL, divide result by 1,000. Legal limit of intoxication is 80 mg/dL (0.08 g/dL). Performed By: #### A LC #### [place] [address] UDS Compon 05-20-2023 Creatinine [Mass/Vol] 100.2 mg/dL Normal Bl [facility] Comment on above: Performed By: #### C [id number] #### [address] [address] Ur Amph Scrn Negative Normal NEG = <1000 [facility] Comment on above: Performed By: #### C [id number] #### [address] [address] Ur Gabriela Scrn Negative Normal NEG = <200 [facility] Comment on above: Performed By: #### C D:[id number] #### [address] [address] Ur Benzodia Scrn Negative Normal NEG = <200 [facility] [place] Comment on above: Performed By: #### C D:[id number] #### [address] [address] Ur Cannab Scrn Negative Normal NEG = <50 [facility] Comment on above: Performed By: #### C D:[id number] #### [address] [address] Ur Cocaine Scrn Negative Normal NEG = <300 [facility] Comment on above: Performed By: #### C D:[id number] #### [address] [address] Ur Methadone Scn Negative Normal NEG = <300 [facility] [place] Comment on above: Performed By: #### C D:[id number] #### [address] [address] Ur Opiate Scrn Negative Normal NEG = <300 [facility] Comment on above: Performed By: #### C D:[id number] #### [address] [address] Ur Oxy Screen Negative Normal NEG = <100 [facility] Comment on above: Performed By: #### C D:[id number] #### [address] [address] Ur Oxy Scrn Qnt 9 ng/mL Normal <=99 [facility] Comment on above: Performed By: #### C D:[id number] #### [address] [address] Ur PCP Scrn Negative Normal NEG = <25 [facility] Comment on above: Performed By: #### C D:[id number] #### [address] [address] UA pH 7.0 Normal 4.5 - 7.8 [facility] Comment on above: Performed By: #### C D:[id number] #### [address] [address] UA Spec Grav 1.013 Normal 1.003-1.035 [facility] Comment on above: Performed By: #### C D:[id number] #### [address] [address] Outside Colonoscopyon 2022 Outside Colonoscopy [id number]. 00CD:127 [facility] Reminderson 01-28-2023 Reminders - From: Sarah Griffiths LPN To: Marilu - Clinical; Sent: 01/28/2023 13:00:59 EDT Show up: 12/27/2032 07:00:00 EDT Subject: colonoscopy recall Due Date/Time: 01/27/2033 07:00:00 EDT Reminder/Recall Patient due for screening colonoscopy 01/27/2033. [facility] Consent for Procedure/Surger yon 01-12-2023 Consent for Procedure/Surgery [id number] .00CD:127 [facility] Ambulatory Visit Summaryon 0 01-08-2023 [...] longer receiving treatment for. Carpal tunnel Normal [facility] RAD - CT Reporton 01-07-2023 RAD - CT Report [id number] .00CD:127 Normal [facility] Physician Referralon 023 Physician Referral [id number] .00CD:127 Normal [facility] CBC AUTO DIFFon 09-10-2022 BASO # 0.0 103/ul Normal 0.0-0.1 [facility] Comment on above: Performed By: #### C BC #### [facility] [address] [place] [address] Dr. Jess Marie Basophils/100 WBC (Bld) 0.4 % Normal 0.2-2.0 [facility] Comment on above: Performed By: #### C BC #### [facility] [address] [place] [address] Dr. Jess Marie EO # 0.0 103/ul Normal 0.0-0.7 [facility] Comment on above: Performed By: #### C BC #### [facility] [address] [place] [address] Dr. Jess Marie Eosinophils/100 WBC (Bld) 0.4 % Critically low 0.9-7.0 [facility] Comment on above: Performed By: #### C BC #### [facility] [address] [place] [address] Dr. Jess Marie Erythrocyte distribution width (RBC) [Ratio] 12.5 % Normal 11.0-15.0 [facility] Comment on above: Performed By: #### C BC #### [facility] [address] [place] [address] Dr. Jess Marie Hematocrit (Bld) [Volume fraction] 43.1 % Normal 36.0-48.0 [facility] Comment on above: Performed By: #### C BC #### [facility] [address] [place] [address] Dr. Jess Marie Hemoglobin (Bld) [Mass/Vol] 14.0 g/dL Normal 12.0-16.0 [facility] Comment on above: Performed By: #### C BC #### [facility] [address] [place] [address] Dr. Jess Marie IG # 0.01 10e3/ul Normal 0.00-0.03 [facility] Comment on above: Performed By: #### C BC #### [facility] [address] [place] [address] Dr. Jess Marie IG % 0.2 % Normal 0.0-0.5 [facility] Comment on above: Performed By: #### C BC #### [facility] [address] [place] [address] Dr. Jess Marie LYMPH # 1.4 103/ul Normal 1.2-3.8 [facility] Comment on above: Performed By: #### C BC #### [facility] [address] [place] [address] Dr. Jess Marie Lymphocytes/100 WBC (Bld) 26.8 % Normal 20.5-60.0 [facility] Comment on above: Performed By: #### C BC #### [facility] [address] [place] [address] Dr. Jess Marie MANUAL DIFF REQ NO Normal [facility] Comment on above: Performed By: #### C BC #### [facility] [address] [place] [address] Dr. Jess Marie MCH (RBC) [Entitic mass] 29.7 pg Normal 26.7-34.0 [facility] Comment on above: Performed By: #### C BC #### [facility] [address] [place] [address] Dr. Jess Marie MCHC (RBC) [Mass/Vol] 32.5 g/dL Normal 29.9-35.2 [facility] Comment on above: Performed By: #### C BC #### [facility] [address] [place] [address] Dr. Jess Marie MCV (RBC) [Entitic vol] 91.3 fL Normal 81.0-99.0 [facility] Comment on above: Performed By: #### C BC #### [facility] [address] [place] [address] Dr. Jess Marie MONO # 0.3 103/ul Normal 0.3-0.8 [facility] Comment on above: Performed By: #### C BC #### [facility] [address] [place] [address] Dr. Jess Marie Monocytes/100 WBC (Bld) 5.2 % Normal 1.7-12.0 [facility] Comment on above: Performed By: #### C BC #### [facility] [address] [place] [address] Dr. Jess Marie NEUT # 3.5 103/ul Normal 1.4-6.5 [facility] Comment on above: Performed By: #### C BC #### [facility] [address] [place] [address] Dr. Jess Marie Neutrophils/100 WBC (Bld) 67.0 % Normal 43.0-75.0 [facility] Comment on above: Performed By: #### C BC #### [facility] [address] [place] [address] Dr. Jess Marie Platelet mean volume (Bld) [Entitic vol] 9.7 fL Normal 9.5-13.5 [facility] Comment on above: Performed By: #### C BC #### [facility] [address] [place] [address] Dr. Jess Marie PLT 230 103/ul Normal 150-450 [facility] Comment on above: Performed By: #### C BC #### [facility] [address] [place] [address] Dr. Jess Marie RBC 4.72 106/ul Normal 4.20-5.40 [facility] Comment on above: Performed By: #### C BC #### [facility] [address] [place] [address] Dr. Jess Marie WBC 5.2 103/ul Normal 4.0-11.0 [facility] Comment on above: Performed By: #### C BC #### [facility] [address] [place] [address] [address] Jess Marie GLYCOHEMOGLOBIN A1Con 2022 ADA RECOMMENDATION SEE BELOW Normal [facility] Comment on above: Result Comment: ADA RECOMMENDED LIMIT 4.0 - 6.0 ADA THERAPEUTIC TARGET < 7.0 ACTION SUGGESTED > 7.0 Performed By: #### A 1C #### [facility] [address] [place] [address] Dr. Jess Marie Glucose [Mass/Vol] 123 mg/dL Normal [facility] Comment on above: Performed By: #### A 1C #### [facility] [address] [place] [address] Dr. Jess Marie HbA1c (Bld) [Mass fraction] 5.9 % Normal 4.5-6.2 [facility] Comment on above: Performed By: #### A 1C #### [facility] [address] [place] [address] Dr. Jess Marie LIPID PROFILEon 09-10-2022 CHOL-HDL RATIO NORM SEE BELOW Normal [facility] Comment on above: Result Comment: 3.3 - 4.4 LOW RISK 4.4 - 7.1 AVERAGE RISK 7.1 - 11.0 MODERATE RISK >11.0 HIGH RISK Performed By: #### T SH, LIVER, BMP, LIPID #### [facility] [address] [place] [address] Dr. Jess Marie Cholesterol [Mass/Vol] 267 mg/dL Critically high <=200 [facility] Comment on above: Performed By: #### T SH, LIVER, BMP, LIPID #### [facility] [address] [place] [address] Dr. Jess Marie Cholesterol in HDL [Mass/Vol] 79 mg/dL Critically high 40-60 [facility] Comment on above: Performed By: #### T SH, LIVER, BMP, LIPID #### [facility] [address] [place] [address] Dr. Jess Marie Cholesterol in LDL [Mass/Vol] 172.4 mg/dL Normal [facility] Comment on above: Performed By: #### T SH, LIVER, BMP, LIPID #### [facility] [address] [place] [address] [address] Jess Marie Cholesterol.total/Mandie sterol in HDL [Mass ratio] 3.4 {ratio} Normal [facility] Comment on above: Performed By: #### T SH, LIVER, BMP, LIPID #### [facility] [address] [place] [address] [address] Jess Marie HDL NORMAL > or = 60 mg/dl - LO W CARDIOVASCULAR RISK <40 mg/dl - HIGH CARDIOVASCULAR RISK Normal [facility] Comment on above: Performed By: #### T SH, LIVER, BMP, LIPID #### [facility] [address] [place] [address] Dr. Jess Marie LDL CALC NORMAL SEE BELOW Normal [facility] Comment on above: Result Comment: <100 mg/dl OPTIMAL 100 - 129 mg/dl NEAR OR ABOVE OPTIMAL 130 - 159 mg/dl BORDERLINE HIGH 160 - 189 mg/dl HIGH >190 mg/dl VERY HIGH Performed By: #### T SH, LIVER, BMP, LIPID #### [facility] [address] [place] [address] [address] Jess Marie Triglyceride [Mass/Vol] 78 mg/dL Normal <=150 [facility] Comment on above: Performed By: #### T SH, LIVER, BMP, LIPID #### [facility] [address] [place] [address] Dr. Jess Marie VLDL CALC 15.6 mg/dL Normal [facility] Comment on above: Performed By: #### T SH, LIVER, BMP, LIPID #### [facility] [address] [place] [address] [address] Jess Marie LIVER PROFILEon 09-10-2022 Albumin [Mass/Vol] 3.9 g/dL Normal 3.4-5.0 [facility] Comment on above: Performed By: #### T SH, LIVER, BMP, LIPID #### [facility] [address] [place] [address] Dr. Jess Marie Albumin/Globulin [Mass ratio] 0.9 {ratio} Normal [facility] Comment on above: Performed By: #### T SH, LIVER, BMP, LIPID #### [facility] [address] [place] [address] [address] Jess Marie ALP [Catalytic activity/Vol] 61 U/L Normal 46-116 [facility] Comment on above: Performed By: #### T SH, LIVER, BMP, LIPID #### [facility] [address] [place] [address] [address] Jess Marie ALT [Catalytic activity/Vol] 25 U/L Normal 14-59 [facility] Comment on above: Performed By: #### T SH, LIVER, BMP, LIPID #### [facility] [address] [place] [address] [address] Jess Marie AST [Catalytic activity/Vol] 27 U/L Normal 15-37 [facility] Comment on above: Performed By: #### T SH, LIVER, BMP, LIPID #### [facility] [address] [place] [address] Dr. Jess Marie BILI, CONJUGATED 0.1 mg/dL Normal 0.0-0.2 [facility] Comment on above: Performed By: #### T SH, LIVER, BMP, LIPID #### [facility] [address] [place] [address] Dr. Jess Marie Bilirubin [Mass/Vol] 0.7 mg/dL Normal 0.2-1.0 [facility] Comment on above: Performed By: #### T SH, LIVER, BMP, LIPID #### [facility] [address] [place] [address] Dr. Jess Marie Globulin (S) [Mass/Vol] 4.2 g/dL Normal T [facility] Comment on above: Performed By: #### T SH, LIVER, BMP, LIPID #### [facility] [address] [place] [address] Dr. Jess Marie Protein [Mass/Vol] 8.1 g/dL Normal 6.4-8.2 [facility] Comment on above: Performed By: #### T SH, LIVER, BMP, LIPID #### [facility] [address] [place] [address] Dr. Jess Marie PROF CHEM 8 (BAS METB)on Anion gap [Moles/Vol] 13.1 mmol/L Normal Th [facility] Comment on above: Performed By: #### T SH, LIVER, BMP, LIPID #### [facility] [address] [address] [address] Jess Marie Calcium [Mass/Vol] 9.6 mg/dL Normal 8.5-10.1 [facility] Comment on above: Performed By: #### T SH, LIVER, BMP, LIPID #### [facility] [address] [place] [address] [address] Jess Marie Chloride [Moles/Vol] 105 mmol/L Normal 98-107 [facility] Comment on above: Performed By: #### T SH, LIVER, BMP, LIPID #### [facility] [address] [place] [address] Dr. Jess Marie CO2 [Moles/Vol] 28.9 mmol/L Normal 21.0-32.0 [facility] Comment on above: Performed By: #### T SH, LIVER, BMP, LIPID #### [facility] [address] [address] [address] Jess Marie Creatinine [Mass/Vol] 0.62 mg/dL Normal 0.55-1.02 [facility] Comment on above: Performed By: #### T SH, LIVER, BMP, LIPID #### [facility] [address] [address] [address] Jess Marie EGFR-AF OMANI >60 Normal >=60 [facility] Comment on above: Performed By: #### T SH, LIVER, BMP, LIPID #### [facility] [address] [address] [address] Jess Marie EGFR-NON AF OMANI >60 Normal >=60 [facility] Comment on above: Performed By: #### T SH, LIVER, BMP, LIPID #### [facility] [address] [address] [address] Jess Marie Glucose [Mass/Vol] 112 mg/dL Critically high 74-106 [facility] Comment on above: Performed By: #### T SH, LIVER, BMP, LIPID #### [facility] [address] [address] [address] Jess Marie Potassium [Moles/Vol] 5.0 mmol/L Normal 3.5-5.1 [facility] Comment on above: Result Comment: spec imen slightly hemolyzed Performed By: #### T SH, LIVER, BMP, LIPID #### [facility] [address] [address] [address] Jess Marie Sodium [Moles/Vol] 142 mmol/L Normal 136-145 [facility] Comment on above: Performed By: #### T SH, LIVER, BMP, LIPID #### [facility] [address] [address] [address] Jess Marie Urea nitrogen [Mass/Vol] 15.0 mg/dL Normal 7.0-18.0 [facility] Comment on above: Performed By: #### T SH, LIVER, BMP, LIPID #### [facility] [address] [place] [address] Dr. Jess Marie Urea nitrogen/Creatinine [Mass ratio] 24.2 mg/mg Normal [facility] Comment on above: Performed By: #### T SH, LIVER, BMP, LIPID #### [facility] [address] [place] [address] Dr. Jess Marie TSHon 09-10-2022 TSH 1.518 uIU/mL Normal 0.358-3.740 [facility] Comment on above: Performed By: #### T SH, LIVER, BMP, LIPID #### [facility] [address] [place] [address] Dr. Jess Marie US CAROTID ART BILon [...] HERSON REBOLLEDO Date: 2022-09-10 12:26 Normal [facility] XR ABD FLAT_UPon 06-10-2022 XR [...] HERSON REBOLLEDO Date: 2022-06-10 08:38 Normal [facility] Covid-19 PCR ([facility])on 10-16 SARS-CoV-2 (COVID-19) RNA YYAA+probe Ql (Unsp spec) Not detected Normal NOT DETECTED [facility] Comment on above: Result Comment: This [...] consistent with SARS-CoV-2. Performed By: #### [facility] #### [facility] [address] [place] [address] Dr. Jess Marie Vital Signs Date Time Vital Sign Value Performing Clinician Faci lity 05-29-2024 08:41-0500 Body mass index (BMI) [Ratio] 27.55 kg/m2 Christopher Chandrika DO Work Phone: [facility] 05-29-2024 08:41-0500 Body weight 73.94 kg Christopher Chandrika DO Work Phone: [facility] 05-29-2024 08:41-0500 Diastolic blood pressure 84 mm[Hg] Christopher Chadnrika DO Work Phone: [facility] 05-29-2024 08:41-0500 Heart rate 79 /min Christopher Chandrika DO Work Phone: [facility] 05-29-2024 08:41-0500 SaO2% (BldA) [Mass fraction] 97 % Christopher Chandrika DO Work Phone: [facility] 05-29-2024 08:41-0500 Systolic blood pressure 136 mm[Hg] Christopher Chandrika DO Work Phone: [facility] 05-03-2024 09:38-0500 Body height 163.8 cm Herson Uribe DPM Work Phone: [facility] 05-03-2024 09:38-0500 Body mass index (BMI) [Ratio] 26.87 kg/m2 Herson Uribe DPM Work Phone: [facility] 05-03-2024 09:38-0500 Body weight 72.12 kg Herson Uribe DPM Work Phone: [facility] 04-19-2024 12:37-0500 Body weight 73.8 kg Sera Killian APRN.RIGGING ENGINEER Work Phone: [facility] 04-19-2024 12:37-0500 Diastolic blood pressure 83 mm[Hg] Sera Killian APRN.RIGGING ENGINEER Work Phone: [facility] 04-19-2024 12:37-0500 Heart rate 76 /min Sera Killian APRN.RIGGING ENGINEER Work Phone: [facility] 04-19-2024 12:37-0500 Systolic blood pressure 129 mm[Hg] Sera Killian APRN.RIGGING ENGINEER Work Phone: [facility] 03-20-2024 13:52-0500 Body mass index (BMI) [Ratio] 26.4 kg/m2 Christopher Chandrika DO Work Phone: [facility] 03-20-2024 13:52-0500 Body weight 70.85 kg Christopher Chandrika DO Work Phone: [facility] 03-20-2024 13:52-0500 Diastolic blood pressure 76 mm[Hg] Christopher Chandrika DO Work Phone: [facility] 03-20-2024 13:52-0500 Heart rate 77 /min Christopher Chandrika DO Work Phone: [facility] 03-20-2024 13:52-0500 SaO2% (BldA) [Mass fraction] 96 % Christopher Chandrika DO Work Phone: [facility] 03-20-2024 13:52-0500 Systolic blood pressure 127 mm[Hg] Christopher Chandrika DO Work Phone: [facility] 02-02-2024 09:22-0400 Body height 163.8 cm Herson Uribe DPM Work Phone: [facility] 02-02-2024 09:22-0400 Body mass index (BMI) [Ratio] 27.04 kg/m2 Herson Uribe DPM Work Phone: [facility] 02-02-2024 09:22-0400 Body weight 72.58 kg Herson Uribe DPM Work Phone: [facility] 01-25-2024 11:45-0400 Body mass index (BMI) [Ratio] 27.11 kg/m2 Christopher Chandrika DO Work Phone: [facility] 01-25-2024 11:45-0400 Body weight 72.76 kg Christopher Chandrika DO Work Phone: [facility] 01-25-2024 11:45-0400 Diastolic blood pressure 77 mm[Hg] Christopher Chandrika DO Work Phone: [facility] 01-25-2024 11:45-0400 Heart rate 73 /min Christopher Chandrika DO Work Phone: [facility] 01-25-2024 11:45-0400 SaO2% (BldA) [Mass fraction] 97 % Christopher Chandrika DO Work Phone: [facility] 01-25-2024 11:45-0400 Systolic blood pressure 125 mm[Hg] Christopher Chandrika DO Work Phone: [facility] 09-22-2023 07:30-0400 Body temperature 98 [degF] MD Remigio Simpson Work Phone: [facility] 09-22-2023 07:30-0400 Diastolic blood pressure 60 mm[Hg] MD Remigio Simpson Work Phone: [facility] 09-22-2023 07:30-0400 Heart rate 73 /min MD Remigio Simpson Work Phone: [facility] 09-22-2023 07:30-0400 Respiratory rate 18 /min MD Remigio Simpson Work Phone: [facility] 09-22-2023 07:30-0400 SaO2% (BldA) [Mass fraction] 99 % MD Remigio Simpson Work Phone: [facility] 09-22-2023 07:30-0400 Systolic blood pressure 107 mm[Hg] MD Remigio Simpson Work Phone: [facility] 09-21-2023 08:44-0400 Body height 165.1 cm MD Remigio Simpson Work Phone: [facility] 09-20-2023 08:42-0400 Body weight 67.6 kg MD Remigio Simpson Work Phone: [facility] 09-14-2023 22:32-0400 Body temperature 98 [degF] MD Remigio Simpson Work Phone: [facility] 09-14-2023 22:32-0400 Diastolic blood pressure 70 mm[Hg] MD Remigio Simpson Work Phone: [facility] 09-14-2023 22:32-0400 Heart rate 81 /min MD Remigio Simpson Work Phone: [facility] 09-14-2023 22:32-0400 Respiratory rate 18 /min MD Remigio Simpson Work Phone: [facility] 09-14-2023 22:32-0400 SaO2% (BldA) [Mass fraction] 97 % MD Remigio Simpson Work Phone: [facility] 09-14-2023 22:32-0400 Systolic blood pressure 136 mm[Hg] MD Remigio Simpson Work Phone: [facility] 09-14-2023 19:45-0400 Body height 165.1 cm MD Remigio Simpson Work Phone: [facility] 09-14-2023 19:45-0400 Body weight 66.85 kg MD Remigio Simpson Work Phone: [facility] 06-08-2023 07:30-0500 Body temperature 97.6 [degF] [facility] 06-08-2023 07:30-0500 Diastolic blood pressure 62 mm[Hg] [facility] 06-08-2023 07:30-0500 Heart rate 75 /min [facility] 06-08-2023 07:30-0500 Respiratory rate 16 /min [facility] 06-08-2023 07:30-0500 SaO2% (BldA) [Mass fraction] 97 % [facility] 06-08-2023 07:30-0500 Systolic blood pressure 110 mm[Hg] [facility] 06-07-2023 09:00-0500 Body weight 67.5 kg [facility] 06-04-2023 10:17-0500 Body height 166.37 cm [facility] 05-25-2023 14:29-0500 Diastolic blood pressure 80 mm[Hg] DO Robert Zuly Work Phone: [facility] 05-25-2023 14:29-0500 Heart rate 91 /min DO Robert Zuly Work Phone: [facility] 05-25-2023 14:29-0500 Respiratory rate 18 /min DO Robert Zuly Work Phone: [facility] 05-25-2023 14:29-0500 SaO2% (BldA) [Mass fraction] 98 % DO Robert Zuly Work Phone: [facility] 05-25-2023 14:29-0500 Systolic blood pressure 110 mm[Hg] DO Robert Zuly Work Phone: [facility] 05-25-2023 13:06-0500 Body temperature 98.3 [degF] DO Robert Zuly Work Phone: [facility] 05-25-2023 11:38-0500 Body height 165.1 cm DO Robert Zuly Work Phone: [facility] 05-25-2023 11:38-0500 Body weight 68.1 kg DO Robert Zuly Work Phone: 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, unspecified dementia severity (CMS/HCC) (Primary Dx) Start: 05-29-2024 End: 05-29-2024 ambulatory Sera Killian APRN.RIGGING ENGINEER Work Phone: Neurology Comment on above: Hello Start: 05-26-2024 End: 05-26-2024 Clinisync Result Encounter Remigio Simpson MD Work Phone: [facility] External [facility] Unsolicited Start: 05-26-2024 End: 05-26-2024 Clinisync Result Encounter Remigio Simpson MD Work Phone: [facility] Unsolicited Start: 05-26-2024 End: 05-30-2024 Telephone encounter Sera Killian APRN.RIGGING ENGINEER Work Phone: Neurology Comment on above: Called Back; Patient Question (Spouse requesting a return phone call) Start: 05-22-2024 End: 05-22-2024 Refill Sera Killian APRN.RIGGING ENGINEER Work Phone: Neurology Start: 05-15-2024 End: 05-22-2024 Telephone encounter Sera Killian APRN.RIGGING ENGINEER Work Phone: Neurology Comment on above: Patient Question; Pa tient Update (Spouse requesting to speak with nurse) Start: 05-04-2024 End: 05-04-2024 Orders Only [facility]io Simpson MD [facility] Comment on above: Generalized weakness (Primary Dx); Rapidly progressive dementia (CMS/HCC); Unsteady gait Start: 05-03-2024 End: 05-03-2024 Bamboo flowsheet Herson Uribe DPM Work Phone: [facility] Start: 05-03-2024 End: 05-03-2024 Bamboo flowsheet Herson Uribe DPM Work Phone: [facility] Start: 05-03-2024 End: 05-03-2024 Patient encounter procedure Herson Uribe DPM Work Phone: [facility] Comment on above: Dermatophytosis of n ail (Primary Dx); Dystrophic nail; Pain around toenail, right foot; Pain around toenail, left foot Start: 05-03-2024 End: 05-03-2024 ambulatory HERSON URIBE Not Available Start: 05-01-2024 End: 05-01-2024 Bamboo flowsheet Deneen Miller GLYCERIN OPERATOR Work Phone: [facility] Start: 05-01-2024 End: 05-01-2024 Bamboo flowsheet Deneen Miller GLYCERIN OPERATOR Work Phone: [facility] Start: 05-01-2024 End: 05-01-2024 ambulatory Deneen Miller GLYCERIN OPERATOR Work Phone: [facility] Comment on above: Generalized weakness (Primary Dx); Rapidly progressive dementia (CMS/HCC); Unsteady gait Start: 04-27-2024 End: 04-27-2024 Bamboo flowsheet Deneen Miller GLYCERIN OPERATOR Work Phone: [facility] Start: 04-27-2024 End: 04-27-2024 Bamboo flowsheet Deneen Miller GLYCERIN OPERATOR Work Phone: [facility] Start: 04-27-2024 End: 04-27-2024 ambulatory Deneen Miller GLYCERIN OPERATOR Work Phone: [facility] Comment on above: Generalized weakness (Primary Dx); Rapidly progressive dementia (CMS/HCC); Unsteady gait Start: 04-25-2024 End: 04-25-2024 Bamboo flowsheet Beti Tattersall GLYCERIN OPERATOR [facility] Start: 04-25-2024 End: 04-25-2024 Bamboo flowsheet Beti Tattersall GLYCERIN OPERATOR [facility] Start: 04-25-2024 End: 04-26-2024 Telephone encounter Sera Killian APRN.RIGGING ENGINEER Work Phone: Neurology Comment on above: Medication Follow-up Start: 04-25-2024 End: 04-25-2024 ambulatory Beti Chávez GLYCERIN OPERATOR [facility] Comment on above: Generalized weakness (Primary Dx); Rapidly progressive dementia (CMS/HCC); Unsteady gait Start: 04-20-2024 End: 04-20-2024 Bamboo flowsheet Deneen Miller GLYCERIN OPERATOR Work Phone: [facility] Start: 04-20-2024 End: 04-20-2024 Bamboo flowsheet Deneen Miller GLYCERIN OPERATOR Work Phone: [facility] Start: 04-20-2024 End: 04-21-2024 Telephone encounter Sera Killian APRN.RIGGING ENGINEER Work Phone: Neurology Start: 04-20-2024 End: 04-20-2024 ambulatory Deneen Miller GLYCERIN OPERATOR Work Phone: [facility] Comment on above: Generalized weakness (Primary Dx); Rapidly progressive dementia (CMS/HCC); Unsteady gait Start: 04-19-2024 End: 04-19-2024 ambulatory SERA KILLIAN Facility:[facility] Start: 04-19-2024 End: 04-19-2024 Patient encounter procedure Sera Killian APRN.RIGGING ENGINEER Work Phone: Neurology Comment on above: Lewy body dementia w ith behavioral disturbance (HCC) (Primary Dx); Other depression; RBD (REM behavioral disorder); Secondary parkinsonism, unspecified secondary Parkinsonism type (HCC); Visual hallucinations Start: 04-18-2024 End: 04-18-2024 Bamboo flowsheet Beti Cáhvez GLYCERIN OPERATOR [facility] Start: 04-18-2024 End: 04-18-2024 Bamboo flowsheet Beti Chávez GLYCERIN OPERATOR [facility] Start: 04-18-2024 End: 04-18-2024 ambulatory Beti Chávez GLYCERIN OPERATOR [facility] Comment on above: Generalized [...] 04-06-2024 End: 04-06-2024 Bamboo flowsheet Beti Tattersall GLYCERIN OPERATOR [facility] Start: 04-06-2024 End: 04-06-2024 Bamboo flowsheet Beti Tattersall GLYCERIN OPERATOR [facility] Start: 04-06-2024 End: 04-06-2024 ambulatory Beti Malhotratersall GLYCERIN OPERATOR [facility] Comment on above: Generalized weakness (Primary Dx); Rapidly progressive dementia (CMS/HCC); Unsteady gait Start: 04-04-2024 End: 04-04-2024 Bamboo flowsheet Alexandria J Flor PT Work Phone: [facility] Start: 04-04-2024 End: 04-04-2024 Bamboo flowsheet Alexandria J Flor PT Work Phone: [facility] Start: 04-04-2024 End: 04-04-2024 ambulatory Alexandria J Flor PT Work Phone: [facility] Comment on above: Generalized weakness (Primary Dx); Rapidly progressive dementia (CMS/HCC); Unsteady gait; Dizziness Start: 03-30-2024 End: 03-30-2024 ambulatory Deneen Miller GLYCERIN OPERATOR Work Phone: [facility] Comment on above: Generalized weakness (Primary Dx); Rapidly progressive dementia (CMS/HCC); Unsteady gait Start: 03-28-2024 End: 03-28-2024 Bamboo flowsheet Beti Tattersall GLYCERIN OPERATOR [facility] Start: 03-28-2024 End: 03-28-2024 Bamboo flowsheet Beti Tattersall GLYCERIN OPERATOR [facility] Start: 03-28-2024 End: 03-28-2024 ambulatory Beti Chávez GLYCERIN OPERATOR [facility] Comment on above: Generalized weakness (Primary Dx); Rapidly progressive dementia (CMS/HCC); Unsteady gait Start: 03-22-2024 End: 03-22-2024 Bamboo flowsheet Alexandria Maya Flor PT Work Phone: [facility] Start: 03-22-2024 End: 03-22-2024 Bamboo flowsheet Alexandria Francesco Flor PT Work Phone: [facility] Start: 03-22-2024 End: 03-22-2024 ambulatory Alexandria Maya Flor PT Work Phone: [facility] Comment on above: Generalized weakness (Primary Dx); Rapidly progressive dementia (CMS/HCC); Unsteady gait; Dizziness Start: 03-20-2024 End: 03-20-2024 Office outpatient visit 25 minutes Rei Cobos DO Work Phone: [facility] [address] Comment on above: 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, unspecified dementia severity (CMS/HCC) (Primary Dx); Anxiety Start: 03-20-2024 End: 03-20-2024 ambulatory FACUNDOWILLEM CHANDRIKA Not Available Start: 03-20-2024 End: 03-20-2024 ambulatory Deneen Miller GLYCERIN OPERATOR Work Phone: [facility] Comment on above: Generalized weakness (Primary Dx); Rapidly progressive dementia (CMS/HCC); Unsteady gait Start: 03-16-2024 End: 03-16-2024 ambulatory Alexandria Francesco Flor PT Work Phone: [facility] Comment on above: Generalized weakness (Primary Dx); Rapidly progressive dementia (CMS/HCC); Unsteady gait Start: 03-14-2024 End: 03-14-2024 Telephone encounter Remigio Simpson MD Work Phone: [facility] Start: 03-09-2024 End: 03-09-2024 Orders Only Remigio Simpson MD Work Phone: [facility] Start: 02-17-2024 End: 02-17-2024 Orders Only Remigio iSmpson MD Work Phone: [facility] Comment on above: DALILA (generalized anx iety disorder) (CMS/HCC) (Primary Dx) Start: 02-09-2024 End: 02-09-2024 Clinical Support Georgina Sanford PT Work Phone: [facility] Comment on above: Dizziness (Primary D x); Rapidly progressive dementia (CMS/HCC); Bilateral primary osteoarthritis of knee Start: 02-02-2024 End: 02-02-2024 Bamboo flowsheet Herson Uribe DPM Work Phone: [facility] Start: 02-02-2024 End: 02-02-2024 Bamboo flowsheet Herson Uribe DPM Work Phone: [facility] Start: 02-02-2024 End: 02-02-2024 Patient encounter procedure Herson Uribe DPM Work Phone: [facility] Comment on above: Dermatophytosis of n ail (Primary Dx); Dystrophic nail; Pain around toenail, right foot; Pain around toenail, left foot Start: 02-02-2024 End: 02-02-2024 ambulatory HERSON URIBE Not Available Start: 01-25-2024 End: 01-25-2024 Bamboo flowsheet Christopher Chandrika DO Work Phone: [facility] [address] Start: 01-25-2024 End: 01-25-2024 Bamboo flowsheet Christopher Chandrika DO Work Phone: [facility] [address] [address] Start: 01-25-2024 End: 01-25-2024 Office outpatient visit 25 minutes Christopher Chandrika DO Work Phone: [facility] [address] Comment on above: 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 Start: 11-02-2023 End: 11-02-2023 ambulatory HERSON A MARIE Not Available Start: 10-13-2023 End: 10-13-2023 ambulatory FACUNDOWILLEM CHANDRIKA Not Available Start: 10-04-2023 End: 10-04-2023 ambulatory REMIGIO SIMPSON Not Available Start: 09-30-2023 End: 09-30-2023 ambulatory Rei Cobos Facility:[facility] Start: 09-27-2023 End: 09-27-2023 ambulatory MONICA SIMONSBECCA Not Available Start: 09-15-2023 Non-patient / Non-visit MD María Elena Simpson Work Phone: [facility] Work Phone: Start: 09-14-2023 End: 09-22-2023 Evaluation and management of inpatient MD Remigio Simpson Work Phone: [address] Work Phone: Start: 09-08-2023 End: 09-08-2023 ambulatory REI COBOS Not Available Start: 09-06-2023 End: 09-06-2023 ambulatory SOSUKHWINDER MARTINEZETT Not Available Start: 08-02-2023 End: 08-02-2023 ambulatory HERSON A MARIE Not Available Start: 07-19-2023 End: 07-19-2023 ambulatory SHAIKH DENISSE Not Available Start: 06-30-2023 Clinisync Result Encounter Remigio Simpson MD Work Phone: [facility] External Department Unsolicited Start: 06-30-2023 Clinisync Result Encounter Remigio Simpson MD Work Phone: [facility] External Department Unsolicited Start: 06-30-2023 Telephone encounter Remigio zacarias MD Work Phone: [facility] Start: 06-29-2023 Orders Only Remigio Jensen Work Phone: [facility] Comment on above: Recurrent UTI (Prima ry Dx); DALILA (generalized anxiety disorder) (CMS/HCC); Neck pain; MDD (major depressive disorder), recurrent episode, mild (HCC) (CMS/HCC) Start: 06-09-2023 End: 06-09-2023 ambulatory REMIGIO SIMPSON Not Available Start: 05-25-2023 Non-patient / Non-visit [facility] Work Phone: Start: 05-25-2023 End: 06-08-2023 Evaluation and management of inpatient DO Robert Caruso Work Phone: [facility] Work Phone: Start: 05-20-2023 End: 05-20-2023 Emergency department patient visit Remigio Simpson MD Facility:[facility] Start: 01-27-2023 End: 01-28-2023 ambulatory Amor HOLLY Facility:CD:[id number] Start: 01-08-2023 End: 01-09-2023 ambulatory Amor HOLLY Facility: [facility] Start: 01-08-2023 End: 01-08-2023 Patient encounter procedure Amor HOLLY General Surgery Nill/Said [facility] Start: 12-30-2022 ambulatory Amor HOLLY Facility : [facility] Start: 09-10-2022 End: 09-11-[address] REMIGIO SIMPSON Facility:[facility] Start: 06-09-2022 End: 06-10-[address] REMIGIO SIMPSON Facility:[facility] Start: 03-12-2022 End: 03-13-[address] REMIGIO SIMPSON Facility:[facility] Start: 11-04-2021 End: 11-04-[address] REMIGIO SIMPSON Facility:[facility] Procedures Date Procedure Procedure Detail Performing Clinician Start: 05-26-2024 [facility] UA (CLEAN/CATCH) MICROSCOPIC IF INDICATE Remigio Simpson MD Work Phone: Start: 04-12-2024 [facility] UA (CLEAN/CATCH) MICROSCOPIC IF [...] Screening for malign ant neoplasm of colon [facility] Start: 2028 RSV Vaccine (1 - 1-d ose 75+ series) RSV Vaccine (1 - 1-dose 75+ series) [facility] Start: 12-28-2024 Screening for malign ant neoplasm of breast Mammogram [facility] Start: 08-01-2024 End: 08-01-2024 Patient encounter procedure 08/01/2024 9:30 AM EDT Office Visit [facility] [address] [place] [id number] Herson Uribe DPTrinity [address] [place] [address] [facility] Start: 07-27-2024 End: 07-27-2024 Patient encounter procedure 07/27/2024 10:30 AM EDT Office Visit Neurology [facility] [id number] Sera Killian APRN.RIGGING ENGINEER [address] [id number] Report Neurology Comment on above: Report Start: 07-19-2024 End: 07-19-2024 Patient encounter procedure 07/19/2024 9:30 AM EST Office Visit [facility] [address] [place] [id number] Rei Cobos DO [address] [place], [place] [address], [place] [address] [facility] Start: 06-19-2024 End: 06-19-2024 Patient encounter procedure [facility] [place] [address] Start: 06-12-2024 End: 06-12-2024 Patient encounter procedure 06/12/2024 12:00 PM EST Office Visit [facility] [place] [address] [place] [address] Rei Cobos DO [address] [place] [address] [facility] [place] [address] Start: 05-29-2024 End: 05-29-2024 Patient encounter procedure [facility] Start: 05-17-2024 Advance Directive Discussion Advance Directive Discussion [facility] Start: 05-04-2024 End: 05-04-2024 ambulatory 05/04/2024 11:30 AM EST Treatment [facility] [address] [place] [id number] Deneen Miller, GLYCERIN OPERATOR [address] [place] [address] [facility] Start: 05-03-2024 End: 05-03-2024 Patient encounter procedure [facility] Comment on above: Arrived Start: 05-01-2024 End: 05-01-2024 ambulatory 05/01/2024 7:30 AM EST Treatment [facility] [address] [place] [id number] Deneen Miller, GLYCERIN OPERATOR [address] [place] [address] [facility] Start: 04-28-2024 End: 04-28-2024 ambulatory 04/28/2024 10:00 AM EST Treatment [facility] [address] [place] [address] Alexandria Mcnair, PT [address] [place] [address] [facility] Start: 04-27-2024 End: 04-27-2024 ambulatory 04/27/2024 10:00 AM EST Treatment [facility] [address] [place] [address] Alexandria Mcnair, PT [address] [place] [address] [facility] Start: 04-25-2024 End: 04-25-2024 ambulatory 04/25/2024 10:30 AM EST Treatment [facility] [address] [place] [address] Deneen Miller, GLYCERIN OPERATOR [address] [place] [address] [facility] Start: 04-20-2024 End: 04-20-2024 ambulatory 04/20/2024 11:30 AM EST Treatment [facility] [address] [place] [address] Deneen Miller, GLYCERIN OPERATOR [address] [place] [address] [facility] Start: 04-18-2024 End: 04-18-2024 [...] Treatment [facility] [address] [place] [address] Beti Chávez PTA [facility] Start: 04-06-2024 End: 04-06-2024 ambulatory [facility] Comment on above: Arrived Start: 04-04-2024 End: 04-04-2024 ambulatory [facility] Comment on above: Arrived Start: 03-30-2024 End: 03-30-2024 ambulatory 03/30/2024 11:30 AM EST Treatment [facility] [address] [place] [address] Deneen Miller PTA [address] [place] [address] [facility] Start: 03-28-2024 End: 03-28-2024 ambulatory 03/28/2024 11:00 AM EST Treatment [facility] [address] [place] [phone] Beti Chávez PTA [facility] Start: 03-22-2024 End: 03-22-2024 ambulatory [facility] Comment on above: Arrived Start: 03-20-2024 End: 03-20-2024 Patient encounter procedure 03/20/2024 2:00 PM EST Office Visit [facility] [address] [place] [address] Rei CobosDO [address] [place], [place] [id number] [facility] Start: 03-20-2024 End: 03-20-2024 ambulatory 03/20/2024 12:30 PM EST Treatment [facility] [address] [place] [phone] Deneen Miller, GLYCERIN OPERATOR [address] [place] [address] [facility] Start: 03-16-2024 End: 03-16-2024 ambulatory 03/16/2024 12:30 PM EDT Evaluation [facility] [address] [place] [phone] Alexandria Mcnair, PT [address] [place] [address] [facility] Start: 03-14-2024 End: 03-14-2025 [...] 12:00 PM EDT Office Visit [facility] [address] [place] [phone] Rei Cobos DO [address] [place], [place] [id number] Arrived [facility] Comment on above: Arrived Start: 01-16-2024 Covid-19 Vaccine ( season) Covid-19 Vaccine () [facility] Start: 01-16-2024 Influenza vaccination Influenza Vacc ine (#1) [facility] Start: 10-24-2023 Screening for malign ant neoplasm of colon [facility] Start: 09-22-2023 [facility] Start: 09-15-[address] treatment [facility] Start: 09-14-2023 Hospital admission [facility] Start: 09-06-2023 End: 09-06-2023 Patient encounter procedure 09/06/2023 9:00 AM EDT Office Visit [facility] [address] [place] [address] Remigio Simpson MD [address] [place] [id number] [facility] Start: 06-30-2023 End: 06-30-2024 Bacteria identified in Urine by Culture Urine culture (clean catch) Microbiology Routine Dysuria Expected: 06/30/2023 (Approximate), Expires: 06/30/2024 [facility] Comment on above: Expected: 06/30/2023 (Approximate), Expires: 06/30/2024 Start: 06-30-2023 End: 06-30-2024 Urinalysis complete panel - Urine Urinalysis with reflex microscopic (clean catch) Lab Routine Dysuria Expected: 06/30/2023 (Approximate), Expires: 06/30/2024 [facility] Work Phone: Comment on above: Expected: 06/30/2023 (Approximate), Expires: 06/30/2024 Start: 06-08-2023 [facility] Start: 05-26-[address] treatment [facility] Start: 05-25-2023 Hospital admission [facility] Start: 05-25-2023 [facility] Start: 05-17-2023 Advance Directive Discussion Advance Directive Discussion [facility] Start: 03-09-2021 Pneumococcal Vaccine : 50+ (2 of 2 - PCV) Pneumococcal Vaccine: 50+ (2 of 2 - PCV) [facility] Start: 03-09-2021 Pneumococcal Vaccine : 65+ (2 of 2 - PCV) Pneumococcal Vaccine: 65+ (2 of 2 - PCV) [facility] Start: 03-09-2021 Pneumococcal Vaccine : 65+ Years (2 - PCV) Pneumococcal Vaccine: 65+ Years (2 - PCV) [facility] Start: 03-09-2021 Pneumococcal Vaccine : 65+ Years (2 of 2 - PCV) Pneumococcal Vaccine: 65+ Years (2 of 2 - PCV) [facility] Start: 2018 Screening for osteoporosis Bone Density Screening [facility] Start: 11-09-2003 Shingrix Vaccine (1 of 2) Kennedy grix Vaccine (1 of 2) [facility] Start: 1998 Diabetes Screening Diabetes Screenin g [facility] Start: 1998 Lipid panel Lipid Screening [facility] Start: 1998 Screening for malign ant neoplasm of colon [facility] Start: 1993 Screening for malign ant neoplasm of breast [facility] Start: 1972 Urine microalbumin profile DTaP,Tdap,Td Vaccine (1 - Tdap) [facility] Start: 11-09-1971 Anxiety Screening Anxiety Screening [facility] Start: 11-09-1971 Hepatitis C screening Hepatitis C Sc cory [facility] Start: 1953 Medicare Annual Well ness (AWV) Medicare Annual Wellness (AWV) [facility] Start: 1955 Screening for malign ant neoplasm of colon [facility] Patient Education [facility] Work Phone: Patient referral [facility] Work Phone: Immunizations Immunization Date Immunization Notes Care Provider [facility] 02-18-2023 Influenza, Seasonal, Quadrivalent, Adjuvanted Remigio Simpson MD Work Phone: [facility] 02-18-2023 influenza virus vacc ine, unspecified formulation Remigio Simpson MD Work Phone: [facility] 03-17-2022 SARS-CoV-2 (COVID-19 ) [id number] Amor HOLLY [facility] 02-22-2022 Influenza, High-dose Seasonal, Quadrivalent, Preservative Free Remigio Simpson MD Work Phone: [facility] 10-05-2021 SARS-CoV-2 mRNA (bfjnkamexhi-qcjj-izrubd e) vaccine Amor AVNI [facility] 03-06-2021 SARS-CoV-2 (COVID-19 ) mRNA BNT-162b2 vax Amor JANL [facility] 02-14-2021 Influenza, Seasonal, Quadrivalent, Adjuvanted Remigio Simpson MD Work Phone: [facility] 07-30-2020 SARS-CoV-2 (COVID-19 ) mRNA BNT-162b2 vax Amor MONTOYAL [facility] Comment on above: Result Comment: 2022: [id number] 07-09-2020 SARS-CoV-2 (COVID-19 ) mRNA BNT-162b2 vax Amor NILL [facility] Comment on above: Result Comment: 2022: [id number] 03-09-2020 pneumococcal polysaccharide vaccine, 23 valent Remigio Simpson MD Work Phone: [facility] 02-21-2020 Influenza, Seasonal, Quadrivalent, Adjuvanted Remigio Simpson MD Work Phone: [facility] 01-25-2019 influenza, high dose seasonal, preservative-free Remigio Simpson MD Work Phone: [facility] 02-15-2018 influenza, injectabl e, quadrivalent, preservative free Remigio Simpson MD Work Phone: [facility] 04-14-2017 influenza, seasonal, injectable, preservative free Remigio Simpson MD Work Phone: [facility] 03-15-2015 influenza, seasonal, injectable Remigio Simpson MD Work Phone: [facility] 03-04-2014 influenza, seasonal, injectable Remigio Simpson MD Work Phone: [facility] 07-20-2003 hepatitis B vaccine, adult dosage Remigio Simpson MD Work Phone: [facility] 03-20-2003 hepatitis B vaccine, pediatric or pediatric/adolescent dosage Remigio Simpson MD Work Phone: [facility] 02-16-2003 hepatitis B vaccine, pediatric or pediatric/adolescent dosage Remigio Simpson MD Work Phone: [facility] Payers Date Payer Category Payer Self-pay 2021 [facility] Health Insurance [employer] [id number] 2018 Medicare 2014 Unknown 1959 Medicare [id number] 1959 Unknown [id number] 1953 Unknown [id number] 2.16.840.1.231784.3.579.2. 593 1953 Unknown [id number] 2.16.840.1.878312.3.579.2. 593 1953 Unknown [id number] 2.16.840.1.660554.3.579.2. 593 1953 Unknown [id number] 2.16.840.1.587154.3.579.2. 593 1953 Unknown [id number] 2.16.840.1.694581.3.579.2. 727 1953 Unknown [id number] 2.16.840.1.066503.3.579.2. 727 1953 Unknown [id number] 2.16.840.1.940915.3.579.2. 727 1953 Unknown [id number] 2.16840.1.283730.3.579.2. 196 1953 Unknown [id number] 2.16840.1.719151.3.579.2. 1259 1953 Unknown [id number] 2.16840.1.961221.3.579.2. 1259 1953 Unknown [id number] 2.16.840.1.043203.3.579.2. 1259 1953 Unknown [id number] 2.16840.1.168229.3.579.2. 1259 1953 Unknown [id number] 2.16.840.1.806335.3.579.2. 1259 1953 Unknown [id number] 2.16.840.1.007664.3.579.2. 1259 1953 Unknown [id number] 2.16.840.1.172489.3.579.2. 1259 1953 Unknown [id number] 2.16.840.1.147055.3.579.2. 1259 1953 Unknown [id number] 2.16.840.1.385312.3.579.2. 1258 1953 Unknown [id number] 2.16.840.1.828675.3.579.2. 1258 1953 Unknown [id number] 2.16.840.1.579938.3.579.2. 1258 1953 Unknown [id number] 2.16.840.1.569720.3.579.2. 1258 1953 Unknown [id number] 2.16.840.1.356565.3.579.2. 1258 1953 Unknown [id number] 2.16.840.1.741760.3.579.2. 1258 1953 Unknown [id number] 2.16.840.1.315184.3.579.2. 1258 1953 Unknown [id number] 2.16.840.1.224507.3.579.2. 1258 1953 Unknown [id number] 2.16.840.1.434990.3.579.2. 1258 1953 Unknown [id number] 2.16.840.1.376448.3.579.2. 1258 1953 Unknown [id number] 2.16.840.1.254236.3.579.2. 1258 1953 Unknown [id number] 2.16.840.1.199180.3.579.2. 1258 1953 Unknown [id number] 2.16.840.1.988300.3.579.2. 1258 1953 Unknown [id number] 2.16.840.1.036163.3.579.2. 1258 1953 Unknown [id number] 2.16.840.1.882342.3.579.2. 1258 1953 Unknown [id number] 2.16.840.1.245861.3.579.2. 1259 1953 Unknown [id number] 2.16.840.1.074669.3.579.2. 1259 1953 Unknown [id number] 2.16.840.1.467044.3.579.2. 1259 1953 Unknown [id number] 2.16.840.1.773457.3.579.2. 1259 1953 Unknown [id number] 2.16.840.1.133374.3.579.2. 1259 Unknown [id number] 2.16.840.1.600316.3.579.2. 531 Unknown [id number] 2.16.840.1.597508.3.579.2. 531 Unknown [id number] 2.16.840.1.470972.3.579.2. 531 Unknown [id number] 2.16.840.1.853387.3.579.2. 531 Social History Date Type Detail Facility Start: 01-08-2023 End: 07-19-2023 Tobacco smoking status Never smoked tobacco (finding) [facility] [place] Tobacco smoking status Never [facility] [place] Start: 06-09-2023 End: 04-19-2024 Sex Assigned At Female [facility] Start: 1955 Sex Assigned At Female [facility] Start: 06-09-2023 End: 07-19-2023 Tobacco use and [...] to any clubs or organizations such as episcopalian groups, unions, fraternal or athletic groups, or [...] Never true [facility] NEGATED: Highlighted rowStart: NINF History of tobacco use Passive smoker [facility] Goals Date Patient Goal Desired Activity /State Functional Status Date Assessment Result Facility 09-22-2023 Functional status Patient at Baseline [facility] Work Phone: 01-08-2023 Functional Status N/A General Nava rgery [facility]omy Mental Status Date Assessment Result Facility 09-22-2023 Cognitive function Cognitive Sta tus Patient at Baseline [facility] Work Phone: Clinical Notes 03-12-2022 to 05-29-2024 Telephone Encounter - Ivette Kerr RN - 05/29/2024 5:01 PM ESTTelephone Encounter - Ivette Kerr RN - 05/29/2024 5:01 PM ESTTelephone Encounter - Ivette Kerr RN - 05/29/2024 1:38 PM EST Note Date & Type Note Facility 05-29-2024 Telephone encounter Note Noted. Ivette Kerr RN [facility] Work Phone: 05-29-2024 Miscellaneous Notes Noted. Ivette Kerr RN documented in this encounter [facility] 05-29-2024 Telephone encounter Note Spoke with Vimal, the patient's . Donnie was seen by her local neurologist today. Recommendations: - Continue Haldol 0.5 mg daily at bedtime until 06/08/24 then, stop. - Decrease Hydroxyzine from twice daily to once daily for a week then, stop. - Continue Aricept(Donepezil) 5 mg once daily - Follow up with local neurologist 06/30/24. - UA results are still pending. Culture results may be available this afternoon. PCP is monitoring and will start antibiotic if positive. - MRI brain disc will be picked tomorrow from [facility] and Vimal will mail it to Sera Killian APRN, RIGGING ENGINEER. - Vimal was advised to keep our office updated. Ivette Kerr RN [facility] Work Phone: 05-29-2024 Miscellaneous Notes Spoke with Vimal, the patient's . Donnie was seen by her local neurologist today. Recommendations: - Continue Haldol 0.5 mg daily at bedtime until 06/08/24 then, stop. - Decrease Hydroxyzine from twice daily to once daily for a week then, stop. - Continue Aricept(Donepezil) 5 mg once daily - Follow up with local neurologist 06/30/24. - UA results are still pending. Culture results may be available this afternoon. PCP is monitoring and will start antibiotic if positive. - MRI brain disc will be picked tomorrow from [facility] and Vimal will mail it to Sera Killian APRN, RIGGING ENGINEER. - Vimal was advised to keep our office updated. Ivette Kerr RN Spouse, Vimal LVM on [facility] Nurse Line on 05/26 @2:07P. Pt name and verified 1955. Vimal states pt is shaking bad and really anxious. Please call back at . Thank you, Rose Call to spouse he states her VH are worse, she recently saw the devil . He found her walking around with a piece of paper stating she wanted to live . She denied to him she wanted to . She is never alone He notes she has tremors and said he considered taking her to the ED. She had UA, awaiting culture. He finds her anxious. She continues the slow taper of Haldol and takes 0.5 mg at HS. I requested he provide me with the MRI brain disc. She is to see her local Neurologist on Wednesday05/29/24. Will follow up next week. Sera Killian APRN.ELIANE documented in this encounter [facility] 05-29-2024 Telephone encounter Note Spouse, Vimal LVM on [facility] Nurse Line on 05/26 @2:07P. Pt name and verified 1955. Vimal states pt is shaking bad and really anxious. Please call back at . Thank you, Rose [facility] 05-29-2024 History of Present illness Narrative Images from the original note were not included. Chief Complaint: Dementia Subjective Donnie A Elder, 68 y.o., female Patient presents today for a follow up for rapidly progressive dementia. She is accompanied by her and son. states they got a second opinion at [facility]. She was started on donepezil 5 mg. He states this is not working well for her. She is having worsening hallucinations on this. They are also tapering her off of the Haldol. He states her bilateral hand tremor has worsened as well. She is in PT for Parkinson's her states and has been doing well. He states her appetite is not as good as it was previously. She will say she is not hungry but will eat if given food. She did have a wandering instance where her states she got out. She states she went for a walk. Patient sates this has been very difficult for her because she really likes to go for walks and she is not able to on her own anymore. Her sleep is all over the place he states. Some nights she will be up 7 or 8 times. She states this is because she feels urgency in her bladder. Review of Systems Constitutional: Negative for appetite [...] and hallucinations. Medication List Accurate as of May 29, 2024 9:04 AM. If you have any questions, ask your nurse or doctor. CONTINUE taking these medications diazePAM 2 MG tablet; Commonly known as: Valium; Take 1 tablet (2 mg) by mouth 4 (four) times a day as needed for anxiety for up to 10 days donepezil 5 MG tablet; Commonly known as: Aricept haloperidol 1 MG tablet; Commonly known as: Haldol; TAKE 1/2 TABLET (0.5MG) IN THE MORNING AND TAKE 1 TABLET (1MG) AT SUPPER hydrOXYzine HCl 25 MG tablet; Commonly known as: Atarax; TAKE 1 TABLET (25 MG) BY MOUTH 4 (FOUR) TIMES A DAY NEEDED FOR ANXIETY lactulose 10 GM/15ML solution; Commonly known as: Chronulac; Take 15 mL (10 g) by mouth in the morning and 15 mL (10 g) before bedtime. mirtazapine 15 MG tablet; Commonly known as: Remeron; TAKE 1 TABLET BY MOUTH AT BEDTIME senna-docusate sodium 8.6-50 MG tablet; Commonly known as: Senokot-S Past Medical History: Diagnosis Date Abdominal pain, generalized Arthritis At moderate risk for fall Brachial neuritis or radiculitis 05/25/2014 Carpal tunnel syndrome 05/25/2014 Change in stool caliber Chronic neck pain Constipation, chronic DDD (degenerative disc disease), cervical Dementia ([facility]) Depression ([facility]) May 25 Dyslipidemia ([facility]) DALILA (generalized anxiety disorder) ([facility]) Gastroesophageal reflux disease Impaired fasting glucose Lewy body dementia ([facility]) Loss of balance Low back pain, non-specific Olecranon bursitis, right elbow Orthostatic hypotension Osteopenia of lumbar spine Parkinson's disease ([facility]) 2023 PSVT (paroxysmal supraventricular tachycardia) ([facility]) Skin cancer Vertigo Past Surgical History: Procedure Laterality Date CARPAL TUNNEL RELEASE Left 06/15/2014 MTP CARPAL TUNNEL RELEASE Right 06/29/2014 MTP DILATION AND CURETTAGE OF UTERUS 2004 EYE SURGERY HYSTERECTOMY 2008 DC REMOVE TONSILS/ADENOIDS,12+ Y/O 195 Family History Problem Relation Name Age of Onset Cancer Mother Ayla Jonas Arthritis Mother Ayla Jonas Hypertension Father Carlos Jonas Cancer Father Carlos Jonas Heart disease Sibling Arthritis Maternal Grandmother Dayna Tyesha Social History Tobacco Use Smoking status: Never Passive exposure: Never Smokeless tobacco: Never Substance Use Topics Alcohol use: Not Currently Allergies: Alprazolam Vitals: 05/29/24 0841 BP: 136/84 Pulse: 79 SpO2: 97% Body mass index is 27.55 kg/m . weight: 163 lb Neurologic exam: Mental status: Patient was sleepy [...] reflexes are 2+ and symmetric throughout. Coordination: Csnozo-rc-qoks testing and rapid alternating movements are normal Gait: Normal Review and summary of old records: Patient was seen at [facility] for altered mental status at the end [...] to be that of Lewy body dementia. Patient did have a visit with [facility] and they had recommended coming off of Haldol and starting donepezil which I think is reasonable. Plan: Okay to continue donepezil 5 mg p.o. daily Patient is being weaned off of Haldol and this will stop in approximately 5 days Patient will continue Remeron 15 mg p.o. q.h.s. We are also in the process of weaning hydroxyzine. We will hold off on further weaning of hydroxyzine until the Haldol has been out of the patient's system. The patient will stop hydroxyzine in mid June of 2024. These are being refilled by primary care [...] does not drive and should not drive. Patient has begun physical therapy for Parkinson's which I think is a good idea. Anxiety The patient has substantial anxiety and [...] mental health issues documented in this encounter [facility] 05-26-2024 Telephone encounter Note Call to spouse he states her VH are worse, she recently saw the devil . He found her walking around with a piece of paper stating she wanted to live . She denied to him she wanted to . She is never alone He notes she has tremors and said he considered taking her to the ED. She had UA, awaiting culture. He finds her anxious. She continues the slow taper of Haldol and takes 0.5 mg at HS. I requested he provide me with the MRI brain disc. She is to see her local Neurologist on Wednesday05/29/24. Will follow up next week. Sera Killian APRN.CNP [facility] 05-22-2024 Telephone encounter Note The following approved medication requests have been transmitted electronically. Requested Prescriptions Signed Prescriptions Disp Refills donepezil (ARICEPT) 5 mg tablet 30 tablet 3 Sig: Take 1 tablet by mouth daily after breakfast. Authorizing Provider: SERA KILLIAN APRN.CNP [facility] 05-22-2024 Miscellaneous Notes The following approved medication requests have been transmitted electronically. Requested Prescriptions Signed Prescriptions Disp Refills donepezil (ARICEPT) 5 mg tablet 30 tablet 3 Sig: Take 1 tablet by mouth daily after breakfast. Authorizing Provider: SERA KILLIAN APRN.CNP documented in this encounter [facility] 05-22-2024 Telephone encounter Note OG call to spouse, discussion held. We agreed to continue the taper of Haldol as originally ordered. And add Donepezil (Aricept) 5 mg daily after breakfast. Sera Killian APRN.CNP [facility] 05-22-2024 Miscellaneous Notes OG call to spouse, discussion held. We agreed to continue the taper of Haldol as originally ordered. And add Donepezil (Aricept) 5 mg daily after breakfast. Sera Killian APRN.CNP Spoke with Vimal, the patient's . He stated that Donnie's visual hallucinations do not scare her or cause agitation. There are no safety concerns. His main concern is the increase of the frequency of the hallucinations. He will keep Donnie on the current dose of Haldol until Vernon Killian APRN, RIGGING ENGINEER reviews and makes her recommendation. Donnie does [...] Ivette Kerr RN Spouse, Carlos LVM on [facility] Nurse Line on 05/15 @2:59P. Pt name and verified 1955. Carlos is requesting to speak with nurse re: pt symptoms. Hallucinations are getting worse. Please call back at . Thank you, Rose documented in this encounter [facility] 05-19-2024 Telephone encounter Note Spoke with Vimal, the patient's . He stated that Donnie's visual hallucinations do not scare her or cause agitation. There are no safety concerns. His main concern is the increase of the frequency of the hallucinations. He will keep Donnie on the current dose of Haldol until Vernon Killian APRN, RIGGING ENGINEER reviews and makes her recommendation. Donnie does have a follow up with local neurologist on 05/29/2024 and a follow up on 07/27/2024 with Sera. Ivette Kerr RN [facility] Work Phone: 05-18-2024 Telephone encounter Note Spoke [...] on Vimal's cell phone. Ivette Kerr RN [facility] 05-16-2024 Telephone encounter Note Second Attempt Voice message left for Vimal that someone from our office will attempt to reach out to him on the next business day, 05/18/2024. Advised that he may send a My Chart Message. Ivette Kerr RN [facility] 05-15-2024 Telephone encounter Note Voice message left for Vimal that someone from our office will attempt to reach out to him on the next business day to address his concerns. Ivette Kerr RN [facility] 05-15-2024 Telephone encounter Note Spouse, Carlos LVM on [facility] Nurse Line on 05/15 @2:59P. Pt name and verified 1955. Carlos is requesting to speak with nurse re: pt symptoms. Hallucinations are getting worse. Please call back at . Thank you, Rose [facility] 05-04-2024 History of Present illness Narrative requests PT specifically for Parkinson's disease. Please write order for PT to evaluate and treat with diagnosis of Lewy body dementia and Parkinson's. Please send order to PT Services in [place]. documented in this encounter [facility] 05-03-2024 History of Present illness Narrative Images [...] OF UTERUS 2004 EYE SURGERY HYSTERECTOMY 2007 DC REMOVE TONSILS/ADENOIDS,12+ Y/O 1961 Family History Family [...] Herson Uribe DPM documented in this encounter [facility] 05-03-2024 Instructions Herson Uribe DPM - 05/03/2024 9:45 AM EST As noted documented in this encounter [facility] 04-26-2024 Telephone encounter Note Call placed to to resume original taper of haloperidol from OV on 04/19 per order of provider: he would begin to give her 0.5 mg in AM and 1 mg at HS-- and continue with my original taper regimen. Reviewed taper with and encouraged him to call with any questions or concerns that arise. Francie Lira RN [facility] 04-26-2024 Miscellaneous Notes Call placed to to [...] Francie Lira RN documented in this encounter [facility] 04-25-2024 Telephone encounter Note Pt Carlos called [...] to review and advise. Francie Lira RN [facility] 04-20-2024 Telephone encounter Note Confidential email correspondence sent to spouse re: updated Haldol taper dosing as follows: Reduce to Haldol 1 mg at bedtime for two weeks, then, Reduce to Haldol 0.5 mg (1/2 of 1mg tab) at bedtime for two weeks - then stop altogether. Sera Killian APRN.CNP [facility] 04-20-2024 Miscellaneous Notes Confidential email correspondence sent to spouse re: updated Haldol taper dosing as follows: Reduce to Haldol 1 mg at bedtime for two weeks, then, Reduce to Haldol 0.5 mg (1/2 of 1mg tab) at bedtime for two weeks - then stop altogether. Sera Killian APRN.CNP documented in this encounter [facility] 04-20-2024 Telephone encounter Note Carlos called to [...] other questions or concerns. Francie Lira RN [facility] 04-20-2024 Miscellaneous Notes Carlos called to ask [...] Francie Lira RN documented in this encounter [facility] 04-19-2024 Instructions Sera Killian APRN.RIGGING ENGINEER - 04/19/2024 1:58 PM EST Dear Mrs. [...] call 911 and a trained law enforcement seal delivery vehicle team technician will respond with the equipment. A search will then be initiated, the average search time with this program has been found to be less than 30 minutes. To learn more about this program or register call the [facility] Sheriff's office at [phone] or [facility] Senior Services at [phone] ([facility]). Medical Alert System Today Donnie had difficulty recalling what number to contact in the event of an emergency. We recommend utilizing a Medical Alert System to increase safety in the home. In the event of a fall or an emergency, help is available at the push of a button. Some options for this are: [facility]: Call or visit https://MedPageToday/ & click on SeniorSandLinks tab -Mobile System. -Fall detection. -Medication reminders. -GPS monitoring. -Kale fencing option for wandering. -Checks heart rate, blood pressure, temperature, and oxygen levels. -Worn as a wristband. Life Alert: Call or visit www.lifealerthelp.Graphene Frontiers -Offers home based and mobile system. -Offers a push button for the shower. -Comes in a lanyard. Lifefone: Call or visit www.MYOS -Home based or mobile system. -Fall detection. -GPS detects location of emergency. -Water proof. -Worn as a lanyard, wristband, or offers a push button. Lifeline: Call or visit www.AddFleet -Home based & mobile system. -Fall detection. -GPS detects location of the emergency. -Water resistant; can be worn in the shower. -Worn as a wristband or lanyard. Lively: Call or visit www.Diartis Pharmaceuticals/medical-alerts -Offers mobile systems. -Offers fall detection. -Comes in a lanyard. Also compatible with [employer] Printers Inc and StudyMax. Medical Alert: Call or visit www.Vacatia -Offers home based & mobile system. -Mobile system offers GPS monitoring. -Fall detection for all systems. -Systems can be worn in the bath or shower. -Two way speaker allows you to communicate with a trained response specialist who will determine who to contact for help (family, friends, or emergency responders). -Comes in a lanyard or wristband. Medical Guardian: Call or visit www.ThirdMotionnTrakTek 3D -Offers home based and mobile system. -GPS tracking for mobile system. -Water resistant, not water proof. -Worn as a lanyard or wristband. Mobile Help: Call or visit www.Dream home renovations -Offers home based & mobile system. -Comes in a lanyard or small mobile device. UnaliWear: Call or visit www.CloudBolt Software -Home based and mobile system. -Fall detection. -GPS detects location of the emergency. -Water resistant; can be worn in the shower. -Medication reminders. -Worn as a wristband. Adding Help at Home Additional help at home can be offered through what we refer to as private duty agencies. These agencies offer services including companionship, assistance with meals, medication reminders, video control operator, transportation and personal care if needed. Services [...] to build a relationship with the caregiver. [facility] Adult Home Care: or DistalMotionramone SuperDerivatives: [facility]: (Limited services at this time) Comfort Keepers: (Services in [facility] are limited, but available) First Choice: or Home Instead: [facility] Health: [facility]: [facility] [place]: (Serves [facility]) Education & Support When an individual experiences [...] lewybodyresourcecenter.org or call their support line at [phone] or The Alzheimer's Association (web site: alz.org/[place]) An organization that provides education and support to individuals/caregivers affected by memory loss, Alzheimer's disease, and all forms of dementia. Available 24 hours a day, 7 days per week. Contact: Local: ; Toll free: [phone] Family Caregiver [place] (web site: Caregiver.org) BLANK Parrish-- a secure online solution for quality information, support, and resources for family caregivers. Contact: Toll-free number: [phone] Support Group Information [facility] Lewy Body Dementia Caregiver Support Group-Co sponsored by The Alzheimer's Association Wednesday of each month from 1:30-3:30pm Virtual group by altagracia, intended for caregivers of persons living with Dementia with Lewy Bodies and Parkinson s Disease Dementia. To enroll in the group, please contact the Alzheimer s Association Helpline at Josh/Davey Lewy Body Support Group Wednesday of the Month 3:00pm EST Virtual group by Oricula [employer]rapeutics to support caregivers of those with Lewy Body Dementia. For more information and for the Zoom link, please contact Starla Oumou at [phone] or Literature The 36 Hour Day- Shy [...] place (living will & healthcare power of patent prosecution attorney), which is excellent. Documents for healthcare can be uploaded to your medical record in the following ways: -Bring the forms to any [facility] medical appointment. A copy will be made and scanned into your medical record. -Scan and send to [email or web address] -Fax to [phone] -Mail to: [facility] Information Management, Ab7 Advance Directives Processing [address], [place] [address] Durable Power of Field Operations Coordinator for Finance We encourage you to verify that the forms for durable power of patent prosecution attorney regarding finance have been completed. Durable Power of Field Operations Coordinator for Finance allows a person to name an individual that they would want to make financial decisions on their behalf, in the event that they are unable to do so. These decisions may include: -Payment of a loved one s bills -Payment of their medical expenses -Investments made on their behalf -Collection of their penitentiary benefits -Application for insurance benefits You can visit [email or web address]/to pic/financial-poa for more information. These forms require a notary upon completion. Follow Up We would like you to return to [facility] for a follow up visit in 3-4 months. Our office can be reached by calling [phone] Option 1. Sincerely, Sera Killian APRN.BACK PANEL PADDER JOSÉ ANTONIO Srivastava, [facility] BEBE Kramer documented in this encounter [facility] 04-19-2024 Note HNO ID: [id number] Author: NIKKI DARBY LISW Service: ? Author Type: Registered Nurse Type: Progress Notes Filed: 04/19/2024 17:34 Note Text: Summary: Nurse Note Donnie Bullock is a [...] (162 lb 11.2 oz) Francie Lira RN [facility] 04-19-2024 History of Present illness Narrative Summary: Nurse Note Donnie Bullock is a 68 year old year old left handed woman Accompanied by: spouse and son. Referral by: No referring provider defined for this encounter. 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 Pt states that her is pursuing a second opinion regarding her DLB Vital Signs: BP 129/83 (BP Site: Left Arm, BP Position: Sitting, BP Cuff Size: Regular Adult) Pulse 76 Wt 73.8 kg (162 lb 11.2 oz) Francie Lira RN Date: April 19, 2024 DONNIE BULLOCK [address] [place] [address] [place] [address] [facility] INITIAL PATIENT EVALUATION Reason for Consult: Lewy Body Dementia-here for a 2nd opinion I had the pleasure of seeing this 68 year old year old female at the [facility]. The patient is referred by SELF. Patient [...] by neurology provider Dr. Rei Cobos at [facility], followed since August 2023. No cognitive testing on file. Formerly followed by psychiatry for LBD/anxiety. Last seen in September 2023. Care was established following her inpatient [facility] in April 2023/May 2023. No family history of dementia or Parkinson's Disease. Per spouse and son report: -Lumbar puncture at [facility] September 30, 2023. Work up completed for possible rapidly progressing dementia. -Prior brain imaging (MRI/CT at outside medical systems). -Hallucinations daily (asks her spouse when is Vimal going to come home? ; sees babies; puppies, squirrel on spouse's shoulder, gives sign of peace to people she sees in her home). -Recently discharged from [facility] 4 months ago. Also previously [...] wanting to live, she was admitted to [facility] for further evaluation. Mobility changes at this [...] spouse Agencies involved: none currently-previously followed by [facility] Special Concerns: Hallucinations/Delusions: [...] Financial POA: Spouse will verify-information reviewed Consult [facility] HOME CARE MANAGER RN if not completed: role introduced, reviewed national organizations offering support, provided communication tips and caregiver strategies. ----- SOCIAL HISTORY -Education completed: 14 -Some college -No tobacco. No significant alcohol abuse. No history of substance abuse. 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 -Marital status: -4 children -Guardian No -Is [...] due to lack of insight Insight: good [place] Cognitive Assessment (MoCA) Version 7.1 Total Score: 17/30 Visuospatial/Executive Alternating [place] Making: Patient is unable to successfully complete [...] Clock Drawin/5 poor Abstract thinking was good. 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 She could name 7 [...] diagnosis. This is her first visit to [facility]. MoCA administered with score of 17/30. [...] to live, and she was admitted to [facility] for further evaluation. She was placed on [...] using a THC pretzel + Mirtazapine at . (G31.83, F02.818) Lewy body dementia with behavioral [...] which included preparing to see the patient, rlpv-wq-txhe patient care, completing clinical documentation, obtaining and/or reviewing separately obtained history, counseling and educating the patient/family/caregiver, ordering medications, tests, or procedures, communicating with other HCPs (not separately reported) and care coordination (not separately reported). Sera Killian APRN, Geriatric Clinical Nurse Specialist [facility] CC: 1. No primary care provider on file., (fax) None [address] [place] [address] documented in this encounter [facility] 04-19-2024 Note HNO ID: [id number] Author: SERA KILLIAN APRN.ELIANE Service: ? Author Type: Nurse Practitioner Type: Progress Notes Filed: 04/19/2024 17:34 Note Text: Date: April 19, 2024 [place] [address] [facility] Brain [facility] INITIAL PATIENT EVALUATION Reason for Consult: Lewy Body Dementia-here for a 2nd opinion I had the pleasure of seeing this 68 year old year old female at the [facility]. The patient is referred [...] by neurology provider Dr. Rei Cobos at [facility], followed since August 2023. No cognitive testing on file. Formerly followed by psychiatry for LBD/anxiety. Last seen in September 2023. Care was established following her [facility] in April 2023/May 2023. No family history of dementia or Parkinson's Disease. Per spouse and son report: -Lumbar puncture at [facility] September 30, 2023. Work up completed for possible rapidly progressing dementia. -Prior brain imaging (MRI/CT at outside medical systems). -Hallucinations daily (asks her spouse when is Vimal going to come home? ; sees babies; puppies, squirrel on spouse's shoulder, gives sign of peace to people she sees in her home). -Recently discharged from [facility] 4 months ago. Also previously [...] wanting to live, she was admitted to [facility] for further evaluation. Mobility changes at this [...] spouse Agencies involved: none currently-previously followed by [facility] Special Concerns: Hallucinations/Delusions: [...] Financial POA: Spouse will verify-information reviewed Consult [facility] HOME CARE MANAGER RN if not completed: role introduced, reviewed national organizations offering support, provided communication tips and caregiver strategies. ----- SOCIAL HISTORY -Education completed: 14 -Some college -No tobacco. No significant alcohol abuse. No history of substance abuse. 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 [facility] 04-12-2024 History of Present illness Narrative Concerned of UTI. Please send orders to [facility]. documented in this encounter [facility] 04-04-2024 History of Present illness Narrative Images from the original note were not included. Physical Therapy Physical Therapy Treatment Visit Patient Name: Donnie Bullock Today's Date: 04/04/2024 Encounter Diagnoses Name Primary? Generalized weakness Yes Rapidly progressive dementia (CMS/HCC) Unsteady gait Dizziness Visit number: 6 Supervised time: 40 min Total time: 42 min Time in: 9:55 am Time out: 10:37 pm Subjective Donnie Richardson Elder 68 y.o. female presents to [...] progression as tolerated. documented in this encounter [facility] 03-30-2024 History of Present illness Narrative Images [...] Continue progression as tolerated. Cosigned by Mary Peterson, PT at 03/31/2024 6:38 AM EST documented in this encounter [facility] 03-28-2024 History of Present illness Narrative Images [...] 5:37 PM EST documented in this encounter [facility] 03-22-2024 History of Present illness Narrative Images from the original note were not included. Physical Therapy Physical Therapy Evaluation Visit Patient Name: Donnie Bullock Today's Date: 03/22/2024 Encounter Diagnoses Name Primary? Generalized weakness Yes Rapidly progressive dementia (CMS/HCC) Unsteady gait Dizziness Visit number: 3 Supervised time: 38 min Total time: 39 min Time in: 1:00 pm Time out: 1:39 pm Subjective Donnie Richardson Elder 68 y.o. female presents to [...] on ground, NSEO on foam, dynamic ambulation july walk/BW walk 3 laps ~30 ft cronin. [...] progression as tolerated. documented in this encounter [facility] 03-20-2024 History of Present illness Narrative Images [...] chronic DDD (degenerative disc disease), cervical Dementia ([facility]) Depression ([facility]) May 25 Dyslipidemia ([facility]) DALILA (generalized anxiety disorder) ([facility]) Gastroesophageal reflux disease Impaired fasting glucose Lewy body dementia ([facility]) Loss of balance Low back pain, non-specific Olecranon bursitis, right elbow Orthostatic hypotension Osteopenia of lumbar spine Parkinson's disease ([facility]) 2023 PSVT (paroxysmal supraventricular tachycardia) ([facility]) Skin cancer Vertigo Past Surgical History: Procedure Laterality Date CARPAL TUNNEL RELEASE Left 06/15/2014 MTP CARPAL TUNNEL RELEASE Right 06/29/2014 MTP DILATION AND CURETTAGE OF UTERUS 2004 EYE SURGERY HYSTERECTOMY 2007 DC REMOVE TONSILS/ADENOIDS,12+ Y/O 1958 Family History Problem Relation Name Age of Onset Cancer Mother Ayla Jonas Arthritis Mother Ayla Jonas Hypertension Father Carlos Jonas Cancer Father Carlos Jonas Heart disease Sibling Arthritis Maternal Grandmother Dayna Altamont Social History Tobacco Use Smoking status: Never [...] reflexes are 2+ and symmetric throughout. Coordination: Lqwybb-st-hjfa testing and rapid alternating movements are normal Gait: Normal Review and summary of old records: Patient was seen at [facility] for altered mental status at the end [...] mental health issues documented in this encounter [facility] 03-16-2024 History of Present illness Narrative Images from the original note were not included. Physical Therapy Physical Therapy Evaluation Visit Patient Name: Donnie Bullock Today's Date: 03/16/2024 Encounter Diagnoses Name Primary? Generalized weakness Yes Rapidly progressive dementia (CMS/HCC) Unsteady gait Visit number: 1 Subjective Donnie Richardson Elder 68 y.o. female presents to [...] min self care, issued green band for emids Manual Therapy: prn Therapeutic Exercise: per KAVYA [...] be ind with HEP for maintenance at [place] Pt will benefit from skilled PT to address the above impairments for 2-3x/week for 4-8 weeks pending pt needs/progress I hereby deem this POC medically necessary. Please sign below. Date: documented in this encounter [facility] 03-14-2024 Telephone encounter Note Patient with worsening confusion and concerned of UTI. Please fax lab order to hospital. [facility] 03-14-2024 Miscellaneous Notes Patient with worsening confusion and concerned of UTI. Please fax lab order to hospital. documented in this encounter [facility] 03-09-2024 History of Present illness Narrative Patient declining and requests PT. Please write PT order for unsteady gait, generalized weakness, and dementia. documented in this encounter [facility] 02-09-2024 History of Present illness Narrative Physical Therapy Physical Therapy Evaluation Patient Name: Donnie Bullock Today's Date: 02/09/2024 Please referred to scanned document from Evaluation on 02/09/24 documented in this encounter [facility] 02-02-2024 History of Present illness Narrative Images [...] OF UTERUS 2004 EYE SURGERY HYSTERECTOMY 2008 DC REMOVE TONSILS/ADENOIDS,12+ Y/O 1961 Family History Family History Problem Relation Name Age of Onset Cancer Mother Ayla Pritesh Arthritis Mother Ayla Pritesh Hypertension Father Carlos Pritesh Cancer Father Carlos Pritesh Heart disease Sibling Arthritis Maternal Grandmother Dayna Tyesha Objective General assessment: Alert and oriented. Pleasant [...] Herson Uribe DPM documented in this encounter [facility] 02-02-2024 Instructions Herson Uribe DPM - 02/02/2024 9:30 AM EDT As noted documented in this encounter [facility] 01-25-2024 History of Present illness Narrative Images [...] often. He states the behavioral center in [place] told them this condition is physical not [...] OF UTERUS 2004 EYE SURGERY HYSTERECTOMY 2007 DC REMOVE TONSILS/ADENOIDS,12+ Y/O 1961 Family History Problem Relation Name Age of Onset Cancer Mother Ayla Pritesh Arthritis Mother Ayla Pritesh Hypertension Father Carlos Jonas Cancer Father Carlos Pritesh Heart disease Sibling Arthritis Maternal Grandmother Dayna Altamont Social History Tobacco Use Smoking status: Never [...] reflexes are 2+ and symmetric throughout. Coordination: Nixrmb-fx-yhsw testing and rapid alternating movements are normal [...] She has not able to participate with [place] cognitive assessment. Routine EEG was unremarkable. Neuropsych [...] mental health issues documented in this encounter [facility] 09-22-2023 Progress note Note Date/Time September 22, 2023 9:37am [facility] [address] [place] [address] Psychiatry Progress Note Signed Patient: Donnie Bullock MR#: [id number] : 1955 Acct:[id number] Age/Sex: 67 / F Adm Date: 4 Loc: 1S Room: [address] [place] [address] Type : ADM IN Attending Dr: Sridhar [...] <Electronically signed by Lionel Still MD> 09/22/[address] [facility] Work Phone: 1(347) 781-687905-07-2024 Progress note Author Lionel kingsley [facility] September 20, 2023 10:19pm Note Date/Time September 20, 2023 10:19p m [facility] [address] [place] [address] Psychiatry Progress Note Signed Patient: Donnie Bullock MR#: [id number] : 1955 Acct:[id number] Age/Sex: 67 / F Adm Date: 4 Loc: Room: [address] [place] [address] Type : ADM IN Attending Dr: Sridhar [...] <Electronically signed by Lionel Still MD> 09/20/[address] [facility] Work Phone: 1(313) 635-352005-05-2024 Progress note Author Sridhar Hoffman [facility] September 19, 2023 11:52am Note Date/Time September 19, 2023 11:51a m [facility] [address] [place] [address] Psychiatry Progress Note Signed Patient: Donnie Bullock MR#: [id number] : 1955 Acct:[id number] Age/Sex: 67 / F Adm Date: 4 Loc: Room: 9O6131-9 Type : ADM IN Attending Dr: Sridhar [...] that she is out of school in [place]. Mental Status Exam: Appearance: grossly normal Mental [...] <Electronically signed by Sridhar Hoffman MD> 09/19/[address] [facility] Work Phone: 1(722) 567-822405-04-2024 Progress note Author Sridhar Hoffman [facility] September 18, 2023 10:54am Note Date/Time September 18, 2023 10:53a m [facility] [address] [place] [address] Psychiatry Progress Note Signed Patient: Donnie Bullock MR#: [id number] : 1955 Acct:[id number] Age/Sex: 67 / F Adm Date: 4 Loc: Room: [address] [place] [address] Type : ADM IN Attending Dr: Sridhar [...] signed by Sridhar Hoffman MD> 09/18/23 1054 [facility] Work Phone: 1(439) 744-637205-03-2024 Progress note Author Sridhar Hoffman [facility] September 17, 2023 11:40am Note Date/Time September 17, 2023 11:40a m [facility] [address] [place] [address] Psychiatry Progress Note Signed Patient: Donnie Bullock MR#: [id number] : 1955 Acct:[id number] Age/Sex: 67 / F Adm Date: 4 Loc: Room: [address] [place] [address] Type : ADM IN Attending Dr: Sridhar [...] signed by Sridhar Hoffman MD> 09/17/[address] [facility] Work Phone: 1(410) 584-705905-02-2024 Progress note Author Sridhar Hoffman [facility] September 16, 2023 12:53pm Note Date/Time September 16, 2023 12:53p m [facility] [address] [place] [address] Psychiatry Progress Note Signed Patient: Donnie Bullock MR#: [id number] : 1955 Acct:[id number] Age/Sex: 67 / F Adm Date: 4 Loc: 1S Room: [address] [place] [address] Type : ADM IN Attending Dr: Sridhar [...] <Electronically signed by Sridhar Hoffman MD> 09/16/23 1257 [facility] Work Phone: 1(255) 808-252805-01-2024 History and physical note Author Sridhar Hoffman [facility] September 15, 2023 12:23pm Note Date/Time September 15, 2023 12:24p m [facility] [address] [place] [address] Psychiatry H&P Signed Patient: Donnie Bullock MR#: [id number] : 1955 Acct:[id number] Age/Sex: 67 / F Adm Date: 4 Loc: Room: [address] [place] [address] Type: ADM IN Attending Dr: Sridhar Hoffman [...] reported that she thought she saw an Nondenominational girl while here in the hospital. She [...] homicidality, reported suicidality Insight: fair Judgment: fair [facility] Medical History Osteopenia History of skin [...] Appearance Clear Urine pH 7.0 Ur Specific [place] 1.004 Urine Protein Negative Urine Glucose (UA) [...] signed by Sridhar Hoffman MD> 09/15/23 1223 [facility] Work Phone: 1(464) 469-509202-14-2024 Telephone encounter Note* Telephone Encounter - Remigio Simpson MD - 06/30/2023 12:26 PM EST Patient with increased confusion and concerned of UTI. Please fax orders to [facility]. [facility] [id number] Miscellaneous Notes* Telephone Encounter - Remigio Simpson MD - 06/30/2023 12:26 PM EST Patient with increased confusion and concerned of UTI. Please fax orders to [facility]. documented in [facility] [id number] Hospital Discharge instructions Additional Instructions Important Contact Information You can call [facility] at [phone] any time day or night if you have emergent questions or question regarding discharge instructions. If at any time you are feeling an increase in your psychiatric symptoms, call your physician or behavioral healthcare provider. If any time you have thoughts of harming yourself or others contact one of the following: Call [phone] (available 07/12) Crisis Text Line (available 07/12) text 4HOPE to [phone] [facility] Hope Line (available 8 a.m. Midnight) call [phone] ([phone]) [facility] Work Phone: 1(859) 911-695508-25-2023 NoteChief Complaint consultation for change in bowel habits [facility] Staff 67 year old female presents [...] Tobacco Use:. Household tobacco (more content not included)...[facility] Comment on above:Result Comment: Electronically Signed By: AVNI ROGERS, Amor Rangel\Date and Time Signed: 01/08/23 15:31 [id number] NotePROCEDURE: XR ELBOW RT MIN 3 VIEWS HISTORY: Pain of right elbow joint since falling one year ago COMPARISON: None. FINDINGS: BONES:No fracture, acute abnormality, or significant arthropathy. SOFT TISSUES:No visible soft tissue swelling. EFFUSION:None visible. OTHER: Negative. IMPRESSION: 1. Normal examination. Electronically authenticated by: HERSON REBOLLEDO Date: 2022-03-12 18:14[facility] summary Author Lionel kingsley [facility] September 22, 2023 8:41pm Note Date/Time September 22, 2023 8:41pm [facility] [address] [place] [address] Discharge Summary Signed Patient: Donnie Bullock MR#: [id number] : 1955 Acct:[id number] Age/Sex: 67 / F Adm Date: 4 Loc: Room: [address] [place] [address]: Sridhar Hoffman MD Copies to: [...] reported that she thought she saw an Nondenominational girl while here in the hospital. She [...] Important Contact Information You can call [facility] at [phone] any time day or night if you have emergent questions or question regarding discharge instructions. If at any time you are feeling an increase inyour psychiatric symptoms, call your physician or behavioral healthcare provider. If any time you have thoughts of harming yourself or others contact one of the following: Call (available 07/12) Crisis Text Line (available 07/12) text 4HOPE to [phone] [facility] Hope Line (available 8 a.m. Midnight) call [phone] ([phone]) Instructions: Dementia (DC), [facility] DC Instructions, Know your Meds [...] Rx Instructions: 8am and 5pm Follow Up: [facility] [Outside] - 09/29/23 12:30 pm (A supportive employment case manager will call you on 09/23/23 between 8:00am [...] 19:40 Documented By: Lionel Still MD 4 [id number] Signed By: <Electronically signed by Lionel Still MD> 09/22/232040 [facility] Work Phone: Evaluation + Plan note No data available for this section General Surgery T[place] Evaluation noteNo assessment information available [facility] Work Phone: Evaluation note* Diagnosis Onset Date Resolution Status Anxiety acute Confusion acute Depression acute Major neurocognitive disorder acute Suicidal ideation acute [facility] Work Phone: Evaluation note* Diagnosis Recurrent UTI- [...] Major neurocognitive disorder acute Suicidal ideation acute [facility] Work Phone: Evaluation note* Diagnosis DALILA (generalized [...] Abnormality of gait documented in this encounter [facility] HealthcareEvaluation note* Diagnosis Mild neurocognitive disorder- Primary MDD (major depressive disorder), recurrent episode, mild (HCC) (CMS/HCC) Generalized weakness Rapidly progressive dementia (CMS/HCC)- Primary Bilateral primary osteoarthritis of knee Breast cancer screening by mammogram Dizziness Dizziness and giddiness Dysuria- Primary documented in this encounter [facility] HealthcareEvaluation note* Diagnosis Mild neurocognitive disorder- Primary MDD (major depressive disorder), recurrent episode, mild (HCC) (CMS/HCC) Generalized weakness Rapidly progressive dementia (CMS/HCC)- Primary Bilateral primary osteoarthritis of knee Breast cancer screening by mammogram Dizziness Dizziness and giddiness Urinary tract infection without hematuria, site unspecified documented in this encounter [facility] HealthcareEvaluation note* Diagnosis Mild neurocognitive disorder- Primary MDD (major depressive disorder), recurrent episode, mild (HCC) (CMS/HCC) Generalized weakness Rapidly progressive dementia (CMS/HCC)- Primary Bilateral primary osteoarthritis of knee Breast cancer screening by mammogram Dizziness Dizziness and giddiness Generalized weakness- Primary Rapidly progressive dementia (CMS/HCC) Unsteady gait Abnormality of gait documented in this encounter [facility] HealthcareEvaluation note* Diagnosis Lewy body dementia with behavioral disturbance (HCC)- Primary Dementia with Lewy bodies Other depression 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 Secondary parkinsonism, unspecified secondary Parkinsonism type (HCC) Visual hallucinations Psychophysical visual disturbances [facility] this encounter [facility] Diagnosis Dermatophytosis of nail- Primary Dystrophic nail Other specified disease of nail Pain around toenail, right foot Pain around toenail, left foot documented in this encounter [facility] HealthcareEvaluation note* Diagnosis Mild neurocognitive disorder- Primary MDD (major depressive disorder), recurrent episode, mild (HCC) (CMS/HCC) Generalized weakness Rapidly progressive dementia (CMS/HCC)- Primary Bilateral primary osteoarthritis of knee Breast cancer screening by mammogram Dizziness Dizziness and giddiness Generalized weakness- Primary Rapidly progressive dementia (CMS/HCC) Unsteady gait Abnormality of gait documented in this encounter [facility] HealthcareEvaluation note* Diagnosis Mild neurocognitive disorder- Primary [...] (CMS/HCC)- Primary documented in this encounter [facility] Healthcare[facility] and physical note Author Sridhar Hoffman [facility] May 26, 2023 12:28pm Note Date/Time May 26, 2023 1 2:28pm [facility] [address] [place] [address] Psychiatry H&P Signed Patient: Donnie Bullock MR#: [id number] : 1955 Acct:[id number] Age/Sex: 67 / F Adm Date: 4 Loc: 1S Room: 2G7876-8 Type: ADM IN Attending Dr: Sridhar Hoffman [...] denied current suicidality Insight: fair Judgment: fair [facility] Medical History (Updated 05/26/23 @ 12:28 [...] <Electronically signed by Sridhar Hoffman MD> 05/26/23 1222 [facility] Work Phone: Hospital Discharge instructions No data available for this section General Surgery [place] Progress note No data available for this section General Surgery [place] Reason for referral (narrative)* Consultation (Routine) - Pending Review Specialty Diagnoses / Procedures Referred By Linda crocker Referred To Contact Urology Diagnoses Recurrent UTI Procedures DC OFFICE/OUTPATIENT NEW HIGH MDM 60 MINUTES Remigio Simpson MD [address] [place] [address] Amor Arcos MD [address] [place] [address] Referral ID Status Reason Start Date Expiration Date Visits Requested Visits Authorized [id number] Pending Review Specialty Services Required 06/29/2023 12/26/2023 1 1 [facility]* Rehabilitation - Outpatient (Routine) - Authorized Specialty Diagnoses / Procedures Referred By Linda crocker Referred To Contact Physical Therapy Diagnoses Generalized weakness Rapidly progressive dementia (CMS/HCC) Unsteady gait Procedures DC OFFICE/OUTPATIENT NEW HIGH MDM 60 MINUTES Remigio Simpson MD [address] [place] [address] Phone: tel: fax: Alexandria Mcnair, PT [address] [place] [address] Phone: tel: fax: Referral ID Status Reason Start Date Expiration Date Visits Requested Visits Authorized [id number] Authorized Consult and Treat 03/09/2024 09/05/2024 25 25 [facility] HealthcareReason for visit Narrative* Rehabilitation - Outpatient (Routine) - Authorized Specialty Diagnoses / Procedures Referred By Linda t Referred To Contact Physical Therapy Diagnoses Generalized weakness Rapidly progressive dementia (CMS/HCC) Unsteady gait Procedures DC OFFICE/OUTPATIENT NEW [facility] 60 MINUTES Remigio Simpson MD [address] [place] [address] Phone: tel: fax: Alexandria Mcnair, PT [address] [place] [address] Phone: tel: fax: Referral ID Status Reason Start Date Expiration Date Visits Requested Visits Authorized [id number] Authorized Consult and Treat 03/09/2024 05/16/2024 25 25 [facility] Healthcare Summary Purpose Family History No Family [...] Referred By Linda t Referred To Contact Diagnoses DALILA (generalized anxiety disorder) (CMS/HCC) Remigio Simpson MD [address] [place] [address] Referral ID Status Reason Start Date Expiration Date V isits Requested Visits Authorized [id number] Pending Review 02/17/2024 08/15/2024 1 1 Additional Source Comments INFORMATION SOURCE (unrecogn ized section and content) DATE CREATED AUTHOR 09/17/2022 [facility] DATE CREATED AUTHOR AUTHOR'S ORGANIZ ATION 02/17/2023 [facility] DATE CREATED AUTHOR AUTHOR'S ORGANIZ ATION 05/26/2023 [facility] DATE CREATED AUTHOR AUTHOR'S ORGANIZ ATION 03/19/2024 [facility] DATE CREATED AUTHOR AUTHOR'S ORGANIZ ATION 06/01/2024 [facility] EPIC DATE CREATED AUTHOR AUTHOR'S ORGANIZ ATION 06/02/2024 [facility] Patient Care team informatio n [...] Provider Active Start: May 25, 2023 Lionel tSill MD Attending Provider Active Start: May 25, 2023 Cpc Relationship Specialty Start Date End Date Remigio Simpson MD PCP - General Family Medicine 05/17/22 Cpc Relationship Specialty Start Date End Date Remigio Simpson MD PCP - General Family Medicine 05/17/22 Cpc Relationship Specialty Start Date End Date Remigio Simpson MD PCP - General Family Medicine 05/17/22 Team Status: Active Member Role Status Dates Remigio Simpson MD Primary Care Provider Active S tart: September 14, 2023 Good Garcia DO Emergency Provider Active St art: September 14, 2023 Sridhar Hoffman MD Admit Provider, Attending Provider Active Start: September 14, 2023 Cpc Relationship Specialty Start Date End Date Remigio Simpson MD [address] [place] [id number] PCP - General Family Medicine 07/19/23 Cpc Relationship Specialty Start Date End Date Remigio Simpson MD [address] [place] [id number] PCP - General Family Medicine 07/19/23 Cpc Relationship Specialty Start Date End Date Remigio Simpson MD [address] [place] [phone] PCP - General Family Medicine 07/19/23 Cpc Relationship Specialty Start Date End Date Remigio Simpson MD [address] [place] [address] PCP - General Family Medicine 07/19/23 Cpc Relationship Specialty Start Date End Date Remigio Simpson MD [address] [place] [address] PCP - General Family Medicine 07/19/23 Cpc Relationship Specialty Start Date End Date Remigio Simpson MD [address] [place] [address] PCP - General Family Medicine 07/19/23 Rei Cobos DO [address] [place] [address] [id number] Referring Physician Neurology 03/17/24 Cpc Relationship Specialty Start Date End Date Remigio Simpson MD [address] [place] [phone] PCP - General Family Medicine 07/19/23 Rei Cobos DO [address] [place] [address] [id number] Referring Physician Neurology 03/17/24 Cpc Relationship Specialty Start Date End Date Remigio Simpson MD [address] [place] [address] PCP - General Family Medicine 07/19/23 Rei Cobos DO [address] [place] [address] Referring Physician Neurology 03/17/24 Cpc Relationship Specialty Start Date End Date Remigio Simpson MD [address] [place] [address] PCP - General Family Medicine 07/19/23 Rei Cobos DO [address] [phone] Referring Physician Neurology 03/17/24 Cpc Relationship Specialty Start Date End Date Remigio Simpson MD [address] [place] [address] PCP - General Family Medicine 07/19/23 Rei Cobos DO [address] [phone] Referring Physician Neurology 03/17/24 Cpc Relationship Specialty Start Date End Date Remigio Simpson MD [address] [place] [address] PCP - General Family Medicine 07/19/23 Rei Cobos DO [address] [phone] Referring Physician Neurology 03/17/24 Cpc Relationship Specialty Start Date End Date Remigio Simpson MD [address] [place] [phone] PCP - General Family Medicine 07/19/23 Rei Cobos DO [address] [phone] Referring Physician Neurology 03/17/24 Cpc Relationship Specialty Start Date End Date Remigio Simpson MD [address] [place] [address] PCP - General Family Medicine 07/19/23 Rei Cobos DO [address] [phone] Referring Physician Neurology 03/17/24 Cpc Relationship Specialty Start Date End Date Remigio Simpson MD [address] [place] [address] PCP - General Family Medicine 07/19/23 Rei Cobos DO [address] [phone] Referring Physician Neurology 03/17/24 Cpc Relationship Specialty Start Date End Date Remigio Simpson MD [address] [place] [address] PCP - General Family Medicine 07/19/23 Rei Cobos DO [address] [phone] Referring Physician Neurology 03/17/24 Cpc Relationship Specialty Start Date End Date Remigio Simpson MD [address] [place] [address] PCP - General Family Medicine 07/19/23 Rei Cobos DO [address] [address] Referring Physician Neurology 03/17/24 Cpc Relationship Specialty Start Date End Date Remigio Simpson MD [address] [place] [address] PCP - General Family Medicine 07/19/23 Rei Cobos DO [address] [phone] Referring Physician Neurology 03/17/24 Cpc Relationship Specialty Start Date End Date Remigio Simpson MD [address] [place] [address] PCP - General Family Medicine 07/19/23 Rei Cobos DO [address] [address] Referring Physician Neurology 03/17/24 Cpc Relationship Specialty Start Date End Date Remigio Simpson MD [address] [place] [address] PCP - General Family Medicine 07/19/23 Cpc Relationship Specialty Start Date End Date Remigio Simpson MD [address] [place] [phone] PCP - General Family Medicine 07/19/23 Cpc Relationship Specialty Start Date End Date Remigio Simpson MD [address] [place] [address] PCP - General Family Medicine 07/19/23 Rei Cobos DO [address] [phone] Referring Physician Neurology 03/17/24 Cpc Relationship Specialty Start Date End Date Remigio Simpson MD [address] [place] [address] PCP - General Family Medicine 07/19/23 Cpc Relationship Specialty Start Date End Date Remigio Simpson MD [address] [place] [address] PCP - General Family Medicine 07/19/23 Rei Cobos DO [address] [place] [address] Referring Physician Neurology 03/17/24 Goals (unrecognized section and content) Goals may be documented in a n alternate section Source Comments (unrecognize d section and content) In the event this informatio n is protected by the Federal Confidentiality of Alcohol and Drug Abuse Patient Records regulations: The Federal rules restrict any use of the information to criminally investigate or prosecute any alcohol or drug abuse patient.[facility] the event this information is protected by the Federal Confidentiality of Alcohol and Drug Abuse Patient Records regulations: The Federal rules restrict any use of the information to criminally investigate or prosecute any alcohol or drug abuse patient.[facility] Rehabilitation[facility] the event this information is protected by the Federal Confidentiality of Alcohol and Drug Abuse Patient Records regulations: The Federal rules restrict any use of the information to criminally investigate or prosecute any alcohol or drug abuse patient.[facility] RehabilitationIn the event this information is protected by the Federal Confidentiality of Alcohol and Drug Abuse Patient Records regulations: The Federal rules restrict any use of the information to criminally investigate or prosecute any alcohol or drug abuse patient.[facility] RehabilitationIn the event this information is protected by the Federal Confidentiality of Alcohol and Drug Abuse Patient Records regulations: The Federal rules restrict any use of the information to criminally investigate or prosecute any alcohol or drug abuse patient.[facility] RehabilitationIn the event this information is protected by the Federal Confidentiality of Alcohol and Drug Abuse Patient Records regulations: The Federal rules restrict any use of the information to criminally investigate or prosecute any alcohol or drug abuse patient.[facility] RehabilitationIn the event this information is protected by the Federal Confidentiality of Alcohol and Drug Abuse Patient Records regulations: The Federal rules restrict any use of the information to criminally investigate or prosecute any alcohol or drug abuse patient.[facility] RehabilitationIn the event this information is protected by the Federal Confidentiality of Alcohol and Drug Abuse Patient Records regulations: The Federal rules restrict any use of the information to criminally investigate or prosecute any alcohol or drug abuse patient.[facility] Reason for Visit (unrecogniz ed section and [...] Update Spouse requesting to speak with nurse Reason Comments Called Back Patient Question Spouse requesting a return phone call FOR RECORDS PERTAINING TO PATIENTS WHO ARE [...] BE BASED ON THE PRIMARY CLINICAL RECORDS. [facility] [employer] [facility]. provides no warranty or guarantee of the accuracy or completeness of information in this document.
[2024-06-05 14:28] LABS: Bilirubin Urine NEGATIVE (NEGATIVE); Blood Urine TRACE-I (NEGATIVE); Clarity Urine CLEAR (CLEAR); Color Urine LT. YELLOW (YELLOW); Glucose Urine UA NEGATIVE (NEGATIVE); Ketones Urine NEGATIVE (NEGATIVE); Leukocyte Esterase Urine NEGATIVE (NEGATIVE); Nitrite Urine NEGATIVE (NEGATIVE); Protein Urine NEGATIVE (NEG/TRACE); Urobilinogen Urine 0.2 EU/dL (0.2-1.0)
[2024-06-05 14:34] LABS: Basophils Percent Auto 0.4 % (0.2-2.0); Eosinophils Percent Auto 0.4 % (0.9-7.0); Hematocrit 38.9 % (36.0-48.0); Hemoglobin 13.3 g/dL (12.0-16.0); Lymphocytes Absolute Auto 1.2 10^3/uL (1.2-3.8); Lymphocytes Percent Auto 26.1 % (20.5-60.0); Mean Corpuscular HGB Conc 34.2 g/dL (29.9-35.2); Mean Corpuscular Hemoglobin 30.1 pg (26.7-34.0); Mean Platelet Volume 10.1 fL (9.5-13.5); Monocytes Absolute Auto 0.3 10^3/uL (0.3-0.8); Monocytes Percent Auto 6.2 % (1.7-12.0); Neutrophils Percent Auto 66.9 % (43.0-75.0); Platelet Count 244 10^3/uL (150-450); Red Blood Count 4.42 10^6/uL (4.20-5.40); Red Cell Distribution Width 12.2 % (11.0-15.0); White Blood Count 4.5 10^3/uL (4.0-11.0)
[2024-06-05 14:36] LABS: Bacteria Urine NONE SEEN #/HPF (NONE SEEN); Cast Seen? NONE SEEN #/LPF (NONE SEEN); Crystals Seen? None Seen #/HPF (None Seen); Mucus Urine NONE SEEN (NONE SEEN); RBC Urine 0-2 #/HPF (0-2); Squamous Epithelial Cell Urine RARE #/LPF (NONE/RARE); WBC Urine NONE SEEN #/HPF (NONE SEEN)
[2024-06-05] MEDS: ALPRAZOLAM 0.5 MG TABLET 0.25 MG PO (14:36)
[2024-06-05] MEDS: 0.9 % SODIUM CHLORIDE 1,000 ML 999 ML IV (14:37)
[2024-06-05 15:09] LABS: Alanine Aminotransferase 24 U/L (14-59); Albumin Globulin Ratio 1.1; Albumin Level 3.6 g/dL (3.4-5.0); Alkaline Phosphatase 56 U/L (46-116); Anion Gap 10.1; Aspartate Amino Transferase 18 U/L (15-37); BUN Creatinine Ratio 13.8; Bilirubin Total 0.4 mg/dL (0.2-1.0); Calcium 9.7 mg/dL (8.5-10.1); Carbon Dioxide 29.3 mmol/L (21.0-32.0); Chloride 105 mmol/L (98-107); Estimated GFR (African America >60 (>=60 mL/min/1.73m^2); Estimated GFR (Non-African Ame >60 (>=60 mL/min/1.73m^2); Globulin 3.2 g/dL; Glucose 115 mg/dL (74-106); Magnesium 2.2 mg/dL (1.8-2.4); Potassium 4.4 mmol/L (3.5-5.1); Sodium 140 mmol/L (136-145); Total Protein 6.8 g/dL (6.4-8.2)
--- NOTE | 2024-06-05 15:57 | ED_ITS ---
HPI HPI - General Adult General Chief complaint: Altered Mental Status Stated complaint: ANXIETY Time Seen by Provider: 06/05/24 13:44 Source: patient and family () Mode of arrival: walk-in Limitations: no limitations History of Present Illness HPI narrative: 68-year-old female presents to the emergency department with with complaint of anxiety. Has been worsening over the past 2 to 3 days. states they are currently changing medications. She is being taken off of Haldol and being started on Aricept. History of Lewy body dementia. She has been taking hydroxyzine for anxiety, but it has not been helping. also has some concern about possible urinary tract infection as she has been displaying urinary frequency over the past few days as well. No reported fevers. She denies any chest pain, abdominal pain, dysuria, headache. Quality:?As above Severity:?Moderate Timing:?as above Context: Normal setting and activity? Modifying factors:?as above Associated symptoms: as above Related Data Home Medications ?Medication ?Instructions ?Recorded ?Confirmed hydroxyzine HCl 25 mg tablet 25 mg PO Q8H PRN anxiety 07/17/23 10/01/23 mirtazapine 7.5 mg tablet 7.5 mg PO .QHS 07/17/23 10/01/23 haloperidol 0.5 mg tablet 1 mg PO DAILY 10/01/23 10/01/23 melatonin 10 mg tablet,extended 10 mg PO BEDTIME 10/01/23 10/01/23 release Previous Rx's ?Medication ?Instructions ?Recorded meloxicam 7.5 mg tablet 7.5 mg PO DAILY PRN pain #10 tabs 05/16/23 ondansetron 4 mg disintegrating 4 mg PO Q4H PRN nausea and 10/01/23 tablet vomiting 3 days #6 tabs promethazine 25 mg rectal 25 mg SC Q6H PRN nausea and 10/01/23 suppository vomiting #6 ea alprazolam 0.25 mg tablet (Xanax) 0.25 mg PO BID PRN anxiety 3 days 06/05/24 #6 tabs Allergies Allergy/AdvReac Type Severity Reaction Status Date / Time No Known Drug Allergies Allergy Unverified 03/15/24 09:38 Opioid HPI Opioid Management Most Recent Opioid Data: Ur Phencyclidine Scrn Negative (NEGATIVE) 05/23/23 15:35 12/07 Review of Systems ROS Narrative CONST: Denies fever, chills HENT: Denies congestion, sore throat EYES: Denies eye redness, visual disturbance RESP: Denies cough, shortness of breath CV: Denies chest pain, palpitations GI: Denies abd pain, nausea, vomiting : + urinary frequency. Denies dysuria, flank pain MS: Denies back pain, myalgias SKIN: Denies color change, rash NEURO: Denies numbness, weakness PSYCHIATRIC: +anxiety. Denies confusion, agitation PFSH PFS Medical History Normal colonoscopy PSVT (paroxysmal supraventricular tachycardia) ?I47.1 - Supraventricular tachycardia (ICD-10) Positive colorectal cancer screening using Cologuard test ?R19.5 - Other fecal abnormalities (ICD-10) Osteopenia ?M85.80 - Other specified disorders of bone density and structure, unspecified site (ICD-10) Orthostatic hypotension ?I95.1 - Orthostatic hypotension (ICD-10) GERD (gastroesophageal reflux disease) ?K21.9 - Gastro-esophageal reflux disease without esophagitis (ICD-10) Abdominal pain ?R10.9 - Unspecified abdominal pain (ICD-10) DALILA (generalized anxiety disorder) ?F41.1 - Generalized anxiety disorder (ICD-10) Dyslipidemia ?E78.5 - Hyperlipidemia, unspecified (ICD-10) Chronic constipation ?K59.09 - Other constipation (ICD-10) Change in bowel habits ?R19.4 - Change in bowel habit (ICD-10) Cervical disc disease ?M50.90 - Cervical disc disorder, unspecified, unspecified cervical region (ICD-10) Surgical History H/O vaginal hysterectomy ?Z90.710 - Acquired absence of both cervix and uterus (ICD-10) H/O dilation and curettage ?Z98.890 - Other specified postprocedural states (ICD-10) Hx of tonsillectomy ?Z90.89 - Acquired absence of other organs (ICD-10) History of adenoidectomy ?Z90.89 - Acquired absence of other organs (ICD-10) History of carpal tunnel release ?Z98.890 - Other specified postprocedural states (ICD-10) Family History Other Alcoholism Cardiac arrhythmia Heart disease Hypertension Multiple myeloma Pancreatic adenocarcinoma Pancreatic cancer Social History Within the past year, how often did you have a drink containing alcohol: never Score interpretation: A score less than 3 is consistent with normal alcohol consumption. Smoking status: Never smoker Second hand tobacco smoke exposure: No Non-prescribed substance use: denies use Previous occupational history: [employer] Known occupational exposures/hazards: No Highest level of school completed/degree received: high school graduate Little interest or pleasure in doing things: not at all Feeling down, depressed, or hopeless: not at all Exam Narrative Exam Narrative: Vital signs reviewed Nurses notes noted CONST: Nontoxic, well appearing, well nourished, in no distress.? No diaphoresis.?? HENT: normocephalic, atraumatic, moist mucous membrane, no abnormalities of the nose noted, hearing normal CV: normal rate, regular rhythm, no murmur RESP: normal effort, speaking in complete sentences. Lung sounds clear and equal bilat.? No wheezes, rales, rhonchi GI: soft, no distension, nontender : no CVA tenderness MS: no edema, tenderness SKIN: no pallor NEURO: A&Ox 3, no focal findings PSYCH: normal mood, flat affect Constitutional Vital Signs, click to edit/add: Last Vital Signs Temp 98.4 F 06/05/24 13:29 Pulse 82 06/05/24 16:11 Resp 16 06/05/24 16:11 BP 141/76 06/05/24 16:11 Pulse Ox 99 06/05/24 16:11 O2 Del Method Room Air 06/05/24 16:11 Course Reevaluation(s) Reevaluation #1: Evaluation, patient reports some improvement after Xanax. Discussed with patie nt and results, plan, and disposition. Patient and are agreeable with plan. Time: 15:55 Vital Signs Vital signs: Vital Signs Temperature 98.4 F 06/05/24 13:29 Pulse Rate 76 06/05/24 13:29 Respiratory Rate 16 06/05/24 13:29 Blood Pressure 156/77 H 06/05/24 13:29 Pulse Oximetry 98 01/20/25 13:29 Oxygen Delivery Method Room Air 06/05/24 13:29 Temperature 98.4 F 06/05/24 13:29 Pulse Rate 82 06/05/24 16:11 Respiratory Rate 16 06/05/24 16:11 Blood Pressure 141/76 06/05/24 16:11 Pulse Oximetry 99 06/05/24 16:11 Oxygen Delivery Method Room Air 06/05/24 16:11 Medical Decision Making MDM Narrative Medical decision making narrative: This is a pleasant 68-year-old female who presents to the emergency department for evaluation of anxiety, urinary frequency On arrival, afebrile, vital signs are stable Exam, nontoxic, well-appearing patient in no distress. Heart regular rate and rhythm. Lung sounds clear and equal bilaterally. IV access established, blood work was drawn. They were also concerned about dehydration patient was given some IV fluids Labs reveal no leukocytosis, anemia, thrombocytopenia, electrolyte imbalance, renal impairment. Glucose 115. LFTs unremarkable. Urinalysis showed no evidence of infection Patient had some improvement with dose of Xanax during ED course. Favor increased anxiety (she has a history) secondary to medication changes Metabolic acidosis, LUCIA, urinary tract infection less likely based on laboratory testing History and Record Review Discussion with independent historian: Additional Tests and Interventions IV Fluids:hydration/inability to tolerate PO Re-Evaluation See ED course Disposition ? The patient was discharged. Prescriptions sent to pharmacy: Xanax. Explicit instructions to patient and were for use only with severe anxiety not controlled with other meds Plan: Patient will be discharged to home.? Condition at time of disposition: stable, improved.? Advised to follow up with primary provider. Advised to return for any worsening and/or development of new, concerning signs or symptoms PLEASE NOTE: Portions of the medical record may have been produced using electronic pathology secretary/transcriptionist and may contain errors with respect to translation of words which may not have been identified prior to finalization of the chart. Lab Data Lab results reviewed: Yes I reviewed the patient's lab results Labs: Lab Results 06/05/24 06/05/24 06/05/24 Range/Units 13:55 14:28 14:46 WBC 4.5 (4.0-11.0) 10^3/uL RBC 4.42 (4.20-5.40) 10^6/uL Hgb 13.3 (12.0-16.0) g/dL Hct 38.9 (36.0-48.0) % MCV 88.0 (81.0-99.0) fL MCH 30.1 (26.7-34.0) pg MCHC 34.2 (29.9-35.2) g/dL RDW 12.2 (11.0-15.0) % Plt Count 244 (150-450) 10^3/uL MPV 10.1 (9.5-13.5) fL Neut % (Auto) 66.9 (43.0-75.0) % Lymph % (Auto) 26.1 (20.5-60.0) % [place] % (Auto) 6.2 (1.7-12.0) % Eos % (Auto) 0.4 L (0.9-7.0) % Baso % (Auto) 0.4 (0.2-2.0) % Neut # (Auto) 3.0 (1.4-6.5) 10^3/uL Lymph # (Auto) 1.2 (1.2-3.8) 10^3/uL [place] # (Auto) 0.3 (0.3-0.8) 10^3/uL Eos # (Auto) 0.0 (0.0-0.7) 10^3/uL Baso # (Auto) 0.0 (0.0-0.1) 10^3/uL Abs Immat Gran (auto) 0.00 (0.00-0.03) 10^3/uL Imm/Tot Granulo (auto) 0.0 (0.0-0.5) % Sodium 140 (136-145) mmol/L Potassium 4.4 (3.5-5.1) mmol/L Chloride 105 (98-107) mmol/L Carbon Dioxide 29.3 (21.0-32.0) mmol/L Anion Gap 10.1 BUN 11.0 (7.0-18.0) mg/dL Creatinine 0.80 (0.55-1.02) mg/dL Est GFR ( Amer) >60 (>=60 mL/min/1.73m^2) Est GFR (Non-Af Amer) >60 (>=60 mL/min/1.73m^2) BUN/Creatinine Ratio 13.8 Glucose 115 H (74-106) mg/dL Calcium 9.7 (8.5-10.1) mg/dL Magnesium 2.2 (1.8-2.4) mg/dL Total Bilirubin 0.4 (0.2-1.0) mg/dL AST 18 (15-37) U/L ALT 24 (14-59) U/L Alkaline Phosphatase 56 (46-116) U/L Total Protein 6.8 (6.4-8.2) g/dL Albumin 3.6 (3.4-5.0) g/dL Globulin 3.2 g/dL Albumin/Globulin Ratio 1.1 Urine Color Lt. yellow (YELLOW) Urine Clarity Clear (CLEAR) Urine pH 6.0 (5.0-9.0) Ur Specific [place] 1.020 (1.005-1.025) Urine Protein Negative (NEG/TRACE) mg/dL Urine Glucose (UA) Negative (NEGATIVE) mg/dL Urine Ketones Negative (NEGATIVE) mg/dL Urine Occult Blood Trace-i (NEGATIVE) Urine Nitrite Negative (NEGATIVE) Urine Bilirubin Negative (NEGATIVE) Urine Urobilinogen 0.2 (0.2-1.0) EU/dL Ur Leukocyte Esterase Negative (NEGATIVE) Urine RBC 0-2 (0-2) #/HPF Urine WBC None seen (NONE SEEN) #/HPF Ur Squamous Epith Cells Rare (NONE/RARE) #/LPF Urine Crystals None seen (None Seen) #/HPF Urine Bacteria None seen (NONE SEEN) #/HPF Urine Casts None seen (NONE SEEN) #/LPF Urine Mucus None seen (NONE SEEN) Discharge Plan Discharge Chief Complaint: Altered Mental Status Clinical Impression: Anxiety, Urinary frequency Patient Disposition: Home, Self-Care Time of Disposition Decision: 15:55 Condition: Good Mode of Transportation: Private Vehicle Prescriptions / Home Meds: New alprazolam [Xanax] 0.25 mg tablet 0.25 mg PO BID PRN (Reason: anxiety) 3 Days Qty: 6 0RF Discontinued diazepam [Valium] 2 mg tablet 2 mg PO TID-QID PRN (Reason: muscle spasm) 10 Days Qty: 10 0RF Rx Instructions: As needed for anxiety, insomnia, nausea and vomiting, muscle spasm No Action meloxicam 7.5 mg tablet 7.5 mg PO DAILY PRN (Reason: pain ) Qty: 10 0RF haloperidol 0.5 mg tablet 1 mg PO DAILY melatonin 10 mg tablet extended release 10 mg PO BEDTIME promethazine 25 mg suppository 25 mg SC Q6H PRN (Reason: nausea and vomiting) Qty: 6 0RF ondansetron 4 mg tablet,disintegrating 4 mg PO Q4H PRN (Reason: nausea and vomiting) 3 Days Qty: 6 0RF mirtazapine 7.5 mg tablet 7.5 mg PO .QHS hydroxyzine HCl 25 mg tablet 25 mg PO Q8H PRN (Reason: anxiety) Print Language: Monegasque Instructions: Anxiety (ED) Referrals: Remigio Hoyos MD [Primary Care Provider] - 1 week Discharge Date/Time: 06/05/24 16:11
[2024-06-05 16:11] VITALS: BP 141/76; PULSE 82; O2SAT 99
== END 2024-06-05 16:11 | disposition home or self-care (01) ==
PROVIDERS: Physician Assistant; Emergency Provider Emergency Medicine; PCP Family Medicine
DX: F41.9 Anxiety disorder, unspecified (principal); R35.0 Frequency of micturition; G31.83 Neurocognitive disorder with Lewy bodies; F02.84 Dementia in other diseases classified elsewhere, unspecified severity, with anxiety; Z90.710 Acquired absence of both cervix and uterus
CPT/HCPCS: 36415; 80053; 81001; 83735; 85025; 96360; 99284

== ENCOUNTER 2024-06-07 12:09 | Emergency (ER) | payer MEDICARE, OTHER, SELFPAY ==
[2024-06-07 12:27] VITALS: BP 153/82; PULSE 83; TEMP 36.6; O2SAT 99; BMI 25.8
--- NOTE | 2024-06-07 12:37 | CT_ITS ---
The [address] [address] Patient Name: DONNIE BULLOCK MRN: [id number] date: 1955 Sex: F Assigned Patient Location: ER Current Patient Location: ER Accession/Order Number: [id number] Exam Date: 06/07/2024 12:55 Report Date: 06/07/2024 13:17 At the request of: BENJY BERMUDEZ Procedure: CT head/brain wo con EXAMINATION: CT head/brain wo con HISTORY: confusion COMPARISON: No relevant comparison available. TECHNIQUE: Axial CT images were obtained without IV contrast. Dose reduction techniques were achieved by using automated exposure control and/or adjustment of mA and/or kV according to patient size and/or use of iterative reconstruction technique. FINDINGS: BRAIN: No edema, hemorrhage, mass, acute infarction, or inappropriate atrophy. Stable small foci of calcium deposition within the basal ganglia. CSF SPACES: No hydrocephalus, subarachnoid hemorrhage, or mass. Appropriate for age. SKULL: No fracture, mass, or other significant visible lesion. SINUSES: No significant mucosal thickening or fluid on the limited views. ORBITS: No appreciable abnormality on the limited views. OTHER: Negative CT/CT head/brain wo con IMPRESSION: 1. No intracranial hemorrhage, mass, or suspicious findings to account for patient's symptoms. 2. Stable age consistent chronic changes. Electronically authenticated by: HERSON REBOLLEDO Date: 06/07/2024 13:17
--- NOTE | 2024-06-07 12:37 | ECG_ITS ---
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
[2024-06-07 13:08] LABS: Basophils Percent Auto 0.6 % (0.2-2.0); Hematocrit 39.3 % (36.0-48.0); Hemoglobin 13.3 g/dL (12.0-16.0); Immature Granulocytes Abs Auto 0.01 10^3/uL (0.00-0.03); Immature Granulocytes Pct Auto 0.2 % (0.0-0.5); Lymphocytes Percent Auto 18.6 % (20.5-60.0); Mean Corpuscular HGB Conc 33.8 g/dL (29.9-35.2); Mean Corpuscular Volume 88.5 fL (81.0-99.0); Mean Platelet Volume 9.2 fL (9.5-13.5); Monocytes Absolute Auto 0.2 10^3/uL (0.3-0.8); Monocytes Percent Auto 4.5 % (1.7-12.0); Neutrophils Absolute Auto 4.1 10^3/uL (1.4-6.5); Neutrophils Percent Auto 76.1 % (43.0-75.0); Platelet Count 218 10^3/uL (150-450); Red Blood Count 4.44 10^6/uL (4.20-5.40); White Blood Count 5.4 10^3/uL (4.0-11.0)
[2024-06-07 13:10] LABS: Bilirubin Urine NEGATIVE (NEGATIVE); Blood Urine TRACE-I (NEGATIVE); Clarity Urine CLEAR (CLEAR); Color Urine LT. YELLOW (YELLOW); Glucose Urine UA NEGATIVE (NEGATIVE); Ketones Urine TRACE mg/dL (NEGATIVE); Leukocyte Esterase Urine NEGATIVE (NEGATIVE); Nitrite Urine NEGATIVE (NEGATIVE); Protein Urine NEGATIVE (NEG/TRACE); Specific Gravity Urine 1.015 (1.005-1.025); Urobilinogen Urine 0.2 EU/dL (0.2-1.0); pH Urine 6.5 (5.0-9.0)
[2024-06-07 13:26] LABS: Cannabinoid Screen Urine POSITIVE (NEGATIVE); Cocaine Screen Urine NEGATIVE (NEGATIVE); Methamphetamines Screen Urine NEGATIVE (NEGATIVE); Opiate Screen Urine NEGATIVE (NEGATIVE); Phencyclidine Screen Urine NEGATIVE (NEGATIVE)
[2024-06-07 13:27] LABS: Amphetamine Screen Urine NEGATIVE (NEGATIVE); Barbiturates Screen Urine NEGATIVE (NEGATIVE); Benzodiazepines Screen Urine POSITIVE (NEGATIVE); Buprenorphine Screen Urine NEGATIVE (NEGATIVE); Methadone Screen Urine NEGATIVE (NEGATIVE); Oxycodone Screen Urine NEGATIVE (NEGATIVE); Tricyclic Antidepressant Urine NEGATIVE (NEGATIVE)
[2024-06-07 13:28] LABS: Alanine Aminotransferase 26 U/L (14-59); Albumin Globulin Ratio 1.2; Albumin Level 3.8 g/dL (3.4-5.0); Alkaline Phosphatase 53 U/L (46-116); Aspartate Amino Transferase 22 U/L (15-37); BUN Creatinine Ratio 11.6; Bilirubin Total 0.5 mg/dL (0.2-1.0); Calcium 9.9 mg/dL (8.5-10.1); Carbon Dioxide 31.2 mmol/L (21.0-32.0); Chloride 103 mmol/L (98-107); Estimated GFR (African America >60 (>=60 mL/min/1.73m^2); Estimated GFR (Non-African Ame >60 (>=60 mL/min/1.73m^2); Globulin 3.3 g/dL; Glucose 124 mg/dL (74-106); Potassium 4.2 mmol/L (3.5-5.1); Sodium 141 mmol/L (136-145); Total Protein 7.1 g/dL (6.4-8.2)
[2024-06-07 13:29] LABS: Bacteria Urine NONE SEEN #/HPF (NONE SEEN); Mucus Urine TRACE (NONE SEEN); RBC Urine 0-2 #/HPF (0-2); WBC Urine 0-2 #/HPF (NONE SEEN)
[2024-06-07 13:30] LABS: Cast Seen? NONE SEEN #/LPF (NONE SEEN); Crystals Seen? None Seen #/HPF (None Seen); Squamous Epithelial Cell Urine RARE #/LPF (NONE/RARE); Urine Culture Indicated NO
--- NOTE | 2024-06-07 14:08 | ED_ITS ---
HPI HPI - General Adult General Chief complaint: Altered Mental Status Stated complaint: mental health issue Time Seen by Provider: 06/07/24 12:10 Source: family Mode of arrival: walk-in History of Present Illness HPI narrative: Patient presents to ED complain of abnormal thoughts. She has a history of Parkinson's and Lewy body dementia. She was brought in by her because she is been getting worse at home. Patient has been stating that she has killed her grandchildren and her children and she has their bodies and bags and things of this nature. She said she is just very anxious that something is wrong with them. She does not want to harm any of them she just has these feelings and thoughts that something is wrong with them and that their bodies are in bags. She denies any homicidal or suicidal ideation. She states she is not hearing things or seeing things if she has thoughts that come up. The called the neurologist today and he said to have her come in to the emergency room for evaluation. He said there could be an infection or intracranial hemorrhage or other things of that nature so he wanted her evaluated in the emergency room. She is currently on Aricept which is a newer medication for her and she is weaning down on her Haldol. Patient has no other acute complaints at this time. Related Data Home Medications ?Medication ?Instructions ?Recorded ?Confirmed hydroxyzine HCl 25 mg tablet 25 mg PO Q8H PRN anxiety 07/17/23 06/07/24 mirtazapine 7.5 mg tablet 7.5 mg PO .QHS 07/17/23 06/07/24 haloperidol 0.5 mg tablet 1 mg PO DAILY 10/01/23 06/07/24 Previous Rx's ?Medication ?Instructions ?Recorded alprazolam 0.25 mg tablet (Xanax) 0.25 mg PO BID PRN anxiety 3 days 06/05/24 #6 tabs Allergies Allergy/AdvReac Type Severity Reaction Status Date / Time No Known Drug Allergies Allergy Verified 06/07/24 12:24 Opioid HPI Opioid Management Most Recent Opioid Data: Ur Phencyclidine Scrn Negative (NEGATIVE) 06/07/24 12:45 05/18 07/11 Review of Systems ROS Status of ROS 10 or more systems reviewed and unremark able except as noted in history and below PFSH PFSH Medical History Normal colonoscopy PSVT (paroxysmal supraventricular tachycardia) ?I47.1 - Supraventricular tachycardia (ICD-10) Positive colorectal cancer screening using Cologuard test ?R19.5 - Other fecal abnormalities (ICD-10) Osteopenia ?M85.80 - Other specified disorders of bone density and structure, unspecified site (ICD-10) Orthostatic hypotension ?I95.1 - Orthostatic hypotension (ICD-10) GERD (gastroesophageal reflux disease) ?K21.9 - Gastro-esophageal reflux disease without esophagitis (ICD-10) Abdominal pain ?R10.9 - Unspecified abdominal pain (ICD-10) DALILA (generalized anxiety disorder) ?F41.1 - Generalized anxiety disorder (ICD-10) Dyslipidemia ?E78.5 - Hyperlipidemia, unspecified (ICD-10) Chronic constipation ?K59.09 - Other constipation (ICD-10) Change in bowel habits ?R19.4 - Change in bowel habit (ICD-10) Cervical disc disease ?M50.90 - Cervical disc disorder, unspecified, unspecified cervical region (ICD-10) Surgical History H/O vaginal hysterectomy ?Z90.710 - Acquired absence of both cervix and uterus (ICD-10) H/O dilation and curettage ?Z98.890 - Other specified postprocedural states (ICD-10) Hx of tonsillectomy ?Z90.89 - Acquired absence of other organs (ICD-10) History of adenoidectomy ?Z90.89 - Acquired absence of other organs (ICD-10) History of carpal tunnel release ?Z98.890 - Other specified postprocedural states (ICD-10) Family History Other Alcoholism Cardiac arrhythmia Heart disease Hypertension Multiple myeloma Pancreatic adenocarcinoma Pancreatic cancer Social History Within the past year, how often did you have a drink containing alcohol: never Score interpretation: A score less than 3 is consistent with normal alcohol consumption. 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 Respiratory: Lungs CTA, respirations non labored. Extremities: no deformity, no trauma. Neurological: oriented at baseline, abnormal thoughts reported, answering questions appropriately here in ED Constitutional Vital Signs, click to edit/add: Last Vital Signs Temp 98 F 06/07/24 12:27 Pulse 72 06/07/24 14:12 Resp 16 06/07/24 14:12 BP 117/68 06/07/24 14:12 Pulse Ox 96 06/07/24 14:12 O2 Del Method Room Air 06/07/24 12:27 Course Vital Signs Vital signs: Vital Signs Temperature 98 F 06/07/24 12:27 Pulse Rate 83 06/07/24 12:27 Respiratory Rate 18 06/07/24 12:27 Blood Pressure 153/82 H 06/07/24 12:27 Pulse Oximetry 99 06/07/24 12:27 Oxygen Delivery Method Room Air 06/07/24 12:27 Temperature 98 F 06/07/24 12:27 Pulse Rate 72 06/07/24 14:12 Respiratory Rate 16 06/07/24 14:12 Blood Pressure 117/68 06/07/24 14:12 Pulse Oximetry 96 06/07/24 14:12 Oxygen Delivery Method Room Air 06/07/24 12:27 Medical Decision Making MDM Narrative Medical decision making narrative: Patient's lab and imaging are nonacute. Patient has no intracranial hemorrhage no urinary tract infection. Patient was evaluated by [facility]. They have an outpatient plan in place and do not think that inpatient admission is indicated. The seems very comfortable with this plan as well. Viral and states that they will loop in her neurologist and go over the care plan as well so I did not contact him. I also relayed this information to the so that he can schedule a follow-up appointment with the neurologist as needed and the plan is in place with the mental health plan. Patient is stable and comfortable with care plan for home Differential Diagnosis Differential Diagnosis: UTI, intracranial hemorrhage, electrolyte abnormality, psychosis, dementia, Medical Records Medical records reviewed: Yes I reviewed the patient's medical records Lab Data Lab results reviewed: Yes I reviewed the patient's lab results Labs: Lab Results 06/07/24 06/07/24 Range/Units 12:45 13:04 WBC 5.4 (4.0-11.0) 10^3/uL RBC 4.44 (4.20-5.40) 10^6/uL Hgb 13.3 (12.0-16.0) g/dL Hct 39.3 (36.0-48.0) % MCV 88.5 (81.0-99.0) fL MCH 30.0 (26.7-34.0) pg MCHC 33.8 (29.9-35.2) g/dL RDW 12.0 (11.0-15.0) % Plt Count 218 (150-450) 10^3/uL MPV 9.2 L (9.5-13.5) fL Neut % (Auto) 76.1 H (43.0-75.0) % Lymph % (Auto) 18.6 L (20.5-60.0) % [place] % (Auto) 4.5 (1.7-12.0) % Eos % (Auto) 0.0 L (0.9-7.0) % Baso % (Auto) 0.6 (0.2-2.0) % Neut # (Auto) 4.1 (1.4-6.5) 10^3/uL Lymph # (Auto) 1.0 L (1.2-3.8) 10^3/uL [place] # (Auto) 0.2 L (0.3-0.8) 10^3/uL Eos # (Auto) 0.0 (0.0-0.7) 10^3/uL Baso # (Auto) 0.0 (0.0-0.1) 10^3/uL Abs Immat Gran (auto) 0.01 (0.00-0.03) 10^3/uL Imm/Tot Granulo (auto) 0.2 (0.0-0.5) % Sodium 141 (136-145) mmol/L Potassium 4.2 (3.5-5.1) mmol/L Chloride 103 (98-107) mmol/L Carbon Dioxide 31.2 (21.0-32.0) mmol/L Anion Gap 11.0 BUN 10.0 (7.0-18.0) mg/dL Creatinine 0.86 (0.55-1.02) mg/dL Est GFR ( Amer) >60 (>=60 mL/min/1.73m^2) Est GFR (Non-Af Amer) >60 (>=60 mL/min/1.73m^2) BUN/Creatinine Ratio 11.6 Glucose 124 H (74-106) mg/dL Calcium 9.9 (8.5-10.1) mg/dL Total Bilirubin 0.5 (0.2-1.0) mg/dL AST 22 (15-37) U/L ALT 26 (14-59) U/L Alkaline Phosphatase 53 (46-116) U/L Total Protein 7.1 (6.4-8.2) g/dL Albumin 3.8 (3.4-5.0) g/dL Globulin 3.3 g/dL Albumin/Globulin Ratio 1.2 Urine Color Lt. yellow (YELLOW) Urine Clarity Clear (CLEAR) Urine pH 6.5 (5.0-9.0) Ur Specific [place] 1.015 (1.005-1.025) Urine Protein Negative (NEG/TRACE) mg/dL Urine Glucose (UA) Negative (NEGATIVE) mg/dL Urine Ketones Trace A (NEGATIVE) mg/dL Urine Occult Blood Trace-i (NEGATIVE) Urine Nitrite Negative (NEGATIVE) Urine Bilirubin Negative (NEGATIVE) Urine Urobilinogen 0.2 (0.2-1.0) EU/dL Ur Leukocyte Esterase Negative (NEGATIVE) Urine RBC 0-2 (0-2) #/HPF Urine WBC 0-2 A (NONE SEEN) #/HPF Ur Squamous Epith Cells Rare (NONE/RARE) #/LPF Urine Crystals None seen (None Seen) #/HPF Urine Bacteria None seen (NONE SEEN) #/HPF Urine Casts None seen (NONE SEEN) #/LPF Urine Mucus Trace A (NONE SEEN) Ur Culture Indicated? No Urine Opiates Screen Negative (NEGATIVE) Ur Buprenorphine Scrn Negative (NEGATIVE) Ur Oxycodone Screen Negative (NEGATIVE) Urine Methadone Screen Negative (NEGATIVE) Ur Barbiturates Screen Negative (NEGATIVE) U Tricyclic Antidepress Negative (NEGATIVE) Ur Phencyclidine Scrn Negative (NEGATIVE) Ur Amphetamines Screen Negative (NEGATIVE) U Methamphetamines Scrn Negative (NEGATIVE) U Benzodiazepines Scrn Positive A (NEGATIVE) Urine Cocaine Screen Negative (NEGATIVE) U Cannabinoids Screen Positive A (NEGATIVE) Imaging Data CT scan - head: Radiologist's impression: ITS Impressions Head CT 06/07/24 12:37 IMPRESSION: 1. No intracranial hemorrhage, mass, or suspicious findings to account for patient's symptoms. 2. Stable age consistent chronic changes. Electronically authenticated by: HERSON REBOLLEDO Date: 06/07/2024 13:17 ECG Data Attestation: I personally reviewed and interpreted this ECG as follows: Interpretation: EKG INTERPRETATION Time: [] 124 Rate: [] 75 Rhythm: _ [] Normal sinus rhythm ST segments: _ [] No acute ST elevation or depression T waves: _ [] Ectopy: _ [] P wave/DE interval: _ [] QRS interval: _ [] QT interval: _ [] Comparison: _ [] Comparison EKG date: [] Performed by: [self] Discharge Plan Discharge Chief Complaint: Altered Mental Status Clinical Impression: Anxiety, Dementia Patient Disposition: Home, Self-Care Time of Disposition Decision: 15:42 Condition: Fair Mode of Transportation: Private Vehicle Prescriptions / Home Meds: No Action haloperidol 0.5 mg tablet 1 mg PO DAILY alprazolam [Xanax] 0.25 mg tablet 0.25 mg PO BID PRN (Reason: anxiety) 3 Days Qty: 6 0RF mirtazapine 7.5 mg tablet 7.5 mg PO .QHS hydroxyzine HCl 25 mg tablet 25 mg PO Q8H PRN (Reason: anxiety) Print Language: Maori Instructions: Dementia (ED), Anxiety (ED) Referrals: Remigio Hoyos MD [Primary Care Provider] - 1 week
[2024-06-07 14:12] VITALS: BP 117/68; PULSE 72; O2SAT 96
== END 2024-06-07 15:52 | disposition home or self-care (01) ==
PROVIDERS: Emergency Provider Emergency Medicine; PCP Family Medicine
DX: G31.83 Neurocognitive disorder with Lewy bodies (principal); G20.A1 Parkinson's disease without dyskinesia, without mention of fluctuations; F02.84 Dementia in other diseases classified elsewhere, unspecified severity, with anxiety; Z90.710 Acquired absence of both cervix and uterus; Z79.899 Other long term (current) drug therapy
CPT/HCPCS: 36415; 70450; 80053; 80307; 81001; 85025; 93005; 99285

== ENCOUNTER 2024-07-10 12:16 | Outpatient (REF) | payer MEDICARE, OTHER, SELFPAY ==
[2024-07-10 12:43] LABS: Bilirubin Urine NEGATIVE (NEGATIVE); Blood Urine TRACE-I (NEGATIVE); Clarity Urine CLEAR (CLEAR); Color Urine LT. YELLOW (YELLOW); Glucose Urine UA NEGATIVE (NEGATIVE); Ketones Urine TRACE mg/dL (NEGATIVE); Leukocyte Esterase Urine NEGATIVE (NEGATIVE); Nitrite Urine NEGATIVE (NEGATIVE); Protein Urine NEGATIVE (NEG/TRACE); Specific Gravity Urine 1.015 (1.005-1.025); Urobilinogen Urine 0.2 EU/dL (0.2-1.0); pH Urine 5.5 (5.0-9.0)
[2024-07-10 12:46] LABS: Urine Microscopic Indicated YES
[2024-07-10 12:52] LABS: Bacteria Urine TRACE #/HPF (NONE SEEN); Cast Seen? NONE SEEN #/LPF (NONE SEEN); Crystals Seen? None Seen #/HPF (None Seen); Mucus Urine SMALL (NONE SEEN); RBC Urine 0-2 #/HPF (0-2); Squamous Epithelial Cell Urine FEW #/LPF (NONE/RARE); Urine Culture Indicated ALREADY ORDERED; WBC Urine NONE SEEN #/HPF (NONE SEEN)
== END 2024-07-10 12:17 | disposition home or self-care (01) ==
LOC: LAB 12:16
PROVIDERS: PCP Family Medicine; Visit Provider Family Medicine
DX: R30.0 Dysuria (principal)
CPT/HCPCS: 81001; 87086

== ENCOUNTER 2024-07-10 15:47 | Emergency (ER) | payer MEDICARE, OTHER, SELFPAY ==
[2024-07-10 16:03] VITALS: BP 126/67; PULSE 82; TEMP 36.7; O2SAT 98; BMI 26.5
== END 2024-07-10 18:01 | disposition left against medical advice (07) ==
PROVIDERS: Emergency Provider Emergency Medicine; PCP Family Medicine
DX: Z53.21 Procedure and treatment not carried out due to patient leaving prior to being seen by health care provider (principal)

== ENCOUNTER 2024-09-11 09:36 | Emergency (ER) | payer MEDICARE, OTHER, SELFPAY ==
[2024-09-11] VITALS (22 sets, daily range): BP systolic 95–119; BP diastolic 51–65; PULSE 75–82; TEMP 37.7; O2SAT 94–99; BMI 28.3
--- NOTE | 2024-09-11 09:55 | ECG_ITS ---
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 Measurements Intervals [place] Rate: 80 P: 58 VT: 148 QRS: 5 QRSD: 76 T: 65 QT: 354 QTc: 390 Interpretive Statements 1100 Sinus rhythm 9110 normal ECG Compared to ECG 06/07/2024 12:44:20 No significant changes Electronically Signed On 09-11-2024 16:08:11 EDT by JONY AYALA M.D.
[2024-09-11] MEDS: 0.9 % SODIUM CHLORIDE 1,000 ML 500 ML IV (10:07)
[2024-09-11 10:08] LABS: Basophils Percent Auto 0.2 % (0.2-2.0); Eosinophils Percent Auto 0.3 % (0.9-7.0); Hematocrit 37.2 % (36.0-48.0); Hemoglobin 12.3 g/dL (12.0-16.0); Immature Granulocytes Abs Auto 0.02 10^3/uL (0.00-0.03); Immature Granulocytes Pct Auto 0.3 % (0.0-0.5); Lymphocytes Absolute Auto 0.8 10^3/uL (1.2-3.8); Lymphocytes Percent Auto 13.4 % (20.5-60.0); Mean Corpuscular HGB Conc 33.1 g/dL (29.9-35.2); Mean Corpuscular Hemoglobin 30.4 pg (26.7-34.0); Mean Corpuscular Volume 92.1 fL (81.0-99.0); Mean Platelet Volume 9.6 fL (9.5-13.5); Monocytes Absolute Auto 0.3 10^3/uL (0.3-0.8); Monocytes Percent Auto 5.2 % (1.7-12.0); Neutrophils Absolute Auto 4.9 10^3/uL (1.4-6.5); Neutrophils Percent Auto 80.6 % (43.0-75.0); Platelet Count 206 10^3/uL (150-450); Red Blood Count 4.04 10^6/uL (4.20-5.40); Red Cell Distribution Width 13.4 % (11.0-15.0); White Blood Count 6.1 10^3/uL (4.0-11.0)
[2024-09-11 10:16] LABS: INR 1.14; Prothrombin Time 11.9 sec (9.0-11.6)
[2024-09-11 10:23] LABS: Alanine Aminotransferase 58 U/L (14-59); Alkaline Phosphatase 58 U/L (46-116); Anion Gap 9.4; Aspartate Amino Transferase 77 U/L (15-37); BUN Creatinine Ratio 19.3; Bilirubin Total 0.7 mg/dL (0.2-1.0); Calcium 8.8 mg/dL (8.5-10.1); Carbon Dioxide 29.4 mmol/L (21.0-32.0); Chloride 103 mmol/L (98-107); Estimated GFR (African America >60 (>=60 mL/min/1.73m^2); Estimated GFR (Non-African Ame >60 (>=60 mL/min/1.73m^2); Globulin 3.1 g/dL; Glucose 123 mg/dL (74-106); Potassium 3.8 mmol/L (3.5-5.1); Sodium 138 mmol/L (136-145); Total Protein 6.1 g/dL (6.4-8.2)
[2024-09-11 10:24] LABS: Influenza Virus A Antigen Negative; Influenza Virus B Antigen Negative; Internal Control Within Normal Limits
[2024-09-11 10:25] LABS: Internal Control Within Normal Limits; SARS-CoV-2 Ag NEGATIVE (NEGATIVE)
[2024-09-11 10:28] LABS: Magnesium 1.8 mg/dL (1.8-2.4); Troponin I High Sensitivity 4.5 pg/mL (4.0-51.3)
--- NOTE | 2024-09-11 11:02 | ED.WEAKNESS1 ---
HPI - Weakness General Chief complaint: Weakness Stated complaint: LATHARGIC, WEAKNESS, Time Seen by Provider: 09/11/24 09:41 Source: patient and family Mode of arrival: Wheelchair Limitations: no limitations History of Present Illness HPI Narrative: The patient is a 68 years old female with a known history of Alzheimer or possibly Lewy body dementia, is coming to the ER with a concern that she had nausea and vomiting on Wednesday which 3 days ago after which she has not been eating and drinking and she is complaining of left hip pain, in addition to the fact that she has been having generalized weakness. No more vomiting since then Related Data Home Medications ?Medication ?Instructions ?Recorded ?Confirmed atorvastatin 10 mg tablet 10 mg PO BEDTIME 07/10/24 09/11/24 alprazolam 0.25 mg tablet 0.25 mg PO BID PRN anxiety 09/11/24 09/11/24 lactulose 10 gram/15 mL oral 10 g PO BID 09/11/24 09/11/24 solution (Enulose) olanzapine 2.5 mg tablet 2.5 mg PO DAILY 09/11/24 09/11/24 sennosides 8.6 mg tablet (Maria R-rayshawn) 8.6 mg PO DAILY 09/11/24 09/11/24 sertraline 25 mg tablet 25 mg PO QDAY 09/11/24 09/11/24 Allergies Allergy/AdvReac Type Severity Reaction Status Date / Time No Known Drug Allergies Allergy Verified 06/07/24 12:24 Review of Systems ROS Status of ROS 10 or more systems reviewed and unremarkable except as noted in history and below [facility] Medical History Normal colonoscopy PSVT (paroxysmal supraventricular tachycardia) ?I47.1 - Supraventricular tachycardia (ICD-10) Positive colorectal cancer screening using Cologuard test ?R19.5 - Other fecal abnormalities (ICD-10) Osteopenia ?M85.80 - Other specified disorders of bone density and structure, unspecified site (ICD-10) Orthostatic hypotension ?I95.1 - Orthostatic hypotension (ICD-10) GERD (gastroesophageal reflux disease) ?K21.9 - Gastro-esophageal reflux disease without esophagitis (ICD-10) Abdominal pain ?R10.9 - Unspecified abdominal pain (ICD-10) DALILA (generalized anxiety disorder) ?F41.1 - Generalized anxiety disorder (ICD-10) Dyslipidemia ?E78.5 - Hyperlipidemia, unspecified (ICD-10) Chronic constipation ?K59.09 - Other constipation (ICD-10) Change in bowel habits ?R19.4 - Change in bowel habit (ICD-10) Cervical disc disease ?M50.90 - Cervical disc disorder, unspecified, unspecified cervical region (ICD-10) Surgical History H/O vaginal hysterectomy ?Z90.710 - Acquired absence of both cervix and uterus (ICD-10) H/O dilation and curettage ?Z98.890 - Other specified postprocedural states (ICD-10) Hx of tonsillectomy ?Z90.89 - Acquired absence of other organs (ICD-10) History of adenoidectomy ?Z90.89 - Acquired absence of other organs (ICD-10) History of carpal tunnel release ?Z98.890 - Other specified postprocedural states (ICD-10) Family History Other Alcoholism Cardiac arrhythmia Heart disease Hypertension Multiple myeloma Pancreatic adenocarcinoma Pancreatic cancer Social History Within the past year, how often did you have a drink containing alcohol: never Score interpretation: A score less than 3 is consistent with normal alcohol consumption. 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 General: Weak and in no apparent distress. Skin: Warm, dry, no pallor noted. No rash. Head: Normocephalic, atraumatic. Neck: Supple, non-tender. Eye: Pupils are equal, round and EOMI. No scleral icterus. Ears, Nose, Mouth, and Throat: TM are clear, no nasal mucosal hypertrophy. Oral mucosa is moist, no posterior oropharynx erythema, uvula is mid-line Cardiovascular: Regular Rate and Rhythm without murmur, gallop or rub. Respiratory: No accessory muscle use or respiratory distress. Lungs are clear to auscultation, no wheezing, rales or rhonchi Chest Wall: no tenderness Back: No midline thoracic or lumbar vertebral tenderness. No CVA tenderness Musculoskeletal: normal ROM, no calf or popliteal tenderness, there is a mild 1+ edema both ankles and there is a left hip pain with movement GI: Abdomen is soft, non-distended. Normal bowel sounds. No masses appreciated. No tenderness to palpation. No rebound, guarding, or rigidity noted. Neurological: A&O x1 No cranial nerve dysfunction observed. Moves all extremities. Sensation intact. Psychiatric: Cooperative and interactive. Normal mood and affect. Constitutional Vital Signs, click to edit/add: Last Vital Signs Temp 99.9 F 09/11/24 09:47 Pulse 77 09/11/24 11:20 Resp 14 09/11/24 11:20 BP 106/53 09/11/24 11:00 Pulse Ox 96 09/11/24 10:50 O2 Del Method Room Air 09/11/24 10:15 Course Vital Signs Vital signs: Vital Signs Pulse Oximetry 95 09/11/24 09:46 Temperature 99.9 F 09/11/24 09:47 Pulse Rate 77 09/11/24 11:20 Respiratory Rate 14 09/11/24 11:20 Blood Pressure 106/53 09/11/24 11:00 Pulse Oximetry 96 09/11/24 10:50 Oxygen Delivery Method Room Air 09/11/24 10:15 MDM - Weakness MDM Narrative Medical decision making narrative: The patient EKG showing sinus rhythm with a heart rate of [address] elevation or depression Urinalysis showed no UTI CBC and chemistry showed no acute pathology X-ray of the patient's left hip shows osteoarthritis Patient is feeling much better after initial treatment with hydration Patient was discharged with her to follow-up with Dr. Hoyos within this week The patient is to follow up with primary care physician in next 2-3 days or to return to the emergency department should any of the signs or symptoms worsen or new symptoms develop. The patient agrees with the following Diagnosis and Treatment plan and the patient will be discharged home. Lab Data Labs: Lab Results 09/11/24 09/11/24 Range/Units 09:55 11:26 WBC 6.1 (4.0-11.0) 10^3/uL RBC 4.04 L (4.20-5.40) 10^6/uL Hgb 12.3 (12.0-16.0) g/dL Hct 37.2 (36.0-48.0) % MCV 92.1 (81.0-99.0) fL MCH 30.4 (26.7-34.0) pg MCHC 33.1 (29.9-35.2) g/dL RDW 13.4 (11.0-15.0) % Plt Count 206 (150-450) 10^3/uL MPV 9.6 (9.5-13.5) fL Neut % (Auto) 80.6 H (43.0-75.0) % Lymph % (Auto) 13.4 L (20.5-60.0) % [place] % (Auto) 5.2 (1.7-12.0) % Eos % (Auto) 0.3 L (0.9-7.0) % Baso % (Auto) 0.2 (0.2-2.0) % Neut # (Auto) 4.9 (1.4-6.5) 10^3/uL Lymph # (Auto) 0.8 L (1.2-3.8) 10^3/uL [place] # (Auto) 0.3 (0.3-0.8) 10^3/uL Eos # (Auto) 0.0 (0.0-0.7) 10^3/uL Baso # (Auto) 0.0 (0.0-0.1) 10^3/uL Abs Immat Gran (auto) 0.02 (0.00-0.03) 10^3/uL Imm/Tot Granulo (auto) 0.3 (0.0-0.5) % PT 11.9 H (9.0-11.6) sec INR 1.14 Sodium 138 (136-145) mmol/L Potassium 3.8 (3.5-5.1) mmol/L Chloride 103 (98-107) mmol/L Carbon Dioxide 29.4 (21.0-32.0) mmol/L Anion Gap 9.4 BUN 17.0 (7.0-18.0) mg/dL Creatinine 0.88 (0.55-1.02) mg/dL Est GFR ( Amer) >60 (>=60 mL/min/1.73m^2) Est GFR (Non-Af Amer) >60 (>=60 mL/min/1.73m^2) BUN/Creatinine Ratio 19.3 Glucose 123 H (74-106) mg/dL Calcium 8.8 (8.5-10.1) mg/dL Magnesium 1.8 (1.8-2.4) mg/dL Total Bilirubin 0.7 (0.2-1.0) mg/dL AST 77 H (15-37) U/L ALT 58 (14-59) U/L Alkaline Phosphatase 58 (46-116) U/L Troponin I High Sens 4.5 (4.0-51.3) pg/mL Total Protein 6.1 L (6.4-8.2) g/dL Albumin 3.0 L (3.4-5.0) g/dL Globulin 3.1 g/dL Albumin/Globulin Ratio 1.0 Urine Color Yellow (YELLOW) Urine Clarity Clear (CLEAR) Urine pH 6.0 (5.0-9.0) Ur Specific [place] 1.025 (1.005-1.025) Urine Protein 30 A (NEG/TRACE) mg/dL Urine Glucose (UA) Negative (NEGATIVE) mg/dL Urine Ketones Negative (NEGATIVE) mg/dL Urine Occult Blood Small A (NEGATIVE) Urine Nitrite Negative (NEGATIVE) Urine Bilirubin Negative (NEGATIVE) Urine Urobilinogen 1.0 (0.2-1.0) EU/dL Ur Leukocyte Esterase Negative (NEGATIVE) Urine RBC 0-2 (0-2) #/HPF Urine WBC 0-2 A (NONE SEEN) #/HPF Ur Squamous Epith Cells Few A (NONE/RARE) #/LPF Urine Crystals None seen (None Seen) #/HPF Urine Bacteria Trace A (NONE SEEN) #/HPF Urine Casts None seen (NONE SEEN) #/LPF Urine Mucus None seen (NONE SEEN) Ur Culture Indicated? No Influenza Type A Ag Negative Influenza Type B Ag Negative SARS-CoV-2 Ag (CV2AG) Negative (NEGATIVE) Discharge Plan Discharge Chief Complaint: Weakness Clinical Impression: Weakness Patient Disposition: Home, Self-Care Time of Disposition Decision: 13:22 Condition: Good Prescriptions / Home Meds: No Action atorvastatin 10 mg tablet 10 mg PO BEDTIME lactulose [Enulose] 10 gram/15 mL solution 10 g PO BID olanzapine 2.5 mg tablet 2.5 mg PO DAILY sertraline 25 mg tablet 25 mg PO QDAY sennosides [Maria R-rayshawn] 8.6 mg tablet 8.6 mg PO DAILY alprazolam 0.25 mg tablet 0.25 mg PO BID PRN (Reason: anxiety) Print Language: Citizen Of [place] Instructions: Weakness (ED) Referrals: Remigio Hoyos MD [Primary Care Provider] - 1 week
[2024-09-11 11:48] LABS: Bilirubin Urine NEGATIVE (NEGATIVE); Blood Urine SMALL (NEGATIVE); Clarity Urine CLEAR (CLEAR); Color Urine YELLOW (YELLOW); Glucose Urine UA NEGATIVE (NEGATIVE); Ketones Urine NEGATIVE (NEGATIVE); Leukocyte Esterase Urine NEGATIVE (NEGATIVE); Nitrite Urine NEGATIVE (NEGATIVE); Protein Urine 30 mg/dL (NEG/TRACE); Specific Gravity Urine 1.025 (1.005-1.025)
[2024-09-11 11:50] LABS: Urine Microscopic Indicated YES
[2024-09-11 12:21] LABS: Bacteria Urine TRACE #/HPF (NONE SEEN); Cast Seen? NONE SEEN #/LPF (NONE SEEN); Crystals Seen? None Seen #/HPF (None Seen); Mucus Urine NONE SEEN (NONE SEEN); RBC Urine 0-2 #/HPF (0-2); Squamous Epithelial Cell Urine FEW #/LPF (NONE/RARE); Urine Culture Indicated NO; WBC Urine 0-2 #/HPF (NONE SEEN)
--- NOTE | 2024-09-12 12:15 | SWNOTE1 ---
SW did receive call from a palliative care team and they have accepted pt for care. They will be contacting pt. SW unsure of where referral came from.
== END 2024-09-11 13:39 | disposition home or self-care (01) ==
PROVIDERS: Emergency Provider Emergency Medicine; PCP Family Medicine
DX: R53.1 Weakness (principal); M16.12 Unilateral primary osteoarthritis, left hip; Z90.710 Acquired absence of both cervix and uterus; R50.9 Fever, unspecified; M25.552 Pain in left hip
CPT/HCPCS: 36415; 73502; 80053; 81001; 83735; 84484; 85025; 85610; 87804; 87811; 93005; 99285

== ENCOUNTER 2025-03-17 10:11 | Outpatient (OUT) | payer MEDICARE, OTHER, SELFPAY ==
--- OUTSIDE RECORDS SUMMARY | 2025-03-14 11:33 | XMS_ITS | Clinical Summary ---
Author Organization [facility] Address [address] [place] [address] Care Team Providers Care Ward Attendant Name Role Phone Remigio Hoyos MD Primary Care Provider [phone] Vasyl Cobos DO Unavailable [phone] Remigio Hoyos MD Unavailable Allergies Active AllergyReactionsCriticalityNoted DateCommentsAlprazolamHallucinations, Wvpjagw3007/19/2023 Medications MedicationSigDispense QuantityRefillsLast FilledStart DateEnd DateStatus lactulose (Chronulac) 10 GM/15ML solution Indications:Constipation, chronicTake 15 mL (10 g) by mouth in the morning and 15 mL (10 g) before bedtime. 900 mL 11106/18/9157165Active atorvastatin (Lipitor) 10 MG tablet Indications:DyslipidemiaTake 1 tablet (10 mg) by mouth Daily 30 tablet 11008/07/9020336Active sertraline (Zoloft) 25 MG tablet Indications:Constipation, unspecified constipation typeTake 1 tablet (25 mg) by mouth Daily 90 tablet ctive senna-docusate sodium (Senokot-S) 8.6-50 MG tablet Indications:Constipation, unspecified constipation typeTake 2 tablets by mouth in the morning and 2 tablets before bedtime. 360 tablet ctive OLANZapine (ZyPREXA) 2.5 MG tablet Indications:Constipation, unspecified constipation typeTake 1 tablet (2.5 mg) by mouth at bedtime 90 tablet ctive diazePAM (Valium) 5 MG tablet Indications:DALILA (generalized anxiety disorder)TAKE 1 TABLET BY MOUTH FOUR TIMES A DAY NEEDED FOR ANXIETY FOR 10 DAYS 40 tablet 5Active Active Problems ProblemNoted DateDiagnosed LvqsJhwupbelinj86/30/2025 Assessment & Plan (09/13/2024 2:50 PM EDT): Improved after IV fluids and encourage PO intake. Nausea and omhogltu76/30/2025 Assessment & Plan (09/13/2024 2:51 PM EDT): No further symptoms and use medication PRN. Lewy body dementia with behavioral /04/2024 Assessment & Plan (10/04/2024 2:43 PM EDT): Symptoms stable and continue medication. Yoana is in need of a power wheelchair due to dizziness, bilateral OA of knees, dementia, and upper and lower extremity weakness. The chair will help complete MRADLs. Assessment & Plan (08/02/2024 2:54 PM EDT): Hospitalized on several occasions and not functioning well. Continue medication and follow with psychiatry. Okay to continue THC edibles. Secondary xjdehppnavxr87/04/2024Unsteady gait12/24/2023ilateral primary osteoarthritis of knee12/24/2023 Assessment & Plan (12/24/2023 10:06 AM EDT): Worsening symptoms and severe weakness. Will order evaluation for power mobility chair to assist with ADLs around the house. Primary qqyxyiyq79/29/4996Stykvsmxp14/23/2024Family history of sihkxf0909/07/2023 Rilaaog4609/07/2023Moderate protein-calorie malnutrition ([facility])09/07/2023 Personal history of COVID-19007/24/2023mbulatory cmgkdecrias09/04/2024Encounter for wheelchair fhxwxdfian50/04/2024ecurrent UTI06/29/2023MDD (major depressive disorder), recurrent episode, mild06/09/2023 Assessment & Plan (06/09/2023 4:40 PM EST): Mood improved with medication adjustment and follow up with psychiatry. Generalized zqotojmg60/24/2024 Assessment & Plan (06/09/2023 4:40 PM EST): Will place referral to home health for assessment of needs. Likely will benefit from at least PT. Constipation, nudwgst8405/28/2023DD (degenerative disc disease), cervical 05/28/20236000Iyuqbkulnbjp83/12/2024Olecranon bursitis of right elbow05/28/2023 Orthostatic yexxcnulkwf41/12/2024Encounter for long-term (current) use of mcmiarbiczc94/26/2023AD (generalized anxiety disorder)04/30/2023PPV (benign paroxysmal positional vertigo), unspecified upvdqiiubp93/17/2023izziness 12/31/2022 Assessment & Plan (12/24/2023 10:06 AM EDT): Worsening symptoms and severe weakness. Will order evaluation for power mobility chair to assist with ADLs around the house. Paroxysmal supraventricular vvoyhbgktuc96/04/2022 Resolved Problems ProblemNoted DateDiagnosed DateResolved DateRapidly progressive dementia Assessment & Plan (12/24/2023 10:06 AM EDT): Worsening symptoms and severe weakness. Will order evaluation for power mobility chair to assist with ADLs around the house. Metabolic ocgzclwcbuvhqq24Mild neurocognitive disorder Assessment & Plan (06/09/2023 4:40 PM EST): Mood improved with medication adjustment and follow up with psychiatry. Carpal tunnel xqxirkis19/01/2024Neck pain Encounters DateTypeDepartmentCare WwgbHcrwffcpgdm35/23/2025 9:15 AM EDTOffice Visit [facility] [address] [place] [address] Ulices Uribe, DPM Dermatophytosis of nail (Primary Dx); Dystrophic nail; Pain around toenail, right foot; Pain around toenail, left foot02/06/2025amboo flowsheet [facility] [address] [place] [address] Ulices Uribe DPM 02/06/20257146Tcnwig51/22/4014Fowrdn84/19/2025Refill [facility] [address] [place] [phone] Remigio Hoyos MD DALILA (generalized anxiety disorder)from Last 3 Months Immunizations ImmunizationAdministration DatesNext DueHep B, Adolescent or Sxkkppvfl94/04/2003 ,02/16/2003Hep B, adult07/20/2003Influenza, High Dose Seasonal, Preservative Free05/15/2024,01/25/2019Influenza, High-dose Seasonal, Quadrivalent, Preservative Free02/22/2022Influenza, Seasonal, Quadrivalent, Adjuvanted 02/18/2023,02/14/2021,02/21/2020Influenza, injectable, quadrivalent, preservative free02/15/2018Influenza, seasonal, jaqwbguwho63/30/2015,03/04/2014 Influenza, seasonal, injectable, preservative free04/14/2017Pneumococcal Polysaccharide VJCR5851 Family History Medical HistoryRelationNameCommentsCancerFatherJames WernerHypertensionFather Carlos WernerArthritisMaternal GrandmotherCorrine HersheyArthritisMotherAnna WernerCancerMotherAnna WernerDepressionMotherAnna WernerHeart diseaseSibling RelationNameStatusCommentsBrotherAlive1 brotherFatherJames WernerDeceased Maternal GrandmotherCorrine HersheyMotherAnna WernerDeceasedSiblingAliveSister Alive1 sister Social History Tobacco UseTypesPacks/DayYears UsedDateSmoking Tobacco: NeverPassive Smoke Exposure: NeverSmokeless Tobacco: Never Tobacco Cessation:Counseling Given: Not Answered Alcohol UseStandard Drinks/WeekCommentsNot Currently0 (1 standard drink = 0.6 oz pure alcohol)Social Connection and Isolation PanelAnswerDate RecordedIn a typical week, how many times do you talk on the phone with family, friends, or neighbors?Twice a week09/08/2023How often do you get together with friends or relatives?Twice a week09/08/2023How often do you attend islam or anglican services?More than 4 times per year09/08/2023o you belong to any clubs or organizations such as islam groups, unions, fraternal or athletic groups, or school groups?No09/08/2023How often do you attend meetings of the clubs or organizations you belong to?Never09/08/2023re you , , , , never , or living with a partner?Raimuix2809/08/2023UDIT-C AnswerDate RecordedQ1: How often do you have a drink containing alcohol?Never 09/08/2023Q2: How many drinks containing alcohol do you have on a typical day when you are drinking?Patient does not drink09/08/2023Q3: How often do you have six or more drinks on one occasion?Never09/08/2023Overall Financial Resource Strain (CARDIA)AnswerDate RecordedHow hard is it for you to pay for the very basics like food, housing, medical care, and heating?Not hard at all09/08/2023 PHQ-2AnswerDate RecordedPatient Health Questionnaire-2 Cijmt556Finheber valley medical center [place] of Occupational Health - Occupational Stress QuestionnaireAnswerDate RecordedDo you feel stress - tense, restless, nervous, or anxious, or unable to sleep at night because yourmind is troubled all the time - these days?Rather much09/08/2023Exercise Vital SignAnswerDate RecordedOn average, how many days per week do you engage in moderate to strenuous exercise (like a brisk walk)?2 days09/08/2023On average, how many minutes do you engage in exercise at this level?20 min09/08/2023Hunger Vital SignAnswerDate RecordedWithin the past 12 months, you worried that your food would run out before you got the money to buy more.Never true09/08/2023Within the past 12 months, the food you bought just didn't last and you didn't have money to get more.Never true09/08/2023RAPARE - TransportationAnswerDate RecordedIn the past 12 months, has lack of transportation kept you from medical appointments or from getting medications?No 09/08/2023In the past 12 months, has lack of transportation kept you from meetings, work, or from getting things needed for daily living?No09/08/2023 Housing Stability Vital SignAnswerDate RecordedIn the last 12 months, was there a time when you were not able to pay the mortgage or rent on time?No09/08/2023 Number of Places Lived in the Last YearNot on file09/08/2023In the last 12 months, was there a time when you did not have a steady place to sleep or slept in ashelter (including now)?No09/08/2023EducationAnswerDate RecordedWhat is the highest level of school you have completed or the highest degree you have received?Associate degree: occupational, technical, or vocational program 3CommentsUnknownSex and Gender InformationValueDate RecordedSex Assigned at BirthNot on fileLegal MffKtlaxh02/15/2023 7:24 PM EDTGender Identity Not on fileSexual OrientationNot on file Last Filed Vital Signs Vital SignReadingTime TakenCommentsBlood Cuvenmdr154/5804 2:21 PM EDT Msuuz4164 2:21 PM PHBKcvsbebejva13.9 ??C (96.6 ??F)09/13/2024 2:21 PM EDTRespiratory Rpnj004709/13/2024 2:21 PM EDTOxygen Rnqljdzwny47%09/13/2024 2:21 PM EDTInhaled Oxygen Concentration--Sprcjn49.8 kg (165 lb)02/06/2025 9:19 AM EDT Kjvspi473.6 cm (5' 4 )02/06/2025 9:19 AM EDTBody Mass Index28.32002/06/2025 9:19 AM EDT Plan of Treatment DateTypeDepartmentCare Team (Latest Contact Info)Nstgkddtixr68/29/2025 2:15 PM ESTProcedure Visit [facility] [address] [place] [phone] Ulices Uribe, CHRIS [address] [place], [place] [id number] Health MaintenanceDue DateLast DoneCommentsCT Tgdwvgnqtngv82/25/1954FIT 1955FOBT1953 5274Nemaqtafnkqtf87/25/1954TaP/Tdap/Td Vaccines (1 - Tdap) 1960Hepatitis B Vaccines (2 of 3 - 19+ 3-dose series), 03/20/2003, 02/16/2003Pneumococcal Vaccine: 65+ Years (2 of 2 - PCV)03/09/2021 03/09/2020FIT-DNA/01/20216218Lnknpnepm02/14//4COVID-19 Vaccine ( - season)505/, 03/06/2021, 07/30/2020, Additional history existsInfluenza Vaccine (#1)/, 02/18/2023, 02/22/2022, Additional history tckovoPrncixhnmfa20/13//olorectal Cancer Llrcorfpn08/13/2033HIB VaccinesAged OutNo longer eligible based on patient's age to complete this topicHPV VaccinesAged OutNo longer eligible based on patient's age to complete this topicHepatitis A VaccinesAged OutNo longer eligible based on patient's age to complete this topicIPV VaccinesAged OutNo longer eligible based on patient's age to complete this topicMeningococcal B VaccineAged OutNo longer eligible based on patient's age to complete this topic Meningococcal VaccineAged OutNo longer eligible based on patient's age to complete this topicRotavirus VaccinesAged OutNo longer eligible based on patient's age to complete this topic Goals GoalPatient Goal TypeAssociated ProblemsRecent ProgressPatient-Stated?Author Help patient manage antidepressant medication Care PlanPatient on antidepressant monitoring planHelio, Oneyda Baseline PHQ-9 Care PlanBaseline PHQ-9Helio, Oneyda Procedures Procedure NamePriorityDate/TimeAssociated DiagnosisCommentsMM TOMOSYNTHESIS SCREENING BI12/29/2023 10:44 AM EDT from Last 3 Months or Most Recently Relevant to Health Maintenance Results * MM TOMOSYNTHESIS SCREENING BI (12/29/2023 10:44 AM EDT)Anatomical Region LateralityModalityOtherSpecimen (Source)Anatomical Location / Laterality Collection Method / VolumeCollection TimeReceived Time12/29/2023 10:44 AM EDT Narrative 12/29/2023 10:45 AM EDT The [facility] ?[address] ? [place], [place] [address] ? Mammography Report ? Signed ? Patient: YOANA IRENE A ?MR#: [id number] ?? : 1955 ?Acct:[id number] ?? Age/Sex: 68 / F ?ADM Date: 12/29/23 ?? Loc: MAMMO ? Attending Dr: Remigio Hoyos M.D. ? Ordering Physician: Remigio Hoyos M.D. ?Results: ? Date of Service: 12/29/23 ?Follow Up: ? Procedure(s): MM tomosynthesis screening BI ?? Accession Number(s): [id number] ? cc: Remigio Hoyos M.D. ? Patient Name: ? YOANA IRENE ? MR#: [id number] ? : 1955 ? Exam Date: 12/29/2023 ?? Ordering Doctor: DR Remigio Hoyos . ? RADIOLOGY REPORT ? PROCEDURE: ? MM TOMOSYNTHESIS SCREENING BI ? COMPARISON: ? MG MAMM SCREEN 3D ROSARIO CAD, 07/03/2021. ? INDICATIONS: ? Screening ? Calculator Name ? NCI Breast Cancer Risk Assessment Tool ?? 5 Year Breast Cancer Risk ? 1.50% ?? Lifetime Breast Cancer Risk ? 4.50% ?? Personal Breast Cancer ?No ?? Personal Ovarian Cancer ? No ?? Treatments ? Excision of the site ?? Family Cancers ? Mother with multiple myeloma cancer at age 78; Father with ?? pancreatic cancer at age 61. ? LOCATION: ? [facility] ? BREAST COMPOSITION: ? There are scattered areas of fibroglandular density. ? FINDINGS: ? DIAGNOSTIC CATEGORY 2--BENIGN FINDING. NO CHANGE FROM COMPARISON. ? Scattered benign-appearing calcifications are present. ? RIGHT BREAST: ??No significant suspicious finding. ? LEFT BREAST: ??No significant suspicious finding. ??Asymmetric small, stable. ? RECOMMENDATIONS: ? ROUTINE MAMMOGRAM AND CLINICAL EVALUATION IN 12 MONTHS. ? PLEASE NOTE: ??A NORMAL MAMMOGRAM DOES NOT EXCLUDE THE POSSIBILITY OF BREAST ?? CANCER. ??A CLINICALLY SUSPICIOUS PALPABLE LUMP SHOULD BE BIOPSIED. ? Dictated by: You Hope MD on 12/29/2023 at 10:41 ? Approved by: You Hope MD on 12/29/2023 at 10:44 ? Dictated By: ?You Hope M.D. ? Signed By: ?12/29/23 1045 ? DD/ 1044 ? TD/TT: ? Grounds Foreman: Procedure Note Radiology, Radiologist, - 12/29/[address] [address] Mammography Report Signed Patient: YOANA IRENE AMR#: [id number] : 4Acct:[id number] Age/Sex: 68 / FADM Date: 12/29/23 Loc: MAMMO Attending Dr: Remigio Hoyos M.D. Ordering Physician: Remigio Hoyos M.D.Results: Date of Service: 12/29/23Follow Up: Procedure(s): MM tomosynthesis screening BI Accession Number(s): [id number] cc: Remigio Hoyos M.D. Patient Name: YOANA IRENE MR#: [id number] : 1955 Exam Date: 12/29/2023 Ordering Doctor: DR Remigio Hoyos . RADIOLOGY REPORT PROCEDURE: MM TOMOSYNTHESIS SCREENING BI COMPARISON: MG MAMM SCREEN 3D ROSARIO CAD, 07/03/2021. INDICATIONS: Screening Calculator Name NCI Breast Cancer Risk Assessment Tool 5 Year Breast Cancer Risk 1.50% Lifetime Breast Cancer Risk 4.50% Personal Breast Cancer No Personal Ovarian Cancer No Treatments Excision of the site Family Cancers Mother with multiple myeloma cancer at age 78; Fatherwith pancreatic cancer at age 61. LOCATION: [facility] BREAST COMPOSITION: There are scattered areas of fibroglandulardensity. FINDINGS: DIAGNOSTIC CATEGORY 2--BENIGN FINDING. NO CHANGE FROM COMPARISON. Scattered benign-appearing calcifications are present. RIGHT BREAST: No significant suspicious finding. LEFT BREAST: No significant suspicious finding. Asymmetric small,stable. RECOMMENDATIONS: ROUTINE MAMMOGRAM AND CLINICAL EVALUATION IN 12 MONTHS. PLEASE NOTE: A NORMAL MAMMOGRAM DOES NOT EXCLUDE THE POSSIBILITY OFBREAST CANCER. A CLINICALLY SUSPICIOUS PALPABLE LUMP SHOULD BE BIOPSIED. Dictated by: You Hope MD on 12/29/2023 at 10:41 Approved by: You Hope MD on 12/29/2023 at 10:44 Dictated By: You Hope M.D. Signed By:12/29/23 1045 DD/ 1044 TD/TT: Grounds Foreman: Authorizing ProviderResult TypeResult StatusMarc Soha MDCLINISYNC IMAGING Final Result from Last 3 Months or Most Recently Relevant to Health Maintenance Additional Health Concerns Active ProblemsNoted DateDiagnosed DatePatient on antidepressant monitoring plan 5Baseline PHQ-9009/20/2024 Insurance Care Teams Team MemberRelationshipSpecialtyStart DateEnd Date Remigio Hoyos MD [address] [place] [phone] PCP - GeneralFamily Medicine07/19/23 Remigio Hoyos MD [address] [place] [address] PCP - ACO Reach06/23/24 Vasyl Cobos DO [address] [place] [address] Referring RpwltyrjqDaubgesgz92/1/24
--- OUTSIDE RECORDS SUMMARY | 2025-03-14 11:34 | XMS_ITS | Encounter Summary ---
Author Organization [facility] Address [address] [place] [address] Care Team Providers Care Focusing Machine Operator Name Role Phone Remigio Hoyos MD Primary Care Provider [phone] Vasyl Cobos DO Unavailable [phone] Remigio Hoyos MD Unavailable Encounter Details DateTypeDepartmentCare Team (Latest Contact Info)Fpnahtwplfo37/14/2024Clinisync Result Encounter [facility] External Department Unsolicited Remigio Hoyos MD [address] [place] [address] Social History Tobacco UseTypesPacks/DayYears UsedDateSmoking Tobacco: NeverPassive Smoke Exposure: NeverSmokeless Tobacco: NeverAlcohol UseStandard Drinks/WeekComments Not Currently0 (1 standard drink = 0.6 oz pure alcohol)Social Connection and Isolation PanelAnswerDate RecordedIn a typical week, how many times do you talk on the phone with family, friends, or neighbors?Twice a week09/08/2023How often do you get together with friends or relatives?Twice a week09/08/2023How often do you attend zoroastrianism or presybeterian services?More than 4 times per year09/08/2023o you belong to any clubs or organizations such as zoroastrianism groups, unions, fraternal or athletic groups, or school groups?No09/08/2023How often do you attend meetings of the clubs or organizations you belong to?Never09/08/2023re you , , , , never , or living with a partner?Fvftmya1209/08/2023UDIT-CAnswerDate RecordedQ1: How often do you have a drink containing alcohol?Never09/08/2023Q2: How many drinks containing alcohol do you have on a typical day when you are drinking?Patient does not drink 09/08/2023Q3: How often do you have six or more drinks on one occasion?Never 09/08/2023Overall Financial Resource Strain (CARDIA)AnswerDate RecordedHow hard is it for you to pay for the very basics like food, housing, medical care, and heating?Not hard at all09/08/2023HQ-2AnswerDate RecordedPatient Health Questionnaire-2 Tkjxh952Finacadia healthcare [place] of Occupational Health - Occupational Stress QuestionnaireAnswerDate RecordedDo you feel stress - tense, restless, nervous, or anxious, or unable to sleep at night because yourmind is troubled all the time - these days?Rather much09/08/2023Exercise Vital Sign AnswerDate RecordedOn average, how many days per week do you engage in moderate to strenuous exercise (like a brisk walk)?2 days09/08/2023On average, how many minutes do you engage in exercise at this level?20 min09/08/2023Hunger Vital SignAnswerDate RecordedWithin the past 12 months, you worried that your food would run out before you got the money to buymore.Never true09/08/2023Within the past 12 months, the food you bought just didn't last and you didn't have money to get more.Never true09/08/2023RAPARE - TransportationAnswerDate RecordedIn the past 12 months, has lack of transportation kept you from medical appointments or from getting medications?No09/08/2023In the past 12 months, has lack of transportation kept you from meetings, work, or from getting things needed for daily living?No09/08/2023Housing Stability Vital SignAnswerDate RecordedIn the last 12 months, was there a time when you were not able to pay the mortgage or rent on time?No09/08/2023Number of Places Lived in the Last Year Not on file09/08/2023In the last 12 months, was there a time when you did not have a steady place to sleep or slept in [facility] (including now)?No09/08/2023 EducationAnswerDate RecordedWhat is the highest level of school you have completed or the highest degree you have received?Associate degree: occupational, technical, or vocational ioycjfl53/17/2023CommentsUnknown Sex and Gender InformationValueDate RecordedSex Assigned at BirthNot on file Legal ImoYfjxgn53/15/2023 7:24 PM EDTGender IdentityNot on fileSexual OrientationNot on filedocumented as of this encounter Plan of Treatment DateTypeDepartmentCare Team (Latest Contact Info)Mwpzdfpvmqe59/29/2025 2:15 PM ESTProcedure Visit [facility] [address] [place] [phone] Ulices Uribe DPM [address] [place], [place] [phone] documented as of this encounter Procedures Procedure NamePriorityDate/TimeAssociated DiagnosisCommentsMM TOMOSYNTHESIS SCREENING BI12/29/2023 10:44 AM EDT documented in this encounter Results * MM TOMOSYNTHESIS SCREENING BI (12/29/2023 10:44 AM EDT)Anatomical Region LateralityModalityOtherSpecimen (Source)Anatomical Location / Laterality Collection Method / VolumeCollection TimeReceived Time12/29/2023 10:44 AM EDT Narrative 12/29/2023 10:45 AM EDT [facility] ?[address] ? [place] [address] ? Mammography Report ? Signed ? Patient: KOBE,YOANA Richardson ?MR#: [id number] ?? : 1955 ?Acct:[id number] ?? Age/Sex: 68 / F ?ADM Date: 08/14/24 ?? Loc: MAMMO ? Attending Dr: Remigio Hoyos M.D. ? Ordering Physician: Remigio Hoyos M.D. ?Results: ? Date of Service: 12/29/23 ?Follow Up: ? Procedure(s): MM tomosynthesis screening BI ?? Accession Number(s): [id number] ? cc: Remigio Hoyos M.D. ? Patient Name: ? YOANA IRENE ? MR#: [id number] ? : 1955 ? Exam Date: 12/29/2023 [...] at age 59. ? LOCATION: ? [facility] ? BREAST COMPOSITION: ? There [...] By: ?You Hope M.D. ? Signed By: ?12/29/235 ? DD/ 1044 ? TD/TT: ? Community Board Member: Procedure Note Radiology, Radiologist, MD - 12/29/2023 [place] [address] Mammography Report Signed Patient: YOANA IRENE AMR#: [id number] : 4Acct:[id number] Age/Sex: 68 / FADM Date: 12/29/23 Loc: MAMMO Attending Dr: Remigio Hoyos M.D. Ordering Physician: Remigio Hoyos M.D.Results: Date of Service: 12/29/23Follow Up: Procedure(s): MM tomosynthesis screening BI Accession Number(s): [id number] cc: Remigio Hoyos M.D. Patient Name: YOANA IRENE MR#: [id number] : 1955 Exam Date: 12/29/2023 Ordering Doctor: DR Remigio Orlelana RADIOLOGY REPORT PROCEDURE: MM TOMOSYNTHESIS SCREENING BI [...] pancreatic cancer at age 59. LOCATION: [facility] BREAST COMPOSITION: There are scattered [...] M.D. Signed By:12/29/23 1045 DD/ 1044 TD/TT: Community Board Member: Authorizing ProviderResult TypeResult StatusMarc Soha [facility] Final Result documented in this encounter Visit Diagnoses Not on filedocumented in this encounter Care Teams Team MemberRelationshipSpecialtyStart DateEnd Date Remigio Hoyos MD [address] [place] [address] PCP - GeneralFamily Medicine07/19/23 Remigio Hoyos MD [address] [place] [address] PCP - ACO Reach06/23/24 Vasyl Cobos DO [address] [place] [address] Referring PbpuvcyjkZvxaagsxb59/1/24documented as of this encounter
--- OUTSIDE RECORDS SUMMARY | 2025-03-14 11:34 | XMS_ITS | Encounter Summary ---
Author Organization [facility] Address [address] [place] [address] Care Team Providers Care Event Specialist Product Demonstrator Name Role Phone Remigio Hoyos MD Primary Care Provider [phone] Rei Franz DO Unavailable [phone] Remigio Hoyos MD Unavailable Encounter Details DateTypeDepartmentCare Team (Latest Contact Info)Mfbhjhtvjqp42/30/2024Clinisync Result Encounter [facility] External Department Unsolicited Rei Franz DO [address] [place], [place] [address] Social History Tobacco UseTypesPacks/DayYears UsedDateSmoking Tobacco: NeverPassive Smoke Exposure: NeverSmokeless Tobacco: NeverAlcohol UseStandard Drinks/WeekComments Not Currently0 (1 standard drink = 0.6 oz pure alcohol)Social Connection and Isolation PanelAnswerDate RecordedIn a typical week, how many times do you talk on the phone with family, friends, or neighbors?Twice a week09/08/2023How often do you get together with friends or relatives?Twice a week09/08/2023How often do you attend roman catholic or yazidi services?More than 4 times per year4Do you belong to any clubs or organizations such as roman catholic groups, unions, fraternal or athletic groups, or school groups?No09/08/2023How often do you attend meetings of the clubs or organizations you belong to?Never4Are you , , , , never , or living with a partner?Eyvdbed8509/08/2023UDIT-CAnswerDate RecordedQ1: How often do you have a [...] heating?Not hard at all09/08/2023HQ-2AnswerDate RecordedPatient Health Questionnaire-2 Achmt336Finbeaver valley hospital [place] of Occupational Health - Occupational Stress QuestionnaireAnswerDate [...] steady place to sleep or slept in [facility] (including now)?No09/08/2023 EducationAnswerDate RecordedWhat is the highest level of school you have completed or the highest degree you have received?Associate degree: occupational, technical, or vocational ucrqmqt62/17/2023CommentsUnknown Sex and Gender InformationValueDate RecordedSex Assigned at BirthNot on file Legal ChuItnfxk44/15/2023 7:24 PM EDTGender IdentityNot on fileSexual OrientationNot on filedocumented as of this encounter Plan of Treatment DateTypeDepartmentCare Team (Latest Contact Info)Rdqmqossfni70/29/2025 2:15 PM ESTProcedure Visit [facility] [address] [facility] [place] [address] Ulices Uribe, DPTrinity [address] [place] [address] documented as of this encounter Procedures Procedure NamePriorityDate/TimeAssociated DiagnosisCommentsCT CHEST W AND WO IV XJGPYOLD12/30/2024 12:53 PM EDT documented in this encounter Results * CT chest w and wo IV contrast (09/14/2023 12:53 PM EDT)Anatomical Region LateralityModalityBody, ChestComputed TomographySpecimen (Source)Anatomical Location / LateralityCollection Method / VolumeCollection TimeReceived Time 09/14/2023 12:53 PM EDT Narrative 09/14/2023 12:56 PM EDT [facility] ?[address] ? [place] [address] ? CT Scan Report ? Signed ? Patient: YOANA IRENE ?MR#: [id number] ?? : 1955 ?Acct:[id number] ?? Age/Sex: 67 / F ?ADM Date: 09/14/23 ?? Loc: CT ? Attending Dr: Rei Franz D.O. ? Ordering Physician: Rei Franz D.O. ?? Date of Service: 09/14/23 ?? Procedure(s): CT chest wo/w con ?? Accession Number(s): [id number] ? cc: Remigio Hoyos M.D. ? [facility] ? [address] ? [place] [address] ? Patient Name: ?? YOANA Richardson ELDER ? MRN: [facility]:[id number] ? date: 1955 ?Sex: F ?? Assigned Patient Location: CT ?? Current Patient Location: CT ?? Accession/Order Number: [id number] ?? Exam Date: 09/14/2023 ??09:20 ?Report Date: 09/14/2023 ??12:53 ? At the request of: ?? REI ??CHANDRIKA ? Procedure: ??CT chest wo/w con ? EXAMINATION: CT chest wo/w con, CT abdomen pelvis wo/w con ? HISTORY: Rapidly Progressive Dementia, Generalized Weakness ? COMPARISON: 12/30/2022 ? TECHNIQUE: Axial, Coronal, and Sagittal CT images were obtained without and ?? with IV contrast. Dose reduction techniques were achieved by using automated ?? exposure control and/or adjustment of mA and/or kV according to patient size ?? and/or use of iterative reconstruction technique. ? FINDINGS: ?? LUNGS: No visible pulmonary disease. ?? PLEURA: No mass or effusion. ?? VASCULATURE: No visible pulmonary arterial thrombus or attenuation. ?? OSMANI: No mass or adenopathy. ?? MEDIASTINUM: No mass or adenopathy. ?? CARDIAC: No enlargement, pericardial thickening, or pericardial effusion. ?? CHEST WALL: No mass or axillary adenopathy. ?? LIVER: No enlargement, atrophy, abnormal density, or significant focal lesion. ?? BILIARY: No dilatation or calcification. ?? PANCREAS: No lesion, fluid collection, ductal dilatation, or atrophy. ?? SPLEEN: No enlargement or focal lesion. ?? ADRENALS: No mass or enlargement. ?? KIDNEYS: Normal right. 2 left renal nonenhancing cysts one measuring 1 cm a ?? second measuring 8.9 cm deforming the left lateral kidney ?? BOWEL/MESENTERY: No visible mass, obstruction, or bowel wall thickening. ?? AORTA/VASCULAR: No aortic aneurysm. Mild calcific atherosclerosis ?? RETROPERITONEUM: No mass or adenopathy. ?? ABDOMINAL WALL: No mass or hernia. ?? BONES: No bony lesion or fracture. ?? OTHER: Negative. ? CT/CT chest wo/w con ?? IMPRESSION: ? No acute abnormality of the chest, abdomen or pelvis ? Electronically authenticated by: KRYS ??OMAR ?? Date: 09/14/2023 ??12:53 ? Dictated By: ?Krys Nelson M.D. ? Signed By: ?09/14/23 1256 ? DD/ 1253 ? TD/TT: ? Pole Setter: Procedure Note Radiology, Radiologist, - 09/15/2023 [place] [address] CT Scan Report Signed Patient: YOANA IRENE AMR#: [id number] : 1955cct:[id number] Age/Sex: 67 / FADM Date: 09/14/23 Loc: CT Attending Dr: Rei Franz D.O. Ordering Physician: Rei Franz D.O. Date of Service: 09/14/23 Procedure(s): CT chest wo/w con Accession Number(s): [id number] cc: Remigio Hoyos M.D. The [place] [id number] Patient Name: YOANA IRENE MRN: [id number] date: 1955 Sex: F Assigned Patient Location: CT Current Patient Location: CT Accession/Order Number: [id number] Exam Date: 09/14/2023 09:20 Report Date: 09/14/2023 12:53 At the request of: REI FRANZ Procedure: CT chest wo/w con EXAMINATION: CT chest wo/w con, CT abdomen pelvis wo/w con HISTORY: Rapidly Progressive Dementia, Generalized Weakness COMPARISON: 12/30/2022 TECHNIQUE: Axial, Coronal, and Sagittal CT images were obtained withoutand with IV contrast. Dose reduction techniques were achieved by usingautomated exposure control and/or adjustment of mA and/or kV according to patientsize and/or use of iterative reconstruction technique. FINDINGS: LUNGS: No visible pulmonary disease. PLEURA: No mass or effusion. VASCULATURE: No visible pulmonary arterial thrombus or attenuation. OSMANI: No mass or adenopathy. MEDIASTINUM: No mass or adenopathy. CARDIAC: No enlargement, pericardial thickening, or pericardial effusion. CHEST WALL: No mass or axillary adenopathy. LIVER: No enlargement, atrophy, abnormal density, or significant focallesion. BILIARY: No dilatation or calcification. PANCREAS: No lesion, fluid collection, ductal dilatation, or atrophy. SPLEEN: No enlargement or focal lesion. ADRENALS: No mass or enlargement. KIDNEYS: Normal right. 2 left renal nonenhancing cysts one measuring 1 chair trimmer second measuring 8.9 cm deforming the left lateral kidney BOWEL/MESENTERY: No visible mass, obstruction, or bowel wall thickening. AORTA/VASCULAR: No aortic aneurysm. Mild calcific atherosclerosis RETROPERITONEUM: No mass or adenopathy. ABDOMINAL WALL: No mass or hernia. BONES: No bony lesion or fracture. OTHER: Negative. CT/CT chest wo/w con IMPRESSION: No acute abnormality of the chest, abdomen or pelvis Electronically authenticated by: KRYS NELSON Date: 09/14/2023 12:53 Dictated By: Krys Nelson M.D. Signed By:09/14/23 1256 DD/ 1253 TD/TT: Pole Setter: Authorizing ProviderResult TypeResult StatusChristopher Chandrika [facility] CT PROCEDURESFinal Result documented in this encounter Visit Diagnoses Not on filedocumented in this encounter Care Teams Team MemberRelationshipSpecialtyStart DateEnd Date Remigio Hoyos MD [address] [place] [phone] PCP - GeneralFamily Medicine07/19/23 Remigio Hoyos MD [address] [place] [address] PCP - ACO Reach06/23/24 Rei Franz DO [address] [place] [address] Referring MextfvdulLfdfzejeu87/1/24documented as of this encounter
--- OUTSIDE RECORDS SUMMARY | 2025-03-14 11:34 | XMS_ITS | Encounter Summary ---
Author Organization [facility] Address [address] [place] [address] Care Team Providers Care Accounting Bookkeeper Name Role Phone Remigio Hoyos MD Primary Care Provider [phone] Rei Cobos DO Unavailable [phone] Remigio Hoyos MD Unavailable Encounter Details DateTypeDepartmentCare Team (Latest Contact Info)Kuitvptivss23/30/2024Clinisync Result Encounter [facility] External Department Unsolicited Rei Cobos DO [address] [place], [place] [id number] Social History Tobacco UseTypesPacks/DayYears UsedDateSmoking Tobacco: NeverPassive [...] week09/08/2023How often do you attend zoroastrianism or caodaism services?More than 4 times per year4Do you belong to any clubs or organizations such as zoroastrianism groups, unions, fraternal or athletic groups, or school groups?No09/08/2023How often do you attend meetings of the clubs or organizations you belong to?Never4Are you , , , , never , or living with a partner?Uvxvmvs5209/08/2023UDIT-CAnswerDate RecordedQ1: How often do you have a [...] heating?Not hard at all09/08/2023HQ-2AnswerDate RecordedPatient Health Questionnaire-2 Fgbwf283Finbeaver valley hospital [place] of Occupational Health - Occupational Stress QuestionnaireAnswerDate [...] steady place to sleep or slept in [facility] (including now)?No09/08/2023 EducationAnswerDate RecordedWhat is the highest level of school you have completed or the highest degree you have received?Associate degree: occupational, technical, or vocational oikxxyb05/17/2023CommentsUnknown Sex and Gender InformationValueDate RecordedSex Assigned at BirthNot on file Legal TqxTjhcpu23/15/2023 7:24 PM EDTGender IdentityNot on fileSexual OrientationNot on filedocumented as of this encounter Plan of Treatment DateTypeDepartmentCare Team (Latest Contact Info)Zfykcualpkp32/29/2025 2:15 PM ESTProcedure Visit [facility] [address] [place] [phone] Ulices Uribe, DPTrinity [address] [place] [address] documented as of this encounter Procedures Procedure NamePriorityDate/TimeAssociated DiagnosisCommentsCT ABDOMEN PELVIS WO/W CON09/14/2023 12:53 PM EDT documented in this encounter Results * CT ABDOMEN PELVIS WO/W CON (09/14/2023 12:53 PM EDT)Anatomical Region LateralityModalityOtherSpecimen (Source)Anatomical Location / Laterality Collection Method / VolumeCollection TimeReceived Time09/14/2023 12:53 PM EDT Narrative 09/14/2023 12:56 PM EDT [facility] ?[address] ? [place] [address] ? CT Scan Report ? Signed ? Patient: YOANA IRENE ?MR#: [id number] ?? : 1955 ?Acct:[id number] ?? Age/Sex: 67 / F ?ADM Date: 09/14/23 ?? Loc: CT ? Attending Dr: Rei Cobos D.O. ? Ordering Physician: Rei Cobos D.O. ?? Date of Service: 09/14/23 ?? Procedure(s): CT abdomen pelvis wo/w con ?? Accession Number(s): [id number] ? cc: Remigio Hoyos M.D. ? [facility] ? [address] ? [place] [address] ? Patient Name: ?? YOANA Richardson ELDER ? MRN: [facility]:[id number] ? date: 1955 ?Sex: F ?? Assigned Patient Location: CT ?? Current Patient Location: CT ?? Accession/Order Number: [id number] ?? Exam Date: 09/14/2023 ??09:20 ?Report Date: 09/14/2023 ??12:53 ? At the request of: ?? REI ??CHANDRIKA ? Procedure: ??CT abdomen pelvis wo/w con ? EXAMINATION: CT chest wo/w [...] or fracture. ?? OTHER: Negative. ? CT/CT abdomen pelvis wo/w con ?? IMPRESSION: ? No acute abnormality of the chest, abdomen or pelvis ? Electronically authenticated by: KRYS ??OMAR ?? Date: 09/14/2023 ??12:53 ? Dictated By: ?Krys Nelson M.D. ? Signed By: ?09/14/23 1256 ? DD/ 1253 ? TD/TT: ? Management Advisor: Procedure Note Radiology, Radiologist, - 09/14/2023 [place] [address] CT Scan Report Signed Patient: YOANA IRENE AMR#: [id number] : 1955cct:[id number] Age/Sex: 67 / FADM Date: 09/14/23 Loc: CT Attending Dr: Rei Cobos D.O. Ordering Physician: Rei Cobos D.O. Date of Service: 09/14/23 Procedure(s): CT abdomen pelvis wo/w con Accession Number(s): [id number] cc: Remigio Hoyos M.D. The [place] [address] Patient Name: YOANA IRENE MRN: [id number] date: 1955 Sex: F Assigned Patient Location: CT Current Patient Location: CT Accession/Order Number: [id number] Exam Date: 09/14/2023 09:20 Report Date: 09/14/2023 12:53 At the request of: REI COBOS Procedure: CT abdomen pelvis wo/w con EXAMINATION: CT chest wo/w con, [...] left renal nonenhancing cysts one measuring 1 park naturalist second measuring 8.9 cm deforming the left lateral kidney BOWEL/MESENTERY: No visible mass, obstruction, or bowel wall thickening. AORTA/VASCULAR: No aortic aneurysm. Mild calcific atherosclerosis RETROPERITONEUM: No mass or adenopathy. ABDOMINAL WALL: No mass or hernia. BONES: No bony lesion or fracture. OTHER: Negative. CT/CT abdomen pelvis wo/w con IMPRESSION: No acute abnormality of the chest, abdomen or pelvis Electronically authenticated by: KRYS NELSON Date: 09/14/2023 12:53 Dictated By: Krys Nelson M.D. Signed By:09/14/23 1256 DD/ 1253 TD/TT: Management Advisor: Authorizing ProviderResult TypeResult StatusChristopher Chandrika DOCLINISYNC IMAGINGFinal Result documented in this encounter Visit Diagnoses Not on filedocumented in this encounter Care Teams Team MemberRelationshipSpecialtyStart DateEnd Date Remgiio Hoyos MD [address] [place] [phone] PCP - GeneralFamily Medicine07/19/23 Remigio Hoyos MD [address] [place] [address] PCP - ACO Reach06/23/24 Rei Cobos DO [address] [place] [address] Referring CkjcsxkbiXmibzacno15/1/24documented as of this encounter
--- OUTSIDE RECORDS SUMMARY | 2025-03-14 11:34 | XMS_ITS | Clinical Summary ---
Author Organization [facility] Address [address] [facility], [address] [place] [address] Care Team Providers Care Academic Records Specialist Name Role Phone Unavailable Primary Care Provider Unavailabl e Social History Tobacco UseTypesPacks/DayYears UsedDateSmoking Tobacco: Never Assessed CommentsUnknownSex and Gender InformationValueDate RecordedSex Assigned at Not on fileLegal UisAwmbcv51/10/2013 9:57 AM ESTGender IdentityNot on fileSexual OrientationNot on file Plan of Treatment Not on file
--- OUTSIDE RECORDS SUMMARY | 2025-03-14 11:34 | XMS_ITS | Clinical Summary ---
Author Organization [facility] Address [address] [place] [address] Care Team Providers Care Vice President Of Brand Management Name Role Phone Unavailable Primary Care Provider Unavailabl e Allergies No known active allergies Medications MedicationSigDispense QuantityRefillsLast FilledStart DateEnd DateStatus haloperidol (HALDOL) 1 mg tablet Take 1 mg by mouth two times a day. May take 0.5mg at 6pm. PRN: 1mg every 4.5 hoursActive hydrOXYzine HCl (ATARAX) 25 mg tablet Take 25 mg by mouth two times a day.09/14/2023ctive mirtazapine (REMERON) 15 mg tablet Take 15 mg by mouth daily at bedtime.Active SENEXON-S 8.6-50 mg per tablet Take 1 tablet by mouth three times a day.Active donepezil (ARICEPT) 5 mg tablet TAKE 1 TABLET BY MOUTH DAILY AFTER BREAKFAST. 90 tablet 5Active Active Problems ProblemNoted DateDiagnosed EncdStmfjyjoox85/04/2024Lewy body dementia with behavioral rmqubgtauqg07/04/2024BD (REM behavioral disorder)04/19/2024Secondary jaydwihbeeye92/04/2024Visual ddwwvakaumcotu09/04/2024 Social History Tobacco UseTypesPacks/DayYears UsedDateSmoking Tobacco: Never AssessedArea Deprivation IndexAnswerDate RecordedNational Score (1-100), lower number is lower thar205404/19/2024State Score (1-10), lower number is lower vwrm77106/20/2023 Data from: https://www.neighborhoodatlas.medicine.[facility].edu/. Last address used for [address]/19/2024CommentsUnknownSex and Gender InformationValueDate RecordedSex Assigned at BirthNot on fileLegal SexFemale 07/02/2023 11:09 AM ESTGender IdentityNot on fileSexual OrientationNot on file Last Filed Vital Signs Vital SignReadingTime TakenCommentsBlood Zpkxucgp204/8304/19/2024 12:37 PM EST Eablx345104/19/2024 12:37 PM ESTTemperature--Respiratory Rate--Oxygen Saturation-- Inhaled Oxygen Concentration--Xvoyph72.8 kg (162 lb 11.2 oz)04/19/2024 12:37 PM ESTHeight--Body Mass Index-- Plan of Treatment Health MaintenanceDue DateLast DoneCommentsHepatitis C Mafoxzudz96/25/1972 DTaP,Tdap,Td Vaccine (1 - Tdap)1972Mammogram Zrdtkspny99/25/1994CT Olpbqraytphv31/25/4555Pglufdwzpmk33/25/1999Diabetes Efgvigrfp40/25/1999Fecal Occult Blood1998Lipid Qgpabsxjk51/25/8767Bvegigmuwojtv17/25/1999Shingrix Vaccine (1 of 2)11/09/2003Medicare Annual Wellness Visit10/15/2018Bone Density Kbdwmhijh47/25/2019Pneumococcal Vaccine: 50+ (2 of 2 - PCV) Cologuard (FIT-DNA)/olorectal Cancer Grzcydlae02/09/2024 Advance Directive Quyjivzxez54/01/2025Covid-19 Vaccine ( season) /05/2021, 10/05/2021, 03/06/2021, Additional history existsInfluenza Vaccine (#1)/09/2022, 02/22/2022, 02/14/2021, Additional history existsRSV Vaccine (1 - 1-dose 75+ series)2028 Insurance
--- OUTSIDE RECORDS SUMMARY | 2025-03-14 11:34 | XMS_ITS | Patient Health Record ---
Author Organization [facility] [place] Address [address] [place] [address] Care Team Providers Care Parachute Cushion Installer Name Role Phone Remigio Hoyos MD Primary Care Provider Unavailab le Reason For Referral No Information Problems Problem Type SNOMED Code ICD Code Onset Dates Problem Status W/U Status Risk Notes Problem Anxiety (05423907) Anxiety (F41.9) ActiveconfirmedProblemPsychological assessment (784051271)Psychological assessment (Z00.8)Activeconfirmed Plan Of Treatment No Information Insurance Providers Payer Name Payer Address Payer Phone Subscriber Number Group Number Insured Name Patient Relationship to Insured Coverage Start Date Coverage End Date [place] [address] [place] [address] [id number] Esther Irene - patient is the insured[address] [place], [place] [id number], MarciaSelf - patient is the insured
--- OUTSIDE RECORDS SUMMARY | 2025-03-14 11:34 | XMS_ITS | Clinical Summary ---
Author Organization [employer] Address [id number] [address] [place] [address] Care Team Providers Care Fire Watchman Name Role Phone Remigio Hoyos MD Primary Care Provider [phone] Allergies No known active allergies Medications MedicationSigDispense QuantityRefillsLast FilledStart DateEnd DateStatus calcium carbonate/vitamin D3 (CALCIUM 600 + D,3, ORAL) Take by mouth in the morning and at bedtime.Active nystatin (MYCOSTATIN) powder Apply 1 Application topically in the morning and 1 Application at noon and 1 Application in the evening and 1 Application before bedtime.Active ALPRAZolam (XANAX) 0.25 mg tablet Take 1 tablet (0.25 mg total) by mouth nightly as needed for anxiety.Active Active Problems ProblemNoted DateDiagnosed DateParoxysmal supraventricular xjjkmtclivf74/04/2022 Abnormal EKG008/18/2021 Immunizations ImmunizationAdministration DatesNext DueCOVID-19, mRNA, LNP-S, PF, 30mcg/0.3mL Dose07/30/2020,07/09/2020 Family History Medical HistoryRelationNameCommentsCancerFatherHypertensionFatherCancerMother HyperlipidemiaMotherHeart diseaseSisterRelationNameStatusCommentsFatherDeceased MotherDeceasedSister Social History Tobacco UseTypesPacks/DayYears UsedDateSmoking Tobacco: NeverSmokeless Tobacco: NeverAlcohol UseStandard Drinks/WeekCommentsYes0 (1 standard drink = 0.6 oz pure alcohol)ChildcareAnswerDate HpqnghmaSkpmzmmsqIigbpdb95/22/2021mploymentAnswer Date SmgpoupcLcankssqfuAjgnqci96/22/2021Hunger ScreeningAnswerDate Recorded Within the past 12 months we worried whether our food would run out before we got money to buy more.Never True11/23/2022Within the past 12 months the food we bought just didn't last and we didn't have money to get more.Never True 3Purpose - LifeAnswerDate RecordedPurpose and direction in lifeUnknown 07/08/2020CommentsUnknownSex and Gender InformationValueDate RecordedSex Assigned at BirthNot on fileLegal CkdXkrwbl06/06/2015 11:22 AM EDTGender IdentityNot on fileSexual OrientationNot on file Last Filed Vital Signs Vital SignReadingTime TakenCommentsBlood Qcpomxnc868/8811/23/2022 8:50 AM EDT Oiddq097411/23/2022 8:50 AM EDTTemperature--Respiratory Rate--Oxygen Usbjgzwkny85% 11/23/2022 8:50 AM EDTInhaled Oxygen Concentration--Dqclbp40 kg (176 lb 6.4 oz) 11/23/2022 8:50 AM FDQLmhcko750.6 cm (5' 6 )11/23/2022 8:50 AM EDTBody Mass Index28.4707 8:50 AM EDT Plan of Treatment Health MaintenanceDue DateLast DoneCommentsDepression Ytyslrizz36/25/1966Tobacco Rzbrchicu74/25/1966DTaP,Tdap and Td Vaccines (1 - Tdap)1972Zoster (Shingles) Vaccine (1 of 2)11/09/2003Fall Risk Tikeetlgj03/25/2019Adult BMI Cjjieqjmr83/OVID-19 Vaccine ( - season)2025 03/17/2022, 10/05/2021, 03/06/2021, Additional history existsInfluenza Vaccine /09/2022, 02/22/2022, 02/14/2021, Additional history exists Medical Devices Not on file Insurance Care Teams Team MemberRelationshipSpecialtyStart DateEnd Date Remigio Hoyos MD [facility] - [facility]11/20/21
--- OUTSIDE RECORDS SUMMARY | 2025-03-14 11:51 | XMS_ITS | CCD ---
Author Organization [facility] Care Team Providers Care Nuclear Supervising Operator Name Role Phone CALVIN, DR REMIGIO [...] Consulting Unavailable NADERER, REMIGIO Primary Care Physician [phone] Amor HOLLY Attending Unavailable NADERER, REMIGIO Referring Unavailable NILL, Amor Pollock Attending Unavailable NADERER, REMIGIO Referring Unavailable NILL, Amor Pollock Attending Unavailable Naderer Remigio ROGERS Primary Care Unavail vinay Gilbert MD, Anuj Orta Attending DO Robert Oliver Emergency Provider MD Remigio Simpson Primary Care Provider MD Sridhar Hoffman Admit Provider [phone] MD Sridhar Hoffman Attending Provider Remigio Simpson MD Primary Care Provider MD Remigio Simpson Primary Care Provider DO Good Garcia Emergency Provider [phone] MD Yoly Hoffmanyemi Admit Provider [phone] MD Sridhar Hoffman Attending Provider [phone] Remigio Simpson MD Primary Care Provider Rei Cobos DO Unavailable Unavailable Primary Care Provider Unavailabl e SERA KILLIAN Attending Unavailable Remigio Simpson MD Unavailable Remigio Simpson MD Primary Care Provider Lionel Still MD Attending Provider Remigio Simpson MD Attending Provider Remigio Simpson Attending Unavailable Remigio Simpson Admitting Unavailable Rei Cobos Admitting Unavailab le Remigio Simpson Primary Care Unavailable Rei Cobos Attending Unavailab le Remigio Simpson Primary Care Unavailable Lionel Still Attending Unavailab Lionel Saini Admitting Unavailab le Remigio Simpson Primary Care Unavailable Lionel Still Attending Unavailab Sridhar Mcneill Admitting Unavailable Rei Cobos DO Unavailable [phone] Rei Cobos DO Unavailable RICHARD CLAYTON Attending Unavailable JADA AGUILLON Attending Unavailable ZAMZAM, BRIANDA Referring Unavailable JADA AGUILLON Attending Unavailable CARYN GASPAR Referring Unavailable IRMA GRECO Admitting Unavailable IRMA GRECO Attending Unavailable SELF, SELF Referring Unavailable Remigio Simpson MD Primary Care Provider [phone] Remigio Simpson MD Attending Provider [phone] Remigio Simpson MD Primary Care Provider Remigio Simpson MD Unavailable REI COBOS Attending Unavailable HERSON URIBE Attending Unavailable REMIGIO SIMPSON Attending Unavailable REMIGIO SIMPSON Attending Unavailable HERSON URIBE Attending Unavailable HERSON URIBE Attending Unavailable ALEXANDRIA RAY Attending Unavailable REMIGIO SIMPSON Referring Unavailable MILLER, DENEEN Attending Unavailable NADERER, REMIGIO Referring Unavailable CHANDRIKA, REI Attending Unavailable ALEXANDRIA RAY Attending Unavailable NADERER, REMIGIO Referring Unavailable TATTERSALL, BETI Attending Unavailable NADERER, REMIGIO Referring Unavailable MILLER, DENEEN Attending Unavailable NADERER, REMIGIO Referring Unavailable ALEXANDRIA RAY Attending Unavailable NADERER, REMIGIO Referring Unavailable TATTERSALL, BETI Attending Unavailable NADERER, REMIGIO Referring Unavailable TATTERSALL, BETI Attending Unavailable NADERER, REMIGIO Referring Unavailable MILLER, DENEEN Attending Unavailable NADERER, REMIGIO Referring Unavailable TATTERSALL, BETI Attending Unavailable NADERER, REMIGIO Referring Unavailable MILLER, DENEEN Attending Unavailable NADERER, REMIGIO Referring Unavailable MILLER, DENEEN Attending Unavailable NADERER, REMIGIO Referring Unavailable HERSON URIBE Attending Unavailable MILLER, DENEEN Attending Unavailable NADERER, REMIGIO Referring Unavailable CHANDRIKAREI Attending Unavailable Allergies Allergy ClassificationReported Allergen(s)Allergy TypeDate of OnsetReaction(s) Facility (20 sources)Alprazolam; Translations: [ALPRAZOLAM]Propensity to adverse igiiddamm79-94-8337Igstbmriikocjn, UnknownNOM[facility] Medications Current Medications MedicationDrug Class(es)DatesSig (Normalized)Sig (Original)atorvastatin 10 mg oral tablet (15 sources)HMG-CoA Reductase InhibitorStart: 08-07-2024 End: 72-72-5472rhds 1 tablet by mouth once dailyatorvastatin (Lipitor) 10 MG tablet Indications: Dyslipidemia Take 1 tablet (10 mg) by mouth Daily 30 tablet 08/07/2024 08/07/2025 ActivebusPIRone hydrochloride 7.5 mg oral tablet (1 source)Start: 26-38-4545fyrj 1 tablet by mouth twice dailyBuspirone 7.5 mg tablet Active 7.5 MG PO Twice daily January 18, 2025 12:00am Complies with drugtherapycefdinir 300 mg oral capsule (5 sources)Cephalosporin AntibacterialStart: 04-12-2024 End: 50-51-4624smdu 1 capsule by mouth in the morningcefdinir (Omnicef) 300 MG capsule Indications: Urinary tract infection without hematuria, site unspecified Take 1 capsule (300 mg) by mouth in the morning and 1 capsule (300 mg) before bedtime. Do all this for 10 days. 20 capsule 04/12/2024 04/22/2024 Active clonazePAM 0.25 mg disintegrating oral tablet (1 source)BenzodiazepineStart: 84-73-7528xcea 1 tablet by mouth once daily as neededClonazepam 0.25 mg tablet,disintegrating Active 0.25 MG PO Daily as needed January 18, 2025 12:00am Complies with drug therapydiazePAM 5 mg oral tablet (20 sources)BenzodiazepineStart: 35-99-5856xoil 1 tablet by mouth once daily as neededDiazepam 5 mg tablet Active 5 MG PO Daily as needed January 18, 2025 12:00am Complies with drug therapyStart: 09-29-2024 End: 91-73-4257pcra 1 tablet by mouth four times daily as needed for anxiety diazePAM (Valium) 5 MG tablet Indications: DALILA (generalized anxiety disorder) TAKE 1 TABLET BY MOUTH FOUR TIMES A DAY NEEDED FOR ANXIETY FOR 10 DAYS 40 tablet 01/02/2025 ActiveStart: 09-13-2024 End: 57-40-3948dpkw 1 tablet by mouth four times daily as needed for anxiety diazePAM (Valium) 2 MG tablet Indications: DALILA (generalized anxiety disorder) (CMS/HCC) Take 1 tablet (2 mg) by mouth 4 (four) times a day as needed for anxiety for up to 10 days 40 tablet / Discontinued (Reorder) Start: 02-17-2024 End: 73-62-5013ajdf 1 tablet by mouth four times daily as needed for anxiety diazePAM (Valium) 2 MG tablet Indications: DALILA (generalized anxiety disorder) (CMS/HCC) Take 1 tablet (2 mg) by mouth 4 (four) times a day as needed for anxiety for up to 10 days 40 tablet 02/17/2024ctivedocusate sodium 50 mg / sennosides, nursing home 8.6 mg oral tablet (20 sources)Start: 09-20-2024 End: 19-96-0706euxz 2 tablets by mouth in the morningsenna-docusate sodium (Senokot-S) 8.6-50 MG tablet Indications: Constipation, unspecified constipation type Take 2 tablets by mouth in the morning and 2 tablets before bedtime. 360 tablet 3 09/20/2024 09/20/2025 ActiveStart: 30-17-5570ieue 2 tablets by mouth in the morningsenna-docusate sodium (Senokot-S) 8.6-50 MG tablet Indications: Constipation, unspecified constipation type Take 2 tablets by mouth in the morning and 2 tablets before bedtime. 60 tablet 5 08/22/2024tive End: 25-55-1980fkoi 1 tablet by mouth once dailysenna-docusate sodium (Senokot- S) 8.6-50 MG tablet Take 1 tablet by mouth Daily 08/22/2024 Discontinued (Reorder)take 1 tablet by mouth three times dailySENEXON-S 8.6-50 mg per tablet Take 1 tablet by mouth three times a day. Activedonepezil hydrochloride 5 mg oral tablet (11 sources)Start: 05-22-2024 End: 73-55-4493zied 1 tablet by mouth once daily after breakfastdonepezil (ARICEPT) 5 mg tablet TAKE 1 TABLET BY MOUTH DAILY AFTER BREAKFAST. 90 tablet 1 07/27/2024 Activeescitalopram 5 mg oral tablet (1 source)Serotonin Reuptake InhibitorStart: 24-24-8560wglh 1 tablet by mouth once dailyEscitalopram Oxalate 5 mg tablet Active 5 MG PO Daily January 18, 2025 12:00am Complies with drug therapyhaloperidol 1 mg oral tablet (20 sources)Typical AntipsychoticStart: 01-11-2024 End: 01-63-1613vfoexyuhpxa (Haldol) 1 MG tablet Indications: Rapidly progressive dementia (CMS/HCC) TAKE 1/2 TABLET (0.5MG) IN THE MORNING AND TAKE 1 TABLET (1MG) AT SUPPER 30 tablet 1 01/11/2024 05/29/2024 Discontinued (Side effects) Start: 09-22-2023 End: 54-24-4667ljpa 1 tablet by mouth once dailyHaloperidol 0.5 mg Tablet Discontinued 0.5 MG PO Daily September 22, 2023 12:00am January 18, 2025 10:59amStart: 09-22-2023 End: 97-94-0607yxct 1 tablet by mouth at bedtimeHaloperidol 1 mg Tablet Discontinued 1 MG PO Bedtime September 30, 2023 12:00am January 18, 2025 10:59am Start: 11-03-4479Jgpvrlxsuev Active 0.5 MG PO every 4 to 5 hours September 14, 2023 12:00amStart: 09-14-2023 End: 38-19-2478qqar 1 tablet by mouth twice dailyHaloperidol 0.5 mg tablet Discontinued 0.5 MG PO Twice daily September 14, 2023 12:00am September 210:00am 8am and 5pmStart: 09-14-2023 End: 64-92-7767Rsuliayxcyw 1 mg tablet Discontinued 0.5 MG PO every 4 to 5 hours as needed for anxiety August 12:00am January 18, 2025 11:00am haloperidol (HALDOL) 1 mg tablet Take 1 mg by mouth two times a day. September take 0.5mg at 6pm. PRN: 1mg every 4.5 hours ActivehydrOXYzine hydrochloride 25 mg oral tablet (20 sources)AntihistamineStart: 02-14-2024 End: 71-17-0260qzxd 1 tablet by mouth four times daily as needed for anxiety hydrOXYzine HCl (Atarax) 25 MG tablet Indications: DALILA (generalized anxiety disorder) (CMS/HCC) TAKE 1 TABLET (25 MG) BY MOUTH 4 (FOUR) TIMES A DAY NEEDED FOR ANXIETY 360 tablet 2 02/14/2024 05/29/2024 Discontinued (Side effects)Start: 09-14-2023 End: 21-64-8656unfa 1 tablet by mouth twice dailyHydroxyzine Hcl 25 mg tablet Discontinued 25 MG PO Twice daily September 14, 2023 12:00am January 18, 2025 11:00am 11am and 6pmStart: 31-88-8891uiir 1 tablet by mouth four times daily as needed for anxietyhydrOXYzine HCl (Atarax) 25 MG tablet Indications: DALILA (generalized anxiety disorder) (CMS/HCC) TAKE 1 TABLET (25 MG) BY MOUTH 4 (FOUR) TIMES A DAY NEEDED FOR ANXIETY 360 tablet 2 05/25/2023 Activelactulose 667 mg/ml oral solution (20 sources)Osmotic LaxativeStart: 04-17-2024 End: 09-23-6610sjlt 10 g by mouth at bedtimelactulose (Chronulac) 10 GM/15ML solution Indications: Constipation, chronic Take 15 mL (10 g) by mouth in the morning and 15 mL (10 g) before bedtime. 900 mL 11 04/17/2024 04/17/2025 Active Start: 60-11-9605igpg 10 g by mouth at bedtimelactulose (Chronulac) 10 GM/15ML solution Take 10 g by mouth at bedtime 12/16/2023 ActiveStart: 09-15-2023 End: 68-30-1426czis 1 mL by mouth twice dailyLactulose 10 gram/15 mL solution Discontinued 30 ML PO Twice daily September 15, 2023 12:00am September 30, 2023 7:36am mirtazapine 15 mg oral tablet (20 sources)Start: 45-11-8908cdfb 1 tablet by mouth at bedtimemirtazapine (Remeron) 15 MG tablet Indications: MDD (major depressive disorder), recurrent episode,mild (HCC) (CMS/HCC) TAKE 1 TABLET BY MOUTH AT BEDTIME 90 tablet 2 02/28/2024 ActiveStart: 06-08-2023 End: 79-57-4951opfx 1 tablet by mouth once daily at bedtimeMirtazapine 7.5 mg Tablet Discontinued 7.5 MG PO Daily at bedtime June 08, 2023 1:00am January 18, 2025 11:00amOLANZapine 2.5 mg oral tablet (15 sources)Atypical AntipsychoticStart: 09-20-2024 End: 14-98-0566dtwz 1 tablet by mouth at bedtimeOLANZapine (ZyPREXA) 2.5 MG tablet Indications: Constipation, unspecified constipation type Take 1 tablet (2.5 mg) by mouth at bedtime 90 tablet 3 09/20/2024 09/20/2025 ActiveOLANZapine (ZyPREXA) 2.5 MG tablet 2.5 mg at bedtime Activeondansetron 4 mg disintegrating oral tablet (3 sources)Serotonin-3 Receptor AntagonistStart: 79-77-9305vcfn 1 tablet by mouth every six hours as needed for nausea and vomiting and nausea and nausea ondansetron ODT (Zofran-ODT) 4 MG disintegrating tablet Indications: Nausea Take 1 tablet (4 mg) bymouth every 6 (six) hours if needed for nausea or vomiting 30 tablet 3 06/22/2023 Fszlmu61 hr rivastigmine 0.192 mg/hr transdermal system (1 source)Start: 00-33-7214Idcrhzfzkrbp 4.6 mg/24 hour patch 24 hour Active 4.6 MG TRANSDERML Daily January 18, 2025 12:00am Complies with drug therapy Sennosides (Senna) 8.6 mg capsule (3 sources)Start: 68-62-7690kmzp 2 capsules by mouth twice dailySennosides (Senna) 8.6 mg capsule Active 17.2 MG PO Twice daily September 13, 2023 11:00pm Start: 30-58-7393pjof 2 capsules by mouth twice dailySennosides (Senna) 8.6 mg capsule Active 17.2 MG PO Twice daily September 14, 2023 12:00amStart: 09-14-2023 take 1 capsule by mouth twice dailySennosides (Senna) 8.6 mg capsule Active 8.6 MG PO Twice daily September 14, 2023 12:00amsennosides, nursing home 8.6 mg oral tablet (2 sources)Start: 37-60-0405oliz 2 tablets by mouth twice dailySennosides 8.6 mg tablet Active 17.2 MG PO Twice daily January 18, 2025 12:00am Complies with drug therapyStart: 09-14-2023 End: 42-82-5292oeep 2 capsules by mouth twice dailySennosides (Senna) 8.6 mg capsule Discontinued 17.2 MG PO Twice daily September 14, 2023 12:00am January 18, 2025 11:00amsertraline 25 mg oral tablet (15 sources)Serotonin Reuptake InhibitorStart: 09-20-2024 End: 22-40-9080when 1 tablet by mouth once dailysertraline (Zoloft) 25 MG tablet Indications: Constipation, unspecified constipation type Take 1 tablet (25 mg) by mouth Daily 90 tablet 3 09/20/2024 09/20/2025 Activetake 1 tablet by mouth once dailysertraline (Zoloft) 25 MG tablet Take 25 mg by mouth Daily Activewheat dextrin 3000 mg powder for oral solution (1 source)Start: 39-07-6953Cinnpidio 100% oral powder as needed for constipation, Refill(s) 0 Start Date: 8/25/23 Status: Ordered Completed/Discontinued Medications MedicationDrug Class(es)DatesSig (Normalized)Sig (Original)clotrimazole 10 mg/ml topical cream (5 sources)Azole AntifungalStart: 08-22-2024 End: 95-52-9340devfziqdyyrp (Lotrimin) 1 % cream Indications: Candidal skin infection Apply topically 2 (two) times a day 30 g 2 08/22/2024 09/13/2024 Discontinuedmelatonin 10 mg oral capsule (18 sources)Start: 12-07-2023 End: 85-93-2382tnba 1 capsule by mouth at bedtimeMelatonin 10 MG capsule Indications: Primary insomnia Take 10 mg by mouth at bedtime 30 capsule 5 03/20/2024 Discontinued (Therapy completed)Start: 09-14-2023 End: 84-62-9755pesr 1 tablet by mouth once daily at bedtimeMelatonin 10 mg tablet extended release Discontinued 10 MG PO Daily at bedtime September 14, 2023 12:00am January 18, 2025 11:00ammeloxicam 7.5 mg oral tablet (10 sources)Nonsteroidal Anti-inflammatory DrugStart: 05-25-2023 End: 14-65-9066pgnj 1 tablet by mouth once daily as needed for painMeloxicam 7.5 mg tablet Discontinued 7.5 MG PO Daily as needed for Pain May 25, 2023 1:00am September 14, 2023 10:32pmmorphine sulfate 20 mg/ml oral solution (18 sources)Opioid AgonistStart: 09-14-2023 End: 66-70-6264Peuuexic Concentrate 100 mg/5 mL (20 mg/mL) solution Discontinued 5 MG PO EVERY 1-2 HOURS as neededfor pain September 14, 2023 12:00am January 18, 2025 11:00amStart: 07-24-2023 End: 17-20-0997yvroivva 100 MG/5ML concentrated solution every 1 (one) hour if needed 07/24/2023 03/20/2024 Discontinued (Therapy completed)Nystatin (6 sources)Polyene AntifungalStart: 08-14-2024 End: 82-09-0694Wxptvenn powder Indications: Skin candidiasis 1 Application in the morning and at noon 1 each 2 08/14/2024 09/13/2024 DiscontinuedStart: 18-50-7323Zigkooae powder Indications: Skin candidiasis 1 Application in the morning and at noon 1 each 2 08/14/2024 ActiverisperiDONE 1 mg oral tablet (18 sources)Atypical AntipsychoticStart: 06-08-2023 End: 08-30-1344oahh 1 tablet by mouth at bedtimeRisperidone 0.25 mg Tablet Discontinued 0.25 MG PO Bedtime June 08, 2023 1:00am September 14, 2023 10:33pmStart: 06-08-2023 End: 86-61-1626wcnm 1 tablet by mouth twice dailyRisperidone 1 mg tablet Discontinued 1 MG PO Twice daily June 08, 2023 1:00am September 14, 2023 10:33pm Problems Active Problems Problem ClassificationProblemDateDocumented DateEpisodic/ChronicAbdominal pain (1 source)Generalized abdominal tlff41-78-1069VnkfgyjlKeppcbu disorders (20 sources)Generalized anxiety disorder; Translations: [Anxiety]Onset: 470965-51-4453ZnugrknXjsamlh dysrhythmias (20 sources)Paroxysmal supraventricular tachycardia; Translations: [Paroxysmal supraventricular tachycardia]Onset: 843813-49-0521MfllwusUscntkmo, dementia, and amnestic and other cognitive disorders (20 sources)Dementia; Translations: [Unspecified dementia without behavioral disturbance]Onset: 09-07-2023 Resolved: 786044-01-1074YcrqsceCofjaglq mellitus without complication (5 sources)Impaired fasting glucose; Translations: [Impaired fasting glycemia] Onset: 08-77-6373QwmzgrkiYjrcagcog of lipid metabolism (20 sources)Hyperlipidemia, unspecified; Translations: [Dyslipidemia]Onset: 150864-63-4733RtxnkriLprekjpqwm disorders (1 source)Gastroesophageal reflux honhqoe66-24-1300DuebejaEisyvlv on above:diet controlledGenitourinary symptoms and ill-defined conditions (4 sources)Dysuria; Translations: [Dysuria]00-70-8045DxafromgNqkaeckjxlsqf mental health disorders (20 sources)Primary insomnia; Translations: [Primary insomnia]Onset: 10-13-2023 27-46-9369KoclqxeVqar disorders (20 sources)Depressive disorder; Translations: [Depression]Onset: 06-09-2023 48-47-9169VitwyweJdoc disorders (1 source)Mood disorders; Translations: [Depression, unspecified]Onset: 28-00-7111Wvyjlmk (10 sources)Onychomycosis due to dermatophyte ; Translations: [Tinea unguium] 16-35-3850EgbdvjwdPbklvaxceyy deficiencies (20 sources)Moderate protein energy malnutrition; Translations: [Moderate protein-calorie malnutrition]Onset: 158566-62-4348NorvdkaKykefzqbyekwvm (20 sources)Primary gonarthrosis, bilateral; Translations: [Bilateral primary osteoarthritis of knee]Onset: 554903-42-8021ZugrwmvHtfuf aftercare (1 source)Other alf (current) drug therapy; Translations: [OTH SUPERVISOR WEBBING CURRENT DRUG THERAPY]Onset: 54-56-7623XqqtmyzoBtcok bone disease and musculoskeletal deformities (2 sources)Osteopenia; Translations: [Other specified disorders of bone density and structure, unspecified site]82-97-0380DnhudrrkYirow connective tissue disease (16 sources)Pain in toe; Translations: [Pain in right toe(s)]73-38-7444Ihdvmcwk Other gastrointestinal disorders (5 sources)Other constipation; Translations: [OTHER CONSTIPATION]Onset: 86-90-3063AiagsppmZutkd gastrointestinal disorders (2 sources)Altered bowel function; Translations: [Change in bowel habit]Onset: 58-49-0330ZyynfujlOtjxi gastrointestinal disorders (1 source)Constipation; Translations: [Constipation, unspecified]08-22-2024 EpisodicOther nervous system disorders (20 sources)Walking disability; Translations: [Difficulty in walking, not elsewhere classified]Onset: 732662-95-4889FuiokqpXpmkc nervous system disorders (20 sources)Secondary parkinsonism; 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, unspecified]Onset: 255164-07-8709QvfcjfgXcwmt nutritional; endocrine; and metabolic disorders (1 source)Hboramgdhp50-96-8582QzvujbayTchfb nutritional; endocrine; and metabolic disorders (1 source)Overweight in adulthood with body mass index of 25 or more but less than 6893-76-5532XvbqrwrkOingn screening for suspected conditions (not mental disorders or infectious disease) (1 source)Stool DNA-based colorectal cancer screening ncrgypdx98-51-1460Ogdeskqz Other skin disorders (8 sources)Dystrophia unguium; Translations: [Nail dystrophy]76-25-0074Zsyefuyo Residual codes; unclassified (10 sources)REM sleep behavior disorder; Translations: [REM sleep behavior disorder]Onset: 965704-06-7788LgggxzhWmvtgvcw codes; unclassified (2 sources)REM sleep behavior disorder; Translations: [REM sleep behavior disorder]Onset: 23-57-2232ArpxrvwKhvphytw codes; unclassified (1 source)Family history of stroke; Translations: [FAMILY HISTORY OF STROKE] Onset: 00-80-1847TjpeggtuHinrhvmi codes; unclassified (5 sources)Confusional state; Translations: [Disorientation, unspecified] 90-61-9341NhuxprtdXuknjsej codes; unclassified (1 source)Disorientation, unspecified; Translations: [Unspecified psychosis] 60-38-7092JqfszmuwJvtjbmqo codes; unclassified (1 source)History of vaginal hysterectomy; Translations: [Acquired absence of both cervix and uterus]62-72-1464BbmagamaOhsrvrsj codes; unclassified (1 source)History of adenoidectomy; Translations: [Acquired absence of other organs]76-87-3406YpomzewwEiscfzmbpvzyn and other psychotic disorders (1 source)Unspecified psychosis not due to a substance or known physiological condition; Translations: [Unspecified psychosis not due to a substance or known physiological condition]Onset: 06-74-2466FvsomchEojmchyhmvx; intervertebral disc disorders; other back problems (20 sources)Cervical disc disorder; Translations: [Degeneration of cervical intervertebral disc]Onset: 393982-12-1894GujqerwSruyxph and strains (1 source)Neck sprain; Translations: [Sprain of joints and ligaments of unspecified parts of neck, initial encounter]14-58-4205AfhdcmhoWfcfcht and intentional self-inflicted injury (10 sources)Suicidal thoughts; Translations: [Suicidal ideations]05-25-2023 EpisodicUnclassified (3 sources)CONTACT W/AND (SUSP) EXPOS COVID-19; Translations: [CONTACT W/AND (SUSP) EXPOS COVID-19]Onset: 22-68-7508Zbxiykocbrmh (8 sources)Patient on antidepressant monitoring planOnset: Unclassified (8 sources)Baseline PHQ-9Onset: 743344-19-9917Oeanojujfoyf (2 sources)Med Management; Translations: [Med Management]Onset: 12-15-2024 Unclassified (1 source)Dementia in other diseases classified elsewhere, moderate, with agitation; Translations: [Dementia in other diseases classified elsewhere, moderate, with agitation]Onset: 11-10-2024 Past or Other Problems Problem ClassificationProblemDateDocumented DateEpisodic/ChronicBlindness and vision defects (10 sources)Visual hallucinations; Translations: [Visual hallucinations]Onset: 692196-26-9764ZdmsgnioJftguqkzac associated with dizziness or vertigo (20 sources)Dizziness and giddiness; Translations: [Benign paroxysmal positional vertigo]Onset: 879580-24-2573FoylvqxlZltze and electrolyte disorders (13 sources)Dehydration; Translations: [Dehydration]Onset: EpisodicMalaise and fatigue (20 sources)Other fatigue; Translations: [Asthenia]Onset: EpisodicNausea and vomiting (13 sources)Nausea and vomiting; Translations: [Nausea with vomiting, unspecified]Onset: 522628-07-9026IwbdhvhvVilgf aftercare (20 sources)Patient encounter status; Translations: [Other alf (current) drug therapy]Onset: 710481-81-1789JwklcmfiVsshl aftercare (20 sources)Long-term current use of drug therapy; Translations: [Other alf (current) drug therapy]Onset: 699717-34-8901UincsxnnNobei circulatory disease (20 sources)Orthostatic hypotension; Translations: [Orthostatic hypotension] Onset: 888111-55-3616BrjvzmbtHnbxq connective tissue disease (20 sources)Bursitis of olecranon of right elbow; Translations: [Olecranon bursitis, right elbow]Onset: 584954-97-0080YjjeclpfTixdi gastrointestinal disorders (20 sources)Chronic constipation; Translations: [Other constipation]Onset: 483446-41-3345XstwnickLuvzp gastrointestinal disorders (2 sources)Slow transit constipation; Translations: [Slow transit constipation] Onset: 21-28-1495XbdaornaLksuq hereditary and degenerative nervous system conditions (20 sources)Mild cognitive disorder ; Translations: [Mild cognitive impairment, so stated]Onset: 06-09-2023 Resolved: 874146-85-4315PkbakvqDfjpz infections; including parasitic (20 sources)Personal history of other infectious and parasitic diseases; Translations: [Personal history of COVID-19]Onset: 245337-78-6479Xpopsded Other lower respiratory disease (20 sources)Dyspnea; Translations: [Dyspnea, unspecified]Onset: 09-07-2023 89-18-0866EeqpdgzzOizvv nervous system disorders (20 sources)Carpal tunnel syndrome; Translations: [Carpal tunnel syndrome, unspecified upper limb]Onset: 05-28-2023 Resolved: 637086-03-9042JroedzeZhwws nervous system disorders (20 sources)Metabolic encephalopathy; Translations: [Metabolic encephalopathy] Onset: 07-24-2023 Resolved: 825608-10-7311YdvnumaHtodz nervous system disorders (20 sources)Impairment of balance; Translations: [Other abnormalities of gait and mobility]Onset: 354003-88-9054EzyukbksPhrht nervous system disorders (20 sources)Abnormal gait; Translations: [Unsteadiness on feet]Onset: 12-24-2023 56-73-7391EajrytigZngpw non-traumatic joint disorders (4 sources)Pain in right elbow; Translations: [PAIN IN RIGHT ELBOW]Onset: 11-83-6259PftzlbrvLrnvvotl codes; unclassified (20 sources)Family history of stroke; Translations: [Family history of stroke] Onset: 239245-79-5903UruurkdbGapaxdhj codes; unclassified (2 sources)Hallucinations, unspecified; Translations: [Hallucinations, unspecified]Onset: 54-93-7156ChyaeosvHfbsapmz codes; unclassified (2 sources)Pain, unspecified; Translations: [Pain, unspecified]Onset: 06-09-2024 EpisodicSpondylosis; intervertebral disc disorders; other back problems (20 sources)Neck pain; Translations: [Cervicalgia]Onset: 12-31-2022 Resolved: [id number] (1 source)CONTACT W/AND (SUSP) EXPOS COVID-19; Translations: [CONTACT W/AND (SUSP) EXPOS COVID-19]Onset: 20-42-5366Svklqgtyjaqd (1 source)Entire carpal canal (body structure)50-35-6362Sxhsfho on above:had left doneUnclassified (1 source)Dementia in other diseases classified elsewhere, moderate, with agitation; Translations: [Dementia in other diseases classified elsewhere, moderate, with agitation]Onset: 82-03-4937Nqxzfjo tract infections (20 sources)Recurrent urinary tract infection; Translations: [Urinary tract infection, site not specified]Onset: 060931-11-2706Wmesadrg Results Test NameValueInterpretationReference RangeFacilityRefillon 63-36-2592Cnrhuy [id number] Donnie Bullock 1955 Date Provider Department Center 01/04/2025 JADA CORREA [facility] PS[facility] Ramone Heal No family history on file Reason for Visit and Comments: Med Refill [[id number]][facility] 12-16-2024 [id number] Donnie Bullock 1955 Date Provider Department Center 12/16/2024 404JADA PARK [facility] PS[facility] Ramone Heal No family history on file Reason for Visit and Comments: Med Refill [[id number]][facility]Office Visiton 53-74-5784Imvpur-up [id number] Donnie Bullock 1955 Date Provider Department Center 12/15/2024 JADA CORREAC PSYCH Ramone Heal No family history on file Level of Service:27944 [place] OFFICE/OUTPATIENT ESTABLISHED LOW MDM 20 MIN Reason for Visit and Comments: Med Management [[id number]][facility] HealthRefformerly [facility] [id number] Donnie Bullock 1955 F Provider Department Center 12/07/2024 407-KELBY BREE [facility] PS[facility] Ramone Heal No family history on file Reason for Visit and Comments: Med Refill [[id number]][facility] 12-06-2024 [id number] Donnie Bullock 1955 Provider Department Center 12/06/2024 404-JADA EPPS [facility] PS[facility] Ramone Heal No family history on file Reason for Visit and Comments: Med Change Request [411][facility] [id number] Donnie Bullock 1955 Provider Department Center 12/06/2024 407-KELBY BREE [facility] PS[facility] Ramone Heal No family history on file Reason for Visit and Comments: Med Change Request [411][facility]36on 11-14-2024 36Approving, but needs appt for additional refills.[facility]36on 93-60-595077Radrwfnfc, but needs appt for additional refills. [facility] Visiton 27-74-4469Fiqntx-up [id number] Donnie Bullock 1955 Provider Department Center 11/10/2024 404-JADA AGUILLON [facility] PSYCH Ramone Heal No family history on file Level of Service:30299 [place] PSYCHIATRIC DIAGNOSTIC EVAL W/MEDICAL SERVICES Reason for Visit and Comments: Psychiatric Evaluation [[id number]][facility] HealthAbstract on [id number] Donnie Bullock 1955 Date Provider Department Center 11/06/2024 Stiven-NIKKY LOMAS CCC MICHAEL Comprehensiv No family history on fileNormalUniOhioHealth Dublin Methodist Hospital Medical Qibziz05tn 71-37-193407Owv outpatient provider. Only seen in patientNoProMedica [facility] Hospital36Not outpatient provider. Patient only seen inpatient [facility]Re[facility] [id number] Donnie Bullock Dylan 1955 F Date Provider Department Center 07/27/202435771-TGGCCECI SALGUERO [facility] PSYCH Ramone Heal No family history on file Reason for Visit and Comments: Med Change Request [411][facility]36on 07-18-2024 36Not outpatient providerNormMercy Health Allen HospitalRefformerly [facility] [id number] Donnie Bullock Dylan 1955 F Date Provider Department Center 07/17/202421376-QXVOCECI SALGUERO [facility] PSYCH Ramone Heal No family history on file Reason for Visit and Comments: Med Refill [[id number]]NormalEast Liverpool City HospitalACETAMINOPHEN LEVEL on 94-35-9252ZAQHXRQZWYMMF (UG/ML) IN SER/PLAS<46Zcx24-44LwclenhltlProMedica Fostoria Community HospitalComment on above:Performed By: #### [id number] #### [facility] ([employer]) [address] [place], [place] [address]RLCNP METABOLIC PANELon 49-50-4219Xryft gap [Moles/Vol]12 mmol/L Normal7-20UnProMedica Fostoria Community HospitalComment on above:Performed By: #### [id number] #### [facility] ([employer]) [address] [place], [place] [address]Iuixjaf [Mass/Vol]9.7 mg/dLNormal8.6-10.3UnProMedica Fostoria Community HospitalComment on above:Performed By: #### [id number] #### [facility] ([employer]) [address] [place], [place] [address]Rzllbybj [Moles/Vol]106 mmol/AIwlote86-036ObgknxmnlvProMedica Fostoria Community HospitalComment on above:Performed By: #### [id number] #### [facility] ([facility] [address] [place] [address]MB8 [Moles/Vol]22 mmol/KZmhxgq54-26EwxuxrwormProMedica Fostoria Community HospitalComment on above:Performed By: #### [id number] #### [facility] ([facility]) [address] [place] [address]Akkterlemb [Mass/Vol]0.61 mg/dLNormal0.60-1.20UnProMedica Fostoria Community HospitalComment on above:Performed By: #### [id number] #### [facility] ([facility]) [address] [place] [address]OPARJFPJQW FILTRATION RATE ML/MIN/1.73 SQ M.BNOXBOELE08.1 mL/min/1.73m*2Normal>60.0UnProMedica Fostoria Community HospitalComment on above: Result Comment: The [facility]???s estimated glomerular filtration rate (eGFR) will no longer include consideration of race in its calculation. The National Kidney Foundation???s eGFR Task Force developed new recommendations for the estimation of the glomerular filtration rate in the [place] They recommend immediate implementation of the new equation refit without the race variable in all laboratories because the calculation does not include race. In addition to not including race in the calculation and reporting, it included diversity in its development, and has acceptable performance characteristics and potential consequences that do not disproportionately affect anyone group of individuals.Performed By: #### [id number] #### [facility] ([facility]) [address] [place] [address]Tziyref [Mass/Vol]103 mg/jQOuku28-962KcvbcgrpswProMedica Fostoria Community HospitalComment on above:Performed By: #### [id number] #### [facility] ([facility]) [address] [place] [address]Gthyvuidn [Moles/Vol]4.3 mmol/LNormal3.5-5.1UnProMedica Fostoria Community HospitalComment on above:Performed By: #### [id number] #### [facility] ([facility]) [address] [place] [address]Dbwyhy [Moles/Vol]136 mmol/SYoqiso759-720HzwwclrojwProMedica Fostoria Community HospitalComment on above:Performed By: #### [id number] #### [facility] ([facility]) [address] [place] [address]Orew nitrogen [Mass/Vol]16 mg/dLNormal7-25UnProMedica Fostoria Community HospitalComment on above:Performed By: #### [id number] #### [facility] ([facility]) [address] [place] [address]NREC NITROGEN/CREATININE (MASS RATIO) IN SER/PLAS26.2Normal [facility] City HospitalComment on above:Performed By: #### [id number] #### [facility] ([facility]) [address] [place], [place] [address]DIE WITH AUTO DIFFERENTIALon 68-64-1259Nryazwesm (Bld) [#/Vol] 0.03 10*3/uLNormal0.00-0.20UnProMedica Fostoria Community HospitalComment on above: Performed By: #### [id number] #### [facility] ([facility]) [address] [place] [address]Tqjlvfvkg/100 WBC (Bld)0.5 %Normal0.0-1.0UnProMedica Fostoria Community HospitalComment on above:Performed By: #### [id number] #### [facility] ([facility]) [address] [place] [address]Xfdppbzyvml (Bld) [#/Vol]0.04 10*3/uLNormal0.00-0.50UnProMedica Fostoria Community HospitalComment on above:Performed By: #### [id number] #### [facility] ([facility]) [address] [place] [address]Iatawsxbxpk/100 WBC (Bld)0.7 %Normal0.0-6.0UnProMedica Fostoria Community HospitalComment on above:Performed By: #### [id number] #### [facility] ([facility]) [address] [place], [place] [address]Dvmbkakjgta distribution width (RBC) [Ratio]12.2 %Normal 11.5-15.0UnProMedica Fostoria Community HospitalComment on above:Performed By: #### [id number] #### [facility] ([facility]) [address] [place] [address]WMIZPKCGXAZ MEAN CORPUSCULAR HEMOGLOBIN CONCENTRATION (G/DL) BY IZWMMMTBY13.8 g/jDMqnhvo34.0-35.0UnProMedica Fostoria Community HospitalComment on above:Performed By: #### [id number] #### [facility] ([facility]) [address] [place] [address]Houbkiysxy (Bld) [Volume fraction]40.0 %Lcquvs04.0-48.0 [facility] City HospitalComment on above:Performed By: #### [id number] #### [facility] ([facility]) [address] [place] [address]Dmjyyvsxjp (Bld) [Mass/Vol]13.5 g/nVStsymk37.0-15.0UnProMedica Fostoria Community HospitalComment on above:Performed By: #### [id number] #### [facility] ([facility]) [address] [place] [address]Cqezbjid granulocytes (Bld) [#/Vol]0.02 10*3/uLNormal0.00-0.20 [facility] City HospitalComment on above:Performed By: #### [id number] #### [facility] ([facility]) [address] [place] [address]Njzohmmx granulocytes/100 WBC (Bld)0.3 %Normal0.0-1.0UnProMedica Fostoria Community HospitalComment on above:Performed By: #### [id number] #### [facility] ([facility]) [address] [place] [address]Ncprsqjbtov (Bld) [#/Vol]1.37 10*3/uLNormal1.20-4.00UnProMedica Fostoria Community HospitalComment on above:Performed By: #### [id number] #### [facility] ([facility]) [address] [place], [place] [address]Daxqmfdognz/100 WBC (Bld)23.7 %Barbni96.0-45.0UnProMedica Fostoria Community HospitalComment on above:Performed By: #### [id number] #### [facility] ([facility]) [address] [place], [place] [address]OTO (RBC) [Entitic mass]30.3 mkYxkwfe22.0-33.0UnProMedica Fostoria Community HospitalComment on above:Performed By: #### [id number] #### [facility] ([facility]) [address] [place], [place] [address]KUM (RBC) [Entitic vol]89.7 fACiehhf85.0-98.0UnProMedica Fostoria Community HospitalComment on above:Performed By: #### [id number] #### [facility] ([facility]) [address] [place], [place] [address]Yowsfhgcb (Bld) [#/Vol]0.40 10*3/uLNormal0.10-1.00UnProMedica Fostoria Community HospitalComment on above:Performed By: #### [id number] #### [facility] ([facility]) [address] [place], [place] [address]Qggyketsp/100 WBC (Bld)6.9 %Normal5.0-12.0UnProMedica Fostoria Community HospitalComment on above:Performed By: #### [id number] #### [facility] ([facility]) [address] [place], [place] [address]Hpbxeuivmvl (Bld) [#/Vol]3.93 10*3/uLNormal1.60-7.60UnProMedica Fostoria Community HospitalComment on above:Performed By: #### [id number] #### [facility] ([facility]) [address] [facility] [place] [address]Htlqtfswfae/100 WBC (Bld)67.9 %Siwefq98.0-72.0UnProMedica Fostoria Community HospitalComment on above:Performed By: #### [id number] #### [facility] ([facility]) [address] [place] [address]KLQN (PER 100 WBCS) BY AUTOMATED COUNT0.0 %Jrozdb3GxbwfsfqwsProMedica Fostoria Community HospitalComment on above:Performed By: #### [id number] #### [facility] ([facility]) [address] [place] [address]ZNKPABIZE (10*3/UL) IN BLOOD AUTOMATED NCQVE822 10*3/uLNormal 150-400UnProMedica Fostoria Community HospitalComment on above:Performed By: #### [id number] #### [facility] ([facility]) [address] [place] [address]WDD (Bld) [#/Vol]4.46 10*6/uLNormal3.80-5.00UnProMedica Fostoria Community HospitalComment on above:Performed By: #### [id number] #### [facility] ([facility]) [address] [place] [address]ORR (Bld) [#/Vol]5.79 10*3/uLNormal4.00-10.60UnProMedica Fostoria Community HospitalComment on above:Performed By: #### [id number] #### [facility] ([facility]) [address] [address]ZASHUCql 29-06-4584WRWOGUQvytgxc is a 68-year-old female presenting to [facility] ED via private auto along with her , Vimal, c/o increased AVH and decreased PO intake since 07/07/24. Patient was A&Ox2 at this time, oriented to self and time. Patient's was currently present at bedside and assisted the patient with providing information. 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 Patient identified her support system as her , her four children, and her grandchildren. Patient's , Vimal, is the patient's POA. Patient is ambulatory and independent with ADLs without the use of any DME and denied any h/o falls. Patient noted that she sometimes uses a cane when walking longer distances, though does not use any DME for ambulation at home. PMH includes Lewy body dementia, Parkinson's disease, DALILA, and paroxysmal supraventricular tachycardia. Patient endorsed a family h/o mental health issues of past post- depression in her mother, and endorsed a family h/o MARY LOU of alcoholism in her great-grandfather who is now . Patient denied SI or thoughts of harming herself and denied HI or thoughts of harming others. Patient's reported noticing AVH from the patient of her seeing and talking to relatives, which has been present for the past year though has noticeably worsened beginning on 07/07/24. Patient endorsed paranoia r/t believing that her may pass away soon. Patient stated that she believes that this may happen because of her 's a-fib. Patient's also noted sxs of uncontrollable crying from the patient since this past 07/07/24. Patient denied any h/o suicide attempts and patient's endorsed a h/o two inpatient psychiatric admissions for the patient: [facility] on 06/09/24 and [facility] in August of 2023, both for dementia with behavioral disturbance. Patient's denied any h/o seclusion or restraints for the patient during hospitalization and denied any h/o violence or aggression towards hospital staff or other patients during hospitalization from the patient. Patient denied any current or h/o NSSI. Patient's reported substance use for the patient of infrequent use of marijuana in the form of edibles. Patient's denied any additional substance use from the patient including alcohol, nicotine, tobacco, or any illicit drugs. Patient's also denied any h/o MARY LOU tx for the patient. Patient's denied any current involvement in outpatient mental health therapy or psychiatry for the patient. Patient is currently prescribed the following medications: - Acetaminophen 650mg PO Q6H PRN - Atorvastatin calcium 10mg PO at bedtime - Bisacodyl 10mg rectal every day PRN - Bisacodyl 5mg PO every day PRN - Clonazepam 0.25mg PO TID - Escitalopram oxalate 5mg PO every day - Melatonin 20mg PO at bedtime - Memantine HCl 5mg PO BID - Pimavanserin tartrate 34mg PO every day - Polyethylene glycol 3350 17g PO every day PRN - Sennosides/docusate sodium 8.6-50mg PO 2QHS Patient uses the [facility] pharmacy in [place], [place] (P: [phone]; F: [phone]). Patient is reportedly compliant with medications as prescribed. Patient's denied any current legal issues for the patient, denied any h/o felonies or incarceration for the patient, denied any h/o violence towards others from the patient, and denied any h/o sexual offenses or sexually inappropriate bx towards others from the patient. Patient's reported that the patient has been sleeping approximately six hours per night and has been waking up very early in the morning (around [id number]) with difficulty getting back to sleep. Patient's reported that the patient has shown a large decrease in PO intake, and the patient endorsed not having much of an appetite recently. Patient's denied any recent noticeable changes to weight for the patient. Patient has been calm and cooperative in the ED at this time. Patient's at bedside is POA and consented to referrals being sent to [facility] and to [facility] d/t [facility] currently being at capacity. Patient is not placed on a pink slip at this time and has not required any physical or chemical restraints in the ED. 2127 Faxed referrals to [facility] and [facility]. 2128 Called [facility] and spoke with Meredith, notified her of referral and provided information. 2132 Called [facility] and spoke with Radha, notified her of referral. 2136 Updated patient and patient's at bedside on referral status. 2144 Faxed negative COVID test result to [facility] and [facility]. 2204 Kaylen with [facility] called with additional questions. All questions answered. Kaylen reported that she will staff this patient with the physician and will call senior mortgage underwriter back with a decision. 2211 (more content not included)...[facility] EDNURSPt [facility] ed with . Per , pt was discharged fro [facility] last Wednesday after spending 26 days there. Wednesday night started to have severe hallucinations, crying uncontrollably, seeing relatives and speaking to them. Was told to return to ED for [facility] evaluation again. Pt alert and oriented x4 in triage, denies SI/HI.Veterans Health AdministrationPROVon 45-79-7406DZSXUXWoosxgn of Present Illness Chief Complaint Patient presents with Psychiatric Evaluation Initial evaluation completed by Dr. Clayton at 9:33. Donnie Bullock is a 77 y/o female presenting to the ED with c/o psychiatric evaluation. Pt's states that pt has been having hallucinations over the past 3-4 days. Pt's states that pt was seeing family members and was uncontrollably crying. Pt's reports that pt was constantly moving, and could not sit down. Pt also claims to have pain the neck. Pt denies cp, abdominal pain, dysuria, suicidal thoughts, and homicidal thoughts. History provided by: Spouse and patient [place] Coma Scale Score: 15 History Past Medical History: Diagnosis Date Neurocognitive disorder with Lewy bodies (CMS/HCC) Parkinson disease (CMS/HCC) Paroxysmal supraventricular tachycardia Personal history of COVID-19 Slow transit constipation Visual hallucinations History reviewed. No pertinent surgical history. No family history on file. Social History Tobacco Use Smoking status: Never Smokeless tobacco: Never Substance Use Topics Alcohol use: Not on file Drug use: Never Review of Systems Review of Systems Cardiovascular: Negative for chest pain. Gastrointestinal: Negative for abdominal pain. Genitourinary: Negative for dysuria. Musculoskeletal: Positive for neck pain. Psychiatric/Behavioral: Positive for hallucinations. Negative for suicidal ideas. The patient is hyperactive. Pt denies homicidal thoughts Physical Exam ED Triage Vitals [07/10/24 1754] Temp Heart Rate Resp BP 36.7 ???C (98.1 ???F) 80 16 121/52 SpO2 Temp Source Heart Rate Source Patient Position 98 % Oral -- Sitting BP Location FiO2 (%) Left arm -- Physical Exam Constitutional: Appearance: Normal appearance. Comments: Clinically sober HENT: Head: Normocephalic and atraumatic. Eyes: Conjunctiva/sclera: Conjunctivae normal. Cardiovascular: Rate and Rhythm: Normal rate and regular rhythm. Pulses: Normal pulses. Heart sounds: Normal heart sounds. Pulmonary: Effort: Pulmonary effort is normal. Breath sounds: Normal breath sounds. Abdominal: General: Abdomen is flat. Palpations: Abdomen is soft. Musculoskeletal: General: Normal range of motion. Cervical back: Normal range of motion and neck supple. Skin: General: Skin is warm and dry. Neurological: General: No focal deficit present. Mental Status: She is alert and oriented to person, place, and time. Psychiatric: Behavior: Behavior is cooperative. Thought Content: Thought content does not include homicidal or suicidal ideation. Procedures ED Course & MDM Diagnoses as of 07/11/24 0123 Psychiatric complaint Hallucinations Medical Decision Making I, Yoly Cuevasrubi scribe, documented on behalf of Dr. Clayton. I, Reyes Sadiq scribe, documented on behalf of Dr. Clayton. Chief complaint of psychiatric evaluation Differential Diagnosis includes but is not limited to acute cyanosis, dementia, cooperative,UTI, and depression. Plan of Care: POCT Sars-CoV-2 antigen, Salicylate level, BMP, TSH, Ethanol, Acetaminophen level, CBC and differential, toxicology panel urine, urinalysis, ECG 12 lead. Patient remains in no distress upon reevaluation. in agreement with plan for placement. (23:24) Accepted by [facility] in [place] for inpatient psychiatric my Dr. Elvis Forde. Transfer to this other facility. Attestation: Provider Statement ANA: Provider Statement 2nd Scribe. By electronically signing this emergency patient record, the Emergency Physician/LEAFLET DISTRIBUTOR/PA-C attests that all entries made into the electronic medical record by the scribe prior to the Physician/LEAFLET DISTRIBUTOR/PA-C signature reflect an accurate accounting of the evaluation and care rendered by that Emergency Physician/LEAFLET DISTRIBUTOR/PA-C. The Emergency Physician/LEAFLET DISTRIBUTOR/PA-C assumes full responsibility for those entries. The Emergency Physician/LEAFLET DISTRIBUTOR/PA-C also attests that any patient testing or treatment that was instituted by nursing staff. Richard Clayton MD 07/11/24 0123NormalUniversWayne HospitalETHANOLon 07-10-2024 ETHANOL (MG/DL) IN SER/PLAS<10Normal<10UnProMedica Fostoria Community Hospital Comment on above:Performed By: #### [id number] #### [facility] ([employer]ER) [address] [place], [place] [address]JNJUSRH CALCULATED (%)<0.01NormalUniversWayne HospitalComment on above:Performed By: #### [id number] #### [facility] ([facility]ER) [address] [place], [place] [address]GPZRXBGDXU LEVELon 26-79-9848YZDASGOOXFC (MG/DL) IN SER/PLAS<2 Low4-29UnProMedica Fostoria Community HospitalComment on above:Performed By: #### [id number] ####[facility] ([facility])[address] [place], [place] [address]GPF UA (CLEAN/CATCH) MICROSCOPIC IF INDICATEon 03-77-0835QREYJUCXB URINENegative NEGATIVENOMS HealthcareBLOOD URINETRACE-INEGATIVENOMS HealthcareClarity (U)CLEAR CLEARNOMS HealthcareColor (U)LT. YELLOWYELLOWNOMS HealthcareGLUCOSE URINE UA NegativeNEGATIVE mg/dLNOMS HealthcareInterpretation and review of laboratory resultsAbnormalNOMS HealthcareKetones Ql (U)TRACEAbnormalNEGATIVE mg/dLNODC HealthcareLeukocyte esterase Test strip Ql (U)NegativeNEGATIVENOMS Healthcare NITRITE URINENegativeNEGATIVENOMS HealthcarepH (U)5.5 [pH]5.0 - 9.0NOMS HealthcarePROTEIN URINENegativeNEG/TRACE mg/dLNOMS HealthcareSPECIFIC GRAVITY URINE1.0151.005 - 1.025NOMS HealthcareURINE MICROSCOPIC INDICATEDYESNOMS HealthcareUROBILINOGEN URINE0.2 EU/dL0.2 - 1.0 EU/dLNOMS HealthcareCLINISYNCNOMS HealthcareTOXICOLOGY PANEL URINEon 55-02-3127MVUPOZPZXSF+METHAMPHETAMINE SCREEN ([place]) IN URINENegativeNormalNegativeUnProMedica Fostoria Community Hospital Comment on above:Performed By: #### [id number] ####[facility] ([facility])[address] [place], [place] [address]FUPAIOKNYJDO PRESENCE IN URINE BY SCREEN METHOD NegativeNormalNegativeUnProMedica Fostoria Community HospitalComment on above: Performed By: #### [id number] ####[facility] ([facility])[address] [place], [place] [address]Bhtlrpnloriyflm Ql (U)NegativeNormalNegativeUnProMedica Fostoria Community HospitalComment on above:Performed By: #### [id number] ####[facility] ([facility])[address] [facility] [place] [place] [address]PNGOAMDGYIP (PRESENCE) IN URINE BY SCREEN METHODPositiveAbnormalNegativeUnProMedica Fostoria Community HospitalComment on above:Performed By: #### [id number] ####[facility] ([facility])[address] [place] [place], [place] [address]Bwedxmy Ql (U)NegativeNormalNegative [facility] HospitalComment on above:Performed By: #### [id number] ####[facility] ([facility])[address] [place] [place] [address]LZLUPIJIU (PRESENCE) IN URINE BY SCREEN METHODNegativeNormalNegativeUnProMedica Fostoria Community HospitalComment on above:Performed By: #### [id number] ####[facility] ([facility])[address] [place] [place] [address]GSHLFPA (PRESENCE) IN URINE BY SCREEN METHODNegativeNormalNegativeUnProMedica Fostoria Community HospitalComment on above: Performed By: #### [id number] ####[facility] ([facility])[address] [facility], [place] [address]YRLFCPTXPIBJE PRESENCE IN URINE BY SCREEN METHODNegative NormalNegativeUnProMedica Fostoria Community HospitalComment on above:Performed By: #### [id number] ####[facility] ([facility])[address] [place] [address] Propoxyphene Screen Ql (U)NegativeNormalNegativeUnProMedica Fostoria Community HospitalComment on above:Performed By: #### [id number] ####[facility] ([facility])[address] [facility] [facility] [facility] [address]CSLGQSEPR ANTIDEPRESSANTS (PRESENCE) IN URINENegativeNormalNegativeUnProMedica Fostoria Community HospitalComment on above:Performed By: #### [id number] ####[facility] ([facility])[address] [facility] [place] [address]OQKwl [phone] (MIU/L) IN SER/PLAS BY DETECTION LIMIT <= 0.05 MIU/L2.59 mIU/LNormal0.34-5.60UnMer[facility] Comment on above:Performed By: #### [id number] ####[facility] ([facility])[address] [place], [place] [address]JDKYFQNIGYyf [phone], TOTAL PRESENCE IN URINENegativeNormalNegativeEast Liverpool City HospitalComment on above: Order Comment: Microscopics not performed on urines with negative chemical reactions unless requested on original order.Performed By: #### [id number] #### [facility] ([facility]) [address] [place], [place] [address]Dcgzwhj (U)ClearNormalClearEast [facility] City Hospital Comment on above:Order Comment: Microscopics not performed on urines with negative chemical reactions unless requested on original order.Performed By: #### [id number] #### [facility] ([facility]) [address] [place], [place] [address]Qznsh (U)Light-YellowNormalColorless, Yellow, Light-Yellow [facility] HospitalComment on above:Order Comment: Microscopics not performed on urines with negative chemical reactions unless requested on original order.Performed By: #### [id number] #### [facility] ([facility]) [address] [place], [place] [address]ZVJAUKR (MG/DL) IN URINENormalNormalNormalUniGood Samaritan HospitalComment on above:Order Comment: Microscopics not performed on urines with negative chemical reactions unless requested on original order. Performed By: #### [id number] #### [facility] ([facility]) [address] [place], [place] [address]PFRTHXEPDF PRESENCE IN URINENegativeNormalNegativeEast Liverpool City HospitalComment on above:Order Comment: Microscopics not performed on urines with negative chemical reactions unless requested on original order. Performed By: #### [id number] #### [facility] ([facility]) [address] [place], [place] [address]Lglphev Ql (U)NegativeNormalNegativeEast [facility] City HospitalComment on above:Order Comment: Microscopics not performed on urines with negative chemical reactions unless requested on original order.Performed By: #### [id number] #### [facility] ([facility]) [address] [place], [place] [address]JXLNUBPPT ESTERASE PRESENCE IN URINE BY TEST STRIPNegativeNormal NegativeUnProMedica Fostoria Community HospitalComment on above:Order Comment: Microscopics not performed on urines with negative chemical reactions unless requested on original order.Performed By: #### [id number] #### [facility] ([facility]) [address] [place], [place] [address]OQPVAUH PRESENCE IN URINENegativeNormalNegativeUnProMedica Fostoria Community HospitalComment on above:Order Comment: Microscopics not performed on urines with negative chemical reactions unless requested on original order. Performed By: #### [id number] #### [facility] ([facility]) [address] [place], [place] [address]xG (U)5.5 [pH]Normal5.0-8.0UnProMedica [facility] Hospital Comment on above:Order Comment: Microscopics not performed on urines with negative chemical reactions unless requested on original order.Performed By: #### [id number] #### [facility] ([facility]) [address] [place], [place] [address]Kidyztt (U) [Mass/Vol]NegativeNormalNegativeUnProMedica Fostoria Community HospitalComment on above:Order Comment: Microscopics not performed on urines with negative chemical reactions unless requested on original order. Performed By: #### [id number] #### [facility] ([facility]) [address] [place], [place] [address]Zerqxxce gravity (U) [Rel density]1.723Cdyklr7.010-1.030 [facility] [place] [facility] HospitalComment on above:Order Comment: Microscopics not performed on urines with negative chemical reactions unless requested on original order.Performed By: #### [id number] #### [facility] ([facility]) [address] [place], [place] [address]FLJWIFWEAOVA (MG/DL) IN URINENormalNormalNormalUniversWayne HospitalComment on above:Order Comment: Microscopics not performed on urines with negative chemical reactions unless requested on original order. Performed By: #### [id number] #### [facility] ([facility]) [address] [place] [place], [place] [address]Kksxn Cultureon [id number] identified Cx Nom (U)No Growth 2 Days PERFORMED BY: [facility] [address] [place] [address] PATHOLOGIST REHABILITATOR DOV JUAREZ M.D.[facility] Physician GroupComment on above: Performed By: #### GS, CSFCCDIFF, CSF TP, CSF PCR PANEL, CSF GLU, AERC #### [facility] [address] [id number] [id number] patient is Moderately Stable - Low risk of patient condition declining or worsening The patient's goals for the shift include to go home with Vimal The clinical goals for the shift include safety Problem: Anxiety Goal: STG-Cooperates with evaluations from physicians/RNs Outcome: Progressing Problem: Confusion Goal: LTG-Interact appropriately within social settings Outcome: Progressing Goal: LTG-Demonstrates an improvement in impulsive behaviors Outcome: Progressing Problem: Depression Goal: LTG-Engage in self care as tolerated Outcome: ProgressingNormalUniversity of [facility]30The patient is Moderately Stable - Low risk of patient condition declining or worsening The patient's goals for the shift include restful sleep The clinical goals for the shift include safety Problem: Anxiety Goal: STG-Cooperates with evaluations from physicians/RNs Outcome: Progressing Problem: Confusion Goal: LTG-Take medications as prescribed Outcome: Progressing Pt is progressing with stated goalsNormalUniGood Samaritan Hospital36on [id number] you. Will take care of this.[facility]94on [id number] Topic: Activity Therapy Group Date: 07/05/2024 Start Time: 0950 End Time: 1130 Facilitators: AYSE JorgeS Department: [facility] Number of Participants: 8 Group Focus: check in, communication, concentration, coping skills, family, feeling awareness/expression, leisure skills, relaxation, reminiscence, and social skills Treatment Modality: Leisure Development and Patient-Centered Therapy Interventions utilized were active listening, leisure development, reminiscence, story telling, and support Purpose: enhance coping skills, express feelings, improve communication skills, and increase insight or knowledge Name: Donnie Bullock Date of : 1955 MR: [id number] Level of Participation: minimal Quality of Participation: attentive and distractible Interactions with others: minimal Mood/Affect: flat Cognition: distracted Progress: Minimal Response: Pt. Minimally participated in the check in group. Pt. Briefly discussed how they are feeling this morning and how they slept last night. Pt. Discussed her picking her up for her scheduled discharge today. Plan: Pt will be encouraged to participate in recreational therapy groups and activities. Patients Problems: Patient Active Problem List Diagnosis Neurocognitive disorder with Lewy bodies (CMS/HCC) Slow transit constipation Visual hallucinations Paroxysmal supraventricular tachycardia Personal history of COVID-19 Mixed hyperlipidemia Pain REM sleep behavior disorder MDD (major depressive disorder)NormalUnProMedica Fostoria Community Hospital94 Attestation signed by MINDY Hunt at 07/05/2024 2:43 PM I agree with the content of this note and have no current revisions. Group Topic: Insight Group Date: 07/05/2024 Start Time: 1015 End Time: 1100 Facilitators: Mindy Weinstein Department: [facility] Number of Participants: 8 Group Focus: anxiety, check in, depression, feeling awareness/expression, and individual meeting Treatment Modality: Individual Therapy and Patient-Centered Therapy Interventions utilized were confrontation, exploration, and support Purpose: express feelings, improve communication skills, and increase insight or knowledge Name: Donnie Bullock Date of : 1955 MR: [id number] Level of Participation: active Quality of Participation: cooperative and initiates communication Interactions with others: asked thoughtful questions Mood/Affect: anxious, appropriate, flat, and tearful Cognition: concrete, confused, and tracking difficulty Plan: patient will be encouraged to participate in future groups Patients Problems: Patient Active Problem List Diagnosis Neurocognitive disorder with Lewy bodies (CMS/HCC) Slow transit constipation Visual hallucinations Paroxysmal supraventricular tachycardia Personal history of COVID-19 Mixed hyperlipidemia Pain REM sleep behavior disorder MDD (major depressive disorder)Mercy HealthDS [id number] Attestation signed by Irma Greco DO at 07/11/2024 6:06 AM I personally saw and examined the patient on the same date of service as resident/fellow. I discussed the findings and therapeutic plan with the resident/fellow. I agree with the documentation, except for any edits/updates below. Teaching Physician's Revisions: Agree with resident documentation and plan Patient Information: Patient Name: Donnie Bullock Admit Date: 06/09/2024 Discharge Date: 07/05/2024 12:17 PM : 1955 Treating Physician: Dr. Greco [facility] Course: The history of present illness was provided by the patient's /POA Vimal Bullock and by the patient, Donnie Bullock. Mrs. Bullock's cognitive decline started in April,. The patient had COVID-19 in April,, she was never hospitalized and/or in the ICU. She was initially getting lost in familiar areas and forgetting words. Then in April, she wandered out of her home barefoot and only wearing a nightgown, during the night. A week after that first incident, she started telling her that he was not her and that there was another Vimal in the home that that does their dishes and laundry. The patient then started saying that there was a lady living with them. She was seen by Dr. Judy Chino, a psychologist in [place]. She then, approximately 1 year ago, began seeing neurology (Dr. Ambrose at [facility]). She also presented to the [facility] for a second opinion in April, (MOCA score at that time was 17/30). The patient previously received services through [facility], this care was reported to be for her major neurocognitive disorder. This week the patient was experiencing worsening hallucinations. On Wednesday (06/05/2024) she reported that she killed her 4 kids and grandchildren. She stated she had their head in bags. The next day (06/06/2024) she was increasingly paranoid and told her that the network professional was coming to take her away and she was packing. She experiences visual hallucinations every day, intermittently. In particular, Mrs. Bullock sees babies suffocating and people living in her house. She also reports seeing dogs as well as squirrels on her husbands shoulder when they watch TV together. Furthermore, patient states when she was hospitalized at [facility] for (depressive symptoms) she saw ribbons in the hospital. She denies auditory hallucinations. Per chart review and history provided today there is also concern for capgras delusions, in the past patient has stated to Mr. Bullock you look like my Vimal, but you are not him. The patient does not become verbally and/or physically aggressive. She is exit seeking and left her house once in recent times. The patient exhibits signs and symptoms of worsening anxiety in recent times. She becomes very restless when anxious and paces around her home. The patient reports she is afraid when she feels lost. She struggles with recent and remote memory. Her memory, attention and concentration fluctuates. Mrs. Bullock has struggled with constipation her entire life. Patient is described as slurring her words at times and having word finding difficulty. No aphasia. Mrs. Bullock experienced worsening rigidity and attends physical therapy 2 times a week. She has an unsteady, shuffling gait with decreased arm swinging. She has orthostatic hypotension. She does not have trouble falling asleep. She is awake 7-8 times during the night, to use the restroom. She has vivid dreams. No dream re-enactment. No physical aggression and/or sleep walking during the night. Patient dresses self and showers self. Once a week daughter in law helps her bathe. (Vimal) does the cooking and cleaning, laundry, finances and medication management. She does not drive (stopped driving in April,). The patient was ambulating with a cane and then did not want to use it anymore. Now she walks for 10 mins at a time on her own. No recent falls. No head trauma. She is able to feed self and usually toilets by self (she was incontinent in the past). Patient/Collateral reports that the patient has low mood, hopelessness, helplessness, anhedonia, hypersomnolence throughout the day and decreased energy. She does not engage in any of her previous hobbies. She is isolated and does not want to go out with friends. She feels she is a burden to her family. No suicidal ideation, plan and intent. No homicidal ideation, plan and intent. The patient is christianity and she enjoys watching mass on TV. She does not like to attend [facility] in person anymore as she does not like to be around people. 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 She comple (more content not included)... [facility] HealthNURSNOTEon [id number] belongings and medication returned to patient and her Vimal. Discharge instructions explained to patient's . Shoe Planner walked patient and her out to the car to ensure safe departure.[facility] HealthNURSNOTEPatient attended breakfast in day room and was cooperative and compliant with morning medications and assessment. Patient denies SI/HI and hallucinations. Patient stated I feel happy because I get to go home with Vimal . Patient observed having a tearful episode while speaking with another staff member. Patient currently sitting in day room socializing with peers and denies any needs at this time. Patient remains pleasant and calm at this time. Safety checks continued.[facility] HealthNURSNOTEPt got around 7 hours of sleep throughout the night. No negative behaviors noted.[facility] HealthRefillon [id number] Donnie Bullock 1955 F Date Provider Department Center 07/05/202430233-ZHBFCECI [facility]one [facility] No family history on file Reason for Visit and Comments: Med Change Request [411][facility]30on 07-04-2024 30The patient is Moderately Stable - Low risk of patient condition declining or worsening The patient's goals for the shift include Get healthy The clinical goals for the shift include safety, comfort Problem: Anxiety Goal: LTG-Decrease worry of fearful thoughts and/or behaviors Outcome: Not Progressing Goal: STG-Cooperates with evaluations from physicians/RNs Outcome: Progressing Problem: Confusion Goal: LTG-Demonstrate controlled behaviors Outcome: Progressing Problem: Psychotic Symptoms Goal: LTG-Take medications as prescribed Outcome: Progressing Goal: LTG-Decrease hallucinations/delusions/paranoia Outcome: Progressing Problem: Fall Risk Goal: LTG-No falls Outcome: Progressing Problem: Hypo/Hypertension Goal: STG-Willingly allowing vitals twice daily Outcome: ProgressingNormalUniverscleveland clinic [facility]30The patient is Moderately Stable - Low risk of patient condition declining or worsening The patient's goals for the shift include to get a good nights rest The clinical goals for the shift include safety and comfort Problem: Anxiety Goal: STG-Cooperates with evaluations from physicians/RNs Outcome: Progressing Problem: Confusion Goal: LTG-Demonstrates an improvement in impulsive behaviors Outcome: Progressing Goal: STG-Engages in social situations appropriately 3 per shift Outcome: Progressing Problem: Depression Goal: LTG-Engage in self care as tolerated Outcome: Progressing Problem: Psychotic Symptoms Goal: STG-Will report less than 12 hallucinations per shift by discharge Outcome: Progressing Problem: Constipation Goal: STG-Willingly takes stool softener medication by discharge Outcome: Progressing Problem: Fall Risk Goal: LTG-No falls Outcome: Progressing Problem: Hypo/Hypertension Goal: STG-Willingly allowing vitals twice daily Outcome: Progressing Problem: Anxiety Goal: STG-Will not pace the floor more than 10 per shift Outcome: Not ProgressingNormalUniversity of [facility]94on 07-04-2024 94Group Topic: Exercise Group Date: 07/04/2024 Start Time: 1344 End Time: 1435 Facilitators: Josi Astorga RUBBER FLAP CUTTER Department: [facility] Number of Participants: 5 Group Focus: affirmation, check in, communication, concentration, coping skills, leisure skills, other exercise, self-awareness, self-esteem, and social skills Treatment Modality: Leisure Development and Patient-Centered Therapy Interventions utilized were active listening, exploration, leisure development, and support Purpose: enhance coping skills, express feelings, improve communication skills, increase insight or knowledge, regain self-worth, and reinforce self-care Name: Donnie Bullock Date of : 1955 MR: [id number] Level of Participation: active Quality of Participation: engaged Interactions with others: gave feedback Mood/Affect: bored Progress: Gaining insight or knowledge Response: Pt. Engaged in exercise group alongside RUBBER FLAP CUTTER and peers. Pt. Participated minimally in group discussions and exercise group. Pt. Refused engagement in group exercise [place] but participated in her chair while watching others. Plan: Pt. Will be encouraged to continue attending therapeutic recreation interventions with the RUBBER FLAP CUTTER and peers while on the unit. Patients Problems: Patient Active Problem List Diagnosis Neurocognitive disorder with Lewy bodies (CMS/HCC) Slow transit constipation Visual hallucinations Paroxysmal supraventricular tachycardia (CMS/HCC) Personal history of COVID-19 Mixed hyperlipidemiaNormalUniversity of [facility]94 Attestation signed by MINDY Hunt at 07/04/2024 3:04 PM I agree with the content of this note and have no current revisions. Group Topic: Communication Skills Group Date: 07/04/2024 Start Time: 1015 End Time: 1100 Facilitators: Mindy Weinstein Department: [facility] Number of Participants: 2 Group Focus: check in, clarity of thought, communication, daily focus, feeling awareness/expression, and individual meeting Treatment Modality: Individual Therapy and Patient-Centered Therapy Interventions utilized were confrontation, orientation, and support Purpose: express feelings and improve communication skills Name: Donnie Bullock Date of : 1955 MR: [id number] Level of Participation: patient was practicing a relaxation technique in her room Plan: patient will be encouraged to participate in future groups Patients Problems: Patient Active Problem List Diagnosis Neurocognitive disorder with Lewy bodies (CMS/HCC) Slow transit constipation Visual hallucinations Paroxysmal supraventricular tachycardia (CMS/HCC) Personal history of COVID-19 Mixed hyperlipidemiaNormalUniversity of [facility]94Group Topic: Activity Therapy Group Date: 07/04/2024 Start Time: 0945 End Time: 1130 Facilitators: JONATHAN Jorge Department: [facility] Number of Participants: 2 Group Focus: check in, clarity of thought, concentration, family, feeling awareness/expression, leisure skills, problem solving, reminiscence, and social skills Treatment Modality: Leisure Development and Patient-Centered Therapy Interventions utilized were active listening, leisure development, problem solving, reminiscence, story telling, and support Purpose: express feelings, improve communication skills, and increase insight or knowledge Name: Donnie Bullock Date of : 1955 MR: [id number] Level of Participation: withdrawn Response: Pt. Did not participate in the group activity. Plan: Pt will be encouraged to participate in recreational therapy groups and activities. Patients Problems: Patient Active Problem List Diagnosis Neurocognitive disorder with Lewy bodies (CMS/HCC) Slow transit constipation Visual hallucinations Paroxysmal supraventricular tachycardia (CMS/HCC) Personal history of COVID-19 Mixed hyperlipidemiaNormalUniversity of [facility] White Medical Center – TempleNURSNOTEon [id number] assessed and in stable condition. Currently resting in bed. Calm and cooperative with staff at this time. Compliant with HS medication pass. Denies further needs at this time.[facility] HealthNURSNOTEPt has been calm and cooperative this shift. Pt has been observed smiling at times. Pt ititially was sad and withdrawn this morning, but has been in a more friendly mood this afternoon. Pt visited and they walked the halls together. Checks for safety continue.[facility] NURSNOTEPt has been calm and cooperative this morning. PT compliant with medications ans assessment. Pt showered and ate breakfast. Pt continue to be pleasantly confused at times, and talks about worries with the babies. Pt has been social this morning talking with another patient and attempting to help her with her walker. Checks for safety continue.[facility] HealthNURSNOTEPt slept 7 hours overnight. No negative behaviors to note overnight. Safety checks maintained.[facility]94on Group Topic: Activity Therapy Group Date: 07/03/2024 Start Time: 1400 End Time: 1500 Facilitators: Miladys Kaplan RUBBER FLAP CUTTER Department: [facility] Number of Participants: 3 Group Focus: communication, family, feeling awareness/expression, leisure skills, reminiscence, and social skills Treatment Modality: Leisure Development and Patient-Centered Therapy Interventions utilized were active listening, leisure development, reminiscence, story telling, and support Purpose: express feelings, improve communication skills, and increase insight or knowledge Name: Donnie Bullock Date of : 1955 MR: [id number] Level of Participation: withdrawn Response: Pt. Did not participate in the group activity. Plan: Pt will be encouraged to participate in recreational therapy groups and activities. Patients Problems: Patient Active Problem List Diagnosis Neurocognitive disorder with Lewy bodies (CMS/HCC) Slow transit constipation Visual hallucinations Paroxysmal supraventricular tachycardia (CMS/HCC) Personal history of COVID-19 Mixed hyperlipidemiaNormalUniversity of [facility]94Group Topic: Activity Therapy Group Date: 07/03/2024 Start Time: 0945 End Time: 1130 Facilitators: JONATHAN Jorge Department: [facility] Number of Participants: 4 Group Focus: check in, communication, concentration, coping skills, depression, family, feeling awareness/expression, leisure skills, reminiscence, and social skills Treatment Modality: Leisure Development and Patient-Centered Therapy Interventions utilized were active listening, leisure development, reminiscence, story telling, and support Purpose: express feelings, improve communication skills, and increase insight or knowledge Name: Donnie Bullock Date of : 1955 MR: [id number] Level of Participation: withdrawn Response: Pt. Did not participate in the group activity. Plan: Pt will be encouraged to participate in recreational therapy groups and activities. Patients Problems: Patient Active Problem List Diagnosis Neurocognitive disorder with Lewy bodies (CMS/HCC) Slow transit constipation Visual hallucinations Paroxysmal supraventricular tachycardia (CMS/HCC) Personal history of COVID-19 Mixed hyperlipidemiaNormalUniversity of Covenant Medical CenterEon [id number] calm and cooperative with assessment and integrative medicine physician. Observed wandering the unit at beginning of the shift. Pt was tearful and states that she missed her and wanted to go home. Pt is currently in bed resting. Safety checks maintained.[facility] HealthNMEMORIAL MEDICAL CENTERNOTEPt has been calm and cooperative. Pt's visited and pt appeared to be in good spirits. Pt continues to be confused and anxious, but does not appear to be wandering this shift. Checks for safety will continue.[facility] HealthNMEMORIAL MEDICAL CENTERNOTEPt has been calm and cooperative this morning. Pt compliant with medications ans assessments. Pt continues to be pleasantly confused, with flat affect. Pt spoke with her this morning. Checks for safety continue.[facility] HealthNMEMORIAL MEDICAL CENTERNOTEPt slept approximately 7 hours during the night. She did get out of bed and come out to the day room one time during the night but was easily redirected back to bed. She is sleeping in bed at this time.[facility]30on [id number] patient is Moderately Unstable - Medium risk of patient condition declining or worsening The patient's goals for the shift include go home The clinical goals for the shift include safety Problem: Anxiety Goal: LTG-Overall frequency and intensity of anxiety symptoms decrease Outcome: Progressing Goal: STG-Cooperates with evaluations from physicians/RNs Outcome: Progressing Problem: Confusion Goal: LTG-Take medications as prescribed Outcome: Progressing Goal: LTG-Interact appropriately within social settings Outcome: Progressing Problem: Depression Goal: LTG-Engage in self care as tolerated Outcome: Progressing Problem: Constipation Goal: STG-Willingly takes stool softener medication by discharge Outcome: ProgressingNormalUniversity of [facility]30Problem: Confusion Goal: STG-Engages in social situations appropriately 3 per shift Outcome: Progressing Problem: Psychotic Symptoms Goal: STG-Will report less than 12 hallucinations per shift by discharge Outcome: Progressing Problem: Constipation Goal: STG-Willingly takes stool softener medication by discharge Outcome: Progressing Problem: Anxiety Goal: STG-Will not pace the floor more than 10 per shift Outcome: Not ProgressingNormalUniversity of [facility]94on 07-02-2024 94Group Topic: Feeling Awareness/Expression Group Date: 07/02/2024 Start Time: 899 End Time: 944 Facilitators: Cydney Peacock OT Department: [facility] Number of Participants: 5 Group Focus: check in, coping skills, daily focus, feeling awareness/expression, self-awareness, self-esteem, and social skills Treatment Modality: Leisure Development, Patient-Centered Therapy, and Solution-Focused Therapy Interventions utilized were exploration, leisure development, patient education, reminiscence, and support Purpose: enhance coping skills, regain self-worth, and reinforce self-care Name: Donnie Bullock Date of : 1955 MR: [id number] Level of Participation: moderate Quality of Participation: drowsy Interactions with others: supportive Mood/Affect: blunted Cognition: processing slowly Progress: Moderate Response: pt engaged and completed both self-esteem guided meditations, RN pulled her out at end of session for phone call Plan: patient will be encouraged to continue to attend groups Patients Problems: Patient Active Problem List Diagnosis Neurocognitive disorder with Lewy bodies (CMS/HCC) Slow transit constipation Visual hallucinations Paroxysmal supraventricular tachycardia (CMS/HCC) Personal history of COVID-19 Mixed hyperlipidemiaNormalUniversity of Baylor [facility] & White Medical Center – TempleNURSNOTEon [id number] was sitting in the day room at the beginning of the shift socializing with peers. Pt stated that she had kind of a bad day because her dad yesterday but there was a beautiful service . She also stated that she didn't know what she was going to do without her dad because she has been for 46 years. Shoe Planner spoke with pt about her and reminded that she had spoken with him earlier today on the phone. Shoe Planner asked pt if she was tired. She said that she was but she didn't know where her room was. Shoe Planner assisted pt to her room and assisted her to bed. She is sleeping at this time. Pt was compliant with medications and assessment. She denied pain, depression, anxiety, SI, HI, or the presence of AVH.[facility] HealthLuisrodger has been awake in dayroom all day. Frequently she will ask to leave or will you open the doors for me--I want to go home. Reorients easily. Food encouraged, as her appetite is poor. Had episode of light-headedness and did drink a boost milkshake after. Just now she asked if I would get her coat for her, I told her she was staying here tonite. Now walking around unit.[facility] HospitalNZARAatient drank all boost with ice cream. Now walking around dayroom.[facility] NURSNOTEPatient put self on floor on hands and knees in dayroom from a chair in front of senior mortgage underwriter. When asked what was wrong, she said I felt light-headed . Assisted per 2 staff members back to chair and VSS. Fluids given and I spoke to patient about eating and drinking more nourishment.[facility] NURSNOTEPatient woke early and found sitting quietly in dayroom. Ate well and then took all her meds. More confused at times but easily reoriented. Now wandering around dayroom.[facility] HealthNURSNOTEPt was assisted back to bed by the senior mortgage underwriter. Pt stated there were some janky squirrels in here running around a little bit ago . The pt also asked please tell me the truth, are there any animals in here that can hurt me? [facility] HospitalPasquale just walked out into the day room and when the senior mortgage underwriter said good morning to her she stated it's not so good, this place is a dump. I can't figure out where in [place] we are . The senior mortgage underwriter reminded the pt that she was in [place] and she then said oh, that's right .[facility] NURSNOTEPt slept for approximately 7 hours during the night. She slept from 2300-now without waking. No negative behaviors noted.[facility]30The patient is Moderately Unstable - Medium risk of patient condition declining or worsening The patient's goals for the shift include rest The clinical goals for the shift include safety Problem: Anxiety Goal: STG-Cooperates with evaluations from physicians/RNs Outcome: Progressing Problem: Confusion Goal: LTG-Take medications as prescribed Outcome: Progressing Goal: LTG-Interact appropriately within social settings Outcome: Progressing Problem: Depression Goal: LTG-Alleviate depressed mood Outcome: Progressing Goal: LTG-Engage in self care as tolerated Outcome: Progressing Problem: Constipation Goal: STG-Willingly takes stool softener medication by discharge Outcome: ProgressingNormalUniGood [facility]aritan [facility]30The patient is Moderately Unstable - Medium risk of patient condition declining or worsening The patient's goals for the shift include bowel movements The clinical goals for the shift include safety/sleep/rapport Problem: Anxiety Goal: STG-Cooperates with evaluations from physicians/RNs Outcome: Progressing Problem: Psychotic Symptoms Goal: LTG-Decrease hallucinations/delusions/paranoia Outcome: Progressing Problem: Constipation Goal: STG-Willingly takes stool softener medication by discharge Outcome: ProgressingMercy Health94on Group Topic: Relaxation Group Date: 07/01/2024 Start Time: 904 End Time: 100 Facilitators: Cydney Peacock OT Department: [facility] Number of Participants: 6 Group Focus: check in, leisure skills, relaxation, self-awareness, and self-esteem Treatment Modality: Leisure Development and Patient-Centered Therapy Interventions utilized were patient education, problem solving, and support Purpose: enhance coping skills, increase insight or knowledge, regain self-worth, and reinforce self-care Name: Donnie Bullock Date of : 1955 MR: [id number] Level of Participation: moderate Quality of Participation: cooperative Interactions with others: supportive Mood/Affect: blunted Cognition: processing slowly Progress: Moderate Response: pt engaged in group quietly and participated as able; answered one question regarding relaxation, but was pleasant throughout Plan: patient will be encouraged to continue to attend groups Patients Problems: Patient Active Problem List Diagnosis Neurocognitive disorder with Lewy bodies (CMS/HCC) Slow transit constipation Visual hallucinations Paroxysmal supraventricular tachycardia (CMS/HCC) Personal history of COVID-19 Mixed hyperlipidemiaNormalUniversity of Baylor Scott & White Medical Center – TempleNURSNOTEon [id number] was out in the day room at the beginning of the shift. She was socializing with peers and intermittently walking around unit. Pt also frequently dozing in chair in day room. Shoe Planner assisted pt to bed. She continues with flat affect. Pt denies anxiety, depression, pain, SI or HI. Pt does continue to state that she sees a real ugly fish hanging around . Pt stated I'm not sure if it's still alive and swimming. I'm going to check on it tomorrow. Pt states that she had a nice talk with her Vimal this evening. She is sleeping in her bed in her room at this time. Pt was compliant with medications and assessment. [facility] HealthSALLY moved patient to 1343 because her roommate was very loud and was talking to herself. But at times during the day she would ask me about all the locked doors. She said I just want to get out of here. Told her this was a locked psych unit and that was to keep her safe. She would say oh that's right. Got lost a couple of times going to her room. Appetite fair. Now sitting quietly in dayroom.[facility] HealthNMEMORIAL MEDICAL CENTERNOTEMoved patient to 1343 so she could restNormalUniversity of [facility] TempleNURSNOTEPatient dozing sitting in a chair in dayroom, hadn't slept in her bed much due to her roommate. Continues with flat affect. Ate about 75 % of breakfast. Participated in rec therapy group. Now walking around unit. Compliant with am meds and pleasant with staff.[facility] HealthNMEMORIAL MEDICAL CENTERAQUILESEPt slept approximately 4 hours on and off throughout the night. She does not understand why there is another person in her room and is walking frequently between her room to look in the door and coming back to the day room. She is referring to her room as my old room . Staff spent a lot of time with Pt during the night explaining the situation and giving reassurance. Pt just came and asked the senior mortgage underwriter if the fish in her room were dangerous. She stated the fish were white, green and gold. Shoe Planner reminded the pt that she was in the hospital and then she realized that I thought I saw fish, but I know they weren't real . The pt is walking in the cronin at this time.[facility] HealthTODDEPt was resting in room at shift change. She spoke with her on the phone this evening. Pt had a large soft BM at the beginning of the shift. Pt was compliant with medications and assessment. Pt denied pain, anxiety, depression, SI, HI or AVH. Pt was sleeping in her bed until she received a roommate. At that time pt got out of bed and came into the day room and slept in a recliner. Once her roommate went to sleep the pt went back to her room to sleep. Pt's roommate woke up about 15 minutes ago and began calling out. So, once again the pt came out to the day room to sleep in a recliner.[facility] HealthThe patient is Moderately Unstable - Medium risk of patient condition declining or worsening The patient's goals for the shift include sleep The clinical goals for the shift include safety/ sleep Problem: Anxiety Goal: STG-Cooperates with evaluations from physicians/RNs Outcome: Progressing Goal: STG-Will not pace the floor more than 10 per shift Outcome: Progressing Problem: Confusion Goal: STG-Engages in social situations appropriately 3 per shift Outcome: Not Progressing Problem: Psychotic Symptoms Goal: STG-Will report less than 12 hallucinations per shift by discharge Outcome: Progressing Problem: Constipation Goal: STG-Regular elimination pattern by discharge Outcome: Not Progressing Goal: STG-Willingly takes stool softener medication by discharge Outcome: Progressing Problem: Fall Risk Goal: STG-Zero falls by discharge Outcome: Progressing Problem: Hypo/Hypertension Goal: STG-Willingly allowing vitals twice daily Outcome: ProgressingNormalUniversity of [facility]94 Group Topic: Activity Therapy Group Date: 06/30/2024 Start Time: 1400 End Time: 1445 Facilitators: AYSE JorgeS Department: [facility] Number of Participants: 3 Group Focus: communication, family, feeling awareness/expression, leisure skills, reminiscence, and social skills Treatment Modality: Leisure Development and Patient-Centered Therapy Interventions utilized were active listening, leisure development, reminiscence, story telling, and support Purpose: express feelings, improve communication skills, and increase insight or knowledge Name: Donnie Bullock Date of : 1955 MR: [id number] Level of Participation: withdrawn Response: Pt. Did not participate in the group activity. Plan: Pt will be encouraged to participate in recreational therapy groups and activities. Patients Problems: Patient Active Problem List Diagnosis Neurocognitive disorder with Lewy bodies (CMS/HCC) Slow transit constipation Visual hallucinations Paroxysmal supraventricular tachycardia (CMS/HCC) Personal history of COVID-19 Mixed hyperlipidemiaNormalUniversity of [facility]94 Attestation signed by MINDY Hunt at 06/30/2024 4:11 PM I agree with the content of this note and have no current revisions. Group Topic: Discharge Planning Group Date: 06/30/2024 Start Time: 1015 End Time: 1100 Facilitators: Mindy Weinstein Department: [facility] Number of Participants: 2 Group Focus: check in, communication, discharge education, individual meeting, and safety plan Treatment Modality: Individual Therapy and Patient-Centered Therapy Interventions utilized were mental fitness, patient education, and support Purpose: explore maladaptive thinking and relapse prevention strategies Name: Donnie Bullock Date of : 1955 MR: [id number] Level of Participation: patient was pacing the halls Plan: patient will be encouraged to participate in future groups Patients Problems: Patient Active Problem List Diagnosis Neurocognitive disorder with Lewy bodies (CMS/HCC) Slow transit constipation Visual hallucinations Paroxysmal supraventricular tachycardia (CMS/HCC) Personal history of COVID-19 Mixed hyperlipidemiaNormalUniversity of [facility]94Group Topic: Activity Therapy Group Date: 06/30/2024 Start Time: 1015 End Time: 1150 Facilitators: JONATHAN Jorge Department: [facility] Number of Participants: 6 Group Focus: art therapy, check in, communication, family, feeling awareness/expression, leisure skills, relaxation, reminiscence, and social skills Treatment Modality: Art Therapy, Leisure Development, and Patient-Centered Therapy Interventions utilized were active listening, leisure development, reminiscence, story telling, and support Purpose: express feelings, improve communication skills, and increase insight or knowledge Name: Donnie Bullock Date of : 1955 MR: [id number] Level of Participation: refused Response: Pt. Refused to participate in the group activity. Plan: Pt will be encouraged to participate in recreational therapy groups and activities. Patients Problems: Patient Active Problem List Diagnosis Neurocognitive disorder with Lewy bodies (CMS/HCC) Slow transit constipation Visual hallucinations Paroxysmal supraventricular tachycardia (CMS/HCC) Personal history of COVID-19 Mixed hyperlipidemiaNormalUniversity of [facility]94Group Topic: Occupational Therapy Group Date: 06/30/2024 Start Time: 929 End Time: 1010 Facilitators: Ana Bryant OT Department: [facility] Number of Participants: 4 Group Focus: affirmation, check in, clarity of thought, communication, community group, coping skills, daily focus, feeling awareness/expression, goals/reality orientation, healthy friendships, leisure skills, music therapy, reality orientation, relaxation, reminiscence, self-awareness, self-esteem, and social skills Treatment Modality: Mindfulness Interventions utilized were active listening, clarification, exploration, group exercise, leisure development, orientation, reminiscence, story telling, and support Purpose: enhance coping skills, express feelings, improve communication skills, increase insight or knowledge, and regain self-worth Name: Donnie Bullock Date of : 1955 MR: [id number] Level of Participation: withdrawn Patients Problems: Patient Active Problem List Diagnosis Neurocognitive disorder with Lewy bodies (CMS/HCC) Slow transit constipation Visual hallucinations Paroxysmal supraventricular tachycardia (CMS/HCC) Personal history of COVID-19 Mixed hyperlipidemiaNormalUniversity of Baylor Scott & White Medical Center – TempleCB WITH AUTO DIFFERENTIALon [id number] (Bld) [#/Vol]0.03 10*3/uLNormal0.00-0.20 [facility] [place] [facility] HospitalComment on above:Performed By: #### [id number] #### [facility] ([facility] [address] [place], [place] [address]Ncurgtako/100 WBC (Bld)0.5 %Normal0.0-1.0UnProMedica Fostoria Community HospitalComment on above:Performed By: #### [id number] #### [facility] ([facility]) [address] [place], [place] [address]Ximgmbycxkc (Bld) [#/Vol]0.02 10*3/uLNormal0.00-0.50UnProMedica Fostoria Community HospitalComment on above:Performed By: #### [id number] #### [facility] ([facility]) [address] [place], [place] [address]Oitkxzlpmhj/100 WBC (Bld)0.4 %Normal0.0-6.0UnProMedica Fostoria Community HospitalComment on above:Performed By: #### [id number] #### [facility] ([facility]) [address] [place], [place] [address]Uhvqfbhdbrp distribution width (RBC) [Ratio]12.4 %Normal 11.5-15.0UnProMedica Fostoria Community HospitalComment on above:Performed By: #### [id number] #### [facility] ([facility] [address] [place], [place] [address]RHTVLUZOBAC MEAN CORPUSCULAR HEMOGLOBIN CONCENTRATION (G/DL) BY HCPHECONJ87.0 g/lKDoeigd69.0-35.0UnProMedica Fostoria Community HospitalComment on above:Performed By: #### [id number] #### [facility] ([facility] [address] [place], [place] [address]Qguxhpejxi (Bld) [Volume fraction]40.9 %Hvhwxf27.0-48.0 [facility] [place] [facility] HospitalComment on above:Performed By: #### [id number] #### [facility] ([facility]) [address] [place] [address]Dtavhqsdeb (Bld) [Mass/Vol]13.5 g/kSOmseje22.0-15.0UnProMedica Fostoria Community HospitalComment on above:Performed By: #### [id number] #### [facility] ([facility]) [address] [place] [address]Grzlotvt granulocytes (Bld) [#/Vol]0.01 10*3/uLNormal0.00-0.20 [facility] [place] [facility] HospitalComment on above:Performed By: #### [id number] #### [facility] ([facility]) [address] [place], [place] [address]Kpwxpref granulocytes/100 WBC (Bld)0.2 %Normal0.0-1.0UnProMedica Fostoria Community HospitalComment on above:Performed By: #### [id number] #### [facility] ([facility]) [address] [place] [address]Tjjrahgdmgt (Bld) [#/Vol]1.05 10*3/uLLow1.20-4.00UnProMedica Fostoria Community HospitalComment on above:Performed By: #### [id number] #### [facility] ([facility]) [address] [place] [address]Klcsktwqlpy/100 WBC (Bld)18.4 %Low20.0-45.0UnProMedica Fostoria Community HospitalComment on above:Performed By: #### [id number] #### [facility] ([facility]) [address] [place] [address]ROJ (RBC) [Entitic mass]29.5 fyJgtxnz62.0-33.0UnProMedica Fostoria Community HospitalComment on above:Performed By: #### [id number] #### [facility] ([facility]) [address] [place], [place] [address]YZF (RBC) [Entitic vol]89.5 tUWzacyp75.0-98.0UnProMedica Fostoria Community HospitalComment on above:Performed By: #### [id number] #### [facility] ([facility]) [address] [place] [address]Byyqvnmjn (Bld) [#/Vol]0.30 10*3/uLNormal0.10-1.00UnProMedica [facility]ostoria Community HospitalComment on above:Performed By: #### [id number] #### [facility] ([facility]) [address] [place] [address]Jdsbbsczv/100 WBC (Bld)5.3 %Normal5.0-12.0UnProMedica Fostoria Community HospitalComment on above:Performed By: #### [id number] #### [facility] ([facility]) [address] [place] [address]Omagoblluel (Bld) [#/Vol]4.30 10*3/uLNormal1.60-7.60UnProMedica Fostoria Community HospitalComment on above:Performed By: #### [id number] #### [facility] ([facility]) [address] [place] [id number]/100 WBC (Bld)75.2 %High40.0-72.0UnProMedica Fostoria Community HospitalComment on above:Performed By: #### [id number] #### [facility] ([facility]) [address] [place] [address]SIXA (PER 100 WBCS) BY AUTOMATED COUNT0.0 %Cubrci2IakxupkrnmProMedica Fostoria Community HospitalComment on above:Performed By: #### [id number] #### [facility] ([facility]) [address] [place] [address]PDYGYGOUG (10*3/UL) IN BLOOD AUTOMATED ELVZS758 10*3/uLNormal 150-400UnProMedica Fostoria Community HospitalComment on above:Performed By: #### [id number] #### [facility] ([facility]) [address] [place] [address]GCJ (Bld) [#/Vol]4.57 10*6/uLNormal3.80-5.00UnProMedica Fostoria Community HospitalComment on above:Performed By: #### [id number] #### [facility] ([facility]) [address] [place] [address]ZLK (Bld) [#/Vol]5.71 10*3/uLNormal4.00-10.60UnProMedica Fostoria Community HospitalComment on above:Performed By: #### [id number] #### [facility] ([facility]) [address] [place] [address]EQIKVLMFLHCKS METABOLIC PANELon [id number] [Mass/Vol]4.4 g/dLNormal3.5-5.7UnProMedica Fostoria Community HospitalComment on above:Performed By: #### [id number] #### [facility] ([facility]) [address] [place] [address]YCF [Catalytic activity/Vol]48 U/DSucqzx53-827TekiduemsyProMedica Fostoria Community HospitalComment on above:Performed By: #### [id number] #### [facility] ([facility]) [address] [place] [address]FTU [Catalytic activity/Vol]22 U/LNormal7-52UnProMedica Fostoria Community HospitalComment on above:Performed By: #### [id number] #### [facility] ([facility]) [address] [place] [address]Lxhce gap [Moles/Vol]10 mmol/LNormal7-20UnProMedica Fostoria Community HospitalComment on above:Performed By: #### [id number] #### [facility] ([facility]) [address], [place] [address]JRU [Catalytic activity/Vol]33 U/TNhtncs68-13NicpvhnemxProMedica Fostoria Community HospitalComment on above:Performed By: #### [id number] #### [facility] ([facility]) [address] [place] [address]Syfspcovt [Mass/Vol]0.5 mg/dLNormal0.3-1.0UnProMedica Fostoria Community HospitalComment on above:Performed By: #### [id number] #### [facility] ([facility]) [address] [place] [address]Hcnbeeg [Mass/Vol]9.6 mg/dLNormal8.6-10.3UnProMedica Fostoria Community HospitalComment on above:Performed By: #### [id number] #### [facility] ([facility]) [address] [place] [address]Rrjfcoep [Moles/Vol]106 mmol/DXihjzi01-562VvatzkuofhProMedica Fostoria Community HospitalComment on above:Performed By: #### [id number] #### [facility] ([facility]) [address] [place] [address]QA8 [Moles/Vol]28 mmol/UCluobk70-11QfaeezhjjtProMedica Fostoria Community HospitalComment on above:Performed By: #### [id number] #### [facility] ([facility]) [address] [place] [address]Gmvpacmavr [Mass/Vol]0.59 mg/dLLow0.60-1.20UnProMedica Fostoria Community HospitalComment on above:Performed By: #### [id number] #### [facility] ([facility]) [address] [place] [address]LHNEISQQRQ FILTRATION RATE ML/MIN/1.73 SQ M.GWPVSCEDH22.9 mL/min/1.73m*2Normal>60.0UnProMedica Fostoria Community HospitalComment on above: Result Comment: The [facility]???s estimated glomerular filtration rate (eGFR) will no longer include consideration of race in its calculation. The National Kid[employer] Foundation???s eGFR Task Force developed new recommendations for the estimation of the glomerular filtration rate in the [place] They recommend immediate implementation of the new equation refit without the race variable in all laboratories because the calculation does not include race. In addition to not including race in the calculation and reporting, it included diversity in its development, and has acceptable performance characteristics and potential consequences that do not disproportionately affect anyone group of individuals.Performed By: #### [id number] #### [facility] ([facility]) [address] [place] [address]Aouyxfr [Mass/Vol]121 mg/aLGant40-754WticwixshuProMedica Fostoria Community HospitalComment on above:Performed By: #### [id number] #### [facility] ([facility]) [address] [place] [address]Govgxsdup [Moles/Vol]4.0 mmol/LNormal3.5-5.1UnProMedica Fostoria Community HospitalComment on above:Performed By: #### [id number] #### [facility] ([facility]) [address], [place] [address]Whkwami [Mass/Vol]7.0 g/dLNormal6.0-8.3UnProMedica Fostoria Community HospitalComment on above:Performed By: #### [id number] #### [facility] ([facility]) [address] [place] [address]Anuref [Moles/Vol]140 mmol/KHryhgh413-339ZpitqkkuftProMedica Fostoria Community HospitalComment on above:Performed By: #### [id number] #### [facility] ([facility]) [address], [place] [address]Tcem nitrogen [Mass/Vol]15 mg/dLNormal7-25UnProMedica Fostoria Community HospitalComment on above:Performed By: #### [id number] #### [facility] ([facility]) [address] [place] [address]YALN NITROGEN/CREATININE (MASS RATIO) IN SER/PLAS25.4Normal [facility] HospitalComment on above:Performed By: #### [id number] #### [facility] ([facility]) [address], [place] [address]UIRMUZTQxu [id number] pleasant and cooperative with staff and peers. Patient out for meals and sit aloof in the mileu. Patient had xray today and was cooperative with transport and procedure. Patient did not eat much of her meals today. Patient continues to complain of stomach pain and the lack to have a BM. Dr De Jesus ordered enema for patient and increased Lactulose 20 30mg 3 times daily. Patient's came to visit. He was spoken to about the results of the xray and the need for enema and stated he would raul to be present as he has helped her with these at home in the past. Patient was cooperative with enema and did have some results which have been documented. Patient was tearful after visitation but calmed down. Patient at this time is resting quietly in her bed and remains safe with every 15 minute checks per policy.[facility] NURSNOTEPt slept approximately 5 hours last night. Pt was noted to be looking for children in her room, but was then accepting of being in the hospital and sat back down in a chair in her room. Pt currently resting in bed again at this time. Safety maintained.[facility]30on 06-29-2024 30The patient is Moderately Stable - Low risk of patient condition declining or worsening The patient's goals for the shift include to get through the day The clinical goals for the shift include safety/sleep Problem: Anxiety Goal: STG-Cooperates with evaluations from physicians/RNs Outcome: Progressing Problem: Depression Goal: LTG-Engage in self care as tolerated Outcome: Progressing Problem: Psychotic Symptoms Goal: LTG-Take medications as prescribed Outcome: Progressing Goal: LTG-Decrease hallucinations/delusions/paranoia Outcome: ProgressingNormalUniversity of [facility]94on Group Topic: Activity Therapy Group Date: 06/29/2024 Start Time: 1400 End Time: 1600 Facilitators: JONATHAN Jorge Department: [facility] Number of Participants: 6 Group Focus: communication, concentration, feeling awareness/expression, leisure skills, problem solving, and social skills Treatment Modality: Leisure Development and Patient-Centered Therapy Interventions utilized were active listening, leisure development, problem solving, and support Purpose: express feelings, improve communication skills, and increase insight or knowledge Name: Donnie Bullock Date of : 1955 MR: [id number] Level of Participation: withdrawn Response: Pt. Did not participate in the group activity. Plan: Pt will be encouraged to participate in recreational therapy groups and activities. Patients Problems: Patient Active Problem List Diagnosis Neurocognitive disorder with Lewy bodies (CMS/HCC) Slow transit constipation Visual hallucinations Paroxysmal supraventricular tachycardia (CMS/HCC) Personal history of COVID-19 Mixed hyperlipidemiaNormalUniversity of [facility]94Group Topic: Activity Therapy Group Date: 06/29/2024 Start Time: 1000 End Time: 1150 Facilitators: JONATHAN Jorge Department: [facility] Number of Participants: 5 Group Focus: art therapy, check in, communication, concentration, family, feeling awareness/expression, leisure skills, relaxation, reminiscence, and social skills Treatment Modality: Art Therapy, Leisure Development, and Patient-Centered Therapy Interventions utilized were active listening, leisure development, reminiscence, story telling, and support Purpose: express feelings, improve communication skills, and increase insight or knowledge Name: Donnie Bullock Date of : 1955 MR: [id number] Level of Participation: refused Response: Pt. Refused to participate in the group activity. Plan: Pt will be encouraged to participate in recreational therapy groups and activities. Patients Problems: Patient Active Problem List Diagnosis Neurocognitive disorder with Lewy bodies (CMS/HCC) Slow transit constipation Visual hallucinations Paroxysmal supraventricular tachycardia (CMS/HCC) Personal history of COVID-19 Mixed hyperlipidemiaNormalUniversity of Baylor Scott & White Medical Center – TempleNURSNOTEon [id number] resting in room at shift change. Pt cooperative with assessment and hs med pass. Pt denied si hi and hallucinations. Pt denied pain and sob. Pt stated that her day went ok . Pt brought up that she was concerned about the children but when questioned on it, she wouldn't elaborate. Pt has not yet had a bowel movement, but has active bowel sounds, and is passing flatus. Pt reported her depression and anxiety a 6 this evening. Pt polietly declined an evening snack. Pt resting in her assigned bed at this time. Safety maintained.[facility] HealthNURSNOTEPatient spent some time in the day room and sat with senior mortgage underwriter. Patient was observed reaching at the floor trying to grab non-existent objects and also looked into the hallway and stated those kids are sitting outside in the middle of June . Patient observed talking out loud as if she was having a conversation with another person; senior mortgage underwriter asked patient who she was talking to and what she was seeing and patient responded stating I don't remember . Patient calm and pleasant, visited with and is now attending dinner. Patient denies any needs at this time. Safety checks continued.[facility] HealthNURSNOTEPatient spending time in her room. Patient cooperative and compliant with morning assessment and medications. Patient denies SI/HI and hallucinations. Patient stated I think that the weather is making me feel a little anxious . Patient also stated my mood is fine, my goal is to get through the day and to accomplish something kind before I leave here . No BM so far today, but patient reports she is passing gas. Patient pleasant and calm, denies any needs at this time. Safety checks continued.[facility]NURSNOTE Pt slept approximately 8.5 hours last night. Pt woke up briefly this morning, and reportedly didn't sleep too well. Pt stated, When I wake up and don't know where I am it makes me nervous. Pt provided with emotional support and a warm blanket, and returned to her room to lay back down. PT safety maintained.[id number]: Confusion Goal: LTG-Take medications as prescribed Outcome: Progressing Problem: Depression Goal: LTG-Engage in self care as tolerated Outcome: Progressing Problem: Psychotic Symptoms Goal: LTG-Decrease hallucinations/delusions/paranoia Outcome: Progressing Problem: Fall Risk Goal: LTG-No falls Outcome: ProgressingNormalUniversity of [facility]30The patient is Moderately Stable - Low risk of patient condition declining or worsening The patient's goals for the shift include pain relief The clinical goals for the shift include safety, comfort Problem: Anxiety Goal: STG-Cooperates with evaluations from physicians/RNs Outcome: Progressing Problem: Confusion Goal: STG-Engages in social situations appropriately 3 per shift Outcome: Progressing Problem: Constipation Goal: STG-Regular elimination pattern by discharge Outcome: Not Progressing Goal: STG-Willingly takes stool softener medication by discharge Outcome: Progressing Problem: Fall Risk Goal: STG-Zero falls by discharge Outcome: Progressing Problem: Hypo/Hypertension Goal: STG-Willingly allowing vitals twice daily Outcome: ProgressingNormalUniGood Samaritan Hospital94on Group Topic: Activity Therapy Group Date: 06/28/2024 Start Time: 1400 End Time: 1600 Facilitators: JONATHAN Jorge Department: [facility] Number of Participants: 8 Group Focus: concentration, feeling awareness/expression, leisure skills, problem solving, reminiscence, and social skills Treatment Modality: Leisure Development and Patient-Centered Therapy Interventions utilized were active listening, leisure development, problem solving, reminiscence, story telling, and support Purpose: express feelings, improve communication skills, and increase insight or knowledge Name: Donnie Bullock Date of : 1955 MR: [id number] Level of Participation: minimal Quality of Participation: distractible Interactions with others: minimal Mood/Affect: closed / guarded Cognition: distracted Progress: Minimal Response: Pt. Declined to participate in the ring toss game with peers and staff, however with encouragement from others, pt. Agreed to play one round. Pt. Left the group after their turn and did not return. Plan: Pt will be encouraged to participate in recreational therapy groups and activities. Patients Problems: Patient Active Problem List Diagnosis Neurocognitive disorder with Lewy bodies (CMS/HCC) Slow transit constipation Visual hallucinations Paroxysmal supraventricular tachycardia (CMS/HCC) Personal history of COVID-19 Mixed hyperlipidemiaNormalUniversity of [facility]94Group Topic: Activity Therapy Group Date: 06/28/2024 Start Time: 0950 End Time: 1150 Facilitators: JONATHAN Jorge Department: [facility] Number of Participants: 6 Group Focus: check in, communication, concentration, coping skills, family, feeling awareness/expression, leisure skills, problem solving, relaxation, reminiscence, and social skills Treatment Modality: Leisure Development and Patient-Centered Therapy Interventions utilized were active listening, leisure development, problem solving, reminiscence, story telling, and support Purpose: enhance coping skills, express feelings, improve communication skills, and increase insight or knowledge Name: Donnie Bullock Date of : 1955 MR: [id number] Level of Participation: refused Response: Pt. Refused to participate in the group activity. Plan: Pt will be encouraged to participate in recreational therapy groups and activities. Patients Problems: Patient Active Problem List Diagnosis Neurocognitive disorder with Lewy bodies (CMS/HCC) Slow transit constipation Visual hallucinations Paroxysmal supraventricular tachycardia (CMS/HCC) Personal history of COVID-19 Mixed hyperlipidemiaNormalUniversity of Baylor Scott & [facility] TempleNURSNOTEon [id number] walking around the unit at shift change. Pt cooperative with assessment and hs med pass. Pt seems more depressed this evening, and made significantly less eye contact then previous evenings. Pt denied si hi and a/v hallucinations. Pt denied pain and sob. Pt rated her depression a 6 and her anxiety a 5. Pt reportedly had a good visit with her , and spoke to him briefly on the phone this evening. Pt had an evening snack and sat quietly around peers. Pt has not had a successful bowel movement as of now, but did drink her scheduled lactulose this evening. Pt now resting in her assigned bed for the evening. No behaviors or issues to report. Safety checks maintained.[facility]NURSNOTEPatient A&Ox1, pleasant and cooperative with dispenser operator, medication administration and ADLs. She denies SI/HI/AVH, although she mentioned the babies on her knees needing to be put to bed, and pointed to the floor on at least 2 occassions for RN to watch out and not to step in the puddle. She rated her depression and anxitey a 8/10 this morning, with a decrease to 7/10 and 6/10 respectively this evening attributed to a therapeutic massage per staff and visit with her . She reported her mood this evening as a little sad and thinks this is because she misses her family. The patient made significantly less eye contact on this date, but was noted to make a couple jokes with RN. She ate 2/3rds of her meals today, and spent at least 50% of the day out in the milieu usually isolated to self. No BM noted this shift, bowel sounds remain active, and patient reports she is passing gas. Safety checks maintained per unit policy.[facility] HealthNMEMORIAL MEDICAL CENTERNOTEPt slept approximately 6.5 hours last night, per the nightly sleep sheet. Pt wandered out of her room around 0600, and was hallucinating children, as she was attempting to tell them to follow me, right this way kids. Pt has otherwise been sitting and standing quietly in the day room. Safety maintained.[facility] HospitalNMEMORIAL MEDICAL CENTERNOTEPt woke up and came out of her room. Pt endorsed pain in her right elbow. Pt given prn tylenol and emotional support. Pt currently sitting quietly in the day room. Pt denies any other needs at this time.[facility]30The patient is Moderately Stable - Low risk of patient condition declining or worsening The patient's goals for the shift include take care of the children The clinical goals for the shift include safety, improved mood Problem: Anxiety Goal: STG-Cooperates with evaluations from physicians/RNs Outcome: Progressing Problem: Confusion Goal: STG-Engages in social situations appropriately 3 per shift Outcome: Progressing Problem: Psychotic Symptoms Goal: STG-Will report less than 12 hallucinations per shift by discharge Outcome: Progressing Problem: Constipation Goal: STG-Willingly takes stool softener medication by discharge Outcome: Progressing Problem: Fall Risk Goal: STG-Zero falls by discharge Outcome: Progressing Problem: Hypo/Hypertension Goal: STG-Willingly allowing vitals twice daily Outcome: ProgressingNormalUniversWayne Hospital30The patient is Moderately Stable - Low risk of patient condition declining or worsening The patient's goals for the shift include to get some rest The clinical goals for the shift include safety and rest Problem: Anxiety Goal: STG-Cooperates with evaluations from physicians/RNs Outcome: Progressing Goal: STG-Will not pace the floor more than 10 per shift Outcome: Progressing Problem: Confusion Goal: LTG-Demonstrate controlled behaviors Outcome: Progressing Goal: STG-Engages in social situations appropriately 3 per shift Outcome: Progressing Problem: Depression Goal: LTG-Engage in self care as tolerated Outcome: Progressing Problem: Psychotic Symptoms Goal: LTG-Take medications as prescribed Outcome: Progressing Goal: STG-Will report less than 12 hallucinations per shift by discharge Outcome: Progressing Problem: Constipation Goal: STG-Willingly takes stool softener medication by discharge Outcome: Progressing Problem: Fall Risk Goal: LTG-No falls Outcome: Progressing Problem: Hypo/Hypertension Goal: STG-Willingly allowing vitals twice daily Outcome: ProgressingNormalUniGood Samaritan Hospital94 Group Topic: Activity Therapy Group Date: 06/27/2024 Start Time: 1400 End Time: 1600 Facilitators: JONATHAN Jorge Department: [facility] Number of Participants: 8 Group Focus: communication, concentration, family, feeling awareness/expression, leisure skills, problem solving, reminiscence, and social skills Treatment Modality: Leisure Development and Patient-Centered Therapy Interventions utilized were active listening, leisure development, problem solving, reminiscence, story telling, and support Purpose: express feelings, improve communication skills, and increase insight or knowledge Name: Donnie Bullock Date of : 1955 MR: [id number] Level of Participation: moderate Quality of Participation: cooperative and initiates communication Interactions with others: gave feedback Mood/Affect: flat Cognition: loose Progress: Moderate Response: Pt. Declined to participate in the Ring Toss game. After visiting with her , pt. Joined the group table and socialized with peers and staff. Pt. Engaged in discussing how she met her , being for 46 years now, and having 6 kids. Plan: Pt will be encouraged to continue to participate in recreational therapy groups and activities. Patients Problems: Patient Active Problem List Diagnosis Neurocognitive disorder with Lewy bodies (CMS/HCC) Slow transit constipation Visual hallucinations Paroxysmal supraventricular tachycardia (CMS/HCC) Personal history of COVID-19 Mixed hyperlipidemiaNormalUniversity of [facility]94Group Topic: Activity Therapy Group Date: 06/27/2024 Start Time: 40 End Time: 1140 Facilitators: AYSE JorgeS Department: [facility] Number of Participants: 5 Group Focus: art therapy, check in, communication, concentration, family, feeling awareness/expression, leisure skills, problem solving, relaxation, reminiscence, and social skills Treatment Modality: Art Therapy, Leisure Development, and Patient-Centered Therapy Interventions utilized were active listening, leisure development, reminiscence, story telling, and support Purpose: express feelings, improve communication skills, and increase insight or knowledge Name: Donnie Bullock Date of : 1955 MR: [id number] Level of Participation: moderate Quality of Participation: cooperative and distractible Interactions with others: gave feedback Mood/Affect: flat Cognition: distracted Progress: Moderate Response: Pt. Participated in the check in group. Pt. Discussed how they are feeling this morning and how they slept last night. Pt. Joined peers at the group table and participated in the banner coloring project. With the encouragement from the group, pt. colored 2 letters in the banner. Pt. Left the group table periodically during this time, returning a shortly after leaving. Plan: Pt will be encouraged to continue to participate in recreational therapy groups and activities. Patients Problems: Patient Active Problem List Diagnosis Neurocognitive disorder with Lewy bodies (CMS/HCC) Slow transit constipation Visual hallucinations Paroxysmal supraventricular tachycardia (CMS/HCC) Personal history of COVID-19 Mixed hyperlipidemiaNormalUniversity of [facility]94Group Topic: Insight Group Date: 06/27/2024 Start Time: 1015 End Time: 1100 Facilitators: MINDY Hunt Department: [facility] Number of Participants: 3 Group Focus: check in, clarity of thought, feeling awareness/expression, and self-awareness Treatment Modality: Individual Therapy, Interpersonal Therapy, and Psychodynamic Psychotherapy Interventions utilized were active listening, clarification, confrontation, exploration, orientation, reality testing, and support Purpose: express feelings Name: Donnie Bullock Date of : 1955 MR: [id number] Level of Participation: Pt was talking with staff Plan: patient will be encouraged to participate in future groups Patients Problems: Patient Active Problem List Diagnosis Neurocognitive disorder with Lewy bodies (CMS/HCC) Slow transit constipation Visual hallucinations Paroxysmal supraventricular tachycardia (CMS/HCC) Personal history of COVID-19 Mixed hyperlipidemiaNormalUniversity of [facility] – TempleNURSNOTEon [id number] up ad lynne on unit at shift change. Pt pleasant and cooperative with assessment and hs med pass. Pt affect remains flat, but pt appeared to brighten on approach. Pt denied si hi and hallucinations. Pt denied pain and sob. Pt stated that she felt better, after seeing my Vimal today. Pt then stated that, We thought there was some work for us to do here, but I can't find any, and I don't want to drive at night so I guess I'll stay here. Pt was offered to sit with peers and play cards, but she politely declined. Pt had an evening snack before going to bed for the evening. Pt resting in her assigned bed at this time. No behaviors or issues to report. Safety checks maintained.Normal [facility] HospitalNURSNOTEPatient alert and oriented x2-4, pleasant and cooperative with staff development coordinator rn, medication administration and ADLs. rated her depression a 4/10 anxiety a 3/10 this morning, and both a 2/10 this evening, attributing the reduction to seeing her and moments of saundra skies outside her window. She denies SI/HI/AVH. Throughout the day she was noted to be concerned about all the children in here that need taken care of she stated this morning that they were in her room playing, and when RN accompanied her to the room she stated they must have just left, I could hear them in here. She spent at least 30% of the day out in the milieu, at times interacting with peers. The patient at more that 50% of her meals this shift. Safety checks maintained per unit policy.Normal [facility] HospitalNURSNOTEPt has slept for 6 hours overnight. No negative behaviors to note. Pt is currently in room sitting on the side of bed quietly. Safety checks maintained. [id number]: Anxiety Goal: LTG-Overall frequency and intensity of anxiety symptoms decrease Outcome: Progressing Goal: STG-Cooperates with evaluations from physicians/RNs Outcome: Progressing Problem: Confusion Goal: LTG-Take medications as prescribed Outcome: Progressing Goal: LTG-Demonstrate an improvement in intrusive behaviors Outcome: Progressing The patient is Moderately Stable - Low risk of patient condition declining or worsening The patient's goals for the shift include participate with these people (referring to the other pts) The clinical goals for the shift include maintain safetyNormalUniversity of [facility] [id number] Topic: Activity Therapy Group Date: 06/26/2024 Start Time: 1400 End Time: 1530 Facilitators: JONATHAN Jorge Department: [facility] Number of Participants: 6 Group Focus: communication, concentration, feeling awareness/expression, leisure skills, problem solving, reminiscence, and social skills Treatment Modality: Leisure Development and Patient-Centered Therapy Interventions utilized were active listening, group exercise, leisure development, reminiscence, story telling, and support Purpose: enhance coping skills, express feelings, and improve communication skills Name: Donnie Bullock Date of : 1955 MR: [id number] Level of Participation: moderate Quality of Participation: attentive and cooperative Interactions with others: gave feedback Mood/Affect: closed / guarded Cognition: loose Progress: Moderate Response: Pt. Initially declined the invitation to participate in the ring toss game with peers, however did agree to play one round. Pt. Was observed smiling while playing the game, as well as when she was watching from the side. Plan: Pt will be encouraged to continue to participate in recreational therapy groups and activities. Patients Problems: Patient Active Problem List Diagnosis Neurocognitive disorder with Lewy bodies (CMS/HCC) Slow transit constipation Visual hallucinations Paroxysmal supraventricular tachycardia (CMS/HCC) Personal history of COVID-19 Mixed hyperlipidemiaNormalUniversity of [facility]94Group Topic: Process Group Date: 06/26/2024 Start Time: 1015 End Time: 1100 Facilitators: BRIT Thakkar Department: [facility] Number of Participants: 5 Group Focus: check in, coping skills, and reminiscence During group RT was present and she was also engaging with patients. Interventions utilized were active listening, exploration, reminiscence, and support Purpose: enhance coping skills and express feelings Name: Donnie Bullock Date of : 1955 MR: [id number] Level of Participation: minimal Quality of Participation: exacerbation of symptoms Interactions with others: intrusive Mood/Affect: blunted Cognition: confused Plan: patient will be encouraged to engage in groups Patients Problems: Patient Active Problem List Diagnosis Neurocognitive disorder with Lewy bodies (CMS/HCC) Slow transit constipation Visual hallucinations Paroxysmal supraventricular tachycardia (CMS/HCC) Personal history of COVID-19NormalUniversity of [facility]94Group Topic: Activity Therapy Group Date: 06/26/2024 Start Time: 0945 End Time: 1135 Facilitators: JONATHAN Jorge Department: [facility] Number of Participants: 5 Group Focus: check in, communication, family, feeling awareness/expression, leisure skills, reminiscence, and social skills Treatment Modality: Leisure Development and Patient-Centered Therapy Interventions utilized were active listening, leisure development, reminiscence, story telling, and support Purpose: express feelings, improve communication skills, and increase insight or knowledge Name: Donnie Bullock Date of : 1955 MR: [id number] Level of Participation: withdrawn Response: Pt. Did not participate in the group activity, however briefly spoke with peers and staff when passing the group table. Plan: Pt will be encouraged to participate in recreational therapy groups and activities. Patients Problems: Patient Active Problem List Diagnosis Neurocognitive disorder with Lewy bodies (CMS/HCC) Slow transit constipation Visual hallucinations Paroxysmal supraventricular tachycardia (CMS/HCC) Personal history of COVID-19NormalUniversity of [facility] TempleNURSNOTEon [id number] alert calm and pleasant. Pt sitting in room alone. Pt appears depressed but mood brightened with approach. Pt became tearful during conversation regarding her because she misses him. Pt rated anxiety at 7 and depression at 8 with 10 being the worst. Pt denies SI/HI and AVH. Safety checks maintained. [facility]NURSNOTEPatient denies SI, HI, and AVH. Patient complained of intermittent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 Participation: refused Response: Pt. Refused to participate in the group activity. Plan: Pt will be encouraged to participate in recreational therapy groups and activities. Patients Problems: Patient Active Problem List Diagnosis Neurocognitive disorder with Lewy bodies (CMS/HCC) Slow transit constipation Visual hallucinations Paroxysmal supraventricular tachycardia (CMS/HCC) Personal history of COVID-19NormalUniversity of [facility]94Group Topic: Activity Therapy Group Date: 06/22/2024 Start Time: 1015 End Time: 1145 Facilitators: JONATHAN Jorge Department: [facility] Number of Participants: 3 Group Focus: check in, clarity of thought, communication, concentration, feeling awareness/expression, leisure skills, problem solving, reminiscence, and social skills Treatment Modality: Leisure Development and Patient-Centered Therapy Interventions utilized were active listening, leisure development, problem solving, reminiscence, story telling, and support Purpose: express feelings, improve communication skills, and increase insight or knowledge Name: Donnie Bullock Date of : 1955 MR: [id number] Level of Participation: withdrawn Response: Pt. Did not participate in the group activity. Plan: Pt will be encouraged to participate in recreational therapy groups and activities. Patients Problems: Patient Active Problem List Diagnosis Neurocognitive disorder with Lewy bodies (CMS/HCC) Slow transit constipation Visual hallucinations Paroxysmal supraventricular tachycardia (CMS/HCC) Personal history of COVID-19NormalUniversity of [facility]94Group Topic: Activity Therapy Group Date: 06/22/2024 Start Time: 899 End Time: 944 Facilitators: Jessica Pulido RUBBER FLAP CUTTER Department: [facility] Number of Participants: 3 Group Focus: check in, clarity of thought, communication, concentration, problem solving, self-awareness, self-esteem, and social skills Treatment Modality: Patient-Centered Therapy Interventions utilized were active listening, clarification, exploration, problem solving, and support Purpose: Pts. Completed [employer] daily crossword and trivia with RUBBER FLAP CUTTER. Name: Donnie Bullock Date of : 1955 MR: [id number] Level of Participation: withdrawn Quality of Participation: passive Response: Pt. withdrawn during group session. No active participation noted at this time. No active refusal noted. Will continue to encourage active participation in groups with RUBBER FLAP CUTTER and peers while on the unit. Plan: Pt. Will be encouraged to continue attending therapeutic recreation interventions with the RUBBER FLAP CUTTER and peers while on the unit. Patients Problems: Patient Active Problem List Diagnosis Neurocognitive disorder with Lewy bodies (CMS/HCC) Slow transit constipation Visual hallucinations Paroxysmal supraventricular tachycardia (CMS/HCC) Personal history of COVID-19NormalUniversity of [facility] TempleNURSNOTEon [id number] ran out of her bedroom screaming that my window just blew out didn't you hear the noise. I'm never going back into that room. Shoe Planner, did assess windows were still intact. PRN Seroquel 25 mg was given.[facility]NURSNOTEPt calm and cooperative with assessment and HS med pass. Pt denies of pain and SOB no cough noted. Pt denies of SI/HI/AV hallucinations. Pt did mention that her was coming back to see her at 0300, in which could of been a mishap instead of 1500. 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 Pt tends to go into other pt's rooms looking for her glasses, the bathroom, or bed constantly being re-directed by staff. Safety checks maintained.[facility] HealthNayeli was approached by pt's in the hallway. The pt's shared a few concerns and comments which was relayed to the primary nurse. One of the concerns was to have the provider to call him with updates on Wednesday concerning his .[facility] HealthYumi's visited during visitation hours today and senior mortgage underwriter observed patient and her walking around the unit. Patient currently attending dinner in the day room and observed socializing with other patients. Patient expressed that she was having anxiety earlier in the afternoon (see MAR). Patient pleasant and calm at this time. Safety checks continued.[facility] HealthGIGIatient observed wandering in and out of her room, walking around the unit. Patient stated I am a little bit anxious about wanting to talk to Vimal and it makes me a little sad that the days go by so fast . Patient denies SI/HI and hallucinations. Patient cooperative and pleasant with morning assessment and medications. Patient keeps to self but is oriented to person and talks frequently about her . Patient observed asking staff about finding her purse . Patient denies needs at this time. Safety checks continued.Normal [facility] HospitalNURSNOTEPt slept approximately 6 hours last night. No behaviors or issues to report at this time. Safety checks maintained.[facility]30 on [id number] patient is Moderately Unstable - Medium risk of patient condition declining or worsening The patient's goals for the shift include rest The clinical goals for the shift include safety/comfort Problem: Confusion Goal: LTG-Take medications as prescribed Outcome: Progressing Problem: Psychotic Symptoms Goal: LTG-Alleviate psychotic symptoms Outcome: ProgressingNormalUniversity of [facility]94on Group Topic: Activity Therapy Group Date: 06/21/2024 Start Time: 1420 End Time: 1550 Facilitators: JONATHAN Jorge Department: [facility] Number of Participants: 4 Group Focus: concentration, feeling awareness/expression, leisure skills, problem solving, reminiscence, and social skills Treatment Modality: Leisure Development and Patient-Centered Therapy Interventions utilized were active listening, leisure development, reminiscence, story telling, and support Purpose: express feelings, improve communication skills, and increase insight or knowledge Name: Donnie Bullock Date of : 1955 MR: [id number] Level of Participation: refused Response: Pt. Refused to participate in the group activity. Plan: Pt will be encouraged to participate in recreational therapy groups and activities. Patients Problems: Patient Active Problem List Diagnosis Neurocognitive disorder with Lewy bodies (CMS/HCC) Slow transit constipation Visual hallucinations Paroxysmal supraventricular tachycardia (CMS/HCC) Personal history of COVID-19NormalUniversity of [facility]94Group Topic: Activity Therapy Group Date: 06/21/2024 Start Time: 45 End Time: 1135 Facilitators: JONATHAN Jorge Department: [facility] Number of Participants: 6 Group Focus: art therapy, check in, communication, coping skills, family, feeling awareness/expression, leisure skills, relaxation, reminiscence, and social skills Treatment Modality: Art Therapy, Leisure Development, and Patient-Centered Therapy Interventions utilized were active listening, leisure development, reminiscence, story telling, and support Purpose: enhance coping skills, express feelings, improve communication skills, and increase insight or knowledge Name: Donnie Bullock Date of : 1955 MR: [id number] Level of Participation: withdrawn Response: Pt. Did not participate in the group activity. Plan: Pt will be encouraged to participate in recreational therapy groups and activities. Patients Problems: Patient Active Problem List Diagnosis Neurocognitive disorder with Lewy bodies (CMS/HCC) Slow transit constipation Visual hallucinations Paroxysmal supraventricular tachycardia (CMS/HCC) Personal history of COVID-19NormalUniversity of [facility] TempleNURSNOTEon [id number] was sitting calmly in the dayroom at the beginning of shift change. Pt was cooperative with assessment and HS med pass. Pt denies of SOB, but did c/o throat pain with a little unproductive cough. Covid-19 test performed and the results were negative. PRN Tylenol was given. Pt denies of SI/HI/AV hallucinations. Pt did ask if her Vimal was still here. Once explained to pt that her left for the evening pt remained calm without any hallucinations verbalized. No behaviorals nor any other issues to report at this time. Safety checks maintained.[facility]NURSNOTE Patient walked unit with during visitation. Visit went well . Patient co-operative with meds and conversation. Steady on her feet. Ate fair for dinner. Patient complained of feeling constipated, prn miralax given.[facility] HospitalNURSNOTEPatient came up to senior mortgage underwriter saying there was a man in her bed. Shoe Planner looked there was no one in her bed. I don`t know if she looked in the room next to her or actually thought she saw someone. Patient laid down when she realized it was safe.[facility]NURSNOTEPatient standing in doorway looking lost. Patient said `I seen a book so I thought I was at the library.` Reoriented patient, encouraged to come out to dayroom. Patient sat with another peer to socialize and help her with her puzzle.[facility]NURSNOTEPt slept approximately 7 hours last night. No behaviors or issues to report at this time. Safety checks maintainedNormalUniversity of [facility] NURSNOTEPt wandering around the unit into a different pt's room looking for her glasses at the beginning of shift change. Pt was calm and cooperative with assessment and med pass. Pt denies of pain and SOB. Pt seems a bit more confused than previous encounters. 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 My has another woman out of town, but says how much he loves me. Pt denies of SI/HI AV hallucinations, but visual hallucinations are present. Safety checks maintained.[facility]30The patient is Moderately Unstable - Medium risk of patient condition declining or worsening The patient's goals for the shift include rest The clinical goals for the shift include safety Problem: Anxiety Goal: LTG-Decrease worry of fearful thoughts and/or behaviors Outcome: Not Progressing Problem: Confusion Goal: LTG-Interact appropriately within social settings Outcome: Not ProgressingNormalUniversWayne Hospital30Problem: Anxiety Goal: STG-Will not pace the floor more than 10 per shift Outcome: Progressing Problem: Confusion Goal: LTG-Demonstrates an improvement in impulsive behaviors Outcome: Progressing Problem: Confusion Goal: STG-Engages in social situations appropriately 3 per shift Outcome: Not ProgressingNormalUniversity of [facility]94on 06-20-2024 94Group Topic: Activity Therapy Group Date: 06/20/2024 Start Time: 1400 End Time: 1530 Facilitators: JONATHAN Jorge Department: [facility] Number of Participants: 4 Group Focus: communication, concentration, feeling awareness/expression, leisure skills, reminiscence, and social skills Treatment Modality: Leisure Development and Patient-Centered Therapy Interventions utilized were active listening, leisure development, problem solving, reminiscence, story telling, and support Purpose: express feelings, improve communication skills, and increase insight or knowledge Name: Donnie Bullock Date of : 1955 MR: [id number] Level of Participation: withdrawn Response: Pt. Did not participate in the group activity. Plan: Pt will be encouraged to participate in recreational therapy groups and activities. Patients Problems: Patient Active Problem List Diagnosis Neurocognitive disorder with Lewy bodies (CMS/HCC) Slow transit constipation Visual hallucinations Paroxysmal supraventricular tachycardia (CMS/HCC) Personal history of COVID-19NormalUniversity of [facility]94Group Topic: Process Group Date: 06/20/2024 Start Time: 1015 End Time: 1100 Facilitators: Lissy Littlejohn LPC Department: [facility] Number of Participants: 2 Group Focus: check in, other working with RT, and reminiscence Interventions utilized were active listening, clarification, other alternative group using therapeutic games, and reminiscence Purpose: enhance coping skills, express feelings, and engaging in therapeutic games. Name: Donnie Bullock Date of : 1955 MR: [id number] Level of Participation: withdrawn to room Plan: patient will be encouraged to engage in activities Patients Problems: Patient Active Problem List Diagnosis Neurocognitive disorder with Lewy bodies (CMS/HCC) Slow transit constipation Visual hallucinations Paroxysmal supraventricular tachycardia (CMS/HCC) Personal history of COVID-19NormalUniversity of [facility]94Group Topic: Activity Therapy Group Date: 06/20/2024 Start Time: 0930 End Time: 1130 Facilitators: JONATHAN Jorge Department: [facility] Number of Participants: 7 Group Focus: check in, clarity of thought, communication, coping skills, family, feeling awareness/expression, leisure skills, reminiscence, and social skills Treatment Modality: Leisure Development and Patient-Centered Therapy Interventions utilized were active listening, assignment, exploration, leisure development, reminiscence, story telling, and support Purpose: enhance coping skills, express feelings, improve communication skills, and increase insight or knowledge Name: Donnie Bullock Date of : 1955 MR: [id number] Level of Participation: withdrawn Response: Pt. Did not participate in the group activity. Plan: Pt will be encouraged to participate in recreational therapy groups and activities. Patients Problems: Patient Active Problem List Diagnosis Neurocognitive disorder with Lewy bodies (CMS/HCC) Slow transit constipation Visual hallucinations Paroxysmal supraventricular tachycardia (CMS/HCC) Personal history of COVID-19NormalUniGood Samaritan HospitalNURSNOTEon [id number] slept intermittently about 4.5 hours last night. Patient walking around unit occasionally. No behaviors or issues to report at this time. Safety checks maintained.[facility]30The patient is Moderately Stable - Low risk of patient condition declining or worsening The patient's goals for the shift include Rest The clinical goals for the shift include Safety and comfort Problem: Anxiety Goal: LTG-Decrease worry of fearful thoughts and/or behaviors Outcome: Progressing Problem: Confusion Goal: LTG-Take medications as prescribed Outcome: Progressing Problem: Depression Goal: LTG-Alleviate depressed mood Outcome: Progressing Problem: Psychotic Symptoms Goal: LTG-Alleviate psychotic symptoms Outcome: Progressing Problem: Hypo/Hypertension Goal: STG-Willingly allowing vitals twice daily Outcome: ProgressingNormalUnihuntsville memorial hospital of [facility]30The patient is Moderately Stable - Low risk of patient condition declining or worsening The patient's goals for the shift include to get through this rough day The clinical goals for the shift include safety/comfort Problem: Anxiety Goal: STG-Cooperates with evaluations from physicians/RNs Outcome: Progressing Problem: Confusion Goal: LTG-Take medications as prescribed Outcome: Progressing Problem: Depression Goal: LTG-Engage in self care as tolerated Outcome: ProgressingMer[facility] Health30The patient is Moderately Unstable - Medium risk of patient condition declining or worsening The patient's goals for the shift include [place] The clinical goals for the shift include rapport/safety/rest Problem: Psychotic Symptoms Goal: LTG-Take medications as prescribed Outcome: Progressing Problem: Depression Goal: LTG-Demonstrate elevation in mood Outcome: Not ProgressingNormalUniversWayne Hospital94on 06-19-2024 94Group Topic: Coping Skills Group Date: 06/19/2024 Start Time: 1015 End Time: 1100 Facilitators: Lissy Littlejohn LPCC Department: [facility] Number of Participants: 6 Group Focus: check in and coping skills alternative was engaging with other staff and/or relaxing Interventions utilized were active listening, exploration, reminiscence, and support Purpose: enhance coping skills and trigger / craving management Name: Donnie Bullock Date of : 1955 MR: [id number] Level of Participation: wandering around Plan: patient will be encouraged to engage in groups Patients Problems: Patient Active Problem List Diagnosis Neurocognitive disorder with Lewy bodies (CMS/HCC) Slow transit constipation Visual hallucinations Paroxysmal supraventricular tachycardia (CMS/HCC) Personal history of COVID-19Normal[id number] Topic: Life Skills/Enrichment Group Date: 06/19/2024 Start Time: 1100 End Time: 1145 Facilitators: Cydney Peacock OT Department: [facility] Number of Participants: 8 Group Focus: check in, feeling awareness/expression, goals/reality orientation, healthy friendships, leisure skills, self-awareness, and self-esteem Treatment Modality: Leisure Development, Patient-Centered Therapy, Skills Training, and Solution-Focused Therapy Interventions utilized were patient education, problem solving, reminiscence, and support Purpose: enhance coping skills, express feelings, regain self-worth, and reinforce self-care Name: Donnie Bullock Date of : 1955 MR: [id number] Level of Participation: withdrawn Quality of Participation: Patient withdrawn during group session. No active participation or integration with peers or OT at this time. No active refusal noted. Plan to encourage pt to attend groups and engage with other peers while on the unit. Pt came out and sat at tables toward end of session; smiling at therapist Patients Problems: Patient Active Problem List Diagnosis Neurocognitive disorder with Lewy bodies (CMS/HCC) Slow transit constipation Visual hallucinations Paroxysmal supraventricular tachycardia (CMS/HCC) Personal history of COVID-19NormalUniversity of [facility]94Group Topic: Relaxation Group Date: 06/19/2024 Start Time: 0900 End Time: 1010 Facilitators: Josi Astogra [employer] Department: [facility] Number of Participants: 6 Group Focus: affirmation, check in, communication, concentration, coping skills, feeling awareness/expression, healthy friendships, leisure skills, relaxation, self-awareness, self-esteem, and social skills Treatment Modality: Leisure Development and Patient-Centered Therapy Interventions utilized were active listening, exploration, leisure development, and support Purpose: enhance coping skills, express feelings, improve communication skills, increase insight or knowledge, regain self-worth, and reinforce self-care Name: Donnie Bullock Date of : 1955 MR: [id number] Level of Participation: withdrawn Progress: None Response: Pt. Was withdrawn from group. No active participation noted at this time. Plan: Pt. Will be encouraged to attend therapeutic recreation interventions with the RUBBER FLAP C[employer]TER in the future. Patients Problems: Patient Active Problem List Diagnosis Neurocognitive disorder with Lewy bodies (CMS/HCC) Slow transit constipation Visual hallucinations Paroxysmal supraventricular tachycardia (CMS/HCC) Personal history of COVID-19NormalUniversity of [facility] TempleNURSNOTEon [id number] had family visit during the day; patient observed pacing the halls. Patient attended dinner and was compliant with evening medication. Patient calm, cooperative and pleasant. Patient kept to self and denies any needs at this time. Safety checks continued.[facility] Patient attended breakfast and then returned to her room. Patient cooperative and compliant with morning assessment and medications. Patient stated I've not had much of an appetite since being here . Patient spoke with her on the phone and stated that today she is feeling tired and lazy . Patient denies SI/HI and hallucinations. Patient denies any needs at this time. Safety checks continued.[facility] HealthNURSNOTEPt slept approximately 5 hours last night. No behaviors or issues to report at this time. Safety checks maintainedNoPro[facility]30on [id number] patient is Moderately Unstable - Medium risk of patient condition declining or worsening The patient's goals for the shift include rest The clinical goals for the shift include safety/ sleep Problem: Anxiety Goal: STG-Cooperates with evaluations from physicians/RNs Outcome: Progressing Goal: STG-Will not pace the floor more than 10 per shift Outcome: Progressing Problem: Confusion Goal: STG-Accepts redirection without escalation Outcome: Progressing Goal: STG-Engages in social situations appropriately 3 per shift Outcome: Not Progressing Problem: Depression Goal: LTG-Reach optimal level of functioning Outcome: Not Progressing Goal: STG-Will perform 50% of self-care by discharge Outcome: Progressing Problem: Psychotic Symptoms Goal: STG-Differs between reality and non-reality Outcome: Progressing Goal: STG-Will report less than 12 hallucinations per shift by discharge Outcome: Progressing Problem: Constipation Goal: STG-Regular elimination pattern by discharge Outcome: Not Progressing Goal: STG-Willingly takes stool softener medication by discharge Outcome: Progressing Problem: Fall Risk Goal: STG-Zero falls by discharge Outcome: Progressing Problem: Hypo/Hypertension Goal: STG-Willingly allowing vitals twice daily Outcome: ProgressingNormalUniversity of [facility]94on Group Topic: Activity Therapy Group Date: 06/18/2024 Start Time: 944 End Time: 1124 Facilitators: AYSE JorgeS Department: [facility] Number of Participants: 6 Group Focus: check in, communication, concentration, coping skills, family, feeling awareness/expression, leisure skills, relaxation, reminiscence, and social skills Treatment Modality: Leisure Development and Patient-Centered Therapy Interventions utilized were active listening, leisure development, reminiscence, story telling, and support Purpose: enhance coping skills, express feelings, improve communication skills, increase insight or knowledge, and reinforce self-care Name: Donnie Bullock Date of : 1955 MR: [id number] Level of Participation: minimal Quality of Participation: attentive Interactions with others: minimal Mood/Affect: closed / guarded Cognition: loose Progress: Minimal Response: Pt. Minimally participated in the check in group. Pt. Briefly discussed how they are feeling this morning and how they slept last night. Pt. Declined to have their nails painted, however sat at the group table socializing only when others initiated a conversations. Plan: Pt will be encouraged to participate in recreational therapy groups and activities. Patients Problems: Patient Active Problem List Diagnosis Neurocognitive disorder with Lewy bodies (CMS/HCC) Slow transit constipation Visual hallucinations Paroxysmal supraventricular tachycardia (CMS/HCC) Personal history of COVID-19NormalUniversity of Bay[facility] TempleNRUSTEon [id number] was resting in bed at the beginning of shift change. Pt calm and cooperative with assessment and HS med pass. Pt denies of pain and SOB. Pt denies of SI/HI/AV hallucinations, but witness on several occasions talking to herself. Pt tends wake up in the middle of the night wandering around confused asking staff for redirection what am I supposed to be doing right now. Where is my room? [facility] real change with patient the rest of the day. Ate lunch and dinner well. Compliant with medications. Patient was a little social with peers today which is a huge step in the right direction. Patient also appeared more aware of the things going on around her. Patient had a visit from her clergy who sat and prayed with her in the dining room. Patient remains safe on unit with every 15 minute checks per policy.[facility] Patient sleeps in a little later than she did yesterday. Remains isolative to self but is sitting at the table with all the ladies. Eats breakfast well. Patient speaks with staff vaguely with concerns of constipation, miralax given. Patient does not know why she is here and wants to go home. Pt is pleasantly confused with zero behavioral issues and remains safe on unit with every 15 minute checks.[facility]IAL [facility] CENTERNOTEPt slept approximately 8 hours last night. Pt did not have any instances of wandering after going to bed for the night. Safety checks maintained.[facility] resting in bed at shift change. Pt cooperative with assessment and hs med pass. Pt stated that she felt, alright, just tired . Pt did get up and come out of her room for a snack. Pt sat at a table with peers, did not interact much, but was praised for making the effort. Pt retired to bed shortly after eating. Pt denied si hi and hallucinations. Pt denied pain and sob. Pt resting in bed comfortably at this time. Pt denies any needs. Safety checks maintained.[facility]30on [id number] patient is Moderately Unstable - Medium risk of patient condition declining or worsening The patient's goals for the shift include rest The clinical goals for the shift include safety/ sleep Problem: Anxiety Goal: STG-Cooperates with evaluations from physicians/RNs Outcome: Progressing Goal: STG-Will not pace the floor more than 10 per shift Outcome: Progressing Problem: Depression Goal: STG-Will perform 50% of self-care by discharge Outcome: Progressing Problem: Psychotic Symptoms Goal: STG-Differs between reality and non-reality Outcome: Progressing Goal: STG-Will report less than 12 hallucinations per shift by discharge Outcome: Progressing Problem: Fall Risk Goal: STG-Zero falls by discharge Outcome: Progressing Problem: Hypo/Hypertension Goal: STG-Willingly allowing vitals twice daily Outcome: ProgressingNormalUniversity of [facility]94on Group Topic: Activity Therapy Group Date: 06/17/2024 Start Time: 1025 End Time: 1145 Facilitators: JONATHAN Jorge Department: [facility] Number of Participants: 5 Group Focus: check in, communication, concentration, family, feeling awareness/expression, leisure skills, problem solving, reminiscence, and social skills Treatment Modality: Leisure Development and Patient-Centered Therapy Interventions utilized were active listening, leisure development, problem solving, reminiscence, story telling, and support Purpose: express feelings, improve communication skills, and increase insight or knowledge Name: Donnie Bullock Date of : 1955 MR: [id number] Level of Participation: withdrawn Response: Pt. Did not participate in the group activity. Plan: Pt will be encouraged to participate in recreational therapy groups and activities. Patients Problems: Patient Active Problem List Diagnosis Neurocognitive disorder with Lewy bodies (CMS/HCC) Slow transit constipation Visual hallucinations Paroxysmal supraventricular tachycardia (CMS/HCC) Personal history of COVID-19NormalUniversity of Baylor Scott & [facility] TempleNURSNOTEon [id number] real change with patient the rest of the day. Ate lunch and dinner well. Compliant with medications. Remains isolative to self but did sit with peers at dinner but did not engage. Patient remains safe on unit with every 15 minute checks per policy.NormalEast Liverpool City HospitalNURSNOTEPatient awake and out in dayroom early in shift. Remains isolative to self. Eats breakfast well. Spoke with this morning. Patient speaks with staff vaguely but with no relevance. Patient does not know why she is here and wants to go home. Pt is pleasantly confused with zero behavioral issues and remains safe on unit with every 15 minute checks.[facility]NURSNOTEPt slept approximately 7 hours last night. No behaviors or issues to report.[facility]30The patient is Moderately Unstable - Medium risk of patient condition declining or worsening The patient's goals for the shift include rest The clinical goals for the shift include safety/ sleep Problem: Confusion Goal: STG-Accepts redirection without escalation Outcome: Progressing Goal: STG-Engages in social situations appropriately 3 per shift Outcome: Not Progressing Problem: Depression Goal: STG-Will perform 50% of self-care by discharge Outcome: Not Progressing Problem: Psychotic Symptoms Goal: STG-Differs between reality and non-reality Outcome: Not Progressing Goal: STG-Will report less than 12 hallucinations per shift by discharge Outcome: Not Progressing Problem: Constipation Goal: STG-Willingly takes stool softener medication by discharge Outcome: Not Progressing Problem: Fall Risk Goal: STG-Zero falls by discharge Outcome: Not Progressing Problem: Hypo/Hypertension Goal: STG-Willingly allowing vitals twice daily Outcome: ProgressingNormalUniversity of [facility]94on Group Topic: Activity Therapy Group Date: 06/16/2024 Start Time: 1400 End Time: 1600 Facilitators: JONATHAN Jorge Department: [facility] Number of Participants: 4 Group Focus: communication, concentration, family, feeling awareness/expression, leisure skills, problem solving, reminiscence, and social skills Treatment Modality: Leisure Development and Patient-Centered Therapy Interventions utilized were active listening, leisure development, problem solving, reminiscence, story telling, and support Purpose: express feelings, improve communication skills, and increase insight or knowledge Name: Donnie Bullock Date of : 1955 MR: [id number] Level of Participation: withdrawn Response: Pt. Did not participate in the group activity. Plan: Pt will be encouraged to participate in recreational therapy groups and activities. Patients Problems: Patient Active Problem List Diagnosis Neurocognitive disorder with Lewy bodies (CMS/HCC) Slow transit constipation Visual hallucinations Paroxysmal supraventricular tachycardia (CMS/HCC) Personal history of COVID-19NormalUniversity of [facility]94Group Topic: Relaxation Group Date: 06/16/2024 Start Time: 1015 End Time: 1100 Facilitators: BRIT Thakkar Department: [facility] Number of Participants: 1 Group Focus: other relaxation vs game with RT Interventions utilized were support Purpose: assist with relaxation and comfort Name: Donnie Bullock Date of : 1955 MR: [id number] Level of Participation: withdrawn to self and occasionally would wander unit Plan: patient will be encouraged to engage in groups Patients Problems: Patient Active Problem List Diagnosis Neurocognitive disorder with Lewy bodies (CMS/HCC) Slow transit constipation Visual hallucinations Paroxysmal supraventricular tachycardia (CMS/HCC) Personal history of COVID-19NormalUniversity of [facility]94Group Topic: Activity Therapy Group Date: 06/16/2024 Start Time: 1000 End Time: 1140 Facilitators: AYSE JorgeS Department: [facility] Number of Participants: 11 Group Focus: anxiety, check in, clarity of thought, communication, concentration, coping skills, family, feeling awareness/expression, goals/reality orientation, leisure skills, problem solving, reminiscence, and social skills Treatment Modality: Leisure Development and Patient-Centered Therapy Interventions utilized were active listening, assignment, exploration, group exercise, leisure development, problem solving, reminiscence, story telling, and support Purpose: enhance coping skills, express feelings, improve communication skills, and increase insight or knowledge Name: Donnie Bullock Date of : 1955 MR: [id number] Level of Participation: active Quality of Participation: cooperative and engaged Interactions with others: gave feedback Mood/Affect: appropriate Cognition: coherent/clear and goal directed Progress: Gaining insight or knowledge Response: Pt. Actively participated in the Bowling game group. Pt. Independently volunteered to take their turn when RU[employer]ER FLAP CUTTER asked who wanted to go next. Pt. Was able to toss the ball towards the pins, knocking them down. On pts. Last turn of the game, she was able to knock down all of the pins in one throw, getting a strike. Pt. Immediately turned towards peers, giving everyone in the group a high five one by one. Pt. Was observed smiling and stated she was surprised she was able to knock them all down. Pt. Declined to participate in the Check In portion of group, stating she wanted to take a shower before lunch. Plan: Pt will be encouraged to continue to participate in recreational therapy groups and activities. Patients Problems: Patient Active Problem List Diagnosis Neurocognitive disorder with Lewy bodies (CMS/HCC) Slow transit constipation Visual hallucinations Paroxysmal supraventricular tachycardia (CMS/HCC) Personal history of COVID-19NormalUniversity of Baylor [facility] TempleNURSNOTEon [id number] sitting with peers in day room at shift change. Pt pleasant and cooperative, but somewhat guarded. Pt denied si hi and hallucinations. Pt denied pain and sob. Pt was asked if her nausea was any better and she said, yes I think so . Pt did not have a snack, but did drink some water as she sat with peers. Pt has not asked about her or family this evening. Pt now resting in her assigned bed at this time. Pt denied any needs at this time. Safety checks maintained.[facility] HealthNURSNOTEPatient cooperative with staff. Patient took all medications as ordered. Patient ate meals well. Patient had periods of time in and out of her room but also remains very withdrawn when not in her room. Does not participate in group or socialize with peers. Pt denies SI,HI, and AV at this time and remains safe on unit with every 15 minute checks per policy.[facility] HealthNURSNOTEPt slept approximately 7.5 hours last night per the nightly sleep sheet. Pt needed to be redirected less this evening, and continued to be pleasant each time. Safety checks maintained.[facility]30The patient is Moderately Stable - Low risk of patient condition declining or worsening The patient's goals for the shift include rest The clinical goals for the shift include safety/ sleep Problem: Depression Goal: LTG-Engage in self care as tolerated Outcome: Not ProgressingNormalUniversity of [facility]94on 06-15-2024 94Group Topic: Symptom Recognition Group Date: 06/15/2024 Start Time: 1015 End Time: 1100 Facilitators: MINDY Hunt Department: [facility] Number of Participants: 2 Group Focus: anxiety, check in, depression, dual diagnosis, feeling awareness/expression, psychiatric education, and self-awareness Treatment Modality: Individual Therapy, Interpersonal Therapy, Motivational interviewing, and Patient-Centered Therapy Interventions utilized were active listening, clarification, confrontation, exploration, patient education, and support Purpose: express feelings and increase insight or knowledge Name: Donnie Bullock Date of : 1955 MR: [id number] Level of Participation: active Quality of Participation: cooperative, distractible, and offered feedback Interactions with others: gave feedback and offered helpful suggestions Mood/Affect: appropriate and flat Cognition: coherent/clear, distracted, and insightful Plan: patient will be encouraged to continue to participate in groups Patients Problems: Patient Active Problem List Diagnosis Neurocognitive disorder with Lewy bodies (CMS/HCC) Slow transit constipation Visual hallucinations Paroxysmal supraventricular tachycardia (CMS/HCC) Personal history of COVID-19NormalUniversity of [facility]94Group Topic: Activity Therapy Group Date: 06/15/2024 Start Time: 1100 End Time: 1145 Facilitators: Jessica Pulido [employer] Department: [facility] Number of Participants: 3 Group Focus: check in, clarity of thought, concentration, problem solving, self-awareness, and social skills Treatment Modality: Patient-Centered Therapy Interventions utilized were active listening, clarification, exploration, mental fitness, problem solving, reminiscence, and support Purpose: Pts. Engaged in group trivia with topics including Music, Movies, and Pop Culture for the 1950s, 1960s, and 1970s. Name: Donnie Bullock Date of : 1955 MR: [id number] Level of Participation: active Quality of Participation: attentive, cooperative, and engaged Response: Pt. Attended group with RU[employer] C[employer]TER and peers at this time. Pt. Integrated well into group setting, and was engaged with RU[employer] C[employer]TER and peers, while offering appropriate insight into group discussion. Plan: Pt. Will be encouraged to continue attending therapeutic recreation interventions with the RUBBER FLAP C[employer]TER and peers while on the unit. Patients Problems: Patient Active Problem List Diagnosis Neurocognitive disorder with Lewy bodies (CMS/HCC) Slow transit constipation Visual hallucinations Paroxysmal supraventricular tachycardia (CMS/HCC) Personal history of COVID-19NormalUniversity of [facility]94Group Topic: Reminiscence Group Date: 06/15/2024 Start Time: 0900 End Time: 1000 Facilitators: Josi Astorga [employer]TER Department: [facility] Number of Participants: 0 Group Focus: check in, clarity of thought, communication, concentration, family, feeling awareness/expression, healthy friendships, leisure skills, relaxation, and reminiscence Treatment Modality: Leisure Development and Patient-Centered Therapy Interventions utilized were active listening, exploration, leisure development, mental fitness, and support Purpose: express feelings, improve communication skills, increase insight or knowledge, and regain self-worth Name: Donnie Bullock Date of : 1955 MR: [id number] Level of Participation: withdrawn Progress: None Response: Pt. Was withdrawn from group. No active participation noted at this time. Plan: Pt. Will be encouraged to attend therapeutic recreation interventions with the RUBBER FLAP C[employer]TER in the future. Patients Problems: Patient Active Problem List Diagnosis Neurocognitive disorder with Lewy bodies (CMS/HCC) Slow transit constipation Visual hallucinations Paroxysmal supraventricular tachycardia (CMS/HCC) Personal history of COVID-19NormalUniversity of Baylor Scott & [facility] TempleNURSNOTEon [id number] walking around unit at shift change. Pt pleasant and cooperative, but was tearful, as she was looking around for her . Pt was convinced that her was in the hospital, and I haven't seen him yet Pt was reminded that she is currently in the hospital. Pt seemed accepting of this stating, oh yeah ok, that sounds right. Pt denied si hi and hallucinations. Pt denied pain and sob. Pt has been up and down again this evening, but is easily redirectable. Pt resting in assigned bed at this time. Safety checks maintained.[facility] HealthNURSNOTEPT doing well today. PT reports slept well, feeling well, denies any pain/discomfort. PT ate well at breakfast and lunch. PT compliant with all medication. PT denies any thoughts of harming self or others. Denies any hallucinations. PT has been calm and cooperative, friendly. PT is A/O x3 Disoriented to situation. PT is currently sleeping in dayroom. PT remains safe and free from harm.[facility] HealthNURSNOTEPT c/o headache. Stated it started this am but continues to worsen. TYL to be given PRN. PT denies any injury, nausea/vomiting. Vitals WNLNMercy Health Allen HospitalNURSNOTEPt slept approximately 6.25 hours per the nightly sleep sheet. Pt needed redirected back to her room a couple times last night. Pt would wake up to use the restroom, and then would forget where her room is. Pt was easily redirected back to bed each time, and was thankful for the assistance. Safety checks maintained.[facility]94on [id number] Topic: Activity Therapy Group Date: 06/14/2024 Start Time: 1400 End Time: 1600 Facilitators: Miladys Kaplan [employer] Department: [facility] Number of Participants: 6 Group Focus: communication, concentration, family, feeling awareness/expression, leisure skills, problem solving, reminiscence, and social skills Treatment Modality: Leisure Development and Patient-Centered Therapy Interventions utilized were active listening, leisure development, problem solving, reminiscence, story telling, and support Purpose: express feelings, improve communication skills, and increase insight or knowledge Name: Donnie Bullock Date of : 1955 MR: [id number] Level of Participation: withdrawn Response: Pt. Did not participate in the group activity. Plan: Pt will be encouraged to participate in recreational therapy groups and activities. Patients Problems: Patient Active Problem List Diagnosis Neurocognitive disorder with Lewy bodies (CMS/HCC) Slow transit constipation Visual hallucinations Paroxysmal supraventricular tachycardia (CMS/HCC) Personal history of COVID-19NormalUniversity of [facility]94Group Topic: Activity Therapy Group Date: 06/14/2024 Start Time: 0940 End Time: 1210 Facilitators: JONATHAN Jorge Department: [facility] Number of Participants: 5 Group Focus: check in, communication, concentration, family, feeling awareness/expression, leisure skills, problem solving, reminiscence, and social skills Treatment Modality: Leisure Development and Patient-Centered Therapy Interventions utilized were active listening, leisure development, problem solving, reminiscence, story telling, and support Purpose: express feelings, improve communication skills, and increase insight or knowledge Name: Donnie Bullock Date of : 1955 MR: [id number] Level of Participation: withdrawn Response: Pt. Did not participate in the group activity. Plan: Pt will be encouraged to participate in recreational therapy groups and activities. Patients Problems: Patient Active Problem List Diagnosis Neurocognitive disorder with Lewy bodies (CMS/HCC) Slow transit constipation Visual hallucinations Paroxysmal supraventricular tachycardia (CMS/HCC) Personal history of COVID-19NormalUniversity of [facility]94Group Topic: Process Group Date: 06/14/2024 Start Time: 1015 End Time: 1100 Facilitators: Lissy Littlejohn [facility] Department: [facility] Number of Participants: 3 Group Focus: check in and other getting to know you : alternative was playing cards with other staff and peers. Interventions utilized were assignment, exploration, and support Purpose: enhance coping skills, express feelings, and express reasons for admission and thought behind it. Name: Donnie Bullock Date of : 1955 MR: [id number] Level of Participation: walking the unit and then laying down Plan: patient will be encouraged to participate in activities Patients Problems: Patient Active Problem List Diagnosis ??? Neurocognitive disorder with Lewy bodies (CMS/HCC) ??? Slow transit constipation ??? Visual hallucinations ??? Paroxysmal supraventricular tachycardia (CMS/HCC) ??? Personal history of COVID-19NormalUniversity of [facility] NURSNOTEon [id number] sitting quietly in day room at shift change. Pt pleasant, cooperative, but guarded during assessment. Pt denied si hi and hallucinations. Pt denied pain and sob. Pt stated that her depression was a 4 and her anxiety was also a 4. Pt stated that she was, doing ok today, Im always better after I talk to my . Pt stated that she spoke to her on the phone. Pt stated that she has some worrying because of, I dont know why Im here but otherwise said she felt fine. Pt had an evening snack and sat quietly with peers before retiring to her room for the evening. Pt denies any needs at this time. Safety checks maintained.NormalEast Liverpool City HospitalNURSNOTEPatient walks around unit at intervals. Napped this afternoon. No further verbalization of hallucinations to senior mortgage underwriter except this am when she said she saw a bunny at the foot of her bed. Appetite good and took all meds without issue. Now sitting quietly in dayroom. Minimal interaction with peers.[facility] HealthNLUISNOTNorm patient slept 6 hours last night. She has been awake since 429. During that time she has walked out to the day room several times saying that she is tired and is going to go back to bed. She is awake and resting in bed at this time.[facility] HealthYumi came out to the dayroom from her room and stated that her friend Negra was in the boat and all tangled up in fishing line and she thought that she was going to . The patient asked the senior mortgage underwriter to come assist her with her getting her friend untangled. The senior mortgage underwriter went with the patient to her room where the senior mortgage underwriter pointed to the bed and said she is over there in the boat. The senior mortgage underwriter and the patient talked about how that was the patient's bed which the patient acknowledged. The patient then agreed that she either was dreaming or hallucinating that the friend had been there in a boat. The patient is resting in bed at this time.[facility] The patient is Moderately Unstable - Medium risk of patient condition declining or worsening The patient's goals for the shift include rest The clinical goals for the shift include safety Problem: Anxiety Goal: STG-Cooperates with evaluations from physicians/RNs Outcome: Progressing Problem: Confusion Goal: LTG-Take medications as prescribed Outcome: Progressing Goal: LTG-Interact appropriately within social settings Outcome: Progressing Problem: Depression Goal: LTG-Take medications as prescribed Outcome: Progressing Problem: Hypo/Hypertension Goal: STG-Willingly allowing vitals twice daily Outcome: ProgressingNormalUniversity of [facility]30Original care plan was accidentally auto deleted when RN discharged patient by accident.[id number] Topic: Activity Therapy Group Date: 06/13/2024 Start Time: 1400 End Time: 1530 Facilitators: JONATHAN Jorge Department: [facility] Number of Participants: 4 Group Focus: concentration, leisure skills, problem solving, reminiscence, and social skills Treatment Modality: Leisure Development and Patient-Centered Therapy Interventions utilized were active listening, leisure development, problem solving, reminiscence, and support Purpose: express feelings, improve communication skills, and increase insight or knowledge Name: Donnie Bullock Date of : 1955 MR: [id number] Level of Participation: withdrawn Response: Pt. Did not participate in the group activity. Plan: Pt will be encouraged to participate in recreational therapy groups and activities. Patients Problems: Patient Active Problem List Diagnosis Neurocognitive disorder with Lewy bodies (CMS/HCC) Slow transit constipation Visual hallucinations Paroxysmal supraventricular tachycardia (CMS/HCC) Personal history of COVID-19NormalUniversWayne Hospital94 Attestation signed by MINDY Hunt at 06/14/2024 9:34 AM I agree with the content of this note and have no current revisions. Group Topic: Social Work Group Date: 06/13/2024 Start Time: 1015 End Time: 1100 Facilitators: Mindy Weinstein Department: [facility] Number of Participants: 1 Group Focus: affirmation, check in, communication, and feeling awareness/expression Treatment Modality: Individual Therapy, Patient-Centered Therapy, and Spiritual Interventions utilized were exploration and support Purpose: enhance coping skills Name: Donnie Bullock Date of : 1955 MR: [id number] Level of Participation: patient was practicing a relaxation technique in her room Plan: patient will be encouraged to participate in future groups Patients Problems: Patient Active Problem List Diagnosis Neurocognitive disorder with Lewy bodies (CMS/HCC) Slow transit constipation Visual hallucinations Paroxysmal supraventricular tachycardia (CMS/HCC) Personal history of COVID-19NormalUniversWayne Hospital94Group Topic: Activity Therapy Group Date: 06/13/2024 Start Time: 944 End Time: 1140 Facilitators: JONATHAN Jorge Department: [facility] Number of Participants: 4 Group Focus: check in, communication, concentration, feeling awareness/expression, leisure skills, problem solving, reminiscence, and social skills Treatment Modality: Leisure Development and Patient-Centered Therapy Interventions utilized were active listening, leisure development, problem solving, reminiscence, and support Purpose: express feelings, improve communication skills, and increase insight or knowledge Name: Donnie Bullock Date of : 1955 MR: [id number] Level of Participation: refused Response: Pt. Refused to participate in the group activity. Plan: Pt will be encouraged to participate in recreational therapy groups and activities. Patients Problems: Patient Active Problem List Diagnosis Neurocognitive disorder with Lewy bodies (CMS/HCC) Slow transit constipation Visual hallucinations Paroxysmal supraventricular tachycardia (CMS/HCC) Personal history of COVID-19NormalUniversWayne HospitalNMEMORIAL MEDICAL CENTERNOTon [id number] was sleeping in bed at the beginning of the shift. Patient was compliant with medications and assessments. Pt did state that she had a headache and requested Tylenol which was given. Pt denied SI, HI or the presence of AVH. She rates her anxiety and depression at 6/10. She states that she is sad and would like to see her family. The patient is sitting on the side of her bed at this time.[facility] HealthNURSNOTEPatient hasn't wandered unit as much today. She has sat in dayroom or sat on her bed. We talked this am and she told me she had lewy body parkinsons. She also told me she was here because she was unsteady at home. Although here her gait is steady. Appetite good and took all meds well. Now looking out the window in her room. Seems sad and wants to go home. Minimal interaction with peers.[facility] HospitalNURSNOTEThe patient has been up several more times looking for family members. She slept approximately 6 hours this shift.[facility] NURSNOTEPatient has been up in the day room for approximately the last hour. She heard a staff member and another patient talking about being at [facility] in [place]. The patient asked the senior mortgage underwriter, they said we are in [place], but we are in [place] . The patient believed that she was in [place] at a play that her daughter is in. She said that she had just watched them practicing and that the play was getting ready to start. The patient pointed over near the nurses station and said that was where they had been practicing for the play. Shoe Planner explained to the patient that she was in the hospital in [place]. The patient did not know why she was at the hospital but did acknowledge that she was at the hospital. She also acknowledged that she had thought she saw her daughter and others practicing for the play but it wasn't real. The patient also repeatedly stated that she doesn't have her glasses and she can't see very well. The patient asked to call her or daughter. The senior mortgage underwriter explained that she could call them in the morning. The patient then asked what time it was and was surprised to find that it was one o'clock in the morning. The patient stated no wonder I'm so tired . The senior mortgage underwriter showed her to her room and got her a warm blanket. The patient is sleeping at this time.[facility]30 on [id number] patient is Moderately Unstable - Medium risk of patient condition declining or worsening The patient's goals for the shift include take a shower The clinical goals for the shift include safety Problem: Agitation Goal: LTG-Sleeps through the night Outcome: Progressing Problem: Anxiety Goal: STG-Cooperates with evaluations from physicians/RNs Outcome: Progressing Problem: Confusion Goal: LTG-Take medications as prescribed Outcome: Progressing Goal: LTG-Interact appropriately within social settings Outcome: ProgressingNormalUniversclevel[facility]30The patient is Moderately Stable - Low risk of patient condition declining or worsening The patient's goals for the shift include take a shower The clinical goals for the shift include safety Problem: Anxiety Goal: STG-Cooperates with evaluations from physicians/RNs Outcome: Progressing Goal: STG-Can demonstrate or identify two relaxation techniques Outcome: Progressing Problem: Confusion Goal: STG-Accepts redirection without escalation Outcome: Progressing Problem: Psychotic Symptoms Goal: STG-Differs between reality and non-reality Outcome: Progressing Goal: STG-Allows ADL assistance Outcome: ProgressingNormalUniversity [facility]94on Group Topic: Activity Therapy Group Date: 06/12/2024 Start Time: 1400 End Time: 1520 Facilitators: Miladys Kaplan [employer] Department: [facility] Number of Participants: 6 Group Focus: communication, concentration, leisure skills, problem solving, reminiscence, and social skills Treatment Modality: Leisure Development and Patient-Centered Therapy Interventions utilized were active listening, leisure development, problem solving, and reminiscence Purpose: improve communication skills and increase insight or knowledge Name: Donnie Bullock Date of : 1955 MR: [id number] Level of Participation: withdrawn Response: Pt. Did not participate in the group activity. Plan: Pt will be encouraged to participate in recreational therapy groups and activities. Patients Problems: Patient Active Problem List Diagnosis Neurocognitive disorder with Lewy bodies (CMS/HCC) Slow transit constipation Visual hallucinations Paroxysmal supraventricular tachycardia (CMS/HCC) Personal history of COVID-19NormalUniversity of [facility]94Group Topic: Activity Therapy Group Date: 06/12/2024 Start Time: 0945 End Time: 1125 Facilitators: JONATHAN Jorge Department: [facility] Number of Participants: 4 Group Focus: anxiety, check in, clarity of thought, communication, concentration, family, feeling awareness/expression, leisure skills, problem solving, reminiscence, and social skills Treatment Modality: Leisure Development and Patient-Centered Therapy Interventions utilized were active listening, leisure development, problem solving, reminiscence, and support Purpose: express feelings, improve communication skills, and increase insight or knowledge Name: Donnie Bullock Date of : 1955 MR: [id number] Level of Participation: withdrawn Response: Pt. Did not participate in the group activity. Plan: Pt will be encouraged to participate in recreational therapy groups and activities. Patients Problems: Patient Active Problem List Diagnosis Neurocognitive disorder with Lewy bodies (CMS/HCC) Slow transit constipation Visual hallucinations Paroxysmal supraventricular tachycardia (CMS/HCC) Personal history of COVID-19NormalUniversity of [facility] TempleCBC WITH AUTO DIFFERENTIALon [id number] (Bld) [#/Vol]0.03 10*3/uLNormal0.00-0.20 [facility] City HospitalComment on above:Performed By: #### [id number] #### [facility] ([facility]) [address] [place], [place] [address]Akebzkqru/100 WBC (Bld)0.6 %Normal0.0-1.0UnProMedica Fostoria Community HospitalComment on above:Performed By: #### [id number] #### [facility] ([facility]) [address] [place], [place] [address]Qqriyuxzara (Bld) [#/Vol]0.08 10*3/uLNormal0.00-0.50UnProMedica Fostoria Community HospitalComment on above:Performed By: #### [id number] #### [facility] ([facility]) [address] [place] [address]Ayapmrzvthr/100 WBC (Bld)1.7 %Normal0.0-6.0UnProMedica Fostoria Community HospitalComment on above:Performed By: #### [id number] #### [facility] ([facility]) [address] [place], [place] [address]Thyrejvdoeh distribution width (RBC) [Ratio]12.3 %Normal 11.5-15.0UnProMedica Fostoria Community HospitalComment on above:Performed By: #### [id number] #### [facility] ([facility]) [address] [place], [place] [address]KBFTKJDXQPP MEAN CORPUSCULAR HEMOGLOBIN CONCENTRATION (G/DL) BY ADMSLJXPI73.7 g/gFDzpupc19.0-35.0UnProMedica Fostoria Community HospitalComment on above:Performed By: #### [id number] #### [facility] ([facility]) [address] [place], [place] [address]Vnnxnntesa (Bld) [Volume fraction]40.1 %Nwwffa66.0-48.0 [facility] City HospitalComment on above:Performed By: #### [id number] #### [facility] ([facility]) [address] [place], [place] [address]Crqrmwadxq (Bld) [Mass/Vol]13.1 g/uBAqglcz77.0-15.0UnProMedica Fostoria Community HospitalComment on above:Performed By: #### [id number] #### [facility] ([facility]) [address] [place] [address]Zlgxnjsc granulocytes (Bld) [#/Vol]0.01 10*3/uLNormal0.00-0.20 [facility] HospitalComment on above:Performed By: #### [id number] #### [facility] ([facility]) [address] [place] [place], [place] [address]Alzuhucp granulocytes/100 WBC (Bld)0.2 %Normal0.0-1.0UnProMedica Fostoria Community HospitalComment on above:Performed By: #### [id number] #### [facility] ([facility]) [address] [place], [place] [address]Kcjroawosob (Bld) [#/Vol]2.19 10*3/uLNormal1.20-4.00UnProMedica Fostoria Community HospitalComment on above:Performed By: #### [id number] #### [facility] ([facility]) [address] [place] [place], [place] [address]Ydkscwilbaf/100 WBC (Bld)46.2 %High20.0-45.0UnProMedica Fostoria Community HospitalComment on above:Performed By: #### [id number] #### [facility] ([facility]) [address] [place], [place] [address]IVC (RBC) [Entitic mass]29.8 ceKordfc70.0-33.0UnProMedica Fostoria Community HospitalComment on above:Performed By: #### [id number] #### [facility] ([facility]) [address] [place], [place] [address]HGI (RBC) [Entitic vol]91.3 vYOyhpnw11.0-98.0UnProMedica Fostoria Community HospitalComment on above:Performed By: #### [id number] #### [facility] ([facility]) [address] [place] [place], [place] [address]Ofmohjimc (Bld) [#/Vol]0.36 10*3/uLNormal0.10-1.00UnProMedica Fostoria Community HospitalComment on above:Performed By: #### [id number] #### [facility] ([facility]) [address] [place] [address]Fopepwxgy/100 WBC (Bld)7.6 %Normal5.0-12.0UnProMedica Fostoria Community HospitalComment on above:Performed By: #### [id number] #### [facility] ([facility]) [address] [place] [address]Yqyiebabkzz (Bld) [#/Vol]2.07 10*3/uLNormal1.60-7.60UnProMedica Fostoria Community HospitalComment on above:Performed By: #### [id number] #### [facility] ([facility]) [address] [place] [address]Prpweirqols/100 WBC (Bld)43.7 %Uwmmot83.0-72.0UnProMedica Fostoria Community HospitalComment on above:Performed By: #### [id number] #### [facility] ([facility]) [address] [place], [place] [address]TUXH (PER 100 WBCS) BY AUTOMATED COUNT0.0 %Bthozu3BmodngmmqrProMedica Fostoria Community HospitalComment on above:Performed By: #### [id number] #### [facility] ([facility]) [address] [place] [address]WGIHVGJKY (10*3/UL) IN BLOOD AUTOMATED [id number] 10*3/uLNormal 150-400UnProMedica Fostoria Community HospitalComment on above:Performed By: #### [id number] #### [facility] ([facility]) [address] [place] [address]JUN (Bld) [#/Vol]4.39 10*6/uLNormal3.80-5.00UnProMedica Fostoria Community HospitalComment on above:Performed By: #### [id number] #### [facility] ([facility]) [address] [place] [address]XKM (Bld) [#/Vol]4.74 10*3/uLNormal4.00-10.60UnProMedica Fostoria Community HospitalComment on above:Performed By: #### [id number] #### [facility] ([facility]) [address] [place] [address]LUFCEHEWrn [id number] was resting in bed at the beginning of the shift. Patient was compliant with medications and assessment. Patient denied pain, SI or HI. The patient rated depression and anxiety at 5/10. She stated that she is feeling down due to not being able to count on people that she had been sure she could count on. The patient states that she sees the shadow of a little girl to her right side but when she turns that way the little girl disappears.[facility] HealthNURSNOTEPatient A&Ox4 pleasant and cooperative with dispenser operator, medication administration, and ADLs. The patient denies SI/HI, admits to occasionally seeing black ribbons dancing in her visual field, and was surprised that the firetruck dressed as a bee that she wanted to show the RN was no longer present. She rates depression a 5/10 and anxiety a 6/10. Their speech is soft and appropriate, and they describe their mood as still anxious . She states she feels like she rested well. She spent clost to 30% of the day out in the milieu. She was noticeably anxious AEB trembling hands after lunch, and obtained relief from the initial dose of Seroquel started at that time. The patient has eaten atleast 50% of all meals this shift. Safety checks maintained per unit policy. [facility] HealthNURSNOTEPt slept for about 6 hours. No negative behaviors observed. No signs/symptoms of respiratory distress noted. Safety maintained.[facility]30on [id number] patient is Moderately Stable - Low risk of patient condition declining or worsening The patient's goals for the shift include I don't know The clinical goals for the shift include safety Problem: Agitation Goal: LTG-Decrease in targeted symptoms Outcome: Not Progressing Pt is not progressing towards this goal yet.[facility]30The patient is Moderately Unstable - Medium risk of patient condition declining or worsening The patient's goals for the shift include rest The clinical goals for the shift include safety Problem: Agitation Goal: LTG-Take medications as prescribed Outcome: Not Progressing Goal: LTG-Sleeps through the night Outcome: Not Progressing Pt is not progressing towards these goals yet.[facility]94on [id number] Topic: Reality Orientation Group Date: 06/11/2024 Start Time: 101 End Time: 1100 Facilitators: MINDY Hunt Department: [facility] Number of Participants: 3 Group Focus: check in, clarity of thought, and goals/reality orientation Treatment Modality: Individual Therapy, Interpersonal Therapy, Patient-Centered Therapy, and Psychodynamic Psychotherapy Interventions utilized were active listening, confrontation, exploration, reality testing, and support Purpose: express feelings Name: Donnie Bullock Date of : 1955 MR: [id number] Level of Participation: Pt was talking on the phone and practicing a relaxation technique Plan: patient will be encouraged to participate in future groups Patients Problems: Patient Active Problem List Diagnosis Neurocognitive disorder with Lewy bodies (CMS/HCC) Slow transit constipation Visual hallucinations Paroxysmal supraventricular tachycardia (CMS/HCC) Personal history of COVID-19NormalUniverscleveland clinic [facility] [facility] Topic: Reminiscence Group Date: 06/11/2024 Start Time: 08 End Time: 0945 Facilitators: Cydney Peacock OT Department: [facility] Number of Participants: 4 Group Focus: check in, feeling awareness/expression, reminiscence, self-awareness, and self-esteem Treatment Modality: Patient-Centered Therapy and Solution-Focused Therapy Interventions utilized were patient education, problem solving, and reminiscence Purpose: enhance coping skills, regain self-worth, and reinforce self-care Name: Donnie Bullock Date of : 1955 MR: [id number] Level of Participation: moderate Quality of Participation: attentive and cooperative Interactions with others: supportive and asked thoughtful questions Mood/Affect: appropriate Cognition: coherent/clear Progress: Moderate Response: Pt engaged and discussed family, , and goals for herself following discharge. Needed reminders throughout for positivity; worried about the future and seeing her family as often Plan: patient will be encouraged to continue to attend groups Patients Problems: Patient Active Problem List Diagnosis Neurocognitive disorder with Lewy bodies (CMS/HCC) Slow transit constipation Visual hallucinations Paroxysmal supraventricular tachycardia (CMS/HCC) Personal history of COVID-19NormalUniversity of [facility] – TempleNMEMORIAL MEDICAL CENTERNOTE [id number] was cooperative with meds and assessment. Pt was sitting quietly in the dayroom. Pt c/o a headache. PRN Tylenol given. Pt says she was seeing ribbons out the corner of her eyes. Pt was observed wandering around the unit at times. Pt seemed more depressed tonight than last night.[facility] HealthNMEMORIAL MEDICAL CENTERNOTEPatient quietly wanders the unit, needs directed to dayroom table at meal. Eats very small healthy meals.Patient sits quietly and dozes at times. Will initiate conversation first when she needs something.,if not senior mortgage underwriter initiates conversation. Patient did not sundown today.OhioHealthatient encouraged to come out for breakfast. Co-operative with meds and conversation. Requested to talk with this morning. They talked on the phone for 5 minutes, all went well.[facility] NURSNOTEPt slept for about 5 hours. Pt woke up and was found staring at the wall in the corner of her room. No signs/symptoms of respiratory distress noted. Safety maintained.[facility]94on Attestation signed by MINDY Hunt at 06/11/2024 9:22 AM I agree with the content of this note and have no current revisions. Group Topic: Social Work Group Date: 06/10/2024 Start Time: 1015 End Time: 1100 Facilitators: Mindy Weinstein Department: [facility] Number of Participants: 2 Group Focus: check in, feeling awareness/expression, individual meeting, and self-awareness Treatment Modality: Individual Therapy and Patient-Centered Therapy Interventions utilized were exploration and problem solving Purpose: express feelings and increase insight or knowledge Name: Donnie Bullock Date of : 1955 MR: [id number] Level of Participation: active Quality of Participation: attentive, cooperative, drowsy, and offered feedback Interactions with others: supportive Mood/Affect: appropriate, brightens with interaction, and flat Cognition: coherent/clear, confused, and insightful Plan: patient will be encouraged to participate in future groups Patients Problems: Patient Active Problem List Diagnosis Neurocognitive disorder with Lewy bodies (CMS/HCC) Slow transit constipation Visual hallucinations Paroxysmal supraventricular tachycardia (CMS/HCC) Personal history of COVID-19NormalUniverscleveland clinic [facility] of [facility] Topic: Relaxation Group Date: 06/10/2024 Start Time: 0900 End Time: 1000 Facilitators: Cydney Peacock OT Department: [facility] Number of Participants: 7 Group Focus: check in, coping skills, relaxation, self-awareness, and self-esteem Treatment Modality: Leisure Development, Skills Training, and Solution-Focused Therapy Interventions utilized were patient education and problem solving Purpose: enhance coping skills, regain self-worth, and reinforce self-care Name: Donnie Bullock Date of : 1955 MR: [id number] Level of Participation: withdrawn Quality of Participation: Patient withdrawn during group session. No active participation or integration with peers or OT at this time. No active refusal noted. Plan to encourage pt to attend groups and engage with other peers while on the unit. Patients Problems: There is no problem list on file for this patient.NormalUnProMedica Fostoria Community HospitalCOMPREHENSIVE METABOLIC PANELon [id number] [Mass/Vol]3.9 g/dLNormal3.5-5.7UnProMedica Fostoria Community HospitalComment on above:Performed By: #### [id number] #### [facility] ([facility]) [address] [place], [place] [address]NSF [Catalytic activity/Vol]44 U/QVpvdwc70-762OlxkjqfsrwProMedica Fostoria Community HospitalComment on above:Performed By: #### [id number] #### [facility] ([facility]) [address] [place], [place] [address]ZCZ [Catalytic activity/Vol]15 U/LNormal7-52UnProMedica Fostoria Community HospitalComment on above:Performed By: #### LAB17 #### [facility] ([facility]) [address] [place], [place] [address]Ntcsh gap [Moles/Vol]14 mmol/LNormal7-20UnProMedica Fostoria Community HospitalComment on above:Performed By: #### LAB17 #### [facility] ([facility]) [address] [place], [place] [address]JVJ [Catalytic activity/Vol]17 U/CAkssra35-19ZfrcvvpcxgProMedica Fostoria Community HospitalComment on above:Performed By: #### LAB17 #### [facility] ([facility]) [address] [place], [place] [address]Gvgrootzt [Mass/Vol]0.5 mg/dLNormal0.3-1.0UnProMedica Fostoria Community HospitalComment on above:Performed By: #### LAB17 #### [facility] ([facility]) [address] [place], [place] [address]Kcphwkb [Mass/Vol]9.4 mg/dLNormal8.6-10.3UnProMedica Fostoria Community HospitalComment on above:Performed By: #### LAB17 #### [facility] ([facility]) [address] [place], [place] [address]Kktyemsz [Moles/Vol]106 mmol/QQptiet62-613IxdwyeohulProMedica Fostoria Community HospitalComment on above:Performed By: #### LAB17 #### [facility] ([facility]) [address] [place], [place] [address]PY4 [Moles/Vol]24 mmol/ONxsoyq65-38FvjgpkslliProMedica Fostoria Community HospitalComment on above:Performed By: #### LAB17 #### [facility] ([facility]) [address] [place] [address]Kvkngmergc [Mass/Vol]0.69 mg/dLNormal0.60-1.20UnProMedica Fostoria Community HospitalComment on above:Performed By: #### LAB17 #### [facility] ([facility]) [address] [place], [place] [address]SEJYSIKBBB FILTRATION RATE ML/MIN/1.73 SQ M.CMJLVEBOX85.3 mL/min/1.73m*2Normal>60.0UnProMedica Fostoria Community HospitalComment on above: Result Comment: The [facility]???s estimated glomerular filtration rate (eGFR) will no longer include consideration of race in its calculation. The National Kidney Foundation???s eGFR Task Force developed new recommendations for the estimation of the glomerular filtration rate in the [place] They recommend immediate implementation of the new equation refit without the race variable in all laboratories because the calculation does not include race. In addition to not including race in the calculation and reporting, it included diversity in its development, and has acceptable performance characteristics and potential consequences that do not disproportionately affect anyone group of individuals.Performed By: #### [id number] #### [facility] ([facility]) [address] [place], [place] [address]Nwnrvvp [Mass/Vol]99 mg/ySUrclgl57-954UrzgtrajjjProMedica Fostoria Community HospitalComment on above:Performed By: #### LAB17 #### [facility] ([facility]) [address] [place], [place] [address]Kcybodexd [Moles/Vol]4.2 mmol/LNormal3.5-5.1UnProMedica Fostoria Community HospitalComment on above:Performed By: #### LAB17 #### [facility] ([facility]) [address] [place] [address]Owrcgdg [Mass/Vol]6.5 g/dLNormal6.0-8.3UnProMedica Fostoria Community HospitalComment on above:Performed By: #### LAB17 #### [facility] ([facility]) [address] [place] [address]Jcjxqf [Moles/Vol]140 mmol/MKzzjnl613-099OyhxcedbcyProMedica Fostoria Community HospitalComment on above:Performed By: #### LAB17 #### [facility] ([facility]) [address] [place] [address]Akbv nitrogen [Mass/Vol]12 mg/dLNormal7-25UnProMedica Fostoria Community HospitalComment on above:Performed By: #### LAB17 #### [facility] ([facility]) [address] [place] [address]KZPK NITROGEN/CREATININE (MASS RATIO) IN SER/PLAS17.4Normal [facility] HospitalComment on above:Performed By: #### LAB17 #### [facility] ([facility]) [address] [place] [address]WXAOM PANELon 42-30-1740TTDQ/HDL3.3 mg/dLNormalUniGood Samaritan HospitalComment on above:Performed By: #### LAB46 #### [facility] ([facility]) [address] [place] [address]Avtnsgtooqz [Mass/Vol]230 mg/kBIfxz508-434HxmuckqvgvProMedica Fostoria Community HospitalComment on above:Performed By: #### LAB46 #### [facility] ([facility]) [address] [place] [address]Orilvaxxh [Mass/Vol]79 mg/vHDvtbqg47-325EpussdgrmhProMedica Fostoria Community HospitalComment on above:Result Comment: TRIGLYCERIDE REFERENCE RANGE: 20 YEARS AND OLDER CARDIOVASCULAR RISK LESS THAN 150 mg/dL LOW RISK 150 TO 199 mg/dL BORDERLINE RISK 200 mg/dL AND GREATER HIGH RISKPerformed By: #### [id number] #### [facility] ([facility]) [address] [place], [place] [address]Qbnqrewyz [Mass/Vol]144 mg/dLNormal0-160UnProMedica Fostoria Community HospitalComment on above:Performed By: #### LAB46 #### [facility] ([facility]) [address] [place], [place] [address]Ocwpbjioi [Mass/Vol]70 mg/aVXjuzbg11-60MpzcsrnnswProMedica Fostoria Community HospitalComment on above:Performed By: #### LAB46 #### [facility] ([facility]) [address] [place], [place] [address]VPC HDL CHOL. (LDL+VLDL)160NormalUniversWayne HospitalComment on above:Performed By: #### LAB46 #### [facility] ([facility]) [address] [place], [place] [address]RFSWS VLDL-C16 mg/dLNormal0-40UnProMedica Fostoria Community HospitalComment on above:Performed By: #### LAB46 #### [facility] ([facility]) [address] [facility] [place], [place] [address]MXCQCVTWju 23-53-1594WNGNVQKYHf was cooperative but guarded during HS assessment and med pass. Pt denies pain and S.I. Pt denies A/V hallucinations (but says she sees ribbons sometimes). Pt is confused and need reoriented to her surroundings. Pt was resting quietly in bed, and she did not come out of her room to participate in the milieu. Pt refused an HS snack.[facility] NURSNOTEPatient wanting to leave . Had her sit with senior mortgage underwriter and read her admission note. Patient was surprised she was in [place]. She said it was a dream not a hallucination. When she told her about the kids being killed. Patient remembers other incidence and admits she was confused then. Patient tired and wanting to lay down and rest right now.[facility] NURSNOTEHusband called to talk with senior mortgage underwriter.His had called him and he wanted to update senior mortgage underwriter on conversation. His was confused and though we were closing doors and we were kicking her out. She also said her mother was in her bed. Patients mother in 2009. said his always increased confusion at dinner time. Patient in behavioral control this shift. Independent with adl`s and ambulation.Patient refused am group.[facility] HealthNURSNOTEThis report has been cancelled.[facility] HealthNURSNOTEPatient oriented to hospital, month and name. `Well I failed that test.` Rated depression a 5 on scale of 0-10. Patient denies AVH/SI/ and anxiety. Flat affect. Wandering unit after lunch looking for her room. Redirected easily. Needs reminded to use her walker.[facility] NURSNOTEPt slept approximately 7.5 hours last night. No behaviors or issues to report at this time. Safety checks maintained.[facility]30 on [id number] patient is Unstable - High likelihood or risk of patient condition declining or worsening The patient's goals for the shift include The clinical goals for the shift include Problem: Confusion Goal: LTG-Take medications as prescribed Outcome: Progressing Problem: Anxiety Goal: LTG-Decrease worry of fearful thoughts and/or behaviors Outcome: Not ProgressingNormalUniGood Samaritan Hospital30The patient is Moderately Stable - Low risk of patient condition declining or worsening The patient's goals for the shift include unit orientation The clinical goals for the shift include unit orientation and safetyNormal [facility] HospitalHPon [id number] Attestation signed by Irma Greco DO at 06/11/2024 1:04 PM I personally saw and examined the patient on the same date of service as resident/fellow. I discussed the findings and therapeutic plan with the resident/fellow. I agree with the documentation, except for any edits/updates below. Teaching Physician's Revisions: Agree with resident documentation and plan. Patient was re-evaluated on 06/10/24 and agree with documentation. Will stop diazepam to minimize benzodiazepine burden. Will monitor for symptomatology and adjust accordingly. [facility] Unit History and Physical Examination Donnie Bullock is a 68 y.o. female with a past psychiatric history of Generalized Anxiety Disorder and a pertinent past medical history of Paroxysmal supraventricular tachycardia. She presented on 06/09/2024 to the [facility] Unit (as a direct admission from home) for Major Neurocognitive Disorder with Lewy bodies and worsening visual hallucinations. Legal guardian/Decision maker: Vimal Bullock ([phone]) Nursing Facility: N/A, Patient Lives at Home SUBJECTIVE History of Present Illness The history of present illness was provided by the patient's /GI Bullock and by the patient, Donnie Bullock. Mrs. Bullock's cognitive decline started in April,. The patient had COVID-19 in April,, she was never hospitalized and/or in the ICU. She was initially getting lost in familiar areas and forgetting words. Then in April, she wandered out of her home barefoot and only wearing a nightgown, during the night. A week after that first incident, she started telling her that he was not her and that there was another Vmial in the home that that does their dishes and laundry. The patient then started saying that there was a lady living with them. She was seen by Dr. Judy Chino, a psychologist in [place]. She then, approximately 1 year ago, began seeing neurology (Dr. Ambrose at [facility]). She also presented to [facility] for a second opinion in April, (MOCA score at that time was 17/30). The patient previously received services through [facility], this care was reported to be for her major neurocognitive disorder. This week the patient was experiencing worsening hallucinations. On Wednesday (06/05/2024) she reported that she killed her 4 kids and grandchildren. She stated she had their head in bags. The next day (06/06/2024) she was increasingly paranoid and told her that the network professional was coming to take her away and she was packing. She experiences visual hallucinations every day, intermittently. In particular, Mrs. Bullock sees babies suffocating and people living in her house. She also reports seeing dogs as well as squirrels on her husbands shoulder when they watch TV together. Furthermore, patient states when she was hospitalized at [facility] for (depressive symptoms) she saw ribbons in the hospital. She denies auditory hallucinations. Per chart review and history provided today there is also concern for capgras delusions, in the past patient has stated to Mr. Bullock you look like my Vimal, but you are not him. The patient does not become verbally and/or physically aggressive. She is exit seeking and left her house once in recent times. The patient exhibits signs and symptoms of worsening anxiety in recent times. She becomes very restless when anxious and paces around her home. The patient reports she is afraid when she feels lost. She struggles with recent and remote memory. Her memory, attention and concentration fluctuates. Mrs. Bullock has struggled with constipation her entire life. Patient is described as slurring her words at times and having word finding difficulty. No aphasia. Mrs. Bullock experienced worsening rigidity and attends physical therapy 2 times a week. She has an unsteady, shuffling gait with decreased arm swinging. She has orthostatic hypotension. She does not have trouble falling asleep. She is awake 7-8 times during the night, to use the restroom. She has vivid dreams. No dream re-enactment. No physical aggression and/or sleep walking during the night. Patient dresses self and showers self. Once a week daughter in law helps her bathe. (Vimal) does the cooking and cleaning, laundry, finances and medication management. She does not drive (stopped driving in April,). The patient was ambulating with a cane and then did not want to use it anymore. Now she walks for 10 mins at a time on her own. No recent falls. No head trauma. She is able to feed self and usually toilets by self (she was incontinent in the past). Patient/Collateral reports th (more content not included)...[facility] HealthNURSNOTEon [id number] was calm and cooperative with assessment and HS med pass. Pt denies of SI/HI/AV hallucinations. Patient denies of pain and SOB. No behaviorals nor any other issues to report at this time. Safety checks maintained.[facility] HealthCNPNon [id number] ([facility]) KOBEDONNIE Richardson ([id number]) 1955 F Date Time Provider Department 05/26/24 SERA KILLIAN During your visit today, we recorded the following information about you: Sera Killian APRN.ELIANE 05/26/2024 6:35 PM Signed Call to spouse [...] Will follow up next week. Sera Killian APRN.Rose Cox 05/29/2024 12:16 PM Signed Spouse, Vimal SANDERS on [facility] Nurse Line on 05/26 @2:07P. Pt name and verified 1955. Vimal states pt is shaking bad and really anxious. Please call back at . Thank you, Ivette Ferreira, RN 05/29/2024 1:46 PM Signed Spoke with [...] brain disc will be picked tomorrow from [facility] and Vimal will mail it to Sera Killian APRN, COFFEE SHOP AIDE. - Vimal was advised to keep our office updated. Ivette Kerr RN Allergies As of Date: 05/26/2024 (No Known Allergies) Date Reviewed: 04/19/2024 Reviewed by: Francie Lira RN - Fully Assessed Reason for Visit: Called Back [4468] Patient Question [5437] Cmt: Spouse requesting a return phone call [...] 04/19/2024 Encounter Status:Closed by SERA KILLIAN on 05/30/24NoC[facility] UA (CLEAN/CATCH) MICROSCOPIC IF INDICATEon [id number] URINENegativeNEGATIVENOMS HealthcareBLOOD URINETRACE-INEGATIVENOMS Healthcare Clarity (U)CLEARCLEARNOMS HealthcareColor (U)YELLOWYELLOWNOMS HealthcareGLUCOSE URINE UANegativeNEGATIVE mg/dLNOMS HealthcareInterpretation and review of laboratory resultsAbnormalNOMS HealthcareKetones Ql (U)TRACEAbnormalNEGATIVE mg/dLNOMS HealthcareLeukocyte esterase Test strip Ql (U)NegativeNEGATIVENOMS HealthcareNITRITE URINENegativeNEGATIVENOMS HealthcarepH (U)6.0 [pH]5.0 - 9.0 NOMS HealthcarePROTEIN URINENegativeNEG/TRACE mg/dLNOMS HealthcareSPECIFIC GRAVITY URINE>=1.421Eefuaotm5.005 - 1.025NOMS HealthcareURINE MICROSCOPIC INDICATEDYESNOMS HealthcareUROBILINOGEN URINE0.2 EU/dL0.2 - 1.0 EU/dLNOMS HealthcareCLINISYNCNOMS HealthcareCNPNon [id number] (EDUARDONga) DONNIE BULLOCK ([id number]) 1955 F Date Time Provider Department 05/15/24 SERA KILLIAN During your visit today, we recorded the following information about you: Rose Baldwin 05/15/2024 3:22 PM Signed Spouse, Carlos SANDERS on [facility] Nurse Line on 05/15 @2:59P. Pt [...] address his concerns. JOSÉ ANTONIO Hernandez Terri, RN 05/16/2024 1:58 PM Signed Second Attempt Voice message left for Vimal that someone from our office will attempt to reach out to him on the next business day, 05/18/2024. Advised that he may send a [employer] Chart Message. JOSÉ ANTONIO Hernandez Terri, RN [...] with Sera. JOSÉ ANTONIO Hernandez Christine F, APRN.CNP 05/22/2024 2:11 PM Signed OG call to spouse, discussion held. We agreed to continue the taper of Haldol as originally ordered. And add Donepezil (Aricept) 5 mg daily after breakfast. Sera Killian APRN.ELIANE Allergies As of Date: 05/15/2024 (No Known Allergies) Date Reviewed: 04/19/2024 Reviewed by: Francie Lira RN - Fully Assessed Reason for Visit: Patient Question [0467] Patient Update [1234] Cmt: Spouse requesting to [...] 04/19/2024 Encounter Status:Closed by SERA KILLIAN on 05/22/24[facility] HospitalJessie [id number] ([facility]) DONNIE BULLOCK ([id number]) 1955 F Date Time Provider Department 04/25/24 [...] 04/19/2024 Encounter Status:Closed by SERA KILLIAN on 04/25/24[facility] HospitalMARKELTelephone ([facility]) DONNIE BULLOCK ([id number]) 1955 F Date Time Provider Department 04/25/24 [...] 04/19/2024 Encounter Status:Closed by FRANCIE LIRA on 04/26/24[facility] [id number] ([facility]) DONNIE BULLOCK ([id number]) 1955 F Date Time Provider Department 04/20/24 SERA KILLIAN [facility] During your visit today, we recorded the [...] 04/19/2024 Encounter Status:Closed by FRANCIE LIRA on 04/21/24[facility] [id number] Visit ([facility]) DONNIE BULLOCK ([id number]) 1955 F Date Time Provider Department 04/19/24 12:30 PM [facility]ILLIAN [facility] During your visit today, we recorded the following information about you: Pulse Blood pressure Weight 76/minute 129/83 73.8 kg Sera Killian, INSPECTOR CIRCUITRY NEGATIVE.COFFEE SHOP AIDE 04/19/2024 5:34 PM Signed Date: April 19, 2024 DONNIE BULLOCK [facility] [place] [address] [facility] INITIAL PATIENT EVALUATION Reason for Consult: Lewy Body Dementia-here for a 2nd opinion I had the pleasure of seeing this 68 year old year old female at the [facility]. The patient is referred by [...] by neurology provider Dr. Rei Cobos at [facility], followed since August 2023. No cognitive testing on file. Formerly followed by psychiatry for LBD/anxiety. Last seen in September 2023. Care was established following her inpatient [facility] hospitalization in April 2023/May 2023. No family history of dementia or Parkinson's Disease. Per spouse and son report: -Lumbar puncture at [facility] September 30, 2023. Work up completed for possible rapidly progressing dementia. -Prior brain imaging (MRI/CT at outside medical systems). -Hallucinations daily (asks her spouse when is Vimal going to come home? ; sees babies; puppies, squirrel on spouse's shoulder, gives sign of peace to people she sees in her home). -Recently discharged from [facility] services 4 months ago. Also previously [...] wanting to live, she was admitted to [facility] for further evaluation. Mobility changes at [...] spouse Agencies involved: none currently-previously followed by [facility] Special Concerns: Hallucinations/Delusions: [...] Financial POA: Spouse will verify-information reviewed Consult [facility]CE[facility] if not completed: role introduced, reviewed national organizations offering support, provided co (more content not included)...Normal [facility] UA (CLEAN/CATCH) MICROSCOPIC IF INDICATEon [id number] URINENegativeNEGATIVENOMS HealthcareBLOOD URINENegative NEGATIVENOMS HealthcareClarity (U)CLEARCLEARNOMS HealthcareColor (U)DK. YELLOW YELLOWNOMS HealthcareGLUCOSE URINE UANegativeNEGATIVE mg/dLNOMS Healthcare Interpretation and review of laboratory resultsAbnormalNOMS HealthcareKetones Ql (U)15 mg/dLAbnormalNEGATIVENOMS HealthcareLeukocyte esterase Test strip Ql (U) NegativeNEGATIVENOMS HealthcareNITRITE URINENegativeNEGATIVENOMS HealthcarepH (U)5.5 [pH]5.0 - 9.0NOMS HealthcarePROTEIN URINETRACENEG/TRACE mg/dLNOMS HealthcareSPECIFIC GRAVITY URINE>=1.391Bsqsryzf3.005 - 1.025NOMS HealthcareURINE MICROSCOPIC INDICATEDNONOMS HealthcareUROBILINOGEN URINE0.2 EU/dL0.2 - 1.0 EU/dLNOMS HealthcareCLINISYNCNOMS HealthcareAerobic Cultureon 00-78-9364Xmopvrw CultureComment tube 2 aerobic and anaerobic Results called [...] Blood Cells Seen Aerobic JAMSHID Charge (PCMIC38) SUSCEPTIBILITY ORGANISM: O:STAEPI ANTIBIOTIC INTERPRETATION JAMSHID Daptomycin S <0.5 Linezolid S <1 Oxacillin S <0.25 Penicillin S <0.03 Trimethoprim/Sulfamethoxazole S <0.5 Vancomycin S 0.5 S = [...] RESISTANT TO ALL B-LACTAM DRUGS. PERFORMED BY: [place] [address] PATHOLOGIST REHABILITATOR ELE SPRING M.D.[facility] Physician GroupComment on above:Performed By: #### GS, CSFCCDIFF, CSF TP, CSF PCR PANEL, CSF GLU, AERC #### [place] [address] USAAutoimmune Encephalitis Profon 54-03-3444Eywlsvtohv Encephalitis ProfNoWilson Medical Center Physician GroupComment on above:Result Comment: See report. Scanned copy available in EMR. PERFORMED BY: [place] [address] PATHOLOGIST REHABILITATOR ELE SPRING M.D.Performed By: #### ENS2 #### [place] [id number] USACSF Creutzfeldt-Loy Diseaseon 25-62-2417Tfqjrqmpyos- Loy DiseaseNormalNegativeThe [facility] Physician GroupComment on above:Order Comment: Comment tube 3Result Comment: See report. Scanned copy available in EMR.Performed By: #### GS, CSFCCDIFF, CSF TP, CSF PCR PANEL, CSF GLU, AERC #### [place] [address] USACSF Specimen StatusNormal.The [facility] Physician Group Comment on above:Order Comment: Comment tube 3Result Comment: Reference lab report sent via fax. Performed at: [facility] Prion Disease Path Surv [address] [facility] Room [address] [place], [place] [id number] Hardwood Finisher: Christy Fernandez PhD, Phone: [phone] PERFORMED BY: [place] [address] PATHOLOGIST REHABILITATOR ELE SPRING M.D.Performed By: #### GS, CSFCCDIFF, CSF TP, CSF PCR PANEL, CSF GLU, AERC #### [address] [address] USACSF PCR Panelon 34-80-3753SJQ PCR PanelComment tube 2 aerobic and anaerobic Comment tube 2 Cytomegalovirus Not detected Cryptococcus neoformans or gattii 9002 Not detected Escherichia coli K1 Not detected Enterovirus Not detected Haemophilus influenzae (reported as H flu) Not detected Human herpesvirus 6 Not detected Herpes simplex virus 1 Not detected Herpes simplex virus 2 DNA [Presence] in Cerebral spinal fluid by YAYA with non- probe detection Not detected Listeria monocytogenes (reported as listeriosis) Not detected Neisseria meningitidis - reported as meningococcal disease Not detected Human parechovirus Not detected Streptococcus pneumoniae - reported at ISP Not detected Group B Strep (Streptococcus agalactiae) Not detected Varicella zoster virus Not detected PERFORMED BY: [place] [address] PATHOLOGIST REHABILITATOR ELE SPRING M.D.NormalHca Florida Starke Emergency Physician GroupComment on above:Performed By: #### GS, CSFCCDIFF, CSF TP, CSF PCR PANEL, CSF GLU, AERC #### [place] [address] USACell Count Differential,CSFon 65-92-9827Nptgalfvio, CSF CloudyCritically abnormalClearThe [facility] UpmcComment on above: Order Comment: Comment tube 1Performed By: #### GS, CSFCCDIFF, CSF TP, CSF PCR PANEL, CSF GLU, AERC #### [place] [address] USAColor, CSFPinkCritically abnormalColorlessSharkey Issaquena Community HospitalComment on above:Order Comment: Comment tube 1Performed By: #### GS, CSFCCDIFF, CSF TP, CSF PCR PANEL, CSF GLU, AERC #### [address] [address] USACSF Supernatant ColorColorlessNormalColorlessSharkey Issaquena Community HospitalComment on above:Order Comment: Comment tube 1Performed By: #### GS, CSFCCDIFF, CSF TP, CSF PCR PANEL, CSF GLU, AERC #### [address] [address] USACSF Volume, Total11.7 mLNormalHca Florida Starke Emergency Physician [facility] HospitalComment on above:Order Comment: Comment tube 1Performed By: #### GS, CSFCCDIFF, CSF TP, CSF PCR PANEL, CSF GLU, AERC #### [address] [address] USALymphocytes, [id number] [facility] Physician [facility] Comment on above:Order Comment: Comment tube 1Result Comment: The reference interval and other method performance specifications have not been established for this body fluid. The test result must be integrated into the clinical context for interpretation.Performed By: #### GS, CSFCCDIFF, CSF TP, CSF PCR PANEL, CSF GLU, AERC #### [address] [address] USAMonocytes, [id number] [facility] Physician GroupComment on above:Order Comment: Comment tube 1Result Comment: The reference interval and other method performance specifications have not been established for this body fluid. The test result must be integrated into the clinical context for interpretation.Performed By: #### GS, CSFCCDIFF, CSF TP, CSF PCR PANEL, CSF GLU, AERC #### [facility] [address] [place] [address] USANeutrophils, QTM48KcesqlZdhAdventHealth Palm Coast Physician Group Comment on above:Order Comment: Comment tube 1Result Comment: The reference interval and other method performance specifications have not been established for this body fluid. The test result must be integrated into the clinical context for interpretation.Performed By: #### GS, CSFCCDIFF, CSF TP, CSF PCR PANEL, CSF GLU, AERC #### [facility] [address] [place] [address] USARBC, [id number] [place] Physician GroupComment on above:Order Comment: Comment tube 1Result Comment: The reference interval and other method performance specifications have not been established for this body fluid. The test result must be integrated into the clinical context for interpretation.Performed By: #### GS, CSFCCDIFF, CSF TP, CSF PCR PANEL, CSF GLU, AERC #### [facility] [address] [place] [address] USATNC, CSF2 /uLNormal0-5The [facility] Physician GroupComment on above:Order Comment: Comment tube 1Performed By: #### GS, CSFCCDIFF, CSF TP, CSF PCR PANEL, CSF GLU, AERC #### [facility] [address] [place] [address] USATotal Count, QSK12YalfsyDqwWilson Medical Center Physician Group Comment on above:Order Comment: Comment tube 1Performed By: #### GS, CSFCCDIFF, CSF TP, CSF PCR PANEL, CSF GLU, AERC #### [facility] [address] [place] [address] USATube Number Tested, CSFTube Number: 1NormalThe [facility] Physician GroupComment on above:Order Comment: Comment tube 1Result Comment: PERFORMED BY: [place] [address] PATHOLOGIST REHABILITATOR ELE SPRING M.D.Performed By: #### GS, CSFCCDIFF, CSF TP, CSF PCR PANEL, CSF GLU, AERC #### [place] [address] USACell Count Differential,CSF #2on 76-17-5387Lxqwpigxvx, CSF ClearNormalClearThe [facility] Physician GroupComment on above:Order Comment: Comment tube 3Performed By: #### GS, CSFCCDIFF, CSF TP, CSF PCR PANEL, CSF GLU, AERC #### [place] [address] USAColor, CSFColorlessNormalColorlessHca [facility] Emergency Physician [facility] HospitalComment on above:Order Comment: Comment tube 3Performed By: #### GS, CSFCCDIFF, CSF TP, CSF PCR PANEL, CSF GLU, AERC #### [place] [id number] USACSF Supernatant ColorColorlessNormalColorlessHca Florida [facility] Emergency Physician [facility] HospitalComment on above:Order Comment: Comment tube 3Performed By: #### GS, CSFCCDIFF, CSF TP, CSF PCR PANEL, CSF GLU, AERC #### [address] [address] USACSF Volume, Total11.7 mLNormalHca Florida Starke Emergency Physician GroupComment on above:Order Comment: Comment tube 3Performed By: #### GS, CSFCCDIFF, CSF TP, CSF PCR PANEL, CSF GLU, AERC #### [address] [address] USALymphocytes, [id number] [facility] Physician [facility] Comment on above:Order Comment: Comment tube 3Result Comment: The reference interval and other method performance specifications have not been established for this body fluid. The test result must be integrated into the clinical context for interpretation.Performed By: #### GS, CSFCCDIFF, CSF TP, CSF PCR PANEL, CSF GLU, AERC #### [place] [address] USAMonocytes, [id number] Palm Coast Physician GroupComment on above:Order Comment: Comment tube 3Result Comment: The reference interval and other method performance specifications have not been established for this body fluid. The test result must be integrated into the clinical context for interpretation.Performed By: #### GS, CSFCCDIFF, CSF TP, CSF PCR PANEL, CSF GLU, AERC #### [facility] [address] [place] [address] USANeutrophils, MVO4GwimzePjfAdventHealth Palm Coast Physician Group Comment on above:Order Comment: Comment tube 3Result Comment: The reference interval and other method performance specifications have not been established for this body fluid. The test result must be integrated into the clinical context for interpretation.Performed By: #### GS, CSFCCDIFF, CSF TP, CSF PCR PANEL, CSF GLU, AERC #### [facility] [address] [place] [address] USARBC, [id number] /uLNoWilson Medical Center Physician GroupComment on above:Order Comment: Comment tube 3Result Comment: The reference interval and other method performance specifications have not been established for this body fluid. The test result must be integrated into the clinical context for interpretation.Performed By: #### GS, CSFCCDIFF, CSF TP, CSF PCR PANEL, CSF GLU, AERC #### [facility] [address] [place] [address] USATNC, CSF1 /uLNormal0-5The [facility] Physician GroupComment on above:Order Comment: Comment tube 3Performed By: #### GS, CSFCCDIFF, CSF TP, CSF PCR PANEL, CSF GLU, AERC #### [facility] [address] [place] [address] USATotal Count, WXQ3ZcakwgZsiWilson Medical Center Physician Group Comment on above:Order Comment: Comment tube 3Performed By: #### GS, CSFCCDIFF, CSF TP, CSF PCR PANEL, CSF GLU, AERC #### [facility] [address] [place] [address] USATube Number Tested, CSFTube Number: 4NoWilson Medical Center Physician GroupComment on above:Order Comment: Comment tube 3Result Comment: PERFORMED BY: [place] [address] PATHOLOGIST REHABILITATOR ELE SPRING M.D.Performed By: #### GS, CSFCCDIFF, CSF TP, CSF PCR PANEL, CSF GLU, AERC #### [place] [address] USAGlucose, Spinal Fluidon 20-21-3512Jqjpsac, Spinal Fluid63 mg/dAKfroxn58-23Rmi [facility] Physician GroupComment on above:Order Comment: Comment tube 3Performed By: #### GS, CSFCCDIFF, CSF TP, CSF PCR PANEL, CSF GLU, AERC #### [place] [address] USAGram Stainon 41-68-3115Dtjgwbmgutn observation Gram stain Nom (Unsp spec)Comment tube 2 aerobic and anaerobic Gram Stain Result No Bacteria Seen No White Blood Cells Seen PERFORMED BY: [place] [address] PATHOLOGIST REHABILITATOR ELE SPRING M.D.NormalThe [facility] Physician GroupComment on above:Performed By: #### GS, CSFCCDIFF, CSF TP, CSF PCR PANEL, CSF GLU, AERC #### [place] [id number] USAIR guided lumbar puncture LPon 56-74-7034CX guided lumbar puncture LPSELECT [facility]ICAL [facility] [place] [address] [place] [address] Interventional Radiology Rpt Signed Patient: Donnie Bullock MR#: [id number] [birth year] : 1955 Acct:[id number] Age/Sex: 67 / F ADM Date: 09/30/23 Loc: XD Room: Type: [facility] Attending Dr: Rei Cobos DO Copies to: Rei Cobos DO Ordering Provider: Rei Cobos DO Date of Service: 09/30/23 IR/IR guided lumbar puncture LP: RAPIDLY PROGRESSIVE DEMENTIA IR guided lumbar puncture LP 09/30/2023 7:28 AM SIGNS AND SYMPTOMS: 0.52 [id number] RAPIDLY PROGRESSIVE DEMENTIA INFORMED CONSENT: Reason for [...] Elvis Mae M.D.09/30/2023 1:23 PM Dictation Location: [place] [address] Transcribed By: [facility] 09/30/231322 Dictated By: Elvis Mae II, MD 09/30/231320 Signed By: 09/30/23 132[facility] Physician GroupLon 17-18-6300BQmsqcfwo: [id number] Received: 09/30/23 Status: ZACK Larsen Num: [id number] Spec Type: Cytology Subm Dr: Rei Cobos DO Tissues: A CSF (CSF) Procedures: Cyto Prepstain, DIFF QWIK, PAPSTN Age/ Patient Sex Location Account Attending Physician Donnie Bullock 67/F XD [id number] Rei Cobos DO SPEC NUM: [id number] RECD: 09/30/23 STATUS: ZACK LARSEN NUM: [id number] JAY: 09/30/[address]: Rei Cobos DO ENTERED: 09/30/[address]: SPEC TYPE: Cytology DEPT: CNG ENTERED BY: [id number] RECV BY: [id number] ORDERED: Cyto Prepstain, DIFF QWIK, PAPSTN ORDERED: [...] cytospin slides are prepared. (CC/nh) CPT Codes 63201 Specimen: [id number] Received: 09/30/23 Status: ZACK Larsen Num: [id number] Spec Type: Cytology Subm Dr: Rei Cobos DO Tissues: A CSF (CSF) Procedures: Cyto Prepstain, DIFF QWIK, PAPSTN Patient: Donnie Bullock [id number] (Continued) Signed (signature on file) Camden-Guille Marie MD 10/03/[address] [place] [address] Physician GroupTotal Protein, Spinal Fluidon 09-30-2023 Total Protein, Spinal Fluid35 mg/pBJkitgj88-13Dyp [facility] Physician Group Comment on above:Order Comment: Comment tube 3Result Comment: PERFORMED BY: [address] [address] PATHOLOGIST REHABILITATOR ELE SPRING M.D.Performed By: #### GS, CSFCCDIFF, CSF TP, CSF PCR PANEL, CSF GLU, AERC #### [facility] [address] [place] [address] USACholesterol [Mass/volume] in Serum or PlasmaOrdered By: Sridhar Hoffman on 46-28-6438Mazeldwkkec [Mass/Vol]205 mg/lELxwq100-640GrmxqwqaaPromedica Bay Park HospitalComment on above:Chol less than 200 mg/dl low riskChol 201-239 mg/dl borderline riskChol 240 mg/dl and greater high riskResult Comment: Chol less than 200 mg/dl low risk Chol 201-239 mg/dl borderline risk Chol 240 mg/dl and greater high riskPerformed By: #### GS, CSFCCDIFF, CSF TP, CSF PCR PANEL, CSF GLU, AERC #### [facility] [address] [place] [address] USACholesterol in LDL Calc [Mass/Vol]Ordered By: Sridhar Hoffman on 52-20-5531Gprvuquiruo in LDL [Mass/Vol]122 mg/dL0-100Prom[facility]ica Bay Park HospitalComment on above:LDL ATP III CLASSIFICATIONLDL less than 100 mg/dL OptimalLDL 100-129 mg/dL Near or above xoiipkhFYS083-609 mg/dL Borderline highLDL 160-189 mg/dL HighLDL greater than 189 mg/dL Very high Cholesterol in VLDL Calc [Mass/Vol]Ordered By: Sridhar Hoffman on 09-15-2023 Cholesterol in VLDL [Mass/Vol]20 mg/dLPromedica Bay Park HospitalECG 12 lead ECGon 92-57-6459UOD 12 lead ECGSELECT [facility]ICAL SPECIAL[facility] [place] [address] [place] [address] Electrocardiograph Report Signed Patient: Donnie Bullock MR#: [id number] [birth year] : 1955 Acct:[id number] Age/Sex: 67 / F ADM Date: 09/14/23 Loc: Room: [address] [place] [address] Type: ADM IN Attending Dr: Sridhar Hoffman [...] change was found Confirmed by YOLA ROGERS [facility] ([id number]) on 09/15/2023 3:08:00 PM Referred By: Electronically Signed By:DESTINEE ACEVES MD [facility] Transcribed By: MUS Signed By Destinee Aceves MD, FACC 09/15/23 1508NoWilson Medical Center Physician GroupLipid Panelon 42-07-0590FTT Cholesterol,Acduzaxtoz969 mg/dLHigh0-100The [facility] Physician GroupComment on above:Result Comment: LDL ATP III CLASSIFICATION LDL less than 100 mg/dL Optimal LDL 100-129 mg/dL Near or above optimal LDL 130-159 mg/dL Borderline high LDL 160-189 mg/dL High LDL greater than 189 mg/dL Very highPerformed By: #### GS, CSFCCDIFF, CSF TP, CSF PCR PANEL, CSF GLU, AERC #### [facility] [address] [place] [address] USATriglyceride w/Kwalmt216 mg/dLNormal0-149[facility] Physician GroupComment on above:Result Comment: TRIG ATP III CLASSIFICATION TRIG less than 150 mg/dL Normal TRIG 150-199 mg/dL Borderline high TRIG 200-500 mg/dL High TRIG greater than 500 mg/dL Very high Standard traceable to the Center for Disease Conrtrol and Prevention (CDC) test method.Performed By: #### GS, CSFCCDIFF, CSF TP, CSF PCR PANEL, CSF GLU, AERC #### [facility] [address] [place] [address] USAVLDL IJJWNXDTOUY06 mg/dLNoWilson Medical Center Physician GroupComment on above:Performed By: #### GS, CSFCCDIFF, CSF TP, CSF PCR PANEL, CSF GLU, AERC #### [facility] [address] [place] [address] USASerum or plasma high density lipoprotein (HDL) cholesterol measurementOrdered By: Sridhar Hoffman on 18-38-6007Zwkxbyszzqj in HDL [Mass/Vol]62 mg/hZIdkdcz32-87KfalkonqzPromedica Bay Park HospitalComment on above: HDL CHOL ATP-III CLASSIFICATION Cardiovascular RiskHDL > or equal to 60 mg/dL LOWHDL < 40 mg/dL HIGHResult Comment: HDL CHOL ATP-III CLASSIFICATION Cardiovascular Risk HDL > or equal to 60 mg/dL LOW HDL < 40 mg/dL HIGHPerformed By: #### GS, CSFCCDIFF, CSF TP, CSF PCR PANEL, CSF GLU, AERC #### [place] [address] USASerum or plasma total cholesterol/high density lipoprotein (HDL) cholesterol mass ratOrdered By: Sridhar Hoffman on 09-15-2023 Cholesterol.total/Cholesterol in HDL [Mass ratio]3.3 {ratio}Normal<5.0Promedica Bay Park HospitalComment on above:Performed By: #### GS, CSFCCDIFF, CSF TP, CSF PCR PANEL, CSF GLU, AERC #### [facility] [address] [place] [id number] USAThyroid Stim Hormone w/Rflxon 04-65-5207Mzkaqsr Stim Hormone w/Rflx3.99 u[iU]/mLNormal0.45-5.33The [facility] Physician GroupComment on above:Performed By: #### GS, CSFCCDIFF, CSF TP, CSF PCR PANEL, CSF GLU, AERC #### [facility] [address] [place] [address] USAThyrotropin [Units/volume] in Serum or PlasmaOrdered By: Sridhar Hoffman on 97-59-4932NZI Qn3.99 m[IU]/L0.45-5.33Promedica Bay Park HospitalTriglyceride [Mass/volume] in Serum or PlasmaOrdered By: Sridhar Hoffman on 88-93-9482Xtrmbsqpnfpz [Mass/Vol]103 mg/dL0-149Prom[facility] Park HospitalComment on above:TRIG ATP III CLASSIFICATIONTRIG less than 150 mg/dL NormalTRIG 150-199 mg/dL Borderline highTRIG 200-500 mg/dL High TRIG greater than 500 mg/dL Very highStandard traceable to the Center for Disease Co nrtrol and Prevention (CDC) test method.Vitamin D 25 Hydroxy Totalon 09-15-2023 Vitamin D 25 Hydroxy Total22.0 ng/iYXzj34-887Xfo [facility] Physician Group Comment on above:Result Comment: VITAMIN D STATUS 25(OH)VITAMIN D RANGE (ng/mL) Deficient <20 Insufficient 20 to <30 Sufficient 30 to 100 Reference: Shaq MF,Monica NC, Fabrizio , et al. Evaluation,treatment, and prevention of vitamin D deficiency; an Endocrine Society clinical practice guideline. JCEM. 2010; 96(7):1911-30. PERFORMED BY: [facility] [address] [place] [address] PATHOLOGIST REHABILITATOR ELE SPRING M.D.Performed By: #### GS, CSFCCDIFF, CSF TP, CSF PCR PANEL, CSF GLU, AERC #### [facility] [address] [place] [address] USAVitamin D+Metabolites [Mass/volume] in Serum or Plasma Ordered By: Sridhar Hoffman on 65-46-9000Ghllpuv D+Metabolites [Mass/Vol]22.0 ng/mC30-231YpabdfkzlPromedica Bay Park HospitalComment on above:VITAMIN D STATUS 25(OH)VITAMIN D RANGE (ng/mL) Deficient <20 Insufficient 20 to <14Qmyqkbayxq52 to 100Reference: Shaq WILSON,Monica PRESLEY, Fabrizio , et al. Evaluation,treatment, and prevention of vitamin D deficiency; an Endocrine Society clinical practice guideline. JCEM. 2010; 96(7):1911-30.Alanine aminotransferase [Enzymatic activity/volume] in Serum or PlasmaOrdered By: Good Garcia on 01-60-4239SRD [Catalytic activity/Vol]20 U/LNormal7-52Promedica Bay Park HospitalComment on above:Performed By: #### GS, CSFCCDIFF, CSF TP, CSF PCR PANEL, CSF GLU, AERC #### [facility] [address] [place] [id number] USAAlbumin [Mass/volume] in Serum or Plasma by Bromocresol green (BCG) dye binding methoOrdered By: Good Garcia on 53-92-5708Thqxqvx BCG dye [Mass/Vol]4.0 g/dL3.5-5.7FHolzer Health SystemAlkaline phosphatase [Enzymatic activity/volume] in Serum or PlasmaOrdered By: Good Garcia on 09-13-8146ZIP [Catalytic activity/Vol]43 U/SCyvvhk57-393KtxorrkedPromedica Bay Park HospitalComment on above:Performed By: #### GS, CSFCCDIFF, CSF TP, CSF PCR PANEL, CSF GLU, AERC #### [facility] [address] [place] [id number] USAAmphetamine Screen Ql (U)Ordered By: Good Garcia on 21-51-2763Xnosnvryxsva Ql (U)NegativeNegativePromedica Bay Park Hospital Aspartate aminotransferase [Enzymatic activity/volume] in Serum or PlasmaOrdered By: Good Garcia on 67-22-9799EOJ [Catalytic activity/Vol]18 U/DNebisc78-24 [facility] Park HospitalComment on above:Performed By: #### GS, CSFCCDIFF, CSF TP, CSF PCR PANEL, CSF GLU, AERC #### [facility] [address] [place] [id number] USAAutomated basophil %Ordered By: Good Garcia on 09-14-2023 Basophils/100 WBC (Bld)0.6 %Normal.Prom[facility] Park HospitalComment on above:Performed By: #### GS, CSFCCDIFF, CSF TP, CSF PCR PANEL, CSF GLU, AERC #### [place] [address] USAAutomated basophil countOrdered By: Good Garcia on 33-21-8750Hcmpvwxzk (Bld) [#/Vol]0.0 10*3/uLNormal0.0-0.2FHolzer Health SystemComment on above:Result Comment: PERFORMED BY: [place] [address] PATHOLOGIST REHABILITATOR ELE SPRING M.D.Performed By: #### GS, CSFCCDIFF, CSF TP, CSF PCR PANEL, CSF GLU, AERC #### [place] [address] USAAutomated blood monocyte countOrdered By: Good Garcia on 68-27-0536Daalpjcoj (Bld) [#/Vol]0.4 10*3/uLNormal0.0-0.8Prom[facility] Park HospitalComment on above:Performed By: #### GS, CSFCCDIFF, CSF TP, CSF PCR PANEL, CSF GLU, AERC #### [place] [address] USAAutomated eosinophil %Ordered By: Good Garcia on 62-21-4195Skijkzprdcj/100 WBC (Bld)1.0 %Normal.[facility] Comment on above:Performed By: #### GS, CSFCCDIFF, CSF TP, CSF PCR PANEL, CSF GLU, AERC #### [place] [address] USAAutomated eosinophil countOrdered By: Good Garcia on 36-66-4028Sotpffnfstw (Bld) [#/Vol]0.1 10*3/uLNormal0.0-0.45Prom[facility]ica [facility] Park HospitalComment on above:Performed By: #### GS, CSFCCDIFF, CSF TP, CSF PCR PANEL, CSF GLU, AERC #### [facility] [address] [place] [id number] USAAutomated monocyte %Ordered By: Good Garcia on 09-14-2023 Monocytes/100 WBC (Bld)7.5 %Normal.[facility] Park HospitalComment on above:Performed By: #### GS, CSFCCDIFF, CSF TP, CSF PCR PANEL, CSF GLU, AERC #### [facility] [address] [place] [address] USAAutomated neutrophil %Ordered By: Good Garcia on 64-32-3833Qwsnilehjrm/100 WBC (Bld)59.4 %Normal.[facility] Park HospitalComment on above:Performed By: #### GS, CSFCCDIFF, CSF TP, CSF PCR PANEL, CSF GLU, AERC #### [facility] [address] [place] [id number] USAAutomated urine color determinationOrdered By: Good Garcia on 18-34-4452Vwvpt (U)YellowNormalYellowPromedica Bay Park Hospital Comment on above:Order Comment: Comment tube 3Performed By: #### GS, CSFCCDIFF, CSF TP, CSF PCR PANEL, CSF GLU, AERC #### [facility] [address] [place] [address] USABarbiturates [Presence] in Urine by Screen methodOrdered By: Good Garcia on 16-15-9107Cszvdztrgufj Screen Ql (U)NegativeNegative [facility] HospitalBenzodiazepines Screen Ql (U)Ordered By: Good Garcia on 09-04-5018Jsjradkmhcgpulm Ql (U)NegativeNegativePromedica Bay Park HospitalBenzoylecgonine [Presence] in Urine by Screen method Ordered By: Good Garcia on 82-26-4741Yhjqoyjrvsqzsvj Screen Ql (U)Negative NegativePromedica Bay Park HospitalBilirubin Test strip Ql (U)Ordered By: Good Garcia on 39-55-8351Btkeyhywg Ql (U)NegativeNegativePromedica Bay Park HospitalBilirubin.total [Mass/volume] in Serum or PlasmaOrdered By: Goodsam Garcia on 12-70-3144Vfjmhnboe [Mass/Vol]0.4 mg/dLNormal0.3-1.0[facility] HospitalComment on above:Performed By: #### GS, CSFCCDIFF, CSF TP, CSF PCR PANEL, CSF GLU, AERC #### [facility] [address] [place] [id number] USACalcium [Mass/volume] in Serum or PlasmaOrdered By: Good Garcia on 15-71-0725Ykypuqq [Mass/Vol]9.8 mg/dLNormal8.6-10.3FHolzer Health SystemComment on above:Performed By: #### GS, CSFCCDIFF, CSF TP, CSF PCR PANEL, CSF GLU, AERC #### [facility] [address] [place] [address] USACannabinoids [Presence] in Urine by Screen methodOrdered By: Good Garcia on 89-37-4771Ypkfdsdhccnu Screen Ql (U)NegativeNegative [facility] HospitalComment on above:These are unconfirmed results and should not be used for legal purposes. Drug Cut-Off Concentration: AMPH 1000 ng/mL GABRIELA 200 ng/mL SIVA 200 ng/mL COCM 300 ng/mL OP 300 ng/mL PCP 25 ng/mL THC 20 ng/mLCarbon dioxide, total [Moles/volume] in Serum or PlasmaOrdered By: Good Garcia on 23-55-2601MU0 [Moles/Vol]31.2 mmol/LHigh21.0-31.0[facility] HospitalComment on above:Performed By: #### GS, CSFCCDIFF, CSF TP, CSF PCR PANEL, CSF GLU, AERC #### [facility] [address] [place] [address] USAChloride [Moles/volume] in Serum or PlasmaOrdered By: Good Garcia on 33-93-7938Qqtolcla [Moles/Vol]103 mmol/NLuodbw54-066SivkfjfqhPromedica Bay Park HospitalComment on above:Performed By: #### GS, CSFCCDIFF, CSF TP, CSF PCR PANEL, CSF GLU, AERC #### [place] [address] USAComplete Blood Count Auto Diffon 78-06-9381Cgkk Corpuscular HGB Conc34.0 g/qRBmmkzt32.0-35.0The [facility] Physician [facility] HospitalComment on above:Performed By: #### GS, CSFCCDIFF, CSF TP, CSF PCR PANEL, CSF GLU, AERC #### [place] [address] USAMonocytes/100 WBC (Bld)16.08 %Normal0.00-20.00The [facility] Physician [facility] HospitalComment on above:Performed By: #### GS, CSFCCDIFF, CSF TP, CSF PCR PANEL, CSF GLU, AERC #### [place] [address] USANRBC%0.1 /100{WBC}Normal0-0.5The [facility] Phys[facility] Comment on above:Performed By: #### GS, CSFCCDIFF, CSF TP, CSF PCR PANEL, CSF GLU, AERC #### [place] [address] USAComprehensive Metabolic Panelon 49-41-4793Qnfraas [Mass/Vol]4.0 g/dLNormal3.5-5.7The [facility] Physician [facility] HospitalComment on above: Performed By: #### GS, CSFCCDIFF, CSF TP, CSF PCR PANEL, CSF GLU, AERC #### [place] [address] USACreatinine Clr Calc Hbeiunfg47.72NormalThe [facility] Physician [facility] HospitalComment on above:Result Comment: PERFORMED BY: [place] [address] PATHOLOGIST REHABILITATOR ELE SPRING M.D.Performed By: #### GS, CSFCCDIFF, CSF TP, CSF PCR PANEL, CSF GLU, AERC #### [place] [address] USAGFR/1.73 sq M.predicted MDRD (S/P/Bld) [Vol rate/Area] mL/min/{1.73_m2}NormalThe [facility] Physician GroupComment on above:Performed By: #### GS, CSFCCDIFF, CSF TP, CSF PCR PANEL, CSF GLU, AERC #### [place] [address] USACreatinine [Mass/volume] in Serum or PlasmaOrdered By: Good Radha on 86-73-9097Fqldkcrdma [Mass/Vol]0.61 mg/dLNormal0.60-1.20 [facility] HospitalComment on above:Performed By: #### GS, CSFCCDIFF, CSF TP, CSF PCR PANEL, CSF GLU, AERC #### [facility] [address] [place] [address] USADrug Screen,Urineon 86-99-8398Izdtskpqbwe Screen,Urine NegativeNormalNegativeThe [facility] Physician GroupComment on above:Performed By: #### GS, CSFCCDIFF, CSF TP, CSF PCR PANEL, CSF GLU, AERC #### [place] [address] USABarbiturate Screen,UrineNegativeNormalNegativeThe [facility] Physician GroupComment on above:Performed By: #### GS, CSFCCDIFF, CSF TP, CSF PCR PANEL, CSF GLU, AERC #### [place] [address] USABenzodiazepines Screen,UrineNegativeNormalNegativeThe [facility] Physician GroupComment on above:Performed By: #### GS, CSFCCDIFF, CSF TP, CSF PCR PANEL, CSF GLU, AERC #### [place] [address] USACannabinoid Screen,UrineNegativeNormalNegativeThe [facility] Physician GroupComment on above:Result Comment: These are unconfirmed results and should not be used for legal purposes. Drug Cut-Off Concentration: AMPH 1000 ng/mL GABRIELA 200 ng/mL SIVA 200 ng/mL COCM 300 ng/mL OP 300 ng/mL PCP 25 ng/mL THC 20 ng/mL PERFORMED BY: [address] [address] PATHOLOGIST REHABILITATOR ELE SPRING M.D.Performed By: #### GS, CSFCCDIFF, CSF TP, CSF PCR PANEL, CSF GLU, AERC #### [place] [address] USACocaine Screen,UrineNegativeNormalNegativeHca Florida Starke Emergency Physician GroupComment on above:Performed By: #### GS, CSFCCDIFF, CSF TP, CSF PCR PANEL, CSF GLU, AERC #### [place] [address] USAOpiate Screen,UrinePositiveHighNegativeHca [facility] Star[facility] Physician [facility] HospitalComment on above:Performed By: #### GS, CSFCCDIFF, CSF TP, CSF PCR PANEL, CSF GLU, AERC #### [place] [address] USAPhencyclidine Screen,UrineNegativeNormalNegativeThe [facility] Physician [facility] HospitalComment on above:Performed By: #### GS, CSFCCDIFF, CSF TP, CSF PCR PANEL, CSF GLU, AERC #### [place] [address] USAErythrocyte distribution width [Ratio] by Automated count Ordered By: Good Garcia on 50-89-1475Hdefdlinjgt distribution width (RBC) [Ratio]13.0 %Jpjfuc26.9-15.3FHolzer Health SystemComment on above: Performed By: #### GS, CSFCCDIFF, CSF TP, CSF PCR PANEL, CSF GLU, AERC #### [place] [address] USAErythrocytes [#/volume] in Blood by Automated countOrdered By: Good Garcia on 57-21-1296EWI (Bld) [#/Vol]3.98 10*6/uLNormal3.60-5.00 [facility] HospitalComment on above:Performed By: #### GS, CSFCCDIFF, CSF TP, CSF PCR PANEL, CSF GLU, AERC #### [place] [address] USAEthanol [Mass/volume] in Serum or PlasmaOrdered By: Good Garcia on 89-81-7750Pyqduqj [Mass/Vol]mg/dLCleveland Clinic Mercy HospitalComment on above:Performed By: #### GS, CSFCCDIFF, CSF TP, CSF PCR PANEL, CSF GLU, AERC #### [facility] [address] [place] [address] USAEthanol [Mass/Vol]TNOhio State Harding Hospital Comment on above:Test not performedEthyl Alcohol Profileon 47-03-8523Xvisqhb EthanolNot performedNoWilson Medical Center Physician GroupComment on above:Result Comment: PERFORMED BY: [facility] [address] [place] [address] PATHOLOGIST REHABILITATOR ELE SPRING M.D.Performed By: #### GS, CSFCCDIFF, CSF TP, CSF PCR PANEL, CSF GLU, AERC #### [facility] [address] [place] [id number] USAGlucose [Mass/volume] in Serum or PlasmaOrdered By: Good Garcia on 62-36-0275Ockjfsn [Mass/Vol]105 mg/mYCjjk38-310Cctzls[address] [place], [place] [address]Comment on above:ADA recommended reference rangeRandom Glucose Reference Range is dependent on time and content of last meal. Glucose of more than 200 mg/dL in a nonstressed, ambulatory subject supports the diagnosisof Diabetes Mellitus.Result Comment: Random Glucose Reference Range is dependent on time and content of last meal. Glucose of more than 200 mg/dL in a nonstressed, ambulatory subject supports the diagnosis of Diabetes Mellitus. ADA recommended reference rangePerformed By: #### GS, CSFCCDIFF, CSF TP, CSF PCR PANEL, CSF GLU, AERC #### [facility] [address] [place] [id number] USAHematocrit [Volume Fraction] of Blood by Automated count Ordered By: Good Garcia on 28-96-3279Ucptpeohte (Bld) [Volume fraction]35.7 % Jeyvux78.0-46.4FHolzer Health SystemComment on above:Performed By: #### GS, CSFCCDIFF, CSF TP, CSF PCR PANEL, CSF GLU, AERC #### [facility] [address] [place] [address] USAHemoglobin [Mass/volume] in BloodOrdered By: Good Garcia on 59-67-7473Qfonqsowkm (Bld) [Mass/Vol]12.1 g/nBWuaniz88.8-15.4FHolzer Health SystemComment on above:Performed By: #### GS, CSFCCDIFF, CSF TP, CSF PCR PANEL, CSF GLU, AERC #### [facility] [address] [place] [address] USAKetones Auto test strip (U) [Mass/Vol]Ordered By: Good Garcia on 08-96-9698Mwiaowq (U) [Mass/Vol]NegativeNegativePromedica Bay Park HospitalLeukocytes [#/volume] corrected for nucleated erythrocytes in Blood by Automated counOrdered By: Good Garcia on 89-21-3302QDX corrected for nucl RBC Auto (Bld) [#/Vol]5.3 10*3/uL3.8-11.6FHolzer Health System Leukocytes [#/volume] in Blood by Automated countOrdered By: Good Garcia on 13-48-4869VNN (Bld) [#/Vol]5.3 10*3/uLNormal3.8-11.6FHolzer Health SystemComment on above:Performed By: #### GS, CSFCCDIFF, CSF TP, CSF PCR PANEL, CSF GLU, AERC #### [facility] [address] [place] [address] USALymphocytes [#/volume] in Blood by Automated countOrdered By: Good Garcia on 64-07-2460Iihndteztoa (Bld) [#/Vol]1.7 10*3/uLNormal1.00-4.8 [facility] HospitalComment on above:Performed By: #### GS, CSFCCDIFF, CSF TP, CSF PCR PANEL, CSF GLU, AERC #### [facility] [address] [place] [address] USALymphocytes/100 leukocytes in Blood by Automated count Ordered By: Good Garcia on 94-50-3398Oqjcqhuiyzu/100 WBC (Bld)31.5 %Normal. [facility] HospitalComment on above:Performed By: #### GS, CSFCCDIFF, CSF TP, CSF PCR PANEL, CSF GLU, AERC #### [facility] [address] [Entitic mass] by Automated countOrdered By: Good Garcia on 87-13-2288HHM (RBC) [Entitic mass]30.4 bpFygqjb64.7-34.3FHolzer Health SystemComment on above:Performed By: #### GS, CSFCCDIFF, CSF TP, CSF PCR PANEL, CSF GLU, AERC #### [facility] [address] Auto (RBC) [Mass/Vol]Ordered By: Good Garcia on 80-88-1568XNPA (RBC) [Mass/Vol]34.0 g/dL32.0-35.0[facility] HospitalMCV [Entitic volume] by Automated countOrdered By: Good Garcia on 63-33-5915QFX (RBC) [Entitic vol]89.6 oGWyicpz05-512TsnostadcPromedica Bay Park HospitalComment on above:Performed By: #### GS, CSFCCDIFF, CSF TP, CSF PCR PANEL, CSF GLU, AERC #### [place] [address] USAMonocyte distribution width [Entitic volume] in Blood by AutomatedOrdered By: Good Garcia on 91-97-3350Cieuvoys distribution width Auto (Bld) [Entitic vol]16.08 %0.00-20.00[facility] HospitalNeutrophils [#/volume] in Blood by Automated countOrdered By: Good Garcia on 09-14-2023 Neutrophils (Bld) [#/Vol]3.1 10*3/uLNormal1.8-7.7FHolzer Health SystemComment on above:Performed By: #### GS, CSFCCDIFF, CSF TP, CSF PCR PANEL, CSF GLU, AERC #### [facility] [address] [place] [id number] USANitrite Test strip Ql (U)Ordered By: Good Garcia on 23-28-8683Veseiea Ql (U)NegativeNegativePromedica Bay Park HospitalNo Panel InformationOrdered By: Good Garcia on 93-03-7154Aggjjsxzw GFR (CKD-EPI)> 60.0 mL/MinPromedica Bay Park HospitalPharmacy Creatinine Clearance (Chem 59.72Prom[facility] HospitalNucleated erythrocytes [Presence] in Blood by Automated countOrdered By: Good Garcia on 84-80-3325Odgfvcvkl RBC Auto Ql (Bld)0.1 /100{WBC}0-0.5FHolzer Health SystemOpiates [Presence] in Urine by Screen methodOrdered By: Good Garcia on 84-65-2850Icmxjow Screen Ql (U)PositiveNegativePromedica Bay Park HospitalPhencyclidine Screen Ql (U) Ordered By: Good Garcia on 81-49-3857Vutjcbdklilbe Ql (U)NegativeNegative [facility] HospitalPlatelet mean volume [Entitic volume] in Blood by Automated countOrdered By: Good Garcia on 59-29-4158Thtsvsqs mean volume (Bld) [Entitic vol]7.3 fLNormal6.3-10.7FHolzer Health SystemComment on above:Performed By: #### GS, CSFCCDIFF, CSF TP, CSF PCR PANEL, CSF GLU, AERC #### [facility] [address] [place] [id number] USAPlatelets [#/volume] in Blood by Automated countOrdered By: Good Garcia on 81-26-5349Mdpdcedpo (Bld) [#/Vol]246 10*3/vTZtytld421-591 [facility] HospitalComment on above:Performed By: #### GS, CSFCCDIFF, CSF TP, CSF PCR PANEL, CSF GLU, AERC #### [facility] [address] [place], [place] [id number] USAPotassium [Moles/volume] in Serum or PlasmaOrdered By: Good Garcia on 72-54-2832Wpmumlcsv [Moles/Vol]3.8 mmol/LNormal3.5-5.1FHolzer Health SystemComment on above:Performed By: #### GS, CSFCCDIFF, CSF TP, CSF PCR PANEL, CSF GLU, AERC #### [facility] [address] [place] [address] USAProtein Auto test strip (U) [Mass/Vol]Ordered By: Good Garcia on 45-77-3860Xnwrvmi (U) [Mass/Vol]NegativeNegativePromedica Bay Park HospitalProtein [Mass/volume] in Serum or PlasmaOrdered By: Good Garcia on 38-35-4436Mhsmyft [Mass/Vol]6.2 g/dLLow6.4-8.9[facility] HospitalComment on above:Performed By: #### GS, CSFCCDIFF, CSF TP, CSF PCR PANEL, CSF GLU, AERC #### [place] [address] USASerum globulin measurement by calculation (mass/volume) Ordered By: Good Garcia on 73-26-8921Egmqrwtw (S) [Mass/Vol]2.2 g/dLNormal [facility] HospitalComment on above:Performed By: #### GS, CSFCCDIFF, CSF TP, CSF PCR PANEL, CSF GLU, AERC #### [facility] [address] [place] [address] USASerum or plasma albumin/globulin mass ratioOrdered By: Good Garcia on 77-90-5275Qcemrgr/Globulin [Mass ratio]1.8 {ratio}Normal [facility] HospitalComment on above:Performed By: #### GS, CSFCCDIFF, CSF TP, CSF PCR PANEL, CSF GLU, AERC #### [facility] [address] [place] [address] USASerum or plasma anion gap determinationOrdered By: Good Garcia on 08-22-0607Leubk gap [Moles/Vol]7.6 mmol/LNormal6.0-15.0[facility] HospitalComment on above:Performed By: #### GS, CSFCCDIFF, CSF TP, CSF PCR PANEL, CSF GLU, AERC #### [facility] [address] [place] [address] USASodium [Moles/volume] in Serum or PlasmaOrdered By: Good Radha on 30-95-8670Aibapa [Moles/Vol]138 mmol/RDfwjia510-836LdpxqpaafPromedica Bay Park HospitalComment on above:Performed By: #### GS, CSFCCDIFF, CSF TP, CSF PCR PANEL, CSF GLU, AERC #### [facility] [address] [place] [address] USASpecific gravity Auto test strip (U) [Rel density]Ordered By: Good Radha on 92-03-2187Sutougyo gravity (U) [Rel density]1.0041.001-1.030 [facility] HospitalUrea nitrogen [Mass/volume] in Serum or Plasma Ordered By: Good Garcia on 12-88-7021Hgkn nitrogen [Mass/Vol]8 mg/dLNormal7-25 [facility] HospitalComment on above:Performed By: #### GS, CSFCCDIFF, CSF TP, CSF PCR PANEL, CSF GLU, AERC #### [facility] [address] [place] [address] USAUrinalysison 20-82-2930Ogittkslaw (U)ClearNormalClearThe [facility] Physician GroupComment on above:Order Comment: Comment tube 3Performed By: #### GS, CSFCCDIFF, CSF TP, CSF PCR PANEL, CSF GLU, AERC #### [place] [address] USABilirubin,UrineNegativeNormalNegativeThe [facility] Physician GroupComment on above:Order Comment: Comment tube 3Performed By: #### GS, CSFCCDIFF, CSF TP, CSF PCR PANEL, CSF GLU, AERC #### [facility] [address] [place] [address] USAGlucose Ql (U)NormalNormalNormalThe [facility] Physician GroupComment on above:Order Comment: Comment tube 3Performed By: #### GS, CSFCCDIFF, CSF TP, CSF PCR PANEL, CSF GLU, AERC #### [place] [address] USAKetones Ql (U)NegativeNormalNegativeThe [facility] Physician GroupComment on above:Order Comment: Comment tube 3Performed By: #### GS, CSFCCDIFF, CSF TP, CSF PCR PANEL, CSF GLU, AERC #### [place] [address] USALeukocyte esterase Test strip Ql (U)NegativeNormalNegative The [facility] Physician GroupComment on above:Order Comment: Comment tube 3 Performed By: #### GS, CSFCCDIFF, CSF TP, CSF PCR PANEL, CSF GLU, AERC #### [place] [address] USANitrite,UrineNegativeNormalNegativeThe [facility] Physician GroupComment on above:Order Comment: Comment tube 3Performed By: #### GS, CSFCCDIFF, CSF TP, CSF PCR PANEL, CSF GLU, AERC #### [place] [address] USAOccult Blood,UrineNegativeNormalNegativeThe [facility] Physician GroupComment on above:Order Comment: Comment tube 3Result Comment: PERFORMED BY: [place] [address] PATHOLOGIST REHABILITATOR ELE SPRING M.D.Performed By: #### GS, CSFCCDIFF, CSF TP, CSF PCR PANEL, CSF GLU, AERC #### [place] [address] USAProtein,UrineNegativeNormalNegativeThe [facility] Physician GroupComment on above:Order Comment: Comment tube 3Performed By: #### GS, CSFCCDIFF, CSF TP, CSF PCR PANEL, CSF GLU, AERC #### [place] [address] USASpecificy [place],Urine1.359Bwzihb2.001-1.030The [facility] Physician GroupComment on above:Order Comment: Comment tube 3Performed By: #### GS, CSFCCDIFF, CSF TP, CSF PCR PANEL, CSF GLU, AERC #### [place] [address] USAUrobilinogen,UrineNormalNormalNormalThe [facility] Physician GroupComment on above:Order Comment: Comment tube 3Performed By: #### GS, CSFCCDIFF, CSF TP, CSF PCR PANEL, CSF GLU, AERC #### [facility] [address] [place] [id number] USAUrine clarity by refractometry automatedOrdered By: Good Garcia on 51-18-1561Hsftcnj Refractometry automated (U)ClearMercy Health Urbana HospitalUrine glucose measurement by automated test strip (mass/volume)Ordered By: Good Garcia on 27-08-8939Ybvidqw Auto test strip (U) [Mass/Vol]Normal mg/dLCleveland Clinic Mercy HospitalUrine hemoglobin detection by automated test stripOrdered By: Good Garcia on 09-14-2023 Hemoglobin Auto test strip Ql (U)NegativeNegCommunity Memorial HospitalUrine leukocyte esterase detection by automated test stripOrdered By: Good Garcia on 86-41-9871Qycwcdneh esterase Auto test strip Ql (U)Negative NegativePromedica Bay Park HospitalUrine pH measurement by automated test stripOrdered By: Good Garcia on 23-46-0802uM (U)7.0 [pH]Normal5.0-9.0[facility] HospitalComment on above:Order Comment: Comment tube 3Performed By: #### GS, CSFCCDIFF, CSF TP, CSF PCR PANEL, CSF GLU, AERC #### [facility] [address] [place] [id number] USAUrobilinogen Auto test strip (U) [Mass/Vol]Ordered By: Good Garcia on 59-99-5871Emotsmcagpnc (U) [Mass/Vol]Normal mg/dLCleveland Clinic Mercy HospitalTBH UA (CLEAN/CATCH) MICROSCOPIC IF INDICATEon 23-08-4537DUZMFITUQ URINENegativeNEGATIVENOMS HealthcareBLOOD URINENegative NEGATIVENOMS HealthcareClarity (U)CLEARCLEARNOMS HealthcareColor (U)LT. YELLOW YELLOWNOMS HealthcareGLUCOSE URINE UANegativeNEGATIVE mg/dLNOMS Healthcare Interpretation and review of laboratory resultsAbnormalNOMS HealthcareKetones Ql (U)NegativeNEGATIVE mg/dLNODC HealthcareLeukocyte esterase Test strip Ql (U) TRACEAbnormalNEGATIVENODC HealthcareNITRITE URINENegativeNEGATIVENODC Healthcare pH (U)5.0 [pH]5.0 - 9.0NODC HealthcarePROTEIN URINENegativeNEG/TRACE mg/dLNODC HealthcareSPECIFIC GRAVITY URINE1.0251.005 - 1.025NODC HealthcareURINE MICROSCOPIC INDICATEDYESNODC HealthcareUROBILINOGEN URINE0.2 EU/dL0.2 - 1.0 EU/dLNODC HealthcareCLINISYNCNOMS HealthcareAlanine aminotransferase [Enzymatic activity/volume] in Serum or PlasmaOrdered By: Robert Caruso on 92-54-7608ARP [Catalytic activity/Vol]14 U/L7-52Prom[facility] HospitalAlbumin [Mass/volume] in Serum or Plasma by Bromocresol green (BCG) dye binding metho Ordered By: Robert Caruso on 21-85-2135Ixcngfu BCG dye [Mass/Vol]4.4 g/dL3.5-5.7 [facility] HospitalAlkaline phosphatase [Enzymatic activity/volume] in Serum or PlasmaOrdered By: Robert Caruso on 83-83-8750BXX [Catalytic activity/Vol]48 U/H44-926GeqinvztwPromedica Bay Park HospitalAmphetamine Screen Ql (U)Ordered By: Robert Caruso on 42-72-3958Qrdooitgspbn Ql (U)Negative NegativePromedica Bay Park HospitalAspartate aminotransferase [Enzymatic activity/volume] in Serum or PlasmaOrdered By: Robert Caruso on 25-65-9036UET [Catalytic activity/Vol]21 U/Z37-10RsunmutooPromedica Bay Park HospitalBarbiturates [Presence] in Urine by Screen methodOrdered By: Robert Caruso on 05-25-2023 Barbiturates Screen Ql (U)NegativeNegativePromedica Bay Park Hospital Basophils Auto (Bld) [#/Vol]Ordered By: Robert Caruso on 27-42-8176Uzznofjjc (Bld) [#/Vol]0.0 10*3/uL0.0-0.2FHolzer Health SystemBasophils/100 WBC Auto (Bld)Ordered By: Robert Caruso on 06-54-1198Brsibvsbz/100 WBC (Bld)0.5 %. [facility] HospitalBenzodiazepines Screen Ql (U)Ordered By: Robert Caruso on 03-79-9108Jdwejsglmngwuaq Ql (U)NegativeNegCommunity Memorial HospitalBenzoylecgonine [Presence] in Urine by Screen methodOrdered By: Robert Caruso on 63-56-0456Nybdeslhnbbyodi Screen Ql (U)NegativeNegativePromedica Bay Park HospitalBilirubin.total [Mass/volume] in Serum or PlasmaOrdered By: Robert Caruso on 82-82-2179Cszpmggzm [Mass/Vol]0.8 mg/dL0.3-1.0Prom[facility] HospitalCalcium [Mass/volume] in Serum or PlasmaOrdered By: Robert Caruso on 22-25-0701Kszuvry [Mass/Vol]10.1 mg/dL8.6-10.3FHolzer Health SystemCannabinoids [Presence] in Urine by Screen methodOrdered By: Robert Caruso on 65-20-7488Ujrosoaisxvo Screen Ql (U)NegativeNegCommunity Memorial HospitalComment on above:These are unconfirmed results and should not be used for legal purposes. Drug Cut-Off Concentration: AMPH 1000 ng/mL GABRIELA 200 ng/mL SIVA 200 ng/mL COCM 300 ng/mL OP 300 ng/mL PCP 25 ng/mL THC 20 ng/mLCarbon dioxide, total [Moles/volume] in Serum or PlasmaOrdered By: Robert Caruso on 67-08-8401UM1 [Moles/Vol]29.6 mmol/L21.0-31.0[facility] Chloride [Moles/volume] in Serum or PlasmaOrdered By: Robert Caruso on 05-25-2023 Chloride [Moles/Vol]102 mmol/I48-203QoacsgcdxPromedica Bay Park HospitalCreatinine [Mass/volume] in Serum or PlasmaOrdered By: Robert Caruso on 87-96-8651Jzdysbglcw [Mass/Vol]0.76 mg/dL0.60-1.20Prom[facility] HospitalEosinophils Auto (Bld) [#/Vol]Ordered By: Robert Caruso on 29-47-3913Afhqqmxdhmn (Bld) [#/Vol]0.0 10*3/uL0.0-0.45Prom[facility] HospitalEosinophils/100 WBC Auto (Bld) Ordered By: Robert Caruso on 77-58-0392Mmhjtruvkib/100 WBC (Bld)0.1 %.Prom[facility] HospitalErythrocyte distribution width Auto (RBC) [Ratio]Ordered By: Robert Caruso on 03-87-8514Zpecviqggfw distribution width (RBC) [Ratio]12.9 % 11.9-15.3FHolzer Health SystemEthanol [Mass/volume] in Serum or PlasmaOrdered By: Robert Caruso on 06-83-7698Ltlirns [Mass/Vol]mg/dLPromedica Bay Park HospitalEthanol [Mass/Vol]TNPPromedica Bay Park Hospital Comment on above:Test not performedGlobulin Calc (S) [Mass/Vol]Ordered By: Robert Caruso on 30-29-9243Lifzxjaf (S) [Mass/Vol]2.9 g/dLPromedica Bay Park HospitalGlucose [Mass/volume] in Serum or PlasmaOrdered By: Robert Caruso on 39-77-6279Rbnoaym [Mass/Vol]120 mg/tM83-504SntgruenoPromedica Bay Park Hospital Comment on above:ADA recommended reference rangeRandom Glucose Reference Range is dependent on time and content of last meal. Glucose of more than 200 mg/dL in a nonstressed, ambulatory subject supports the diagnosisof Diabetes Mellitus. HCG ( test) IA.rapid Ql (U)Ordered By: Robert Caruso on 20-05-5192JOL ( test) Ql (U)NegativePromedica Bay Park HospitalHematocrit Auto (Bld) [Volume fraction]Ordered By: Robert Caruso on 36-86-7294Wggibkgqfj (Bld) [Volume fraction]41.6 %34.0-46.4FHolzer Health SystemHemoglobin [Mass/volume] in BloodOrdered By: Robert Caruso on 60-23-1262Rduubmjmil (Bld) [Mass/Vol]14.1 g/dL11.8-15.4FHolzer Health SystemLeukocytes [#/volume] corrected for nucleated erythrocytes in Blood by Automated coun Ordered By: Robert Caruso on 55-16-5146PIZ corrected for nucl RBC Auto (Bld) [#/Vol]7.0 10*3/uL3.8-11.6FHolzer Health SystemLymphocytes Auto (Bld) [#/Vol]Ordered By: Robert Caruso on 77-73-9280Xbglhfcgwtc (Bld) [#/Vol]1.1 10*3/uL1.00-4.8[facility] HospitalLymphocytes/100 WBC Auto (Bld) Ordered By: Robert Caruso on 77-92-8012Rhqffoydfxc/100 WBC (Bld)15.5 %.[facility] Auto (RBC) [Entitic mass]Ordered By: Robert Caruso on 83-51-8200KLX (RBC) [Entitic mass]29.9 pg24.7-34.3FMercy HospitalHC Auto (RBC) [Mass/Vol]Ordered By: Robert Caruso on 12-92-6122EMOF (RBC) [Mass/Vol]34.0 g/dL32.0-35.0[facility] HospitalMCV Auto (RBC) [Entitic vol]Ordered By: Robert Caruso on 37-69-3864MGB (RBC) [Entitic vol]87.8 fL 80-100[facility] HospitalMonocyte distribution width [Entitic volume] in Blood by AutomatedOrdered By: Robert Caruso on 42-21-0677Egingtxx distribution width Auto (Bld) [Entitic vol]17.76 %0.00-20.00[facility] HospitalMonocytes Auto (Bld) [#/Vol]Ordered By: Robert Caruso on 05-25-2023 Monocytes (Bld) [#/Vol]0.3 10*3/uL0.0-0.8[facility] Monocytes/100 WBC Auto (Bld)Ordered By: Robert Caruso on 37-40-5656Kitczfgrf/100 WBC (Bld)3.9 %.[facility] HospitalNeutrophils Auto (Bld) [#/Vol] Ordered By: Robert Caruso on 60-91-2975Epoamrtfvbm (Bld) [#/Vol]5.6 10*3/uL1.8-7.7 [facility] HospitalNeutrophils/100 WBC Auto (Bld)Ordered By: Robert Caruso on 68-48-6089Axogkmkwhic/100 WBC (Bld)80.0 %.[facility] HospitalNo Panel InformationOrdered By: Robert Caruso on 30-55-6208Iigupieri GFR (CKD-EPI)> 60.0 mL/MinPromedica Bay Park HospitalPharmacy Creatinine Clearance (Chem59.72[facility] HospitalNucleated erythrocytes [Presence] in Blood by Automated countOrdered By: Robert Caruso on 05-25-2023 Nucleated RBC Auto Ql (Bld)0.0 /100{WBC}0-0.5FHolzer Health System Opiates [Presence] in Urine by Screen methodOrdered By: Robert Caruso on 39-62-4244Ogbvvma Screen Ql (U)NegativeNegativePromedica Bay Park Hospital Phencyclidine Screen Ql (U)Ordered By: Robert Caruso on 74-90-8800Qcmaxllaabzya Ql (U)NegativeNegativePromedica Bay Park HospitalPlatelet mean volume Auto (Bld) [Entitic vol]Ordered By: Robert Caruso on 05-40-8494Zlifcgcm mean volume (Bld) [Entitic vol]7.9 fL6.3-10.7FHolzer Health SystemPlatelets Auto (Bld) [#/Vol]Ordered By: Robert Caruso on 20-06-4635Adthhshyq (Bld) [#/Vol]292 10*3/oB438-510TyhpkjdbxPromedica Bay Park HospitalPotassium [Moles/volume] in Serum or PlasmaOrdered By: Robert Caruso on 12-86-2176Vqnekcrfi [Moles/Vol]3.7 mmol/L 3.5-5.1FHolzer Health SystemProtein [Mass/volume] in Serum or Plasma Ordered By: Robert Caruso on 99-33-7446Vfkjrma [Mass/Vol]7.3 g/dL6.4-8.9[facility] HospitalRBC Auto (Bld) [#/Vol]Ordered By: Robert Caruso on 17-86-8309MRI (Bld) [#/Vol]4.74 10*6/uL3.60-5.00[facility] Hospitalerum or plasma albumin/globulin mass ratioOrdered By: Robert Caruso on 07-71-2200Legvjmu/Globulin [Mass ratio]1.5 {ratio}[facility] Hospitalerum or plasma anion gap determinationOrdered By: Robert Caruso on 45-29-3632Mmfek gap [Moles/Vol]10.1 mmol/L6.0-15.0[facility] Hospitalodium [Moles/volume] in Serum or PlasmaOrdered By: Robert Caruso on 88-98-4531Cgsxii [Moles/Vol]138 mmol/T178-758ZsrkkkhhhPromedica Bay Park Hospital Urea nitrogen [Mass/volume] in Serum or PlasmaOrdered By: Robert Caruso on 16-40-3855Bxvj nitrogen [Mass/Vol]12 mg/dL7-25[facility] WBC Auto (Bld) [#/Vol]Ordered By: Robert Caruso on 72-13-3888HAE (Bld) [#/Vol]7.0 10*3/uL3.8-11.6FHolzer Health System.Fentanyl Scrn wo Conf,Uron 48-64-7309Ho Fentanyl ScrnNegativeNormalNEG <1.0[facility] Comment on above:Performed By: #### CD:[id number] #### [address] [address]Og Fentanyl Scrn Qnt0.10 ng/mLNormal<=0.99[facility]. Mary HospitalComment on above:Performed By: #### CD:[id number] #### [address] [address].eGFRon 93-43-8782TFL/1.73 sq M.predicted MDRD (S/P/Bld) [Vol rate/Area]mL/min/{1.73_m2}Normal>=60Mount [facility]. Mary HospitalComment on above:Result Comment: [facility] have implemented the eGFR calculation approach that does not havea coefficient for race and that conforms to the NKF- ASN Task Force Recommendations. Stages of Chronic Kidney [...] maximum of SCr/? or 1 Age = yearsPerformed By: #### EGFR #### [place] [id number] w/ Diffon 23-93-2913Lvbefqdgdhg distribution width (RBC) [Ratio]13.2 %Xwwwqa91.6-14.8BSt. Anthony's HospitalComment on above: Performed By: #### CBC #### [place] [address]Hematocrit (Bld) [Volume fraction]40.9 %Uvbbyw15.0-46.[address] [facility] HospitalComment on above:Performed By: #### CBC #### [place] [address]Hemoglobin (Bld) [Mass/Vol]13.9 g/zCZjfdzz40.0-16.0[facility] Mary HospitalComment on above:Performed By: #### CBC #### [place] [address]MCH (RBC) [Entitic mass]30.1 twKbpyty33.0-35.0[facility] Mary HospitalComment on above:Performed By: #### CBC #### [place] [address]40MCHC34.1 %Zizhdd00.0-37.0[facility] HospitalComment on above:Performed By: #### CBC #### [address] [address]SCI (RBC) [Entitic vol]88.[address] zVWvayml92.0-100.0[facility] HospitalComment on above:Performed By: #### CBC #### [address] [address]Clqqebgi907 x10*3/pcESrbmdi522-564MqfdrkvygMount St. Mary HospitalComment on above:Performed By: #### CBC #### [address] [address]Ixyhomyr mean volume (Bld) [Entitic vol]7.6 fLNormal6.7-10.[address] [facility] HospitalComment on above:Performed By: #### CBC #### [address] [address]CHE8.63 x10*6/mcLNormal3.80-5.20[facility] Comment on above:Performed By: #### CBC #### [address] [address]XNJ5.6 x10*3/mcLNormal4.5-11.0[facility] Comment on above:Performed By: #### CBC #### [address] [address]DNFrc 91-83-5859Xivcgcb [Mass/Vol]4.5 g/dLNormal3.2-4.[address] [facility] HospitalComment on above:Performed By: #### COMP #### [address] [address]Cbomyra/Globulin [Mass ratio]1.4 {ratio}Normal1.1-2.2BSt. Anthony's HospitalComment on above:Performed By: #### COMP #### [address] [address]Hdd Phos47 IU/ONjpwvc86-89ArwbmlzkoMount St. Mary HospitalComment on above:Performed By: #### COMP #### [address], [place] [address]ODL [Catalytic activity/Vol]18 U/BZpfdgs39-51AqpftxzvbMount St. Mary HospitalComment on above:Performed By: #### COMP #### [address], [place] [address]Emydk gap [Moles/Vol]14 mmol/LNormal7-17[facility]. Mary HospitalComment on above:Performed By: #### COMP #### [address], [place] [address]SFN [Catalytic activity/Vol]28 U/GXsuems16-66BmabfvtlcMount St. Mary HospitalComment on above:Performed By: #### COMP #### [address] [address]Dmkj Total0.8 mg/dLNormal0.3-1.2BSt. Anthony's Hospital Comment on above:Performed By: #### COMP #### [address], [place] [address]Exjtlbm [Mass/Vol]10.1 mg/dLNormal8.5-10.3BSt. Anthony's HospitalComment on above:Performed By: #### COMP #### [address] [place] [address]Gtniqvlc [Moles/Vol]100 mmol/ENcwrzu70-793KvimdajzdMount St. Mary HospitalComment on above:Performed By: #### COMP #### [address], [place] [address]TV7 [Moles/Vol]27 mmol/IRqpczt23-73AiemquezkMount St. Mary HospitalComment on above:Performed By: #### COMP #### [address], [place] [address]Pfxrvfokxn [Mass/Vol]0.96 mg/dLNormal0.44-1.03[facility]. Mary HospitalComment on above:Performed By: #### COMP #### [address] [place] [address]Epahsqs [Mass/Vol]116 mg/rEJalv12-81LrhovdilaMount St. Mary HospitalComment on above:Performed By: #### COMP #### [address] [address]Efvnuagxv [Moles/Vol]4.0 mmol/LNormal3.4-4.8BSt. Anthony's HospitalComment on above:Performed By: #### COMP #### [address] [address]Kpbbbyy [Mass/Vol]7.8 g/dLNormal6.5-8.1BSt. Anthony's HospitalComment on above:Performed By: #### COMP #### [address] [address]Sixwwy [Moles/Vol]137 mmol/KPwqxrq666-640RmxfjzohoMount St. Mary HospitalComment on above:Performed By: #### COMP #### [address] [address]Hzvd nitrogen [Mass/Vol]13 mg/dLNormal8-26[facility] St. Mary HospitalComment on above:Performed By: #### COMP #### [address] [address]Cmsc nitrogen/Creatinine [Mass ratio]13.5 mg/kqFsqjks40.0-20.[address] [facility] HospitalComment on above:Performed By: #### COMP #### [address] [address]YR Brain w/o Contraston 57-75-4012NN Brain w/o ContrastCT Brain w/o Contrast: 05/20/2023 2:33 PM EST [...] or other acute finding. Radiation Dose Estimate: CTDI(mGy):0.353825 / / / kVp:120.292976 / mAs:0.227580 / / / DLP(mGy- cm):5.658841Tpby Part: Head CTDI(mGy):44.825124 / / / kVp:120.717488 / mAs:182.424063 / / / DLP(mGy- cm):813.518189Jkba Part: Head Final Dictated by: Tremayne Butler MD Dictated DT/TM: 05.20.2023 2:48 pm Signed by: Tremayne Butler MD Signed (Electronic Signature): 05.20.2023 2:50 pm (If Report Is Signed, Electronically Signed in Other Vendor System)Normal [facility] HospitalDiff Autoon 16-51-8268Eahs Absolute0.0 x10*3/mcL Normal0.0-0.2BSt. Anthony's HospitalComment on above:Performed By: #### .Automated Diff #### [address] [address]Hdhozehmo/100 WBC (Bld)0.5 %Normal0.0-1.5BSt. Anthony's HospitalComment on above:Performed By: #### .Automated Diff #### [address] [address]Ins Absolute0.0 x10*3/mcLNormal0.0-0.4BSt. Anthony's HospitalComment on above:Performed By: #### .Automated Diff #### [address] [address]Uxycoovgqby/100 WBC (Bld)0.4 %Normal0.0-5.4BSt. Anthony's HospitalComment on above:Performed By: #### .Automated Diff #### [address] [address]Gckia Absolute1.3 x10*3/mcLNormal1.0-4.8BSt. Anthony's HospitalComment on above:Performed By: #### .Automated Diff #### [address] [address]Xamnjzkciol/100 WBC (Bld)22.8 %Low27.2-40.8BSt. Anthony's HospitalComment on above:Performed By: #### .Automated Diff #### [address] [address]Lalu Absolute0.3 x10*3/mcLNormal0.1-1.1BSt. Anthony's HospitalComment on above:Performed By: #### .Automated Diff #### [address] [address]Uvmeqqhvg/100 WBC (Bld)5.2 %Normal3.7-11.9BSt. Anthony's HospitalComment on above:Performed By: #### .Automated Diff #### [address] [address]Xfurrp Absolute4.0 x10*3/mcLNormal1.8-7.7BSt. Anthony's HospitalComment on above:Performed By: #### .Automated Diff #### [address] [address]Kunztb Auto71.1 %High47.2-70.8BSt. Anthony's Hospital Comment on above:Performed By: #### .Automated Diff #### [address] [address]ON Clinical Summaryon [id number] Clinical Summary [address] [address] ED Clinical Summary Person Information Name: Donnie Bullock Shala Clark/[place] Age: 67 Years : 1955 Sex: Female PCP: Remigio Simpson MD Marital Status: Phone: Race: White Ethnicity: Not or Language: Latvian Visit Reason: Psychiatric screening exam; psych screen Acuity: 2 Enc Type: Emergency Med Service: Emergency Medicine Arrival: 05/20/2023 13:12:08 Discharge: 05/20/2023 17:38:00 LOS: 000 04:26 Checkin: 05/20/2023 13:12:08 Checkout: 05/20/2023 17:38:00 Dispo Type: Home or Self Care Address: [address] [place] [address] [address] [place] [id number] Provider Notes: Diagnosis: 1:Encounter for medical screening [...] range between ( 27.2 and 40.8 ) [place] Auto: 5.2 % -- Normal range between [...] range between ( 36.0 and 46.0 ) [place] Absolute: 0.3 x10 MCH: 30.1 pg -- [...] ROGERS, Anuj Orta ED Provider 05/20/2023 13:39:39 Sherri Hernandez MD ED Provider 05/20/2023 15:28:08 Follow up: With: Address: When: [facility] With: Address: When: Remigio Richleanna [address] [place] [phone] Business (1) Within 1 week Discharge Orders: Discharge Patient 05/20/23 17:30:00 EST, Discharge to Home, Self Patient Education Information: Anxiety Reaction [facility] Poison Help line: . [facility] Hotline: [place] Tobacco Quit Line: [place], [place]) [address]: [phone] [facility] ([place], [place]) [address]: (more content not included)...[facility]ED [facility]-Nursingon 27-78-7559LK Note-NursingPatients reports patient had covid 04/21/23 and most of her symptoms are stemming from that;increased memory loss, confusion, weight loss, panic attacks. Patient did take Paxlovid. Patient was seen at [facility] on Wednesday and taken off Xanax as they felt her hallucinations could be from that, and they prescribed hydroxizine. 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 Patient denies SI and HI but is frustrated that she is having these issues and is not her normal self. Electronically signed by Odalys Munroe 05/20/23 14:33 [facility] HospitalED Note-Physicianon 78-70-2555MF Note-PhysicianChief Complaint pt was sent over by her [...] High Lymph Auto 05/20/23 15:21 22.8 Low [place] Auto 05/20/23 15:21 5.2 Eos Auto 05/20/23 15:21 0.4 Basophil Auto 05/20/23 15:21 0.5 Neutro Absolute 05/20/23 15:21 4.0 Lymph Absolute 05/20/23 15:21 1.3 [place] Absolute 05/20/23 15:21 0.3 Eos Absolute 05/20/23 [...] By: Tremayne Butler MD Electronically signed by Anderson Sherri ROGERS 05/25/23 20:00 [facility] ED Note-PhysicianChief Complaint pt was sent over by her [...] that she is having some degree of h allucinations and worsening social anxiety. She has endorsed having some tension headaches and neckpain for which she has been prescribed meloxicam. She is also taking hydroxyzine she was taking Xanax but they thought that due to the side effects of hallucinations that she should be changed from Xanax. She was prescribed Paxlovid when she was diagnosed with COVID. The has endorse strangebehaviors she was walking around outside of the [...] in her mental status and mental health overthe last 3 weeks This is secondary to [...] and she accused her of being a strangerthat was wearing her 's wedding ring The [...] will obtain a CT head and have nephrology social worker speak with the patient she was sent in by her therapist that she describes it Sign out to Dr. Hernandez at the end of my shift for disposition and nephrology social worker recommendation Assessment/Plan Psychiatric screening exam [...] Anuj Gilbert MD / (more content not included)...NormalMount St. Mary HospitalEthanolon 07-81-7017Kncbwoj, Plasma<10Normal<=9BSt. Anthony's HospitalComment on above:Result Comment: To convert mg/dL to g/dL, divide result by 1,000. Legal limit of intoxication is 80mg/dL (0.08 g/dL). Performed By: #### ALC #### [address] [address]CRH Compon 96-49-2684Nrhdkcoioz [Mass/Vol]100.2 mg/dLNormal [facility] St. Mary HospitalComment on above:Performed By: #### CD:[id number] #### [address] [address]Qx Amph ScrnNegativeNormalNEG = <1000Mount St. Mary HospitalComment on above:Performed By: #### CD:[id number] #### [address] [address]El Gabriela ScrnNegativeNormalNEG = <200[facility] St. Mary HospitalComment on above:Performed By: #### CD:[id number] #### [facility] [address] [facility], [place] [address]Li Benzodia ScrnNegativeNormalNEG = <200[facility] Hospital SystemComment on above:Performed By: #### CD:[id number] #### [facility] [address] [facility], [place] [address]Ta Cannab ScrnNegativeNormalNEG = <50[facility] Hospital SystemComment on above:Performed By: #### CD:[id number] #### [facility] [address] [facility], [place] [address]Fi Cocaine ScrnNegativeNormalNEG = <300[facility] Hospital SystemComment on above:Performed By: #### CD:[id number] #### [facility] [address] [facility], [place] [address]Ug Methadone ScnNegativeNormalNEG = <300[facility] St. Mary HospitalComment on above:Performed By: #### CD:[id number] #### [facility] [address] [place] [address], [place] [address]Hk Opiate ScrnNegativeNormalNEG = <300Mount St. Mary HospitalComment on above:Performed By: #### CD:[id number] #### [facility] [address] [place] [address], [place] [address]Ef Oxy ScreenNegativeNormalNEG = <100Mount St. Mary HospitalComment on above:Performed By: #### CD:[id number] #### [facility] [address] [facility], [place] [address]Eg Oxy Scrn Qnt9 ng/mLNormal<=99[facility] Comment on above:Performed By: #### CD:[id number] #### [facility] [address] [place] [address], [place] [address]Ct PCP ScrnNegativeNormalNEG = <25[facility] St. Mary HospitalComment on above:Performed By: #### CD:[id number] #### [facility] [address] [facility], [place] [address]UP pH7.0Oglyri0.5 - 7.8BSt. Anthony's HospitalComment on above:Performed By: #### CD:[id number] #### [address] [address]QX Spec Grav1.486Qnxryb1.003-1.035BlThe Jewish HospitalComment on above:Performed By: #### CD:[id number] #### [address] [address]Obtnpty Colonoscopyon 34-17-0640Babpahs Colonoscopy [id number]#1.00CD:127[facility] GlenbeighReminderson 18-96-2927Mpkmidyeq From: Sarah Griffiths LPN To: N - Clinical; Sent: 01/28/2023 13:00:59 EDT Show up: 12/27/2032 07:00:00 EDT Subject: colonoscopy recall Due Date/Time: 01/27/2033 07:00:00 EDT Reminder/Recall Patient due for screening colonoscopy 01/27/2033.[facility] GlenbeighConsent for Procedure/Surgeryon 54-19-6352Nupixtz for Procedure/Surgery [id number]#1.00CD:127AC[facility] GlenbeighAmbulatory Visit Summaryon 42-58-0177Hysmsxflbs Visit Summary DONNIE BULLOCK :1955 Visit Date:01/08/2023 [...] no longer receiving treatment for. Carpal tunnel [facility]ighRAD - CT Reporton [id number] - CT [id number]#1.00CD:[address] [place], [place] [address]Physician Referralon 56-40-6577Nyaikwvbr Referral [id number]#1.00CD:[address] [place], [place] [address]CBC AUTO DIFFon 52-22-4186NFJM #0.0 103/ulNormal0.0-0.1[facility] HospitalComment on above:Performed By: #### CBC #### [facility] [address] [address] [address] Jess Waresophils/100 WBC (Bld)0.4 %Normal0.2-2.0[facility] Comment on above:Performed By: #### CBC #### [facility] [address] [address] [address] Jess Lemons #0.0 103/ulNormal0.0-0.7The [facility] HospitalComment on above: Performed By: #### CBC #### [facility] [address] [address] [address] Jess Riceosinophils/100 WBC (Bld)0.4 %Critically low0.9-7.0The [facility] HospitalComment on above:Performed By: #### CBC #### [facility] [address] [place] [address] Dr. Jess Ricerythrocyte distribution width (RBC) [Ratio]12.5 %Wroapg61.0-15.0 The [facility] HospitalComment on above:Performed By: #### CBC #### [facility] [address] [place] [address] Dr. Jess MarieHematocrit (Bld) [Volume fraction]43.1 %Rcgxkj86.0-48.0[facility] HospitalComment on above:Performed By: #### CBC #### [facility] [address] [place] [address] Dr. Jess MarieHemoglobin (Bld) [Mass/Vol]14.0 g/tSVjwamz37.0-16.0[facility] Medical CenterComment on above:Performed By: #### CBC #### [facility] [address] [place] [address] Dr. Jess Belcher #0.01 10e3/ulNormal0.00-0.03The [facility] HospitalComment on above:Performed By: #### CBC #### [facility] [address] [place] [address] Dr. Jess Belcher %0.2 %Normal0.0-0.5[facility] on above: Performed By: #### CBC #### [facility] [address] [place] [address] Dr. Jess Lawson #1.4 103/ulNormal1.2-3.8The [facility] HospitalComment on above:Performed By: #### CBC #### [facility] [address] [place] [address] Dr. Jess Vaughanhocytes/100 WBC (Bld)26.8 %Zhlrtf72.5-60.0The [facility] Hospitalment on above:Performed By: #### CBC #### [facility] [address] [place] [address] Dr. Jess NoyolaUAL DIFF REQNONormalThe [facility] HospitalComment on above: Performed By: #### CBC #### [facility] [address] [place] [address] Dr. Jess Sepulveda (RBC) [Entitic mass]29.7 wbKvsvfo83.7-34.0The [facility] HospitalComment on above:Performed By: #### CBC #### [facility] [address] [place] [address] Dr. Jess Sepulveda (RBC) [Mass/Vol]32.5 g/dREgzixt58.9-35.2The [facility] HospitalComment on above:Performed By: #### CBC #### [facility] [address] [place] [address] Dr. Jess Perez (RBC) [Entitic vol]91.3 yOWfakek89.0-99.0The [facility] HospitalComment on above:Performed By: #### CBC #### [facility] [address] [place] [address] Dr. Jess Wellington #0.3 103/ulNormal0.3-0.8The [facility] HospitalComment on above:Performed By: #### CBC #### [facility] [address] [place] [address] Dr. Jess Zarateocytes/100 WBC (Bld)5.2 %Normal1.7-12.0[facility] Comment on above:Performed By: #### CBC #### [facility] [address] [place] [address] Dr. Jess Garcia #3.5 103/ulNormal1.4-6.5The [facility] HospitalComment on above:Performed By: #### CBC #### [facility] [address] [place] [address] Dr. Jess Chavarriautrophils/100 WBC (Bld)67.0 %Xsdrvh99.0-75.0The [facility] HospitalComment on above:Performed By: #### CBC #### [facility] [address] [place] [address] Dr. Yilan ChangPlatelet mean volume (Bld) [Entitic vol]9.7 fLNormal9.5-13.5The [facility] HospitalComment on above:Performed By: #### CBC #### [facility] [address] [place] [address] Dr. Jess MariePLT230 103/kiOepdow513-497Ton [facility] HospitalComment on above: Performed By: #### CBC #### [facility] [address] [place] [address] Dr. Jess MarieRBC4.72 106/ulNormal4.20-5.40The [facility] HospitalComment on above:Performed By: #### CBC #### [facility] [address] [place] [address] Dr. Jess MarieWBC5.2 103/ulNormal4.0-11.0The [facility] HospitalComment on above: Performed By: #### CBC #### [facility] [address] [place] [address] Dr. Jess MarieGLYCOHEMOGLOBIN A1Con 72-68-0101USZ RECOMMENDATIONSEE BELOWProtestant Deaconess HospitalComment on above:Result Comment: ADA RECOMMENDED LIMIT 4.0 - 6.0 ADA THERAPEUTIC TARGET < 7.0 ACTION SUGGESTED > 7.0Performed By: #### A1C #### [facility] [address] [place] [address] Dr. Jess MarieGlucose [Mass/Vol]123 mg/dLNoThe University of Toledo Medical CenterComhelen newberry joy hospital on above:Performed By: #### A1C #### [facility] [address] [place] [address] Dr. Jess MarieHbA1c (Bld) [Mass fraction]5.9 %Normal4.5-6.2The [facility] HospitalComhelen newberry joy hospital on above:Performed By: #### A1C #### [facility] [address] [place] [address] Dr. Jess MarieLIPID PROFILEon 29-88-3255RIBS-HDL RATIO NORMSEE BELOWThe Bellevue HospitalComment on above:Result Comment: 3.3 - 4.4 LOW RISK 4.4 - 7.1 AVERAGE RISK 7.1 - 11.0 MODERATE RISK >11.0 HIGH RISKPerformed By: #### TSH, LIVER, BMP, LIPID #### [facility] [address] [address] [address] Jess MarieCholesterol [Mass/Vol]267 mg/dLCritically high<=200[facility] on above:Performed By: #### TSH, LIVER, BMP, LIPID #### [facility] [address] [address] [address] Jess Mgesterol in HDL [Mass/Vol]79 mg/dLCritically jlkf38-26Xma [facility] on above:Performed By: #### TSH, LIVER, BMP, LIPID #### [facility] [address] [place] [address] Dr. Jess Mgesterrenae in LDL [Mass/Vol]172.4 mg/dLMercy Health Perrysburg Hospital on above:Performed By: #### TSH, LIVER, BMP, LIPID #### [facility] [facility] [address] [place] [address] Dr. Jess Salguero.total/Cholesterol in HDL [Mass ratio]3.4 {ratio} NormalBlanchard Valley Health System on above:Performed By: #### TSH, LIVER, BMP, LIPID #### [facility] [address] [place] [address] Dr. Jess Esquivel NORMAL> or = 60 mg/dl - LOW CARDIOVASCULAR RISK <40 mg/dl - HIGH CARDIOVASCULAR RISKMer[facility] on above:Performed By: #### TSH, LIVER, BMP, LIPID #### [facility] [address] [place] [address] Dr. Jess Xiong CALC NORMALSEE BELOWThe Bellevue HospitalComhelen [facility]berry [facility] on above:Result Comment: <100 mg/dl OPTIMAL 100 - 129 mg/dl NEAR OR ABOVE OPTIMAL 130 - 159 mg/dl BORDERLINE HIGH 160 - 189 mg/dl HIGH >190 mg/dl VERY HIGH Performed By: #### TSH, LIVER, BMP, LIPID #### [facility] [address] [place] [address] Dr. Jess MarieTriglyceride [Mass/Vol]78 mg/dLNormal<=150The [facility] Comment on above:Performed By: #### TSH, LIVER, BMP, LIPID #### [facility] [address] [address] [address] Jess PutnamLDL CALC15.6 mg/dLNormalThe [facility] HospitalComment on above: Performed By: #### TSH, LIVER, BMP, LIPID #### [facility] [address] [address] [address] Jess Valerio PROFILEon 72-37-6751Jvkygjf [Mass/Vol]3.9 g/dLNormal3.4-5.0 The [facility] HospitalComment on above:Performed By: #### TSH, LIVER, BMP, LIPID #### [facility] [address] [place] [address] Dr. Jess MarieAlbumin/Globulin [Mass ratio]0.9 {ratio}NormalThe [facility] HospitalComment on above:Performed By: #### TSH, LIVER, BMP, LIPID #### [facility] [address] [address] [address] Jess Kidd [Catalytic activity/Vol]61 U/ZFxkcha81-953Qof [facility] HospitalComment on above:Performed By: #### TSH, LIVER, BMP, LIPID #### [facility] [address] [address] [address] Jess Penaloza [Catalytic activity/Vol]25 U/YEuilnu80-60Rrk [facility] HospitalComment on above:Performed By: #### TSH, LIVER, BMP, LIPID #### [facility] [address] [address] [address] Jess Zaldivar [Catalytic activity/Vol]27 U/MGdgimc11-47Tcs [facility] on above:Performed By: #### TSH, LIVER, BMP, LIPID #### [facility] [address] [address] [address] Jess Bazan, CONJUGATED0.1 mg/dLNormal0.0-0.2The [facility] Comment on above:Performed By: #### TSH, LIVER, BMP, LIPID #### [facility] [address] [address] [address] Jess MarieBilirubin [Mass/Vol]0.7 mg/dLNormal0.2-1.0[facility] Comment on above:Performed By: #### TSH, LIVER, BMP, LIPID #### [facility] [address] [address] [address] Jess MarieGlobulin (S) [Mass/Vol]4.2 g/dLNormalThe [facility] HospitalComment on above:Performed By: #### TSH, LIVER, BMP, LIPID #### [facility] [address] [place] [address] Dr. Jess MarieProtein [Mass/Vol]8.1 g/dLNormal6.4-8.2[facility] Comment on above:Performed By: #### TSH, LIVER, BMP, LIPID #### [facility] [address] [place] [address] Dr. Jess MariePROF CHEM 8 (BAS METB)on 72-56-4878Lyoqk gap [Moles/Vol]13.1 mmol/LNormalWexner Medical CenterComment on above:Performed By: #### TSH, LIVER, BMP, LIPID #### [facility] [address] [place] [address] Dr. Jess MarieCalcium [Mass/Vol]9.6 mg/dLNormal8.5-10.1[facility] Comment on above:Performed By: #### TSH, LIVER, BMP, LIPID #### [facility] [address] [place] [address] Dr. Jess MarieChloride [Moles/Vol]105 mmol/WUxwzmz23-432XorWexner Medical Center Comment on above:Performed By: #### TSH, LIVER, BMP, LIPID #### [facility] [address] [place] [address] Dr. Jess MarieCO2 [Moles/Vol]28.9 mmol/OTfmknm85.0-32.0The [facility] Comment on above:Performed By: #### TSH, LIVER, BMP, LIPID #### [facility] [address] [address] [address] Jess MarieCreatinine [Mass/Vol]0.62 mg/dLNormal0.55-1.02The [facility] HospitalComment on above:Performed By: #### TSH, LIVER, BMP, LIPID #### [facility] [address] [address] [address] Jess RiceGFR-AF MOLDOVAN>60Normal>=60The [facility] HospitalComment on above:Performed By: #### TSH, LIVER, BMP, LIPID #### [facility] [address] [place] [address] Dr. Jess RiceGFR-NON AF MOLDOVAN>60Normal>=60The [facility] HospitalComment on above:Performed By: #### TSH, LIVER, BMP, LIPID #### [facility] [address] [place] [address] Dr. Jess MarieGlucose [Mass/Vol]112 mg/dLCritically baao77-642Zlf [facility] on above:Performed By: #### TSH, LIVER, BMP, LIPID #### [facility] [address] [place] [address] Dr. Jess MariePotassium [Moles/Vol]5.0 mmol/LNormal3.5-5.1[facility] Comment on above:Result Comment: specimen slightly hemolyzedPerformed By: #### TSH, LIVER, BMP, LIPID #### [facility] [address] [place] [address] Dr. Jess MarieSodium [Moles/Vol]142 mmol/PKiocwm339-216VorWexner Medical Center Comment on above:Performed By: #### TSH, LIVER, BMP, LIPID #### [facility] [address] [place] [address] Dr. Jess MarieUrea nitrogen [Mass/Vol]15.0 mg/dLNormal7.0-18.0The [facility]ment on above:Performed By: #### TSH, LIVER, BMP, LIPID #### [facility] [address] [address] [address] Jess MarieUrea nitrogen/Creatinine [Mass ratio]24.2 mg/mgNormalThe [facility] HospitalComment on above:Performed By: #### TSH, LIVER, BMP, LIPID #### [facility] [address] [place] [address] Dr. Jess MarieTSHon 37-78-8362GZC6.518 uIU/mLNormal0.358-3.740The [facility] HospitalComment on above:Performed By: #### TSH, LIVER, BMP, LIPID #### [facility] [address] [address] [address] Jess Burger CAROTID ART BILon [id number] CAROTID ART BILEXAMINATION: US CAROTID ART KEN HISTORY: Family history [...] Electronically authenticated by: HERSON REBOLLEDO Date: 2022-09-10 12:26The Bellevue HospitalXR ABD FLAT_UPon 57-29-3535WQ ABD FLAT_UPEXAMINATION: XR ABD FLAT_UP HISTORY: Constipation COMPARISON: No relevant comparison available. FINDINGS: BOWEL GAS PATTERN: Large amount of stool throughout the colon without abnormal dilation or obstruction. FREE AIR: None. CALCIFICATIONS: None significant. BONES: Scoliotic curvature of lumbar spine. No fracture. OTHER: Negative. IMPRESSION: 1. Large stool burden compatible with constipation. 2. No bowel obstruction. Electronically authenticated by: HERSON REBOLLEDO Date: 2022-06-10 08:38The [facility]vue HospitalCovid-19 PCR (CVDTBH)on 63-17-9964REFB-CoV-2 (COVID-19) RNA YAYA+probe Ql (Unsp spec)Not detectedNormalNOT DETECTEDThe [facility] Comment on above:Result Comment: This test is not yet approved or cleared by the [place] FDA. When there are no FDA-approved or cleared tests available, and other criteria are met, FDA can make tests available under an emergency access mechanism called an Emergency Use Authorization (EUA). The EUA for this test is supported by the [place] of Health and Human Service's (HHS's) declaration that circumstances exist to justify the emergency use of in vitro diagnostics for the detection and/or diagnosis of the virus that causes COVID- 19. This EUA will remain in effect (meaning [...] of clinical signs and symptoms consistent with SARS-CoV-2.Performed By: #### CVDTB #### [facility] [address] [place] [address] Dr. Jess Marie Vital Signs Date TimeVital SignValuePerforming PvjbdwnfnLrnzwxxs59-50-7206 09:19-0400Body svmupn312.6 cmSteven Rusher DPM Work Phone: [facility] HospitalAiorplwlih96-35-8457 09:19-0400Body mass index (BMI) [Ratio]28.32 kg/o0Bmmcsj Rusher DPM Work Phone: [facility] HospitalPsexlkrqea94-89-0434 09:19-0400Body nxfsyf28.84 kgSteven Rusher DPM Work Phone: [phone] HospitalBohrvcpchx60-80-6478 10:46-0400Body .37 cmRemigio Simpson MD Work Phone: [facility]09-04-2025 10:46-0400 Body mass index (BMI) [Ratio]30.7 kg/m2Remigio Simpson MD Work Phone: [facility]09-04-2025 10:46-0400 Body mlkbdtwcymt82.8 [degF]Remigio Simpson MD Work Phone: 1(334)578-[address] [place], [place] [address]9-04-2025 10:46-0400 Body mtkogc93.04 kgRemigio Simpson MD Work Phone: [phone]09-04-2025 10:46-0400 Diastolic blood fxfaxwhd64 mm[Hg]Remigio Simpson MD Work Phone: [phone] [address]09-04-2025 10:46-0400 Heart rate66 /minRemigio Simpson MD Work Phone: [phone])[address]09-04-2025 10:46-0400 SaO2% (BldA) [Mass fraction]98 %Remigio Simpson MD Work Phone: [phone]09-04-2025 10:46-0400 Systolic blood plwrkepx663 mm[Hg]Remigio Simpson MD Work Phone: [phone]06-19-2025 09:02-0400 Body .6 cmSteven Rusher DPM Work Phone: [phone] HospitalYjxnxlpklj77-71-3857 09:02-0400Body mass index (BMI) [Ratio]28.32 kg/z6Ypdaac Rusher DPM Work Phone: [phone]06-19-2025 09:02-0400Body qkonut28.84 kgSteven Rusher DPM Work Phone: [phone] HospitalVrfucvrxho20-07-5104 14:21-0400Body kryoqv006.6 cmRemigio Simpson MD Work Phone: [facility] HospitalCrtdacyepi88-07-7727 14:21-0400Body mass index (BMI) [Ratio]28.32 kg/m2Remigio Simpson MD Work Phone: [facility] HospitalKwousjvhhn35-18-2533 14:21-0400Body temperature 96.6 [degF]Remigio Simpson MD Work Phone: [phone] [place], [place] [address]Ohhhstcrrj01-29-1082 14:21-0400Body xbgjeh52.84 kgRemigio Simpson MD Work Phone: [facility] HospitalEdoxpxlvcn06-82-2499 14:21-0400Diastolic blood ldgzelvb10 mm[Hg]Remigio Simpson MD Work Phone: [facility] HospitalYetcfxljxx06-80-6696 14:21-0400Heart rate76 /min Remigio Simpson MD Work Phone: [facility] HospitalQsaumyclzi94-26-4249 14:21-0400Respiratory rate22 /minRemigio Simpson MD Work Phone: [facility] HospitalMrlbilxqra56-59-6252 14:21-6441QmS6% (BldA) [Mass fraction]98 %Remigio Simpson MD Work Phone: [facility] HospitalDvivyeaknw38-78-6509 14:21-0400Systolic blood mm[Hg]Remigio Simpson MD Work Phone: [facility] HospitalQugfymfvsb73-57-4351 08:41-0500Body mass index (BMI) [Ratio]27.55 kg/c6Rwayfnxdnvc Chnadrika DO Work Phone: [facility] HospitalXynixrefmy37-42-7946 08:41-0500Body woxzri62.94 kgChristopher Chandrika DO Work Phone: [facility] HospitalKmlncfywtq88-32-4269 08:41-0500Diastolic blood dmatngxu76 mm[Hg]Christopher Chandrika DO Work Phone: [facility] HospitalZyxkxohxmj82-59-1333 08:41-0500Heart rate79 /min Christopher Chandrika DO Work Phone: [facility] HospitalAycxogbqvd08-92-1677 08:41-4552GmZ0% (BldA) [Mass fraction]97 %Christopher Chandrika DO Work Phone: [facility] HospitalAydioqngrf28-07-7960 08:41-0500Systolic blood ldrisvsm695 mm[Hg]Christopher Chandrika DO Work Phone: [facility] HospitalBothbabpag54-36-6515 09:38-0500Body mgxasc742.8 cmSteven Rusher DPM Work Phone: [facility] HospitalZgzvxywpni20-99-9531 09:38-0500Body mass index (BMI) [Ratio]26.87 kg/f3Ksuztd Rusher DPM Work Phone: [facility] HospitalSkmkyrvbzx07-15-0915 09:38-0500Body ssyebf72.12 kgSteven Rusher DPM Work Phone: [facility] HospitalPardexswee51-51-5043 12:37-0500Body zoihsh51.8 kg Sera Killian INSPECTOR CIRCUITRY NEGATIVE.[employer] Work Phone: [phone]12-04-2024 12:37-0500Diastolic blood hptaxgze78 mm[Hg]Sera Killian INSPECTOR CIRCUITRY NEGATIVE.[employer] Work Phone: [phone]12-04-2024 12:37-0500Heart rate76 /min Sera Killian INSPECTOR CIRCUITRY NEGATIVE.[employer] Work Phone: [phone]12-04-2024 12:37-0500Systolic blood mm[Hg]Sera Killian INSPECTOR CIRCUITRY NEGATIVE.[employer] Work Phone: [phone]11-04-2024 13:52-0500Body mass index (BMI) [Ratio]26.4 kg/j9Rplnhtbicak Chandrika DO Work Phone: [facility] HospitalVunxeipbuw46-70-2232 13:52-0500Body uliajm45.85 kgChristopher Chandrika DO Work Phone: [address] [address]Cdlclpgagj99-10-3384 13:52-0500Diastolic blood swduqcvo68 mm[Hg]Christopher Chandrika DO Work Phone: [address] [address]Slpytkefan92-19-3820 13:52-0500Heart rate77 /min Christopher Chandrika DO Work Phone: [address] [address]Gtjlbypxtk20-47-2325 13:52-3552LyC5% (BldA) [Mass fraction]96 %Christopher Chandrika DO Work Phone: [facility] HospitalTjmjvnvdvf84-07-4629 13:52-0500Systolic blood bbyinqfu261 mm[Hg]Christopher Chandrika DO Work Phone: [facility] HospitalJbnhvgljvg32-78-3491 09:22-0400Body sujirj782.8 cmSteven Rusher DPM Work Phone: [facility] HospitalQcqhcehjyg19-04-9195 09:22-0400Body mass index (BMI) [Ratio]27.04 kg/p4Gzsvix Rusher DPM Work Phone: [facility] HospitalIchjqqtjik09-03-1563 09:22-0400Body .58 kgSteven Rusher DPM Work Phone: [facility] HospitalSrceikpcjf53-28-4806 11:45-0400Body mass index (BMI) [Ratio]27.11 kg/s7Uknuiflplve Chandrika DO Work Phone: [facility] HospitalSjnensagrp73-99-3970 11:45-0400Body zeawaz00.76 kgChristopher Chandrika DO Work Phone: [facility] HospitalRpvtuzotvt78-75-4651 11:45-0400Diastolic blood esmwukxs74 mm[Hg]Christopher Chandrika DO Work Phone: [facility] HospitalIedarqdbfh47-96-0084 11:45-0400Heart rate73 /min Christopher Chandrika DO Work Phone: [facility] HospitalVaqzpesnly36-83-2750 11:45-7129XmT8% (BldA) [Mass fraction]97 %Christopher Chandrika DO Work Phone: [facility] HospitalHsjlaughvh01-03-4478 11:45-0400Systolic blood mm[Hg]Christopher Chandrika DO Work Phone: [facility] HospitalWexhddncbq55-96-1884 07:30-0400Body gifxbfpgqsq44 [degF]MD Remigio Simpson Work Phone: [facility]05-08-2024 07:30-0400 Diastolic blood koiijyxy63 mm[Hg]MD Remigio Simpson Work Phone: [phone] [place], [place] [address]1005-08-2024 07:30-0400 Heart rate73 /minMD Remigio Simpson Work Phone: [phone]05-08-2024 07:30-0400 Respiratory rate18 /minMD Remigio Simpson Work Phone: [phone]05-08-2024 07:30-0400 SaO2% (BldA) [Mass fraction]99 %MD Remigio Simpson Work Phone: [phone])93807 [address]05-08-2024 07:30-0400 Systolic blood uyldmlrc522 mm[Hg]MD Remigio Simpson Work Phone: [phone])[address]05-07-2024 08:44-0400 Body kjofcv922.1 cmMD Remigio Simpson Work Phone: [phone] [place], [place] [address]05-06-2024 08:42-0400 Body iadkhw74.6 kgMD Remigio Simpson Work Phone: [phone])[address]04-30-2024 22:32-0400 Body ziwvbkecchr81 [degF]MD Remigio Simpson Work Phone: [phone] [address]04-30-2024 22:32-0400 Diastolic blood dbubyhhh19 mm[Hg]MD Remigio Simpson Work Phone: [phone] [address]04-30-2024 22:32-0400 Heart rate81 /minMD Remigio Simpson Work Phone: [phone])[address]107 [address]04-30-2024 22:32-0400 Respiratory rate18 /minMD Remigio Simpson Work Phone: [phone])[address]407 [address]04-30-2024 22:32-0400 SaO2% (BldA) [Mass fraction]97 %MD Remigio Simpson Work Phone: [phone])[address]04-30-2024 22:32-0400 Systolic blood qnzovciw553 mm[Hg]MD Remigio Simpson Work Phone: [facility]04-30-2024 19:45-0400 Body osalne021.1 cmMD Remigio Simpson Work Phone: [facility]04-30-2024 19:45-0400 Body iprudo48.85 kgMD Remigio Simpson Work Phone: [facility]01-23-2024 07:30-0500 Body abexzwgjtoo03.6 [degF][facility]01-23-2024 07:30-0500Diastolic blood ycqnpobj23 mm[Hg][facility] 06-08-2023 07:30-0500Heart rate75 /[facility] 06-08-2023 07:30-0500Respiratory rate16 /[facility] 06-08-2023 07:30-6439ApB0% (BldA) [Mass fraction]97 %[facility]01-23-2024 07:30-0500Systolic blood gxbhxcyk393 mm[Hg][facility]01-22-2024 09:00-0500Body dkejqd83.5 kgProm[facility]ica [facility] Hospital01-19-2024 10:17-0500Body .37 cmProm[facility] 05-25-2023 14:29-0500Diastolic blood mm[Hg]DO Robert Zuly Work Phone: [facility]01-09-2024 14:29-0500 Heart rate91 /minDO Robert Zuly Work Phone: [facility]01-09-2024 14:29-0500 Respiratory rate18 /minDO Robert Zuly Work Phone: [facility]01-09-2024 14:29-0500 SaO2% (BldA) [Mass fraction]98 %DO Robert Zuly Work Phone: [facility]01-09-2024 14:29-0500 Systolic blood mm[Hg]DO Robert Zuly Work Phone: [facility]01-09-2024 13:06-0500 Body vfmkffudzdy54.3 [degF]DO Robert Zuly Work Phone: [facility]01-09-2024 11:38-0500 Body kkfpeg999.1 cmDO Robert Zuly Work Phone: [facility]01-09-2024 11:38-0500 Body unckvy90.1 kgDO Robert Zuly Work Phone: [facility]08-25-2023 13:49-0400 Diastolic blood fqsmtsux35 mm[Hg]Amor NILL [facility] Keuocvjl80-38-2190 13:49-0400Heart rate 80 /minMichael NILL [facility] Kaynbjdg19-25-0117 13:49-0400 Respiratory rate16 /minMichael NILL [facility] Ezhdkxph79-30-0348 13:49-0400Systolic blood dnuotbpk709 mm[Hg]Amor NILL [facility] Hope Encounters Encounter DateEncounter TypeCare ProviderFacilityStart: 02-06-2025 End: 96-29-0597Rhkiop flowsheetSteven A Rusher DPM Work Phone: [facility] PodiatryStart: 02-06-2025 End: 09-23-8757Wnonfc flowsheetSteven A Rusher DPM Work Phone: noWhy Not Give Back [place] PodiatryStart: 02-06-2025 End: 84-63-6394Mptgocr encounter procedureSteven A Rusher DPM Work Phone: noWin[facility] Services PodiatryComment on above:Dermatophytosis of nail (Primary Dx); Dystrophic nail; Pain around toenail, right foot; Pain around toenail, left footStart: 02-06-2025 End: 75-83-8683pjfhpldrkcQNXWAU A RUSHERNot AvailableStart: 01-18-2025 End: 50-36-8301mdqqzalevyTyye Naderer MD Work Phone: [facility] Work Phone: Start: 01-18-2025 End: 36-51-8436Ixpxfcc encounter Marianna Simpson MD-[facility] Medicine [place] Work Phone: Start: 01-02-2025 End: 19-65-2555NhypmrYxrf Naderer MD Work Phone: noms CWM FMComment on above:DALILA (generalized anxiety disorder)Start: 12-15-2024 End: 79-59-3553nnztrauifnHSZPKBethesda North Hospitaltart: 11-10-2024 End: 62-88-4966uwopnhyfheWCRYJBethesda North Hospitaltart: 11-02-2024 End: 96-29-7490Axsdfg flowsheetSteven A Rusher DPM Work Phone: noms PODIATRYStart: 11-02-2024 End: 34-21-6563Elqajt flowsheetSteven A Rusher DPM Work Phone: noms PODIATRYStart: 11-02-2024 End: 31-63-7292Cxffsjs encounter procedureSteven A Rusher DPM Work Phone: noms PODIATRYComment on above:Dermatophytosis of nail (Primary Dx); Dystrophic nail; Pain around toenail, right foot; Pain around toenail, left footStart: 11-02-2024 End: 72-55-5565qxweejhcnaHJSIJR A RUSHERNot AvailableStart: 09-29-2024 End: 14-44-8260Iygvtn Javon Simpson MD Work Phone: noms CWM FMComment on above:DALILA (generalized anxiety disorder) ([facility]/HCC)Start: 09-13-2024 End: 27-03-2086Bauogr outpatient visit 15 minutesRemigio Simpson MD Work Phone: NOMS CWM FMComment on above:Dehydration (Primary Dx); Nausea and vomiting, unspecified vomiting type; Lewy body dementia with behavioral disturbance (CMS/HCC); DALILA (generalized anxiety disorder) (CMS/HCC); Secondary parkinsonism, unspecifiedStart: 09-13-2024 End: 76-29-3447bxqzvifucmNELZ NADERERNot AvailableStart: 09-13-2024 End: 30-45-2357Xirafk Lasha Simpson MD Work Phone: [facility] CWM FMStart: 09-13-2024 End: 06-14-2018Nkjmva Lasha Simpson MD Work Phone: [facility] CWM FMStart: 09-12-2024 End: 74-74-6109Vpfvhqhuh encounterRemigio Simpson MD Work Phone: [facility] CWM FMStart: 08-22-2024 End: 22-73-5940ZrrvgaMdbn Naderer MD Work Phone: [facility] CWM FMComment on above:Candidal skin infection (Primary Dx); Constipation, unspecified constipation typeStart: 08-14-2024 End: 73-69-9472Rgxlmblxr encounterRemigio Simpson MD Work Phone: [facility] CWM FMComment on above:Med RefillStart: 08-02-2024 End: 25-80-7665zvrejcbpmkIFBI NADERERNot AvailableStart: 08-01-2024 End: 85-76-1247ddozitphrcUFZVRL A RUSHERNot AvailableStart: 07-31-2024 End: 31-98-5527xeiysrsebhMQNSTRGSOLV HASSETTNot AvailableStart: 07-27-2024 End: 95-85-7326UghsilFbkzxauns Lyndsay Killian APRN.CNP Work Phone: NeurologyComment on above:Refill RequestStart: 07-10-2024 End: 66-47-9673Umruehljm department patient visitRACHEL AMEGSelect Medical Specialty Hospital - Columbustart: 90-24-8110Rzakziwdi department patient visitWIJUAN MIGUEL [facility] Healthcaretart: 07-10-2024 End: 90-61-8130Cjnqsonca Result EncounterRemigio Simpson MD Work Phone: noms External Department UnsolicitedStart: 07-10-2024 End: 10-53-3003Ufbhvhgoy Result EncounterRemigio Simpson MD Work Phone: noms External Department UnsolicitedStart: 07-10-2024 End: 33-86-2394Vmvkkbif Result EncounterRemigio Simpson MD Work Phone: noms External Department UnsolicitedStart: 07-10-2024 End: 13-88-7147Jnnlzmrk ReferredRemigio Simpson MD Work Phone: [facility] Path Spec Hope HospStart: 07-10-2024 End: 00-83-4124Btbmyv OnlyRemigio Simpson MD Work Phone: noms CWM FMComment on above:Dysuria (Primary Dx)Start: 07-06-2024 End: 75-12-5091ztxxobpdgjHgitjgvirfd Chandrika MOORE Work Phone: ana [place]IEGOEVUEStart: 80-09-7456oiihifyjqkPTDMercy Health Willard Hospitaltart: 06-09-2024 End: 12-17-9721Ezebrjpcxq and management of inpatientDIONIS [facility] Toledotart: 03-72-4823Buk-patient / Non-visitRemigio Simpson MD Work Phone: [facility] Work Phone: Start: 88-25-1238ytkmlhyncrThbi Naderer Facility:[facility] Hospitaltart: 23-00-6204Tjvauqlvug Recurring Remigio Simpson MD Work Phone: [facility]- CredibleStart: 05-29-2024 End: 85-40-9445Upwdde outpatient new 45 minutesChristopher Chandrika DO Work Phone: ana NORWALKComment on above:Lewy body dementia with psychotic disturbance, unspecified dementia severity (CMS/HCC) (Primary Dx) Start: 05-29-2024 End: 17-11-6640dfffeedtukSdwwadgfk F Nelson APRN.[employer] Work Phone: NeurologyComment on above:HelloStart: 05-26-2024 End: 76-64-0757Yylqcaxdm Result EncounterRemigio Simpson MD Work Phone: noms External Department UnsolicitedStart: 05-26-2024 End: 53-28-9369Nimurtoby Result EncounterRemigio Simpson MD Work Phone: noms External Department UnsolicitedStart: 05-26-2024 End: 68-32-9112Kgutoagew encounterSera Killian APRN.[employer]IDE Work Phone: NeurologyComment on above:Called Back; Patient Question (Spouse requesting a return phone call)Start: 05-22-2024 End: 71-23-9679DxejhaYnbtejozj F Nelson APRN.[employer]IDE Work Phone: NeurologyStart: 05-15-2024 End: 83-56-7266Eveewhhle encounterSera Killian APRN.[employer]IDE Work Phone: NeurologyComment on above:Patient Question; Patient Update (Spouse requesting to speak with nurse)Start: 05-04-2024 End: 65-89-4700Dygswb Javon Simpson MD Work Phone: noMS CWM FMComment on above:Generalized weakness (Primary Dx); Rapidly progressive dementia (CMS/HCC); Unsteady gaitStart: 05-03-2024 End: 48-11-5517Nwbiid flowsheetSteven Dylan Uribe DPM Work Phone: noms PODIATRYStart: 05-03-2024 End: 30-02-3408Jbrbhc flowsheetSteven A Rusher DPM Work Phone: noms PODIATRYStart: 05-03-2024 End: 32-35-3368Uxaoidn encounter procedureSteven A Rusher DPM Work Phone: noms PODIATRYComment on above:Dermatophytosis of nail (Primary Dx); Dystrophic nail; Pain around toenail, right foot; Pain around toenail, left footStart: 05-03-2024 End: 33-09-7230peemnmtochKCAKTG A RUSHERNot AvailableStart: 05-01-2024 End: 01-34-7158Qvuntb flowsheetDeneen Miller COVERING AND LINING SUPERVISOR Work Phone: noms FB PTStart: 05-01-2024 End: 99-15-0172Cbruhk HDmessagingosei Miller COVERING AND LINING SUPERVISOR Work Phone: NOUE FB PTStart: 05-01-2024 End: 69-44-0258tkmlifrrgaGsepkoyr Wright COVERING AND LINING SUPERVISOR Work Phone: noms FB PTComment on above:Generalized weakness (Primary Dx); Rapidly progressive dementia (CMS/HCC); Unsteady gaitStart: 04-27-2024 End: 46-14-4403Pivluh HDmessagingosei Miller COVERING AND LINING SUPERVISOR Work Phone: NOGD FB PTStart: 04-27-2024 End: 89-62-0690Rayjwu TimeLynesheetSpot Labsloreta Miller COVERING AND LINING SUPERVISOR Work Phone: NOTQ FB PTStart: 04-27-2024 End: 06-23-7020qpsrjkieubFizfztjp Miller COVERING AND LINING SUPERVISOR Work Phone: NOMS FB PTComment on above:Generalized weakness (Primary Dx); Rapidly progressive dementia (CMS/HCC); Unsteady gaitStart: 04-25-2024 End: 36-09-6169Fylipr flowsMarcello Chávez PTANOMS FB PTStart: 04-25-2024 End: 57-73-1274Xoiqqw flowsheetLaurenh Tattersall PTANOMS FB PTStart: 04-25-2024 End: 11-33-8439Gbmizeplf encounterSera Killian APRN.COFFEE SHOP AIDE Work Phone: NeurologyComment on above:Medication Follow-upStart: 04-25-2024 End: 00-52-2863uksnwpbbrkUuqshe Tattersall PTANOMS FB PTComment on above: Generalized weakness (Primary Dx); Rapidly progressive dementia (CMS/HCC); Unsteady gaitStart: 04-20-2024 End: 78-97-1114Qgbgmv TimeLynesricardoUrgent Careerosei Miller COVERING AND LINING SUPERVISOR Work Phone: NOMS FB PTStart: 04-20-2024 End: 00-32-4146Wpwpdi TimeLynesJose Miller COVERING AND LINING SUPERVISOR Work Phone: NOMS FB PTStart: 04-20-2024 End: 30-32-5094Ysepgpcht encounterSera Killian APRN.COFFEE SHOP AIDE Work Phone: NeurologyStart: 04-20-2024 End: 03-06-6402mcppxbzkanKktvamzg Wright COVERING AND LINING SUPERVISOR Work Phone: NOMS FB PTComment on above:Generalized weakness (Primary Dx); Rapidly progressive dementia (CMS/HCC); Unsteady gaitStart: 04-19-2024 End: 48-50-8692ychvueyqrlQYICCRZIZ F NELSONFacility:[facility] Start: 04-19-2024 End: 03-57-1490Affyguj encounter procedureSera Killian APRN.COFFEE SHOP AIDE Work Phone: NeurologyComment on above:Lewy body dementia with behavioral disturbance (HCC) (Primary Dx); Other depression; RBD (REM behavioral disorder); Secondary parkinsonism, unspecified secondary Parkinsonism type (HCC); Visual hallucinationsStart: 04-18-2024 End: 52-16-3007Fukrfj flowsheetMariah Tattersall PTANOMS FB PTStart: 04-18-2024 End: 15-47-0974Dpajbf flowsheetMariah Tattersall PTANOMS FB PTStart: 04-18-2024 End: 30-00-2656mqiausxufhNrrgjm Tattersall PTANOMS FB PTComment on above: Generalized weakness (Primary Dx); Rapidly progressive dementia (CMS/HCC); Unsteady gaitStart: 04-12-2024 End: 72-78-6472Bogqgmbnd Result EncounterRemigio Simpson MD Work Phone: noms External Department UnsolicitedStart: 04-12-2024 End: 38-81-1633Bsorujacy Result EncounterRemigio Simpson MD Work Phone: noms External Department UnsolicitedStart: 04-12-2024 End: 66-28-7011Vvlfqw OnlyRemigio Simpson MD Work Phone: noms CWM FMComment on above:Dysuria (Primary Dx) Urinary tract infection without hematuria, site unspecifiedStart: 04-06-2024 End: 81-01-2886Orkmid flowsheetMargriceldah Tattersall PTANOMS FB PTStart: 04-06-2024 End: 59-25-2320Djyodd flowsheetMargriceldah Tattersall PTANOMS FB PTStart: 04-06-2024 End: 28-37-7051vxpuktvdniGgyeie Tattersall PTANOMS FB PTComment on above: Generalized weakness (Primary Dx); Rapidly progressive dementia (CMS/HCC); Unsteady gaitStart: 04-04-2024 End: 28-55-8192Iebdnq flowsheetKyle J Tabby PT Work Phone: NOMS FB PTStart: 04-04-2024 End: 69-84-3008Avacvb flowsheetKyle J Tabby PT Work Phone: NOMS FB PTStart: 04-04-2024 End: 55-75-6793bsfoxruvlzNyid J Tabby PT Work Phone: NOMS FB PTComment on above:Generalized weakness (Primary Dx); Rapidly progressive dementia (CMS/HCC); Unsteady gait; DizzinessStart: 03-30-2024 End: 12-70-4245zzvoksjkxgKoyacjoc Wright COVERING AND LINING SUPERVISOR Work Phone: NOMS FB PTComment on above:Generalized weakness (Primary Dx); Rapidly progressive dementia (CMS/HCC); Unsteady gaitStart: 03-28-2024 End: 97-25-6593Cscglf flowsheetBeti Tattersall PTANOMS FB PTStart: 03-28-2024 End: 00-37-2009Efhkop flowsheetMariaelana Tattersall PTANOMS FB PTStart: 03-28-2024 End: 28-68-7258keznszculkLtrlbq Tattersall PTANOMS FB PTComment on above: Generalized weakness (Primary Dx); Rapidly progressive dementia (CMS/HCC); Unsteady gaitStart: 03-22-2024 End: 28-62-9318Gyzaim flowsheetCreative Circle Advertising Solutionsle Peerby PT Work Phone: NOUQ FB PTStart: 03-22-2024 End: 41-96-9667Grmlvf flowsheetKyle Science Tabby PT Work Phone: NOMS FB PTStart: 03-22-2024 End: 94-00-4174mdojtgduzwLtul Peerby PT Work Phone: NOMS FB PTComment on above:Generalized weakness (Primary Dx); Rapidly progressive dementia (CMS/HCC); Unsteady gait; DizzinessStart: 03-20-2024 End: 26-44-3410Ztxkhj outpatient visit 25 minutesChristopher Chandrika DO Work Phone: NOMS [address] R[address]TEComment on above:Lewy body dementia with psychotic disturbance, unspecified dementia severity (CMS/HCC) (Primary Dx); AnxietyStart: 03-20-2024 End: 87-20-6194okesrivemtEMTEEEKNFGT HASSETTNot AvailableStart: 03-20-2024 End: 39-79-5986rvnxdqwvsyZcowasxt Wright COVERING AND LINING SUPERVISOR Work Phone: NOMS FB PTComment on above:Generalized weakness (Primary Dx); Rapidly progressive dementia (CMS/HCC); Unsteady gaitStart: 03-16-2024 End: 49-16-5954rarkkbhbxyCpfq Francesco JewellTabby PT Work Phone: NOQM FB PTComment on above:Generalized weakness (Primary Dx); Rapidly progressive dementia (CMS/HCC); Unsteady gaitStart: 03-14-2024 End: 66-85-2514Gfasnnfdx encounterRemigio Simpson MD Work Phone: NOMS CWM FMStart: 03-09-2024 End: 10-15-4615Pwalzu OnlyRemigio Simpson MD Work Phone: NOTK CWM FMStart: 02-17-2024 End: 24-21-8247Sqnvqx Javon Simpson MD Work Phone: NOGF CWM FMComment on above:DALILA (generalized anxiety disorder) (CMS/HCC) (Primary Dx)Start: 02-09-2024 End: 72-80-5744Hwerodwa SupportGeorgina Sanford PT Work Phone: NOGH SWS PTHComment on above:Dizziness (Primary Dx); Rapidly progressive dementia (CMS/HCC); Bilateral primary osteoarthritis of kneeStart: 02-02-2024 End: 40-25-6268Rhgzhj flowsheetSteven A Rusher DPM Work Phone: NORN PODIATRYStart: 02-02-2024 End: 95-35-9552Tkxqzm flowsheetSteven A Rusher DPM Work Phone: NOPK PODIATRYStart: 02-02-2024 End: 79-80-1990Cywbaga encounter procedureSteven A Rusher DPM Work Phone: noms PODIATRYComment on above:Dermatophytosis of nail (Primary Dx); Dystrophic nail; Pain around toenail, right foot; Pain around toenail, left footStart: 01-25-2024 End: 41-55-4675Rfjagu flowsheetChristopher Cobos DO Work Phone: NOMS [address] R[address]TEStart: 01-25-2024 End: 66-03-4877Nyhtcg flowsheetChristopher Chandrika DO Work Phone: noms [address] ROUTEStart: 01-25-2024 End: 97-12-8881Hppvgo outpatient visit 25 minutesChristopher Chandrika DO Work Phone: noms [address] STATE ROUTEComment on above:Lewy body dementia with psychotic disturbance, unspecified dementia severity (CMS/HCC) (Primary Dx)Start: 09-30-2023 End: 33-15-6689jddotmatnnCbouozggspz M HassettFacility:[facility] Hospitaltart: 74-58-7550Zje-patient / Non-visitMD Remigio Simpson Work Phone: [facility] Work Phone: Start: 09-14-2023 End: 65-76-8225Mubntymjru and management of inpatientMD Remigio Simpson Work Phone: [phone] Work Phone: Start: 53-33-8813Qymqdhcnt Result EncounterRemigio Simpson MD Work Phone: noms External Department UnsolicitedStart: 06-30-2023 Clinisync Result EncounterRemigio Simpson MD Work Phone: noms External Department UnsolicitedStart: 06-30-2023 Telephone encounterRemigio Simpson MD Work Phone: noms CWM FMStart: 08-93-0040Kjnzub OnlyRemigio Simpson MD Work Phone: noms CWM FMComment on above:Recurrent UTI (Primary Dx); DALILA (generalized anxiety disorder) (CMS/HCC); Neck pain; MDD (major depressive disorder), recurrent episode, mild (HCC) (CMS/HCC)Start: 77-81-5318Ngqjqohvib and management of inpatientDO Robert Zuly Work Phone: [facility] Work Phone: Start: 11-89-0257Bnh-patient / Non-visitAt[facility] Work Phone: Start: 05-20-2023 End: 49-30-3677Wmuwemgbg department patient visitMarc Volodymyr Simpson MD Facility[facility] HospitalStart: 01-27-2023 End: 13-26-9466gcswkdfovlLikvtki R NILLFacility::[id number]: 01-08-2023 End: 02-31-3188tibbquqoblYwfqyae R NILLFacility:[facility]Start: 01-08-2023 End: 45-08-2480Omyfhne encounter procedureMichael R NILL General Surgery Nill/[facility] Start: 30-92-2063gfstmxecmnEdwgpyv R NILLFacility: BellueStart: 09-10-2022 End: 79-55-8666loqkoelufpRZ REMIGIO A NADERERFacility:N9Htuvk: 06-09-2022 End: 80-77-1404niojimltniIO REMIGIO A NADERERFacility:U2Wbptu: 03-12-2022 End: 65-63-9738wfgvnumveiZS REMIGIO A NADERERFacility:L6Lyttb: 11-04-2021 End: 83-76-9849lcmmhtibalEE REMIGIO A NADERERFacility:H1 Procedures DateProcedureProcedure DetailPerforming ClinicianStart: 84-86-5350Modjtkn bacterial quanttative colony count urineRemigio Simpson MD Work Phone: Start: 82-42-0851NLK UA (CLEAN/CATCH) MICROSCOPIC IF INDICATERemigio Simpson MD Work Phone: Start: 25-30-8287GIP UA (CLEAN/CATCH) MICROSCOPIC IF INDICATERemigio Simpson MD Work Phone: Start: 78-14-7938BEO UA (CLEAN/CATCH) MICROSCOPIC IF INDICATERemigio Simpson MD Work Phone: Start: 84-63-4727VpacwomhfjbVcpa Naderer MD Work Phone: Start: 41-40-4333BXP UA (CLEAN/CATCH) MICROSCOPIC IF INDICATERemigio Simpson MD Work Phone: Start: 10-50-7474LgihmtnsoltCoje Naderer MD Work Phone: Start: 76-05-0517JkkpsxpxttxGhtujuf NILL Start: 47-98-3435ikaen carpal tunnel releaseMichael NILL Start: 13-01-4536dqhy carpal tunnel releaseMichael NILL Adenoid excisionMichael NILL Dilation and curettage of uterusMichael NILL Comment on above:2005History of decompression of median nerveHx of carpal tunnel repairRemigio Simpson MD Work Phone: tonsillectomy 2Michael NILL Comment on above:1958Vaginal hysterectomyMichael NILL Plan of Treatment DateCare ActivityDetailAuthorStart: 91-35-8265Zgwfseolw for malignant neoplasm of colonNOMS HealthcareStart: 95-68-7582VLH Vaccine (1 - 1-dose 75+ series)RSV Vaccine (1 - 1-dose 75+ series)[facility] Hospitaltart: 05-14-2025 End: 45-70-2348Mvcoguu encounter /29/2025 2:15 PM EST Procedure Visit [facility] [address] [place] [phone] Herson Uribe DPM [address] [place] [address] [facility] PodiatryStart: 02-06-2025 End: 06-13-5707Ywbfknb encounter procedureNOMS PODIATRYComment on above: ArrivedStart: 01-18-2025 End: 38-67-8085Vnwjxct encounter /04/2025 10:30 AM EDT Office Visit NOMS CWM FM [address] [place] [address] Remigio Simpson MD [address] [place] [address] NOMS CWM FMStart: 89-25-3520Kbdtxucmp vaccinationInfluenza Vaccine (#1)NOMS HealthcareStart: 75-81-8413Akbaetcqw for malignant neoplasm of breastMammogram NOMS HealthcareStart: 12-04-2024 End: 03-74-4327Rsafxlo encounter vmfqbhiwv45/21/2025 11:00 AM EDT Office Visit NOMS C[facility] [address] [place] [address] Remigio Simpson MD [address] [place] [address] NOMS CW FMStart: 11-02-2024 End: 87-22-1717Kkcavhx encounter procedureNOMS PODIATRYComment on above: ArrivedStart: 09-13-2024 End: 98-97-8697Uhxuckv encounter tivgtmuus09/30/2025 2:15 PM EDT Office Visit NOMS C[facility] FM [address] [place] [address] Remigio Simpson MD [address] [place] [address] ArrivedNOMS CWM FMComment on above:ArrivedStart: 08-01-2024 End: 81-33-1602Qkknmvv encounter kmwcfrabc36/18/2025 9:30 AM EDT Office Visit N[facility]S PODIATRY [address] [place] [address] Herson Uribe DPM [address] [place] [address] NOMS PODIATRYStart: 07-27-2024 End: 93-98-3356Fzlqinm encounter pqlxcronl38/13/2025 10:30 AM EDT Office Visit Neurology [address] [address] Sera Killian APRN.COFFEE SHOP AIDE [address] [place] [address] ReportNeurologyComment on above:ReportStart: 07-19-2024 End: 81-03-6226Dkyqojl encounter procedureANA [facility]BUStart: 07-10-2024 End: 33-00-0523Zzwuxzkv identified in Urine by [facility] Work Phone: Comment on above:Expected: 07/10/2024 (Approximate), Expires: 07/10/2025Start: 07-10-2024 End: 37-22-7380Bhyjnutdou complete panel - UrineUrinalysis with reflex microscopic (clean catch) Lab Routine Dysuria Expected: 07/10/2024 (Approxima te), Expires: 07/10/2025[facility] HospitalComment on above:Expected: 07/10/2024 (Approximate), Expires: 07/10/2025Start: 30-91-3320KtnwcKettering Health Daytontart: 06-19-2024 End: 31-09-3100Vumehgt encounter procedureNOMETROHEALTH [facility] ROUTEStart: 06-12-2024 End: 55-01-3154Kqzsedk encounter kgbtceelv26/27/2025 12:00 PM EST Office Visit [facility] [place] [address] [place] [phone] Rei Cobos DO [address] [place] [address] NOMS [address] STATE ROUTEStart: 05-29-2024 End: 50-78-8334Hftibhi encounter procedureNOMS NE NEUROStart: 30-13-6022Jlihgch Directive DiscussionAdvance Directive DiscussionCleveland ClinicStart: 05-04-2024 End: 01-22-6738rwzdkubovg13/19/2024 11:30 AM EST Treatment NOMS FB PT [address] [place] [address] Deneen Miller, COVERING AND LINING SUPERVISOR [address] [place] [address] NOMS FB PTStart: 05-03-2024 End: 83-98-7885Mciaojv encounter procedureNOMS FH PODIATRYComment on above: ArrivedStart: 05-01-2024 End: 55-32-4958dhdjebtwiy20/16/2024 7:30 AM EST Treatment NOMS FB PT [address] [place] [phone] Deneen Miller, COVERING AND LINING SUPERVISOR [address] [place] [address] NOMS FB PTStart: 04-28-2024 End: 19-38-3736iqamipeoqb85/13/2024 10:00 AM EST Treatment NOMS FB PT [address] [place] [address] Alexandria Ray, PT [address] [place] [address] NOMS FB PTStart: 04-27-2024 End: 78-76-9608rxoqexyosk02/12/2024 10:00 AM EST Treatment NOMS FB PT [address] [place] [address] Alexandria Ray, PT [address] [place] [address] NOMS FB PTStart: 04-25-2024 End: 60-63-0784mmratuvglk11/10/2024 10:30 AM EST Treatment NOMS FB PT [address] [place] [address] Jerry Millertchen, COVERING AND LINING SUPERVISOR [address] [place] [address] NOMS FB PTStart: 04-20-2024 End: 48-43-4616jphckqxbyn79/05/2024 11:30 AM EST Treatment NOMS FB PT [address] [place] [address] Deneen Miller, COVERING AND LINING SUPERVISOR [address] [place] [address] NOMS FB PTStart: 04-18-2024 End: 62-59-8843csfdphllwoYQEQ FB PTComment on above:ArrivedStart: 04-12-2024 End: 35-13-0744Nqbeqzpa identified in Urine by CultureUrine culture (clean catch) Microbiology Routine Dysuria Expected: 04/12/2024 (Approximate), Expires: 04/12/2025[facility] Work Phone: Comment on above:Expected: 04/12/2024 (Approximate), Expires: 04/12/2025Start: 04-12-2024 End: 23-32-7114Nuixtyuvjj complete panel - UrineUrinalysis with reflex microscopic (clean catch) Lab Routine Dysuria Expected: 04/12/2024 (Approxima te), Expires: 04/12/2025[facility] HealthcareComment on above:Expected: 04/12/2024 (Approximate), Expires: 04/12/2025Start: 04-11-2024 End: 68-62-5122vvkusfzfbw64/26/2024 11:00 AM EST Treatment NOMS FB PT [address] [place] [address] Beti Chávez PTANOMS FB PT Start: 04-06-2024 End: 36-73-5829tzbqpheimnAYLH FB PTComment on above:ArrivedStart: 04-04-2024 End: 22-39-7934aralkxjaxmWFGI FB PTComment on above:ArrivedStart: 03-30-2024 End: 51-85-7744dehwgkhewf57/14/2024 11:30 AM EST Treatment NOMS FB PT [address] [place] [address] Deneen Miller, COVERING AND LINING SUPERVISOR [address] [place] [address] NOMS FB PTStart: 03-28-2024 End: 75-77-4734bvrmztzfrl25/12/2024 11:00 AM EST Treatment NOMS FB PT [address] [place] [address] Beti Chávez PTANOMS FB PT Start: 03-22-2024 End: 27-35-2219zrerdjxnnwLLMW FB PTComment on above:ArrivedStart: 03-20-2024 End: 94-99-5400Bvidair encounter oobagncyf05/04/2024 2:00 PM EST Office Visit N[facility] [address] [place] [phone] Rei Cobos, [address] [place] [address] NOMS [facility] ROUTEStart: 03-20-2024 End: 05-42-7496upinkbsxmd44/04/2024 12:30 PM EST Treatment NOMS FB PT [address] [place] [address] Deneen Miller, COVERING AND LINING SUPERVISOR [address] [place] [address] NOMS FB PTStart: 03-16-2024 End: 81-27-8623umnolzcdyg64/31/2024 12:30 PM EDT Evaluation NOMS FB PT [address] [place] [address] Alexandria Ray, PT [address] [place], [place] [phone] NOMShahriar FB PTStart: 03-14-2024 End: 82-90-6452Udtllqad identified in Urine by CultureUrine culture (clean catch) Microbiology Routine Dysuria Expected: 03/14/2024 (Approximate), Expires: 03/14/2025[facility] Work Phone: Comment on above:Expected: 03/14/2024 (Approximate), Expires: 03/14/2025Start: 03-14-2024 End: 96-68-7691Ekwikoyafw complete panel - UrineUrinalysis with reflex microscopic (clean catch) Lab Routine Dysuria Expected: 03/14/2024 (Approxima te), Expires: 03/14/2025[facility] HealthcareComment on above:Expected: 03/14/2024 (Approximate), Expires: 03/14/2025Start: 02-02-2024 End: 96-08-0402Yeoacwc encounter procedureNOMS FH PODIATRYComment on above: ArrivedStart: 01-25-2024 End: 01-16-5257Kqcsfmj encounter eabnvaccn39/10/2024 12:00 PM EDT Office Visit NOMS [facility] [address] [place] [phone] Rei Cobos DO [address] [place] [address] ArrivedNOMS [facility] ROUTEComment on above:ArrivedStart: 95-90-5982Acfhh-19 Vaccine ( season)Covid-19 Vaccine ( season)[facility]tart: 16-74-9115Toiosjefu vaccinationInfluenza Vaccine (#1)NOM HealthcareStart: 27-68-2564Egmlkoaso for malignant neoplasm of colonNODC HealthcareStart: 28-04-6465MfpbbgkkbAvita Health System Galion Hospitaltart: 01-65-8599Iodrpzbizshtxj of prophylactic treatmentAvita Health System Galion Hospitaltart: 98-17-4006Nleewgnv admissionAvita Health System Galion Hospitaltart: 09-06-2023 End: 83-67-0213Oqacjyk encounter lqfrnwfqi07/22/2024 9:00 AM EDT Office Visit NOMS [facility] [address] [place] [address] Remigio Simpson MD [address] [place] [address] NOMS CW FMStart: 06-30-2023 End: 69-46-7664Ucsfgucu identified in Urine by CultureUrine culture (clean catch) Microbiology Routine Dysuria Expected: 06/30/2023 (Approximate), Expires: 06/30/2024[facility] HospitalComment on above:Expected: 06/30/2023 (Approximate), Expires: 06/30/2024Start: 06-30-2023 End: 71-58-5149Umiqmgrkrk complete panel - UrineUrinalysis with reflex microscopic (clean catch) Lab Routine Dysuria Expected: 06/30/2023 (Approxima te), Expires: 06/30/2024[facility] Work Phone: Comment on above:Expected: 06/30/2023 (Approximate), Expires: 06/30/2024Start: 80-50-9863BlrpnkcszAvita Health System Galion Hospitaltart: 59-92-2870Qhftcunxsrxphx of prophylactic treatmentAvita Health System Galion Hospitaltart: 76-98-6315Wogqfjsb admissionAvita Health System Galion Hospitaltart: 00-00-8373NhzdjehgsAvita Health System Galion Hospitaltart: 35-50-8916Tnvszof Directive DiscussionAdvance Directive DiscussionZanesville City Hospitaltart: 03-09-2021 Pneumococcal Vaccine: 50+ (2 of 2 - PCV)Pneumococcal Vaccine: 50+ (2 of 2 - PCV) [facility]art: 61-38-0785Dlendcjjxihn Vaccine: 65+ (2 of 2 - PCV) Pneumococcal Vaccine: 65+ (2 of 2 - PCV)[facility] Hospitaltart: 03-09-2021 Pneumococcal Vaccine: 65+ Years (2 - PCV)Pneumococcal Vaccine: 65+ Years (2 - PCV)[facility] HealthcareStart: 77-04-7277Mflalkokifzy Vaccine: 65+ Years (2 of 2 - PCV)Pneumococcal Vaccine: 65+ Years (2 of 2 - PCV)[facility] HealthcareStart: 09-61-9490Krzgpfcri for osteoporosisBone Density ScreeningZanesville City Hospitaltart: 46-28-3815Vnpfbemt Vaccine (1 of 2)Shingrix Vaccine (1 of 2)[facility] Start: 43-10-8493Bgsrualu ScreeningDiabetes ScreeningZanesville City Hospitaltart: 90-63-2862Tdioe panelLipid ScreeningZanesville City Hospitaltart: 59-55-0652Qbcyplifm for malignant neoplasm of colonZanesville City Hospitaltart: 01-55-5004Qrkxcksyy for malignant neoplasm of breastNOMS HealthcareStart: 71-32-9553Otdwv microalbumin profileDTaP,Tdap,Td Vaccine (1 - Tdap)[facility] Hospitaltart: 69-72-0925Xcqjhkx ScreeningAnxiety ScreeningZanesville City Hospitaltart: 90-84-0944Lqpwziatk C screening Hepatitis C ScreeningZanesville City Hospitaltart: 06-25-1954Medicare Annual Wellness (AWV)Medicare Annual Wellness (AWV)[facility] HealthcareStart: 03-33-1331Zimzrvrbh for malignant neoplasm of colonNOMS HealthcarePatient EducationKeenan Private Hospital Ctr Work Phone: Patient referralKeenan Private Hospital Ctr Work Phone: Immunizations Immunization DateImmunizationNotesCare YcyszgkfXluyygav98-24-6962pnexajktl, high dose seasonal, preservative-freeSteven Rusher DPM Work Phone: NOPike [facility] HospitalEgnuhzmmrp20-13-2407qocneffcp virus vaccine, unspecified formulationRemigio Simpson MD Work Phone: NOPike [facility] HospitalDjmlfgqjig33-12-9861Zffvhgthv, Seasonal, Quadrivalent, AdjuvantedRemigio Simpson MD Work Phone: NOPike [facility] HospitalQadlmaztzs28-02-1844xbterarsc virus vaccine, unspecified formulationRemigio Simpson MD Work Phone: [facility] HospitalPsxyjplmhm24-87-2828AHIY-QtW-6 (COVID-19) mRNAMUL.ORD!l00743Anmuqit NILL [facility] Surgery Bynjdhqf65-08-2136Cuqnzothd, High-dose Seasonal, Quadrivalent, Preservative FreeMaría Elenac Calvin ROGERS Work Phone: [facility] HospitalOcqqdhfqxr61-92-0108RUWR-RuI-9 mRNA (xhvkvufzyyj-tsiq-kisvxsz) vaccineMichael NILL [facility] CenterBnccvuph99-77-5154GECK-BpA-2 (COVID-19) mRNA BNT-162b2 vaxMichael NILL [facility] Oxppvuet44-98-2674Szobokiqv, Seasonal, Quadrivalent, AdjuvantedRemigio Simpson MD Work Phone: [facility] HospitalAnkubvmjqu37-07-6109MCVI-HiN-3 (COVID-19) mRNA BNT-162b2 vaxMichael NILL [facility]efirelands [facility] Surgery BellevueComment on above:Result Comment: 2023-01-04: QDC5945-00-2333IWQA-UhP-7 (COVID-19) mRNA BNT-162b2 vax Amor NILL [facility] BellevueComment on above:Result Comment: 2023-01-04: MLW9882-00-4892bouywaatrcjo polysaccharide vaccine, 23 valentRemigio Simpson MD Work Phone: [facility] HospitalJvfunvllom79-51-6656Tzeivbqnb, Seasonal, Quadrivalent, AdjuvantedMaría Elenac Calvin ROGERS Work Phone: [facility] HospitalRpxgirhihm80-41-6859ddgdcpltn, high dose seasonal, preservative-freeRemigio Simpson MD Work Phone: noP[facility] HospitalNddaahqvre80-31-7263rtrxhsqfj, injectable, quadrivalent, preservative freeRemigio Sipmson MD Work Phone: [facility] HospitalHceoeiqhpr78-48-6934xfduhbugs, seasonal, injectable, preservative freeRemigio Simpson MD Work Phone: [facility] HospitalKtpgxoshlo47-26-7648vzvolhakt, seasonal, injectableRemigio Simpson MD Work Phone: noP[facility] HospitalSpyqpvpzyq31-18-3396kdgwnhziw, seasonal, injectableRemigio Simpson MD Work Phone: [facility] HospitalWmnsyphkwe01-02-6434eifihrvju B vaccine, adult dosageRemigio Simpson MD Work Phone: [facility] HospitalDbsbdbjvao94-28-1198roxanriss B vaccine, pediatric or pediatric/adolescent dosageRemigio Simpson MD Work Phone: [facility] HospitalZzgeitgtqx42-45-0876cwcttmlwf B vaccine, pediatric or pediatric/adolescent dosageRemigio Simpson MD Work Phone: [facility] Payers DatePayer CategoryPayerPolicy [id number] Health [id number] 2019Medicare [id number] [id number] [id number] 2.840.1.683759.3.579.[id number] 2.840.1.590900.3.579.2.93732-59-9621Jyvvqyq9683498 2..840.1.870306.3.579.2.34136-58-5493Zkjgtzp4531485 2.840.1.238381.3.579.2.02665-55-9623Zdyobwg49413239 2.16840.1.038065.3.579.2.10258-67-8817Mlzxals27457454 2.16840.1.849516.3.579.2.04337-97-7946Snujltu48181249 2.16840.1.600188.3.579.2.38448-78-0653Depwrju373793231 2.16840.1.042132.3.579.2.72727-77-0201Ooplxso70364255 2.0.1.648681.3.579.2.988992-78-5167Nzkqihj02125265 2..1.716755.3.579.2.737552-64-1138Ssmziyv6107051 2.0.1.951931.3.579.2.712458-46-9700Grldcxk7302955 2.0.1.831984.3.579.2.929298-63-6893Zfqxplf2372813 2.0.1.809404.3.579.2.530683-80-0855Coqhybx4851662 2..1.154750.3.579.2.908408-62-6625Zswtkld9509952 2.0.1.327961.3.579.2.619468-52-6182Vvtmsch1643357 2..1.260454.3.579.2.188425-02-6184Ftnrtwi5417987 2.840.1.525889.3.579.2.143005-05-6196Nqhnuav7048896 2.840.1.954850.3.579.2.319729-67-1949Pliqoij4063702 2.0.1.072186.3.579.2.672195-74-9140Gacuxji4893927 2..1.616841.3.579.2.667854-60-1544Ogrwcfp0197847 2..1.035439.3.579.2.912855-40-6234Iaxxpsi9430022 2..1.453190.3.579.2.622861-31-0625Mpbeetp0605974 2..1.984557.3.579.2.619661-57-6726Srhhwqv4527107 2..1.888395.3.579.2.794055-98-0200Rexbyaq5996620 2..1.707416.3.579.2.399096-16-5692Yvaovte9524635 2..1.398398.3.579.2.226634-69-8178Vgldufk1409754 2..1.828072.3.579.2.623687-81-9343Xixsbuy4344091 2..1.061985.3.579.2.218712-01-1367Dolbjsj7230040 2..1.739474.3.579.2.417483-81-4749Maavmyv4431015 2..1.474234.3.579.2.1700Yusjaua83931741 2..1.980532.3.579.2.531 Mqcjeth33355520 2..1.956470.3.579.2.995Jhbatle41013483 2.0.1.549459.3.579.2.902Zwwgpxa55015471 2.16.840.1.867576.3.579.2.531 Social History DateTypeDetailFacilityStart: 01-08-2023 End: 09-19-2973Njtjikz smoking statusNever smoked tobacco (finding)[facility]vueTobacco smoking statusNeverGeneral Surgery BellevueStart: 06-09-2023 End: 61-60-4644Mak [facility]igned At [facility]: 22-66-0740Xvd [facility]igned At [facility]intart: 06-09-2023 End: 49-34-3863Cxccwvn use and exposureSmokeless tobacco non-userNOMS Healthcare Start: 63-60-5984Ahyvcjc intakeDeferNOMS HealthcareStart: 06-09-2023 End: 98-57-6669Zlcytvy of Social functionNOMS HealthcareStart: 12-31-2022 Sfuttynbh59DPZR HealthcareStart: 87-93-4376Ard Assigned At BirthNot on fileNOMS HealthcareStart: 02-02-2024 End: 62-18-8100Bdpbpcasu beverage intakeEx-drinker (finding)NOMS HealthcareDo you belong to any clubs or organizations such as restorationist groups, unions, fraternal or athletic groups, or school groups?NoNOMS HealthcareAre you now , , , , never or living with a partner? MarriedNOMS HealthcareHow often to you have a drink containing alcohol?NeverNOMS HealthcareDo you feel stress - tense, restless, nervous, or anxious, or unable to sleep at night because yourmind is troubled all the time - these days [OSQ] Rather muchNOMS Healthcare(I/We) worried whether (my/our) food would run out before (I/we) got money to buy more.Never trueNOMS HealthcareTobacco smoking status NHISTobacco smoking consumption unknownZanesville City Hospitaltart: 07-11-2024 SexFemale (finding)[facility]NE[facility]: Highlighted row Start: NINFHistory of tobacco usePassive smokerNOMS Healthcare Goals DatePatient GoalDesired Activity/StatePersonal health goal Functional Status JojrDcmaobrifpMnpepxMtbummlt31-95-1807Mceasbgrra statusPatient at Baseline [facility] Work Phone: [phone]g StatusN/AGeneral Surgery Tomy Mental Status AmfyUbjzbrhdsfDswbvtLfqguzkz34-28-8619Rpcojxjav functionCognitive Status [facility] Work Phone: Clinical Notes 03-12-2022 to 02-06-2025 Note Date & ZwjfYtcyTkdsqlma27-94-2848 History of Present illness Narrative* Herson Uribe, DPM - 02/06/2025 9:15 AM EDT Images from the original note were not included. Subjective Patient ID: Donnie Bullock is a 69 y.o. female who presents for Nail care (Donnie Bullock 69yo Established patient presents for routine nail care.). HPI Chief complaint: Presents requesting nail care. [...] transient symptom relief. Risk factors: Post-COVID mental status changes. Parkinson's disease. Mobility, flexibility and dexterity restraints. Toenail deformity. Digital and/or shoe trauma and related complications. Medications Current Outpatient Medications: atorvastatin (Lipitor) 10 MG tablet, Take 1 tablet (10 mg) by mouth Daily, Disp: 30 tablet, Rfl: 11 diazePAM (Valium) 5 MG tablet, TAKE 1 TABLET BY MOUTH FOUR TIMES A DAY NEEDED FOR ANXIETY FOR 10DAYS, Disp: 40 tablet, Rfl: 0 lactulose (Chronulac) 10 GM/15ML solution, Take 15 mL (10 g) by mouth in the morning and 15 mL (10 g) before bedtime., Disp: 900 mL, Rfl: 11 OLANZapine (ZyPREXA) 2.5 MG tablet, Take 1 tablet (2.5 mg) by mouth at bedtime, Disp: 90 tablet, Rfl: 3 senna-docusate sodium (Senokot-S) 8.6-50 MG tablet, Take 2 tablets by mouth in the morning and 2 tablets before bedtime., Disp: 360 tablet, Rfl: 3 sertraline (Zoloft) 25 MG tablet, Take 1 tablet (25 mg) by mouth Daily, Disp: 90 tablet, Rfl: 3 Allergies Alprazolam Past Surgical History Past Surgical History: Procedure Laterality Date CARPAL TUNNEL RELEASE Left 06/15/2014 MTP CARPAL TUNNEL RELEASE Right 06/29/2014 MTP DILATION AND CURETTAGE OF UTERUS 2004 EYE SURGERY HYSTERECTOMY 2008 [place] REMOVE TONSILS/ADENOIDS,12+ Y/O 1959 Family History Family History Problem Relation Name Age of Onset Cancer Mother Ayla Jonas Arthritis Mother Ayla Jonas Depression Mother Ayla Jonas Hypertension Father Carlos Jonas Cancer Father Carlos Jonas Heart disease Sibling Arthritis Maternal Grandmother Dayna Arambula Objective General assessment: Alert and oriented. Pleasant disposition. Accompanied by her spouse, Vimal. Vascular: DP 2/4 bilateral. PT 1/4 bilateral. [...] efficacy. Hygiene and skin care measures discussed. Follow up: 3-4 months recommended. Procedure: Toenail debridement: Aseptic technique: Hand and power instrumentation: Onychodebridement in length and thickness, with curettage of any cryptotic margins, all periungual debris; providingeffective symptom and pressure relief; reducing shoe and digital trauma. This note was created with the assistance of a speech recognition program. While intending to generate a timely document that accurately reflects the content of the visit, no guarantee can be provided that every grammatical or spelling mistake has been or will be identified or corrected. Thank you for your understanding. Hreson Uribe DPM documented in this encounterSouthPointe HospitalDcrjomkaew13-86-7526 NoteDepartment of Psychiatry Outpatient Progress Note Time In: 11:45 Time Out: 12:10 Present At Visit: Patient and Spouse Clinician Location: Clinician in office Patient Location: In office - SUBJECTIVE CC: Chief Complaint Patient presents with Med Management HPI: Donnie Bullock is a 69 y.o. female (currently ) with past psychiatric history of Lewy Body Dementia dx in May of 2022 presenting to the [facility] for a psychiatric evaluation. She is accompanied by her who helps in providing some of the history. Patient has been seen by Neurology (Dr. Marie) since May of 2022 at which time she was diagnosed with Lewy Body Dementia after presenting for several episodes of confusion. Per her , he found her outside wandering and confused overnight in early April. Then, several days later she awoke confused and unsure who her was. She has no notable psychiatric history prior to the onset of her dementia, but her describes her as being a worrier since he has known her. In May of this year (05/2024) she spent about a month inpatient at [facility] and left with a large list of medications detailed below. She was discharged and did well for a few days before further deteriorating and being admitted to [facility] where she spent ~2 weeks and left with the medication regimen she is currently on which includes Olanzapine, Valium as needed, and Sertraline. At last visit rivastigmine patch and lexapro 5 mg was added as well as nuplazid Today patient and reported doing fine ,no major concerns reported.She is reporting visual hallucinations of people but also of some ribbons but she is not bothered or concerned by them and also she has some insight that they are not real.The Nuplazid was not approved by the insurance She denies mood symptoms such as anhedonia, persistent down, depressed, or hopeless mood. She does complain of some difficulty with concentration and per has intermittent crying episodes which are transient. She denies any suicidal ideation now or in the past. --- --- Mood: No anhedonia, No decreased need for sleep, No excessive excitement, No hopelessness, No impulsivity, No mood lability, and No suicidal ideations Anxiety: Generalized worry Trauma/Abuse: No abuse reported Cognition: No agitation, No paranoia, No wandering, Disoriented to time, Hallucinations, and Short term memory loss Sleep: No insomnia Lifestyle Habits: Structured routine of day --- Individualized Service Plan (ISP): Progress Toward ISP Goals/Objectives: --- Therapeutic Intervention(s): Assessed Mood, Assessed Thinking, Assessed Safety, Reviewed Vitals, and Reviewed Medications Response to Intervention: Agreeable --- Psychosocial update: --- Medical update (eg, other health issues, other medication changes): --- Medication Compliance: Greater than 90% OARRS: Reviewed, no concerns noted MEDICAL REVIEW OF SYSTEMS Review of Systems OBJECTIVE Rating Scales Today's DALILA-7 score was: DALILA-7 Total Score: 11 Today's PHQ-9 score was: Mental Status Exam Level of Alertness: alert Appearance: appears stated age and dressed appropriately Eye Contact: normal Build/Stature: overweight Posture: good posture Muscle Tone: normal Gait and Ambulation: normal Station: N/A Attitude Toward Examiner: cooperative and pleasant Behavior: normal Speech: slow Language: expressive normal and receptive normal Mood: euthymic Affect: appropriate Thought Process: goal-directed Thought Content: no suicidal ideation, derealization, and hallucinations Orientation: oriented to person, not oriented to place, and not oriented to time Attention and Concentration: able to appropriately shift attention Memory: able to comment on events, conversation content appropriate, impaired immediate recall, and impaired recent memory Abstraction: Proverbs: Not assessed Abstraction: Object Similarities: Not assessed Estimated Intelligence: average Insight: intact Judgment: social judgment intact Reliability: somewhat reliable Vitals and Weight Visit Vitals BP 125/78 (BP Location: Right arm, Patient Position: Sitting, BP Cuff Size: Adult) Pulse 67 80.7kg Current Medications Current Medications[1] Most Recent Labwork Lab Results Component Value Date WBC 5.79 07/10/2024 HCT 40.0 07/10/2024 HGB 13.5 07/10/2024 PLT 257 07/10/2024 Lab Results Component Value Date NA 136 07/10/2024 K 4.3 07/10/2024 CL 106 07/10/2024 BUN 16 07/10/2024 CREATININE 0.61 07/10/2024 CALCIUM 9.7 07/10/2024 AST 33 06/30/2024 ALT 22 06/30/2024 PROT 7.0 06/30/2024 ALBUMIN 4.4 06/30/2024 Lab Results Component Value Date TSH 2.59 07/10/2024 Lab Results Component Value Date LDL 160 06/10/2024 HDL 70 06/10/2024 CHOLHDLRATIO 3.3 06/10/2024 TRIG 79 06/10/2024 ASSESSMENT AND PLAN Assessment (more content not included)...[facility] 11-10-2024 NoteDepartment of Psychiatry Diagnostic Assessment Time In: 10:46 Time Out: 11:20 Encounter Type: In-Person Patient Name: Donnie Bullock MRN / CSN: [id number] Date of / Age: 6 1955 / 69 y.o. / female Encounter Date: 11/10/24 Diagnosis: There were no encounter diagnoses. Care Team Encounter Provider: Jada Aguillon MD Referring Physician (if known): No ref. provider found Other Referral Sources: Neurologist PCP (if known): Remigio Simpson MD Additional Provider(s): Source of Information: Source of Information: Patient and Spouse Special Needs: Special Needs: memory impairment Subjective Reason for Referral Anxiety Identifying Information: Donnie Bullock is a 69 y.o. 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 female (currently ) with past psychiatric history of Lewy Body Dementia dx in May of 2022 presenting to the [facility] for a psychiatric evaluation. She is accompanied by her who helps in providing some of the history. Patient has been seen by Neurology (Dr. Marie) since May of 2022 at which time she was diagnosed with Lewy Body Dementia after presenting for several episodes of confusion. Per her , he found her outside wandering and confused overnight in early April. Then, several days later she awoke confused and unsure who her was. She has no notable psychiatric history prior to the onset of her dementia, but her describes her as being a worrier since he has known her. In May of this year (05/2024) she spent about a month inpatient at [facility] and left with a large list of medications detailed below. She was discharged and did well for a few days before further deteriorating and being admitted to [facility] where she spent ~2 weeks and left with the medication regimen she is currently on which includes Olanzapine, Valium as needed, and Sertraline. Today, her and her 's major complaint is anxiety. For her this manifests as tightness in the chest, feeling on edge, and worry. She describes much of her anxiety surrounding forgetting things she feels she should know, or feeling as though she is late. Large crowds also bother her. Her describes that even family gatherings of around a dozen familiar people can be overwhelming for her. She is very spiritual and holiness, and enjoys going to restorationist, but the large numbers at her restorationist services can make it difficult for her to initiate going secondary to anxiety. She denies mood symptoms such as anhedonia, persistent down, depressed, or hopeless mood. She does complain of some difficulty with concentration and per has intermittent crying episodes which are transient. She denies any suicidal ideation now or in the past. She describes both her antoni and her grandchildren, of which she has 10, as things that keep her feeling hopeful. Sleep has been reasonably okay. She has occasional trouble falling asleep, but typically goes to bed at ~9-9:30 pm and wakes at 6-6:30 am. She will wake up frequently to use the restroom and requires some reorienting according to her . However, she will fall back asleep without issue. Patient denies any homicidal ideation and has not had any instances of harm towards others when confused. Per her , she is worried about her potential for harm, and asked he lock up all the knives in their home. She endorses some hallucinations. Typically this is animals, small children, and particularly her grandchildren. She will also routinely visualize a bright yellow ribbon often wielded by a young child. These hallucinations are not disturbing to her and rarely interact with her. She had one instance of a disturbing hallucination in which she had severed the heads of all of her grand children and needed to call the risk investigator department to turn herself in. Previous medication trials include: Nuplazid, escitalopram, memantine, and mirtazapine. All of these besides the mirtazapine were discontinued between her stay at [facility] and [facility]. Adverse effects if any were unclear. She does not believe she has previously tried Seroquel, or Buspirone. She will use Valium as needed to control anxiety and panic when encouraged by her . 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 She had been utilizing THC pretzel sticks which both her and her found beneficial. However, they stopped producing that formulation several months ago. Since stopping her feels she has had increased frequency of anxious episodes. More generally her is unclear whic (more content not included)...[facility]06-19-2025 History of Present illness Narrative* Herson Uribe, DPM - 11/02/2024 9:15 AM EDT Images from the original note were not included. Subjective Patient ID: Donnie Bullock is a 68 y.o. female who presents for Toenail Care (Established patient presents today for routine nail care. ). HPI Chief complaint: Presents requesting [...] transient symptom relief. Risk factors: Post-COVID mental status changes. Parkinson's disease. Mobility, flexibility and dexterity restraints. Toenail deformity. Digital and/or shoe trauma and related complications. Medications Current Outpatient Medications: atorvastatin (Lipitor) 10 MG tablet, Take 1 tablet (10 mg) by mouth Daily, Disp: 30 tablet, Rfl: 11 diazePAM (Valium) 5 MG tablet, Take 1 tablet (5 mg) by mouth 4 (four) times a day as needed for anxiety for up to 10 days, Disp: 40 tablet, Rfl: 0 lactulose (Chronulac) 10 GM/15ML solution, Take 15 mL (10 g) by mouth in the morning and 15 mL (10 g) before bedtime., Disp: 900 mL, Rfl: 11 OLANZapine (ZyPREXA) 2.5 MG tablet, Take 1 tablet (2.5 mg) by mouth at bedtime, Disp: 90 tablet, Rfl: 3 senna-docusate sodium (Senokot-S) 8.6-50 MG tablet, Take 2 tablets by mouth in the morning and 2 tablets before bedtime., Disp: 360 tablet, Rfl: 3 sertraline (Zoloft) 25 MG tablet, Take 1 tablet (25 mg) by mouth Daily, Disp: 90 tablet, Rfl: 3 Allergies Alprazolam Past Surgical History Past Surgical History: Procedure Laterality Date CARPAL TUNNEL RELEASE Left 06/15/2014 MTP CARPAL TUNNEL RELEASE Right 06/29/2014 MTP DILATION AND CURETTAGE OF UTERUS 2004 EYE SURGERY HYSTERECTOMY 2007 [place] REMOVE TONSILS/ADENOIDS,12+ Y/O 1959 Family History Family History Problem Relation Name Age of Onset Cancer Mother Ayla Pritesh Arthritis Mother Ayla Pritesh Depression Mother Ayla Pritesh Hypertension Father Carlos Jonas Cancer Father Carlos Pritesh Heart disease Sibling Arthritis Maternal Grandmother Dayna Tangier Objective General assessment: Alert and oriented. Pleasant [...] of any cryptotic margins, all periungual debris; providingeffective symptom and pressure relief; reducing shoe and [...] understanding. Herson Uribe DPM documented in this [facility]06-19-2025 Instructions* Patient Instructions* Herson Uribe DPM - 11/02/2024 9:15 AM EDT Topical care measures as noted documented in this [facility]04-30-2025 History of Present illness Narrative* Remigio Simpson MD - 09/13/2024 2:51 PM EDTAssociated Problem(s): Nausea and vomiting No further symptoms and use medication PRN. * Remigio Simpson MD - 09/13/2024 2:51 PM EDTAssociated Problem(s): Lewy body dementia with behavioral disturbance (CMS/HCC) Symptoms stable and continue medication. * Remigio Simpson MD - 09/13/2024 2:50 PM EDTAssociated Problem(s): Dehydration Improved after IV fluids and encourage PO intake. * Remigio Simpson MD - 09/13/2024 2:15 PM EDT Images from the original note were not included. Subjective Patient ID: Donnie Bullock is a 68 y.o. female who presents for Follow-up (Er f/up/Fell out of bed). ER follow up from 09/11 for altered mental status. Developed nausea and vomiting in evening 09/09. Frequent emesis all night and next day slept most of day. History of dementia with confusion and on medication. In evening became more confused and agitated. concerned of possible infection or UTI and to ER. Labs and UA normal. Given IV fluids and much improved after. Normal appetite and no further GI symptoms. No nausea or emesis. Drinking well. Mental status and confusion back to baseline. Review of Systems Respiratory: Negative for cough, shortness of breath and wheezing. Cardiovascular: Negative for chest pain and palpitations. Gastrointestinal: Negative for abdominal pain, diarrhea, nausea and vomiting. Genitourinary: Negative for dysuria. Objective Physical Exam Constitutional: General: She is not in acute distress. Appearance: Normal appearance. HENT: Head: Normocephalic. Right Ear: Tympanic membrane normal. Left Ear: Tympanic membrane normal. Eyes: Extraocular Movements: Extraocular movements intact. Pupils: Pupils are equal, round, and reactive to light. Cardiovascular: Rate and Rhythm: Normal rate and regular rhythm. Heart sounds: No murmur heard. No friction rub. No gallop. Pulmonary: Effort: Pulmonary effort is normal. Breath sounds: Normal breath sounds. No wheezing, rhonchi or rales. Abdominal: General: Bowel sounds are normal. There is no distension. Palpations: Abdomen is soft. Tenderness: There is no abdominal tenderness. There is no guarding or rebound. Musculoskeletal: Cervical back: Neck supple. Right lower leg: No edema. Left lower leg: No edema. Neurological: Mental Status: She is alert. Assessment/Plan Problem List Items Addressed This Visit DALILA (generalized anxiety disorder) ([facility]) Relevant Medications diazePAM (Valium) 2 MG tablet Lewy body dementia with behavioral disturbance ([facility]) Symptoms stable and continue medication. Dehydration - Primary Improved after IV fluids and encourage PO intake. Nausea and vomiting No further symptoms and use medication PRN. documented in this encounterSouthPointe [id number] Telephone encounter Note* Telephone Encounter - Remigio Simpson MD - 09/12/2024 11:27 AM EDT states trying to get Palliative Care through [facility]. They told him a referral has beenfaxed twice but no response. Nothing in her chart. Can you contact them to check on status. [facility] [id number] Miscellaneous Notes* Telephone Encounter - Remigio Simpson MD - 09/12/2024 11:27 AM EDT states trying to get Palliative Care through [facility]. They told him a referral has beenfaxed twice but no response. Nothing in her chart. Can you contact them to check on status. documented in this encounterSouthPointe HospitalZrswpfbryn38-83-4060 Telephone encounter Note* Telephone Encounter - Remigio Simpson MD - 08/22/2024 10:02 PM EDT Sent SouthPointe HospitalFommwtshql10-56-1317 Miscellaneous Notes* Telephone Encounter - Remigio Simpson MD - 08/22/2024 10:02 PM EDT Sent * Telephone Encounter - SUSHMA WILKES - 08/22/2024 11:55 AM EDT Patients called states rash under breast is not getting better and is now under both breast, and would like a cream instead as powder does not stay well. documented in this encounterSouthPointe [id number] Telephone encounter Note* Telephone Encounter - SUSHMA WILKES - 08/22/2024 11:55 AM EDT Patients called states rash under breast is not getting better and is now under both breast, and would like a cream instead as powder does not stay well. [facility]Pointe HospitalQbzeqafmfh76-24-9056 Telephone encounter Note* Telephone Encounter - Remigio Simpson MD - 08/14/2024 3:58 PM EDT Sent. SouthPointe [id number] Miscellaneous Notes* Telephone Encounter - Remigio Simpson MD - 08/14/2024 3:58 PM EDT Sent. * Telephone Encounter - SUSHMA WILKES - 08/14/2024 10:10 AM EDT Patient's called looking for a script for Nystop powder. clm documented in this encounterSouthPointe HospitalMfgxrejtat60-74-0311 Telephone encounter Note* Telephone Encounter - SUSHMA WILKES - 08/14/2024 10:10 AM EDT Patient's called looking for a script for Nystop powder. clm [facility]Pointe HospitalZyhsyzfwwi73-21-3161 Telephone encounter Note* Telephone Encounter - Sera Killian APRN.CNP - 07/27/2024 4:53 PM EDT The following approved medication requests have been transmitted electronically. Requested Prescriptions Signed Prescriptions Disp Refills donepezil (ARICEPT) 5 mg tablet 90 tablet 1 Sig: TAKE 1 TABLET BY MOUTH DAILY AFTER BREAKFAST. Authorizing Provider: SERA KILLIAN APRN.CNP [facility]03-13-2025 Miscellaneous Notes* Telephone Encounter - Sera Killian APRN.CNP - 07/27/2024 4:53 PM EDT The following approved medication requests have been transmitted electronically. Requested Prescriptions Signed Prescriptions Disp Refills donepezil (ARICEPT) 5 mg tablet 90 tablet 1 Sig: TAKE 1 TABLET BY MOUTH DAILY AFTER BREAKFAST. Authorizing Provider: SERA KILLIAN APRN.CNP [facility] History of Present illness Narrative* Remigio Simpson MD - 07/10/2024 10:16 AM EST noticed increased confusion and wants to check urine. Send order for culture and dip to [facility]. documented in this encounterSouthPointe [id number] History of Present illness Narrative* Rei Cobos DO - 07/06/2024 12:10 PM EST I discussed the patient's case with Psychiatry, Dr. Irma Roland, who the patient admitted to Geriatric Psychiatry for a 2-3 week inpatient stay. He did try multiple medication options in order totry to improve the patient's cognition and function. The summary of the ultimate plan is as below and we will also review the discharge summary from him. He does agree with the diagnosis of Lewy bodydementia. Plan: Klonopin 0.25 mg at bedtime (failed higher doses) Lexapro 5mg po daily for depressive symptoms. Nuplazid 34mg po daily Continue memantine - may need to stop this Failed rivastigime Failed Aricept Failed seroquel (too sedating) Failed Haldol Additionally, the family did check about additional doses of benzodiazepines. Psychiatry has informed him that this is not ideal in this situation and recommends against it and we share this recommendation. documented in this encounterSouthPointe [id number] NoteTreatment Review Patient has been doing well. She is sleeping and physician feels she is ready to discharge. Shoe Planner reported that patient will be picked up by at roughly noon. Medications sent to pharmacy and follow up was scheduled. Discharge plan: Home with -outpatient neurology appointment was scheduled. Nuplazid form was filed out and sent in. This may take 1-2 days to complete.[facility]02-19-2025 Note Attestation signed by MINDY Hunt at 07/05/2024 10:51 AM I agree with the content of this note and have no current revisions. Family Therapist discharge plan Per physician, patient is cleared for discharge. Patient will discharge today at 12pm back home with . Patient will be transported by . Patient to follow up with outpatient psychiatry. Family and staff made aware.[facility]02-19-2025 Note Attestation signed by Brianda De Jesus MD at 07/05/2024 3:54 PM By using the attestations below, the signing clinician agrees that I have read and verify that the documentation has been personally reviewed by me and ensure that the documentation accurately reflects the encounter. GC: I personally saw this patient on the day of the encounter, performed the [place] portion(s) of the service and participated in the management and confirm the resident's documentation. Please note there may be an additional personal documentation from me. Additional Comments: PROGRESS NOTE PATIENT: Donnie Bullock, SEX: female, : 1955 SUBJECTIVE Donnie Bullock was seen this morning, resting comfortably in the day room, eating breakfast, denies any complaint. Continues to have regular bowel movements. Plans for discharge today. Objective Patient Vitals for the past 24 hrs: BP Temp Temp src Pulse Resp SpO2 07/05/24 0655 117/81 36.3 ???C (97.3 ???F) -- 74 -- 99 % 07/04/24 1900 142/53 36.5 ???C (97.7 ???F) Temporal 84 14 99 % Physical Exam Constitutional: Appearance: Normal appearance. She is not ill-appearing. HENT: Head: Normocephalic and atraumatic. Nose: Nose normal. Mouth/Throat: Mouth: Mucous membranes are moist. Cardiovascular: Rate and Rhythm: Normal rate and regular rhythm. Pulses: Normal pulses. Pulmonary: Effort: Pulmonary effort is normal. No respiratory distress. Breath sounds: Normal breath sounds. Abdominal: General: Abdomen is flat. Palpations: Abdomen is soft. Tenderness: There is no abdominal tenderness. Musculoskeletal: Right lower leg: No edema. Left lower leg: No edema. Skin: General: Skin is warm. Lab Results Component Value Date NA 140 06/30/2024 K 4.0 06/30/2024 CL 106 06/30/2024 ANIONGAP 10 06/30/2024 BUN 15 06/30/2024 CREATININE 0.59 (L) 06/30/2024 CALCIUM 9.6 06/30/2024 Lab Results Component Value Date BILITOT 0.5 06/30/2024 ALKPHOS 48 06/30/2024 AST 33 06/30/2024 ALT 22 06/30/2024 PROT 7.0 06/30/2024 ALBUMIN 4.4 06/30/2024 Lab Results Component Value Date WBC 5.71 06/30/2024 RBC 4.57 06/30/2024 HGB 13.5 06/30/2024 HCT 40.9 06/30/2024 MCV 89.5 06/30/2024 MCH 29.5 06/30/2024 MCHC 33.0 06/30/2024 RDW 12.4 06/30/2024 NEUTOPHILPCT 75.2 (H) 06/30/2024 LYMPHOPCT 18.4 (L) 06/30/2024 MONOPCT 5.3 06/30/2024 EOSPCT 0.4 06/30/2024 BASOPCT 0.5 06/30/2024 NEUTROABS 4.30 06/30/2024 LYMPHSABS 1.05 (L) 06/30/2024 MONOSABS 0.30 06/30/2024 EOSABS 0.02 06/30/2024 BASOSABS 0.03 06/30/2024 PLT 251 06/30/2024 NRBC 0.0 06/30/2024 No results found for this or any previous visit from the past 1 day. Principal Problem: Neurocognitive disorder with Lewy bodies (CMS/HCC) Active Problems: Slow transit constipation Visual hallucinations Mixed hyperlipidemia Pain REM sleep behavior disorder MDD (major depressive disorder) Patient Active Problem List Diagnosis Date Noted Pain 07/05/2024 REM sleep behavior disorder 07/05/2024 MDD (major depressive disorder) 07/05/2024 Mixed hyperlipidemia 06/26/2024 Neurocognitive disorder with Lewy bodies (CMS/HCC) 06/10/2024 Slow transit constipation 06/10/2024 Visual hallucinations 06/10/2024 Paroxysmal supraventricular tachycardia 06/10/2024 Personal history of COVID-19 06/10/2024 Current Facility-Administered Medications: acetaminophen (Tylenol) tablet 650 mg, 650 mg, oral, q6h PRN, Derrick Duckworth MD, 650 mg at 06/29/24 130 atorvastatin (Lipitor) tablet 10 mg, 10 mg, oral, Nightly, Du Mcmillan MD, 10 mg at 07/04/242037 bisacodyl (Dulcolax) suppository 10 mg, 10 mg, rectal, Daily PRN, Ashleigh Guillory, 10 mg at 06/29/24 180 clonazePAM (KlonoPIN) disintegrating tablet 0.25 mg, 0.25 mg, oral, Nightly, Irma Greco DO, 0.25 mg at 07/04/242037 escitalopram (Lexapro) tablet 5 mg, 5 mg, oral, Daily, Ceci Salguero MD, 5 mg at 07/05/2415 melatonin tablet 20 mg, 20 mg, oral, Nightly, Irma Greco DO, 20 mg at 07/04/242037 memantine (Namenda) tablet 5 mg, 5 mg, oral, BID, Irma Greco DO, 5 mg at 07/05/24 0815 OLANZapine (ZyPREXA) injection 2.5 mg, 2.5 mg, intramuscular, BID PRN, Mily Juarez MD pimavanserin (Nuplazid) capsule 34 mg, 34 mg, oral, Daily, Irma Greco DO, 34 mg at 07/05/24 0815 polyethylene glycol (Glycolax) packet 17 g, 17 g, oral, Daily PRN, Du Mcmillan MD, 17 g at 06/26/24 0808 QUEtiapine (SEROquel) tablet 25 mg, 25 mg, oral, TID PRN, Mily Juarez MD, 25 mg at 06/29/24 1149 sennosides-docusate sodium (Kriss-Colace) 8.6-50 mg per tablet 2 tablet, 2 tablet, oral, Nightly, Brianda De Jesus MD, 2 tablet at 07/04/242037 ASSESSMENT/PLAN: Constipation, : Continues to have bowel movement, continue scheduled laxative. Candidal intertrigo: Continue nystatin powde (more content not included)... [facility]02-18-2025 NoteFamily Therapist discharge plan Physician is approving of discharge tomorrow. Nuplazid form was filled out and send to [facility]. to pear picker patient noon and have outpatient appointments.[facility]02-18-2025 NotePsychiatry Service Progress Note Identifying Data Patient Name: Donnie Bullock MRN / CSN: [id number] Date of / Age: 6 1955 / 68 y.o. / female Encounter Date: 07/04/24 Diagnosis: Dementia with Lewy Bodies, Associated REM Sleep behavioral disorder Summary Health care surrogate: Vimal Bullock ([phone]) Mrs. Bullock's cognitive decline started in April,. The patient had COVID-19 in April,, she was never hospitalized and/or in the ICU. She was initially getting lost in familiar areas and forgetting words. Then in April, she wandered out of her home barefoot and only wearing a nightgown, during the night. A week after that first incident, she started telling her that he was not her and that there was another Vimal in the home that that does their dishes and laundry. The patient then started saying that there was a lady living with them. She was seen by Dr. Judy Chino, a psychologist in [place]. She then, approximately 1 year ago, began seeing neurology (Dr. Ambrose at [facility]). She also presented to [facility] for a second opinion in April, (MOCA score at that time was 17/30). The patient previously received services through [facility], this care was reported to be for her major neurocognitive disorder. This week the patient was experiencing worsening hallucinations. On Wednesday (06/05/2024) she reported that she killed her 4 kids and grandchildren. She stated she had their head in bags. The next day (06/06/2024) she was increasingly paranoid and told her that the network professional was coming to take her away and she was packing. She experiences visual hallucinations every day, intermittently. In particular, Mrs. Bullock sees babies suffocating and people living in her house. She also reports seeing dogs as well as squirrels on her husbands shoulder when they watch TV together. Furthermore, patient states when she was hospitalized at [facility] for (depressive symptoms) she saw ribbons in the hospital. She denies auditory hallucinations. Per chart review and history provided today there is also concern for capgras delusions, in the past patient has stated to Mr. Bullock you look like my Vimal, but you are not him. The patient does not become verbally and/or physically aggressive. She is exit seeking and left her house once in recent times. The patient exhibits signs and symptoms of worsening anxiety in recent times. She becomes very restless when anxious and paces around her home. The patient reports she is afraid when she feels lost. She struggles with recent and remote memory. Her memory, attention and concentration fluctuates. Mrs. Bullock has struggled with constipation her entire life. Patient is described as slurring her words at times and having word finding difficulty. No aphasia. Mrs. Bullock experienced worsening rigidity and attends physical therapy 2 times a week. She has an unsteady, shuffling gait with decreased arm swinging. She has orthostatic hypotension. She does not have trouble falling asleep. She is awake 7-8 times during the night, to use the restroom. She has vivid dreams. No dream re-enactment. No physical aggression and/or sleep walking during the night. Patient dresses self and showers self. Once a week daughter in law helps her bathe. (Vimal) does the cooking and cleaning, laundry, finances and medication management. She does not drive (stopped driving in April,). The patient was ambulating with a cane and then did not want to use it anymore. Now she walks for 10 mins at a time on her own. No recent falls. No head trauma. She is able to feed self and usually toilets by self (she was incontinent in the past). Patient/Collateral reports that the patient has low mood, hopelessness, helplessness, anhedonia, hypersomnolence throughout the day and decreased energy. She does not engage in any of her previous hobbies. She is isolated and does not want to go out with friends. She feels she is a burden to her family. No suicidal ideation, plan and intent. No homicidal ideation, plan and intent. Current Home Medications and Schedule: 8 am- Senna 2 tablets and Hydroxyzine 25 mg 6 PM- Haloperidol 0.5 mg 8 PM- Senna 2 tablets, mirtazapine 7.5 mg and hydroxyzine 25 mg PRN medications: Diazepam 2 mg QID PRN for anxiety, Acetaminophen 650 mg, oral, for mild pain, and Polyethylene Glycol 17g , oral, for constipation Previous medications: - Donepezil 5 mg, family discontinued at the end of April, due to worsening hallucinations - Alprazolam for anxiety - Risperidone, family does not recall the patient taking this medication - Melatonin for possible REM sleep behavior disorder, reported to worsen hallucinations Psychiatric course: 06/13: Increased Seroquel 12.5 mg to 25 mg TID. Discontinued Mirt (more content not included)...[facility]02-18-2025 Note Attestation signed by rBianda De Jesus MD at 07/04/2024 12:13 PM By using the attestations below, the signing clinician agrees that I have read and verify that the documentation has been personally reviewed by me and ensure that the documentation accurately reflects the encounter. GC: I personally saw this patient on the day of the encounter, performed the [place] portion(s) of the service and participated in the management and confirm the resident's documentation. Please note there may be an additional personal documentation from me. Additional Comments: PROGRESS NOTE PATIENT: Donnie Bullock, SEX: female, : 1955 SUBJECTIVE Donnie Bullock was seen this morning, resting comfortably in the activity room, eating breakfast, denies any complaints. Continues to have bowel movement every other day. Objective Patient Vitals for the past 24 hrs: BP Temp Pulse Resp SpO2 07/04/24 0700 111/61 36.5 ???C (97.7 ???F) 79 17 100 % 07/03/24 1901 123/59 36.6 ???C (97.9 ???F) 79 18 99 % Physical Exam Constitutional: Appearance: Normal appearance. She is not ill-appearing. HENT: Head: Normocephalic and atraumatic. Nose: Nose normal. Mouth/Throat: Mouth: Mucous membranes are moist. Cardiovascular: Rate and Rhythm: Normal rate and regular rhythm. Pulses: Normal pulses. Pulmonary: Effort: Pulmonary effort is normal. No respiratory distress. Breath sounds: Normal breath sounds. Abdominal: General: Abdomen is flat. Palpations: Abdomen is soft. Tenderness: There is no abdominal tenderness. Musculoskeletal: Right lower leg: No edema. Left lower leg: No edema. Skin: General: Skin is warm. Lab Results Component Value Date NA 140 06/30/2024 K 4.0 06/30/2024 CL 106 06/30/2024 ANIONGAP 10 06/30/2024 BUN 15 06/30/2024 CREATININE 0.59 (L) 06/30/2024 CALCIUM 9.6 06/30/2024 Lab Results Component Value Date BILITOT 0.5 06/30/2024 ALKPHOS 48 06/30/2024 AST 33 06/30/2024 ALT 22 06/30/2024 PROT 7.0 06/30/2024 ALBUMIN 4.4 06/30/2024 Lab Results Component Value Date WBC 5.71 06/30/2024 RBC 4.57 06/30/2024 HGB 13.5 06/30/2024 HCT 40.9 06/30/2024 MCV 89.5 06/30/2024 MCH 29.5 06/30/2024 MCHC 33.0 06/30/2024 RDW 12.4 06/30/2024 NEUTOPHILPCT 75.2 (H) 06/30/2024 LYMPHOPCT 18.4 (L) 06/30/2024 MONOPCT 5.3 06/30/2024 EOSPCT 0.4 06/30/2024 BASOPCT 0.5 06/30/2024 NEUTROABS 4.30 06/30/2024 LYMPHSABS 1.05 (L) 06/30/2024 MONOSABS 0.30 06/30/2024 EOSABS 0.02 06/30/2024 BASOSABS 0.03 06/30/2024 PLT 251 06/30/2024 NRBC 0.0 06/30/2024 No results found for this or any previous visit from the past 1 day. Principal Problem: Neurocognitive disorder with Lewy bodies (CMS/HCC) Active Problems: Slow transit constipation Visual hallucinations Mixed hyperlipidemia Patient Active Problem List Diagnosis Date Noted Mixed hyperlipidemia 06/26/2024 Neurocognitive disorder with Lewy bodies (CMS/HCC) 06/10/2024 Slow transit constipation 06/10/2024 Visual hallucinations 06/10/2024 Paroxysmal supraventricular tachycardia (CMS/HCC) 06/10/2024 Personal history of COVID-19 06/10/2024 Current Facility-Administered Medications: acetaminophen (Tylenol) tablet 650 mg, 650 mg, oral, q6h PRN, Derrick Duckworth MD, 650 mg at 06/29/24 1304 atorvastatin (Lipitor) tablet 10 mg, 10 mg, oral, Nightly, Du Mcmillan MD, 10 mg at 07/03/242035 bisacodyl (Dulcolax) suppository 10 mg, 10 mg, rectal, Daily PRN, Ashleigh Guillory, 10 mg at 06/29/24 180 clonazePAM (KlonoPIN) disintegrating tablet 0.25 mg, 0.25 mg, oral, Nightly, Irma Greco DO, 0.25 mg at 07/03/242035 escitalopram (Lexapro) tablet 5 mg, 5 mg, oral, Daily, Ceci Salguero MD, 5 mg at 07/04/24742 melatonin tablet 20 mg, 20 mg, oral, Nightly, Irma Greco DO, 20 mg at 07/03/242043 memantine (Namenda) tablet 5 mg, 5 mg, oral, BID, Irma Greco DO, 5 mg at 07/04/24 0743 OLANZapine (ZyPREXA) injection 2.5 mg, 2.5 mg, intramuscular, BID PRN, Mily Juarez MD pimavanserin (Nuplazid) capsule 34 mg, 34 mg, oral, Daily, Irma Greco DO, 34 mg at 07/04/24 0744 polyethylene glycol (Glycolax) packet 17 g, 17 g, oral, Daily PRN, Du Mcmillan MD, 17 g at 06/26/24 0808 QUEtiapine (SEROquel) tablet 25 mg, 25 mg, oral, TID PRN, Mily Juarez MD, 25 mg at 06/29/24 1149 sennosides-docusate sodium (Kriss-Colace) 8.6-50 mg per tablet 2 tablet, 2 tablet, oral, Nightly, Brianda De Jesus MD, 2 tablet at 07/03/242037 ASSESSMENT/PLAN: Constipation, : Continues to have bowel movement, continue scheduled laxative. Candidal intertrigo: Continue nystatin powder topical apply to under the breast and all the involved areas including groin and abdominal folds Mixed hyperlipidemia: Continue atorvastatin 10 mg by mouth at bedtime daily Depression/Major Ne (more content not included)...[facility]02-17-2025 NoteTreatment Review Per report, pt was talking about janM_SOLUTION squirrels . Pt refused some of her food and medications over the weekend. Pt has been tearful at times. Pt has been compliant with her medications this morning. Pt had a large BM Wednesday and Wednesday. Pt slept for 7 hours. Pt has been wandering the unit at times. Discharge plan: [facility]02-17-2025 NoteTreatment Plan Update Date: 06/10/2024 Time: 9:06 AM Patient Name: Donnie Bullock Date of : 1955 Type of Note: Initial Notes: patient was admitted to [facility] from home after repeated delusional and paranoid statement about babies suffocating and people living in her house , seeing dogs in her home and squirrels on her 's shoulder, and her most recent comment about 'killing her children and grandchildren and having their heads in a bag'. She has also had increasing depression symptoms, including andehonia, isolation, hopelessness, and feeling like a burden to her family. Who is Involved in Treatment: Family and Outpatient patient support team ELOS: 7-14 days Expected Discharge Date: 06/16/2024 Discharge Plan: return home to previous living arrangement with and continue to follow up outpatient Treatment Plan Created/Updated By: Mindy WeinsteinEast [facility]2025 NoteTreatment Plan Update Date: 06/26/2024 Time: 9:24 AM Patient Name: Donnie Bullock Date of : 1955 Type of Note: Weekly Notes: Per report, pt received tylenol for her back pain. Pt slept for 8 hours. Pt was paranoid about her calling her since she was unable to answer it. Pt continues to have constipation. Pt has been exit seeking at night, has been less redirectable, but these episodes have lessened in the overall amount of time. Who is Involved in Treatment: Family ELOS: 7-14 days Expected Discharge Date: 06/26/2024 Discharge Plan: Home Treatment Plan Created/Updated By: MAN[facility]Nation[facility] NoteTreatment Plan Update Date: 06/19/2024 Time: 8:15 AM Patient Name: Donnie Bullock Date of : 1955 Type of Note: Weekly Notes: Patient has been doing better and seen as having less hallucinations than prior. She is compliant with medications and request. She is at times waking up during the night and wandering due to confusion and being lost . Who is Involved in Treatment: Family ELOS: 7-14 days Expected Discharge Date: 06/26/2024 Discharge Plan: home vs placement pending family wishes. Outpatient follow up Treatment Plan Created/Updated By: Augustus Thakkar [facility]02-17-2025 NoteTreatment Plan Update Date: 07/03/2024 Time: 10:09 AM Patient Name: Donnie Bullock Date of : 1955 Type of Note: Weekly Notes: Patient has been compliant with medications but has been struggling with some depressed symptoms because she is missing family. No aggression and hallucinations seem to have improved. Who is Involved in Treatment: Family ELOS: 7-14 days Expected Discharge Date: 07/10/2024 Discharge Plan: home with outpatient follow up Treatment Plan Created/Updated By: [facility]Way[facility]25 NoteProblem: Anxiety Goal: STG-Cooperates with evaluations from physicians/RNs Outcome: Progressing Note: Patient is cooperative with physician and staff. Ongoing monitoring is needed. Goal: STG-Will not pace the floor more than 10 per shift Outcome: Not Progressing Note: Patient has been sitting herself on the floor more often. Problem: Confusion Goal: STG-Engages in social situations appropriately 3 per shift Outcome: Not Progressing Note: Pt is not engaging in groups and will only engage with staff if they approach her. Problem: Psychotic Symptoms Goal: STG-Will report less than 12 hallucinations per shift by discharge Outcome: Progressing Note: Pt has a few hallucinations at times but it has improved greatly. Problem: Constipation Goal: STG-Regular elimination pattern by discharge Outcome: Not Progressing Note: Pt finally had 2 Bms over the weekend after multiple days without. Goal: STG-Willingly takes stool softener medication by discharge Outcome: Progressing Note: Pt has no issues taking medications. Problem: Fall Risk Goal: STG-Zero falls by discharge Outcome: Progressing Note: Patient had not had any falls but we continue to monitor patient. Problem: Hypo/Hypertension Goal: STG-BP maintains 20mmhg of baseline by discharge Outcome: Progressing Note: Patient has been having BP within range. Goal: STG-Willingly allowing vitals twice daily Outcome: Progressing Note: Patient is allowing vitals with no issue but we will keep problem active to continue monitoring.[facility]02-17-2025 Note PROGRESS NOTE PATIENT: Donnie Bullock, SEX: female, : 1955 SUBJECTIVE Donnie Bullock was seen this morning,she is comfortable and eating breakfast. Slept 7 hours overnight, no beh reported. Pt has been having bowel movements and does not report abdominal pain this morning. Objective Patient Vitals for the past 24 hrs: BP Temp Pulse Resp SpO2 07/03/24 0710 123/53 36.7 ???C (98.1 ???F) 76 17 99 % 07/02/24 1908 129/65 36.5 ???C (97.7 ???F) 83 16 98 % 07/02/24 1357 114/69 37.2 ???C (98.9 ???F) 84 16 99 % Physical Exam Constitutional: Appearance: Normal appearance. She is not ill-appearing. HENT: Head: Normocephalic and atraumatic. Nose: Nose normal. Mouth/Throat: Mouth: Mucous membranes are moist. Cardiovascular: Rate and Rhythm: Normal rate and regular rhythm. Pulses: Normal pulses. Pulmonary: Effort: Pulmonary effort is normal. No respiratory distress. Breath sounds: Normal breath sounds. Abdominal: General: Abdomen is flat. Palpations: Abdomen is soft. Tenderness: There is no abdominal tenderness. Musculoskeletal: Right lower leg: No edema. Left lower leg: No edema. Skin: General: Skin is warm. Lab Results Component Value Date NA 140 06/30/2024 K 4.0 06/30/2024 CL 106 06/30/2024 ANIONGAP 10 06/30/2024 BUN 15 06/30/2024 CREATININE 0.59 (L) 06/30/2024 CALCIUM 9.6 06/30/2024 Lab Results Component Value Date BILITOT 0.5 06/30/2024 ALKPHOS 48 06/30/2024 AST 33 06/30/2024 ALT 22 06/30/2024 PROT 7.0 06/30/2024 ALBUMIN 4.4 06/30/2024 Lab Results Component Value Date WBC 5.71 06/30/2024 RBC 4.57 06/30/2024 HGB 13.5 06/30/2024 HCT 40.9 06/30/2024 MCV 89.5 06/30/2024 MCH 29.5 06/30/2024 MCHC 33.0 06/30/2024 RDW 12.4 06/30/2024 NEUTOPHILPCT 75.2 (H) 06/30/2024 LYMPHOPCT 18.4 (L) 06/30/2024 MONOPCT 5.3 06/30/2024 EOSPCT 0.4 06/30/2024 BASOPCT 0.5 06/30/2024 NEUTROABS 4.30 06/30/2024 LYMPHSABS 1.05 (L) 06/30/2024 MONOSABS 0.30 06/30/2024 EOSABS 0.02 06/30/2024 BASOSABS 0.03 06/30/2024 PLT 251 06/30/2024 NRBC 0.0 06/30/2024 No results found for this or any previous visit from the past 1 day. Principal Problem: Neurocognitive disorder with Lewy bodies (CMS/HCC) Active Problems: Slow transit constipation Visual hallucinations Mixed hyperlipidemia Patient Active Problem List Diagnosis Date Noted Mixed hyperlipidemia 06/26/2024 Neurocognitive disorder with Lewy bodies (CMS/HCC) 06/10/2024 Slow transit constipation 06/10/2024 Visual hallucinations 06/10/2024 Paroxysmal supraventricular tachycardia (CMS/HCC) 06/10/2024 Personal history of COVID-19 06/10/2024 Current Facility-Administered Medications: acetaminophen (Tylenol) tablet 650 mg, 650 mg, oral, q6h PRN, Derrick Duckworth MD, 650 mg at 06/29/24 1304 atorvastatin (Lipitor) tablet 10 mg, 10 mg, oral, Nightly, Du Mcmillan MD, 10 mg at 07/02/242000 bisacodyl (Dulcolax) suppository 10 mg, 10 mg, rectal, Daily PRN, Ashleigh Guillory, 10 mg at 06/29/24 180 clonazePAM (KlonoPIN) disintegrating tablet 0.25 mg, 0.25 mg, oral, Nightly, Irma Greco DO, 0.25 mg at 07/02/242000 escitalopram (Lexapro) tablet 5 mg, 5 mg, oral, Daily, Ceci Salguero MD, 5 mg at 07/03/24 0808 lactulose (Chronulac) 10 gram/15 mL solution 30 g, 30 g, oral, TID, Brianda De Jesus MD, 30 g at 07/03/24807 melatonin tablet 20 mg, 20 mg, oral, Nightly, Irma Greco DO, 20 mg at 07/02/242000 memantine (Namenda) tablet 5 mg, 5 mg, oral, BID, Irma Greco DO, 5 mg at 07/03/24807 nystatin (Mycostatin) 100,000 unit/gram powder, , Topical, BID, Du Mcmillan MD, Given at 07/02/242000 OLANZapine (ZyPREXA) injection 2.5 mg, 2.5 mg, intramuscular, BID PRN, Mily Juarez MD pimavanserin (Nuplazid) capsule 34 mg, 34 mg, oral, Daily, Irma Greco DO, 34 mg at 07/03/24807 polyethylene glycol (Glycolax) packet 17 g, 17 g, oral, Daily PRN, Du Mcmillan MD, 17 g at 06/26/24807 QUEtiapine (SEROquel) tablet 25 mg, 25 mg, oral, TID PRN, Mily Juarez MD, 25 mg at 06/29/24 114 sennosides-docusate sodium (Kriss-Colace) 8.6-50 mg per tablet 2 tablet, 2 tablet, oral, BID, Ashleigh Boyceh, 2 tablet at 07/03/24807 ASSESSMENT/PLAN: Constipation, : had BM, pain improved. Continue laxatives Candidal intertrigo: Continue nystatin powder topical apply to under the breast and all the involved areas including groin and abdominal folds Mixed hyperlipidemia: Continue atorvastatin 10 mg by mouth at bedtime daily Depression/Major Neurocognitive Disorder with Lewy bodies: Management per psych. Discussed with nursing staff and primary team. [facility] Note Attestation signed by Irma Greco DO at 07/04/2024 8:36 AM I personally saw and examined the patient on the same date of service as resident/fellow. I discussed the findings and therapeutic plan with the resident/fellow. I agree with the documentation, except for any edits/updates below. Teaching Physician's Revisions: Agree with resident documentation and plan Psychiatry Service Progress Note Identifying Data Patient Name: Donnie Bullock MRN / CSN: [id number] Date of / Age: 6 1955 / 68 y.o. / female Encounter Date: 07/03/24 Diagnosis: Dementia with Lewy Bodies, Associated REM Sleep behavioral disorder Summary Health care surrogate: Vimal Bullock ([phone]) Mrs. Bullock's cognitive decline started in April,. The patient had COVID-19 in April,, she was never hospitalized and/or in the ICU. She was initially getting lost in familiar areas and forgetting words. Then in April, she wandered out of her home barefoot and only wearing a nightgown, during the night. A week after that first incident, she started telling her that he was not her and that there was another Vimal in the home that that does their dishes and laundry. The patient then started saying that there was a lady living with them. She was seen by Dr. Judy Chino, a psychologist in [place]. She then, approximately 1 year ago, began seeing neurology (Dr. Ambrose at [facility]). She also presented to [facility] for a second opinion in April, (MOCA score at that time was 17/30). The patient previously received services through [facility], this care was reported to be for her major neurocognitive disorder. This week the patient was experiencing worsening hallucinations. On Wednesday (06/05/2024) she reported that she killed her 4 kids and grandchildren. She stated she had their head in bags. The next day (06/06/2024) she was increasingly paranoid and told her that the network professional was coming to take her away and she was packing. She experiences visual hallucinations every day, intermittently. In particular, Mrs. Bullock sees babies suffocating and people living in her house. She also reports seeing dogs as well as squirrels on her husbands shoulder when they watch TV together. Furthermore, patient states when she was hospitalized at [facility] for (depressive symptoms) she saw ribbons in the hospital. She denies auditory hallucinations. Per chart review and history provided today there is also concern for capgras delusions, in the past patient has stated to Mr. Bullock you look like my Vimal, but you are not him. The patient does not become verbally and/or physically aggressive. She is exit seeking and left her house once in recent times. The patient exhibits signs and symptoms of worsening anxiety in recent times. She becomes very restless when anxious and paces around her home. The patient reports she is afraid when she feels lost. She struggles with recent and remote memory. Her memory, attention and concentration fluctuates. Mrs. Bullock has struggled with constipation her entire life. Patient is described as slurring her words at times and having word finding difficulty. No aphasia. Mrs. Bullock experienced worsening rigidity and attends physical therapy 2 times a week. She has an unsteady, shuffling gait with decreased arm swinging. She has orthostatic hypotension. She does not have trouble falling asleep. She is awake 7-8 times during the night, to use the restroom. She has vivid dreams. No dream re-enactment. No physical aggression and/or sleep walking during the night. Patient dresses self and showers self. Once a week daughter in law helps her bathe. (Vimal) does the cooking and cleaning, laundry, finances and medication management. She does not drive (stopped driving in April,). The patient was ambulating with a cane and then did not want to use it anymore. Now she walks for 10 mins at a time on her own. No recent falls. No head trauma. She is able to feed self and usually toilets by self (she was incontinent in the past). Patient/Collateral reports that the patient has low mood, hopelessness, helplessness, anhedonia, hypersomnolence throughout the day and decreased energy. She does not engage in any of her previous hobbies. She is isolated and does not want to go out with friends. She feels she is a burden to her family. No suicidal ideation, plan and intent. No homicidal ideation, plan and intent. Current Home Medications and Schedule: 8 am- Senna 2 tablets and Hydroxyzine 25 mg 6 PM- Haloperidol 0.5 mg 8 PM- Senna 2 tablets, mirtazapine 7.5 mg and hydroxyzine 25 mg PRN medications: D (more content not included)...[facility]02-15-2025 Note Attestation signed by Jada Aguillon MD at 07/04/2024 12:20 PM By using the attestations below, the signing clinician agrees that I have read and verify that the documentation has been personally reviewed by me and ensure that the documentation accurately reflects the encounter. GC: I personally saw this patient on the day of the encounter, performed the [place] portion(s) of the service and participated in the management and confirm the resident's documentation. Please note there may be an additional personal documentation from me. Psychiatry Service Progress Note Identifying Data Patient Name: Donnie Bullock MRN / CSN: [id number] Date of / Age: 6 1955 / 68 y.o. / female Encounter Date: 07/01/24 Diagnosis: Dementia with Lewy Bodies, Associated REM Sleep behavioral disorder Summary Health care surrogate: Vimal Bullock ([phone]) Mrs. Bullock's cognitive decline started in April,. The patient had COVID-19 in April,, she was never hospitalized and/or in the ICU. She was initially getting lost in familiar areas and forgetting words. Then in April, she wandered out of her home barefoot and only wearing a nightgown, during the night. A week after that first incident, she started telling her that he was not her and that there was another Vimal in the home that that does their dishes and laundry. The patient then started saying that there was a lady living with them. She was seen by Dr. Judy Chino, a psychologist in [place]. She then, approximately 1 year ago, began seeing neurology (Dr. Ambrose at [facility]). She also presented to the [facility] the [facility] for a second opinion in April, (MOCA score at that time was 17/30). The patient previously received services through [facility], this care was reported to be for her major neurocognitive disorder. This week the patient was experiencing worsening hallucinations. On Wednesday (06/05/2024) she reported that she killed her 4 kids and grandchildren. She stated she had their head in bags. The next day (06/06/2024) she was increasingly paranoid and told her that the network professional was coming to take her away and she was packing. She experiences visual hallucinations every day, intermittently. In particular, Mrs. Bullock sees babies suffocating and people living in her house. She also reports seeing dogs as well as squirrels on her husbands shoulder when they watch TV together. Furthermore, patient states when she was hospitalized at [facility] for (depressive symptoms) she saw ribbons in the hospital. She denies auditory hallucinations. Per chart review and history provided today there is also concern for capgras delusions, in the past patient has stated to Mr. Bullock you look like my Vimal, but you are not him. The patient does not become verbally and/or physically aggressive. She is exit seeking and left her house once in recent times. The patient exhibits signs and symptoms of worsening anxiety in recent times. She becomes very restless when anxious and paces around her home. The patient reports she is afraid when she feels lost. She struggles with recent and remote memory. Her memory, attention and concentration fluctuates. Mrs. Bullock has struggled with constipation her entire life. Patient is described as slurring her words at times and having word finding difficulty. No aphasia. Mrs. Bullock experienced worsening rigidity and attends physical therapy 2 times a week. She has an unsteady, shuffling gait with decreased arm swinging. She has orthostatic hypotension. She does not have trouble falling asleep. She is awake 7-8 times during the night, to use the restroom. She has vivid dreams. No dream re-enactment. No physical aggression and/or sleep walking during the night. Patient dresses self and showers self. Once a week daughter in law helps her bathe. (Vimal) does the cooking and cleaning, laundry, finances and medication management. She does not drive (stopped driving in April,). The patient was ambulating with a cane and then did not want to use it anymore. Now she walks for 10 mins at a time on her own. No recent falls. No head trauma. She is able to feed self and usually toilets by self (she was incontinent in the past). Patient/Collateral reports that the patient has low mood, hopelessness, helplessness, anhedonia, hypersomnolence throughout the day and decreased energy. She does not engage in any of her previous hobbies. She is isolated and does not want to go out with friends. She feels she is a burden to her family. No suicidal ideation, plan and intent. No homicidal ideation, plan and intent. Current Home Medications and (more content not included)...[facility]02-15-2025 NoteProblem: Anxiety Goal: STG-Cooperates with evaluations from physicians/RNs Outcome: Progressing Problem: Confusion Goal: STG-Engages in social situations appropriately 3 per shift Outcome: Progressing Problem: Anxiety Goal: STG-Will not pace the floor more than 10 per shift Outcome: Not [facility]ingUn[facility] Note Attestation signed by MINDY Hunt at 06/30/2024 4:11 PM I agree with the content of this note and have no current revisions. Treatment Review Per report, patient slept around 5 hours last night. Patient was noted at one point to be looking around her room for children; patient was easily redirected back to bed. Patient had an x-ray this morning to check for constipation and bowel obstruction. Patient has been ambulating slightly better throughout the unit. Patient has been noted to be disoriented, dizzy, and has complained of her knees buckling while strolling through the unit. Patient has been cooperative with medications and assessments. Patient has been observed to be grabbing 'the air' and having a conversation with another person not visible. Discharge plan: patient to return home to previous living arrangement with .[facility]02-14-[facility]25 Note Attestation signed by Irma Greco DO at 07/04/2024 8:36 AM I personally saw and examined the patient on the same date of service as resident/fellow. I discussed the findings and therapeutic plan with the resident/fellow. I agree with the documentation, except for any edits/updates below. Teaching Physician's Revisions: Agree with resident documentation and plan Psychiatry Service Progress Note Identifying Data Patient Name: Donnie Bullock MRN / CSN: [id number] Date of / Age: 6 1955 / 68 y.o. / female Encounter Date: 06/30/24 Diagnosis: Dementia with Lewy Bodies, Associated REM Sleep behavioral disorder Summary Health care surrogate: Vimal Bullock ([phone]) Mrs. Bullock's cognitive decline started in April,. The patient had COVID-19 in April,, she was never hospitalized and/or in the ICU. She was initially getting lost in familiar areas and forgetting words. Then in April, she wandered out of her home barefoot and only wearing a nightgown, during the night. A week after that first incident, she started telling her that he was not her and that there was another Vimal in the home that that does their dishes and laundry. The patient then started saying that there was a lady living with them. She was seen by Dr. Judy Chino, a psychologist in [place]. She then, approximately 1 year ago, began seeing neurology (Dr. Ambrose at [facility]). She also presented to the [facility] for a second opinion in April, (MOCA score at that time was 17/30). The patient previously received services through [facility], this care was reported to be for her major neurocognitive disorder. This week the patient was experiencing worsening hallucinations. On Wednesday (06/05/2024) she reported that she killed her 4 kids and grandchildren. She stated she had their head in bags. The next day (06/06/2024) she was increasingly paranoid and told her that the network professional was coming to take her away and she was packing. She experiences visual hallucinations every day, intermittently. In particular, Mrs. Bullock sees babies suffocating and people living in her house. She also reports seeing dogs as well as squirrels on her husbands shoulder when they watch TV together. Furthermore, patient states when she was hospitalized at [facility] for (depressive symptoms) she saw ribbons in the hospital. She denies auditory hallucinations. Per chart review and history provided today there is also concern for capgras delusions, in the past patient has stated to Mr. Bullock you look like my Vimal, but you are not him. The patient does not become verbally and/or physically aggressive. She is exit seeking and left her house once in recent times. The patient exhibits signs and symptoms of worsening anxiety in recent times. She becomes very restless when anxious and paces around her home. The patient reports she is afraid when she feels lost. She struggles with recent and remote memory. Her memory, attention and concentration fluctuates. Mrs. Bullock has struggled with constipation her entire life. Patient is described as slurring her words at times and having word finding difficulty. No aphasia. Mrs. Bullock experienced worsening rigidity and attends physical therapy 2 times a week. She has an unsteady, shuffling gait with decreased arm swinging. She has orthostatic hypotension. She does not have trouble falling asleep. She is awake 7-8 times during the night, to use the restroom. She has vivid dreams. No dream re-enactment. No physical aggression and/or sleep walking during the night. Patient dresses self and showers self. Once a week daughter in law helps her bathe. (Vimal) does the cooking and cleaning, laundry, finances and medication management. She does not drive (stopped driving in April,). The patient was ambulating with a cane and then did not want to use it anymore. Now she walks for 10 mins at a time on her own. No recent falls. No head trauma. She is able to feed self and usually toilets by self (she was incontinent in the past). Patient/Collateral reports that the patient has low mood, hopelessness, helplessness, anhedonia, hypersomnolence throughout the day and decreased energy. She does not engage in any of her previous hobbies. She is isolated and does not want to go out with friends. She feels she is a burden to her family. No suicidal ideation, plan and intent. No homicidal ideation, plan and intent. Current Home Medications and Schedule: 8 am- Senna 2 tablets and Hydroxyzine 25 mg 6 PM- Haloperidol 0.5 mg 8 PM- Senna 2 tablets, mirtazapine 7.5 mg and hydroxyzine 25 mg PRN medications: D (more content not included)...[facility]02-14-2025 Note Attestation signed by Brianda De Jesus MD at 06/30/2024 12:42 PM By using the attestations below, the signing clinician agrees that I have read and verify that the documentation has been personally reviewed by me and ensure that the documentation accurately reflects the encounter. GC: I personally saw this patient on the day of the encounter, performed the [place] portion(s) of the service and participated in the management and confirm the resident's documentation. Please note there may be an additional personal documentation from me. Additional Comments: severe constipation, abdominal x ray noted. Pt is c/o discomfort. Enema ordered. Lactulose dose adjusted. Discussed with psych PROGRESS NOTE PATIENT: Donnie Bullock, SEX: female, : 1955 SUBJECTIVE Donnie Bullock was seen this morning, walking around in the activity room, was having some abdominal cramping, otherwise no nausea or vomiting. Had small bowel movement yesterday with suppositories. Objective Patient Vitals for the past 24 hrs: BP Temp Temp src Pulse Resp SpO2 06/30/24 0650 113/53 36.6 ???C (97.9 ???F) -- 71 -- 97 % 06/29/24 1900 115/63 36.4 ???C (97.6 ???F) Temporal 80 16 100 % 06/29/24 1146 121/67 36.7 ???C (98.1 ???F) -- 83 14 -- Physical Exam Constitutional: Appearance: Normal appearance. She is not ill-appearing. HENT: Head: Normocephalic and atraumatic. Nose: Nose normal. Mouth/Throat: Mouth: Mucous membranes are moist. Cardiovascular: Rate and Rhythm: Normal rate and regular rhythm. Pulses: Normal pulses. Pulmonary: Effort: Pulmonary effort is normal. No respiratory distress. Breath sounds: Normal breath sounds. Abdominal: General: Abdomen is flat. Palpations: Abdomen is soft. Tenderness: There is no abdominal tenderness. Musculoskeletal: Right lower leg: No edema. Left lower leg: No edema. Skin: General: Skin is warm. Lab Results Component Value Date NA 140 06/10/2024 K 4.2 06/10/2024 CL 106 06/10/2024 ANIONGAP 14 06/10/2024 BUN 12 06/10/2024 CREATININE 0.69 06/10/2024 CALCIUM 9.4 06/10/2024 Lab Results Component Value Date BILITOT 0.5 06/10/2024 ALKPHOS 44 06/10/2024 AST 17 06/10/2024 ALT 15 06/10/2024 PROT 6.5 06/10/2024 ALBUMIN 3.9 06/10/2024 Lab Results Component Value Date WBC 4.74 06/12/2024 RBC 4.39 06/12/2024 HGB 13.1 06/12/2024 HCT 40.1 06/12/2024 MCV 91.3 06/12/2024 MCH 29.8 06/12/2024 MCHC 32.7 06/12/2024 RDW 12.3 06/12/2024 NEUTOPHILPCT 43.7 06/12/2024 LYMPHOPCT 46.2 (H) 06/12/2024 MONOPCT 7.6 06/12/2024 EOSPCT 1.7 06/12/2024 BASOPCT 0.6 06/12/2024 NEUTROABS 2.07 06/12/2024 LYMPHSABS 2.19 06/12/2024 MONOSABS 0.36 06/12/2024 EOSABS 0.08 06/12/2024 BASOSABS 0.03 06/12/2024 PLT 255 06/12/2024 NRBC 0.0 06/12/2024 No results found for this or any previous visit from the past 1 day. Principal Problem: Neurocognitive disorder with Lewy bodies (CMS/HCC) Active Problems: Slow transit constipation Visual hallucinations Mixed hyperlipidemia Patient Active Problem List Diagnosis Date Noted Mixed hyperlipidemia 06/26/2024 Neurocognitive disorder with Lewy bodies (CMS/HCC) 06/10/2024 Slow transit constipation 06/10/2024 Visual hallucinations 06/10/2024 Paroxysmal supraventricular tachycardia (CMS/HCC) 06/10/2024 Personal history of COVID-19 06/10/2024 Current Facility-Administered Medications: acetaminophen (Tylenol) tablet 650 mg, 650 mg, oral, q6h PRN, Derrick Duckworth MD, 650 mg at 06/29/24 1304 atorvastatin (Lipitor) tablet 10 mg, 10 mg, oral, Nightly, Du Mcmillan MD, 10 mg at 06/29/242007 bisacodyl (Dulcolax) suppository 10 mg, 10 mg, rectal, Daily PRN, Ashleigh Guillory, 10 mg at 06/29/24 1805 clonazePAM (KlonoPIN) disintegrating tablet 0.25 mg, 0.25 mg, oral, Nightly, Irma Greco DO, 0.25 mg at 06/29/242006 escitalopram (Lexapro) tablet 5 mg, 5 mg, oral, Daily, Ceci Salguero MD, 5 mg at 06/29/24 0915 lactulose (Chronulac) 10 gram/15 mL solution 10 g, 10 g, oral, TID, Ashleigh Guillory, 10 g at 06/29/242007 melatonin tablet 20 mg, 20 mg, oral, Nightly, Irma Greco DO, 20 mg at 06/29/24 2007 memantine (Namenda) tablet 5 mg, 5 mg, oral, BID, Irma Greco DO, 5 mg at 06/29/24 2008 Non-Formulary Medication, 10 mg, oral, Daily, Irma Greco DO nystatin (Mycostatin) 100,000 unit/gram powder, , Topical, BID, Du Mcmillan MD, Given at 06/29/242007 OLANZapine (ZyPREXA) injection 2.5 mg, 2.5 mg, intramuscular, BID PRN, Mily Juarez MD pimavanserin (Nuplazid) capsule 34 mg, 34 mg, oral, Daily, Irma Greco DO, 34 mg at 06/29/24 0915 polyethylene glycol (Glycolax) packet 17 g, 17 g, oral, Daily PRN, Du Mcmillan MD, 17 g at 06/26/24 0808 QUEtiapine (SEROquel) tablet 25 mg, 25 mg, oral, TID PRN, Mily Juarez MD (more content not included)...[facility]02-13-2025 Note Problem: Anxiety Goal: STG-Cooperates with evaluations from physicians/RNs Outcome: Progressing Problem: Confusion Goal: LTG-Take medications as prescribed Outcome: Progressing Problem: Depression Goal: LTG-Engage in self care as tolerated Outcome: Progressing Problem: Fall Risk Goal: LTG-No falls Outcome: [facility]ingUn[facility] Note Attestation signed by Brianda De Jesus MD at 06/29/2024 9:00 PM By using the attestations below, the signing clinician agrees that I have read and verify that the documentation has been personally reviewed by me and ensure that the documentation accurately reflects the encounter. GC: I personally saw this patient on the day of the encounter, performed the [place] portion(s) of the service and participated in the management and confirm the resident's documentation. Please note there may be an additional personal documentation from me. Additional Comments: PROGRESS NOTE PATIENT: Donnie Bullock, SEX: female, : 1955 SUBJECTIVE Donnie Bullock was seen this morning in the activity room, resting comfortably, denies any complaint, still did not move her bowels but she feels like she wants to go to the bathroom, no nausea or vomiting, passing gas, bowel movements were normal. Objective Patient Vitals for the past 24 hrs: BP Temp Temp src Pulse Resp SpO2 06/29/24 0719 136/74 36.4 ???C (97.5 ???F) -- 85 17 97 % 06/28/24 1850 129/81 36.8 ???C (98.2 ???F) Temporal 88 16 97 % Physical Exam Constitutional: Appearance: Normal appearance. She is not ill-appearing. HENT: Head: Normocephalic and atraumatic. Nose: Nose normal. Mouth/Throat: Mouth: Mucous membranes are moist. Cardiovascular: Rate and Rhythm: Normal rate and regular rhythm. Pulses: Normal pulses. Pulmonary: Effort: Pulmonary effort is normal. No respiratory distress. Breath sounds: Normal breath sounds. Abdominal: General: Abdomen is flat. Palpations: Abdomen is soft. Tenderness: There is no abdominal tenderness. Musculoskeletal: Right lower leg: No edema. Left lower leg: No edema. Skin: General: Skin is warm. Lab Results Component Value Date NA 140 06/10/2024 K 4.2 06/10/2024 CL 106 06/10/2024 ANIONGAP 14 06/10/2024 BUN 12 06/10/2024 CREATININE 0.69 06/10/2024 CALCIUM 9.4 06/10/2024 Lab Results Component Value Date BILITOT 0.5 06/10/2024 ALKPHOS 44 06/10/2024 AST 17 06/10/2024 ALT 15 06/10/2024 PROT 6.5 06/10/2024 ALBUMIN 3.9 06/10/2024 Lab Results Component Value Date WBC 4.74 06/12/2024 RBC 4.39 06/12/2024 HGB 13.1 06/12/2024 HCT 40.1 06/12/2024 MCV 91.3 06/12/2024 MCH 29.8 06/12/2024 MCHC 32.7 06/12/2024 RDW 12.3 06/12/2024 NEUTOPHILPCT 43.7 06/12/2024 LYMPHOPCT 46.2 (H) 06/12/2024 MONOPCT 7.6 06/12/2024 EOSPCT 1.7 06/12/2024 BASOPCT 0.6 06/12/2024 NEUTROABS 2.07 06/12/2024 LYMPHSABS 2.19 06/12/2024 MONOSABS 0.36 06/12/2024 EOSABS 0.08 06/12/2024 BASOSABS 0.03 06/12/2024 PLT 255 06/12/2024 NRBC 0.0 06/12/2024 No results found for this or any previous visit from the past 1 day. Principal Problem: Neurocognitive disorder with Lewy bodies (CMS/HCC) Active Problems: Slow transit constipation Visual hallucinations Mixed hyperlipidemia Patient Active Problem List Diagnosis Date Noted Mixed hyperlipidemia 06/26/2024 Neurocognitive disorder with Lewy bodies (CMS/HCC) 06/10/2024 Slow transit constipation 06/10/2024 Visual hallucinations 06/10/2024 Paroxysmal supraventricular tachycardia (CMS/HCC) 06/10/2024 Personal history of COVID-19 06/10/2024 Current Facility-Administered Medications: acetaminophen (Tylenol) tablet 650 mg, 650 mg, oral, q6h PRN, Derrick Duckworth MD, 650 mg at 06/28/24 0829 atorvastatin (Lipitor) tablet 10 mg, 10 mg, oral, Nightly, Du Mcmillan MD, 10 mg at 06/28/242007 bisacodyl (Dulcolax) suppository 10 mg, 10 mg, rectal, Daily PRN, Ashleigh Guillory clonazePAM (KlonoPIN) disintegrating tablet 0.5 mg, 0.5 mg, oral, Nightly, Irma Greco DO, 0.5 mg at 06/28/242008 escitalopram (Lexapro) tablet 5 mg, 5 mg, oral, Daily, Ceci Salguero MD, 5 mg at 06/28/24 1710 lactulose (Chronulac) 10 gram/15 mL solution 10 g, 10 g, oral, BID, Ashleigh Guillory, 10 g at 06/28/242008 melatonin tablet 20 mg, 20 mg, oral, Nightly, Irma Greco DO, 20 mg at 06/28/242007 memantine (Namenda) tablet 5 mg, 5 mg, oral, BID, Irma Greco DO, 5 mg at 06/28/242007 nystatin (Mycostatin) 100,000 unit/gram powder, , Topical, BID, Du Mcmillan MD, Given at 06/29/24 0840 OLANZapine (ZyPREXA) injection 2.5 mg, 2.5 mg, intramuscular, BID PRN, Mily Juarez MD pimavanserin (Nuplazid) capsule 34 mg, 34 mg, oral, Daily, Irma Greco DO, 34 mg at 06/28/24 0829 polyethylene glycol (Glycolax) packet 17 g, 17 g, oral, Daily PRN, Du Mcmillan MD, 17 g at 06/26/24 0808 QUEtiapine (SEROquel) tablet 25 mg, 25 mg, oral, TID PRN, Mily Juarez MD, 25 mg at 06/22/24 2251 sennosides-docusate sodium (Kriss-Colace) 8.6-50 mg per tablet 2 tablet, 2 tablet, oral, BID, Ashleigh Boyceh, 2 tablet at 06/28/242007 ASSESSMENT/PLAN: Dysuria, resolved: Encourage fluid intake, urinalysis (more content not included)...[facility]02-13-2025 Note Attestation signed by Irma Greco DO at 06/29/2024 4:58 PM I personally saw and examined the patient on the same date of service as resident/fellow. I discussed the findings and therapeutic plan with the resident/fellow. I agree with the documentation, except for any edits/updates below. 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 Though of note, her night time rem problems have subsided at this dose. Psychiatry Service Progress Note Identifying Data Patient Name: Donnie Bullock MRN / CSN: [id number] Date of / Age: 6 1955 / 68 y.o. / female Encounter Date: 06/29/24 Diagnosis: Dementia with Lewy Bodies, Associated REM Sleep behavioral disorder Summary Health care surrogate: Vimal Bullock ([phone]) Mrs. Bullock's cognitive decline started in April,. The patient had COVID-19 in April,, she was never hospitalized and/or in the ICU. She was initially getting lost in familiar areas and forgetting words. Then in April, she wandered out of her home barefoot and only wearing a nightgown, during the night. A week after that first incident, she started telling her that he was not her and that there was another Vimal in the home that that does their dishes and laundry. The patient then started saying that there was a lady living with them. She was seen by Dr. Judy Chino, a psychologist in [place]. She then, approximately 1 year ago, began seeing neurology (Dr. Ambrose at [facility]). She also presented to [facility] for a second opinion in April, (MOCA score at that time was 17/30). The patient previously received services through [facility], this care was reported to be for her major neurocognitive disorder. This week the patient was experiencing worsening hallucinations. On Wednesday (06/05/2024) she reported that she killed her 4 kids and grandchildren. She stated she had their head in bags. The next day (06/06/2024) she was increasingly paranoid and told her that the network professional was coming to take her away and she was packing. She experiences visual hallucinations every day, intermittently. In particular, Mrs. Bullock sees babies suffocating and people living in her house. She also reports seeing dogs as well as squirrels on her husbands shoulder when they watch TV together. Furthermore, patient states when she was hospitalized at [facility] for (depressive symptoms) she saw ribbons in the hospital. She denies auditory hallucinations. Per chart review and history provided today there is also concern for capgras delusions, in the past patient has stated to Mr. Bullock you look like my Vimal, but you are not him. The patient does not become verbally and/or physically aggressive. She is exit seeking and left her house once in recent times. The patient exhibits signs and symptoms of worsening anxiety in recent times. She becomes very restless when anxious and paces around her home. The patient reports she is afraid when she feels lost. She struggles with recent and remote memory. Her memory, attention and concentration fluctuates. Mrs. Bullock has struggled with constipation her entire life. Patient is described as slurring her words at times and having word finding difficulty. No aphasia. Mrs. Bullock experienced worsening rigidity and attends physical therapy 2 times a week. She has an unsteady, shuffling gait with decreased arm swinging. She has orthostatic hypotension. She does not have trouble falling asleep. She is awake 7-8 times during the night, to use the restroom. She has vivid dreams. No dream re-enactment. No physical aggression and/or sleep walking during the night. Patient dresses self and showers self. Once a week daughter in law helps her bathe. (Vimal) does the cooking and cleaning, laundry, finances and medication management. She does not drive (stopped driving in April,). The patient was ambulating with a cane and then did not want to use it anymore. Now she walks for 10 mins at a time on her own. No recent falls. No head trauma. She is able to feed self and usually toilets by self (she was incontinent in the past). Patient/Collateral reports that the patient has low mood, hopelessness, helplessness, anhedonia, hypersomnolence throughout the day and decreased energy. She does not engage in any of her previous hobbies. She is isolated and does not want to go out with friends. She feels she is a burden to her family. No suicidal ideation, plan and intent. No homicidal ideation, plan and i (more content not included)...[facility]02-12-2025 Note Treatment Review Per report, pt rated her anxiety and depression at a 8. Pt has been overstimulated lately due to the loudness of the milieu. Pt reported that she was seeing children. Pt was complaining of back pain. Pt has not had a BM for days. Pt had her memantine increased. Discharge plan: [facility]02-12-2025 Note Attestation signed by Brianda De Jesus MD at 06/28/2024 8:23 PM By using the attestations below, the signing clinician agrees that I have read and verify that the documentation has been personally reviewed by me and ensure that the documentation accurately reflects the encounter. GC: I personally saw this patient on the day of the encounter, performed the row[place] portion(s) of the service and participated in the management and confirm the resident's documentation. Please note there may be an additional personal documentation from me. Additional Comments: PROGRESS NOTE PATIENT: Donnie Bullock, SEX: female, : 1955 SUBJECTIVE Donnie Bullock was seen this morning in the activity room, doing well, still having constipation, denies any abdominal pain, nausea or vomiting. Discussed with nursing staff, who discussed with her , she usually have constipation and used lactulose 10 g /15 mL twice daily in addition to her scheduled Senokot. Objective Patient Vitals for the past 24 hrs: BP Temp Temp src Pulse Resp SpO2 06/28/24 0700 113/69 36.8 ???C (98.2 ???F) Temporal 85 -- 97 % 06/27/24 1847 122/75 37 ???C (98.6 ???F) Temporal 92 19 97 % Physical Exam Constitutional: Appearance: Normal appearance. She is not ill-appearing. HENT: Head: Normocephalic and atraumatic. Nose: Nose normal. Mouth/Throat: Mouth: Mucous membranes are moist. Cardiovascular: Rate and Rhythm: Normal rate and regular rhythm. Pulses: Normal pulses. Pulmonary: Effort: Pulmonary effort is normal. No respiratory distress. Breath sounds: Normal breath sounds. Abdominal: General: Abdomen is flat. Palpations: Abdomen is soft. Tenderness: There is no abdominal tenderness. Musculoskeletal: Right lower leg: No edema. Left lower leg: No edema. Skin: General: Skin is warm. Findings: No rash. Neurological: Mental Status: She is oriented to person, place, and time. Psychiatric: Mood and Affect: Mood normal. Lab Results Component Value Date NA 140 06/10/2024 K 4.2 06/10/2024 CL 106 06/10/2024 ANIONGAP 14 06/10/2024 BUN 12 06/10/2024 CREATININE 0.69 06/10/2024 CALCIUM 9.4 06/10/2024 Lab Results Component Value Date BILITOT 0.5 06/10/2024 ALKPHOS 44 06/10/2024 AST 17 06/10/2024 ALT 15 06/10/2024 PROT 6.5 06/10/2024 ALBUMIN 3.9 06/10/2024 Lab Results Component Value Date WBC 4.74 06/12/2024 RBC 4.39 06/12/2024 HGB 13.1 06/12/2024 HCT 40.1 06/12/2024 MCV 91.3 06/12/2024 MCH 29.8 06/12/2024 MCHC 32.7 06/12/2024 RDW 12.3 06/12/2024 NEUTOPHILPCT 43.7 06/12/2024 LYMPHOPCT 46.2 (H) 06/12/2024 MONOPCT 7.6 06/12/2024 EOSPCT 1.7 06/12/2024 BASOPCT 0.6 06/12/2024 NEUTROABS 2.07 06/12/2024 LYMPHSABS 2.19 06/12/2024 MONOSABS 0.36 06/12/2024 EOSABS 0.08 06/12/2024 BASOSABS 0.03 06/12/2024 PLT 255 06/12/2024 NRBC 0.0 06/12/2024 No results found for this or any previous visit from the past 1 day. Principal Problem: Neurocognitive disorder with Lewy bodies (CMS/HCC) Active Problems: Slow transit constipation Visual hallucinations Mixed hyperlipidemia Patient Active Problem List Diagnosis Date Noted Mixed hyperlipidemia 06/26/2024 Neurocognitive disorder with Lewy bodies (CMS/HCC) 06/10/2024 Slow transit constipation 06/10/2024 Visual hallucinations 06/10/2024 Paroxysmal supraventricular tachycardia (CMS/HCC) 06/10/2024 Personal history of COVID-19 06/10/2024 Current Facility-Administered Medications: acetaminophen (Tylenol) tablet 650 mg, 650 mg, oral, q6h PRN, Derrick Duckworth MD, 650 mg at 06/28/24 0829 atorvastatin (Lipitor) tablet 10 mg, 10 mg, oral, Nightly, Du Mcmillan MD, 10 mg at 06/27/242004 bisacodyl (Dulcolax) suppository 10 mg, 10 mg, rectal, Daily PRN, Ashleigh Guillory clonazePAM (KlonoPIN) disintegrating tablet 0.5 mg, 0.5 mg, oral, Nightly, Irma Amayaonov, DO, 0.5 mg at 06/27/242003 lactulose (Chronulac) 10 gram/15 mL solution 10 g, 10 g, oral, BID, Ashleigh Guillory melatonin tablet 20 mg, 20 mg, oral, Nightly, Irma Amayaonov DO, 20 mg at 06/27/242003 memantine (Namenda) tablet 5 mg, 5 mg, oral, BID, Irma Kononov, DO, 5 mg at 06/28/24 0830 nystatin (Mycostatin) 100,000 unit/gram powder, , Topical, BID, Du Mcmillan MD, Given at 06/27/242004 OLANZapine (ZyPREXA) injection 2.5 mg, 2.5 mg, intramuscular, BID PRN, Mily Juarez MD pimavanserin (Nuplazid) capsule 34 mg, 34 mg, oral, Daily, Irma Greco DO, 34 mg at 06/28/24 0829 polyethylene glycol (Glycolax) packet 17 g, 17 g, oral, Daily PRN, Du Mcmillan MD, 17 g at 06/26/24 0808 QUEtiapine (SEROquel) tablet 25 mg, 25 mg, oral, TID PRN, Mily Juarez MD, 25 mg at 06/22/24 2251 sennosides-docusate sodium (Kriss-Colace) 8.6-50 mg per tablet 2 tablet, 2 tablet, oral, BID, Ashleigh Guillory, 2 (more content not included)...[facility]02-12-2025 Note Attestation signed by Irma Greco DO at 06/29/2024 10:19 AM I personally saw and examined the patient on the same date of service as resident/fellow. I discussed the findings and therapeutic plan with the resident/fellow. I agree with the documentation, except for any edits/updates below. Teaching Physician's Revisions: Agree with resident documentation and plan Psychiatry Service Progress Note Identifying Data Patient Name: Donnie Bullock MRN / CSN: [id number] Date of / Age: 6 1955 / 68 y.o. / female Encounter Date: 06/28/24 Diagnosis: Dementia with Lewy Bodies, Associated REM Sleep behavioral disorder Summary Health care surrogate: Vimal Bullock ([phone]) Mrs. Bullock's cognitive decline started in April,. The patient had COVID-19 in April,, she was never hospitalized and/or in the ICU. She was initially getting lost in familiar areas and forgetting words. Then in April, she wandered out of her home barefoot and only wearing a nightgown, during the night. A week after that first incident, she started telling her that he was not her and that there was another Vimal in the home that that does their dishes and laundry. The patient then started saying that there was a lady living with them. She was seen by Dr. Judy Chino, a psychologist in [place]. She then, approximately 1 year ago, began seeing neurology (Dr. Ambrose at [facility]). She also presented to the [facility] the [facility] for a second opinion in April, (MOCA score at that time was 17/30). The patient previously received services through [facility], this care was reported to be for her major neurocognitive disorder. This week the patient was experiencing worsening hallucinations. On Wednesday (06/05/2024) she reported that she killed her 4 kids and grandchildren. She stated she had their head in bags. The next day (06/06/2024) she was increasingly paranoid and told her that the network professional was coming to take her away and she was packing. She experiences visual hallucinations every day, intermittently. In particular, Mrs. Bullock sees babies suffocating and people living in her house. She also reports seeing dogs as well as squirrels on her husbands shoulder when they watch TV together. Furthermore, patient states when she was hospitalized at [facility] for (depressive symptoms) she saw ribbons in the hospital. She denies auditory hallucinations. Per chart review and history provided today there is also concern for capgras delusions, in the past patient has stated to Mr. Bullock you look like my Vimal, but you are not him. The patient does not become verbally and/or physically aggressive. She is exit seeking and left her house once in recent times. The patient exhibits signs and symptoms of worsening anxiety in recent times. She becomes very restless when anxious and paces around her home. The patient reports she is afraid when she feels lost. She struggles with recent and remote memory. Her memory, attention and concentration fluctuates. Mrs. Bullock has struggled with constipation her entire life. Patient is described as slurring her words at times and having word finding difficulty. No aphasia. Mrs. Bullock experienced worsening rigidity and attends physical therapy 2 times a week. She has an unsteady, shuffling gait with decreased arm swinging. She has orthostatic hypotension. She does not have trouble falling asleep. She is awake 7-8 times during the night, to use the restroom. She has vivid dreams. No dream re-enactment. No physical aggression and/or sleep walking during the night. Patient dresses self and showers self. Once a week daughter in law helps her bathe. (Vimal) does the cooking and cleaning, laundry, finances and medication management. She does not drive (stopped driving in April,). The patient was ambulating with a cane and then did not want to use it anymore. Now she walks for 10 mins at a time on her own. No recent falls. No head trauma. She is able to feed self and usually toilets by self (she was incontinent in the past). Patient/Collateral reports that the patient has low mood, hopelessness, helplessness, anhedonia, hypersomnolence throughout the day and decreased energy. She does not engage in any of her previous hobbies. She is isolated and does not want to go out with friends. She feels she is a burden to her family. No suicidal ideation, plan and intent. No homicidal ideation, plan and intent. Current Home Medications and Schedule: 8 am- Senna 2 tablets and Hydroxyzine 25 mg 6 PM- Haloperidol 0.5 mg 8 PM- Senna 2 tablets, mirtazapine 7.5 mg and hydroxyzine 25 mg PRN medications: (more content not included)...[facility]02-11-2025 NoteProblem: Anxiety Goal: STG-Cooperates with evaluations from physicians/RNs Outcome: Progressing Problem: Confusion Goal: LTG-Take medications as prescribed Outcome: Progressing Problem: Depression Goal: LTG-Engage in self care as tolerated Outcome: Progressing Problem: Fall Risk Goal: LTG-No falls [facility]: [facility] NoteFamily Therapist discharge plan Shoe Planner witnessed pt sitting on the floor. Pt reported that she placed herself on the floor, believes that she is going to hell, and this is because she is a bad person and she has not done anything good recently. Shoe Planner informed her of multiple reasons why she is a good person. Pt also felt sad because her family is changing their names since they do not want to be associated with her. After given support, pt was able to get up on her own, and wandered around the unit. [facility]02-11-2025 Note Attestation signed by Brianda De Jesus MD at 06/27/2024 1:10 PM By using the attestations below, the signing clinician agrees that I have read and verify that the documentation has been personally reviewed by me and ensure that the documentation accurately reflects the encounter. GC: I personally saw this patient on the day of the encounter, performed the [place] portion(s) of the service and participated in the management and confirm the resident's documentation. Please note there may be an additional personal documentation from me. Additional Comments: PROGRESS NOTE PATIENT: Donnie Bullock, SEX: female, : 1955 SUBJECTIVE Donnie Bullock was seen this morning, in the activity room, doing well, still have constipation, without abdominal pain, nausea or vomiting, passing gas, denies any other complaint. Discussed with her increasing bowel regimen and considering suppositories as needed. Discussed with nursing staff. Objective Patient Vitals for the past 24 hrs: BP Temp Temp src Pulse Resp SpO2 06/27/24 0641 108/55 36.6 ???C (97.9 ???F) Temporal 76 -- 98 % 06/26/24 1928 139/69 36.4 ???C (97.5 ???F) -- 87 16 98 % Physical Exam Constitutional: Appearance: Normal appearance. She is not ill-appearing. HENT: Head: Normocephalic and atraumatic. Nose: Nose normal. Mouth/Throat: Mouth: Mucous membranes are moist. Cardiovascular: Rate and Rhythm: Normal rate and regular rhythm. Pulses: Normal pulses. Pulmonary: Effort: Pulmonary effort is normal. No respiratory distress. Breath sounds: Normal breath sounds. Abdominal: General: Abdomen is flat. Palpations: Abdomen is soft. Tenderness: There is no abdominal tenderness. Musculoskeletal: Right lower leg: No edema. Left lower leg: No edema. Skin: General: Skin is warm. Findings: No rash. Neurological: Mental Status: She is oriented to person, place, and time. Lab Results Component Value Date NA 140 06/10/2024 K 4.2 06/10/2024 CL 106 06/10/2024 ANIONGAP 14 06/10/2024 BUN 12 06/10/2024 CREATININE 0.69 06/10/2024 CALCIUM 9.4 06/10/2024 Lab Results Component Value Date BILITOT 0.5 06/10/2024 ALKPHOS 44 06/10/2024 AST 17 06/10/2024 ALT 15 06/10/2024 PROT 6.5 06/10/2024 ALBUMIN 3.9 06/10/2024 Lab Results Component Value Date WBC 4.74 06/12/2024 RBC 4.39 06/12/2024 HGB 13.1 06/12/2024 HCT 40.1 06/12/2024 MCV 91.3 06/12/2024 MCH 29.8 06/12/2024 MCHC 32.7 06/12/2024 RDW 12.3 06/12/2024 NEUTOPHILPCT 43.7 06/12/2024 LYMPHOPCT 46.2 (H) 06/12/2024 MONOPCT 7.6 06/12/2024 EOSPCT 1.7 06/12/2024 BASOPCT 0.6 06/12/2024 NEUTROABS 2.07 06/12/2024 LYMPHSABS 2.19 06/12/2024 MONOSABS 0.36 06/12/2024 EOSABS 0.08 06/12/2024 BASOSABS 0.03 06/12/2024 PLT 255 06/12/2024 NRBC 0.0 06/12/2024 No results found for this or any previous visit from the past 1 day. Principal Problem: Neurocognitive disorder with Lewy bodies (CMS/HCC) Active Problems: Slow transit constipation Visual hallucinations Mixed hyperlipidemia Patient Active Problem List Diagnosis Date Noted Mixed hyperlipidemia 06/26/2024 Neurocognitive disorder with Lewy bodies (CMS/HCC) 06/10/2024 Slow transit constipation 06/10/2024 Visual hallucinations 06/10/2024 Paroxysmal supraventricular tachycardia (CMS/HCC) 06/10/2024 Personal history of COVID-19 06/10/2024 Current Facility-Administered Medications: acetaminophen (Tylenol) tablet 650 mg, 650 mg, oral, q6h PRN, Derrick Duckworth MD, 650 mg at 06/26/242043 atorvastatin (Lipitor) tablet 10 mg, 10 mg, oral, Nightly, Du Mcmillan MD, 10 mg at 06/26/242043 bisacodyl (Dulcolax) suppository 10 mg, 10 mg, rectal, Daily PRN, Ashleigh Boyceh clonazePAM (KlonoPIN) disintegrating tablet 0.5 mg, 0.5 mg, oral, Nightly, Irma Kononov, DO, 0.5 mg at 06/26/242043 melatonin tablet 20 mg, 20 mg, oral, Nightly, Irma Kononov, DO, 20 mg at 06/26/242043 memantine (Namenda) tablet 5 mg, 5 mg, oral, Daily, Irma Kononov, DO, 5 mg at 06/26/2408 nystatin (Mycostatin) 100,000 unit/gram powder, , Topical, BID, Du Mcmillan MD, Given at 06/26/242044 OLANZapine (ZyPREXA) injection 2.5 mg, 2.5 mg, intramuscular, BID PRN, Mily Juarez MD pimavanserin (Nuplazid) capsule 34 mg, 34 mg, oral, Daily, Irma Greco DO, 34 mg at 06/26/24 0808 polyethylene glycol (Glycolax) packet 17 g, 17 g, oral, Daily PRN, Du Mcmillan MD, 17 g at 06/26/24 0808 QUEtiapine (SEROquel) tablet 25 mg, 25 mg, oral, TID PRN, Mily Juarez MD, 25 mg at 06/22/24 2251 sennosides-docusate sodium (Kriss-Colace) 8.6-50 mg per tablet 2 tablet, 2 tablet, oral, BID, Ashleigh Guillory ASSESSMENT/PLAN: Dysuria, resolved: Encourage fluid intake, urinalysis shows no evidence of UTI Constipation, slowly improving, adjust bowel regimen, s (more content not included)...[facility]02-11-2025 Note Attestation signed by Irma Greco DO at 06/29/2024 10:19 AM I personally saw and examined the patient on the same date of service as resident/fellow. I discussed the findings and therapeutic plan with the resident/fellow. I agree with the documentation, except for any edits/updates below. Teaching Physician's Revisions: Agree with resident documentation and plan Psychiatry Service Progress Note Identifying Data Patient Name: Donnie Bullock MRN / CSN: [id number] Date of / Age: 6 1955 / 68 y.o. / female Encounter Date: 06/27/24 Diagnosis: Dementia with Lewy Bodies, Associated REM Sleep behavioral disorder Summary Health care surrogate: Vimal Bullock ([phone]) Mrs. Bullock's cognitive decline started in April,. The patient had COVID-19 in April,, she was never hospitalized and/or in the ICU. She was initially getting lost in familiar areas and forgetting words. Then in April, she wandered out of her home barefoot and only wearing a nightgown, during the night. A week after that first incident, she started telling her that he was not her and that there was another Vimal in the home that that does their dishes and laundry. The patient then started saying that there was a lady living with them. She was seen by Dr. Judy Chino, a psychologist in [place]. She then, approximately 1 year ago, began seeing neurology (Dr. Ambrose at [facility]). She also presented to [facility] for a second opinion in April, (MOCA score at that time was 17/30). The patient previously received services through [facility], this care was reported to be for her major neurocognitive disorder. This week the patient was experiencing worsening hallucinations. On Wednesday (06/05/2024) she reported that she killed her 4 kids and grandchildren. She stated she had their head in bags. The next day (06/06/2024) she was increasingly paranoid and told her that the network professional was coming to take her away and she was packing. She experiences visual hallucinations every day, intermittently. In particular, Mrs. Bullock sees babies suffocating and people living in her house. She also reports seeing dogs as well as squirrels on her husbands shoulder when they watch TV together. Furthermore, patient states when she was hospitalized at [facility] for (depressive symptoms) she saw ribbons in the hospital. She denies auditory hallucinations. Per chart review and history provided today there is also concern for capgras delusions, in the past patient has stated to Mr. Bullock you look like my Vimal, but you are not him. The patient does not become verbally and/or physically aggressive. She is exit seeking and left her house once in recent times. The patient exhibits signs and symptoms of worsening anxiety in recent times. She becomes very restless when anxious and paces around her home. The patient reports she is afraid when she feels lost. She struggles with recent and remote memory. Her memory, attention and concentration fluctuates. Mrs. Bullock has struggled with constipation her entire life. Patient is described as slurring her words at times and having word finding difficulty. No aphasia. Mrs. Bullock experienced worsening rigidity and attends physical therapy 2 times a week. She has an unsteady, shuffling gait with decreased arm swinging. She has orthostatic hypotension. She does not have trouble falling asleep. She is awake 7-8 times during the night, to use the restroom. She has vivid dreams. No dream re-enactment. No physical aggression and/or sleep walking during the night. Patient dresses self and showers self. Once a week daughter in law helps her bathe. (Vimal) does the cooking and cleaning, laundry, finances and medication management. She does not drive (stopped driving in April,). The patient was ambulating with a cane and then did not want to use it anymore. Now she walks for 10 mins at a time on her own. No recent falls. No head trauma. She is able to feed self and usually toilets by self (she was incontinent in the past). Patient/Collateral reports that the patient has low mood, hopelessness, helplessness, anhedonia, hypersomnolence throughout the day and decreased energy. She does not engage in any of her previous hobbies. She is isolated and does not want to go out with friends. She feels she is a burden to her family. No suicidal ideation, plan and intent. No homicidal ideation, plan and intent. Current Home Medications and Schedule: 8 am- Senna 2 tablets and Hydroxyzine 25 mg 6 PM- Haloperidol 0.5 mg 8 PM- Senna 2 tablets, mirtazapine 7.5 mg and hydroxyzine 25 mg PRN medications: (more content not included)...[facility]02-10-2025 NoteTreatment Review Per report, pt received tylenol for her back pain. Pt slept for 8 hours. Pt was paranoid about her calling her since she was unable to answer it. Pt continues to have constipation. Pt has been exit seeking at night, has been less redirectable, but these episodes have lessened in the overall amount of time. Discharge plan: [facility]02-10-2025 Note Attestation signed by Brianda De Jesus MD at 06/26/2024 12:16 PM By using the attestations below, the signing clinician agrees that I have read and verify that the documentation has been personally reviewed by me and ensure that the documentation accurately reflects the encounter. GC: I personally saw this patient on the day of the encounter, performed the [place] portion(s) of the service and participated in the management and confirm the resident's documentation. Please note there may be an additional personal documentation from me. Additional Comments: constipation improving PROGRESS NOTE PATIENT: Donnie Bullock, SEX: female, : 1955 SUBJECTIVE Donnie Bullock was seen this morning in her room after she had breakfast, doing well, denies any complain. Resident seen for a follow up/med management for neurocognitive disorder with Lewy bodies, generalized anxiety disorder, paroxysmal supraventricular tachycardia, constipation, and COVID-19 in April 2023; 68 years old female directly admitted to [facility] from home on 06/09/2024 for management of worsening visual hallucinations. No nursing concerns Objective Patient Vitals for the past 24 hrs: BP Temp Pulse Resp SpO2 06/25/24 1900 122/72 36.1 ???C (96.9 ???F) 83 16 98 % Physical Exam Constitutional: Appearance: Normal appearance. She is not ill-appearing. HENT: Head: Normocephalic and atraumatic. Nose: Nose normal. Mouth/Throat: Mouth: Mucous membranes are moist. Cardiovascular: Rate and Rhythm: Normal rate and regular rhythm. Pulses: Normal pulses. Pulmonary: Effort: Pulmonary effort is normal. No respiratory distress. Breath sounds: Normal breath sounds. Abdominal: General: Abdomen is flat. Palpations: Abdomen is soft. Tenderness: There is no abdominal tenderness. Musculoskeletal: Right lower leg: No edema. Left lower leg: No edema. Skin: General: Skin is warm. Findings: No rash. Neurological: Mental Status: She is oriented to person, place, and time. Psychiatric: Mood and Affect: Mood normal. Lab Results Component Value Date NA 140 06/10/2024 K 4.2 06/10/2024 CL 106 06/10/2024 ANIONGAP 14 06/10/2024 BUN 12 06/10/2024 CREATININE 0.69 06/10/2024 CALCIUM 9.4 06/10/2024 Lab Results Component Value Date BILITOT 0.5 06/10/2024 ALKPHOS 44 06/10/2024 AST 17 06/10/2024 ALT 15 06/10/2024 PROT 6.5 06/10/2024 ALBUMIN 3.9 06/10/2024 Lab Results Component Value Date WBC 4.74 06/12/2024 RBC 4.39 06/12/2024 HGB 13.1 06/12/2024 HCT 40.1 06/12/2024 MCV 91.3 06/12/2024 MCH 29.8 06/12/2024 MCHC 32.7 06/12/2024 RDW 12.3 06/12/2024 NEUTOPHILPCT 43.7 06/12/2024 LYMPHOPCT 46.2 (H) 06/12/2024 MONOPCT 7.6 06/12/2024 EOSPCT 1.7 06/12/2024 BASOPCT 0.6 06/12/2024 NEUTROABS 2.07 06/12/2024 LYMPHSABS 2.19 06/12/2024 MONOSABS 0.36 06/12/2024 EOSABS 0.08 06/12/2024 BASOSABS 0.03 06/12/2024 PLT 255 06/12/2024 NRBC 0.0 06/12/2024 No results found for this or any previous visit from the past 1 day. Principal Problem: Neurocognitive disorder with Lewy bodies (CMS/HCC) Active Problems: Slow transit constipation Visual hallucinations Paroxysmal supraventricular tachycardia (CMS/HCC) Personal history of COVID-19 Patient Active Problem List Diagnosis Date Noted Neurocognitive disorder with Lewy bodies (CMS/HCC) 06/10/2024 Slow transit constipation 06/10/2024 Visual hallucinations 06/10/2024 Paroxysmal supraventricular tachycardia (CMS/HCC) 06/10/2024 Personal history of COVID-19 06/10/2024 Current Facility-Administered Medications: acetaminophen (Tylenol) tablet 650 mg, 650 mg, oral, q6h PRN, Derrick Duckworth MD, 650 mg at 06/25/242033 atorvastatin (Lipitor) tablet 10 mg, 10 mg, oral, Nightly, Du Mcmillan MD, 10 mg at 06/25/242014 clonazePAM (KlonoPIN) disintegrating tablet 0.25 mg, 0.25 mg, oral, Nightly, Irma Amayaonoelena, DO, 0.25 mg at 06/25/242014 melatonin tablet 20 mg, 20 mg, oral, Nightly, Irmastephie Amayaonov, DO, 20 mg at 06/25/242014 memantine (Namenda) tablet 5 mg, 5 mg, oral, Daily, Irmastephie Amayaonov, DO, 5 mg at 06/26/24807 nystatin (Mycostatin) 100,000 unit/gram powder, , Topical, BID, Du Mcmillan MD, Given at 06/26/24 0809 OLANZapine (ZyPREXA) injection 2.5 mg, 2.5 mg, intramuscular, BID PRN, Mily Juarez MD pimavanserin (Nuplazid) capsule 34 mg, 34 mg, oral, Daily, Irma Greco DO, 34 mg at 06/26/24 0808 polyethylene glycol (Glycolax) packet 17 g, 17 g, oral, Daily PRN, Du Mcmillan MD, 17 g at 06/26/24 0808 QUEtiapine (SEROquel) tablet 25 mg, 25 mg, oral, TID PRN, Mily Juarez MD, 25 mg at 06/22/24 2251 sennosides-docusate sodium (Kriss-Colace) 8.6-50 mg per tablet 2 tablet, 2 tablet, oral, Nightly, Cletu (more content not included)...[facility]02-10-2025 NoteProblem: Anxiety Goal: STG-Cooperates with evaluations from physicians/RNs Outcome: Progressing Note: Pt has been cooperative with staff evaluations Goal: STG-Will not pace the floor more than 10 per shift Outcome: Progressing Note: Pt has not been pacing more than 10 times a shift Problem: Confusion Goal: STG-Engages in social situations appropriately 3 per shift Outcome: Progressing Note: Pt has been engaging in social situations appropriately 3 times per shift Problem: Psychotic Symptoms Goal: STG-Will report less than 12 hallucinations per shift by discharge Outcome: Progressing Note: Pt has been reporting less than 12 hallucinations per shift prior to DC Problem: Constipation Goal: STG-Regular elimination pattern by discharge Outcome: Progressing Note: Pt has been having a regular elimination pattern prior to DC Goal: STG-Willingly takes stool softener medication by discharge Outcome: Progressing Note: Pt has been willing to take stool softener medication prior to DC Problem: Fall Risk Goal: STG-Zero falls by discharge Outcome: Progressing Note: Pt has not had any recent falls Problem: Hypo/Hypertension Goal: STG-BP maintains 20mmhg of baseline by discharge Outcome: Progressing Note: Pt has been maintaining a baseline BP prior to DC Goal: STG-Willingly allowing vitals twice daily Outcome: Progressing Note: Pt has been [facility]als twice [facility] NotePsychiatry Service Progress Note Identifying Data Patient Name: Donnie Bullock MRN / CSN: [id number] Date of / Age: 6 1955 / 68 y.o. / female Encounter Date: 06/26/24 Diagnosis: Dementia with Lewy Bodies, Associated REM Sleep behavioral disorder Summary Health care surrogate: Vimal Bullock ([phone]) Mrs. Bullock's cognitive decline started in April,. The patient had COVID-19 in April,, she was never hospitalized and/or in the ICU. She was initially getting lost in familiar areas and forgetting words. Then in April, she wandered out of her home barefoot and only wearing a nightgown, during the night. A week after that first incident, she started telling her that he was not her and that there was another Vimal in the home that that does their dishes and laundry. The patient then started saying that there was a lady living with them. She was seen by Dr. Judy Chino, a psychologist in [place]. She then, approximately 1 year ago, began seeing neurology (Dr. Ambrose at [facility]). She also presented to the [facility] for a second opinion in April, (MOCA score at that time was 17/30). The patient previously received services through [facility], this care was reported to be for her major neurocognitive disorder. This week the patient was experiencing worsening hallucinations. On Wednesday (06/05/2024) she reported that she killed her 4 kids and grandchildren. She stated she had their head in bags. The next day (06/06/2024) she was increasingly paranoid and told her that the network professional was coming to take her away and she was packing. She experiences visual hallucinations every day, intermittently. In particular, Mrs. Bullock sees babies suffocating and people living in her house. She also reports seeing dogs as well as squirrels on her husbands shoulder when they watch TV together. Furthermore, patient states when she was hospitalized at [facility] for (depressive symptoms) she saw ribbons in the hospital. She denies auditory hallucinations. Per chart review and history provided today there is also concern for capgras delusions, in the past patient has stated to Mr. Bullock you look like my Vimal, but you are not him. The patient does not become verbally and/or physically aggressive. She is exit seeking and left her house once in recent times. The patient exhibits signs and symptoms of worsening anxiety in recent times. She becomes very restless when anxious and paces around her home. The patient reports she is afraid when she feels lost. She struggles with recent and remote memory. Her memory, attention and concentration fluctuates. Mrs. Bullock has struggled with constipation her entire life. Patient is described as slurring her words at times and having word finding difficulty. No aphasia. Mrs. Bullock experienced worsening rigidity and attends physical therapy 2 times a week. She has an unsteady, shuffling gait with decreased arm swinging. She has orthostatic hypotension. She does not have trouble falling asleep. She is awake 7-8 times during the night, to use the restroom. She has vivid dreams. No dream re-enactment. No physical aggression and/or sleep walking during the night. Patient dresses self and showers self. Once a week daughter in law helps her bathe. (Vimal) does the cooking and cleaning, laundry, finances and medication management. She does not drive (stopped driving in April,). The patient was ambulating with a cane and then did not want to use it anymore. Now she walks for 10 mins at a time on her own. No recent falls. No head trauma. She is able to feed self and usually toilets by self (she was incontinent in the past). Patient/Collateral reports that the patient has low mood, hopelessness, helplessness, anhedonia, hypersomnolence throughout the day and decreased energy. She does not engage in any of her previous hobbies. She is isolated and does not want to go out with friends. She feels she is a burden to her family. No suicidal ideation, plan and intent. No homicidal ideation, plan and intent. Current Home Medications and Schedule: 8 am- Senna 2 tablets and Hydroxyzine 25 mg 6 PM- Haloperidol 0.5 mg 8 PM- Senna 2 tablets, mirtazapine 7.5 mg and hydroxyzine 25 mg PRN medications: Diazepam 2 mg QID PRN for anxiety Previous medications: - Donepezil 5 mg, family discontinued at the end of April, due to worsening hallucinations - Alprazolam for anxiety - Risperidone, family does not recall the patient taking this medication - Melatonin for possible REM sleep behavior disorder, reported to worsen hallucinations Psychiatric course: 06/13: Increased Seroquel 12.5 mg to 25 mg TID. Discontinued Mirtazapine 7.5 mg. Started additional Seroquel 50 mg nightly. 06/14: Discontinued Rivastigmine 4.6m (more content not included)...[facility]02-09-2025 Note Attestation signed by Jada Aguillon MD at 06/27/2024 9:26 AM By using the attestations below, the signing clinician agrees that I have read and verify that the documentation has been personally reviewed by me and ensure that the documentation accurately reflects the encounter. GC: I personally saw this patient on the day of the encounter, performed the [place] portion(s) of the service and participated in the management and confirm the resident's documentation. Please note there may be an additional personal documentation from me. Psychiatry Service Progress Note Identifying Data Patient Name: Donnie Bullock MRN / CSN: [id number] Date of / Age: 6 1955 / 68 y.o. / female Encounter Date: 06/25/24 Diagnosis: Dementia with Lewy Bodies, Associated REM Sleep behavioral disorder Summary Health care surrogate: Vimal Bullock ([phone]) Mrs. Bullock's cognitive decline started in April,. The patient had COVID-19 in April,, she was never hospitalized and/or in the ICU. She was initially getting lost in familiar areas and forgetting words. Then in April, she wandered out of her home barefoot and only wearing a nightgown, during the night. A week after that first incident, she started telling her that he was not her and that there was another Vimal in the home that that does their dishes and laundry. The patient then started saying that there was a lady living with them. She was seen by Dr. Judy Chino, a psychologist in [place]. She then, approximately 1 year ago, began seeing neurology (Dr. Ambrose at [facility]). She also presented to the [facility] for a second opinion in April, (MOCA score at that time was 17/30). The patient previously received services through [facility], this care was reported to be for her major neurocognitive disorder. This week the patient was experiencing worsening hallucinations. On Wednesday (06/05/2024) she reported that she killed her 4 kids and grandchildren. She stated she had their head in bags. The next day (06/06/2024) she was increasingly paranoid and told her that the network professional was coming to take her away and she was packing. She experiences visual hallucinations every day, intermittently. In particular, Mrs. Bullock sees babies suffocating and people living in her house. She also reports seeing dogs as well as squirrels on her husbands shoulder when they watch TV together. Furthermore, patient states when she was hospitalized at [facility] for (depressive symptoms) she saw ribbons in the hospital. She denies auditory hallucinations. Per chart review and history provided today there is also concern for capgras delusions, in the past patient has stated to Mr. Bullock you look like my Vimal, but you are not him. The patient does not become verbally and/or physically aggressive. She is exit seeking and left her house once in recent times. The patient exhibits signs and symptoms of worsening anxiety in recent times. She becomes very restless when anxious and paces around her home. The patient reports she is afraid when she feels lost. She struggles with recent and remote memory. Her memory, attention and concentration fluctuates. Mrs. Bullock has struggled with constipation her entire life. Patient is described as slurring her words at times and having word finding difficulty. No aphasia. Mrs. Bullock experienced worsening rigidity and attends physical therapy 2 times a week. She has an unsteady, shuffling gait with decreased arm swinging. She has orthostatic hypotension. She does not have trouble falling asleep. She is awake 7-8 times during the night, to use the restroom. She has vivid dreams. No dream re-enactment. No physical aggression and/or sleep walking during the night. Patient dresses self and showers self. Once a week daughter in law helps her bathe. (Vimal) does the cooking and cleaning, laundry, finances and medication management. She does not drive (stopped driving in April,). The patient was ambulating with a cane and then did not want to use it anymore. Now she walks for 10 mins at a time on her own. No recent falls. No head trauma. She is able to feed self and usually toilets by self (she was incontinent in the past). Patient/Collateral reports that the patient has low mood, hopelessness, helplessness, anhedonia, hypersomnolence throughout the day and decreased energy. She does not engage in any of her previous hobbies. She is isolated and does not want to go out with friends. She feels she is a burden to her family. No suicidal ideation, plan and intent. No homicidal ideation, plan and intent. Current Home Medications and (more content not included)...[facility]02-09-2025 NotePROGRESS NOTE PATIENT: Donnie Bullock, SEX: female, : 1955 SUBJECTIVE Patient evaluated while lying in bed in her room with head towards the foot of the bed, in no acute distress. Resident seen for a follow up/med management for neurocognitive disorder with Lewy bodies, generalized anxiety disorder, paroxysmal supraventricular tachycardia, constipation, and COVID-19 in April 2023; 68 years old female directly admitted to [facility] from home on 06/09/2024 for management of worsening visual hallucinations. No nursing or resident concerns besides complaint of UTI symptoms yesterday, urine shows no evidence of UTI, tolerating meds, no recent falls Denies CP, SOB, n/v/d/c Objective Patient Vitals for the past 24 hrs: BP Temp Temp src Pulse Resp SpO2 06/25/24 0646 134/67 36.7 ???C (98.1 ???F) -- 82 16 100 % 06/24/24 1900 139/79 35.9 ???C (96.7 ???F) Temporal 106 15 97 % Physical Exam Constitutional: Appearance: Normal appearance. Comments: In bed HENT: Head: Normocephalic and atraumatic. Right Ear: External ear normal. Left Ear: External ear normal. Nose: Nose normal. Mouth/Throat: Mouth: Mucous membranes are moist. Eyes: Extraocular Movements: Extraocular movements intact. Pupils: Pupils are equal, round, and reactive to light. Cardiovascular: Rate and Rhythm: Normal rate and regular rhythm. Pulses: Normal pulses. Heart sounds: Normal heart sounds. Pulmonary: Effort: Pulmonary effort is normal. Breath sounds: Normal breath sounds. Abdominal: General: Bowel sounds are normal. Palpations: Abdomen is soft. Musculoskeletal: General: Normal range of motion. Cervical back: Normal range of motion. Skin: General: Skin is warm and dry. Neurological: General: No focal deficit present. Mental Status: She is alert. Psychiatric: Mood and Affect: Mood normal. Comments: Flat affect, verbal Lab Results Component Value Date NA 140 06/10/2024 K 4.2 06/10/2024 CL 106 06/10/2024 ANIONGAP 14 06/10/2024 BUN 12 06/10/2024 CREATININE 0.69 06/10/2024 CALCIUM 9.4 06/10/2024 Lab Results Component Value Date BILITOT 0.5 06/10/2024 ALKPHOS 44 06/10/2024 AST 17 06/10/2024 ALT 15 06/10/2024 PROT 6.5 06/10/2024 ALBUMIN 3.9 06/10/2024 Lab Results Component Value Date WBC 4.74 06/12/2024 RBC 4.39 06/12/2024 HGB 13.1 06/12/2024 HCT 40.1 06/12/2024 MCV 91.3 06/12/2024 MCH 29.8 06/12/2024 MCHC 32.7 06/12/2024 RDW 12.3 06/12/2024 NEUTOPHILPCT 43.7 06/12/2024 LYMPHOPCT 46.2 (H) 06/12/2024 MONOPCT 7.6 06/12/2024 EOSPCT 1.7 06/12/2024 BASOPCT 0.6 06/12/2024 NEUTROABS 2.07 06/12/2024 LYMPHSABS 2.19 06/12/2024 MONOSABS 0.36 06/12/2024 EOSABS 0.08 06/12/2024 BASOSABS 0.03 06/12/2024 PLT 255 06/12/2024 NRBC 0.0 06/12/2024 No results found for this or any previous visit from the past 1 day. Principal Problem: Neurocognitive disorder with Lewy bodies (CMS/HCC) Active Problems: Slow transit constipation Visual hallucinations Paroxysmal supraventricular tachycardia (CMS/HCC) Personal history of COVID-19 Patient Active Problem List Diagnosis Date Noted Neurocognitive disorder with Lewy bodies (CMS/HCC) 06/10/2024 Slow transit constipation 06/10/2024 Visual hallucinations 06/10/2024 Paroxysmal supraventricular tachycardia (CMS/HCC) 06/10/2024 Personal history of COVID-19 06/10/2024 Current Facility-Administered Medications: acetaminophen (Tylenol) tablet 650 mg, 650 mg, oral, q6h PRN, Derrick Duckworth MD, 650 mg at 06/24/24 180 atorvastatin (Lipitor) tablet 10 mg, 10 mg, oral, Nightly, Du Mcmillan MD, 10 mg at 06/24/242004 clonazePAM (KlonoPIN) disintegrating tablet 0.25 mg, 0.25 mg, oral, Nightly, Irma Greco DO, 0.25 mg at 06/24/242005 melatonin tablet 20 mg, 20 mg, oral, Nightly, Irma Amayaonov DO, 20 mg at 06/24/242005 memantine (Namenda) tablet 5 mg, 5 mg, oral, Daily, Irmastephie Amayaonov, DO, 5 mg at 06/24/24 08 nystatin (Mycostatin) 100,000 unit/gram powder, , Topical, BID, Du Mcmillan MD, Given at 06/24/242005 OLANZapine (ZyPREXA) injection 2.5 mg, 2.5 mg, intramuscular, BID PRN, Mily Juarez MD pimavanserin (Nuplazid) capsule 34 mg, 34 mg, oral, Daily, Irma Greco DO, 34 mg at 06/24/24 0844 polyethylene glycol (Glycolax) packet 17 g, 17 g, oral, Daily PRN, Du Mcmillan MD, 17 g at 06/24/24 0900 QUEtiapine (SEROquel) tablet 25 mg, 25 mg, oral, TID PRN, Mily Juarez MD, 25 mg at 06/22/24 2251 sennosides-docusate sodium (Kriss-Colace) 8.6-50 mg per tablet 2 tablet, 2 tablet, oral, Nightly, Du Mcmillan MD, 2 tablet at 06/24/242004 ASSESSMENT/PLAN: Dysuria: Encourage fluid intake, urinalysis shows no evidence of UTI Slow transit constipation: Currently on polyethylene glycol 17 g by mouth daily as needed, and sennosides/docusate 8.6/50 mg 2 tablets by mouth at bedtime daily, declines offer for Dulcolax at (more content not included)...[facility]02-08-2025 NoteProblem: Anxiety Goal: STG-Cooperates with evaluations from physicians/RNs Outcome: Progressing Goal: STG-Will not pace the floor more than 10 per shift Outcome: Progressing Problem: Confusion Goal: STG-Engages in social situations appropriately 3 per shift Outcome: Progressing Problem: Constipation Goal: STG-Regular elimination pattern by discharge Outcome: Progressing Problem: Fall Risk Goal: STG-Zero falls by discharge [facility] NotePROGRESS NOTE PATIENT: Donnie Bullock, SEX: female, : 1955 SUBJECTIVE Patient evaluated in a chair by the table in the dayroom eating breakfast alongside few other patients, in no acute distress. Resident seen for a follow up/med management for neurocognitive disorder with Lewy bodies, generalized anxiety disorder, paroxysmal supraventricular tachycardia, constipation, and COVID-19 in April 2023; 68 years old female directly admitted to [facility] from home on 06/09/2024 for management of worsening visual hallucinations. No nursing or resident concerns besides complaint of UTI symptoms yesterday, urine shows no evidence of UTI, tolerating meds, no recent falls Denies CP, SOB, n/v/d/c Objective Patient Vitals for the past 24 hrs: BP Temp Temp src Pulse Resp SpO2 Weight 06/24/24 0729 -- -- -- -- -- -- 70.1 kg (154 lb 9.6 oz) 06/24/24 0659 137/76 36.7 ???C (98 ???F) Temporal 82 16 98 % -- 06/23/24 1902 121/68 36.8 ???C (98.3 ???F) Temporal 87 16 98 % -- Physical Exam Constitutional: Appearance: Normal appearance. Comments: In a chair HENT: Head: Normocephalic and atraumatic. Right Ear: External ear normal. Left Ear: External ear normal. Nose: Nose normal. Mouth/Throat: Mouth: Mucous membranes are moist. Eyes: Extraocular Movements: Extraocular movements intact. Pupils: Pupils are equal, round, and reactive to light. Cardiovascular: Rate and Rhythm: Normal rate and regular rhythm. Pulses: Normal pulses. Heart sounds: Normal heart sounds. Pulmonary: Effort: Pulmonary effort is normal. Breath sounds: Normal breath sounds. Abdominal: General: Bowel sounds are normal. Palpations: Abdomen is soft. Musculoskeletal: General: Normal range of motion. Cervical back: Normal range of motion. Skin: General: Skin is warm and dry. Neurological: General: No focal deficit present. Mental Status: She is alert. Psychiatric: Mood and Affect: Mood normal. Comments: Flat affect, verbal Lab Results Component Value Date NA 140 06/10/2024 K 4.2 06/10/2024 CL 106 06/10/2024 ANIONGAP 14 06/10/2024 BUN 12 06/10/2024 CREATININE 0.69 06/10/2024 CALCIUM 9.4 06/10/2024 Lab Results Component Value Date BILITOT 0.5 06/10/2024 ALKPHOS 44 06/10/2024 AST 17 06/10/2024 ALT 15 06/10/2024 PROT 6.5 06/10/2024 ALBUMIN 3.9 06/10/2024 Lab Results Component Value Date WBC 4.74 06/12/2024 RBC 4.39 06/12/2024 HGB 13.1 06/12/2024 HCT 40.1 06/12/2024 MCV 91.3 06/12/2024 MCH 29.8 06/12/2024 MCHC 32.7 06/12/2024 RDW 12.3 06/12/2024 NEUTOPHILPCT 43.7 06/12/2024 LYMPHOPCT 46.2 (H) 06/12/2024 MONOPCT 7.6 06/12/2024 EOSPCT 1.7 06/12/2024 BASOPCT 0.6 06/12/2024 NEUTROABS 2.07 06/12/2024 LYMPHSABS 2.19 06/12/2024 MONOSABS 0.36 06/12/2024 EOSABS 0.08 06/12/2024 BASOSABS 0.03 06/12/2024 PLT 255 06/12/2024 NRBC 0.0 06/12/2024 No results found for this or any previous visit from the past 1 day. Principal Problem: Neurocognitive disorder with Lewy bodies (CMS/HCC) Active Problems: Slow transit constipation Visual hallucinations Paroxysmal supraventricular tachycardia (CMS/HCC) Personal history of COVID-19 Patient Active Problem List Diagnosis Date Noted Neurocognitive disorder with Lewy bodies (CMS/HCC) 06/10/2024 Slow transit constipation 06/10/2024 Visual hallucinations 06/10/2024 Paroxysmal supraventricular tachycardia (CMS/HCC) 06/10/2024 Personal history of COVID-19 06/10/2024 Current Facility-Administered Medications: acetaminophen (Tylenol) tablet 650 mg, 650 mg, oral, q6h PRN, Derrick Duckworth MD, 650 mg at 06/22/241849 atorvastatin (Lipitor) tablet 10 mg, 10 mg, oral, Nightly, Du Mcmillan MD, 10 mg at 06/23/242028 clonazePAM (KlonoPIN) disintegrating tablet 0.25 mg, 0.25 mg, oral, Nightly, Irma Greco DO, 0.25 mg at 06/23/242028 melatonin tablet 20 mg, 20 mg, oral, Nightly, Irma Greco DO, 20 mg at 06/23/242028 memantine (Namenda) tablet 5 mg, 5 mg, oral, Daily, Irma Greco DO, 5 mg at 06/23/24 0832 nystatin (Mycostatin) 100,000 unit/gram powder, , Topical, BID, Du Mcmillan MD, Given at 06/23/242028 OLANZapine (ZyPREXA) injection 2.5 mg, 2.5 mg, intramuscular, BID PRN, iMly Juarez MD pimavanserin (Nuplazid) capsule 34 mg, 34 mg, oral, Daily, Irma Greco DO, 34 mg at 06/23/24 0832 polyethylene glycol (Glycolax) packet 17 g, 17 g, oral, Daily PRN, Du Mcmillan MD, 17 g at 06/23/24 0832 QUEtiapine (SEROquel) tablet 25 mg, 25 mg, oral, TID PRN, Mily Juarez MD, 25 mg at 06/22/242250 sennosides-docusate sodium (Kriss-Colace) 8.6-50 mg per tablet 2 tablet, 2 tablet, oral, Nightly, Du Mcmillan MD, 2 tablet at 06/23/242028 ASSESSMENT/PLAN: Dysuria: Encourage fluid intake, urinalysis shows no evidence of UTI Slow transit constipation: Currently on polyethylene glycol 17 g by mouth daily as needed, and sennos (more content not included)...[facility]02-07-2025 NoteTreatment Review Per report, pt has been having increased confusion. Pt has been wandering into pt's rooms. Pt lost her glasses yesterday and had trouble finding them. Pt ran out of her room last night, was yelling, and reporting that her window blew out . Due to this, pt was given an oral PRN to calm down, and went back to bed. Discharge plan: [facility]02-07-2025 Note Attestation signed by Irma Greco DO at 06/26/2024 7:55 AM I personally saw and examined the patient on the same date of service as resident/fellow. I discussed the findings and therapeutic plan with the resident/fellow. I agree with the documentation, except for any edits/updates below. Teaching Physician's Revisions: Agree with resident documentation and plan Psychiatry Service Progress Note Identifying Data Patient Name: Donnie Bullock MRN / CSN: [id number] Date of / Age: 6 1955 / 68 y.o. / female Encounter Date: 06/23/24 Diagnosis: Dementia with Lewy Bodies, Associated REM Sleep behavioral disorder Summary Health care surrogate: Vimal Bullock ([phone]) Mrs. Bullock's cognitive decline started in April,. The patient had COVID-19 in April,, she was never hospitalized and/or in the ICU. She was initially getting lost in familiar areas and forgetting words. Then in April, she wandered out of her home barefoot and only wearing a nightgown, during the night. A week after that first incident, she started telling her that he was not her and that there was another Vimal in the home that that does their dishes and laundry. The patient then started saying that there was a lady living with them. She was seen by Dr. Judy Chino, a psychologist in [place]. She then, approximately 1 year ago, began seeing neurology (Dr. Ambrose at [facility]). She also presented to [facility] for a second opinion in April, (MOCA score at that time was 17/30). The patient previously received services through [facility], this care was reported to be for her major neurocognitive disorder. This week the patient was experiencing worsening hallucinations. On Wednesday (06/05/2024) she reported that she killed her 4 kids and grandchildren. She stated she had their head in bags. The next day (06/06/2024) she was increasingly paranoid and told her that the network professional was coming to take her away and she was packing. She experiences visual hallucinations every day, intermittently. In particular, Mrs. Bullock sees babies suffocating and people living in her house. She also reports seeing dogs as well as squirrels on her husbands shoulder when they watch TV together. Furthermore, patient states when she was hospitalized at [facility] for (depressive symptoms) she saw ribbons in the hospital. She denies auditory hallucinations. Per chart review and history provided today there is also concern for capgras delusions, in the past patient has stated to Mr. Bullock you look like my Vimal, but you are not him. The patient does not become verbally and/or physically aggressive. She is exit seeking and left her house once in recent times. The patient exhibits signs and symptoms of worsening anxiety in recent times. She becomes very restless when anxious and paces around her home. The patient reports she is afraid when she feels lost. She struggles with recent and remote memory. Her memory, attention and concentration fluctuates. Mrs. Bullock has struggled with constipation her entire life. Patient is described as slurring her words at times and having word finding difficulty. No aphasia. Mrs. Bullock experienced worsening rigidity and attends physical therapy 2 times a week. She has an unsteady, shuffling gait with decreased arm swinging. She has orthostatic hypotension. She does not have trouble falling asleep. She is awake 7-8 times during the night, to use the restroom. She has vivid dreams. No dream re-enactment. No physical aggression and/or sleep walking during the night. Patient dresses self and showers self. Once a week daughter in law helps her bathe. (Vimal) does the cooking and cleaning, laundry, finances and medication management. She does not drive (stopped driving in April,). The patient was ambulating with a cane and then did not want to use it anymore. Now she walks for 10 mins at a time on her own. No recent falls. No head trauma. She is able to feed self and usually toilets by self (she was incontinent in the past). Patient/Collateral reports that the patient has low mood, hopelessness, helplessness, anhedonia, hypersomnolence throughout the day and decreased energy. She does not engage in any of her previous hobbies. She is isolated and does not want to go out with friends. She feels she is a burden to her family. No suicidal ideation, plan and intent. No homicidal ideation, plan and intent. Current Home Medications and Schedule: 8 am- Senna 2 tablets and Hydroxyzine 25 mg 6 PM- Haloperidol 0.5 mg 8 PM- Senna 2 tablets, mirtazapine 7.5 mg and hydroxyzine 25 mg PRN medications: D (more content not included)...[facility]02-07-2025 Note Attestation signed by Du Mcmillan MD at 06/24/2024 12:48 AM By using the attestations below, the signing clinician agrees that I have read and verify that the documentation has been personally reviewed by me and ensure that the documentation accurately reflects the encounter. GC: I personally saw this patient on the day of the encounter, performed the [place] portion(s) of the service and participated in the management and confirm the resident's documentation. Please note there may be an additional personal documentation from me. Additional Comments: Patient seen, evaluated and discussed with outside medical sales representative as documented PROGRESS NOTE PATIENT: Donnie Bullock, SEX: female, : 1955 SUBJECTIVE Donnie Bullock was seen this morning, resting comfortably in her bed, denies any complain, had bowel movement this morning. No nursing or resident concerns. Normal UA, collected this morning. Resident seen for a follow up/med management for neurocognitive disorder with Lewy bodies, generalized anxiety disorder, paroxysmal supraventricular tachycardia, constipation, and COVID-19 in April 2023; 68 years old female directly admitted to [facility] from home on 06/09/2024 for management of worsening visual hallucinations. Denies CP, SOB, n/v/d/c Objective Patient Vitals for the past 24 hrs: BP Temp Pulse Resp SpO2 06/23/24 0700 111/66 36.5 ???C (97.7 ???F) 84 16 98 % 06/22/24 1840 121/61 36.3 ???C (97.3 ???F) 87 18 99 % Physical Exam Constitutional: Appearance: Normal appearance. She is not ill-appearing. HENT: Head: Normocephalic and atraumatic. Nose: Nose normal. Mouth/Throat: Mouth: Mucous membranes are moist. Cardiovascular: Rate and Rhythm: Normal rate and regular rhythm. Pulses: Normal pulses. Pulmonary: Effort: Pulmonary effort is normal. No respiratory distress. Breath sounds: Normal breath sounds. Abdominal: General: Abdomen is flat. Palpations: Abdomen is soft. Tenderness: There is no abdominal tenderness. Musculoskeletal: Right lower leg: No edema. Left lower leg: No edema. Skin: General: Skin is warm. Findings: No rash. Neurological: Mental Status: She is oriented to person, place, and time. Lab Results Component Value Date NA 140 06/10/2024 K 4.2 06/10/2024 CL 106 06/10/2024 ANIONGAP 14 06/10/2024 BUN 12 06/10/2024 CREATININE 0.69 06/10/2024 CALCIUM 9.4 06/10/2024 Lab Results Component Value Date BILITOT 0.5 06/10/2024 ALKPHOS 44 06/10/2024 AST 17 06/10/2024 ALT 15 06/10/2024 PROT 6.5 06/10/2024 ALBUMIN 3.9 06/10/2024 Lab Results Component Value Date WBC 4.74 06/12/2024 RBC 4.39 06/12/2024 HGB 13.1 06/12/2024 HCT 40.1 06/12/2024 MCV 91.3 06/12/2024 MCH 29.8 06/12/2024 MCHC 32.7 06/12/2024 RDW 12.3 06/12/2024 NEUTOPHILPCT 43.7 06/12/2024 LYMPHOPCT 46.2 (H) 06/12/2024 MONOPCT 7.6 06/12/2024 EOSPCT 1.7 06/12/2024 BASOPCT 0.6 06/12/2024 NEUTROABS 2.07 06/12/2024 LYMPHSABS 2.19 06/12/2024 MONOSABS 0.36 06/12/2024 EOSABS 0.08 06/12/2024 BASOSABS 0.03 06/12/2024 PLT 255 06/12/2024 NRBC 0.0 06/12/2024 No results found for this or any previous visit from the past 1 day. Principal Problem: Neurocognitive disorder with Lewy bodies (CMS/HCC) Active Problems: Slow transit constipation Visual hallucinations Paroxysmal supraventricular tachycardia (CMS/HCC) Personal history of COVID-19 Patient Active Problem List Diagnosis Date Noted Neurocognitive disorder with Lewy bodies (CMS/HCC) 06/10/2024 Slow transit constipation 06/10/2024 Visual hallucinations 06/10/2024 Paroxysmal supraventricular tachycardia (CMS/HCC) 06/10/2024 Personal history of COVID-19 06/10/2024 Current Facility-Administered Medications: acetaminophen (Tylenol) tablet 650 mg, 650 mg, oral, q6h PRN, Derrick Duckworth MD, 650 mg at 06/22/24 1850 atorvastatin (Lipitor) tablet 10 mg, 10 mg, oral, Nightly, Du Mcmillan MD, 10 mg at 06/22/24 210 melatonin tablet 20 mg, 20 mg, oral, Nightly, Irma Greco DO, 20 mg at 06/22/24 2100 memantine (Namenda) tablet 5 mg, 5 mg, oral, Daily, Irma Greco DO, 5 mg at 06/23/24 0832 nystatin (Mycostatin) 100,000 unit/gram powder, , Topical, BID, Du Mcmillan MD, Given at 06/23/24 0832 OLANZapine (ZyPREXA) injection 2.5 mg, 2.5 mg, intramuscular, BID PRN, Mily Juarez MD pimavanserin (Nuplazid) capsule 34 mg, 34 mg, oral, Daily, Irma Greco DO, 34 mg at 06/23/24 0832 polyethylene glycol (Glycolax) packet 17 g, 17 g, oral, Daily PRN, Du Mcmillan MD, 17 g at 06/23/24 0832 QUEtiapine (SEROquel) tablet 25 mg, 25 mg, oral, TID PRN, Mily Juarez MD, 25 mg at 06/22/24 6087 sennosides-docusate sodium (Kriss-Colace) 8.6-50 mg per tablet 2 tablet, (more content not included)...[facility]02-06-2025 Note Attestation signed by Irma Greco DO at 06/26/2024 7:55 AM I personally saw and examined the patient on the same date of service as resident/fellow. I discussed the findings and therapeutic plan with the resident/fellow. I agree with the documentation, except for any edits/updates below. Teaching Physician's Revisions: Agree with resident documentation and plan Psychiatry Service Progress Note Identifying Data Patient Name: Donnie Bullock MRN / CSN: [id number] Date of / Age: 6 1955 / 68 y.o. / female Encounter Date: 06/22/24 Diagnosis: Dementia with Lewy Bodies, Associated REM Sleep behavioral disorder Summary Health care surrogate: Vimal Bullock ([phone]) Mrs. Bullock's cognitive decline started in April,. The patient had COVID-19 in April,, she was never hospitalized and/or in the ICU. She was initially getting lost in familiar areas and forgetting words. Then in April, she wandered out of her home barefoot and only wearing a nightgown, during the night. A week after that first incident, she started telling her that he was not her and that there was another Vimal in the home that that does their dishes and laundry. The patient then started saying that there was a lady living with them. She was seen by Dr. Judy Chino, a psychologist in [place]. She then, approximately 1 year ago, began seeing neurology (Dr. Ambrose at [facility]). She also presented to the [facility] the [facility] for a second opinion in April, (MOCA score at that time was 17/30). The patient previously received services through [facility], this care was reported to be for her major neurocognitive disorder. This week the patient was experiencing worsening hallucinations. On Wednesday (06/05/2024) she reported that she killed her 4 kids and grandchildren. She stated she had their head in bags. The next day (06/06/2024) she was increasingly paranoid and told her that the network professional was coming to take her away and she was packing. She experiences visual hallucinations every day, intermittently. In particular, Mrs. Bullock sees babies suffocating and people living in her house. She also reports seeing dogs as well as squirrels on her husbands shoulder when they watch TV together. Furthermore, patient states when she was hospitalized at [facility] for (depressive symptoms) she saw ribbons in the hospital. She denies auditory hallucinations. Per chart review and history provided today there is also concern for capgras delusions, in the past patient has stated to Mr. Bullock you look like my Vimal, but you are not him. The patient does not become verbally and/or physically aggressive. She is exit seeking and left her house once in recent times. The patient exhibits signs and symptoms of worsening anxiety in recent times. She becomes very restless when anxious and paces around her home. The patient reports she is afraid when she feels lost. She struggles with recent and remote memory. Her memory, attention and concentration fluctuates. Mrs. Bullock has struggled with constipation her entire life. Patient is described as slurring her words at times and having word finding difficulty. No aphasia. Mrs. Bullock experienced worsening rigidity and attends physical therapy 2 times a week. She has an unsteady, shuffling gait with decreased arm swinging. She has orthostatic hypotension. She does not have trouble falling asleep. She is awake 7-8 times during the night, to use the restroom. She has vivid dreams. No dream re-enactment. No physical aggression and/or sleep walking during the night. Patient dresses self and showers self. Once a week daughter in law helps her bathe. (Vimal) does the cooking and cleaning, laundry, finances and medication management. She does not drive (stopped driving in April,). The patient was ambulating with a cane and then did not want to use it anymore. Now she walks for 10 mins at a time on her own. No recent falls. No head trauma. She is able to feed self and usually toilets by self (she was incontinent in the past). Patient/Collateral reports that the patient has low mood, hopelessness, helplessness, anhedonia, hypersomnolence throughout the day and decreased energy. She does not engage in any of her previous hobbies. She is isolated and does not want to go out with friends. She feels she is a burden to her family. No suicidal ideation, plan and intent. No homicidal ideation, plan and intent. Current Home Medications and Schedule: 8 am- Senna 2 tablets and Hydroxyzine 25 mg 6 PM- Haloperidol 0.5 mg 8 PM- Senna 2 tablets, mirtazapine 7.5 mg and hydroxyzine 25 mg PRN medications: D (more content not included)...[facility]02-06-2025 NotePROGRESS NOTE PATIENT: Donnie Bullock, SEX: female, : 1955 SUBJECTIVE Patient evaluated while sitting by the edge of the bed in her room, in no acute distress. Resident seen for a follow up/med management for neurocognitive disorder with Lewy bodies, generalized anxiety disorder, paroxysmal supraventricular tachycardia, constipation, and COVID-19 in April 2023; 68 years old female directly admitted to [facility] from home on 06/09/2024 for management of worsening visual hallucinations. No nursing or resident concerns besides constipation, no bowel movement in 2 days, tolerating meds, no recent falls Denies CP, SOB, n/v/d/c Objective Patient Vitals for the past 24 hrs: BP Temp Pulse Resp SpO2 06/22/24 0655 127/75 36.5 ???C (97.7 ???F) 81 17 98 % 06/21/24 1832 130/74 36.5 ???C (97.7 ???F) 88 17 99 % Physical Exam Constitutional: Appearance: Normal appearance. Comments: In bed HENT: Head: Normocephalic and atraumatic. Right Ear: External ear normal. Left Ear: External ear normal. Nose: Nose normal. Mouth/Throat: Mouth: Mucous membranes are moist. Eyes: Extraocular Movements: Extraocular movements intact. Pupils: Pupils are equal, round, and reactive to light. Cardiovascular: Rate and Rhythm: Normal rate and regular rhythm. Pulses: Normal pulses. Heart sounds: Normal heart sounds. Pulmonary: Effort: Pulmonary effort is normal. Breath sounds: Normal breath sounds. Abdominal: General: Bowel sounds are normal. Palpations: Abdomen is soft. Musculoskeletal: General: Normal range of motion. Cervical back: Normal range of motion. Skin: General: Skin is warm and dry. Neurological: General: No focal deficit present. Mental Status: She is alert. Psychiatric: Mood and Affect: Mood normal. Comments: Flat affect, verbal Lab Results Component Value Date NA 140 06/10/2024 K 4.2 06/10/2024 CL 106 06/10/2024 ANIONGAP 14 06/10/2024 BUN 12 06/10/2024 CREATININE 0.69 06/10/2024 CALCIUM 9.4 06/10/2024 Lab Results Component Value Date BILITOT 0.5 06/10/2024 ALKPHOS 44 06/10/2024 AST 17 06/10/2024 ALT 15 06/10/2024 PROT 6.5 06/10/2024 ALBUMIN 3.9 06/10/2024 Lab Results Component Value Date WBC 4.74 06/12/2024 RBC 4.39 06/12/2024 HGB 13.1 06/12/2024 HCT 40.1 06/12/2024 MCV 91.3 06/12/2024 MCH 29.8 06/12/2024 MCHC 32.7 06/12/2024 RDW 12.3 06/12/2024 NEUTOPHILPCT 43.7 06/12/2024 LYMPHOPCT 46.2 (H) 06/12/2024 MONOPCT 7.6 06/12/2024 EOSPCT 1.7 06/12/2024 BASOPCT 0.6 06/12/2024 NEUTROABS 2.07 06/12/2024 LYMPHSABS 2.19 06/12/2024 MONOSABS 0.36 06/12/2024 EOSABS 0.08 06/12/2024 BASOSABS 0.03 06/12/2024 PLT 255 06/12/2024 NRBC 0.0 06/12/2024 No results found for this or any previous visit from the past 1 day. Principal Problem: Neurocognitive disorder with Lewy bodies (CMS/HCC) Active Problems: Slow transit constipation Visual hallucinations Paroxysmal supraventricular tachycardia (CMS/HCC) Personal history of COVID-19 Patient Active Problem List Diagnosis Date Noted Neurocognitive disorder with Lewy bodies (CMS/HCC) 06/10/2024 Slow transit constipation 06/10/2024 Visual hallucinations 06/10/2024 Paroxysmal supraventricular tachycardia (CMS/HCC) 06/10/2024 Personal history of COVID-19 06/10/2024 Current Facility-Administered Medications: acetaminophen (Tylenol) tablet 650 mg, 650 mg, oral, q6h PRN, Derrick Duckworth MD, 650 mg at 06/21/242120 atorvastatin (Lipitor) tablet 10 mg, 10 mg, oral, Nightly, Du Mcmillan MD, 10 mg at 06/21/242110 melatonin tablet 20 mg, 20 mg, oral, Nightly, Irma Greco DO, 20 mg at 06/21/242110 memantine (Namenda) tablet 5 mg, 5 mg, oral, Daily, Irma Greco DO, 5 mg at 06/21/24 0844 nystatin (Mycostatin) 100,000 unit/gram powder, , Topical, BID, Du Mcmillan MD, Given at 06/21/24 2100 OLANZapine (ZyPREXA) injection 2.5 mg, 2.5 mg, intramuscular, BID PRN, Mily Juarez MD pimavanserin (Nuplazid) capsule 34 mg, 34 mg, oral, Daily, Irma Greco DO, 34 mg at 06/21/24 1040 polyethylene glycol (Glycolax) packet 17 g, 17 g, oral, Daily PRN, Du Mcmillan MD, 17 g at 06/21/24 1636 QUEtiapine (SEROquel) tablet 25 mg, 25 mg, oral, TID PRN, Mily Juarez MD sennosides-docusate sodium (Kriss-Colace) 8.6-50 mg per tablet 2 tablet, 2 tablet, oral, Nightly, Du Mcmillan MD, 2 tablet at 06/21/24 2111 ASSESSMENT/PLAN: Slow transit constipation: Currently on polyethylene glycol 17 g by mouth daily as needed, and sennosides/docusate 8.6/50 mg 2 tablets by mouth at bedtime daily, declines offer for Dulcolax at this morning Candidal intertrigo: Continue nystatin powder topical apply to under the breast and all the involved areas including groin and abdominal folds Mixed hyperlipidemia: Start atorvastatin 10 mg by mouth at bedtime daily Depression: On mirtazapine 7.5 mg by mouth at bedtime (more content not included)...[facility]02-05-2025 NoteTreatment Review Per report, pt had a good family visit. Pt reported that she is not going to work (perceived delusion). Pt reported visual hallucinations of seeing her grandchildren. Pt believes that her is having an affair, believes it is with a man, and in the same sentence will talk about him having a girlfriend. Pt had her seroquel stopped. [facility] NoteProblem: Anxiety Goal: STG-Cooperates with evaluations from physicians/RNs Outcome: Progressing Note: Patient co-operative with physical and verbal assessment. Problem: Hypo/Hypertension Goal: STG-Willingly allowing vitals twice daily Outcome: Progressing Note: Patient co-operative with vitals The patient is Moderately Stable - Low risk of patient condition declining or worsening The patient's goals for the shift include rest The clinical goals for the shift include safety/[facility] NoteNutrition Screening Assessment: Patient Name: Donnie Bullock : 1955 Date of Assessment: 06/21/24 Nutrition re-screen completed Past Medical History: Diagnosis Date Neurocognitive disorder with Lewy bodies (CMS/HCC) Paroxysmal supraventricular tachycardia (CMS/HCC) Personal history of COVID-19 Slow transit constipation Visual hallucinations Admission Diagnosis: Neurocognitive disorder with Lewy Bodies Information obtained from: medical record, nursing, and H team meeting Current Problems Per RN and medical record, pt is currently eating well. RN reported no concerns. Documented to have redness under right breast. Current Medications: atorvastatin, 10 mg, oral, Nightly melatonin, 20 mg, oral, Nightly memantine, 5 mg, oral, Daily nystatin, , Topical, BID pimavanserin, 34 mg, oral, Daily sennosides-docusate sodium, 2 tablet, oral, Nightly Dietary Orders (From admission, onward) Start Ordered 06/09/241704 Regular Diet Diet effective now Question: Room Service? Answer: Yes 06/09/241705 Meal Intakes: 75-100% average meal intake of 82% over last week Ht: 165.1 cm Wt: 70.7 kg (06/17/24, standing scale) Body mass index is 25.93 kg/m???. Plan: Patient did not meet criteria for nutrition risk. No other nutritional concerns. Continue current diet. RD will continue to reassess per protocol during admission. Consult the dietitian as needed. (Please reach out with questions and contact the dietitian via [employer] chat [phone]-4P Wednesday-Wednesday. Or call the dietitian's office at extension [phone]. For weekends/holidays, the dietitian's can be reached by paging [phone] from 9A-3P. Unable to be reached via [employer] on Wednesday & .)[facility]02-05-2025 Note Attestation signed by Irma Greco DO at 06/22/2024 12:31 PM I personally saw and examined the patient on the same date of service as resident/fellow. I discussed the findings and therapeutic plan with the resident/fellow. I agree with the documentation, except for any edits/updates below. Teaching Physician's Revisions: Agree with resident documentation and plan Psychiatry Service Progress Note Identifying Data Patient Name: Donnie Bullock MRN / CSN: [id number] Date of / Age: 6 1955 / 68 y.o. / female Encounter Date: 06/21/24 Diagnosis: Dementia with Lewy Bodies, Associated REM Sleep behavioral disorder Summary Health care surrogate: Vimal Bullock ([phone]) Mrs. Bullock's cognitive decline started in April,. The patient had COVID-19 in April,, she was never hospitalized and/or in the ICU. She was initially getting lost in familiar areas and forgetting words. Then in April, she wandered out of her home barefoot and only wearing a nightgown, during the night. A week after that first incident, she started telling her that he was not her and that there was another Vimal in the home that that does their dishes and laundry. The patient then started saying that there was a lady living with them. She was seen by Dr. Judy Chino, a psychologist in [place]. She then, approximately 1 year ago, began seeing neurology (Dr. Ambrose at [facility]). She also presented to [facility] for a second opinion in April, (MOCA score at that time was 17/30). The patient previously received services through [facility], this care was reported to be for her major neurocognitive disorder. This week the patient was experiencing worsening hallucinations. On Wednesday (06/05/2024) she reported that she killed her 4 kids and grandchildren. She stated she had their head in bags. The next day (06/06/2024) she was increasingly paranoid and told her that the network professional was coming to take her away and she was packing. She experiences visual hallucinations every day, intermittently. In particular, Mrs. Bullock sees babies suffocating and people living in her house. She also reports seeing dogs as well as squirrels on her husbands shoulder when they watch TV together. Furthermore, patient states when she was hospitalized at [facility] for (depressive symptoms) she saw ribbons in the hospital. She denies auditory hallucinations. Per chart review and history provided today there is also concern for capgras delusions, in the past patient has stated to Mr. Bullock you look like my Vimal, but you are not him. The patient does not become verbally and/or physically aggressive. She is exit seeking and left her house once in recent times. The patient exhibits signs and symptoms of worsening anxiety in recent times. She becomes very restless when anxious and paces around her home. The patient reports she is afraid when she feels lost. She struggles with recent and remote memory. Her memory, attention and concentration fluctuates. Mrs. Bullock has struggled with constipation her entire life. Patient is described as slurring her words at times and having word finding difficulty. No aphasia. Mrs. Bullock experienced worsening rigidity and attends physical therapy 2 times a week. She has an unsteady, shuffling gait with decreased arm swinging. She has orthostatic hypotension. She does not have trouble falling asleep. She is awake 7-8 times during the night, to use the restroom. She has vivid dreams. No dream re-enactment. No physical aggression and/or sleep walking during the night. Patient dresses self and showers self. Once a week daughter in law helps her bathe. (Vimal) does the cooking and cleaning, laundry, finances and medication management. She does not drive (stopped driving in April,). The patient was ambulating with a cane and then did not want to use it anymore. Now she walks for 10 mins at a time on her own. No recent falls. No head trauma. She is able to feed self and usually toilets by self (she was incontinent in the past). Patient/Collateral reports that the patient has low mood, hopelessness, helplessness, anhedonia, hypersomnolence throughout the day and decreased energy. She does not engage in any of her previous hobbies. She is isolated and does not want to go out with friends. She feels she is a burden to her family. No suicidal ideation, plan and intent. No homicidal ideation, plan and intent. Current Home Medications and Schedule: 8 am- Senna 2 tablets and Hydroxyzine 25 mg 6 PM- Haloperidol 0.5 mg 8 PM- Senna 2 tablets, mirtazapine 7.5 mg and hydroxyzine 25 mg PRN medications: D (more content not included)...[facility]02-05-2025 NotePROGRESS NOTE PATIENT: Donnie Bulolck, SEX: female, : 1955 SUBJECTIVE Patient evaluated while standing by the door of her room, in no acute distress. Resident seen for a follow up/med management for neurocognitive disorder with Lewy bodies, generalized anxiety disorder, paroxysmal supraventricular tachycardia, constipation, and COVID-19 in April 2023; 68 years old female directly admitted to [facility] head from home on 06/09/2024 for management of worsening visual hallucinations. No nursing or resident concerns besides missing her family but not her by them getting , tolerating meds, no recent falls Denies CP, SOB, n/v/d/c Objective Patient Vitals for the past 24 hrs: BP Temp Temp src Pulse Resp SpO2 06/21/24 0659 112/65 36.4 ???C (97.5 ???F) -- 78 17 99 % 06/20/24 1844 119/64 36.7 ???C (98.1 ???F) Temporal 80 16 99 % Physical Exam Constitutional: Appearance: Normal appearance. Comments: Ambulatory HENT: Head: Normocephalic and atraumatic. Right Ear: External ear normal. Left Ear: External ear normal. Nose: Nose normal. Mouth/Throat: Mouth: Mucous membranes are moist. Eyes: Extraocular Movements: Extraocular movements intact. Pupils: Pupils are equal, round, and reactive to light. Cardiovascular: Rate and Rhythm: Normal rate and regular rhythm. Pulses: Normal pulses. Heart sounds: Normal heart sounds. Pulmonary: Effort: Pulmonary effort is normal. Breath sounds: Normal breath sounds. Abdominal: General: Bowel sounds are normal. Palpations: Abdomen is soft. Musculoskeletal: General: Normal range of motion. Cervical back: Normal range of motion. Skin: General: Skin is warm and dry. Neurological: General: No focal deficit present. Mental Status: She is alert. Psychiatric: Mood and Affect: Mood normal. Comments: Flat affect, verbal Lab Results Component Value Date NA 140 06/10/2024 K 4.2 06/10/2024 CL 106 06/10/2024 ANIONGAP 14 06/10/2024 BUN 12 06/10/2024 CREATININE 0.69 06/10/2024 CALCIUM 9.4 06/10/2024 Lab Results Component Value Date BILITOT 0.5 06/10/2024 ALKPHOS 44 06/10/2024 AST 17 06/10/2024 ALT 15 06/10/2024 PROT 6.5 06/10/2024 ALBUMIN 3.9 06/10/2024 Lab Results Component Value Date WBC 4.74 06/12/2024 RBC 4.39 06/12/2024 HGB 13.1 06/12/2024 HCT 40.1 06/12/2024 MCV 91.3 06/12/2024 MCH 29.8 06/12/2024 MCHC 32.7 06/12/2024 RDW 12.3 06/12/2024 NEUTOPHILPCT 43.7 06/12/2024 LYMPHOPCT 46.2 (H) 06/12/2024 MONOPCT 7.6 06/12/2024 EOSPCT 1.7 06/12/2024 BASOPCT 0.6 06/12/2024 NEUTROABS 2.07 06/12/2024 LYMPHSABS 2.19 06/12/2024 MONOSABS 0.36 06/12/2024 EOSABS 0.08 06/12/2024 BASOSABS 0.03 06/12/2024 PLT 255 06/12/2024 NRBC 0.0 06/12/2024 No results found for this or any previous visit from the past 1 day. Principal Problem: Neurocognitive disorder with Lewy bodies (CMS/HCC) Active Problems: Slow transit constipation Visual hallucinations Paroxysmal supraventricular tachycardia (CMS/HCC) Personal history of COVID-19 Patient Active Problem List Diagnosis Date Noted Neurocognitive disorder with Lewy bodies (CMS/HCC) 06/10/2024 Slow transit constipation 06/10/2024 Visual hallucinations 06/10/2024 Paroxysmal supraventricular tachycardia (CMS/HCC) 06/10/2024 Personal history of COVID-19 06/10/2024 Current Facility-Administered Medications: acetaminophen (Tylenol) tablet 650 mg, 650 mg, oral, q6h PRN, Derrick Duckworth MD, 650 mg at 06/15/24 104 atorvastatin (Lipitor) tablet 10 mg, 10 mg, oral, Nightly, Du Mcmillan MD, 10 mg at 06/20/242133 melatonin tablet 20 mg, 20 mg, oral, Nightly, Irma Greco DO, 20 mg at 06/20/242133 memantine (Namenda) tablet 5 mg, 5 mg, oral, Daily, Irma Greco DO, 5 mg at 06/20/24811 nystatin (Mycostatin) 100,000 unit/gram powder, , Topical, BID, Du Mcmillan MD, Given at 06/20/24 2100 OLANZapine (ZyPREXA) injection 2.5 mg, 2.5 mg, intramuscular, BID PRN, Mily Juarez MD polyethylene glycol (Glycolax) packet 17 g, 17 g, oral, Daily PRN, Du Mcmillan MD, 17 g at 06/20/24 0913 QUEtiapine (SEROquel) split tablet 37.5 mg, 37.5 mg, oral, TID with meals, Irma Greco DO, 37.5 mg at 06/20/24 164 QUEtiapine (SEROquel) tablet 25 mg, 25 mg, oral, TID PRN, Mily Juarez MD QUEtiapine (SEROquel) tablet 75 mg, 75 mg, oral, Nightly, Irma Greco DO, 75 mg at 06/20/242132 sennosides-docusate sodium (Kriss-Colace) 8.6-50 mg per tablet 2 tablet, 2 tablet, oral, Nightly, Du Mcmillan MD, 2 tablet at 06/20/242133 ASSESSMENT/PLAN: Constipation: Ordered polyethylene glycol 17 g by mouth daily as needed, and sennosides/docusate 8.6/50 mg 2 tablets by mouth at bedtime daily Candidal intertrigo: Ordered nystatin powder topical apply to under the breast and all the involved areas including groin and abdominal folds Slow transit constipation: Continue s (more content not included)...[facility]02-04-2025 NotePsychiatry Service Progress Note Identifying Data Patient Name: Donnie Bullock MRN / CSN: [id number] Date of / Age: 6 1955 / 68 y.o. / female Encounter Date: 06/20/24 Diagnosis: Dementia with Lewy Bodies, Associated REM Sleep behavioral disorder Summary Health care surrogate: Vimal Bullock ([phone]) Mrs. Bullock's cognitive decline started in April,. The patient had COVID-19 in April,, she was never hospitalized and/or in the ICU. She was initially getting lost in familiar areas and forgetting words. Then in April, she wandered out of her home barefoot and only wearing a nightgown, during the night. A week after that first incident, she started telling her that he was not her and that there was another Vimal in the home that that does their dishes and laundry. The patient then started saying that there was a lady living with them. She was seen by Dr. Judy Chino, a psychologist in [place]. She then, approximately 1 year ago, began seeing neurology (Dr. Ambrose at [facility]). She also presented to the [facility] for a second opinion in April, (MOCA score at that time was 17/30). The patient previously received services through [facility], this care was reported to be for her major neurocognitive disorder. This week the patient was experiencing worsening hallucinations. On Wednesday (06/05/2024) she reported that she killed her 4 kids and grandchildren. She stated she had their head in bags. The next day (06/06/2024) she was increasingly paranoid and told her that the network professional was coming to take her away and she was packing. She experiences visual hallucinations every day, intermittently. In particular, Mrs. Bullock sees babies suffocating and people living in her house. She also reports seeing dogs as well as squirrels on her husbands shoulder when they watch TV together. Furthermore, patient states when she was hospitalized at [facility] for (depressive symptoms) she saw ribbons in the hospital. She denies auditory hallucinations. Per chart review and history provided today there is also concern for capgras delusions, in the past patient has stated to Mr. Bullock you look like my Vimal, but you are not him. The patient does not become verbally and/or physically aggressive. She is exit seeking and left her house once in recent times. The patient exhibits signs and symptoms of worsening anxiety in recent times. She becomes very restless when anxious and paces around her home. The patient reports she is afraid when she feels lost. She struggles with recent and remote memory. Her memory, attention and concentration fluctuates. Mrs. Bullock has struggled with constipation her entire life. Patient is described as slurring her words at times and having word finding difficulty. No aphasia. Mrs. Bullock experienced worsening rigidity and attends physical therapy 2 times a week. She has an unsteady, shuffling gait with decreased arm swinging. She has orthostatic hypotension. She does not have trouble falling asleep. She is awake 7-8 times during the night, to use the restroom. She has vivid dreams. No dream re-enactment. No physical aggression and/or sleep walking during the night. Patient dresses self and showers self. Once a week daughter in law helps her bathe. (Vimal) does the cooking and cleaning, laundry, finances and medication management. She does not drive (stopped driving in April,). The patient was ambulating with a cane and then did not want to use it anymore. Now she walks for 10 mins at a time on her own. No recent falls. No head trauma. She is able to feed self and usually toilets by self (she was incontinent in the past). Patient/Collateral reports that the patient has low mood, hopelessness, helplessness, anhedonia, hypersomnolence throughout the day and decreased energy. She does not engage in any of her previous hobbies. She is isolated and does not want to go out with friends. She feels she is a burden to her family. No suicidal ideation, plan and intent. No homicidal ideation, plan and intent. Current Home Medications and Schedule: 8 am- Senna 2 tablets and Hydroxyzine 25 mg 6 PM- Haloperidol 0.5 mg 8 PM- Senna 2 tablets, mirtazapine 7.5 mg and hydroxyzine 25 mg PRN medications: Diazepam 2 mg QID PRN for anxiety Previous medications: - Donepezil 5 mg, family discontinued at the end of April, due to worsening hallucinations - Alprazolam for anxiety - Risperidone, family does not recall the patient taking this medication - Melatonin for possible REM sleep behavior disorder, reported to worsen hallucinations Psychiatric course: 06/13: Increased Seroquel 12.5 mg to 25 mg TID. Discontinued Mirtazapine 7.5 mg. Started additional Seroquel 50 mg nightly. 06/14: Discontinued Rivastigmine 4.6m (more content not included)...[facility]02-04-2025 NotePROGRESS NOTE PATIENT: Donnie Bullock, SEX: female, : 1955 SUBJECTIVE Patient evaluated in a chair by the table in the dayroom assisted by the nurse, Naty, in no acute distress. Resident seen for a follow up/med management for neurocognitive disorder with Lewy bodies, generalized anxiety disorder, paroxysmal supraventricular tachycardia, constipation, and COVID-19 in April 2023; 68 years old female directly admitted to [facility] [employer] head from home on 06/09/2024 for management of worsening visual hallucinations. No nursing or resident concerns besides out looking for the nephrology social worker and was educated, tolerating meds, no recent falls Denies CP, SOB, n/v/d/c Objective Patient Vitals for the past 24 hrs: BP Temp Temp src Pulse Resp SpO2 06/20/24 0650 119/69 36.4 ???C (97.5 ???F) -- 83 -- 99 % 06/19/24 2100 135/71 36.6 ???C (97.8 ???F) Temporal 78 17 99 % Physical Exam Constitutional: Appearance: Normal appearance. Comments: Ambulatory with a walker and nurse assist HENT: Head: Normocephalic and atraumatic. Right Ear: External ear normal. Left Ear: External ear normal. Nose: Nose normal. Mouth/Throat: Mouth: Mucous membranes are moist. Eyes: Extraocular Movements: Extraocular movements intact. Pupils: Pupils are equal, round, and reactive to light. Cardiovascular: Rate and Rhythm: Normal rate and regular rhythm. Pulses: Normal pulses. Heart sounds: Normal heart sounds. Pulmonary: Effort: Pulmonary effort is normal. Breath sounds: Normal breath sounds. Abdominal: General: Bowel sounds are normal. Palpations: Abdomen is soft. Musculoskeletal: General: Normal range of motion. Cervical back: Normal range of motion. Skin: General: Skin is warm and dry. Neurological: General: No focal deficit present. Mental Status: She is alert. Psychiatric: Mood and Affect: Mood normal. Comments: Flat affect, verbal Lab Results Component Value Date NA 140 06/10/2024 K 4.2 06/10/2024 CL 106 06/10/2024 ANIONGAP 14 06/10/2024 BUN 12 06/10/2024 CREATININE 0.69 06/10/2024 CALCIUM 9.4 06/10/2024 Lab Results Component Value Date BILITOT 0.5 06/10/2024 ALKPHOS 44 06/10/2024 AST 17 06/10/2024 ALT 15 06/10/2024 PROT 6.5 06/10/2024 ALBUMIN 3.9 06/10/2024 Lab Results Component Value Date WBC 4.74 06/12/2024 RBC 4.39 06/12/2024 HGB 13.1 06/12/2024 HCT 40.1 06/12/2024 MCV 91.3 06/12/2024 MCH 29.8 06/12/2024 MCHC 32.7 06/12/2024 RDW 12.3 06/12/2024 NEUTOPHILPCT 43.7 06/12/2024 LYMPHOPCT 46.2 (H) 06/12/2024 MONOPCT 7.6 06/12/2024 EOSPCT 1.7 06/12/2024 BASOPCT 0.6 06/12/2024 NEUTROABS 2.07 06/12/2024 LYMPHSABS 2.19 06/12/2024 MONOSABS 0.36 06/12/2024 EOSABS 0.08 06/12/2024 BASOSABS 0.03 06/12/2024 PLT 255 06/12/2024 NRBC 0.0 06/12/2024 No results found for this or any previous visit from the past 1 day. Principal Problem: Neurocognitive disorder with Lewy bodies (CMS/HCC) Active Problems: Slow transit constipation Visual hallucinations Paroxysmal supraventricular tachycardia (CMS/HCC) Personal history of COVID-19 Patient Active Problem List Diagnosis Date Noted Neurocognitive disorder with Lewy bodies (CMS/HCC) 06/10/2024 Slow transit constipation 06/10/2024 Visual hallucinations 06/10/2024 Paroxysmal supraventricular tachycardia (CMS/HCC) 06/10/2024 Personal history of COVID-19 06/10/2024 Current Facility-Administered Medications: acetaminophen (Tylenol) tablet 650 mg, 650 mg, oral, q6h PRN, Derrick Duckworth MD, 650 mg at 06/15/24 1043 atorvastatin (Lipitor) tablet 10 mg, 10 mg, oral, Nightly, Du Mcmillan MD, 10 mg at 06/19/242117 melatonin tablet 20 mg, 20 mg, oral, Nightly, Irma Greco DO, 20 mg at 06/19/242116 memantine (Namenda) tablet 5 mg, 5 mg, oral, Daily, Irma Greco DO, 5 mg at 06/19/24 0831 nystatin (Mycostatin) 100,000 unit/gram powder, , Topical, BID, Du Mcmillan MD, Given at 06/19/24 213 OLANZapine (ZyPREXA) injection 2.5 mg, 2.5 mg, intramuscular, BID PRN, Mily Juarez MD polyethylene glycol (Glycolax) packet 17 g, 17 g, oral, Daily PRN, Du Mcmillan MD, 17 g at 06/18/24 0835 QUEtiapine (SEROquel) split tablet 37.5 mg, 37.5 mg, oral, TID with meals, Irma Greco DO, 37.5 mg at 06/19/24 165 QUEtiapine (SEROquel) tablet 25 mg, 25 mg, oral, TID PRN, Mily Juarez MD QUEtiapine (SEROquel) tablet 50 mg, 50 mg, oral, Nightly, Irma Greco DO, 50 mg at 06/19/242117 sennosides-docusate sodium (Kriss-Colace) 8.6-50 mg per tablet 2 tablet, 2 tablet, oral, Nightly, Du Mcmillan MD, 2 tablet at 06/19/242117 ASSESSMENT/PLAN: Constipation: Ordered polyethylene glycol 17 g by mouth daily as needed, and sennosides/docusate 8.6/50 mg 2 tablets by mouth at bedtime daily Candidal intertrigo: Ordered nystatin powder topical apply to under the breast and all the involved areas including groin and abdomina (more content not included)...[facility]02-03-2025 NotePsychiatry Service Progress Note Identifying Data Patient Name: Donnie Bullock MRN / CSN: [id number] Date of / Age: 6 1955 / 68 y.o. / female Encounter Date: 06/19/24 Diagnosis: Dementia with Lewy Bodies, Associated REM Sleep behavioral disorder Summary Health care surrogate: Vimal Bullock ([phone]) Mrs. Bullock's cognitive decline started in April,. The patient had COVID-19 in April,, she was never hospitalized and/or in the ICU. She was initially getting lost in familiar areas and forgetting words. Then in April, she wandered out of her home barefoot and only wearing a nightgown, during the night. A week after that first incident, she started telling her that he was not her and that there was another Vimal in the home that that does their dishes and laundry. The patient then started saying that there was a lady living with them. She was seen by Dr. Judy Chino, a psychologist in [place]. She then, approximately 1 year ago, began seeing neurology (Dr. Ambrose at [facility]). She also presented to the [facility] for a second opinion in April, (MOCA score at that time was 17/30). The patient previously received services through [facility], this care was reported to be for her major neurocognitive disorder. This week the patient was experiencing worsening hallucinations. On Wednesday (06/05/2024) she reported that she killed her 4 kids and grandchildren. She stated she had their head in bags. The next day (06/06/2024) she was increasingly paranoid and told her that the network professional was coming to take her away and she was packing. She experiences visual hallucinations every day, intermittently. In particular, Mrs. Bullock sees babies suffocating and people living in her house. She also reports seeing dogs as well as squirrels on her husbands shoulder when they watch TV together. Furthermore, patient states when she was hospitalized at [facility] for (depressive symptoms) she saw ribbons in the hospital. She denies auditory hallucinations. Per chart review and history provided today there is also concern for capgras delusions, in the past patient has stated to Mr. Bullock you look like my Vimal, but you are not him. The patient does not become verbally and/or physically aggressive. She is exit seeking and left her house once in recent times. The patient exhibits signs and symptoms of worsening anxiety in recent times. She becomes very restless when anxious and paces around her home. The patient reports she is afraid when she feels lost. She struggles with recent and remote memory. Her memory, attention and concentration fluctuates. Mrs. Bullock has struggled with constipation her entire life. Patient is described as slurring her words at times and having word finding difficulty. No aphasia. Mrs. Bullock experienced worsening rigidity and attends physical therapy 2 times a week. She has an unsteady, shuffling gait with decreased arm swinging. She has orthostatic hypotension. She does not have trouble falling asleep. She is awake 7-8 times during the night, to use the restroom. She has vivid dreams. No dream re-enactment. No physical aggression and/or sleep walking during the night. Patient dresses self and showers self. Once a week daughter in law helps her bathe. (Vimal) does the cooking and cleaning, laundry, finances and medication management. She does not drive (stopped driving in April,). The patient was ambulating with a cane and then did not want to use it anymore. Now she walks for 10 mins at a time on her own. No recent falls. No head trauma. She is able to feed self and usually toilets by self (she was incontinent in the past). Patient/Collateral reports that the patient has low mood, hopelessness, helplessness, anhedonia, hypersomnolence throughout the day and decreased energy. She does not engage in any of her previous hobbies. She is isolated and does not want to go out with friends. She feels she is a burden to her family. No suicidal ideation, plan and intent. No homicidal ideation, plan and intent. Current Home Medications and Schedule: 8 am- Senna 2 tablets and Hydroxyzine 25 mg 6 PM- Haloperidol 0.5 mg 8 PM- Senna 2 tablets, mirtazapine 7.5 mg and hydroxyzine 25 mg PRN medications: Diazepam 2 mg QID PRN for anxiety Previous medications: - Donepezil 5 mg, family discontinued at the end of April, due to worsening hallucinations - Alprazolam for anxiety - Risperidone, family does not recall the patient taking this medication - Melatonin for possible REM sleep behavior disorder, reported to worsen hallucinations Psychiatric course: 06/13: Increased Seroquel 12.5 mg to 25 mg TID. Discontinued Mirtazapine 7.5 mg. Started additional Seroquel 50 mg nightly. 06/14: Discontinued Rivastigmine 4.6m (more content not included)...[facility]02-03-2025 NoteTreatment Review Per report, pt has been compliant with her medications. Pt reported feeling tired and lazy. Pt wants to be healthy for her so he can take care of her. Pt has been having a poor reported appetite per pt. Pt had a good phone call with her . Pt slept for 5 hours of broken sleep. [facility] NoteProblem: Anxiety Goal: STG-Cooperates with evaluations from physicians/RNs Outcome: Progressing Note: Patient is cooperate with staff without issues but we continue to monitor. Goal: STG-Will not pace the floor more than 10 per shift Outcome: Progressing Note: Patient is pacing the unit but it is only one or two times a shift. Problem: Confusion Goal: STG-Engages in social situations appropriately 3 per shift Outcome: Not Progressing Note: Patient has only engaged in one social situation since admission. Problem: Psychotic Symptoms Goal: STG-Will report less than 12 hallucinations per shift by discharge Outcome: Progressing Note: Patient's hallucinations have improved but she is still seen responding to internal stimuli. Problem: Constipation Goal: STG-Regular elimination pattern by discharge Outcome: Not Progressing Note: Pt recently had to take a stool softener to assist with elimination. Goal: STG-Willingly takes stool softener medication by discharge Outcome: Progressing Note: Pt recently had to take a stool softener to assist with elimination. She was however compliant with this. Problem: Fall Risk Goal: STG-Zero falls by discharge Outcome: Progressing Note: No falls have been noted but we continue to monitor. Problem: Hypo/Hypertension Goal: STG-BP maintains 20mmhg of baseline by discharge Outcome: Progressing Note: Patient's BP has been within rang. We continue to monitor this due to risk patient already has. Goal: STG-Willingly allowing vitals twice daily Outcome: Progressing Note: Patient is compliant with vital request but we continue to monitor this. Problem: Confusion Goal: STG-Accepts redirection without escalation Outcome: Completed Note: Patient is redirectable at this time without issues. Problem: Depression Goal: STG-Will perform 50% of self-care by discharge Outcome: Completed Note: Patient does need help with ADL care but this fluctuates because of her dementia. Problem: Psychotic Symptoms Goal: STG-Differs between reality and non-reality Outcome: Completed Note: Patient is currently unable to tell the difference between real and not real due to her dementia. Problem: Fall Risk Goal: STG-Uses assitive devices properly Outcome: Completed Note: Patient has been doing well without a walker.[facility]02-03-2025 NotePROGRESS NOTE PATIENT: Donnie Bullock, SEX: female, : 1955 SUBJECTIVE Patient evaluated in a chair by the table in the dayroom drinking decaf coffee while awaiting breakfast, in no acute distress. Resident seen for a follow up/med management for neurocognitive disorder with Lewy bodies, generalized anxiety disorder, paroxysmal supraventricular tachycardia, constipation, and COVID-19 in April 2023; 68 years old female directly admitted to [facility] from home on 06/09/2024 for management of worsening visual hallucinations. No nursing or resident concerns besides nightmares and being tired, tolerating meds, no recent falls Denies CP, SOB, n/v/d/c Objective Patient Vitals for the past 24 hrs: BP Temp Temp src Pulse Resp SpO2 06/19/24 0648 113/63 36.7 ???C (98.1 ???F) -- 86 -- 97 % 06/18/24 1939 107/61 36.2 ???C (97.2 ???F) Oral 90 16 98 % Physical Exam Constitutional: Appearance: Normal appearance. Comments: In a chair HENT: Head: Normocephalic and atraumatic. Right Ear: External ear normal. Left Ear: External ear normal. Nose: Nose normal. Mouth/Throat: Mouth: Mucous membranes are moist. Eyes: Extraocular Movements: Extraocular movements intact. Pupils: Pupils are equal, round, and reactive to light. Cardiovascular: Rate and Rhythm: Normal rate and regular rhythm. Pulses: Normal pulses. Heart sounds: Normal heart sounds. Pulmonary: Effort: Pulmonary effort is normal. Breath sounds: Normal breath sounds. Abdominal: General: Bowel sounds are normal. Palpations: Abdomen is soft. Musculoskeletal: General: Normal range of motion. Cervical back: Normal range of motion. Skin: General: Skin is warm and dry. Neurological: General: No focal deficit present. Mental Status: She is alert. Psychiatric: Mood and Affect: Mood normal. Comments: Flat affect, verbal Lab Results Component Value Date NA 140 06/10/2024 K 4.2 06/10/2024 CL 106 06/10/2024 ANIONGAP 14 06/10/2024 BUN 12 06/10/2024 CREATININE 0.69 06/10/2024 CALCIUM 9.4 06/10/2024 Lab Results Component Value Date BILITOT 0.5 06/10/2024 ALKPHOS 44 06/10/2024 AST 17 06/10/2024 ALT 15 06/10/2024 PROT 6.5 06/10/2024 ALBUMIN 3.9 06/10/2024 Lab Results Component Value Date WBC 4.74 06/12/2024 RBC 4.39 06/12/2024 HGB 13.1 06/12/2024 HCT 40.1 06/12/2024 MCV 91.3 06/12/2024 MCH 29.8 06/12/2024 MCHC 32.7 06/12/2024 RDW 12.3 06/12/2024 NEUTOPHILPCT 43.7 06/12/2024 LYMPHOPCT 46.2 (H) 06/12/2024 MONOPCT 7.6 06/12/2024 EOSPCT 1.7 06/12/2024 BASOPCT 0.6 06/12/2024 NEUTROABS 2.07 06/12/2024 LYMPHSABS 2.19 06/12/2024 MONOSABS 0.36 06/12/2024 EOSABS 0.08 06/12/2024 BASOSABS 0.03 06/12/2024 PLT 255 06/12/2024 NRBC 0.0 06/12/2024 No results found for this or any previous visit from the past 1 day. Principal Problem: Neurocognitive disorder with Lewy bodies (CMS/HCC) Active Problems: Slow transit constipation Visual hallucinations Paroxysmal supraventricular tachycardia (CMS/HCC) Personal history of COVID-19 Patient Active Problem List Diagnosis Date Noted Neurocognitive disorder with Lewy bodies (CMS/HCC) 06/10/2024 Slow transit constipation 06/10/2024 Visual hallucinations 06/10/2024 Paroxysmal supraventricular tachycardia (CMS/HCC) 06/10/2024 Personal history of COVID-19 06/10/2024 Current Facility-Administered Medications: acetaminophen (Tylenol) tablet 650 mg, 650 mg, oral, q6h PRN, Derrick Duckworth MD, 650 mg at 06/15/24 1043 atorvastatin (Lipitor) tablet 10 mg, 10 mg, oral, Nightly, Du Mcmillan MD, 10 mg at 06/18/24 213 melatonin tablet 20 mg, 20 mg, oral, Nightly, Irma Greco DO, 20 mg at 06/18/24 213 memantine (Namenda) tablet 5 mg, 5 mg, oral, Daily, Irma Greco DO, 5 mg at 06/18/24 1022 nystatin (Mycostatin) 100,000 unit/gram powder, , Topical, BID, Du Mcmillan MD, Given at 06/18/24 2100 OLANZapine (ZyPREXA) injection 2.5 mg, 2.5 mg, intramuscular, BID PRN, Mily Juarez MD polyethylene glycol (Glycolax) packet 17 g, 17 g, oral, Daily PRN, Du Mcmillan MD, 17 g at 06/18/24 0835 QUEtiapine (SEROquel) split tablet 37.5 mg, 37.5 mg, oral, TID with meals, Irma Greco DO, 37.5 mg at 06/18/24 1705 QUEtiapine (SEROquel) tablet 25 mg, 25 mg, oral, TID PRN, Mily Juarez MD QUEtiapine (SEROquel) tablet 50 mg, 50 mg, oral, Nightly, Irma Greco DO, 50 mg at 06/18/242133 sennosides-docusate sodium (Kriss-Colace) 8.6-50 mg per tablet 2 tablet, 2 tablet, oral, Nightly, Du Mcmillan MD, 2 tablet at 06/18/242133 ASSESSMENT/PLAN: Constipation: Ordered polyethylene glycol 17 g by mouth daily as needed, and sennosides/docusate 8.6/50 mg 2 tablets by mouth at bedtime daily Candidal intertrigo: Ordered nystatin powder topical apply to under the breast and all the involved areas including groin and abdominal folds Slow transit constipation: Co (more content not included)...[facility]02-02-2025 NotePsychiatry Service Progress Note Identifying Data Patient Name: Donnie Bullock MRN / CSN: [id number] Date of / Age: 6 1955 / 68 y.o. / female Encounter Date: 06/18/24 Diagnosis: Dementia with Lewy Bodies, Associated REM Sleep behavioral disorder Summary Health care surrogate: Vimal Bullock ([phone]) Mrs. Bullock's cognitive decline started in April,. The patient had COVID-19 in April,, she was never hospitalized and/or in the ICU. She was initially getting lost in familiar areas and forgetting words. Then in April, she wandered out of her home barefoot and only wearing a nightgown, during the night. A week after that first incident, she started telling her that he was not her and that there was another Vimal in the home that that does their dishes and laundry. The patient then started saying that there was a lady living with them. She was seen by Dr. Judy Chino, a psychologist in [place]. She then, approximately 1 year ago, began seeing neurology (Dr. Ambrose at [facility]). She also presented to the [facility] the [facility] for a second opinion in April, (MOCA score at that time was 17/30). The patient previously received services through [facility], this care was reported to be for her major neurocognitive disorder. This week the patient was experiencing worsening hallucinations. On Wednesday (06/05/2024) she reported that she killed her 4 kids and grandchildren. She stated she had their head in bags. The next day (06/06/2024) she was increasingly paranoid and told her that the network professional was coming to take her away and she was packing. She experiences visual hallucinations every day, intermittently. In particular, Mrs. Bullock sees babies suffocating and people living in her house. She also reports seeing dogs as well as squirrels on her husbands shoulder when they watch TV together. Furthermore, patient states when she was hospitalized at [facility] for (depressive symptoms) she saw ribbons in the hospital. She denies auditory hallucinations. Per chart review and history provided today there is also concern for capgras delusions, in the past patient has stated to Mr. Bullock you look like my Vimal, but you are not him. The patient does not become verbally and/or physically aggressive. She is exit seeking and left her house once in recent times. The patient exhibits signs and symptoms of worsening anxiety in recent times. She becomes very restless when anxious and paces around her home. The patient reports she is afraid when she feels lost. She struggles with recent and remote memory. Her memory, attention and concentration fluctuates. Mrs. Bullock has struggled with constipation her entire life. Patient is described as slurring her words at times and having word finding difficulty. No aphasia. Mrs. Bullock experienced worsening rigidity and attends physical therapy 2 times a week. She has an unsteady, shuffling gait with decreased arm swinging. She has orthostatic hypotension. She does not have trouble falling asleep. She is awake 7-8 times during the night, to use the restroom. She has vivid dreams. No dream re-enactment. No physical aggression and/or sleep walking during the night. Patient dresses self and showers self. Once a week daughter in law helps her bathe. (Vimal) does the cooking and cleaning, laundry, finances and medication management. She does not drive (stopped driving in April,). The patient was ambulating with a cane and then did not want to use it anymore. Now she walks for 10 mins at a time on her own. No recent falls. No head trauma. She is able to feed self and usually toilets by self (she was incontinent in the past). Patient/Collateral reports that the patient has low mood, hopelessness, helplessness, anhedonia, hypersomnolence throughout the day and decreased energy. She does not engage in any of her previous hobbies. She is isolated and does not want to go out with friends. She feels she is a burden to her family. No suicidal ideation, plan and intent. No homicidal ideation, plan and intent. Current Home Medications and Schedule: 8 am- Senna 2 tablets and Hydroxyzine 25 mg 6 PM- Haloperidol 0.5 mg 8 PM- Senna 2 tablets, mirtazapine 7.5 mg and hydroxyzine 25 mg PRN medications: Diazepam 2 mg QID PRN for anxiety Previous medications: - Donepezil 5 mg, family discontinued at the end of April, due to worsening hallucinations - Alprazolam for anxiety - Risperidone, family does not recall the patient taking this medication - Melatonin for possible REM sleep behavior disorder, reported to worsen hallucinations Psychiatric course: 06/13: Increased Seroquel 12.5 mg to 25 mg TID. Discontinued Mirtazapine 7.5 mg. Started additional Seroquel 50 mg nightly. 06/14: Discontinued Rivastigmine 4.6m (more content not included)...[facility]02-02-2025 NoteProblem: Anxiety Goal: STG-Cooperates with evaluations from physicians/RNs Outcome: Progressing Problem: Confusion Goal: LTG-Interact appropriately within social settings Outcome: Progressing Problem: Depression Goal: STG-Will perform 50% of self-care by discharge Outcome: Progressing Problem: Fall Risk Goal: LTG-No falls Outcome: [facility]-2025 NotePROGRESS NOTE PATIENT: Donnie Bullock, SEX: female, : 1955 SUBJECTIVE Patient evaluated in a chair by the table in the dayroom eating breakfast, in no acute distress. Resident seen for a follow up/med management for neurocognitive disorder with Lewy bodies, generalized anxiety disorder, paroxysmal supraventricular tachycardia, constipation, and COVID-19 in April 2023; 68 years old female directly admitted to [facility] head from home on 06/09/2024 for management of worsening visual hallucinations. No nursing or resident concerns besides constipation and night dreams, tolerating meds, no recent falls Denies CP, SOB, n/v/d/c Objective Patient Vitals for the past 24 hrs: BP Temp Pulse Resp SpO2 06/17/24 0707 123/62 36.6 ???C (97.9 ???F) 85 -- 99 % 06/16/24 1938 134/68 36.4 ???C (97.5 ???F) 84 16 99 % Physical Exam Constitutional: Appearance: Normal appearance. Comments: In a chair HENT: Head: Normocephalic and atraumatic. Right Ear: External ear normal. Left Ear: External ear normal. Nose: Nose normal. Mouth/Throat: Mouth: Mucous membranes are moist. Eyes: Extraocular Movements: Extraocular movements intact. Pupils: Pupils are equal, round, and reactive to light. Cardiovascular: Rate and Rhythm: Normal rate and regular rhythm. Pulses: Normal pulses. Heart sounds: Normal heart sounds. Pulmonary: Effort: Pulmonary effort is normal. Breath sounds: Normal breath sounds. Abdominal: General: Bowel sounds are normal. Palpations: Abdomen is soft. Musculoskeletal: General: Normal range of motion. Cervical back: Normal range of motion. Skin: General: Skin is warm and dry. Neurological: General: No focal deficit present. Mental Status: She is alert. Psychiatric: Mood and Affect: Mood normal. Comments: Flat affect, verbal Lab Results Component Value Date NA 140 06/10/2024 K 4.2 06/10/2024 CL 106 06/10/2024 ANIONGAP 14 06/10/2024 BUN 12 06/10/2024 CREATININE 0.69 06/10/2024 CALCIUM 9.4 06/10/2024 Lab Results Component Value Date BILITOT 0.5 06/10/2024 ALKPHOS 44 06/10/2024 AST 17 06/10/2024 ALT 15 06/10/2024 PROT 6.5 06/10/2024 ALBUMIN 3.9 06/10/2024 Lab Results Component Value Date WBC 4.74 06/12/2024 RBC 4.39 06/12/2024 HGB 13.1 06/12/2024 HCT 40.1 06/12/2024 MCV 91.3 06/12/2024 MCH 29.8 06/12/2024 MCHC 32.7 06/12/2024 RDW 12.3 06/12/2024 NEUTOPHILPCT 43.7 06/12/2024 LYMPHOPCT 46.2 (H) 06/12/2024 MONOPCT 7.6 06/12/2024 EOSPCT 1.7 06/12/2024 BASOPCT 0.6 06/12/2024 NEUTROABS 2.07 06/12/2024 LYMPHSABS 2.19 06/12/2024 MONOSABS 0.36 06/12/2024 EOSABS 0.08 06/12/2024 BASOSABS 0.03 06/12/2024 PLT 255 06/12/2024 NRBC 0.0 06/12/2024 No results found for this or any previous visit from the past 1 day. Principal Problem: Neurocognitive disorder with Lewy bodies (CMS/HCC) Active Problems: Slow transit constipation Visual hallucinations Paroxysmal supraventricular tachycardia (CMS/HCC) Personal history of COVID-19 Patient Active Problem List Diagnosis Date Noted Neurocognitive disorder with Lewy bodies (CMS/HCC) 06/10/2024 Slow transit constipation 06/10/2024 Visual hallucinations 06/10/2024 Paroxysmal supraventricular tachycardia (CMS/HCC) 06/10/2024 Personal history of COVID-19 06/10/2024 Current Facility-Administered Medications: acetaminophen (Tylenol) tablet 650 mg, 650 mg, oral, q6h PRN, Derrick Duckworth MD, 650 mg at 06/15/243 atorvastatin (Lipitor) tablet 10 mg, 10 mg, oral, Nightly, Du Mcmillan MD, 10 mg at 06/16/242001 melatonin tablet 20 mg, 20 mg, oral, Nightly, Irma Greco DO, 20 mg at 06/16/242001 nystatin (Mycostatin) 100,000 unit/gram powder, , Topical, BID, Du Mcmillan MD, Given at 06/16/242002 OLANZapine (ZyPREXA) injection 2.5 mg, 2.5 mg, intramuscular, BID PRN, Mily Juarez MD polyethylene glycol (Glycolax) packet 17 g, 17 g, oral, Daily PRN, Du Mcmillan MD, 17 g at 06/13/24 1101 QUEtiapine (SEROquel) split tablet 37.5 mg, 37.5 mg, oral, TID with meals, Irma Kononov, DO, 37.5 mg at 06/16/24 1807 QUEtiapine (SEROquel) tablet 25 mg, 25 mg, oral, TID PRN, Mily Juarez MD QUEtiapine (SEROquel) tablet 50 mg, 50 mg, oral, Nightly, Irma Kononov, DO, 50 mg at 06/16/242001 sennosides-docusate sodium (Kriss-Colace) 8.6-50 mg per tablet 2 tablet, 2 tablet, oral, Nightly, Du Mcmillan MD, 2 tablet at 06/16/242001 ASSESSMENT/PLAN: Constipation: Ordered polyethylene glycol 17 g by mouth daily as needed, and sennosides/docusate 8.6/50 mg 2 tablets by mouth at bedtime daily Candidal intertrigo: Ordered nystatin powder topical apply to under the breast and all the involved areas including groin and abdominal folds Slow transit constipation: Continue senna-docusate 2 tablets by mouth at bedtime daily Mixed hyperlipidemia: Start atorvastatin 10 mg by mouth at bedtime daily Depre (more content not included)...[facility] 06-16-2024 NoteProblem: Anxiety Goal: STG-Cooperates with evaluations from physicians/RNs Outcome: Progressing Problem: Confusion Goal: LTG-Take medications as prescribed Outcome: Progressing Problem: Depression Goal: LTG-Demonstrate symptoms will not compromise daily living Outcome: Progressing Problem: Fall Risk Goal: LTG-No falls Outcome: [facility]Un[facility]25 NoteTreatment Review Per report, pt continues to be depressed. Pt was looking for her and her parents yesterday. Pt did not have any hallucinations last night but was having hallucinations in the afternoon and was looking at the ground. Pt had her seroquel increased. [facility]: [facility]25 NotePsychiatry Service Progress Note Identifying Data Patient Name: Donnie Bullock MRN / CSN: [id number] Date of / Age: 6 1955 / 68 y.o. / female Encounter Date: 06/16/24 Diagnosis: Dementia with Lewy Bodies, Associated REM Sleep behavioral disorder Summary Health care surrogate: Vimal Bullock ([phone]) Mrs. Bullock's cognitive decline started in April,. The patient had COVID-19 in April,, she was never hospitalized and/or in the ICU. She was initially getting lost in familiar areas and forgetting words. Then in April, she wandered out of her home barefoot and only wearing a nightgown, during the night. A week after that first incident, she started telling her that he was not her and that there was another Vimal in the home that that does their dishes and laundry. The patient then started saying that there was a lady living with them. She was seen by Dr. Judy Chino, a psychologist in [place]. She then, approximately 1 year ago, began seeing neurology (Dr. Ambrose at [facility]). She also presented to the [facility] for a second opinion in April, (MOCA score at that time was 17/30). The patient previously received services through [facility], this care was reported to be for her major neurocognitive disorder. This week the patient was experiencing worsening hallucinations. On Wednesday (06/05/2024) she reported that she killed her 4 kids and grandchildren. She stated she had their head in bags. The next day (06/06/2024) she was increasingly paranoid and told her that the network professional was coming to take her away and she was packing. She experiences visual hallucinations every day, intermittently. In particular, Mrs. Bullock sees babies suffocating and people living in her house. She also reports seeing dogs as well as squirrels on her husbands shoulder when they watch TV together. Furthermore, patient states when she was hospitalized at [facility] for (depressive symptoms) she saw ribbons in the hospital. She denies auditory hallucinations. Per chart review and history provided today there is also concern for capgras delusions, in the past patient has stated to Mr. Bullock you look like my Vimal, but you are not him. The patient does not become verbally and/or physically aggressive. She is exit seeking and left her house once in recent times. The patient exhibits signs and symptoms of worsening anxiety in recent times. She becomes very restless when anxious and paces around her home. The patient reports she is afraid when she feels lost. She struggles with recent and remote memory. Her memory, attention and concentration fluctuates. Mrs. Bullock has struggled with constipation her entire life. Patient is described as slurring her words at times and having word finding difficulty. No aphasia. Mrs. Bullock experienced worsening rigidity and attends physical therapy 2 times a week. She has an unsteady, shuffling gait with decreased arm swinging. She has orthostatic hypotension. She does not have trouble falling asleep. She is awake 7-8 times during the night, to use the restroom. She has vivid dreams. No dream re-enactment. No physical aggression and/or sleep walking during the night. Patient dresses self and showers self. Once a week daughter in law helps her bathe. (Vimal) does the cooking and cleaning, laundry, finances and medication management. She does not drive (stopped driving in April,). The patient was ambulating with a cane and then did not want to use it anymore. Now she walks for 10 mins at a time on her own. No recent falls. No head trauma. She is able to feed self and usually toilets by self (she was incontinent in the past). Patient/Collateral reports that the patient has low mood, hopelessness, helplessness, anhedonia, hypersomnolence throughout the day and decreased energy. She does not engage in any of her previous hobbies. She is isolated and does not want to go out with friends. She feels she is a burden to her family. No suicidal ideation, plan and intent. No homicidal ideation, plan and intent. Current Home Medications and Schedule: 8 am- Senna 2 tablets and Hydroxyzine 25 mg 6 PM- Haloperidol 0.5 mg 8 PM- Senna 2 tablets, mirtazapine 7.5 mg and hydroxyzine 25 mg PRN medications: Diazepam 2 mg QID PRN for anxiety Previous medications: - Donepezil 5 mg, family discontinued at the end of April, due to worsening hallucinations - Alprazolam for anxiety - Risperidone, family does not recall the patient taking this medication - Melatonin for possible REM sleep behavior disorder, reported to worsen hallucinations Psychiatric course: 06/13: Increased Seroquel 12.5 mg to 25 mg TID. Discontinued Mirtazapine 7.5 mg. Started additional Seroquel 50 mg nightly. 06/14: Discontinued Rivastigmine 4.6m (more content not included)...[facility]01-31-2025 NotePROGRESS NOTE PATIENT: Donnie Bullock, SEX: female, : 1955 SUBJECTIVE Patient evaluated in a chair by the table in the dayroom eating breakfast, in no acute distress.. Resident seen for a follow up/med management for neurocognitive disorder with Lewy bodies, generalized anxiety disorder, paroxysmal supraventricular tachycardia, constipation, and COVID-19 in April 2023; 68 years old female directly admitted to [facility] [employer] from home on 06/09/2024 for management of worsening visual hallucinations. No nursing or resident concerns besides night dreams, tolerating meds, no recent falls Denies CP, SOB, n/v/d/c Objective Patient Vitals for the past 24 hrs: BP Temp Temp src Pulse Resp SpO2 06/16/24 0644 (!) 125/45 36.3 ???C (97.3 ???F) -- 71 -- 99 % 06/15/24 1921 114/64 36.7 ???C (98 ???F) Temporal 87 16 100 % 06/15/24 1043 (!) 123/7 -- -- 80 -- 99 % Physical Exam Constitutional: Appearance: Normal appearance. Comments: In a chair HENT: Head: Normocephalic and atraumatic. Right Ear: External ear normal. Left Ear: External ear normal. Nose: Nose normal. Mouth/Throat: Mouth: Mucous membranes are moist. Eyes: Extraocular Movements: Extraocular movements intact. Pupils: Pupils are equal, round, and reactive to light. Cardiovascular: Rate and Rhythm: Normal rate and regular rhythm. Pulses: Normal pulses. Heart sounds: Normal heart sounds. Pulmonary: Effort: Pulmonary effort is normal. Breath sounds: Normal breath sounds. Abdominal: General: Bowel sounds are normal. Palpations: Abdomen is soft. Musculoskeletal: General: Normal range of motion. Cervical back: Normal range of motion. Skin: General: Skin is warm and dry. Neurological: General: No focal deficit present. Mental Status: She is alert. Psychiatric: Mood and Affect: Mood normal. Comments: Flat affect, verbal Lab Results Component Value Date NA 140 06/10/2024 K 4.2 06/10/2024 CL 106 06/10/2024 ANIONGAP 14 06/10/2024 BUN 12 06/10/2024 CREATININE 0.69 06/10/2024 CALCIUM 9.4 06/10/2024 Lab Results Component Value Date BILITOT 0.5 06/10/2024 ALKPHOS 44 06/10/2024 AST 17 06/10/2024 ALT 15 06/10/2024 PROT 6.5 06/10/2024 ALBUMIN 3.9 06/10/2024 Lab Results Component Value Date WBC 4.74 06/12/2024 RBC 4.39 06/12/2024 HGB 13.1 06/12/2024 HCT 40.1 06/12/2024 MCV 91.3 06/12/2024 MCH 29.8 06/12/2024 MCHC 32.7 06/12/2024 RDW 12.3 06/12/2024 NEUTOPHILPCT 43.7 06/12/2024 LYMPHOPCT 46.2 (H) 06/12/2024 MONOPCT 7.6 06/12/2024 EOSPCT 1.7 06/12/2024 BASOPCT 0.6 06/12/2024 NEUTROABS 2.07 06/12/2024 LYMPHSABS 2.19 06/12/2024 MONOSABS 0.36 06/12/2024 EOSABS 0.08 06/12/2024 BASOSABS 0.03 06/12/2024 PLT 255 06/12/2024 NRBC 0.0 06/12/2024 No results found for this or any previous visit from the past 1 day. Principal Problem: Neurocognitive disorder with Lewy bodies (CMS/HCC) Active Problems: Slow transit constipation Visual hallucinations Paroxysmal supraventricular tachycardia (CMS/HCC) Personal history of COVID-19 Patient Active Problem List Diagnosis Date Noted Neurocognitive disorder with Lewy bodies (CMS/HCC) 06/10/2024 Slow transit constipation 06/10/2024 Visual hallucinations 06/10/2024 Paroxysmal supraventricular tachycardia (CMS/HCC) 06/10/2024 Personal history of COVID-19 06/10/2024 Current Facility-Administered Medications: acetaminophen (Tylenol) tablet 650 mg, 650 mg, oral, q6h PRN, Derrick Duckworth MD, 650 mg at 06/15/24 1043 atorvastatin (Lipitor) tablet 10 mg, 10 mg, oral, Nightly, Du Mcmillan MD, 10 mg at 06/15/242019 melatonin tablet 20 mg, 20 mg, oral, Nightly, Irma Greco DO, 20 mg at 06/15/242019 nystatin (Mycostatin) 100,000 unit/gram powder, , Topical, BID, Du Mcmillan MD, Given at 06/15/242024 OLANZapine (ZyPREXA) injection 2.5 mg, 2.5 mg, intramuscular, BID PRN, Mily Juarez MD polyethylene glycol (Glycolax) packet 17 g, 17 g, oral, Daily PRN, Du Mcmillan MD, 17 g at 06/13/24 1101 QUEtiapine (SEROquel) tablet 25 mg, 25 mg, oral, TID PRN, Mily Juarez MD QUEtiapine (SEROquel) tablet 25 mg, 25 mg, oral, TID with meals, Irma Greco DO, 25 mg at 06/15/24 165 QUEtiapine (SEROquel) tablet 50 mg, 50 mg, oral, Nightly, Irma Gerco DO, 50 mg at 06/15/242019 sennosides-docusate sodium (Kriss-Colace) 8.6-50 mg per tablet 2 tablet, 2 tablet, oral, Nightly, Du Mcmillan MD, 2 tablet at 06/15/242019 ASSESSMENT/PLAN: Candidal intertrigo: Ordered nystatin powder topical apply to under the breast and all the involved areas including groin and abdominal folds Slow transit constipation: Continue senna-docusate 2 tablets by mouth at bedtime daily Mixed hyperlipidemia: Start atorvastatin 10 mg by mouth at bedtime daily Depression: On mirtazapine 7.5 mg by mouth at bedtime daily Major Neurocognitive Disorder with Lewy bodies: On (more content not included)...[facility]01-30-2025 NoteProblem: Anxiety Goal: STG-Cooperates with evaluations from physicians/RNs Outcome: Progressing Problem: Confusion Goal: LTG-Interact appropriately within social settings Outcome: Progressing Problem: Psychotic Symptoms Goal: LTG-Take medications as prescribed Outcome: Progressing Problem: Fall Risk Goal: LTG-No falls Outcome: [facility] NotePROGRESS NOTE PATIENT: Donnie Bullock, SEX: female, : 1955 SUBJECTIVE Patient evaluated while sitting by the edge of the bed in her room, in no acute distress. Resident seen for a follow up/med management for neurocognitive disorder with Lewy bodies, generalized anxiety disorder, paroxysmal supraventricular tachycardia, constipation, and COVID-19 in April 2023; 68 years old female directly admitted to [facility] [employer] from home on 06/09/2024 for management of worsening visual hallucinations. No nursing or resident concerns besides inquiring when her is coming to pick him up, tolerating meds, no recent falls Denies CP, SOB, n/v/d/c Objective Patient Vitals for the past 24 hrs: BP Temp Temp src Pulse Resp SpO2 06/15/24 0707 116/66 36.5 ???C (97.7 ???F) -- 77 17 97 % 06/14/24 1858 122/61 36.8 ???C (98.2 ???F) Temporal 78 16 99 % 06/14/24 0714 127/69 36.5 ???C (97.7 ???F) -- 74 16 100 % Physical Exam Constitutional: Appearance: Normal appearance. Comments: In bed HENT: Head: Normocephalic and atraumatic. Right Ear: External ear normal. Left Ear: External ear normal. Nose: Nose normal. Mouth/Throat: Mouth: Mucous membranes are moist. Eyes: Extraocular Movements: Extraocular movements intact. Pupils: Pupils are equal, round, and reactive to light. Cardiovascular: Rate and Rhythm: Normal rate and regular rhythm. Pulses: Normal pulses. Heart sounds: Normal heart sounds. Pulmonary: Effort: Pulmonary effort is normal. Breath sounds: Normal breath sounds. Abdominal: General: Bowel sounds are normal. Palpations: Abdomen is soft. Musculoskeletal: General: Normal range of motion. Cervical back: Normal range of motion. Skin: General: Skin is warm and dry. Neurological: General: No focal deficit present. Mental Status: She is alert. Psychiatric: Mood and Affect: Mood normal. Comments: Verbal Lab Results Component Value Date NA 140 06/10/2024 K 4.2 06/10/2024 CL 106 06/10/2024 ANIONGAP 14 06/10/2024 BUN 12 06/10/2024 CREATININE 0.69 06/10/2024 CALCIUM 9.4 06/10/2024 Lab Results Component Value Date BILITOT 0.5 06/10/2024 ALKPHOS 44 06/10/2024 AST 17 06/10/2024 ALT 15 06/10/2024 PROT 6.5 06/10/2024 ALBUMIN 3.9 06/10/2024 Lab Results Component Value Date WBC 4.74 06/12/2024 RBC 4.39 06/12/2024 HGB 13.1 06/12/2024 HCT 40.1 06/12/2024 MCV 91.3 06/12/2024 MCH 29.8 06/12/2024 MCHC 32.7 06/12/2024 RDW 12.3 06/12/2024 NEUTOPHILPCT 43.7 06/12/2024 LYMPHOPCT 46.2 (H) 06/12/2024 MONOPCT 7.6 06/12/2024 EOSPCT 1.7 06/12/2024 BASOPCT 0.6 06/12/2024 NEUTROABS 2.07 06/12/2024 LYMPHSABS 2.19 06/12/2024 MONOSABS 0.36 06/12/2024 EOSABS 0.08 06/12/2024 BASOSABS 0.03 06/12/2024 PLT 255 06/12/2024 NRBC 0.0 06/12/2024 No results found for this or any previous visit from the past 1 day. Principal Problem: Neurocognitive disorder with Lewy bodies (CMS/HCC) Active Problems: Slow transit constipation Visual hallucinations Paroxysmal supraventricular tachycardia (CMS/HCC) Personal history of COVID-19 Patient Active Problem List Diagnosis Date Noted Neurocognitive disorder with Lewy bodies (CMS/HCC) 06/10/2024 Slow transit constipation 06/10/2024 Visual hallucinations 06/10/2024 Paroxysmal supraventricular tachycardia ([facility]) 06/10/2024 Personal history of COVID-19 06/10/2024 Current Facility-Administered Medications: acetaminophen (Tylenol) tablet 650 mg, 650 mg, oral, q6h PRN, Derrick Duckworth MD, 650 mg at 06/13/242006 atorvastatin (Lipitor) tablet 10 mg, 10 mg, oral, Nightly, Du Mcmillan MD, 10 mg at 06/14/242007 melatonin tablet 20 mg, 20 mg, oral, Nightly, Irma Greco DO, 20 mg at 06/14/242006 nystatin (Mycostatin) 100,000 unit/gram powder, , Topical, BID, Du Mcmillan MD, Given at 06/14/242007 OLANZapine (ZyPREXA) injection 2.5 mg, 2.5 mg, intramuscular, BID PRN, Mily Juarez MD polyethylene glycol (Glycolax) packet 17 g, 17 g, oral, Daily PRN, Du Mcmillan MD, 17 g at 06/13/24 1101 QUEtiapine (SEROquel) tablet 25 mg, 25 mg, oral, TID PRN, Mily Juarez MD QUEtiapine (SEROquel) tablet 25 mg, 25 mg, oral, TID with meals, Irma Greco, DO, 25 mg at 06/14/24 1653 QUEtiapine (SEROquel) tablet 50 mg, 50 mg, oral, Nightly, Irma Greco DO, 50 mg at 06/14/242007 sennosides-docusate sodium (Kriss-Colace) 8.6-50 mg per tablet 2 tablet, 2 tablet, oral, Nightly, Du Mcmillan MD, 2 tablet at 06/14/242007 ASSESSMENT/PLAN: Candidal intertrigo: Ordered nystatin powder topical apply to under the breast and all the involved areas including groin and abdominal folds Slow transit constipation: Continue senna-docusate 2 tablets by mouth at bedtime daily Mixed hyperlipidemia: Start atorvastatin 10 mg by mouth at bedtime daily Depression: On mirtazapine 7.5 mg by mouth at bedtime daily Major Neurocognitive Di (more content not included)...[facility]01-30-2025 NotePsychiatry Service Progress Note Identifying Data Patient Name: Donnie Bullock MRN / CSN: [id number] Date of / Age: 6 1955 / 68 y.o. / female Encounter Date: 06/15/24 Diagnosis: Dementia with Lewy Bodies, Associated REM Sleep behavioral disorder Summary Health care surrogate: Vimal Bullock ([phone]) Mrs. Bullock's cognitive decline started in April,. The patient had COVID-19 in April,, she was never hospitalized and/or in the ICU. She was initially getting lost in familiar areas and forgetting words. Then in April, she wandered out of her home barefoot and only wearing a nightgown, during the night. A week after that first incident, she started telling her that he was not her and that there was another Vimal in the home that that does their dishes and laundry. The patient then started saying that there was a lady living with them. She was seen by Dr. Judy Chino, a psychologist in [place]. She then, approximately 1 year ago, began seeing neurology (Dr. Ambrose at [facility]). She also presented to [facility] for a second opinion in April, (MOCA score at that time was 17/30). The patient previously received services through [facility], this care was reported to be for her major neurocognitive disorder. This week the patient was experiencing worsening hallucinations. On Wednesday (06/05/2024) she reported that she killed her 4 kids and grandchildren. She stated she had their head in bags. The next day (06/06/2024) she was increasingly paranoid and told her that the network professional was coming to take her away and she was packing. She experiences visual hallucinations every day, intermittently. In particular, Mrs. Bullock sees babies suffocating and people living in her house. She also reports seeing dogs as well as squirrels on her husbands shoulder when they watch TV together. Furthermore, patient states when she was hospitalized at [facility] for (depressive symptoms) she saw ribbons in the hospital. She denies auditory hallucinations. Per chart review and history provided today there is also concern for capgras delusions, in the past patient has stated to Mr. Bullock you look like my Vimal, but you are not him. The patient does not become verbally and/or physically aggressive. She is exit seeking and left her house once in recent times. The patient exhibits signs and symptoms of worsening anxiety in recent times. She becomes very restless when anxious and paces around her home. The patient reports she is afraid when she feels lost. She struggles with recent and remote memory. Her memory, attention and concentration fluctuates. Mrs. Bullock has struggled with constipation her entire life. Patient is described as slurring her words at times and having word finding difficulty. No aphasia. Mrs. Bullock experienced worsening rigidity and attends physical therapy 2 times a week. She has an unsteady, shuffling gait with decreased arm swinging. She has orthostatic hypotension. She does not have trouble falling asleep. She is awake 7-8 times during the night, to use the restroom. She has vivid dreams. No dream re-enactment. No physical aggression and/or sleep walking during the night. Patient dresses self and showers self. Once a week daughter in law helps her bathe. (Vimal) does the cooking and cleaning, laundry, finances and medication management. She does not drive (stopped driving in April,). The patient was ambulating with a cane and then did not want to use it anymore. Now she walks for 10 mins at a time on her own. No recent falls. No head trauma. She is able to feed self and usually toilets by self (she was incontinent in the past). Patient/Collateral reports that the patient has low mood, hopelessness, helplessness, anhedonia, hypersomnolence throughout the day and decreased energy. She does not engage in any of her previous hobbies. She is isolated and does not want to go out with friends. She feels she is a burden to her family. No suicidal ideation, plan and intent. No homicidal ideation, plan and intent. Current Home Medications and Schedule: 8 am- Senna 2 tablets and Hydroxyzine 25 mg 6 PM- Haloperidol 0.5 mg 8 PM- Senna 2 tablets, mirtazapine 7.5 mg and hydroxyzine 25 mg PRN medications: Diazepam 2 mg QID PRN for anxiety Previous medications: - Donepezil 5 mg, family discontinued at the end of April, due to worsening hallucinations - Alprazolam for anxiety - Risperidone, family does not recall the patient taking this medication - Melatonin for possible REM sleep behavior disorder, reported to worsen hallucinations Psychiatric course: 06/13: Increased Seroquel 12.5 mg to 25 mg TID. Discontinued Mirtazapine 7.5 mg. Started additional Seroquel 50 mg nightly. 06/14: Discontinued Rivastigmine 4.6m (more content not included)...[facility]01-29-2025 NoteProblem: Anxiety Goal: STG-Cooperates with evaluations from physicians/RNs Outcome: Progressing Problem: Confusion Goal: LTG-Interact appropriately within social settings Outcome: Progressing Problem: Depression Goal: LTG-Take medications as prescribed Outcome: Progressing Problem: Psychotic Symptoms Goal: LTG-Decrease in targeted symptoms Outcome: [facility]Un[facility] NoteTreatment Review Per report, pt understands that she is diagnosed with lewy body dementia. Pt reported that she saw a bunny on the foot of her bed. [facility]charge plan: [facility]-29-[facility]25 NoteProblem: Anxiety Goal: STG-Cooperates with evaluations from physicians/RNs Outcome: Progressing Goal: STG-Will not pace the floor more than 10 per shift Outcome: Progressing Problem: Confusion Goal: STG-Engages in social situations appropriately 3 per shift Outcome: Not ProgressingUnProMed[facility]01-29-2025 Note PROGRESS NOTE PATIENT: Donnie Bullock, SEX: female, : 1955 SUBJECTIVE Patient evaluated while lying down supine in bed in her room, in no acute distress. Resident seen for a follow up/med management for neurocognitive disorder with Lewy bodies, generalized anxiety disorder, paroxysmal supraventricular tachycardia, constipation, and COVID-19 in April 2023; 68 years old female directly admitted to [facility] head from home on 06/09/2024 for management of worsening visual hallucinations. No nursing or resident concerns besides not feeling hungry, tolerating meds, no recent falls Denies CP, SOB, n/v/d/c Objective Patient Vitals for the past 24 hrs: BP Temp Pulse Resp SpO2 06/14/24 0714 127/69 36.5 ???C (97.7 ???F) 74 16 100 % 06/13/24 1909 118/59 -- 76 -- 98 % 06/13/24 1906 106/50 36.5 ???C (97.7 ???F) 69 16 99 % Physical Exam Constitutional: Appearance: Normal appearance. Comments: In bed HENT: Head: Normocephalic and atraumatic. Right Ear: External ear normal. Left Ear: External ear normal. Nose: Nose normal. Mouth/Throat: Mouth: Mucous membranes are moist. Eyes: Extraocular Movements: Extraocular movements intact. Pupils: Pupils are equal, round, and reactive to light. Cardiovascular: Rate and Rhythm: Normal rate and regular rhythm. Pulses: Normal pulses. Heart sounds: Normal heart sounds. Pulmonary: Effort: Pulmonary effort is normal. Breath sounds: Normal breath sounds. Abdominal: General: Bowel sounds are normal. Palpations: Abdomen is soft. Musculoskeletal: General: Normal range of motion. Cervical back: Normal range of motion. Skin: General: Skin is warm and dry. Neurological: General: No focal deficit present. Mental Status: She is alert. Psychiatric: Mood and Affect: Mood normal. Comments: Verbal Lab Results Component Value Date NA 140 06/10/2024 K 4.2 06/10/2024 CL 106 06/10/2024 ANIONGAP 14 06/10/2024 BUN 12 06/10/2024 CREATININE 0.69 06/10/2024 CALCIUM 9.4 06/10/2024 Lab Results Component Value Date BILITOT 0.5 06/10/2024 ALKPHOS 44 06/10/2024 AST 17 06/10/2024 ALT 15 06/10/2024 PROT 6.5 06/10/2024 ALBUMIN 3.9 06/10/2024 Lab Results Component Value Date WBC 4.74 06/12/2024 RBC 4.39 06/12/2024 HGB 13.1 06/12/2024 HCT 40.1 06/12/2024 MCV 91.3 06/12/2024 MCH 29.8 06/12/2024 MCHC 32.7 06/12/2024 RDW 12.3 06/12/2024 NEUTOPHILPCT 43.7 06/12/2024 LYMPHOPCT 46.2 (H) 06/12/2024 MONOPCT 7.6 06/12/2024 EOSPCT 1.7 06/12/2024 BASOPCT 0.6 06/12/2024 NEUTROABS 2.07 06/12/2024 LYMPHSABS 2.19 06/12/2024 MONOSABS 0.36 06/12/2024 EOSABS 0.08 06/12/2024 BASOSABS 0.03 06/12/2024 PLT 255 06/12/2024 NRBC 0.0 06/12/2024 No results found for this or any previous visit from the past 1 day. Principal Problem: Neurocognitive disorder with Lewy bodies (CMS/HCC) Active Problems: Slow transit constipation Visual hallucinations Paroxysmal supraventricular tachycardia (CMS/HCC) Personal history of COVID-19 Patient Active Problem List Diagnosis Date Noted Neurocognitive disorder with Lewy bodies (CMS/HCC) 06/10/2024 Slow transit constipation 06/10/2024 Visual hallucinations 06/10/2024 Paroxysmal supraventricular tachycardia (CMS/HCC) 06/10/2024 Personal history of COVID-19 06/10/2024 Current Facility-Administered Medications: acetaminophen (Tylenol) tablet 650 mg, 650 mg, oral, q6h PRN, Derrick Duckworth MD, 650 mg at 06/13/242006 atorvastatin (Lipitor) tablet 10 mg, 10 mg, oral, Nightly, Du Mcmillan MD, 10 mg at 06/13/241999 melatonin tablet 12 mg, 12 mg, oral, Nightly, Irma Greco DO, 12 mg at 06/13/241999 nystatin (Mycostatin) 100,000 unit/gram powder, , Topical, BID, Du Mcmillan MD, Given at 06/13/242001 OLANZapine (ZyPREXA) injection 2.5 mg, 2.5 mg, intramuscular, BID PRN, Mily Juarez MD polyethylene glycol (Glycolax) packet 17 g, 17 g, oral, Daily PRN, Du Mcmillan MD, 17 g at 06/13/24 1101 QUEtiapine (SEROquel) tablet 25 mg, 25 mg, oral, TID PRN, Mily Juarez MD QUEtiapine (SEROquel) tablet 25 mg, 25 mg, oral, TID with meals, Irmastephie Amayaonoelena, DO, 25 mg at 06/13/24 1635 QUEtiapine (SEROquel) tablet 50 mg, 50 mg, oral, Nightly, Irma Kononov, DO, 50 mg at 06/13/241999 rivastigmine (Exelon) 4.6 mg/24 hour 1 patch, 1 patch, transdermal, Daily, Irma Jose Luisonov DO, 1 patch at 06/13/24 0832 sennosides-docusate sodium (Kriss-Colace) 8.6-50 mg per tablet 2 tablet, 2 tablet, oral, Nightly, Du Mcmillan MD, 2 tablet at 06/13/242000 ASSESSMENT/PLAN: Candidal intertrigo: Ordered nystatin powder topical apply to under the breast and all the involved areas including groin and abdominal folds Slow transit constipation: Continue senna-docusate 2 tablets by mouth at bedtime daily Mixed hyperlipidemia: Start atorvastatin 10 mg by mouth at bedtime daily Depression: On mirtazapine 7.5 mg by mouth (more content not included)... [facility]01-29-2025 NotePsychiatry Service Progress Note Identifying Data Patient Name: Donnie Bullock MRN / CSN: [id number] Date of / Age: 6 1955 / 68 y.o. / female Encounter Date: 06/14/24 Diagnosis: Dementia with Lewy Bodies, Associated REM Sleep behavioral disorder Summary Health care surrogate: Vimal Bullock ([phone]) Mrs. Bullock's cognitive decline started in April,. The patient had COVID-19 in April,, she was never hospitalized and/or in the ICU. She was initially getting lost in familiar areas and forgetting words. Then in April, she wandered out of her home barefoot and only wearing a nightgown, during the night. A week after that first incident, she started telling her that he was not her and that there was another Vimal in the home that that does their dishes and laundry. The patient then started saying that there was a lady living with them. She was seen by Dr. Judy Chino, a psychologist in [place]. She then, approximately 1 year ago, began seeing neurology (Dr. Ambrose at [facility]). She also presented to the [facility] for a second opinion in April, (MOCA score at that time was 17/30). The patient previously received services through [facility], this care was reported to be for her major neurocognitive disorder. This week the patient was experiencing worsening hallucinations. On Wednesday (06/05/2024) she reported that she killed her 4 kids and grandchildren. She stated she had their head in bags. The next day (06/06/2024) she was increasingly paranoid and told her that the network professional was coming to take her away and she was packing. She experiences visual hallucinations every day, intermittently. In particular, Mrs. Bullock sees babies suffocating and people living in her house. She also reports seeing dogs as well as squirrels on her husbands shoulder when they watch TV together. Furthermore, patient states when she was hospitalized at [facility] for (depressive symptoms) she saw ribbons in the hospital. She denies auditory hallucinations. Per chart review and history provided today there is also concern for capgras delusions, in the past patient has stated to Mr. Bullock you look like my Vimal, but you are not him. The patient does not become verbally and/or physically aggressive. She is exit seeking and left her house once in recent times. The patient exhibits signs and symptoms of worsening anxiety in recent times. She becomes very restless when anxious and paces around her home. The patient reports she is afraid when she feels lost. She struggles with recent and remote memory. Her memory, attention and concentration fluctuates. Mrs. Bullock has struggled with constipation her entire life. Patient is described as slurring her words at times and having word finding difficulty. No aphasia. Mrs. Bullock experienced worsening rigidity and attends physical therapy 2 times a week. She has an unsteady, shuffling gait with decreased arm swinging. She has orthostatic hypotension. She does not have trouble falling asleep. She is awake 7-8 times during the night, to use the restroom. She has vivid dreams. No dream re-enactment. No physical aggression and/or sleep walking during the night. Patient dresses self and showers self. Once a week daughter in law helps her bathe. (Vimal) does the cooking and cleaning, laundry, finances and medication management. She does not drive (stopped driving in April,). The patient was ambulating with a cane and then did not want to use it anymore. Now she walks for 10 mins at a time on her own. No recent falls. No head trauma. She is able to feed self and usually toilets by self (she was incontinent in the past). Patient/Collateral reports that the patient has low mood, hopelessness, helplessness, anhedonia, hypersomnolence throughout the day and decreased energy. She does not engage in any of her previous hobbies. She is isolated and does not want to go out with friends. She feels she is a burden to her family. No suicidal ideation, plan and intent. No homicidal ideation, plan and intent. Current Home Medications and Schedule: 8 am- Senna 2 tablets and Hydroxyzine 25 mg 6 PM- Haloperidol 0.5 mg 8 PM- Senna 2 tablets, mirtazapine 7.5 mg and hydroxyzine 25 mg PRN medications: Diazepam 2 mg QID PRN for anxiety Previous medications: - Donepezil 5 mg, family discontinued at the end of April, due to worsening hallucinations - Alprazolam for anxiety - Risperidone, family does not recall the patient taking this medication - Melatonin for possible REM sleep behavior disorder, reported to worsen hallucinations Psychiatric course: 06/13: Increased Seroquel 12.5 mg to 25 mg TID. Discontinued Mirtazapine 7.5 mg. Started additional Seroquel 50 mg nightly. 06/14: Discontinued Rivastigmine 4.6m (more content not included)...[facility]01-28-2025 NoteProblem: Agitation Goal: LTG-Sleeps through the night Outcome: Not Progressing Problem: Anxiety Goal: LTG-Decrease worry of fearful thoughts and/or behaviors Outcome: Not Progressing Problem: Confusion Goal: LTG-Interact appropriately within social settings Outcome: Not [facility]ing[facility] PROGRESS NOTE PATIENT: Donnie A Elder, SEX: female, : 1955 SUBJECTIVE Patient evaluated in a chair by the table in the dayroom eating breakfast, in no acute distress. Resident seen for a follow up/med management for neurocognitive disorder with Lewy bodies, generalized anxiety disorder, paroxysmal supraventricular tachycardia, constipation, and COVID-19 in April 2023; 68 years old female directly admitted to [facility] head from home on 06/09/2024 for management of worsening visual hallucinations. No nursing or resident concerns besides redness under her breasts nursing report, tolerating meds, no recent falls Denies CP, SOB, n/v/d/c Objective Patient Vitals for the past 24 hrs: BP Temp Temp src Pulse Resp SpO2 06/13/24 0642 124/64 36.5 ???C (97.7 ???F) -- 79 -- 99 % 06/12/24 1900 119/57 36.5 ???C (97.7 ???F) Temporal 83 12 98 % Physical Exam Constitutional: Appearance: Normal appearance. Comments: In a chair HENT: Head: Normocephalic and atraumatic. Right Ear: External ear normal. Left Ear: External ear normal. Nose: Nose normal. Mouth/Throat: Mouth: Mucous membranes are moist. Eyes: Extraocular Movements: Extraocular movements intact. Pupils: Pupils are equal, round, and reactive to light. Cardiovascular: Rate and Rhythm: Normal rate and regular rhythm. Pulses: Normal pulses. Heart sounds: Normal heart sounds. Pulmonary: Effort: Pulmonary effort is normal. Breath sounds: Normal breath sounds. Abdominal: General: Bowel sounds are normal. Palpations: Abdomen is soft. Musculoskeletal: General: Normal range of motion. Cervical back: Normal range of motion. Skin: General: Skin is warm and dry. Neurological: General: No focal deficit present. Mental Status: She is alert. Psychiatric: Mood and Affect: Mood normal. Comments: Verbal Lab Results Component Value Date NA 140 06/10/2024 K 4.2 06/10/2024 CL 106 06/10/2024 ANIONGAP 14 06/10/2024 BUN 12 06/10/2024 CREATININE 0.69 06/10/2024 CALCIUM 9.4 06/10/2024 Lab Results Component Value Date BILITOT 0.5 06/10/2024 ALKPHOS 44 06/10/2024 AST 17 06/10/2024 ALT 15 06/10/2024 PROT 6.5 06/10/2024 ALBUMIN 3.9 06/10/2024 Lab Results Component Value Date WBC 4.74 06/12/2024 RBC 4.39 06/12/2024 HGB 13.1 06/12/2024 HCT 40.1 06/12/2024 MCV 91.3 06/12/2024 MCH 29.8 06/12/2024 MCHC 32.7 06/12/2024 RDW 12.3 06/12/2024 NEUTOPHILPCT 43.7 06/12/2024 LYMPHOPCT 46.2 (H) 06/12/2024 MONOPCT 7.6 06/12/2024 EOSPCT 1.7 06/12/2024 BASOPCT 0.6 06/12/2024 NEUTROABS 2.07 06/12/2024 LYMPHSABS 2.19 06/12/2024 MONOSABS 0.36 06/12/2024 EOSABS 0.08 06/12/2024 BASOSABS 0.03 06/12/2024 PLT 255 06/12/2024 NRBC 0.0 06/12/2024 No results found for this or any previous visit from the past 1 day. Principal Problem: Neurocognitive disorder with Lewy bodies (CMS/HCC) Active Problems: Slow transit constipation Visual hallucinations Paroxysmal supraventricular tachycardia (CMS/HCC) Personal history of COVID-19 Patient Active Problem List Diagnosis Date Noted Neurocognitive disorder with Lewy bodies (CMS/HCC) 06/10/2024 Slow transit constipation 06/10/2024 Visual hallucinations 06/10/2024 Paroxysmal supraventricular tachycardia (CMS/HCC) 06/10/2024 Personal history of COVID-19 06/10/2024 Current Facility-Administered Medications: acetaminophen (Tylenol) tablet 650 mg, 650 mg, oral, q6h PRN, Derrick Duckworth MD, 650 mg at 06/11/242047 atorvastatin (Lipitor) tablet 10 mg, 10 mg, oral, Nightly, Du Mcmillan MD, 10 mg at 06/12/242004 melatonin tablet 12 mg, 12 mg, oral, Nightly, Irma Greco DO, 12 mg at 06/12/242004 mirtazapine (Remeron) tablet 7.5 mg, 7.5 mg, oral, Nightly, Mily Juarez MD, 7.5 mg at 06/12/242004 nystatin (Mycostatin) 100,000 unit/gram powder, , Topical, BID, Du Mcmillan MD OLANZapine (ZyPREXA) injection 2.5 mg, 2.5 mg, intramuscular, BID PRN, Mily Juarez MD QUEtiapine (SEROquel) split tablet 12.5 mg, 12.5 mg, oral, TID with meals, Irma Greco DO, 12.5 mg at 06/12/24 1731 QUEtiapine (SEROquel) tablet 25 mg, 25 mg, oral, TID PRN, Mily Juarez MD rivastigmine (Exelon) 4.6 mg/24 hour 1 patch, 1 patch, transdermal, Daily, Irma Greco DO, 1 patch at 06/12/24 0848 sennosides-docusate sodium (Kriss-Colace) 8.6-50 mg per tablet 2 tablet, 2 tablet, oral, Nightly, Du Mcmillan MD, 2 tablet at 06/12/242004 ASSESSMENT/PLAN: Candidal intertrigo: Ordered nystatin powder topical apply to under the breast and all the involved areas including groin and abdominal folds Slow transit constipation: Continue senna-docusate 2 tablets by mouth at bedtime daily Mixed hyperlipidemia: Start atorvastatin 10 mg by mouth at bedtime daily Depression: On mirtazapine 7.5 mg by mouth at bedtime daily Major Neurocognitive Disorder with Lewy bodies: On olanzapine and quetiapine as (more content not included)...[facility]01-28-2025 Note Psychiatry Service Progress Note Identifying Data Patient Name: Donnie Bullock MRN / CSN: [id number] Date of / Age: 6 1955 / 68 y.o. / female Encounter Date: 06/13/24 Diagnosis: Dementia with Lewy Bodies, Associated REM Sleep behavioral disorder Summary Health care surrogate: Vimal Bullock ([phone]) Mrs. Bullock's cognitive decline started in April,. The patient had COVID-19 in April,, she was never hospitalized and/or in the ICU. She was initially getting lost in familiar areas and forgetting words. Then in April, she wandered out of her home barefoot and only wearing a nightgown, during the night. A week after that first incident, she started telling her that he was not her and that there was another Vimal in the home that that does their dishes and laundry. The patient then started saying that there was a lady living with them. She was seen by Dr. Judy Chino, a psychologist in [place]. She then, approximately 1 year ago, began seeing neurology (Dr. Ambrose at [facility]). She also presented to the [facility] for a second opinion in April, (MOCA score at that time was 17/30). The patient previously received services through [facility], this care was reported to be for her major neurocognitive disorder. This week the patient was experiencing worsening hallucinations. On Wednesday (06/05/2024) she reported that she killed her 4 kids and grandchildren. She stated she had their head in bags. The next day (06/06/2024) she was increasingly paranoid and told her that the network professional was coming to take her away and she was packing. She experiences visual hallucinations every day, intermittently. In particular, Mrs. Bullock sees babies suffocating and people living in her house. She also reports seeing dogs as well as squirrels on her husbands shoulder when they watch TV together. Furthermore, patient states when she was hospitalized at [facility] for (depressive symptoms) she saw ribbons in the hospital. She denies auditory hallucinations. Per chart review and history provided today there is also concern for capgras delusions, in the past patient has stated to Mr. Bullock you look like my Vimal, but you are not him. The patient does not become verbally and/or physically aggressive. She is exit seeking and left her house once in recent times. The patient exhibits signs and symptoms of worsening anxiety in recent times. She becomes very restless when anxious and paces around her home. The patient reports she is afraid when she feels lost. She struggles with recent and remote memory. Her memory, attention and concentration fluctuates. Mrs. Bullock has struggled with constipation her entire life. Patient is described as slurring her words at times and having word finding difficulty. No aphasia. Mrs. Bullock experienced worsening rigidity and attends physical therapy 2 times a week. She has an unsteady, shuffling gait with decreased arm swinging. She has orthostatic hypotension. She does not have trouble falling asleep. She is awake 7-8 times during the night, to use the restroom. She has vivid dreams. No dream re-enactment. No physical aggression and/or sleep walking during the night. Patient dresses self and showers self. Once a week daughter in law helps her bathe. (Vimal) does the cooking and cleaning, laundry, finances and medication management. She does not drive (stopped driving in April,). The patient was ambulating with a cane and then did not want to use it anymore. Now she walks for 10 mins at a time on her own. No recent falls. No head trauma. She is able to feed self and usually toilets by self (she was incontinent in the past). Patient/Collateral reports that the patient has low mood, hopelessness, helplessness, anhedonia, hypersomnolence throughout the day and decreased energy. She does not engage in any of her previous hobbies. She is isolated and does not want to go out with friends. She feels she is a burden to her family. No suicidal ideation, plan and intent. No homicidal ideation, plan and intent. Current Home Medications and Schedule: 8 am- Senna 2 tablets and Hydroxyzine 25 mg 6 PM- Haloperidol 0.5 mg 8 PM- Senna 2 tablets, mirtazapine 7.5 mg and hydroxyzine 25 mg PRN medications: Diazepam 2 mg QID PRN for anxiety Previous medications: - Donepezil 5 mg, family discontinued at the end of April, due to worsening hallucinations - Alprazolam for anxiety - Risperidone, family does not recall the patient taking this medication - Melatonin for possible REM sleep behavior disorder, reported to worsen hallucinations Psychiatric course: 06/13: Increased Seroquel 12.5 mg to 25 mg TID. Discontinued Mirtazapine 7.5 mg. Started additional Seroquel 50 mg nightly. Subjective Overnight Events: She (more content not included)...[facility]01-27-2025 NoteTreatment Review Per report, pt rated her anxiety a 5 and her depression a 4. Pt denied having visual hallucinations of ribbons. Pt told RN that there was a fire truck in her room dressed as a bumble bee. Discharge plan: [facility]01-27-2025 NotePsychiatry Service Progress Note Identifying Data Patient Name: Donnie Bullock MRN / CSN: [id number] Date of / Age: 6 1955 / 68 y.o. / female Encounter Date: 06/12/24 Diagnosis: Dementia with Lewy Bodies, Associated REM Sleep behavioral disorder Summary Health care surrogate: Vimal Bullock ([phone]) Mrs. Bullock's cognitive decline started in April,. The patient had COVID-19 in April,, she was never hospitalized and/or in the ICU. She was initially getting lost in familiar areas and forgetting words. Then in April, she wandered out of her home barefoot and only wearing a nightgown, during the night. A week after that first incident, she started telling her that he was not her and that there was another Vimal in the home that that does their dishes and laundry. The patient then started saying that there was a lady living with them. She was seen by Dr. Judy Chino, a psychologist in [place]. She then, approximately 1 year ago, began seeing neurology (Dr. Ambrose at [facility]). She also presented to the [facility] for a second opinion in April, (MOCA score at that time was 17/30). The patient previously received services through [facility], this care was reported to be for her major neurocognitive disorder. This week the patient was experiencing worsening hallucinations. On Wednesday (06/05/2024) she reported that she killed her 4 kids and grandchildren. She stated she had their head in bags. The next day (06/06/2024) she was increasingly paranoid and told her that the network professional was coming to take her away and she was packing. She experiences visual hallucinations every day, intermittently. In particular, Mrs. Bullock sees babies suffocating and people living in her house. She also reports seeing dogs as well as squirrels on her husbands shoulder when they watch TV together. Furthermore, patient states when she was hospitalized at [facility] for (depressive symptoms) she saw ribbons in the hospital. She denies auditory hallucinations. Per chart review and history provided today there is also concern for capgras delusions, in the past patient has stated to Mr. Bullock you look like my Vimal, but you are not him. The patient does not become verbally and/or physically aggressive. She is exit seeking and left her house once in recent times. The patient exhibits signs and symptoms of worsening anxiety in recent times. She becomes very restless when anxious and paces around her home. The patient reports she is afraid when she feels lost. She struggles with recent and remote memory. Her memory, attention and concentration fluctuates. Mrs. Bullock has struggled with constipation her entire life. Patient is described as slurring her words at times and having word finding difficulty. No aphasia. Mrs. Bullock experienced worsening rigidity and attends physical therapy 2 times a week. She has an unsteady, shuffling gait with decreased arm swinging. She has orthostatic hypotension. She does not have trouble falling asleep. She is awake 7-8 times during the night, to use the restroom. She has vivid dreams. No dream re-enactment. No physical aggression and/or sleep walking during the night. Patient dresses self and showers self. Once a week daughter in law helps her bathe. (Vimal) does the cooking and cleaning, laundry, finances and medication management. She does not drive (stopped driving in April,). The patient was ambulating with a cane and then did not want to use it anymore. Now she walks for 10 mins at a time on her own. No recent falls. No head trauma. She is able to feed self and usually toilets by self (she was incontinent in the past). Patient/Collateral reports that the patient has low mood, hopelessness, helplessness, anhedonia, hypersomnolence throughout the day and decreased energy. She does not engage in any of her previous hobbies. She is isolated and does not want to go out with friends. She feels she is a burden to her family. No suicidal ideation, plan and intent. No homicidal ideation, plan and intent. Current Home Medications and Schedule: 8 am- Senna 2 tablets and Hydroxyzine 25 mg 6 PM- Haloperidol 0.5 mg 8 PM- Senna 2 tablets, mirtazapine 7.5 mg and hydroxyzine 25 mg PRN medications: Diazepam 2 mg QID PRN for anxiety Previous medications: - Donepezil 5 mg, family discontinued at the end of April, due to worsening hallucinations - Alprazolam for anxiety - Risperidone, family does not recall the patient taking this medication - Melatonin for possible REM sleep behavior disorder, reported to worsen hallucinations Subjective Overnight Events: Patient slept for about 6 hours. She says she was seeing ribbons out the corner of her eyes last night and was observed wandering around the unit at t (more content not included)...[facility]01-27-2025 Note PROGRESS NOTE PATIENT: Donnie Bullock, SEX: female, : 1955 SUBJECTIVE Patient evaluated while sitting by the edge of the bed in her room wrapped up in blanket, in no acute distress. Resident seen for a follow up/med management for neurocognitive disorder with Lewy bodies, generalized anxiety disorder, paroxysmal supraventricular tachycardia, constipation, and COVID-19 in April 2023; 68 years old female directly admitted to [facility] head from home on 06/09/2024 for management of worsening visual hallucinations. No nursing or resident concerns besides not up for breakfast yet, states not hungry, tolerating meds, no recent falls Denies CP, SOB, n/v/d/c Objective Patient Vitals for the past 24 hrs: BP Temp Temp src Pulse Resp SpO2 06/12/24 0704 117/58 36.5 ???C (97.7 ???F) -- 73 16 99 % 06/11/24 1900 114/63 36.6 ???C (97.9 ???F) Temporal 88 14 97 % Physical Exam Constitutional: Appearance: Normal appearance. Comments: In bed HENT: Head: Normocephalic and atraumatic. Right Ear: External ear normal. Left Ear: External ear normal. Nose: Nose normal. Mouth/Throat: Mouth: Mucous membranes are moist. Eyes: Extraocular Movements: Extraocular movements intact. Pupils: Pupils are equal, round, and reactive to light. Cardiovascular: Rate and Rhythm: Normal rate and regular rhythm. Pulses: Normal pulses. Heart sounds: Normal heart sounds. Pulmonary: Effort: Pulmonary effort is normal. Breath sounds: Normal breath sounds. Abdominal: General: Bowel sounds are normal. Palpations: Abdomen is soft. Musculoskeletal: General: Normal range of motion. Cervical back: Normal range of motion. Skin: General: Skin is warm and dry. Neurological: General: No focal deficit present. Mental Status: She is alert. Psychiatric: Mood and Affect: Mood normal. Comments: Verbal Lab Results Component Value Date NA 140 06/10/2024 K 4.2 06/10/2024 CL 106 06/10/2024 ANIONGAP 14 06/10/2024 BUN 12 06/10/2024 CREATININE 0.69 06/10/2024 CALCIUM 9.4 06/10/2024 Lab Results Component Value Date BILITOT 0.5 06/10/2024 ALKPHOS 44 06/10/2024 AST 17 06/10/2024 ALT 15 06/10/2024 PROT 6.5 06/10/2024 ALBUMIN 3.9 06/10/2024 No results found for: WBC , ADJUSTEDWBC , RBC , HGB , HCT , MCV , MCH , MCHC , RDW , MPV , NEUTOPHILPCT , LYMPHOPCT , MONOPCT , EOSPCT , BASOPCT , NEUTROABS , LYMPHSABS , MONOSABS , EOSABS , BASOSABS , PLT , NRBC No results found for this or any previous visit from the past 1 day. Principal Problem: Neurocognitive disorder with Lewy bodies (CMS/HCC) Active Problems: Slow transit constipation Visual hallucinations Paroxysmal supraventricular tachycardia (CMS/HCC) Personal history of COVID-19 Patient Active Problem List Diagnosis Date Noted Neurocognitive disorder with Lewy bodies (CMS/HCC) 06/10/2024 Slow transit constipation 06/10/2024 Visual hallucinations 06/10/2024 Paroxysmal supraventricular tachycardia (CMS/HCC) 06/10/2024 Personal history of COVID-19 06/10/2024 Current Facility-Administered Medications: acetaminophen (Tylenol) tablet 650 mg, 650 mg, oral, q6h PRN, Derrick Duckworth MD, 650 mg at 06/11/242047 atorvastatin (Lipitor) tablet 10 mg, 10 mg, oral, Nightly, Du Iwuagwu, MD, 10 mg at 06/11/242049 melatonin tablet 12 mg, 12 mg, oral, Nightly, Irma Greco DO, 12 mg at 06/11/242049 mirtazapine (Remeron) tablet 7.5 mg, 7.5 mg, oral, Nightly, Mily Juarez MD, 7.5 mg at 06/11/242048 OLANZapine (ZyPREXA) injection 2.5 mg, 2.5 mg, intramuscular, BID PRN, Mily Juarez MD QUEtiapine (SEROquel) tablet 25 mg, 25 mg, oral, TID PRN, Mily Juarez MD rivastigmine (Exelon) 4.6 mg/24 hour 1 patch, 1 patch, transdermal, Daily, Irma Greco DO, 1 patch at 06/11/24 131 sennosides-docusate sodium (Kriss-Colace) 8.6-50 mg per tablet 2 tablet, 2 tablet, oral, Nightly, Du Mcmillan MD, 2 tablet at 06/11/242048 ASSESSMENT/PLAN: Slow transit constipation: Continue senna-docusate 2 tablets by mouth at bedtime daily Mixed hyperlipidemia: Start atorvastatin 10 mg by mouth at bedtime daily Depression: On mirtazapine 7.5 mg by mouth at bedtime daily Major Neurocognitive Disorder with Lewy bodies: On olanzapine and quetiapine as needed, psych manage Du Mcmillan MD 06/12/2024[facility]01-26-2025 NotePsychiatry Service Progress Note Identifying Data Patient Name: Donnie Bullock MRN / CSN: [id number] Date of / Age: 6 1955 / 68 y.o. / female Encounter Date: 06/11/24 Diagnosis: Summary Psychiatric Course: 06/09 - patient admitted. 06/10 - stop nightime diazepam to minimize cognitive burden 06/11 - begin rivastigmine 4.6mg patch and melatonin 12mg at bedtime for lewy body dementia and comorbid rem sleep behaviors Subjective Overnight Events: Patient slept for 5 hours. She was noted to wake up in the middle of the night and staring into a wall in the corner of her room. Staff noted that the patient's seemed to sundown for p.m. onwards the previous day and became more confused. PRN Medications: None overnight Patient: Patient was seen this morning to the side of the unit milieu after breakfast. She reported she felt a little bit more down and depressed today as it seems her has higher hope in her improving in her symptoms compared to how she views herself. Supportive psychotherapy provided. The patient eventually became hopeful about medication adjustments. When I reviewed with her the events of last night as reported by nursing staff, she did not seem to have recall of the event however did endorse to me past sleep walking. We reviewed the benefit of rivastigmine as well as high dose melatonin and treatment of dementia with Lewy bodies. Reviewed side effects risks and benefits and patient was agreeable however verbalized that she will need to let her know as well. She denies any somatic complaints at this time. Does not report any changes to stiffness or mobility. Medications & Allergies Scheduled Medications atorvastatin, 10 mg, oral, Nightly melatonin, 12 mg, oral, Nightly mirtazapine, 7.5 mg, oral, Nightly rivastigmine, 1 patch, transdermal, Daily sennosides-docusate sodium, 2 tablet, oral, Nightly PRN Medications OLANZapine, 2.5 mg, BID PRN QUEtiapine, 25 mg, TID PRN Allergies No Known Allergies Objective Mental Status Exam Appearance: age appropriate and casually dressed Behavior: normal Speech: Low in rate, soft, mumbled at times Mood: dysthymic Affect: Flat and mask like with limited range of expression Thought Process: Linear but brief and paused at times Thought Content: No endorsed delusional content at this time, no reported psychotic symptoms, while she endorses depression she does not endorse suicidal nor homicidal ideation, intent, or plan. Sensorium: person, place, time/date, and situation Cognition: Mild impairment at this time but fluctuant due to nature of illness Insight: superficial Judgment: limited Patient Vitals for the past 24 hrs: BP Temp Temp src Pulse Resp SpO2 06/11/24 0642 105/59 36.2 ???C (97.2 ???F) -- 67 16 98 % 06/10/24 1835 126/68 36.2 ???C (97.2 ???F) Tympanic 81 16 100 % No results found for: WBC , HCT , HGB , PLT Lab Results Component Value Date NA 140 06/10/2024 K 4.2 06/10/2024 CL 106 06/10/2024 BUN 12 06/10/2024 CREATININE 0.69 06/10/2024 CALCIUM 9.4 06/10/2024 AST 17 06/10/2024 ALT 15 06/10/2024 PROT 6.5 06/10/2024 ALBUMIN 3.9 06/10/2024 No results found for: TSH , VITD25 , FOLATE , KPIHSVLI59 Lab Results Component Value Date LDL 160 06/10/2024 HDL 70 06/10/2024 CHOLHDLRATIO 3.3 06/10/2024 TRIG 79 06/10/2024 Assessment and Plan Code Status: Full Code. Assessment Dementia with Lewy Bodies Associated REM Sleep behavioral disorder Plan Begin Rivastigmine 4.6mg per 24 hour patch for dementia Patient has not tolerated donepezil before Begin Melatonin 12mg at bedtime for rem sleep behavior Continue Mirtazapine 7.5mg nightly for mood, sleep, and appetite Encourage participation in therapeutic unit milieu. Signature Irma Greco, DO 06/11/2024 1:16 PM [facility] Note PROGRESS NOTE PATIENT: Donnie Bullock, SEX: female, : 1955 SUBJECTIVE Patient evaluated in a chair by the table in the dayroom just done eating breakfast, in no acute distress. Resident seen for a follow up/med management for neurocognitive disorder with Lewy bodies, generalized anxiety disorder, paroxysmal supraventricular tachycardia, constipation, and COVID-19 in April 2023; 68 years old female directly admitted to [facility] from home on 06/09/2024 for management of worsening visual hallucinations. No nursing or resident concerns, had good bowel movement with Dulcolax yesterday, tolerating meds, no recent falls Denies CP, SOB, n/v/d/c Objective Patient Vitals for the past 24 hrs: BP Temp Temp src Pulse Resp SpO2 06/11/24 0642 105/59 36.2 ???C (97.2 ???F) -- 67 16 98 % 06/10/24 1835 126/68 36.2 ???C (97.2 ???F) Tympanic 81 16 100 % Physical Exam Constitutional: Appearance: Normal appearance. Comments: In a chair for HENT: Head: Normocephalic and atraumatic. Right Ear: External ear normal. Left Ear: External ear normal. Nose: Nose normal. Mouth/Throat: Mouth: Mucous membranes are moist. Eyes: Extraocular Movements: Extraocular movements intact. Pupils: Pupils are equal, round, and reactive to light. Cardiovascular: Rate and Rhythm: Normal rate and regular rhythm. Pulses: Normal pulses. Heart sounds: Normal heart sounds. Pulmonary: Effort: Pulmonary effort is normal. Breath sounds: Normal breath sounds. Abdominal: General: Bowel sounds are normal. Palpations: Abdomen is soft. Musculoskeletal: General: Normal range of motion. Cervical back: Normal range of motion. Skin: General: Skin is warm and dry. Neurological: General: No focal deficit present. Mental Status: She is alert. Psychiatric: Mood and Affect: Mood normal. Comments: Verbal No results found for: NA , K , CL , BICARB , ANIONGAP , BUN , CREATININE , CALCIUM , MG , PHOS No results found for: BILITOT , BILIDIR , ALKPHOS , AST , ALT , PROT , ALBUMIN No results found for: WBC , ADJUSTEDWBC , RBC , HGB , HCT , MCV , MCH , MCHC , RDW , MPV , NEUTOPHILPCT , LYMPHOPCT , MONOPCT , EOSPCT , BASOPCT , NEUTROABS , LYMPHSABS , MONOSABS , EOSABS , BASOSABS , PLT , NRBC No results found for this or any previous visit from the past 1 day. Active Problems: Neurocognitive disorder with Lewy bodies (CMS/HCC) Slow transit constipation Visual hallucinations Paroxysmal supraventricular tachycardia (CMS/HCC) Personal history of COVID-19 Patient Active Problem List Diagnosis Date Noted Neurocognitive disorder with Lewy bodies (CMS/HCC) 06/10/2024 Slow transit constipation 06/10/2024 Visual hallucinations 06/10/2024 Paroxysmal supraventricular tachycardia (CMS/HCC) 06/10/2024 Personal history of COVID-19 06/10/2024 Current Facility-Administered Medications: atorvastatin (Lipitor) tablet 10 mg, 10 mg, oral, Nightly, Du Iwuagwu, MD mirtazapine (Remeron) tablet 7.5 mg, 7.5 mg, oral, Nightly, Mily Juarez MD, 7.5 mg at 06/10/242106 OLANZapine (ZyPREXA) injection 2.5 mg, 2.5 mg, intramuscular, BID PRN, Mily Juarez MD QUEtiapine (SEROquel) tablet 25 mg, 25 mg, oral, TID PRN, Mily Juarez MD sennosides-docusate sodium (Kriss-Colace) 8.6-50 mg per tablet 2 tablet, 2 tablet, oral, Nightly, Du Mcmillan MD ASSESSMENT/PLAN: Slow transit constipation: Had a good bowel movement with Dulcolax yesterday, continue senna-docusate 2 tablets by mouth at bedtime daily Mixed hyperlipidemia: Start atorvastatin 10 mg by mouth at bedtime daily Depression: On mirtazapine 7.5 mg by mouth at bedtime daily Major Neurocognitive Disorder with Lewy bodies: On olanzapine and quetiapine as needed, psych manage Du Mcmillan MD 06/11/2024[facility]01-25-2025 NoteProblem: Anxiety Goal: STG-Cooperates with evaluations from physicians/RNs Outcome: Progressing Note: Co-operative this am Problem: Confusion Goal: STG-Accepts redirection without escalation Outcome: Progressing Note: Redirected to her room patient co-operative The patient is Moderately Stable - Low risk of patient condition declining or worsening The patient's goals for the shift include know wht to do next The clinical goals for the shift include safetyUnPro[facility] Note Attestation signed by MINDY Hunt at 06/10/2024 10:24 AM I agree with the content of this note and have no current revisions. Psychosocial Narrative Summary Subject: Donnie Bullock Reason for admission: Patient is a 68 year old female who was directly admitted to the [facility] unit from home after worsening depression, anxiety, paranoia, delusions, hallucinations, and sleep disturbances. Patient has a history of rapidly progressing lewy body dementia, which was diagnosed in May 2023. In Apr 2023, patient had covid-19 and was not hospitalized, after then, patient was found wandering outside of her home, barefoot and in a nightgown in the middle of the night. Patient then started not believing that her was her and was seen by psychologist Dr. Judy Chino. Patient then saw neurologist Dr. Ambrose at [facility] and went for a second opinion at [facility]. [facility] Patient has since become isolative, not wanting to see her friends or have people at [facility] see her. Patient has recently been having worsening hallucinations, reporting that she killed her 4 kids and grandchildren and that she had their heads in bags. She also commented that the network professional was coming to take her away and that there were squirrels on her 's shoulders when they watched tv together. When [facility], she reported seeing ribbons in the hospital. Patient has also been having vivid dreams and waking up 7-8 times throughout the night. Patient has been having increased difficulty finding words, decreased energy, hopelessness, anhedonia, and 'feeling like a burden' to her family. Diagnosis and discharge plan: Major neurocognitive disorder with lewy bodies Generalized anxiety disorder Major depressive disorder Patient to return to previous living arrangement back home with and to continue to follow up with her outpatient provider, Dr. [facility]roseUnPro[facility]01-25-2025 NoteHISTORY AND PHYSICAL PATIENT: Donnie Bullock, SEX: female, : 1955 Chief Complaint: Geriatrics consulted for medical management History of Present Illness: Patient evaluated while lying down supine in bed in her room, in no acute distress. 68 years old female directly admitted to [facility] [employer] [facility] from home on 06/09/2024 for management of worsening visual hallucinations; history of neurocognitive disorder with Lewy bodies, generalized anxiety disorder, paroxysmal supraventricular tachycardia and COVID-19 in April 2023. She reports constipation, no bowel movement in 5 days, used to be on lactulose twice daily. She otherwise denies chest pain, shortness of breath or bladder problem. No further issues reported reported to nursing staff. We are consulted for medical management. Past Medical History: Diagnosis Date Neurocognitive disorder with Lewy bodies (CMS/HCC) Paroxysmal supraventricular tachycardia (CMS/HCC) Personal history of COVID-19 Slow transit constipation Visual hallucinations History reviewed. No pertinent surgical history. No family history on file. Social History Socioeconomic History Marital status: Spouse name: None Number of children: None Years of education: None Highest education level: None Occupational History None Tobacco Use Smoking status: Never Smokeless tobacco: Never Substance and Sexual Activity Alcohol use: None Drug use: None Sexual activity: None Other Topics Concern None Social History Narrative None Social Determinants of Health Financial Resource Strain: Low Risk (06/10/2024) Overall Financial Resource Strain (CARDIA) Difficulty of Paying Living Expenses: Not hard at all Food Insecurity: No Food Insecurity (06/10/2024) Hunger Vital Sign Worried About Running Out of Food in the Last Year: Never true Ran Out of Food in the Last Year: Never true Transportation Needs: No Transportation Needs (06/10/2024) Transportation Lack of Transportation (Medical): No Lack of Transportation (Non-Medical): No Physical Activity: Patient Declined (06/10/2024) Exercise Vital Sign Days of Exercise per Week: Patient declined Minutes of Exercise per Session: Patient declined Stress: Stress Concern Present (06/10/2024) [place] [employer] - Occupational Stress Questionnaire Feeling of Stress : To some extent Social Connections: Moderately Integrated (06/10/2024) Social Connection and Isolation Panel [NHANES] Frequency of Communication with Friends and Family: Twice a week Frequency of Social Gatherings with Friends and Family: Three times a week Attends Sabianism Services: More than 4 times per year Active Member of Clubs or Organizations: No Attends Club or Organization Meetings: Not on file Marital Status: Intimate Partner Violence: Not At Risk (06/10/2024) Humiliation, Afraid, Rape, and Kick questionnaire Fear of Current or Ex-Partner: No Emotionally Abused: No Physically Abused: No Sexually Abused: No Housing Stability: Low Risk (06/10/2024) Housing Stability Vital Sign Unable to Pay for Housing in the Last Year: No Number of Times Moved in the Last Year: 0 Homeless in the Last Year: No No Known Allergies Review of Systems Constitutional: Negative for fatigue and fever. HENT: Negative for congestion, dental problem, hearing loss and sneezing. Eyes: Negative for discharge. Respiratory: Negative for cough, chest tightness, shortness of breath and wheezing. Cardiovascular: Negative for chest pain, palpitations and leg swelling. Gastrointestinal: Negative for abdominal pain, diarrhea, nausea and vomiting. Endocrine: Negative for polyphagia. Genitourinary: Negative for difficulty urinating, frequency and hematuria. Musculoskeletal: Negative for arthralgias, back pain, gait problem, neck pain and neck stiffness. Skin: Negative for rash. Neurological: Negative for dizziness, seizures, speech difficulty and weakness. Psychiatric/Behavioral: Negative for confusion, hallucinations and sleep disturbance. Vitals: 06/10/24 0734 BP: 120/55 Pulse: 76 Resp: Temp: SpO2: 99% Physical Exam Constitutional: Appearance: Normal appearance. HENT: Head: Normocephalic and atraumatic. Right Ear: External ear normal. Left Ear: External ear normal. Nose: Nose normal. Mouth/Throat: Mouth: Mucous membranes are moist. Eyes: Extraocular Movements: Extraocular movements intact. Pupils: Pupils are equal, round, and reactive to light. Cardiovascular: Rate and Rhythm: Normal rate and regular rhythm. Pulses: Normal pulses. Heart sounds: Normal heart sounds. Pulmonary: Effort: Pulmonary effort is normal. Breath sounds: Normal breath sounds. Abdominal: General: Bowel sounds are normal. Palpations: Abdomen is soft. (more content not included)...[facility]01-13-2025 Telephone encounter Note* Telephone Encounter - Ivette Kerr RN - 05/29/2024 5:01 PM EST Noted. Ivette Kerr RN [facility] Work Phone: 1(717) 311-618501-13-2025 Miscellaneous Notes* Telephone Encounter - Ivette Kerr RN - 05/29/2024 5:01 PM EST Noted. Ivette Kerr RN documented in [facility] encounterW[facility]01-13-2025 Telephone encounter Note * Telephone Encounter - Ivette Kerr RN - 05/29/2024 1:38 PM EST Spoke with Vimal, the patient's . Donnie [...] brain disc will be picked tomorrow from [employer] and Vimal will mail it to Sera Killian APRN, [employer]. - Vimal was advised to keep our office updated. Ivette Kerr RN [facility] Work Phone: [phone]) 608-109001-13-2025 Miscellaneous Notes* Telephone Encounter - Ivette Kerr RN - 05/29/2024 1:38 PM EST Spoke with Vimal, the patient's . Donnie [...] brain disc will be picked tomorrow from [facility] and Vimal will mail it to Sera Killian APRN, CNP. - Vimal was advised to keep our office updated. Ivette Kerr RN * Telephone Encounter - Rose Baldwin - 05/29/2024 12:04 PM EST Spouse, Vimal LVM on [facility] Nurse Line on 05/26 @2:07P. Pt name and verified 1955. Vimal states pt is shaking bad and really anxious. Please call back at . Thank you, Rose * Telephone Encounter - Sera Killian APRN.CNP - 05/26/2024 6:30 PM EST Call to spouse he states her VH are worse, she recently saw the devil . He found her walking around with a piece of paper stating she wanted to live . She denied to him she wanted to . She is never alone He notes she has tremors and said he considered taking her to the ED. She had UA, awaitingculture. He finds her anxious. She continues the slow taper of Haldol and takes 0.5 mg at HS. I requested he provide me with the MRI brain disc. She is to see her local Neurologist on Wednesday05/29/24.Will follow up next week. Sera Killian APRN.ELIANE documented in this encounterW[facility]01-13-2025 Telephone encounter Note * Telephone Encounter - Rose Baldwin - 05/29/2024 12:04 PM EST Spouse, Vimal SANDERS on [facility] Nurse Line on 05/26 @2:07P. Pt name and verified 1955. Vimal states pt is shaking bad and really anxious. Please call back at . Thank you, Rose [facility]01-13-2025 History of Present illness Narrative* Rei oCbos DO - 05/29/2024 8:45 AM EST Images from the original note were not included. Chief Complaint: Dementia Subjective Donnie Richardson Elder, 68 y.o., female Patient presents today for a follow up for rapidly progressive dementia. She is accompanied by her and son. states they got a second opinion at [facility]. She was started on donepezil 5 mg.He states this is not working well for [...] She states she went for a walk. Patientsates this has been very difficult for her because she really likes to go for walks and she is not a ble to on her own anymore. Her sleep [...] chronic DDD (degenerative disc disease), cervical Dementia ([facility]) Depression ([facility]) May 25 Dyslipidemia ([facility]) DALILA (generalized anxiety disorder) ([facility]) Gastroesophageal reflux disease Impaired fasting glucose Lewy body dementia ([facility]) Loss of balance Low back pain, non-specific Olecranon bursitis, right elbow Orthostatic hypotension Osteopenia of lumbar spine Parkinson's disease ([facility]/HCC) 2023 PSVT (paroxysmal supraventricular tachycardia) ([facility]) Skin cancer Vertigo Past Surgical History: Procedure Laterality Date CARPAL TUNNEL RELEASE Left 06/15/2014 MTP CARPAL TUNNEL RELEASE Right 06/29/2014 MTP DILATION AND CURETTAGE OF UTERUS 2004 EYE SURGERY HYSTERECTOMY 2007 [place] REMOVE TONSILS/ADENOIDS,12+ Y/O 1959 Family History Problem Relation Name Age of Onset Cancer Mother Ayla Jonas Arthritis Mother Ayla Jonas Hypertension Father Carlos Jonas Cancer Father Carlos Jonas Heart disease Sibling Arthritis Maternal Grandmother Dayna Arambula Social History Tobacco Use Smoking status: Never [...] reflexes are 2+ and symmetric throughout. Coordination: Dycbfa-jj-[id number] testing and rapid alternating movements are normal Gait: Normal Review and summary of old records: Patient was seen at [facility] for altered mental status at the [...] that tube there were approximately 50 white bloodcells and in the following 2 there were [...] She has not able to participate with [place] cognitive assessment. Routine EEG was unremarkable. Neuropsych assessment is suggestive of probable Lewy body dementia. Lumbar puncture did not reveal any evidence of malignant cells. Autoimmune encephalitis panel did not yield any abnormalities. CJD panel is negative. Overall, now that she is having more shuffling of her gait, more clear visual hallucinations and the dementia process I believe overall the picture is declaringitself to be that of Lewy body dementia. Patient did have a visit with [facility] and they had recommended coming off of [...] this patient was seen in the inpatient settingand was placed on Haldol. However, patient really [...] of mental health issues documented in this encounterSouthPointe [id number] Telephone encounter Note* Telephone Encounter - Sera Killian APRN.CNP - 05/26/2024 6:30 PM EST Call to spouse he states her VH are worse, she recently saw the devil . He found her walking around with a piece of paper stating she wanted to live . She denied to him she wanted to . She is never alone He notes she has tremors and said he considered taking her to the ED. She had UA, awaitingculture. He finds her anxious. She continues the slow taper of Haldol and takes 0.5 mg at HS. I requested he provide me with the MRI brain disc. She is to see her local Neurologist on Wednesday05/29/24.Will follow up next week. Sera Killian APRN.CNP [facility]01-06-2025 Telephone encounter Note* Telephone Encounter - Sera Killian APRN.CNP - 05/22/2024 3:09 PM EST The following approved medication requests have been transmitted electronically. Requested Prescriptions Signed Prescriptions Disp Refills donepezil (ARICEPT) 5 mg tablet 30 tablet 3 Sig: Take 1 tablet by mouth daily after breakfast. Authorizing Provider: SERA KILLIAN APRN.CNP [facility]01-06-2025 Miscellaneous Notes* Telephone Encounter - Sera Killian APRN.CNP - 05/22/2024 3:09 PM EST The following approved medication requests have been transmitted electronically. Requested Prescriptions Signed Prescriptions Disp Refills donepezil (ARICEPT) 5 mg tablet 30 tablet 3 Sig: Take 1 tablet by mouth daily after breakfast. Authorizing Provider: SERA KILLIAN APRN.CNP documented in this encounterWooster [facility] Hospital01-06-2025 Telephone encounter Note * Telephone Encounter - Sera Killian APRN.CNP - 05/22/2024 2:09 PM EST OG call to spouse, discussion held. We agreed to continue the taper of Haldol as originally ordered. And add Donepezil (Aricept) 5 mg daily after breakfast. Sera Killian APRN.CNP [facility]01-06-2025 Miscellaneous Notes* Telephone Encounter - Sera Killian APRN.CNP - 05/22/2024 2:09 PM EST OG call to spouse, discussion held. We agreed to continue the taper of Haldol as originally ordered. And add Donepezil (Aricept) 5 mg daily after breakfast. Sera Killian APRN.CNP * Telephone Encounter - Ivette Kerr RN - 05/19/2024 4:33 PM EST Spoke with Vimal, the patient's . He stated that Donnie's visual hallucinations do not scare her or cause agitation. There are no safety concerns. His main concern is the increase of the frequency of the hallucinations. He will keep Donnie on the current dose of Haldol until Vernon Killian APRN, [employer] reviews and makes her recommendation. Donnie does have a follow up with local neurologist on 05/29/2024 and a follow up on 07/27/2024 with Sera. Ivette Kerr RN * Telephone Encounter - Ivette Kerr RN - 05/18/2024 4:08 PM EST Spoke with Vimal, the patient's . Currently, [...] on Vimal's cell phone. Ivette Kerr RN * Telephone Encounter - Ivette Kerr RN - 05/16/2024 1:57 PM EST Second Attempt Voice message left for Vimal that someone from our office will attempt to reach out to him on the next business day, 05/18/2024. Advised that he may send a My Chart Message. Ivette Kerr RN * Telephone Encounter - Ivette Kerr RN - 05/15/2024 5:28 PM EST Voice message left for Vimal that someone from our office will attempt to reach out to him on the next business day to address his concerns. Ivette Kerr RN * Telephone Encounter - Rose Baldwin - 05/15/2024 3:18 PM EST Spouse, Carlos LVM on [facility] Nurse Line on 05/15 @2:59P. Pt name and verified 1955. Carlos is requesting to speak with nurse re: pt symptoms. Hallucinations are getting worse. Please call back at . Thank you, Rose documented in this encounterW[facility]01-03-2025 Telephone encounter Note * Telephone Encounter - Ivette Kerr RN - 05/19/2024 4:33 PM EST Spoke with Vimal, the patient's . He stated that Donnie's visual hallucinations do not scare her or cause agitation. There are no safety concerns. His main concern is the increase of the frequency of the hallucinations. He will keep Donnie on the current dose of Haldol until Vernon Killian APRN, COFFEE SHOP AIDE reviews and makes her recommendation. Donnie does have a follow up with local neurologist on 05/29/2024 and a follow up on 07/27/2024 with Sera. Ivette Kerr RN [facility] Work Phone: [phone] Telephone encounter Note* Telephone Encounter - Ivette Kerr RN - 05/18/2024 4:08 PM EST Spoke with Vimal, the patient's . Currently, [...] on Vimal's cell phone. Ivette Kerr RN [facility]12-31-2024 Telephone encounter Note* Telephone Encounter - Ivette Kerr RN - 05/16/2024 1:57 PM EST Second Attempt Voice message left for Vimal that someone from our office will attempt to reach out to him on the next business day, 05/18/2024. Advised that he may send a PlumTV Chart Message. Ivette Kerr RN [facility]12-30-2024 Telephone encounter Note* Telephone Encounter - Ivette Kerr RN - 05/15/2024 5:28 PM EST Voice message left for Vimal that someone from our office will attempt to reach out to him on the next business day to address his concerns. Ivette Kerr RN [facility]12-30-2024 Telephone encounter Note* Telephone Encounter - Rose Baldwin - 05/15/2024 3:18 PM EST Spouse, Carlos SANDERS on [facility] Nurse Line on 05/15 @2:59P. Pt name and verified 1955. Carlos is requesting to speak with nurse re: pt symptoms. Hallucinations are getting worse. Please call back at . Thank you, Rose [facility]12-19-2024 History of Present illness Narrative* Remigio Simpson MD - 05/04/2024 12:19 PM EST requests PT specifically for Parkinson's disease. Please write order for PT to evaluate andtreat with diagnosis of Lewy body dementia and Parkinson's. Please send order to PT Services in [place]. documented in this encounterSouthPointe [id number] History of Present illness Narrative* Herson Uribe DPM - 05/03/2024 9:45 AM EST Images from the original note were not [...] THE MORNING AND TAKE 1 TABLET (1MG) ATSUPPER, Disp: 30 tablet, Rfl: 1 hydrOXYzine HCl [...] OF UTERUS 2004 EYE SURGERY HYSTERECTOMY 2008 [place] REMOVE TONSILS/ADENOIDS,12+ Y/O 1961 Family History Family History Problem Relation Name Age of Onset Cancer Mother Ayla Jonas Arthritis Mother Ayla Jonas Hypertension Father Carlos Jonas Cancer Father Carlos Jonas Heart disease Sibling Arthritis Maternal Grandmother Dayna Tangier Objective General assessment: Alert and oriented. Pleasant [...] of any cryptotic margins, all periungual debris; providingeffective symptom and pressure relief; reducing shoe and [...] understanding. Herson Uribe DPM documented in this [facility]12-18-2024 Instructions* Patient Instructions* Herson Uribe DPM - 05/03/2024 9:45 AM EST As noted documented in this [facility]12-11-2024 Telephone encounter Note* Telephone Encounter - Francie Lira RN - 04/26/2024 3:08 PM EST Call placed to to resume original taper of haloperidol from OV on 04/19 per order of provider: he would begin to give her 0.5 mg in AM and 1 mg at HS-- and continue with my original taper regimen. Reviewed taper with and encouraged him to call with any questions or concerns that arise. Francie Lira RN [place] [address]-11-2024 Miscellaneous Notes* Telephone Encounter - Francie Lira RN - 04/26/2024 3:08 PM EST Call placed to to resume original taper of haloperidol from OV on 04/19 per order of provider: he would begin to give her 0.5 mg in AM and 1 mg at HS-- and continue with my original taper regimen. Reviewed taper with and encouraged him to call with any questions or concerns that arise. Francie Lira RN * Telephone Encounter - Francie Lira RN - 04/25/2024 10:31 AM EST Pt Carlos called to stated that he is very concerned that since the patient stopped the Haloperidol in AM, pt is crying a lot more, seems more depressed, and is having increased hallucinationsand delusions. Pt is saying that she wants [...] stated that patient just got over UTI -finished antibiotics on Wednesday. He does not suspect that the cause of these changes is infection. New for patient - she is unable to find bathroom in her home of 25 years. We discussed communication strategies for dealing with pt's delusions - changing topic, not arguingabout reality, and not telling patient that her parents are to minimize repeated grieving. Carlos expressed understanding and had no other questions/concerns at this time. Forwarded message to provider to review and advise. Francie Lira RN [facility] Telephone encounter Note * Telephone Encounter - Francie Lira RN - 04/25/2024 10:31 AM EST Pt Carlos called to stated that he is very concerned that since the patient stopped the Haloperidol in AM, pt is crying a lot more, seems more depressed, and is having increased hallucinationsand delusions. Pt is saying that she wants [...] stated that patient just got over UTI -finished antibiotics on Wednesday. He does not suspect that the cause of these changes is infection. New for patient - she is unable to find bathroom in her home of 25 years. We discussed communication strategies for dealing with pt's delusions - changing topic, not arguingabout reality, and not telling patient that her parents are to minimize repeated grieving. Carlos expressed understanding and had no other questions/concerns at this time. Forwarded message to provider to review and advise. Francie Lira RN [facility]12-05-2024 Telephone encounter Note* Telephone Encounter - Sera Killian APRN.ELIANE - 04/20/2024 5:03 PM EST Confidential email correspondence sent to spouse re: updated Haldol taper dosing as follows: Reduce to Haldol 1 mg at bedtime for two weeks, then, Reduce to Haldol 0.5 mg (1/2 of 1mg tab) at bedtime for two weeks - then stop altogether. Sera Killian APRN.CNP [facility]12-05-2024 Miscellaneous Notes* Telephone Encounter - Sera Killian APRN.CNP - 04/20/2024 5:03 PM EST Confidential email correspondence sent to spouse re: updated Haldol taper dosing as follows: Reduce to Haldol 1 mg at bedtime for two weeks, then, Reduce to Haldol 0.5 mg (1/2 of 1mg tab) at bedtime for two weeks - then stop altogether. Sera Killian APRN.CNP documented in this [facility]12-[facility]-2024 Telephone encounter Note * Telephone Encounter - Francie Lira RN - 04/20/2024 9:56 AM EST Carlos called to ask who will be [...] other questions or concerns. Francie Lira RN [facility]12-05-2024 Miscellaneous Notes* Telephone Encounter - Francie Lira RN - 04/20/2024 9:56 AM EST Carlos called to ask who will be [...] concerns. Francie Lira RN documented in this [facility]12-04-2024 Instructions* Patient Instructions* Sera Killian APRN.COFFEE SHOP AIDE - 04/19/2024 1:58 PM EST Dear Mrs. Donnie Bullock and family, It was nice to meet all of you today. We reviewed your evaluation of memory, mood and overall functioning. We discussed the testing we completed. We use a tool called the MOCA ([place] Cognitive Assessment). This is a brief tool [...] and inattentive. They have more problems with executivefunctioning (planning) and visuo-spatial skills (following an unfamiliar route, copying figure) butbetter delayed recall. Visual hallucinations are usually well formed and detailed. They may initially be pleasant (seeing children and little people or little bugs), but may evolve and be accompaniedby persecutory delusions. Parkinsonian features may include slowness of movements, masked face and s tiffness (rigidity). Medication Changes We recommend reducing and [...] call 911 and a trained law enforcement team memberwill respond with the equipment. A search will then be initiated, the average search time with thisprogram has been found to be less than 30 minutes. To learn more about this program or register call the [facility] Sheriff's office at [phone] or [facility] Senior Services at [phone] ([facility]). Medical Alert System Today Donnie had difficulty recalling what number to contact in the event of an emergency. We recommend utilizing a Medical Alert System to increase safety in the home. In the event of a fall or an emergency, help is available at the push of a button. Some options for this are: Dinero Limited: Call or visit https://Enerplant/ & click on Seniors tab -Mobile System. -Fall detection. -Medication reminders. -GPS monitoring. -Kale fencing option for wandering. -Checks heart rate, blood pressure, temperature, and oxygen levels. -Worn as a wristband. Life Alert: Call or visit www.lifealerthelp.Heartbeat -Offers home based and mobile system. -Offers a push button for the shower. -Comes in a lanyard. Lifefone: Call or visit www.Digiting -Home based or mobile system. -Fall detection. -GPS detects location of emergency. -Water proof. -Worn as a lanyard, wristband, or offers a push button. Lifeline: Call or visit www.Listen Edition -Home based & mobile system. -Fall detection. -GPS detects location of the emergency. -Water resistant; can be worn in the shower. -Worn as a wristband or lanyard. Lively: Call or visit www.Swing by Swing.Heartbeat/medical-alerts -Offers mobile systems. -Offers fall detection. -Comes in a lanyard. Also compatible with BuddyBounce and [employer]. Medical Alert: Call or visit www.Oberon Media -Offers home based & mobile system. -Mobile system offers GPS monitoring. -Fall detection for all systems. -Systems can be worn in the bath or shower. -Two way speaker allows you to communicate with a trained response specialist who will determine who to contact for help (family, friends, or emergency responders). -Comes in a lanyard or wristband. Medical Guardian: Call or visit www.Sportomania -Offers home based and mobile system. -GPS tracking for mobile system. -Water resistant, not water proof. -Worn as a lanyard or wristband. Mobile Help: Call or visit www.Fly Fishing Hunter -Offers home based & mobile system. -Comes in a lanyard or small mobile device. UnaliWear: Call or visit www.StreetOwl -Home based and mobile system. -Fall detection. -GPS detects location of the emergency. -Water resistant; can be worn in the shower. -Medication reminders. -Worn as a wristband. Adding Help at Home Additional help at home can be offered through what we refer to as private duty agencies. These agencies offer services including companionship, assistance with meals, medication reminders, householdchores, transportation and personal care if needed. Services [...] to build a relationship with the caregiver. [facility] Adult Home Care: or [employer]: [facility]: (Limited services at this time) Comfort Keepers: (Services in [facility] are limited, but available) First Choice: or Home Instead: [facility]: [facility]: Luis Capps: (Serves [facility]) Education & Support When an individual experiences [...] lewybodyresourcecenter.org or call their support line at [phone] or The Alzheimer's Association (web site: alz.org/[place]) An organization that provides education and support to individuals/caregivers affected by memory loss, Alzheimer's disease, and all forms of dementia. Available 24 hours a day, 7 days per week. Contact: Local: ; Toll free: [phone] Family Caregiver [place] (web site: Caregiver.org) BLANK Parrish-- a secure online solution for quality information, support, and resources for family caregivers. Contact: Toll-free number: [phone] Support Group Information [facility] Lewy Body Dementia Caregiver Support Group-Co sponsored by The Alzheimer's Association Wednesday of each month from 1:30-3:30pm Virtual group by altagracia, intended for caregivers of persons living with Dementia with Lewy Bodies andParkinson s Disease Dementia. To enroll in the group, please contact the Alzheimer s Association Helpline at [place] Lewy Body Support Group Wednesday of the Month 3:00pm EST Virtual group by Nyce Technologyom to support caregivers of those with Lewy Body Dementia. For more information and for the Zoom link, please contact Starla Coello at [phone] or [email or web address] - Improved Affordable Healthcare.org Literature The 36 Hour Day- Shy Irwin and Charles Aguilar (Audible available) Ambiguous Loss- Bria Fierro's Story-By Isaak Andrade (Audible available) My Two Elaines: Learning, Coping, and Surviving as an Alzheimer's Caregiver-by Jb Finney (Audible available) Communication tips -Keep information brief and simple. Avoid over explaining. -Be prepared for repeat questions. Answer once, answer twice, the third time change the subject. Ifneeded, change the room. -Anticipate that cues or [...] to remember certain people or objects -- cancontribute to these untrue beliefs. A person with [...] of his or her world with declining cognitivefunction. How To Respond to Delusions: How we [...] the individual, but keep it simple. Don't overwhelmthe person with lengthy explanations or reasons. Switch [...] place (living will & healthcare power of civil attorney), which is excellent. Documents for healthcare can be uploaded to your medical record in the following ways: -Bring the forms to any [facility] medical appointment. A copy will be made and scanned into your medical record. -Scan and send to [email or web address] -Fax to [phone] -Mail to: [facility] Information Management, Ab7 Advance Directives Processing [address], [place] [address] Durable Power of Trombone Slide Assembler for Finance We encourage you to verify that the forms for durable power of civil attorney regarding finance have beencompleted. Durable Power of Trombone Slide Assembler for Finance allows a person to name an individual that they would want tomake financial decisions on their behalf, in the event that they are unable to do so. These decisions may include: -Payment of a loved one s bills -Payment of their medical expenses -Investments made on their behalf -Collection of their senior living benefits -Application for insurance benefits You can visit https://www.[facility].org/topic/financial-poa for more information. These forms require a notary upon completion. Follow Up We would like you to return to [facility] for a follow up visit in 3-4 months. Our office can be reached by calling [phone] Option 1. Sincerely, Sera Killian APRN.JOSÉ ANTONIO Martinez, [facility] Kramer documented in this [facility]12-[facility]-2024 NoteHNO ID: [id number] Author: NIKKI DARBY LISW Service: ? Author [...] Last Job (What did pt do?) SUHAIL What would you like to accomplish with this visit today? Pt states that her is pursuing a second opinion regarding her DLB Vital Signs: BP 129/83 (BP Site: Left Arm, BP Position: Sitting, BP Cuff Size: Regular Adult) Pulse 76 Wt 73.8 kg (162 lb 11.2 oz) Farncie Lira RNMiami [facility] Hospital12-04-2024 History of Present illness Narrative* Francie Lira RN - 04/19/2024 12:45 PM ESTSummary: Nurse Note Donnie Bullock is a 68 year old year old left handed woman Accompanied by: spouse and son. Referralby: No referring provider defined for this encounter. 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 Pt states that her is pursuing a second opinion regarding her DLB Vital Signs: BP 129/83 (BP Site: Left Arm, BP Position: Sitting, BP Cuff Size: Regular Adult) Pulse 76 Wt 73.8 kg (162 lb 11.2 oz) Francie Lira RN * Sera Killian APRN.COFFEE SHOP AIDE - 04/19/2024 11:58 AM EST Date: April 19, 2024 DONNIE [address] [place] [address] [facility] INITIAL PATIENT EVALUATION Reason for Consult: Lewy Body Dementia-here for a 2nd opinion I had the pleasure of seeing this 68 year old year old female at the [facility]. The patient is referred by SELF. Patient is accompanied by and information obtained from SpouseJames and son Geoff and available records in [...] by neurology provider Dr. Rei Cobos at [facility], followed since August 2023. No cognitive testing on file. Formerly followed by psychiatry for LBD/anxiety. Last seen in September 2023. Care was established following her inpatient [facility] hospitalization in April 2023/May 2023. No family history of dementia or Parkinson's Disease. Per spouse and son report: -Lumbar puncture at [facility] September 30, 2023. Work up completed for possible rapidly progressing dementia. -Prior brain imaging (MRI/CT at outside medical systems). -Hallucinations daily (asks her spouse when is Vimal going to come home? ; sees babies; puppies, squirrel on spouse's shoulder, gives sign of peace to people she sees in her home). -Recently discharged from [facility] 4 months ago. Also previously had palliative care, no longer receiving this care. Onset and Progression: 2 years ago mild trouble with names of grandchildren. Changes noted following COVID dx (April 21 2023), spouse speaks of the pt being found wanderingoutside, confused. A few days after she did not recognize her spouse. She expressed not wanting to live, she was admitted to [facility] for further evaluation. Mobility changes at this time as well, previously walked regularly. Shuffling of feet, not swinging her arms. VH and misidentification of spouse also started at this time. Previous and Current treatment: Haldol 1 mg BID and as needed; Hydroxyzine; Melatonin; Mirtazapine;THC Functional Abilities ADL'S: Bathing:Independent vs need cuing [...] spouse Agencies involved: none currently-previously followed by [facility] Special Concerns: Hallucinations/Delusions: Yes: refers to seeing a woman with a black ribbon Believes parents are still living Sees babies, animals, people, other Vimal Misidentifies spouse Sleep: RBD No hx of falling OOB, no arm or leg movement reported, sleeping more- needs daytime naps 1.5 hours; talks/yells out in sleep; appears to act out dreams; confusion upon waking. Emergency: unrealistic plan: states would go to the neighbor's home Are there guns in the home? Yes-locked Home alone: Yes, occasionally. Medical Alert: No-information provided. Advanced Directives Durable POA: Yes Financial POA: Spouse will verify-information reviewed Consult [facility] FISH RECEIVER if not completed: role introduced, reviewed national organizations offering support, provided communication tips and caregiver strategies. SOCIAL HISTORY -Education completed: 14 -Some college -No tobacco. No significant alcohol abuse. No history of substance abuse. 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 -Marital status: -4 children -Guardian No -Is [...] Intact during interview, impaired language on MOCA 1 Mood: +anxious, low mood reported Affect: restricted PDW:yes SI:no Self-injurious behavior:NO Emotional state: calm Thought Process: logical Thought Content: delusions: see report, Hallucinations: yes- see report Judgment: impaired due to dementia and impaired due to lack of insight Insight: good [place] Cognitive Assessment (MoCA) Version 7.1 Total Score: 17/30 Visuospatial/Executive Alternating [place] Making: Patient is unable to successfully complete [...] Clock Drawin/5 poor Abstract thinking was good. intermediate card tender memory was good. She could name 7 animals in 60 seconds and 8words beginning with letter F in one minute. [...] diagnosis. This is her first visit to [facility]. MoCA administered with score of 17/30. This brief cognitivetesting revealed deficits in forming new memories, visuospatial [...] to live, and she was admitted to [facility] for further evaluation. She was placed on Haldol at that time and continues to take 1 mg BID. Family are not notinga benefit from it. Discussion held about the potential negative effects and spouse is aware of thistoo as he is well read on DLB. We agreed to taper and stop Haldol. I recommend we try Donepezil (Aricept) after she's off the Haldol. I have requested her most recentECG. We discussed use of Melatonin for her [...] which included preparing to see the patient, [id number] patient care, completing clinical documentation, obtaining and/or reviewing separately obtained history, counseling and educating the patient/family/caregiver, ordering medications, gloria ts, or procedures, communicating with other HCPs (not separately reported) and care coordination (not separately reported). Sera Killian APRN, Geriatric Clinical Nurse Specialist [facility] CC: 1. No primary care provider on file., (fax) None [address] [place] [address] documented in this encounterW[facility]oster [facility]12-[facility]-2024 NoteHNO ID: [id number] Author: SERA KILLIAN APRN.ELIANE Service: ? Author Type: Nurse Practitioner Type: Progress Notes Filed: 04/19/2024 17:34 Note Text: Date: April 19, 2024 DONNIE [address]ULLOCK [address] [place] [address] [facility] INITIAL PATIENT EVALUATION Reason [...] by neurology provider Dr. Rei Cobos at [facility], followed since August 2023. No cognitive testing on file. Formerly followed by psychiatry for LBD/anxiety. Last seen in September 2023. Care was established following her inpatient [facility] hospitalization in April 2023/May 2023. No family history of dementia or Parkinson's Disease. Per spouse and son report: -Lumbar puncture at [facility] September 30, 2023. Work up completed for possible rapidly progressing dementia. -Prior brain imaging (MRI/CT at outside medical systems). -Hallucinations daily (asks her spouse when is Vimal going to come home? ; sees babies; puppies, squirrel on spouse's shoulder, gives sign of peace to people she sees in her home). -Recently discharged from [facility] 4 months ago. Also previously [...] wanting to live, she was admitted to [facility] for further evaluation. Mobility changes at [...] spouse Agencies involved: none currently-previously followed by [facility] Special Concerns: Hallucinations/Delusions: [...] Financial POA: Spouse will verify-information reviewed Consult [facility] FISH RECEIVER if not completed: role introduced, reviewed national organizations offering support, provided communication tips and caregiver strategies. SOCIAL HISTORY -Education completed: 14 -Some college -No tobacco. No significant alcohol abuse. No history of substance abuse. 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 Please send orders to [facility]. documented in this encounterSouthPointe [id number] History of Present illness Narrative* Alexandria Ray, PT - 04/04/2024 10:00 AM EST Images from the original note were not [...] a factor as well as cognitive issues/memory andnot getting out and about as often. Some [...] correct technique, reminded of reps. Some confusion withstep ups. Therapeutic Activity: Exercises to improve dynamic activities, functional tasks, functional mobility to return to prior activity level Gait Training: prn Neuromuscular re-education: x12 min Balance training, july walk/BW walk 3 laps x 30 ft gait belt CGA along wall. Side steps 4 x 15 ft. NSEC ground 5 x 15 , NSEO/EC foam 5 x 15 with EC ~5 sec on/offduring bouts, Close SBA to CGA. Assessment/Plan General weakness, balance issues 2nd to deconditioning, medications causing increased difficulty with ADLs/self care, caregiver burden at times, decreased QOL Pt demos good tolerance to KAVYA today. Intermittent v/c for technique and recall of KAVYA required. Ptdemos very min sway with EC on ground and on foam so continued some EC on foam on/off. Close SBA toCGA for all balance. V/c required for posture with dynamic amb and step length with retro walk. Continue progression as tolerated. documented in this encounterSouthPointe [id number] History of Present illness Narrative* Deneen Miller, LATOYA - 03/30/2024 11:30 AM EST Images from the original note were not [...] a factor as well as cognitive issues/memory andnot getting out and about as often. Some [...] for technique and recall of KAVYA required. Ptdemos very min sway with EC on ground and on foam. CGA for all balance. V/c required for posture with dynamic amb and step length with retro walk. Continue progression as tolerated. Cosigned by Mary Peterson, PT at 03/31/2024 6:38 AM EST documented in this encounterSouthPointe [id number] History of Present illness Narrative* Beti Chávez PTA - 03/28/2024 11:00 AM EST Images from the original note were not [...] a factor as well as cognitive issues/memory andnot getting out and about as often. Some [...] sway but no LOB. Aynamic ambulation, july walk/BW walk, lateral steps 3 laps ~30 fthall, all CGA Modalities: Assessment/Plan General weakness, balance issues 2nd to deconditioning, medications causing increased difficulty with ADLs/self care, caregiver burden at times, decreased QOL Pt demos good tolerance to KAVYA today. Only required moderate cues for pattern of completing step ups. Pt demos very min sway with EC on ground and EO on foam., mod sway with trial of EC on foam todaybut no LOB. CGA for all balance. Continue progression as tolerated. Cosigned by Alexandria Ray, PT at 03/28/2024 5:37 PM EST documented in this encounterSouthPointe [id number] History of Present illness Narrative* Alexandria Ray, PT - 03/22/2024 1:00 PM EST Images from the original note were not [...] a factor as well as cognitive issues/memory andnot getting out and about as often. Some [...] ground, NSEO on foam, dynamic ambulation july walk/ walk 3 laps ~30 ft cronin. Modalities: [...] Continue progression as tolerated. documented in this encounterSouthPointe [id number] History of Present illness Narrative* Rei Cobos, DO - 03/20/2024 2:00 PM EST Images from the original note were not [...] with neurology. Things went back to her normalon Wednesday. Her states her hallucinations have worsened. [...] chronic DDD (degenerative disc disease), cervical Dementia ([facility] Depression ([facility]) May 25 Dyslipidemia ([facility]) DALILA (generalized anxiety disorder) ([facility]) Gastroesophageal reflux disease Impaired fasting glucose Lewy body dementia ([facility]) Loss of balance Low back pain, non-specific Olecranon bursitis, right elbow Orthostatic hypotension Osteopenia of lumbar spine Parkinson's disease ([facility]) 2023 PSVT (paroxysmal supraventricular tachycardia) ([facility]) Skin cancer Vertigo Past Surgical History: Procedure Laterality Date CARPAL TUNNEL RELEASE Left 06/15/2014 MTP CARPAL TUNNEL RELEASE Right 06/29/2014 MTP DILATION AND CURETTAGE OF UTERUS 2005 EYE SURGERY HYSTERECTOMY 2008 [place] REMOVE TONSILS/ADENOIDS,12+ Y/O 195 Family History Problem Relation Name Age of Onset Cancer Mother Ayla Jonas Arthritis Mother Ayla Jonas Hypertension Father Carlos Jonas Cancer Father Carlos Jonas Heart disease Sibling Arthritis Maternal Grandmother Dayna Tangier Social History Tobacco Use Smoking status: Never [...] reflexes are 2+ and symmetric throughout. Coordination: Kgompq-vw-jedx testing and rapid alternating movements are normal Gait: Normal Review and summary of old records: Patient was seen at [facility] for altered mental status at the [...] that tube there were approximately 50 white bloodcells and in the following 2 there were [...] process I believe overall the picture is declaringitself to be that of Lewy body dementia. [...] this patient was seen in the inpatient settingand was placed on Haldol. However, patient really [...] of mental health issues documented in this encounterSouthPointe [id number] History of Present illness Narrative* Alexandria Ray, PT - 03/16/2024 12:30 PM EDT Images from the original note were not [...] a factor as well as cognitive issues/memory andnot getting out and about as often. Some [...] min self care, issued green band for clams Manual Therapy: prn Therapeutic Exercise: per KAVYA [...] Please sign below. Date: documented in this encounterSouthPointe [id number] Telephone encounter Note* Telephone Encounter - Remigio Simpson MD - 03/14/2024 3:13 PM EDT Patient with worsening confusion and concerned of UTI. Please fax lab order to hospital. SouthPointe [id number] Miscellaneous Notes* Telephone Encounter - Remigio Simpson MD - 03/14/2024 3:13 PM EDT Patient with worsening confusion and concerned of UTI. Please fax lab order to hospital. documented in this [facility]10-24-2024 History of Present illness Narrative* Remigio Simpson MD - 03/09/2024 12:35 PM EDT Patient declining and requests PT. Please write PT order for unsteady gait, generalized weakness, and dementia. documented in this [facility]09-25-2024 History of Present illness Narrative* Georgina Sanford, PT - 02/09/2024 11:30 AM EDT Physical Therapy Physical Therapy Evaluation Patient Name: Donnie Bullock Today's Date: 02/09/2024 Please referred to scanned document from Evaluation on 02/09/24 documented in this [facility]09-18-2024 History of Present illness Narrative* Herson Uribe, DPM - 02/02/2024 9:30 AM EDT Images from the original note were not [...] THE MORNING AND TAKE 1 TABLET (1MG) ATSUPPER, Disp: 30 tablet, Rfl: 1 hydrOXYzine HCl [...] OF UTERUS 2004 EYE SURGERY HYSTERECTOMY 2007 [place] REMOVE TONSILS/ADENOIDS,12+ Y/O 1961 Family History Family History Problem Relation Name Age of Onset Cancer Mother Ayla Jonas Arthritis Mother Ayla Jonas Hypertension Father Carlos Jonas Cancer Father Carlos Jonas Heart disease Sibling Arthritis Maternal Grandmother Dayna Tangier Objective General assessment: Alert and oriented. Pleasant [...] of any cryptotic margins, all periungual debris; providingeffective symptom and pressure relief; reducing shoe and [...] understanding. Herson Uribe DPM documented in this [facility]09-18-2024 Instructions* Patient Instructions* Herson Uribe DPM - 02/02/2024 9:30 AM EDT As noted documented in this [facility]09-10-2024 History of Present illness Narrative* Rei Cobos DO - 01/25/2024 12:00 PM EDT Images from the original note were not [...] Hallucinations are more often at night time butcan occur anytime. She is thinking things and seeing things that are not there. He states she sees babies quite often. He states the behavioral center [place] told them this condition is physical not [...] but they don't currently have this. He saysshe uses this for her anxiety and it [...] of lumbar spine PSVT (paroxysmal supraventricular tachycardia) ([facility]) Skin cancer Vertigo Past Surgical History: Procedure Laterality Date CARPAL TUNNEL RELEASE Left 06/15/2014 MTP CARPAL TUNNEL RELEASE Right 06/29/2014 MTP DILATION AND CURETTAGE OF UTERUS 2004 EYE SURGERY HYSTERECTOMY 2007 [place] REMOVE TONSILS/ADENOIDS,12+ Y/O 1960 Family History Problem [...] reflexes are 2+ and symmetric throughout. Coordination: Kmodxu-wb-yzfh testing and rapid alternating movements are normal [...] that tube there were approximately 50 white bloodcells and in the following 2 there were [...] She has not able to participate with [place] cognitive assessment. Routine EEG was unremarkable. Neuropsych assessment is suggestive of probable Lewy body dementia. Lumbar puncture did not reveal any evidence of malignant cells. Autoimmune encephalitis panel did not yield any abnormalities. CJD panel is negative. Overall, now that she is having more shuffling of her gait, more clear visual hallucinations and the dementia process I believe overall the picture is declaringitself to be that of Lewy body dementia. . Plan: Patient will continue medications for psychiatric component of the disease including Haldol 1 mg p.o. b.I.d., Remeron 15 mg p.o. q.h.s. and hydroxyzine t.I.d. These are being refilled by primary careat this time as the patient has really [...] setting and actually very much needs to followup with them in the outpatient setting that [...] do feel she has functioning quite a highlevel still. Additional information is taken with the patient's who accompanies her to the visit today. Pt has been fully educated on their diagnosis, lab results, treatment options, follow up plan, return instructions, and discussion of mental health issues documented in this encounterSouthPointe [id number] Progress note Author Lionel kingsley [facility] September 22, 2023 9:37amNote Date/TimeMay 2023 9:37[place] [address] Psychiatry Progress Note Signed Patient: Donnie Bullock MR#: [id number] : 1955 Acct:[id number] Age/Sex: 67 / F Adm Date: 4 Loc: 1S Room: [address] [place] [address] Type : ADM IN Attending Dr: Sridhar Hoffman MD Copies to: ~ Date of Service: 09/21/2023 Subjective Subjective Narrative: Ms. Bullock reports that she is doing okay. I spoke to her and explained the case in details.Patient has neurocognitive disorder and she is expected tohave gradual decline in her memory. She is currently oriented x 3. She is not making bizarre comments. The patient denies current suicidal orhomicidal ideation, and verbalized the intent to notify [...] signed by Lionel Still MD> 09/22/23 0937 [facility] Work Phone: 1(991) 159-505705-07-2024 Progress note Author Lionel kingsley [facility] September 20, 2023 10:19pmNote Date/TimeMay 2023 10:[place] [id number] Psychiatry Progress Note Signed Patient: Donnie Bullock MR#: [id number] : 1955 Acct:[id number] Age/Sex: 67 / F Adm Date: 4 Loc: 1S Room: [address] [place] [address] Type : ADM IN Attending Dr: Sridhar [...] she became very anxious and was given m edication bythe nurse which made her sleepy, but states that it helped her anxiety Patient was personally seen by me on the day of the encounter. I reviewed the history and performedthe rowland elements of the assessment. I formulated [...] <Electronically signed by Lionel Still MD> 09/20/23 2217 [facility] Work Phone: 1(608) 242-234805-05-2024 Progress note Author Sridhar Hoffman [facility] September 19, 2023 11:52amNote Date/TimeMay 2023 11:51[place] [id number] Psychiatry Progress Note Signed Patient: Donnie Bullock MR#: [id number] : 1955 Acct:[id number] Age/Sex: 67 / F Adm Date: 4 Loc: 1S Room: [address] [place] [address] Type : ADM IN Attending Dr: Sridhar [...] that she is out of school in [place]. Mental Status Exam: Appearance: grossly normal Mental [...] signed by Sridhar Hoffman MD> 09/19/23 1152 [facility] Work Phone: 1(457) 195-109905-04-2024 Progress note Author Sridhar Hoffman [facility] September 18, 2023 10:54amNote Date/TimeMay 2023 10:[address] [address] Psychiatry Progress Note Signed Patient: Donnie Bullock MR#: [id number] : 1955 Acct:[id number] Age/Sex: 67 / F Adm Date: 4 Loc: 1S Room: [address] [place] [address] Type : ADM IN Attending Dr: Sridhar [...] <Electronically signed by Sridhar Hoffman MD> 09/18/231053 [facility] Work Phone: 1(788) 925-351305-03-2024 Progress note Author Sirdhar Hoffman [facility] September 17, 2023 11:40amNote Date/TimeMay 2023 11:[address] [address] Psychiatry Progress Note Signed Patient: Donnie Bullock MR#: [id number] : 1955 Acct:[id number] Age/Sex: 67 / F Adm Date: 4 Loc: 1S Room: [address] [place] [address] Type : ADM IN Attending Dr: Sridhar [...] signed by Sridhar Hoffman MD> 09/17/23 1140 [facility] Work Phone: 1(651) 195-807105-02-2024 Progress note Author Sridhar Hoffman [facility] September 16, 2023 12:53pmNote Date/TimeMay 2023 12:53[place] [address] Psychiatry Progress Note Signed Patient: Donnie Bullock MR#: [id number] : 1955 Acct:[id number] Age/Sex: 67 / F Adm Date: 4 Loc: 1S Room: [address] [place] [address] Type : ADM IN Attending Dr: Sridhar Hoffman MD Copies to: ~ Date of Service: 09/16/2023 Subjective Subjective Narrative: Ms. Bullock seems to be more confused today. She stated that the day started off well and then started talking about lunch. However it was 9 AM when I spoke with her. She stated that she is living offa different time. She stated that she woke [...] signed by Sridhar Hoffman MD> 09/16/23 1253 [facility] Work Phone: 1(612) 479-379505-01-2024 History and physical note Author Sridhar Hoffman [facility] September 15, 2023 12:23pmNote Date/TimeMay 2023 12:24pmKevin [place] [id number] Psychiatry H&P Signed Patient: Donnie Bullock MR#: [id number] : 1955 Acct:[id number] Age/Sex: 67 / F Adm Date: 4 Loc: Room: [address] [place] [address] Type: ADM IN Attending Dr: Sridhar Hoffman [...] reported that she thought she saw an Congregation girl while here in the hospital. She [...] suicidality Insight: fair Judgment: fair [facility] Medical History Osteopenia History of skin cancer [...] Appearance Clear Urine pH 7.0 Ur Specific [place] 1.004 Urine Protein Negative Urine Glucose (UA) [...] signed by Sridhar Hoffman MD> 09/15/23 1223 [facility] Work Phone: 1(998) 727-241202-14-2024 Telephone encounter Note* Telephone Encounter - Remigio Simpsno MD - 06/30/2023 12:26 PM EST Patient with increased confusion and concerned of UTI. Please fax orders to [facility]. SouthPointe [id number] Miscellaneous Notes* Telephone Encounter - Remigio Simpson MD - 06/30/2023 12:26 PM EST Patient with increased confusion and concerned of UTI. Please fax orders to [facility]. documented in this encounterSouthPointe [id number] Hospital Discharge instructions Additional Instructions Important Contact Information You can call [facility] at [phone] any time day or night if you have emergent questions or question regarding discharge instructions. If at any time you are feeling an increase in your psychiatric symptoms, call your physician or behavioral healthcare provider. If any time you have thoughts of harming yourself or others contact one of the following: Call 88 (available 07/12) Crisis Text Line (available 07/12) text 4HOPE to [phone] [facility] Hope Line (available 8 a.m. Midnight) call [phone] ([phone]) [facility] Work Phone: 1(857) 243-133508-25-2023 NoteChief Complaint consultation for change in bowel [...] Tobacco Use:. Household tobacco (more content not included)...[facility] Comment on above:Result Comment: Electronically Signed By: AVNI ROGERS, Amor Rangel\Date and Time Signed: 01/08/23 15:31 [id number] NotePROCEDURE: XR ELBOW RT MIN 3 VIEWS HISTORY: Pain of right elbow joint since falling one year ago COMPARISON: None. FINDINGS: BONES:No fracture, acute abnormality, or significant arthropathy. SOFT TISSUES:No visible soft tissue swelling. EFFUSION:None visible. OTHER: Negative. IMPRESSION: 1. Normal examination. Electronically authenticated by: HERSON REBOLLEDO Date: 2022-03-12 18:14[facility] summary Author Lionel kingsley [facility] September 22, 2023 8:41pmNote Date/TimeMay 2023 8:[address] [address] Discharge Summary Signed Patient: Donnie Bullock MR#: [id number] : 1955 Acct:[id number] Age/Sex: 67 / F Adm Date: 4 Loc: Room: [address] [place] [address]: Sridhar Hoffman MD Copies to: [...] reported that she thought she saw an Congregation girl while here in the hospital. She [...] mg at bedtime. She also did have herhydroxyzine decreased to 25 mg. She is to [...] Instructions: Important Contact Information You can call [facility] at [phone] any timeday or night if you have emergent questions or question regarding discharge instructions. If at anytime you are feeling an increase inyour psychiatric symptoms, call your physician or behavioral healthcare provider. If any time you have thoughts of harming yourself or others contact one of the following: Call (available 07/12) Crisis Text Line (available 07/12) text 4HOPE to [phone] [facility] Hope Line (available 8 a.m. Midnight) call [phone] ([phone]) Instructions: Dementia (DC), [facility] [place] Instructions, Know your Meds [...] Rx Instructions: 8am and 5pm Follow Up: [facility] [Outside] - 09/29/23 12:30 pm (A case reviewer will call you on 09/23/23 between 8:00am [...] 19:40 Documented By: Lionel Still MD 4 [id number] Signed By: <Electronically signed by Lionel Still MD> 09/22/232040 [facility] Work Phone: Evaluation + Plan note No data available for this section General Surgery Tomy Evaluation noteNo assessment information available [facility] Work Phone: Evaluation note* Diagnosis Onset Date Resolution Status Anxiety acuteConfusionacuteDepressionacuteMajor neurocognitive disorderacuteSuicidal ideationacute [facility] Work Phone: Evaluation note* Diagnosis Recurrent UTI- Primary Urinary tract infection, site not specified DALILA (generalized anxiety disorder) (CMS/HCC) Generalized anxiety disorder Neck pain Cervicalgia MDD (major depressive disorder), recurrent episode, mild (HCC) (CMS/HCC) [facility] Diagnosis Dysuria- Primary [facility]* Diagnosis Onset Date Resolution Status Anxiety acuteDepressionacuteMajor neurocognitive disorderacuteSuicidal ideationacute [facility] Work Phone: Evaluation note* Diagnosis DALILA (generalized [...] giddiness Dysuria- Primary documented in [facility] encounter [facility]* Diagnosis Mild neurocognitive disorder- Primary MDD (major depressive disorder), recurrent episode, mild (HCC) (CMS/HCC) Generalized weakness Rapidly progressive dementia (CMS/HCC)- Primary Bilateral primary osteoarthritis of knee Breast cancer screening by mammogram Dizziness Dizziness and giddiness Urinary tract infection without hematuria, site unspecified documented in this encounter [facility]* Diagnosis Mild neurocognitive disorder- Primary MDD (major depressive disorder), recurrent episode, mild (HCC) (CMS/HCC) Generalized weakness Rapidly progressive dementia (CMS/HCC)- Primary Bilateral primary osteoarthritis of knee Breast cancer screening by mammogram Dizziness Dizziness and giddiness Generalized weakness- Primary Rapidly progressive dementia (CMS/HCC) Unsteady gait Abnormality of gait documented in this encounter [facility]* Diagnosis Lewy body dementia with behavioral disturbance (HCC)- Primary Dementia with Lewy bodies Other depression 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 Secondary parkinsonism, unspecified secondary Parkinsonism type (HCC) Visual hallucinations Psychophysical visual disturbances [facility] Diagnosis Dermatophytosis of nail- Primary Dystrophic nail Other specified disease of nail Pain around toenail, right foot Pain around toenail, left foot documented in this encounter [facility]* Diagnosis Mild neurocognitive disorder- Primary MDD (major depressive disorder), recurrent episode, mild (HCC) (CMS/HCC) Generalized weakness Rapidly progressive dementia (CMS/HCC)- Primary Bilateral primary osteoarthritis of knee Breast cancer screening by mammogram Dizziness Dizziness and giddiness Generalized weakness- Primary Rapidly progressive dementia (CMS/HCC) Unsteady gait Abnormality of gait documented in this encounter [facility]* Diagnosis Mild neurocognitive disorder- Primary MDD (major depressive disorder), recurrent episode, mild (HCC) (CMS/HCC) Generalized weakness Rapidly progressive dementia (CMS/HCC)- Primary Bilateral primary osteoarthritis of knee Breast cancer screening by mammogram Dizziness Dizziness and giddiness Generalized weakness- Primary Rapidly progressive dementia (CMS/HCC) Unsteady gait Abnormality of gait documented in this encounter [facility]* Diagnosis Mild neurocognitive disorder- Primary [...] Dizziness and giddiness Lewy body dementia with behavioral disturbance (CMS/HCC)- Primary Dementia with Lewy bodies Skin candidiasis- Primary Candidiasis of skin and nails [facility] Diagnosis Mild neurocognitive disorder- Primary MDD (major depressive disorder), recurrent episode, mild (HCC) (CMS/HCC) Generalized weakness Rapidly progressive dementia (CMS/HCC)- Primary Bilateral primary osteoarthritis of knee Breast cancer screening by mammogram Dizziness Dizziness and giddiness Lewy body dementia with behavioral disturbance (CMS/HCC)- Primary Dementia with Lewy bodies Candidal skin infection- Primary Constipation, unspecified constipation type [facility]* Diagnosis Mild neurocognitive disorder- Primary MDD (major depressive disorder), recurrent episode, mild (HCC) (CMS/HCC) Generalized weakness Rapidly progressive dementia (CMS/HCC)- Primary Bilateral primary osteoarthritis of knee Breast cancer screening by mammogram Dizziness Dizziness and giddiness Lewy body dementia with behavioral disturbance (CMS/HCC)- Primary Dementia with Lewy bodies Dehydration- Primary Nausea and vomiting, unspecified vomiting type Lewy body dementia with behavioral disturbance (CMS/HCC) Dementia with Lewy bodies DALILA (generalized anxiety disorder) (CMS/HCC) Generalized anxiety disorder Secondary parkinsonism, unspecified [facility] Diagnosis Mild neurocognitive disorder- Primary MDD (major depressive disorder), recurrent episode, mild (HCC) (CMS/HCC) Generalized weakness Rapidly progressive dementia (CMS/HCC)- Primary Bilateral primary osteoarthritis of knee Breast cancer screening by mammogram Dizziness Dizziness and giddiness Lewy body dementia with behavioral disturbance (CMS/HCC)- Primary Dementia with Lewy bodies Dehydration- Primary Nausea and vomiting, unspecified vomiting type Lewy body dementia with behavioral disturbance (CMS/HCC) Dementia with Lewy bodies DALILA (generalized anxiety disorder) (CMS/HCC) Generalized anxiety disorder Secondary parkinsonism, unspecified DALILA (generalized anxiety disorder) (CMS/HCC) Generalized anxiety disorder documented in this encounter [facility]* Diagnosis Mild neurocognitive disorder- Primary MDD (major depressive disorder), recurrent episode, mild Generalized weakness Rapidly progressive dementia (HCC)- Primary Bilateral primary osteoarthritis of knee Breast cancer screening by mammogram Dizziness Dizziness and giddiness Lewy body dementia with behavioral disturbance (HCC)- Primary Dementia with Lewy bodies Dehydration- Primary Nausea and vomiting, unspecified vomiting type Lewy body dementia with behavioral disturbance (HCC) Dementia with Lewy bodies DALILA (generalized anxiety disorder) Generalized anxiety disorder Secondary parkinsonism, unspecified (HCC) Dermatophytosis of nail- Primary Dystrophic nail Other specified disease of nail Pain around toenail, right foot Pain around toenail, left foot documented in this encounter [facility]* Diagnosis Mild neurocognitive disorder- Primary MDD (major depressive disorder), recurrent episode, mild Generalized weakness Rapidly progressive dementia (HCC)- Primary Bilateral primary osteoarthritis of knee Breast cancer screening by mammogram Dizziness Dizziness and giddiness Lewy body dementia with behavioral disturbance (HCC)- Primary Dementia with Lewy bodies Dehydration- Primary Nausea and vomiting, unspecified vomiting type Lewy body dementia with behavioral disturbance (HCC) Dementia with Lewy bodies DALILA (generalized anxiety disorder) Generalized anxiety disorder Secondary parkinsonism, unspecified (HCC) DALILA (generalized anxiety disorder) Generalized anxiety disorder documented in this encounter [facility]* Diagnosis Mild neurocognitive disorder- Primary MDD (major depressive disorder), recurrent episode, mild Generalized weakness Rapidly progressive dementia (HCC)- Primary Bilateral primary osteoarthritis of knee Breast cancer screening by mammogram Dizziness Dizziness and giddiness Lewy body dementia with behavioral disturbance (HCC)- Primary Dementia with Lewy bodies Dehydration- Primary Nausea and vomiting, unspecified vomiting type Lewy body dementia with behavioral disturbance (HCC) Dementia with Lewy bodies DALILA (generalized anxiety disorder) Generalized anxiety disorder Secondary parkinsonism, unspecified (HCC) Dermatophytosis of nail- Primary Dystrophic nail Other specified disease of nail Pain around toenail, right foot Pain around toenail, left foot documented in this encounter [facility] note Author Sridhar Hoffman [facility] May 26, 2023 12:28pmNote Date/TimeJanuary 2023 12:28pm[place] [address] Psychiatry H&P Signed Patient: Donnie Bullock MR#: [id number] : 1955 Acct:[id number] Age/Sex: 67 / F Adm Date: 4 Loc: Room: [address] [place] [address] Type: ADM IN Attending Dr: Sridhar Hoffman MD Copies to: MD Remigio Jorge MD~ Date of Service: 05/26/2023 [facility] History of Present Illness History of present illness: Ms. Bullock is a 67 year old female who presented due to concern for paranoid thoughts. It was documented that the symptoms started after she developed COVIDin April. It was also documented that shehad suicidal thoughts over the past month and [...] suicidality Insight: fair Judgment: fair [facility] Medical History (Updated 05/26/23 @ 12:28 by [...] signed by Sridhar Hoffman MD> 05/26/23 1228 [facility] Work Phone: Hospital Discharge instructions No data available for this section General Surgery [facility] Progress note No data available for this section General Surgery [facility] Reason for referral (narrative)* Consultation (Routine) - Pending ReviewSpecialtyDiagnoses / ProceduresReferred By ContactReferred To ContactUrology Diagnoses Recurrent UTI Procedures AK OFFICE/OUTPATIENT NEW HIGH MDM 60 MINUTES Remigio Simpson MD [address] [place] [address] Amor Arcos MD [address] [place] [address] Referral IDStatusReasonStart DateExpiration DateVisits RequestedVisits [id number] Review Specialty Services Required / [facility] HealthcareReason for referral (narrative)No reason for referral information availableMer[facility] Work Phone: Reason for visit Narrative* Rehabilitation - Outpatient (Routine) - AuthorizedSpecialtyDiagnoses / ProceduresReferred By ContactReferred To ContactPhysical Therapy Diagnoses Generalized weakness Rapidly progressive dementia (CMS/HCC) Unsteady gait Procedures AK OFFICE/OUTPATIENT NEW HIGH MDM 60 MINUTES Remigio Simpson MD [address] [place] [address] Phone: tel: fax: Alexandria Ray, PT [address] [place] [address] Phone: tel: fax: Referral IDStatusReasonStart DateExpiration DateVisits RequestedVisits [id number] Consult and Treat /[id number] [facility] HealthcareReason for visit Narrative* Rehabilitation - Outpatient (Routine) - AuthorizedSpecialtyDiagnoses / ProceduresReferred By ContactReferred To ContactPhysical Therapy Diagnoses Generalized weakness Rapidly progressive dementia (CMS/HCC) Unsteady gait Procedures AK OFFICE/OUTPATIENT NEW HIGH MDM 60 MINUTES Remigio Simpson MD [address] [place] [address] Phone: tel: fax: Alexandria Ray, PT [address] [place] [address] Phone: tel: fax: Referral IDStatusReasonStart DateExpiration DateVisits RequestedVisits [id number] Consult and Treat /[id number] [facility] Healthcare Summary Purpose Family History No Family [...] mentia Chief Complaint Suicidal Ideation-De mentia Suicidal Ideation-DementiaReason for VisitAnxiety Depression Major neurocognitive disorder Suicidal ideation Chief Complaint Admit Date BH June 07, 2024 1 0:28am Unknown February 24th, 2025 10:50am Reason for Referral SpecialtyDiagnoses / ProceduresReferred By ContactReferred To Contact Diagnoses DALILA (generalized anxiety disorder) ([facility]) Remigio Simpson MD [address] [place] [address] Referral IDStatusReasonStart DateExpiration DateVisits RequestedVisits [id number] Additional Source Comments INFORMATION SOURCE (unrecogn ized section and content) DATE CREATED AUTHOR 09/17/2022 [facility] DATE CREATED AUTHOR AUTHOR'S ORGANIZ ATION 02/17/2023 [facility] DATE CREATED AUTHOR AUTHOR'S ORGANIZ ATION 05/26/[address] [facility] DATE CREATED AUTHOR AUTHOR'S ORGANIZ ATION 06/02/2024 [facility] DATE CREATED AUTHOR AUTHOR'S ORGANIZ ATION 07/14/2024 [facility] DATE CREATED AUTHOR AUTHOR'S ORGANIZ ATION 01/06/2025 [facility] DATE CREATED AUTHOR AUTHOR'S ORGANIZ ATION 02/07/2025 [facility] EPIC Patient Care team informatio n (unrecognized section and content) Team Status: Active Member Role Status Dates Remigio Simpson MD Primary Care Provider Active Team Status: Inactive Member Role Status Dates Remigio Simpson MD Primary Care Provider Active S tart: September 14, 2023 End: September 21Vickie Garza ProviderActiveStart: September 14, 2023 End: September 21Iris Geiger Provider, Attending ProviderActive Start: September 14, 2023 End: September 22, 2023 Team Status: Active Member Role Status Dates Remigio Simpson MD Primary Care Provider Active S tart: September 15, 2023 Vickie Martell ProviderActiveStart: September 15, 2023 Iris Jorge Provider, Attending Provider, Other ProviderActive Start: September 15, 2023 Team Status: Active Member Role Status Dates Robert Caruso DO Emergency Provider Active Diaz [facility]y Care ProviderActiveAdeyemi Dalton , MDAdmit Provider, Attending ProviderActive Team Status: Active Member Role Status Dates Robert Caruso , DO Emergency Provider Active Sta rt: May 25, 2023 Cece Lilly Care ProviderActiveStart: May 25, 2023 Sridhar Hoffman , MDAdmit Provider, Other ProviderActiveStart: May 25, 2023 Lionel Still , MDAttending ProviderActiveStart: May 25, 2023 Team MemberRelationshipSpecialtyStart DateEnd Date Remigio Simpson MD PCP - GeneralFamily Medicine05/17/22Team MemberRelationshipSpecialtyStart DateEnd Date Remigio Simpson MD PCP - GeneralFamily Medicine05/17/22Team MemberRelationshipSpecialtyStart DateEnd Date Remigio Simpson MD PCP - GeneralFamily Medicine05/17/22 Team Status: Active Member Role Status Dates Remigio Simpson MD Primary Care Provider Active S tart: September 14, 2023 Good Garcia , Emergen ProviderActiveStart: September 14, 2023 Sridhar Hoffman , PENGdmit Provider, Attending ProviderActiveStart: September 14, 2023 Team MemberRelationshipSpecialtyStart DateEnd Date Remigio Simpson MD [address] [place] [address] PCP - GeneralFamily Medicine07/19/23Team MemberRelationshipSpecialtyStart DateEnd Date Remigio Simpson MD [address] [place] [address] PCP - GeneralFamily Medicine07/19/23Team MemberRelationshipSpecialtyStart DateEnd Date Remigio Simpson MD [address] [place] [address] PCP - GeneralFamily Medicine07/19/23Team MemberRelationshipSpecialtyStart DateEnd Date Remigio Simpson MD [address] [place] [address] PCP - GeneralFamily Medicine07/19/23Team MemberRelationshipSpecialtyStart DateEnd Date Remigio Simpson MD [address] [place] [address] PCP - Generalmily Medicine07/19/23Team MemberRelationshipSpecialtyStart DateEnd Date Remigio Simpson MD [address] [place] [address] PCP - GeneralFamily Medicine07/19/23 Rei Cobos DO [address] [place], [place] [address] Referring UbjyxhyhxYoskiomwm25/1/24Team MemberRelationshipSpecialtyStart DateEnd Date Remigio Simpson MD [address] [place] [address] PCP - GeneralFamily Medicine07/19/23 Rei Cobos DO [address] [place] [address] Referring MicrxmgucJhqaaolrz70/1/24Team MemberRelationshipSpecialtyStart DateEnd Date Remigio Simpson MD [address] [place] [address] PCP - GeneralFamily Medicine07/19/23 Rei Cobos DO [address] [place], [place] [address] Referring KtwqllzitOhauktgrl04/1/24Team MemberRelationshipSpecialtyStart DateEnd Date Remigio Simpson MD [address] [place] [address] PCP - GeneralFamily Medicine07/19/23 Rei Cobos DO [address] [place] [address] Referring MegpjppneVwgjlfqng18/1/24Team MemberRelationshipSpecialtyStart DateEnd Date Remigio Simpson MD [address] [place] [address] PCP - GeneralFamily Medicine07/19/23 Rei Cobos DO [address] [place], [place] [address] Referring HbbzptikoLbyjzscao58/1/24Team MemberRelationshipSpecialtyStart DateEnd Date Remigio Simpson MD [address] [place] [address] PCP - GeneralFamily Medicine07/19/23 Rei Cobos DO [address] [place] [address] Referring FtkuztznbWgfsricnt41/1/24Team MemberRelationshipSpecialtyStart DateEnd Date Remigio Simpson MD [address] [place] [address] PCP - GeneralFamily Medicine07/19/23 Rei Cobos DO [address] [place] [address] Referring RiervklcvYrudtjehi72/1/24Team MemberRelationshipSpecialtyStart DateEnd Date Remigio Simpson MD [address] [place] [address] PCP - GeneralFaw[facility] Medicine07/19/23 Rei Cobos DO [address] [place] [address] Referring BirwkapprCtwucoybq39/1/24Team MemberRelationshipSpecialtyStart DateEnd Date Remigio Simpson MD [address] [place] [address] PCP - GeneralChanning Home Medicine07/19/23 Rei Cobos DO [address] [place] [address] Referring DjyzsfxsuAyufaxvzg18/1/24Team MemberRelationshipSpecialtyStart DateEnd Date Remigio Simpson MD [address] [place] [address] PCP - GeneralFamily Medicine07/19/23 Rei Cobos DO [address] [place] [address] Referring IpafbjokrLkgguoobn65/1/24Team MemberRelationshipSpecialtyStart DateEnd Date Remigio Simpson MD [address] [place] [address] PCP - GeneralFamily Medicine07/19/23 Rei Cobos DO [address] [place], [place] [address] Referring PqxnlrnbpTohayevpc61/1/24Team MemberRelationshipSpecialtyStart DateEnd Date Remigio Simpson MD [address] [place] [address] PCP - GeneralFamily Medicine07/19/23 Rei Cobos DO [address] [place] [address] Referring FzxxunbhnLrxnaevby87/1/24Team MemberRelationshipSpecialtyStart DateEnd Date Remigio Simpson MD [address] [place] [address] PCP - GeneralFamily Medicine07/19/23 Rei Cobos DO [address] [place] [address] Referring FtmflfkpwAgwgkwkwf10/1/24Team MemberRelationshipSpecialtyStart DateEnd Date Remigio Simpson MD [address] [place] [address] PCP - GeneralFamily Medicine07/19/23Team MemberRelationshipSpecialtyStart DateEnd Date Remigio Simpson MD [address] [place] [address] PCP - GeneralFamily Medicine07/19/23Team MemberRelationshipSpecialtyStart DateEnd Date Remigio Simpson MD [address] [place] [address] PCP - GeneralFamily Medicine07/19/23 Rei Cobos DO [address] [place] [address] Referring PyiltxykvMkqxtjpec23/1/24Team MemberRelationshipSpecialtyStart DateEnd Date Remigio Simpson MD [address] [place] [address] PCP - GeneralFamily Medicine07/19/23Team MemberRelationshipSpecialtyStart DateEnd Date Remigio Simpson MD [address] [place] [address] PCP - GeneralFamily Medicine07/19/23 Rei Cobos DO [address] [place] [address] Referring YasoiduizAuedgkfqe57/1/24Team MemberRelationshipSpecialtyStart DateEnd Date Remigio Simpson MD [address] [place] [address] PCP - GeneralFamily Medicine07/19/23 Remigio Simpson MD [address] [place] [address] PCP - ACO Reach06/23/24 Rei Cobos DO [address] [place] [address] Referring QxqkcnsseUjaoicpic08/1/24Team MemberRelationshipSpecialtyStart DateEnd Date Remigio Simpson MD [address] [place] [address] PCP - Generalmily Medicine07/19/23 Remigio Simpson MD [address] [place] [address] PCP - ACO Reach06/23/24 Rei Cobos DO [address] [place] [address] Referring UqfdewfbnQbwxvyrta17/1/24Team MemberRelationshipSpecialtyStart DateEnd Date Remigio Simpson MD [address] [place] [address] PCP - GeneralFamily Medicine07/19/23 Remigio Simpson MD [address] [place] [address] PCP - ACO Reach06/23/24 Rei Cobos DO [address] [place] [address] Referring LjxsgrcguSvulohevm98/1/24 Team Status: Active Member Role Status Dates Remigio Simpson MD Primary Care Provider Active S tart: June 07, 2024 Lionel Still MDAttending ProviderActiveStart: June 07, 2024 Team Status: Active Member Role Status Dates Remigio Simpson MD Primary Care Provider Active S tart: June 07, 2024 Emmanuel Solo DOAttending ProviderActiveStart: June 07, 2024 Team Status: Inactive Member Role Status Dates Remigio Simpson MD Attending Provider Active Star t: July 10, 2024 End: July 10, 2024Team MemberRelationshipSpecialtyStart DateEnd Date Remigio Simpson MD [address] [place] [address] PCP - GeneralFamily Medicine07/19/23 Remigio Simpson MD [address] [place] [address] PCP - ACO Reach06/23/24 Rei Cobos DO [address] [place] [address] Referring LrhqmtmyiUkataeseu63/1/24Team MemberRelationshipSpecialtyStart DateEnd Date Remigio Simpson MD [address] [place] [address] PCP - GeneralFamily Medicine07/19/23 Remigio Simpson MD [address] [place] [address] PCP - ACO Reach06/23/24 Rei Cobos DO [address] [place] [address] Referring HrmgdhbyhMsxqdhazq09/1/24Team MemberRelationshipSpecialtyStart DateEnd Date Remigio Simpson MD [address] [place] [address] PCP - GeneralFamily Medicine07/19/23 Remigio Simpson MD [address] [place] [address] PCP - ACO Reach06/23/24 Rei Cobos DO [address] [place] [address] Referring UvhcoyjugUyfjmazgw26/1/24Team MemberRelationshipSpecialtyStart DateEnd Date Remigio Simpson MD [address] [place] [address] PCP - GeneralFamily Medicine07/19/23 Remigio Simpson MD [address] [place] [address] PCP - ACO Reach06/23/24 Rei Cobos DO [address] [place] [address] Referring BvywzcjgvWlljgsjti49/1/24Team MemberRelationshipSpecialtyStart DateEnd Date Remigio Simpson MD [address] [place] [address] PCP - GeneralFamily Medicine07/19/23 Remigio Simpson MD [address] [place] [address] PCP - ACO Reach06/23/24 Rei Cobos DO [address] [place] [address] Referring YzvjpspksByiohqauc33/1/24Team MemberRelationshipSpecialtyStart DateEnd Date Remigio Simpson MD [address] [place] [address] PCP - GeneralUnitypoint Health-Jones [facility] Centerly Medicine07/19/23 Remigio Simpson MD [address] [place] [address] PCP - ACO Reach06/23/24 Rei Cobos DO [address] [address] Referring NjovtquxnOgdtaehrx61/1/24Team MemberRelationshipSpecialtyStart DateEnd Date Remigio Simpson MD [address] [place] [address] PCP - Generalmily Medicine07/19/23 Remigio Simpson MD [address] [place] [address] PCP - ACO [facility]06/23/24 Rei Cobos DO [address] [place] [address] Referring DbnpahmqbSevfednrk95/1/24 Team Status: Inactive Member Role Status Dates Remigio Simpson MD Primary Care Provider Active S tart: January 18, 2025 End: January 18, 2025Mar PENG Simpsonttending ProviderActiveStart: January 18, 2025 End: January 18, 2025Team MemberRelationshipSpecialtyStart DateEnd Date Remigio Simpson MD [address] [place] [address] PCP - GeneralFamily Medicine07/19/23 Remigio Simpson MD [address] [place] [address] PCP - ACO Reach06/23/24 Rei Cobos DO [address] [place] [address] Referring ZtnizvrhzMovopldqu75/1/24Team MemberRelationshipSpecialtyStart DateEnd Date Remigio Simpson MD [address] [place] [address] PCP - GeneralFamily Medicine07/19/23 Remigio Simpson MD [address] [place] [address] PCP - ACO Reach06/23/24 Rei Cobos DO [address] [place] [address] Referring UwplhftclNmdbktnyc45/1/24 Goals (unrecognized section and content) Goals may be documented in a n alternate section Source Comments (unrecognize d section and content) In the event this informatio n is protected by the Federal Confidentiality of Alcohol and Drug Abuse Patient Records regulations: The Federal rules restrict any use of the information to criminally investigate or prosecute any alcohol or drug abuse patient.[facility] the event this information is protected by the Federal Confidentiality of Alcohol and Drug Abuse Patient Records regulations: The Federal rules restrict any use of the information to criminally investigate or prosecute any alcohol or drug abuse patient.[facility] HospitalIn the event this information is protected by the Federal Confidentiality of Alcohol and Drug Abuse Patient Records regulations: The Federal rules restrict any use of the information to criminally investigate or prosecute any alcohol or drug abuse patient.[facility] HospitalIn the event this information is protected by the Federal Confidentiality of Alcohol and Drug Abuse Patient Records regulations: The Federal rules restrict any use of the information to criminally investigate or prosecute any alcohol or drug abuse patient.[facility]In the event this information is protected by the Federal Confidentiality of Alcohol and Drug Abuse Patient Records regulations: The Federal rules restrict any use of the information to criminally investigate or prosecute any alcohol or drug abuse patient.[facility] HospitalIn the event this information is protected by the Federal Confidentiality of Alcohol and Drug Abuse Patient Records regulations: The Federal rules restrict any use of the information to criminally investigate or prosecute any alcohol or drug abuse patient.[facility] HospitalIn the event this information is protected by the Federal Confidentiality of Alcohol and Drug Abuse Patient Records regulations: The Federal rules restrict any use of the information to criminally investigate or prosecute any alcohol or drug abuse patient.[facility] HospitalIn the event this information is protected by the Federal Confidentiality of Alcohol and Drug Abuse Patient Records regulations: The Federal rules restrict any use of the information to criminally investigate or prosecute any alcohol or drug abuse patient.[facility] HospitalIn the event this information is protected by the Federal Confidentiality of Alcohol and Drug Abuse Patient Records regulations: The Federal rules restrict any use of the information to criminally investigate or prosecute any alcohol or drug abuse patient.[facility] Reason for Visit (unrecogniz ed section and content) ReasonCommentsNew Patient EvaluationReasonCommentsNail careMarcia Dylan Elder is a 67 y.o. female who presents for Nail care.ReasonCommentsMedication Follow-up ReasonCommentsFungusPt is here today with her spouse for 3mo FUV nail fungus, they will sometimes bother her when shoesare onSS:9ReasonCommentsPatient QuestionPatient UpdateSpouse requesting to speak with nurseReasonCommentsCalled BackPatient QuestionSpouse requesting a return phone callReasonCommentsRefill RequestReasonOnset DateCommentsMed Wgosth6308/14/2024ReasonOnset DateCommentsMed Xiliap9908/22/2024ReasonCommentsFollow-upEr f/upFell out of bedReasonComments Toenail CareEstablished patient presents today for routine nail care.Reason CommentsMed RefillReasonCommentsNail careMarcia Elder 69yo Established patient presents for routine nail care. FOR RECORDS PERTAINING TO PATIENTS WHO ARE [...] BE BASED ON THE PRIMARY CLINICAL RECORDS. [facility] [email or web address] [facility]. provides no warranty or guarantee of the accuracy or completeness of information in this document.
--- OUTSIDE RECORDS SUMMARY | 2025-03-17 10:13 | XMS_ITS | Clinical Summary ---
Author Organization [facility] Address [address] [place] [address] Care Team Providers Care Gate Mortiser Operator Name Role Phone Remigio Hoyos MD Primary Care Provider [phone] Vasyl Cobos DO Unavailable [phone] Remigio Hoyos MD Unavailable Allergies Active AllergyReactionsCriticalityNoted DateCommentsAlprazolamHallucinations, Czykmnp8507/19/2023 Medications MedicationSigDispense QuantityRefillsLast FilledStart DateEnd DateStatus lactulose (Chronulac) 10 GM/15ML solution Indications:Constipation, chronicTake 15 mL (10 g) by mouth in the morning and 15 mL (10 g) before bedtime. 900 mL 11106/18/7188365Active atorvastatin (Lipitor) 10 MG tablet Indications:DyslipidemiaTake 1 tablet (10 mg) by mouth Daily 30 tablet 11008/07/9324596Active sertraline (Zoloft) 25 MG tablet Indications:Constipation, unspecified [...] 40 tablet 5Active Active Problems ProblemNoted DateDiagnosed NwrzEyhxlgkhvcf94/30/2025 Assessment & Plan (09/13/2024 2:50 PM EDT): Improved after IV fluids and encourage PO intake. Nausea and /30/2025 Assessment & Plan (09/13/2024 2:51 PM EDT): No further symptoms and use medication PRN. Lewy body dementia with behavioral ucvrxrclyfv84/04/2024 Assessment & Plan (10/04/2024 2:43 PM EDT): [...] psychiatry. Okay to continue THC edibles. Secondary lvudhzygletb84/04/2024Unsteady gait12/24/2023ilateral primary osteoarthritis of knee12/24/2023 Assessment & Plan (12/24/2023 10:06 AM EDT): Worsening symptoms and severe weakness. Will order evaluation for power mobility chair to assist with ADLs around the house. Primary /29/7600Ynypectvs67/23/2024Family history of lueeaz3709/07/2023 Wrqapzb3609/07/2023Moderate protein-calorie malnutrition ([facility])09/07/2023 Personal history of COVID-19007/24/2023mbulatory lqvoiyavlwz06/04/2024Encounter for wheelchair rtcukaoknz18/04/2024ecurrent UTI06/29/2023MDD (major depressive disorder), recurrent episode, mild06/09/2023 Assessment & Plan (06/09/2023 4:40 PM EST): Mood improved with medication adjustment and follow up with psychiatry. Generalized erednfms30/24/2024 Assessment & Plan (06/09/2023 4:40 PM EST): Will place referral to home health for assessment of needs. Likely will benefit from at least PT. Constipation, hbnauol7205/28/2023DD (degenerative disc disease), cervical 05/28/20239480Fgppcosusudm60/12/2024Olecranon bursitis of right elbow05/28/2023 Orthostatic utnbrubhxtu75/12/2024Encounter for long-term (current) use of kqitygkstsf06/26/2023AD (generalized anxiety disorder)04/30/2023PPV (benign paroxysmal positional vertigo), unspecified bkmqqsedzb69/17/2023izziness 12/31/2022 Assessment & Plan (12/24/2023 10:06 AM EDT): Worsening symptoms and severe weakness. Will order evaluation for power mobility chair to assist with ADLs around the house. Paroxysmal supraventricular evsrfipeeth89/04/2022 Resolved Problems ProblemNoted DateDiagnosed DateResolved DateRapidly progressive dementia Assessment & Plan (12/24/2023 10:06 AM EDT): Worsening symptoms and severe weakness. Will order evaluation for power mobility chair to assist with ADLs around the house. Metabolic hlxvitwlmjmyqt88Mild neurocognitive disorder Assessment & Plan (06/09/2023 4:40 PM EST): Mood improved with medication adjustment and follow up with psychiatry. Carpal tunnel nllhikqs61/01/2024Neck pain Encounters DateTypeDepartmentCare BkfbRqqbvkaplgt92/23/2025 9:15 AM EDTOffice Visit [facility] [address] [place] [address] Ulices Uribe, DPM Dermatophytosis of nail (Primary Dx); Dystrophic nail; Pain around toenail, right foot; Pain around toenail, left foot02/06/2025amboo flowsheet [facility] [address] [place] [address] Ulices Uribe DPM 02/06/20256045Upfpuz07/22/4066Jxgddm70/19/2025Refill [facility] [address] [place] [phone] Remigio Hoyos MD DALILA (generalized anxiety disorder)from Last 3 Months Immunizations ImmunizationAdministration DatesNext DueHep B, Adolescent or Kcmjnkdbb62/04/2003 ,02/16/2003Hep B, adult07/20/2003Influenza, High Dose Seasonal, Preservative Free05/15/2024,01/25/2019Influenza, High-dose Seasonal, Quadrivalent, Preservative Free02/22/2022Influenza, Seasonal, Quadrivalent, Adjuvanted 02/18/2023,02/14/2021,02/21/2020Influenza, injectable, quadrivalent, preservative free02/15/2018Influenza, seasonal, surumoscuo58/30/2015,03/04/2014 Influenza, seasonal, injectable, preservative free04/14/2017Pneumococcal Polysaccharide BAAD7456 Family History Medical HistoryRelationNameCommentsCancerFatherJames WernerHypertensionFather Carlos WernerArthritisMaternal [...] relatives?Twice a week09/08/2023How often do you attend mosque or nondenominational services?More than 4 times per year09/08/2023o you belong to any clubs or organizations such as mosque groups, unions, fraternal or athletic groups, or school groups?No09/08/2023How often do you attend meetings of the clubs or organizations you belong to?Never09/08/2023re you , , , , never , or living with a partner?Itvjaen9809/08/2023UDIT-C AnswerDate RecordedQ1: How often do you have [...] hard at all09/08/2023 PHQ-2AnswerDate RecordedPatient Health Questionnaire-2 Mdrau882[facility] [place] of Occupational Health - Occupational Stress QuestionnaireAnswerDate [...] InformationValueDate RecordedSex Assigned at BirthNot on fileLegal YotUwkmog78/15/2023 7:24 PM EDTGender Identity Not on fileSexual OrientationNot on file Last Filed Vital Signs Vital SignReadingTime TakenCommentsBlood Hhbascvp138/5804 2:21 PM EDT Ipqxj2136 2:21 PM YODTnlqbupnuwy17.9 ??C (96.6 ??F)09/13/2024 2:21 PM EDTRespiratory Napf498509/13/2024 2:21 PM EDTOxygen Wruxpvcskj75%09/13/2024 2:21 PM EDTInhaled Oxygen Concentration--Lpiirz04.8 kg (165 lb)02/06/2025 9:19 AM EDT Krcxdt868.6 cm (5' 4 )02/06/2025 9:19 AM EDTBody Mass Index28.32002/06/2025 9:19 AM EDT Plan of Treatment DateTypeDepartmentCare Team (Latest Contact Info)Dfnjogrieio16/29/2025 2:15 PM ESTProcedure Visit [facility] [address] [place] [phone] Ulices Uribe, CHRIS [address] [place], [place] [phone] Health MaintenanceDue DateLast DoneCommentsCT Uqgzhunfafld45/25/1954FIT 1955FOBT1953 3195Terbdaibynyok07/25/1954TaP/Tdap/Td Vaccines (1 - Tdap) 1960Hepatitis B Vaccines (2 of 3 - 19+ 3-dose series), 03/20/2003, 02/16/2003Pneumococcal Vaccine: 65+ Years (2 of 2 - PCV)03/09/2021 03/09/2020FIT-DNA/01/20219197Lkkstxseb47/14//4COVID-19 Vaccine ( - season)505/, 03/06/2021, 07/30/2020, Additional history existsInfluenza Vaccine (#1)/, 02/18/2023, 02/22/2022, Additional history tjsxepOtydqenkeob15/13//olorectal Cancer Lzlvlxoog69/13/2033HIB VaccinesAged OutNo longer eligible based on patient's [...] EDT Narrative 12/29/2023 10:45 AM EDT The [facility] ?[address] ? [place], [place] [address] ? Mammography Report ? Signed ? Patient: YOANA IRENE A ?MR#: [id number] ?? : 1955 ?Acct:[id number] ?? Age/Sex: 68 / F ?ADM Date: 12/29/23 ?? Loc: MAMMO ? Attending Dr: Remigio Hoyos M.D. ? Ordering Physician: Remigio Hoyos M.D. ?Results: ? Date of Service: 12/29/23 ?Follow Up: ? Procedure(s): MM tomosynthesis screening BI ?? Accession Number(s): [id number] ? cc: Remigio Hoyos M.D. ? Patient Name: ? YOANA IRENE ? MR#: [id number] ? : 1955 ? Exam Date: 12/29/2023 [...] at age 59. ? LOCATION: ? [facility] ? BREAST COMPOSITION: ? There are scattered [...] 1045 ? DD/ 1044 ? TD/TT: ? Custom Wood Stair Builder: Procedure Note Radiology, Radiologist, - 12/29/[address] [address] Mammography Report Signed Patient: YOANA IRENE AMR#: [id number] : 4Acct:[id number] Age/Sex: 68 / FADM Date: 12/29/23 Loc: MAMMO Attending Dr: Remigio Hoyos M.D. Ordering Physician: Remigio Hoyos M.D.Results: Date of Service: 12/29/23Follow Up: Procedure(s): MM tomosynthesis screening BI Accession Number(s): [id number] cc: Remigio Hoyos M.D. Patient Name: YOANA IRENE MR#: [id number] : 1955 Exam Date: 12/29/2023 Ordering Doctor: [...] pancreatic cancer at age 59. LOCATION: The [facility] BREAST COMPOSITION: There are scattered areas of [...] M.D. Signed By:12/29/23 1045 DD/ 1044 TD/TT: Custom Wood Stair Builder: Authorizing ProviderResult TypeResult StatusMarc Soha MDCLINISYNC IMAGING Final Result from Last 3 Months or Most Recently Relevant to Health Maintenance Additional Health Concerns Active ProblemsNoted DateDiagnosed DatePatient on antidepressant monitoring plan 5Baseline PHQ-9009/20/2024 Insurance Care Teams Team MemberRelationshipSpecialtyStart DateEnd Date Remigio Hoyos MD [address] [place] [phone] PCP - GeneralFamily Medicine07/19/23 Remigio Hoyos MD [address] [place] [address] PCP - ACO Reach06/23/24 Vasyl Cobos DO [address] [place] [address] Referring AspkankqcDtveuwsvp99/1/24
--- OUTSIDE RECORDS SUMMARY | 2025-03-17 10:14 | XMS_ITS | Clinical Summary ---
Author Organization [facility] Address [address] [place] [address] Care Team Providers Care Rehabilitation Medicine Physician Name Role Phone Unavailable Primary Care Provider [...] 90 tablet 5Active Active Problems ProblemNoted DateDiagnosed IfagWehjygttxg83/04/2024Lewy body dementia with behavioral dnoeykcvinu79/04/2024BD (REM behavioral disorder)04/19/2024Secondary mfsqkmrtklqi63/04/2024Visual pxksktvabajajj13/04/2024 Social History Tobacco UseTypesPacks/DayYears UsedDateSmoking Tobacco: Never AssessedArea Deprivation IndexAnswerDate RecordedNational Score (1-100), lower number is lower zhec997604/19/2024State Score (1-10), lower number is lower todm95206/20/2023 Data from: https://www.neighborhoodatlas.medicine.[facility].edu/. Last address used for hnlcs[address]04/19/2024CommentsUnknownSex and Gender InformationValueDate RecordedSex Assigned at BirthNot on fileLegal SexFemale 07/02/2023 11:09 AM ESTGender IdentityNot on fileSexual OrientationNot on file Last Filed Vital Signs Vital SignReadingTime TakenCommentsBlood Gkjikdfk063/8304/19/2024 12:37 PM EST Jeoni784504/19/2024 12:37 PM ESTTemperature--Respiratory Rate--Oxygen Saturation-- Inhaled Oxygen Concentration--Izprkd97.8 kg (162 lb 11.2 oz)04/19/2024 12:37 PM ESTHeight--Body Mass Index-- Plan of Treatment Health MaintenanceDue DateLast DoneCommentsHepatitis C Ssgfcrmeo37/25/1972 DTaP,Tdap,Td Vaccine (1 - Tdap)1972Mammogram Areuotqod11/25/1994CT Yjaxfypszejn52/25/0817Eeoyxxlgoqt00/25/1999Diabetes Skfcaruoc66/25/1999Fecal Occult Blood1998Lipid Mtjnzxzez11/25/7374Eehnaoypxexjo28/25/1999Shingrix Vaccine (1 of 2)11/09/2003Medicare Annual Wellness Visit10/15/2018Bone Density Mdbyyntmi77/25/2019Pneumococcal Vaccine: 50+ (2 of 2 - PCV) Cologuard (FIT-DNA)/olorectal Cancer Drcsaeoru17/09/2024 Advance Directive Xrjxginjhm28/01/2025Covid-19 Vaccine ( season) /05/2021, 10/05/2021, 03/06/2021, Additional history existsInfluenza Vaccine (#1)/09/2022, 02/22/2022, 02/14/2021, Additional history existsRSV Vaccine (1 - 1-dose 75+ series)2028 Insurance
--- OUTSIDE RECORDS SUMMARY | 2025-03-17 10:14 | XMS_ITS | Encounter Summary ---
Author Organization [facility] Address [address] [place] [address] Care Team Providers Care Breastfeeding Educator Name Role Phone Remigio Hoyos MD Primary Care Provider [phone] Rei Franz DO Unavailable [phone] Remigio Hoyos MD Unavailable Encounter Details DateTypeDepartmentCare Team (Latest Contact Info)Mltbfwhywjb28/30/2024Clinisync Result Encounter [facility] External Department Unsolicited Rei Franz DO [address] [place], [place] [id number] Social History Tobacco UseTypesPacks/DayYears UsedDateSmoking Tobacco: NeverPassive Smoke Exposure: NeverSmokeless Tobacco: NeverAlcohol UseStandard Drinks/WeekComments Not Currently0 (1 standard drink = 0.6 oz pure alcohol)Social Connection and Isolation PanelAnswerDate RecordedIn a typical week, how many times do you talk on the phone with family, friends, or neighbors?Twice a week09/08/2023How often do you get together with friends or relatives?Twice a week09/08/2023How often do you attend cheondoism or baptist services?More than 4 times per year4Do you belong to any clubs or organizations such as cheondoism groups, unions, fraternal or athletic groups, or school groups?No09/08/2023How often do you attend meetings of the clubs or organizations you belong to?Never4Are you , , , , never , or living with a partner?Djvrgiu6909/08/2023UDIT-CAnswerDate RecordedQ1: How often do you have a [...] heating?Not hard at all09/08/2023HQ-2AnswerDate RecordedPatient Health Questionnaire-2 Uzhtk807Finogden [facility] [place] of Occupational Health - Occupational Stress QuestionnaireAnswerDate [...] steady place to sleep or slept in [facility] (including now)?No09/08/2023 EducationAnswerDate RecordedWhat is the highest level of school you have completed or the highest degree you have received?Associate degree: occupational, technical, or vocational /17/2023CommentsUnknown Sex and Gender InformationValueDate RecordedSex Assigned at BirthNot on file Legal BmeXlppll26/15/2023 7:24 PM EDTGender IdentityNot on fileSexual OrientationNot on filedocumented as of this encounter Plan of Treatment DateTypeDepartmentCare Team (Latest Contact Info)Ekbzqrxoflz14/29/2025 2:15 PM ESTProcedure Visit [facility] [address] [facility] [place] [phone] Ulices Uribe, DPTrinity [address] [address] documented as of this encounter Procedures Procedure NamePriorityDate/TimeAssociated DiagnosisCommentsCT CHEST W AND WO IV MFPLDZLP62/30/2024 12:53 PM EDT documented in this encounter Results * CT chest w and wo IV contrast (09/14/2023 12:53 PM EDT)Anatomical Region LateralityModalityBody, ChestComputed TomographySpecimen (Source)Anatomical Location / LateralityCollection Method / VolumeCollection TimeReceived Time 09/14/2023 12:53 PM EDT Narrative 09/14/2023 12:56 PM EDT The [facility] ?[address] ? [place] [address] ? CT Scan Report ? Signed ? Patient: YOANA IRENE ?MR#: [id number] ?? : 1955 ?Acct:[id number] ?? Age/Sex: 67 / F ?ADM Date: 09/14/23 ?? Loc: CT ? Attending Dr: Rei Franz D.O. ? Ordering Physician: Rei Franz D.O. ?? Date of Service: 09/14/23 ?? Procedure(s): CT chest wo/w con ?? Accession Number(s): [id number] ? cc: Remigio Hoyos M.D. ? [facility] ? [address] ? [place] [address] ? Patient Name: ?? YOANA Richardson ELDER ? MRN: [facility]:[id number] ? date: 1955 ?Sex: F ?? Assigned Patient Location: CT ?? Current Patient Location: CT ?? Accession/Order Number: [id number] ?? Exam Date: 09/14/2023 ??09:20 ?Report Date: [...] 1256 ? DD/ 1253 ? TD/TT: ? Umbrella Repairer: Procedure Note Radiology, Radiologist, - 09/15/2023 [place] [address] CT Scan Report Signed Patient: YOANA IRENE AMR#: [id number] : 1955cct:[id number] Age/Sex: 67 / FADM Date: 09/14/23 Loc: CT Attending Dr: Rei Franz D.O. Ordering Physician: Rei Franz D.O. Date of Service: 09/14/23 Procedure(s): CT chest wo/w con Accession Number(s): [id number] cc: Remigio Hoyos M.D. The [place] [id number] Patient Name: YOANA IRENE MRN: [id number] date: 1955 Sex: F Assigned Patient Location: CT Current Patient Location: CT Accession/Order Number: [id number] Exam Date: 09/14/2023 09:20 Report Date: 09/14/2023 [...] left renal nonenhancing cysts one measuring 1 drainage inspector second measuring 8.9 cm deforming the left [...] M.D. Signed By:09/14/23 1256 DD/ 1253 TD/TT: Umbrella Repairer: Authorizing ProviderResult TypeResult StatusChristopher Chandrika [facility] PROCEDURESFinal Result documented in this encounter Visit Diagnoses Not on filedocumented in this encounter Care Teams Team MemberRelationshipSpecialtyStart DateEnd Date Remigio Hoyos MD [address] [place] [phone] PCP - GeneralFamily Medicine07/19/23 Remigio Hoyos MD [address] [place] [address] PCP - ACO Reach06/23/24 Rei Franz DO [address] [place] [address] Referring WtnifhicjWezdkizbc46/1/24documented as of this encounter
--- OUTSIDE RECORDS SUMMARY | 2025-03-17 10:14 | XMS_ITS | Clinical Summary ---
Author Organization [employer] Address [id number] [address] [place] [address] Care Team Providers Care Service Desk Director Name Role Phone Remigio Hoyos MD Primary Care Provider [phone] Allergies No known active allergies Medications MedicationSigDispense [...] anxiety.Active Active Problems ProblemNoted DateDiagnosed DateParoxysmal supraventricular zfocifsclbx99/04/2022 Abnormal EKG008/18/2021 Immunizations ImmunizationAdministration DatesNext DueCOVID-19, mRNA, LNP-S, PF, 30mcg/0.3mL Dose07/30/2020,07/09/2020 Family History Medical HistoryRelationNameCommentsCancerFatherHypertensionFatherCancerMother HyperlipidemiaMotherHeart diseaseSisterRelationNameStatusCommentsFatherDeceased MotherDeceasedSister Social History Tobacco UseTypesPacks/DayYears UsedDateSmoking Tobacco: NeverSmokeless Tobacco: NeverAlcohol UseStandard Drinks/WeekCommentsYes0 (1 standard drink = 0.6 oz pure alcohol)ChildcareAnswerDate YqfxjrydQjjjnzmdeYrovzta47/22/2021mploymentAnswer Date TqrcdtexEmdowtmfpwCxhoats58/22/2021Hunger ScreeningAnswerDate Recorded Within the past 12 months we worried whether our food would run out before we got money to buy more.Never True11/23/2022Within the past 12 months the food we bought just didn't last and we didn't have money to get more.Never True 3Purpose - LifeAnswerDate RecordedPurpose and direction in lifeUnknown 07/08/2020CommentsUnknownSex and Gender InformationValueDate RecordedSex Assigned at BirthNot on fileLegal OtcGckulq23/06/2015 11:22 AM EDTGender IdentityNot on fileSexual OrientationNot on file Last Filed Vital Signs Vital SignReadingTime TakenCommentsBlood Wkcuuibt064/8811/23/2022 8:50 AM EDT Uvlzy827011/23/2022 8:50 AM EDTTemperature--Respiratory Rate--Oxygen Wvuapuihyk35% 11/23/2022 8:50 AM EDTInhaled Oxygen Concentration--Rewpma26 kg (176 lb 6.4 oz) 11/23/2022 8:50 AM HBFCsqtwn913.6 cm (5' 6 )11/23/2022 8:50 AM EDTBody Mass Index28.4707 8:50 AM EDT Plan of Treatment Health MaintenanceDue DateLast DoneCommentsDepression Gtneftlch12/25/1966Tobacco Rysfsjhzy39/25/1966DTaP,Tdap and Td Vaccines (1 - Tdap)1972Zoster (Shingles) Vaccine (1 of 2)11/09/2003Fall Risk Yvydtlgkp04/25/2019Adult BMI Hiimtdehv89/OVID-19 Vaccine ( - season)2025 03/17/2022, 10/05/2021, 03/06/2021, Additional history existsInfluenza Vaccine /09/2022, 02/22/2022, 02/14/2021, Additional history exists Medical Devices Not on file Insurance Care Teams Team MemberRelationshipSpecialtyStart DateEnd Date Remigio Hoyos MD [facility]CP - [facility]Ke[facility] Centerly [facility]11/20/21
--- OUTSIDE RECORDS SUMMARY | 2025-03-17 10:14 | XMS_ITS | Clinical Summary ---
Author Organization [facility] Address [address], [address] [place] [address] Care Team Providers Care Powder Truck Driver Name Role Phone Unavailable Primary Care Provider Unavailabl e Social History Tobacco UseTypesPacks/DayYears UsedDateSmoking Tobacco: Never Assessed CommentsUnknownSex and Gender InformationValueDate RecordedSex Assigned at Not on fileLegal VmtGkkism35/10/2013 9:57 AM ESTGender IdentityNot on fileSexual OrientationNot on file Plan of Treatment Not on file
--- OUTSIDE RECORDS SUMMARY | 2025-03-17 10:14 | XMS_ITS | Encounter Summary ---
Author Organization [facility] Address [address] [place] [address] Care Team Providers Care Rhit Name Role Phone Remigio oHyos MD Primary Care Provider [phone] Vasyl Cobos DO Unavailable [phone] Remigio Hoyos MD Unavailable Encounter Details DateTypeDepartmentCare Team (Latest Contact Info)Hvnyjnwrfoi41/14/2024Clinisync Result Encounter [facility] External [facility] Unsolicited Remigio Hoyos MD [address] [place] [id number] Social History Tobacco UseTypesPacks/DayYears UsedDateSmoking Tobacco: NeverPassive Smoke Exposure: NeverSmokeless Tobacco: NeverAlcohol UseStandard Drinks/WeekComments Not Currently0 (1 standard drink = 0.6 oz pure alcohol)Social Connection and Isolation PanelAnswerDate RecordedIn a typical week, how many times do you talk on the phone with family, friends, or neighbors?Twice a week09/08/2023How often do you get together with friends or relatives?Twice a week09/08/2023How often do you attend advent or restorationism services?More than 4 times per year09/08/2023o you belong to any clubs or organizations such as advent groups, unions, fraternal or athletic groups, or school groups?No09/08/2023How often do you attend meetings of the clubs or organizations you belong to?Never09/08/2023re you , , , , never , or living with a partner?Bdslieq7309/08/2023UDIT-CAnswerDate RecordedQ1: How often do you have a [...] heating?Not hard at all09/08/2023HQ-2AnswerDate RecordedPatient Health Questionnaire-2 Adaxy804[facility] [place] [facility] - Occupational Stress QuestionnaireAnswerDate [...] steady place to sleep or slept in [facility] (including now)?No09/08/2023 EducationAnswerDate RecordedWhat is the highest level of school you have completed or the highest degree you have received?Associate degree: occupational, technical, or vocational fhxgutj73/17/2023CommentsUnknown Sex and Gender InformationValueDate RecordedSex Assigned at BirthNot on file Legal MrqJlrafu90/15/2023 7:24 PM EDTGender IdentityNot on fileSexual OrientationNot on filedocumented as of this encounter Plan of Treatment DateTypeDepartmentCare Team (Latest Contact Info)Tzhnbjkqtaf35/29/2025 2:15 PM ESTProcedure Visit [facility] [address] [place] [phone] Ulices Uribe DPM [address] [place], [place] [phone] documented as of this encounter Procedures Procedure NamePriorityDate/TimeAssociated DiagnosisCommentsMM TOMOSYNTHESIS SCREENING BI12/29/2023 10:44 AM EDT documented in this encounter Results * MM TOMOSYNTHESIS SCREENING BI (12/29/2023 10:44 AM EDT)Anatomical Region LateralityModalityOtherSpecimen (Source)Anatomical Location / Laterality Collection Method / VolumeCollection TimeReceived Time12/29/2023 10:44 AM EDT Narrative 12/29/2023 10:45 AM EDT [facility] ?[address] ? [place] [address] ? Mammography Report ? Signed ? Patient: KOBE,YOANA Richardson ?MR#: [id number] ?? : 1955 ?Acct:[id number] ?? Age/Sex: 68 / F ?ADM Date: 08/14/24 ?? Loc: MAMMO ? Attending Dr: Remigio Hoyos M.D. ? Ordering Physician: Remigio Hoyos M.D. ?Results: ? Date of Service: 12/29/23 ?Follow Up: ? Procedure(s): MM tomosynthesis screening BI ?? Accession Number(s): [id number] ? cc: Remigio Hoyos M.D. ? Patient Name: ? YOANA IRENE ? MR#: [id number] ? : 1955 ? Exam Date: 12/29/2023 [...] at age 59. ? LOCATION: ? [facility] ? BREAST COMPOSITION: ? There are [...] ?12/29/235 ? DD/ 1044 ? TD/TT: ? Gas Blender: Procedure Note Radiology, Radiologist, MD - 12/29/2023 [place] [address] Mammography Report Signed Patient: YOANA IRENE AMR#: [id number] : 4Acct:[id number] Age/Sex: 68 / FADM Date: 12/29/23 Loc: MAMMO Attending Dr: Remigio Hoyos M.D. Ordering Physician: Remigio Hoyos M.D.Results: Date of Service: 12/29/23Follow Up: Procedure(s): MM tomosynthesis screening BI Accession Number(s): [id number] cc: Remigio Hoyos M.D. Patient Name: YOANA IRENE MR#: [id number] : 1955 Exam Date: 12/29/2023 Ordering Doctor: DR Remigio Orellana RADIOLOGY REPORT PROCEDURE: MM TOMOSYNTHESIS SCREENING BI [...] pancreatic cancer at age 59. LOCATION: [facility] BREAST COMPOSITION: There are scattered areas [...] M.D. Signed By:12/29/23 1045 DD/ 1044 TD/TT: Gas Blender: Authorizing ProviderResult TypeResult StatusMarc Soha [facility]AG[facility] Final Result documented in this encounter Visit Diagnoses Not on filedocumented in this encounter Care Teams Team MemberRelationshipSpecialtyStart DateEnd Date Remigio Hoyos MD [address] [place] [address] PCP - GeneralFamily Medicine07/19/23 Remigio Hoyos MD [address] [place] [address] PCP - ACO Reach06/23/24 Vasyl Cobos DO [address] [place] [address] Referring YaneviyohApiilzxyb69/1/24documented as of this encounter
--- OUTSIDE RECORDS SUMMARY | 2025-03-17 10:14 | XMS_ITS | Encounter Summary ---
Author Organization [facility] Address [address] [place] [address] Care Team Providers Care Magnetic Tape Winder Name Role Phone Remigio Hoyos MD Primary Care Provider [phone] Rei Cobos DO Unavailable [phone] Remigio Hoyos MD Unavailable Encounter Details DateTypeDepartmentCare Team (Latest Contact Info)Dcimtuadpah87/30/2024Clinisync Result Encounter [facility] External Department Unsolicited Rei Cobos DO [address] [place], [place] [id number] Social History Tobacco UseTypesPacks/DayYears UsedDateSmoking Tobacco: NeverPassive [...] week09/08/2023How often do you attend zoroastrianism or lutheran services?More than 4 times per year4Do you belong to any clubs or organizations such as zoroastrianism groups, unions, fraternal or athletic groups, or school groups?No09/08/2023How often do you attend meetings of the clubs or organizations you belong to?Never4Are you , , , , never , or living with a partner?Vxnqlgv0109/08/2023UDIT-CAnswerDate RecordedQ1: How often do you have a [...] heating?Not hard at all09/08/2023HQ-2AnswerDate RecordedPatient Health Questionnaire-2 Iaffz982[facility] - Occupational Stress QuestionnaireAnswerDate [...] steady place to sleep or slept in [facility] (including now)?No09/08/2023 EducationAnswerDate RecordedWhat is the highest level of school you have completed or the highest degree you have received?Associate degree: occupational, technical, or vocational zgzinth80/17/2023CommentsUnknown Sex and Gender InformationValueDate RecordedSex Assigned at BirthNot on file Legal CmiCexcls10/15/2023 7:24 PM EDTGender IdentityNot on fileSexual OrientationNot on filedocumented as of this encounter Plan of Treatment DateTypeDepartmentCare Team (Latest Contact Info)Qwtiybxsklf21/29/2025 2:15 PM ESTProcedure Visit [facility] [address] [place] [address] Ulices Uribe, DPTrinity [address] [place] [address] documented as of this encounter Procedures Procedure NamePriorityDate/TimeAssociated DiagnosisCommentsCT ABDOMEN PELVIS WO/W CON09/14/2023 12:53 PM EDT documented in this encounter Results * CT ABDOMEN PELVIS WO/W CON (09/14/2023 12:53 PM EDT)Anatomical Region LateralityModalityOtherSpecimen (Source)Anatomical Location / Laterality Collection Method / VolumeCollection TimeReceived Time09/14/2023 12:53 PM EDT Narrative 09/14/2023 12:56 PM EDT [facility] ?[address] ? [place] [address] ? CT Scan Report ? Signed ? Patient: YOANA IRENE ?MR#: [id number] ?? : 1955 ?Acct:[id number] ?? Age/Sex: 67 / F ?ADM Date: 09/14/23 ?? Loc: CT ? Attending Dr: Rei Cobos D.O. ? Ordering Physician: Rei Cobos D.O. ?? Date of Service: 09/14/23 ?? Procedure(s): CT abdomen pelvis wo/w con ?? Accession Number(s): [id number] ? cc: Remigio Hoyos M.D. ? [facility] ? [address] ? [place] [address] ? Patient Name: ?? YOANA Richardson ELDER ? MRN: [facility]:[id number] ? date: 1955 ?Sex: F ?? Assigned Patient Location: CT ?? Current Patient Location: CT ?? Accession/Order Number: [id number] ?? Exam Date: 09/14/2023 ??09:20 ?Report Date: [...] 1256 ? DD/ 1253 ? TD/TT: ? Art Glass Setter: Procedure Note Radiology, Radiologist, - 09/14/2023 [place] [address] CT Scan Report Signed Patient: YOANA IRENE AMR#: [id number] : 1955cct:[id number] Age/Sex: 67 / FADM Date: 09/14/23 Loc: CT Attending Dr: Rei Cobos D.O. Ordering Physician: Rei Cobos D.O. Date of Service: 09/14/23 Procedure(s): CT abdomen pelvis wo/w con Accession Number(s): [id number] cc: Remigio Hoyos M.D. The [place] [address] Patient Name: YOANA IRENE MRN: [id number] date: 1955 Sex: F Assigned Patient Location: CT Current Patient Location: CT Accession/Order Number: [id number] Exam Date: 09/14/2023 09:20 Report Date: 09/14/2023 [...] left renal nonenhancing cysts one measuring 1 boarder steam second measuring 8.9 cm deforming the left [...] M.D. Signed By:09/14/23 1256 DD/ 1253 TD/TT: Art Glass Setter: Authorizing ProviderResult TypeResult StatusChristopher Chandrika DOCLINISYNC IMAGINGFinal Result documented in this encounter Visit Diagnoses Not on filedocumented in this encounter Care Teams Team MemberRelationshipSpecialtyStart DateEnd Date Remigio Hoyos MD [address] [place] [phone] PCP - GeneralFamily Medicine07/19/23 Remigio Hoyos MD [address] [place] [address] PCP - ACO Reach06/23/24 Rei Cobos DO [address] [place] [address] Referring RxzwfyoomJwndmwzmk39/1/24documented as of this encounter
--- OUTSIDE RECORDS SUMMARY | 2025-03-17 10:14 | XMS_ITS | Patient Health Record ---
Author Organization [facility] [place] Address [address] [place] [address] Care Team Providers Care Operating Room Technician Name Role Phone Remigio Hoyos MD Primary Care Provider Unavailab le Reason For Referral No Information Problems Problem Type SNOMED Code ICD Code Onset Dates Problem Status W/U Status Risk Notes Problem Anxiety (29055853) Anxiety (F41.9) ActiveconfirmedProblemPsychological assessment (630818408)Psychological assessment (Z00.8)Activeconfirmed Plan Of Treatment No Information Insurance Providers Payer Name Payer Address Payer Phone Subscriber Number Group Number Insured Name Patient Relationship to Insured Coverage Start Date Coverage End Date [place] [address] [place] [address] [id number] Esther Irene - patient is the insured[address] [place], [place] [id number], MarciaSelf - patient is the insured
--- OUTSIDE RECORDS SUMMARY | 2025-03-17 10:15 | XMS_ITS | CCD ---
Author Organization [facility] CliniSyor Care Team Providers Care Station Cleaning Porter Name Role Phone CALVIN, DR REMIGIO Richardson [...] Orta Attending DO Robert Oliver Emergency Provider [phone] MD Remigio Simpson Primary Care Provider [phone] MD Sridhar Hoffman Admit Provider [phone] MD Sridhar Hoffman Attending Provider Remigio Simpson MD Primary Care Provider MD Remigio Simpson Primary Care Provider DO Good Garcia Emergency Provider MD Yoly Hoffmanyemi Admit Provider MD Sridhar Hoffman Attending Provider Remigio Simpson MD Primary Care Provider [phone] Rei Cobos DO Unavailable Unavailable Primary Care Provider Unavailabl e SERA KILLIAN Attending Unavailable Remigio Simpson MD Unavailable Remigio Simpson MD Primary Care Provider [phone] Lionel Still MD Attending Provider [phone] Remigio Simpson MD Attending Provider Remigio Simpson Attending Unavailable Remigio Simpson Admitting Unavailable Rei Cobos Admitting Unavailab le Remigio Simpson Primary Care Unavailable Rei Cobos Attending Unavailab le Remigio Simpson Primary Care Unavailable Lionel Still Attending Unavailab Lionel Saini Admitting Unavailab le Remigio Simpson Primary Care Unavailable Lionel Still Attending Unavailab Sridhar Mcneill Admitting Unavailable Rei Cobos DO Unavailable Rei Cobos DO Unavailable RICHARD CLAYTON Attending Unavailable JADA AGUILLON Attending Unavailable ZAMZAM, BRIANDA Referring Unavailable JADA AGUILLON Attending Unavailable CARYN GASPAR Referring Unavailable IRMA GRECO Admitting Unavailable IRMA GRECO Attending Unavailable SELF, SELF Referring Unavailable Remigio Simpson MD Primary Care Provider Remigio Simpson MD Attending Provider Remigio Simpson MD Primary Care Provider [phone] Remigio Simpson MD Unavailable REI COBOS Attending Unavailable HERSON URIBE Attending Unavailable REMIGIO SIMPSON Attending Unavailable REMIGIO SIMPSON Attending Unavailable HERSON URIBE Attending Unavailable HERSON URIBE Attending Unavailable ALEXANDRIA RAY Attending Unavailable REMIGIO SIMPSON Referring Unavailable MILLER, DENEEN Attending Unavailable NADEREMaris, REMIGIO Referring Unavailable REI COBOS Attending Unavailable ALEXANDRIA RAY Attending Unavailable NADEMILY, REMIGIO Referring Unavailable TATTERSAISSATOU, BETI Attending Unavailable NADEREMaris, REMIGIO Referring Unavailable MILLER, DENEEN Attending Unavailable NADEREMaris, REMIGIO Referring Unavailable ALEXANDRIA RAY Attending Unavailable NADEREMaris, REMIGIO Referring Unavailable TATTERSAISSATOU, BETI Attending Unavailable NADERER, REMIGIO Referring Unavailable TATTERSALL, BETI Attending Unavailable NADERER, REMIGIO Referring Unavailable MILLER, DENEEN Attending Unavailable NADERER, REMIGIO Referring Unavailable TATTERSALL, BETI Attending Unavailable NADERER, REMIGIO Referring Unavailable MILLER, DENEEN Attending Unavailable NADEREMaris, REMIGIO Referring Unavailable MILLER, DENEEN Attending Unavailable NADEREMaris, REMIGIO Referring Unavailable HERSON URIBE Attending Unavailable MILLER, DENEEN Attending Unavailable NADEREMaris, REMIGIO Referring Unavailable REI COBOS Attending Unavailable Remigio Simpson MD Primary Care Provider Rei Cobos DO Unavailable [phone] Remigio Simpson MD Unavailable Allergies Allergy ClassificationReported Allergen(s)Allergy TypeDate of OnsetReaction(s) Facility (20 sources)Alprazolam; Translations: [ALPRAZOLAM]Propensity to adverse rvizvrldp69-11-4917Zbbcddgszopcvg, UnknownNOM[facility] Medications Current Medications MedicationDrug Class(es)DatesSig (Normalized)Sig (Original)atorvastatin 10 mg oral tablet (15 sources)HMG-CoA Reductase InhibitorStart: 08-07-2024 End: 01-36-6508becb 1 tablet by mouth once dailyatorvastatin (Lipitor) 10 MG tablet Indications: Dyslipidemia Take 1 tablet (10 mg) by mouth Daily 30 tablet 08/07/2024 08/07/2025 ActivebusPIRone hydrochloride 7.5 mg oral tablet (1 source)Start: 52-99-8215ymzc 1 tablet by mouth twice dailyBuspirone 7.5 mg tablet Active 7.5 MG PO Twice daily January 18, 2025 12:00am Complies with drugtherapycefdinir 300 mg oral capsule (5 sources)Cephalosporin AntibacterialStart: 04-12-2024 End: 10-60-6326iftp 1 capsule by mouth in the morningcefdinir (Omnicef) 300 MG capsule Indications: Urinary tract infection without hematuria, site unspecified Take 1 capsule (300 mg) by mouth in the morning and 1 capsule (300 mg) before bedtime. Do all this for 10 days. 20 capsule 04/12/2024 04/22/2024 Active clonazePAM 0.25 mg disintegrating oral tablet (1 source)BenzodiazepineStart: 51-81-7784cbpv 1 tablet by mouth once daily as neededClonazepam 0.25 mg tablet,disintegrating Active 0.25 MG PO Daily as needed January 18, 2025 12:00am Complies with drug therapydiazePAM 5 mg oral tablet (20 sources)BenzodiazepineStart: 61-83-9519jfac 1 tablet by mouth once daily as neededDiazepam 5 mg tablet Active 5 MG PO Daily as needed January 18, 2025 12:00am Complies with drug therapyStart: 09-29-2024 End: 94-97-0512htby 1 tablet by mouth four times daily as needed for anxiety diazePAM (Valium) 5 MG tablet Indications: DALILA (generalized anxiety disorder) TAKE 1 TABLET BY MOUTH FOUR TIMES A DAY NEEDED FOR ANXIETY FOR 10 DAYS 40 tablet 01/02/2025 ActiveStart: 09-13-2024 End: 36-35-3983chru 1 tablet by mouth four times daily as needed for anxiety diazePAM (Valium) 2 MG tablet Indications: DALILA (generalized anxiety disorder) (CMS/HCC) Take 1 tablet (2 mg) by mouth 4 (four) times a day as needed for anxiety for up to 10 days 40 tablet / Discontinued (Reorder) Start: 02-17-2024 End: 47-49-8020vhft 1 tablet by mouth four times daily as needed for anxiety diazePAM (Valium) 2 MG tablet Indications: DALILA (generalized anxiety disorder) (CMS/HCC) Take 1 tablet (2 mg) by mouth 4 (four) times a day as needed for anxiety for up to 10 days 40 tablet 02/17/2024ctivedocusate sodium 50 mg / sennosides, longterm 8.6 mg oral tablet (20 sources)Start: 09-20-2024 End: 15-88-4317nark 2 tablets by mouth in the morningsenna-docusate sodium (Senokot-S) 8.6-50 MG tablet Indications: Constipation, unspecified constipation type Take 2 tablets by mouth in the morning and 2 tablets before bedtime. 360 tablet 3 09/20/2024 09/20/2025 ActiveStart: 95-68-1294tike 2 tablets by mouth in the morningsenna-docusate sodium (Senokot-S) 8.6-50 MG tablet Indications: Constipation, unspecified constipation type Take 2 tablets by mouth in the morning and 2 tablets before bedtime. 60 tablet 5 5Active End: 99-74-3674domb 1 tablet by mouth once dailysenna-docusate sodium (Senokot- S) 8.6-50 MG tablet Take 1 tablet by mouth Daily 08/22/2024 Discontinued (Reorder)take 1 tablet by mouth three times dailySENEXON-S 8.6-50 mg per tablet Take 1 tablet by mouth three times a day. Activedonepezil hydrochloride 5 mg oral tablet (11 sources)Start: 05-22-2024 End: 90-59-0485sxan 1 tablet by mouth once daily after breakfastdonepezil (ARICEPT) 5 mg tablet TAKE 1 TABLET BY MOUTH DAILY AFTER BREAKFAST. 90 tablet 1 07/27/2024 Activeescitalopram 5 mg oral tablet (1 source)Serotonin Reuptake InhibitorStart: 86-21-3543pgut 1 tablet by mouth once dailyEscitalopram Oxalate 5 mg tablet Active 5 MG PO Daily January 18, 2025 12:00am Complies with drug therapyhaloperidol 1 mg oral tablet (20 sources)Typical AntipsychoticStart: 01-11-2024 End: 38-66-3978nbcejrmctok (Haldol) 1 MG tablet Indications: Rapidly progressive dementia (CMS/HCC) TAKE 1/2 TABLET (0.5MG) IN THE MORNING AND TAKE 1 TABLET (1MG) AT SUPPER 30 tablet 1 01/11/2024 05/29/2024 Discontinued (Side effects) Start: 09-22-2023 End: 77-10-0146gvms 1 tablet by mouth once dailyHaloperidol 0.5 mg Tablet Discontinued 0.5 MG PO Daily September 22, 2023 12:00am January 18, 2025 10:59amStart: 09-22-2023 End: 12-24-4402xkfv 1 tablet by mouth at bedtimeHaloperidol 1 mg Tablet Discontinued 1 MG PO Bedtime September 30, 2023 12:00am January 18, 2025 10:59am Start: 00-37-5082Nmvqdixjpvd Active 0.5 MG PO every 4 to 5 hours September 14, 2023 12:00amStart: 09-14-2023 End: 94-57-0601ckbg 1 tablet by mouth twice dailyHaloperidol 0.5 mg tablet Discontinued 0.5 MG PO Twice daily September 14, 2023 12:00am September 210:00am 8am and 5pmStart: 09-14-2023 End: 54-65-1721Xgosxefzvfn 1 mg tablet Discontinued 0.5 MG PO every 4 to 5 hours as needed for anxiety August 12:00am January 18, 2025 11:00am haloperidol (HALDOL) 1 mg tablet Take 1 mg by mouth two times a day. September take 0.5mg at 6pm. PRN: 1mg every 4.5 hours ActivehydrOXYzine hydrochloride 25 mg oral tablet (20 sources)AntihistamineStart: 02-14-2024 End: 20-23-7268gqgx 1 tablet by mouth four times daily as needed for anxiety hydrOXYzine HCl (Atarax) 25 MG tablet Indications: DALILA (generalized anxiety disorder) (CMS/HCC) TAKE 1 TABLET (25 MG) BY MOUTH 4 (FOUR) TIMES A DAY NEEDED FOR ANXIETY 360 tablet 2 02/14/2024 05/29/2024 Discontinued (Side effects)Start: 09-14-2023 End: 42-64-4078wten 1 tablet by mouth twice dailyHydroxyzine Hcl 25 mg tablet Discontinued 25 MG PO Twice daily September 14, 2023 12:00am January 18, 2025 11:00am 11am and 6pmStart: 40-36-6660uium 1 tablet by mouth four times daily as needed for anxietyhydrOXYzine HCl (Atarax) 25 MG tablet Indications: DALILA (generalized anxiety disorder) (CMS/HCC) TAKE 1 TABLET (25 MG) BY MOUTH 4 (FOUR) TIMES A DAY NEEDED FOR ANXIETY 360 tablet 2 05/25/2023 Activelactulose 667 mg/ml oral solution (20 sources)Osmotic LaxativeStart: 12-02-2024 End: 28-99-2229vtyr 10 g by mouth at bedtimelactulose (Chronulac) 10 GM/15ML solution Indications: Constipation, chronic Take 15 mL (10 g) by mouth in the morning and 15 mL (10 g) before bedtime. 900 mL 11 04/17/2024 04/17/2025 Active Start: 43-08-9885pkmz 10 g by mouth at bedtimelactulose (Chronulac) 10 GM/15ML solution Take 10 g by mouth at bedtime 12/16/2023 ActiveStart: 09-15-2023 End: 36-34-2107mwqh 1 mL by mouth twice dailyLactulose 10 gram/15 mL solution Discontinued 30 ML PO Twice daily September 15, 2023 12:00am September 30, 2023 7:36am mirtazapine 15 mg oral tablet (20 sources)Start: 09-27-0978ccge 1 tablet by mouth at bedtimemirtazapine (Remeron) 15 MG tablet Indications: MDD (major depressive disorder), recurrent episode,mild (HCC) (CMS/HCC) TAKE 1 TABLET BY MOUTH AT BEDTIME 90 tablet 2 02/28/2024 ActiveStart: 06-08-2023 End: 93-55-7279pbte 1 tablet by mouth once daily at bedtimeMirtazapine 7.5 mg Tablet Discontinued 7.5 MG PO Daily at bedtime June 08, 2023 1:00am January 18, 2025 11:00amOLANZapine 2.5 mg oral tablet (15 sources)Atypical AntipsychoticStart: 09-20-2024 End: 85-75-9005ingg 1 tablet by mouth at bedtimeOLANZapine (ZyPREXA) 2.5 MG tablet Indications: Constipation, unspecified constipation type Take 1 tablet (2.5 mg) by mouth at bedtime 90 tablet 3 09/20/2024 09/20/2025 ActiveOLANZapine (ZyPREXA) 2.5 MG tablet 2.5 mg at bedtime Activeondansetron 4 mg disintegrating oral tablet (3 sources)Serotonin-3 Receptor AntagonistStart: 68-69-3132spje 1 tablet by mouth every six hours as needed for nausea and vomiting and nausea and nausea ondansetron ODT (Zofran-ODT) 4 MG disintegrating tablet Indications: Nausea Take 1 tablet (4 mg) bymouth every 6 (six) hours if needed for nausea or vomiting 30 tablet 3 06/22/2023 Ggqsgg72 hr rivastigmine 0.192 mg/hr transdermal system (1 source)Start: 66-98-7426Hkerivcdncak 4.6 mg/24 hour patch 24 hour Active 4.6 MG TRANSDERML Daily January 18, 2025 12:00am Complies with drug therapy Sennosides (Senna) 8.6 mg capsule (3 sources)Start: 97-33-6633belf 2 capsules by mouth twice dailySennosides (Senna) 8.6 mg capsule Active 17.2 MG PO Twice daily September 13, 2023 11:00pm Start: 28-63-2914xjaf 2 capsules by mouth twice dailySennosides (Senna) 8.6 mg capsule Active 17.2 MG PO Twice daily September 14, 2023 12:00amStart: 09-14-2023 take 1 capsule by mouth twice dailySennosides (Senna) 8.6 mg capsule Active 8.6 MG PO Twice daily September 14, 2023 12:00amsennosides, longterm 8.6 mg oral tablet (2 sources)Start: 45-20-4323rnbu 2 tablets by mouth twice dailySennosides 8.6 mg tablet Active 17.2 MG PO Twice daily January 18, 2025 12:00am Complies with drug therapyStart: 09-14-2023 End: 70-81-1816hvgr 2 capsules by mouth twice dailySennosides (Senna) 8.6 mg capsule Discontinued 17.2 MG PO Twice daily September 14, 2023 12:00am January 18, 2025 11:00amsertraline 25 mg oral tablet (15 sources)Serotonin Reuptake InhibitorStart: 09-20-2024 End: 66-00-8327foun 1 tablet by mouth once dailysertraline (Zoloft) 25 MG tablet Indications: Constipation, unspecified constipation type Take 1 tablet (25 mg) by mouth Daily 90 tablet 3 09/20/2024 09/20/2025 Activetake 1 tablet by mouth once dailysertraline (Zoloft) 25 MG tablet Take 25 mg by mouth Daily Activewheat dextrin 3000 mg powder for oral solution (1 source)Start: 24-29-6313Hgyvzyvdl 100% oral powder as needed for constipation, Refill(s) 0 Start Date: 01/08/23 Status: Ordered Completed/Discontinued Medications MedicationDrug Class(es)DatesSig (Normalized)Sig (Original)clotrimazole 10 mg/ml topical cream (5 sources)Azole AntifungalStart: 08-22-2024 End: 87-90-4427euijfvktdhtl (Lotrimin) 1 % cream Indications: Candidal skin infection Apply topically 2 (two) times a day 30 g 2 08/22/2024 09/13/2024 Discontinuedmelatonin 10 mg oral capsule (18 sources)Start: 12-07-2023 End: 94-56-2758usel 1 capsule by mouth at bedtimeMelatonin 10 MG capsule Indications: Primary insomnia Take 10 mg by mouth at bedtime 30 capsule 5 03/20/2024 Discontinued (Therapy completed)Start: 09-14-2023 End: 36-66-9469dyly 1 tablet by mouth once daily at bedtimeMelatonin 10 mg tablet extended release Discontinued 10 MG PO Daily at bedtime September 14, 2023 12:00am January 18, 2025 11:00ammeloxicam 7.5 mg oral tablet (10 sources)Nonsteroidal Anti-inflammatory DrugStart: 05-25-2023 End: 49-20-2680zcaz 1 tablet by mouth once daily as needed for painMeloxicam 7.5 mg tablet Discontinued 7.5 MG PO Daily as needed for Pain May 25, 2023 1:00am September 14, 2023 10:32pmmorphine sulfate 20 mg/ml oral solution (18 sources)Opioid AgonistStart: 09-14-2023 End: 23-53-6079Iphthqum Concentrate 100 mg/5 mL (20 mg/mL) solution Discontinued 5 MG PO EVERY 1-2 HOURS as neededfor pain September 14, 2023 12:00am January 18, 2025 11:00amStart: 07-24-2023 End: 25-71-0030imxjxfel 100 MG/5ML concentrated solution every 1 (one) hour if needed 07/24/2023 03/20/2024 Discontinued (Therapy completed)Nystatin (6 sources)Polyene AntifungalStart: 08-14-2024 End: 06-22-0012Esfgisqb powder Indications: Skin candidiasis 1 Application in the morning and at noon 1 each 2 08/14/2024 09/13/2024 DiscontinuedStart: 04-29-2332Uznidxbs powder Indications: Skin candidiasis 1 Application in the morning and at noon 1 each 2 08/14/2024 ActiverisperiDONE 1 mg oral tablet (18 sources)Atypical AntipsychoticStart: 06-08-2023 End: 43-72-8707nqxd 1 tablet by mouth at bedtimeRisperidone 0.25 mg Tablet Discontinued 0.25 MG PO Bedtime June 08, 2023 1:00am September 14, 2023 10:33pmStart: 06-08-2023 End: 21-57-3042nuod 1 tablet by mouth twice dailyRisperidone 1 mg tablet Discontinued 1 MG PO Twice daily June 08, 2023 1:00am September 14, 2023 10:33pm Problems Active Problems Problem ClassificationProblemDateDocumented DateEpisodic/ChronicAbdominal pain (1 source)Generalized abdominal ycix21-45-7452YbkeqfyzNyklmau disorders (20 sources)Generalized anxiety disorder; Translations: [Anxiety]Onset: 074683-27-0256PlcnecvMbfxycy dysrhythmias (20 sources)Paroxysmal supraventricular tachycardia; Translations: [Paroxysmal supraventricular tachycardia]Onset: 806481-52-5451FrppcccXedbhobs, dementia, and amnestic and other cognitive disorders (20 sources)Dementia; Translations: [Unspecified dementia without behavioral disturbance]Onset: 09-07-2023 Resolved: 634163-36-8550JjhmqiwGmmcuiwz mellitus without complication (5 sources)Impaired fasting glucose; Translations: [Impaired fasting glycemia] Onset: 35-65-2722HqpnxjjtTxsdpgsff of lipid metabolism (20 sources)Hyperlipidemia, unspecified; Translations: [Dyslipidemia]Onset: 467304-50-6470DkcxbpuFiozyjbjqn disorders (1 source)Gastroesophageal reflux yvkfojb15-16-9680XqyftjiFvpaceo on above:diet controlledGenitourinary symptoms and ill-defined conditions (4 sources)Dysuria; Translations: [Dysuria]20-32-0831YnpdtnwyQxjiwcjoafbce mental health disorders (20 sources)Primary insomnia; Translations: [Primary insomnia]Onset: 10-13-2023 71-04-6090QczklmiMbwl disorders (20 sources)Depressive disorder; Translations: [Depression]Onset: 06-09-2023 00-56-6443KearyxrRmyk disorders (1 source)Mood disorders; Translations: [Depression, unspecified]Onset: 91-91-0931Efothxy (10 sources)Onychomycosis due to dermatophyte ; Translations: [Tinea unguium] 80-13-8816ZulbrisvHihoawltkim deficiencies (20 sources)Moderate protein energy malnutrition; Translations: [Moderate protein-calorie malnutrition]Onset: 378018-48-7883KshitnzSocnmsnggnonfs (20 sources)Primary gonarthrosis, bilateral; Translations: [Bilateral primary osteoarthritis of knee]Onset: 965295-34-0192XcdawfsGkarc aftercare (1 source)Other penitentiary (current) drug therapy; Translations: [OTH [facility] CURRENT DRUG THERAPY]Onset: 97-57-3237JgedxsfiYashe bone disease and musculoskeletal deformities (2 sources)Osteopenia; Translations: [Other specified disorders of bone density and structure, unspecified site]35-93-5510YzdfmlvdUyedb connective tissue disease (16 sources)Pain in toe; Translations: [Pain in right toe(s)]72-56-8384Csbkjdty Other gastrointestinal disorders (5 sources)Other constipation; Translations: [OTHER CONSTIPATION]Onset: 97-86-1322UtwojdynVyvlg gastrointestinal disorders (2 sources)Altered bowel function; Translations: [Change in bowel habit]Onset: 57-10-7216KopsjkfkHdqpp gastrointestinal disorders (1 source)Constipation; Translations: [Constipation, unspecified]08-22-2024 EpisodicOther nervous system disorders (20 sources)Walking disability; Translations: [Difficulty in walking, not elsewhere classified]Onset: 518011-88-4368HuarnkqHnzpc nervous system disorders (20 sources)Secondary parkinsonism; 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, unspecified]Onset: 424412-80-0749DbkjqqpKcfec nutritional; endocrine; and metabolic disorders (1 source)Fntihmanrc22-76-6477RmlygeejQhhkn nutritional; endocrine; and metabolic disorders (1 source)Overweight in adulthood with body mass index of 25 or more but less than 7871-39-7930AhcjmayrQsngc screening for suspected conditions (not mental disorders or infectious disease) (1 source)Stool DNA-based colorectal cancer screening ywcwwlhe15-60-6473Eqmkypmv Other skin disorders (8 sources)Dystrophia unguium; Translations: [Nail dystrophy]50-48-6251Jtnldfsv Residual codes; unclassified (10 sources)REM sleep behavior disorder; Translations: [REM sleep behavior disorder]Onset: 914382-89-9686DzfmdctSpkyryep codes; unclassified (2 sources)REM sleep behavior disorder; Translations: [REM sleep behavior disorder]Onset: 50-36-5775SyzjfjuOkjbtpze codes; unclassified (1 source)Family history of stroke; Translations: [FAMILY HISTORY OF STROKE] Onset: 81-21-6829SekdneggJmqhkcki codes; unclassified (5 sources)Confusional state; Translations: [Disorientation, unspecified] 22-90-1952RhrqrwdiDhhbbree codes; unclassified (1 source)Disorientation, unspecified; Translations: [Unspecified psychosis] 80-47-5763NrktyogrEvkrucss codes; unclassified (1 source)History of vaginal hysterectomy; Translations: [Acquired absence of both cervix and uterus]96-71-8705JvsuiokmDkenfaoy codes; unclassified (1 source)History of adenoidectomy; Translations: [Acquired absence of other organs]48-67-9216QashrxdxTeekvremwrnnb and other psychotic disorders (1 source)Unspecified psychosis not due to a substance or known physiological condition; Translations: [Unspecified psychosis not due to a substance or known physiological condition]Onset: 73-61-7090PghzbqhUaxbvcqyfku; intervertebral disc disorders; other back problems (20 sources)Cervical disc disorder; Translations: [Degeneration of cervical intervertebral disc]Onset: 057937-70-9066JpekqvcDyliiqf and strains (1 source)Neck sprain; Translations: [Sprain of joints and ligaments of unspecified parts of neck, initial encounter]10-48-8255CidgnexzQazdfmy and intentional self-inflicted injury (10 sources)Suicidal thoughts; Translations: [Suicidal ideations]05-25-2023 EpisodicUnclassified (3 sources)CONTACT W/AND (SUSP) EXPOS COVID-19; Translations: [CONTACT W/AND (SUSP) EXPOS COVID-19]Onset: 33-55-5087Ptnmyjpfjzlr (8 sources)Patient on antidepressant monitoring planOnset: 191256-13-0888 Unclassified (8 sources)Baseline PHQ-9Onset: 752002-84-2091Yqsbvgycllhz (2 sources)Med Management; Translations: [Med Management]Onset: 12-15-2024 Unclassified (1 source)Dementia in other diseases classified elsewhere, moderate, with agitation; Translations: [Dementia in other diseases classified elsewhere, moderate, with agitation]Onset: 11-10-2024 Past or Other Problems Problem ClassificationProblemDateDocumented DateEpisodic/ChronicBlindness and vision defects (10 sources)Visual hallucinations; Translations: [Visual hallucinations]Onset: 837343-42-5298QbcmztvfPnkmuwjiaq associated with dizziness or vertigo (20 sources)Dizziness and giddiness; Translations: [Benign paroxysmal positional vertigo]Onset: 037000-33-3451AksqrxacMiwuj and electrolyte disorders (16 sources)Dehydration; Translations: [Dehydration]Onset: EpisodicMalaise and fatigue (20 sources)Other fatigue; Translations: [Asthenia]Onset: EpisodicNausea and vomiting (16 sources)Nausea and vomiting; Translations: [Nausea with vomiting, unspecified]Onset: 261088-54-7292QsvgojkaGrahl aftercare (20 sources)Patient encounter status; Translations: [Other penitentiary (current) drug therapy]Onset: 893427-11-0391EkgqqexkJauep aftercare (20 sources)Long-term current use of drug therapy; Translations: [Other 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 (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) drug therapy]Onset: 977808-17-3823KiarzqylLaoms circulatory disease (20 sources)Orthostatic hypotension; Translations: [Orthostatic hypotension] Onset: 751622-93-5798FizodukqQeuci connective tissue disease (20 sources)Bursitis of olecranon of right elbow; Translations: [Olecranon bursitis, right elbow]Onset: 324788-21-0412IewhxopkIdrjp gastrointestinal disorders (20 sources)Chronic constipation; Translations: [Other constipation]Onset: 256508-23-4720YqrpgbbnUjhdm gastrointestinal disorders (2 sources)Slow transit constipation; Translations: [Slow transit constipation] Onset: 33-47-2282ItlgblehPffue hereditary and degenerative nervous system conditions (20 sources)Mild cognitive disorder ; Translations: [Mild cognitive impairment, so stated]Onset: 06-09-2023 Resolved: 224883-79-6756WqytatzWmwch infections; including parasitic (20 sources)Personal history of other infectious and parasitic diseases; Translations: [Personal history of COVID-19]Onset: 280236-35-4649Dwcxzjxt Other lower respiratory disease (20 sources)Dyspnea; Translations: [Dyspnea, unspecified]Onset: 09-07-2023 19-10-7728XpcoqsreNvqxs nervous system disorders (20 sources)Carpal tunnel syndrome; Translations: [Carpal tunnel syndrome, unspecified upper limb]Onset: 05-28-2023 Resolved: 948611-42-0244KiucdrpUjlqv nervous system disorders (20 sources)Metabolic encephalopathy; Translations: [Metabolic encephalopathy] Onset: 07-24-2023 Resolved: 100476-62-2996LenyxbvSdrnj nervous system disorders (20 sources)Impairment of balance; Translations: [Other abnormalities of gait and mobility]Onset: 061740-55-5162BsrhniscFpifg nervous system disorders (20 sources)Abnormal gait; Translations: [Unsteadiness on feet]Onset: 12-24-2023 25-36-6090BrgmhgkqNdywo non-traumatic joint disorders (4 sources)Pain in right elbow; Translations: [PAIN IN RIGHT ELBOW]Onset: 61-82-1745TqopynlkUopyjypj codes; unclassified (20 sources)Family history of stroke; Translations: [Family history of stroke] Onset: 703248-94-0945FxzhjusqAfmxsmht codes; unclassified (2 sources)Hallucinations, unspecified; Translations: [Hallucinations, unspecified]Onset: 72-21-8244GlowzuudOirgvxij codes; unclassified (2 sources)Pain, unspecified; Translations: [Pain, unspecified]Onset: 06-09-2024 EpisodicSpondylosis; intervertebral disc disorders; other back problems (20 sources)Neck pain; Translations: [Cervicalgia]Onset: 12-31-2022 Resolved: [id number] (1 source)CONTACT W/AND (SUSP) EXPOS COVID-19; Translations: [CONTACT W/AND (SUSP) EXPOS COVID-19]Onset: 45-81-6012Zgjyedzkyymi (1 source)Entire carpal canal (body structure)12-36-5649Ctrrtjb on above:had left doneUnclassified (1 source)Dementia in other diseases classified elsewhere, moderate, with agitation; Translations: [Dementia in other diseases classified elsewhere, moderate, with agitation]Onset: 90-24-8968Pkfwsdx tract infections (20 sources)Recurrent urinary tract infection; Translations: [Urinary tract infection, site not specified]Onset: [id number] Results Test NameValueInterpretationReference RangeFacilityRefillo 10-30-5978Elwhjh [id number] Donnie Bullock 1955 Date Provider Department Center 01/04/2025 404-RAJADA EPPS [facility] Ramone Heal No family history on file Reason for Visit and Comments: Med Refill [[id number]][facility] HospitalRefillon 12-16-2024 [id number] Donnie Bullock 1955 Date Provider Department Center 12/16/2024 404-RAJADA EPPS [facility] Ramone Heal No family history on file Reason for Visit and Comments: Med Refill [[id number]][facility] HospitalOffice Visiton [phone]-up [id number] Donnie Bullock 1955 Date Provider Department Center 12/15/2024 404-JADA AGUILLON [facility] Ramone Heal No family history on file Level of Service:66698 ME OFFICE/OUTPATIENT ESTABLISHED LOW MDM 20 MIN Reason for Visit and Comments: Med Management [[id number]][facility] HospitalRefpr[facility] [id number] Donnie Bullock 1955 Date Provider Department Center 12/07/2024 407-KELBY BREE [facility] Ramone Heal No family history on file Reason for Visit and Comments: Med Refill [[id number]][facility] HospitalRefpr[facility] 12-06-2024 [id number] Donnie Bullock 1955 Provider Department Center 12/06/2024 404-JADA AGUILLON [facility] Ramone Heal No family history on file Reason for Visit and Comments: Med Change Request [411][facility] [id number] Donnie Bullock 1955 Provider Department Center 12/06/2024 407-RAPEKATERINA BREE [facility] Ramone Heal No family history on file Reason for Visit and Comments: Med Change Request [411][facility]36on 11-14-2024 36Approving, but needs appt for additional refills.[facility]36on [id number], but needs appt for additional refills. [facility] HospitalOffice Visiton [phone]-up [id number] Donnie Bullock 1955 Provider Department Center 11/10/2024 404-RASUPRIYA JADA [facility] Ramone Heal No family history on file Level of Service:64172 ME PSYCHIATRIC DIAGNOSTIC EVAL W/MEDICAL SERVICES Reason for Visit and Comments: Psychiatric Evaluation [[id number]][facility] HospitalAbstract on [id number] Donnie Bullock Chun 1955 F Date Provider Department Center 11/06/2024 Rod0-NIKKY LOMAS CCC MICHAEL Comprehensiv No family history on fileNormUC [facility] Center36on [id number] outpatient provider. Only seen in patientH[facility] Hospital36Not outpatient provider. Patient only seen inpatient [facility] HospitalRefpr[facility] [id number] Donnie Bullock Chun 1955 F Date Provider Department Center 07/27/202456081-BTYP [facility] Ramone Heal No family history on file Reason for Visit and Comments: Med Change Request [411][facility]36on 07-18-2024 36Not outpatient providerNoWVUMedicine Barnesville HospitalRefpr[facility] [id number] Donnie Bullock Chun 1955 F Date Provider Department Center 07/17/2024 6[facility] Ramone Heal No family history on file Reason for Visit and Comments: Med Refill [[id number]]NormalWVUMedicine Barnesville HospitalACETAMINOPHEN LEVEL on 98-46-1834EOKZHDFBHBPBD (UG/ML) IN SER/PLAS<24Vnn26-19AboqnwcluaFostoria City HospitalComment on above:Performed By: #### [id number] #### [facility] ([facility]) [address] [place], [place] [address]SOMHK METABOLIC PANELon 90-44-8448Svunl gap [Moles/Vol]12 mmol/L Normal7-20UnFostoria City HospitalComment on above:Performed By: #### [id number] #### [facility] ([facility]) [address] [place], [place] [address]Xadmswb [Mass/Vol]9.7 mg/dLNormal8.6-10.3UnFostoria City HospitalComment on above:Performed By: #### [id number] #### [facility] ([facility]) [address] [place], [place] [address]Hpealnbf [Moles/Vol]106 mmol/QGziwnh81-475ClxgjhmtvhFostoria City HospitalComment on above:Performed By: #### [id number] #### [facility] ([facility]) [address] [place] [address]ZP9 [Moles/Vol]22 mmol/KUnyawm20-80VvcceroikzFostoria City HospitalComment on above:Performed By: #### [id number] #### [facility] ([facility]) [address] [place] [address]Akibewekkx [Mass/Vol]0.61 mg/dLNormal0.60-1.20UnFostoria City HospitalComment on above:Performed By: #### [id number] #### [facility] ([facility]) [address] [place] [address]VEHQOTTHDO FILTRATION RATE ML/MIN/1.73 SQ M.PZQUKGPIZ32.1 mL/min/1.73m*2Normal>60.0UnFostoria City HospitalComment on above: Result Comment: The [facility]???s estimated glomerular filtration rate (eGFR) will [...] group of individuals.Performed By: #### [id number] #### [facility] ([facility]) [address] [place] [address]Dxlwddy [Mass/Vol]103 mg/oUIpkb48-747DdlwynswecFostoria City HospitalComment on above:Performed By: #### [id number] #### [facility] ([facility]) [address] [place] [address]Bleyjztki [Moles/Vol]4.3 mmol/LNormal3.5-5.1UnFostoria City HospitalComment on above:Performed By: #### [id number] #### [facility] ([facility]) [address] [place] [address]Iisupe [Moles/Vol]136 mmol/YVzhjer114-870FfhnaoujpfFostoria City HospitalComment on above:Performed By: #### [id number] #### [facility] ([facility]) [address] [place] [address]Rsxo nitrogen [Mass/Vol]16 mg/dLNormal7-25UnFostoria City HospitalComment on above:Performed By: #### [id number] #### [facility] ([facility]) [address] [place] [address]XXRI NITROGEN/CREATININE (MASS RATIO) IN SER/PLAS26.2Normal [facility] Barnesville HospitalComment on above:Performed By: #### [id number] #### [facility] ([facility]) [address] [place] [address]JZK WITH AUTO DIFFERENTIALon 56-41-2642Fwppsoqjl (Bld) [#/Vol] 0.03 10*3/uLNormal0.00-0.20UnFostoria City HospitalComment on above: Performed By: #### [id number] #### [facility] ([facility]) [address] [place] [address]Wtfrednfe/100 WBC (Bld)0.5 %Normal0.0-1.0UnFostoria City HospitalComment on above:Performed By: #### [id number] #### [facility] ([facility]) [address] [place] [address]Csqjodqyabb (Bld) [#/Vol]0.04 10*3/uLNormal0.00-0.50UnFostoria City HospitalComment on above:Performed By: #### [id number] #### [facility] ([facility]) [address] [place] [address]Vfrzsnozdfc/100 WBC (Bld)0.7 %Normal0.0-6.0UnFostoria City HospitalComment on above:Performed By: #### [id number] #### [facility] ([facility]) [address] [place] [address]Nrqrhujghyp distribution width (RBC) [Ratio]12.2 %Normal 11.5-15.0UnFostoria City HospitalComment on above:Performed By: #### [id number] #### [facility] ([facility]) [address] [place] [address]UVWESVPLLMQ MEAN CORPUSCULAR HEMOGLOBIN CONCENTRATION (G/DL) BY BOAXYVKQF17.8 g/yUQqgjyn16.0-35.0UnFostoria City HospitalComment on above:Performed By: #### [id number] #### [facility] ([facility]) [address] [place] [address]Oipxdtsfiy (Bld) [Volume fraction]40.0 %Fdjjrx59.0-48.0 [facility] HospitalComment on above:Performed By: #### [id number] #### [facility] ([facility]) [address] [place] [address]Muiusvffsu (Bld) [Mass/Vol]13.5 g/mJVgpsad96.0-15.0UnFostoria City HospitalComment on above:Performed By: #### [id number] #### [facility] ([facility]) [address] [place] [address]Vcpubfat granulocytes (Bld) [#/Vol]0.02 10*3/uLNormal0.00-0.20 [facility] HospitalComment on above:Performed By: #### [id number] #### [facility] ([facility]) [address] [place] [address]Meyxhwix granulocytes/100 WBC (Bld)0.3 %Normal0.0-1.0UnFostoria City HospitalComment on above:Performed By: #### [id number] #### [facility] ([facility]) [address] [place], [place] [address]Jrgzptcueph (Bld) [#/Vol]1.37 10*3/uLNormal1.20-4.00UnFostoria City HospitalComment on above:Performed By: #### [id number] #### [facility] ([facility]) [address] [place] [address]Ayeiuloqoyq/100 WBC (Bld)23.7 %Cnhtrd55.0-45.0UnFostoria City HospitalComment on above:Performed By: #### [id number] #### [facility] ([facility]) [address] [place] [place], [place] [address]RPO (RBC) [Entitic mass]30.3 frHccxtd31.0-33.0UnFostoria City HospitalComment on above:Performed By: #### [id number] #### [facility] ([facility]) [address] [facility] [place] [address]DOF (RBC) [Entitic vol]89.7 xSDmcizs04.0-98.0UnFostoria City HospitalComment on above:Performed By: #### [id number] #### [facility] ([facility]) [address] [facility] [place], [place] [address]Kaqehthux (Bld) [#/Vol]0.40 10*3/uLNormal0.10-1.00UnFostoria City HospitalComment on above:Performed By: #### [id number] #### [facility] ([facility]) [address] [facility] [place], [place] [address]Lukymexiu/100 WBC (Bld)6.9 %Normal5.0-12.0UnFostoria City HospitalComment on above:Performed By: #### [id number] #### [facility] ([facility]) [address] [facility] [facility], [place] [address]Izrhicjopqv (Bld) [#/Vol]3.93 10*3/uLNormal1.60-7.60UnFostoria City HospitalComment on above:Performed By: #### [id number] #### [facility] ([facility]) [address] [place] [address]Wadppyqrebs/100 WBC (Bld)67.9 %Ndurfx69.0-72.0UnFostoria City HospitalComment on above:Performed By: #### [id number] #### [facility] ([facility]) [address] [place] [address]SAAE (PER 100 WBCS) BY AUTOMATED COUNT0.0 %Gzlnsy0JlyolykqvgFostoria City HospitalComment on above:Performed By: #### [id number] #### [facility] ([facility]) [address] [place] [address]JXYLMPEQW (10*3/UL) IN BLOOD AUTOMATED [id number] 10*3/uLNormal 150-400UnFostoria City HospitalComment on above:Performed By: #### [id number] #### [facility] ([facility]) [address] [place] [address]BRL (Bld) [#/Vol]4.46 10*6/uLNormal3.80-5.00UnFostoria City HospitalComment on above:Performed By: #### [id number] #### [facility] ([facility]) [address] [place] [address]POJ (Bld) [#/Vol]5.79 10*3/uLNormal4.00-10.60UnFostoria City HospitalComment on above:Performed By: #### [id number] #### [facility] ([facility]) [address] [place] [address]UCMLYZys 20-03-4870NSNNQHYhnzvda is a 68-year-old female presenting to [facility] ED via private auto along with her [...] two inpatient psychiatric admissions for the patient: [facility] on 06/09/24 and [facility] in August of 2023, both for dementia [...] sodium 8.6-50mg PO 2QHS Patient uses the [facility] pharmacy in [place], [place] (P: [phone]; F: [phone]). Patient is reportedly compliant with medications as [...] up very early in the morning (around 1899-7122) with difficulty getting back to sleep. Patient's [...] and consented to referrals being sent to [facility] and to [facility] d/t [facility] currently being at capacity. Patient is not placed on a pink slip at this time and has not required any physical or chemical restraints in the ED. 212 Faxed referrals to [facility] and [facility]. 212 Called [facility]3] and spoke with Meredith, notified her of referral and provided information. 213 Called [facility] and spoke with Pat, notified her of referral. 213 Updated patient and patient's at bedside on referral status. 214 Faxed negative COVID test result to [facility] and [facility]. 220 Kaylen with [facility]3] called with additional questions. All questions answered. Kaylen reported that she will staff this patient with the physician and will call journalists and other writers back with a decision. 2211 (more content not included)...[facility] EDNURSPt to ed with . Per , pt was discharged fro [facility] last Wednesday after spending 26 days there. Wednesday night started to have severe hallucinations, crying uncontrollably, seeing relatives and speaking to them. Was told to return to ED for [facility] evaluation again. Pt alert and oriented x4 in triage, denies SI/HI.[facility] HospitalPROVon 99-32-9549MSDJGQJhraeum of Present Illness Chief Complaint Patient presents [...] thoughts. History provided by: Spouse and patient Pierre Coma Scale Score: 15 History Past Medical [...] 0123 Psychiatric complaint Hallucinations Medical Decision Making IYoly scribe, documented on behalf of Dr. Clayton. I, Reyes Babcock scribe, documented on behalf of Dr. Clayton. [...] with plan for placement. (23:24) Accepted by [facility] in [place] for inpatient psychiatric my Dr. Elvis Forde. Transfer to this other facility. Attestation: Provider Statement ANA: Provider Statement 2nd Scribe. By electronically signing this emergency patient record, the Emergency Physician/VENETIAN BLIND MACHINE OPERATOR/PA-C attests that all entries made into the electronic medical record by the scribe prior to the Physician/VENETIAN BLIND MACHINE OPERATOR/PA-C signature reflect an accurate accounting of the evaluation and care rendered by that Emergency Physician/VENETIAN BLIND MACHINE OPERATOR/PA-C. The Emergency Physician/VENETIAN BLIND MACHINE OPERATOR/PA-C assumes full responsibility for those entries. The Emergency Physician/VENETIAN BLIND MACHINE OPERATOR/PA-C also attests that any patient testing or treatment that was instituted by nursing staff. Richard Clayton MD 07/11/24 0123NormalUniversity Tuscarawas HospitalETHANOLon 07-10-2024 ETHANOL (MG/DL) IN SER/PLAS<10Normal<10UnFostoria City Hospital Comment on above:Performed By: #### [id number] #### [facility] ([facility]) [address] [place], [place] [address]HDGJVGY CALCULATED (%)<0.01NormalUniHarrison Community HospitalComment on above:Performed By: #### [id number] #### [facility] ([facility]) [address] [place], [place] [address]HFRUIEFIYL LEVELon 36-55-1525NLNMURRMFVC (MG/DL) IN SER/PLAS<2 Low4-29UnFostoria City HospitalComment on above:Performed By: #### [id number] ####[facility] ([facility])[address] [place], [place] [address]RIT UA (CLEAN/CATCH) MICROSCOPIC IF INDICATEon 78-32-6848HMONEUKUC URINENegative NEGATIVENOMS HealthcareBLOOD URINETRACE-INEGATIVENOMS HealthcareClarity (U)CLEAR CLEARNOMS HealthcareColor (U)LT. YELLOWYELLOWNOMS HealthcareGLUCOSE URINE UA NegativeNEGATIVE mg/dLNOAL HealthcareInterpretation and review of laboratory resultsAbnormalNOMS HealthcareKetones Ql (U)TRACEAbnormalNEGATIVE mg/dLNOAL HealthcareLeukocyte esterase Test strip Ql (U)NegativeNEGATIVENOMS Healthcare NITRITE URINENegativeNEGATIVENOMS HealthcarepH (U)5.5 [pH]5.0 - 9.0NOMS HealthcarePROTEIN URINENegativeNEG/TRACE mg/dLNOAL HealthcareSPECIFIC GRAVITY URINE1.0151.005 - 1.025NOMS HealthcareURINE MICROSCOPIC INDICATEDYESNOAL HealthcareUROBILINOGEN URINE0.2 EU/dL0.2 - 1.0 EU/dLNOAL HealthcareCLINISYNCNOMS HealthcareTOXICOLOGY PANEL URINEon 20-90-5565IUUXSRFVMRZ+METHAMPHETAMINE SCREEN (PRESENCE) IN URINENegativeNormalNegativeUnFostoria City Hospital Comment on above:Performed By: #### [id number] ####[facility] ([facility])[address] [place], [place] [address]TMEYZLILOMPR PRESENCE IN URINE BY SCREEN METHOD NegativeNormalNegativeUnFostoria City HospitalComment on above: Performed By: #### [id number] ####[facility] ([facility])[address] [place], [place] [address]Kvgeukawcsbdjno Ql (U)NegativeNormalNegativeWVUMedicine Barnesville HospitalComment on above:Performed By: #### [id number] ####[facility] ([facility])[address] [facility], [place] [address]KIREZOHUHSU (PRESENCE) IN URINE BY SCREEN METHODPositiveAbnormalNegativeUnFostoria City HospitalComment on above:Performed By: #### [id number] ####[facility] ([facility])[address] [facility], [place] [address]Bpoiulx Ql (U)NegativeNormalNegative [facility] HospitalComment on above:Performed By: #### [id number] ####[facility] ([facility])[address] [facility], [place] [address]JGIKNEJYD (PRESENCE) IN URINE BY SCREEN METHODNegativeNormalNegativeUnFostoria City HospitalComment on above:Performed By: #### [id number] ####[facility] ([facility])[address] [facility], [place] [address]FXEODTR (PRESENCE) IN URINE BY SCREEN METHODNegativeNormalNegativeWVUMedicine Barnesville HospitalComment on above: Performed By: #### [id number] ####[facility] ([facility])[address] [facility], [place] [address]ACYFUIPWHZRJB PRESENCE IN URINE BY SCREEN METHODNegative NormalNegativeWVUMedicine Barnesville HospitalComment on above:Performed By: #### [id number] ####[facility] ([facility])[address] [place] [address] Propoxyphene Screen Ql (U)NegativeNormalNegativeWVUMedicine Barnesville HospitalComment on above:Performed By: #### [id number] ####[facility] ([facility])[address] [facility], [place] [address]IYCVENRNY ANTIDEPRESSANTS (PRESENCE) IN URINENegativeNormalNegativeWVUMedicine Barnesville HospitalComment on above:Performed By: #### [id number] ####[facility] ([facility])[address] [facility], [place] [address]TJOvi 19-76-4578SGMYEXMOAEI (MIU/L) IN SER/PLAS BY DETECTION LIMIT <= 0.05 MIU/L2.59 mIU/LNormal0.34-5.60[facility] Comment on above:Performed By: #### [id number] ####[facility] ([facility])[address] [place], [place] [address]DLOAATVKEVus 34-16-0263LEMSHFVYB, TOTAL PRESENCE IN URINENegativeNormalNegativeUnFostoria City HospitalComment on above: Order Comment: Microscopics not performed on urines with negative chemical reactions unless requested on original order.Performed By: #### [id number] #### [facility] ([facility]) [address] [place], [place] [address]Ygacweu (U)ClearNormalClearWVUMedicine Barnesville Hospital Comment on above:Order Comment: Microscopics not performed on urines with negative chemical reactions unless requested on original order.Performed By: #### [id number] #### [facility] ([facility]) [address] [place], [place] [address]Xunzp (U)Light-YellowNormalColorless, Yellow, Light-Yellow [facility] HospitalComment on above:Order Comment: Microscopics not performed on urines with negative chemical reactions unless requested on original order.Performed By: #### [id number] #### [facility] ([facility]) [address] [place], [place] [address]GCBVTUL (MG/DL) IN URINENormalNormalNormalUniversCleveland Clinic Medina HospitalComment on above:Order Comment: Microscopics not performed on urines with negative chemical reactions unless requested on original order. Performed By: #### [id number] #### [facility] ([facility]) [address] [place] [place], [place] [address]QVEJPWFUMY PRESENCE IN URINENegativeNormilNegativeWVUMedicine Barnesville HospitalComment on above:Order Comment: Microscopics not performed on urines with negative chemical reactions unless requested on original order. Performed By: #### [id number] #### [facility] ([facility]) [address] [place], [place] [address]Xeyadoh Ql (U)NegativeNormalNegativeUnFostoria City HospitalComment on above:Order Comment: Microscopics not performed on urines with negative chemical reactions unless requested on original order.Performed By: #### [id number] #### [facility] ([facility]) [address] [place], [place] [address]LPGBOOWQU ESTERASE PRESENCE IN URINE BY TEST STRIPNegativeNormal NegativeUnFostoria City HospitalComment on above:Order Comment: Microscopics not performed on urines with negative chemical reactions unless requested on original order.Performed By: #### [id number] #### [facility] ([facility]) [address] [facility], [place] [address]KDRRWJZ PRESENCE IN URINENegativeNormalNegativeUnFostoria City HospitalComment on above:Order Comment: Microscopics not performed on urines with negative chemical reactions unless requested on original order. Performed By: #### [id number] #### [facility] ([facility]) [address] [facility], [place] [address]kH (U)5.5 [pH]Normal5.0-8.0UnFostoria City Hospital Comment on above:Order Comment: Microscopics not performed on urines with negative chemical reactions unless requested on original order.Performed By: #### [id number] #### [facility] ([facility]) [address] [facility], [place] [address]Lcjstaf (U) [Mass/Vol]NegativeNormalNegativeUnFostoria City HospitalComment on above:Order Comment: Microscopics not performed on urines with negative chemical reactions unless requested on original order. Performed By: #### [id number] #### [facility] ([facility]) [address] [facility], [place] [address]Inmcvqzr gravity (U) [Rel density]1.087Utomxu2.010-1.030 [facility] HospitalComment on above:Order Comment: Microscopics not performed on urines with negative chemical reactions unless requested on original order.Performed By: #### [id number] #### [facility] ([facility]) [address] [place], [place] [address]VHTLEMNWSVYD (MG/DL) IN URINENormalNormalNormalUniversCleveland Clinic Medina HospitalComment on above:Order Comment: Microscopics not performed on urines with negative chemical reactions unless requested on original order. Performed By: #### LAB46 #### [facility] (BEAKER) [address], [place] [address]Mkrva Cultureon [id number] identified Cx Nom (U)No Growth 2 Days PERFORMED BY: [facility] [address] [place] [address] PATHOLOGIST [employer] DRIVER DOV JUAREZ M.D.NormalAdventhealth Wauchula Physician GroupComment on above: Performed By: #### GS, CSFCCDIFF, CSF TP, CSF PCR PANEL, CSF GLU, AERC #### [facility] [address] [id number] [id number] [id number] patient is Moderately Stable - Low risk [...] self care as tolerated Outcome: ProgressingNormalUniversity of [facility]30The patient is Moderately Stable - Low risk of patient condition declining or worsening The patient's goals for the shift include restful sleep The clinical goals for the shift include safety Problem: Anxiety Goal: STG-Cooperates with evaluations from physicians/RNs Outcome: Progressing Problem: Confusion Goal: LTG-Take medications as prescribed Outcome: Progressing Pt is progressing with stated goalsNoalUniHarrison Community [id number] you. Will take care of this.[facility]94on [id number] Topic: Activity Therapy Group Date: 07/05/2024 Start Time: 0950 End Time: 1130 Facilitators: Miladys Kaplan ASSISTANT BRANCH OPERATIONS MANAGER Department: [facility] Number of Participants: 8 [...] Donnie Bullock Date of : 1955 MR: [id number] Level of Participation: minimal Quality of Participation: [...] REM sleep behavior disorder MDD (major depressive disorder)NormalWVUMedicine [facility] Hospital94 Attestation signed by MINDY Hunt at 07/05/2024 2:43 PM I agree with the content of this note and have no current revisions. Group Topic: Insight Group Date: 07/05/2024 Start Time: 1015 End Time: 1100 Facilitators: Mindy Weinstein Department: [facility] Number of Participants: 8 Group Focus: anxiety, check in, depression, feeling awareness/expression, and individual meeting Treatment Modality: Individual Therapy and Patient-Centered Therapy Interventions utilized were confrontation, exploration, and support Purpose: express feelings, improve communication skills, and increase insight or knowledge Name: Donnie Bullock Date of : 1955 MR: [id number] Level of Participation: active Quality of Participation: [...] REM sleep behavior disorder MDD (major depressive disorder)NormalWVUMedicine Barnesville HospitalDSon [id number] Attestation signed by Irma Greco DO at [...] PM : 1955 Treating Physician: Dr. Greco [facility] Course: The history of present illness [...] by Dr. Judy Chino, a psychologist in [place]. She then, approximately 1 year ago, began seeing neurology (Dr. Ambrose at [facility]). She also presented to the [facility] the [facility] for a second opinion in April, (MOCA score at that time was 17/30). The patient previously received services through [facility], this care was reported to be for her major neurocognitive disorder. This week the patient was experiencing worsening hallucinations. On Wednesday (06/05/2024) she reported that she killed her 4 kids and grandchildren. She stated she had their head in bags. The next day (06/06/2024) she was increasingly paranoid and told her that the scrap dealer was coming to take her away and she was packing. She experiences visual hallucinations every day, intermittently. In particular, Mrs. Bullock sees babies suffocating and people living in her house. She also reports seeing dogs as well as squirrels on her husbands shoulder when they watch TV together. Furthermore, patient states when she was hospitalized at [facility] for (depressive symptoms) she saw ribbons in [...] ideation, plan and intent. The patient is jew and she enjoys watching mass on TV. She does not like to attend [employer] in person anymore as she does not like to be around people. 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 She comple (more content not included)... [facility] HospitalNURSNOTEon [id number] belongings and medication returned to patient and her Vimal. Discharge instructions explained to patient's . Aircraft Instrument Engineer walked patient and her out to the car to ensure safe departure.[facility] HospitalNURSNOTEPatient attended breakfast in day room and was [...] and calm at this time. Safety checks continued.[facility] HospitalNURSNOTEPt got around 7 hours of sleep throughout the night. No negative behaviors noted.[facility] HospitalRefillon [id number] Donnie Bullock 1955 F Date Provider Department Center 07/05/202419592-TDLUCECI [facility] Ramone Heal No family history on file Reason for Visit and Comments: Med Change Request [411][facility]30on 07-04-2024 30The patient is Moderately Stable - [...] STG-Willingly allowing vitals twice daily Outcome: ProgressingNormalUniversity [facility]30The patient is Moderately Stable - Low [...] 10 per shift Outcome: Not ProgressingNormalUniversity of [facility]94on 07-04-2024 94Group Topic: Exercise Group Date: 07/04/2024 Start Time: 134 End Time: 1435 Facilitators: Josi Astorga ASSISTANT BRANCH OPERATIONS MANAGER Department: [facility] Number of Participants: 5 Group Focus: affirmation, [...] Donnie Bullock Date of : 1955 MR: [id number] Level of Participation: active Quality of Participation: engaged Interactions with others: gave feedback Mood/Affect: bored Progress: Gaining insight or knowledge Response: Pt. Engaged in exercise group alongside ASSISTANT BRANCH OPERATIONS MANAGER and peers. Pt. Participated minimally in group discussions and exercise group. Pt. Refused engagement in group exercise [place] but participated in her chair while watching others. Plan: Pt. Will be encouraged to continue attending therapeutic recreation interventions with the ASSISTANT BRANCH OPERATIONS MANAGER and peers while on the unit. Patients Problems: Patient Active Problem List Diagnosis Neurocognitive disorder with Lewy bodies (CMS/HCC) Slow transit constipation Visual hallucinations Paroxysmal supraventricular tachycardia (CMS/HCC) Personal history of COVID-19 Mixed hyperlipidemiaNormalUniversity of [facility]94 Attestation signed by MINDY Hunt at 07/04/2024 3:04 PM I agree with the content of this note and have no current revisions. Group Topic: Communication Skills Group Date: 07/04/2024 Start Time: 1015 End Time: 1100 Facilitators: Mindy Weinstein Department: [facility] Number of Participants: 2 Group Focus: check in, clarity of thought, communication, daily focus, feeling awareness/expression, and individual meeting Treatment Modality: Individual Therapy and Patient-Centered Therapy Interventions utilized were confrontation, orientation, and support Purpose: express feelings and improve communication skills Name: Donnie Bullock Date of : 1955 MR: [id number] Level of Participation: patient was practicing a relaxation technique in her room Plan: patient will be encouraged to participate in future groups Patients Problems: Patient Active Problem List Diagnosis Neurocognitive disorder with Lewy bodies (CMS/HCC) Slow transit constipation Visual hallucinations Paroxysmal supraventricular tachycardia (CMS/HCC) Personal history of COVID-19 Mixed hyperlipidemiaNormalUniversity of [facility]94Group Topic: Activity Therapy Group Date: 07/04/2024 Start Time: 0945 End Time: 1130 Facilitators: JONATHAN Jorge Department: [facility] Number of Participants: 2 Group Focus: [...] Donnie Bullock Date of : 1955 MR: [id number] Level of Participation: withdrawn Response: Pt. Did not participate in the group activity. Plan: Pt will be encouraged to participate in recreational therapy groups and activities. Patients Problems: Patient Active Problem List Diagnosis Neurocognitive disorder with Lewy bodies (CMS/HCC) Slow transit constipation Visual hallucinations Paroxysmal supraventricular tachycardia (CMS/HCC) Personal history of COVID-19 Mixed hyperlipidemiaNormalUniversity of Memorial Hermann Southwest HospitalNURSNOTEon [id number] assessed and in stable condition. Currently resting in bed. Calm and cooperative with staff at this time. Compliant with HS medication pass. Denies further needs at this time.[facility] HospitalNURSNOTEPt has been calm and cooperative this shift. Pt has been observed smiling at times. Pt ititially was sad and withdrawn this morning, but has been in a more friendly mood this afternoon. Pt visited and they walked the halls together. Checks for safety continue.[facility] NURSNOTEPt has been calm and cooperative this morning. PT compliant with medications ans assessment. Pt showered and ate breakfast. Pt continue to be pleasantly confused at times, and talks about worries with the babies. Pt has been social this morning talking with another patient and attempting to help her with her walker. Checks for safety continue.[facility] Community HospitalNURSNOTEPt slept 7 hours overnight. No negative behaviors to note overnight. Safety checks maintained.[facility]94on Group Topic: Activity Therapy Group Date: 07/03/2024 Start Time: 1400 End Time: 1500 Facilitators: JONATHAN Jorge Department: [facility] Number of Participants: 3 Group Focus: communication, family, feeling awareness/expression, leisure skills, reminiscence, and social skills Treatment Modality: Leisure Development and Patient-Centered Therapy Interventions utilized were active listening, leisure development, reminiscence, story telling, and support Purpose: express feelings, improve communication skills, and increase insight or knowledge Name: Donnie Bullock Date of : 1955 MR: [id number] Level of Participation: withdrawn Response: Pt. Did not participate in the group activity. Plan: Pt will be encouraged to participate in recreational therapy groups and activities. Patients Problems: Patient Active Problem List Diagnosis Neurocognitive disorder with Lewy bodies (CMS/HCC) Slow transit constipation Visual hallucinations Paroxysmal supraventricular tachycardia (CMS/HCC) Personal history of COVID-19 Mixed hyperlipidemiaNormalUniversity of [facility]94Group Topic: Activity Therapy Group Date: 07/03/2024 Start Time: 0945 End Time: 1130 Facilitators: JONATHAN Jorge Department: [facility] Number of Participants: 4 Group Focus: check in, communication, concentration, coping skills, depression, family, feeling awareness/expression, leisure skills, reminiscence, and social skills Treatment Modality: Leisure Development and Patient-Centered Therapy Interventions utilized were active listening, leisure development, reminiscence, story telling, and support Purpose: express feelings, improve communication skills, and increase insight or knowledge Name: Donnie Bullock Date of : 1955 MR: [id number] Level of Participation: withdrawn Response: Pt. Did not participate in the group activity. Plan: Pt will be encouraged to participate in recreational therapy groups and activities. Patients Problems: Patient Active Problem List Diagnosis Neurocognitive disorder with Lewy bodies (CMS/HCC) Slow transit constipation Visual hallucinations Paroxysmal supraventricular tachycardia (CMS/HCC) Personal history of COVID-19 Mixed hyperlipidemiaNormalUniversity of Methodist TexSan HospitalEon [id number] calm and cooperative with assessment and medical front desk specialist. Observed wandering the unit at beginning of the shift. Pt was tearful and states that she missed her and wanted to go home. Pt is currently in bed resting. Safety checks maintained.[facility]NOTW[facility] has been calm and cooperative. Pt's visited and pt appeared to be in good spirits. Pt continues to be confused and anxious, but does not appear to be wandering this shift. Checks for safety will continue.[facility] CenterNOTWesterly Hospital has been calm and cooperative this morning. Pt compliant with medications ans assessments. Pt continues to be pleasantly confused, with flat affect. Pt spoke with her this morning. Checks for safety continue.[facility] Community HospitalNPLAINS REGIONAL MEDICAL CENTERNOTEPt slept approximately 7 hours during the night. She did get out of bed and come out to the day room one time during the night but was easily redirected back to bed. She is sleeping in bed at this time.[facility]30on [id number] patient is Moderately Unstable - Medium risk [...] softener medication by discharge Outcome: ProgressingNormalUniversity of [facility]30Problem: Confusion Goal: STG-Engages in social situations appropriately 3 per shift Outcome: Progressing Problem: Psychotic Symptoms Goal: STG-Will report less than 12 hallucinations per shift by discharge Outcome: Progressing Problem: Constipation Goal: STG-Willingly takes stool softener medication by discharge Outcome: Progressing Problem: Anxiety Goal: STG-Will not pace the floor more than 10 per shift Outcome: Not ProgressingNormalUnitexas [facility] of [facility]94on 07-02-2024 94Group Topic: Feeling Awareness/Expression Group Date: 07/02/2024 Start Time: 899 End Time: 944 Facilitators: Cydney Peacock OT Department: [facility] Number of Participants: 5 Group Focus: check in, coping skills, daily focus, feeling awareness/expression, self-awareness, self-esteem, and social skills Treatment Modality: Leisure Development, Patient-Centered Therapy, and Solution-Focused Therapy Interventions utilized were exploration, leisure development, patient education, reminiscence, and support Purpose: enhance coping skills, regain self-worth, and reinforce self-care Name: Donnie Bullock Date of : 1955 MR: [id number] Level of Participation: moderate Quality of Participation: [...] Personal history of COVID-19 Mixed hyperlipidemiaNormalUniversity of Memorial [facility] Southwest HospitalNURSNOTEon [id number] was sitting in the day room at the beginning of the shift socializing with peers. Pt stated that she had kind of a bad day because her dad yesterday but there was a beautiful service . She also stated that she didn't know what she was going to do without her dad because she has been for 46 years. Aircraft Instrument Engineer spoke with pt about her and reminded that she had spoken with him earlier today on the phone. Aircraft Instrument Engineer asked pt if she was tired. She said that she was but she didn't know where her room was. Aircraft Instrument Engineer assisted pt to her room and assisted her to bed. She is sleeping at this time. Pt was compliant with medications and assessment. She denied pain, depression, anxiety, SI, HI, or the presence of AVH.[facility] Community HospitalLuisrodger has been awake in dayroom all day. [...] was staying here tonite. Now walking around unit.[facility] HospitalNURSNOTEPatient drank all boost with ice cream. Now walking around dayroom.[facility] NURSNOTEPatient put self on floor on hands and knees in dayroom from a chair in front of journalists and other writers. When asked what was wrong, she said I felt light-headed . Assisted per 2 staff members back to chair and VSS. Fluids given and I spoke to patient about eating and drinking more nourishment.[facility] NURSNOTEPatient woke early and found sitting quietly in dayroom. Ate well and then took all her meds. More confused at times but easily reoriented. Now wandering around dayroom.[facility] HospitalNURSNOTEPt was assisted back to bed by the journalists and other writers. Pt stated there were some janky squirrels in here running around a little bit ago . The pt also asked please tell me the truth, are there any animals in here that can hurt me? [facility] HospitalNURSAQUILESEPt just walked out into the day room and when the journalists and other writers said good morning to her she stated it's not so good, this place is a dump. I can't figure out where in [place] we are . The journalists and other writers reminded the pt that she was in [place] and she then said oh, that's right .[facility] NURSNOTEPt slept for approximately 7 hours during the night. She slept from 2300-now without waking. No negative behaviors noted.[facility]30The patient is Moderately Unstable - Medium [...] softener medication by discharge Outcome: ProgressingNormalUniversity of [facility]30The patient is Moderately Unstable - Medium risk of patient condition declining or worsening The patient's goals for the shift include bowel movements The clinical goals for the shift include safety/sleep/rapport Problem: Anxiety Goal: STG-Cooperates with evaluations from physicians/RNs Outcome: Progressing Problem: Psychotic Symptoms Goal: LTG-Decrease hallucinations/delusions/paranoia Outcome: Progressing Problem: Constipation Goal: STG-Willingly takes stool softener medication by discharge Outcome: ProgressingNormalUniHarrison Community Hospital94 Group Topic: Relaxation Group Date: 07/01/2024 Start Time: 904 End Time: 1004 Facilitators: Cydney Peacock OT Department: [facility] Number of Participants: 6 Group Focus: check in, leisure skills, relaxation, self-awareness, and self-esteem Treatment Modality: Leisure Development and Patient-Centered Therapy Interventions utilized were patient education, problem solving, and support Purpose: enhance coping skills, increase insight or knowledge, regain self-worth, and reinforce self-care Name: Donnie Bullock Date of : 1955 MR: [id number] Level of Participation: moderate Quality of Participation: [...] Personal history of COVID-19 Mixed hyperlipidemiaNormalUniversity of Memorial Herm[facility] Southwest HospitalNPLAINS REGIONAL MEDICAL CENTERNOTEon [id number] was out in the day room at the beginning of the shift. She was socializing with peers and intermittently walking around unit. Pt also frequently dozing in chair in day room. Aircraft Instrument Engineer assisted pt to bed. She continues with [...] Pt was compliant with medications and assessment. [facility] Community HospitalMariluPLAINS REGIONAL MEDICAL CENTERAQUILESEI moved patient to 1343 because her roommate [...] room. Appetite fair. Now sitting quietly in dayroom.[facility] Community HospitalNPLAINS REGIONAL MEDICAL CENTERNOTEMoved patient to 1343 so she could restNormalUniversity of Memorial [facility] Southwest HospitalNPLAINS REGIONAL MEDICAL CENTERNOTEPatient dozing sitting in a chair in dayroom, hadn't slept in her bed much due to her roommate. Continues with flat affect. Ate about 75 % of breakfast. Participated in rec therapy group. Now walking around unit. Compliant with am meds and pleasant with staff.[facility] Community HospitalNPLAINS REGIONAL MEDICAL CENTERAQUILESEPt slept approximately 4 hours on [...] reassurance. Pt just came and asked the journalists and other writers if the fish in her room were dangerous. She stated the fish were white, green and gold. Aircraft Instrument Engineer reminded the pt that she was in the hospital and then she realized that I thought I saw fish, but I know they weren't real . The pt is walking in the cronin at this time.[facility] HospitalNLUISNOTEPt was resting in room at shift change. [...] the day room to sleep in a recliner.[facility]30on [id number] patient is Moderately Unstable - Medium risk [...] allowing vitals twice daily Outcome: ProgressingNormalUniversity of [facility]94on Group Topic: Activity Therapy Group Date: 06/30/2024 Start Time: 1400 End Time: 1445 Facilitators: JONATHAN Jorge Department: [facility] Number of Participants: 3 Group Focus: communication, family, feeling awareness/expression, leisure skills, reminiscence, and social skills Treatment Modality: Leisure Development and Patient-Centered Therapy Interventions utilized were active listening, leisure development, reminiscence, story telling, and support Purpose: express feelings, improve communication skills, and increase insight or knowledge Name: Donnie Bullock Date of : 1955 MR: [id number] Level of Participation: withdrawn Response: Pt. Did not participate in the group activity. Plan: Pt will be encouraged to participate in recreational therapy groups and activities. Patients Problems: Patient Active Problem List Diagnosis Neurocognitive disorder with Lewy bodies (CMS/HCC) Slow transit constipation Visual hallucinations Paroxysmal supraventricular tachycardia (CMS/HCC) Personal history of COVID-19 Mixed hyperlipidemiaNormalUniversity of [facility]94 Attestation signed by MINDY Hunt at 06/30/2024 4:11 PM I agree with the content of this note and have no current revisions. Group Topic: Discharge Planning Group Date: 06/30/2024 Start Time: 1015 End Time: 1100 Facilitators: Mindy Weinstein Department: [facility] Number of Participants: 2 Group Focus: check in, communication, discharge education, individual meeting, and safety plan Treatment Modality: Individual Therapy and Patient-Centered Therapy Interventions utilized were mental fitness, patient education, and support Purpose: explore maladaptive thinking and relapse prevention strategies Name: Donnie Bullock Date of : 1955 MR: [id number] Level of Participation: patient was pacing the halls Plan: patient will be encouraged to participate in future groups Patients Problems: Patient Active Problem List Diagnosis Neurocognitive disorder with Lewy bodies (CMS/HCC) Slow transit constipation Visual hallucinations Paroxysmal supraventricular tachycardia (CMS/HCC) Personal history of COVID-19 Mixed hyperlipidemiaNormalUniversbrown memorial hospital of [facility]94Group Topic: Activity Therapy Group Date: 06/30/2024 Start Time: 5 End Time: 1150 Facilitators: JONATHAN Jorge Department: [facility] Number of Participants: 6 Group Focus: art therapy, check in, communication, family, feeling awareness/expression, leisure skills, relaxation, reminiscence, and social skills Treatment Modality: Art Therapy, Leisure Development, and Patient-Centered Therapy Interventions utilized were active listening, leisure development, reminiscence, story telling, and support Purpose: express feelings, improve communication skills, and increase insight or knowledge Name: Donnie Bullock Date of : 1955 MR: [id number] Level of Participation: refused Response: Pt. Refused to participate in the group activity. Plan: Pt will be encouraged to participate in recreational therapy groups and activities. Patients Problems: Patient Active Problem List Diagnosis Neurocognitive disorder with Lewy bodies (CMS/HCC) Slow transit constipation Visual hallucinations Paroxysmal supraventricular tachycardia (CMS/HCC) Personal history of COVID-19 Mixed hyperlipidemiaNormalUniversity of [facility]94Group Topic: Occupational Therapy Group Date: 06/30/2024 Start Time: 929 End Time: 1010 Facilitators: Ana Bryant OT Department: [facility] Number of Participants: 4 Group [...] Donnie Bullock Date of : 1955 MR: [id number] Level of Participation: withdrawn Patients Problems: Patient Active Problem List Diagnosis Neurocognitive disorder with Lewy bodies (CMS/HCC) Slow transit constipation Visual hallucinations Paroxysmal supraventricular tachycardia (CMS/HCC) Personal history of COVID-19 Mixed hyperlipidemiaNormalUniversity of Memorial Hermann Southwest HospitalCB WITH AUTO DIFFERENTIALon [id number] (Bld) [#/Vol]0.03 10*3/uLNormal0.00-0.20 [facility] HospitalComment on above:Performed By: #### [id number] #### [facility] ([facility]) [address] [place], [place] [address]Gmpuqdcro/100 WBC (Bld)0.5 %Normal0.0-1.0UnFostoria City HospitalComment on above:Performed By: #### [id number] #### [facility] ([facility]) [address] [place], [place] [address]Esfxufbahzi (Bld) [#/Vol]0.02 10*3/uLNormal0.00-0.50UnFostoria City HospitalComment on above:Performed By: #### [id number] #### [facility] ([facility]) [address] [place], [place] [address]Bmmvyinahgn/100 WBC (Bld)0.4 %Normal0.0-6.0UnFostoria City HospitalComment on above:Performed By: #### [id number] #### [facility] ([facility]) [address] [place], [place] [address]Biqmlancark distribution width (RBC) [Ratio]12.4 %Normal 11.5-15.0UnFostoria City HospitalComment on above:Performed By: #### [id number] #### [facility] ([facility]) [address] [place], [place] [address]FGSJSBNWPNA MEAN CORPUSCULAR HEMOGLOBIN CONCENTRATION (G/DL) BY SSQBLJOMY92.0 g/zDDvbmiv94.0-35.0UnFostoria City HospitalComment on above:Performed By: #### [id number] #### [facility] ([facility]) [address] [place] [address]Ozbzbhhbab (Bld) [Volume fraction]40.9 %Suvlgr69.0-48.0 [facility] HospitalComment on above:Performed By: #### [id number] #### [facility] ([facility]) [address] [place] [address]Lwvtgrydji (Bld) [Mass/Vol]13.5 g/kDMymhnw73.0-15.0UnFostoria City HospitalComment on above:Performed By: #### [id number] #### [facility] ([facility]) [address] [place] [address]Xqxontlt granulocytes (Bld) [#/Vol]0.01 10*3/uLNormal0.00-0.20 [facility] HospitalComment on above:Performed By: #### [id number] #### [facility] ([facility]) [address] [place] [address]Buclvmtd granulocytes/100 WBC (Bld)0.2 %Normal0.0-1.0UnFostoria City HospitalComment on above:Performed By: #### [id number] #### [facility] ([facility]) [address] [place] [address]Waxdwmzxbbn (Bld) [#/Vol]1.05 10*3/uLLow1.20-4.00UnFostoria City HospitalComment on above:Performed By: #### [id number] #### [facility] ([facility]) [address] [place] [place] [address]Bpkrsnhuhtp/100 WBC (Bld)18.4 %Low20.0-45.0UnFostoria City HospitalComment on above:Performed By: #### [id number] #### [facility] ([facility]) [address] [place] [address]DIA (RBC) [Entitic mass]29.5 uvXifgpj63.0-33.0UnFostoria City HospitalComment on above:Performed By: #### [id number] #### [facility] ([facility]) [address] [place] [address]JZL (RBC) [Entitic vol]89.5 mIRfnpvm89.0-98.0UnFostoria City HospitalComment on above:Performed By: #### [id number] #### [facility] ([facility]) [address] [place] [address]Whbrozikv (Bld) [#/Vol]0.30 10*3/uLNormal0.10-1.00UnFostoria City HospitalComment on above:Performed By: #### [id number] #### [facility] ([facility]) [address] [place] [address]Dlrtpohkg/100 WBC (Bld)5.3 %Normal5.0-12.0UnFostoria City HospitalComment on above:Performed By: #### [id number] #### [facility] ([facility]) [address] [place] [address]Rsfuohgambk (Bld) [#/Vol]4.30 10*3/uLNormal1.60-7.60UnFostoria City HospitalComment on above:Performed By: #### [id number] #### [facility] ([facility]) [address] [place] [address]Nfctyixqkzy/100 WBC (Bld)75.2 %High40.0-72.0UnFostoria City HospitalComment on above:Performed By: #### [id number] #### [facility] ([facility]) [address] [place] [place] [address]UIFZ (PER 100 WBCS) BY AUTOMATED COUNT0.0 %Fmffdt3YdqkvbxexvFostoria City HospitalComment on above:Performed By: #### [id number] #### [facility] ([facility]) [address] [place] [place] [address]VGIHKGEZW (10*3/UL) IN BLOOD AUTOMATED [id number] 10*3/uLNormal 150-400UnFostoria City HospitalComment on above:Performed By: #### [id number] #### [facility] ([facility]) [address] [place] [address]YGU (d) [#/Vol]4.57 10*6/uLNormal3.80-5.00UnFostoria City HospitalComment on above:Performed By: #### [id number] #### [facility] ([facility]) [address] [place] [address]XCI (Bld) [#/Vol]5.71 10*3/uLNormal4.00-10.60UnFostoria City HospitalComment on above:Performed By: #### [id number] #### [facility] ([facility]) [address] [place] [address]BAGYEFPPBWXDH METABOLIC PANELon 44-15-8780Xtjvmlp [Mass/Vol]4.4 g/dLNormal3.5-5.7UnFostoria City HospitalComment on above:Performed By: #### [id number] #### [facility] ([facility]) [address] [place] [address]CFE [Catalytic activity/Vol]48 U/XRsbanl11-825XvbuickbxiFostoria City HospitalComment on above:Performed By: #### [id number] #### [facility] ([facility]) [address] [place] [address]CHC [Catalytic activity/Vol]22 U/LNormal7-52UnFostoria City HospitalComment on above:Performed By: #### [id number] #### [facility] ([facility]) [address] [place], [place] [address]Gcpri gap [Moles/Vol]10 mmol/LNormal7-20UnFostoria City HospitalComment on above:Performed By: #### [id number] #### [facility] ([facility]) [address] [place], [place] [address]OQT [Catalytic activity/Vol]33 U/VHrcgra51-89Clwugukdqj of Bacon Medical CenterComment on above:Performed By: #### [id number] #### [facility] ([facility]) [address] [place] [address]Vejugusdn [Mass/Vol]0.5 mg/dLNormal0.3-1.0UnFostoria City HospitalComment on above:Performed By: #### [id number] #### [facility] ([facility]) [address] [place] [address]Gstobcg [Mass/Vol]9.6 mg/dLNormal8.6-10.3UnFostoria City HospitalComment on above:Performed By: #### [id number] #### [facility] ([facility]) [address] [place] [address]Ccvdwkeu [Moles/Vol]106 mmol/MEqbotk39-302QlyzcsaowkFostoria City HospitalComment on above:Performed By: #### [id number] #### [facility] ([facility]) [address] [place] [address]UH7 [Moles/Vol]28 mmol/SEvqrhh40-51NvuntgvtnaFostoria City HospitalComment on above:Performed By: #### [id number] #### [facility] ([facility]) [address] [place] [address]Eprzfjxznh [Mass/Vol]0.59 mg/dLLow0.60-1.20UnFostoria City HospitalComment on above:Performed By: #### [id number] #### [facility] ([facility]) [address] [place] [address]ARYEWKLZMP FILTRATION RATE ML/MIN/1.73 SQ M.PMJZMMZOI96.9 mL/min/1.73m*2Normal>60.0UnFostoria City HospitalComment on above: Result Comment: The [facility]???s estimated glomerular filtration rate (eGFR) will [...] group of individuals.Performed By: #### [id number] #### [facility] ([facility]) [address] [place], [place] [address]Uuprbra [Mass/Vol]121 mg/sRYtwf34-444HuscxizuqoFostoria City HospitalComment on above:Performed By: #### [id number] #### [facility] ([facility]) [address] [place], [place] [address]Gvsizazcn [Moles/Vol]4.0 mmol/LNormal3.5-5.1UnFostoria City HospitalComment on above:Performed By: #### [id number] #### [facility] ([facility]) [address] [place], [place] [address]Uvbyxdi [Mass/Vol]7.0 g/dLNormal6.0-8.3UnFostoria City HospitalComment on above:Performed By: #### [id number] #### [facility] ([facility]) [address] [place], [place] [address]Zzaxrq [Moles/Vol]140 mmol/IXxqmbw343-772XeihpqxvuhFostoria City HospitalComment on above:Performed By: #### [id number] #### [facility] ([facility]) [address] [place], [place] [address]Jgca nitrogen [Mass/Vol]15 mg/dLNormal7-25UnFostoria City HospitalComment on above:Performed By: #### [id number] #### [facility] ([facility]) [address] [place], [place] [address]ZILE NITROGEN/CREATININE (MASS RATIO) IN SER/PLAS25.4Normal [facility] HospitalComment on above:Performed By: #### [id number] #### [facility] ([facility]) [address] [place], [place] [address]ATYKXZVHvf [id number] pleasant and cooperative with staff and peers. [...] safe with every 15 minute checks per policy.[facility] NURSNOTEPt slept approximately 5 hours last night. Pt was noted to be looking for children in her room, but was then accepting of being in the hospital and sat back down in a chair in her room. Pt currently resting in bed again at this time. Safety maintained.[facility]30on 06-29-2024 30The patient is Moderately Stable - [...] Progressing Goal: LTG-Decrease hallucinations/delusions/paranoia Outcome: ProgressingNormalUniversity of [facility] Hospital94on Group Topic: Activity Therapy Group Date: 06/29/2024 Start Time: 1400 End Time: 1600 Facilitators: JONATHAN Jorge Department: [facility] Number of Participants: 6 Group Focus: communication, concentration, feeling awareness/expression, leisure skills, problem solving, and social skills Treatment Modality: Leisure Development and Patient-Centered Therapy Interventions utilized were active listening, leisure development, problem solving, and support Purpose: express feelings, improve communication skills, and increase insight or knowledge Name: Donnie Bullock Date of : 1955 MR: [id number] Level of Participation: withdrawn Response: Pt. Did not participate in the group activity. Plan: Pt will be encouraged to participate in recreational therapy groups and activities. Patients Problems: Patient Active Problem List Diagnosis Neurocognitive disorder with Lewy bodies (CMS/HCC) Slow transit constipation Visual hallucinations Paroxysmal supraventricular tachycardia (CMS/HCC) Personal history of COVID-19 Mixed hyperlipidemiaNormalUniversity of [facility] Hospital94Group Topic: Activity Therapy Group Date: 06/29/2024 Start Time: 1000 End Time: 1150 Facilitators: AYSE JorgeS Department: [facility] Number of Participants: 5 Group Focus: art therapy, check in, communication, concentration, family, feeling awareness/expression, leisure skills, relaxation, reminiscence, and social skills Treatment Modality: Art Therapy, Leisure Development, and Patient-Centered Therapy Interventions utilized were active listening, leisure development, reminiscence, story telling, and support Purpose: express feelings, improve communication skills, and increase insight or knowledge Name: Donnie Bullock Date of : 1955 MR: [id number] Level of Participation: refused Response: Pt. Refused to participate in the group activity. Plan: Pt will be encouraged to participate in recreational therapy groups and activities. Patients Problems: Patient Active Problem List Diagnosis Neurocognitive disorder with Lewy bodies (CMS/HCC) Slow transit constipation Visual hallucinations Paroxysmal supraventricular tachycardia (CMS/HCC) Personal history of COVID-19 Mixed hyperlipidemiaNormalUniversity of Memorial Hermann Southwest HospitalNURSNOTEon [id number] resting in room at shift change. Pt [...] her assigned bed at this time. Safety maintained.[facility] HospitalNURSNOTEPatient spent some time in the day room and sat with journalists and other writers. Patient was observed reaching at the floor trying to grab non-existent objects and also looked into the hallway and stated those kids are sitting outside in the middle of June . Patient observed talking out loud as if she was having a conversation with another person; journalists and other writers asked patient who she was talking to and what she was seeing and patient responded stating I don't remember . Patient calm and pleasant, visited with and is now attending dinner. Patient denies any needs at this time. Safety checks continued.[facility] HospitalNURSNOTEPatient spending time in her room. Patient cooperative [...] any needs at this time. Safety checks continued.[facility] HospitalNURSNOTE Pt slept approximately 8.5 hours last night. Pt woke up briefly this morning, and reportedly didn't sleep too well. Pt stated, When I wake up and don't know where I am it makes me nervous. Pt provided with emotional support and a warm blanket, and returned to her room to lay back down. PT safety maintained.[facility]30on [id number]: Confusion Goal: LTG-Take medications as prescribed Outcome: Progressing Problem: Depression Goal: LTG-Engage in self care as tolerated Outcome: Progressing Problem: Psychotic Symptoms Goal: LTG-Decrease hallucinations/delusions/paranoia Outcome: Progressing Problem: Fall Risk Goal: LTG-No falls Outcome: ProgressingNormalUniversCleveland Clinic Med[facility] Hospital30The patient is Moderately Stable - Low [...] allowing vitals twice daily Outcome: ProgressingNormalUniversity of [facility]94on Group Topic: Activity Therapy Group Date: 06/28/2024 Start Time: 1400 End Time: 1600 Facilitators: JONATHAN Jorge Department: [facility] Number of Participants: 8 Group Focus: concentration, feeling awareness/expression, leisure skills, problem solving, reminiscence, and social skills Treatment Modality: Leisure Development and Patient-Centered Therapy Interventions utilized were active listening, leisure development, problem solving, reminiscence, story telling, and support Purpose: express feelings, improve communication skills, and increase insight or knowledge Name: Donnie Bullock Date of : 1955 MR: [id number] Level of Participation: minimal Quality of Participation: [...] Personal history of COVID-19 Mixed hyperlipidemiaNormalUniversity of [facility]94Group Topic: Activity Therapy Group Date: 06/28/2024 Start Time: 0950 End Time: 1150 Facilitators: JONATHAN Jorge Department: [facility] Number of Participants: 6 Group [...] Donnie Bullock Date of : 1955 MR: [id number] Level of Participation: refused Response: Pt. Refused to participate in the group activity. Plan: Pt will be encouraged to participate in recreational therapy groups and activities. Patients Problems: Patient Active Problem List Diagnosis Neurocognitive disorder with Lewy bodies (CMS/HCC) Slow transit constipation Visual hallucinations Paroxysmal supraventricular tachycardia (CMS/HCC) Personal history of COVID-19 Mixed hyperlipidemiaNormalUniversity of Memorial Hermann Southwest HospitalNURSNOTEon [id number] walking around the unit at shift change. [...] behaviors or issues to report. Safety checks maintained.[facility] HospitalNURSNOTEPatient A&Ox1, pleasant and cooperative with leaf tinner, medication administration and ADLs. She denies SI/HI/AVH, [...] passing gas. Safety checks maintained per unit policy.[facility] HospitalNURSNOTEPt slept approximately 6.5 hours last night, per the nightly sleep sheet. Pt wandered out of her room around 0600, and was hallucinating children, as she was attempting to tell them to follow me, right this way kids. Pt has otherwise been sitting and standing quietly in the day room. Safety maintained.Normal [facility] HospitalNURSNOTEPt woke up and came out of her room. Pt endorsed pain in her right elbow. Pt given prn tylenol and emotional support. Pt currently sitting quietly in the day room. Pt denies any other needs at this time.[facility]30on [id number] patient is Moderately Stable - Low risk [...] Goal: STG-Willingly allowing vitals twice daily Outcome: ProgressingNormalUniHarrison Community Hospital30The patient is Moderately Stable - Low [...] Goal: STG-Willingly allowing vitals twice daily Outcome: ProgressingHarrison Community Hospital94on Group Topic: Activity Therapy Group Date: 06/27/2024 Start Time: 1400 End Time: 1600 Facilitators: JONATHAN Jorge Department: [facility] Number of Participants: 8 Group Focus: communication, concentration, family, feeling awareness/expression, leisure skills, problem solving, reminiscence, and social skills Treatment Modality: Leisure Development and Patient-Centered Therapy Interventions utilized were active listening, leisure development, problem solving, reminiscence, story telling, and support Purpose: express feelings, improve communication skills, and increase insight or knowledge Name: Donnie Bullock Date of : 1955 MR: [id number] Level of Participation: moderate Quality of Participation: [...] Personal history of COVID-19 Mixed hyperlipidemiaNormalUniversity of [facility]94Group Topic: Activity Therapy Group Date: 06/27/2024 Start Time: 0940 End Time: 1140 Facilitators: JONATHAN Jorge Department: [facility] Number of Participants: 5 Group Focus: art [...] Donnie Bullock Date of : 1955 MR: [id number] Level of Participation: moderate Quality of Participation: cooperative and distractible Interactions with others: gave feedback Mood/Affect: flat Cognition: distracted Progress: Moderate Response: Pt. Participated in the check in group. Pt. Discussed how they are feeling this morning and how they slept last night. Pt. Joined peers at the group table and participated in the [employer] Day banner coloring project. With the encouragement from [...] Personal history of COVID-19 Mixed hyperlipidemiaNormalUniversity of [facility]94Group Topic: Insight Group Date: 06/27/2024 Start Time: 1015 End Time: 1100 Facilitators: MINDY Hunt Department: [facility] Number of Participants: 3 Group Focus: check in, clarity of thought, feeling awareness/expression, and self-awareness Treatment Modality: Individual Therapy, Interpersonal Therapy, and Psychodynamic Psychotherapy Interventions utilized were active listening, clarification, confrontation, exploration, orientation, reality testing, and support Purpose: express feelings Name: Donnie Bullock Date of : 1955 MR: [id number] Level of Participation: Pt was talking with staff Plan: patient will be encouraged to participate in future groups Patients Problems: Patient Active Problem List Diagnosis Neurocognitive disorder with Lewy bodies (CMS/HCC) Slow transit constipation Visual hallucinations Paroxysmal supraventricular tachycardia (CMS/HCC) Personal history of COVID-19 Mixed hyperlipidemiaNormalUniversity of Memorial Hermann Southwest HospitalNURSNOTEon [id number] up ad lynne on unit at shift [...] or issues to report. Safety checks maintained.Normal [facility] HospitalNURSNOTEPatient alert and oriented x2-4, pleasant and cooperative with nurse staff industrial, medication administration and ADLs. rated her depression [...] shift. Safety checks maintained per unit policy.Normal [facility] HospitalNURSNOTEPt has slept for 6 hours overnight. No negative behaviors to note. Pt is currently in room sitting on the side of bed quietly. Safety checks maintained. [id number]: Anxiety Goal: LTG-Overall frequency and intensity of [...] clinical goals for the shift include maintain safetyNormalUniversCleveland Clinic Medina [id number] Topic: Activity Therapy Group Date: 06/26/2024 Start Time: 1400 End Time: 1530 Facilitators: AYSE JorgeS Department: [facility] Number of Participants: 6 Group Focus: communication, concentration, feeling awareness/expression, leisure skills, problem solving, reminiscence, and social skills Treatment Modality: Leisure Development and Patient-Centered Therapy Interventions utilized were active listening, group exercise, leisure development, reminiscence, story telling, and support Purpose: enhance coping skills, express feelings, and improve communication skills Name: Donnie Bullock Date of : 1955 MR: [id number] Level of Participation: moderate Quality of Participation: [...] Personal history of COVID-19 Mixed hyperlipidemiaNormalUniversity of [facility]94Group Topic: Process Group Date: 06/26/2024 Start Time: 1015 End Time: 1100 Facilitators: BRIT Thakkar Department: [facility] Number of Participants: 5 Group Focus: check in, coping skills, and reminiscence During group RT was present and she was also engaging with patients. Interventions utilized were active listening, exploration, reminiscence, and support Purpose: enhance coping skills and express feelings Name: Donnie Bullock Date of : 1955 MR: [id number] Level of Participation: minimal Quality of Participation: exacerbation of symptoms Interactions with others: intrusive Mood/Affect: blunted Cognition: confused Plan: patient will be encouraged to engage in groups Patients Problems: Patient Active Problem List Diagnosis Neurocognitive disorder with Lewy bodies (CMS/HCC) Slow transit constipation Visual hallucinations Paroxysmal supraventricular tachycardia (CMS/HCC) Personal history of COVID-19NormalUniversity of [facility]94Group Topic: Activity Therapy Group Date: 06/26/2024 Start Time: 0945 End Time: 1135 Facilitators: JONATHAN Jorge Department: [facility] Number of Participants: 5 Group Focus: check in, communication, family, feeling awareness/expression, leisure skills, reminiscence, and social skills Treatment Modality: Leisure Development and Patient-Centered Therapy Interventions utilized were active listening, leisure development, reminiscence, story telling, and support Purpose: express feelings, improve communication skills, and increase insight or knowledge Name: Donnie Bullock Date of : 1955 MR: [id number] Level of Participation: withdrawn Response: Pt. Did [...] tachycardia (CMS/HCC) Personal history of COVID-19NormalUniversity of Memorial Hermann Southwest HospitalNPLAINS REGIONAL MEDICAL CENTERNOTEon [id number] alert calm and pleasant. Pt sitting in room alone. Pt appears depressed but mood brightened with approach. Pt became tearful during conversation regarding her because she misses him. Pt rated anxiety at 7 and depression at 8 with 10 being the worst. Pt denies SI/HI and AVH. Safety checks maintained. [facility] HospitalNURSNOTEPatient denies SI, HI, and AVH. Patient complained [...] in the dayroom along with the other patients.[facility] HospitalNURSNOTEPt participating in Rec Therapy along with other patients.[facility] HospitalNURSNOTEPt out in the dayroom with other patients during lunch.[facility] HospitalNURSNOTEPt awoken for AM programming and was compliant [...] maintained and redirection offered by staff during shift.[facility] HospitalNURSNOTEAs of 0530, patient has slept a total of 8 hours. Patient woke up 3 times throughout the night needing reorientation and redirection back to her assigned bed. Patient is currently resting in her assigned room.[facility] HospitalNURSNOTEPatient was in the day area talking to a peer at shift change. Shortly after report, patient began wandering and was exit-seeking. Aircraft Instrument Engineer attempted to reorient patient and let her know her left a message with her. Patient informed journalists and other writers that her is mad at him due [...] her memory. Patient endorses increased confusion lately. Aircraft Instrument Engineer was unable to assess for psychosocial elements outside of the patient denying SI. Patient has not been witnessed responding to internal stimuli this shift. Patient retired to her room shortly after snack and began to rest. She is currently in her assigned bed not exhibiting any signs of distress. [facility]30on [id number] patient's goals for the shift was to stay busy. The clinical goals for the shift include safety and rest. Over the shift, the patient made progress toward the following goals: Problem: Anxiety Goal: STG-Cooperates with evaluations from physicians/RNs Outcome: Progressing Problem: Confusion Goal: LTG-Take medications as prescribed Outcome: Progressing Problem: Psychotic Symptoms Goal: LTG-Return to less restricted environment Outcome: ProgressingNormalUniversity of [facility]30The patient is Moderately Stable - Low risk of patient condition declining or worsening The patient's goals for the shift include keep occupied The clinical goals for the shift include safetyNormalUniversbrown memorial hospital of [facility]30Writer was unable to assess for patient shift goal. The clinical goals for the shift include safety and rest. Over the shift, the patient made progress toward the following goals: Problem: Anxiety Goal: STG-Cooperates with evaluations from physicians/RNs Outcome: Progressing Problem: Confusion Goal: LTG-Take medications as prescribed Outcome: ProgressingNormalUniversity of [facility]94on Group Topic: Activity Therapy Group Date: 06/25/2024 Start Time: 0900 End Time: 1000 Facilitators: Josi Astorga ASSISTANT BRANCH OPERATIONS MANAGER Department: [facility] Number of Participants: 6 Group [...] Donnie Bullock Date of : 1955 MR: [id number] Level of Participation: active Quality of Participation: cooperative and engaged Interactions with others: gave feedback Mood/Affect: appropriate Progress: Gaining insight or knowledge Response: Pt. Engaged in art group alongside ASSISTANT BRANCH OPERATIONS MANAGER and peers. Pt. Participated in group discussion when prompted by peers. Pt. Required assistance but remained appropriate throughout group. Plan: Pt. Will be encouraged to continue attending therapeutic recreation interventions with the ASSISTANT BRANCH OPERATIONS MANAGER and peers while on the unit. Patients Problems: Patient Active Problem List Diagnosis Neurocognitive disorder with Lewy bodies (CMS/HCC) Slow transit constipation Visual hallucinations Paroxysmal supraventricular tachycardia (CMS/HCC) Personal history of COVID-19NormalUniversity of Memorial Hermann Southwest HospitalNURSNOTEon [id number] calm and cooperative today. She is withdrawn, walking the unit, sitting in her room, or sitting in the dayroom, not interacting with peers. She takes her medications as prescribed. She is pleasant and interacts when spoken to but does not initiate conversation. Safety maintained.[facility] HospitalNURSNOTEAs of 0530, patient has slept a total of 5 hours. Patient woke up at least 5 times throughout the night needing reorientation and redirection back to her assigned bed. Patient began exit-seeking at one point but was redirectable. Patient is currently resting in her assigned room.[facility] HospitalNURSNOTEPatient was resting in bed at [...] currently hospitalized for issues with her memory. Aircraft Instrument Engineer was unable to assess for psychosocial elements [...] assigned bed not exhibiting any signs of distress.[id number] was unable to assess for a shift goal. The clinical goals for the shift include safety and rest. Over the shift, the patient made progress toward the following goals: Problem: Anxiety Goal: LTG-Overall frequency and intensity of anxiety symptoms decrease Outcome: Progressing Problem: Confusion Goal: LTG-Take medications as prescribed Outcome: ProgressingNormalUniversity of [facility]94 Group Topic: Exercise Group Date: 06/24/2024 Start Time: 0900 End Time: 0950 Facilitators: JONATHAN Carr Department: [facility] Number of Participants: 6 Group Focus: [...] Donnie Bullock Date of : 1955 MR: [id number] Level of Participation: active Quality of Participation: cooperative and quiet Interactions with others: minimal Mood/Affect: appropriate Progress: Gaining insight or knowledge Response: Pt. Engaged in exercise group alongside ASSISTANT BRANCH OPERATIONS MANAGER and peers. Pt. Participated in group activity with peers while focusing on stretching and mindfulness discussions. Plan: Pt. Will be encouraged to continue attending therapeutic recreation interventions with the ASSISTANT BRANCH OPERATIONS MANAGER and peers while on the unit. Patients Problems: Patient Active Problem List Diagnosis Neurocognitive disorder with Lewy bodies (CMS/HCC) Slow transit constipation Visual hallucinations Paroxysmal supraventricular tachycardia (CMS/HCC) Personal history of COVID-19NormalUniversity of Memorial Herm[facility] Southwest HospitalNURSNOTEon [id number]. Wandering from bedroom to nurse in day room asking when she will be going to meet her . Emotional support given and easily redirected frequently. Staff continues to monitor for safety and redirect as needed.NormalUnFostoria City HospitalNURSNOTEPt. Up ad lynne in day room. Compliant with breakfast after staff set up. Pt. Verbalized she did have a hard stool this morning and accepting of PO PRN miralax with medication administration. Pt. Oriented to self and only. Assessment completed and monitoring for safety this shift. No behaviors noted, some wandering but no exit seeking. Occasionally socializing with peers in day room.NormalUnFostoria City HospitalNURSNOTEAs of 0530, patient has slept a total of 6.75 hours. Patient continues to sleep in blocks with intermittent waking where she is disoriented and easily redirected back to her assigned bed. Patient is currently resting not exhibiting any signs of distress.NormalUnFostoria City HospitalNURSNOTEPatient was resting in bed at change of shift. Patient was calm and cooperative with assessment for the most part despite endorsing being tired. Patient is A&O x 1 but will cooperate when reoriented that she is currently hospitalized for issues with her memory. Aircraft Instrument Engineer was unable to assess for psychosocial elements [...] bed not exhibiting any signs of distress.Normal [facility]30on [id number]: Constipation Goal: STG-Regular elimination pattern by discharge [...] STG-Regular elimination pattern by discharge Outcome: Not ProgressingNormalUniversbrown memorial hospital of [facility]94on 06-23-2024 94Group Topic: Activity Therapy Group Date: 06/23/2024 Start Time: 1440 End Time: 1555 Facilitators: JONATHAN Jorge Department: [facility] Number of Participants: 4 Group Focus: communication, concentration, coping skills, family, feeling awareness/expression, leisure skills, reminiscence, and social skills Treatment Modality: Leisure Development and Patient-Centered Therapy Interventions utilized were active listening, leisure development, reminiscence, story telling, and support Purpose: enhance coping skills, express feelings, improve communication skills, and increase insight or knowledge Name: Donnie Bullock Date of : 1955 MR: [id number] Level of Participation: withdrawn Response: Pt. Did not participate in the group activity. Plan: Pt will be encouraged to participate in recreational therapy groups and activities. Patients Problems: Patient Active Problem List Diagnosis Neurocognitive disorder with Lewy bodies (CMS/HCC) Slow transit constipation Visual hallucinations Paroxysmal supraventricular tachycardia (CMS/HCC) Personal history of COVID-19NormalUniversbrown memorial hospital of [facility]94 Attestation signed by MINDY Hunt at 06/23/2024 4:16 PM I agree with the content of this note and have no current revisions. Group Topic: Coping Skills Group Date: 06/23/2024 Start Time: 1330 End Time: 1415 Facilitators: Mindy Weinstein; Lissy Littlejohn [facility] JO[facility]PH MEDICAL CENTERUriel Department: [facility] [place] Number of Participants: 4 Group Focus: anxiety, check in, coping skills, feeling awareness/expression, and self-awareness Treatment Modality: Patient-Centered Therapy Interventions utilized were active listening, exploration, and support Purpose: enhance coping skills, express feelings, and relapse prevention strategies Name: Donnie Bullock Date of : 1955 MR: [id number] Level of Participation: patient was practicing a relaxation technique in her room Plan: patient will be encouraged to participate in future groups Patients Problems: Patient Active Problem List Diagnosis Neurocognitive disorder with Lewy bodies (CMS/HCC) Slow transit constipation Visual hallucinations Paroxysmal supraventricular tachycardia (CMS/HCC) Personal history of COVID-19NormalUniversity of [facility]94Group Topic: Activity Therapy Group Date: 06/23/2024 Start Time: 1000 End Time: 1135 Facilitators: AYSE JorgeS Department: [facility] Number of Participants: 5 Group Focus: check in, communication, family, feeling awareness/expression, leisure skills, reminiscence, and social skills Treatment Modality: Leisure Development and Patient-Centered Therapy Interventions utilized were active listening, leisure development, reminiscence, and story telling Purpose: express feelings and improve communication skills Name: Donnie Bullock Date of : 1955 MR: [id number] Level of Participation: withdrawn Response: Pt. Did not participate in the group activity. Plan: Pt will be encouraged to participate in recreational therapy groups and activities. Patients Problems: Patient Active Problem List Diagnosis Neurocognitive disorder with Lewy bodies (CMS/HCC) Slow transit constipation Visual hallucinations Paroxysmal supraventricular tachycardia (CMS/HCC) Personal history of COVID-19NormalUniversity of [facility]94Group Topic: Occupational Therapy Group Date: 06/23/2024 Start Time: 929 End Time: 1009 Facilitators: Ana Bryant OT Department: [facility] Number of Participants: 4 Group [...] Donnie Bullock Date of : 1955 MR: [id number] Level of Participation: Patient did not participate in OT group today. Patients Problems: Patient Active Problem List Diagnosis Neurocognitive disorder with Lewy bodies (CMS/HCC) Slow transit constipation Visual hallucinations Paroxysmal supraventricular tachycardia (CMS/HCC) Personal history of COVID-19NormalUniversity of Memorial Hermann Southwest HospitalNURSNOTEon [id number] denies SI, HI and AVH at this time. Pt denies pain at this time. Today, patient had a good visit with her , Vimal. No signs of distress. Pt has been cooperative with staff and peers. Currently, patient is eating dinner in the dayroom along with other patient.[facility] NURSNOTEPt visiting with her in her bedroom.[facility] HospitalNURSNOTEPatient finished washing self without incident. Aircraft Instrument Engineer placed patient's clothes in the washer.[facility] HospitalNURSNOTEPatient is washing self at the bathroom sink in her bedroom. Then will change into her clean clothes. Patient refused assistance from journalists and other writers. Towels, fresh absorbant under garment, and washcloths at sink for patient.[facility] HospitalNURSNOTEPatient ambulating in the unit hallway per self. [facility] HospitalNURSNOTEProvider at bedside speaking with pt.[facility] HospitalNPLAINS REGIONAL MEDICAL CENTERNOTEPt awoken for AM programming and was compliant [...] the shift. Q 15 min safety checks maintained.[facility] HospitalNURSNOTEPt slept approximately 5.5 hours last night. No behaviors or issues to report at this time. Safety checks maintained.[facility] NURSNOTEPt UA was collected at 0300.[facility] NURSNOTEPRN Seroquel 25 mg deemed to be effective. Pt did rest in bed for approximately 3 hours. Pt back up confused looking for her room again.[facility] HospitalURINALYSIS WITH REFLEX CULTUREon [id number], TOTAL PRESENCE IN URINENegativeNormalNegativeWVUMedicine Barnesville Hospital Comment on above:Order Comment: Microscopics not performed on urines with negative chemical reactions unless requested on original order.Performed By: #### [id number] #### [facility] ([facility]) [address] [place], [place] [address]Mdzmhow (U)ClearNormalClearWVUMedicine Barnesville Hospital Comment on above:Order Comment: Microscopics not performed on urines with negative chemical reactions unless requested on original order.Performed By: #### [id number] #### [facility] ([facility]) [address] [place], [place] [address]Jzkcr (U)Light-YellowNormalColorless, Yellow, Light-Yellow [facility] HospitalComment on above:Order Comment: Microscopics not performed on urines with negative chemical reactions unless requested on original order.Performed By: #### [id number] #### [facility] ([facility]) [address] [place], [place] [address]TBMNDTE (MG/DL) IN URINENormalNormalNormalUniversCleveland Clinic Medina HospitalComment on above:Order Comment: Microscopics not performed on urines with negative chemical reactions unless requested on original order. Performed By: #### [id number] #### [facility] ([facility]) [address] [place], [place] [address]NDANWLTDFW PRESENCE IN URINENegativeNormalNegativeWVUMedicine Barnesville HospitalComment on above:Order Comment: Microscopics not performed on urines with negative chemical reactions unless requested on original order. Performed By: #### [id number] #### [facility] ([facility]) [address] [place], [place] [address]Ususnas Ql (U)NegativeNormalNegativeWVUMedicine Barnesville HospitalComment on above:Order Comment: Microscopics not performed on urines with negative chemical reactions unless requested on original order.Performed By: #### [id number] #### [facility] ([facility]) [address] [place], [place] [address]UESFCYTRK ESTERASE PRESENCE IN URINE BY TEST STRIPNegativeNormal NegativeWVUMedicine Barnesville HospitalComment on above:Order Comment: Microscopics not performed on urines with negative chemical reactions unless requested on original order.Performed By: #### [id number] #### [facility] ([facility]) [address] [place], [place] [address]LWEPNYO PRESENCE IN URINENegativeNormalNegativeUnFostoria City HospitalComment on above:Order Comment: Microscopics not performed on urines with negative chemical reactions unless requested on original order. Performed By: #### [id number] #### [facility] ([facility]) [address] [place] [address]dX (U)5.5 [pH]Normal5.0-8.0UnFostoria City Hospital Comment on above:Order Comment: Microscopics not performed on urines with negative chemical reactions unless requested on original order.Performed By: #### [id number] #### [facility] ([facility]) [address] [place] [place], [place] [address]Aoiougk (U) [Mass/Vol]NegativeNormalNegativeUnFostoria City HospitalComment on above:Order Comment: Microscopics not performed on urines with negative chemical reactions unless requested on original order. Performed By: #### [id number] #### [facility] ([facility]) [address] [place], [place] [address]Epkrmelx gravity (U) [Rel density]1.509Zhzqau7.010-1.030 [facility] HospitalComment on above:Order Comment: Microscopics not performed on urines with negative chemical reactions unless requested on original order.Performed By: #### [id number] #### [facility] ([facility]) [address] [place], [place] [address]ZXUUKURGVAVZ (MG/DL) IN URINENormalNormalNormalUniversCleveland Clinic Medina HospitalComment on above:Order Comment: Microscopics not performed on urines with negative chemical reactions unless requested on original order. Performed By: #### [id number] #### [facility] ([facility]) [address] [place], [place] [address]to [id number] patient is Unstable - High likelihood or risk of patient condition declining or worsening The patient's goals for the shift include to see Vimal The clinical goals for the shift include safety, comfort Problem: Confusion Goal: LTG-Interact appropriately within social settings Outcome: Progressing Problem: Depression Goal: LTG-Demonstrate elevation in mood Outcome: Not ProgressingNormalUniversity of [facility] Zlhhcm82Vzo patient is Moderately Stable - Low risk [...] Progressing Goal: LTG-Decrease hallucinations/delusions/paranoia Outcome: ProgressingNormalUniversity of [facility]94on Group Topic: Activity Therapy Group Date: 06/22/2024 Start Time: 1400 End Time: 1540 Facilitators: JONATHAN Jorge Department: [facility] Number of Participants: 3 Group Focus: concentration, family, feeling awareness/expression, leisure skills, problem solving, reminiscence, and social skills Treatment Modality: Leisure Development and Patient-Centered Therapy Interventions utilized were active listening, leisure development, problem solving, reminiscence, story telling, and support Purpose: express feelings, improve communication skills, and increase insight or knowledge Name: Donnie Bullock Date of : 1955 MR: [id number] Level of Participation: refused Response: Pt. Refused to participate in the group activity. Plan: Pt will be encouraged to participate in recreational therapy groups and activities. Patients Problems: Patient Active Problem List Diagnosis Neurocognitive disorder with Lewy bodies (CMS/HCC) Slow transit constipation Visual hallucinations Paroxysmal supraventricular tachycardia (CMS/HCC) Personal history of COVID-19NormalUniversbrown memorial hospital of [facility]94Group Topic: Activity Therapy Group Date: 06/22/2024 Start Time: 1015 End Time: 1145 Facilitators: JONATHAN Jorge Department: [facility] Number of Participants: 3 Group [...] Donnie Bullock Date of : 1955 MR: [id number] Level of Participation: withdrawn Response: Pt. Did not participate in the group activity. Plan: Pt will be encouraged to participate in recreational therapy groups and activities. Patients Problems: Patient Active Problem List Diagnosis Neurocognitive disorder with Lewy bodies (CMS/HCC) Slow transit constipation Visual hallucinations Paroxysmal supraventricular tachycardia (CMS/HCC) Personal history of COVID-19NormalUniversity of [facility]94Group Topic: Activity Therapy Group Date: 06/22/2024 Start Time: 899 End Time: 944 Facilitators: Jessica Pulido, ASSISTANT BRANCH OPERATIONS MANAGER Department: [facility] Number of Participants: 3 Group Focus: check in, clarity of thought, communication, concentration, problem solving, self-awareness, self-esteem, and social skills Treatment Modality: Patient-Centered Therapy Interventions utilized were active listening, clarification, exploration, problem solving, and support Purpose: Pts. Completed [employer] daily crossword and trivia with ASSISTANT BRANCH OPERATIONS MANAGER. Name: Donnie Bullock Date of : 1955 MR: [id number] Level of Participation: withdrawn Quality of Participation: passive Response: Pt. withdrawn during group session. No active participation noted at this time. No active refusal noted. Will continue to encourage active participation in groups with ASSISTANT BRANCH OPERATIONS MANAGER and peers while on the unit. Plan: Pt. Will be encouraged to continue attending therapeutic recreation interventions with the ASSISTANT BRANCH OPERATIONS MANAGER and peers while on the unit. Patients Problems: Patient Active Problem List Diagnosis Neurocognitive disorder with Lewy bodies (CMS/HCC) Slow transit constipation Visual hallucinations Paroxysmal supraventricular tachycardia (CMS/HCC) Personal history of COVID-19NormalUniversity of Memorial Hermann Southwest HospitalNURSNOTEon [id number] ran out of her bedroom screaming that my window just blew out didn't you hear the noise. I'm never going back into that room. Aircraft Instrument Engineer, did assess windows were still intact. PRN Seroquel 25 mg was given.[facility] HospitalNURSNOTEPt calm and cooperative with assessment and HS [...] constantly being re-directed by staff. Safety checks maintained.[facility] HospitalMariluPLAINS REGIONAL MEDICAL CENTERMaria Elena was approached by pt's in the hallway. The pt's shared a few concerns and comments which was relayed to the primary nurse. One of the concerns was to have the provider to call him with updates on Wednesday concerning his .[facility] Hospitalrodger's visited during visitation hours today and journalists and other writers observed patient and her walking around the unit. Patient currently attending dinner in the day room and observed socializing with other patients. Patient expressed that she was having anxiety earlier in the afternoon (see MAR). Patient pleasant and calm at this time. Safety checks continued.[facility] HospitalMariluCentral Harnett Hospitalent observed wandering in and out of her [...] needs at this time. Safety checks continued.Normal [facility] HospitalNPLAINS REGIONAL MEDICAL CENTERNOTEPt slept approximately 6 hours last night. No behaviors or issues to report at this time. Safety checks maintained.[facility]30 on [id number] patient is Moderately Unstable - Medium risk of patient condition declining or worsening The patient's goals for the shift include rest The clinical goals for the shift include safety/comfort Problem: Confusion Goal: LTG-Take medications as prescribed Outcome: Progressing Problem: Psychotic Symptoms Goal: LTG-Alleviate psychotic symptoms Outcome: ProgressingNormalUniversCleveland Clinic Medina Hospital94on Group Topic: Activity Therapy Group Date: 06/21/2024 Start Time: 1420 End Time: 1550 Facilitators: JONATHAN Jorge [facility] of Participants: 4 Group Focus: concentration, feeling awareness/expression, leisure skills, problem solving, reminiscence, and social skills Treatment Modality: Leisure Development and Patient-Centered Therapy Interventions utilized were active listening, leisure development, reminiscence, story telling, and support Purpose: express feelings, improve communication skills, and increase insight or knowledge Name: Donnie Bullock Date of : 1955 MR: [id number] Level of Participation: refused Response: Pt. Refused to participate in the group activity. Plan: Pt will be encouraged to participate in recreational therapy groups and activities. Patients Problems: Patient Active Problem List Diagnosis Neurocognitive disorder with Lewy bodies (CMS/HCC) Slow transit constipation Visual hallucinations Paroxysmal supraventricular tachycardia (CMS/HCC) Personal history of COVID-19NormalUniversity of [facility]94Group Topic: Activity Therapy Group Date: 06/21/2024 Start Time: 944 End Time: 1134 Facilitators: AYSE JorgeS [facility]: [facility] [facility] Number of Participants: 6 Group [...] Donnie Bullock Date of : 1955 MR: [id number] Level of Participation: withdrawn Response: Pt. Did not participate in the group activity. Plan: Pt will be encouraged to participate in recreational therapy groups and activities. Patients Problems: Patient Active Problem List Diagnosis Neurocognitive disorder with Lewy bodies (CMS/HCC) Slow transit constipation Visual hallucinations Paroxysmal supraventricular tachycardia (CMS/HCC) Personal history of COVID-19NormalUniversity of [facility] Southwest HospitalNURSNOTEon [id number] was sitting calmly in the dayroom at [...] to report at this time. Safety checks maintained.[facility] Patient walked unit with during visitation. Visit went well . Patient co-operative with meds and conversation. Steady on her feet. Ate fair for dinner. Patient complained of feeling constipated, prn miralax given.[facility] HospitalNURSNOTEPatient came up to journalists and other writers saying there was a man in her bed. Aircraft Instrument Engineer looked there was no one in her bed. I don`t know if she looked in the room next to her or actually thought she saw someone. Patient laid down when she realized it was safe.[facility] HospitalNURSNOTEPatient standing in doorway looking lost. Patient said `I seen a book so I thought I was at the library.` Reoriented patient, encouraged to come out to dayroom. Patient sat with another peer to socialize and help her with her puzzle.[facility] HospitalNURSNOTEPt slept approximately 7 hours last night. No behaviors or issues to report at this time. Safety checks maintainedNormalUniHarrison Community Hospital NURSNOTEPt wandering around the unit into a [...] but visual hallucinations are present. Safety checks maintained.[facility]30The patient is Moderately Unstable - Medium risk of patient condition declining or worsening The patient's goals for the shift include rest The clinical goals for the shift include safety Problem: Anxiety Goal: LTG-Decrease worry of fearful thoughts and/or behaviors Outcome: Not Progressing Problem: Confusion Goal: LTG-Interact appropriately within social settings Outcome: Not ProgressingNormalUnivers[facility]30Problem: Anxiety Goal: STG-Will not pace the floor more than 10 per shift Outcome: Progressing Problem: Confusion Goal: LTG-Demonstrates an improvement in impulsive behaviors Outcome: Progressing Problem: Confusion Goal: STG-Engages in social situations appropriately 3 per shift Outcome: Not ProgressingNormalUniversity of [facility]94on 06-20-2024 94Group Topic: Activity Therapy Group Date: 06/20/2024 Start Time: 1400 End Time: 1530 Facilitators: JONATHAN Jorge Department: [facility] Number of Participants: 4 Group Focus: communication, concentration, feeling awareness/expression, leisure skills, reminiscence, and social skills Treatment Modality: Leisure Development and Patient-Centered Therapy Interventions utilized were active listening, leisure development, problem solving, reminiscence, story telling, and support Purpose: express feelings, improve communication skills, and increase insight or knowledge Name: Donnie Bullock Date of : 1955 MR: [id number] Level of Participation: withdrawn Response: Pt. Did not participate in the group activity. Plan: Pt will be encouraged to participate in recreational therapy groups and activities. Patients Problems: Patient Active Problem List Diagnosis Neurocognitive disorder with Lewy bodies (CMS/HCC) Slow transit constipation Visual hallucinations Paroxysmal supraventricular tachycardia (CMS/HCC) Personal history of COVID-19NormalUniversity of [facility]94Group Topic: Process Group Date: 06/20/2024 Start Time: 1015 End Time: 1100 Facilitators: BRIT Thakkar Department: [facility] Number of Participants: 2 Group Focus: check in, other working with RT, and reminiscence Interventions utilized were active listening, clarification, other alternative group using therapeutic games, and reminiscence Purpose: enhance coping skills, express feelings, and engaging in therapeutic games. Name: Donnie Bullock Date of : 1955 MR: [id number] Level of Participation: withdrawn to room Plan: patient will be encouraged to engage in activities Patients Problems: Patient Active Problem List Diagnosis Neurocognitive disorder with Lewy bodies (CMS/HCC) Slow transit constipation Visual hallucinations Paroxysmal supraventricular tachycardia (CMS/HCC) Personal history of COVID-19NormalUniversity of [facility]94Group Topic: Activity Therapy Group Date: 06/20/2024 Start Time: 0930 End Time: 1130 Facilitators: JONATHAN Jorge Department: [facility] Number of Participants: 7 Group [...] Donnie Bullock Date of : 1955 MR: [id number] Level of Participation: withdrawn Response: Pt. Did not participate in the group activity. Plan: Pt will be encouraged to participate in recreational therapy groups and activities. Patients Problems: Patient Active Problem List Diagnosis Neurocognitive disorder with Lewy bodies (CMS/HCC) Slow transit constipation Visual hallucinations Paroxysmal supraventricular tachycardia (CMS/HCC) Personal history of COVID-19NormalUniversbrown memorial hospital of [facility] HospitalNURSNOTEon [id number] slept intermittently about 4.5 hours last night. Patient walking around unit occasionally. No behaviors or issues to report at this time. Safety checks maintained.[facility]30on [id number] patient is Moderately Stable - Low risk [...] Goal: STG-Willingly allowing vitals twice daily Outcome: ProgressingNormalUniversbrown memorial hospital of [facility]30The patient is Moderately Stable - Low [...] self care as tolerated Outcome: ProgressingNormalUniversity of [facility]30The patient is Moderately Unstable - Medium risk of patient condition declining or worsening The patient's goals for the shift include [place] The clinical goals for the shift include rapport/safety/rest Problem: Psychotic Symptoms Goal: LTG-Take medications as prescribed Outcome: Progressing Problem: Depression Goal: LTG-Demonstrate elevation in mood Outcome: Not ProgressingNormalUniversity of [facility]94on 06-19-2024 94Group Topic: Coping Skills Group Date: 06/19/2024 Start Time: 1015 End Time: 1100 Facilitators: BRIT Thakkar Department: [facility] Number of Participants: 6 Group Focus: check in and coping skills alternative was engaging with other staff and/or relaxing Interventions utilized were active listening, exploration, reminiscence, and support Purpose: enhance coping skills and trigger / craving management Name: Donnie Bullock Date of : 1955 MR: [id number] Level of Participation: wandering around Plan: patient will be encouraged to engage in groups Patients Problems: Patient Active Problem List Diagnosis Neurocognitive disorder with Lewy bodies (CMS/HCC) Slow transit constipation Visual hallucinations Paroxysmal supraventricular tachycardia (CMS/HCC) Personal history of COVID-19NormalUniversity of [facility]94Group Topic: Life Skills/Enrichment Group Date: 06/19/2024 Start Time: 1100 End Time: 1145 Facilitators: Cydney Peacock OT Department: [facility] Number of Participants: 8 Group Focus: check in, feeling awareness/expression, goals/reality orientation, healthy friendships, leisure skills, self-awareness, and self-esteem Treatment Modality: Leisure Development, Patient-Centered Therapy, Skills Training, and Solution-Focused Therapy Interventions utilized were patient education, problem solving, reminiscence, and support Purpose: enhance coping skills, express feelings, regain self-worth, and reinforce self-care Name: Donnie Bullock Date of : 1955 MR: [id number] Level of Participation: withdrawn Quality of Participation: [...] tachycardia (CMS/HCC) Personal history of COVID-19NormalUniversity of [facility]94Group Topic: Relaxation Group Date: 06/19/2024 Start Time: 0900 End Time: 1010 Facilitators: Josi Astorga ASSISTANT BRANCH OPERATIONS MANAGER Department: [facility] Number of Participants: 6 Group [...] Donnie Bullock Date of : 1955 MR: [id number] Level of Participation: withdrawn Progress: None Response: Pt. Was withdrawn from group. No active participation noted at this time. Plan: Pt. Will be encouraged to attend therapeutic recreation interventions with the [facility] in the future. Patients Problems: Patient Active Problem List Diagnosis Neurocognitive disorder with Lewy bodies (CMS/HCC) Slow transit constipation Visual hallucinations Paroxysmal supraventricular tachycardia (CMS/HCC) Personal history of COVID-19NormalUniversity of Memorial [facility] Southwest HospitalNURSNOTEon [id number] had family visit during the day; patient observed pacing the halls. Patient attended dinner and was compliant with evening medication. Patient calm, cooperative and pleasant. Patient kept to self and denies any needs at this time. Safety checks continued.[facility] HospitalNURSNOTE Patient attended breakfast and then returned to her room. Patient cooperative and compliant with morning assessment and medications. Patient stated I've not had much of an appetite since being here . Patient spoke with her on the phone and stated that today she is feeling tired and lazy . Patient denies SI/HI and hallucinations. Patient denies any needs at this time. Safety checks continued.[facility] HospitalNURSNOTEPt slept approximately 5 hours last night. No behaviors or issues to report at this time. Safety checks maintainedNormalUniversity of [facility]30on [id number] patient is Moderately Unstable - Medium risk [...] allowing vitals twice daily Outcome: ProgressingNormalUniversity of [facility]94 Group Topic: Activity Therapy Group Date: 06/18/2024 Start Time: 944 End Time: 1124 Facilitators: JONATHAN Jorge Department: [facility] Number of Participants: 6 [...] Donnie Bullock Date of : 1955 MR: [id number] Level of Participation: minimal Quality of Participation: [...] tachycardia (CMS/HCC) Personal history of COVID-19NormalUniversity of [facility] Cleburneon [id number] was resting in bed at the beginning [...] doing right now. Where is my room? [facility] real change with patient the rest [...] unit with every 15 minute checks per policy.[facility] Patient sleeps in a little [...] safe on unit with every 15 minute checks.[facility] HospitalNPLAINS REGIONAL MEDICAL CENTERNOTEPt slept approximately 8 hours last night. Pt did not have any instances of wandering after going to bed for the night. Safety checks maintained.[facility] resting in bed at shift change. [...] Pt denies any needs. Safety checks maintained.Normal [facility]30on [id number] patient is Moderately Unstable - Medium risk [...] allowing vitals twice daily Outcome: ProgressingNormalUniversity of [facility]94on Group Topic: Activity Therapy Group Date: 06/17/2024 Start Time: 1025 End Time: 1145 Facilitators: JONATHAN Jorge Department: [facility] Number of Participants: 5 [...] Donnie Bullock Date of : 1955 MR: [id number] Level of Participation: withdrawn Response: Pt. Did not participate in the group activity. Plan: Pt will be encouraged to participate in recreational therapy groups and activities. Patients Problems: Patient Active Problem List Diagnosis Neurocognitive disorder with Lewy bodies (CMS/HCC) Slow transit constipation Visual hallucinations Paroxysmal supraventricular tachycardia (CMS/HCC) Personal history of COVID-19NormalUniversity of Memorial [facility] Southwest HospitalNURSNOTEon [id number] real change with patient the rest of the day. Ate lunch and dinner well. Compliant with medications. Remains isolative to self but did sit with peers at dinner but did not engage. Patient remains safe on unit with every 15 minute checks per policy.[facility] HospitalNURSNOTEPatient awake and out in dayroom early in shift. Remains isolative to self. Eats breakfast well. Spoke with this morning. Patient speaks with staff vaguely but with no relevance. Patient does not know why she is here and wants to go home. Pt is pleasantly confused with zero behavioral issues and remains safe on unit with every 15 minute checks.[facility] HospitalNURSNOTEPt slept approximately 7 hours last night. No behaviors or issues to report.[facility]30The patient is Moderately Unstable - Medium [...] allowing vitals twice daily Outcome: ProgressingNormalUniversity of [facility]94 Group Topic: Activity Therapy Group Date: 06/16/2024 Start Time: 1400 End Time: 1600 Facilitators: AYSE JorgeS Department: [facility] Number of Participants: 4 Group Focus: communication, concentration, family, feeling awareness/expression, leisure skills, problem solving, reminiscence, and social skills Treatment Modality: Leisure Development and Patient-Centered Therapy Interventions utilized were active listening, leisure development, problem solving, reminiscence, story telling, and support Purpose: express feelings, improve communication skills, and increase insight or knowledge Name: Donnie Bullock Date of : 1955 MR: [id number] Level of Participation: withdrawn Response: Pt. Did not participate in the group activity. Plan: Pt will be encouraged to participate in recreational therapy groups and activities. Patients Problems: Patient Active Problem List Diagnosis Neurocognitive disorder with Lewy bodies (CMS/HCC) Slow transit constipation Visual hallucinations Paroxysmal supraventricular tachycardia (CMS/HCC) Personal history of COVID-19NormalUniversity of [facility]94Group Topic: Relaxation Group Date: 06/16/2024 Start Time: 1015 End Time: 1100 Facilitators: BRIT Thakkar Department: [facility] Number of Participants: 1 Group Focus: other relaxation vs game with RT Interventions utilized were support Purpose: assist with relaxation and comfort Name: Donnie Bullock Date of : 1955 MR: [id number] Level of Participation: withdrawn to self and occasionally would wander unit Plan: patient will be encouraged to engage in groups Patients Problems: Patient Active Problem List Diagnosis Neurocognitive disorder with Lewy bodies (CMS/HCC) Slow transit constipation Visual hallucinations Paroxysmal supraventricular tachycardia (CMS/HCC) Personal history of COVID-19NormalUniversity of [facility]94Group Topic: Activity Therapy Group Date: 06/16/2024 Start Time: 1000 End Time: 1140 Facilitators: JONATHAN Jorge Department: [facility] Number of Participants: 11 Group [...] Donnie Bullock Date of : 1955 MR: [id number] Level of Participation: active Quality of Participation: cooperative and engaged Interactions with others: gave feedback Mood/Affect: appropriate Cognition: coherent/clear and goal directed Progress: Gaining insight or knowledge Response: Pt. Actively participated in the Bowling game group. Pt. Independently volunteered to take their turn when ASSISTANT BRANCH OPERATIONS MANAGER asked who wanted to go next. Pt. [...] tachycardia (CMS/HCC) Personal history of COVID-19NormalUniversity of Memorial [facility] Southwest HospitalNURSNOTEon [id number] sitting with peers in day room at [...] any needs at this time. Safety checks maintained.[facility] HospitalNURSNOTEPatient cooperative with staff. Patient took all medications as ordered. Patient ate meals well. Patient had periods of time in and out of her room but also remains very withdrawn when not in her room. Does not participate in group or socialize with peers. Pt denies SI,HI, and AV at this time and remains safe on unit with every 15 minute checks per policy.[facility] HospitalNURSNOTEPt slept approximately 7.5 hours last night per the nightly sleep sheet. Pt needed to be redirected less this evening, and continued to be pleasant each time. Safety checks maintained.[facility]30on [id number] patient is Moderately Stable - Low risk of patient condition declining or worsening The patient's goals for the shift include rest The clinical goals for the shift include safety/ sleep Problem: Depression Goal: LTG-Engage in self care as tolerated Outcome: Not ProgressingNormalUniversity of [facility]94on 06-15-2024 94Group Topic: Symptom Recognition Group Date: 06/15/2024 Start Time: 1015 End Time: 1100 Facilitators: MINDY Hunt Department: [facility] Number of Participants: 2 Group Focus: anxiety, check in, depression, dual diagnosis, feeling awareness/expression, psychiatric education, and self-awareness Treatment Modality: Individual Therapy, Interpersonal Therapy, Motivational interviewing, and Patient-Centered Therapy Interventions utilized were active listening, clarification, confrontation, exploration, patient education, and support Purpose: express feelings and increase insight or knowledge Name: Donnie Bullock Date of : 1955 MR: [id number] Level of Participation: active Quality of Participation: [...] tachycardia (CMS/HCC) Personal history of COVID-19NormalUniversity of [facility]94Group Topic: Activity Therapy Group Date: 06/15/2024 Start Time: 1100 End Time: 1145 Facilitators: JONATHAN Watson Department: [facility] Number of Participants: 3 Group Focus: [...] Donnie Bullock Date of : 1955 MR: [id number] Level of Participation: active Quality of Participation: attentive, cooperative, and engaged Response: Pt. Attended group with ASSISTANT BRANCH OPERATIONS MANAGER and peers at this time. Pt. Integrated well into group setting, and was engaged with ASSISTANT BRANCH OPERATIONS MANAGER and peers, while offering appropriate insight into group discussion. Plan: Pt. Will be encouraged to continue attending therapeutic recreation interventions with the ASSISTANT BRANCH OPERATIONS MANAGER and peers while on the unit. Patients Problems: Patient Active Problem List Diagnosis Neurocognitive disorder with Lewy bodies (CMS/HCC) Slow transit constipation Visual hallucinations Paroxysmal supraventricular tachycardia (CMS/HCC) Personal history of COVID-19NormalUniversity of [facility]94Group Topic: Reminiscence Group Date: 06/15/2024 Start Time: 0900 End Time: 1000 Facilitators: Josi Astorga ASSISTANT BRANCH OPERATIONS MANAGER Department: [facility] Number of Participants: 0 Group [...] Donnie Bullock Date of : 1955 MR: [id number] Level of Participation: withdrawn Progress: None Response: Pt. Was withdrawn from group. No active participation noted at this time. Plan: Pt. Will be encouraged to attend therapeutic recreation interventions with the [facility] in the future. Patients Problems: Patient Active Problem List Diagnosis Neurocognitive disorder with Lewy bodies (CMS/HCC) Slow transit constipation Visual hallucinations Paroxysmal supraventricular tachycardia (CMS/HCC) Personal history of COVID-19NormalUniversity of Memorial Hermann Southwest HospitalNURSNOTEon [id number] walking around unit at shift change. Pt [...] assigned bed at this time. Safety checks maintained.[facility] HospitalNURSNOTEPT doing well today. PT reports slept well, feeling well, denies any pain/discomfort. PT ate well at breakfast and lunch. PT compliant with all medication. PT denies any thoughts of harming self or others. Denies any hallucinations. PT has been calm and cooperative, friendly. PT is A/O x3 Disoriented to situation. PT is currently sleeping in dayroom. PT remains safe and free from harm.[facility] HospitalNURSNOTEPT c/o headache. Stated it started this am but continues to worsen. TYL to be given PRN. PT denies any injury, nausea/vomiting. Vitals WNLNUniversity Hospitals Health SystemNURSNOTEPt slept approximately 6.25 hours per the nightly sleep sheet. Pt needed redirected back to her room a couple times last night. Pt would wake up to use the restroom, and then would forget where her room is. Pt was easily redirected back to bed each time, and was thankful for the assistance. Safety checks maintained.[facility]94on [id number] Topic: Activity Therapy Group Date: 06/14/2024 Start Time: 1400 End Time: 1600 Facilitators: Miladys Kaplan ASSISTANT BRANCH OPERATIONS MANAGER Department: [facility] Number of Participants: 6 Group Focus: communication, concentration, family, feeling awareness/expression, leisure skills, problem solving, reminiscence, and social skills Treatment Modality: Leisure Development and Patient-Centered Therapy Interventions utilized were active listening, leisure development, problem solving, reminiscence, story telling, and support Purpose: express feelings, improve communication skills, and increase insight or knowledge Name: Donnie Bullock Date of : 1955 MR: [id number] Level of Participation: withdrawn Response: Pt. Did not participate in the group activity. Plan: Pt will be encouraged to participate in recreational therapy groups and activities. Patients Problems: Patient Active Problem List Diagnosis Neurocognitive disorder with Lewy bodies (CMS/HCC) Slow transit constipation Visual hallucinations Paroxysmal supraventricular tachycardia (CMS/HCC) Personal history of COVID-19NormalUniversity of [facility]94Group Topic: Activity Therapy Group Date: 06/14/2024 Start Time: 0940 End Time: 1210 Facilitators: JONATHAN oJrge Department: [facility] Number of Participants: 5 Group Focus: check in, communication, concentration, family, feeling awareness/expression, leisure skills, problem solving, reminiscence, and social skills Treatment Modality: Leisure Development and Patient-Centered Therapy Interventions utilized were active listening, leisure development, problem solving, reminiscence, story telling, and support Purpose: express feelings, improve communication skills, and increase insight or knowledge Name: Donnie Bullock Date of : 1955 MR: [id number] Level of Participation: withdrawn Response: Pt. Did not participate in the group activity. Plan: Pt will be encouraged to participate in recreational therapy groups and activities. Patients Problems: Patient Active Problem List Diagnosis Neurocognitive disorder with Lewy bodies (CMS/HCC) Slow transit constipation Visual hallucinations Paroxysmal supraventricular tachycardia (CMS/HCC) Personal history of COVID-19NormalUniversity of [facility]94Group Topic: Process Group Date: 06/14/2024 Start Time: 1015 End Time: 1100 Facilitators: Lissy Littlejohn [facility] Department: [facility] Number of Participants: 3 Group Focus: check in and other getting to know you : alternative was playing cards with other staff and peers. Interventions utilized were assignment, exploration, and support Purpose: enhance coping skills, express feelings, and express reasons for admission and thought behind it. Name: Donnie Bullock Date of : 1955 MR: [id number] Level of Participation: walking the unit and then laying down Plan: patient will be encouraged to participate in activities Patients Problems: Patient Active Problem List Diagnosis ??? Neurocognitive disorder with Lewy bodies (CMS/HCC) ??? Slow transit constipation ??? Visual hallucinations ??? Paroxysmal supraventricular tachycardia (CMS/HCC) ??? Personal history of COVID-19NormalUniversity of [facility] NURSNOTEon [id number] sitting quietly in day room at shift [...] any needs at this time. Safety checks maintained.[facility] HospitalNURSNOTEPatient walks around unit at intervals. Napped this afternoon. No further verbalization of hallucinations to journalists and other writers except this am when she said she saw a bunny at the foot of her bed. Appetite good and took all meds without issue. Now sitting quietly in dayroom. Minimal interaction with peers.[facility] HospitalAllyson patient slept 6 hours last night. She has been awake since 429. During that time she has walked out to the day room several times saying that she is tired and is going to go back to bed. She is awake and resting in bed at this time.[facility] HospitalYumi came out to the dayroom from her room and stated that her friend Negra was in the boat and all tangled up in fishing line and she thought that she was going to . The patient asked the journalists and other writers to come assist her with her getting her friend untangled. The journalists and other writers went with the patient to her room where the journalists and other writers pointed to the bed and said she is over there in the boat. The journalists and other writers and the patient talked about how that was the patient's bed which the patient acknowledged. The patient then agreed that she either was dreaming or hallucinating that the friend had been there in a boat. The patient is resting in bed at this time.[facility] The patient is Moderately Unstable - Medium [...] allowing vitals twice daily Outcome: ProgressingNormalUniversity of [facility]30Original care plan was accidentally auto deleted when RN discharged patient by accident.[id number] Topic: Activity Therapy Group Date: 06/13/2024 Start Time: 1400 End Time: 1530 Facilitators: JONATHAN Jorge Department: [facility] Number of Participants: 4 Group Focus: concentration, leisure skills, problem solving, reminiscence, and social skills Treatment Modality: Leisure Development and Patient-Centered Therapy Interventions utilized were active listening, leisure development, problem solving, reminiscence, and support Purpose: express feelings, improve communication skills, and increase insight or knowledge Name: Donnie Bullock Date of : 1955 MR: [id number] Level of Participation: withdrawn Response: Pt. Did not participate in the group activity. Plan: Pt will be encouraged to participate in recreational therapy groups and activities. Patients Problems: Patient Active Problem List Diagnosis Neurocognitive disorder with Lewy bodies (CMS/HCC) Slow transit constipation Visual hallucinations Paroxysmal supraventricular tachycardia (CMS/HCC) Personal history of COVID-19NormalUniversity of [facility]94 Attestation signed by MINDY Hunt at 06/14/2024 9:34 AM I agree with the content of this note and have no current revisions. Group Topic: Social Work Group Date: 06/13/2024 Start Time: 1015 End Time: 1100 Facilitators: Mindy Weinstein Department: [facility] Number of Participants: 1 Group Focus: affirmation, check in, communication, and feeling awareness/expression Treatment Modality: Individual Therapy, Patient-Centered Therapy, and Spiritual Interventions utilized were exploration and support Purpose: enhance coping skills Name: Donnie Bullock Date of : 1955 MR: [id number] Level of Participation: patient was practicing a relaxation technique in her room Plan: patient will be encouraged to participate in future groups Patients Problems: Patient Active Problem List Diagnosis Neurocognitive disorder with Lewy bodies (CMS/HCC) Slow transit constipation Visual hallucinations Paroxysmal supraventricular tachycardia (CMS/HCC) Personal history of COVID-19NormalUniversity of [facility]94Group Topic: Activity Therapy Group Date: 06/13/2024 Start Time: 944 End Time: 1140 Facilitators: AYSE JorgeS Department: [facility] Number of Participants: 4 Group Focus: check in, communication, concentration, feeling awareness/expression, leisure skills, problem solving, reminiscence, and social skills Treatment Modality: Leisure Development and Patient-Centered Therapy Interventions utilized were active listening, leisure development, problem solving, reminiscence, and support Purpose: express feelings, improve communication skills, and increase insight or knowledge Name: Donnie Bullock Date of : 1955 MR: [id number] Level of Participation: refused Response: Pt. Refused to participate in the group activity. Plan: Pt will be encouraged to participate in recreational therapy groups and activities. Patients Problems: Patient Active Problem List Diagnosis Neurocognitive disorder with Lewy bodies (CMS/HCC) Slow transit constipation Visual hallucinations Paroxysmal supraventricular tachycardia (CMS/HCC) Personal history of COVID-19NormalUniversity of [facility] Southwest HospitalNURSNOTEon [id number] was sleeping in bed at the beginning [...] the side of her bed at this time.[facility] HospitalNURSNOTEPatient hasn't wandered unit as much today. She [...] wants to go home. Minimal interaction with peers.[facility] HospitalNURSNOTEThe patient has been up several more times looking for family members. She slept approximately 6 hours this shift.[facility] NURSNOTEPatirodger has been up in the day room for approximately the last hour. She heard a staff member and another patient talking about being at [facility] in [place]. The patient asked the journalists and other writers, they said we are in [place], but we are in [place] . The patient believed that she was in [place] at a play that her daughter is in. She said that she had just watched them practicing and that the play was getting ready to start. The patient pointed over near the nurses station and said that was where they had been practicing for the play. Aircraft Instrument Engineer explained to the patient that she was in the hospital in [place]. The patient did not know why she [...] asked to call her or daughter. The journalists and other writers explained that she could call them in the morning. The patient then asked what time it was and was surprised to find that it was one o'clock in the morning. The patient stated no wonder I'm so tired . The journalists and other writers showed her to her room and got her a warm blanket. The patient is sleeping at this time.[facility]30 on [id number] patient is Moderately Unstable - Medium risk [...] Goal: LTG-Interact appropriately within social settings Outcome: ProgressingNormalUniversbrown memorial hospital of [facility]30The patient is Moderately Stable - Low [...] Outcome: Progressing Goal: STG-Allows ADL assistance Outcome: ProgressingNormalUniversbrown memorial hospital of [facility]94on Group Topic: Activity Therapy Group Date: 06/12/2024 Start Time: 1400 End Time: 1520 Facilitators: Miladys Kaplan ASSISTANT BRANCH OPERATIONS MANAGER Department: [facility] Number of Participants: 6 Group Focus: communication, concentration, leisure skills, problem solving, reminiscence, and social skills Treatment Modality: Leisure Development and Patient-Centered Therapy Interventions utilized were active listening, leisure development, problem solving, and reminiscence Purpose: improve communication skills and increase insight or knowledge Name: Donnie Bullock Date of : 1955 MR: [id number] Level of Participation: withdrawn Response: Pt. Did not participate in the group activity. Plan: Pt will be encouraged to participate in recreational therapy groups and activities. Patients Problems: Patient Active Problem List Diagnosis Neurocognitive disorder with Lewy bodies (CMS/HCC) Slow transit constipation Visual hallucinations Paroxysmal supraventricular tachycardia (CMS/HCC) Personal history of COVID-19NormalUniversity of [facility]94Group Topic: Activity Therapy Group Date: 06/12/2024 Start Time: 0945 End Time: 1125 Facilitators: JONATHAN Jorge Department: [facility] Number of Participants: 4 Group [...] Donnie Bullock Date of : 1955 MR: [id number] Level of Participation: withdrawn Response: Pt. Did not participate in the group activity. Plan: Pt will be encouraged to participate in recreational therapy groups and activities. Patients Problems: Patient Active Problem List Diagnosis Neurocognitive disorder with Lewy bodies (CMS/HCC) Slow transit constipation Visual hallucinations Paroxysmal supraventricular tachycardia (CMS/HCC) Personal history of COVID-19NormalUniversity of Bacon Medical CenterCBC WITH AUTO DIFFERENTIALon [id number] (Bld) [#/Vol]0.03 10*3/uLNormal0.00-0.20 [facility] HospitalComment on above:Performed By: #### [id number] #### [facility] ([facility]) [address] [place], [place] [address]Hjtbnydud/100 WBC (Bld)0.6 %Normal0.0-1.0UnFostoria City HospitalComment on above:Performed By: #### [id number] #### [facility] ([facility]) [address] [place], [place] [address]Slblxuqotyg (Bld) [#/Vol]0.08 10*3/uLNormal0.00-0.50UnFostoria City HospitalComment on above:Performed By: #### [id number] #### [facility] ([facility]) [address] [place], [place] [address]Gwllojcaxdl/100 WBC (Bld)1.7 %Normal0.0-6.0UnFostoria City HospitalComment on above:Performed By: #### [id number] #### [facility] ([facility]) [address] [place], [place] [address]Mxgllalnsoe distribution width (RBC) [Ratio]12.3 %Normal 11.5-15.0UnFostoria City HospitalComment on above:Performed By: #### [id number] #### [facility] ([facility]) [address] [place], [place] [address]RFCDOJBFKNM MEAN CORPUSCULAR HEMOGLOBIN CONCENTRATION (G/DL) BY CGXEQOSPB54.7 g/yDNeexcj61.0-35.0UnFostoria City HospitalComment on above:Performed By: #### [id number] #### [facility] ([facility]) [address] [place], [place] [address]Hxdadhvvkf (Bld) [Volume fraction]40.1 %Vbjntu36.0-48.0 [facility] CenterComment on above:Performed By: #### [id number] #### [facility] ([facility]) [address] [facility] [place], [place] [address]Aqpdniajwe (Bld) [Mass/Vol]13.1 g/oVXlcixc76.0-15.0UnFostoria City HospitalComment on above:Performed By: #### [id number] #### [facility] ([facility]) [address] [facility] [place], [place] [address]Utfvvbqq granulocytes (Bld) [#/Vol]0.01 10*3/uLNormal0.00-0.20 [facility] HospitalComment on above:Performed By: #### [id number] #### [facility] ([facility]) [address] [facility] [place], [place] [address]Blkwqoci granulocytes/100 WBC (Bld)0.2 %Normal0.0-1.0UnFostoria City HospitalComment on above:Performed By: #### [id number] #### [facility] ([facility]) [address] [facility] [place], [place] [address]Vtjchxcgpeo (Bld) [#/Vol]2.19 10*3/uLNormal1.20-4.00UnFostoria City HospitalComment on above:Performed By: #### [id number] #### [facility] ([facility]) [address] [place], [place] [address]Rcaccogwyiw/100 WBC (Bld)46.2 %High20.0-45.0UnFostoria City HospitalComment on above:Performed By: #### [id number] #### [facility] ([facility]) [address] [facility] [place], [place] [address]BYJ (RBC) [Entitic mass]29.8 wxSxlrke64.0-33.0UnFostoria City HospitalComment on above:Performed By: #### [id number] #### [facility] ([facility]) [address] [facility] [place], [place] [address]QGN (RBC) [Entitic vol]91.3 eSWviysz26.0-98.0UnFostoria City HospitalComment on above:Performed By: #### [id number] #### [facility] ([facility]) [address] [place] [address]Dtvdwmzyi (Bld) [#/Vol]0.36 10*3/uLNormal0.10-1.00UnFostoria City HospitalComment on above:Performed By: #### [id number] #### [facility] ([facility]) [address] [place] [address]Bcnmedrds/100 WBC (Bld)7.6 %Normal5.0-12.0UnFostoria City HospitalComment on above:Performed By: #### [id number] #### [facility] ([facility]) [address] [place] [address]Azssaqhewat (Bld) [#/Vol]2.07 10*3/uLNormal1.60-7.60UnFostoria City HospitalComment on above:Performed By: #### [id number] #### [facility] ([facility]) [address] [place] [address]Jjezjobcomg/100 WBC (Bld)43.7 %Xdfraz91.0-72.0UnFostoria City HospitalComment on above:Performed By: #### [id number] #### [facility] ([facility]) [address] [place] [address]LAWF (PER 100 WBCS) BY AUTOMATED COUNT0.0 %Knzkob0MdxuufpklzFostoria City HospitalComment on above:Performed By: #### [id number] #### [facility] ([facility]) [address] [place] [address]SWRNWLXXF (10*3/UL) IN BLOOD AUTOMATED DVKNP554 10*3/uLNormal 150-400UnFostoria City HospitalComment on above:Performed By: #### [id number] #### [facility] ([facility]) [address] [place] [address]JNR (Bld) [#/Vol]4.39 10*6/uLNormal3.80-5.00UnFostoria City HospitalComment on above:Performed By: #### [id number] #### [facility] ([facility]) [address] [place] [address]QFV (Bld) [#/Vol]4.74 10*3/uLNormal4.00-10.60UnFostoria City HospitalComment on above:Performed By: #### [id number] #### [facility] ([facility]) [address] [place] [address]BDMYTNLTxp [id number] was resting in bed at the beginning [...] she turns that way the little girl disappears.[facility] HospitalNURSNOTEPatient A&Ox4 pleasant and cooperative with leaf tinner, medication administration, and ADLs. The patient denies [...] shift. Safety checks maintained per unit policy. [facility] HospitalNURSNOTEPt slept for about 6 hours. No negative behaviors observed. No signs/symptoms of respiratory distress noted. Safety maintained.[facility]30on [id number] patient is Moderately Stable - Low risk of patient condition declining or worsening The patient's goals for the shift include I don't know The clinical goals for the shift include safety Problem: Agitation Goal: LTG-Decrease in targeted symptoms Outcome: Not Progressing Pt is not progressing towards this goal yet.[facility]30The patient is Moderately Unstable - Medium risk of patient condition declining or worsening The patient's goals for the shift include rest The clinical goals for the shift include safety Problem: Agitation Goal: LTG-Take medications as prescribed Outcome: Not Progressing Goal: LTG-Sleeps through the night Outcome: Not Progressing Pt is not progressing towards these goals yet.[facility]94on [id number] Topic: Reality Orientation Group Date: 06/11/2024 Start Time: 1014 End Time: 1100 Facilitators: MINDY Hunt Department: [facility] Number of Participants: 3 Group Focus: check in, clarity of thought, and goals/reality orientation Treatment Modality: Individual Therapy, Interpersonal Therapy, Patient-Centered Therapy, and Psychodynamic Psychotherapy Interventions utilized were active listening, confrontation, exploration, reality testing, and support Purpose: express feelings Name: Donnie Bullock Date of : 1955 MR: [id number] Level of Participation: Pt was talking on the phone and practicing a relaxation technique Plan: patient will be encouraged to participate in future groups Patients Problems: Patient Active Problem List Diagnosis Neurocognitive disorder with Lewy bodies (CMS/HCC) Slow transit constipation Visual hallucinations Paroxysmal supraventricular tachycardia (CMS/HCC) Personal history of COVID-19NormalUniversity of [facility]94Group Topic: Reminiscence Group Date: 06/11/2024 Start Time: 854 End Time: 0945 Facilitators: Cydney Peacock OT Department: [facility] Number of Participants: 4 Group Focus: check in, feeling awareness/expression, reminiscence, self-awareness, and self-esteem Treatment Modality: Patient-Centered Therapy and Solution-Focused Therapy Interventions utilized were patient education, problem solving, and reminiscence Purpose: enhance coping skills, regain self-worth, and reinforce self-care Name: Donnie Bullock Date of : 1955 MR: [id number] Level of Participation: moderate Quality of Participation: [...] tachycardia (CMS/HCC) Personal history of COVID-19NormalUniversity of Memorial Hermann Southwest HospitalNPLAINS REGIONAL MEDICAL CENTERNOTE [id number] was cooperative with meds and assessment. Pt was sitting quietly in the dayroom. Pt c/o a headache. PRN Tylenol given. Pt says she was seeing ribbons out the corner of her eyes. Pt was observed wandering around the unit at times. Pt seemed more depressed tonight than last night.[facility] HospitalNURSNOTEPatient quietly wanders the unit, needs directed to dayroom table at meal. Eats very small healthy meals.Patient sits quietly and dozes at times. Will initiate conversation first when she needs something.,if not journalists and other writers initiates conversation. Patient did not sundown today.[facility] HospitalNURSNOTEPatient encouraged to come out for breakfast. Co-operative with meds and conversation. Requested to talk with this morning. They talked on the phone for 5 minutes, all went well.[facility] NURSNOTEPt slept for about 5 hours. Pt woke up and was found staring at the wall in the corner of her room. No signs/symptoms of respiratory distress noted. Safety maintained.[facility]94on Attestation signed by MINDY Hunt at 06/11/2024 9:22 AM I agree with the content of this note and have no current revisions. Group Topic: Social Work Group Date: 06/10/2024 Start Time: 1015 End Time: 1100 Facilitators: Mindy Weinstein Department: [facility] Number of Participants: 2 Group Focus: check in, feeling awareness/expression, individual meeting, and self-awareness Treatment Modality: Individual Therapy and Patient-Centered Therapy Interventions utilized were exploration and problem solving Purpose: express feelings and increase insight or knowledge Name: Donnie Bullock Date of : 1955 MR: [id number] Level of Participation: active Quality of Participation: [...] Paroxysmal supraventricular tachycardia (CMS/HCC) Personal history of COVID-19NormalUniversbrown memorial hospital [facility]94Group Topic: Relaxation Group Date: 06/10/2024 Start Time: 0900 End Time: 1000 Facilitators: Cydney Peacock OT Department: [facility] Number of Participants: 7 Group Focus: check in, coping skills, relaxation, self-awareness, and self-esteem Treatment Modality: Leisure Development, Skills Training, and Solution-Focused Therapy Interventions utilized were patient education and problem solving Purpose: enhance coping skills, regain self-worth, and reinforce self-care Name: Donnie Bullock Date of : 1955 MR: [id number] Level of Participation: withdrawn Quality of Participation: Patient withdrawn during group session. No active participation or integration with peers or OT at this time. No active refusal noted. Plan to encourage pt to attend groups and engage with other peers while on the unit. Patients Problems: There is no problem list on file for this patient.[facility] HospitalCOMPREHENSIVE METABOLIC PANELon [id number] [Mass/Vol]3.9 g/dLNormal3.5-5.7UnFostoria City HospitalComment on above:Performed By: #### [id number] #### [facility] ([facility]) [address] [place], [place] [address]SJH [Catalytic activity/Vol]44 U/WPespba89-500NwjsgwmrceFostoria City HospitalComment on above:Performed By: #### [id number] #### [facility] ([facility]) [address] [place], [place] [address]GBA [Catalytic activity/Vol]15 U/LNormal7-52UnFostoria City HospitalComment on above:Performed By: #### [id number] #### [facility] ([facility]) [address] [place], [place] [address]Bnrww gap [Moles/Vol]14 mmol/LNormal7-20UnFostoria City HospitalComment on above:Performed By: #### [id number] #### [facility] ([facility]) [address] [place], [place] [address]XEY [Catalytic activity/Vol]17 U/LHfcqum09-59NfhjmmienlFostoria City HospitalComment on above:Performed By: #### [id number] #### [facility] ([facility]) [address] [place], [place] [address]Jvgmfymmu [Mass/Vol]0.5 mg/dLNormal0.3-1.0UnFostoria City HospitalComment on above:Performed By: #### [id number] #### [facility] ([facility]) [address] [place], [place] [address]Axpvffg [Mass/Vol]9.4 mg/dLNormal8.6-10.3UnFostoria City HospitalComment on above:Performed By: #### [id number] #### [facility] ([facility]) [address] [place], [place] [address]Yrmcjoyi [Moles/Vol]106 mmol/VZmrzdl92-255PxjxwezlvqFostoria City HospitalComment on above:Performed By: #### [id number] #### [facility] ([facility]) [address] [place] [address]RZ3 [Moles/Vol]24 mmol/GKvxutd20-33UxqmmewstkFostoria City HospitalComment on above:Performed By: #### [id number] #### [facility] ([facility]) [address] [place] [address]Dbfldwoxsr [Mass/Vol]0.69 mg/dLNormal0.60-1.20UnFostoria City HospitalComment on above:Performed By: #### [id number] #### [facility] ([facility]) [address] [place], [place] [address]DDWGSTQMCY FILTRATION RATE ML/MIN/1.73 SQ M.PFGLLMONU37.3 mL/min/1.73m*2Normal>60.0UnFostoria City HospitalComment on above: Result Comment: The [facility]???s estimated glomerular filtration rate (eGFR) will [...] group of individuals.Performed By: #### [id number] #### [facility] ([facility]) [address] [place] [address]Wyerfot [Mass/Vol]99 mg/wKLuwzur00-293WzxlgkxxzrFostoria City HospitalComment on above:Performed By: #### [id number] #### [facility] ([facility]) [address] [place], [place] [address]Ovjbvorxv [Moles/Vol]4.2 mmol/LNormal3.5-5.1UnFostoria City HospitalComment on above:Performed By: #### [id number] #### [facility] ([facility]) [address] [place], [place] [address]Rmksxjk [Mass/Vol]6.5 g/dLNormal6.0-8.3WVUM[facility] HospitalComment on above:Performed By: #### [id number] #### [facility] ([facility]) [address] [place] [address]Tnjlpx [Moles/Vol]140 mmol/WLurcnv055-360CzyymdmmlyFostoria City HospitalComment on above:Performed By: #### [id number] #### [facility] ([facility]) [address] [place] [address]Ltkl nitrogen [Mass/Vol]12 mg/dLNormal7-25UnFostoria City HospitalComment on above:Performed By: #### [id number] #### [facility] ([facility]) [address] [place] [address]NVOI NITROGEN/CREATININE (MASS RATIO) IN SER/PLAS17.4Normal [facility] HospitalComment on above:Performed By: #### LAB17 #### [facility] ([facility]) [address] [address]VYKXO PANELon 01-11-4654WOEC/HDL3.3 mg/dLNoalUniHarrison Community HospitalComment on above:Performed By: #### LAB46 #### [facility] ([facility]) [address] [place] [address]Mpozvejrzlv [Mass/Vol]230 mg/sJQeyg761-416NbqvvgnglqFostoria City HospitalComment on above:Performed By: #### LAB46 #### [facility] ([facility]) [address] [place] [address]Vsqltiole [Mass/Vol]79 mg/kNOzwvkh96-499LkleupfgicFostoria City HospitalComment on above:Result Comment: TRIGLYCERIDE REFERENCE RANGE: 20 YEARS AND OLDER CARDIOVASCULAR RISK LESS THAN 150 mg/dL LOW RISK 150 TO 199 mg/dL BORDERLINE RISK 200 mg/dL AND GREATER HIGH RISKPerformed By: #### LAB46 #### [facility] ([facility]) [address], [place] [address]Bnfxauwah [Mass/Vol]144 mg/dLNormal0-160UnFostoria City HospitalComment on above:Performed By: #### LAB46 #### [facility] ([facility]) [address] [place], [place] [address]Vftvwhucs [Mass/Vol]70 mg/aGLrfakl92-64VhuifrozueFostoria City HospitalComment on above:Performed By: #### LAB46 #### [facility] ([facility]) [address] [facility] [address] [place], [place] [address]IJO HDL CHOL. (LDL+VLDL)160NormalUniversCleveland Clinic Medina HospitalComment on above:Performed By: #### LAB46 #### [facility] ([facility]) [address] [facility] [place] [place], [place] [address]TNYHT VLDL-C16 mg/dLNormal0-40UnFostoria City HospitalComment on above:Performed By: #### LAB46 #### [facility] ([facility]) [address] [address] [place] [place], [place] [address]DBIMWGKOyt 51-60-4178WCUSUVSRMa was cooperative but guarded during HS assessment and med pass. Pt denies pain and S.I. Pt denies A/V hallucinations (but says she sees ribbons sometimes). Pt is confused and need reoriented to her surroundings. Pt was resting quietly in bed, and she did not come out of her room to participate in the milieu. Pt refused an HS snack.[facility] NURSNOTEPatient wanting to leave . Had her sit with journalists and other writers and read her admission note. Patient was surprised she was in dewey. She said it was a dream not a hallucination. When she told her about the kids being killed. Patient remembers other incidence and admits she was confused then. Patient tired and wanting to lay down and rest right now.[facility] NURSNOTEHusband called to talk with journalists and other writers.His had called him and he wanted to update journalists and other writers on conversation. His was confused and though we were closing doors and we were kicking her out. She also said her mother was in her bed. Patients mother in 2009. said his always increased confusion at dinner time. Patient in behavioral control this shift. Independent with adl`s and ambulation.Patient refused am group.[facility] Community HospitalNURSNOTEThis report has been cancelled.[facility] Community HospitalNURSNOTEPatient oriented to hospital, month and name. `Well I failed that test.` Rated depression a 5 on scale of 0-10. Patient denies AVH/SI/ and anxiety. Flat affect. Wandering unit after lunch looking for her room. Redirected easily. Needs reminded to use her walker.[facility] NURSNOTEPt slept approximately 7.5 hours last night. No behaviors or issues to report at this time. Safety checks maintained.[facility]30 on [id number] patient is Unstable - High likelihood or risk of patient condition declining or worsening The patient's goals for the shift include The clinical goals for the shift include Problem: Confusion Goal: LTG-Take medications as prescribed Outcome: Progressing Problem: Anxiety Goal: LTG-Decrease worry of fearful thoughts and/or behaviors Outcome: Not ProgressingNormalUniHarrison Community Hospital30The patient is Moderately Stable - Low risk of patient condition declining or worsening The patient's goals for the shift include unit orientation The clinical goals for the shift include unit orientation and safetyNormal [facility] HospitalHPon 01-04-1273FW Attestation signed by Irma Greco DO at [...] Will monitor for symptomatology and adjust accordingly. [facility] History and Physical Examination Donnie Bullock is a 68 y.o. female with a past psychiatric history of Generalized Anxiety Disorder and a pertinent past medical history of Paroxysmal supraventricular tachycardia. She presented on 06/09/2024 to the [facility] (as a direct admission from home) for Major Neurocognitive Disorder with Lewy bodies and worsening visual hallucinations. Legal guardian/Decision maker: Kaden Bullock ([phone]) Nursing Facility: N/A, Patient Lives at Home [...] by Dr. Judy Chino, a psychologist in [place]. She then, approximately 1 year ago, began seeing neurology (Dr. Ambrose at [facility]). She also presented to [facility] for a second opinion in April, (MOCA score at that time was 17/30). The patient previously received services through [facility], this care was reported to be for her major neurocognitive disorder. This week the patient was experiencing worsening hallucinations. On Wednesday (06/05/2024) she reported that she killed her 4 kids and grandchildren. She stated she had their head in bags. The next day (06/06/2024) she was increasingly paranoid and told her that the scrap dealer was coming to take her away and she was packing. She experiences visual hallucinations every day, intermittently. In particular, Mrs. Bullock sees babies suffocating and people living in her house. She also reports seeing dogs as well as squirrels on her husbands shoulder when they watch TV together. Furthermore, patient states when she was hospitalized at [facility] for (depressive symptoms) she saw ribbons in [...] past). Patient/Collateral reports th (more content not included)...[facility] Community HospitalNURSNOTEon 44-50-3453FXFKBCKXYf was calm and cooperative with assessment and HS med pass. Pt denies of SI/HI/AV hallucinations. Patient denies of pain and SOB. No behaviorals nor any other issues to report at this time. Safety checks maintained.[facility]arrison Community HospitalCNPNon [id number] ([facility] DONNIE BULLOCK ([id number]) 1955 F Date Time Provider Department 05/26/24 SERA KILLIAN During your visit today, we recorded the following information about you: Sera Killian, TEO.NURSE STAFF INDUSTRIAL 05/26/2024 6:35 PM Signed Call to spouse [...] 12:16 PM Signed Spouse, Vimal SANDERS on [facility] Nurse Line on 05/26 @2:07P. Pt name and verified 1955. Vimal states pt is shaking bad and really anxious. Please call back at . Thank you, Ivette Ferreira, JOSÉ ANTONIO 05/29/2024 1:46 PM Signed Spoke with Vimal, [...] brain disc will be picked tomorrow from [facility] and Vimal will mail it to Sera Killian APRN, NURSE STAFF INDUSTRIAL. - Vimal was advised to keep our office updated. Ivette Kerr RN Allergies As of Date: 05/26/2024 (No Known Allergies) Date Reviewed: 04/19/2024 Reviewed by: Francie Lira RN - Fully Assessed Reason for Visit: Called Back [2728] Patient Question [4397] Cmt: Spouse requesting a return phone call [...] 04/19/2024 Encounter Status:Closed by SERA KILLIAN on 05/30/24NoZanesville City Hospital UA (CLEAN/CATCH) MICROSCOPIC IF INDICATEon [id number] URINENegativeNEGATIVENOMS HealthcareBLOOD URINETRACE-INEGATIVENOMS Healthcare Clarity (U)CLEARCLEARNOMS HealthcareColor (U)YELLOWYELLOWNOMS HealthcareGLUCOSE URINE UANegativeNEGATIVE mg/dLNOMS HealthcareInterpretation and review of laboratory resultsAbnormalNOMS HealthcareKetones Ql (U)TRACEAbnormalNEGATIVE mg/dLNOMS HealthcareLeukocyte esterase Test strip Ql (U)NegativeNEGATIVENOMS HealthcareNITRITE URINENegativeNEGATIVENOMS HealthcarepH (U)6.0 [pH]5.0 - 9.0 NOMS HealthcarePROTEIN URINENegativeNEG/TRACE mg/dLNOMS HealthcareSPECIFIC GRAVITY URINE>=1.911Ytoqetox2.005 - 1.025NOMS HealthcareURINE MICROSCOPIC INDICATEDYESNOMS HealthcareUROBILINOGEN URINE0.2 EU/dL0.2 - 1.0 EU/dLNOMS HealthcareCLINISYNCNOMS HealthcareCNPNon [id number] ([facility]) DONNIE BULLOCK ([id number]) 1955 F Date Time Provider Department 05/15/24 SERA KILLIAN [facility] During your visit today, we recorded the following information about you: Rose Baldwin 05/15/2024 3:22 PM Signed Spouse, Carlos SANDERS on [facility] Nurse Line on 05/15 @2:59P. Pt name and verified 1955. Carlos is requesting to speak with nurse re: pt symptoms. Hallucinations are getting worse. Please call back at . Thank you, Ivette Ferreira RN 05/15/2024 5:28 PM Signed Voice message left [...] 05/18/2024. Advised that he may send a Impulsonic Chart Message. JOSÉ ANTONIO Hernandez Terri, JOSÉ ANTONIO 05/18/2024 4:23 PM Signed Spoke with Vimal, [...] Fully Assessed Reason for Visit: Patient Question [5810] Patient Update [1234] Cmt: Spouse requesting to [...] 04/19/2024 Encounter Status:Closed by SERA KILLIAN on 05/22/24[facility] [id number] ([facility]) DONNIE BULLOCK ([id number]) 1955 F Date Time Provider Department 04/25/24 [...] weeks - then stop altogether. Sera Killian APRN.NURSE STAFF INDUSTRIAL Allergies As of Date: 04/25/2024 (No Known [...] 04/19/2024 Encounter Status:Closed by SERA KILLIAN on 04/25/24[facility] ([facility] DONNIE BULLOCK ([id number]) 1955 F Date Time Provider Department 04/25/24 [...] 04/19/2024 Encounter Status:Closed by FRANCIE LIRA on 04/26/24NoMetroHealth Cleveland Heights Medical CenterJessie [id number] ([facility]) DONNIE BULLOCK ([id number]) 1955 F Date Time Provider Department 04/20/24 SERA KILLIAN [facility] During your visit today, we recorded the following information about you: Francie Liar RN 04/20/2024 10:58 AM Signed Carlos called [...] 04/19/2024 Encounter Status:Closed by FRANCIE LIRA on 04/21/24[facility] [id number] Visit ([facility]) DONNIE BULLOCK ([id number]) 1955 F Date Time Provider Department 04/19/24 12:30 PM [facility] During your visit today, we recorded the following information about you: Pulse Blood pressure Weight 76/minute 129/83 73.8 kg Sera Killian, PARACHUTE HARNESS RIGGER.NURSE STAFF INDUSTRIAL 04/19/2024 5:34 PM Signed Date: April 19, 2024 DONNIE BULLOCK [address] [place] [address] [facility] INITIAL PATIENT EVALUATION Reason [...] by neurology provider Dr. Rei Cobos at [facility], followed since August 2023. No cognitive testing on file. Formerly followed by psychiatry for LBD/anxiety. Last seen in September 2023. Care was established following her inpatient [facility] hospitalization in April 2023/May 2023. No family history of dementia or Parkinson's Disease. Per spouse and son report: -Lumbar puncture at [facility] September 30, 2023. Work up completed for possible rapidly progressing dementia. -Prior brain imaging (MRI/CT at outside medical systems). -Hallucinations daily (asks her spouse when is Vimal going to come home? ; sees babies; puppies, squirrel on spouse's shoulder, gives sign of peace to people she sees in her home). -Recently discharged from [facility] services 4 months ago. Also previously [...] wanting to live, she was admitted to [facility] for further evaluation. Mobility changes [...] spouse Agencies involved: none currently-previously followed by [facility] Special Concerns: Hallucinations/Delusions: [...] Financial POA: Spouse will verify-information reviewed Consult [facility] SILK SCREENER if not completed: role introduced, reviewed national organizations offering support, provided co (more content not included)...Normal [facility] UA (CLEAN/CATCH) MICROSCOPIC IF INDICATEon [id number] URINENegativeNEGATIVENOMS HealthcareBLOOD URINENegative NEGATIVENOMS HealthcareClarity (U)CLEARCLEARNOMS HealthcareColor (U)DK. YELLOW YELLOWNOMS HealthcareGLUCOSE URINE UANegativeNEGATIVE mg/dLNOMS Healthcare Interpretation and review of laboratory resultsAbnormalNOMS HealthcareKetones Ql (U)15 mg/dLAbnormalNEGATIVENOMS HealthcareLeukocyte esterase Test strip Ql (U) NegativeNEGATIVENOMS HealthcareNITRITE URINENegativeNEGATIVENOMS HealthcarepH (U)5.5 [pH]5.0 - 9.0NOMS HealthcarePROTEIN URINETRACENEG/TRACE mg/dLNOMS HealthcareSPECIFIC GRAVITY URINE>=1.680Tmihzldp8.005 - 1.025NOMS HealthcareURINE MICROSCOPIC INDICATEDNONOMS HealthcareUROBILINOGEN URINE0.2 EU/dL0.2 - 1.0 EU/dLNOMS HealthcareCLINISYNCNOMS HealthcareMM TOMOSYNTHESIS SCREENING BIon 22-91-1477[place], [place] [address] Mammography Report Signed Patient: DONNIE BULLOCK MR#: [id number] : 1955 Acct:[id number] Age/Sex: 68 / F ADM Date: 12/29/23 Loc: MAMMO Attending Dr: Remigio Simpson M.D. Ordering Physician: Remigio Simpson M.D. Results: Date of Service: 12/29/23 Follow Up: Procedure(s): MM tomosynthesis screening BI Accession Number(s): [id number] cc: Remigio Simpson M.D. Patient Name: DONNIE BULLOCK MR#: [id number] : 1955 Exam Date: 12/29/2023 Ordering Doctor: DR Remigio Simpson . RADIOLOGY REPORT PROCEDURE: MM TOMOSYNTHESIS SCREENING BI COMPARISON: MG MAMM SCREEN 3D KEN CAD, 07/03/2021. INDICATIONS: Screening Calculator Name NCI Breast Cancer Risk Assessment Tool 5 Year Breast Cancer Risk 1.50% Lifetime Breast Cancer Risk 4.50% Personal Breast Cancer No Personal Ovarian Cancer No Treatments Excision of the site Family Cancers Mother with multiple myeloma cancer at age 78; Father with pancreatic cancer at age 61. LOCATION: [facility] BREAST COMPOSITION: There are scattered areas of fibroglandular density. FINDINGS: DIAGNOSTIC CATEGORY 2--BENIGN FINDING. NO CHANGE FROM COMPARISON. Scattered benign-appearing calcifications are present. RIGHT BREAST: No significant suspicious finding. LEFT BREAST: No significant suspicious finding. Asymmetric small, stable. RECOMMENDATIONS: ROUTINE MAMMOGRAM AND CLINICAL EVALUATION IN 12 MONTHS. PLEASE NOTE: A NORMAL MAMMOGRAM DOES NOT EXCLUDE THE POSSIBILITY OF BREAST CANCER. A CLINICALLY SUSPICIOUS PALPABLE LUMP SHOULD BE BIOPSIED. Dictated by: Krys Hope MD on 12/29/2023 at 10:41 Approved by: Krys Hope MD on 12/29/2023 at 10:44 Dictated By: Krys Hope M.D. Signed By: 12/29/23 1045 DD/ 43 TD/TT: [employer] Consultant:TBHRadiology, Radiologist, - 12/29/2023 [place] [address] Mammography Report Signed Patient: DONNIE BULLOCK MR#: [id number] : 1955 Acct:[id number] Age/Sex: 68 / F ADM Date: 12/29/23 Loc: MAMMO Attending Dr: Remigio Simpson M.D. Ordering Physician: Remigio Simpson M.D. Results: Date of Service: 12/29/23 Follow Up: Procedure(s): MM tomosynthesis screening BI Accession Number(s): [id number] cc: Remigio Simpson M.D. Patient Name: DONNIE BULLOCK MR#: [id number] : 1955 Exam Date: 12/29/2023 Ordering Doctor: DR Remigio Simpson . RADIOLOGY REPORT PROCEDURE: MM TOMOSYNTHESIS SCREENING BI COMPARISON: MG MAMM SCREEN 3D KEN CAD, 07/03/2021. INDICATIONS: Screening Calculator Name NCI Breast Cancer Risk Assessment Tool 5 Year Breast Cancer Risk 1.50% Lifetime Breast Cancer Risk 4.50% Personal Breast Cancer No Personal Ovarian Cancer No Treatments Excision of the site Family Cancers Mother with multiple myeloma cancer at age 78; Father with pancreatic cancer at age 61. LOCATION: [facility] BREAST COMPOSITION: There are scattered areas of fibroglandular density. FINDINGS: DIAGNOSTIC CATEGORY 2--BENIGN FINDING. NO CHANGE FROM COMPARISON. Scattered benign-appearing calcifications are present. RIGHT BREAST: No significant suspicious finding. LEFT BREAST: No significant suspicious finding. Asymmetric small, stable. RECOMMENDATIONS: ROUTINE MAMMOGRAM AND CLINICAL EVALUATION IN 12 MONTHS. PLEASE NOTE: A NORMAL MAMMOGRAM DOES NOT EXCLUDE THE POSSIBILITY OF BREAST CANCER. A CLINICALLY SUSPICIOUS PALPABLE LUMP SHOULD BE BIOPSIED. Dictated by: Krys Hope MD on 12/29/2023 at 10:41 Approved by: Krys Hope MD on 12/29/2023 at 10:44 Dictated By: Krys Hope M.D. Signed By: 12/29/231044 DD/ 43 TD/TT: [employer] Consultant: SOWMYA HealthcareRadiology Study observation (narrative)[facility] TOMOSYNTHESIS SCREENING BIOrdered By: Radiologist Radiology on [id number] Healthcare Work Phone: aerobic Cultureon [id number] CultureComment tube 2 aerobic and anaerobic Results [...] RESISTANT TO ALL B-LACTAM DRUGS. PERFORMED BY: [address] [address] PATHOLOGIST [employer] DRIVER E[employer]ING M.D.[facility] Physician GroupComment on above:Performed By: #### GS, CSFCCDIFF, CSF TP, CSF PCR PANEL, CSF GLU, AERC #### [facility] [address] [place], [place] [id number] USAAutoimmune Encephalitis Profon 85-90-4527Ieiekgqlml Encephalitis ProfNormalThe [facility] Physician GroupComment on above:Result Comment: See report. Scanned copy available in EMR. PERFORMED BY: [place] [address] PATHOLOGIST [employer]IVER E[employer] M.D.Performed By: #### ENS2 #### [place] [id number] USACSF Creutzfeldt-Loy Diseaseon 00-57-7993Dgsyblgcxoq- Loy DiseaseNormalNegativeThe [facility] Physician GroupComment on above:Order Comment: Comment tube 3Result Comment: See report. Scanned copy available in EMR.Performed By: #### GS, CSFCCDIFF, CSF TP, CSF PCR PANEL, CSF GLU, AERC #### [place] [address] USACSF Specimen StatusNormal.The [facility] Comment on above:Order Comment: Comment tube 3Result Comment: Reference lab report sent via fax. Performed at: [facility] Prion Disease Path Surv [address] [place] [address] [place], [place] [id number] Business Reporter: Christy Fernandez PhD, Phone: [phone] PERFORMED BY: [place] [address] PATHOLOGIST [employer]IVER E[employer]ING M.D.Performed By: #### GS, CSFCCDIFF, CSF TP, CSF PCR PANEL, CSF GLU, AERC #### [place] [id number] USACSF PCR Panelon [id number] PCR PanelComment tube 2 aerobic and anaerobic [...] Varicella zoster virus Not detected PERFORMED BY: [place] [address] PATHOLOGIST [employer] DRIVER E[employer] M.D.NormalAdventhealth Wauchula Physician GroupComment on above:Performed By: #### GS, CSFCCDIFF, CSF TP, CSF PCR PANEL, CSF GLU, AERC #### [place] [address] USACell Count Differential,CSFon 45-54-2514Zaaslxhuue, CSF CloudyCritically abnormalClearThe [facility] Physician GroupComment on above: Order Comment: Comment tube 1Performed By: #### GS, CSFCCDIFF, CSF TP, CSF PCR PANEL, CSF GLU, AERC #### [place] [address] USAColor, CSFPinkCritically abnormalColorlessAdventhealth Wauchula Physician GroupComment on above:Order Comment: Comment tube 1Performed By: #### GS, CSFCCDIFF, CSF TP, CSF PCR PANEL, CSF GLU, AERC #### [place] [id number] USACSF Supernatant ColorColorlessNormalColorlessAdventhealth Wauchula Physician GroupComment on above:Order Comment: Comment tube 1Performed By: #### GS, CSFCCDIFF, CSF TP, CSF PCR PANEL, CSF GLU, AERC #### [place] [address] USACSF Volume, Total11.7 mLNormalThe [facility] Physician GroupComment on above:Order Comment: Comment tube 1Performed By: #### GS, CSFCCDIFF, CSF TP, CSF PCR PANEL, CSF GLU, AERC #### [place] [address] USALymphocytes, [id number] [facility] Comment on above:Order Comment: Comment tube 1Result Comment: The reference interval and other method performance specifications have not been established for this body fluid. The test result must be integrated into the clinical context for interpretation.Performed By: #### GS, CSFCCDIFF, CSF TP, CSF PCR PANEL, CSF GLU, AERC #### [facility] [address] [place] [address] USAMonocytes, TZC1DuznssCiu [facility] Physician GroupComment on above:Order Comment: Comment tube 1Result Comment: The reference interval and other method performance specifications have not been established for this body fluid. The test result must be integrated into the clinical context for interpretation.Performed By: #### GS, CSFCCDIFF, CSF TP, CSF PCR PANEL, CSF GLU, AERC #### [facility] [address] [place] [address] USANeutrophils, [id number] Health Physician Group Comment on above:Order Comment: Comment tube 1Result Comment: The reference interval and other method performance specifications have not been established for this body fluid. The test result must be integrated into the clinical context for interpretation.Performed By: #### GS, CSFCCDIFF, CSF TP, CSF PCR PANEL, CSF GLU, AERC #### [facility] [address] [place] [address] USARBC, [id number] Firelands Physician GroupComment on above:Order Comment: Comment tube 1Result Comment: The reference interval and other method performance specifications have not been established for this body fluid. The test result must be integrated into the clinical context for interpretation.Performed By: #### GS, CSFCCDIFF, CSF TP, CSF PCR PANEL, CSF GLU, AERC #### [facility] [address] [place] [address] USATNC, CSF2 /uLNormal0-5The [facility] Physician GroupComment on above:Order Comment: Comment tube 1Performed By: #### GS, CSFCCDIFF, CSF TP, CSF PCR PANEL, CSF GLU, AERC #### [facility] [address] [place] [address] USATotal Count, [id number] Medical Center [facility] Physician Group Comment on above:Order Comment: Comment tube 1Performed By: #### GS, CSFCCDIFF, CSF TP, CSF PCR PANEL, CSF GLU, AERC #### [place] [address] USATube Number Tested, CSFTube Number: 1NormalAdventhealth Wauchula Physician GroupComment on above:Order Comment: Comment tube 1Result Comment: PERFORMED BY: [place] [address] PATHOLOGIST [employer]IVER [employer] M.D.Performed By: #### GS, CSFCCDIFF, CSF TP, CSF PCR PANEL, CSF GLU, AERC #### [place] [address] USACell Count Differential,CSF #2on 53-69-4405Rjvqydshil, CSF ClearNormalClearAdventhealth Wauchula Physician GroupComment on above:Order Comment: Comment tube 3Performed By: #### GS, CSFCCDIFF, CSF TP, CSF PCR PANEL, CSF GLU, AERC #### [place] [address] USAColor, CSFColorlessNormalColorlessAdventhealth Wauchula Physician GroupComment on above:Order Comment: Comment tube 3Performed By: #### GS, CSFCCDIFF, CSF TP, CSF PCR PANEL, CSF GLU, AERC #### [place] [id number] USACSF Supernatant ColorColorlessNormalColorlessAdventhealth Wauchula Physician [facility] HospitalComment on above:Order Comment: Comment tube 3Performed By: #### GS, CSFCCDIFF, CSF TP, CSF PCR PANEL, CSF GLU, AERC #### [place] [address] USACSF Volume, Total11.7 mLNormalAdventhealth Wauchula Physician GroupComment on above:Order Comment: Comment tube 3Performed By: #### GS, CSFCCDIFF, CSF TP, CSF PCR PANEL, CSF GLU, AERC #### [place] [id number] USALymphocytes, CLQ2WikrfxUbl [facility] Comment on above:Order Comment: Comment tube 3Result Comment: The reference interval and other method performance specifications have not been established for this body fluid. The test result must be integrated into the clinical context for interpretation.Performed By: #### GS, CSFCCDIFF, CSF TP, CSF PCR PANEL, CSF GLU, AERC #### [facility] [address] [place] [address] USAMonocytes, QHY9WifppaKvpBaptist [facility] Physician GroupComment on above:Order Comment: Comment tube 3Result Comment: The reference interval and other method performance specifications have not been established for this body fluid. The test result must be integrated into the clinical context for interpretation.Performed By: #### GS, CSFCCDIFF, CSF TP, CSF PCR PANEL, CSF GLU, AERC #### [facility] [address] [place] [address] USANeutrophils, UYJ9GdrinoWciNovant Health Physician Group Comment on above:Order Comment: Comment tube 3Result Comment: The reference interval and other method performance specifications have not been established for this body fluid. The test result must be integrated into the clinical context for interpretation.Performed By: #### GS, CSFCCDIFF, CSF TP, CSF PCR PANEL, CSF GLU, AERC #### [facility] [address] [place] [address] USARBC, OFF637 /uLNormBaptist Medical Center Nassau Physician GroupComment on above:Order Comment: Comment tube 3Result Comment: The reference interval and other method performance specifications have not been established for this body fluid. The test result must be integrated into the clinical context for interpretation.Performed By: #### GS, CSFCCDIFF, CSF TP, CSF PCR PANEL, CSF GLU, AERC #### [facility] [address] [place] [address] USATNC, CSF1 /uLNormal0-5The [facility] Physician GroupComment on above:Order Comment: Comment tube 3Performed By: #### GS, CSFCCDIFF, CSF TP, CSF PCR PANEL, CSF GLU, AERC #### [facility] [address] [place] [address] USATotal Count, VXI5IwancgVxeBaptist [facility] Comment on above:Order Comment: Comment tube 3Performed By: #### GS, CSFCCDIFF, CSF TP, CSF PCR PANEL, CSF GLU, AERC #### [place] [address] USATube Number Tested, CSFTube Number: [id number] Health Physician GroupComment on above:Order Comment: Comment tube 3Result Comment: PERFORMED BY: [place] [address] PATHOLOGIST [employer] E[employer] M.D.Performed By: #### GS, CSFCCDIFF, CSF TP, CSF PCR PANEL, CSF GLU, AERC #### [place] [address] USAGlucose, Spinal Fluidon 94-62-9077Rlsjjsk, Spinal Fluid63 mg/vQMayizs88-50Cqd [facility] Physician GroupComment on above:Order Comment: Comment tube 3Performed By: #### GS, CSFCCDIFF, CSF TP, CSF PCR PANEL, CSF GLU, AERC #### [place] [address] USAGram Stainon 11-15-8657Fvvrigkseos observation Gram stain Nom (Unsp spec)Comment tube 2 aerobic and anaerobic Gram Stain Result No Bacteria Seen No White Blood Cells Seen PERFORMED BY: [place] [address] PATHOLOGIST [employer] E[employer] M.D.NormalThe [facility] Physician GroupComment on above:Performed By: #### GS, CSFCCDIFF, CSF TP, CSF PCR PANEL, CSF GLU, AERC #### [place] [address] USAIR guided lumbar puncture LPon 47-85-9117TT guided lumbar puncture [facility] Main [place] [address] [place] [address] Interventional Radiology Rpt Signed Patient: Donnie Bullock MR#: [id number] 21 : 1955 Acct:[id number] Age/Sex: 67 / F ADM Date: 09/30/23 Loc: XD Room: Type: [facility] Attending Dr: Rei Cobos DO Copies to: Rei Cobos DO Ordering Provider: Rei Cobos DO Date of Service: 09/30/23 IR/IR guided lumbar puncture LP: RAPIDLY PROGRESSIVE DEMENTIA IR guided lumbar puncture LP 09/30/2023 7:28 AM SIGNS AND SYMPTOMS: 0.52 [id number] RAPIDLY PROGRESSIVE DEMENTIA INFORMED CONSENT: Reason for [...] Elvis Mae M.D.09/30/2023 1:23 PM Dictation Location: [place] [address] Transcribed By: [facility] 09/30/23 1323 Dictated By: Elvis Mae II, MD 09/30/23 1321 Signed By: 09/30/[address] [place] [address] Physician GroupLon [id number]: [id number] Received: 09/30/23 Status: ZACK Larsen Num: [id number] Spec Type: Cytology Subm Dr: Rei Cobos DO Tissues: A CSF (CSF) Procedures: Cyto Prepstain, DIFF QWIK, PAPSTN Age/ Patient Sex Location Account Attending Physician Donnie Bullock 67/F XD [id number] Rei Cobos DO SPEC NUM: [id number] RECD: 09/30/23 STATUS: ZACK LARSEN NUM: [id number] JAY: 09/30/[address]: Rei Cobos DO ENTERED: 09/30/[address] [facility] DR: SPEC TYPE: Cytology DEPT: [facility] ENTERED BY: [id number] RECV BY: [id number] ORDERED: Cyto Prepstain, DIFF QWIK, PAPSTN ORDERED: [...] cytospin slides are prepared. (CC/nh) CPT Codes 77624 Specimen: [id number] Received: 09/30/23 Status: ZACK Larsen Num: [id number] Spec Type: Cytology [facility] Dr: Rei Cobos DO Tissues: A CSF (CSF) Procedures: Cyto Prepstain, DIFF QWIK, PAPSTN Patient: Donnie Bullock [id number] (Continued) Signed (signature on file) Camden-Guille Marie MD 10/03/[address] [place] [address] Physician GroupTotal Protein, Spinal Fluidon 09-30-2023 Total Protein, Spinal Fluid35 mg/lNXhbxjd66-56Ysn [facility] Comment on above:Order Comment: Comment tube 3Result Comment: PERFORMED BY: [place] [address] PATHOLOGIST [employer] M.D.Performed By: #### GS, CSFCCDIFF, CSF TP, CSF PCR PANEL, CSF GLU, AERC #### [facility] [address] [place] [address] USACholesterol [Mass/volume] in Serum or PlasmaOrdered By: Sridhar Hoffman on 80-77-1710Idgbdrailhr [Mass/Vol]205 mg/nMTuzi443-505MehuiqphuOhiohealth Hardin Memorial HospitalComment on above:Chol less than 200 mg/dl low riskChol 201-239 mg/dl borderline riskChol 240 mg/dl and greater high riskResult Comment: Chol less than 200 mg/dl low risk Chol 201-239 mg/dl borderline risk Chol 240 mg/dl and greater high riskPerformed By: #### GS, CSFCCDIFF, CSF TP, CSF PCR PANEL, CSF GLU, AERC #### [facility] [address] [place] [id number] USACholesterol in LDL Calc [Mass/Vol]Ordered By: Sridhar Hoffman on 11-89-6793Tmmgyoriwki in LDL [Mass/Vol]122 mg/dL0-100Ohio[facility] Memorial HospitalComment on above:LDL ATP III CLASSIFICATIONLDL less than 100 mg/dL OptimalLDL 100-129 mg/dL Near or above sgzgutrVEW648-784 mg/dL Borderline highLDL 160-189 mg/dL HighLDL greater than 189 mg/dL Very high Cholesterol in VLDL Calc [Mass/Vol]Ordered By: Sridhar Hoffman on 09-15-2023 Cholesterol in VLDL [Mass/Vol]20 mg/dLOhiohealth Hardin Memorial HospitalECG 12 lead ECGon 1953FHY 12 lead ECGUPPER VALLEY [place] [address] Electrocardiograph Report Signed Patient: Donnie Bullock MR#: [id number] 21 : 1955 Acct:[id number] Age/Sex: 67 / F ADM Date: 09/14/23 Loc: Room: [address] [place] [address] Type: ADM IN Attending Dr: Sridhar Hoffman [...] change was found Confirmed by YOLA ROGERS [facility] ([id number]) on 09/15/2023 3:08:00 PM Referred By: Electronically Signed By:DESTINEE ACEVES MD FACC Transcribed By: MUS Signed By Destinee Aceves MD, FACC 09/15/23 1508[facility] Physician GroupLipid Panelon 23-94-4634SKS Cholesterol,Ssupsqciyg590 mg/dLHigh0-100[facility] HospitalComment on above:Result Comment: LDL ATP III CLASSIFICATION LDL less than 100 mg/dL Optimal LDL 100-129 mg/dL Near or above optimal LDL 130-159 mg/dL Borderline high LDL 160-189 mg/dL High LDL greater than 189 mg/dL Very highPerformed By: #### GS, CSFCCDIFF, CSF TP, CSF PCR PANEL, CSF GLU, AERC #### [facility] [address] [place] [address] USATriglyceride w/Jjbdvy045 mg/dLNormal0-149[facility] Physician GroupComment on above:Result Comment: TRIG ATP III CLASSIFICATION TRIG less than 150 mg/dL Normal TRIG 150-199 mg/dL Borderline high TRIG 200-500 mg/dL High TRIG greater than 500 mg/dL Very high Standard traceable to the Center for Disease Conrtrol and Prevention (CDC) test method.Performed By: #### GS, CSFCCDIFF, CSF TP, CSF PCR PANEL, CSF GLU, AERC #### [facility] [address] [place] [id number] USAVLDL RDGIBHHDOVE34 mg/dLNoNovant Health Physician GroupComment on above:Performed By: #### GS, CSFCCDIFF, CSF TP, CSF PCR PANEL, CSF GLU, AERC #### [facility] [address] [place] [address] USASerum or plasma high density lipoprotein (HDL) cholesterol measurementOrdered By: Sridhar Hoffman on 75-87-3578Qktboofeaoq in HDL [Mass/Vol]62 mg/tMLcixmk91-79SmqkufcefOhiohealth Hardin Memorial HospitalComment on above: HDL CHOL ATP-III CLASSIFICATION Cardiovascular RiskHDL > or equal to 60 mg/dL LOWHDL < 40 mg/dL HIGHResult Comment: HDL CHOL ATP-III CLASSIFICATION Cardiovascular Risk HDL > or equal to 60 mg/dL LOW HDL < 40 mg/dL HIGHPerformed By: #### GS, CSFCCDIFF, CSF TP, CSF PCR PANEL, CSF GLU, AERC #### [facility] [address] [place] [id number] USASerum or plasma total cholesterol/high density lipoprotein (HDL) cholesterol mass ratOrdered By: Sridhar Hoffman on 09-15-2023 Cholesterol.total/Cholesterol in HDL [Mass ratio]3.3 {ratio}Normal<5.0Ohiohealth Hardin Memorial HospitalComment on above:Performed By: #### GS, CSFCCDIFF, CSF TP, CSF PCR PANEL, CSF GLU, AERC #### [facility] [address] [place] [address] USAThyroid Stim Hormone w/Rflxon 84-27-9802Wphnede Stim Hormone w/Rflx3.99 u[iU]/mLNormal0.45-5.33The [facility] Physician GroupComment on above:Performed By: #### GS, CSFCCDIFF, CSF TP, CSF PCR PANEL, CSF GLU, AERC #### [facility] [address] [place] [address] USAThyrotropin [Units/volume] in Serum or PlasmaOrdered By: Sridhar Hoffman on 72-75-5423BEI Qn3.99 m[IU]/L0.45-5.33Ohiohealth Hardin Memorial HospitalTriglyceride [Mass/volume] in Serum or PlasmaOrdered By: Sridhar Hoffman on 38-16-0330Bprafkbtsyox [Mass/Vol]103 mg/dL0-149Ohio[facility] Memorial HospitalComment on above:TRIG ATP III CLASSIFICATIONTRIG less than 150 mg/dL NormalTRIG 150-199 mg/dL Borderline highTRIG 200-500 mg/dL High TRIG greater than 500 mg/dL Very highStandard traceable to the Center for Disease Co nrtrol and Prevention (CDC) test method.Vitamin D 25 Hydroxy Totalon 09-15-2023 Vitamin D 25 Hydroxy Total22.0 ng/kZCcl11-019Pso [facility] Comment on above:Result Comment: VITAMIN D STATUS 25(OH)VITAMIN D RANGE (ng/mL) Deficient <20 Insufficient 20 to <30 Sufficient 30 to 100 Reference: Shaq MF,Monica NC, Fabrizio , et al. Evaluation,treatment, and prevention of vitamin D deficiency; an Endocrine Society clinical practice guideline. JCEM. 2010; 96(7):1911-30. PERFORMED BY: [address] [address] PATHOLOGIST [employer] M.D.Performed By: #### GS, CSFCCDIFF, CSF TP, CSF PCR PANEL, CSF GLU, AERC #### [facility] [address] [place] [id number] USAVitamin D+Metabolites [Mass/volume] in Serum or Plasma Ordered By: Sridhar Hoffman on 46-68-6477Eifwpoy D+Metabolites [Mass/Vol]22.0 ng/eN30-244SbculuaosOhiohealth Hardin Memorial HospitalComment on above:VITAMIN D STATUS 25(OH)VITAMIN D RANGE (ng/mL) Deficient <20 Insufficient 20 to <37Emplqdwvli35 to 100Reference: Shaq MF,Monica PRESLEY, Fabrizio , et al. Evaluation,treatment, and prevention of vitamin D deficiency; an Endocrine Society clinical practice guideline. JCEM. 2010; 96(7):1911-30.Alanine aminotransferase [Enzymatic activity/volume] in Serum or PlasmaOrdered By: Good Garcia on 21-76-0380HQE [Catalytic activity/Vol]20 U/LNormal7-52Ohio[facility] Hardin Memorial HospitalComment on above:Performed By: #### GS, CSFCCDIFF, CSF TP, CSF PCR PANEL, CSF GLU, AERC #### [facility] [address] [place] [id number] USAAlbumin [Mass/volume] in Serum or Plasma by Bromocresol green (BCG) dye binding methoOrdered By: Good Garcia on 07-49-0812Jjacaos BCG dye [Mass/Vol]4.0 g/dL3.5-5.7FKettering Health MiamisburgAlkaline phosphatase [Enzymatic activity/volume] in Serum or PlasmaOrdered By: Good Garcia on 13-41-8086EGP [Catalytic activity/Vol]43 U/UDfqbmj40-691IhlrsjgafOhiohealth Hardin Memorial HospitalComment on above:Performed By: #### GS, CSFCCDIFF, CSF TP, CSF PCR PANEL, CSF GLU, AERC #### [facility] [address] [place] [address] USAAmphetamine Screen Ql (U)Ordered By: Good Garcia on 27-64-6077Tgpclrrxbqnx Ql (U)NegativeNegativeOhiohealth Hardin Memorial Hospital Aspartate aminotransferase [Enzymatic activity/volume] in Serum or PlasmaOrdered By: Good Garcia on 93-36-2164UUD [Catalytic activity/Vol]18 U/DGfejsw53-14 [facility] Memorial HospitalComment on above:Performed By: #### GS, CSFCCDIFF, CSF TP, CSF PCR PANEL, CSF GLU, AERC #### [place] [address] USAAutomated basophil %Ordered By: Good Garcia on 09-14-2023 Basophils/100 WBC (Bld)0.6 %Normal.Ohio[facility] Hardin Memorial HospitalComment on above:Performed By: #### GS, CSFCCDIFF, CSF TP, CSF PCR PANEL, CSF GLU, AERC #### [place] [address] USAAutomated basophil countOrdered By: Good Garcia on 89-23-8375Cakhakrsg (Bld) [#/Vol]0.0 10*3/uLNormal0.0-0.2FKettering Health MiamisburgComment on above:Result Comment: PERFORMED BY: [place] [address] PATHOLOGIST [employer] M.D.Performed By: #### GS, CSFCCDIFF, CSF TP, CSF PCR PANEL, CSF GLU, AERC #### [place] [address] USAAutomated blood monocyte countOrdered By: Good Garcia on 71-42-2378Zwkhglsxb (Bld) [#/Vol]0.4 10*3/uLNormal0.0-0.8Ohio[facility] Hardin Memorial HospitalComment on above:Performed By: #### GS, CSFCCDIFF, CSF TP, CSF PCR PANEL, CSF GLU, AERC #### [place] [address] USAAutomated eosinophil %Ordered By: Good Garcia on 67-84-9464Mvcbhstewfz/100 WBC (Bld)1.0 %Normal.[facility] Comment on above:Performed By: #### GS, CSFCCDIFF, CSF TP, CSF PCR PANEL, CSF GLU, AERC #### [place] [address] USAAutomated eosinophil countOrdered By: Good Garcia on 50-46-7591Qdqdwgyxpum (Bld) [#/Vol]0.1 10*3/uLNormal0.0-0.45Ohio[facility] Memorial HospitalComment on above:Performed By: #### GS, CSFCCDIFF, CSF TP, CSF PCR PANEL, CSF GLU, AERC #### [facility] [address] [place] [address] USAAutomated monocyte %Ordered By: Good Garcia on 09-14-2023 Monocytes/100 WBC (Bld)7.5 %Normal.[facility] Hard[facility] Memorial HospitalComment on above:Performed By: #### GS, CSFCCDIFF, CSF TP, CSF PCR PANEL, CSF GLU, AERC #### [facility] [address] [place] [address] USAAutomated neutrophil %Ordered By: Good Garcia on 06-80-8706Tlpqhxnlbpw/100 WBC (Bld)59.4 %Normal.[facility] Memorial HospitalComment on above:Performed By: #### GS, CSFCCDIFF, CSF TP, CSF PCR PANEL, CSF GLU, AERC #### [facility] [address] [place] [id number] USAAutomated urine color determinationOrdered By: Godo Garcia on 80-31-8668Tcrmq (U)YellowNoalYTriHealth Bethesda [facility] Hospital Comment on above:Order Comment: Comment tube 3Performed By: #### GS, CSFCCDIFF, CSF TP, CSF PCR PANEL, CSF GLU, AERC #### [facility] [address] [place] [id number] USABarbiturates [Presence] in Urine by Screen methodOrdered By: Good Garcia on 62-63-5991Lhpmxznupcwd Screen Ql (U)NegativeNegative [facility] HospitalBenzodiazepines Screen Ql (U)Ordered By: Good Garcia on 77-47-3891Exysgbqxjljtnxb Ql (U)NegativeNegativeOhiohealth Hardin Memorial HospitalBenzoylecgonine [Presence] in Urine by Screen method Ordered By: Good Garcia on 66-75-4645Remwpkkbxnacazo Screen Ql (U)Negative NegativeOhiohealth Hardin Memorial HospitalBilirubin Test strip Ql (U)Ordered By: Good Castilloiris on 46-41-2146Lhfqeuxcu Ql (U)NegativeNegativeOhiohealth Hardin Memorial HospitalBilirubin.total [Mass/volume] in Serum or PlasmaOrdered By: Good Radha on 45-20-5196Ghvpgrjgc [Mass/Vol]0.4 mg/dLNormal0.3-1.0Ohio[facility] Hardin Memorial HospitalComment on above:Performed By: #### GS, CSFCCDIFF, CSF TP, CSF PCR PANEL, CSF GLU, AERC #### [facility] [address] [place] [address] USACT ABDOMEN PELVIS WO/W CONon 86-43-1337YeqOxford, [place] [address] CT Scan Report Signed Patient: DONNIE BULLOCK MR#: [id number] : 1955 Acct:[id number] Age/Sex: 67 / F ADM Date: 09/14/23 Loc: CT Attending Dr: Rei Cobos D.O. Ordering Physician: Rei Cobos D.O. Date of Service: 09/14/23 Procedure(s): CT abdomen pelvis wo/w con Accession Number(s): [id number] cc: Remigio Simpson M.D. [place] [id number] Patient Name: DONNIE BULLOCK MRN: [facility]:[id number] date: 1955 Sex: F Assigned Patient Location: CT Current Patient Location: CT Accession/Order Number: [id number] Exam Date: 09/14/2023 09:20 Report Date: 09/14/2023 12:53 At the request of: REI COBOS Procedure: CT abdomen pelvis wo/w con EXAMINATION: CT chest wo/w con, CT abdomen pelvis wo/w con HISTORY: Rapidly Progressive Dementia, Generalized Weakness COMPARISON: 12/30/2022 TECHNIQUE: Axial, Coronal, and Sagittal CT images were obtained without and with IV contrast. Dose reduction techniques were achieved by using automated exposure control and/or adjustment of mA and/or kV according to patient size and/or use of iterative reconstruction technique. FINDINGS: LUNGS: No visible pulmonary disease. PLEURA: No mass or effusion. VASCULATURE: No visible pulmonary arterial thrombus or attenuation. OSMANI: No mass or adenopathy. MEDIASTINUM: No mass or adenopathy. CARDIAC: No enlargement, pericardial thickening, or pericardial effusion. CHEST WALL: No mass or axillary adenopathy. LIVER: No enlargement, atrophy, abnormal density, or significant focal lesion. BILIARY: No dilatation or calcification. PANCREAS: No lesion, fluid collection, ductal dilatation, or atrophy. SPLEEN: No enlargement or focal lesion. ADRENALS: No mass or enlargement. KIDNEYS: Normal right. 2 left renal nonenhancing cysts one measuring 1 cm a second measuring 8.9 cm deforming the left lateral kidney BOWEL/MESENTERY: No visible mass, obstruction, or bowel wall thickening. AORTA/VASCULAR: No aortic aneurysm. Mild calcific atherosclerosis RETROPERITONEUM: No mass or adenopathy. ABDOMINAL WALL: No mass or hernia. BONES: No bony lesion or fracture. OTHER: Negative. CT/CT abdomen pelvis wo/w con IMPRESSION: No acute abnormality of the chest, abdomen or pelvis Electronically authenticated by: KRYS HOPE Date: 09/14/2023 12:53 Dictated By: Krys Hope M.D. Signed By: 09/14/23 1256 DD/ 1253 TD/TT: [employer] Consultant:TBHRadiology, Radiologist, - 09/14/2023 [place] [address] CT Scan Report Signed Patient: DONNIE BULLOCK MR#: [id number] : 1955 Acct:[id number] Age/Sex: 67 / F ADM Date: 09/14/23 Loc: CT Attending Dr: Rei Cobos D.O. Ordering Physician: Rei Cobos D.O. Date of Service: 09/14/23 Procedure(s): CT abdomen pelvis wo/w con Accession Number(s): [id number] cc: Remigio Simpson M.D. The [place] [id number] Patient Name: DONNIE BULLOCK MRN: [id number] date: 1955 Sex: F Assigned Patient Location: CT Current Patient Location: CT Accession/Order Number: [id number] Exam Date: 09/14/2023 09:20 Report Date: 09/14/2023 12:53 At the request of: REI COBOS Procedure: CT abdomen pelvis wo/w con EXAMINATION: CT chest wo/w con, CT abdomen pelvis wo/w con HISTORY: Rapidly Progressive Dementia, Generalized Weakness COMPARISON: 12/30/2022 TECHNIQUE: Axial, Coronal, and Sagittal CT images were obtained without and with IV contrast. Dose reduction techniques were achieved by using automated exposure control and/or adjustment of mA and/or kV according to patient size and/or use of iterative reconstruction technique. FINDINGS: LUNGS: No visible pulmonary disease. PLEURA: No mass or effusion. VASCULATURE: No visible pulmonary arterial thrombus or attenuation. OSMANI: No mass or adenopathy. MEDIASTINUM: No mass or adenopathy. CARDIAC: No enlargement, pericardial thickening, or pericardial effusion. CHEST WALL: No mass or axillary adenopathy. LIVER: No enlargement, atrophy, abnormal density, or significant focal lesion. BILIARY: No dilatation or calcification. PANCREAS: No lesion, fluid collection, ductal dilatation, or atrophy. SPLEEN: No enlargement or focal lesion. ADRENALS: No mass or enlargement. KIDNEYS: Normal right. 2 left renal nonenhancing cysts one measuring 1 cm a second measuring 8.9 cm deforming the left lateral kidney BOWEL/MESENTERY: No visible mass, obstruction, or bowel wall thickening. AORTA/VASCULAR: No aortic aneurysm. Mild calcific atherosclerosis RETROPERITONEUM: No mass or adenopathy. ABDOMINAL WALL: No mass or hernia. BONES: No bony lesion or fracture. OTHER: Negative. CT/CT abdomen pelvis wo/w con IMPRESSION: No acute abnormality of the chest, abdomen or pelvis Electronically authenticated by: KRYS HOPE Date: 09/14/2023 12:53 Dictated By: Krys Hope M.D. Signed By: 09/14/23 1256 DD/ 1253 TD/TT: [employer] Consultant: SOWMYA [facility] Chest WO and W contrast Kevin 80-51-6780[place], [place] [address] CT Scan Report Signed Patient: DONNIE BULLOCK MR#: [id number] : 1955 Acct:[id number] Age/Sex: 67 / F ADM Date: 09/14/23 Loc: CT Attending Dr: Rei Cobos D.O. Ordering Physician: Rei Cobos D.O. Date of Service: 09/14/23 Procedure(s): CT chest wo/w con Accession Number(s): [id number] cc: Remigio Simpson M.D. [address] [address] Patient Name: DONNIE BULLOCK MRN: [id number] date: 1955 Sex: F Assigned Patient Location: CT Current Patient Location: CT Accession/Order Number: [id number] Exam Date: 09/14/2023 09:20 Report Date: 09/14/2023 12:53 At the request of: REI COBOS Procedure: CT chest wo/w con EXAMINATION: CT chest wo/w con, CT abdomen pelvis wo/w con HISTORY: Rapidly Progressive Dementia, Generalized Weakness COMPARISON: 12/30/2022 TECHNIQUE: Axial, Coronal, and Sagittal CT images were obtained without and with IV contrast. Dose reduction techniques were achieved by using automated exposure control and/or adjustment of mA and/or kV according to patient size and/or use of iterative reconstruction technique. FINDINGS: LUNGS: No visible pulmonary disease. PLEURA: No mass or effusion. VASCULATURE: No visible pulmonary arterial thrombus or attenuation. OSMANI: No mass or adenopathy. MEDIASTINUM: No mass or adenopathy. CARDIAC: No enlargement, pericardial thickening, or pericardial effusion. CHEST WALL: No mass or axillary adenopathy. LIVER: No enlargement, atrophy, abnormal density, or significant focal lesion. BILIARY: No dilatation or calcification. PANCREAS: No lesion, fluid collection, ductal dilatation, or atrophy. SPLEEN: No enlargement or focal lesion. ADRENALS: No mass or enlargement. KIDNEYS: Normal right. 2 left renal nonenhancing cysts one measuring 1 cm a second measuring 8.9 cm deforming the left lateral kidney BOWEL/MESENTERY: No visible mass, obstruction, or bowel wall thickening. AORTA/VASCULAR: No aortic aneurysm. Mild calcific atherosclerosis RETROPERITONEUM: No mass or adenopathy. ABDOMINAL WALL: No mass or hernia. BONES: No bony lesion or fracture. OTHER: Negative. CT/CT chest wo/w con IMPRESSION: No acute abnormality of the chest, abdomen or pelvis Electronically authenticated by: KRYS HOPE Date: 09/14/2023 12:53 Dictated By: Krys Hope M.D. Signed By: 09/14/23 1256 DD/ 1253 TD/TT: [employer] Consultant:TBHRadiology, Radiologist, MD - 09/15/2023 [place] [address] CT Scan Report Signed Patient: DONNIE BULLOCK MR#: [id number] : 1955 Acct:[id number] Age/Sex: 67 / F ADM Date: 09/14/23 Loc: CT Attending Dr: Rei Cobos D.O. Ordering Physician: Rei Cobos D.O. Date of Service: 09/14/23 Procedure(s): CT chest wo/w con Accession Number(s): [id number] cc: Remigio Simpson M.D. The [place] [address] Patient Name: DONNIE BULLOCK MRN: [id number] date: 1955 Sex: F Assigned Patient Location: CT Current Patient Location: CT Accession/Order Number: [id number] Exam Date: 09/14/2023 09:20 Report Date: 09/14/2023 12:53 At the request of: REI COBOS Procedure: CT chest wo/w con EXAMINATION: CT chest wo/w con, CT abdomen pelvis wo/w con HISTORY: Rapidly Progressive Dementia, Generalized Weakness COMPARISON: 12/30/2022 TECHNIQUE: Axial, Coronal, and Sagittal CT images were obtained without and with IV contrast. Dose reduction techniques were achieved by using automated exposure control and/or adjustment of mA and/or kV according to patient size and/or use of iterative reconstruction technique. FINDINGS: LUNGS: No visible pulmonary disease. PLEURA: No mass or effusion. VASCULATURE: No visible pulmonary arterial thrombus or attenuation. OSMANI: No mass or adenopathy. MEDIASTINUM: No mass or adenopathy. CARDIAC: No enlargement, pericardial thickening, or pericardial effusion. CHEST WALL: No mass or axillary adenopathy. LIVER: No enlargement, atrophy, abnormal density, or significant focal lesion. BILIARY: No dilatation or calcification. PANCREAS: No lesion, fluid collection, ductal dilatation, or atrophy. SPLEEN: No enlargement or focal lesion. ADRENALS: No mass or enlargement. KIDNEYS: Normal right. 2 left renal nonenhancing cysts one measuring 1 cm a second measuring 8.9 cm deforming the left lateral kidney BOWEL/MESENTERY: No visible mass, obstruction, or bowel wall thickening. AORTA/VASCULAR: No aortic aneurysm. Mild calcific atherosclerosis RETROPERITONEUM: No mass or adenopathy. ABDOMINAL WALL: No mass or hernia. BONES: No bony lesion or fracture. OTHER: Negative. CT/CT chest wo/w con IMPRESSION: No acute abnormality of the chest, abdomen or pelvis Electronically authenticated by: KRYS HOPE Date: 09/14/2023 12:53 Dictated By: Krys Hope M.D. Signed By: 09/14/23 1256 DD/ 1253 TD/TT: [employer] Consultant: SOWMYA HealthcareCalcium [Mass/volume] in Serum or PlasmaOrdered By: Good Garcia on 70-54-4200Okgroer [Mass/Vol]9.8 mg/dLNormal8.6-10.3FKettering Health MiamisburgComment on above:Performed By: #### GS, CSFCCDIFF, CSF TP, CSF PCR PANEL, CSF GLU, AERC #### [facility] [address] [place] [address] USACannabinoids [Presence] in Urine by Screen methodOrdered By: Good Garcia on 54-28-0197Xkqelprjazqu Screen Ql (U)NegativeNegative [facility] HospitalComment on above:These are unconfirmed results and should not be used for legal purposes. Drug Cut-Off Concentration: AMPH 1000 ng/mL GABRIELA 200 ng/mL SIVA 200 ng/mL COCM 300 ng/mL OP 300 ng/mL PCP 25 ng/mL THC 20 ng/mLCarbon dioxide, total [Moles/volume] in Serum or PlasmaOrdered By: Good Radha on 45-60-5139SY3 [Moles/Vol]31.2 mmol/LHigh21.0-31.0Ohio[facility] Hard[facility] HospitalComment on above:Performed By: #### GS, CSFCCDIFF, CSF TP, CSF PCR PANEL, CSF GLU, AERC #### [place] [address] USAChloride [Moles/volume] in Serum or PlasmaOrdered By: Goodsam Garcia on 40-46-1369Axkytcag [Moles/Vol]103 mmol/BIisnbn80-225CoptvxdgmOhiohealth Hardin Memorial HospitalComment on above:Performed By: #### GS, CSFCCDIFF, CSF TP, CSF PCR PANEL, CSF GLU, AERC #### [place] [address] USAComplete Blood Count Auto Diffon 39-43-3443Ngfn Corpuscular HGB Conc34.0 g/fPWfbywr98.0-35.0The [facility]heastern Physician GroupComment on above:Performed By: #### GS, CSFCCDIFF, CSF TP, CSF PCR PANEL, CSF GLU, AERC #### [place] [address] USAMonocytes/100 WBC (Bld)16.08 %Normal0.00-20.00The [facility] Physician GroupComment on above:Performed By: #### GS, CSFCCDIFF, CSF TP, CSF PCR PANEL, CSF GLU, AERC #### [place] [address] USANRBC%0.1 /100{WBC}Normal0-0.5The [facility] Comment on above:Performed By: #### GS, CSFCCDIFF, CSF TP, CSF PCR PANEL, CSF GLU, AERC #### [place] [address] USAComprehensive Metabolic Panelon 48-89-1178Vqtbewn [Mass/Vol]4.0 g/dLNormal3.5-5.7The [facility] Physician GroupComment on above: Performed By: #### GS, CSFCCDIFF, CSF TP, CSF PCR PANEL, CSF GLU, AERC #### [facility] [address] [place] [address] USACreatinine Clr Calc Eqtihiiy48.72NormalThe [facility] Southeastern Physician GroupComment on above:Result Comment: PERFORMED BY: [place] [address] PATHOLOGIST [employer] DRIVER E[employer] M.D.Performed By: #### GS, CSFCCDIFF, CSF TP, CSF PCR PANEL, CSF GLU, AERC #### [facility] [address] [place] [address] USAGFR/1.73 sq M.predicted MDRD (S/P/Bld) [Vol rate/Area] mL/min/{1.73_m2}NormalThe [facility] Southeastern Physician GroupComment on above:Performed By: #### GS, CSFCCDIFF, CSF TP, CSF PCR PANEL, CSF GLU, AERC #### [place] [address] USACreatinine [Mass/volume] in Serum or PlasmaOrdered By: Good Garcia on 13-50-8504Pgsxhjagxy [Mass/Vol]0.61 mg/dLNormal0.60-1.20 [facility] HospitalComment on above:Performed By: #### GS, CSFCCDIFF, CSF TP, CSF PCR PANEL, CSF GLU, AERC #### [place] [address] USADrug Screen,Urineon 33-07-2310Cbinbxfavki Screen,Urine NegativeNormalNegativeThe [facility] Physician GroupComment on above:Performed By: #### GS, CSFCCDIFF, CSF TP, CSF PCR PANEL, CSF GLU, AERC #### [place] [address] USABarbiturate Screen,UrineNegativeNormalNegativeThe [facility] Physician GroupComment on above:Performed By: #### GS, CSFCCDIFF, CSF TP, CSF PCR PANEL, CSF GLU, AERC #### [place] [address] USABenzodiazepines Screen,UrineNegativeNormalNegativeThe [facility] Physician GroupComment on above:Performed By: #### GS, CSFCCDIFF, CSF TP, CSF PCR PANEL, CSF GLU, AERC #### [place] [address] USACannabinoid Screen,UrineNegativeNormalNegativeAdventhealth Wauchula Physician GroupComment on above:Result Comment: These are unconfirmed results and should not be used for legal purposes. Drug Cut-Off Concentration: AMPH 1000 ng/mL GABRIELA 200 ng/mL SIVA 200 ng/mL COCM 300 ng/mL OP 300 ng/mL PCP 25 ng/mL THC 20 ng/mL PERFORMED BY: [place] [address] PATHOLOGIST [employer] M.D.Performed By: #### GS, CSFCCDIFF, CSF TP, CSF PCR PANEL, CSF GLU, AERC #### [place] [address] USACocaine Screen,UrineNegativeNormalNegativeThe [facility] Physician [facility] Watkins Memorial HospitalComment on above:Performed By: #### GS, CSFCCDIFF, CSF TP, CSF PCR PANEL, CSF GLU, AERC #### [place] [address] USAOpiate Screen,UrinePositiveHighNegativeAdventhealth Wauchula Physician [facility]. [facility]. Watkins Memorial HospitalComment on above:Performed By: #### GS, CSFCCDIFF, CSF TP, CSF PCR PANEL, CSF GLU, AERC #### [place] [address] USAPhencyclidine Screen,UrineNegativeNormalNegativeThe [facility] Physician [facility]. [facility]. Watkins Memorial HospitalComment on above:Performed By: #### GS, CSFCCDIFF, CSF TP, CSF PCR PANEL, CSF GLU, AERC #### [place] [address] USAErythrocyte distribution width [Ratio] by Automated count Ordered By: Good Garcia on 23-29-2929Hjuxtcaqcio distribution width (RBC) [Ratio]13.0 %Rqrgyo67.9-15.3FKettering Health MiamisburgComment on above: Performed By: #### GS, CSFCCDIFF, CSF TP, CSF PCR PANEL, CSF GLU, AERC #### [facility] [address] [place] [id number] USAErythrocytes [#/volume] in Blood by Automated countOrdered By: Good Garcia on 70-19-9932NMX (Bld) [#/Vol]3.98 10*6/uLNormal3.60-5.00 [facility] HospitalComment on above:Performed By: #### GS, CSFCCDIFF, CSF TP, CSF PCR PANEL, CSF GLU, AERC #### [facility] [address] [place] [id number] USAEthanol [Mass/volume] in Serum or PlasmaOrdered By: Good Garcia on 53-33-9875Jdmgntj [Mass/Vol]mg/dLNoGreen Cross HospitalComment on above:Performed By: #### GS, CSFCCDIFF, CSF TP, CSF PCR PANEL, CSF GLU, AERC #### [facility] [address] [place] [id number] USAEthanol [Mass/Vol][facility] Comment on above:Test not performedEthyl Alcohol Profileon 33-28-6913Zjwfvmk EthanolNot performedNoNovant Health Physician GroupComment on above:Result Comment: PERFORMED BY: [place] [address] PATHOLOGIST [employer] M.D.Performed By: #### GS, CSFCCDIFF, CSF TP, CSF PCR PANEL, CSF GLU, AERC #### [facility] [address] [place] [id number] USAGlucose [Mass/volume] in Serum or PlasmaOrdered By: Good Garcia on 13-00-4573Jwkingb [Mass/Vol]105 mg/wVWeza66-490YhbmricarOhiohealth Hardin Memorial HospitalComment on above:ADA recommended reference rangeRandom Glucose Reference [...] CSF PCR PANEL, CSF GLU, AERC #### [facility] [address] [place] [address] USAHematocrit [Volume Fraction] of Blood by Automated count Ordered By: Good Garcia on 03-06-9406Tlvoxbrvgp (Bld) [Volume fraction]35.7 % Cjnbav75.0-46.4FKettering Health MiamisburgComment on above:Performed By: #### GS, CSFCCDIFF, CSF TP, CSF PCR PANEL, CSF GLU, AERC #### [place] [address] USAHemoglobin [Mass/volume] in BloodOrdered By: Good Garcia on 82-85-5434Pmnaavaxme (Bld) [Mass/Vol]12.1 g/mPYsmnxz00.8-15.4FKettering Health MiamisburgComment on above:Performed By: #### GS, CSFCCDIFF, CSF TP, CSF PCR PANEL, CSF GLU, AERC #### [place] [address] USAKetones Auto test strip (U) [Mass/Vol]Ordered By: Good Garcia on 56-20-4882Gtdtivw (U) [Mass/Vol]NegativeNegativeOhiohealth Hardin Memorial HospitalLeukocytes [#/volume] corrected for nucleated erythrocytes in Blood by Automated counOrdered By: Good Garcia on 44-29-7622RWZ corrected for nucl RBC Auto (Bld) [#/Vol]5.3 10*3/uL3.8-11.6FKettering Health Miamisburg Leukocytes [#/volume] in Blood by Automated countOrdered By: Good Garcia on 02-04-6118EZS (Bld) [#/Vol]5.3 10*3/uLNormal3.8-11.6FKettering Health MiamisburgComment on above:Performed By: #### GS, CSFCCDIFF, CSF TP, CSF PCR PANEL, CSF GLU, AERC #### [facility] [address] [place] [address] USALymphocytes [#/volume] in Blood by Automated countOrdered By: Good Garcia on 32-23-5868Tvrmqsoswgc (Bld) [#/Vol]1.7 10*3/uLNormal1.00-4.8 [facility] HospitalComment on above:Performed By: #### GS, CSFCCDIFF, CSF TP, CSF PCR PANEL, CSF GLU, AERC #### [facility] [address] [place] [address] USALymphocytes/100 leukocytes in Blood by Automated count Ordered By: Good Garcia on 13-65-3683Klnhlueaiyh/100 WBC (Bld)31.5 %Normal. [facility] HospitalComment on above:Performed By: #### GS, CSFCCDIFF, CSF TP, CSF PCR PANEL, CSF GLU, AERC #### [address] [Entitic mass] by Automated countOrdered By: Good Garcia on 73-72-2352UHN (RBC) [Entitic mass]30.4 vdIqqprh23.7-34.3FKettering Health MiamisburgComment on above:Performed By: #### GS, CSFCCDIFF, CSF TP, CSF PCR PANEL, CSF GLU, AERC #### [address] Auto (RBC) [Mass/Vol]Ordered By: Good Garcia on 97-72-6890XNVT (RBC) [Mass/Vol]34.0 g/dL32.0-35.0[facility] SystemV [Entitic volume] by Automated countOrdered By: Good Garcia on 59-86-6872YLY (RBC) [Entitic vol]89.6 hVTnrblo16-318ImqemmdebOhiohealth Hardin Memorial HospitalComment on above:Performed By: #### GS, CSFCCDIFF, CSF TP, CSF PCR PANEL, CSF GLU, AERC #### [address] [place] [address] USAMonocyte distribution width [Entitic volume] in Blood by AutomatedOrdered By: Good Garcia on 99-75-2553Pqquxzfy distribution width Auto (Bld) [Entitic vol]16.08 %0.00-20.00Ohio[facility] Memorial HospitalNeutrophils [#/volume] in Blood by Automated countOrdered By: Good Garcia on 09-14-2023 Neutrophils (Bld) [#/Vol]3.1 10*3/uLNormal1.8-7.7FKettering Health MiamisburgComment on above:Performed By: #### GS, CSFCCDIFF, CSF TP, CSF PCR PANEL, CSF GLU, AERC #### [facility] [address] [place], [place] [id number] USANitrite Test strip Ql (U)Ordered By: Good Garcia on 65-97-8038Imkmxid Ql (U)NegativeNegativeOhiohealth Hardin Memorial HospitalNo Panel InformationOrdered By: Good Garcia on 32-28-3698Enthiuczb GFR (CKD-EPI)> 60.0 mL/MinOhiohealth Hardin Memorial HospitalPharmacy Creatinine Clearance (Chem 59.72Ohio[facility] HospitalNo Panel InformationOrdered By: Radiologist Radiology on 97-20-9088[facility] Work Phone: No Panel Informationon 92-29-3536Qnrinphzf Study observation (narrative)NOMS HealthcareNucleated erythrocytes [Presence] in Blood by Automated countOrdered By: Good Garcia on 50-31-1208Kfjcutsxw RBC Auto Ql (Bld)0.1 /100{WBC}0-0.5FKettering Health MiamisburgOpiates [Presence] in Urine by Screen methodOrdered By: Good Garcia on 47-90-8617Aevvfmq Screen Ql (U)PositiveNegativeOhiohealth Hardin Memorial HospitalPhencyclidine Screen Ql (U) Ordered By: Good Garcia on 09-02-3672Xvimbewrmlcjl Ql (U)NegativeNegative [facility] HospitalPlatelet mean volume [Entitic volume] in Blood by Automated countOrdered By: Good Garcia on 88-62-3171Amcapkkf mean volume (Bld) [Entitic vol]7.3 fLNormal6.3-10.7FKettering Health MiamisburgComment on above:Performed By: #### GS, CSFCCDIFF, CSF TP, CSF PCR PANEL, CSF GLU, AERC #### [facility] [address] [place] [address] USAPlatelets [#/volume] in Blood by Automated countOrdered By: Good Garcia on 08-74-3751Qrvxqqldl (Bld) [#/Vol]246 10*3/hMXelxxn920-657 [facility] HospitalComment on above:Performed By: #### GS, CSFCCDIFF, CSF TP, CSF PCR PANEL, CSF GLU, AERC #### [facility] [address] [place] [address] USAPotassium [Moles/volume] in Serum or PlasmaOrdered By: Good Garcia on 65-62-2141Jkwsuktci [Moles/Vol]3.8 mmol/LNormal3.5-5.1FKettering Health MiamisburgComment on above:Performed By: #### GS, CSFCCDIFF, CSF TP, CSF PCR PANEL, CSF GLU, AERC #### [facility] [address] [place] [address] USAProtein Auto test strip (U) [Mass/Vol]Ordered By: oGod Garcia on 12-03-8733Gxkxxpy (U) [Mass/Vol]NegativeNegativeOhiohealth Hardin Memorial HospitalProtein [Mass/volume] in Serum or PlasmaOrdered By: Good Garcia on 76-84-0491Iubdnwv [Mass/Vol]6.2 g/dLLow6.4-8.9Ohio[facility] HospitalComment on above:Performed By: #### GS, CSFCCDIFF, CSF TP, CSF PCR PANEL, CSF GLU, AERC #### [facility] [address] [place] [address] USASerum globulin measurement by calculation (mass/volume) Ordered By: Good Garcia on 86-44-8309Yqhursxq (S) [Mass/Vol]2.2 g/dLNoal [facility] HospitalComment on above:Performed By: #### GS, CSFCCDIFF, CSF TP, CSF PCR PANEL, CSF GLU, AERC #### [facility] [address] [place] [address] USASerum or plasma albumin/globulin mass ratioOrdered By: Good Garcia on 52-35-1723Kzgxkhl/Globulin [Mass ratio]1.8 {ratio}Normal [facility] HospitalComment on above:Performed By: #### GS, CSFCCDIFF, CSF TP, CSF PCR PANEL, CSF GLU, AERC #### [facility] [address] [place] [address] USASerum or plasma anion gap determinationOrdered By: Good Garcia on 87-66-0970Wlupf gap [Moles/Vol]7.6 mmol/LNormal6.0-15.0[facility] HospitalComment on above:Performed By: #### GS, CSFCCDIFF, CSF TP, CSF PCR PANEL, CSF GLU, AERC #### [facility] [address] [place] [address] USASodium [Moles/volume] in Serum or PlasmaOrdered By: Good Garcia on 88-48-7139Yxphei [Moles/Vol]138 mmol/YTvgjyp792-451YpphqjqaqOhiohealth Hardin Memorial HospitalComment on above:Performed By: #### GS, CSFCCDIFF, CSF TP, CSF PCR PANEL, CSF GLU, AERC #### [facility] [address] [place] [address] USASpecific gravity Auto test strip (U) [Rel density]Ordered By: Good Garcia on 16-02-9868Effmaqhl gravity (U) [Rel density]1.0041.001-1.030 [facility] HospitalUrea nitrogen [Mass/volume] in Serum or Plasma Ordered By: Good Garcia on 73-07-4311Visg nitrogen [Mass/Vol]8 mg/dLNormal7-25 [facility] HospitalComment on above:Performed By: #### GS, CSFCCDIFF, CSF TP, CSF PCR PANEL, CSF GLU, AERC #### [facility] [address] [place] [id number] USAUrinalysison 88-49-5255Lzmocylyzb (U)ClearNormalClearThe Un[facility]heastern Physician GroupComment on above:Order Comment: Comment tube 3Performed By: #### GS, CSFCCDIFF, CSF TP, CSF PCR PANEL, CSF GLU, AERC #### [place] [address] USABilirubin,UrineNegativeNormalNegativeThe [facility] Physician GroupComment on above:Order Comment: Comment tube 3Performed By: #### GS, CSFCCDIFF, CSF TP, CSF PCR PANEL, CSF GLU, AERC #### [place] [address] USAGlucose Ql (U)NormalNormalNormalThe [facility] Physician GroupComment on above:Order Comment: Comment tube 3Performed By: #### GS, CSFCCDIFF, CSF TP, CSF PCR PANEL, CSF GLU, AERC #### [place] [address] USAKetones Ql (U)NegativeNormalNegativeAdventhealth Wauchula Physician GroupComment on above:Order Comment: Comment tube 3Performed By: #### GS, CSFCCDIFF, CSF TP, CSF PCR PANEL, CSF GLU, AERC #### [place] [address] USALeukocyte esterase Test strip Ql (U)NegativeNormalNegative The [facility] Physician GroupComment on above:Order Comment: Comment tube 3 Performed By: #### GS, CSFCCDIFF, CSF TP, CSF PCR PANEL, CSF GLU, AERC #### [place] [address] USANitrite,UrineNegativeNormalNegativeThe [facility] Physician GroupComment on above:Order Comment: Comment tube 3Performed By: #### GS, CSFCCDIFF, CSF TP, CSF PCR PANEL, CSF GLU, AERC #### [place] [address] USAOccult Blood,UrineNegativeNormalNegativeThe [facility] Southeastern Physician GroupComment on above:Order Comment: Comment tube 3Result Comment: PERFORMED BY: [place] [address] PATHOLOGIST [employer] M.D.Performed By: #### GS, CSFCCDIFF, CSF TP, CSF PCR PANEL, CSF GLU, AERC #### [facility] [address] [place] [address] USAProtein,UrineNegativeNormalNegativeThe [facility] Physician GroupComment on above:Order Comment: Comment tube 3Performed By: #### GS, CSFCCDIFF, CSF TP, CSF PCR PANEL, CSF GLU, AERC #### [facility] [address] [place] [address] USASpecificy [place],Urine1.678Oyqymz0.001-1.030The [facility] Physician GroupComment on above:Order Comment: Comment tube 3Performed By: #### GS, CSFCCDIFF, CSF TP, CSF PCR PANEL, CSF GLU, AERC #### [facility] [address] [place] [address] USAUrobilinogen,UrineNormalNormalNormalThe [facility] Physician GroupComment on above:Order Comment: Comment tube 3Performed By: #### GS, CSFCCDIFF, CSF TP, CSF PCR PANEL, CSF GLU, AERC #### [facility] [address] [place] [address] USAUrine clarity by refractometry automatedOrdered By: Good Garcia on 62-78-7544Empvndf Refractometry automated (U)ClearCleMercy Health St. Rita's Medical CenterUrine glucose measurement by automated test strip (mass/volume)Ordered By: Good Garcia on 96-57-7494Npmbjfj Auto test strip (U) [Mass/Vol]Normal mg/dLNormMetroHealth Main Campus Medical CenterUrine hemoglobin detection by automated test stripOrdered By: Good Garcia on 09-14-2023 Hemoglobin Auto test strip Ql (U)NegativeNegativeOhiohealth Hardin Memorial HospitalUrine leukocyte esterase detection by automated test stripOrdered By: Good Garcia on 88-73-4618Khsgqmnkc esterase Auto test strip Ql (U)Negative NegativeOhiohealth Hardin Memorial HospitalUrine pH measurement by automated test stripOrdered By: Good Garcia on 04-47-2558xG (U)7.0 [pH]Normal5.0-9.0[facility] HospitalComment on above:Order Comment: Comment tube 3Performed By: #### GS, CSFCCDIFF, CSF TP, CSF PCR PANEL, CSF GLU, AERC #### [facility] [address] [place] [id number] USAUrobilinogen Auto test strip (U) [Mass/Vol]Ordered By: Good Garcia on 13-37-6324Drfjophffjwh (U) [Mass/Vol]Normal mg/dLNormMetroHealth Main Campus Medical CenterTBH UA (CLEAN/CATCH) MICROSCOPIC IF INDICATEon 78-42-6382SFEPCFKNN URINENegativeNEGATIVENOMS HealthcareBLOOD URINENegative NEGATIVENOAL HealthcareClarity (U)CLEARCLEARNOMS HealthcareColor (U)LT. YELLOW YELLOWNOAL HealthcareGLUCOSE URINE UANegativeNEGATIVE mg/dLNOAL Healthcare Interpretation and review of laboratory resultsAbnormalNOMS HealthcareKetones Ql (U)NegativeNEGATIVE mg/dLNOAL HealthcareLeukocyte esterase Test strip Ql (U) TRACEAbnormalNEGATIVENOMS HealthcareNITRITE URINENegativeNEGATIVENOMS Healthcare pH (U)5.0 [pH]5.0 - 9.0NOMS HealthcarePROTEIN URINENegativeNEG/TRACE mg/dLNOAL HealthcareSPECIFIC GRAVITY URINE1.0251.005 - 1.025NOAL HealthcareURINE MICROSCOPIC INDICATEDYESNOMS HealthcareUROBILINOGEN URINE0.2 EU/dL0.2 - 1.0 EU/dLNOAL HealthcareCLINISYNCNINTEGRIS MIAMI [facility] – [place] HealthcareAlanine aminotransferase [Enzymatic activity/volume] in Serum or PlasmaOrdered By: Robert Caruso on 97-57-9723FLT [Catalytic activity/Vol]14 U/L7-52Ohio[facility] HospitalAlbumin [Mass/volume] in Serum or Plasma by Bromocresol green (BCG) dye binding metho Ordered By: Robert Caruso on 82-19-9074Dluhtsh BCG dye [Mass/Vol]4.4 g/dL3.5-5.7 [facility] HospitalAlkaline phosphatase [Enzymatic activity/volume] in Serum or PlasmaOrdered By: Robert Caruso on 07-40-6134QEW [Catalytic activity/Vol]48 U/T24-757ZjhnlhriuOhiohealth Hardin Memorial HospitalAmphetamine Screen Ql (U)Ordered By: Robert Caruso on 51-45-0733Bkhkkvizopic Ql (U)Negative NegativeOhiohealth Hardin Memorial HospitalAspartate aminotransferase [Enzymatic activity/volume] in Serum or PlasmaOrdered By: Robert Caruso on 88-69-3917KRM [Catalytic activity/Vol]21 U/O91-25DnwtqyojkOhiohealth Hardin Memorial HospitalBarbiturates [Presence] in Urine by Screen methodOrdered By: Robert Caruso on 05-25-2023 Barbiturates Screen Ql (U)NegativeNegativeOhiohealth Hardin Memorial Hospital Basophils Auto (Bld) [#/Vol]Ordered By: Robert Caruso on 30-17-0113Okpzmpoux (Bld) [#/Vol]0.0 10*3/uL0.0-0.2FKettering Health MiamisburgBasophils/100 WBC Auto (Bld)Ordered By: Robert Caruso on 48-26-8898Qfehdsggk/100 WBC (Bld)0.5 %. [facility] HospitalBenzodiazepines Screen Ql (U)Ordered By: Robert Caruso on 01-10-4953Yjoukexmhyuuxmp Ql (U)NegativeNegFisher-Titus Medical CenterBenzoylecgonine [Presence] in Urine by Screen methodOrdered By: Robert Caruso on 93-58-7313Esastdgnhjdrwvf Screen Ql (U)NegativeNegFisher-Titus Medical CenterBilirubin.total [Mass/volume] in Serum or PlasmaOrdered By: Robert Caruso on 75-04-3145Bltbfmlaw [Mass/Vol]0.8 mg/dL0.3-1.0[facility] HospitalCalcium [Mass/volume] in Serum or PlasmaOrdered By: Robert Caruso on 90-95-1780Vaozugx [Mass/Vol]10.1 mg/dL8.6-10.3FKettering Health MiamisburgCannabinoids [Presence] in Urine by Screen methodOrdered By: Robert Caruso on 38-15-5101Onbludfayibr Screen Ql (U)NegativeNegFisher-Titus Medical CenterComment on above:These are unconfirmed results and should not be used for legal purposes. Drug Cut-Off Concentration: AMPH 1000 ng/mL GABRIELA 200 ng/mL SIVA 200 ng/mL COCM 300 ng/mL OP 300 ng/mL PCP 25 ng/mL THC 20 ng/mLCarbon dioxide, total [Moles/volume] in Serum or PlasmaOrdered By: Robert Caruso on 50-50-1490JR7 [Moles/Vol]29.6 mmol/L21.0-31.0[facility] Chloride [Moles/volume] in Serum or PlasmaOrdered By: Robert Caruso on 05-25-2023 Chloride [Moles/Vol]102 mmol/V74-897BjpfucoodOhiohealth Hardin Memorial HospitalCreatinine [Mass/volume] in Serum or PlasmaOrdered By: Robert Caruso on 57-43-2082Shzvkaawlr [Mass/Vol]0.76 mg/dL0.60-1.20[facility] Memorial HospitalEosinophils Auto (Bld) [#/Vol]Ordered By: Robert Caruso on 94-78-0399Kaxtgyssfkp (Bld) [#/Vol]0.0 10*3/uL0.0-0.45Ohio[facility] Memorial HospitalEosinophils/100 WBC Auto (Bld) Ordered By: Robert Caruso on 04-55-2115Ezeauwdhsct/100 WBC (Bld)0.1 %.Ohiohealth Hardin Memorial HospitalErythrocyte distribution width Auto (RBC) [Ratio]Ordered By: Robert Caruso on 14-51-4301Oinhtbwwlfl distribution width (RBC) [Ratio]12.9 % 11.9-15.3FKettering Health MiamisburgEthanol [Mass/volume] in Serum or PlasmaOrdered By: Robert Caruso on 78-13-2001Hnogorl [Mass/Vol]mg/dLOhiohealth Hardin Memorial HospitalEthanol [Mass/Vol]TNPOhiohealth Hardin Memorial Hospital Comment on above:Test not performedGlobulin Calc (S) [Mass/Vol]Ordered By: Robert Caruso on 76-32-5844Ztfukxil (S) [Mass/Vol]2.9 g/dLOhiohealth Hardin Memorial HospitalGlucose [Mass/volume] in Serum or PlasmaOrdered By: Robert Caruso on 49-74-2770Gxpoeag [Mass/Vol]120 mg/pC97-359VlvwxxhroOhiohealth Hardin Memorial Hospital Comment on above:ADA recommended reference rangeRandom Glucose Reference Range is dependent on time and content of last meal. Glucose of more than 200 mg/dL in a nonstressed, ambulatory subject supports the diagnosisof Diabetes Mellitus. HCG ( test) IA.rapid Ql (U)Ordered By: Robert Caruso on 90-27-6361PMH ( test) Ql (U)NegativeOhiohealth Hardin Memorial HospitalHematocrit Auto (Bld) [Volume fraction]Ordered By: Robert Caruso on 30-83-3032Aevsttswwt (Bld) [Volume fraction]41.6 %34.0-46.4FKettering Health MiamisburgHemoglobin [Mass/volume] in BloodOrdered By: Robert Caruso on 70-98-3146Qajqujlpol (Bld) [Mass/Vol]14.1 g/dL11.8-15.4FKettering Health MiamisburgLeukocytes [#/volume] corrected for nucleated erythrocytes in Blood by Automated coun Ordered By: Robert Caruso on 40-66-7013BUC corrected for nucl RBC Auto (Bld) [#/Vol]7.0 10*3/uL3.8-11.6FKettering Health [place]amisburgLymphocytes Auto (Bld) [#/Vol]Ordered By: Robert Caruso on 50-96-5543Wwitdlubehn (Bld) [#/Vol]1.1 10*3/uL1.00-4.8[facility] HospitalLymphocytes/100 WBC Auto (Bld) Ordered By: Robert Caruso on 79-23-4857Jqyverrsujb/100 WBC (Bld)15.5 %.[facility] HospitalMCH Auto (RBC) [Entitic mass]Ordered By: Robert Caruso on 75-37-7394JPJ (RBC) [Entitic mass]29.9 pg24.7-34.3FKettering Health MiamisburgMCHC Auto (RBC) [Mass/Vol]Ordered By: Robert Caruso on 37-29-1486WFLX (RBC) [Mass/Vol]34.0 g/dL32.0-35.0[facility] HospitalMCV Auto (RBC) [Entitic vol]Ordered By: Robert Caruso on 68-36-8867FHY (RBC) [Entitic vol]87.8 fL 80-100Ohio[facility] HospitalMonocyte distribution width [Entitic volume] in Blood by AutomatedOrdered By: Robert Caruso on 10-15-4541Jsnviqgd distribution width Auto (Bld) [Entitic vol]17.76 %0.00-20.00[facility] HospitalMonocytes Auto (Bld) [#/Vol]Ordered By: Robert Caruso on 05-25-2023 Monocytes (Bld) [#/Vol]0.3 10*3/uL0.0-0.8[facility] Monocytes/100 WBC Auto (Bld)Ordered By: Robert Caruso on 72-86-0874Blgzhitzn/100 WBC (Bld)3.9 %.[facility] HospitalNeutrophils Auto (Bld) [#/Vol] Ordered By: Robert Caruso on 87-27-3935Natmiwqxbij (Bld) [#/Vol]5.6 10*3/uL1.8-7.7 [facility] HospitalNeutrophils/100 WBC Auto (Bld)Ordered By: Robert Caruso on 23-14-3141Zpmifyhesit/100 WBC (Bld)80.0 %.[facility] HospitalNo Panel InformationOrdered By: Robert Caruso on 27-59-9846Zaqkmjeab GFR (CKD-EPI)> 60.0 mL/MinOhiohealth Hardin Memorial HospitalPharmacy Creatinine Clearance (Chem59.72[facility] HospitalNucleated erythrocytes [Presence] in Blood by Automated countOrdered By: Robert Caruso on 05-25-2023 Nucleated RBC Auto Ql (Bld)0.0 /100{WBC}0-0.5FKettering Health [place] Opiates [Presence] in Urine by Screen methodOrdered By: Robert Caruso on 52-37-6339Agejflf Screen Ql (U)NegativeNegativeOhiohealth Hardin Memorial Hospital Phencyclidine Screen Ql (U)Ordered By: Robert Caruso on 41-50-0636Gmwzayagngnix Ql (U)NegativeNegativeOhiohealth Hardin Memorial HospitalPlatelet mean volume Auto (Bld) [Entitic vol]Ordered By: Robert Caruso on 57-40-6912Crwrygpm mean volume (Bld) [Entitic vol]7.9 fL6.3-10.7FKettering Health MiamisburgPlatelets Auto (Bld) [#/Vol]Ordered By: Robert Caruso on 49-71-7727Qouykuxna (Bld) [#/Vol]292 10*3/dA397-939WikifhgqtOhiohealth Hardin Memorial HospitalPotassium [Moles/volume] in Serum or PlasmaOrdered By: Robert Caruso on 95-96-0337Axumukeuz [Moles/Vol]3.7 mmol/L 3.5-5.1FKettering Health MiamisburgProtein [Mass/volume] in Serum or Plasma Ordered By: Robert Caruso on 17-56-0355Cwhgrrj [Mass/Vol]7.3 g/dL6.4-8.9[facility] HospitalRBC Auto (Bld) [#/Vol]Ordered By: Robert Caruso on 50-25-6562BJX (Bld) [#/Vol]4.74 10*6/uL3.60-5.00[facility] Medical Centererum or plasma albumin/globulin mass ratioOrdered By: Robert Caruso on 07-61-5897Nfjuybc/Globulin [Mass ratio]1.5 {ratio}[facility] Medical Centererum or plasma anion gap determinationOrdered By: Robert Caruso on 15-43-6998Ligcr gap [Moles/Vol]10.1 mmol/L6.0-15.0[facility] Centerodium [Moles/volume] in Serum or PlasmaOrdered By: Robert Caruso on 20-13-4935Ovxfky [Moles/Vol]138 mmol/M673-966HpqhwdvcyOhiohealth Hardin Memorial Hospital Urea nitrogen [Mass/volume] in Serum or PlasmaOrdered By: Robert Caruso on 82-86-0013Radc nitrogen [Mass/Vol]12 mg/dL7-25[facility] WBC Auto (Bld) [#/Vol]Ordered By: Robert Caruso on 59-74-7827VZH (Bld) [#/Vol]7.0 10*3/uL3.8-11.6FKettering Health [place].Fentanyl Scrn wo Conf,Uron 87-76-2086Vb Fentanyl ScrnNegativeNormalNEG <1.0[facility] Comment on above:Performed By: #### CD:[id number] #### [facility] [address] [place], [place] [address]Mv Fentanyl Scrn Qnt0.10 ng/mLNormal<=0.99[facility] County HospitalComment on above:Performed By: #### CD:[id number] #### [address] [address].eGFRon 40-96-2534VKO/1.73 sq M.predicted MDRD (S/P/Bld) [Vol rate/Area]mL/min/{1.73_m2}Normal>=60[facility] County HospitalComment on above:Result Comment: [facility] have implemented the eGFR calculation [...] Age = yearsPerformed By: #### EGFR #### [address] [address]UFE w/ Diffon 15-51-7276Lugjplpqfnu distribution width (RBC) [Ratio]13.2 %Azqpbc74.6-14.8BMansfield HospitalComment on above: Performed By: #### CBC #### [address] [address]Ccxdfbsgkw (Bld) [Volume fraction]40.9 %Aqtpjp66.0-46.0 [facility] HospitalComment on above:Performed By: #### CBC #### [address] [address]Xqdcyduboe (Bld) [Mass/Vol]13.9 g/dXLdqyna46.0-16.0[facility] HospitalComment on above:Performed By: #### CBC #### [address] [address]ANO (RBC) [Entitic mass]30.1 aaJgbhvg40.0-35.0[facility] HospitalComment on above:Performed By: #### CBC #### [address] [address]IGMT24.1 %Cbnabn07.0-37.0[facility] HospitalComment on above:Performed By: #### CBC #### [address] [address]ZIB (RBC) [Entitic vol]88.2 wXLyldqc52.0-100.0[facility] HospitalComment on above:Performed By: #### CBC #### [address] [address]Koliopce334 x10*3/diCChgzqt171-562RhpdmxgncWood County HospitalComment on above:Performed By: #### CBC #### [address] [address]Uoljsnca mean volume (Bld) [Entitic vol]7.6 fLNormal6.7-10.6 [facility] HospitalComment on above:Performed By: #### CBC #### [address] [address]USY1.63 x10*6/mcLNormal3.80-5.20[facility] Comment on above:Performed By: #### CBC #### [address], [place] [address]KSP2.6 x10*3/mcLNormal4.5-11.0[facility] Comment on above:Performed By: #### CBC #### [address], [place] [address]COOcs 10-71-1941Pdrjbkk [Mass/Vol]4.5 g/dLNormal3.2-4.9 [facility] HospitalComment on above:Performed By: #### COMP #### [address] [address]Wnqqpze/Globulin [Mass ratio]1.4 {ratio}Normal1.1-2.2BMansfield HospitalComment on above:Performed By: #### COMP #### [address] [address]Kaa Phos47 IU/JUzadim74-52LbasahmgfWood County HospitalComment on above:Performed By: #### COMP #### [address], [place] [address]GKR [Catalytic activity/Vol]18 U/UIzsidp97-27XoqdxnstyWood County HospitalComment on above:Performed By: #### COMP #### [address] [place] [address]Nmzgt gap [Moles/Vol]14 mmol/LNormal7-17[facility] HospitalComment on above:Performed By: #### COMP #### [address] [address]KTM [Catalytic activity/Vol]28 U/BGevboy58-19RobajtnneWood County HospitalComment on above:Performed By: #### COMP #### [address], [place] [address]Nqrk Total0.8 mg/dLNormal0.3-1.2BMansfield Hospital Comment on above:Performed By: #### COMP #### [address] [address]Eyxnlsx [Mass/Vol]10.1 mg/dLNormal8.5-10.3BMansfield HospitalComment on above:Performed By: #### COMP #### [address] [address]Elynduom [Moles/Vol]100 mmol/OUmdqhp23-811RbzobybleWood County HospitalComment on above:Performed By: #### COMP #### [address] [address]JY9 [Moles/Vol]27 mmol/NIcyhhq01-88MqivqpgguWood County HospitalComment on above:Performed By: #### COMP #### [address] [address]Qeivrhlvlm [Mass/Vol]0.96 mg/dLNormal0.44-1.03[facility] HospitalComment on above:Performed By: #### COMP #### [address] [address]Ztwqbrn [Mass/Vol]116 mg/wKGixz51-57WrrxbjavaWood County HospitalComment on above:Performed By: #### COMP #### [address] [address]Yofvzfsmg [Moles/Vol]4.0 mmol/LNormal3.4-4.8BMansfield HospitalComment on above:Performed By: #### COMP #### [address] [address]Wbsksuq [Mass/Vol]7.8 g/dLNormal6.5-8.1BMansfield HospitalComment on above:Performed By: #### COMP #### [address] [address]Vaegsa [Moles/Vol]137 mmol/NZiljim906-732KtobiylciWood County HospitalComment on above:Performed By: #### COMP #### [address] [address]Cthv nitrogen [Mass/Vol]13 mg/dLNormal8-26Wood County HospitalComment on above:Performed By: #### COMP #### [address] [address]Hxce nitrogen/Creatinine [Mass ratio]13.5 mg/mqEiovsf48.0-20.0 [facility] HospitalComment on above:Performed By: #### COMP #### [address] [address]JS Brain w/o Contraston 73-74-1459YN Brain w/o ContrastCT Brain w/o Contrast: 05/20/2023 [...] or other acute finding. Radiation Dose Estimate: CTDI(mGy):0.608316 / / / kVp:120.584318 / mAs:0.117520 / / / DLP(mGy- cm):5.453799Anme Part: Head CTDI(mGy):44.093808 / / / kVp:120.237738 / mAs:182.522759 / / / DLP(mGy- cm):813.548407Xcpk Part: Head Final Dictated by: Tremayne Butler MD Dictated DT/TM: 05.20.2023 2:48 pm Signed by: Tremayne Butler MD Signed (Electronic Signature): 05.20.2023 2:50 pm (If Report Is Signed, Electronically Signed in Other Vendor System)Normal Wood County HospitalDiff Autoon 69-51-8090Qpwh Absolute0.0 x10*3/mcL Normal0.0-0.2BMansfield HospitalComment on above:Performed By: #### .Automated Diff #### [address] [address]Uhiaapwqq/100 WBC (Bld)0.5 %Normal0.0-1.5BSelect Medical Cleveland Clinic Rehabilitation Hospital, Edwin Shaw SystemComment on above:Performed By: #### .Automated Diff #### [address] [address]Wqj Absolute0.0 x10*3/mcLNormal0.0-0.4BSelect Medical [facility] SystemComment on above:Performed By: #### .Automated Diff #### [address] [address]Eemageexqtz/100 WBC (Bld)0.4 %Normal0.0-5.4BSelect Medical [facility] Clinic [facility], [facility] SystemComment on above:Performed By: #### .Automated Diff #### [address] [address]Klhgc Absolute1.3 x10*3/mcLNormal1.0-4.8BSelect Medical [facility] SystemComment on above:Performed By: #### .Automated Diff #### [address] [address]Brcedpncsbl/100 WBC (Bld)22.8 %Low27.2-40.8BSelect Medical [facility] Clinic [facility], [facility] SystemComment on above:Performed By: #### .Automated Diff #### [address] [address]Nhqq Absolute0.3 x10*3/mcLNormal0.1-1.1BSelect Medical [facility] SystemComment on above:Performed By: #### .Automated Diff #### [address] [address]Knhlnyani/100 WBC (Bld)5.2 %Normal3.7-11.9BSelect Medical [facility] SystemComment on above:Performed By: #### .Automated Diff #### [address] [address]Wczvrv Absolute4.0 x10*3/mcLNormal1.8-7.7BSelect Medical [facility] SystemComment on above:Performed By: #### .Automated Diff #### [address] [place] [address]Fudxlz Auto71.1 %High47.2-70.8BMansfield Hospital Comment on above:Performed By: #### .Automated Diff #### [address] [address]EM Clinical Summaryon 51-84-6785CN Clinical Summary [address] [address] ED Clinical Summary Person Information Name: Donnie Bullock/[facility] Age: 67 Years : 1955 Sex: Female PCP: Remigio Simpson MD Marital Status: Phone: Race: White Ethnicity: Not or Language: Andorran Visit Reason: Psychiatric screening exam; psych screen Acuity: 2 Enc Type: Emergency Med Service: Emergency Medicine Arrival: 05/20/2023 13:12:08 Discharge: 05/20/2023 17:38:00 LOS: 000 04:26 Checkin: 05/20/2023 13:12:08 Checkout: 05/20/2023 17:38:00 Dispo Type: Home or Self Care Address: [address] [place] [address] [address] [place] [id number] Provider Notes: Diagnosis: 1:Encounter for medical screening [...] range between ( 27.2 and 40.8 ) Pacific Auto: 5.2 % -- Normal range between [...] range between ( 36.0 and 46.0 ) Pacific Absolute: 0.3 x10 MCH: 30.1 pg -- [...] 05/20/2023 15:28:08 Follow up: With: Address: When: [facility] With: Address: When: Remigio Simpson [facility] [place] [phone] Business (1) Within 1 week Discharge Orders: Discharge Patient 05/20/23 17:30:00 EST, Discharge to Home, Self Patient Education Information: Anxiety Reaction [facility] Poison Help line: . [facility] Hotline: [place] Tobacco Quit Line: [place], [place]) [address]: [phone] [place], [place]) [address]: (more content not included)...[facility] CenterED Note-Nursingon 10-69-7756PI Note-NursingPatients reports patient had covid 04/21/23 and most of her symptoms are stemming from that;increased memory loss, confusion, weight loss, panic attacks. Patient did take Paxlovid. Patient was seen at [facility] on Wednesday and taken off Xanax as they felt her hallucinations could be from that, and they prescribed hydroxizine. Patient appears anxious upon leaf tinner and tearful attimes. Patient denies SI and HI but is frustrated that she is having these issues and is not her normal self. Electronically signed by Odalys Munroe 05/20/23 14:33 ESTNormalWood County HospitalED Note-Physicianon 68-28-1664JT Note-PhysicianChief Complaint pt was sent over by [...] High Lymph Auto 05/20/23 15:21 22.8 Low Pacific Auto 05/20/23 15:21 5.2 Eos Auto 05/20/23 15:21 0.4 Basophil Auto 05/20/23 15:21 0.5 Neutro Absolute 05/20/23 15:21 4.0 Lymph Absolute 05/20/23 15:21 1.3 Pacific Absolute 05/20/23 15:21 0.3 Eos Absolute 05/20/23 [...] Scrn 05/20/23 13:25 Negative Ur Benzodia Scrn 01/04/24 13:25 Negative Ur Cannab Scrn 05/20/23 13:25 [...] Carrie ROGERS, Tremayne Mar Electronically signed by [place] Sherri ROGERS 05/25/23 20:00 [facility] ED Note-PhysicianChief Complaint pt was sent over [...] obtain a CT head and have social secretary speak with the patient she was sent in by her therapist that she describes it Sign out to Dr. Hernandez at the end of my shift for disposition and social secretary recommendation Assessment/Plan Psychiatric screening exam (Complaint of) [...] ROGERS, Anuj Orta / (more content not included)...NormalWood County HospitalEthanolon 22-68-4541Bixqxmk, Plasma<10Normal<=9BMansfield HospitalComment on above:Result Comment: To convert mg/dL to g/dL, divide result by 1,000. Legal limit of intoxication is 80mg/dL (0.08 g/dL). Performed By: #### ALC #### [address] [address]VPT Compon 22-02-1709Ootivlvnpg [Mass/Vol]100.2 mg/dLNormal [facility] SystemComment on above:Performed By: #### CD:[id number] #### [address] [address]Bx Amph ScrnNegativeNormalNEG = <1000[facility] SystemComment on above:Performed By: #### CD:[id number] #### [address] [address]Ta Gabriela ScrnNegativeNormalNEG = <200[facility] SystemComment on above:Performed By: #### CD:[id number] #### [address] [address]Dn Benzodia ScrnNegativeNormalNEG = <200[facility] SystemComment on above:Performed By: #### CD:[id number] #### [address] [address]Ib Cannab ScrnNegativeNormalNEG = <50[facility] SystemComment on above:Performed By: #### CD:[id number] #### [address] [address]Xa Cocaine ScrnNegativeNormalNEG = <300[facility] SystemComment on above:Performed By: #### CD:[id number] #### [address] [address]Bb Methadone ScnNegativeNormalNEG = <300[facility] SystemComment on above:Performed By: #### CD:[id number] #### [address] [address]Wz Opiate ScrnNegativeNormalNEG = <300[facility] SystemComment on above:Performed By: #### CD:[id number] #### [address] [address]Xg Oxy ScreenNegativeNormalNEG = <100Wood County HospitalComment on above:Performed By: #### CD:[id number] #### [address] [address]Sc Oxy Scrn Qnt9 ng/mLNormal<=99[facility] Comment on above:Performed By: #### CD:[id number] #### [address] [address]Ex PCP ScrnNegativeNormalNEG = <25Wood County HospitalComment on above:Performed By: #### CD:[id number] #### [address] [address]RM pH7.7Qazhhp0.5 - 7.8BMansfield HospitalComment on above:Performed By: #### CD:[id number] #### [address] [address]DZ Spec Grav1.506Yotowg4.003-1.035Wood County HospitalComment on above:Performed By: #### CD:[id number] #### [address] [address]Ckkexvr Colonoscopyon 13-04-3620Yneyykm Colonoscopy [id number]#1.00CD:127NoGrand Lake Joint Township District Memorial HospitalRemtempe [facility] 10-56-1961Sblnwivtk From: Sarah Griffiths LPN To: GSN - Clinical; Sent: 01/28/2023 13:00:59 EDT Show up: 12/27/2032 07:00:00 EDT Subject: colonoscopy recall Due Date/Time: 01/27/2033 07:00:00 EDT Reminder/Recall Patient due for screening colonoscopy 01/27/2033.NormalFisher Pj Medical CenterConsent for Procedure/Surgeryon 10-68-4909Wckawox for Procedure/Surgery [id number]#1.00CD:127[facility] CenterAmbulatory Visit Summaryon 42-83-9290Ijlaplbcoh Visit Summary DONNIE BULLOCK :1955 Visit Date:01/08/2023 [...] no longer receiving treatment for. Carpal tunnel [facility] CenterRAD - CT Reporton 07-14-5989FTM - CT [id number]#1.00CD:127[facility] Medical CenterPhysician Referralon 79-99-5573Nafwvptdl Referral [id number]#1.00CD:127[facility] Medical CenterCBC AUTO DIFFon 55-24-0548EFZF #0.0 103/ulNormal0.0-0.1[facility] on above:Performed By: #### CBC #### [facility] [address] [place] [address] Dr. Jess MarieBasophils/100 WBC (Bld)0.4 %Normal0.2-2.0[facility] Comment on above:Performed By: #### CBC #### [facility] [address] [address] [address] Jess Lemons #0.0 103/ulNormal0.0-0.7The [facility] Health TroyComment on above: Performed By: #### CBC #### [facility] [address] [place] [address] Dr. Jess Riceosinophils/100 WBC (Bld)0.4 %Critically low0.9-7.0[facility] on above:Performed By: #### CBC #### [facility] [address] [place] [address] Dr. Jess Ricerythrocyte distribution width (RBC) [Ratio]12.5 %Ujegud18.0-15.0 The [facility] TroyComment on above:Performed By: #### CBC #### [facility] [address] [place] [address] Dr. Jess MarieHematocrit (Bld) [Volume fraction]43.1 %Gtcvmi58.0-48.0[facility] on above:Performed By: #### CBC #### [facility] [address] [place] [address] Dr. Jess MarieHemoglobin (Bld) [Mass/Vol]14.0 g/dFHaofzy24.0-16.0[facility] on above:Performed By: #### CBC #### [facility] [address] [place] [address] Dr. Jess Belcher #0.01 10e3/ulNormal0.00-0.03The [facility] TroyComment on above:Performed By: #### CBC #### [facility] [address] [address] [address] Jess Belcher %0.2 %Normal0.0-0.5The [facility] on above: Performed By: #### CBC #### [facility] [address] [address] [address] Jess Lawson #1.4 103/ulNormal1.2-3.8[facility] on above:Performed By: #### CBC #### [facility] [address] [place] [address] Dr. Jess Kenneyhocytes/100 WBC (Bld)26.8 %Isiqsb96.5-60.0The [facility] on above:Performed By: #### CBC #### [facility] [address] [place] [address] Dr. Jess NoyolaUAL DIFF REQNONormalThe [facility] TroyComment on above: Performed By: #### CBC #### [facility] [address] [place] [address] Dr. Jses Sepulveda (RBC) [Entitic mass]29.7 rfOstdul09.7-34.0The [facility] on above:Performed By: #### CBC #### [facility] [address] [place] [address] Dr. Jess Sepulveda (RBC) [Mass/Vol]32.5 g/dXUvmgcv19.9-35.2The [facility] on above:Performed By: #### CBC #### [facility] [address] [place] [address] Dr. Jess Sepulveda (RBC) [Entitic vol]91.3 tZRomgdx37.0-99.0The [facility] on above:Performed By: #### CBC #### [facility] [address] [place] [address] Dr. Jess Wellington #0.3 103/ulNormal0.3-0.8The [facility] on above:Performed By: #### CBC #### [facility] [address] [place] [address] Dr. Jess Zarateocytes/100 WBC (Bld)5.2 %Normal1.7-12.0The [facility] Comment on above:Performed By: #### CBC #### [facility] [address] [place] [address] Dr. Jess JaneUT #3.5 103/ulNormal1.4-6.5The [facility] TroyComment on above:Performed By: #### CBC #### [facility] [address] [place] [address] Dr. Jess Janeutrophils/100 WBC (Bld)67.0 %Xaxbes76.0-75.0The [facility] TroyComment on above:Performed By: #### CBC #### [facility] [address] [place] [address] Dr. Jess MariePlatelet mean volume (Bld) [Entitic vol]9.7 fLNormal9.5-13.5The [facility] TroyComment on above:Performed By: #### CBC #### [facility] [address] [place] [address] Dr. Jess MariePLT230 103/npNuhlmh624-469Zta [facility] TroyComment on above: Performed By: #### CBC #### [facility] [address] [place] [address] Dr. Jess MarieRBC4.72 106/ulNormal4.20-5.40The [facility] TroyComment on above:Performed By: #### CBC #### [facility] [address] [place] [address] Dr. Jess MarieWBC5.2 103/ulNormal4.0-11.0The [facility] TroyCommackinac straits hospital on above: Performed By: #### CBC #### [facility] [address] [place] [address] Dr. Jess MarieGLYCOHEMOGLOBIN A1Con 18-47-8314TSI RECOMMENDATIONSEE BELOWNormal The [facility] TroyComment on above:Result Comment: ADA RECOMMENDED LIMIT 4.0 - 6.0 ADA THERAPEUTIC TARGET < 7.0 ACTION SUGGESTED > 7.0Performed By: #### A1C #### [facility] [address] [place] [address] Dr. Jess MarieGlucose [Mass/Vol]123 mg/dLOhioHealth O'Bleness Hospital on above:Performed By: #### A1C #### [facility] [address] [place] [address] Dr. Jess MarieHbA1c (Bld) [Mass fraction]5.9 %Normal4.5-6.2[facility] on above:Performed By: #### A1C #### [facility] [address] [place] [address] Dr. Jess AndresID PROFILEon 11-47-1070QAAD-HDL RATIO NORMSSt. John of God HospitalCommackinac straits hospital on above:Result Comment: 3.3 - 4.4 LOW RISK 4.4 - 7.1 AVERAGE RISK 7.1 - 11.0 MODERATE RISK >11.0 HIGH RISKPerformed By: #### TSH, LIVER, BMP, LIPID #### [facility] [address] [place] [address] Dr. Jess MarieCholesterol [Mass/Vol]267 mg/dLCritically high<=200The [facility] on above:Performed By: #### TSH, LIVER, BMP, LIPID #### [facility] [address] [place] [address] Dr. Jess MarieCholesterol in HDL [Mass/Vol]79 mg/dLCritically feem58-91Rwg [facility] on above:Performed By: #### TSH, LIVER, BMP, LIPID #### [facility] [address] [place] [address] Dr. Jess MarieCholesterol in LDL [Mass/Vol]172.4 mg/dLOhioHealth O'Bleness Hospital on above:Performed By: #### TSH, LIVER, BMP, LIPID #### [facility] [address] [place] [address] Dr. Jess Mgesterrenae.total/Cholesterol in HDL [Mass ratio]3.4 {ratio} NormalFort Hamilton HospitalComment on above:Performed By: #### TSH, LIVER, BMP, LIPID #### [facility] [address] [place] [address] Dr. Jess Esquivel NORMAL> or = 60 mg/dl - LOW CARDIOVASCULAR RISK <40 mg/dl - HIGH CARDIOVASCULAR RISKLake County Memorial Hospital - WestComment on above:Performed By: #### TSH, LIVER, BMP, LIPID #### [facility] [address] [address] [address] Jess Xiong CALC NORMALSEE BELOWNoProvidence HospitalComment on above:Result Comment: <100 mg/dl OPTIMAL 100 - 129 mg/dl NEAR OR ABOVE OPTIMAL 130 - 159 mg/dl BORDERLINE HIGH 160 - 189 mg/dl HIGH >190 mg/dl VERY HIGH Performed By: #### TSH, LIVER, BMP, LIPID #### [facility] [address] [place] [address] Dr. Jess MarieTriglyceride [Mass/Vol]78 mg/dLNormal<=150[facility] Comment on above:Performed By: #### TSH, LIVER, BMP, LIPID #### [facility] [address] [place] [address] Dr. Jess Cardenas CALC15.6 mg/dLNoProvidence HospitalComment on above: Performed By: #### TSH, LIVER, BMP, LIPID #### [facility] [address] [place] [address] Dr. Jess Valerio PROFILEon 27-06-7691Wccepwo [Mass/Vol]3.9 g/dLNormal3.4-5.0 The [facility] TroyComment on above:Performed By: #### TSH, LIVER, BMP, LIPID #### [facility] [address] [place] [address] Dr. Jess MarieAlbumin/Globulin [Mass ratio]0.9 {ratio}NormalFort Hamilton HospitalComment on above:Performed By: #### TSH, LIVER, BMP, LIPID #### [facility] [address] [place] [address] Dr. Jess Kidd [Catalytic activity/Vol]61 U/IHeehdt79-449Lhl [facility] TroyComment on above:Performed By: #### TSH, LIVER, BMP, LIPID #### [facility] [address] [address] [address] Jess Penaloza [Catalytic activity/Vol]25 U/AVfxvlh12-72Pwl [facility] TroyComment on above:Performed By: #### TSH, LIVER, BMP, LIPID #### [facility] [address] [address] [address] Jess Zaldivar [Catalytic activity/Vol]27 U/UTngnrb14-43Rxx [facility] TroyComment on above:Performed By: #### TSH, LIVER, BMP, LIPID #### [facility] [address] [place] [address] Dr. Jess FlynnI, CONJUGATED0.1 mg/dLNormal0.0-0.2[facility] Comment on above:Performed By: #### TSH, LIVER, BMP, LIPID #### [facility] [address] [place] [address] Dr. Jess Flynnirubin [Mass/Vol]0.7 mg/dLNormal0.2-1.0[facility] Comment on above:Performed By: #### TSH, LIVER, BMP, LIPID #### [facility] [address] [address] [address] Jess MarieGlobulin (S) [Mass/Vol]4.2 g/dLNormalThe [facility] TroyComment on above:Performed By: #### TSH, LIVER, BMP, LIPID #### [facility] [address] [place] [address] Dr. Jess MarieProtein [Mass/Vol]8.1 g/dLNormal6.4-8.2The [facility] Comment on above:Performed By: #### TSH, LIVER, BMP, LIPID #### [facility] [address] [place] [address] Dr. Jess MariePROF CHEM 8 (BAS METB)on 16-10-6196Pkpyz gap [Moles/Vol]13.1 mmol/LNormalThe [facility] TroyComment on above:Performed By: #### TSH, LIVER, BMP, LIPID #### [facility] [address] [address] [address] Jess MarieCalcium [Mass/Vol]9.6 mg/dLNormal8.5-10.1[facility] Comment on above:Performed By: #### TSH, LIVER, BMP, LIPID #### [facility] [address] [address] [address] Jess MarieChloride [Moles/Vol]105 mmol/VGeohnw74-370Pbk [facility] Comment on above:Performed By: #### TSH, LIVER, BMP, LIPID #### [facility] [address] [place] [address] Dr. Jess MarieCO2 [Moles/Vol]28.9 mmol/YAafeni42.0-32.0The [facility] Comment on above:Performed By: #### TSH, LIVER, BMP, LIPID #### [facility] [address] [place] [address] Dr. Jess MarieCreatinine [Mass/Vol]0.62 mg/dLNormal0.55-1.02The [facility] TroyComment on above:Performed By: #### TSH, LIVER, BMP, LIPID #### [facility] [address] [place] [address] Dr. Jess RiceGFR-AF SAMMARINESE>60Normal>=60The [facility] TroyComment on above:Performed By: #### TSH, LIVER, BMP, LIPID #### [facility] [address] [place] [address] Dr. Jess RiceGFR-NON AF SAMMARINESE>60Normal>=60The [facility] TroyComment on above:Performed By: #### TSH, LIVER, BMP, LIPID #### [facility] [address] [place] [address] Dr. Jess MarieGlucose [Mass/Vol]112 mg/dLCritically ffnd37-958Aym [facility] TroyComment on above:Performed By: #### TSH, LIVER, BMP, LIPID #### [facility] [address] [address] [address] Jess MariePotassium [Moles/Vol]5.0 mmol/LNormal3.5-5.1The [facility] Comment on above:Result Comment: specimen slightly hemolyzedPerformed By: #### TSH, LIVER, BMP, LIPID #### [facility] [address] [address] [address] Jess MarieSodium [Moles/Vol]142 mmol/TBfuzxe401-575Qsz [facility] Comment on above:Performed By: #### TSH, LIVER, BMP, LIPID #### [facility] [address] [address] [address] Jess MarieUrea nitrogen [Mass/Vol]15.0 mg/dLNormal7.0-18.0Fort [facility] HospitalComment on above:Performed By: #### TSH, LIVER, BMP, LIPID #### [facility] [address] [address] [address] Jess Wheeler nitrogen/Creatinine [Mass ratio]24.2 mg/mgNormalThe [facility] TroyComment on above:Performed By: #### TSH, LIVER, BMP, LIPID #### [facility] [address] [address] [address] Jess Burnette 16-16-8420EVB6.518 uIU/mLNormal0.358-3.740Fort Hamilton HospitalComment on above:Performed By: #### TSH, LIVER, BMP, LIPID #### [facility] [address] [place] [address] Dr. Jess Burger CAROTID ART BILon 86-83-2419SO CAROTID ART BILEXAMINATION: US CAROTID ART KEN [...] Electronically authenticated by: HERSON REBOLLEDO Date: 2022-09-10 12:26[facility]XR A[facility] FLAT_UPon 39-13-4364MB ABD FLAT_UPEXAMINATION: XR ABD FLAT_UP HISTORY: Constipation COMPARISON: No relevant comparison available. FINDINGS: BOWEL GAS PATTERN: Large amount of stool throughout the colon without abnormal dilation or obstruction. FREE AIR: None. CALCIFICATIONS: None significant. BONES: Scoliotic curvature of lumbar spine. No fracture. OTHER: Negative. IMPRESSION: 1. Large stool burden compatible with constipation. 2. No bowel obstruction. Electronically authenticated by: HERSON REBOLLEDO Date: 2022-06-10 08:38[facility] WestCovid-19 PCR (CVDFLOATING H[facility] FOR CHILDREN)on 67-54-0307ORXG-CoV-2 (COVID-19) RNA YAYA+probe Ql (Unsp spec)Not detectedNormalNOT DETECTEDThe [facility] Comment on above:Result Comment: This test is not yet approved or cleared by the [place] FDA. When there are no FDA-approved or cleared tests available, and other criteria are met, FDA can make tests available under an emergency access mechanism called an Emergency Use Authorization (EUA). The EUA for this test is supported by the [employer] of Health and Human Service's (HHS's) declaration [...] and symptoms consistent with SARS-CoV-2.Performed By: #### CVDTBH #### [facility] [address] [place] [address] Dr. Jess Marie Vital Signs Date TimeVital SignValuePerforming WeyodawwbTxprreqa89-80-9188 09:19-0400Body ickxrm843.6 cmSteven Rusher DPM Work Phone: [facility] CenterKojfgffbai39-95-8889 09:19-0400Body mass index (BMI) [Ratio]28.32 kg/c1Skmylk Rusher DPM Work Phone: [facility]OSamar[facility] HospitalVobzyoaedb76-45-8724 09:19-0400Body ywlqsr31.84 kgSteven Rusher DPM Work Phone: [facility] CenterFtiokrcgyc99-75-3894 10:46-0400Body kjqymb858.37 cmRemigio Simpson MD Work Phone: [phone]09-04-2025 10:46-0400 Body mass index (BMI) [Ratio]30.7 kg/m2Remigio Simpson MD Work Phone: [phone] [place], [place] [address]955109-04-2025 10:46-0400 Body sbiffqlreha47.8 [degF]Remigio Simpson MD Work Phone: [phone] [place], [place] [address]109-04-2025 10:46-0400 Body esurbi90.04 kgRemigio Simpson MD Work Phone: [phone])[address]09-04-2025 10:46-0400 Diastolic blood comoirlo98 mm[Hg]Remigio Simpson MD Work Phone: [phone]09-04-2025 10:46-0400 Heart rate66 /minRemigio Simpson MD Work Phone: [phone] [place], [place] 9[address]109-04-2025 10:46-0400 SaO2% (BldA) [Mass fraction]98 %Remigio Simpson MD Work Phone: [phone]09-04-2025 10:46-0400 Systolic blood xftuhjhk394 mm[Hg]Remigio Smipson MD Work Phone: [phone] [place], [place] 9[address]106-19-2025 09:02-0400 Body afyuoh971.6 cmSteven Rusher DPM Work Phone: [facility] CenterDasfgngmky62-71-8732 09:02-0400Body mass index (BMI) [Ratio]28.32 kg/v8Vzabzysheila Uribe DPM Work Phone: [facility] CenterYuwtbsntlc93-52-5581 09:02-0400Body upwoef65.84 kgStevmei Uribe DPM Work Phone: [facility] CenterReovtucvsp19-02-5162 14:21-0400Body .6 cmRemigio Simpson MD Work Phone: [facility] CenterMyapjugdqx87-27-3282 14:21-0400Body mass index (BMI) [Ratio]28.32 kg/m2Remigio Simpson MD Work Phone: [facility] CenterQczdwhmuui93-69-1537 14:21-0400Body temperature 96.6 [degF]Remigio Simpson MD Work Phone: [facility] CenterIthrnowpkw93-49-5851 14:21-0400Body cezthr23.84 kgRemigio Simpson MD Work Phone: [facility] CenterZyvxjstnua68-62-2835 14:21-0400Diastolic blood fwupkefw44 mm[Hg]Remigio Simpson MD Work Phone: [facility] CenterHrbuwxqzxs04-96-8941 14:21-0400Heart rate76 /min Remigio Simpson MD Work Phone: [facility] CenterEjgighcgpl51-76-3008 14:21-0400Respiratory rate22 /minRemigio Simpson MD Work Phone: [facility] CenterJvsleoxlic31-20-3268 14:21-6371JcV9% (BldA) [Mass fraction]98 %Remigio Simpson MD Work Phone: [facility] CenterUndoihlpez05-92-2389 14:21-0400Systolic blood uddolvqz242 mm[Hg]Remigio Simpson MD Work Phone: [facility] CenterThecfabxkk35-87-9966 08:41-0500Body mass index (BMI) [Ratio]27.55 kg/s8Kymphyjpyppher Chandrika MOORE Work Phone: [facility] CenterTbankreput79-04-5216 08:41-0500Body blvorp07.94 kgChristopher Chandrika DO Work Phone: [facility] CenterZjwfmwkxdn18-19-4018 08:41-0500Diastolic blood cgfcfwet75 mm[Hg]Christopher Chandrika DO Work Phone: [facility] CenterTphsnrxvbu83-06-7338 08:41-0500Heart rate79 /min Christopher Chandrika DO Work Phone: [facility] CenterCqkjdyohty48-27-7084 08:41-5353HiO4% (BldA) [Mass fraction]97 %Christopher Chandrika DO Work Phone: [facility] CenterLpwawwzsbx32-14-2697 08:41-0500Systolic blood mm[Hg]Christopher Chandrika DO Work Phone: [facility] CenterBgmfwvxrvz62-71-4096 09:38-0500Body .8 cmSteven Rusher DPM Work Phone: [facility] CenterTocbwpnsvy85-25-4175 09:38-0500Body mass index (BMI) [Ratio]26.87 kg/w8Bpgmnd Rusher DPM Work Phone: [address] [place], [place] [address]Szeemcgrmz99-58-2985 09:38-0500Body kqrosr51.12 kgSteven Rusher DPM Work Phone: [phone] [place], [place] [address]Lxbhgwrtow07-75-2599 12:37-0500Body cfezxn35.8 kg Sera Killian APRN.[employer] Work Phone: [phone]12-04-2024 12:37-0500Diastolic blood zxjgdupu89 mm[Hg]Sera Killian APRN.[employer]URSE [employer] Work Phone: [phone]12-04-2024 12:37-0500Heart rate76 /min Sera Killian APRN.NURSE [employer]AFF [employer] Work Phone: [phone]12-04-2024 12:37-0500Systolic blood mm[Hg]Sera Dennys [employer]GER.NURSE [employer]AFF [employer] Work Phone: [facility]11-04-2024 13:52-0500Body mass index (BMI) [Ratio]26.4 kg/s8Vzkdsetvpak Chandrika DO Work Phone: [facility] CenterYrpaoxrjtj99-18-6848 13:52-0500Body .85 kgChristopher Chandrika DO Work Phone: [facility] CenterXxkplyqxau61-55-4129 13:52-0500Diastolic blood ceuwsoti93 mm[Hg]Christopher Chandrika DO Work Phone: [address] [address]Waqwsumjgb99-92-1814 13:52-0500Heart rate77 /min Christopher Chandrika DO Work Phone: [address] [address]Eqzrqnyrcj65-52-9814 13:52-7893VpL7% (BldA) [Mass fraction]96 %Christopher Chandrika DO Work Phone: [facility] CenterCeocvrwyiu24-05-0852 13:52-0500Systolic blood kzdedllf859 mm[Hg]Christopher Chandrika DO Work Phone: [address] [address]Tuwyfidlzb67-39-9580 09:22-0400Body cofktz520.8 cmSteven Rusher DPM Work Phone: [address] [address]Koyawafrxw96-64-9096 09:22-0400Body mass index (BMI) [Ratio]27.04 kg/h5Veonwa Rusher DPM Work Phone: [address] [address]Sojycfbiqc83-97-5199 09:22-0400Body telyia42.58 kgSteven Rusher DPM Work Phone: [address] [address]Buxjhpgltx34-06-1334 11:45-0400Body mass index (BMI) [Ratio]27.11 kg/q1Kjvkhzduuxe Chandrika DO Work Phone: [address] [address]Soaxveugxb03-20-7877 11:45-0400Body icwcjn13.76 kgChristopher Chandrika DO Work Phone: [address] [address]Jdefejqspw27-85-3437 11:45-0400Diastolic blood rxxvjypw77 mm[Hg]Christopher Chandrika DO Work Phone: [facility] CenterYdgontqsar46-98-6151 11:45-0400Heart rate73 /min Christvic Cobos DO Work Phone: [facility] CenterChowndrfcl42-71-6949 11:45-5477EaI4% (BldA) [Mass fraction]97 %Rei Cobos DO Work Phone: [facility] CenterHowpofszds50-48-7004 11:45-0400Systolic blood fdivlsrj783 mm[Hg]Christvic Cobos DO Work Phone: [facility] CenterWpidcroktm97-43-5869 07:30-0400Body eabfvxdjtqu14 [degF]MD Remigio Simpson Work Phone: 1(813)[address]05-08-2024 07:30-0400 Diastolic blood ubejjsao82 mm[Hg]MD Remigio Simpson Work Phone: 1(593)[address]05-08-2024 07:30-0400 Heart rate73 /minMD Remigio Simpson Work Phone: 1(656)[address]05-08-2024 07:30-0400 Respiratory rate18 /minMD Remigio Simpson Work Phone: 1(057)[address]05-08-2024 07:30-0400 SaO2% (BldA) [Mass fraction]99 %MD Remigio Simpson Work Phone: 1(270)[address]05-08-2024 07:30-0400 Systolic blood xdchquvk399 mm[Hg]MD Remigio Simpson Work Phone: 1(017)[address]05-07-2024 08:44-0400 Body .1 cmMD Remigio Simpson Work Phone: 1(099)[address]05-06-2024 08:42-0400 Body ulpmqq96.6 kgMD Remigio Simpson Work Phone: 1(461)[address]04-30-2024 22:32-0400 Body [degF]MD Remigio Simpson Work Phone: [facility]04-30-2024 22:32-0400 Diastolic blood wwostnmd78 mm[Hg]MD Remigio Simpson Work Phone: [facility]04-30-2024 22:32-0400 Heart rate81 /minMD Remigio Simpson Work Phone: [facility]04-30-2024 22:32-0400 Respiratory rate18 /minMD Remigio Simpson Work Phone: [facility]04-30-2024 22:32-0400 SaO2% (BldA) [Mass fraction]97 %MD Remigio Simpson Work Phone: [facility]04-30-2024 22:32-0400 Systolic blood akwqbnjw890 mm[Hg]MD Remigio Simpson Work Phone: [facility]04-30-2024 19:45-0400 Body psvmra768.1 cmMD Remigio Simpson Work Phone: [facility]04-30-2024 19:45-0400 Body etcoff13.85 kgMD Flood Calvin Work Phone: [facility]01-23-2024 07:30-0500 Body sentxqztmel86.6 [degF][facility]01-23-2024 07:30-0500Diastolic blood vwiowxfs81 mm[Hg][facility] 06-08-2023 07:30-0500Heart rate75 /[facility] 06-08-2023 07:30-0500Respiratory rate16 /[facility] 06-08-2023 07:30-9690OwW0% (BldA) [Mass fraction]97 %[facility]01-23-2024 07:30-0500Systolic blood tylhlmrf903 mm[Hg][facility]01-22-2024 09:00-0500Body cmyosn56.5 kgOhio[facility]01-19-2024 10:17-0500Body mkliah101.37 cmOhio[facility] 05-25-2023 14:29-0500Diastolic blood xyakxxzb30 mm[Hg]DO Robert Zuly Work Phone: [facility]01-09-2024 14:29-0500 Heart rate91 /minDO Robert Zuly Work Phone: [facility]01-09-2024 14:29-0500 Respiratory rate18 /minDO Robert Zuly Work Phone: [facility]01-09-2024 14:29-0500 SaO2% (BldA) [Mass fraction]98 %DO Robert Zuly Work Phone: [facility]01-09-2024 14:29-0500 Systolic blood xszpuyeq648 mm[Hg]DO Robert Zuly Work Phone: [facility]01-09-2024 13:06-0500 Body dfyxlyxaxar32.3 [degF]DO Robert Zuly Work Phone: [facility]01-09-2024 11:38-0500 Body hkksoo493.1 cmDO Robert Zuly Work Phone: [facility]01-09-2024 11:38-0500 Body heuyxb99.1 kgDO Robert Zuly Work Phone: [facility]08-25-2023 13:49-0400 Diastolic blood hafohejr11 mm[Hg]Amor NILL [facility] Yjdasnng49-95-6885 13:49-0400Heart rate 80 /minMichael NILL [facility] Ggonbaxh23-62-4256 13:49-0400 Respiratory rate16 /minMichael NILL [facility] Wlmptlqt53-58-7131 13:49-0400Systolic blood hjkausrc442 mm[Hg]Amor HOLLY [facility] [place] Encounters Encounter DateEncounter TypeCare ProviderFacilityStart: 02-06-2025 End: 21-08-8531Nbozuu flowsheetSteven A Rusher DPM Work Phone: noMS [facility] PodiatryStart: 02-06-2025 End: 97-61-0164Ywdblc flowsheetSteven A Rusher DPM Work Phone: no[facility] Centert PodiatryStart: 02-06-2025 End: 24-88-2183Dowhlaf encounter procedureSteven A Rusher DPM Work Phone: noms [facility] PodiatryComment on above:Dermatophytosis of nail (Primary Dx); Dystrophic nail; Pain around toenail, right foot; Pain around toenail, left footStart: 02-06-2025 End: 06-48-2980olfaqtlhdtHTYYEX A RUSHERNot AvailableStart: 01-18-2025 End: 81-38-6163fvpcjmftfgAsge Naderer MD Work Phone: [facility] Work Phone: Start: 01-18-2025 End: 08-44-9733Ebxfrmr encounter procedureRemigio Simpson MD-[facility] Work Phone: Start: 01-02-2025 End: 70-75-0799KuasfmJvgg Naderer MD Work Phone: noms CWM FMComment on above:DALILA (generalized anxiety disorder)Start: 12-15-2024 End: 54-20-7154trmufhwngrFKWHJDiley Ridge Medical Centertart: 11-10-2024 End: 93-67-0177yktymmqrarHAJJTDiley Ridge Medical Centertart: 11-02-2024 End: 47-46-8777Uxdzjb flowsheetSteven A Rusher DPM Work Phone: [facility] PODIATRYStart: 11-02-2024 End: 27-64-8581Cduvsv flowsheetSteven A Rusher DPM Work Phone: [facility] PODIATRYStart: 11-02-2024 End: 39-79-6751Nglndud encounter procedureSteven A Rusher DPM Work Phone: [facility] PODIATRYComment on above:Dermatophytosis of nail (Primary Dx); Dystrophic nail; Pain around toenail, right foot; Pain around toenail, left footStart: 11-02-2024 End: 00-94-8556fpbaapofgmGTNISS A RUSHERNot AvailableStart: 09-29-2024 End: 41-04-8755Zlseti Javon Simpson MD Work Phone: noMS CWM FMComment on above:DALILA (generalized anxiety disorder) (CMS/HCC)Start: 09-13-2024 End: 87-65-5051Kcrnhk outpatient visit 15 minutesRemigio Simpson MD Work Phone: [facility] C[facility] FMComment on above:Dehydration (Primary Dx); Nausea and vomiting, unspecified vomiting type; Lewy body dementia with behavioral disturbance ([facility]); DALILA (generalized anxiety disorder) ([facility]); Secondary parkinsonism, unspecifiedStart: 09-13-2024 End: 94-64-0417tykgfevzqzSKJB NADERERNot AvailableStart: 09-13-2024 End: 29-33-4627Tvspok Lasha Simpson MD Work Phone: [facility] CWM FMStart: 09-13-2024 End: 54-47-5272Ynqyqz Lasha Simpson MD Work Phone: [facility] C[facility] FMStart: 09-12-2024 End: 78-17-7259Nqtunkqdq encounterRemigio Simpson MD Work Phone: [facility] FMStart: 08-22-2024 End: 67-52-5687TuqhkgSffr Naderer MD Work Phone: [facility] C[facility] FMComment on above:Candidal skin infection (Primary Dx); Constipation, unspecified constipation typeStart: 08-14-2024 End: 60-10-3798Wngbodfkz encounterRemigio Simpson MD Work Phone: noms CWM FMComment on above:Med RefillStart: 08-02-2024 End: 86-45-7930lxiqredcudJTPS NADERERNot AvailableStart: 08-01-2024 End: 84-70-5327xpcaasjoobIZDAOY A RUSHERNot AvailableStart: 07-31-2024 End: 76-36-5251vzvvovfzwoEJYTBWDHTLW HASSETTNot AvailableStart: 07-27-2024 End: 94-79-7281EzkpeoWhrpxkfdo Lyndsay Killian APRN.CNP Work Phone: NeurologyComment on above:Refill RequestStart: 07-10-2024 End: 46-20-8437Famvrujjc department patient visitRACHEL [facility] Hospitaltart: 18-04-9457Yzhirewbo department patient visitWILLSouthwest General Health Centertart: 07-10-2024 End: 25-06-9702Zmfdgewin Result EncounterRemigio Simpson MD Work Phone: noms External Department UnsolicitedStart: 07-10-2024 End: 27-44-9238Xoqdjalmn Result EncounterRemigio Simpson MD Work Phone: noms External Department UnsolicitedStart: 07-10-2024 End: 21-57-1887Ouvgzkkn Result EncounterRemigio Simpson MD Work Phone: noms External Department UnsolicitedStart: 07-10-2024 End: 19-56-4226Reznzepk ReferredRemigio Simpson MD Work Phone: [facility]-LAB Path Spec Tomy HospStart: 07-10-2024 End: 80-93-3776Iccxhm Javon Simpson MD Work Phone: noms CWM FMComment on above:Dysuria (Primary Dx)Start: 07-06-2024 End: 62-85-9534wedogouxazZggqmkmboov Chandrika DO Work Phone: ana [facility] CENTERUEStart: 06-13-9447oymllyvalzMOM ZAMZAMKing's Daughters Medical Center Ohiotart: 06-09-2024 End: 85-79-1370Nhruamojlt and management of inpatientDIONIS [facility] Hospitaltart: 48-87-5897Fky-patient / Non-visitMaruriel Simpson MD Work Phone: [facility] Work Phone: Start: 14-60-8265mzbtbmhnwlJizd Naderer Facility:[facility] Centertart: 75-31-0953Hnmkxkdpnk Recurring Remigio Simpson MD Work Phone: [facility] CredibleStart: 05-29-2024 End: 49-31-7762Jpcjis outpatient new 45 minutesChristopher Chandrika DO Work Phone: ana NORWALKComment on above:Lewy body dementia with psychotic disturbance, unspecified dementia severity (CMS/HCC) (Primary Dx) Start: 05-29-2024 End: 87-15-2415ekgovbsntaTsdbccnyt F Nelson APRN.NURSE [employer]AFF [employer] Work Phone: NeurologyComment on above:HelloStart: 05-26-2024 End: 01-32-4977Hexhvvgrt Result EncounterRemigio Simpson MD Work Phone: noms External Department UnsolicitedStart: 05-26-2024 End: 31-19-2586Blhoxplzx Result EncounterRemigio Simpson MD Work Phone: noms External Department UnsolicitedStart: 05-26-2024 End: 32-70-0028Nvymxzplv encounterChja Killian APRN.NURSE [employer]AFF [employer] Work Phone: NeurologyComment on above:Called Back; Patient Question (Spouse requesting a return phone call)Start: 05-22-2024 End: 47-46-0114YulqxxFmboiadjw Lyndsay Dennys BRUCE.NURSE STAFF [employer]RIAL Work Phone: NeurologyStart: 05-15-2024 End: 12-74-4191Unbnzssyf encounterCheziotine Lyndsay Killian TEO.NURSE STAFF [employer]USTRIAL Work Phone: NeurologyComment on above:Patient Question; Patient Update (Spouse requesting to speak with nurse)Start: 05-04-2024 End: 99-42-8612Mcctgv Javon Simpson MD Work Phone: [facility] CWM FMComment on above:Generalized weakness (Primary Dx); Rapidly progressive dementia (CMS/HCC); Unsteady gaitStart: 05-03-2024 End: 83-57-2358Pcejiv flowsheetSteven A Rusher DPM Work Phone: noms PODIATRYStart: 05-03-2024 End: 39-52-8500Gfelyi flowsheetSteven A Rusher DPM Work Phone: noms PODIATRYStart: 05-03-2024 End: 10-15-5282Wwejjyk encounter procedureSteven A Rusher DPM Work Phone: noms PODIATRYComment on above:Dermatophytosis of nail (Primary Dx); Dystrophic nail; Pain around toenail, right foot; Pain around toenail, left footStart: 05-03-2024 End: 10-14-1344xksoelxtmmRVZQAA A RUSHERNot AvailableStart: 05-01-2024 End: 84-69-0425Uxnodd flowsheetDeneen Miller [employer] Work Phone: NOCF FB PTStart: 05-01-2024 End: 03-24-1624Diacwp flowsheetDeneen Miller [employer] Work Phone: NOPC FB PTStart: 05-01-2024 End: 95-94-5663epaqfgbshxIgxfspbv Wright [employer] Work Phone: [facility] FB PTComment on above:Generalized weakness (Primary Dx); Rapidly progressive dementia (CMS/HCC); Unsteady gaitStart: 04-27-2024 End: 37-31-2017Glnaxr mattheetDeneen Miller [employer] Work Phone: [facility] FB PTStart: 04-27-2024 End: 52-85-6222Yvwehk Moriah Miller [employer] Work Phone: [facility] FB PTStart: 04-27-2024 End: 04-38-8065cmbttobpcoRcrezzet Wright [employer] Work Phone: [facility] FB PTComment on above:Generalized weakness (Primary Dx); Rapidly progressive dementia (CMS/HCC); Unsteady gaitStart: 04-25-2024 End: 89-22-5732Rosnns flowsheetMariah Tattersall PTANOMS FB PTStart: 04-25-2024 End: 60-39-5572Dvjpai flowsheetMariah Tattersall PTANOMS FB PTStart: 04-25-2024 End: 49-52-9826Chpwjuabq encounterChja Killian [employer].NURSE STAFF INDUSTRIAL Work Phone: NeurologyComment on above:Medication Follow-upStart: 04-25-2024 End: 24-85-1737dmghzsdvzgRhdvlg [place] PTANOMS FB PTComment on above: Generalized weakness (Primary Dx); Rapidly progressive dementia (CMS/HCC); Unsteady gaitStart: 04-20-2024 End: 07-09-7535Mmqrbp JinkoSolar HoldingJose Miller [employer]ATOR [employer]IPE Work Phone: NOMS FB PTStart: 04-20-2024 End: 40-35-5862Otnwab JinkoSolar HoldingJose Miller [employer] Work Phone: NOMS FB PTStart: 04-20-2024 End: 95-38-0414Hiilyhkot encounterChriskane Killian [employer].NURSE STAFF INDUSTRIAL Work Phone: NeurologyStart: 04-20-2024 End: 70-71-7025gxynxffoxoVwgqyqli Wright [employer] Work Phone: noms FB PTComment on above:Generalized weakness (Primary Dx); Rapidly progressive dementia (CMS/HCC); Unsteady gaitStart: 04-19-2024 End: 89-96-6197bvraeqhgyxVOSIMNBHS F NELSONFacility:[facility] Start: 04-19-2024 End: 30-36-6744Uegierk encounter procedureSera Killian [employer]ACH[employer] HARNESS RIGGEREstebanNURSE STAFF INDUSTRIAL Work Phone: NeurologyComment on above:Lewy body dementia with behavioral disturbance (HCC) (Primary Dx); Other depression; RBD (REM behavioral disorder); Secondary parkinsonism, unspecified secondary Parkinsonism type (HCC); Visual hallucinationsStart: 04-18-2024 End: 84-59-0905Zgvphb flowsheetMariah [place] PTANOMS FB PTStart: 04-18-2024 End: 22-84-3139Qahubq flowsheetMariah [place] PTANOMS FB PTStart: 04-18-2024 End: 29-07-5501mosdbfiakkAazizr [place]all PTANOMS FB PTComment on above: Generalized weakness (Primary Dx); Rapidly progressive dementia (CMS/HCC); Unsteady gaitStart: 04-12-2024 End: 87-53-2206Dzvalewdu Result EncounterRemigio Simpson MD Work Phone: noms External Department UnsolicitedStart: 04-12-2024 End: 57-71-3958Wjjwqfsmc Result EncounterRemigio Simpson MD Work Phone: noms External Department UnsolicitedStart: 04-12-2024 End: 05-77-7525Pjlhmz OnlyRemigio Simpson MD Work Phone: noms CWM FMComment on above:Dysuria (Primary Dx) Urinary tract infection without hematuria, site unspecifiedStart: 04-06-2024 End: 82-55-7612Nvxonk flowsheetMariah Tattersall PTANOMS FB PTStart: 04-06-2024 End: 72-97-7510Aztpqn flowsheetMariah [place]tersall PTANOMS FB PTStart: 04-06-2024 End: 68-14-8130vwzhfrjyrnUetlsp Tattersaissatou PTANOMS FB PTComment on above: Generalized weakness (Primary Dx); Rapidly progressive dementia (CMS/HCC); Unsteady gaitStart: 04-04-2024 End: 65-47-6837Tzipcv flowsheetKyle J Tabby PT Work Phone: NOMS FB PTStart: 04-04-2024 End: 92-92-2223Dxnpbw flowsheetKyle J Tabby PT Work Phone: NOMS FB PTStart: 04-04-2024 End: 74-43-5614xssjimherzMhnr J Tabby PT Work Phone: NOMS FB PTComment on above:Generalized weakness (Primary Dx); Rapidly progressive dementia (CMS/HCC); Unsteady gait; DizzinessStart: 03-30-2024 End: 39-12-4078xoqjjhyzwyNpqvsynl Wright [employer] Work Phone: NOMS FB PTComment on above:Generalized weakness (Primary Dx); Rapidly progressive dementia (CMS/HCC); Unsteady gaitStart: 03-28-2024 End: 25-27-8364Fsyhzc flowsheetMaría Elenaiah [place]all PTANOMS FB PTStart: 03-28-2024 End: 35-74-7561Fptdzj flowsheetLaurenh [place]all PTANOMS FB PTStart: 03-28-2024 End: 87-07-4140iqrxjueopbBoghxe Tat[place]all PTANOMS FB PTComment on above: Generalized weakness (Primary Dx); Rapidly progressive dementia (CMS/HCC); Unsteady gaitStart: 03-22-2024 End: 10-21-8665Qupkyt flowsheetKyle J Tabby PT Work Phone: NOMS FB PTStart: 03-22-2024 End: 40-72-2394Luovyw flowsheetKyle J Tabby PT Work Phone: NOMS FB PTStart: 03-22-2024 End: 40-68-2668ymetmyccmkWtaz J Tabby PT Work Phone: NOMS FB PTComment on above:Generalized weakness (Primary Dx); Rapidly progressive dementia (CMS/HCC); Unsteady gait; DizzinessStart: 03-20-2024 End: 16-15-8933Mozfne outpatient visit 25 minutesChristopher Chandrika DO Work Phone: NOMS [address] STATE ROUTEComment on above:Lewy body dementia with psychotic disturbance, unspecified dementia severity (CMS/HCC) (Primary Dx); AnxietyStart: 03-20-2024 End: 28-69-1505jkcgaiwamoPBYWZLBFRWR HASSETTNot AvailableStart: 03-20-2024 End: 18-26-5845liptuloppkSghijisk Miller IR[employer]ATOR [employer]IPE Work Phone: NOMS FB PTComment on above:Generalized weakness (Primary Dx); Rapidly progressive dementia (CMS/HCC); Unsteady gaitStart: 03-16-2024 End: 81-77-1189tzdphmdglwTzio J Tabby PT Work Phone: NOMS FB PTComment on above:Generalized weakness (Primary Dx); Rapidly progressive dementia (CMS/HCC); Unsteady gaitStart: 03-14-2024 End: 23-21-0204Xmmxblcpm encounterRemigio Simpson MD Work Phone: NOMS CWM FMStart: 03-09-2024 End: 20-81-8873Nvgrcj Javon Simpson MD Work Phone: NOMS CWM FMStart: 02-17-2024 End: 40-39-0845Zrsdjl Javon Simpson MD Work Phone: NOMS CWM FMComment on above:DALILA (generalized anxiety disorder) (CMS/HCC) (Primary Dx)Start: 02-09-2024 End: 94-30-9839Samxwhck SupportGeorgina Sanford PT Work Phone: NOMS SWS PTHComment on above:Dizziness (Primary Dx); Rapidly progressive dementia (CMS/HCC); Bilateral primary osteoarthritis of kneeStart: 02-02-2024 End: 10-33-9918Myzqma flowsheetSteven A Rusher DPM Work Phone: noms PODIATRYStart: 02-02-2024 End: 75-89-2678Bqjyec flowsheetSteven A Rusher DPM Work Phone: noms PODIATRYStart: 02-02-2024 End: 72-94-2392Xcqqjsi encounter procedureSteven A Rusher DPM Work Phone: noms PODIATRYComment on above:Dermatophytosis of nail (Primary Dx); Dystrophic nail; Pain around toenail, right foot; Pain around toenail, left footStart: 01-25-2024 End: 58-20-2696Gsrarg flowsheetChristopher Chandrika DO Work Phone: noms [address] STATE ROUTEStart: 01-25-2024 End: 48-79-1446Lchojz flowsheetChristopher Chandrika DO Work Phone: noms [address] STATE ROUTEStart: 01-25-2024 End: 05-65-3801Tdwsxi outpatient visit 25 minutesChristopher Chandrika DO Work Phone: noms [address] STATE ROUTEComment on above:Lewy body dementia with psychotic disturbance, unspecified dementia severity (CMS/HCC) (Primary Dx)Start: 12-29-2023 End: 12-76-4578Veyrwxqod Result EncounterRemigio Simpson MD Work Phone: noms External Department UnsolicitedStart: 12-29-2023 End: 95-41-1118Qwbgdayvp Result EncounterRemigio Simpson MD Work Phone: noms External Department UnsolicitedStart: 09-30-2023 End: 77-98-0143iwfqowmajaHmclwmrmbjt M HassettFacility:[facility] Centertart: 44-23-0957Zqp-patient / Non-visitMD Remigio Simpson Work Phone: [facility] Work Phone: Start: 09-14-2023 End: 95-95-6027Jfcemlceeo and management of inpatientMD Remigio Simpson Work Phone: [facility] Work Phone: Start: 09-14-2023 End: 38-12-9712Xlkpsiyhl Result EncounterChristopher Chandrika DO Work Phone: noms External Department UnsolicitedStart: 09-14-2023 End: 59-94-9644Efcnbebzu Result EncounterChristopher Chandrika DO Work Phone: noms External Department UnsolicitedStart: 06-30-2023 Clinisync Result EncounterRemigio Simpson MD Work Phone: noms External Department UnsolicitedStart: 06-30-2023 Clinisync Result EncounterRemigio Simpson MD Work Phone: noms External Department UnsolicitedStart: 06-30-2023 Telephone encounterRemigio Simpson MD Work Phone: noms CWM FMStart: 45-41-0494Cljeml OnlyRemigio Simpson MD Work Phone: noms CWM FMComment on above:Recurrent UTI (Primary Dx); DALILA (generalized anxiety disorder) (CMS/HCC); Neck pain; MDD (major depressive disorder), recurrent episode, mild (HCC) (CMS/HCC)Start: 46-52-0318Awligizqmh and management of inpatientDO Robert Caruso Work Phone: [facility] Work Phone: Start: 37-36-4592Rpr-patient / Non-visitNem[facility] Work Phone: Start: 05-20-2023 End: 72-65-9672Qgujkrhdg department patient visitRemigio Simpson MD [facility]-27-2023 End: 07-31-0003bsvdxjovhbHfdvnrg R NILLFacility:CD:[id number]: 01-08-2023 End: 35-57-1344xboueogfsnEvinsfm R NILLFacility:[facility] CenterueStart: 01-08-2023 End: 86-84-4228Cokbudl encounter procedureMichael R NILL General Surgery Nill/Said [place] Start: 61-55-0419gmfpsgggylNnsgigu R NILLFacility: BellevueStart: 09-10-2022 End: 09-23-0727fejjezhlsiOX REMIGIO A NADERERFacility:U6Bbjah: 06-09-2022 End: 90-24-8371iytiyipmjaGU REMIGIO A NADERERFacility:P0Xybjf: 03-12-2022 End: 47-22-0168tlgooihnomCK REMIGIO A NADERERFacility:L9Okzpk: 11-04-2021 End: 05-70-4504xdymzgummnPN REMIGIO A NADERERFacility:H1 Procedures DateProcedureProcedure DetailPerforming ClinicianStart: 63-68-9517Pffoxar bacterial quanttative colony count urineRemigio Simpson MD Work Phone: Start: 64-10-2258ZMH UA (CLEAN/CATCH) MICROSCOPIC IF Tr Simpson MD Work Phone: Start: 88-77-2445EUD UA (CLEAN/CATCH) MICROSCOPIC IF Tr Simpson MD Work Phone: Start: 42-70-5618VBL UA (CLEAN/CATCH) MICROSCOPIC IF Tr Simpson MD Work Phone: Start: 00-45-1110OR TOMOSYNTHESIS SCREENING Bran Simpson MD Work Phone: Start: 98-31-5024XmanweyxnmgOrhj Naderer MD Work Phone: Start: 75-14-6988FH ABDOMEN PELVIS WO/W CONChristvic Cobos DO Work Phone: Start: 47-74-3398Bb thorax w/o & w/contrast material Wadevic Cobos DO Work Phone: Start: 24-33-5992XOX UA (CLEAN/CATCH) MICROSCOPIC IF INDICATERemigio Simpson MD Work Phone: Start: 70-72-0548VrgomctpqbuLhev Naderer MD Work Phone: Start: 27-56-7103ChyomcrmwbaMglnbhv NILL Start: 27-48-8980mjndh carpal tunnel releaseMichael NILL Start: 36-83-5264jqml carpal tunnel releaseMichael NILL Adenoid excisionMichael NILL Dilation and curettage of uterusMichael NILL Comment on above:2005History of decompression of median nerveHx of carpal tunnel repairRemigio Simpson MD Work Phone: tonsillectomy 2Michael NILL Comment on above:1958Vaginal hysterectomyMichael NILL Plan of Treatment DateCare ActivityDetailAuthorStart: 09-68-6994Dqeztwpss for malignant neoplasm of colonNOMS HealthcareStart: 85-41-2229NGD Vaccine (1 - 1-dose 75+ series)RSV Vaccine (1 - 1-dose 75+ series)[facility]: 05-14-2025 End: 55-83-6055Zxogxgn encounter wtfynrpza41/29/2025 2:15 PM EST Procedure Visit [facility] [address] [place] [address] Herson Uribe DPM [address] [place] [address] NOMShahriar [facility] PodiatryStart: 02-06-2025 End: 86-31-5309Cnzmqly encounter procedureNOMS FH PODIATRYComment on above: ArrivedStart: 01-18-2025 End: 39-66-2521Gpvplxi encounter autasntlp56/04/2025 10:30 AM EDT Office Visit [facility] [address] [place] [address] Remigio Simpson MD [address] [place] [address] NOMShahriar TERRY FMStart: 12-38-6347FMXZY-19 Vaccine ( season)COVID-19 Vaccine ( season)NOMS HealthcareStart: 43-11-2729Ozzldmeli vaccinationInfluenza Vaccine (#1)NOMS HealthcareStart: 50-61-0881Evsyvkcia for malignant neoplasm of breastMammogramNOMS HealthcareStart: 12-04-2024 End: 18-55-0898Hzrxadc encounter /21/2025 11:00 AM EDT Office Visit [facility] [address] [place] [address] Remigio Simpson MD [address] [place] [address] NOMShahriar [facility] FMStart: 11-02-2024 End: 58-14-6526Mawoyjd encounter procedureNOMS FH PODIATRYComment on above: ArrivedStart: 09-13-2024 End: 23-02-7816Tpdhudx encounter siperqxvm31/30/2025 2:15 PM EDT Office Visit [facility] [address] [place] [address] Remigio Simpson MD [address] [place] [address] [facility] FMComment on above:ArrivedStart: 08-01-2024 End: 13-46-3271Idizcov encounter yqiubrakj03/18/2025 9:30 AM EDT Office Visit [facility] PODIATRY [address] [place] [address] Herson Uribe, CHRIS [address] [place] [address] NOMS PODIATRYStart: 07-27-2024 End: 33-92-1602Fcuilfw encounter fvgfueais71/13/2025 10:30 AM EDT Office Visit Neurology [address] [address] Sera Killian, [employer].NURSE STAFF INDUSTRIAL [address] [place] [address] ReportNeurologyComment on above:ReportStart: 07-19-2024 End: 54-50-8988Krpgasf encounter procedureANA BELLEVUEStart: 07-10-2024 End: 15-42-3690Lmpotiag identified in Urine by [facility] [place] Work Phone: Comment on above:Expected: 07/10/2024 (Approximate), Expires: 07/10/2025Start: 07-10-2024 End: 45-87-1586Zyxhbgnhgb complete panel - UrineUrinalysis with reflex microscopic (clean catch) Lab Routine Dysuria Expected: 07/10/2024 (Approxima te), Expires: 07/10/2025NOAL HealthcareComment on above:Expected: 07/10/2024 (Approximate), Expires: 07/10/2025Start: 69-95-3107EevuxGreene Memorial Hospitaltart: 06-19-2024 End: 43-37-9769Fvyqsei encounter procedureNOAL T[facility] ROUTEStart: 06-12-2024 End: 33-10-2898Idhibyw encounter trcrscxou55/27/2025 12:00 PM EST Office Visit NOMS [facility] [address] [place] [phone] ChandrikaRei childs, DO [address] [place], [place] [id number] NOMS [facility] ROUTEStart: 05-29-2024 End: 06-91-9538Whvvcfi encounter procedureNOMS NE NEUROStart: 75-08-1112Mmvkptf Directive DiscussionAdvance Directive DiscussionCleveland ClinicStart: 05-04-2024 End: 14-78-1047bgwnnnbvbr31/19/2024 11:30 AM EST Treatment NOMS FB PT [address] [place] [address] Deneen Miller, IR[employer]ATOR [employer]IPE [address] [place] [address] NOMS FB PTStart: 05-03-2024 End: 55-93-4519Czoflzr encounter procedureNOMS FH PODIATRYComment on above: ArrivedStart: 05-01-2024 End: 29-49-4096usqprswdap66/16/2024 7:30 AM EST Treatment [facility]OM[facility] FB PT [address] [place] [address] Deneen Miller, IR[employer]ATOR [employer] [address] [place] [address] NOMS FB PTStart: 04-28-2024 End: 45-76-0606nslwoqjuwh99/13/2024 10:00 AM EST Treatment [facility]OM[facility] FB PT [address] [place] [address] Alexandria Ray, PT [address] [place] [address] NOMS FB PTStart: 04-27-2024 End: 77-54-4468oezbuaoebq94/12/2024 10:00 AM EST Treatment NOM[facility] FB PT [address] [place] [address] Alexandria Ray, PT [address] [place] [address] NOMS FB PTStart: 04-25-2024 End: 57-17-4211rtdscmikon56/10/2024 10:30 AM EST Treatment NOMS FB PT [address] [place] [address] Deneen Miller, IR[employer]ATOR [employer] [address] [place] [address] NOMS FB PTStart: 04-20-2024 End: 56-25-5130uszsdxjqiu06/05/2024 11:30 AM EST Treatment NOMS FB PT [address] [place] [address] Deneen Miller, IRRIGATOR [employer] PIPE [address] [place] [address] NOMS FB PTStart: 04-18-2024 End: 84-29-3264qbavrfdzsxBPPC FB PTComment on above:ArrivedStart: 04-12-2024 End: 87-71-8849Emewnhya identified in Urine by CultureUrine culture (clean catch) Microbiology Routine Dysuria Expected: 04/12/2024 (Approximate), Expires: 04/12/2025[facility] Work Phone: Comment on above:Expected: 04/12/2024 (Approximate), Expires: 04/12/2025Start: 04-12-2024 End: 74-51-2857Mlsikbdzev complete panel - UrineUrinalysis with reflex microscopic (clean catch) Lab Routine Dysuria Expected: 04/12/2024 (Approxima te), Expires: 04/12/2025NOAL HealthcareComment on above:Expected: 04/12/2024 (Approximate), Expires: 04/12/2025Start: 04-11-2024 End: 47-26-8475aeodfofojm40/26/2024 11:00 AM EST Treatment [facility] FB PT [address] [place] [phone] Beti ChávezRAÚL FB PT Start: 04-06-2024 End: 39-16-3896frugsabpmeKNEF FB PTComment on above:ArrivedStart: 04-04-2024 End: 62-94-9648hxnraogefwURSJ FB PTComment on above:ArrivedStart: 03-30-2024 End: 49-50-9288vqwntucugy03/14/2024 11:30 AM EST Treatment [facility] FB PT [address] [place] [address] Deneen Miller, IRRIGATOR [employer] PIPE [address] [place] [address] NOMS FB PTStart: 03-28-2024 End: 54-29-2858ipwqrelbll27/12/2024 11:00 AM EST Treatment [facility] FB PT [address] [place] [address] Beti ChávezRAÚL FB PT Start: 03-22-2024 End: 00-98-6017bszvgzefurXAHT FB PTComment on above:ArrivedStart: 03-20-2024 End: 97-06-8590Buimytm encounter fegufogzp67/04/2024 2:00 PM EST Office Visit [facility] [place] [address] [place] [phone] Rei Cobos, [address] [place] [address] N[facility]S [facility] ROUTEStart: 03-20-2024 End: 98-09-2671hvnpphrgum55/04/2024 12:30 PM EST Treatment NOMS FB PT [address] [place] [address] Deneen Miller, IRRIGATOR [employer] PIPE [address] [place] [address] NOMS FB PTStart: 03-16-2024 End: 22-90-4181ryojxkilev01/31/2024 12:30 PM EDT Evaluation [facility] FB PT [address] [place] [address] TabbyAlexandria lewis, PT [address] [facility] [place] [address] NOMS FB PTStart: 03-14-2024 End: 98-59-1061Qbewsusg identified in Urine by CultureUrine culture (clean catch) Microbiology Routine Dysuria Expected: 03/14/2024 (Approximate), Expires: 03/14/2025[facility] Work Phone: Comment on above:Expected: 03/14/2024 (Approximate), Expires: 03/14/2025Start: 03-14-2024 End: 18-83-6714Xsuumpivsp complete panel - UrineUrinalysis with reflex microscopic (clean catch) Lab Routine Dysuria Expected: 03/14/2024 (Approxima te), Expires: 03/14/2025NOAL HealthcareComment on above:Expected: 03/14/2024 (Approximate), Expires: 03/14/2025Start: 02-02-2024 End: 40-63-6388Gvjrens encounter procedureNOMS PODIATRYComment on above: ArrivedStart: 01-25-2024 End: 25-37-4473Lviezkg encounter mdanhgvra93/10/2024 12:00 PM EDT Office Visit [facility] [place] [address] [place] [address] Rei Cobos DO [address] [place] [address] ArrivedNOMS [facility] ROUTEComment on above:ArrivedStart: 60-93-9367Oqbcy-19 Vaccine ( season)Covid-19 Vaccine ( season)[facility]: 12-47-5176Hvewtfcys vaccinationInfluenza Vaccine (#1)[facility] HealthcareStart: 81-28-1166Typuygibz for malignant neoplasm of colonNOAL HealthcareStart: 17-81-8650UbfdowzfdMetroHealth Parma Medical Centertart: 63-45-2514Dwnofwozfsbjwz of prophylactic treatmentMetroHealth Parma Medical Centertart: 47-86-7366Xfhlizkm admissionMetroHealth Parma Medical Centertart: 09-06-2023 End: 67-49-0981Clfhpwt encounter laqrxxpeu63/22/2024 9:00 AM EDT Office Visit [facility] [address] [place] [address] Remigio Simpson MD [address] [place] [address] [facility] FMStart: 06-30-2023 End: 46-84-1372Yoaxbfub identified in Urine by CultureUrine culture (clean catch) Microbiology Routine Dysuria Expected: 06/30/2023 (Approximate), Expires: 06/30/2024[facility] HealthcareComment on above:Expected: 06/30/2023 (Approximate), Expires: 06/30/2024Start: 06-30-2023 End: 46-52-7057Yorvxedrrk complete panel - UrineUrinalysis with reflex microscopic (clean catch) Lab Routine Dysuria Expected: 06/30/2023 (Approxima te), Expires: 06/30/2024[facility] Work Phone: Comment on above:Expected: 06/30/2023 (Approximate), Expires: 06/30/2024Start: 59-55-2023DlcgxkicsMetroHealth Parma Medical Centertart: 48-63-8144Hjivenepxjscsx of prophylactic treatmentMetroHealth Parma Medical Centertart: 91-80-5389Veuqakzr admissionMetroHealth Parma Medical Centertart: 58-11-3081QejlprnoaMetroHealth Parma Medical Centertart: 92-02-2504Hwjfbcu Directive DiscussionAdvance Directive DiscussionCletrihealth bet[facility] ClinicStart: 03-09-2021 Pneumococcal Vaccine: 50+ (2 of 2 - PCV)Pneumococcal Vaccine: 50+ (2 of 2 - PCV) [facility]: 91-09-6571Qbxeviwjtqnv Vaccine: 65+ (2 of 2 - PCV) Pneumococcal Vaccine: 65+ (2 of 2 - PCV)[facility]: 03-09-2021 Pneumococcal Vaccine: 65+ Years (2 - PCV)Pneumococcal Vaccine: 65+ Years (2 - PCV)[facility] HealthcareStart: 39-91-6190Iypvrlvdifnu Vaccine: 65+ Years (2 of 2 - PCV)Pneumococcal Vaccine: 65+ Years (2 of 2 - PCV)[facility] HealthcareStart: 34-37-4977Itiqjdtpw for osteoporosisBone Density ScreeningGalion Hospitaltart: 63-03-0884Glqdjcay Vaccine (1 of 2)Shingrix Vaccine (1 of 2)[facility] Start: 42-78-9882Uthqnvvbj B Vaccines (2 of 3 - 19+ 3-dose series)Hepatitis B Vaccines (2 of 3 - 19+ 3-dose series)[facility] CenterStart: 30-59-3672Vxclnzvh ScreeningDiabetes ScreeningGalion Hospitaltart: 50-45-6392Fohgu panelLipid ScreeningGalion Hospitaltart: 22-29-0398Naqkgjwsu for malignant neoplasm of colonGalion Hospitaltart: 20-63-2192Llumzzfua for malignant neoplasm of breast [facility] CenterStart: 24-62-6612Hgeqk microalbumin profileDTaP,Tdap,Td Vaccine (1 - Tdap)[facility]: 05-90-3776Zwydbre ScreeningAnxiety Screening [facility]: 64-27-6243Mbeexjfrq C screeningHepatitis C Screening [facility]tart: 02-09-4516AHiJ/Tdap/Td Vaccines (1 - Tdap)DTaP/Tdap/Td Vaccines (1 - Tdap)[facility] CenterStart: 06-25-1954Medicare Annual Wellness (AWV)Medicare Annual Wellness (AWV)[facility] CenterStart: 20-75-2150Adlkiaobe for malignant neoplasm of colonNOMS HealthcarePatient EducationParma Community General Hospital Ctr Work Phone: Patient referralParma Community General Hospital Ctr Work Phone: Immunizations Immunization DateImmunizationNotesCare ZdwkggghZtrwwlae99-27-4521vmpellebg, high dose seasonal, preservative-freeStsheila Uribe DPM Work Phone: [facility] CenterUjlsstgplx32-08-2402djyuduudp virus vaccine, unspecified formulationRemigio Simpson MD Work Phone: noSamaritan HospitalPgzrevhuxu89-38-9253Lykbpdoft, Seasonal, Quadrivalent, AdjuvantedRemigio Simpson MD Work Phone: [facility] CenterIwmwwtwtlt64-43-8261sfgdkvuau virus vaccine, unspecified formulationRemigio Simpson MD Work Phone: [facility] CenterBpamolidod23-09-0727TIKP-NpL-8 (COVID-19) mRNAMUL.ORD!s19856Bhbztwj NILL General Surgery Xhphdmbd76-09-5387Phzipqvyg, High-dose Seasonal, Quadrivalent, Preservative FreeRemigio Simpson MD Work Phone: [facility] CenterCrddyljjgg69-75-9960TODS-RsG-0 mRNA (kpwnbcsnboh-igvk-hlyqolk) vaccineMichael NILL [facility] Surgery Naztsehf32-52-4753FVTO-TxG-2 (COVID-19) mRNA BNT-162b2 vaxMichael NILL [facility] Rwivfnqq29-98-8158Cpkxbxnat, Seasonal, Quadrivalent, AdjuvantedRemigio Simpson MD Work Phone: [facility] CenterNpolydeyzu76-36-5594YSOB-DuR-7 (COVID-19) mRNA BNT-162b2 vaxMichael NILL [facility] Surgery [facility] HospitalueComment on above:Result Comment: 2023-01-04: [id number]-CdN-9 (COVID-19) mRNA BNT-162b2 vax Amor NILL [facility] HospitalComment on above:Result Comment: 2023-01-04: SQY5620-60-1328gkhlofjpqzln polysaccharide vaccine, 23 valentRemigio Simpson MD Work Phone: [facility] CenterUkruseucpx58-63-8191Dgmnbmoyr, Seasonal, Quadrivalent, AdjuvantedRemigio Simpson MD Work Phone: [facility] CenterElegxmwvnm40-50-2637fafsemzzw, high dose seasonal, preservative-freeRemigio Simpson MD Work Phone: [facility] CenterIdjzprmfhz76-51-7194ucizgwqdh, injectable, quadrivalent, preservative freeRemigio Simpson MD Work Phone: [facility] CenterEcnhkpjfqx92-71-6145zyssastmk, seasonal, injectable, preservative freeRemigio Simpson MD Work Phone: [facility] CenterGpjejaznqj65-83-6617vbvngigjz, seasonal, injectableRemigio Simpson MD Work Phone: [facility] CenterUganwtkpad24-83-2215pqmyjyhac, seasonal, injectableRemigio Simpson MD Work Phone: [facility] CenterDixtyckegx23-01-9840jbggciofc B vaccine, adult dosageRemigio Simpson MD Work Phone: [facility] CenterQfhlythfbx75-23-1329xmqzcaufh B vaccine, pediatric or pediatric/adolescent dosageRemigio Simpson MD Work Phone: [facility] CenterLkmumzhefh46-76-8062kdibonzfw B vaccine, pediatric or pediatric/adolescent dosageRemigio Simpson MD Work Phone: [phone] [place] [address] Payers DatePayer CategoryPayerPolicy [id number] Health [id number] 2019Medicare [id number] [id number] [id number] 2.16840.1.368243.3.579.[id number] 2.16840.1.618351.3.579.2.49818-76-3512Ugzeyyn4581488 2.16840.1.606861.3.579.2.22378-83-7648Hrspzdr1443674 2.16840.1.198987.3.579.2.[id number] 2.840.1.277493.3.579.2.15407-45-7191Biatfhb41619861 2.840.1.816299.3.57[id number] 2.0.1.094583.3.579.[id number] 2.0.1.201994.3.579.2.[id number] 2.840.1.506439.3.579.2.[id number] 2..1.050347.3.579.2.784037-39-0898Mvdsneu9441518 2.0.1.716136.3.579.2.738244-78-0218Vtcocfy5825671 2.840.1.705702.3.579.2.550576-64-6320Qnaohhf2508781 2.840.1.957284.3.579.2.787428-98-9682Zqtfsuc0879060 2.840.1.277041.3.579.2.126525-00-8909Jtmfenf4391032 2.16840.1.801203.3.579.2.014305-00-8110Jfvjbdk5100531 2.0.1.679673.3.579.2.146295-84-6134Imvchhm9372243 2.160.1.907290.3.579.2.136574-62-2974Tnqpocb7758495 2.0.1.095184.3.579.2.923054-70-4995Xyqdjzt5238507 2.0.1.439820.3.579.2.145223-94-3167Eutznvc5202585 2.0.1.425772.3.579.2.107679-89-9930Otwbdid8335671 2.0.1.151149.3.579.2.468384-72-6261Ymrncnz0623889 2.0.1.257598.3.579.2.163789-04-8884Bzegskh2633429 2.0.1.477489.3.579.2.478153-02-0240Zzxxvvh0503205 2..1.878503.3.579.2.979552-86-5306Efzhpdo7937950 2.0.1.731439.3.579.2.878628-26-4509Lexkgoz8628196 2.0.1.238991.3.579.2.942806-59-1786Ofzzcoh1513432 2.0.1.328000.3.579.2.227602-59-0228Aytmgmh0632916 2.840.1.554848.3.579.2.665212-61-0994Nfdpvdi1076253 2.0.1.046069.3.579.2.051781-11-7516Oafmhto4740901 2.0.1.136163.3.579.2.9183Azosafp83986910 2.840.1.285791.3.579.2.531 Kjvquxw31214318 2.0.1.524786.3.579.2.481Qldckpd74249527 2.0.1.0312[id number] 2.0.1.394162.3.579.2.531 Social History DateTypeDetailFacilityStart: 01-08-2023 End: 86-36-5159Dyusqyk smoking statusNever smoked tobacco (finding)General Surgery BellevueStart: 41-93-3886Yzmgacn smoking statusNeverGeneral Surgery [facility] HospitalueStart: 06-09-2023 End: 51-89-9799Wjk Assigned At [facility] Hospitaltart: 52-72-0134Usf Assigned At [facility]tart: 06-09-2023 End: 45-48-6409Exevtwn use and exposureSmokeless tobacco non-userNOMS Healthcare Start: 37-31-9307Ujzydvr intakeDeferNOMS HealthcareStart: 06-09-2023 End: 56-92-8548Swphidj of Social functionNOMS HealthcareStart: 12-31-2022 Jqrxxiavc98RXRT HealthcareStart: 63-33-2279Qng Assigned At [facility] HospitalNot on fileNOMS HealthcareStart: 12-24-2023 End: 01-23-8333Zjnnywguv beverage intakeEx-drinker (finding)NOMS HealthcareDo you belong to any clubs or organizations such as scientologist groups, unions, fraternal or athletic groups, or [...] trueNOMS HealthcareTobacco smoking status NHISTobacco smoking consumption unknownSaratoga Springs ClinicStart: 07-11-2024 SexFemale (finding)[facility] HospitalNEGATED: Highlighted row Start: NINFHistory of tobacco usePassive smokerNOMS Healthcare Goals DatePatient GoalDesired Activity/StatePersonal health goal Functional Status VktcMtshoijpeoTipmrxBkideipo89-31-3360Kpjkkijyxe statusPatient at Baseline [facility] Work Phone: [phone]dy StatusN/AGeneral Surgery [place] Mental Status FqhqKytmrdvpsdFybntwOwbfmjfh15-46-1758Gahacwzgx functionCognitive Status Patient at BaselineFirelands [facility] Center Work Phone: Clinical Notes 03-12-2022 to 02-06-2025 Note Date & PksjHbclMclyvwxo49-84-7781 History of Present illness Narrative* Herson Uribe, CHRIS - 02/06/2025 9:15 AM EDT Images from [...] OF UTERUS 2004 EYE SURGERY HYSTERECTOMY 2008 ME REMOVE TONSILS/ADENOIDS,12+ Y/O 1961 Family History Family History Problem Relation Name Age of Onset Cancer Mother Ayla Jonas Arthritis Mother Ayla Jonas Depression Mother Ayla Jonas Hypertension Father Carlos Jonas Cancer Father Carlos Jonas Heart disease Sibling Arthritis Maternal Grandmother Dayna Cullen Objective General assessment: Alert and oriented. Pleasant [...] understanding. Herson Uribe DPM documented in this encounterSaint Louis University Health Science CenterAfaycwjkdz21-76-6970 NoteDepartment of Psychiatry Outpatient Progress Note Time In: 11:45 Time Out: 12:10 Present At Visit: Patient and Spouse Clinician Location: Clinician in office Patient Location: In office - SUBJECTIVE CC: Chief Complaint Patient presents with Med Management HPI: Donnie Bullock is a 69 y.o. female (currently ) with past psychiatric history of Lewy Body Dementia dx in May of 2022 presenting to the [facility] for a psychiatric evaluation. [...] she spent about a month inpatient at [facility] and left with a large list of medications detailed below. She was discharged and did well for a few days before further deteriorating and being admitted to [facility] where she spent ~2 weeks and [...] ASSESSMENT AND PLAN Assessment (more content not included)...[facility] 11-10-2024 NoteDepartment of Psychiatry Diagnostic Assessment Time In: 10:46 Time Out: 11:20 Encounter Type: In-Person Patient Name: Donnie Bullock MRN / CSN: [id number] Date of / Age: 6 1955 / [...] is a 69 y.o. 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 female (currently ) with past psychiatric history of Lewy Body Dementia dx in May of 2022 presenting to the [facility] for a psychiatric evaluation. [...] she spent about a month inpatient at [facility] and left with a large list of medications detailed below. She was discharged and did well for a few days before further deteriorating and being admitted to [facility] where she spent ~2 weeks and [...] for her. She is very spiritual and alevism, and enjoys going to scientologist, but the large numbers at her scientologist services can make it difficult for her [...] grand children and needed to call the shipping and receiving assistant department to turn herself in. Previous medication trials include: Nuplazid, escitalopram, memantine, and mirtazapine. All of these besides the mirtazapine were discontinued between her stay at [facility] and [facility]. Adverse effects if any were unclear. She [...] her is unclear whic (more content not included)...[facility]06-19-2025 History of Present illness Narrative* Herson Uribe, CHRIS - 11/02/2024 9:15 AM EDT Images from [...] OF UTERUS 2004 EYE SURGERY HYSTERECTOMY 2007 ME REMOVE TONSILS/ADENOIDS,12+ Y/O 1961 Family History Family [...] understanding. Herson Uribe DPM documented in this encounterSaint Louis University Health Science CenterVvffibexim11-80-5246 Instructions* Patient Instructions* Herson Uribe DPM - 11/02/2024 9:15 AM EDT Topical care measures as noted documented in this encounterSaint Louis University Health Science CenterIxdnbfnwsi09-40-6039 History of Present illness Narrative* Remigio Simpson [...] Addressed This Visit DALILA (generalized anxiety disorder) (CMS/HCC) Relevant Medications diazePAM (Valium) 2 MG tablet Lewy body dementia with behavioral disturbance (CMS/HCC) Symptoms stable and continue medication. Dehydration - Primary Improved after IV fluids and encourage PO intake. Nausea and vomiting No further symptoms and use medication PRN. documented in this encounterSaint Louis University Health Science CenterGlkcknvraq50-11-8698 Telephone encounter Note* Telephone Encounter - Remigio Simpson MD - 09/12/2024 11:27 AM EDT states trying to get Palliative Care through [facility]. They told him a referral has beenfaxed twice but no response. Nothing in her chart. Can you contact them to check on status. [facility] CenterXrcshmkbik96-08-7437 Miscellaneous Notes* Telephone Encounter - Remigio Simpson MD - 09/12/2024 11:27 AM EDT states trying to get Palliative Care through [facility]. They told him a referral has beenfaxed twice but no response. Nothing in her chart. Can you contact them to check on status. documented in this encounterSaint Louis University Health Science CenterGnupmjrwbw98-05-4549 Telephone encounter Note* Telephone Encounter - Remigio Simpson MD - 08/22/2024 10:02 PM EDT Sent [facility] CenterKzlfanhmis70-88-3612 Miscellaneous Notes* Telephone Encounter - Remigio Simpson MD - 08/22/2024 10:02 PM EDT Sent * Telephone Encounter - SUSHMA WILKES - 08/22/2024 11:55 AM EDT Patients called states rash under breast is not getting better and is now under both breast, and would like a cream instead as powder does not stay well. documented in this encounterSaint Louis University Health Science CenterFbnwvpikul01-19-6790 Telephone encounter Note* Telephone Encounter - SUSHMA WILKES - 08/22/2024 11:55 AM EDT Patients called states rash under breast is not getting better and is now under both breast, and would like a cream instead as powder does not stay well. [facility] CenterPzwtqhmzfn81-37-4708 Telephone encounter Note* Telephone Encounter - Remigio Simpson MD - 08/14/2024 3:58 PM EDT Sent. [facility] CenterChohwqzrpe50-97-9158 Miscellaneous Notes* Telephone Encounter - Remigio Simpson MD - 08/14/2024 3:58 PM EDT Sent. * Telephone Encounter - SUSHMA WILKES - 08/14/2024 10:10 AM EDT Patient's called looking for a script for Nystop powder. clm documented in this encounterSaint Louis University Health Science CenterRhbzqqsvvg04-27-9751 Telephone encounter Note* Telephone Encounter - SUSHMA WILKES - 08/14/2024 10:10 AM EDT Patient's called looking for a script for Nystop powder. clm [facility] CenterTaqywbscsh43-91-0471 Telephone encounter Note* Telephone Encounter - Sera Killian APRN.CNP - 07/27/2024 4:53 PM EDT The following approved medication requests have been transmitted electronically. Requested Prescriptions Signed Prescriptions Disp Refills donepezil (ARICEPT) 5 mg tablet 90 tablet 1 Sig: TAKE 1 TABLET BY MOUTH DAILY AFTER BREAKFAST. Authorizing Provider: SERA KILLIAN APRN.CNP [facility]03-13-2025 Miscellaneous Notes* Telephone Encounter - Sera Killian APRN.CNP - 07/27/2024 4:53 PM EDT The following approved medication requests have been transmitted electronically. Requested Prescriptions Signed Prescriptions Disp Refills donepezil (ARICEPT) 5 mg tablet 90 tablet 1 Sig: TAKE 1 TABLET BY MOUTH DAILY AFTER BREAKFAST. Authorizing Provider: SERA KILLIAN APRN.CNP documented in this encounterK[facility]02-24-20[facility] History of Present illness Narrative* Remigio Simpson MD - 07/10/2024 10:16 AM EST noticed increased confusion and wants to check urine. Send order for culture and dip to [facility]. documented in this encounterSaint Louis University Health Science CenterRlunmtmezy57-58-1436 History of Present illness Narrative* Rei Cobos [...] we share this recommendation. documented in this [facility]02-19-2025 NoteTreatment Review Patient has been doing well. She is sleeping and physician feels she is ready to discharge. Aircraft Instrument Engineer reported that patient will be picked up by at roughly noon. Medications sent to pharmacy and follow up was scheduled. Discharge plan: Home with -outpatient neurology appointment was scheduled. Nuplazid form was filed out and sent in. This may take 1-2 days to complete.[facility]02-19-2025 Note Attestation signed by MINDY Hunt at 07/05/2024 10:51 AM I agree with the content of this note and have no current revisions. Family Therapist discharge plan Per physician, patient is cleared for discharge. Patient will discharge today at 12pm back home with . Patient will be transported by . Patient to follow up with outpatient psychiatry. Family and staff made aware.[facility]02-19-2025 Note Attestation signed by Brianda De [...] Daily, Ceci Salguero MD, 5 mg at 07/05/24 0815 melatonin tablet 20 mg, 20 mg, oral, Nightly, Irma Greco DO, 20 mg at 07/04/242037 memantine (Namenda) tablet 5 mg, 5 mg, oral, BID, Irmastephie Amayaonov, DO, 5 mg at 07/05/24814 OLANZapine (ZyPREXA) injection 2.5 mg, 2.5 mg, [...] Continue nystatin powde (more content not included)... [facility]02-18-2025 NoteFamily Therapist discharge plan Physician is approving of discharge tomorrow. Nuplazid form was filled out and send to terrell owens. 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 / female Encounter Date: 07/04/24 Diagnosis: Dementia with Lewy Bodies, Associated REM Sleep behavioral disorder Summary Health care surrogate: Vimal Bullock ([phone]) Mrs. Bullock's cognitive decline started in April,. [...] by Dr. Judy Chino, a psychologist in [place]. She then, approximately 1 year ago, began seeing neurology (Dr. Ambrose at [facility]). She also presented to the [facility] for a second opinion in April, (MOCA score at that time was 17/30). The patient previously received services through [facility], this care was reported to be for her major neurocognitive disorder. This week the patient was experiencing worsening hallucinations. On Wednesday (06/05/2024) she reported that she killed her 4 kids and grandchildren. She stated she had their head in bags. The next day (06/06/2024) she was increasingly paranoid and told her that the scrap dealer was coming to take her away and she was packing. She experiences visual hallucinations every day, intermittently. In particular, Mrs. Bullock sees babies suffocating and people living in her house. She also reports seeing dogs as well as squirrels on her husbands shoulder when they watch TV together. Furthermore, patient states when she was hospitalized at [facility] for (depressive symptoms) she saw ribbons in [...] mg TID. Discontinued Mirt (more content not included)...[facility]02-18-2025 Note Attestation signed by Brianda De Jesus MD at 07/04/2024 12:13 PM [...] Daily PRN, Ashleigh Guillory, 10 mg at 06/29/241804 clonazePAM (KlonoPIN) disintegrating tablet 0.25 mg, 0.25 mg, oral, Nightly, Irma Kononov, DO, 0.25 mg at 07/03/242035 escitalopram (Lexapro) tablet 5 mg, 5 mg, oral, Daily, Ceci Salguero MD, 5 mg at 07/04/24742 melatonin tablet 20 mg, 20 mg, oral, Nightly, Irma Kononov, DO, 20 mg at 07/03/242043 memantine (Namenda) tablet 5 mg, 5 mg, oral, BID, Irma Kononov, DO, 5 mg at 07/04/24 0743 OLANZapine (ZyPREXA) injection 2.5 mg, 2.5 mg, intramuscular, BID PRN, Mily Juarez MD pimavanserin (Nuplazid) capsule 34 mg, 34 mg, oral, Daily, Irma Kononov, DO, 34 mg at 07/04/24 0744 polyethylene [...] bedtime daily Depression/Major Ne (more content not included)...[facility]02-17-2025 NoteTreatment Review Per report, pt was talking about janky squirrels . Pt refused some of her food and medications over the weekend. Pt has been tearful at times. Pt has been compliant with her medications this morning. Pt had a large BM Wednesday and Wednesday. Pt slept for 7 hours. Pt has been wandering the unit at times. [facility]charge [facility]: [facility]02-17-2025 NoteTreatment Plan Update Date: 06/10/2024 Time: 9:06 AM Patient Name: Donnie Bullock Date of : 1955 Type of Note: Initial Notes: patient was admitted to [facility] from home after repeated delusional and [...] up outpatient Treatment Plan Created/Updated By: Mindy BlackburnFostoria City Hospital02-17-2025 NoteTreatment Plan Update Date: 06/26/2024 [...] Plan: Home Treatment Plan Created/Updated By: MANNY HuntWood [facility]02-[facility]-2025 NoteTreatment Plan Update Date: 06/19/2024 Time: [...] Outpatient follow up Treatment Plan Created/Updated By: Lissy Littlejohn [facility]ERTamH[facility]-17-2025 NoteTreatment Plan Update Date: 07/03/2024 Time: [...] outpatient follow up Treatment Plan Created/Updated By: Josiah ThakkarHarrison Community Hospital02-17-2025 NoteProblem: Anxiety Goal: STG-Cooperates with evaluations [...] we will keep problem active to continue monitoring.[facility]02-17-2025 Note PROGRESS NOTE PATIENT: Donnie Bullock, [...] 10 mg, 10 mg, rectal, Daily PRN, Ayman Kahlil, 10 mg at 06/29/24 180 clonazePAM (KlonoPIN) disintegrating tablet 0.25 mg, 0.25 mg, oral, Nightly, Irma Kononov, DO, 0.25 mg at 07/02/242000 escitalopram (Lexapro) tablet 5 mg, 5 mg, oral, Daily, Ceci Salguero MD, 5 mg at 07/03/24 08 lactulose (Chronulac) 10 gram/15 mL solution 30 g, 30 g, oral, TID, Brianda De Jesus MD, 30 g at 07/03/24 08 melatonin tablet 20 mg, 20 mg, oral, Nightly, Irma Kononov, DO, 20 mg at 07/02/242000 memantine (Namenda) tablet 5 mg, 5 mg, oral, BID, Irma Kononov, DO, 5 mg at 07/03/24 08 nystatin (Mycostatin) 100,000 unit/gram powder, , Topical, BID, Du Mcmillan MD, Given at 07/02/242000 OLANZapine (ZyPREXA) injection 2.5 mg, 2.5 mg, intramuscular, BID PRN, Mily Juarez MD pimavanserin (Nuplazid) capsule 34 mg, 34 mg, oral, Daily, Irma Kononov, DO, 34 mg at 07/03/24 0808 polyethylene glycol (Glycolax) packet 17 g, 17 g, oral, Daily PRN, Du Mcmillan MD, 17 g at 06/26/24 0808 QUEtiapine (SEROquel) tablet 25 mg, 25 mg, oral, TID PRN, Mily Juarez MD, 25 mg at 06/29/24 1149 sennosides-docusate sodium (Kriss-Colace) 8.6-50 mg per tablet 2 tablet, 2 tablet, oral, BID, Ayman Kahlil, 2 tablet at 07/03/24 0808 ASSESSMENT/PLAN: Constipation, : had BM, pain improved. Continue laxatives Candidal intertrigo: Continue nystatin powder topical apply to under the breast and all the involved areas including groin and abdominal folds Mixed hyperlipidemia: Continue atorvastatin 10 mg by mouth at bedtime daily Depression/Major Neurocognitive Disorder with Lewy bodies: Management per psych. Discussed with nursing staff and primary team. Brianda De Jesus MDWVUMedicine [facility] Hospital02-17-2025 Note Attestation signed by Irma Greco [...] Patient Name: Donnie Bullock MRN / CSN: [id number] Date of / Age: 6 1955 / 68 y.o. / female Encounter Date: 07/03/24 Diagnosis: Dementia with Lewy Bodies, Associated REM Sleep behavioral disorder Summary Health care surrogate: Vimal Bullock ([phone]) Mrs. Bullock's cognitive decline started in April,. [...] by Dr. Judy Chino, a psychologist in [place]. She then, approximately 1 year ago, began seeing neurology (Dr. Ambrose at [facility]). She also presented to the [facility] for a second opinion in April, (MOCA score at that time was 17/30). The patient previously received services through [facility], this care was reported to be for her major neurocognitive disorder. This week the patient was experiencing worsening hallucinations. On Wednesday (06/05/2024) she reported that she killed her 4 kids and grandchildren. She stated she had their head in bags. The next day (06/06/2024) she was increasingly paranoid and told her that the scrap dealer was coming to take her away and she was packing. She experiences visual hallucinations every day, intermittently. In particular, Mrs. Bullock sees babies suffocating and people living in her house. She also reports seeing dogs as well as squirrels on her husbands shoulder when they watch TV together. Furthermore, patient states when she was hospitalized at [facility] for (depressive symptoms) she saw ribbons in [...] mg PRN medications: D (more content not included)...[facility]02-15-2025 Note Attestation signed by Jada Aguillon [...] Patient Name: Donnie Bullock MRN / CSN: [id number] Date of / Age: 6 1955 / 68 y.o. / female Encounter Date: 07/01/24 Diagnosis: Dementia with Lewy Bodies, Associated REM Sleep behavioral disorder Summary Health care surrogate: Vimal Bullock ([phone]) Mrs. Bullock's cognitive decline started in April,. [...] by Dr. Judy Chino, a psychologist in [place]. She then, approximately 1 year ago, began seeing neurology (Dr. Ambrose at [facility]). She also presented to the [facility] for a second opinion in April, (MOCA score at that time was 17/30). The patient previously received services through [facility], this care was reported to be for her major neurocognitive disorder. This week the patient was experiencing worsening hallucinations. On Wednesday (06/05/2024) she reported that she killed her 4 kids and grandchildren. She stated she had their head in bags. The next day (06/06/2024) she was increasingly paranoid and told her that the scrap dealer was coming to take her away and she was packing. She experiences visual hallucinations every day, intermittently. In particular, Mrs. Bullock sees babies suffocating and people living in her house. She also reports seeing dogs as well as squirrels on her husbands shoulder when they watch TV together. Furthermore, patient states when she was hospitalized at [facility] for (depressive symptoms) she saw ribbons in [...] Current Home Medications and (more content not included)...[facility]02-15-2025 NoteProblem: Anxiety Goal: STG-Cooperates with evaluations from physicians/RNs Outcome: Progressing Problem: Confusion Goal: STG-Engages in social situations appropriately 3 per shift Outcome: Progressing Problem: Anxiety Goal: STG-Will not pace the floor more than 10 per shift Outcome: Not ProgressingUnFostoria City Hospital02-14-2025 Note Attestation signed by MINDY Hunt [...] return home to previous living arrangement with .[facility]02-14-2025 Note Attestation signed by Irma Greco [...] Patient Name: Donnie Bullock MRN / CSN: [id number] Date of / Age: 6 1955 / 68 y.o. / female Encounter Date: 06/30/24 Diagnosis: Dementia with Lewy Bodies, Associated REM Sleep behavioral disorder Summary Health care surrogate: Vimal Bullock ([phone]) Mrs. Bullock's cognitive decline started in April,. [...] by Dr. Judy Chino, a psychologist in [place]. She then, approximately 1 year ago, began seeing neurology (Dr. Ambrose at [facility]). She also presented to the [facility] for a second opinion in April, (MOCA score at that time was 17/30). The patient previously received services through [facility], this care was reported to be for her major neurocognitive disorder. This week the patient was experiencing worsening hallucinations. On Wednesday (06/05/2024) she reported that she killed her 4 kids and grandchildren. She stated she had their head in bags. The next day (06/06/2024) she was increasingly paranoid and told her that the scrap dealer was coming to take her away and she was packing. She experiences visual hallucinations every day, intermittently. In particular, Mrs. Bullock sees babies suffocating and people living in her house. She also reports seeing dogs as well as squirrels on her husbands shoulder when they watch TV together. Furthermore, patient states when she was hospitalized at [facility] for (depressive symptoms) she saw ribbons in [...] mg PRN medications: D (more content not included)...[facility]02-14-2025 Note Attestation signed by Brianda De [...] Nightly, Irma Greco DO, 20 mg at 06/29/242006 memantine (Namenda) tablet 5 mg, 5 mg, oral, BID, Irma Greco DO, 5 mg at 06/29/242007 Non-Formulary Medication, 10 mg, oral, Daily, Irma [...] PRN, Mily Juarez MD (more content not included)...[facility]02-13-2025 Note Problem: Anxiety Goal: STG-Cooperates with evaluations from physicians/RNs Outcome: Progressing Problem: Confusion Goal: LTG-Take medications as prescribed Outcome: Progressing Problem: Depression Goal: LTG-Engage in self care as tolerated Outcome: Progressing Problem: Fall Risk Goal: LTG-No falls [facility]: [facility] Note Attestation signed by Brianda De [...] PRN, Derrick Duckworth MD, 650 mg at 06/28/24828 atorvastatin (Lipitor) tablet 10 mg, 10 mg, oral, Nightly, Du Mcmillan MD, 10 mg at 06/28/242007 bisacodyl (Dulcolax) suppository 10 mg, 10 mg, rectal, Daily PRN, Ashleigh Guillory clonazePAM (KlonoPIN) disintegrating tablet 0.5 mg, 0.5 mg, oral, Nightly, Irma Amayaonoelena, DO, 0.5 mg at 06/28/242008 escitalopram (Lexapro) tablet 5 mg, 5 mg, oral, Daily, Ceci Salguero MD, 5 mg at 06/28/24 1710 lactulose (Chronulac) 10 gram/15 mL solution 10 g, 10 g, oral, BID, Ashleigh Boyceh, 10 g at 06/28/242008 melatonin tablet 20 mg, 20 mg, oral, Nightly, Irma Greco, DO, 20 mg at 06/28/242007 memantine (Namenda) tablet 5 mg, 5 mg, oral, BID, Irma Amayaonoelena, DO, 5 mg at 06/28/242007 nystatin (Mycostatin) [...] 2 tablet, oral, BID, Ashleigh Guillory, 2 tablet at 06/28/242007 ASSESSMENT/PLAN: Dysuria, resolved: Encourage fluid intake, urinalysis (more content not included)...[facility]02-13-2025 Note Attestation signed by Irma Greco [...] worsening dizziness and fatigue, as well as accounting tutor 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 Though of note, her night time rem problems have subsided at this dose. Psychiatry Service Progress Note Identifying Data Patient Name: Donnie Bullock MRN / CSN: [id number] Date of / Age: 6 1955 / 68 y.o. / female Encounter Date: 06/29/24 Diagnosis: Dementia with Lewy Bodies, Associated REM Sleep behavioral disorder Summary Health care surrogate: Vimal Bullock ([phone]) Mrs. Bullock's cognitive decline started in April,. [...] by Dr. Judy Chino, a psychologist in [place]. She then, approximately 1 year ago, began seeing neurology (Dr. Ambrose at [facility]). She also presented to the [facility] for a second opinion in April, (MOCA score at that time was 17/30). The patient previously received services through [facility], this care was reported to be for her major neurocognitive disorder. This week the patient was experiencing worsening hallucinations. On Wednesday (06/05/2024) she reported that she killed her 4 kids and grandchildren. She stated she had their head in bags. The next day (06/06/2024) she was increasingly paranoid and told her that the scrap dealer was coming to take her away and she was packing. She experiences visual hallucinations every day, intermittently. In particular, Mrs. Bullock sees babies suffocating and people living in her house. She also reports seeing dogs as well as squirrels on her husbands shoulder when they watch TV together. Furthermore, patient states when she was hospitalized at [facility] for (depressive symptoms) she saw ribbons in [...] ideation, plan and i (more content not included)...[facility]02-12-2025 Note Treatment Review Per report, pt rated her anxiety and depression at a 8. Pt has been overstimulated lately due to the loudness of the milieu. Pt reported that she was seeing children. Pt was complaining of back pain. Pt has not had a BM for days. Pt had her memantine increased. Discharge plan: [facility]02-12-2025 Note Attestation signed by Brianda De Jesus [...] PRN, Derrick Duckworth MD, 650 mg at 06/28/24828 atorvastatin (Lipitor) tablet 10 mg, 10 mg, oral, Nightly, Du Mcmillan MD, 10 mg at 06/27/242004 bisacodyl (Dulcolax) suppository 10 mg, 10 mg, rectal, Daily PRN, Ashleigh Guillory clonazePAM (KlonoPIN) disintegrating tablet 0.5 mg, 0.5 mg, oral, Nightly, Irma Greco DO, 0.5 mg at 06/27/242003 lactulose (Chronulac) 10 gram/15 mL solution 10 g, 10 g, oral, BID, Ashleigh Guillory melatonin tablet 20 mg, 20 mg, oral, Nightly, Irma Brunov, DO, 20 mg at 06/27/242003 memantine (Namenda) tablet 5 mg, 5 mg, oral, BID, Irma Greco DO, 5 mg at 06/28/24 08 nystatin (Mycostatin) 100,000 unit/gram powder, , [...] BID, Ashleigh Guillory, 2 (more content not included)...[facility]02-12-2025 Note Attestation signed by Irma Greco [...] Patient Name: Donnie Bullock MRN / CSN: [id number] Date of / Age: 6 1955 / 68 y.o. / female Encounter Date: 06/28/24 Diagnosis: Dementia with Lewy Bodies, Associated REM Sleep behavioral disorder Summary Health care surrogate: Vimal Bullock ([phone]) Mrs. Bullock's cognitive decline started in April,. [...] by Dr. Judy Chino, a psychologist in [place]. She then, approximately 1 year ago, began seeing neurology (Dr. Ambrose at [facility]). She also presented to the [facility] for a second opinion in April, (MOCA score at that time was 17/30). The patient previously received services through [facility], this care was reported to be for her major neurocognitive disorder. This week the patient was experiencing worsening hallucinations. On Wednesday (06/05/2024) she reported that she killed her 4 kids and grandchildren. She stated she had their head in bags. The next day (06/06/2024) she was increasingly paranoid and told her that the scrap dealer was coming to take her away and she was packing. She experiences visual hallucinations every day, intermittently. In particular, Mrs. Bullock sees babies suffocating and people living in her house. She also reports seeing dogs as well as squirrels on her husbands shoulder when they watch TV together. Furthermore, patient states when she was hospitalized at [facility] for (depressive symptoms) she saw ribbons in [...] 25 mg PRN medications: (more content not included)...[facility]02-11-2025 NoteProblem: Anxiety Goal: STG-Cooperates with evaluations from physicians/RNs Outcome: Progressing Problem: Confusion Goal: LTG-Take medications as prescribed Outcome: Progressing Problem: Depression Goal: LTG-Engage in self care as tolerated Outcome: Progressing Problem: Fall Risk Goal: LTG-No falls Outcome: [facility]25 NoteFamily Therapist discharge plan Aircraft Instrument Engineer witnessed pt sitting on the floor. Pt reported that she placed herself on the floor, believes that she is going to hell, and this is because she is a bad person and she has not done anything good recently. Aircraft Instrument Engineer informed her of multiple reasons why she is a good person. Pt also felt sad because her family is changing their names since they do not want to be associated with her. After given support, pt was able to get up on her own, and wandered around the unit. [facility]02-11-2025 Note Attestation signed by Brianda De [...] Nightly, Irma Greco DO, 0.5 mg at 06/26/242043 melatonin tablet 20 mg, 20 mg, oral, Nightly, Irma Greco DO, 20 mg at 06/26/242043 memantine (Namenda) tablet 5 mg, 5 mg, oral, Daily, Irma Greco DO, 5 mg at 06/26/24807 nystatin (Mycostatin) 100,000 unit/gram powder, , Topical, BID, Du Mcmillan MD, Given at 06/26/242044 OLANZapine (ZyPREXA) injection 2.5 mg, 2.5 mg, intramuscular, BID PRN, Mily Juarez MD pimavanserin (Nuplazid) capsule 34 mg, 34 mg, oral, Daily, Irma Greco DO, 34 mg at 06/26/24807 polyethylene glycol (Glycolax) packet 17 g, 17 g, oral, Daily PRN, Du Mcmillna MD, 17 g at 06/26/24807 QUEtiapine (SEROquel) tablet 25 mg, 25 mg, oral, TID PRN, Mily Juarez MD, 25 mg at 06/22/242250 sennosides-docusate sodium (Kriss-Colace) 8.6-50 mg per tablet 2 tablet, 2 tablet, oral, BID, Ashleigh Guillory ASSESSMENT/PLAN: Dysuria, resolved: Encourage fluid intake, urinalysis shows no evidence of UTI Constipation, slowly improving, adjust bowel regimen, s (more content not included)...[facility]02-11-2025 Note Attestation signed by Irma Greco [...] Patient Name: Donnie Bullock MRN / CSN: [id number] Date of / Age: 6 1955 / 68 y.o. / female Encounter Date: 06/27/24 Diagnosis: Dementia with Lewy Bodies, Associated REM Sleep behavioral disorder Summary Health care surrogate: Vimal Bullock ([phone]) Mrs. Bullock's cognitive decline started in April,. [...] by Dr. Judy Chino, a psychologist in [place]. She then, approximately 1 year ago, began seeing neurology (Dr. Ambrose at [facility]). She also presented to the [facility] for a second opinion in April, (MOCA score at that time was 17/30). The patient previously received services through [facility], this care was reported to be for her major neurocognitive disorder. This week the patient was experiencing worsening hallucinations. On Wednesday (06/05/2024) she reported that she killed her 4 kids and grandchildren. She stated she had their head in bags. The next day (06/06/2024) she was increasingly paranoid and told her that the scrap dealer was coming to take her away and she was packing. She experiences visual hallucinations every day, intermittently. In particular, Mrs. Bullock sees babies suffocating and people living in her house. She also reports seeing dogs as well as squirrels on her husbands shoulder when they watch TV together. Furthermore, patient states when she was hospitalized at [facility] for (depressive symptoms) she saw ribbons in [...] 25 mg PRN medications: (more content not included)...[facility]02-10-2025 NoteTreatment Review Per report, pt received tylenol for her back pain. Pt slept for 8 hours. Pt was paranoid about her calling her since she was unable to answer it. Pt continues to have constipation. Pt has been exit seeking at night, has been less redirectable, but these episodes have lessened in the overall amount of time. [facility] Note Attestation signed by Brianda De Jesus [...] PATIENT: Donnie Bullock, SEX: female, : 1955 JONATHAN Richardson Elder was seen this morning in her room after she had breakfast, doing well, denies any complain. Resident seen for a follow up/med management for neurocognitive disorder with Lewy bodies, generalized anxiety disorder, paroxysmal supraventricular tachycardia, constipation, and COVID-19 in April 2023; 68 years old female directly admitted to [facility] head from home on 06/09/2024 for management [...] 0.25 mg, 0.25 mg, oral, Nightly, Irma Kononov, DO, 0.25 mg at 06/25/242014 melatonin tablet 20 mg, 20 mg, oral, Nightly, Irma Kononov, DO, 20 mg at 06/25/242014 memantine (Namenda) tablet 5 mg, 5 mg, oral, Daily, Irma Kononov, DO, 5 mg at 06/26/24 0808 nystatin (Mycostatin) 100,000 unit/gram powder, , Topical, BID, Du Iwuagwu, MD, Given at 06/26/24 0809 OLANZapine (ZyPREXA) injection 2.5 mg, 2.5 mg, intramuscular, BID PRN, Mily Juarez MD pimavanserin (Nuplazid) capsule 34 mg, 34 mg, oral, Daily, Irma Greco, , 34 mg at 06/26/24 0808 polyethylene glycol (Glycolax) packet 17 g, 17 g, oral, Daily PRN, Du Mcmillan MD, 17 g at 06/26/24 0808 QUEtiapine (SEROquel) tablet 25 mg, 25 mg, oral, TID PRN, Mily Juarez MD, 25 mg at 06/22/242250 sennosides-docusate sodium (Kriss-Colace) 8.6-50 mg per tablet 2 tablet, 2 tablet, oral, Nightly, Cletu (more content not included)...[facility]02-10-2025 NoteProblem: Anxiety Goal: STG-Cooperates with evaluations [...] Note: Pt has been [facility] NotePsychiatry Service Progress Note Identifying Data Patient Name: Donnie Bullock MRN / CSN: [id number] Date of / Age: 6 1955 / 68 y.o. / female Encounter Date: 06/26/24 Diagnosis: Dementia with Lewy Bodies, Associated REM Sleep behavioral disorder Summary Health care surrogate: Vimal Bullock ([phone]) Mrs. Bullock's cognitive decline started in April,. [...] by Dr. Judy Chino, a psychologist in [place]. She then, approximately 1 year ago, began seeing neurology (Dr. Ambrose at [facility]). She also presented to the [facility] for a second opinion in April, (MOCA score at that time was 17/30). The patient previously received services through [facility], this care was reported to be for her major neurocognitive disorder. This week the patient was experiencing worsening hallucinations. On Wednesday (06/05/2024) she reported that she killed her 4 kids and grandchildren. She stated she had their head in bags. The next day (06/06/2024) she was increasingly paranoid and told her that the scrap dealer was coming to take her away and she was packing. She experiences visual hallucinations every day, intermittently. In particular, Mrs. Bullock sees babies suffocating and people living in her house. She also reports seeing dogs as well as squirrels on her husbands shoulder when they watch TV together. Furthermore, patient states when she was hospitalized at [facility] for (depressive symptoms) she saw ribbons in [...] 06/14: Discontinued Rivastigmine 4.6m (more content not included)...[facility]02-09-2025 Note Attestation signed by Jada Aguillon [...] Patient Name: Donnie Bullock MRN / CSN: [id number] Date of / Age: 6 1955 / 68 y.o. / female Encounter Date: 06/25/24 Diagnosis: Dementia with Lewy Bodies, Associated REM Sleep behavioral disorder Summary Health care surrogate: Vimal Bullock ([phone]) Mrs. Bullock's cognitive decline started in April,. [...] by Dr. Judy Chino, a psychologist in [place]. She then, approximately 1 year ago, began seeing neurology (Dr. Ambrose at [facility]). She also presented to the [facility] for a second opinion in April, (MOCA score at that time was 17/30). The patient previously received services through [facility], this care was reported to be for her major neurocognitive disorder. This week the patient was experiencing worsening hallucinations. On Wednesday (06/05/2024) she reported that she killed her 4 kids and grandchildren. She stated she had their head in bags. The next day (06/06/2024) she was increasingly paranoid and told her that the scrap dealer was coming to take her away and she was packing. She experiences visual hallucinations every day, intermittently. In particular, Mrs. Bullock sees babies suffocating and people living in her house. She also reports seeing dogs as well as squirrels on her husbands shoulder when they watch TV together. Furthermore, patient states when she was hospitalized at [facility] for (depressive symptoms) she saw ribbons in the hospital. She denies auditory hallucinations. Per chart review and history provided today there is also concern for capgras delusions, in the past patient has stated to Mr. Blulock you look like my Vimal, but you [...] Current Home Medications and (more content not included)...[facility]02-09-2025 NotePROGRESS NOTE PATIENT: Donnie Bullock, SEX: [...] 68 years old female directly admitted to [facility] from home on 06/09/2024 for management of [...] PRN, Derrick Duckworth MD, 650 mg at 06/24/241802 atorvastatin (Lipitor) tablet 10 mg, 10 mg, oral, Nightly, uD Mcmillan MD, 10 mg at 06/24/242004 clonazePAM (KlonoPIN) disintegrating tablet 0.25 mg, 0.25 mg, oral, Nightly, Irma Kononov, DO, 0.25 mg at 06/24/242005 melatonin tablet 20 mg, 20 mg, oral, Nightly, Irma Kononov, DO, 20 mg at 06/24/242005 memantine (Namenda) tablet 5 mg, 5 mg, oral, Daily, Irma Kononov, DO, 5 mg at 06/24/24 0844 nystatin (Mycostatin) 100,000 unit/gram powder, , Topical, BID, Du Mcmillan MD, Given at 06/24/242005 OLANZapine (ZyPREXA) injection 2.5 mg, 2.5 mg, intramuscular, BID PRN, Mily Juarez MD pimavanserin (Nuplazid) capsule 34 mg, 34 mg, oral, Daily, Irma Greco, , 34 mg at 06/24/24 0844 polyethylene glycol [...] offer for Dulcolax at (more content not included)...[facility]02-08-2025 NoteProblem: Anxiety Goal: STG-Cooperates with evaluations from physicians/RNs Outcome: Progressing Goal: STG-Will not pace the floor more than 10 per shift Outcome: Progressing Problem: Confusion Goal: STG-Engages in social situations appropriately 3 per shift Outcome: Progressing Problem: Constipation Goal: STG-Regular elimination pattern by discharge Outcome: Progressing Problem: Fall Risk Goal: STG-Zero falls by discharge Outcome: [facility]-2025 NotePROGRESS NOTE PATIENT: Donnie Bullock, [...] 68 years old female directly admitted to [facility] from home on [...] 0.25 mg, 0.25 mg, oral, Nightly, Irma Kononov, DO, 0.25 mg at 06/23/242028 melatonin tablet 20 mg, 20 mg, oral, Nightly, Irma Kononov, DO, 20 mg at 06/23/242028 memantine (Namenda) tablet 5 mg, 5 mg, oral, Daily, Irma Greco DO, 5 mg at 06/23/24831 nystatin (Mycostatin) 100,000 unit/gram powder, , Topical, BID, Du Mcmillan MD, Given at 06/23/242028 OLANZapine (ZyPREXA) injection 2.5 mg, 2.5 mg, intramuscular, BID PRN, Mily Juarez MD pimavanserin (Nuplazid) capsule 34 mg, 34 mg, oral, Daily, Irma Greco DO, 34 mg at 06/23/24831 polyethylene glycol (Glycolax) packet 17 g, 17 g, oral, Daily PRN, Du Mcmillan MD, 17 g at 06/23/24831 QUEtiapine (SEROquel) tablet 25 mg, 25 mg, [...] as needed, and sennos (more content not included)...[facility]02-07-2025 NoteTreatment Review Per report, pt has [...] and went back to bed. [facility]: [facility]02-07-2025 Note Attestation signed by Irma Greco DO [...] Patient Name: Donnie Bullock MRN / CSN: [id number] Date of / Age: 6 1955 / 68 y.o. / female Encounter Date: 06/23/24 Diagnosis: Dementia with Lewy Bodies, Associated REM Sleep behavioral disorder Summary Health care surrogate: Vimal Bullock ([phone]) Mrs. Bullock's cognitive decline started in April,. [...] by Dr. Judy Chino, a psychologist in [place]. She then, approximately 1 year ago, began seeing neurology (Dr. Ambrose at [facility]). She also presented to the [facility] for a second opinion in April, (MOCA score at that time was 17/30). The patient previously received services through [facility], this care was reported to be for her major neurocognitive disorder. This week the patient was experiencing worsening hallucinations. On Wednesday (06/05/2024) she reported that she killed her 4 kids and grandchildren. She stated she had their head in bags. The next day (06/06/2024) she was increasingly paranoid and told her that the scrap dealer was coming to take her away and she was packing. She experiences visual hallucinations every day, intermittently. In particular, Mrs. Bullock sees babies suffocating and people living in her house. She also reports seeing dogs as well as squirrels on her husbands shoulder when they watch TV together. Furthermore, patient states when she was hospitalized at [facility] for (depressive symptoms) she saw ribbons in [...] mg PRN medications: D (more content not included)...[facility]02-07-2025 Note Attestation signed by Du Mcmillan [...] Comments: Patient seen, evaluated and discussed with medical assistant per diem as documented PROGRESS NOTE PATIENT: Donnie Bullock, SEX: female, : 1955 SUBJECTIVE Donnie Richardson Elder was seen this morning, resting comfortably in [...] admitted to [facility] head from home on 06/09/2024 for management [...] Derrick Duckworth MD, 650 mg at 06/22/24 185 atorvastatin (Lipitor) tablet 10 mg, 10 mg, oral, Nightly, Du Mcmillan MD, 10 mg at 06/22/242100 melatonin tablet 20 mg, 20 mg, oral, Nightly, Irma Greco DO, 20 mg at 06/22/24 2100 memantine (Namenda) tablet 5 mg, 5 mg, oral, Daily, Irma Greco DO, 5 mg at 06/23/24 0832 nystatin (Mycostatin) 100,000 unit/gram powder, , Topical, BID, Du Iwuagwu, MD, Given at 06/23/24 0832 OLANZapine (ZyPREXA) [...] Mily Juarez MD, 25 mg at 06/22/24 225 sennosides-docusate sodium (Kriss-Colace) 8.6-50 mg per tablet 2 tablet, (more content not included)...[facility]02-06-2025 Note Attestation signed by Irma Greco [...] Patient Name: Donnie Bullock MRN / CSN: [id number] Date of / Age: 6 1955 / 68 y.o. / female Encounter Date: 06/22/24 Diagnosis: Dementia with Lewy Bodies, Associated REM Sleep behavioral disorder Summary Health care surrogate: Vimal Bullock ([phone]) Mrs. Bullock's cognitive decline started in April,. [...] by Dr. Judy Chino, a psychologist in [place]. She then, approximately 1 year ago, began seeing neurology (Dr. Ambrose at [facility]). She also presented to the [facility] for a second opinion in April, (MOCA score at that time was 17/30). The patient previously received services through [facility], this care was reported to be for her major neurocognitive disorder. This week the patient was experiencing worsening hallucinations. On Wednesday (06/05/2024) she reported that she killed her 4 kids and grandchildren. She stated she had their head in bags. The next day (06/06/2024) she was increasingly paranoid and told her that the scrap dealer was coming to take her away and she was packing. She experiences visual hallucinations every day, intermittently. In particular, Mrs. Bullock sees babies suffocating and people living in her house. She also reports seeing dogs as well as squirrels on her husbands shoulder when they watch TV together. Furthermore, patient states when she was hospitalized at [facility] for (depressive symptoms) she saw ribbons in [...] mg PRN medications: D (more content not included)...[facility]02-06-2025 NotePROGRESS NOTE PATIENT: Donnie Bullock, SEX: [...] admitted to [facility] head from home on 06/09/2024 for management [...] 5 mg, 5 mg, oral, Daily, Irmastephie Amayaonov DO, 5 mg at 06/21/24 0844 nystatin [...] Nightly, Du Mcmillan MD, 2 tablet at 06/21/241 ASSESSMENT/PLAN: Slow transit constipation: Currently on polyethylene [...] by mouth at bedtime (more content not included)...[facility]02-05-2025 NoteTreatment Review Per report, pt had a good family visit. Pt reported that she is not going to work (perceived delusion). Pt reported visual hallucinations of seeing her grandchildren. Pt believes that her is having an affair, believes it is with a man, and in the same sentence will talk about him having a girlfriend. Pt had her seroquel stopped. [facility] NoteProblem: Anxiety Goal: STG-Cooperates with evaluations from physicians/RNs Outcome: Progressing Note: Patient co-operative with physical and verbal assessment. Problem: Hypo/Hypertension Goal: STG-Willingly allowing vitals twice daily Outcome: Progressing Note: Patient co-operative with vitals The patient is Moderately Stable - Low risk of patient condition declining or worsening The patient's goals for the shift include rest The clinical goals for the shift include [facility]Un[facility]-2025 NoteNutrition Screening Assessment: Patient Name: Donnie Bullock : 1955 Date of Assessment: 06/21/24 Nutrition re-screen completed Past Medical History: Diagnosis Date Neurocognitive disorder with Lewy bodies (CMS/HCC) Paroxysmal supraventricular tachycardia (CMS/HCC) Personal history of COVID-19 Slow transit constipation Visual hallucinations Admission Diagnosis: Neurocognitive disorder with Lewy Bodies Information obtained from: medical record, nursing, and [facility] team meeting Current Problems Per RN and [...] Dietary Orders (From admission, onward) Start Ordered 06/09/24 1705 Regular Diet Diet effective now Question: Room Service? Answer: Yes 06/09/24 1706 Meal Intakes: 75-100% average meal intake of [...] with questions and contact the dietitian via [employer] chat 8A-4P Wednesday-Wednesday. Or call the dietitian's office at bphhtuari [phone]. For weekends/holidays, the dietitian's can be reached by paging [phone] from 9A-3P. Unable to be reached via [employer] chat on Wednesday & .)[facility]02-05-2025 Note Attestation signed by Irma Greco [...] Patient Name: Donnie Bullock MRN / CSN: [id number] Date of / Age: 6 1955 / 68 y.o. / female Encounter Date: 06/21/24 Diagnosis: Dementia with Lewy Bodies, Associated REM Sleep behavioral disorder Summary Health care surrogate: Vimal Bullock ([phone]) Mrs. Bullock's cognitive decline started in April,. [...] by Dr. Judy Chino, a psychologist in [place]. She then, approximately 1 year ago, began seeing neurology (Dr. Ambrose at [facility]). She also presented to the [facility] for a second opinion in April, (MOCA score at that time was 17/30). The patient previously received services through [facility], this care was reported to be for her major neurocognitive disorder. This week the patient was experiencing worsening hallucinations. On Wednesday (06/05/2024) she reported that she killed her 4 kids and grandchildren. She stated she had their head in bags. The next day (06/06/2024) she was increasingly paranoid and told her that the scrap dealer was coming to take her away and she was packing. She experiences visual hallucinations every day, intermittently. In particular, Mrs. Bullock sees babies suffocating and people living in her house. She also reports seeing dogs as well as squirrels on her husbands shoulder when they watch TV together. Furthermore, patient states when she was hospitalized at [facility] for (depressive symptoms) she saw ribbons in [...] mg PRN medications: D (more content not included)...[facility]02-05-2025 NotePROGRESS NOTE PATIENT: Donnie Bullock, SEX: female, : 1955 SUBJECTIVE Patient evaluated while standing by the door of her room, in no acute distress. Resident seen for a follow up/med management for neurocognitive disorder with Lewy bodies, generalized anxiety disorder, paroxysmal supraventricular tachycardia, constipation, and COVID-19 in April 2023; 68 years old female directly admitted to [facility] head from home on 06/09/2024 for management [...] Daily, Irma Greco DO, 5 mg at 06/20/24 08 nystatin (Mycostatin) 100,000 unit/gram powder, , [...] Irma Greco DO, 37.5 mg at 06/20/24 1645 QUEtiapine (SEROquel) tablet 25 mg, 25 mg, [...] transit constipation: Continue s (more content not included)...[facility]02-04-2025 NotePsychiatry Service Progress Note Identifying Data Patient Name: Donnie Bullock MRN / CSN: [id number] Date of / Age: 6 1955 / 68 y.o. / female Encounter Date: 06/20/24 Diagnosis: Dementia with Lewy Bodies, Associated REM Sleep behavioral disorder Summary Health care surrogate: Vimal Bullock ([phone]) Mrs. Bullock's cognitive decline started in April,. [...] by Dr. Judy Chino, a psychologist in [place]. She then, approximately 1 year ago, began seeing neurology (Dr. Ambrose at [facility]). She also presented to the [facility] for a second opinion in April, (MOCA score at that time was 17/30). The patient previously received services through [facility], this care was reported to be for her major neurocognitive disorder. This week the patient was experiencing worsening hallucinations. On Wednesday (06/05/2024) she reported that she killed her 4 kids and grandchildren. She stated she had their head in bags. The next day (06/06/2024) she was increasingly paranoid and told her that the scrap dealer was coming to take her away and she was packing. She experiences visual hallucinations every day, intermittently. In particular, Mrs. Bullock sees babies suffocating and people living in her house. She also reports seeing dogs as well as squirrels on her husbands shoulder when they watch TV together. Furthermore, patient states when she was hospitalized at [facility] for (depressive symptoms) she saw ribbons in [...] 06/14: Discontinued Rivastigmine 4.6m (more content not included)...[facility]02-04-2025 NotePROGRESS NOTE PATIENT: Donnie Bullock, SEX: female, : 1955 SUBJECTIVE Patient evaluated in a chair by the table in the dayroom assisted by the nurse, Naty, in no acute distress. Resident seen for a follow up/med management for neurocognitive disorder with Lewy bodies, generalized anxiety disorder, paroxysmal supraventricular tachycardia, constipation, and COVID-19 in April 2023; 68 years old female directly admitted to [facility] head from home on 06/09/2024 for management of worsening visual hallucinations. No nursing or resident concerns besides out looking for the social secretary and was educated, tolerating meds, no recent [...] Nightly, Irma Kononov, DO, 20 mg at 06/19/242116 memantine (Namenda) tablet 5 mg, 5 mg, oral, Daily, Irma Kononov, DO, 5 mg at 06/19/24 0831 nystatin (Mycostatin) 100,000 unit/gram powder, , Topical, BID, Du Mcmillan MD, Given at 06/19/24 2136 OLANZapine (ZyPREXA) injection 2.5 mg, 2.5 mg, intramuscular, BID PRN, Mily Juarez MD polyethylene glycol (Glycolax) packet 17 g, 17 g, oral, Daily PRN, Du Mcmillan MD, 17 g at 06/18/24 0835 QUEtiapine (SEROquel) split tablet 37.5 mg, 37.5 mg, oral, TID with meals, Irma Kononov, DO, 37.5 mg at 06/19/24 165 QUEtiapine (SEROquel) tablet 25 mg, 25 mg, oral, TID PRN, Mily Juarez MD QUEtiapine (SEROquel) tablet 50 mg, 50 mg, oral, Nightly, Irma Kononov, DO, 50 mg at 06/19/242117 sennosides-docusate sodium [...] including groin and abdomina (more content not included)...[facility]02-03-2025 NotePsychiatry Service Progress Note Identifying Data Patient Name: Donnie Bullock MRN / CSN: [id number] Date of / Age: 6 1955 / 68 y.o. / female Encounter Date: 06/19/24 Diagnosis: Dementia with Lewy Bodies, Associated REM Sleep behavioral disorder Summary Health care surrogate: Vmial Bullock ([phone]) Mrs. Bullock's cognitive decline started in April,. [...] by Dr. Judy Chino, a psychologist in [place]. She then, approximately 1 year ago, began seeing neurology (Dr. Ambrose at [facility]). She also presented to the [facility] for a second opinion in April, (MOCA score at that time was 17/30). The patient previously received services through [facility], this care was reported to be for her major neurocognitive disorder. This week the patient was experiencing worsening hallucinations. On Wednesday (06/05/2024) she reported that she killed her 4 kids and grandchildren. She stated she had their head in bags. The next day (06/06/2024) she was increasingly paranoid and told her that the scrap dealer was coming to take her away and she was packing. She experiences visual hallucinations every day, intermittently. In particular, Mrs. Bullock sees babies suffocating and people living in her house. She also reports seeing dogs as well as squirrels on her husbands shoulder when they watch TV together. Furthermore, patient states when she was hospitalized at [facility] for (depressive symptoms) she saw ribbons in [...] 06/14: Discontinued Rivastigmine 4.6m (more content not included)...[facility]02-03-2025 NoteTreatment Review Per report, pt has been compliant with her medications. Pt reported feeling tired and lazy. Pt wants to be healthy for her so he can take care of her. Pt has been having a poor reported appetite per pt. Pt had a good phone call with her . Pt slept for 5 hours of broken sleep. [facility] NoteProblem: Anxiety Goal: STG-Cooperates with evaluations [...] Patient has been doing well without a walker.[facility]02-03-2025 NotePROGRESS NOTE PATIENT: Donnie Bullock, SEX: [...] 68 years old female directly admitted to [facility] head from home on [...] Nightly, Du Mcmillan MD, 10 mg at 06/18/242133 melatonin tablet 20 mg, 20 mg, oral, Nightly, Irma Greco DO, 20 mg at 06/18/242133 memantine (Namenda) tablet 5 mg, 5 mg, [...] 37.5 mg, oral, TID with meals, Irma Amayaonoelena, DO, 37.5 mg at 06/18/24 1705 QUEtiapine (SEROquel) tablet 25 mg, 25 mg, oral, TID PRN, Mily Juarez MD QUEtiapine (SEROquel) tablet 50 mg, 50 mg, oral, Nightly, Irma Amayaonoelena DO, 50 mg at 06/18/242133 sennosides-docusate sodium [...] Slow transit constipation: Co (more content not included)...[facility]02-02-2025 NotePsychiatry Service Progress Note Identifying Data Patient Name: Donnie Bullock MRN / CSN: [id number] Date of / Age: 6 1955 / 68 y.o. / female Encounter Date: 06/18/24 Diagnosis: Dementia with Lewy Bodies, Associated REM Sleep behavioral disorder Summary Health care surrogate: Vimal Bullock ([phone]) Mrs. Bullock's cognitive decline started in April,. [...] by Dr. Judy Chino, a psychologist in [place]. She then, approximately 1 year ago, began seeing neurology (Dr. Ambrose at [facility]). She also presented to the [facility] for a second opinion in April, (MOCA score at that time was 17/30). The patient previously received services through [facility], this care was reported to be for her major neurocognitive disorder. This week the patient was experiencing worsening hallucinations. On Wednesday (06/05/2024) she reported that she killed her 4 kids and grandchildren. She stated she had their head in bags. The next day (06/06/2024) she was increasingly paranoid and told her that the scrap dealer was coming to take her away and she was packing. She experiences visual hallucinations every day, intermittently. In particular, Mrs. Bullock sees babies suffocating and people living in her house. She also reports seeing dogs as well as squirrels on her husbands shoulder when they watch TV together. Furthermore, patient states when she was hospitalized at [facility] for (depressive symptoms) she saw ribbons in [...] 06/14: Discontinued Rivastigmine 4.6m (more content not included)...[facility]02-02-2025 NoteProblem: Anxiety Goal: STG-Cooperates with evaluations from physicians/RNs Outcome: Progressing Problem: Confusion Goal: LTG-Interact appropriately within social settings Outcome: Progressing Problem: Depression Goal: STG-Will perform 50% of self-care by discharge Outcome: Progressing Problem: Fall Risk Goal: LTG-No falls Outcome: [facility]ing[facility]-01-2025 NotePROGRESS NOTE PATIENT: Donnie Bullock, SEX: female, : 1955 SUBJECTIVE Patient evaluated in a chair by the table in the dayroom eating breakfast, in no acute distress. Resident seen for a follow up/med management for neurocognitive disorder with Lewy bodies, generalized anxiety disorder, paroxysmal supraventricular tachycardia, constipation, and COVID-19 in April 2023; 68 years old female directly admitted to [facility] from home on 06/09/2024 for management [...] meals, Irma Greco DO, 37.5 mg at 06/16/24 1807 QUEtiapine (SEROquel) tablet 25 mg, 25 mg, oral, TID PRN, Mily Juarez MD QUEtiapine (SEROquel) tablet 50 mg, 50 mg, oral, Nightly, Irma Greco DO, 50 mg at 06/16/242001 sennosides-docusate sodium [...] at bedtime daily Depre (more content not included)...[facility] 06-16-2024 NoteProblem: Anxiety Goal: STG-Cooperates with evaluations from physicians/RNs Outcome: Progressing Problem: Confusion Goal: LTG-Take medications as prescribed Outcome: Progressing Problem: Depression Goal: LTG-Demonstrate symptoms will not compromise daily living Outcome: Progressing Problem: Fall Risk Goal: LTG-No falls Outcome: [facility]01-31-2025 NoteTreatment Review Per report, pt continues to be depressed. Pt was looking for her and her parents yesterday. Pt did not have any hallucinations last night but was having hallucinations in the afternoon and was looking at the ground. Pt had her seroquel increased. Discharge plan: [facility]01-31-2025 NotePsychiatry Service Progress Note Identifying Data Patient Name: Donnie Bullock MRN / CSN: [id number] Date of / Age: 6 1955 / 68 y.o. / female Encounter Date: 06/16/24 Diagnosis: Dementia with Lewy Bodies, Associated REM Sleep behavioral disorder Summary Health care surrogate: Vimal Bullock ([phone]) Mrs. Bullock's cognitive decline started in April,. [...] by Dr. Judy Chino, a psychologist in [place]. She then, approximately 1 year ago, began seeing neurology (Dr. Ambrose at [facility]). She also presented to the [facility] for a second opinion in April, (MOCA score at that time was 17/30). The patient previously received services through [facility], this care was reported to be for her major neurocognitive disorder. This week the patient was experiencing worsening hallucinations. On Wednesday (06/05/2024) she reported that she killed her 4 kids and grandchildren. She stated she had their head in bags. The next day (06/06/2024) she was increasingly paranoid and told her that the scrap dealer was coming to take her away and she was packing. She experiences visual hallucinations every day, intermittently. In particular, Mrs. Bullock sees babies suffocating and people living in her house. She also reports seeing dogs as well as squirrels on her husbands shoulder when they watch TV together. Furthermore, patient states when she was hospitalized at [facility] for (depressive symptoms) she saw ribbons in [...] 06/14: Discontinued Rivastigmine 4.6m (more content not included)...[facility]01-31-2025 NotePROGRESS NOTE PATIENT: Donnie Bullock, SEX: female, : 1955 SUBJECTIVE Patient evaluated in a chair by the table in the dayroom eating breakfast, in no acute distress.. Resident seen for a follow up/med management for neurocognitive disorder with Lewy bodies, generalized anxiety disorder, paroxysmal supraventricular tachycardia, constipation, and COVID-19 in April 2023; 68 years old female directly admitted to [facility] behavioral head from home on [...] Irma Greco DO, 25 mg at 06/15/24 1650 QUEtiapine (SEROquel) tablet 50 mg, 50 mg, oral, Nightly, Irma Greco DO, 50 mg at 06/15/242019 sennosides-docusate sodium [...] with Lewy bodies: On (more content not included)...[facility]01-30-2025 NoteProblem: Anxiety Goal: STG-Cooperates with evaluations from physicians/RNs Outcome: Progressing Problem: Confusion Goal: LTG-Interact appropriately within social settings Outcome: Progressing Problem: Psychotic Symptoms Goal: LTG-Take medications as prescribed Outcome: Progressing Problem: Fall Risk Goal: LTG-No falls [facility]: [facility] NotePROGRESS NOTE PATIENT: Donnie Bullock, SEX: female, : 1955 SUBJECTIVE Patient evaluated while sitting by the edge of the bed in her room, in no acute distress. Resident seen for a follow up/med management for neurocognitive disorder with Lewy bodies, generalized anxiety disorder, paroxysmal supraventricular tachycardia, constipation, and COVID-19 in April 2023; 68 years old female directly admitted to [facility] head from home on [...] PRN, Derrick Duckworth MD, 650 mg at 06/13/24 2007 atorvastatin (Lipitor) tablet 10 mg, 10 mg, oral, Nightly, Du Mcmillan MD, 10 mg at 06/14/242007 melatonin tablet 20 mg, 20 mg, oral, Nightly, Irma Greco DO, 20 mg at 06/14/24 2007 nystatin (Mycostatin) 100,000 unit/gram powder, , Topical, [...] meals, Irma Greco DO, 25 mg at 06/14/24 1653 QUEtiapine [...] daily Major Neurocognitive Di (more content not included)...[facility]01-30-2025 NotePsychiatry Service Progress Note Identifying Data Patient Name: Donnie Bullock MRN / CSN: [id number] Date of / Age: 6 1955 / 68 y.o. / female Encounter Date: 06/15/24 Diagnosis: Dementia with Lewy Bodies, Associated REM Sleep behavioral disorder Summary Health care surrogate: Vimal Bullock ([phone]) Mrs. Bullock's cognitive decline started in April,. [...] by Dr. Judy Chino, a psychologist in [place]. She then, approximately 1 year ago, began seeing neurology (Dr. Ambrose at [facility]). She also presented to the [facility] for a second opinion in April, (MOCA score at that time was 17/30). The patient previously received services through [facility], this care was reported to be for her major neurocognitive disorder. This week the patient was experiencing worsening hallucinations. On Wednesday (06/05/2024) she reported that she killed her 4 kids and grandchildren. She stated she had their head in bags. The next day (06/06/2024) she was increasingly paranoid and told her that the scrap dealer was coming to take her away and she was packing. She experiences visual hallucinations every day, intermittently. In particular, Mrs. Bullock sees babies suffocating and people living in her house. She also reports seeing dogs as well as squirrels on her husbands shoulder when they watch TV together. Furthermore, patient states when she was hospitalized at [facility] for (depressive symptoms) she saw ribbons in [...] 06/14: Discontinued Rivastigmine 4.6m (more content not included)...[facility]01-29-2025 NoteProblem: Anxiety Goal: STG-Cooperates with evaluations from physicians/RNs Outcome: Progressing Problem: Confusion Goal: LTG-Interact appropriately within social settings Outcome: Progressing Problem: Depression Goal: LTG-Take medications as prescribed Outcome: Progressing Problem: Psychotic Symptoms Goal: LTG-Decrease in targeted symptoms [facility]: [facility] NoteTreatment Review Per report, pt understands that she is diagnosed with lewy body dementia. Pt reported that she saw a bunny on the foot of her bed. Discharge plan: [facility]01-29-2025 NoteProblem: Anxiety Goal: STG-Cooperates with evaluations from physicians/RNs Outcome: Progressing Goal: STG-Will not pace the floor more than 10 per shift Outcome: Progressing Problem: Confusion Goal: STG-Engages in social situations appropriately 3 per shift Outcome: Not ProgressingWV[facility]-29-2025 Note PROGRESS NOTE PATIENT: Donnie Richardson Elder, SEX: female, : 1955 SUBJECTIVE Patient evaluated while lying down supine in bed in her room, in no acute distress. Resident seen for a follow up/med management for neurocognitive disorder with Lewy bodies, generalized anxiety disorder, paroxysmal supraventricular tachycardia, constipation, and COVID-19 in April 2023; 68 years old female directly admitted to [facility] head from home on 06/09/2024 for management [...] 12 mg, 12 mg, oral, Nightly, Irma Amayaonoelena, DO, 12 mg at 06/13/241999 nystatin (Mycostatin) [...] meals, Irma Greco DO, 25 mg at 06/13/24 1635 QUEtiapine (SEROquel) tablet 50 mg, 50 mg, oral, Nightly, Irma Greco DO, 50 mg at 06/13/241999 rivastigmine (Exelon) 4.6 mg/24 hour 1 patch, 1 patch, transdermal, Daily, Irma Greco DO, 1 patch at 06/13/24 0832 sennosides-docusate [...] mg by mouth (more content not included)... [facility]01-29-2025 NotePsychiatry Service Progress Note Identifying Data Patient Name: Donnie Bullock MRN / CSN: [id number] Date of / Age: 6 1955 / 68 y.o. / female Encounter Date: 06/14/24 Diagnosis: Dementia with Lewy Bodies, Associated REM Sleep behavioral disorder Summary Health care surrogate: Vimal Bullock ([phone]) Mrs. Bullock's cognitive decline started in April,. [...] by Dr. Judy Chino, a psychologist in [place]. She then, approximately 1 year ago, began seeing neurology (Dr. Ambrose at [facility]). She also presented to the [facility] for a second opinion in April, (MOCA score at that time was 17/30). The patient previously received services through [facility], this care was reported to be for her major neurocognitive disorder. This week the patient was experiencing worsening hallucinations. On Wednesday (06/05/2024) she reported that she killed her 4 kids and grandchildren. She stated she had their head in bags. The next day (06/06/2024) she was increasingly paranoid and told her that the scrap dealer was coming to take her away and she was packing. She experiences visual hallucinations every day, intermittently. In particular, Mrs. Bullock sees babies suffocating and people living in her house. She also reports seeing dogs as well as squirrels on her husbands shoulder when they watch TV together. Furthermore, patient states when she was hospitalized at [facility] for (depressive symptoms) she saw ribbons in [...] 06/14: Discontinued Rivastigmine 4.6m (more content not included)...[facility]01-28-2025 NoteProblem: Agitation Goal: LTG-Sleeps through the night Outcome: Not Progressing Problem: Anxiety Goal: LTG-Decrease worry of fearful thoughts and/or behaviors Outcome: Not Progressing Problem: Confusion Goal: LTG-Interact appropriately within social settings Outcome: Not ProgressingWV[facility]01-28-2025 Note PROGRESS NOTE PATIENT: Donnie Bullock, SEX: female, : 1955 SUBJECTIVE Patient evaluated in a chair by the table in the dayroom eating breakfast, in no acute distress. Resident seen for a follow up/med management for neurocognitive disorder with Lewy bodies, generalized anxiety disorder, paroxysmal supraventricular tachycardia, constipation, and COVID-19 in April 2023; 68 years old female directly admitted to [facility] behavioral head from home on [...] olanzapine and quetiapine as (more content not included)...[facility]01-28-2025 Note Psychiatry Service Progress Note Identifying Data Patient Name: Donnie Bullock MRN / CSN: [id number] Date of / Age: 6 1955 / 68 y.o. / female Encounter Date: 06/13/24 Diagnosis: Dementia with Lewy Bodies, Associated REM Sleep behavioral disorder Summary Health care surrogate: Vimal Bullock ([phone]) Mrs. Bullock's cognitive decline started in April,. [...] by Dr. Judy Chino, a psychologist in [place]. She then, approximately 1 year ago, began seeing neurology (Dr. Ambrose at [facility]). She also presented to the [facility] for a second opinion in April, (MOCA score at that time was 17/30). The patient previously received services through [facility], this care was reported to be for her major neurocognitive disorder. This week the patient was experiencing worsening hallucinations. On Wednesday (06/05/2024) she reported that she killed her 4 kids and grandchildren. She stated she had their head in bags. The next day (06/06/2024) she was increasingly paranoid and told her that the scrap dealer was coming to take her away and she was packing. She experiences visual hallucinations every day, intermittently. In particular, Mrs. Bullock sees babies suffocating and people living in her house. She also reports seeing dogs as well as squirrels on her husbands shoulder when they watch TV together. Furthermore, patient states when she was hospitalized at [facility] for (depressive symptoms) she saw ribbons in [...] Subjective Overnight Events: She (more content not included)...[facility]01-27-2025 NoteTreatment Review Per report, pt rated her anxiety a 5 and her depression a 4. Pt denied having visual hallucinations of ribbons. Pt told RN that there was a fire truck in her room dressed as a bumble bee. Discharge plan: [facility]01-27-2025 NotePsychiatry Service Progress Note Identifying Data Patient Name: Donnie Bullock MRN / CSN: [id number] Date of / Age: 6 1955 / 68 y.o. / female Encounter Date: 06/12/24 Diagnosis: Dementia with Lewy Bodies, Associated REM Sleep behavioral disorder Summary Health care surrogate: Vimal Bullock ([phone]) Mrs. Bullock's cognitive decline started in April,. [...] by Dr. Judy Chino, a psychologist in [place]. She then, approximately 1 year ago, began seeing neurology (Dr. Ambrose at [facility]). She also presented to the [facility] for a second opinion in April, (MOCA score at that time was 17/30). The patient previously received services through [facility], this care was reported to be for her major neurocognitive disorder. This week the patient was experiencing worsening hallucinations. On Wednesday (06/05/2024) she reported that she killed her 4 kids and grandchildren. She stated she had their head in bags. The next day (06/06/2024) she was increasingly paranoid and told her that the scrap dealer was coming to take her away and she was packing. She experiences visual hallucinations every day, intermittently. In particular, Mrs. Bullock sees babies suffocating and people living in her house. She also reports seeing dogs as well as squirrels on her husbands shoulder when they watch TV together. Furthermore, patient states when she was hospitalized at [facility] for (depressive symptoms) she saw ribbons in [...] the unit at t (more content not included)...[facility]01-27-2025 Note PROGRESS NOTE PATIENT: Donnie Bullock, [...] 68 years old female directly admitted to [facility] Senior behavioral head from home on [...] Nightly, Du Mcmillan MD, 10 mg at 06/11/242049 melatonin tablet [...] as needed, psych manage Du Mcmillan MD 06/12/2024[facility]01[facility] NotePsychiatry Service Progress Note Identifying Data Patient Name: Donnie Bullock MRN / CSN: [id number] Date of / Age: 6 1955 / [...] for: TSH , VITD25 , FOLATE , [id number] Lab Results Component Value Date LDL 160 [...] in therapeutic unit milieu. Signature Irma Greco, 06/11/2024 1:16 PM [facility] Note PROGRESS NOTE PATIENT: Donnie Bullock, [...] admitted to [facility] head from home on 06/09/2024 for management [...] mg, 10 mg, oral, Nightly, Du Mcmillan MD mirtazapine (Remeron) tablet 7.5 mg, 7.5 [...] as needed, psych manage Du Mcmillan MD 06/11/2024[facility]01-25-2025 NoteProblem: Anxiety Goal: STG-Cooperates with evaluations [...] The clinical goals for the shift include safetyUnLakeHealth [facility] Medical [id number] Note Attestation signed by MINDY Hunt at 06/10/2024 10:24 AM I agree with the content of this note and have no current revisions. Psychosocial Narrative Summary Subject: Donnie Chun Bullock Reason for admission: Patient is a 68 year old female who was directly admitted to the [facility] unit from home after worsening depression, [...] Patient then saw neurologist Dr. Ambrose at [facility] and went for a second opinion at the [facility]. Patient was in a psychiatric hospitalization for depression at [facility] in September 2023. 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 Patient has recently been having worsening hallucinations, reporting that she killed her 4 kids and grandchildren and that she had their heads in bags. She also commented that the scrap dealer was coming to take her away and that there were squirrels on her 's shoulders when they watched tv together. When [facility], she reported seeing ribbons in the [...] follow [facility] NoteHISTORY AND PHYSICAL PATIENT: Donnie Bullock, SEX: female, : 1955 Chief Complaint: Geriatrics consulted for medical management History of Present Illness: Patient evaluated while lying down supine in bed in her room, in no acute distress. 68 years old female directly admitted to [facility] head from home on 06/09/2024 for management [...] Patient declined Stress: Stress Concern Present (06/10/2024) [place] [place] [employer] - Occupational Stress Questionnaire Feeling of Stress : To some extent Social Connections: Moderately Integrated (06/10/2024) Social Connection and Isolation Panel [NHANES] Frequency of Communication with Friends and Family: Twice a week Frequency of Social Gatherings with Friends and Family: Three times a week Attends Quaker Services: More than 4 times per year [...] Palpations: Abdomen is soft. (more content not included)...[facility]01-13-2025 Telephone encounter Note* Telephone Encounter - Ivette Kerr RN - 05/29/2024 5:01 PM EST Noted. Ivette Kerr RN [facility] Work Phone: [phone] Miscellaneous Notes* Telephone Encounter - Ivette Kerr RN - 05/29/2024 5:01 PM EST Noted. Ivette Kerr RN documented in [facility]01-13-2025 Telephone encounter Note * Telephone Encounter - [...] brain disc will be picked tomorrow from [facility] and Vimal will mail it to Sera Killian APRN, ELIANE. - Vimal was advised to keep our office updated. Ivette Kerr RN [facility] Work Phone: [phone] Miscellaneous Notes* Telephone Encounter - Ivette Kerr [...] brain disc will be picked tomorrow from [facility] and Vimal will mail it to Sera Killian APRN, ELIANE. - Vimal was advised to keep our office updated. Ivette Kerr RN * Telephone Encounter - Rose Baldwin - 05/29/2024 12:04 PM EST Spouse, Vimal LVM on [facility] Nurse Line on 05/26 @2:07P. Pt name and verified 1955. Vimal states pt is shaking bad and really anxious. Please call back at . Thank you, Rose * Telephone Encounter - Sera Killian APRN.NURSE STAFF INDUSTRIAL - 05/26/2024 6:30 PM EST Call to [...] week. Sera Killian APRN.ELIANE documented in this encounterK[facility]01-13-2025 Telephone encounter Note * Telephone Encounter - Rose Baldwin - 05/29/2024 12:04 PM EST Spouse, Vimal SANDERS on [facility] Nurse Line on 05/26 @2:07P. Pt name and verified 1955. Vimal states pt is shaking bad and really anxious. Please call back at . Thank you, Rose [facility]01-13-2025 History of Present illness Narrative* Rei Cobos, - 05/29/2024 8:45 AM EST Images from the original note were not included. Chief Complaint: Dementia Subjective Donnie Richardson Elder, 68 y.o., female Patient presents today for a follow up for rapidly progressive dementia. She is accompanied by her and son. states they got a second opinion at [facility]. She was started on donepezil 5 [...] chronic DDD (degenerative disc disease), cervical Dementia (CMS/HCC) Depression (CMS/[facility]) May 25 Dyslipidemia (CMS/HCC) DALILA (generalized anxiety disorder) ([facility]/HCC) Gastroesophageal reflux disease Impaired fasting glucose Lewy body dementia (CMS/HCC) Loss of balance Low back pain, non-specific Olecranon bursitis, right elbow Orthostatic hypotension Osteopenia of lumbar spine Parkinson's disease ([facility]) 2023 PSVT (paroxysmal supraventricular tachycardia) ([facility]) Skin cancer Vertigo Past Surgical History: Procedure Laterality Date CARPAL TUNNEL RELEASE Left 06/15/2014 MTP CARPAL TUNNEL RELEASE Right 06/29/2014 MTP DILATION AND CURETTAGE OF UTERUS 2004 EYE SURGERY HYSTERECTOMY 2008 ME REMOVE TONSILS/ADENOIDS,12+ Y/O 1958 Family History Problem [...] reflexes are 2+ and symmetric throughout. Coordination: Yxzkli-oq-bqvn testing and rapid alternating movements are normal Gait: Normal Review and summary of old records: Patient was seen at [facility] for altered mental status at the end [...] dementia. Patient did have a visit with [facility] and they had recommended coming off of [...] of mental health issues documented in this encounterSaint Louis University Health Science [id number] Telephone encounter Note* Telephone Encounter - Sera Killian APRN.ELIANE - 05/26/2024 6:30 PM EST Call to [...] follow up next week. Sera Killian APRN.CNP [facility]01-06-2025 Telephone encounter Note* Telephone Encounter - Sera Killian APRN.CNP - 05/22/2024 3:09 PM EST The following approved medication requests have been transmitted electronically. Requested Prescriptions Signed Prescriptions Disp Refills donepezil (ARICEPT) 5 mg tablet 30 tablet 3 Sig: Take 1 tablet by mouth daily after breakfast. Authorizing Provider: SERA KILLIAN APRN.CNP [facility]01-06-2025 Miscellaneous Notes* Telephone Encounter - Sera Killian APRN.CNP - 05/22/2024 3:09 PM EST The following approved medication requests have been transmitted electronically. Requested Prescriptions Signed Prescriptions Disp Refills donepezil (ARICEPT) 5 mg tablet 30 tablet 3 Sig: Take 1 tablet by mouth daily after breakfast. Authorizing Provider: SERA KILLIAN APRN.CNP documented in this encounterKettering [facility]01-06-2025 Telephone encounter Note * Telephone Encounter - Sera Killian APRN.CNP - 05/22/2024 2:09 PM EST OG call to spouse, discussion held. We agreed to continue the taper of Haldol as originally ordered. And add Donepezil (Aricept) 5 mg daily after breakfast. Sera Killian APRN.CNP [facility]01-06-2025 Miscellaneous Notes* Telephone Encounter - Sera Killian APRN.CNP - 05/22/2024 2:09 PM EST OG call to spouse, discussion held. We agreed to continue the taper of Haldol as originally ordered. And add Donepezil (Aricept) 5 mg daily after breakfast. Sera Killian APRN.ELIANE * Telephone Encounter - Ivette Kerr RN [...] 05/18/2024. Advised that he may send a mydeco Message. Ivette Kerr RN * Telephone Encounter - Ivette Kerr RN - 05/15/2024 5:28 PM EST Voice message left for Vimal that someone from our office will attempt to reach out to him on the next business day to address his concerns. Ivette Kerr RN * Telephone Encounter - Rose Baldwin - 05/15/2024 3:18 PM EST Spouse, Carlos LVM on [facility] Nurse Line on 05/15 @2:59P. Pt name and verified 1955. Carlos is requesting to speak with nurse re: pt symptoms. Hallucinations are getting worse. Please call back at . Thank you, Rose documented in this encounterKet[facility]01-03-2025 Telephone encounter Note * Telephone Encounter - [...] dose of Haldol until Vernon Killian APRN, NURSE STAFF INDUSTRIAL reviews and makes her recommendation. Donnie does have a follow up with local neurologist on 05/29/2024 and a follow up on 07/27/2024 with Sera. Ivette Kerr RN [facility] Work Phone: [phone] Telephone encounter Note* Telephone Encounter - Ivette [...] cell phone. Ivette Kerr RN [facility]12-31-2024 Telephone encounter Note* Telephone Encounter - Ivette Kerr RN - 05/16/2024 1:57 PM EST Second Attempt Voice message left for Vimal that someone from our office will attempt to reach out to him on the next business day, 05/18/2024. Advised that he may send a My Chart Message. Ivette Kerr RN [facility]12-30-2024 Telephone encounter Note* Telephone Encounter - Ivette Kerr RN - 05/15/2024 5:28 PM EST Voice message left for Vimal that someone from our office will attempt to reach out to him on the next business day to address his concerns. Ivette Kerr, RN [facility]12-30-2024 Telephone encounter Note* Telephone Encounter - Rose Baldwin - 05/15/2024 3:18 PM EST Spouse, Carlos SANDERS on [facility] Nurse Line on 05/15 @2:59P. Pt name and verified 1955. Carlos is requesting to speak with nurse re: pt symptoms. Hallucinations are getting worse. Please call back at . Thank you, Rose [facility]12-19-2024 History of Present illness Narrative* Remigio Simpson MD - 05/04/2024 12:19 PM EST requests PT specifically for Parkinson's disease. Please write order for PT to evaluate andtreat with diagnosis of Lewy body dementia and Parkinson's. Please send order to PT Services in [place]. documented in this encounterSaint Louis University Health Science [id number] History of Present illness Narrative* Herson Uribe [...] OF UTERUS 2004 EYE SURGERY HYSTERECTOMY 2007 ME REMOVE TONSILS/ADENOIDS,12+ Y/O 1959 Family History Family History Problem Relation Name Age of Onset Cancer Mother Ayla Pritesh Arthritis Mother Ayla Pritesh Hypertension Father Carlos Jonas Cancer Father Carlos Pritesh Heart disease Sibling Arthritis Maternal Grandmother Dayna Cullen Objective General assessment: Alert and oriented. Pleasant [...] understanding. Herson Uribe DPM documented in this [facility]12-18-2024 Instructions* Patient Instructions* Herson Uribe DPM - 05/03/2024 9:45 AM EST As noted documented in this [facility]12-11-2024 Telephone encounter Note* Telephone Encounter - Francie [...] or concerns that arise. Francie Lira RN [facility]12-11-2024 Miscellaneous Notes* Telephone Encounter - Francie Lira [...] advise. Francie Lira RN documented in this encounterKettering [facility]12-10-2024 Telephone encounter Note * Telephone Encounter - [...] to review and advise. Francie Lira RN [facility]12-05-2024 Telephone encounter Note* Telephone Encounter - Sera Killian APRN.CNP - 04/20/2024 5:03 PM EST Confidential email correspondence sent to spouse re: updated Haldol taper dosing as follows: Reduce to Haldol 1 mg at bedtime for two weeks, then, Reduce to Haldol 0.5 mg (1/2 of 1mg tab) at bedtime for two weeks - then stop altogether. Sera Killian APRN.CNP [facility]12-05-2024 Miscellaneous Notes* Telephone Encounter - Sera Killian APRN.CNP - 04/20/2024 5:03 PM EST Confidential email correspondence sent to spouse re: updated Haldol taper dosing as follows: Reduce to Haldol 1 mg at bedtime for two weeks, then, Reduce to Haldol 0.5 mg (1/2 of 1mg tab) at bedtime for two weeks - then stop altogether. Sera Killian APRN.CNP documented in this encounterKettering [facility]12-05-2024 Telephone encounter Note * Telephone Encounter - [...] other questions or concerns. Francie Lira RN [facility]12-05-2024 Miscellaneous Notes* Telephone Encounter - Francie Lira [...] concerns. Francie Lira RN documented in this encounterKettering Health [facility] Campus12-04-2024 Instructions* Patient Instructions* Sera Killian APRN.ELIANE - 04/19/2024 1:58 PM EST Dear Mrs. [...] about this program or register call the [facility] Sheriff's office at [phone] or [facility] Senior Services at [phone] ([facility]). Medical Alert System Today Donnie had difficulty recalling what number to contact in the event of an emergency. We recommend utilizing a Medical Alert System to increase safety in the home. In the event of a fall or an emergency, help is available at the push of a button. Some options for this are: Sirigen: Call or visit https://lucierna/ & click on Seniors tab -Mobile System. -Fall detection. -Medication reminders. -GPS monitoring. -Kale fencing option for wandering. -Checks heart rate, blood pressure, temperature, and oxygen levels. -Worn as a wristband. Life Alert: Call or visit www.NuORDER -Offers home based and mobile system. -Offers a push button for the shower. -Comes in a lanyard. Lifefone: Call or visit www.[employer] -Home based or mobile system. -Fall detection. -GPS detects location of emergency. -Water proof. -Worn as a lanyard, wristband, or offers a push button. Lifeline: Call or visit www.[employer] -Home based & mobile system. -Fall detection. -GPS detects location of the emergency. -Water resistant; can be worn in the shower. -Worn as a wristband or lanyard. LiveDormzy: Call or visit wwwChestnut Medical/medical-alerts -Offers mobile systems. -Offers fall detection. -Comes in a lanyard. Also compatible with [employer]. Medical Alert: Call or visit www.DoYouRemember -Offers home based & mobile system. -Mobile system offers GPS monitoring. -Fall detection for all systems. -Systems can be worn in the bath or shower. -Two way speaker allows you to communicate with a trained response specialist who will determine who to contact for help (family, friends, or emergency responders). -Comes in a lanyard or wristband. Medical Guardian: Call or visit www.Appiphanyn[employer] -Offers home based and mobile system. -GPS tracking for mobile system. -Water resistant, not water proof. -Worn as a lanyard or wristband. Mobile Help: Call or visit www.Kiko -Offers home based & mobile system. -Comes in a lanyard or small mobile device. UnaliWear: Call or visit www.[employer]el [employer]aceuticals -Home based and mobile system. -Fall detection. [...] to build a relationship with the caregiver. [facility] Adult Home Care: or [employer] [employer]: [facility]: (Limited services at this time) Comfort Keepers: (Services in [facility] are limited, but available) First Choice: or Home Instead: [facility] Health: [facility]: Luis Capps: (Serves [facility]) Education & Support When an individual [...] lewybodyresourcecenter.org or call their support line at [phone] or The Alzheimer's Association (web site: alz.org/hutson) An organization that provides education and support to individuals/caregivers affected by memory loss, Alzheimer's disease, and all forms of dementia. Available 24 hours a day, 7 days per week. Contact: Local: ; Toll free: [phone] Family Caregiver [place] (web site: Caregiver.org) BLANK Parrish-- a secure online solution for quality information, support, and resources for family caregivers. Contact: Toll-free number: [phone] Support Group Information [facility] Lewy Body Dementia Caregiver Support Group-Co sponsored by The Alzheimer's Association Wednesday of each month from 1:30-3:30pm Virtual group by zoom, intended for caregivers of persons living with Dementia with Lewy Bodies andParkinson s Disease Dementia. To enroll in the group, please contact the Alzheimer s Association Helpline at [facility] Lewy Body Support Group Wednesday of the Month 3:00pm EST Virtual group by Zoom to support caregivers of those with Lewy Body Dementia. For more information and for the Zoom link, please contact Starla Coello at [phone] or Literature The 36 Hour Day- Shy [...] place (living will & healthcare power of pilot teacher), which is excellent. Documents for healthcare can be uploaded to your medical record in the following ways: -Bring the forms to any [facility] medical appointment. A copy will be made and scanned into your medical record. -Scan and send to [email or web address] -Fax to [phone] -Mail to: [facility] Health Information Management, Ab7 Advance Directives Processing [address], [place] [address] Durable Power of Taste Tester for Finance We encourage you to verify that the forms for durable power of pilot teacher regarding finance have beencompleted. Durable Power of Taste Tester for Finance allows a person to name an individual that they would want tomake financial decisions on their behalf, in the event that they are unable to do so. These decisions may include: -Payment of a loved one s bills -Payment of their medical expenses -Investments made on their behalf -Collection of their custodial benefits -Application for insurance benefits You can visit https://[email or web address]/topic/financial-poa for more information. These forms require a notary upon completion. Follow Up We would like you to return to [facility] for a follow up visit in 3-4 months. Our office can be reached by calling [phone] Option 1. Sincerely, Sera Killian APRN.HEALTH INFORMATION MANAGEMENT DIRECTOR JOSÉ ANTONIO Srivastava, [facility] BEBE Kramer documented in this encounterKettering Health [facility] Campus12-04-2024 NoteHNO ID: [id number] Author: NIKKI DARBY LISW Service: ? 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 Pt states that her is pursuing a second opinion regarding her DLB Vital Signs: BP 129/83 (BP Site: Left Arm, BP Position: Sitting, BP Cuff Size: Regular Adult) Pulse 76 Wt 73.8 kg (162 lb 11.2 oz) [facility] History of Present illness Narrative* Francie Lira RN - 04/19/2024 12:45 PM ESTSummary: Nurse Note Donnie Bullock is a 68 year old year old left handed woman Accompanied by: spouse and son. Referralby: No referring provider defined for this encounter. 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 Pt states that her is pursuing a second opinion regarding her DLB Vital Signs: BP 129/83 (BP Site: Left Arm, BP Position: Sitting, BP Cuff Size: Regular Adult) Pulse 76 Wt 73.8 kg (162 lb 11.2 oz) Francie Lira RN * Sera Killian APRN.NURSE STAFF INDUSTRIAL - 04/19/2024 11:58 AM EST Date: April 19, 2024 DONNIE BULLOCK [address] [place] [address] [place] [address] [facility] INITIAL PATIENT EVALUATION Reason for Consult: Lewy Body Dementia-here for a 2nd opinion I had the pleasure of seeing this 68 year old year old female at the [facility]. The patient is referred by SELF. Patient is accompanied by and information obtained from SpouseValdomes and son Geoff and available records in [...] by neurology provider Dr. Rei Cobos at [facility], followed since August 2023. No cognitive testing on file. Formerly followed by psychiatry for LBD/anxiety. Last seen in September 2023. Care was established following her inpatient behavioral health hospitalization in April 2023/May 2023. No family history of dementia or Parkinson's Disease. Per spouse and son report: -Lumbar puncture at [facility] September 30, 2023. Work up completed for possible rapidly progressing dementia. -Prior brain imaging (MRI/CT at outside medical systems). -Hallucinations daily (asks her spouse when is Vimal going to come home? ; sees babies; puppies, squirrel on spouse's shoulder, gives sign of peace to people she sees in her home). -Recently discharged from [facility] services 4 months ago. Also previously [...] wanting to live, she was admitted to [facility] for further evaluation. Mobility changes [...] spouse Agencies involved: none currently-previously followed by [facility] Special Concerns: Hallucinations/Delusions: [...] Financial POA: Spouse will verify-information reviewed Consult [facility] SILK SCREENER if not completed: role introduced, reviewed national organizations offering support, provided communication tips and caregiver strategies. SOCIAL HISTORY -Education completed: 14 -Some college -No tobacco. No significant alcohol abuse. No history of substance abuse. 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 -Marital status: -4 children -Guardian No -Is [...] Version 7.1 Total Score: 17/30 Visuospatial/Executive Alternating Orchard Making: Patient is unable to successfully complete [...] Clock Drawin/5 poor Abstract thinking was good. detention memory was good. She could name 7 [...] diagnosis. This is her first visit to [facility]. MoCA administered with score of 17/30. This [...] to live, and she was admitted to [facility] for further evaluation. She was [...] which included preparing to see the patient, khfl-[id number] patient care, completing clinical documentation, obtaining and/or reviewing separately obtained history, counseling and educating the patient/family/caregiver, ordering medications, gloria ts, or procedures, communicating with other HCPs (not separately reported) and care coordination (not separately reported). Sera Killian APRN, Geriatric Clinical Nurse Specialist [facility] CC: 1. No primary care provider on file., (fax) None 2. Donnie Bullock, [address] [place] [address] documented in this [facility]-2024 NoteHNO ID: [id number] Author: SERA KILLIAN APRN.NURSE STAFF INDUSTRIAL Service: ? Author Type: Nurse Practitioner Type: Progress Notes Filed: 04/19/2024 17:34 Note Text: Date: April 19, 2024 DONNIE BULLOCK [address] [place] [address] [facility] INITIAL PATIENT EVALUATION Reason for Consult: Lewy Body Dementia-here for a 2nd opinion I had the pleasure of seeing this 68 year old year old female at the [facility]. The patient is referred by SELF. [...] by neurology provider Dr. Rei Cobos at [facility], followed since August 2023. No cognitive testing on file. Formerly followed by psychiatry for LBD/anxiety. Last seen in September 2023. Care was established following her inpatient behavioral health hospitalization in April 2023/May 2023. No family history of dementia or Parkinson's Disease. Per spouse and son report: -Lumbar puncture at [facility] September 30, 2023. Work up completed for possible rapidly progressing dementia. -Prior brain imaging (MRI/CT at outside medical systems). -Hallucinations daily (asks her spouse when is Vimal going to come home? ; sees babies; puppies, squirrel on spouse's shoulder, gives sign of peace to people she sees in her home). -Recently discharged from [facility] services 4 months ago. Also previously [...] wanting to live, she was admitted to [facility] for further evaluation. Mobility changes [...] spouse Agencies involved: none currently-previously followed by [facility] Special Concerns: Hallucinations/Delusions: [...] Financial POA: Spouse will verify-information reviewed Consult [facility] SILK SCREENER if not completed: role introduced, reviewed national organizations offering support, provided communication tips and caregiver strategies. SOCIAL HISTORY -Education completed: 14 -Some college -No tobacco. No significant alcohol abuse. No history of substance abuse. 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 Please send orders to [email or web address]. documented in this encounterSaint Louis University Health Science [id number] History of Present illness Narrative* Alexandria Ray, [...] Continue progression as tolerated. documented in this encounterSaint Louis University Health Science CenterYoitcffkcf68-24-7820 History of Present illness Narrative* Deneen Miller, IRRIGATOR VALVE PIPE - 03/30/2024 11:30 AM EST Images from the original note were not included. Physical Therapy Physical Therapy Treatment Visit Patient Name: Donnie Bullock Today's Date: 03/30/2024 Encounter Diagnoses Name Primary? Generalized weakness Yes Rapidly progressive dementia (CMS/HCC) Unsteady gait Visit number: 5 Supervised time: 42 min Total time: 44 min Time in: 11:27 am Time out: 12:11 pm Subjective Donnie A Elder 68 y.o. female presents to physical [...] 03/31/2024 6:38 AM EST documented in this encounterSaint Louis University Health Science [id number] History of Present illness Narrative* Beti Chávez [...] am Time out: 11:45 am Subjective Donnie Richardson Elder 68 y.o. female [...] and ankles grossly 4+ to 5/5 MMT Ekn hip flex= 4+/5, abd=4-/5, ext=4-/5 MMT Balance: [...] Continue progression as tolerated. Cosigned by Alexandria Ray PT at 03/28/2024 5:37 PM EST documented in this encounterSaint Louis University Health Science CenterQzrxvuobqq69-71-3205 History of Present illness Narrative* Alexandria Ray PT - 03/22/2024 1:00 PM EST Images [...] Continue progression as tolerated. documented in this encounterSaint Louis University Health Science CenterYrxijrxxar14-40-1643 History of Present illness Narrative* Rei Cobos, - 03/20/2024 2:00 PM EST Images from [...] chronic DDD (degenerative disc disease), cervical Dementia ([facility]) Depression ([facility]) May 25 Dyslipidemia ([facility]) DALILA (generalized anxiety disorder) ([facility]) Gastroesophageal reflux disease Impaired fasting glucose Lewy body dementia (CMS/[facility]) Loss of balance Low back pain, non-specific Olecranon bursitis, right elbow Orthostatic hypotension Osteopenia of lumbar spine Parkinson's disease ([facility]) 2023 PSVT (paroxysmal supraventricular tachycardia) ([facility]) Skin cancer Vertigo Past Surgical History: Procedure Laterality Date CARPAL TUNNEL RELEASE Left 06/15/2014 MTP CARPAL TUNNEL RELEASE Right 06/29/2014 MTP DILATION AND CURETTAGE OF UTERUS 2005 EYE SURGERY HYSTERECTOMY 2008 ME REMOVE TONSILS/ADENOIDS,10+ Y/O 1961 Family History Problem [...] reflexes are 2+ and symmetric throughout. Coordination: Wwksai-kz-oorv testing and rapid alternating movements are normal Gait: Normal Review and summary of old records: Patient was seen at [facility] for altered mental status at the end [...] of mental health issues documented in this encounterSaint Louis University Health Science CenterXoibsxglvs70-28-3758 History of Present illness Narrative* Alexandria Ray, PT - 03/16/2024 12:30 PM EDT Images from the original note were not included. Physical Therapy Physical Therapy Evaluation Visit Patient Name: Donnie Bullock Today's Date: 03/16/2024 Encounter Diagnoses Name Primary? Generalized weakness Yes Rapidly progressive dementia (CMS/HCC) Unsteady gait Visit number: 1 Subjective Donnie Bullock 68 y.o. female presents [...] be ind with HEP for maintenance at [place] Pt will benefit from skilled PT to address the above impairments for 2-3x/week for 4-8 weeks pending pt needs/progress I hereby deem this POC medically necessary. Please sign below. Date: documented in this encounterSaint Louis University Health Science CenterPtdnzsrbbw39-31-4073 Telephone encounter Note* Telephone Encounter - Remigio Simpson MD - 03/14/2024 3:13 PM EDT Patient with worsening confusion and concerned of UTI. Please fax lab order to hospital. [facility] CenterHrzxnjawmc12-07-9344 Miscellaneous Notes* Telephone Encounter - Remigio Simpson MD - 03/14/2024 3:13 PM EDT Patient with worsening confusion and concerned of UTI. Please fax lab order to hospital. documented in this [facility]10-24-2024 History of Present illness Narrative* Remigio Simpson MD - 03/09/2024 12:35 PM EDT Patient declining and requests PT. Please write PT order for unsteady gait, generalized weakness, and dementia. documented in this [facility]09-25-2024 History of Present illness Narrative* Georgina Sanford, PT - 02/09/2024 11:30 AM EDT Physical Therapy Physical Therapy Evaluation Patient Name: Donnie Bullock Today's Date: 02/09/2024 Please referred to scanned document from Evaluation on 02/09/24 documented in this [facility]09-18-2024 History of Present illness Narrative* Herson Uribe DPM - 02/02/2024 9:30 AM EDT Images [...] OF UTERUS 2004 EYE SURGERY HYSTERECTOMY 2007 ME REMOVE TONSILS/ADENOIDS,12+ Y/O 1961 Family History Family History Problem Relation Name Age of Onset Cancer Mother Ayla Jonas Arthritis Mother Ayla Jonas Hypertension Father Carlos Jonas Cancer Father Carlos Jonas Heart disease Sibling Arthritis Maternal Grandmother Dayna Cullen Objective General assessment: Alert and oriented. Pleasant [...] understanding. Herson Uribe DPM documented in this encounterSaint Louis University Health Science CenterAczmrxbgmc73-94-3259 Instructions* Patient Instructions* Herson Uribe DPM - 02/02/2024 9:30 AM EDT As noted documented in this encounterSaint Louis University Health Science CenterIxiywtowhj74-92-1851 History of Present illness Narrative* Rei Cobos, DO - 01/25/2024 12:00 PM EDT Images [...] often. He states the behavioral center in [place] told them this condition is physical not [...] disease), cervical Depression (CMS/HCC) May 25 Dyslipidemia ([facility]/HCC) DALILA (generalized anxiety disorder) (CMS/HCC) Gastroesophageal reflux [...] OF UTERUS 2004 EYE SURGERY HYSTERECTOMY 2007 ME REMOVE TONSILS/ADENOIDS,12+ Y/O 1961 Family History Problem Relation Name Age of Onset Cancer Mother Ayla Jonas Arthritis Mother Ayla Jonas Hypertension Father Carlos Jonas Cancer Father Cralos Pritesh Heart disease Sibling Arthritis Maternal Grandmother Dayna Cullen Social History Tobacco Use Smoking status: Never [...] reflexes are 2+ and symmetric throughout. Coordination: Eetalt-qs-rgwr testing and rapid alternating movements are normal [...] of mental health issues documented in this [facility]05-08-2024 Progress note Author Lionel kingsley [facility] September 22, 2023 9:37amNote Date/TimeMay 2023 9:37am[address] [address] Psychiatry Progress Note Signed Patient: Donnie Bullock MR#: [id number] : 1955 Acct:[id number] Age/Sex: 67 / F Adm Date: 4 Loc: Room: [address] [place] [address] Type : ADM IN Attending Dr: Sridhar [...] signed by Lionel Still MD> 09/22/23 0937 [facility] Work Phone: 1(116) 462-865205-07-2024 Progress note Author Lionel kingsley [facility] September 20, 2023 10:19pmNote Date/TimeMay 2023 10:19pm[place] [address] Psychiatry Progress Note Signed Patient: Donnie Bullock MR#: [id number] : 1955 Acct:[id number] Age/Sex: 67 / F Adm Date: 4 Loc: Room: [address] [place] [address] Type : ADM IN Attending Dr: Sridhar [...] <Electronically signed by Lionel Still MD> 09/20/23 7063 [facility] Work Phone: 1(941) 695-273405-05-2024 Progress note Author Sridhar Hoffman [facility] September 19, 2023 11:52amNote Date/TimeMay 2023 11:51am[place] [address] Psychiatry Progress Note Signed Patient: Donnie Bullock MR#: [id number] : 1955 Acct:[id number] Age/Sex: 67 / F Adm Date: 4 Loc: Room: [address] [place] [address] Type : ADM IN Attending Dr: Sridhar [...] that she is out of school in [place]. Mental Status Exam: Appearance: grossly normal Mental [...] signed by Sridhar Hoffman MD> 09/19/23 1152 [facility] Work Phone: 1(103) 305-256105-04-2024 Progress note Author Sridhar Hoffman [facility] September 18, 2023 10:54amNote Date/TimeMay 2023 10:53amL[place] [address] Psychiatry Progress Note Signed Patient: Donnie Bullock MR#: [id number] : 1955 Acct:[id number] Age/Sex: 67 / F Adm Date: 4 Loc: Room: [address] [place] [address] Type : ADM IN Attending Dr: Sridhar [...] <Electronically signed by Sridhar Hoffman MD> 09/18/23 5698 [facility] Work Phone: 1(953) 702-979105-03-2024 Progress note Author Sridhar Hoffman [facility] September 17, 2023 11:40amNote Date/TimeMay 2023 11:40[place] [address] Psychiatry Progress Note Signed Patient: Donnie Bullock MR#: [id number] : 1955 Acct:[id number] Age/Sex: 67 / F Adm Date: 4 Loc: Room: [address] [place] [address] Type : ADM IN Attending Dr: Sridhar [...] <Electronically signed by Sridhar Hoffman MD> 09/17/23 1148 [facility] Work Phone: 1(632) 774-592705-02-2024 Progress note Author Sridhar Hoffman [facility] September 16, 2023 12:53pmNote Date/TimeMay 2023 12:53pmDiane [place] [id number] Psychiatry Progress Note Signed Patient: Donnie Bullock MR#: [id number] : 1955 Acct:[id number] Age/Sex: 67 / F Adm Date: 4 Loc: Room: [address] [place] [address] Type : ADM IN Attending Dr: Sridhar [...] signed by Sridhar Hoffman MD> 09/16/23 1253 [facility] Work Phone: 1(119) 992-126105-01-2024 History and physical note Author Sridhar Hoffman [facility] September 15, 2023 12:23pmNote Date/TimeMay 2023 12:24pmL[place] [address] Psychiatry H&P Signed Patient: Donnie Bullock MR#: [id number] : 1955 Acct:[id number] Age/Sex: 67 / F Adm Date: 4 Loc: Room: [address] [place] [address] Type: ADM IN Attending Dr: Sridhar Hoffman [...] reported that she thought she saw an Muslim girl while here in the hospital. She [...] homicidality, reported suicidality Insight: fair Judgment: fair [facility] Medical History Osteopenia History of [...] Appearance Clear Urine pH 7.0 Ur Specific [place] 1.004 Urine Protein Negative Urine Glucose (UA) [...] signed by Sridhar Hoffman MD> 09/15/23 1223 [facility] Work Phone: 1(954) 325-996402-14-2024 Telephone encounter Note* Telephone Encounter - Remigio Simpson MD - 06/30/2023 12:26 PM EST Patient with increased confusion and concerned of UTI. Please fax orders to [facility]. [facility] CenterHhbboxccee64-74-1093 Miscellaneous Notes* Telephone Encounter - Remigio Simpson MD - 06/30/2023 12:26 PM EST Patient with increased confusion and concerned of UTI. Please fax orders to [facility]. documented in this encounterSaint Louis University Health Science CenterPljrjjjjgp95-86-2903 Hospital Discharge instructions Additional Instructions Important Contact Information You can call [facility] Inpatient Behavioral Health at [phone] any time day or night if you have emergent questions or question regarding discharge instructions. If at any time you are feeling an increase in your psychiatric symptoms, call your physician or behavioral healthcare provider. If any time you have thoughts of harming yourself or others contact one of the following: Call 98-8 (available 07/12) Crisis Text Line (available 07/12) text 4HOPE to [phone] [facility] Hope Line (available 8 a.m. Midnight) call [phone] ([phone]) [facility] Work Phone: 1(566) 655-378608-25-2023 NoteChief Complaint consultation for change in bowel [...] Tobacco Use:. Household tobacco (more content not included)...[facility] Comment on above:Result Comment: Electronically Signed By: AVNI ROGERS, Amor Rangel\Date and Time Signed: 01/08/23 15:31 [id number] NotePROCEDURE: XR ELBOW RT MIN 3 VIEWS HISTORY: Pain of right elbow joint since falling one year ago COMPARISON: None. FINDINGS: BONES:No fracture, acute abnormality, or significant arthropathy. SOFT TISSUES:No visible soft tissue swelling. EFFUSION:None visible. OTHER: Negative. IMPRESSION: 1. Normal examination. Electronically authenticated by: HERSON REBOLLEDO Date: 2022-03-12 18:14[facility] summary Author Lionel kingsley [facility] September 22, 2023 8:41pmNote Date/TimeMay 2023 8:41pm[place] [address] Discharge Summary Signed Patient: Donnie Bullock MR#: [id number] : 1955 Acct:[id number] Age/Sex: 67 / F Adm Date: 4 Loc: Room: [address] [place] [address]: Sridhar Hoffman MD Copies to: [...] reported that she thought she saw an Muslim girl while here in the hospital. She [...] Important Contact Information You can call [facility]patient [facility] at [phone] any timeday or night if you have emergent questions or question regarding discharge instructions. If at anytime you are feeling an increase inyour psychiatric symptoms, call your physician or behavioral healthcare provider. If any time you have thoughts of harming yourself or others contact one of the following: Call (available 07/12) Crisis Text Line (available 07/12) text 4HOPE to [phone] [facility] Hope Line (available 8 a.m. Midnight) call [phone] ([phone]) Instructions: Dementia (DC), [facility] Behavioral Health DC Instructions, Know [...] Rx Instructions: 8am and 5pm Follow Up: [facility] [Outside] - 09/29/23 12:30 pm (A case mgr will call you on 09/23/23 between 8:00am [...] 19:40 Documented By: Lionel Still MD 4 1005 Signed By: <Electronically signed by Lionel Still MD> 09/22/23 2041 [facility] Work Phone: Evaluation + Plan note No data available for this section General Surgery Tomy Evaluation noteNo assessment information available [facility] Work Phone: Evaluation note* Diagnosis Onset Date Resolution Status Anxiety acuteConfusionacuteDepressionacuteMajor neurocognitive disorderacuteSuicidal ideationacute [facility] Work Phone: Evaluation note* Diagnosis Recurrent UTI- Primary Urinary tract infection, site not specified DALILA (generalized anxiety disorder) (CMS/HCC) Generalized anxiety disorder Neck pain Cervicalgia MDD (major depressive disorder), recurrent episode, mild (HCC) (CMS/HCC) [facility] Diagnosis Dysuria- Primary [facility]* Diagnosis Onset Date Resolution Status Anxiety acuteDepressionacuteMajor neurocognitive disorderacuteSuicidal ideationacute [facility] Work Phone: Evaluation note* Diagnosis DALILA [...] Abnormality of gait documented in this encounter [facility]* Diagnosis Mild neurocognitive disorder- Primary MDD (major depressive disorder), recurrent episode, mild (HCC) (CMS/HCC) Generalized weakness Rapidly progressive dementia (CMS/HCC)- Primary Bilateral primary osteoarthritis of knee Breast cancer screening by mammogram Dizziness Dizziness and giddiness Dysuria- Primary documented in this encounter [facility] note* Diagnosis Mild neurocognitive disorder- Primary MDD (major depressive disorder), recurrent episode, mild (HCC) (CMS/HCC) Generalized weakness Rapidly progressive dementia (CMS/HCC)- Primary Bilateral primary osteoarthritis of knee Breast cancer screening by mammogram Dizziness Dizziness and giddiness Urinary tract infection without hematuria, site unspecified documented in this encounter [facility]* Diagnosis Mild neurocognitive disorder- Primary MDD (major depressive disorder), recurrent episode, mild (HCC) (CMS/HCC) Generalized weakness Rapidly progressive dementia (CMS/HCC)- Primary Bilateral primary osteoarthritis of knee Breast cancer screening by mammogram Dizziness Dizziness and giddiness Generalized weakness- Primary Rapidly progressive dementia (CMS/HCC) Unsteady gait Abnormality of gait documented in this encounter [facility]* Diagnosis Lewy body dementia with behavioral disturbance (HCC)- Primary Dementia with Lewy bodies Other depression 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 Secondary parkinsonism, unspecified secondary Parkinsonism type (HCC) Visual hallucinations Psychophysical visual disturbances [facility] Diagnosis Dermatophytosis of nail- Primary Dystrophic nail Other specified disease of nail Pain around toenail, right foot Pain around toenail, left foot documented in this encounter [facility]* Diagnosis Mild neurocognitive disorder- [...] and physical note Author Sridhar Hoffman [facility] May 26, 2023 12:28pmNote Date/TimeJan2023 12:28pm[place] [address] Psychiatry H&P Signed Patient: Donnie Bullock MR#: [id number] : 1955 Acct:[id number] Age/Sex: 67 / F Adm Date: 4 Loc: Room: [address] [place] [address] Type: ADM IN Attending Dr: Sridhar Hoffman [...] denied current suicidality Insight: fair Judgment: fair [facility] Medical History (Updated 05/26/23 @ [...] signed by Sridhar Hoffman MD> 05/26/23 1228 [facility] Work Phone: Hospital Discharge instructions No data available for this section General Surgery [place] Progress note No data available for this section General Surgery [place] Reason for referral (narrative)* Consultation (Routine) - Pending ReviewSpecialtyDiagnoses / ProceduresReferred By ContactReferred To ContactUrology Diagnoses Recurrent UTI Procedures ME OFFICE/OUTPATIENT NEW HIGH MDM 60 MINUTES Remigio Simpson MD [address] [place] [address] Amor Arcos MD [address] [place] [address] Referral IDStatusReasonStart DateExpiration DateVisits RequestedVisits [id number] Review Specialty Services Required / [facility] HealthcareReason for referral (narrative)No reason for referral information availableRegency Hospital [facility] East Work Phone: Reason for visit Narrative* Rehabilitation - Outpatient (Routine) - AuthorizedSpecialtyDiagnoses / ProceduresReferred By ContactReferred To ContactPhysical Therapy Diagnoses Generalized weakness Rapidly progressive dementia (CMS/HCC) Unsteady gait Procedures ME OFFICE/OUTPATIENT NEW HIGH MDM 60 MINUTES Remigio Simpson MD [address] [place] [address] Phone: tel: fax: Alexandria Ray, PT [address] [place] [address] Phone: tel: fax: Referral IDStatusReasonStart DateExpiration DateVisits RequestedVisits [id number] Consult and Treat /525 [facility] HealthcareReason for visit Narrative* Rehabilitation - Outpatient (Routine) - AuthorizedSpecialtyDiagnoses / ProceduresReferred By ContactReferred To ContactPhysical Therapy Diagnoses Generalized weakness Rapidly progressive dementia (CMS/HCC) Unsteady gait Procedures ME OFFICE/OUTPATIENT NEW HIGH MDM 60 MINUTES Remigio Simpson MD [address] [place] [address] Phone: tel: fax: Alexandria Ray, PT [address] [place] [address] Phone: tel: fax: Referral IDStatusReasonStart DateExpiration DateVisits RequestedVisits [id number] Consult and Treat /525 [facility] Healthcare Summary Purpose Family History Relationship Condition [...] disorder Suicidal ideation Chief Complaint Admit Date June 07, 2024 1 0:28am Unknown July 10, 2024 10:50am Reason for Referral SpecialtyDiagnoses / ProceduresReferred By ContactReferred To Contact Diagnoses DALILA (generalized anxiety disorder) ([facility]) Remigio Simpson MD [address] [place] [address] Referral IDStatusReasonStart DateExpiration DateVisits RequestedVisits [id number] Additional Source Comments INFORMATION SOURCE (unrecogn ized section and content) DATE CREATED AUTHOR 09/17/2022 [facility] DATE CREATED AUTHOR AUTHOR'S ORGANIZ ATION 02/17/2023 [facility] DATE CREATED AUTHOR AUTHOR'S ORGANIZ ATION 05/26/2023 [facility] DATE CREATED AUTHOR AUTHOR'S ORGANIZ ATION 06/02/2024 [facility] DATE CREATED AUTHOR AUTHOR'S ORGANIZ ATION 07/14/2024 [facility] DATE CREATED AUTHOR AUTHOR'S ORGANIZ ATION 01/06/2025 [facility] DATE CREATED AUTHOR AUTHOR'S ORGANIZ ATION 02/07/2025 [facility] EPIC Patient Care team informatio n (unrecognized section and content) Team Status: Active Member Role Status Dates Remigio Simpson MD Primary Care Provider Active Team Status: Inactive Member Role Status Dates Remigio Simpson MD Primary Care Provider Active S tart: September 14, 2023 End: September 21Vickie Garza ProviderActiveStart: September 14, 2023 End: September 21deyemi Dalton , MDAdmit Provider, Attending ProviderActive Start: September 14, 2023 End: September 22, 2023 Team Status: Active Member Role Status Dates Remigio Simpson MD Primary Care Provider Active S tart: September 15, 2023 Good Garcia , DOEmergenrené ProviderActiveStart: September 15, 2023 Sridhar Hoffman , MDAdmit Provider, Attending Provider, Other ProviderActive Start: September 15, 2023 Team Status: Active Member Role Status Dates Robert Caruso , Emergency Provider Active KAREN Lillyrimary Care ProviderActiveAdeyedotty Hoffman , MDAdmit Provider, Attending ProviderActive Team Status: Active Member Role Status Dates Robert Caruso , Emergency Provider Active Sta rt: May 25, 2023 Remigio Simpson , KARENriaudrey Care ProviderActiveStart: May 25, 2023 Sridhar Hoffman , PENGdmit Provider, Other ProviderActiveStart: May 25, 2023 Lionel Still MDAttending ProviderActiveStart: May 25, 2023 Team MemberRelationshipSpecialtyStart DateEnd Date Remigio Simpson MD PCP - [facility] Medicine05/17/22Team MemberRelationshipSpecialtyStart DateEnd Date Remigio Simpson MD PCP - [facility] Medicine05/17/22Team MemberRelationshipSpecialtyStart DateEnd Date Remigio Simpson MD PCP - [facility] Medicine05/17/22 Team Status: Active Member Role Status Dates Remigio Simpson MD Primary Care Provider Active S tart: September 14, 2023 Good Garcia , Cierrargenrené ProviderActiveStart: September 14, 2023 Sridhar Hoffman , MDAdmit Provider, Attending ProviderActiveStart: September 14, 2023 Team MemberRelationshipSpecialtyStart DateEnd Date Remigio Simpson MD [address] [place] [address] PCP - GeneralFamily Medicine07/19/23Team MemberRelationshipSpecialtyStart DateEnd Date Remigio Simpson MD [address] [place] [address] PCP - GeneralFamily Medicine07/19/23Team MemberRelationshipSpecialtyStart DateEnd Date Remigio Simpson MD [address] [place] [address] PCP - GeneralFamily Medicine07/19/23Team MemberRelationshipSpecialtyStart DateEnd Date Remigio Simpson MD [address] [place] [address] PCP - GeneralFamily Medicine07/19/23Team MemberRelationshipSpecialtyStart DateEnd Date Remigio Simpson MD [address] [place] [address] PCP - GeneralFamily Medicine07/19/23Team MemberRelationshipSpecialtyStart DateEnd Date Remigio Simpson MD [address] [place] [address] PCP - GeneralFamily Medicine07/19/23 Rei Cobos DO [address] [place] [address] Referring ZzzdrhzgjPbcjauoef75/1/24Team MemberRelationshipSpecialtyStart DateEnd Date Remigio Simpson MD [address] [place] [address] PCP - GeneralFamily Medicine07/19/23 Rei Cobos DO [address] [place], [place] [id number] Referring BcymtqswsFeuyvzsxe08/1/24Team MemberRelationshipSpecialtyStart DateEnd Date Remigio Simpson MD [address] [place] [address] PCP - GeneralFamily Medicine07/19/23 Rei Cobos DO [address] [place] [address] Referring McekozqcvCwgocssqm84/1/24Team MemberRelationshipSpecialtyStart DateEnd Date Remigio Simpson MD [address] [place] [address] PCP - GeneralFamily Medicine07/19/23 Rei Cobos DO [address] [place], [place] [id number] Referring AzjadewsbNoihmadhs58/1/24Team MemberRelationshipSpecialtyStart DateEnd Date Remigio Simpson MD [address] [place] [address] PCP - GeneralFamily Medicine07/19/23 Rei Cobos DO [address] [place] [address] Referring VqmfrzhprZxouctdlm69/1/24Team MemberRelationshipSpecialtyStart DateEnd Date Remigio Simpson MD [address] [place] [address] PCP - GeneralFamily Medicine07/19/23 Rei Cobos DO [address] [place] [address] Referring QavvfudglQpjgocuha94/1/24Team MemberRelationshipSpecialtyStart DateEnd Date Remigio Simpson MD [address] [place] [address] [facility] - [facility]/23 Rei Cobos DO [address] [place] [address] Referring LqffpspnnUqfobwnnx02/1/24Team MemberRelationshipSpecialtyStart DateEnd Date Remigio Simpson MD [address] [place] [address] [facility] - [facility] Rei Cobos DO [address] [place] [address] Referring LxiecbbrbCflihcqfk25/1/24Team MemberRelationshipSpecialtyStart DateEnd Date Remigio Simpson MD [address] [place] [address] PCP - GeneralFamily Medicine07/19/23 Rei Cobos DO [address] [place] [address] Referring SowxykwhpYrhpdhkzw23/1/24Team MemberRelationshipSpecialtyStart DateEnd Date Remigio Simpson MD [address] [place] [address] PCP - GeneralFamily Medicine07/19/23 Rei Cobos DO [address] [place], [place] [address] Referring RrcynpfasZzfcgqnni76/1/24Team MemberRelationshipSpecialtyStart DateEnd Date Remigio Simpson MD [address] [place] [address] PCP - GeneralFamily Medicine07/19/23 Rei Cobos DO [address] [place] [phone] Referring RkzcknhemKaurdvkne61/1/24Team MemberRelationshipSpecialtyStart DateEnd Date Remigio Simpson MD [address] [place] [address] PCP - GeneralFamily Medicine07/19/23 Rei Cobos DO [address] [place] [phone] Referring DxfeanqbpCdrnyovyw70/1/24Team MemberRelationshipSpecialtyStart DateEnd Date Remigio Simpson MD [address] [place] [address] PCP - GeneralFamily Medicine07/19/23 Rei Cobos DO [address] [address] Referring TwphgllxjMnsfxubla32/1/24Team MemberRelationshipSpecialtyStart DateEnd Date Remigio Simpson MD [address] [place] [address] PCP - GeneralFamily Medicine07/19/23Team MemberRelationshipSpecialtyStart DateEnd Date Remigio Simpson MD [address] [place] [address] PCP - GeneralFamily Medicine07/19/23Team MemberRelationshipSpecialtyStart DateEnd Date Remigio Simpson MD [address] [place] [address] PCP - GeneralFamily Medicine07/19/23 Rei Cobos DO [address] [place] [address] Referring RvlitpfewLzlsbyqog45/1/24Team MemberRelationshipSpecialtyStart DateEnd Date Remigio Simpson MD [address] [place] [address] PCP - GeneralFamily Medicine07/19/23Team MemberRelationshipSpecialtyStart DateEnd Date Remigio Simpson MD [address] [place] [address] PCP - GeneralFamily Medicine07/19/23 Rei Cobos DO [address] [place] [address] Referring JzeazsumkPmgxfvasv92/1/24Team MemberRelationshipSpecialtyStart DateEnd Date Remigio Simpson MD [address] [place] [address] PCP - GeneralFamily Medicine07/19/23 Remigio Simpson MD [address] [place] [address] PCP - [facility]06/23/24 Rei Cobos DO [address] [place] [address] Referring CeeqtrsniVvfsvpcez11/1/24Team MemberRelationshipSpecialtyStart DateEnd Date Remigio Simpson MD [address] [place] [address] PCP - GeneralFamily Medicine07/19/23 Remigio Simpson MD [address] [place] [address] PCP - [facility]06/23/24 Rei Cobos DO [address] [place] [address] Referring QushokbeeSnkzuhzcn46/1/24Team MemberRelationshipSpecialtyStart DateEnd Date Remigio Simpson MD [address] [place] [address] PCP - [facility]07/19/23 Remigio Simpson MD [address] [place] [address] PCP - [facility]06/23/24 Rei Cobos DO [address] [place] [id number] Referring EbczotvxbDhzsyysbo89/1/24 Team Status: Active Member Role Status Dates Remigio Simpson MD Primary Care Provider Active S tart: June 07, 2024 Lionel Still MDAttmelchor ProviderActiveStart: June 07, 2024 Team Status: Active Member Role Status Dates Remigio Simpson MD Primary Care Provider Active S tart: June 07, 2024 Emmanuel Solo DOAttending ProviderActiveStart: June 07, 2024 Team Status: Inactive Member Role Status Dates Remigio Simpson MD Attending Provider Active Star t: July 10, 2024 End: July 10, 2024Team MemberRelationshipSpecialtyStart DateEnd Date Remigio Simpson MD [address] [place] [address] PCP - [facility]07/19/23 Remigio Simpson MD [address] [place] [address] PCP - [facility]06/23/24 Rei Cobos DO [address] [place], [place] [address] Referring PxswasjapXlszalezf33/1/24Team MemberRelationshipSpecialtyStart DateEnd Date Remigio Simpson MD [address] [place] [address] PCP - GeneralFamily Medicine07/19/23 Remigio Simpson MD [address] [place] [address] PCP - [facility]06/23/24 Rei Cobos DO [address] [place] [address] Referring GhsjrbbcdPtookzslu12/1/24Team MemberRelationshipSpecialtyStart DateEnd Date Remigio Simpson MD [address] [place] [address] PCP - GeneralFamily Medicine07/19/23 Remigio Simpson MD [address] [place] [address] PCP - [facility]06/23/24 Rei Cobos DO [address] [place] [address] Referring QmeafgpajDplndorjh81/1/24Team MemberRelationshipSpecialtyStart DateEnd Date Remigio Simpson MD [address] [place] [address] PCP - GeneralFamily Medicine07/19/23 Remigio Simpson MD [address] [place] [address] PCP - [facility]06/23/24 Rei Cobos DO [address] [place] [address], [place] [address] Referring HndfdutntXtmueucgn14/1/24Team MemberRelationshipSpecialtyStart DateEnd Date Remigio Simpson MD [address] [place] [address] PCP - GeneralFamily Medicine07/19/23 Remigio Simpson MD [address] [place] [address] PCP - [facility]06/23/24 Rei Cobos DO [address] [place] [address], [place] [address] Referring XdlftsdbhFdksikrkn58/1/24Team MemberRelationshipSpecialtyStart DateEnd Date Remigio Simpson MD [address] [place] [address] PCP - GeneralFamily Medicine07/19/23 Remigio Simpson MD [address] [place] [address] PCP - [facility]06/23/24 Rei Cobos DO [address] [place] [address], [place] [address] Referring MavdniokiAtxcwjabf16/1/24Team MemberRelationshipSpecialtyStart DateEnd Date Remigio Simpson MD [address] [place] [address] [facility] Remigio Simpson MD [address] [place] [address] PCP - [facility]06/23/24 Rei Cobos DO [address] [place] [id number] Referring FxpjjmgwvIvgrplxap85/1/24 Team Status: Inactive Member Role Status Dates Remigio Simpson MD Primary Care Provider Active S tart: January 18, 2025 End: January 18, 2025Marc PENG Simpsonttending ProviderActiveStart: January 18, 2025 End: January 18, 2025Team MemberRelationshipSpecialtyStart DateEnd Date Remigio Simpson MD [address] [place] [address] [facility] Remigio Simpson MD [address] [place] [address] PCP - [facility]06/23/24 Rei Cobos DO [address] [place], [place] [address] Referring OltpzrpaeLnhgbuwge77/1/24Team MemberRelationshipSpecialtyStart DateEnd Date Remigio Simpson MD [address] [place] [address] PCP - [facility] Medicine07/19/23 Remigio Simpson MD [address] [place] [address] PCP - [facility]06/23/24 Rei Cobos DO [address] [place], [place] [address] Referring YjnukdzazVqwbpdjek92/1/24Team MemberRelationshipSpecialtyStart DateEnd Date Remigio Simpson MD [address] [place] [address] PCP - [facility]07/19/23 Remigio Simpson MD [address] [place] [address] PCP - [facility] Reach06/23/24 Rei Cobos DO [address] [place], [place] [address] Referring QwkuoerilUknurtczp60/1/24 Goals (unrecognized section and content) Goals may be documented in a n alternate section Source Comments (unrecognize d section and content) In the event this informatio n is protected by the Federal Confidentiality of Alcohol and Drug Abuse Patient Records regulations: The Federal rules restrict any use of the information to criminally investigate or prosecute any alcohol or drug abuse patient.[facility] CampusIn the event this information is protected by the Federal Confidentiality of Alcohol and Drug Abuse Patient Records regulations: The Federal rules restrict any use of the information to criminally investigate or prosecute any alcohol or drug abuse patient.[facility] CampusIn the event this information is protected by the Federal Confidentiality of Alcohol and Drug Abuse Patient Records regulations: The Federal rules restrict any use of the information to criminally investigate or prosecute any alcohol or drug abuse patient.[facility] CampusIn the event this information is protected by the Federal Confidentiality of Alcohol and Drug Abuse Patient Records regulations: The Federal rules restrict any use of the information to criminally investigate or prosecute any alcohol or drug abuse patient.[facility] CampusIn the event this information is protected by the Federal Confidentiality of Alcohol and Drug Abuse Patient Records regulations: The Federal rules restrict any use of the information to criminally investigate or prosecute any alcohol or drug abuse patient.[facility] CampusIn the event this information is protected by the Federal Confidentiality of Alcohol and Drug Abuse Patient Records regulations: The Federal rules restrict any use of the information to criminally investigate or prosecute any alcohol or drug abuse patient.[facility] CampusIn the event this information is protected by the Federal Confidentiality of Alcohol and Drug Abuse Patient Records regulations: The Federal rules restrict any use of the information to criminally investigate or prosecute any alcohol or drug abuse patient.[facility] CampusIn the event this information is protected by the Federal Confidentiality of Alcohol and Drug Abuse Patient Records regulations: The Federal rules restrict any use of the information to criminally investigate or prosecute any alcohol or drug abuse patient.[facility] CampusIn the event this information is protected by the Federal Confidentiality of Alcohol and Drug Abuse Patient Records regulations: The Federal rules restrict any use of the information to criminally investigate or prosecute any alcohol or drug abuse patient.[facility] Reason for Visit (unrecogniz ed section and content) ReasonCommentsNew Patient EvaluationReasonCommentsNail careMarcia Chun Elder is a 67 y.o. female who presents for Nail care.ReasonCommentsMedication Follow-up ReasonCommentsFungusPt is here today with her spouse for 3mo FUV nail fungus, they will sometimes bother her when shoesare onSS:9ReasonCommentsPatient QuestionPatient UpdateSpouse requesting to speak with nurseReasonCommentsCalled BackPatient QuestionSpouse requesting a return phone callReasonCommentsRefill RequestReasonOnset DateCommentsMed Iwkkdy6608/14/2024ReasonOnset DateCommentsMed Ymaxfu4308/22/2024ReasonCommentsFollow-upEr f/upFell out of bedReasonComments Toenail CareEstablished patient [...] THE PRIMARY CLINICAL RECORDS. [facility] [employer] provides no warranty or guarantee of the accuracy or completeness of information in this document.
[2025-03-17 10:22] LABS: Glucose Urine UA NEGATIVE (NEGATIVE)
== END 2025-03-17 10:12 | disposition home or self-care (01) ==
LOC: LAB 10:11
PROVIDERS: PCP Family Medicine; Visit Provider Family Medicine
DX: R30.0 Dysuria (principal)
CPT/HCPCS: 81003; 87086

== ENCOUNTER 2025-04-26 11:43 | Outpatient (REF) | payer MEDICARE, OTHER, SELFPAY ==
--- OUTSIDE RECORDS SUMMARY | 2025-04-26 11:50 | XMS_ITS | CCD ---
Author Organization [facility] Care Team Providers Care Channel Business Manager Name Role Phone CALVIN, DR REMIGIO Richardson [...] Provider MD Remigio Simpson Primary Care Provider [phone] MD Sridhar Hoffman Admit Provider MD Sridhar Hoffman Attending Provider Remigio Simpson MD Primary Care Provider MD Remigio Simpson Primary Care Provider [phone] DO Good Garcia Emergency Provider MD Dalton Sridhar Admit Provider [phone] MD Dalton Sridhar Attending Provider [phone] Remigio Simpson MD Primary Care Provider Chandrika MOORE Christopher Unavailable Unavailable Primary Care Provider Unavailabl e SERA KILLIAN Attending Unavailable Remigio Simpson MD Unavailable Remigio Simpson MD Primary Care Provider Lionel Still MD Attending Provider Remigio Simpson MD Attending Provider Chandrika MOORE, Jasoner Unavailable Chandrika MOORE Christfaustinoer Unavailable Remigio Simpson MD Primary Care Provider Remigio Simpson MD Attending Provider Remigio Simpson MD Primary Care Provider [phone] Remigio Simpson MD Unavailable REI COBOS Attending Unavailable RUSHER, HERSON Richardson Attending Unavailable NADERER, REMIGIO Attending Unavailable NADERER, REMIGIO Attending Unavailable RUSHER, HERSON Richardson Attending Unavailable RUSHER, HERSON Richardson Attending Unavailable FLORALEXANDRIA BHATT Attending Unavailable NADERER, REMIGIO Referring Unavailable MILLER, DENEEN Attending Unavailable NADERER, REMIGIO Referring Unavailable CHANDRIKAREI Attending Unavailable FLORALEXANDRIA BHATT Attending Unavailable NADERER, [...] Referring Unavailable RUSHER, HERSON Richardson Attending Unavailable DENEEN MILLER Attending Unavailable REMIGIO SIMPSON Referring Unavailable REI COBOS Attending Unavailable Remigio Simpsno MD Primary Care Provider Rei Cobos DO Unavailable [phone] Remigio Simpson MD Unavailable Remigio Simpson Admitting Unavailable Calvin, Remigio Attending Unavailable Remigio Simpson Admitting Unavailable Remigio Simpson Attending Unavailable Lionel Still Attending Unavailab Remigio Douglas Primary Care Unavailable Lionel Still Admitting Unavailab le ZAMZAM, BRIANDA Referring Unavailable CARYN GASPAR Referring Unavailable KONONOIRMA Azevedo Admitting Unavailable KONONOIRMA Azevedo Attending Unavailable SELF, SELF Referring Unavailable RICHARD CLAYTON Attending Unavailable JADA AGUILLON Attending Unavailable RAIS, JADA Attending Unavailable RAIS, JADA Attending Unavailable Allergies Allergy ClassificationReported Allergen(s)Allergy TypeDate of OnsetReaction(s) Facility (20 sources)Alprazolam; Translations: [ALPRAZOLAM]Propensity to adverse nycxtfepq30-99-6484Elikfhhkvljklc, UnknownNOM[facility] Medications Current Medications MedicationDrug Class(es)DatesSig (Normalized)Sig (Original)atorvastatin 10 mg oral tablet (16 sources)HMG-CoA Reductase InhibitorStart: 08-07-2024 End: 32-65-2003invu 1 tablet by mouth once dailybusPIRone hydrochloride 7.5 mg oral tablet (2 sources)Start: 69-70-7796xxzu 1 tablet by mouth twice dailycefdinir 300 mg oral capsule (5 sources)Cephalosporin AntibacterialStart: 04-12-2024 End: 55-58-3434nexg 1 capsule by mouth in the morningcefdinir (Omnicef) 300 MG capsule Indications: Urinary tract infection without hematuria, site unspecified Take 1 capsule (300 mg) by mouth in the morning and 1 capsule (300 mg) before bedtime. Do all this for 10 days. 20 capsule 04/12/2024 04/22/2024 Active diazePAM 5 mg oral tablet (20 sources)BenzodiazepineStart: 32-84-8563juuq 1 tablet by mouth three times daily as needed for anxietyStart: 01-18-2025 End: 81-47-1704iatn 1 tablet by mouth four times daily as neededDiazepam 5 mg tablet Discontinued 5 MG PO Four times daily as needed January 18, 2025 12:00am January 18, 2025 11:51amStart: 01-18-2025 End: 06-56-2840rzic 1 tablet by mouth once daily as neededDiazepam 5 mg tablet Discontinued 5 MG PO Daily as needed January 18, 2025 12:00am January 18, 2025 11:50amStart: 09-29-2024 End: 83-20-4656gsfw 1 tablet by mouth four times daily as needed for anxiety diazePAM (Valium) 5 MG tablet Indications: DALILA (generalized anxiety disorder) TAKE 1 TABLET BY MOUTH FOUR TIMES A DAY NEEDED FOR ANXIETY FOR 10 DAYS 40 tablet 01/02/2025 ActiveStart: 09-13-2024 End: 55-17-2967niyd 1 tablet by mouth four times daily as needed for anxiety diazePAM (Valium) 2 MG tablet Indications: DALILA (generalized anxiety disorder) (CMS/HCC) Take 1 tablet (2 mg) by mouth 4 (four) times a day as needed for anxiety for up to 10 days 40 tablet / Discontinued (Reorder) Start: 02-17-2024 End: 30-88-3232ivan 1 tablet by mouth four times daily as needed for anxiety diazePAM (Valium) 2 MG tablet Indications: DALILA (generalized anxiety disorder) (CMS/HCC) Take 1 tablet (2 mg) by mouth 4 (four) times a day as needed for anxiety for up to 10 days 40 tablet 02/17/2024ctivedocusate sodium 50 mg / sennosides, [facility] 8.6 mg oral tablet (20 sources)Start: 09-20-2024 End: 03-91-8873bzzl 2 tablets by mouth in the morningsenna-docusate sodium (Senokot-S) 8.6-50 MG tablet Indications: Constipation, unspecified constipation type Take 2 tablets by mouth in the morning and 2 tablets before bedtime. 360 tablet 3 09/20/2024 09/20/2025 ActiveStart: 87-23-2177utqc 2 tablets by mouth in the morningsenna-docusate sodium (Senokot-S) 8.6-50 MG tablet Indications: Constipation, unspecified constipation type Take 2 tablets by mouth in the morning and 2 tablets before bedtime. 60 tablet 5 08/22/2024tive End: 76-09-2172evrp 1 tablet by mouth once dailysenna-docusate sodium (Senokot- S) 8.6-50 MG tablet Take 1 tablet by mouth Daily 08/22/2024 Discontinued (Reorder)take 1 tablet by mouth three times dailySENEXON-S 8.6-50 mg per tablet Take 1 tablet by mouth three times a day. Activedonepezil hydrochloride 5 mg oral tablet (11 sources)Start: 05-22-2024 End: 81-83-2801gdsb 1 tablet by mouth once daily after breakfastdonepezil (ARICEPT) 5 mg tablet TAKE 1 TABLET BY MOUTH DAILY AFTER BREAKFAST. 90 tablet 1 07/27/2024 Activeescitalopram 5 mg oral tablet (2 sources)Serotonin Reuptake InhibitorStart: 98-45-7621wpvr 1 tablet by mouth once dailyhaloperidol 1 mg oral tablet (20 sources)Typical AntipsychoticStart: 01-11-2024 End: 22-07-2075jwjykottxav (Haldol) 1 MG tablet Indications: Rapidly progressive dementia (CMS/HCC) TAKE 1/2 TABLET (0.5MG) IN THE MORNING AND TAKE 1 TABLET (1MG) AT SUPPER 30 tablet 1 01/11/2024 05/29/2024 Discontinued (Side effects) Start: 09-22-2023 End: 60-93-3241nzdp 1 tablet by mouth once dailyHaloperidol 0.5 mg Tablet Discontinued 0.5 MG PO Daily 15 15 September 22, 2023 12:00am January 10:59amStart: 09-22-2023 End: 23-61-1937owku 1 tablet by mouth at bedtimeHaloperidol 1 mg Tablet Discontinued 1 MG PO Bedtime September 30, 2023 12:00am January 18, 2025 10:59am Start: 09-14-2023 End: 39-75-0343Fuqdgjxlqqs 1 mg tablet Discontinued 0.5 MG PO every 4 to 5 hours as needed for anxiety August 12:00am January 18, 2025 11:00amStart: 26-97-7522Ansayzisbom Active 0.5 MG PO every 4 to 5 hours September 14, 2023 12:00amStart: 09-14-2023 End: 14-02-1899ijdq 1 tablet by mouth twice dailyHaloperidol 0.5 mg tablet Discontinued 0.5 MG PO Twice daily September 14, 2023 12:00am September 210:00am 8am and 5pmhaloperidol (HALDOL) 1 mg tablet Take 1 mg by mouth two times a day. September take 0.5mg at 6pm. PRN: 1mg every 4.5 hours ActivehydrOXYzine hydrochloride 25 mg oral tablet (20 sources)AntihistamineStart: 02-14-2024 End: 96-88-7667phml 1 tablet by mouth four times daily as needed for anxiety hydrOXYzine HCl (Atarax) 25 MG tablet Indications: DALILA (generalized anxiety disorder) (CMS/HCC) TAKE 1 TABLET (25 MG) BY MOUTH 4 (FOUR) TIMES A DAY NEEDED FOR ANXIETY 360 tablet 2 02/14/2024 05/29/2024 Discontinued (Side effects)Start: 09-14-2023 End: 89-87-6094hvgu 1 tablet by mouth twice dailyHydroxyzine Hcl 25 mg tablet Discontinued 25 MG PO Twice daily September 14, 2023 12:00am January 18, 2025 11:00am 11am and 6pmStart: 56-22-6794reuu 1 tablet by mouth four times daily as needed for anxietyhydrOXYzine HCl (Atarax) 25 MG tablet Indications: DALILA (generalized anxiety disorder) (CMS/HCC) TAKE 1 TABLET (25 MG) BY MOUTH 4 (FOUR) TIMES A DAY NEEDED FOR ANXIETY 360 tablet 2 05/25/2023 Activelactulose 667 mg/ml oral solution (20 sources)Osmotic LaxativeStart: 04-17-2024 End: 70-14-8145lwcm 10 g by mouth at bedtimelactulose (Chronulac) 10 GM/15ML solution Indications: Constipation, chronic Take 15 mL (10 g) by mouth in the morning and 15 mL (10 g) before bedtime. 900 mL 11 04/17/2024 04/17/2025 Active Start: 70-40-1745vcgd 10 g by mouth at bedtimelactulose (Chronulac) 10 GM/15ML solution Take 10 g by mouth at bedtime 12/16/2023 ActiveStart: 09-15-2023 End: 81-17-3002hoiw 1 mL by mouth twice dailyLactulose 10 gram/15 mL solution Discontinued 30 ML PO Twice daily September 15, 2023 12:00am September 30, 2023 7:36am mirtazapine 15 mg oral tablet (20 sources)Start: 33-14-6010wejr 1 tablet by mouth at bedtimemirtazapine (Remeron) 15 MG tablet Indications: MDD (major depressive disorder), recurrent episode,mild (HCC) (CMS/HCC) TAKE 1 TABLET BY MOUTH AT BEDTIME 90 tablet 2 02/28/2024 ActiveStart: 06-08-2023 End: 83-36-5599llgp 1 tablet by mouth once daily at bedtimeMirtazapine 7.5 mg Tablet Discontinued 7.5 MG PO Daily at bedtime 30 30 0 June 08, 2023 1:00am January 18, 2025 11:00amOLANZapine 2.5 mg oral tablet (16 sources)Atypical AntipsychoticStart: 09-20-2024 End: 40-13-1374hkyu 1 tablet by mouth once dailyOLANZapine (ZyPREXA) 2.5 MG tablet 2.5 mg at bedtime Activeondansetron 4 mg disintegrating oral tablet (3 sources)Serotonin-3 Receptor AntagonistStart: 09-29-7065kbgn 1 tablet by mouth every six hours as needed for nausea and vomiting and nausea and nausea ondansetron ODT (Zofran-ODT) 4 MG disintegrating tablet Indications: Nausea Take 1 tablet (4 mg) bymouth every 6 (six) hours if needed for nausea or vomiting 30 tablet 3 06/22/2023 Axovki92 hr rivastigmine 0.192 mg/hr transdermal system (2 sources)Start: 35-74-8109Dkqfaqhsiq (Senna) 8.6 mg capsule (3 sources)Start: 40-26-0544xepa 2 capsules by mouth twice dailySennosides (Senna) 8.6 mg capsule Active 17.2 MG PO Twice daily September 13, 2023 11:00pm Start: 90-66-8864rzho 2 capsules by mouth twice dailySennosides (Senna) 8.6 mg capsule Active 17.2 MG PO Twice daily September 14, 2023 12:00amStart: 09-14-2023 take 1 capsule by mouth twice dailySennosides (Senna) 8.6 mg capsule Active 8.6 MG PO Twice daily September 14, 2023 12:00amsennosides, [facility] 8.6 mg oral tablet (4 sources)Start: 92-92-1071fyzo 2 tablets by mouth twice dailyStart: 09-14-2023 End: 96-98-8058meqk 2 capsules by mouth twice dailySennosides (Senna) 8.6 mg capsule Discontinued 17.2 MG PO Twice daily September 14, 2023 12:00am January 18, 2025 11:00amsertraline 25 mg oral tablet (17 sources)Serotonin Reuptake InhibitorStart: 58-85-3006dveg 1 tablet by mouth twice dailyStart: 09-20-2024 End: 10-22-8456sxqw 1 tablet by mouth once dailySertraline 25 mg tablet Discontinued 25 MG PO Daily January 18, 2025 12:00am February 19, 2025 9:11am take 1 tablet by mouth once dailysertraline (Zoloft) 25 MG tablet Take 25 mg by mouth Daily Activewheat dextrin 3000 mg powder for oral solution (1 source)Start: 79-80-2701Rghygtllu 100% oral powder as needed for constipation, Refill(s) 0 Start Date: 01/08/23 Status: Ordered Completed/Discontinued Medications MedicationDrug Class(es)DatesSig (Normalized)Sig (Original)clonazePAM 0.25 mg disintegrating oral tablet (2 sources)BenzodiazepineStart: 01-18-2025 End: 24-25-6935kboh 1 tablet by mouth once daily as neededClonazepam 0.25 mg tablet,disintegrating Discontinued 0.25 MG PO Daily as needed January 18, 2025 12:00am January 18, 2025 11:50amclotrimazole 10 mg/ml topical cream (5 sources)Azole AntifungalStart: 08-22-2024 End: 78-96-4788jcwimitnahld (Lotrimin) 1 % cream Indications: Candidal skin infection Apply topically 2 (two) times a day 30 g 2 08/22/2024 09/13/2024 Discontinuedmelatonin 10 mg oral capsule (19 sources)Start: 12-07-2023 End: 54-59-4989bgxo 1 capsule by mouth at bedtimeMelatonin 10 MG capsule Indications: Primary insomnia Take 10 mg by mouth at bedtime 30 capsule 5 03/20/2024 Discontinued (Therapy completed)Start: 09-14-2023 End: 19-64-9296vkhb 1 tablet by mouth once daily at bedtimeMelatonin 10 mg tablet extended release Discontinued 10 MG PO Daily at bedtime September 14, 2023 12:00am January 18, 2025 11:00ammeloxicam 7.5 mg oral tablet (11 sources)Nonsteroidal Anti-inflammatory DrugStart: 05-25-2023 End: 45-10-9407dqky 1 tablet by mouth once daily as needed for painMeloxicam 7.5 mg tablet Discontinued 7.5 MG PO Daily as needed for Pain May 25, 2023 1:00am September 14, 2023 10:32pmmorphine sulfate 20 mg/ml oral solution (19 sources)Opioid AgonistStart: 09-14-2023 End: 09-93-4645Rxwohflc Concentrate 100 mg/5 mL (20 mg/mL) solution Discontinued 5 MG PO EVERY 1-2 HOURS as neededfor pain September 14, 2023 12:00am January 18, 2025 11:00amStart: 07-24-2023 End: 27-76-3069grgyaavl 100 MG/5ML concentrated solution every 1 (one) hour if needed 07/24/2023 03/20/2024 Discontinued (Therapy completed)Nystatin (6 sources)Polyene AntifungalStart: 08-14-2024 End: 45-77-3146Etxpazfj powder Indications: Skin candidiasis 1 Application in the morning and at noon 1 each 2 08/14/2024 09/13/2024 DiscontinuedStart: 09-24-1563Uskebbhj powder Indications: Skin candidiasis 1 Application in the morning and at noon 1 each 2 08/14/2024 ActiverisperiDONE 1 mg oral tablet (20 sources)Atypical AntipsychoticStart: 06-08-2023 End: 96-53-7434zepq 1 tablet by mouth at bedtimeRisperidone 0.25 mg Tablet Discontinued 0.25 MG PO Bedtime June 08, 2023 1:00am September 14, 2023 10:33pmStart: 06-08-2023 End: 50-76-0046hdoa 1 tablet by mouth twice dailyRisperidone 1 mg tablet Discontinued 1 MG PO Twice daily 60 30 0 June 08, 2023 1:00am September 14, 2023 10:33pm Problems Active Problems Problem ClassificationProblemDateDocumented DateEpisodic/ChronicAbdominal pain (1 source)Generalized abdominal jrzi96-52-5980MocgdukfGfgkhty disorders (20 sources)Generalized anxiety disorder; Translations: [Anxiety]Onset: 982765-58-5986XlslzvjRxxdfxt dysrhythmias (20 sources)Paroxysmal supraventricular tachycardia; Translations: [Paroxysmal supraventricular tachycardia]Onset: 917309-92-8263HwfasleVlbapzdjqs associated with dizziness or vertigo (20 sources)Dizziness and giddiness; Translations: [Benign paroxysmal positional vertigo]Onset: 581685-28-5627NftpukghElfymnhe, dementia, and amnestic and other cognitive disorders (20 sources)Dementia; Translations: [Unspecified dementia without behavioral disturbance]Onset: 09-07-2023 Resolved: 566859-67-5231XkagytzTsxcjcvy mellitus without complication (5 sources)Impaired fasting glucose; Translations: [Impaired fasting glycemia] Onset: 25-90-3376YwlqyvcnVjkxqnrmt of lipid metabolism (20 sources)Hyperlipidemia, unspecified; Translations: [Dyslipidemia]Onset: 676170-79-2655RsopluhAgopyoloms disorders (1 source)Gastroesophageal reflux lpiwyfd84-95-0535YljebevUqxavwd on above:diet controlledFluid and electrolyte disorders (17 sources)Dehydration; Translations: [Dehydration]Onset: EpisodicGenitourinary symptoms and ill-defined conditions (4 sources)Dysuria; Translations: [Dysuria]73-53-9056AxvxksitJxkakyr and fatigue (20 sources)Other fatigue; Translations: [Asthenia]Onset: EpisodicMiscellaneous mental health disorders (20 sources)Primary insomnia; Translations: [Primary insomnia]Onset: 10-13-2023 88-57-8971RjuhvpaGnhf disorders (20 sources)Depressive disorder; Translations: [Depression]Onset: 06-09-2023 19-08-9340IwqgiyaNigixnz (10 sources)Onychomycosis due to dermatophyte ; Translations: [Tinea unguium] 19-17-2734AovwucajMffxuc and vomiting (17 sources)Nausea and vomiting; Translations: [Nausea with vomiting, unspecified]Onset: 252557-52-5560SlnalvttOappvabquzr deficiencies (20 sources)Moderate protein energy malnutrition; Translations: [Moderate protein-calorie malnutrition]Onset: 151806-96-2638HcytinzPmgdktjjrkvoie (20 sources)Primary gonarthrosis, bilateral; Translations: [Bilateral primary osteoarthritis of knee]Onset: 786132-82-6730TdzxyszQdlnx aftercare (1 source)Other assisted (current) drug therapy; Translations: [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]Onset: 18-76-0894QxlblorpZuqmj bone disease and musculoskeletal deformities (3 sources)Osteopenia; Translations: [Other specified disorders of bone density and structure, unspecified site]03-98-7962IjrldxgzBjqup circulatory disease (20 sources)Orthostatic hypotension; Translations: [Orthostatic hypotension] Onset: 391610-24-4375CfnqruuhSpigo connective tissue disease (20 sources)Bursitis of olecranon of right elbow; Translations: [Olecranon bursitis, right elbow]Onset: 433041-91-4739GqnzqlrhOrkph connective tissue disease (16 sources)Pain in toe; Translations: [Pain in right toe(s)]12-09-5436Gdbeggcn Other gastrointestinal disorders (5 sources)Other constipation; Translations: [OTHER CONSTIPATION]Onset: 08-01-1281NemakxjwVscnz gastrointestinal disorders (2 sources)Altered bowel function; Translations: [Change in bowel habit]Onset: 26-97-0240VlaodxseVqvac gastrointestinal disorders (20 sources)Chronic constipation; Translations: [Other constipation]Onset: 275694-01-1754TpusrfrlIucpc gastrointestinal disorders (1 source)Constipation; Translations: [Constipation, unspecified]08-22-2024 EpisodicOther infections; including parasitic (20 sources)Personal history of other infectious and parasitic diseases; Translations: [Personal history of COVID-19]Onset: 893362-61-7317Luffcmmx Other lower respiratory disease (20 sources)Dyspnea; Translations: [Dyspnea, unspecified]Onset: 09-07-2023 28-09-6220IfktzobsTvbin nervous system disorders (20 sources)Walking disability; Translations: [Difficulty in walking, not elsewhere classified]Onset: 521555-04-0408ZufhznhZiqvr nervous system disorders (20 sources)Secondary parkinsonism; 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, unspecified]Onset: 682285-29-1840DyzmfscTwccd nervous system disorders (20 sources)Impairment of balance; Translations: [Other abnormalities of gait and mobility]Onset: 352280-77-0641GpmeboouNcpua nervous system disorders (20 sources)Abnormal gait; Translations: [Unsteadiness on feet]Onset: 12-24-2023 62-96-0083DxhyubkrOgazx nutritional; endocrine; and metabolic disorders (1 source)Rqkzelxbkq93-83-7670FmtprpfvZbrwg nutritional; endocrine; and metabolic disorders (1 source)Overweight in adulthood with body mass index of 25 or more but less than 7938-61-9900QeggwansHolnm screening for suspected conditions (not mental disorders or infectious disease) (1 source)Stool DNA-based colorectal cancer screening aecviduf20-33-5499Tazcqxhg Other skin disorders (8 sources)Dystrophia unguium; Translations: [Nail dystrophy]41-84-0796Lrtntevb Residual codes; unclassified (10 sources)REM sleep behavior disorder; Translations: [REM sleep behavior disorder]Onset: 455677-76-2013AbqpcqtEkgfplup codes; unclassified (2 sources)REM sleep behavior disorder; Translations: [REM sleep behavior disorder]Onset: 65-31-1845CcxayynZdybpgbu codes; unclassified (1 source)Family history of stroke; Translations: [FAMILY HISTORY OF STROKE] Onset: 81-28-8734RksomyadXscurbvu codes; unclassified (6 sources)Confusional state; Translations: [Disorientation, unspecified] 47-89-4183RyzhxlrxTojlfocj codes; unclassified (1 source)Disorientation, unspecified; Translations: [Unspecified psychosis] 79-83-0377XwenlcnpCuurjfdd codes; unclassified (2 sources)History of vaginal hysterectomy; Translations: [Acquired absence of both cervix and uterus]30-89-1337AftvzugsBjfgruoi codes; unclassified (2 sources)History of adenoidectomy; Translations: [Acquired absence of other organs]79-22-1284UqonyqkdPlblrnfavze; intervertebral disc disorders; other back problems (20 sources)Cervical disc disorder; Translations: [Degeneration of cervical intervertebral disc]Onset: 962043-63-6047XtoffjxKgujjxt and strains (2 sources)Neck sprain; Translations: [Sprain of joints and ligaments of unspecified parts of neck, initial encounter]38-63-5995KsfkqiwrRrjzdsr and intentional self-inflicted injury (12 sources)Suicidal thoughts; Translations: [Suicidal ideations]05-25-2023 EpisodicUnclassified (3 sources)CONTACT W/AND (SUSP) EXPOS COVID-19; Translations: [CONTACT W/AND (SUSP) EXPOS COVID-19]Onset: 80-55-4428Rixhzysibxsa (8 sources)Patient on antidepressant monitoring planOnset: 451798-07-7325 Unclassified (8 sources)Baseline PHQ-9Onset: 182796-55-6333Gxusuhcoxspc (2 sources)Med Management; Translations: [Med Management]Onset: 12-15-2024 Unclassified (1 source)Dementia in other diseases classified elsewhere, moderate, with agitation; Translations: [Dementia in other diseases classified elsewhere, moderate, with agitation]Onset: 97-93-2910Zrmnrsa tract infections (20 sources)Recurrent urinary tract infection; Translations: [Urinary tract infection, site not specified]Onset: 338890-95-8834Decomhhx Past or Other Problems Problem ClassificationProblemDateDocumented DateEpisodic/ChronicBlindness and vision defects (10 sources)Visual hallucinations; Translations: [Visual hallucinations]Onset: 303586-38-6826LraeerqqRnbor aftercare (20 sources)Patient encounter status; Translations: [Other assisted (current) drug therapy]Onset: 785926-16-3342IamkmibcFveuq aftercare (20 sources)Long-term current use of drug therapy; 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]Onset: 900359-91-8487DqtdqbmlRrgcm gastrointestinal disorders (2 sources)Slow transit constipation; Translations: [Slow transit constipation] Onset: 42-06-5968EsxsgijrAndjk hereditary and degenerative nervous system conditions (20 sources)Mild cognitive disorder ; Translations: [Mild cognitive impairment, so stated]Onset: 06-09-2023 Resolved: 850414-58-4487HyhzmqaOyhzm nervous system disorders (20 sources)Carpal tunnel syndrome; Translations: [Carpal tunnel syndrome, unspecified upper limb]Onset: 05-28-2023 Resolved: 672062-55-6946MxlgatjNeygp nervous system disorders (20 sources)Metabolic encephalopathy; Translations: [Metabolic encephalopathy] Onset: 07-24-2023 Resolved: 543773-88-6141ZxcgecmHglab non-traumatic joint disorders (4 sources)Pain in right elbow; Translations: [PAIN IN RIGHT ELBOW]Onset: 48-65-8704OfhuwuctKlmnqxob codes; unclassified (20 sources)Family history of stroke; Translations: [Family history of stroke] Onset: 358936-56-8678QnhjloxyVggivrzf codes; unclassified (2 sources)Hallucinations, unspecified; Translations: [Hallucinations, unspecified]Onset: 85-48-1027JnjjhkyrSrzvcxuu codes; unclassified (2 sources)Pain, unspecified; Translations: [Pain, unspecified]Onset: 06-09-2024 EpisodicSpondylosis; intervertebral disc disorders; other back problems (20 sources)Neck pain; Translations: [Cervicalgia]Onset: 12-31-2022 Resolved: 389423-40-9941YqyjjzglWajzfzytjxao (1 source)CONTACT W/AND (SUSP) EXPOS COVID-19; Translations: [CONTACT W/AND (SUSP) EXPOS COVID-19]Onset: 21-70-7299Sqetdwxapemz (1 source)Entire carpal canal (body structure)67-05-1234Hanlpmh on above:had left doneUnclassified (1 source)Dementia in other diseases classified elsewhere, moderate, with agitation; Translations: [Dementia in other diseases classified elsewhere, moderate, with agitation]Onset: 11-10-2024 Results Test NameValueInterpretationReference MiodiBqiuyldf02iv 25-80-477300Ih was recently started on the clonazepam and she is having hallucinations , delusions crying all the time, anxious, can't sit still. Please advis[facility]on 81-50-803653Jcipkxpvmp recommendations as follows: Continue Lexapro 5 mg daily Continue rivastigmine patch Continue Buspar 7.5 mg twice per day Re-start Klonopin 0.25 mg at bedtime Discontinue Valium due to fall risk Discontinue olanzapine due to fall risk Follow up appointment in 12 weeks or sooner if needed. Risks, benefits and alternatives to treatment were discussed with the patient/guardian, who voiced understanding and agreement with the treatment plan. Updating all prescribers with current medication list is essential, including prescribed and over the counter medications as all medications may have interactions and side effects. Follow up regularly with primary care provider for well visits and any physical health concerns including issues with physical pain. Follow up as required with medical specialists for management of chronic health conditions. Abstinence from alcohol and drugs is important.These substances may significant negative effects on cognitive and emotional functioning, and there are interactions between these substances and prescribed medications. Any medications taken during can have adverse effects on , development, & of a child. Treatment with psychotropic medications requires regular monitoring and follow up to ensure safety and effectiveness. It is important to attend regularly scheduled appointments and to keep in contact with providers as needed between scheduled follow up appointments (patient portal or [phone]). There is a residential sales representative stationary boiler fireman outside of normal business hours through the [facility] hospital lathe scalper operator ([phone]). Use 911, Crisis Care Crisis CARE Services ([phone]-EUUU), your local [facility] crisis hotline, national suicide prevention lifeline 040 or the nearest emergency room in the event of a crisis. Clinic Rules Clinic rules include the no-show policy: Missing 2 appointments in a row or 3 appointments in any 12 month period (through either no-shows or cancellations with less than 24 hours notice) can result in termination from the clinic. Patient expressed understanding. Patient was given my information and informed of my hours, 8:30am - 4:30pm M-F, with expectation that I should respond to messages within 24 business hours. Patient expressed understanding. Patient made aware that in case of emergency - such as experiencing thoughts of of self or others, hallucinations, or serious medication side effects - patient should call 911 or go to the closest emergency department. Patient expressed understanding. Patient was also made aware of 24 hour access to psychiatric care available through [facility] Psychiatry clinic. - For non-emergencies during regular office hours (8:30am - 4:30pm M-F), instructed to call [phone] to leave a message with the physician. - For emergencies or after hours, instructed to call the hospital lathe scalper operator at [phone] and ask to talk to on-call residential sales representative physician.Normal [facility] HospitalLaboratory - Chemistry and Chemistry - challengeOrdered By: Remigio Simpson on 37-70-1000Yztlmsmnl Ql (U)NegativeFirelands Regional Medical Center South CampusGlucose (U) [Mass/Vol]NegativeNEGKettering Health MiamisburgKetones Ql (U)NegativeNEGKettering Health MiamisburgpH (U)5.0 [pH]5.0-9.0[facility] Hospitalpecific gravity (U) [Rel density]1.0201.005-1.025Mer[facility] Health Defiance HospitalUrobilinogen Qn (U)0.2 {Tim'U}/dL0.2-1.0[facility] HospitalLaboratory - Specimen informationOrdered By: Remigio Simpson on 92-48-3827Lvencemjoh (U)CLEAR CLEARMercy Health Defiance HospitalColor (U)LT. YELLOWYELLOWMercy Health Defiance HospitalLaboratory - UrinalysisOrdered By: Remigio Simpson on 17-68-8948Dwbwzuhxa esterase Test strip Ql (U)NegativeNEGKettering Health MiamisburgNitrite Ql (U)NegativeNEGATIVEMercy Health Defiance Hospital Protein Ql (U)NegativeNEG/TRACEMercy Health Defiance HospitalNo Panel InformationOrdered By: Remigio Simpson on 01-40-1182Niqln Occult BloodTRACE-I NEGATIVEMercy Health Defiance HospitalUrine Cultureon 03-03-5092Wxjrgged identified Cx Nom (U)15,000 colonies/ml mixed bacterial skin contaminants 2 Days PERFORMED BY: [facility] [address] [place] [address] LAB TECHNICIAN JAGUAR JOHNSON M.D.NormalHca Florida Largo West Hospital Physician GroupComment on above: Performed By: #### CUU #### [facility] [address] [place] [address] USARefillon [id number] Donnie Bullock 1955 F Date Provider Department Center 01/04/2025 [facility] Ramone Heal No family history on file Reason for Visit and Comments: Med Refill [[id number]][facility] HospitalRefillon 12-16-2024 [id number] Donnie Bullock 1955 F Date Provider Department Center 12/16/2024 404-[facility] Ramone Heal No family history on file Reason for Visit and Comments: Med Refill [[id number]][facility] HospitalOffice Visiton 40-91-8501Rmlqez-up [id number] Donnie Bullock 1955 F Date Provider Department Center 12/15/2024 404-[facility] Ramone Heal No family history on file Level of Service:19706 [place] OFFICE/OUTPATIENT ESTABLISHED LOW MDM 20 MIN Reason for Visit and Comments: Med Management [[id number]][facility] HospitalRefillon [id number] Donnie Bullock 1955 F Date Provider Department Center 12/07/2024 [facility] Ramone Heal No family history on file Reason for Visit and Comments: Med Refill [[id number]][facility] HospitalRefillon 12-06-2024 [id number] Donnie Bullock 1955 F Date Provider Department Center 12/06/2024 [facility] Ramone Heal No family history on file Reason for Visit and Comments: Med Change Request [411][facility] [id number] Donnie Bullock 1955 F Date Provider Department Center 12/06/2024 [facility] Ramone Heal No family history on file Reason for Visit and Comments: Med Change Request [411][facility]36on 11-14-2024 36Approving, but needs appt for additional refills.[place] [address]on 79-96-072530Tjezndqdt, but needs appt for additional refills. [facility] HospitalOffice Visiton 44-91-0578Memdpa-up [id number] Donnie Bullock 1955 F Date Provider Department Center 11/10/2024 [facility] Ramone Heal No family history on file Level of Service:46516 [place] PSYCHIATRIC DIAGNOSTIC EVAL W/MEDICAL SERVICES Reason for Visit and Comments: Psychiatric Evaluation [[id number]][facility] HospitalAbstract on [id number] Donnie Bullock 1955 F Date Provider Department Center 11/06/2024 NIKKY HERNANDEZ CCC MICHAEL Comprehensiv No family history on fileNormalUOhioHealth Hardin Memorial Hospital36on 54-41-363737Zzl outpatient provider. Only seen in patientNormalUOhioHealth Hardin Memorial Hospital36Not outpatient provider. Patient only seen inpatient [facility] HospitalRefillon [id number] Donnie Bullock 1955 F Date Provider Department Center 07/27/2024 [facility] Ramone Heal No family history on file Reason for Visit and Comments: Med Change Request [411][facility]36on 07-18-2024 36Not outpatient providerNormalUniversOhioHealth Mansfield HospitalRefillon [id number] KobeDonnie Dylan 1955 F Date Provider Department Center 07/17/202467610-[facility] Ramnoe Heal No family history on file Reason for Visit and Comments: Med Refill [[id number]]NormalUnMcCullough-Hyde Memorial HospitalACETAMINOPHEN LEVEL on 57-74-2716PMGVBTXBOGXFS (UG/ML) IN SER/PLAS<24Sie96-99RyhhknncfmMcCullough-Hyde Memorial HospitalComment on above:Performed By: #### [id number] #### [facility] ([facility]) [address] [place], [place] [address]OYQLJ METABOLIC PANELon 93-17-7375Jenkn gap [Moles/Vol]12 mmol/L Normal7-20UnMcCullough-Hyde Memorial HospitalComment on above:Performed By: #### [id number] #### [facility] ([facility]) [address] [place], [place] [address]Tqhvvvx [Mass/Vol]9.7 mg/dLNormal8.6-10.3UnMcCullough-Hyde Memorial HospitalComment on above:Performed By: #### [id number] #### [facility] ([facility]) [address] [place], [place] [address]Auxchygo [Moles/Vol]106 mmol/XHmdewv60-419CsookjubbjMcCullough-Hyde Memorial HospitalComment on above:Performed By: #### [id number] #### [facility] ([facility] [address] [place], [place] [address]BR7 [Moles/Vol]22 mmol/HRnvqrf94-77CdurwsqueyMcCullough-Hyde Memorial HospitalComment on above:Performed By: #### [id number] #### [facility] ([facility]) [address] [place], [place] [address]Okaftlxoge [Mass/Vol]0.61 mg/dLNormal0.60-1.20UnMcCullough-Hyde Memorial HospitalComment on above:Performed By: #### [id number] #### [facility] ([facility]) [address] [place] [address]ENMNFIFLIQ FILTRATION RATE ML/MIN/1.73 SQ M.BUTJKZAEE92.1 mL/min/1.73m*2Normal>60.0UnMcCullough-Hyde Memorial HospitalComment on above: Result Comment: [facility]???s estimated glomerular filtration rate (eGFR) will [...] group of individuals.Performed By: #### [id number] #### [facility] ([facility]) [address] [place] [address]Ptwzqft [Mass/Vol]103 mg/bSRzpr44-275XiivctxawfMcCullough-Hyde Memorial HospitalComment on above:Performed By: #### [id number] #### [facility] ([facility]) [address] [place] [address]Yvlzsvhrc [Moles/Vol]4.3 mmol/LNormal3.5-5.1UnMcCullough-Hyde Memorial HospitalComment on above:Performed By: #### [id number] #### [facility] ([facility]) [address] [place] [address]Yxdddh [Moles/Vol]136 mmol/YKsbkyu332-547EnhnwlnvgmMcCullough-Hyde Memorial HospitalComment on above:Performed By: #### [id number] #### [facility] ([facility]) [address] [place] [address]Bbca nitrogen [Mass/Vol]16 mg/dLNormal7-25UnMcCullough-Hyde Memorial HospitalComment on above:Performed By: #### [id number] #### [facility] ([facility]) [address] [place] [address]AKBM NITROGEN/CREATININE (MASS RATIO) IN SER/PLAS26.2Normal White HospitalComment on above:Performed By: #### [id number] #### [facility] ([facility]) [address] [facility] [place], [place] [address]CQF WITH AUTO DIFFERENTIALon 23-03-9574Tmjjkblkt (Bld) [#/Vol] 0.03 10*3/uLNormal0.00-0.20UnMcCullough-Hyde Memorial HospitalComment on above: Performed By: #### [id number] #### [facility] ([facility]) [address] [place], [place] [address]Wekdhgicu/100 WBC (Bld)0.5 %Normal0.0-1.0UnMcCullough-Hyde Memorial HospitalComment on above:Performed By: #### [id number] #### [facility] ([facility]) [address] [place], [place] [address]Mepzhmjlnql (Bld) [#/Vol]0.04 10*3/uLNormal0.00-0.50UnMcCullough-Hyde Memorial HospitalComment on above:Performed By: #### [id number] #### [facility] ([facility]) [address] [place], [place] [address]Jqyjwanodqz/100 WBC (Bld)0.7 %Normal0.0-6.0UnMcCullough-Hyde Memorial HospitalComment on above:Performed By: #### [id number] #### [facility] ([facility]) [address] [place], [place] [address]Bxvoakjiesx distribution width (RBC) [Ratio]12.2 %Normal 11.5-15.0UnMcCullough-Hyde Memorial HospitalComment on above:Performed By: #### [id number] #### [facility] ([facility]) [address] [place], [place] [address]ADSUEXRDOHM MEAN CORPUSCULAR HEMOGLOBIN CONCENTRATION (G/DL) BY ARAZYGWJU78.8 g/eYWsdhls84.0-35.0UnMcCullough-Hyde Memorial HospitalComment on above:Performed By: #### [id number] #### [facility] ([facility]) [address] [place], [place] [address]Wvtxilkaam (Bld) [Volume fraction]40.0 %Uzugdj49.0-48.0 White HospitalComment on above:Performed By: #### [id number] #### [facility] ([facility]) [address] [facility] [place], [place] [address]Njfpcdsvyw (Bld) [Mass/Vol]13.5 g/hKFulhpw00.0-15.0UnMcCullough-Hyde Memorial HospitalComment on above:Performed By: #### [id number] #### [facility] ([facility]) [address] [place], [place] [address]Ljyqiolh granulocytes (Bld) [#/Vol]0.02 10*3/uLNormal0.00-0.20 White HospitalComment on above:Performed By: #### [id number] #### [facility] ([facility]) [address] [place], [place] [address]Hoauhnym granulocytes/100 WBC (Bld)0.3 %Normal0.0-1.0UnMcCullough-Hyde Memorial HospitalComment on above:Performed By: #### [id number] #### [facility] ([facility]) [address] [place], [place] [address]Teiaxhmcbbx (Bld) [#/Vol]1.37 10*3/uLNormal1.20-4.00UnMcCullough-Hyde Memorial HospitalComment on above:Performed By: #### [id number] #### [facility] ([facility]) [address] [place], [place] [address]Bczvtclsrce/100 WBC (Bld)23.7 %Gtpuak82.0-45.0UnMcCullough-Hyde Memorial HospitalComment on above:Performed By: #### [id number] #### [facility] ([facility]) [address] [place], [place] [address]KPX (RBC) [Entitic mass]30.3 gfKpidki01.0-33.0UnMcCullough-Hyde Memorial HospitalComment on above:Performed By: #### [id number] #### [facility] ([facility]) [address] [place] [address]HPO (RBC) [Entitic vol]89.7 kJHsnzgy69.0-98.0UnMcCullough-Hyde Memorial HospitalComment on above:Performed By: #### [id number] #### [facility] ([facility]) [address] [place] [place] [address]Srworedst (Bld) [#/Vol]0.40 10*3/uLNormal0.10-1.00UnMcCullough-Hyde Memorial HospitalComment on above:Performed By: #### [id number] #### [facility] ([facility]) [address] [place] [place], [place] [address]Lfejanbpx/100 WBC (Bld)6.9 %Normal5.0-12.0UnMcCullough-Hyde Memorial HospitalComment on above:Performed By: #### [id number] #### [facility] ([facility]) [address] [place] [place], [place] [address]Nrxfgcuuubn (Bld) [#/Vol]3.93 10*3/uLNormal1.60-7.60UnMcCullough-Hyde Memorial HospitalComment on above:Performed By: #### [id number] #### [facility] ([facility]) [address] [place] [place] [address]Kgacianzfrn/100 WBC (Bld)67.9 %Nqihqm38.0-72.0UnMcCullough-Hyde Memorial HospitalComment on above:Performed By: #### [id number] #### [facility] ([facility]) [address] [facility] [place], [place] [address]BJSS (PER 100 WBCS) BY AUTOMATED COUNT0.0 %Xmknme8NzzplhfnzpMcCullough-Hyde Memorial HospitalComment on above:Performed By: #### [id number] #### [facility] ([facility]) [address] [place] [place], [place] [address]RUOSJRGNU (10*3/UL) IN BLOOD AUTOMATED MXSBV541 10*3/uLNormal 150-400UnMcCullough-Hyde Memorial HospitalComment on above:Performed By: #### [id number] #### [facility] (BEAKER) [address] [place] [address]LMU (Bld) [#/Vol]4.46 10*6/uLNormal3.80-5.00UnMcCullough-Hyde Memorial HospitalComment on above:Performed By: #### [id number] #### [facility] ([facility]) [address] [place] [address]TUR (Bld) [#/Vol]5.79 10*3/uLNormal4.00-10.60UnMcCullough-Hyde Memorial HospitalComment on above:Performed By: #### [id number] #### [facility] ([facility]) [address] [place] [address]ZGMWKXcy 64-38-6557OIGQVAFqdiwzg is a 68-year-old female presenting to [facility] ED via private auto along with [...] inpatient psychiatric admissions for the patient: [facility] on 06/09/24 and [facility] in August of 2023, both for dementia [...] sodium 8.6-50mg PO 2QHS Patient uses the [facility] pharmacy in [place], [place] (P: [phone]; F: [phone]). Patient is reportedly compliant with medications as [...] up very early in the morning (around 7014-2649) with difficulty getting back to sleep. Patient's [...] and consented to referrals being sent to [facility] and to [facility] d/t [facility] currently being at capacity. Patient is not placed on a pink slip at this time and has not required any physical or chemical restraints in the ED. 2127 Faxed referrals to [facility] and [facility]. [address] [facility] and spoke with Meredith, notified her of referral and provided information. 2132 Called [facility] and spoke with Radha, notified her of referral. 2136 Updated patient and patient's at bedside on referral status. 2144 Faxed negative COVID test result to [facility] and [facility]. [address] [facility] called with additional questions. All questions answered. Kaylen reported that she will staff this patient with the physician and will call poem writer back with a decision. 2211 (more content not included)...[facility] EDNURSPt to ed with . Per , pt was discharged fro [facility] last Wednesday after spending 26 days there. Wednesday night started to have severe hallucinations, crying uncontrollably, seeing relatives and speaking to them. Was told to return to ED for [facility] evaluation again. Pt alert and oriented x4 in triage, denies SI/HI.[facility] CenterEDPROVon 79-12-5589BKUBQGWxazgex of Present Illness Chief Complaint Patient presents [...] thoughts. History provided by: Spouse and patient Solano Coma Scale Score: 15 History Past Medical [...] 0123 Psychiatric complaint Hallucinations Medical Decision Making Yoly Thakkar, documented on behalf of Dr. Clayton. Reyes Thakkar, documented on behalf of Dr. Clayton. Chief [...] with plan for placement. (23:24) Accepted by [facility] in [place] for inpatient psychiatric my Dr. Elvis Forde. Transfer to this other facility. Attestation: Provider Statement ANA: Provider Statement 2nd Scribe. By electronically signing this emergency patient record, the Emergency Physician/INSIDE SALES LEAD/PA-C attests that all entries made into the electronic medical record by the scribe prior to the Physician/INSIDE SALES LEAD/PA-C signature reflect an accurate accounting of the evaluation and care rendered by that Emergency Physician/INSIDE SALES LEAD/PA-C. The Emergency Physician/INSIDE SALES LEAD/PA-C assumes full responsibility for those entries. The Emergency Physician/INSIDE SALES LEAD/PA-C also attests that any patient testing or treatment that was instituted by nursing staff. Richard Clayton MD 07/11/24 0123NormalUniversOhioHealth Mansfield HospitalETHANOLon 07-10-2024 ETHANOL (MG/DL) IN SER/PLAS<10Normal<10UnMcCullough-Hyde Memorial Hospital Comment on above:Performed By: #### [id number] #### [facility] ([facility]) [address] [place], [place] [address]DTFFWRH CALCULATED (%)<0.01NormalUniAvita Health System Ontario HospitalComment on above:Performed By: #### [id number] #### [facility] ([facility]) [address] [place], [place] [address]LIEYUHCZSF LEVELon 04-63-2371FFEWTUBFYUW (MG/DL) IN SER/PLAS<2 Low4-29UnMcCullough-Hyde Memorial HospitalComment on above:Performed By: #### [id number] ####[facility] ([facility]ER)[address] [place], [place] [address]NJD UA (CLEAN/CATCH) MICROSCOPIC IF INDICATEon 37-53-4997BTWVISJOS URINENegative NEGATIVENOMS HealthcareBLOOD URINETRACE-INEGATIVENOMS HealthcareClarity (U)CLEAR CLEARNOMS HealthcareColor (U)LT. YELLOWYELLOWNOCT HealthcareGLUCOSE URINE UA NegativeNEGATIVE mg/dLNOCT HealthcareInterpretation and review of laboratory resultsAbnormalNOMS HealthcareKetones Ql (U)TRACEAbnormalNEGATIVE mg/dLNOCT HealthcareLeukocyte esterase Test strip Ql (U)NegativeNEGATIVENOMS Healthcare NITRITE URINENegativeNEGATIVENOMS HealthcarepH (U)5.5 [pH]5.0 - 9.0NOMS HealthcarePROTEIN URINENegativeNEG/TRACE mg/dLNOCT HealthcareSPECIFIC GRAVITY URINE1.0151.005 - 1.025NOCT HealthcareURINE MICROSCOPIC INDICATEDYESNOCT HealthcareUROBILINOGEN URINE0.2 EU/dL0.2 - 1.0 EU/dLNOCT HealthcareCLINISYNCNOMS HealthcareTOXICOLOGY PANEL URINEon 48-77-6130QOYZNKFKKCB+METHAMPHETAMINE SCREEN (PRESENCE) IN URINENegativeNormalNegativeUnMcCullough-Hyde Memorial Hospital Comment on above:Performed By: #### [id number] ####[facility] ([facility])[address] [place], [place] [address]NIQOONQNJNIH PRESENCE IN URINE BY SCREEN METHOD NegativeNormalNegativeUnMcCullough-Hyde Memorial HospitalComment on above: Performed By: #### [id number] ####[facility] ([facility])[address] [place], [place] [address]Rcynkozpucmmouu Ql (U)NegativeNormalNegativeUnMcCullough-Hyde Memorial HospitalComment on above:Performed By: #### [id number] ####[facility] ([facility])[address] [place], [place] [address]TTHIKTDDLJL (PRESENCE) IN URINE BY SCREEN METHODPositiveAbnormalNegativeUnMcCullough-Hyde Memorial HospitalComment on above:Performed By: #### [id number] ####[facility] ([facility])[address] [place], [place] [address]Wfxemxa Ql (U)NegativeNormalNegative White HospitalComment on above:Performed By: #### [id number] ####[facility] ([facility])[address] [place], [place] [address]MEWOWPHDZ (PRESENCE) IN URINE BY SCREEN METHODNegativeNormalNegativeUnMcCullough-Hyde Memorial HospitalComment on above:Performed By: #### [id number] ####[facility] ([facility])[address] [place], [place] [address]RRYAGEV (PRESENCE) IN URINE BY SCREEN METHODNegativeNormalNegativeUnMcCullough-Hyde Memorial HospitalComment on above: Performed By: #### [id number] ####[facility] ([facility])[address] [place], [place] [address]AKRDCGKYILDOG PRESENCE IN URINE BY SCREEN METHODNegative NormalNegativeUnMcCullough-Hyde Memorial HospitalComment on above:Performed By: #### [id number] ####[facility] ([facility])[address] [place] [address] Propoxyphene Screen Ql (U)NegativeNormazNegativeUnMcCullough-Hyde Memorial HospitalComment on above:Performed By: #### [id number] ####[facility] ([facility])[address] [place], [place] [address]QRREQAOXS ANTIDEPRESSANTS (PRESENCE) IN URINENegativeNormalNegativeUnMcCullough-Hyde Memorial HospitalComment on above:Performed By: #### [id number] ####[facility] ([facility])[address] [place], [place] [address]DDTgs 43-67-5770QYNGYFPLKOI (MIU/L) IN SER/PLAS BY DETECTION LIMIT <= 0.05 MIU/L2.59 mIU/LNormal0.34-5.60UnMcCullough-Hyde [facility] Hospital Comment on above:Performed By: #### [id number] ####[facility] ([facility])[address] [place], [place] [address]KUOBZXSSZAhv 36-44-2674MFJIFFAIF, TOTAL PRESENCE IN URINENegativeNormazNegativeUnMcCullough-Hyde Memorial HospitalComment on above: Order Comment: Microscopics not performed on urines with negative chemical reactions unless requested on original order.Performed By: #### [id number] #### [facility] ([facility]) [address] [place], [place] [address]Xsyxqip (U)ClearNormalClearWhite Hospital Comment on above:Order Comment: Microscopics not performed on urines with negative chemical reactions unless requested on original order.Performed By: #### [id number] #### [facility] ([facility]) [address] [place], [place] [address]Mpdwg (U)Light-YellowNormalColorless, Yellow, Light-Yellow White HospitalComment on above:Order Comment: Microscopics not performed on urines with negative chemical reactions unless requested on original order.Performed By: #### [id number] #### [facility] ([facility]) [address] [place], [place] [address]KKASKTN (MG/DL) IN URINENormalNormalNormalUniversOhioHealth Mansfield HospitalComment on above:Order Comment: Microscopics not performed on urines with negative chemical reactions unless requested on original order. Performed By: #### [id number] #### [facility] ([facility]) [address] [place], [place] [address]CVZMSGPQTH PRESENCE IN URINENegativeNormalNegativeWhite HospitalComment on above:Order Comment: Microscopics not performed on urines with negative chemical reactions unless requested on original order. Performed By: #### [id number] #### [facility] ([facility]) [address] [place], [place] [address]Jcqmnnv Ql (U)NegativeNormalNegativeWhite HospitalComment on above:Order Comment: Microscopics not performed on urines with negative chemical reactions unless requested on original order.Performed By: #### [id number] #### [facility] ([facility]) [address] [place], [place] [address]TDJOZYGYU ESTERASE PRESENCE IN URINE BY TEST STRIPNegativeNormal NegativeWhite HospitalComment on above:Order Comment: Microscopics not performed on urines with negative chemical reactions unless requested on original order.Performed By: #### [id number] #### [facility] ([facility]) [address] [place], [place] [address]EEKUOYK PRESENCE IN URINENegativeNormalNegativeUniversity of Bacon Medical CenterComment on above:Order Comment: Microscopics not performed on urines with negative chemical reactions unless requested on original order. Performed By: #### [id number] #### [facility] ([facility]) [address] [place], [place] [address]kF (U)5.5 [pH]Normal5.0-8.0UnMcCullough-Hyde Memorial Hospital Comment on above:Order Comment: Microscopics not performed on urines with negative chemical reactions unless requested on original order.Performed By: #### [id number] #### [facility] ([facility]) [address] [place], [place] [address]Zvqgdbf (U) [Mass/Vol]NegativeNormalNegativeUnMcCullough-Hyde Memorial HospitalComment on above:Order Comment: Microscopics not performed on urines with negative chemical reactions unless requested on original order. Performed By: #### [id number] #### [facility] ([facility]) [address] [place], [place] [address]Tyqzxonu gravity (U) [Rel density]1.563Etjjbm2.010-1.030 White HospitalComment on above:Order Comment: Microscopics not performed on urines with negative chemical reactions unless requested on original order.Performed By: #### [id number] #### [facility] ([facility]) [address] [place], [place] [address]OITPJJVFPYWA (MG/DL) IN URINENormalNormalNormalUniversOhioHealth Mansfield HospitalComment on above:Order Comment: Microscopics not performed on urines with negative chemical reactions unless requested on original order. Performed By: #### [id number] #### [facility] ([facility]) [address] [place], [place] [address]Fjbgs Cultureon [id number] identified Cx Nom (U)No Growth 2 Days PERFORMED BY: [facility] [address] [place] [address] LAB TECHNICIAN DOV JUAREZ M.D.NormalThe [facility] Physician GroupComment on above: Performed By: #### CUU #### [facility] [address] [place] [address] [id number] patient is Moderately Stable - Low risk [...] in self care as tolerated Outcome: ProgressingNormalUniversity [facility]30The patient is Moderately Stable - Low risk of patient condition declining or worsening The patient's goals for the shift include restful sleep The clinical goals for the shift include safety Problem: Anxiety Goal: STG-Cooperates with evaluations from physicians/RNs Outcome: Progressing Problem: Confusion Goal: LTG-Take medications as prescribed Outcome: Progressing Pt is progressing with stated goalsNoalUniAvita Health System Ontario Hospital36on [id number] you. Will take care of this.[facility]94on [id number] Topic: Activity Therapy Group Date: 07/05/2024 Start Time: 0950 End Time: 1130 Facilitators: AYSE JorgeS Department: [facility] Number of Participants: 8 [...] Donnie Bullock Date of : 1955 MR: [id number] Level of Participation: minimal Quality of Participation: [...] REM sleep behavior disorder MDD (major depressive disorder)[facility]94 Attestation signed by MINDY Hunt at 07/05/2024 2:43 PM I agree with the content of this note and have no current revisions. Group Topic: Insight Group Date: 07/05/2024 Start Time: 1015 End Time: 1100 Facilitators: Mindy Weinstein Department: [facility] Number of Participants: 8 Group Focus: anxiety, check in, depression, feeling awareness/expression, and individual meeting Treatment Modality: Individual Therapy and Patient-Centered Therapy Interventions utilized were confrontation, exploration, and support Purpose: express feelings, improve communication skills, and increase insight or knowledge Name: Donnie Bullock Date of : 1955 MR: [id number] Level of Participation: active Quality of Participation: [...] REM sleep behavior disorder MDD (major depressive disorder)[facility] Cr[facility] HospitalDSon [id number] Attestation signed by Irma Greco DO at [...] PM : 1955 Treating Physician: Dr. Greco [facility] Course: The history of present illness was provided by the patient's /ELIZA Vimal Bullock and by the patient, Donnie [...] by Dr. Judy Chino, a psychologist in [place]. She then, approximately 1 year ago, began seeing neurology (Dr. Ambrose at [facility]). She also presented to the [facility] for a second opinion in April, (MOCA score at that time was 17/30). The patient previously received services through [facility], this care was reported to be for her major neurocognitive disorder. This week the patient was experiencing worsening hallucinations. On Wednesday (06/05/2024) she reported that she killed her 4 kids and grandchildren. She stated she had their head in bags. The next day (06/06/2024) she was increasingly paranoid and told her that the automatic seamer was coming to take her away and she was packing. She experiences visual hallucinations every day, intermittently. In particular, Mrs. Bullock sees babies suffocating and people living in her house. She also reports seeing dogs as well as squirrels on her husbands shoulder when they watch TV together. Furthermore, patient states when she was hospitalized at [facility] for (depressive symptoms) she saw ribbons in [...] ideation, plan and intent. The patient is hinduism and she enjoys watching mass on TV. She does not like to attend [employer] in person anymore as she does not like to be around people. 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 She comple (more content not included)... [facility] HospitalNURSNOTEon [id number] belongings and medication returned to patient and her Vimal. Discharge instructions explained to patient's . Package Dyer walked patient and her out to the car to ensure safe departure.[facility] HospitalNURSNOTEPatient attended breakfast in day room and [...] and calm at this time. Safety checks continued.[facility] HospitalNURSNOTEPt got around 7 hours of sleep throughout the night. No negative behaviors noted.[facility] Crille HospitalRefillon [id number] Donnie Bullock 1955 F Date Provider Department Center 07/05/202422202-[facility]PTCE[facility] Ramone Heal No family history on file Reason for Visit and Comments: Med Change Request [411][facility]30on 07-04-2024 30The patient is Moderately Stable [...] allowing vitals twice daily Outcome: ProgressingNormalUniversity of [facility]30The patient is Moderately Stable - Low [...] 10 per shift Outcome: Not ProgressingNormalUniversity of [facility]94on 07-04-2024 94Group Topic: Exercise Group Date: 07/04/2024 Start Time: 1345 End Time: 1435 Facilitators: JONATHAN Carr Department: [facility] Number of Participants: 5 [...] Donnie Bullock Date of : 1955 MR: [id number] Level of Participation: active Quality of Participation: engaged Interactions with others: gave feedback Mood/Affect: bored Progress: Gaining insight or knowledge Response: Pt. Engaged in exercise group alongside DIGITAL INTERN and peers. Pt. Participated minimally in group discussions and exercise group. Pt. Refused engagement in group exercise capitan grande but participated in her chair while watching others. Plan: Pt. Will be encouraged to continue attending therapeutic recreation interventions with the DIGITAL INTERN and peers while on the unit. Patients Problems: Patient Active Problem List Diagnosis Neurocognitive disorder with Lewy bodies (CMS/HCC) Slow transit constipation Visual hallucinations Paroxysmal supraventricular tachycardia (CMS/HCC) Personal history of COVID-19 Mixed hyperlipidemiaNormalUniversity of [facility]view [facility] Hospital94 Attestation signed by MINDY Hunt at 07/04/2024 3:04 PM I agree with the content of this note and have no current revisions. Group Topic: Communication Skills Group Date: 07/04/2024 Start Time: 1015 End Time: 1100 Facilitators: Mindy Weinstein Department: [facility] Number of Participants: 2 Group Focus: check in, clarity of thought, communication, daily focus, feeling awareness/expression, and individual meeting Treatment Modality: Individual Therapy and Patient-Centered Therapy Interventions utilized were confrontation, orientation, and support Purpose: express feelings and improve communication skills Name: Donnie Bullock Date of : 1955 MR: [id number] Level of Participation: patient was practicing a relaxation technique in her room Plan: patient will be encouraged to participate in future groups Patients Problems: Patient Active Problem List Diagnosis Neurocognitive disorder with Lewy bodies (CMS/HCC) Slow transit constipation Visual hallucinations Paroxysmal supraventricular tachycardia (CMS/HCC) Personal history of COVID-19 Mixed hyperlipidemiaNormalUniversity of [facility]view [facility] Hospital94Group Topic: Activity Therapy Group Date: 07/04/2024 Start Time: 944 End Time: 1130 Facilitators: AYSE JorgeS Department: [facility] Number of Participants: 2 Group Focus: check in, clarity of thought, concentration, family, feeling awareness/expression, leisure skills, problem solving, reminiscence, and social skills Treatment Modality: Leisure Development and Patient-Centered Therapy Interventions utilized were active listening, leisure development, problem solving, reminiscence, story telling, and support Purpose: express feelings, improve communication skills, and increase insight or knowledge Name: Donnie Bullock Date of : 1955 MR: [id number] Level of Participation: withdrawn Response: Pt. Did not participate in the group activity. Plan: Pt will be encouraged to participate in recreational therapy groups and activities. Patients Problems: Patient Active Problem List Diagnosis Neurocognitive disorder with Lewy bodies (CMS/HCC) Slow transit constipation Visual hallucinations Paroxysmal supraventricular tachycardia (CMS/HCC) Personal history of COVID-19 Mixed hyperlipidemiaNormalUniversity Parkview Health Montpelier HospitalNURSNOTEon [id number] assessed and in stable condition. Currently resting in bed. Calm and cooperative with staff at this time. Compliant with HS medication pass. Denies further needs at this time.[facility] HospitalNURSNOTEPt has been calm and cooperative this shift. Pt has been observed smiling at times. Pt ititially was sad and withdrawn this morning, but has been in a more friendly mood this afternoon. Pt visited and they walked the halls together. Checks for safety continue.[facility] NURSNOTEPt has been calm and cooperative this morning. PT compliant with medications ans assessment. Pt showered and ate breakfast. Pt continue to be pleasantly confused at times, and talks about worries with the babies. Pt has been social this morning talking with another patient and attempting to help her with her walker. Checks for safety continue.[facility] HospitalNURSNOTEPt slept 7 hours overnight. No negative behaviors to note overnight. Safety checks maintained.[facility]94on Group Topic: Activity Therapy Group Date: 07/03/2024 Start Time: 1400 End Time: 1500 Facilitators: JONATHAN Jorge Department: [facility] Number of Participants: 3 Group Focus: communication, family, feeling awareness/expression, leisure skills, reminiscence, and social skills Treatment Modality: Leisure Development and Patient-Centered Therapy Interventions utilized were active listening, leisure development, reminiscence, story telling, and support Purpose: express feelings, improve communication skills, and increase insight or knowledge Name: Donnie Bullock Date of : 1955 MR: [id number] Level of Participation: withdrawn Response: Pt. Did not participate in the group activity. Plan: Pt will be encouraged to participate in recreational therapy groups and activities. Patients Problems: Patient Active Problem List Diagnosis Neurocognitive disorder with Lewy bodies (CMS/HCC) Slow transit constipation Visual hallucinations Paroxysmal supraventricular tachycardia (CMS/HCC) Personal history of COVID-19 Mixed hyperlipidemiaNormalUniversity of [facility]view [facility] Hospital94Group Topic: Activity Therapy Group Date: 07/03/2024 Start Time: 0945 End Time: 1130 Facilitators: JONATHAN Jorge Department: [facility] Number of Participants: 4 Group Focus: check in, communication, concentration, coping skills, depression, family, feeling awareness/expression, leisure skills, reminiscence, and social skills Treatment Modality: Leisure Development and Patient-Centered Therapy Interventions utilized were active listening, leisure development, reminiscence, story telling, and support Purpose: express feelings, improve communication skills, and increase insight or knowledge Name: Donnie Bullock Date of : 1955 MR: [id number] Level of Participation: withdrawn Response: Pt. Did not participate in the group activity. Plan: Pt will be encouraged to participate in recreational therapy groups and activities. Patients Problems: Patient Active Problem List Diagnosis Neurocognitive disorder with Lewy bodies (CMS/HCC) Slow transit constipation Visual hallucinations Paroxysmal supraventricular tachycardia (CMS/HCC) Personal history of COVID-19 Mixed hyperlipidemiaNormalUniversity of Parkview Regional HospitalNURSNOTEon [id number] calm and cooperative with assessment and medical records technician. Observed wandering the unit at beginning of the shift. Pt was tearful and states that she missed her and wanted to go home. Pt is currently in bed resting. Safety checks maintained.[facility] HospitalNMEMORIAL MEDICAL CENTERNOTEPt has been calm and cooperative. Pt's visited and pt appeared to be in good spirits. Pt continues to be confused and anxious, but does not appear to be wandering this shift. Checks for safety will continue.[facility] HospitalNMEMORIAL MEDICAL CENTERNOTEPt has been calm and cooperative this morning. Pt compliant with medications ans assessments. Pt continues to be pleasantly confused, with flat affect. Pt spoke with her this morning. Checks for safety continue.[facility] HospitalNMEMORIAL MEDICAL CENTERNOTEPt slept approximately 7 hours during the night. She did get out of bed and come out to the day room one time during the night but was easily redirected back to bed. She is sleeping in bed at this time.[facility]30The patient is Moderately Unstable - Medium [...] takes stool softener medication by discharge Outcome: ProgressingNormalUniAvita Health System [facility]30Problem: Confusion Goal: STG-Engages in social situations appropriately 3 per shift Outcome: Progressing Problem: Psychotic Symptoms Goal: STG-Will report less than 12 hallucinations per shift by discharge Outcome: Progressing Problem: Constipation Goal: STG-Willingly takes stool softener medication by discharge Outcome: Progressing Problem: Anxiety Goal: STG-Will not pace the floor more than 10 per shift Outcome: Not ProgressingBrecksville VA / [facility]ille Hospital94on 07-02-2024 94Group Topic: Feeling Awareness/Expression Group Date: 07/02/2024 Start Time: 0900 End Time: 944 Facilitators: Cydney Peacock OT Department: [facility] Number of Participants: 5 Group Focus: check in, coping skills, daily focus, feeling awareness/expression, self-awareness, self-esteem, and social skills Treatment Modality: Leisure Development, Patient-Centered Therapy, and Solution-Focused Therapy Interventions utilized were exploration, leisure development, patient education, reminiscence, and support Purpose: enhance coping skills, regain self-worth, and reinforce self-care Name: Donnie Bullock Date of : 1955 MR: [id number] Level of Participation: moderate Quality of Participation: [...] Personal history of COVID-19 Mixed hyperlipidemiaNormalUniversity of Parkview Regional HospitalNURSNOTEon [id number] was sitting in the day room at the beginning of the shift socializing with peers. Pt stated that she had kind of a bad day because her dad yesterday but there was a beautiful service . She also stated that she didn't know what she was going to do without her dad because she has been for 46 years. Package Dyer spoke with pt about her and reminded that she had spoken with him earlier today on the phone. Package Dyer asked pt if she was tired. She said that she was but she didn't know where her room was. Package Dyer assisted pt to her room and assisted her to bed. She is sleeping at this time. Pt was compliant with medications and assessment. She denied pain, depression, anxiety, SI, HI, or the presence of AVH.[facility] HospitalNURSNOTEPatient has been awake in dayroom all day. [...] was staying here tonite. Now walking around unit.[facility] AndersonNURSNOTEPatient drank all boost with ice cream. Now walking around dayroom.[facility] NURSNOTEPatient put self on floor on hands and knees in dayroom from a chair in front of poem writer. When asked what was wrong, she said I felt light-headed . Assisted per 2 staff members back to chair and VSS. Fluids given and I spoke to patient about eating and drinking more nourishment.[facility] NURSNOTEPatient woke early and found sitting quietly in dayroom. Ate well and then took all her meds. More confused at times but easily reoriented. Now wandering around dayroom.[facility] HospitalNURSJasmin was assisted back to bed by the poem writer. Pt stated there were some janky squirrels in here running around a little bit ago . The pt also asked please tell me the truth, are there any animals in here that can hurt me? [facility] AndersonNAnn just walked out into the day room and when the poem writer said good morning to her she stated it's not so good, this place is a dump. I can't figure out where in [place] we are . The poem writer reminded the pt that she was in [place] and she then said oh, that's right .[facility] NURSNOTHolly slept for approximately 7 hours during the night. She slept from 2300-now without waking. No negative behaviors noted.[facility]30The patient is Moderately Unstable - Medium [...] softener medication by discharge Outcome: ProgressingNormalUniversity of [facility]30The patient is Moderately Unstable - Medium risk of patient condition declining or worsening The patient's goals for the shift include bowel movements The clinical goals for the shift include safety/sleep/rapport Problem: Anxiety Goal: STG-Cooperates with evaluations from physicians/RNs Outcome: Progressing Problem: Psychotic Symptoms Goal: LTG-Decrease hallucinations/delusions/paranoia Outcome: Progressing Problem: Constipation Goal: STG-Willingly takes stool softener medication by discharge Outcome: ProgressingNormalUniversity of [facility]94on Group Topic: Relaxation Group Date: 07/01/2024 Start Time: 904 End Time: 1004 Facilitators: Cydney Peacock OT Department: [facility] Number of Participants: 6 Group Focus: check in, leisure skills, relaxation, self-awareness, and self-esteem Treatment Modality: Leisure Development and Patient-Centered Therapy Interventions utilized were patient education, problem solving, and support Purpose: enhance coping skills, increase insight or knowledge, regain self-worth, and reinforce self-care Name: Donnie Bullock Date of : 1955 MR: [id number] Level of Participation: moderate Quality of Participation: [...] Personal history of COVID-19 Mixed hyperlipidemiaNormalUniversity of Parkview Regional HospitalNURSNOTEon [id number] was out in the day room at the beginning of the shift. She was socializing with peers and intermittently walking around unit. Pt also frequently dozing in chair in day room. Package Dyer assisted pt to bed. She continues with [...] Pt was compliant with medications and assessment. [facility] moved patient to 1343 because her roommate [...] room. Appetite fair. Now sitting quietly in dayroom.[facility] CenterEMoved patient to 1343 so she could restNormalUniversity of The Hospital at Westlake Medical CenterEPatient dozing sitting in a chair in dayroom, hadn't slept in her bed much due to her roommate. Continues with flat affect. Ate about 75 % of breakfast. Participated in rec therapy group. Now walking around unit. Compliant with am meds and pleasant with staff.[facility] HospitalMariluMEMORIAL MEDICAL CENTERJasmin slept approximately 4 hours on and off [...] reassurance. Pt just came and asked the poem writer if the fish in her room were dangerous. She stated the fish were white, green and gold. Package Dyer reminded the pt that she was in the hospital and then she realized that I thought I saw fish, but I know they weren't real . The pt is walking in the cronin at this time.[facility] MetroHealth SystemJasmin was resting in room at shift change. [...] the day room to sleep in a recliner.[facility]30The patient is Moderately Unstable - Medium [...] STG-Willingly allowing vitals twice daily Outcome: ProgressingNormalUniversity [facility]94 Group Topic: Activity Therapy Group Date: 06/30/2024 Start Time: 1400 End Time: 1445 Facilitators: JONATHAN Jorge Department: [facility] Number of Participants: 3 Group Focus: communication, family, feeling awareness/expression, leisure skills, reminiscence, and social skills Treatment Modality: Leisure Development and Patient-Centered Therapy Interventions utilized were active listening, leisure development, reminiscence, story telling, and support Purpose: express feelings, improve communication skills, and increase insight or knowledge Name: Donnie Bullock Date of : 1955 MR: [id number] Level of Participation: withdrawn Response: Pt. Did not participate in the group activity. Plan: Pt will be encouraged to participate in recreational therapy groups and activities. Patients Problems: Patient Active Problem List Diagnosis Neurocognitive disorder with Lewy bodies (CMS/HCC) Slow transit constipation Visual hallucinations Paroxysmal supraventricular tachycardia (CMS/HCC) Personal history of COVID-19 Mixed hyperlipidemiaNormalUniversity of [facility]94 Attestation signed by MINDY Hunt at 06/30/2024 4:11 PM I agree with the content of this note and have no current revisions. Group Topic: Discharge Planning Group Date: 06/30/2024 Start Time: 1014 End Time: 1100 Facilitators: Mindy Weinstein Department: [facility] [employer] [employer] Number of Participants: 2 Group Focus: check in, communication, discharge education, individual meeting, and safety plan Treatment Modality: Individual Therapy and Patient-Centered Therapy Interventions utilized were mental fitness, patient education, and support Purpose: explore maladaptive thinking and relapse prevention strategies Name: Donnie Bullock Date of : 1955 MR: [id number] Level of Participation: patient was pacing the halls Plan: patient will be encouraged to participate in future groups Patients Problems: Patient Active Problem List Diagnosis Neurocognitive disorder with Lewy bodies (CMS/HCC) Slow transit constipation Visual hallucinations Paroxysmal supraventricular tachycardia (CMS/HCC) Personal history of COVID-19 Mixed hyperlipidemiaNormalUniversity of [facility]94Group Topic: Activity Therapy Group Date: 06/30/2024 Start Time: 1014 End Time: 1150 Facilitators: JONATHAN Jorge Department: [facility] Number of Participants: 6 [...] Donnie Bullock Date of : 1955 MR: [id number] Level of Participation: refused Response: Pt. Refused to participate in the group activity. Plan: Pt will be encouraged to participate in recreational therapy groups and activities. Patients Problems: Patient Active Problem List Diagnosis Neurocognitive disorder with Lewy bodies (CMS/HCC) Slow transit constipation Visual hallucinations Paroxysmal supraventricular tachycardia (CMS/HCC) Personal history of COVID-19 Mixed hyperlipidemiaNormalUniversity [facility]94Group Topic: Occupational Therapy Group Date: 06/30/2024 Start Time: 929 End Time: 1009 Facilitators: Ana Bryant OT Department: [facility] Number of Participants: 4 Group [...] Donnie Bullock Date of : 1955 MR: [id number] Level of Participation: withdrawn Patients Problems: Patient Active Problem List Diagnosis Neurocognitive disorder with Lewy bodies (CMS/HCC) Slow transit constipation Visual hallucinations Paroxysmal supraventricular tachycardia (CMS/HCC) Personal history of COVID-19 Mixed hyperlipidemiaNormalUniversity Parkview Health Montpelier HospitalCBC WITH AUTO DIFFERENTIALon [id number] (Bld) [#/Vol]0.03 10*3/uLNormal0.00-0.20 White HospitalComment on above:Performed By: #### [id number] #### [facility] ([facility]) [address] [place], [place] [address]Lfqgqtall/100 WBC (Bld)0.5 %Normal0.0-1.0UnMcCullough-Hyde Memorial HospitalComment on above:Performed By: #### [id number] #### [facility] ([facility]) [address] [place] [address]Arbdqdslkpi (Bld) [#/Vol]0.02 10*3/uLNormal0.00-0.50UnMcCullough-Hyde Memorial HospitalComment on above:Performed By: #### [id number] #### [facility] ([facility]) [address] [place] [address]Omvknpqdxqw/100 WBC (Bld)0.4 %Normal0.0-6.0UnMcCullough-Hyde Memorial HospitalComment on above:Performed By: #### [id number] #### [facility] ([facility]) [address] [place], [place] [address]Eyxcjhudckf distribution width (RBC) [Ratio]12.4 %Normal 11.5-15.0UnMcCullough-Hyde Memorial HospitalComment on above:Performed By: #### [id number] #### [facility] ([facility]) [address] [place], [place] [address]DBSPNWSJXJS MEAN CORPUSCULAR HEMOGLOBIN CONCENTRATION (G/DL) BY QEEEBLALX78.0 g/xZIdslsm31.0-35.0UnMcCullough-Hyde Memorial HospitalComment on above:Performed By: #### [id number] #### [facility] ([facility]) [address] [place], [place] [address]Kagytfurtd (Bld) [Volume fraction]40.9 %Rejvzk27.0-48.0 White HospitalComment on above:Performed By: #### [id number] #### [facility] ([facility]) [address] [place] [place], [place] [address]Tfwqitpgmr (Bld) [Mass/Vol]13.5 g/tANtkzmj87.0-15.0UnMcCullough-Hyde Memorial HospitalComment on above:Performed By: #### [id number] #### [facility] ([facility]) [address] [place], [place] [address]Dygilxgb granulocytes (Bld) [#/Vol]0.01 10*3/uLNormal0.00-0.20 White HospitalComment on above:Performed By: #### [id number] #### [facility] (BEAKER) [address] [place] [address]Lyhmqdpg granulocytes/100 WBC (Bld)0.2 %Normal0.0-1.0UnMcCullough-Hyde Memorial HospitalComment on above:Performed By: #### [id number] #### [facility] ([facility]) [address] [place] [place], [place] [address]Thqluiqvads (Bld) [#/Vol]1.05 10*3/uLLow1.20-4.00UnMcCullough-Hyde Memorial HospitalComment on above:Performed By: #### [id number] #### [facility] ([facility]) [address] [place], [place] [address]Mxuuflblico/100 WBC (Bld)18.4 %Low20.0-45.0UnMcCullough-Hyde Memorial HospitalComment on above:Performed By: #### [id number] #### [facility] (AKER) [address] [place] [place], [place] [address]YDK (RBC) [Entitic mass]29.5 viBnmuor05.0-33.0UnMcCullough-Hyde Memorial HospitalComment on above:Performed By: #### [id number] #### [facility] (BEAKER) [address] [facility] [place], [place] [address]OYS (RBC) [Entitic vol]89.5 cSViigtj66.0-98.0UnMcCullough-Hyde Memorial HospitalComment on above:Performed By: #### [id number] #### [facility] (BE[facility]ER) [address] [place] [place], [place] [address]Puyecqaxq (Bld) [#/Vol]0.30 10*3/uLNormal0.10-1.00UnMcCullough-Hyde Memorial HospitalComment on above:Performed By: #### [id number] #### [facility] (BE[facility]ER) [address] [place] [place], [place] [address]Phlpmnmov/100 WBC (Bld)5.3 %Normal5.0-12.0UnMcCullough-Hyde Memorial HospitalComment on above:Performed By: #### [id number] #### [facility] ([facility]) [address] [place] [address]Cdufekgusxv (Bld) [#/Vol]4.30 10*3/uLNormal1.60-7.60UnMcCullough-Hyde Memorial HospitalComment on above:Performed By: #### [id number] #### [facility] ([facility]) [address] [place] [address]Qtfrhrcwgtp/100 WBC (Bld)75.2 %High40.0-72.0UnMcCullough-Hyde Memorial HospitalComment on above:Performed By: #### [id number] #### [facility] ([facility]) [address] [place] [address]AUCY (PER 100 WBCS) BY AUTOMATED COUNT0.0 %Rajcuy5WaobgchhijMcCullough-Hyde Memorial HospitalComment on above:Performed By: #### [id number] #### [facility] ([facility]) [address] [place] [address]MQTBOIIOJ (10*3/UL) IN BLOOD AUTOMATED ORDDL006 10*3/uLNormal 150-400UnMcCullough-Hyde Memorial HospitalComment on above:Performed By: #### [id number] #### [facility] ([facility]) [address] [place] [address]YLL (Bld) [#/Vol]4.57 10*6/uLNormal3.80-5.00UnMcCullough-Hyde Memorial HospitalComment on above:Performed By: #### [id number] #### [facility] ([facility]) [address] [place] [address]QPS (Bld) [#/Vol]5.71 10*3/uLNormal4.00-10.60UnMcCullough-Hyde Memorial HospitalComment on above:Performed By: #### [id number] #### [facility] ([facility]) [address] [place], [place] [address]LCESPURFVUWWT METABOLIC PANELon 25-05-1729Jbluekj [Mass/Vol]4.4 g/dLNormal3.5-5.7UnMcCullough-Hyde Memorial HospitalComment on above:Performed By: #### [id number] #### [facility] ([facility]) [address] [place], [place] [address]FZB [Catalytic activity/Vol]48 U/WJdeyot97-362OfplcrgnrdMcCullough-Hyde Memorial HospitalComment on above:Performed By: #### [id number] #### [facility] ([facility]) [address] [place], [place] [address]SSF [Catalytic activity/Vol]22 U/LNormal7-52UnMcCullough-Hyde Memorial HospitalComment on above:Performed By: #### [id number] #### [facility] ([facility]) [address] [place], [place] [address]Qhxib gap [Moles/Vol]10 mmol/LNormal7-20UnMcCullough-Hyde Memorial HospitalComment on above:Performed By: #### [id number] #### [facility] ([facility]) [address] [place], [place] [address]DKZ [Catalytic activity/Vol]33 U/FSngmlc81-73QtofaxfaboMcCullough-Hyde Memorial HospitalComment on above:Performed By: #### [id number] #### [facility] ([facility]) [address] [place], [place] [address]Iupqmkugz [Mass/Vol]0.5 mg/dLNormal0.3-1.0UnMcCullough-Hyde Memorial HospitalComment on above:Performed By: #### [id number] #### [facility] ([facility]) [address] [place], [place] [address]Jgkxusa [Mass/Vol]9.6 mg/dLNormal8.6-10.3UnMcCullough-Hyde Memorial HospitalComment on above:Performed By: #### [id number] #### [facility] ([facility]) [address] [place], [place] [address]Wvduikpf [Moles/Vol]106 mmol/TLzqpxf20-866BepzdtivrdMcCullough-Hyde Memorial HospitalComment on above:Performed By: #### [id number] #### [facility] ([facility]) [address] [place] [address]KP4 [Moles/Vol]28 mmol/KQjkcfl17-10IzkdlckmxuMcCullough-Hyde Memorial HospitalComment on above:Performed By: #### [id number] #### [facility] ([facility]) [address] [place] [address]Mmdvtbgqwt [Mass/Vol]0.59 mg/dLLow0.60-1.20UnMcCullough-Hyde Memorial HospitalComment on above:Performed By: #### [id number] #### [facility] ([facility]) [address] [place] [address]GQGGYIBRIX FILTRATION RATE ML/MIN/1.73 SQ M.NOKGVESBI08.9 mL/min/1.73m*2Normal>60.0UnMcCullough-Hyde Memorial HospitalComment on above: Result Comment: [facility]???s estimated glomerular filtration rate (eGFR) will [...] group of individuals.Performed By: #### [id number] #### [facility] ([facility]) [address] [place] [address]Pezmyzm [Mass/Vol]121 mg/hXSpho43-489PedyzurtiiMcCullough-Hyde Memorial HospitalComment on above:Performed By: #### [id number] #### [facility] ([facility]) [address] [place] [address]Whwallxdg [Moles/Vol]4.0 mmol/LNormal3.5-5.1UnMcCullough-Hyde Memorial HospitalComment on above:Performed By: #### [id number] #### [facility] ([facility]) [address] [place] [address]Ijmuwar [Mass/Vol]7.0 g/dLNormal6.0-8.3UnMcCullough-Hyde Memorial HospitalComment on above:Performed By: #### [id number] #### [facility] ([facility]) [address] [place] [address]Gjhvie [Moles/Vol]140 mmol/FJmhvvv117-936RjalkrpvlrMcCullough-Hyde Memorial HospitalComment on above:Performed By: #### [id number] #### [facility] ([facility]) [address] [place] [address]Xotk nitrogen [Mass/Vol]15 mg/dLNormal7-25UnMcCullough-Hyde Memorial HospitalComment on above:Performed By: #### [id number] #### [facility] ([facility]) [address] [place] [address]LEHV NITROGEN/CREATININE (MASS RATIO) IN SER/PLAS25.4Noal White HospitalComment on above:Performed By: #### [id number] #### [facility] ([facility]) [address] [place] [address]NMVUOQNMcm 83-31-0649KZUHPZCJYausxqu pleasant and cooperative with staff and peers. [...] safe with every 15 minute checks per policy.NormalUnMcCullough-Hyde Memorial Hospital NURSNOTEPt slept approximately 5 hours last night. Pt was noted to be looking for children in her room, but was then accepting of being in the hospital and sat back down in a chair in her room. Pt currently resting in bed again at this time. Safety maintained.[facility]30on 06-29-2024 30The patient is Moderately Stable [...] prescribed Outcome: Progressing Goal: LTG-Decrease hallucinations/delusions/paranoia Outcome: ProgressingNormalUniAvita Health System [facility] Hospital94on Group Topic: Activity Therapy Group Date: 06/29/2024 Start Time: 1400 End Time: 1600 Facilitators: JONATHAN Jorge Department: [facility] Number of Participants: 6 Group Focus: communication, concentration, feeling awareness/expression, leisure skills, problem solving, and social skills Treatment Modality: Leisure Development and Patient-Centered Therapy Interventions utilized were active listening, leisure development, problem solving, and support Purpose: express feelings, improve communication skills, and increase insight or knowledge Name: Donnie Bullock Date of : 1955 MR: [id number] Level of Participation: withdrawn Response: Pt. Did not participate in the group activity. Plan: Pt will be encouraged to participate in recreational therapy groups and activities. Patients Problems: Patient Active Problem List Diagnosis Neurocognitive disorder with Lewy bodies (CMS/HCC) Slow transit constipation Visual hallucinations Paroxysmal supraventricular tachycardia (CMS/HCC) Personal history of COVID-19 Mixed hyperlipidemiaNormalUniversselect medical [facility]94Group Topic: Activity Therapy Group Date: 06/29/2024 Start Time: 1000 End Time: 1150 Facilitators: JONATHAN Jorge Department: [facility] Number of Participants: 5 Group [...] Donnie Bullock Date of : 1955 MR: [id number] Level of Participation: refused Response: Pt. Refused to participate in the group activity. Plan: Pt will be encouraged to participate in recreational therapy groups and activities. Patients Problems: Patient Active Problem List Diagnosis Neurocognitive disorder with Lewy bodies (CMS/HCC) Slow transit constipation Visual hallucinations Paroxysmal supraventricular tachycardia (CMS/HCC) Personal history of COVID-19 Mixed hyperlipidemiaNormalUniversity of Parkview Regional HospitalNNOR-LEA GENERAL HOSPITALon [id number] resting in room at shift change. Pt [...] her assigned bed at this time. Safety maintained.[facility] HospitalNURSNOTEPatient spent some time in the day room and sat with poem writer. Patient was observed reaching at the floor trying to grab non-existent objects and also looked into the hallway and stated those kids are sitting outside in the middle of June . Patient observed talking out loud as if she was having a conversation with another person; poem writer asked patient who she was talking to and what she was seeing and patient responded stating I don't remember . Patient calm and pleasant, visited with and is now attending dinner. Patient denies any needs at this time. Safety checks continued.[facility] HospitalNURSNOTEPatient spending time in her room. Patient [...] any needs at this time. Safety checks continued.[facility] HospitalMariluNOR-LEA GENER[facility]OSPITAL Pt slept approximately 8.5 hours last night. Pt woke up briefly this morning, and reportedly didn't sleep too well. Pt stated, When I wake up and don't know where I am it makes me nervous. Pt provided with emotional support and a warm blanket, and returned to her room to lay back down. PT safety maintained.[facility]30on [id number]: Confusion Goal: LTG-Take medications as prescribed Outcome: Progressing Problem: Depression Goal: LTG-Engage in self care as tolerated Outcome: Progressing Problem: Psychotic Symptoms Goal: LTG-Decrease hallucinations/delusions/paranoia Outcome: Progressing Problem: Fall Risk Goal: LTG-No falls Outcome: ProgressingNormalUniversity of [facility]30The patient is Moderately Stable - Low [...] Goal: STG-Willingly allowing vitals twice daily Outcome: ProgressingNormalUniversOhioHealth [facility] Hospital94on Group Topic: Activity Therapy Group Date: 06/28/2024 Start Time: 1400 End Time: 1600 Facilitators: JONATHAN Jorge Department: [facility] Number of Participants: 8 Group Focus: concentration, feeling awareness/expression, leisure skills, problem solving, reminiscence, and social skills Treatment Modality: Leisure Development and Patient-Centered Therapy Interventions utilized were active listening, leisure development, problem solving, reminiscence, story telling, and support Purpose: express feelings, improve communication skills, and increase insight or knowledge Name: Donnie Bullock Date of : 1955 MR: [id number] Level of Participation: minimal Quality of Participation: [...] Personal history of COVID-19 Mixed hyperlipidemiaNormalUniversity of [facility]94Group Topic: Activity Therapy Group Date: 06/28/2024 Start Time: 949 End Time: 1150 Facilitators: JONATHAN Jorge Department: [facility] Number of Participants: 6 Group [...] Donnie Bullock Date of : 1955 MR: [id number] Level of Participation: refused Response: Pt. Refused to participate in the group activity. Plan: Pt will be encouraged to participate in recreational therapy groups and activities. Patients Problems: Patient Active Problem List Diagnosis Neurocognitive disorder with Lewy bodies (CMS/HCC) Slow transit constipation Visual hallucinations Paroxysmal supraventricular tachycardia (CMS/HCC) Personal history of COVID-19 Mixed hyperlipidemiaNormalUniversity of Parkview Regional HospitalNURSNOTEon 24-02-4410YUVBUXRSCc walking around the unit at shift change. [...] behaviors or issues to report. Safety checks maintained.NormalUniversity of Bacon Medical CenterNURSNOTEPatient A&Ox1, pleasant and cooperative with automatic furnace operator, medication administration and ADLs. She denies [...] passing gas. Safety checks maintained per unit policy.[facility] HospitalNURSNOTEPt slept approximately 6.5 hours last night, per the nightly sleep sheet. Pt wandered out of her room around 0600, and was hallucinating children, as she was attempting to tell them to follow me, right this way kids. Pt has otherwise been sitting and standing quietly in the day room. Safety maintained.Normal White HospitalNURSNOTEPt woke up and came out of her room. Pt endorsed pain in her right elbow. Pt given prn tylenol and emotional support. Pt currently sitting quietly in the day room. Pt denies any other needs at this time.[facility]30The patient is Moderately Stable - Low [...] allowing vitals twice daily Outcome: ProgressingNormalUniversity of [facility]30The patient is Moderately Stable - Low [...] allowing vitals twice daily Outcome: ProgressingNormalUniversity of [facility]94on Group Topic: Activity Therapy Group Date: 06/27/2024 Start Time: 1400 End Time: 1600 Facilitators: JONATHAN Jorge Department: [facility] Number of Participants: 8 Group Focus: communication, concentration, family, feeling awareness/expression, leisure skills, problem solving, reminiscence, and social skills Treatment Modality: Leisure Development and Patient-Centered Therapy Interventions utilized were active listening, leisure development, problem solving, reminiscence, story telling, and support Purpose: express feelings, improve communication skills, and increase insight or knowledge Name: Donnie Bullock Date of : 1955 MR: [id number] Level of Participation: moderate Quality of Participation: [...] Personal history of COVID-19 Mixed hyperlipidemiaNormalUniversity of [facility]94Group Topic: Activity Therapy Group Date: 06/27/2024 Start Time: 0940 End Time: 1140 Facilitators: JONATHAN Jorge Department: [facility] Number of Participants: 5 Group [...] Donnie Bullock Date of : 1955 MR: [id number] Level of Participation: moderate Quality of Participation: [...] Personal history of COVID-19 Mixed hyperlipidemiaNormalUniversity of [facility]94Group Topic: Insight Group Date: 06/27/2024 Start Time: 1015 End Time: 1100 Facilitators: MINDY Hunt Department: [facility] Number of Participants: 3 Group Focus: check in, clarity of thought, feeling awareness/expression, and self-awareness Treatment Modality: Individual Therapy, Interpersonal Therapy, and Psychodynamic Psychotherapy Interventions utilized were active listening, clarification, confrontation, exploration, orientation, reality testing, and support Purpose: express feelings Name: Donnie Bullock Date of : 1955 MR: [id number] Level of Participation: Pt was talking with staff Plan: patient will be encouraged to participate in future groups Patients Problems: Patient Active Problem List Diagnosis Neurocognitive disorder with Lewy bodies (CMS/HCC) Slow transit constipation Visual hallucinations Paroxysmal supraventricular tachycardia (CMS/HCC) Personal history of COVID-19 Mixed hyperlipidemiaNormalUniversity of Parkview Regional HospitalNURSNOTEon [id number] up ad lynne on unit at shift [...] or issues to report. Safety checks maintained.Normal [facility] HospitalNURSNOTEPatient alert and oriented x2-4, pleasant and cooperative with staff respiratory therapist, medication administration and ADLs. rated her depression [...] shift. Safety checks maintained per unit policy.Normal White HospitalNURSNOTEPt has slept for 6 hours overnight. No negative behaviors to note. Pt is currently in room sitting on the side of bed quietly. Safety checks maintained. NormalUniversity of Bacon Medical Hyufvt89uc [id number]: Anxiety Goal: LTG-Overall frequency and intensity of [...] for the shift include maintain safetyNormalUniversity of [facility]94on [id number] Topic: Activity Therapy Group Date: 06/26/2024 Start Time: 1400 End Time: 1530 Facilitators: JONATHAN Jorge Department: [facility] Number of Participants: 6 Group Focus: communication, concentration, feeling awareness/expression, leisure skills, problem solving, reminiscence, and social skills Treatment Modality: Leisure Development and Patient-Centered Therapy Interventions utilized were active listening, group exercise, leisure development, reminiscence, story telling, and support Purpose: enhance coping skills, express feelings, and improve communication skills Name: Donnie Bullock Date of : 1955 MR: [id number] Level of Participation: moderate Quality of Participation: [...] Personal history of COVID-19 Mixed hyperlipidemiaNormalUniversity of [facility]94Group Topic: Process Group Date: 06/26/2024 Start Time: 1015 End Time: 1100 Facilitators: BRTI Thakkar Department: [facility] [employer] [facility] Number of Participants: 5 Group Focus: check in, coping skills, and reminiscence During group RT was present and she was also engaging with patients. Interventions utilized were active listening, exploration, reminiscence, and support Purpose: enhance coping skills and express feelings Name: Donnie Bullock Date of : 1955 MR: [id number] Level of Participation: minimal Quality of Participation: exacerbation of symptoms Interactions with others: intrusive Mood/Affect: blunted Cognition: confused Plan: patient will be encouraged to engage in groups Patients Problems: Patient Active Problem List Diagnosis Neurocognitive disorder with Lewy bodies (CMS/HCC) Slow transit constipation Visual hallucinations Paroxysmal supraventricular tachycardia (CMS/HCC) Personal history of COVID-19NormalUniversity of [facility]94Group Topic: Activity Therapy Group Date: 06/26/2024 Start Time: 944 End Time: 1134 Facilitators: JONATHAN Jorge Department: [facility] Number of Participants: 5 Group Focus: check in, communication, family, feeling awareness/expression, leisure skills, reminiscence, and social skills Treatment Modality: Leisure Development and Patient-Centered Therapy Interventions utilized were active listening, leisure development, reminiscence, story telling, and support Purpose: express feelings, improve communication skills, and increase insight or knowledge Name: Donnie Bullock Date of : 1955 MR: [id number] Level of Participation: withdrawn Response: Pt. Did [...] tachycardia (CMS/HCC) Personal history of COVID-19NormalUniversity of Parkview Regional HospitalNURSNOTEon [id number] alert calm and pleasant. Pt sitting in room alone. Pt appears depressed but mood brightened with approach. Pt became tearful during conversation regarding her because she misses him. Pt rated anxiety at 7 and depression at 8 with 10 being the worst. Pt denies SI/HI and AVH. Safety checks maintained. [facility] HospitalNURSNOTEPatient denies SI, HI, and AVH. Patient [...] in the dayroom along with the other patients.[facility] HospitalNURSNOTEPt participating in Rec Therapy along with other patients.[facility] HospitalNURSNOTEPt out in the dayroom with other patients during lunch.[facility] HospitalNURSNOTEPt awoken for AM programming and was [...] maintained and redirection offered by staff during shift.[facility] HospitalNURSNOTEAs of 0530, patient has slept a total of 8 hours. Patient woke up 3 times throughout the night needing reorientation and redirection back to her assigned bed. Patient is currently resting in her assigned room.[facility] HospitalNURSNOTEPatient was in the day area talking to a peer at shift change. Shortly after report, patient began wandering and was exit-seeking. Package Dyer attempted to reorient patient and let her know her left a message with her. Patient informed poem writer that her is mad at him due [...] her memory. Patient endorses increased confusion lately. Package Dyer was unable to assess for psychosocial elements outside of the patient denying SI. Patient has not been witnessed responding to internal stimuli this shift. Patient retired to her room shortly after snack and began to rest. She is currently in her assigned bed not exhibiting any signs of distress. [facility]30on [id number] patient's goals for the shift was to stay busy. The clinical goals for the shift include safety and rest. Over the shift, the patient made progress toward the following goals: Problem: Anxiety Goal: STG-Cooperates with evaluations from physicians/RNs Outcome: Progressing Problem: Confusion Goal: LTG-Take medications as prescribed Outcome: Progressing Problem: Psychotic Symptoms Goal: LTG-Return to less restricted environment Outcome: ProgressingNormalUniversity of [facility]30The patient is Moderately Stable - Low risk of patient condition declining or worsening The patient's goals for the shift include keep occupied The clinical goals for the shift include safetyNormalUniversselect medical [facility]30Writer was unable to assess for patient shift goal. The clinical goals for the shift include safety and rest. Over the shift, the patient made progress toward the following goals: Problem: Anxiety Goal: STG-Cooperates with evaluations from physicians/RNs Outcome: Progressing Problem: Confusion Goal: LTG-Take medications as prescribed Outcome: ProgressingNormalUniAvita Health [facility]94on Group Topic: Activity Therapy Group Date: 06/25/2024 Start Time: 09 End Time: 1000 Facilitators: JONATHAN Carr Department: [facility] Number of Participants: 6 Group Focus: affirmation, [...] Donnie Bullock Date of : 1955 MR: [id number] Level of Participation: active Quality of Participation: cooperative and engaged Interactions with others: gave feedback Mood/Affect: appropriate Progress: Gaining insight or knowledge Response: Pt. Engaged in art group alongside DIGITAL INTERN and peers. Pt. Participated in group discussion when prompted by peers. Pt. Required assistance but remained appropriate throughout group. Plan: Pt. Will be encouraged to continue attending therapeutic recreation interventions with the DIGITAL INTERN and peers while on the unit. Patients Problems: Patient Active Problem List Diagnosis Neurocognitive disorder with Lewy bodies (CMS/HCC) Slow transit constipation Visual hallucinations Paroxysmal supraventricular tachycardia (CMS/HCC) Personal history of COVID-19NormalUniversity of Parkview Regional HospitalNURSNOTEon [id number] calm and cooperative today. She is withdrawn, walking the unit, sitting in her room, or sitting in the dayroom, not interacting with peers. She takes her medications as prescribed. She is pleasant and interacts when spoken to but does not initiate conversation. Safety maintained.[facility] HospitalNURSNOTEAs of 0530, patient has slept a total of 5 hours. Patient woke up at least 5 times throughout the night needing reorientation and redirection back to her assigned bed. Patient began exit-seeking at one point but was redirectable. Patient is currently resting in her assigned room.[facility] HospitalNURSNOTEPatient was resting in bed at change [...] currently hospitalized for issues with her memory. Package Dyer was unable to assess for psychosocial elements [...] bed not exhibiting any signs of distress.[id number] was unable to assess for a shift goal. The clinical goals for the shift include safety and rest. Over the shift, the patient made progress toward the following goals: Problem: Anxiety Goal: LTG-Overall frequency and intensity of anxiety symptoms decrease Outcome: Progressing Problem: Confusion Goal: LTG-Take medications as prescribed Outcome: ProgressingNormalUniversity of [facility]94 Group Topic: Exercise Group Date: 06/24/2024 Start Time: 0900 End Time: 949 Facilitators: Josi Astorga DIGITAL INTERN Department: [facility] Number of Participants: 6 Group [...] Donnie Bullock Date of : 1955 MR: [id number] Level of Participation: active Quality of Participation: cooperative and quiet Interactions with others: minimal Mood/Affect: appropriate Progress: Gaining insight or knowledge Response: Pt. Engaged in exercise group alongside DIGITAL INTERN and peers. Pt. Participated in group activity with peers while focusing on stretching and mindfulness discussions. Plan: Pt. Will be encouraged to continue attending therapeutic recreation interventions with the DIGITAL INTERN and peers while on the unit. Patients Problems: Patient Active Problem List Diagnosis Neurocognitive disorder with Lewy bodies (CMS/HCC) Slow transit constipation Visual hallucinations Paroxysmal supraventricular tachycardia (CMS/HCC) Personal history of COVID-19NormalUniversity of Parkview Regional HospitalNURSNOTEon [id number]. Wandering from bedroom to nurse in day room asking when she will be going to meet her . Emotional support given and easily redirected frequently. Staff continues to monitor for safety and redirect as needed.NormalUnMcCullough-Hyde Memorial HospitalNURSNOTEPt. Up ad lynne in day room. Compliant with breakfast after staff set up. Pt. Verbalized she did have a hard stool this morning and accepting of PO PRN miralax with medication administration. Pt. Oriented to self and only. Assessment completed and monitoring for safety this shift. No behaviors noted, some wandering but no exit seeking. Occasionally socializing with peers in day room.NormalUnMcCullough-Hyde Memorial HospitalNURSNOTEAs of 0530, patient has slept a total of 6.75 hours. Patient continues to sleep in blocks with intermittent waking where she is disoriented and easily redirected back to her assigned bed. Patient is currently resting not exhibiting any signs of distress.[facility] HospitalNURSNOTEPatient was resting in bed at change of shift. Patient was calm and cooperative with assessment for the most part despite endorsing being tired. Patient is A&O x 1 but will cooperate when reoriented that she is currently hospitalized for issues with her memory. Package Dyer was unable to assess for psychosocial elements [...] assigned bed not exhibiting any signs of distress.[facility]30on [id number]: Constipation Goal: STG-Regular elimination pattern by discharge [...] STG-Regular elimination pattern by discharge Outcome: Not ProgressingNormalUniversity [facility]94on 06-23-2024 94Group Topic: Activity Therapy Group Date: 06/23/2024 Start Time: 1440 End Time: 1555 Facilitators: JONATHAN Jorge Department: [facility] Number of Participants: 4 Group Focus: communication, concentration, coping skills, family, feeling awareness/expression, leisure skills, reminiscence, and social skills Treatment Modality: Leisure Development and Patient-Centered Therapy Interventions utilized were active listening, leisure development, reminiscence, story telling, and support Purpose: enhance coping skills, express feelings, improve communication skills, and increase insight or knowledge Name: Donnie Bullock Date of : 1955 MR: [id number] Level of Participation: withdrawn Response: Pt. Did not participate in the group activity. Plan: Pt will be encouraged to participate in recreational therapy groups and activities. Patients Problems: Patient Active Problem List Diagnosis Neurocognitive disorder with Lewy bodies (CMS/HCC) Slow transit constipation Visual hallucinations Paroxysmal supraventricular tachycardia (CMS/HCC) Personal history of COVID-19NormalUniversity of [facility]94 Attestation signed by MINDY Hunt at 06/23/2024 4:16 PM I agree with the content of this note and have no current revisions. Group Topic: Coping Skills Group Date: 06/23/2024 Start Time: 1330 End Time: 1415 Facilitators: Mindy Weinstein; Lissy Littlejohn LPCC Department: [facility] [facility] Number of Participants: 4 Group Focus: anxiety, check in, coping skills, feeling awareness/expression, and self-awareness Treatment Modality: Patient-Centered Therapy Interventions utilized were active listening, exploration, and support Purpose: enhance coping skills, express feelings, and relapse prevention strategies Name: Donnie Bullock Date of : 1955 MR: [id number] Level of Participation: patient was practicing a relaxation technique in her room Plan: patient will be encouraged to participate in future groups Patients Problems: Patient Active Problem List Diagnosis Neurocognitive disorder with Lewy bodies (CMS/HCC) Slow transit constipation Visual hallucinations Paroxysmal supraventricular tachycardia (CMS/HCC) Personal history of COVID-19NormalUniversity of [facility]94Group Topic: Activity Therapy Group Date: 06/23/2024 Start Time: 1000 End Time: 1135 Facilitators: AYSE JorgeS Department: [facility] Number of Participants: 5 Group Focus: check in, communication, family, feeling awareness/expression, leisure skills, reminiscence, and social skills Treatment Modality: Leisure Development and Patient-Centered Therapy Interventions utilized were active listening, leisure development, reminiscence, and story telling Purpose: express feelings and improve communication skills Name: Donnie Bullock Date of : 1955 MR: [id number] Level of Participation: withdrawn Response: Pt. Did not participate in the group activity. Plan: Pt will be encouraged to participate in recreational therapy groups and activities. Patients Problems: Patient Active Problem List Diagnosis Neurocognitive disorder with Lewy bodies (CMS/HCC) Slow transit constipation Visual hallucinations Paroxysmal supraventricular tachycardia (CMS/HCC) Personal history of COVID-19NormalUniversity of [facility]94Group Topic: Occupational Therapy Group Date: 06/23/2024 Start Time: 0930 End Time: 1010 Facilitators: Ana Bryant OT Department: [facility] Number of Participants: 4 Group [...] Donnie Bullock Date of : 1955 MR: [id number] Level of Participation: Patient did not participate in OT group today. Patients Problems: Patient Active Problem List Diagnosis Neurocognitive disorder with Lewy bodies (CMS/HCC) Slow transit constipation Visual hallucinations Paroxysmal supraventricular tachycardia (CMS/HCC) Personal history of COVID-19NormalUniversity of Parkview Regional HospitalNURSNOTEon [id number] denies SI, HI and AVH at this time. Pt denies pain at this time. Today, patient had a good visit with her , Vimal. No signs of distress. Pt has been cooperative with staff and peers. Currently, patient is eating dinner in the dayroom along with other patient.[facility] NURSNOTEPt visiting with her in her bedroom.[facility] HospitalNURSNOTEPatient finished washing self without incident. Package Dyer placed patient's clothes in the washer.[facility] HospitalNURSNOTEPatient is washing self at the bathroom sink in her bedroom. Then will change into her clean clothes. Patient refused assistance from poem writer. Towels, fresh absorbant under garment, and washcloths at sink for patient.[facility] HospitalNURSNOTEPatient ambulating in the unit hallway per self. [facility] HospitalNURSNOTEProvider at bedside speaking with pt.[facility] HospitalNURSNOTEPt awoken for AM programming and was [...] the shift. Q 15 min safety checks maintained.[facility] HospitalNURSNOTEPt slept approximately 5.5 hours last night. No behaviors or issues to report at this time. Safety checks maintained.[facility] NURSNOTEPt UA was collected at 0300.[facility] NURSNOTEPRN Seroquel 25 mg deemed to be effective. Pt did rest in bed for approximately 3 hours. Pt back up confused looking for her room again.[facility] HospitalURINALYSIS WITH REFLEX CULTUREon [id number], TOTAL PRESENCE IN URINENegativeNormalNegativeWhite Hospital Comment on above:Order Comment: Microscopics not performed on urines with negative chemical reactions unless requested on original order.Performed By: #### [id number] #### [facility] (AKER) [address], [place] [address]Jgyopsb (U)ClearNormalClearWhite Hospital Comment on above:Order Comment: Microscopics not performed on urines with negative chemical reactions unless requested on original order.Performed By: #### [id number] #### [facility] (BEAKER) [address], [place] [address]Smbbf (U)Light-YellowNormalColorless, Yellow, Light-Yellow White HospitalComment on above:Order Comment: Microscopics not performed on urines with negative chemical reactions unless requested on original order.Performed By: #### [id number] #### [facility] (BE[facility]ER) [address], [place] [address]EZCRBXL (MG/DL) IN URINENormalNormalNormalUniAvita Health System Ontario HospitalComment on above:Order Comment: Microscopics not performed on urines with negative chemical reactions unless requested on original order. Performed By: #### [id number] #### [facility] ([facility]) [address] [place], [place] [id number] PRESENCE IN URINENegativeNormazNegativeUnMcCullough-Hyde Memorial HospitalComment on above:Order Comment: Microscopics not performed on urines with negative chemical reactions unless requested on original order. Performed By: #### [id number] #### [facility] ([facility]) [address] [place], [place] [address]Krtwonz Ql (U)NegativeNormalNegativeUnMcCullough-Hyde Memorial HospitalComment on above:Order Comment: Microscopics not performed on urines with negative chemical reactions unless requested on original order.Performed By: #### [id number] #### [facility] ([facility]) [address] [place], [place] [address]JEUHBURLO ESTERASE PRESENCE IN URINE BY TEST STRIPNegativeNormal NegativeUnMcCullough-Hyde Memorial HospitalComment on above:Order Comment: Microscopics not performed on urines with negative chemical reactions unless requested on original order.Performed By: #### [id number] #### [facility] ([facility]) [address] [place], [place] [address]FWFMWVK PRESENCE IN URINENegativeNormazNegativeUnMcCullough-Hyde Memorial HospitalComment on above:Order Comment: Microscopics not performed on urines with negative chemical reactions unless requested on original order. Performed By: #### [id number] #### [facility] ([facility]) [address] [place], [place] [address]qU (U)5.5 [pH]Normal5.0-8.0UnMcCullough-Hyde Memorial Hospital Comment on above:Order Comment: Microscopics not performed on urines with negative chemical reactions unless requested on original order.Performed By: #### [id number] #### [facility] ([facility]) [address] [place], [place] [address]Lxnudnv (U) [Mass/Vol]NegativeNormalNegativeUnMcCullough-Hyde Memorial HospitalComment on above:Order Comment: Microscopics not performed on urines with negative chemical reactions unless requested on original order. Performed By: #### [id number] #### [facility] ([facility]ER) [address] [place], [place] [address]Bfgvksyn gravity (U) [Rel density]1.565Llhfrb1.010-1.030 White HospitalComment on above:Order Comment: Microscopics not performed on urines with negative chemical reactions unless requested on original order.Performed By: #### [id number] #### [facility] ([facility]) [address], [place] [id number] (MG/DL) IN URINENormalNormalNormalUniversOhioHealth Mansfield HospitalComment on above:Order Comment: Microscopics not performed on urines with negative chemical reactions unless requested on original order. Performed By: #### [id number] #### [facility] ([facility]) [address], [place] [id number] [id number] patient is Unstable - High likelihood or risk of patient condition declining or worsening The patient's goals for the shift include to see Vimal The clinical goals for the shift include safety, comfort Problem: Confusion Goal: LTG-Interact appropriately within social settings Outcome: Progressing Problem: Depression Goal: LTG-Demonstrate elevation in mood Outcome: Not ProgressingBrecksville VA / [facility]30The patient is Moderately Stable - Low [...] prescribed Outcome: Progressing Goal: LTG-Decrease hallucinations/delusions/paranoia Outcome: ProgressingVidant Pungo HospitalniAvita Health System [facility] Hospital94on Group Topic: Activity Therapy Group Date: 06/22/2024 Start Time: 1400 End Time: 1540 Facilitators: JONATHAN Jorge Department: [facility] Number of Participants: 3 Group Focus: concentration, family, feeling awareness/expression, leisure skills, problem solving, reminiscence, and social skills Treatment Modality: Leisure Development and Patient-Centered Therapy Interventions utilized were active listening, leisure development, problem solving, reminiscence, story telling, and support Purpose: express feelings, improve communication skills, and increase insight or knowledge Name: Donnie Bullock Date of : 1955 MR: [id number] Level of Participation: refused Response: Pt. Refused to participate in the group activity. Plan: Pt will be encouraged to participate in recreational therapy groups and activities. Patients Problems: Patient Active Problem List Diagnosis Neurocognitive disorder with Lewy bodies (CMS/HCC) Slow transit constipation Visual hallucinations Paroxysmal supraventricular tachycardia (CMS/HCC) Personal history of COVID-19NormalUniversity of [facility]94Group Topic: Activity Therapy Group Date: 06/22/2024 Start Time: 1015 End Time: 1145 Facilitators: Miladys Kaplan DIGITAL INTERN Department: [facility] Number of Participants: 3 Group [...] Donnie Bullock Date of : 1955 MR: [id number] Level of Participation: withdrawn Response: Pt. Did not participate in the group activity. Plan: Pt will be encouraged to participate in recreational therapy groups and activities. Patients Problems: Patient Active Problem List Diagnosis Neurocognitive disorder with Lewy bodies (CMS/HCC) Slow transit constipation Visual hallucinations Paroxysmal supraventricular tachycardia (CMS/HCC) Personal history of COVID-19NormalUniversity of [facility]94Group Topic: Activity Therapy Group Date: 06/22/2024 Start Time: 0900 End Time: 0945 Facilitators: Jessica Pulido DIGITAL INTERN Department: [facility] Number of Participants: 3 Group Focus: check in, clarity of thought, communication, concentration, problem solving, self-awareness, self-esteem, and social skills Treatment Modality: Patient-Centered Therapy Interventions utilized were active listening, clarification, exploration, problem solving, and support Purpose: Pts. Completed [employer] daily crossword and trivia with DIGITAL INTERN. Name: Donnie Bullock Date of : 1955 MR: [id number] Level of Participation: withdrawn Quality of Participation: passive Response: Pt. withdrawn during group session. No active participation noted at this time. No active refusal noted. Will continue to encourage active participation in groups with DIGITAL INTERN and peers while on the unit. Plan: Pt. Will be encouraged to continue attending therapeutic recreation interventions with the DIGITAL INTERN and peers while on the unit. Patients Problems: Patient Active Problem List Diagnosis Neurocognitive disorder with Lewy bodies (CMS/HCC) Slow transit constipation Visual hallucinations Paroxysmal supraventricular tachycardia (CMS/HCC) Personal history of COVID-19NormalUniversity of Parkview Regional HospitalNMEMORIAL MEDICAL CENTERNOTEon [id number] ran out of her bedroom screaming that my window just blew out didn't you hear the noise. I'm never going back into that room. Package Dyer, ct assess windows were still intact. PRN Seroquel 25 mg was given.[facility] HospitalNMEMORIAL MEDICAL CENTERNOTEPt calm and cooperative with assessment and HS [...] constantly being re-directed by staff. Safety checks maintained.[facility] was approached by pt's in the hallway. The pt's shared a few concerns and comments which was relayed to the primary nurse. One of the concerns was to have the provider to call him with updates on Wednesday concerning his .[facility] HospitalMariluMEMORIAL MEDICAL CENTERRinaent's visited during visitation hours today and poem writer observed patient and her walking around the unit. Patient currently attending dinner in the day room and observed socializing with other patients. Patient expressed that she was having anxiety earlier in the afternoon (see MAR). Patient pleasant and calm at this time. Safety checks continued.[facility] HospitalNURSNOTEPatient observed wandering in and out of her [...] needs at this time. Safety checks continued.[facility] HospitalNURSNOTEPt slept approximately 6 hours last night. No behaviors or issues to report at this time. Safety checks maintained.[facility]30 on [id number] patient is Moderately Unstable - Medium risk of patient condition declining or worsening The patient's goals for the shift include rest The clinical goals for the shift include safety/comfort Problem: Confusion Goal: LTG-Take medications as prescribed Outcome: Progressing Problem: Psychotic Symptoms Goal: LTG-Alleviate psychotic symptoms Outcome: ProgressingNormalUniversity of [facility]94on Group Topic: Activity Therapy Group Date: 06/21/2024 Start Time: 1420 End Time: 1550 Facilitators: JONATHAN Jorge Department: [facility] Number of Participants: 4 Group Focus: concentration, feeling awareness/expression, leisure skills, problem solving, reminiscence, and social skills Treatment Modality: Leisure Development and Patient-Centered Therapy Interventions utilized were active listening, leisure development, reminiscence, story telling, and support Purpose: express feelings, improve communication skills, and increase insight or knowledge Name: Donnie Bullock Date of : 1955 MR: [id number] Level of Participation: refused Response: Pt. Refused to participate in the group activity. Plan: Pt will be encouraged to participate in recreational therapy groups and activities. Patients Problems: Patient Active Problem List Diagnosis Neurocognitive disorder with Lewy bodies (CMS/HCC) Slow transit constipation Visual hallucinations Paroxysmal supraventricular tachycardia (CMS/HCC) Personal history of COVID-19NormalUniversselect medical [facility] of [facility]94Group Topic: Activity Therapy Group Date: 06/21/2024 Start Time: 944 End Time: 1135 Facilitators: JONATHAN Jorge Department: [facility] Number of Participants: 6 [...] Donnie Bullock Date of : 1955 MR: [id number] Level of Participation: withdrawn Response: Pt. Did not participate in the group activity. Plan: Pt will be encouraged to participate in recreational therapy groups and activities. Patients Problems: Patient Active Problem List Diagnosis Neurocognitive disorder with Lewy bodies (CMS/HCC) Slow transit constipation Visual hallucinations Paroxysmal supraventricular tachycardia (CMS/HCC) Personal history of COVID-19NormalUniversity of Parkview Regional HospitalNMEMORIAL MEDICAL CENTERNOTEon [id number] was sitting calmly in the dayroom at [...] to report at this time. Safety checks maintained.[facility] HospitalNMEMORIAL MEDICAL CENTERNOTE Patient walked unit with during visitation. Visit went well . Patient co-operative with meds and conversation. Steady on her feet. Ate fair for dinner. Patient complained of feeling constipated, prn miralax given.[facility] HospitalNURSNOTEPatient came up to poem writer saying there was a man in her bed. Package Dyer looked there was no one in her bed. I don`t know if she looked in the room next to her or actually thought she saw someone. Patient laid down when she realized it was safe.[facility] HospitalNURSNOTEPatient standing in doorway looking lost. Patient said `I seen a book so I thought I was at the library.` Reoriented patient, encouraged to come out to dayroom. Patient sat with another peer to socialize and help her with her puzzle.[facility] HospitalNURSNOTEPt slept approximately 7 hours last night. No behaviors or issues to report at this time. Safety checks maintainedNormalUniversselect medical specialty [facility] of [facility] NURSNOTEPt wandering around the unit into [...] but visual hallucinations are present. Safety checks maintained.[facility]30on [id number] patient is Moderately Unstable - Medium risk of patient condition declining or worsening The patient's goals for the shift include rest The clinical goals for the shift include safety Problem: Anxiety Goal: LTG-Decrease worry of fearful thoughts and/or behaviors Outcome: Not Progressing Problem: Confusion Goal: LTG-Interact appropriately within social settings Outcome: Not ProgressingNormalUniversity of [facility]30Problem: Anxiety Goal: STG-Will not pace the floor more than 10 per shift Outcome: Progressing Problem: Confusion Goal: LTG-Demonstrates an improvement in impulsive behaviors Outcome: Progressing Problem: Confusion Goal: STG-Engages in social situations appropriately 3 per shift Outcome: Not ProgressingNormalUniversity of [facility]94on 06-20-2024 94Group Topic: Activity Therapy Group Date: 06/20/2024 Start Time: 1400 End Time: 1530 Facilitators: JONATHAN Jorge Department: [facility] Number of Participants: 4 Group Focus: communication, concentration, feeling awareness/expression, leisure skills, reminiscence, and social skills Treatment Modality: Leisure Development and Patient-Centered Therapy Interventions utilized were active listening, leisure development, problem solving, reminiscence, story telling, and support Purpose: express feelings, improve communication skills, and increase insight or knowledge Name: Donnie Bullock Date of : 1955 MR: [id number] Level of Participation: withdrawn Response: Pt. Did not participate in the group activity. Plan: Pt will be encouraged to participate in recreational therapy groups and activities. Patients Problems: Patient Active Problem List Diagnosis Neurocognitive disorder with Lewy bodies (CMS/HCC) Slow transit constipation Visual hallucinations Paroxysmal supraventricular tachycardia (CMS/HCC) Personal history of COVID-19NormalUniversity of [facility]94Group Topic: Process Group Date: 06/20/2024 Start Time: 1015 End Time: 1100 Facilitators: BRIT Thakkar Department: [facility] [employer] Number of Participants: 2 Group Focus: check in, other working with RT, and reminiscence Interventions utilized were active listening, clarification, other alternative group using therapeutic games, and reminiscence Purpose: enhance coping skills, express feelings, and engaging in therapeutic games. Name: Donnie Bullock Date of : 1955 MR: [id number] Level of Participation: withdrawn to room Plan: patient will be encouraged to engage in activities Patients Problems: Patient Active Problem List Diagnosis Neurocognitive disorder with Lewy bodies (CMS/HCC) Slow transit constipation Visual hallucinations Paroxysmal supraventricular tachycardia (CMS/HCC) Personal history of COVID-19NormalUniversity of [facility]94Group Topic: Activity Therapy Group Date: 06/20/2024 Start Time: 0930 End Time: 1130 Facilitators: JONATHAN Jorge Department: [facility] Number of Participants: 7 Group [...] Donnie Bullock Date of : 1955 MR: [id number] Level of Participation: withdrawn Response: Pt. Did not participate in the group activity. Plan: Pt will be encouraged to participate in recreational therapy groups and activities. Patients Problems: Patient Active Problem List Diagnosis Neurocognitive disorder with Lewy bodies (CMS/HCC) Slow transit constipation Visual hallucinations Paroxysmal supraventricular tachycardia (CMS/HCC) Personal history of COVID-19NormalUniversselect medical specialty [facility] of [facility] HospitalNURSNOTEon [id number] slept intermittently about 4.5 hours last night. Patient walking around unit occasionally. No behaviors or issues to report at this time. Safety checks maintained.[facility]30on [id number] patient is Moderately Stable - Low risk [...] Goal: STG-Willingly allowing vitals twice daily Outcome: ProgressingNormalUnichristus [facility] of [facility]30The patient is Moderately Stable - Low [...] LTG-Engage in self care as tolerated Outcome: ProgressingNormProtestant Hospitalnichristus [facility] of [facility]30The patient is Moderately Unstable - Medium risk of patient condition declining or worsening The patient's goals for the shift include PEYTON The clinical goals for the shift include rapport/safety/rest Problem: Psychotic Symptoms Goal: LTG-Take medications as prescribed Outcome: Progressing Problem: Depression Goal: LTG-Demonstrate elevation in mood Outcome: Not ProgressingBrecksville VA / [facility] Hospital94on 06-19-2024 94Group Topic: Coping Skills Group Date: 06/19/2024 Start Time: 1015 End Time: 1100 Facilitators: BRIT Thakkar Department: [facility] [employer] [facility] Number of Participants: 6 Group Focus: check in and coping skills alternative was engaging with other staff and/or relaxing Interventions utilized were active listening, exploration, reminiscence, and support Purpose: enhance coping skills and trigger / craving management Name: Donnie Bullock Date of : 1955 MR: [id number] Level of Participation: wandering around Plan: patient will be encouraged to engage in groups Patients Problems: Patient Active Problem List Diagnosis Neurocognitive disorder with Lewy bodies (CMS/HCC) Slow transit constipation Visual hallucinations Paroxysmal supraventricular tachycardia (CMS/HCC) Personal history of COVID-19NormalUniversity of [facility]94Group Topic: Life Skills/Enrichment Group Date: 06/19/2024 Start Time: 1100 End Time: 1145 Facilitators: Cydney Peacock OT Department: [facility] Number of Participants: 8 Group Focus: check in, feeling awareness/expression, goals/reality orientation, healthy friendships, leisure skills, self-awareness, and self-esteem Treatment Modality: Leisure Development, Patient-Centered Therapy, Skills Training, and Solution-Focused Therapy Interventions utilized were patient education, problem solving, reminiscence, and support Purpose: enhance coping skills, express feelings, regain self-worth, and reinforce self-care Name: Donnie Bullock Date of : 1955 MR: [id number] Level of Participation: withdrawn Quality of Participation: [...] tachycardia (CMS/HCC) Personal history of COVID-19NormalUniversity of [facility]94Group Topic: Relaxation Group Date: 06/19/2024 Start Time: 0900 End Time: 1010 Facilitators: AYSE CarrS Department: [facility] Number of Participants: 6 Group [...] regain self-worth, and reinforce self-care Name: Donnie A Elder Date of : 1955 MR: [id number] Level of Participation: withdrawn Progress: None Response: Pt. Was withdrawn from group. No active participation noted at this time. Plan: Pt. Will be encouraged to attend therapeutic recreation interventions with the DIGITAL INTERN in the future. Patients Problems: Patient Active Problem List Diagnosis Neurocognitive disorder with Lewy bodies (CMS/HCC) Slow transit constipation Visual hallucinations Paroxysmal supraventricular tachycardia (CMS/HCC) Personal history of COVID-19NormalUniversselect medical specialty [facility] of [facility] Clinicson [id number] had family visit during the day; patient observed pacing the halls. Patient attended dinner and was compliant with evening medication. Patient calm, cooperative and pleasant. Patient kept to self and denies any needs at this time. Safety checks continued.[facility] Patient attended breakfast and then returned to her room. Patient cooperative and compliant with morning assessment and medications. Patient stated I've not had much of an appetite since being here . Patient spoke with her on the phone and stated that today she is feeling tired and lazy . Patient denies SI/HI and hallucinations. Patient denies any needs at this time. Safety checks continued.[facility] HospitalNMEMORIAL MEDICAL CENTERNOTEPt slept approximately 5 hours last night. No behaviors or issues to report at this time. Safety checks maintainedNoAshtabula [facility]30on [id number] patient is Moderately Unstable - Medium risk [...] allowing vitals twice daily Outcome: ProgressingNormalUniversity of [facility]94on Group Topic: Activity Therapy Group Date: 06/18/2024 Start Time: 944 End Time: 1124 Facilitators: AYSE JorgeS Department: [facility] Number of Participants: 6 Group Focus: [...] Donnie Bullock Date of : 1955 MR: [id number] Level of Participation: minimal Quality of Participation: [...] tachycardia (CMS/HCC) Personal history of COVID-19NormalUniversity of Parkview Regional HospitalNURSNOTEon [id number] was resting in bed at the beginning [...] doing right now. Where is my room? NormalUnMcCullough-Hyde Memorial HospitalNURSNOTENo real change with patient the rest of [...] unit with every 15 minute checks per policy.[facility] HospitalNURSNOTE Patient sleeps in a little later than [...] safe on unit with every 15 minute checks.[facility] HospitalNURSNOTEPt slept approximately 8 hours last night. Pt did not have any instances of wandering after going to bed for the night. Safety checks maintained.[facility] HospitalNURSNOTEPt resting in bed at shift change. Pt [...] time. Pt denies any needs. Safety checks maintained.[facility]30The patient is Moderately Unstable - Medium risk [...] allowing vitals twice daily Outcome: ProgressingNormalUniversity of [facility]94on Group Topic: Activity Therapy Group Date: 06/17/2024 Start Time: 102 End Time: 1145 Facilitators: JONATHAN Jorge Department: [facility] Number of Participants: 5 Group Focus: check in, communication, concentration, family, feeling awareness/expression, leisure skills, problem solving, reminiscence, and social skills Treatment Modality: Leisure Development and Patient-Centered Therapy Interventions utilized were active listening, leisure development, problem solving, reminiscence, story telling, and support Purpose: express feelings, improve communication skills, and increase insight or knowledge Name: Donnie Bullock Date of : 1955 MR: [id number] Level of Participation: withdrawn Response: Pt. Did not participate in the group activity. Plan: Pt will be encouraged to participate in recreational therapy groups and activities. Patients Problems: Patient Active Problem List Diagnosis Neurocognitive disorder with Lewy bodies (CMS/HCC) Slow transit constipation Visual hallucinations Paroxysmal supraventricular tachycardia (CMS/HCC) Personal history of COVID-19NormalUniversity of Parkview Regional HospitalNURSNOTEon [id number] real change with patient the rest of the day. Ate lunch and dinner well. Compliant with medications. Remains isolative to self but did sit with peers at dinner but did not engage. Patient remains safe on unit with every 15 minute checks per policy.NormalUnMcCullough-Hyde Memorial HospitalNURSNOTEPatient awake and out in dayroom early in shift. Remains isolative to self. Eats breakfast well. Spoke with this morning. Patient speaks with staff vaguely but with no relevance. Patient does not know why she is here and wants to go home. Pt is pleasantly confused with zero behavioral issues and remains safe on unit with every 15 minute checks.NormalUnMcCullough-Hyde Memorial HospitalNURSNOTEPt slept approximately 7 hours last night. No behaviors or issues to report.[facility]30The patient is Moderately Unstable - Medium [...] allowing vitals twice daily Outcome: ProgressingNormalUniversity of [facility]94on Group Topic: Activity Therapy Group Date: 06/16/2024 Start Time: 1400 End Time: 1600 Facilitators: AYSE JorgeS Department: [facility] Number of Participants: 4 Group Focus: communication, concentration, family, feeling awareness/expression, leisure skills, problem solving, reminiscence, and social skills Treatment Modality: Leisure Development and Patient-Centered Therapy Interventions utilized were active listening, leisure development, problem solving, reminiscence, story telling, and support Purpose: express feelings, improve communication skills, and increase insight or knowledge Name: Donnie Bullock Date of : 1955 MR: [id number] Level of Participation: withdrawn Response: Pt. Did not participate in the group activity. Plan: Pt will be encouraged to participate in recreational therapy groups and activities. Patients Problems: Patient Active Problem List Diagnosis Neurocognitive disorder with Lewy bodies (CMS/HCC) Slow transit constipation Visual hallucinations Paroxysmal supraventricular tachycardia (CMS/HCC) Personal history of COVID-19NormalUniversity of [facility]94Group Topic: Relaxation Group Date: 06/16/2024 Start Time: 1015 End Time: 1100 Facilitators: BRIT Thakkar Department: [facility] [employer] [facility] Number of Participants: 1 Group Focus: other relaxation vs game with RT Interventions utilized were support Purpose: assist with relaxation and comfort Name: Donnie Bullock Date of : 1955 MR: [id number] Level of Participation: withdrawn to self and occasionally would wander unit Plan: patient will be encouraged to engage in groups Patients Problems: Patient Active Problem List Diagnosis Neurocognitive disorder with Lewy bodies (CMS/HCC) Slow transit constipation Visual hallucinations Paroxysmal supraventricular tachycardia (CMS/HCC) Personal history of COVID-19NormalUniversity of [facility]94Group Topic: Activity Therapy Group Date: 06/16/2024 Start Time: 1000 End Time: 1140 Facilitators: Miladys Kaplan DIGITAL INTERN Department: [facility] Number of Participants: 11 Group [...] Donnie Bullock Date of : 1955 MR: [id number] Level of Participation: active Quality of Participation: cooperative and engaged Interactions with others: gave feedback Mood/Affect: appropriate Cognition: coherent/clear and goal directed Progress: Gaining insight or knowledge Response: Pt. Actively participated in the [employer] game group. Pt. Independently volunteered to take their turn when DIGITAL INTERN asked who wanted to go next. Pt. [...] tachycardia (CMS/HCC) Personal history of COVID-19NormalUniversity of Parkview Regional HospitalNURSNOTEon [id number] sitting with peers in day room at [...] any needs at this time. Safety checks maintained.[facility] HospitalNURSNOTEPatient cooperative with staff. Patient took all medications as ordered. Patient ate meals well. Patient had periods of time in and out of her room but also remains very withdrawn when not in her room. Does not participate in group or socialize with peers. Pt denies SI,HI, and AV at this time and remains safe on unit with every 15 minute checks per policy.[facility] HospitalNURSNOTEPt slept approximately 7.5 hours last night per the nightly sleep sheet. Pt needed to be redirected less this evening, and continued to be pleasant each time. Safety checks maintained.[facility]30The patient is Moderately Stable - Low risk of patient condition declining or worsening The patient's goals for the shift include rest The clinical goals for the shift include safety/ sleep Problem: Depression Goal: LTG-Engage in self care as tolerated Outcome: Not ProgressingNormalUniversOhioHealth [facility]94on 06-15-2024 94Group Topic: Symptom Recognition Group Date: 06/15/2024 Start Time: 1015 End Time: 1100 Facilitators: MINDY Hunt Department: [facility] [employer] [facility] Number of Participants: 2 Group Focus: anxiety, check in, depression, dual diagnosis, feeling awareness/expression, psychiatric education, and self-awareness Treatment Modality: Individual Therapy, Interpersonal Therapy, Motivational interviewing, and Patient-Centered Therapy Interventions utilized were active listening, clarification, confrontation, exploration, patient education, and support Purpose: express feelings and increase insight or knowledge Name: Donnie Bullock Date of : 1955 MR: [id number] Level of Participation: active Quality of Participation: [...] tachycardia (CMS/HCC) Personal history of COVID-19NormalUniversity of [facility]94Group Topic: Activity Therapy Group Date: 06/15/2024 Start Time: 1100 End Time: 1145 Facilitators: Jessica Pulido DIGITAL INTERN Department: [facility] Number of Participants: 3 Group Focus: check in, clarity of thought, concentration, problem solving, self-awareness, and social skills Treatment Modality: Patient-Centered Therapy Interventions utilized were active listening, clarification, exploration, mental fitness, problem solving, reminiscence, and support Purpose: Pts. Engaged in group trivia with topics including Music, Movies, and Pop Culture for the 1949s, 1960s, and . Name: Donnie Bullock Date of : 1955 MR: [id number] Level of Participation: active Quality of Participation: attentive, cooperative, and engaged Response: Pt. Attended group with DIGITAL INTERN and peers at this time. Pt. Integrated well into group setting, and was engaged with DIGITAL INTERN and peers, while offering appropriate insight into group discussion. Plan: Pt. Will be encouraged to continue attending therapeutic recreation interventions with the DIGITAL INTERN and peers while on the unit. Patients Problems: Patient Active Problem List Diagnosis Neurocognitive disorder with Lewy bodies (CMS/HCC) Slow transit constipation Visual hallucinations Paroxysmal supraventricular tachycardia (CMS/HCC) Personal history of COVID-19NormalUniversity of [facility]94Group Topic: Reminiscence Group Date: 06/15/2024 Start Time: 0900 End Time: 1000 Facilitators: Josi Astorga DIGITAL INTERN Department: [facility] Number of Participants: 0 Group [...] Donnie Bullock Date of : 1955 MR: [id number] Level of Participation: withdrawn Progress: None Response: Pt. Was withdrawn from group. No active participation noted at this time. Plan: Pt. Will be encouraged to attend therapeutic recreation interventions with the DIGITAL INTERN in the future. Patients Problems: Patient Active Problem List Diagnosis Neurocognitive disorder with Lewy bodies (CMS/HCC) Slow transit constipation Visual hallucinations Paroxysmal supraventricular tachycardia (CMS/HCC) Personal history of COVID-19NormalUniversity of Parkview Regional HospitalNMEMORIAL MEDICAL CENTERNOTEon [id number] walking around unit at shift change. Pt [...] assigned bed at this time. Safety checks maintained.[facility] HospitalNURSNOTEPT doing well today. PT reports slept well, feeling well, denies any pain/discomfort. PT ate well at breakfast and lunch. PT compliant with all medication. PT denies any thoughts of harming self or others. Denies any hallucinations. PT has been calm and cooperative, friendly. PT is A/O x3 Disoriented to situation. PT is currently sleeping in dayroom. PT remains safe and free from harm.[facility] HospitalNURSNOTEPT c/o headache. Stated it started this am but continues to worsen. TYL to be given PRN. PT denies any injury, nausea/vomiting. Vitals WNLNSamaritan North Health CenterNURSNOTEPt slept approximately 6.25 hours per the nightly sleep sheet. Pt needed redirected back to her room a couple times last night. Pt would wake up to use the restroom, and then would forget where her room is. Pt was easily redirected back to bed each time, and was thankful for the assistance. Safety checks maintained.[facility]94on [id number] Topic: Activity Therapy Group Date: 06/14/2024 Start Time: 1400 End Time: 1600 Facilitators: AYSE JrogeS Department: [facility] Number of Participants: 6 Group Focus: communication, concentration, family, feeling awareness/expression, leisure skills, problem solving, reminiscence, and social skills Treatment Modality: Leisure Development and Patient-Centered Therapy Interventions utilized were active listening, leisure development, problem solving, reminiscence, story telling, and support Purpose: express feelings, improve communication skills, and increase insight or knowledge Name: Donnie Bullock Date of : 1955 MR: [id number] Level of Participation: withdrawn Response: Pt. Did not participate in the group activity. Plan: Pt will be encouraged to participate in recreational therapy groups and activities. Patients Problems: Patient Active Problem List Diagnosis Neurocognitive disorder with Lewy bodies (CMS/HCC) Slow transit constipation Visual hallucinations Paroxysmal supraventricular tachycardia (CMS/HCC) Personal history of COVID-19NormalUniversity of [facility]94Group Topic: Activity Therapy Group Date: 06/14/2024 Start Time: 0940 End Time: 1210 Facilitators: Miladys Kaplan [facility] Department: [facility] Number of Participants: 5 Group Focus: check in, communication, concentration, family, feeling awareness/expression, leisure skills, problem solving, reminiscence, and social skills Treatment Modality: Leisure Development and Patient-Centered Therapy Interventions utilized were active listening, leisure development, problem solving, reminiscence, story telling, and support Purpose: express feelings, improve communication skills, and increase insight or knowledge Name: Donnie Bullock Date of : 1955 MR: [id number] Level of Participation: withdrawn Response: Pt. Did not participate in the group activity. Plan: Pt will be encouraged to participate in recreational therapy groups and activities. Patients Problems: Patient Active Problem List Diagnosis Neurocognitive disorder with Lewy bodies (CMS/HCC) Slow transit constipation Visual hallucinations Paroxysmal supraventricular tachycardia (CMS/HCC) Personal history of COVID-19NormalUniversity of Park[facility]94Group Topic: Process Group Date: 06/14/2024 Start Time: 1015 End Time: 1100 Facilitators: Lissy Littlejohn [facility] Department: [facility] Number of Participants: 3 Group Focus: check in and other getting to know you : alternative was playing cards with other staff and peers. Interventions utilized were assignment, exploration, and support Purpose: enhance coping skills, express feelings, and express reasons for admission and thought behind it. Name: Donnie Bullock Date of : 1955 MR: [id number] Level of Participation: walking the unit and then laying down Plan: patient will be encouraged to participate in activities Patients Problems: Patient Active Problem List Diagnosis ??? Neurocognitive disorder with Lewy bodies (CMS/HCC) ??? Slow transit constipation ??? Visual hallucinations ??? Paroxysmal supraventricular tachycardia (CMS/HCC) ??? Personal history of COVID-19NormalUniversity of [facility] NURSNOTEon [id number] sitting quietly in day room at shift [...] any needs at this time. Safety checks maintained.[facility] HospitalNURSNOTEPatient walks around unit at intervals. Napped this afternoon. No further verbalization of hallucinations to poem writer except this am when she said she saw a bunny at the foot of her bed. Appetite good and took all meds without issue. Now sitting quietly in dayroom. Minimal interaction with peers.[facility] HospitalNURSNOTEThe patient slept 6 hours last night. She has been awake since 429. During that time she has walked out to the day room several times saying that she is tired and is going to go back to bed. She is awake and resting in bed at this time.[facility] HospitalNURSNOTEPatient came out to the dayroom from her room and stated that her friend Negra was in the boat and all tangled up in fishing line and she thought that she was going to . The patient asked the poem writer to come assist her with her getting her friend untangled. The poem writer went with the patient to her room where the poem writer pointed to the bed and said she is over there in the boat. The poem writer and the patient talked about how that was the patient's bed which the patient acknowledged. The patient then agreed that she either was dreaming or hallucinating that the friend had been there in a boat. The patient is resting in bed at this time.[facility]30on The patient is Moderately Unstable - Medium [...] allowing vitals twice daily Outcome: ProgressingNormalUniversity of [facility]30Original care plan was accidentally auto deleted when RN discharged patient by accident.[facility]94on [id number] Topic: Activity Therapy Group Date: 06/13/2024 Start Time: 1400 End Time: 1530 Facilitators: JONATHAN Jorge Department: [facility] Number of Participants: 4 Group Focus: concentration, leisure skills, problem solving, reminiscence, and social skills Treatment Modality: Leisure Development and Patient-Centered Therapy Interventions utilized were active listening, leisure development, problem solving, reminiscence, and support Purpose: express feelings, improve communication skills, and increase insight or knowledge Name: Donnie Bullock Date of : 1955 MR: [id number] Level of Participation: withdrawn Response: Pt. Did not participate in the group activity. Plan: Pt will be encouraged to participate in recreational therapy groups and activities. Patients Problems: Patient Active Problem List Diagnosis Neurocognitive disorder with Lewy bodies (CMS/HCC) Slow transit constipation Visual hallucinations Paroxysmal supraventricular tachycardia (CMS/HCC) Personal history of COVID-19NormalUnivers[facility]94 Attestation signed by MINDY Hunt at 06/14/2024 9:34 AM I agree with the content of this note and have no current revisions. Group Topic: Social Work Group Date: 06/13/2024 Start Time: 1015 End Time: 1100 Facilitators: Mindy Weinstein Department: [facility] Number of Participants: 1 Group Focus: affirmation, check in, communication, and feeling awareness/expression Treatment Modality: Individual Therapy, Patient-Centered Therapy, and Spiritual Interventions utilized were exploration and support Purpose: enhance coping skills Name: Donnie Bullock Date of : 1955 MR: [id number] Level of Participation: patient was practicing a relaxation technique in her room Plan: patient will be encouraged to participate in future groups Patients Problems: Patient Active Problem List Diagnosis Neurocognitive disorder with Lewy bodies (CMS/HCC) Slow transit constipation Visual hallucinations Paroxysmal supraventricular tachycardia (CMS/HCC) Personal history of COVID-19NormalUniversity of [facility]94Group Topic: Activity Therapy Group Date: 06/13/2024 Start Time: 0945 End Time: 1140 Facilitators: JONATHAN Jorge Department: [facility] Number of Participants: 4 Group Focus: check in, communication, concentration, feeling awareness/expression, leisure skills, problem solving, reminiscence, and social skills Treatment Modality: Leisure Development and Patient-Centered Therapy Interventions utilized were active listening, leisure development, problem solving, reminiscence, and support Purpose: express feelings, improve communication skills, and increase insight or knowledge Name: Donnie Bullock Date of : 1955 MR: [id number] Level of Participation: refused Response: Pt. Refused to participate in the group activity. Plan: Pt will be encouraged to participate in recreational therapy groups and activities. Patients Problems: Patient Active Problem List Diagnosis Neurocognitive disorder with Lewy bodies (CMS/HCC) Slow transit constipation Visual hallucinations Paroxysmal supraventricular tachycardia (CMS/HCC) Personal history of COVID-19NormalUniversity of Parkview Regional HospitalDaniel [id number] was sleeping in bed at the beginning [...] the side of her bed at this time.[facility] HospitalNURSNOTEPatient hasn't wandered unit as much today. [...] wants to go home. Minimal interaction with peers.Normal [facility] HospitalNURSNOTETh patient has been up several more times looking for family members. She slept approximately 6 hours this shift.[facility] NURSNOTEPatient has been up in the day room for approximately the last hour. She heard a staff member and another patient talking about being at [facility] in [place]. The patient asked the poem writer, they said we are in [place], but we are in [place] . The patient believed that she was in [place] at a play that her daughter is in. She said that she had just watched them practicing and that the play was getting ready to start. The patient pointed over near the nurses station and said that was where they had been practicing for the play. Package Dyer explained to the patient that she was in the hospital in [place]. The patient did not know why she [...] asked to call her or daughter. The poem writer explained that she could call them in the morning. The patient then asked what time it was and was surprised to find that it was one o'clock in the morning. The patient stated no wonder I'm so tired . The poem writer showed her to her room and got her a warm blanket. The patient is sleeping at this time.[facility]30 on [id number] patient is Moderately Unstable - Medium risk [...] Goal: LTG-Interact appropriately within social settings Outcome: ProgressingNormalUniversity of [facility]30The patient is Moderately Stable - Low [...] Progressing Goal: STG-Allows ADL assistance Outcome: ProgressingNormalUniversity of [facility]94on Group Topic: Activity Therapy Group Date: 06/12/2024 Start Time: 1400 End Time: 1520 Facilitators: JONATHAN Jorge Department: [facility] Number of Participants: 6 Group Focus: communication, concentration, leisure skills, problem solving, reminiscence, and social skills Treatment Modality: Leisure Development and Patient-Centered Therapy Interventions utilized were active listening, leisure development, problem solving, and reminiscence Purpose: improve communication skills and increase insight or knowledge Name: Donnie Bullock Date of : 1955 MR: [id number] Level of Participation: withdrawn Response: Pt. Did not participate in the group activity. Plan: Pt will be encouraged to participate in recreational therapy groups and activities. Patients Problems: Patient Active Problem List Diagnosis Neurocognitive disorder with Lewy bodies (CMS/HCC) Slow transit constipation Visual hallucinations Paroxysmal supraventricular tachycardia (CMS/HCC) Personal history of COVID-19NormalUniversity of [facility]94Group Topic: Activity Therapy Group Date: 06/12/2024 Start Time: 944 End Time: 1124 Facilitators: AYSE JorgeS Department: [facility] Number of Participants: 4 Group Focus: anxiety, check in, clarity of thought, communication, concentration, family, feeling awareness/expression, leisure skills, problem solving, reminiscence, and social skills Treatment Modality: Leisure Development and Patient-Centered Therapy Interventions utilized were active listening, leisure development, problem solving, reminiscence, and support Purpose: express feelings, improve communication skills, and increase insight or knowledge Name: Donnie Bullock Date of : 1955 MR: [id number] Level of Participation: withdrawn Response: Pt. Did not participate in the group activity. Plan: Pt will be encouraged to participate in recreational therapy groups and activities. Patients Problems: Patient Active Problem List Diagnosis Neurocognitive disorder with Lewy bodies (CMS/HCC) Slow transit constipation Visual hallucinations Paroxysmal supraventricular tachycardia (CMS/HCC) Personal history of COVID-19NormalUniversity of Parkview Regional HospitalCBC WITH AUTO DIFFERENTIALon [id number] (Bld) [#/Vol]0.03 10*3/uLNormal0.00-0.20 White HospitalComment on above:Performed By: #### [id number] #### [facility] ([facility]) [address], [place] [address]Cvwyzoqlx/100 WBC (Bld)0.6 %Normal0.0-1.0UnMcCullough-Hyde Memorial HospitalComment on above:Performed By: #### [id number] #### [facility] ([facility]) [address] [place], [place] [address]Npnnazwqwcj (Bld) [#/Vol]0.08 10*3/uLNormal0.00-0.50UnMcCullough-Hyde Memorial HospitalComment on above:Performed By: #### [id number] #### [facility] ([facility]) [address] [place] [address]Kltewvhlrok/100 WBC (Bld)1.7 %Normal0.0-6.0UnMcCullough-Hyde Memorial HospitalComment on above:Performed By: #### [id number] #### [facility] ([facility]) [address] [place], [place] [address]Qailtrfbfke distribution width (RBC) [Ratio]12.3 %Normal 11.5-15.0UnMcCullough-Hyde Memorial HospitalComment on above:Performed By: #### [id number] #### [facility] ([facility]) [address] [place] [address]CTJKYBDFKWY MEAN CORPUSCULAR HEMOGLOBIN CONCENTRATION (G/DL) BY LYDQDNUGA58.7 g/zEZpdecq48.0-35.0UnMcCullough-Hyde Memorial HospitalComment on above:Performed By: #### [id number] #### [facility] ([facility]) [address] [place] [address]Jzozovkbui (Bld) [Volume fraction]40.1 %Wtplpf00.0-48.0 White HospitalComment on above:Performed By: #### [id number] #### [facility] ([facility]) [address] [place] [address]Nnpfighaum (Bld) [Mass/Vol]13.1 g/lOXtrxig48.0-15.0UnMcCullough-Hyde Memorial HospitalComment on above:Performed By: #### [id number] #### [facility] ([facility]) [address] [place], [place] [address]Wmoyobun granulocytes (Bld) [#/Vol]0.01 10*3/uLNormal0.00-0.20 White HospitalComment on above:Performed By: #### [id number] #### [facility] ([facility]) [address] [place], [place] [address]Dfmprdnl granulocytes/100 WBC (Bld)0.2 %Normal0.0-1.0UnMcCullough-Hyde Memorial HospitalComment on above:Performed By: #### [id number] #### [facility] ([facility] [address] [place] [address]Hnavgdjstcr (Bld) [#/Vol]2.19 10*3/uLNormal1.20-4.00UnMcCullough-Hyde Memorial HospitalComment on above:Performed By: #### [id number] #### [facility] ([facility]) [address] [place] [address]Njtzobpnyiy/100 WBC (Bld)46.2 %High20.0-45.0UnMcCullough-Hyde Memorial HospitalComment on above:Performed By: #### [id number] #### [facility] ([facility]) [address] [place] [address]BMR (RBC) [Entitic mass]29.8 xpPwuhxw87.0-33.0UnMcCullough-Hyde Memorial HospitalComment on above:Performed By: #### [id number] #### [facility] ([facility]) [address] [place] [place], [place] [address]GAD (RBC) [Entitic vol]91.3 bDWqfguc94.0-98.0UnMcCullough-Hyde Memorial HospitalComment on above:Performed By: #### [id number] #### [facility] ([facility]) [address] [place] [place], [place] [address]Pxzndiwrj (Bld) [#/Vol]0.36 10*3/uLNormal0.10-1.00UnMcCullough-Hyde Memorial HospitalComment on above:Performed By: #### [id number] #### [facility] ([facility]) [address] [place] [place], [place] [address]Tibaakxir/100 WBC (Bld)7.6 %Normal5.0-12.0UnMcCullough-Hyde Memorial HospitalComment on above:Performed By: #### [id number] #### [facility] ([facility]) [address] [place] [place], [place] [address]Ugoeqdqvvua (Bld) [#/Vol]2.07 10*3/uLNormal1.60-7.60UnMcCullough-Hyde Memorial HospitalComment on above:Performed By: #### [id number] #### [facility] ([facility]) [address] [place] [address]Ribvvfpjcto/100 WBC (Bld)43.7 %Oaxlry60.0-72.0UnMcCullough-Hyde Memorial HospitalComment on above:Performed By: #### [id number] #### [facility] ([facility]) [address] [place] [address]PGLK (PER 100 WBCS) BY AUTOMATED COUNT0.0 %Kohjbo0PegkquedunMcCullough-Hyde Memorial HospitalComment on above:Performed By: #### [id number] #### [facility] ([facility]) [address] [place] [address]HXTSERPXK (10*3/UL) IN BLOOD AUTOMATED FHTOO150 10*3/uLNormal 150-400UnMcCullough-Hyde Memorial HospitalComment on above:Performed By: #### [id number] #### [facility] ([facility]) [address] [place] [address]KRH (Bld) [#/Vol]4.39 10*6/uLNormal3.80-5.00UnMcCullough-Hyde Memorial HospitalComment on above:Performed By: #### [id number] #### [facility] ([facility]) [address] [place] [address]PNO (Bld) [#/Vol]4.74 10*3/uLNormal4.00-10.60UnMcCullough-Hyde Memorial HospitalComment on above:Performed By: #### [id number] #### [facility] ([facility]) [address] [address]HIRZGINKee [id number] was resting in bed at the beginning [...] she turns that way the little girl disappears.[facility] HospitalNURSNOTEPatient A&Ox4 pleasant and cooperative with automatic furnace operator, medication administration, and ADLs. The patient [...] shift. Safety checks maintained per unit policy. [facility] HospitalNURSNOTEPt slept for about 6 hours. No negative behaviors observed. No signs/symptoms of respiratory distress noted. Safety maintained.[facility]30The patient is Moderately Stable - Low risk of patient condition declining or worsening The patient's goals for the shift include I don't know The clinical goals for the shift include safety Problem: Agitation Goal: LTG-Decrease in targeted symptoms Outcome: Not Progressing Pt is not progressing towards this goal yet.[facility]30The patient is Moderately Unstable - Medium risk of patient condition declining or worsening The patient's goals for the shift include rest The clinical goals for the shift include safety Problem: Agitation Goal: LTG-Take medications as prescribed Outcome: Not Progressing Goal: LTG-Sleeps through the night Outcome: Not Progressing Pt is not progressing towards these goals yet.[facility]94on [id number] Topic: Reality Orientation Group Date: 06/11/2024 Start Time: 1015 End Time: 1100 Facilitators: MINDY Hunt Department: [facility] Number of Participants: 3 Group Focus: check in, clarity of thought, and goals/reality orientation Treatment Modality: Individual Therapy, Interpersonal Therapy, Patient-Centered Therapy, and Psychodynamic Psychotherapy Interventions utilized were active listening, confrontation, exploration, reality testing, and support Purpose: express feelings Name: Donnie Bullock Date of : 1955 MR: [id number] Level of Participation: Pt was talking on the phone and practicing a relaxation technique Plan: patient will be encouraged to participate in future groups Patients Problems: Patient Active Problem List Diagnosis Neurocognitive disorder with Lewy bodies (CMS/HCC) Slow transit constipation Visual hallucinations Paroxysmal supraventricular tachycardia (CMS/HCC) Personal history of COVID-19NormalUniversity of [facility]94Group Topic: Reminiscence Group Date: 06/11/2024 Start Time: 854 End Time: 944 Facilitators: Cydney Peacock OT Department: [facility] Number of Participants: 4 Group Focus: check in, feeling awareness/expression, reminiscence, self-awareness, and self-esteem Treatment Modality: Patient-Centered Therapy and Solution-Focused Therapy Interventions utilized were patient education, problem solving, and reminiscence Purpose: enhance coping skills, regain self-worth, and reinforce self-care Name: Donnie Bullock Date of : 1955 MR: [id number] Level of Participation: moderate Quality of Participation: [...] tachycardia (CMS/HCC) Personal history of COVID-19NormalUniversity of Parkview Regional HospitalNURSNOTEon [id number] was cooperative with meds and assessment. Pt was sitting quietly in the dayroom. Pt c/o a headache. PRN Tylenol given. Pt says she was seeing ribbons out the corner of her eyes. Pt was observed wandering around the unit at times. Pt seemed more depressed tonight than last night.[facility] HospitalNURSNOTEPatient quietly wanders the unit, needs directed to dayroom table at meal. Eats very small healthy meals.Patient sits quietly and dozes at times. Will initiate conversation first when she needs something.,if not poem writer initiates conversation. Patient did not sundown today.[facility] HospitalNURSNOTEPatient encouraged to come out for breakfast. Co-operative with meds and conversation. Requested to talk with this morning. They talked on the phone for 5 minutes, all went well.[facility] NURSNOTEPt slept for about 5 hours. Pt woke up and was found staring at the wall in the corner of her room. No signs/symptoms of respiratory distress noted. Safety maintained.[facility]94on Attestation signed by MINDY Hunt at 06/11/2024 9:22 AM I agree with the content of this note and have no current revisions. Group Topic: Social Work Group Date: 06/10/2024 Start Time: 1015 End Time: 1100 Facilitators: Mindy Weinstein Department: [facility] Number of Participants: 2 Group Focus: check in, feeling awareness/expression, individual meeting, and self-awareness Treatment Modality: Individual Therapy and Patient-Centered Therapy Interventions utilized were exploration and problem solving Purpose: express feelings and increase insight or knowledge Name: Donnie Bullock Date of : 1955 MR: [id number] Level of Participation: active Quality of Participation: [...] tachycardia (CMS/HCC) Personal history of COVID-19NormalUniversity of Park[facility]94Group Topic: Relaxation Group Date: 06/10/2024 Start Time: 0900 End Time: 1000 Facilitators: Cydney Peacock OT Department: [facility] Number of Participants: 7 Group Focus: check in, coping skills, relaxation, self-awareness, and self-esteem Treatment Modality: Leisure Development, Skills Training, and Solution-Focused Therapy Interventions utilized were patient education and problem solving Purpose: enhance coping skills, regain self-worth, and reinforce self-care Name: Donnie Bullock Date of : 1955 MR: [id number] Level of Participation: withdrawn Quality of Participation: Patient withdrawn during group session. No active participation or integration with peers or OT at this time. No active refusal noted. Plan to encourage pt to attend groups and engage with other peers while on the unit. Patients Problems: There is no problem list on file for this patient.NormalUnMcCullough-Hyde Memorial HospitalCOMPREHENSIVE METABOLIC PANELon 14-96-9063Icnjvlt [Mass/Vol]3.9 g/dLNormal3.5-5.7UnMcCullough-Hyde Memorial HospitalComment on above:Performed By: #### [id number] #### [facility] ([facility]) [address] [place], [place] [address]WHA [Catalytic activity/Vol]44 U/EKrzpmb56-226GheexqyxacMcCullough-Hyde Memorial HospitalComment on above:Performed By: #### [id number] #### [facility] ([facility]) [address] [place], [place] [address]YVZ [Catalytic activity/Vol]15 U/LNormal7-52UnMcCullough-Hyde Memorial HospitalComment on above:Performed By: #### [id number] #### [facility] ([facility]) [address] [place], [place] [address]Gzaha gap [Moles/Vol]14 mmol/LNormal7-20UnMcCullough-Hyde Memorial HospitalComment on above:Performed By: #### [id number] #### [facility] ([facility]) [address] [place], [place] [address]CQE [Catalytic activity/Vol]17 U/CIjiago53-58AembvziubhMcCullough-Hyde Memorial HospitalComment on above:Performed By: #### [id number] #### [facility] ([facility]) [address] [place], [place] [address]Mrlmocbgj [Mass/Vol]0.5 mg/dLNormal0.3-1.0UnMcCullough-Hyde Memorial HospitalComment on above:Performed By: #### [id number] #### [facility] ([facility]) [address] [place], [place] [address]Ehksclx [Mass/Vol]9.4 mg/dLNormal8.6-10.3UnMcCullough-Hyde Memorial HospitalComment on above:Performed By: #### [id number] #### [facility] ([facility]) [address] [place], [place] [address]Jykorgct [Moles/Vol]106 mmol/GRqcyaf77-597WlyfiopzjkMcCullough-Hyde Memorial HospitalComment on above:Performed By: #### [id number] #### [facility] ([facility]) [address] [place], [place] [address]IR4 [Moles/Vol]24 mmol/LLclvqa54-16DyzcnxyjyuMcCullough-Hyde Memorial HospitalComment on above:Performed By: #### [id number] #### [facility] ([facility]) [address] [place], [place] [address]Fdwmazfvek [Mass/Vol]0.69 mg/dLNormal0.60-1.20UnMcCullough-Hyde Memorial HospitalComment on above:Performed By: #### [id number] #### [facility] ([facility]) [address] [place], [place] [address]ZCVMFDTGXT FILTRATION RATE ML/MIN/1.73 SQ M.TRJYJLKLS71.3 mL/min/1.73m*2Normal>60.0UnMcCullough-Hyde Memorial HospitalComment on above: Result Comment: [facility]???s estimated glomerular filtration rate (eGFR) will [...] group of individuals.Performed By: #### [id number] #### [facility] ([facility]) [address] [place], [place] [address]Kkcwvkf [Mass/Vol]99 mg/nJOkouvi24-063FgztqpqmqnMcCullough-Hyde Memorial HospitalComment on above:Performed By: #### [id number] #### [facility] ([facility]) [address] [place], [place] [address]Phmrkorei [Moles/Vol]4.2 mmol/LNormal3.5-5.1UnMcCullough-Hyde Memorial HospitalComment on above:Performed By: #### [id number] #### [facility] ([facility]) [address] [place], [place] [address]Bizywte [Mass/Vol]6.5 g/dLNormal6.0-8.3UnMcCullough-Hyde Memorial HospitalComment on above:Performed By: #### [id number] #### [facility] ([facility]) [address] [place], [place] [address]Eizgbc [Moles/Vol]140 mmol/PYidqaw956-591OhfpqyumlqMcCullough-Hyde Memorial HospitalComment on above:Performed By: #### LAB17 #### [facility] ([facility]) [address] [place], [place] [address]Jeqx nitrogen [Mass/Vol]12 mg/dLNormal7-25UnMcCullough-Hyde Memorial HospitalComment on above:Performed By: #### [id number] #### [facility] ([facility]) [address] [place], [place] [address]DOSP NITROGEN/CREATININE (MASS RATIO) IN SER/PLAS17.4Normal White HospitalComment on above:Performed By: #### [id number] #### [facility] ([facility]) [address] [place], [place] [address]PGLWK PANELon 42-05-2869CRPA/HDL3.3 mg/dLNormalUniAvita Health System Ontario HospitalComment on above:Performed By: #### LAB46 #### [facility] ([facility]) [address] [place], [place] [address]Fitinjbqhgw [Mass/Vol]230 mg/iCBwox783-767DvbkqrqbvxMcCullough-Hyde Memorial HospitalComment on above:Performed By: #### [id number] #### [facility] ([facility]) [address] [place], [place] [address]Mpwbzgrka [Mass/Vol]79 mg/jAPxzvsz07-671IlrvxzhgfkMcCullough-Hyde Memorial HospitalComment on above:Result Comment: TRIGLYCERIDE REFERENCE RANGE: 20 YEARS AND OLDER CARDIOVASCULAR RISK LESS THAN 150 mg/dL LOW RISK 150 TO 199 mg/dL BORDERLINE RISK 200 mg/dL AND GREATER HIGH RISKPerformed By: #### LAB46 #### [facility] ([facility]) [address] [place], [place] [address]Xaygaopda [Mass/Vol]144 mg/dLNormal0-160UnMcCullough-Hyde Memorial HospitalComment on above:Performed By: #### [id number] #### [facility] ([facility]) [address] [place], [place] [address]Bnrpbdpjs [Mass/Vol]70 mg/mBAzsjte67-35IbhhknybggMcCullough-Hyde Memorial HospitalComment on above:Performed By: #### [id number] #### [facility] ([facility]) [address] [place], [place] [address]EQH HDL CHOL. (LDL+VLDL)160NormalUniAvita Health System Ontario HospitalComment on above:Performed By: #### [id number] #### [facility] ([facility]) [address] [place], [place] [address]OYJIY VLDL-C16 mg/dLNormal0-40Unbeaver valley hospital [facility] Medical CenterComment on above:Performed By: #### LAB46 #### [facility] ([facility]) [address] [place] [place], [place] [address]FPWOBZTTlv 80-40-7185TYLHIHYIEt was cooperative but guarded during HS assessment and med pass. Pt denies pain and S.I. Pt denies A/V hallucinations (but says she sees ribbons sometimes). Pt is confused and need reoriented to her surroundings. Pt was resting quietly in bed, and she did not come out of her room to participate in the milieu. Pt refused an HS snack.[facility] NURSNOTEPatient wanting to leave . Had her sit with poem writer and read her admission note. Patient was surprised she was in [place]. She said it was a dream not a hallucination. When she told her about the kids being killed. Patient remembers other incidence and admits she was confused then. Patient tired and wanting to lay down and rest right now.[facility] NURSNOTEHusband called to talk with poem writer.His had called him and he wanted to update poem writer on conversation. His was confused and though we were closing doors and we were kicking her out. She also said her mother was in her bed. Patients mother in 2009. said his always increased confusion at dinner time. Patient in behavioral control this shift. Independent with adl`s and ambulation.Patient refused am group.[facility] HospitalNURSNOTEThis report has been cancelled.[facility] HospitalNURSNOTEPatient oriented to hospital, month and name. `Well I failed that test.` Rated depression a 5 on scale of 0-10. Patient denies AVH/SI/ and anxiety. Flat affect. Wandering unit after lunch looking for her room. Redirected easily. Needs reminded to use her walker.[facility] NURSNOTEPt slept approximately 7.5 hours last night. No behaviors or issues to report at this time. Safety checks maintained.[facility]30 on [id number] patient is Unstable - High likelihood or risk of patient condition declining or worsening The patient's goals for the shift include The clinical goals for the shift include Problem: Confusion Goal: LTG-Take medications as prescribed Outcome: Progressing Problem: Anxiety Goal: LTG-Decrease worry of fearful thoughts and/or behaviors Outcome: Not ProgressingNormalUniAvita Health System Ontario Hospital30The patient is Moderately Stable - Low risk of patient condition declining or worsening The patient's goals for the shift include unit orientation The clinical goals for the shift include unit orientation and safetyNormal White HospitalHPon 19-88-8424CH Attestation signed by Irma Greco DO at [...] Will monitor for symptomatology and adjust accordingly. [facility] History and Physical Examination Donnie Bullock is a 68 y.o. female with a past psychiatric history of Generalized Anxiety Disorder and a pertinent past medical history of Paroxysmal supraventricular tachycardia. She presented on 06/09/2024 to the [facility] (as a direct admission from home) for Major Neurocognitive Disorder with Lewy bodies and worsening visual hallucinations. Legal guardian/Decision maker: Vimal Bullock ([phone]) Nursing Facility: N/A, Patient Lives at Home [...] by Dr. Judy Chino, a psychologist in [place]. She then, approximately 1 year ago, began seeing neurology (Dr. Ambrose at [facility]). She also presented to [facility] for a second opinion in April, (MOCA score at that time was 17/30). The patient previously received services through [facility], this care was reported to be for her major neurocognitive disorder. This week the patient was experiencing worsening hallucinations. On Wednesday (06/05/2024) she reported that she killed her 4 kids and grandchildren. She stated she had their head in bags. The next day (06/06/2024) she was increasingly paranoid and told her that the automatic seamer was coming to take her away and she was packing. She experiences visual hallucinations every day, intermittently. In particular, Mrs. Bullock sees babies suffocating and people living in her house. She also reports seeing dogs as well as squirrels on her husbands shoulder when they watch TV together. Furthermore, patient states when she was hospitalized at [facility] for (depressive symptoms) she saw ribbons in [...] past). Patient/Collateral reports th (more content not included)...[facility] HospitalNURSNOTEon 04-70-0437BVDQQSQUTj was calm and cooperative with assessment and HS med pass. Pt denies of SI/HI/AV hallucinations. Patient denies of pain and SOB. No behaviorals nor any other issues to report at this time. Safety checks maintained.[facility] HospitalCNPNon [id number] ([facility]) DONNIE BULLOCK ([id number]) 1955 F Date Time Provider Department 05/26/24 [...] Cox 05/29/2024 12:16 PM Signed Spouse, Vimal LVM on [facility] Nurse Line on 05/26 @2:07P. Pt name [...] will be picked tomorrow from [facility] and Vimal will mail it to Sera Killian APRN, ELIANE. - Vimal was advised to keep our office updated. Ivette Kerr RN Allergies As of Date: 05/26/2024 (No Known Allergies) Date Reviewed: 04/19/2024 Reviewed by: Francie Lira RN - Fully Assessed Reason for Visit: Called Back [0768] Patient Question [7897] Cmt: Spouse requesting a return phone call [...] 04/19/2024 Encounter Status:Closed by SERA KILLIAN on 05/30/24[facility] UA (CLEAN/CATCH) MICROSCOPIC IF INDICATEon 49-20-4652VTRCUZEPZ URINENegativeNEGATIVENOMS HealthcareBLOOD URINETRACE-INEGATIVENOMS Healthcare Clarity (U)CLEARCLEARNOMS HealthcareColor (U)YELLOWYELLOWNOMS HealthcareGLUCOSE URINE UANegativeNEGATIVE mg/dLNOMS HealthcareInterpretation and review of laboratory resultsAbnormalNOMS HealthcareKetones Ql (U)TRACEAbnormalNEGATIVE mg/dLNOMS HealthcareLeukocyte esterase Test strip Ql (U)NegativeNEGATIVENOMS HealthcareNITRITE URINENegativeNEGATIVENOMS HealthcarepH (U)6.0 [pH]5.0 - 9.0 NOMS HealthcarePROTEIN URINENegativeNEG/TRACE mg/dLNOMS HealthcareSPECIFIC GRAVITY URINE>=1.545Wjityfbs0.005 - 1.025NOMS HealthcareURINE MICROSCOPIC INDICATEDYESNOMS HealthcareUROBILINOGEN URINE0.2 EU/dL0.2 - 1.0 EU/dLNOMS HealthcareCLINISYNCNOMS HealthcareCNPNon [id number] ([facility]) DONNIE BULLOCK ([id number]) 1955 F Date Time Provider Department 05/15/24 SERA KILLIAN [facility] During your visit today, we recorded the following information about you: Rose Baldwin 05/15/2024 3:22 PM Signed Spouse, Carlos SANDERS on [facility] Nurse Line on 05/15 @2:59P. Pt [...] he may send a My Chart Message. JOSÉ ANTONIO Hernandez Terri, JOSÉ [...] Fully Assessed Reason for Visit: Patient Question [5046] Patient Update [1234] Cmt: Spouse requesting to [...] 04/19/2024 Encounter Status:Closed by SERA KILLIAN on 05/22/24[facility] [id number] ([facility]) DONNIE BULLOCK ([id number]) 1955 F Date Time Provider Department 04/25/24 [...] Status:Closed by SERA KILLIAN on 04/25/24[facility] HospitalCNPNTelephone (NEBHLW) DONNIE BULLOCK ([id number]) 1955 F Date Time Provider Department 04/25/24 SERA KILLIAN [facility] During your visit today, we recorded [...] 04/19/2024 Encounter Status:Closed by FRANCIE LIRA on 04/26/24[facility] HospitalJessie [id number] ([facility]) DONNIE BULLOCK ([id number]) 1955 F Date Time Provider Department 04/20/24 SERA KILLIAN [facility] During your visit today, we recorded [...] Encounter Status:Closed by FRANCIE LIRA on 04/21/24[facility] HospitalCr [id number] Visit ([facility]) DONNIE BULLOCK ([id number]) 1955 F Date Time Provider Department 04/19/24 12:30 PM SERA KILLIANNga During your visit today, we recorded the following information about you: Pulse Blood pressure Weight 76/minute 129/83 73.8 kg Sera Killian, [employer].LOGISTICS SUPPORT 04/19/2024 5:34 PM Signed Date: April 19, 2024 DONNIE BULLOCK [address] [place] [id number] [place] [address] [facility] INITIAL PATIENT EVALUATION Reason for Consult: Lewy Body Dementia-here for a 2nd opinion I had the pleasure of seeing this 68 year old year old female at the [facility]. The patient is referred by SELF. Patient [...] by neurology provider Dr. Rei Cobos at [facility], followed since August 2023. No cognitive testing on file. Formerly followed by psychiatry for LBD/anxiety. Last seen in September 2023. Care was established following her inpatient behavioral health hospitalization in April 2023/May 2023. No family history of dementia or Parkinson's Disease. Per spouse and son report: -Lumbar puncture at [facility] September 30, 2023. Work up completed for possible rapidly progressing dementia. -Prior brain imaging (MRI/CT at outside medical systems). -Hallucinations daily (asks her spouse when is Vimal going to come home? ; sees babies; puppies, squirrel on spouse's shoulder, gives sign of peace to people she sees in her home). -Recently discharged from [facility] services 4 months ago. Also previously [...] wanting to live, she was admitted to [facility] for further evaluation. Mobility changes at this [...] spouse Agencies involved: none currently-previously followed by [facility] Special Concerns: Hallucinations/Delusions: [...] Financial POA: Spouse will verify-information reviewed Consult [facility] AD OPERATIONS COORDINATOR if not completed: role introduced, reviewed national organizations offering support, provided co (more content not included)...Normal [facility] UA (CLEAN/CATCH) MICROSCOPIC IF INDICATEon 90-38-0812TBIJHUKZV URINENegativeNEGATIVENOMS HealthcareBLOOD URINENegative NEGATIVENOMS HealthcareClarity (U)CLEARCLEARNOMS HealthcareColor (U)DK. YELLOW YELLOWNOMS HealthcareGLUCOSE URINE UANegativeNEGATIVE mg/dLNOMS Healthcare Interpretation and review of laboratory resultsAbnormalNOMS HealthcareKetones Ql (U)15 mg/dLAbnormalNEGATIVENOMS HealthcareLeukocyte esterase Test strip Ql (U) NegativeNEGATIVENOMS HealthcareNITRITE URINENegativeNEGATIVENOMS HealthcarepH (U)5.5 [pH]5.0 - 9.0NOMS HealthcarePROTEIN URINETRACENEG/TRACE mg/dLNOMS HealthcareSPECIFIC GRAVITY URINE>=1.819Afihutmm9.005 - 1.025NOMS HealthcareURINE MICROSCOPIC INDICATEDNONOMS HealthcareUROBILINOGEN URINE0.2 EU/dL0.2 - 1.0 EU/dLNOMS HealthcareCLINISYNCNOMS HealthcareMM TOMOSYNTHESIS SCREENING BIon 31-21-3715[address] [address] Mammography Report Signed Patient: DONNIE BULLOCK MR#: [id number] : 1955 Acct:[id number] Age/Sex: 68 / F ADM Date: 12/29/23 Loc: MAMMO Attending Dr: Remigio Simpson M.D. Ordering Physician: Remigio Simpson M.D. Results: Date of Service: 12/29/23 Follow Up: Procedure(s): MM tomosynthesis screening BI Accession Number(s): [id number] cc: Remigio Simpson M.D. Patient Name: DONNIE BULLOCK MR#: [id number] : 1955 Exam Date: 12/29/2023 Ordering Doctor: [...] pancreatic cancer at age 59. LOCATION: [facility] BREAST COMPOSITION: There are scattered areas [...] Hope M.D. Signed By: 12/29/23 1045 DD/ 1044 TD/TT: Protocol Officer:TBHRadiology, RadiologistMD - 12/29/2023 [place] [address] Mammography Report Signed Patient: DONNIE BULLOCK MR#: [id number] : 1955 Acct:[id number] Age/Sex: 68 / F ADM Date: 12/29/23 Loc: MAMMO Attending Dr: Remigio Simpson M.D. Ordering Physician: Remigio Simpson M.D. Results: Date of Service: 12/29/23 Follow Up: Procedure(s): MM tomosynthesis screening BI Accession Number(s): [id number] cc: Remigio Simpson M.D. Patient Name: DONNIE BULLOCK MR#: [id number] : 1955 Exam Date: 12/29/2023 Ordering Doctor: [...] pancreatic cancer at age 59. LOCATION: [facility] BREAST COMPOSITION: There are scattered areas [...] Hope M.D. Signed By: 12/29/23 1045 DD/ 1044 TD/TT: Protocol Officer: [facility] HOSPITALShahriar HealthcareRadiology Study observation (narrative)[facility] TOMOSYNTHESIS SCREENING BIOrdered By: Radiologist Radiology on 56-02-8882ENTJ [employer] Work Phone: cholesterol [Mass/volume] in Serum or PlasmaOrdered By: Sridhar Hoffman on 16-93-2339Xugwjyttjsz [Mass/Vol]205 mg/jN315-008JyoyljjacMercy Health Defiance HospitalComment on above:Chol less than 200 mg/dl low riskChol 201-239 mg/dl borderline riskChol 240 mg/dl and greater high riskCholesterol in LDL Calc [Mass/Vol]Ordered By: Sridhar Hoffman on 94-82-2797Wstdjnlrgqz in LDL [Mass/Vol]122 mg/dL0-100Mer[facility] Defiance HospitalComment on above:LDL ATP III CLASSIFICATIONLDL less than 100 mg/dL OptimalLDL 100-129 mg/dL Near or above gesfsytAXR858-763 mg/dL Borderline highLDL 160-189 mg/dL HighLDL greater than 189 mg/dL Very highCholesterol in VLDL Calc [Mass/Vol]Ordered By: Sridhar Hoffman on 64-05-0678Owmynxcwwkh in VLDL [Mass/Vol]20 mg/dLSuburban Community Hospital & Brentwood Hospitalerum or plasma high density lipoprotein (HDL) cholesterol measurementOrdered By: Sridhar Hoffman on 98-22-2316Vqxlyrkjonh in HDL [Mass/Vol] 62 mg/dW33-25AzdsgtxsaMercy Health Defiance HospitalComment on above:HDL CHOL ATP-III CLASSIFICATION Cardiovascular RiskHDL > or equal to 60 mg/dL LOWHDL < 40 mg/dL HIGHSerum or plasma total cholesterol/high density lipoprotein (HDL) cholesterol mass ratOrdered By: Sridhar Hoffman on 85-28-0981Hlfqwemcggw.total/Cholesterol in HDL [Mass ratio]3.3 {ratio}<5.0Mer[facility] Health Defiance HospitalThyrotropin [Units/volume] in Serum or PlasmaOrdered By: Sridhar Hoffman on 14-66-2106DWW Qn 3.99 m[IU]/L0.45-5.33Mer[facility] Health Defiance HospitalTriglyceride [Mass/volume] in Serum or PlasmaOrdered By: Sridhar Hoffman on 65-54-9335Bfctbycgxpcf [Mass/Vol]103 mg/dL0-149Mer[facility] Health Defiance HospitalComment on above:TRIG ATP III CLASSIFICATIONTRIG less than 150 mg/dL NormalTRIG 150-199 mg/dL Borderline highTRIG 200-500 mg/dL High TRIG greater than 500 mg/dL Very highStandard traceable to the Center for Disease Conrtrol and Prevention (CDC) test method.Vitamin D+Metabolites [Mass/volume] in Serum or PlasmaOrdered By: Sridhar Hoffman on 55-45-0078Xyxaghr D+Metabolites [Mass/Vol]22.0 ng/oG21-460 [facility] Defiance HospitalComment on above:VITAMIN D STATUS 25(OH)VITAMIN D RANGE (ng/mL) Deficient <20 Insufficient 20 to <15Cbsjromayb87 to 100Reference: Shaq MF,Monica PRESLEY, Fabrizio , et al. Evaluation,treatment, and prevention of vitamin D deficiency; an Endocrine Society clinical practice guideline. JCEM. 2010; 96(7):1911-30.Alanine aminotransferase [Enzymatic activity/volume] in Serum or PlasmaOrdered By: Good Garcia on 08-09-8419ZOX [Catalytic activity/Vol]20 U/L7-52Mer[facility] Defiance HospitalAlbumin [Mass/volume] in Serum or Plasma by Bromocresol green (BCG) dye binding methoOrdered By: Good Garcia on 58-62-9616Lbstzvi BCG dye [Mass/Vol]4.0 g/dL3.5-5.7FOhioHealth Marion General HospitalAlkaline phosphatase [Enzymatic activity/volume] in Serum or PlasmaOrdered By: Good Garcia on 19-90-5247LWM [Catalytic activity/Vol]43 U/V04-765DdridnldhMercy Health Defiance HospitalAmphetamine Screen Ql (U)Ordered By: Good Garcia on 09-14-2023 Amphetamines Ql (U)NegativeNegativeMercy Health Defiance HospitalAspartate aminotransferase [Enzymatic activity/volume] in Serum or PlasmaOrdered By: Good Garcia on 74-71-6111KUK [Catalytic activity/Vol]18 U/J67-95QksiukzxbMercy Health Defiance HospitalBarbiturates [Presence] in Urine by Screen methodOrdered By: Good Garcia on 97-95-8277Ijjgpnytkmwu Screen Ql (U)NegativeNegative [facility] HospitalBasophils Auto (Bld) [#/Vol]Ordered By: Good Garcia 81-18-8969Fpmsfkqie (Bld) [#/Vol]0.0 10*3/uL0.0-0.2FOhioHealth Marion General HospitalBasophils/100 WBC Auto (Bld)Ordered By: Good Garcia on 09-14-2023 Basophils/100 WBC (Bld)0.6 %.Mer[facility] Defiance HospitalBenzodiazepines Screen Ql (U)Ordered By: Good Garcia on 76-32-6856Xebwonbqcgilubm Ql (U) NegativeNegativeMercy Health Defiance HospitalBenzoylecgonine [Presence] in Urine by Screen methodOrdered By: Goodsma Garcia on 96-69-7935Ikyrqywjcwyqint Screen Ql (U)NegativeNegativeMercy Health Defiance HospitalBilirubin Test strip Ql (U)Ordered By: Good Castilloiris on 63-55-8255Buwhwkozh Ql (U)Negative NegativeMercy Health Defiance HospitalBilirubin.total [Mass/volume] in Serum or PlasmaOrdered By: Good Garcia on 83-39-9866Nwkbrpeqd [Mass/Vol]0.4 mg/dL 0.3-1.0Mer[facility] Health Defiance HospitalCT ABDOMEN PELVIS WO/W CONon 09-14-2023 [place] [address] CT Scan Report Signed Patient: DONNIE BULLOCK MR#: [id number] : 1955 Acct:[id number] Age/Sex: 67 / F ADM Date: 09/14/23 Loc: CT Attending Dr: Rei Cobos D.O. Ordering Physician: Rei Cobos D.O. Date of Service: 09/14/23 Procedure(s): CT abdomen pelvis wo/w con Accession Number(s): [id number] cc: Remigio Simpson M.D. [place] [id number] Patient Name: DONNIE BULLOCK MRN: [facility]:[id number] date: 1955 Sex: F Assigned Patient Location: CT Current Patient Location: CT Accession/Order Number: [id number] Exam Date: 09/14/2023 09:20 Report Date: 09/14/2023 [...] Signed By: 09/14/23 1256 DD/ 1253 TD/TT: Protocol Officer:TBHRadiology, Radiologist, - 09/14/2023 [place] [address] CT Scan Report Signed Patient: DONNIE BULLOCK MR#: [id number] : 1955 Acct:[id number] Age/Sex: 67 / F ADM Date: 09/14/23 Loc: CT Attending Dr: Rei Cobos D.O. Ordering Physician: Rei Cobos D.O. Date of Service: 09/14/23 Procedure(s): CT abdomen pelvis wo/w con Accession Number(s): [id number] cc: Remigio Simpson M.D. [facility] [place] [id number] Patient Name: DONNIE BULLOCK MRN: [id number] date: 1955 Sex: F Assigned Patient Location: CT Current Patient Location: CT Accession/Order Number: [id number] Exam Date: 09/14/2023 09:20 Report Date: 09/14/2023 [...] Signed By: 09/14/23 1256 DD/ 1253 TD/TT: Protocol Officer: SOWMY[facility] Chest WO and W contrast Kevin [id number] [id number] CT Scan Report Signed Patient: DONNIE BULLOCK MR#: [id number] : 1955 Acct:[id number] Age/Sex: 67 / F ADM Date: 09/14/23 Loc: CT Attending Dr: Rei Cobos D.O. Ordering Physician: Rei Cobos D.O. Date of Service: 09/14/23 Procedure(s): CT chest wo/w con Accession Number(s): [id number] cc: Remigio Simpson M.D. [address] [address] Patient Name: DONNIE BULLOCK MRN: [id number] date: 1955 Sex: F Assigned Patient Location: CT Current Patient Location: CT Accession/Order Number: [id number] Exam Date: 09/14/2023 09:20 Report Date: 09/14/2023 [...] Signed By: 09/14/23 1256 DD/ 1253 TD/TT: Protocol Officer:TBHRadiology, Radiologist, - 09/15/2023 [place] [address] CT Scan Report Signed Patient: DONNIE BULLOCK MR#: [id number] : 1955 Acct:[id number] Age/Sex: 67 / F ADM Date: 09/14/23 Loc: CT Attending Dr: Rei Cobos D.O. Ordering Physician: Rei Cobos D.O. Date of Service: 09/14/23 Procedure(s): CT chest wo/w con Accession Number(s): [id number] cc: Remigio Simpson M.D. [facility] [place] [id number] Patient Name: DONNIE BULLOCK MRN: [id number] date: 1955 Sex: F Assigned Patient Location: CT Current Patient Location: CT Accession/Order Number: [id number] Exam Date: 09/14/2023 09:20 Report Date: 09/14/2023 12:53 At the request of: REI OCBOS Procedure: CT chest wo/w con EXAMINATION: CT [...] Signed By: 09/14/23 1256 DD/ 1253 TD/TT: Protocol Officer: SOWMYA HealthcareCalcium [Mass/volume] in Serum or PlasmaOrdered By: Good Garcia on 74-44-1807Xvfaqal [Mass/Vol]9.8 mg/dL8.6-10.3FOhioHealth Marion General HospitalCannabinoids [Presence] in Urine by Screen methodOrdered By: Good Garcia on 31-22-7894Dliothxkdwzy Screen Ql (U)NegativeNegativeMercy Health Defiance HospitalComment on above:These are unconfirmed results and should not be used for legal purposes. Drug Cut-Off Concentration: AMPH 1000 ng/mL GABRIELA 200 ng/mL SIVA 200 ng/mL COCM 300 ng/mL OP 300 ng/mL PCP 25 ng/mL THC 20 ng/mLCarbon dioxide, total [Moles/volume] in Serum or PlasmaOrdered By: Good Garcia on 90-92-7743AZ8 [Moles/Vol]31.2 mmol/L21.0-31.0[facility] Chloride [Moles/volume] in Serum or PlasmaOrdered By: Good Garcia on 09-14-2023 Chloride [Moles/Vol]103 mmol/G43-293TwgmyzlygMercy Health Defiance HospitalColor Auto (U)Ordered By: Good Garcia on 06-24-8692Spcza (U)YellowYellowMercy Health Defiance HospitalCreatinine [Mass/volume] in Serum or PlasmaOrdered By: Good Garcia on 80-08-8845Toevbpwpur [Mass/Vol]0.61 mg/dL0.60-1.20[facility] HospitalEosinophils Auto (Bld) [#/Vol]Ordered By: Good Garcia on 74-33-4459Hnhclggqdue (Bld) [#/Vol]0.1 10*3/uL0.0-0.45[facility] HospitalEosinophils/100 WBC Auto (Bld)Ordered By: Good Garcia on 09-14-2023 Eosinophils/100 WBC (Bld)1.0 %.[facility] HospitalErythrocyte distribution width Auto (RBC) [Ratio]Ordered By: Good Garcia on 09-14-2023 Erythrocyte distribution width (RBC) [Ratio]13.0 %11.9-15.3FOhioHealth Marion General HospitalEthanol [Mass/volume] in Serum or PlasmaOrdered By: Good Garcia on 84-85-3940[place]cail [Mass/Vol]mg/dLMercy Health Defiance HospitalEthanol [Mass/Vol]TNPMercy Health Defiance HospitalComment on above:Test not performedGlobulin Calc (S) [Mass/Vol]Ordered By: Good Garcia on 09-14-2023 Globulin (S) [Mass/Vol]2.2 g/dLMercy Health Defiance HospitalGlucose [Mass/volume] in Serum or PlasmaOrdered By: Good Garcia 60-09-8353Izekemm [Mass/Vol]105 mg/wB21-123ZmhpgzpmwMercy Health Defiance HospitalComment on above:ADA recommended reference rangeRandom Glucose Reference Range is dependent on time and content of last meal. Glucose of more than 200 mg/dL in a nonstressed, ambulatory subject supports the diagnosisof Diabetes Mellitus.Hematocrit Auto (Bld) [Volume fraction]Ordered By: Good Garcia on 28-18-3039Zfhgefiipa (Bld) [Volume fraction]35.7 %34.0-46.4FOhioHealth Marion General HospitalHemoglobin [Mass/volume] in BloodOrdered By: Good Garcia on 67-04-4224Lvkpllonzd (Bld) [Mass/Vol]12.1 g/dL11.8-15.4FOhioHealth Marion General HospitalKetones Auto test strip (U) [Mass/Vol]Ordered By: Good Garcia on 98-78-7587Elrjkdf (U) [Mass/Vol] NegativeNegativeMercy Health Defiance HospitalLeukocytes [#/volume] corrected for nucleated erythrocytes in Blood by Automated counOrdered By: Good Garcia on 56-90-0040BOI corrected for nucl RBC Auto (Bld) [#/Vol]5.3 10*3/uL3.8-11.6 [facility] HospitalLymphocytes Auto (Bld) [#/Vol]Ordered By: Good Garcia on 76-18-3462Hbqwiuisgoo (Bld) [#/Vol]1.7 10*3/uL1.00-4.8[facility] HospitalLymphocytes/100 WBC Auto (Bld)Ordered By: Good Garcia on 25-43-3870Hclcayichaj/100 WBC (Bld)31.5 %.[facility] Auto (RBC) [Entitic mass]Ordered By: Good Garcia on 19-09-5881PDW (RBC) [Entitic mass]30.4 pg24.7-34.3FOhioHealth Marion General HospitalMCHC Auto (RBC) [Mass/Vol]Ordered By: Good Garcia on 05-57-9988GVFR (RBC) [Mass/Vol]34.0 g/dL 32.0-35.0[facility] HospitalMCV Auto (RBC) [Entitic vol]Ordered By: Good Garcia on 91-76-4720POS (RBC) [Entitic vol]89.6 hQ50-247RysfjxajfMercy Health Defiance HospitalMonocyte distribution width [Entitic volume] in Blood by AutomatedOrdered By: Good Garcia on 13-98-3033Eyothhxf distribution width Auto (Bld) [Entitic vol]16.08 %0.00-20.00[facility] HospitalMonocytes Auto (Bld) [#/Vol]Ordered By: Good Garcia on 38-66-3661Ycelrmutm (Bld) [#/Vol] 0.4 10*3/uL0.0-0.8[facility] HospitalMonocytes/100 WBC Auto (Bld) Ordered By: Good Garcia on 44-88-0125Mbhbcgvgs/100 WBC (Bld)7.5 %.[facility] HospitalNeutrophils Auto (Bld) [#/Vol]Ordered By: Good Garcia on 57-89-1884Znososederq (Bld) [#/Vol]3.1 10*3/uL1.8-7.7FOhioHealth Marion General HospitalNeutrophils/100 WBC Auto (Bld)Ordered By: Good Garcia on 09-14-2023 Neutrophils/100 WBC (Bld)59.4 %.[facility] HospitalNitrite Test strip Ql (U)Ordered By: Good Garcia on 37-54-0095Qjmxytn Ql (U)NegativeNegative [facility] HospitalNo Panel InformationOrdered By: Good Garcia on 07-23-9896Kmjiejgql GFR (CKD-EPI)> 60.0 mL/MinMercy Health Defiance Hospital Pharmacy Creatinine Clearance (Chem59.72[facility] HospitalNo Panel InformationOrdered By: Radiologist Radiology on 18-87-3133[facility] Work Phone: No Panel Informationon 12-43-0678Iwmfialum Study observation (narrative)NOMS HealthcareNucleated erythrocytes [Presence] in Blood by Automated countOrdered By: Good Garcia on 66-64-8287Aqwnxwqjy RBC Auto Ql (Bld)0.1 /100{WBC}0-0.5FOhioHealth Marion General HospitalOpiates [Presence] in Urine by Screen methodOrdered By: Good Garcia on 45-69-3259Vlxwyhd Screen Ql (U)PositiveNegativeMercy Health Defiance HospitalPhencyclidine Screen Ql (U) Ordered By: Good Garcia on 62-57-6637Dqmpusiqzgosd Ql (U)NegativeNegative [facility] HospitalPlatelet mean volume Auto (Bld) [Entitic vol] Ordered By: Good Garcia on 26-94-1329Dgcbkwnw mean volume (Bld) [Entitic vol] 7.3 fL6.3-10.7FOhioHealth Marion General HospitalPlatelets Auto (Bld) [#/Vol] Ordered By: Good Garcia on 27-74-8886Noshvzzgl (Bld) [#/Vol]246 10*3/qU349-669 [facility] HospitalPotassium [Moles/volume] in Serum or Plasma Ordered By: Good Garcia on 82-05-1892Afnovsorw [Moles/Vol]3.8 mmol/L3.5-5.1 [facility] HospitalProtein Auto test strip (U) [Mass/Vol]Ordered By: Good Garcia on 95-80-7861Jookrdu (U) [Mass/Vol]NegativeNegativeMercy Health Defiance HospitalProtein [Mass/volume] in Serum or PlasmaOrdered By: Good Garcia on 37-65-9121Gwbviot [Mass/Vol]6.2 g/dL6.4-8.9[facility] HospitalRBC Auto (Bld) [#/Vol]Ordered By: Good Garcia on 30-35-4250XFA (Bld) [#/Vol]3.98 10*6/uL3.60-5.00[facility] Hospitalerum or plasma albumin/globulin mass ratioOrdered By: Good Garcia on 09-14-2023 Albumin/Globulin [Mass ratio]1.8 {ratio}[facility] Hospitalerum or plasma anion gap determinationOrdered By: Good Garcia on 73-08-6675Ylurq gap [Moles/Vol]7.6 mmol/L6.0-15.0[facility] Brent[facility] Hospitalodium [Moles/volume] in Serum or PlasmaOrdered By: Good Garcia on 95-39-1837Owoaqr [Moles/Vol]138 mmol/T156-412EvggqqcxuSuburban Community Hospital & Brentwood Hospitalpecific gravity Auto test strip (U) [Rel density]Ordered By: Good Garcia on 12-75-0387Bnifatok gravity (U) [Rel density]1.0041.001-1.030[facility] HospitalUrea nitrogen [Mass/volume] in Serum or PlasmaOrdered By: Good Garcia on 09-14-2023 Urea nitrogen [Mass/Vol]8 mg/dL7-25[facility] HospitalUrine clarity by refractometry automatedOrdered By: Good Garcia on 01-01-4520Kwnvybe Refractometry automated (U)ClearClearFOhioHealth Marion General HospitalUrine glucose measurement by automated test strip (mass/volume)Ordered By: Good Garcia on 57-86-6247Kgonheu Auto test strip (U) [Mass/Vol]Normal mg/dLHolzer HospitalUrine hemoglobin detection by automated test stripOrdered By: Good Garcia on 16-53-6697Xalcthyxhs Auto test strip Ql (U) NegativeNegWVUMedicine Barnesville HospitalUrine leukocyte esterase detection by automated test stripOrdered By: Good Garcia on 54-34-9036Fcyiagcdg esterase Auto test strip Ql (U)NegativeNegWVUMedicine Barnesville HospitalUrobilinogen Auto test strip (U) [Mass/Vol]Ordered By: Good Garcia on 06-54-2784Jhqawrdgndni (U) [Mass/Vol]Normal mg/dLSalem City HospitalWBC Auto (Bld) [#/Vol]Ordered By: Good Garcia on 91-10-0660UTP (Bld) [#/Vol]5.3 10*3/uL3.8-11.6FOhioHealth Marion General HospitalpH Auto test strip (U)Ordered By: Good Garcia on 16-41-5782kP (U)7.0 [pH]5.0-9.0[facility] HospitalTBH UA (CLEAN/CATCH) MICROSCOPIC IF INDICATEon 06-30-2023 BILIRUBIN URINENegativeNEGATIVENOMS HealthcareBLOOD URINENegativeNEGATIVENOMS HealthcareClarity (U)CLEARCLEARNOMS HealthcareColor (U)LT. YELLOWYELLOWNOMS HealthcareGLUCOSE URINE UANegativeNEGATIVE mg/dLNOMS HealthcareInterpretation and review of laboratory resultsAbnormalNOMS HealthcareKetones Ql (U)Negative NEGATIVE mg/dLNOMS HealthcareLeukocyte esterase Test strip Ql (U)TRACEAbnormal NEGATIVENOMS HealthcareNITRITE URINENegativeNEGATIVENOCT HealthcarepH (U)5.0 [pH]5.0 - 9.0NOCT HealthcarePROTEIN URINENegativeNEG/TRACE mg/dLNOCT Healthcare SPECIFIC GRAVITY URINE1.0251.005 - 1.025NOCT HealthcareURINE MICROSCOPIC INDICATEDYESNOCT HealthcareUROBILINOGEN URINE0.2 EU/dL0.2 - 1.0 EU/dLNOCT HealthcareCLINISYNCNOMS HealthcareAlanine aminotransferase [Enzymatic activity/volume] in Serum or PlasmaOrdered By: Robert Caruso on 61-33-3207DTZ [Catalytic activity/Vol]14 U/L7-52[facility] HospitalAlbumin [Mass/volume] in Serum or Plasma by Bromocresol green (BCG) dye binding metho Ordered By: Robert Caruso on 53-73-2691Bssabqp BCG dye [Mass/Vol]4.4 g/dL3.5-5.7 [facility] HospitalAlkaline phosphatase [Enzymatic activity/volume] in Serum or PlasmaOrdered By: Robert Caruso on 95-21-6249FGH [Catalytic activity/Vol]48 U/P05-573LglkjqnlhMercy Health Defiance HospitalAmphetamine Screen Ql (U)Ordered By: Robert Caruso on 05-18-8593Fywoblduqjln Ql (U)Negative NegativeMercy Health Defiance HospitalAspartate aminotransferase [Enzymatic activity/volume] in Serum or PlasmaOrdered By: Robert Caruso on 71-35-8896ZUJ [Catalytic activity/Vol]21 U/B48-06MgqjsazchMercy Health Defiance HospitalBarbiturates [Presence] in Urine by Screen methodOrdered By: Robert Caruso on 05-25-2023 Barbiturates Screen Ql (U)NegativeNegativeMercy Health Defiance Hospital Basophils Auto (Bld) [#/Vol]Ordered By: Robert Caruso on 86-36-5809Xqoyvbayw (Bld) [#/Vol]0.0 10*3/uL0.0-0.2FOhioHealth Marion General HospitalBasophils/100 WBC Auto (Bld)Ordered By: Robert Caruso on 22-45-9206Pkqsmobqe/100 WBC (Bld)0.5 %. [facility] HospitalBenzodiazepines Screen Ql (U)Ordered By: Robert Caruso on 98-15-9962Nousnyjofigizjl Ql (U)NegativeNegWVUMedicine Barnesville HospitalBenzoylecgonine [Presence] in Urine by Screen methodOrdered By: Robert Caruso on 93-08-1411Akcxxreetuytnpw Screen Ql (U)NegativeNegWVUMedicine Barnesville HospitalBilirubin.total [Mass/volume] in Serum or PlasmaOrdered By: Robert Caruso on 46-48-6208Kvfzkzacq [Mass/Vol]0.8 mg/dL0.3-1.0[facility] HospitalCalcium [Mass/volume] in Serum or PlasmaOrdered By: Robert Caruso on 09-75-5331Otlngya [Mass/Vol]10.1 mg/dL8.6-10.3FOhioHealth Marion General HospitalCannabinoids [Presence] in Urine by Screen methodOrdered By: Robert Caruso on 29-77-8903Eysxolntzgim Screen Ql (U)NegativeNegWVUMedicine Barnesville HospitalComment on above:These are unconfirmed results and should not be used for legal purposes. Drug Cut-Off Concentration: AMPH 1000 ng/mL GABRIELA 200 ng/mL SIVA 200 ng/mL COCM 300 ng/mL OP 300 ng/mL PCP 25 ng/mL THC 20 ng/mLCarbon dioxide, total [Moles/volume] in Serum or PlasmaOrdered By: Robert Caruso on 51-48-3244WF1 [Moles/Vol]29.6 mmol/L21.0-31.0[facility] Chloride [Moles/volume] in Serum or PlasmaOrdered By: Robert Caruso on 05-25-2023 Chloride [Moles/Vol]102 mmol/P43-036GdeopcecqMercy Health Defiance HospitalCreatinine [Mass/volume] in Serum or PlasmaOrdered By: Robert Caruso on 51-18-0187Umamxobbgs [Mass/Vol]0.76 mg/dL0.60-1.20[facility] HospitalEosinophils Auto (Bld) [#/Vol]Ordered By: Robert Caruso on 28-70-8711Wbbkbffzuqi (Bld) [#/Vol]0.0 10*3/uL0.0-0.45[facility] HospitalEosinophils/100 WBC Auto (Bld) Ordered By: Robert Caruso on 52-05-6715Gxxdpdepgfi/100 WBC (Bld)0.1 %.[facility] HospitalErythrocyte distribution width Auto (RBC) [Ratio]Ordered By: Robert Caruso on 84-14-5985Eaupyqxaboh distribution width (RBC) [Ratio]12.9 % 11.9-15.3FOhioHealth Marion General HospitalEthanol [Mass/volume] in Serum or PlasmaOrdered By: Robert Caruso on 43-40-4783Itygmim [Mass/Vol]mg/dLMercy Health Defiance HospitalEthanol [Mass/Vol]TNPMercy Health Defiance Hospital Comment on above:Test not performedGlobulin Calc (S) [Mass/Vol]Ordered By: Robert Caruso on 50-49-7619Vlfsrnon (S) [Mass/Vol]2.9 g/dLMercy Health Defiance HospitalGlucose [Mass/volume] in Serum or PlasmaOrdered By: Robert Caruso on 93-11-2315Ksjvqhi [Mass/Vol]120 mg/mR88-532QtoineluhMercy Health Defiance Hospital Comment on above:ADA recommended reference rangeRandom Glucose Reference Range is dependent on time and content of last meal. Glucose of more than 200 mg/dL in a nonstressed, ambulatory subject supports the diagnosisof Diabetes Mellitus. HCG ( test) IA.rapid Ql (U)Ordered By: Robert Caruso on 55-90-1779WXP ( test) Ql (U)NegativeMercy Health Defiance HospitalHematocrit Auto (Bld) [Volume fraction]Ordered By: Robert Caruso on 09-41-0954Qrzripqalj (Bld) [Volume fraction]41.6 %34.0-46.4FOhioHealth Marion General HospitalHemoglobin [Mass/volume] in BloodOrdered By: Robert Caruso on 53-15-9515Tajhsazmll (Bld) [Mass/Vol]14.1 g/dL11.8-15.4FOhioHealth Marion General HospitalLeukocytes [#/volume] corrected for nucleated erythrocytes in Blood by Automated coun Ordered By: Robert Caruso on 42-25-2605CLS corrected for nucl RBC Auto (Bld) [#/Vol]7.0 10*3/uL3.8-11.6FOhioHealth Marion General HospitalLymphocytes Auto (Bld) [#/Vol]Ordered By: Robert Caruso on 39-79-1509Cvvzkaopopv (Bld) [#/Vol]1.1 10*3/uL1.00-4.8[facility] HospitalLymphocytes/100 WBC Auto (Bld) Ordered By: Robert Caruso on 13-17-8912Oewzmhmjsul/100 WBC (Bld)15.5 %.[facility] CenterH Auto (RBC) [Entitic mass]Ordered By: Robert Caruso on 49-55-6151XDR (RBC) [Entitic mass]29.9 pg24.7-34.3FOhioHealth Marion General HospitalMCHC Auto (RBC) [Mass/Vol]Ordered By: Robert Caruso on 21-98-9666NERM (RBC) [Mass/Vol]34.0 g/dL32.0-35.0[facility] HospitalMCV Auto (RBC) [Entitic vol]Ordered By: Robert Caruso on 84-25-2838DVF (RBC) [Entitic vol]87.8 fL 80-100[facility] HospitalMonocyte distribution width [Entitic volume] in Blood by AutomatedOrdered By: Robert Caruso on 33-93-5127Bspvldmq distribution width Auto (Bld) [Entitic vol]17.76 %0.00-20.00[facility] HospitalMonocytes Auto (Bld) [#/Vol]Ordered By: Robert Caruso on 05-25-2023 Monocytes (Bld) [#/Vol]0.3 10*3/uL0.0-0.8[facility] Monocytes/100 WBC Auto (Bld)Ordered By: Robert Caruso on 60-54-3645Iagcuntic/100 WBC (Bld)3.9 %.[facility] HospitalNeutrophils Auto (Bld) [#/Vol] Ordered By: Robert Caruso on 99-88-6121Gwnozrmvtuz (Bld) [#/Vol]5.6 10*3/uL1.8-7.7 [facility] HospitalNeutrophils/100 WBC Auto (Bld)Ordered By: Robert Caruso on 75-61-3351Rjskjbghdqb/100 WBC (Bld)80.0 %.[facility] HospitalNo Panel InformationOrdered By: Robert Caruso on 12-19-0134Ofxaadehp GFR (CKD-EPI)> 60.0 mL/MinMercy Health Defiance HospitalPharmacy Creatinine Clearance (Chem59.72[facility] HospitalNucleated erythrocytes [Presence] in Blood by Automated countOrdered By: Robert Caruso on 05-25-2023 Nucleated RBC Auto Ql (Bld)0.0 /100{WBC}0-0.5FOhioHealth Marion General Hospital Opiates [Presence] in Urine by Screen methodOrdered By: Robert Caruso on 86-98-1443Tbskvpb Screen Ql (U)NegativeNegativeMercy Health Defiance Hospital Phencyclidine Screen Ql (U)Ordered By: Robert Caruso on 50-43-8658Fweotthkoaldy Ql (U)NegativeNegativeMercy Health Defiance HospitalPlatelet mean volume Auto (Bld) [Entitic vol]Ordered By: Robert Caruso on 42-05-7183Wtlmijpp mean volume (Bld) [Entitic vol]7.9 fL6.3-10.7FOhioHealth Marion General HospitalPlatelets Auto (Bld) [#/Vol]Ordered By: Robert Caruso on 98-25-1169Efgyfundr (Bld) [#/Vol]292 10*3/dE948-130NezxddntoMercy Health Defiance HospitalPotassium [Moles/volume] in Serum or PlasmaOrdered By: Robert Caruso on 36-24-4816Cbwzknmrf [Moles/Vol]3.7 mmol/L 3.5-5.1FOhioHealth Marion General HospitalProtein [Mass/volume] in Serum or Plasma Ordered By: Robert Caruso on 41-01-5669Yxlhjtc [Mass/Vol]7.3 g/dL6.4-8.9[facility] HospitalRBC Auto (Bld) [#/Vol]Ordered By: Robert Caruso on 94-34-8561KSF (Bld) [#/Vol]4.74 10*6/uL3.60-5.00[facility] Hospitalerum or plasma albumin/globulin mass ratioOrdered By: Robert Caruso on 76-49-4376Egooloc/Globulin [Mass ratio]1.5 {ratio}[facility] Hospitalerum or plasma anion gap determinationOrdered By: Robert Caruso on 12-43-2822Qnqbl gap [Moles/Vol]10.1 mmol/L6.0-15.0[facility] Hospitalodium [Moles/volume] in Serum or PlasmaOrdered By: Robert Caruso on 27-71-6614Uixezy [Moles/Vol]138 mmol/Y728-955LlizyzwedMercy Health Defiance Hospital Urea nitrogen [Mass/volume] in Serum or PlasmaOrdered By: Robert Caruso on 26-75-6960Poth nitrogen [Mass/Vol]12 mg/dL7-25[facility] WBC Auto (Bld) [#/Vol]Ordered By: Robert Caruso on 29-20-2150DNZ (Bld) [#/Vol]7.0 10*3/uL3.8-11.6FOhioHealth Marion General Hospital.Fentanyl Scrn wo Conf,Uron 95-83-5887Mq Fentanyl ScrnNegativeNormalNEG <1.0BlAvita Health System [facility] Comment on above:Performed By: #### [id number] #### [address] [address]Ds Fentanyl Scrn Qnt0.10 ng/mLNormal<=0.99[facility] HospitalComment on above:Performed By: #### [id number] #### [address] [address].eGFRon 48-95-4312DGN/1.73 sq M.predicted MDRD (S/P/Bld) [Vol rate/Area]mL/min/{1.73_m2}Normal>=60BlAvita Health System Galion HospitalComment on above:Result Comment: [facility] have implemented the eGFR calculation [...] Age = yearsPerformed By: #### EGFR #### [address] [address]IAN w/ Diffon 43-92-2257Iccidzhzftc distribution width (RBC) [Ratio]13.2 %Yogyns70.6-14.8BWright-Patterson Medical CenterComment on above: Performed By: #### CBC #### [address] [address]Aafeigoxxx (Bld) [Volume fraction]40.9 %Zzajtc11.0-46.0 [facility] HospitalComment on above:Performed By: #### CBC #### [address] [address]Dmjydnbvel (Bld) [Mass/Vol]13.9 g/cCEekmik51.0-16.0[facility] HospitalComment on above:Performed By: #### CBC #### [address] [address]WNM (RBC) [Entitic mass]30.1 kwVohucs08.0-35.0[facility] HospitalComment on above:Performed By: #### CBC #### [address] [address]SFXN41.1 %Otsljp93.0-37.0[facility] HospitalComment on above:Performed By: #### CBC #### [address] [address]JBV (RBC) [Entitic vol]88.2 fELvrwzo75.0-100.0[facility] HospitalComment on above:Performed By: #### CBC #### [address] [address]Bpklzzit142 x10*3/jjTSelmgn981-570OhvmafrepSelect Medical Ohiohealth Rehabilitation HospitalComment on above:Performed By: #### CBC #### [address] [address]Sqyhommz mean volume (Bld) [Entitic vol]7.6 fLNormal6.7-10.6 [facility] HospitalComment on above:Performed By: #### CBC #### [address] [address]JGT0.63 x10*6/mcLNormal3.80-5.20[facility] Comment on above:Performed By: #### CBC #### [address] [address]SJD0.6 x10*3/mcLNormal4.5-11.0[facility] Comment on above:Performed By: #### CBC #### [address] [address]GMTgs 76-68-4675Mkqpwfh [Mass/Vol]4.5 g/dLNormal3.2-4.9 [facility] HospitalComment on above:Performed By: #### COMP #### [address] [address]Awzuvla/Globulin [Mass ratio]1.4 {ratio}Normal1.1-2.2BWright-Patterson Medical CenterComment on above:Performed By: #### COMP #### [address] [address]Srf Phos47 IU/KWzagtj10-60FrnizzwbhSelect Medical Ohiohealth Rehabilitation HospitalComment on above:Performed By: #### COMP #### [address] [place] [address]DTK [Catalytic activity/Vol]18 U/YPuhsbx26-10WgonwxmotSelect Medical Ohiohealth Rehabilitation HospitalComment on above:Performed By: #### COMP #### [address], [place] [address]Nhtit gap [Moles/Vol]14 mmol/LNormal7-17[facility] HospitalComment on above:Performed By: #### COMP #### [address], [place] [address]UBI [Catalytic activity/Vol]28 U/OFgtvmg60-41UhdjiaubpSelect Medical Ohiohealth Rehabilitation HospitalComment on above:Performed By: #### COMP #### [address], [place] [address]Iowg Total0.8 mg/dLNormal0.3-1.2BWright-Patterson [facility] Center Comment on above:Performed By: #### COMP #### [address], [place] [address]Kjammpb [Mass/Vol]10.1 mg/dLNormal8.5-10.3BWright-Patterson Medical CenterComment on above:Performed By: #### COMP #### [address], [place] [address]Kysthvgm [Moles/Vol]100 mmol/HPtpico97-421EmcgyxhkcSelect Medical Ohiohealth Rehabilitation HospitalComment on above:Performed By: #### COMP #### [address], [place] [address]BA0 [Moles/Vol]27 mmol/KFawwzy79-91KrtyapzgbSelect Medical Ohiohealth Rehabilitation HospitalComment on above:Performed By: #### COMP #### [address], [place] [address]Ijkadjlgyc [Mass/Vol]0.96 mg/dLNormal0.44-1.03[facility] HospitalComment on above:Performed By: #### COMP #### [address], [place] [address]Sdgjiqd [Mass/Vol]116 mg/lJSfob93-19OhzlcauglSelect Medical Ohiohealth Rehabilitation HospitalComment on above:Performed By: #### COMP #### [address] [address]Ubzzjwofh [Moles/Vol]4.0 mmol/LNormal3.4-4.8BWright-Patterson Medical CenterComment on above:Performed By: #### COMP #### [address] [address]Avfzpia [Mass/Vol]7.8 g/dLNormal6.5-8.1BWright-Patterson Medical CenterComment on above:Performed By: #### COMP #### [address] [address]Kkldis [Moles/Vol]137 mmol/BJrsopg458-331ShnsztyrjSelect Medical Ohiohealth Rehabilitation HospitalComment on above:Performed By: #### COMP #### [address] [address]Qssa nitrogen [Mass/Vol]13 mg/dLNormal8-26[facility] HospitalComment on above:Performed By: #### COMP #### [address] [address]Djqs nitrogen/Creatinine [Mass ratio]13.5 mg/ncMagqtg14.0-20.0 [facility] HospitalComment on above:Performed By: #### COMP #### [address] [address]LM Brain w/o Contraston 21-13-9650IX Brain w/o ContrastCT Brain w/o Contrast: 05/20/2023 [...] or other acute finding. Radiation Dose Estimate: CTDI(mGy):0.666846 / / / kVp:120.889372 / mAs:0.682497 / / / DLP(mGy- cm):5.867454Gdya Part: Head CTDI(mGy):44.818196 / / / kVp:120.993035 / mAs:182.073245 / / / DLP(mGy- cm):813.071503Syek Part: Head Final Dictated by: Tremayne Butler MD Dictated DT/TM: 05.20.2023 2:48 pm Signed by: Tremayne Butler MD Signed (Electronic Signature): 05.20.2023 2:50 pm (If Report Is Signed, Electronically Signed in Other Vendor System)Normal [facility] Rehabilitation HospitalDiff Autoon 35-18-0968Xfro Absolute0.0 x10*3/mcL Normal0.0-0.2BWright-Patterson Medical CenterComment on above:Performed By: #### .Automated Diff #### [address] [address]Gaysrlmgb/100 WBC (Bld)0.5 %Normal0.0-1.5BWright-Patterson Medical CenterComment on above:Performed By: #### .Automated Diff #### [address] [address]Rzu Absolute0.0 x10*3/mcLNormal0.0-0.4BWright-Patterson Medical CenterComment on above:Performed By: #### .Automated Diff #### [address] [address]Pcsjgtytwuh/100 WBC (Bld)0.4 %Normal0.0-5.4BWright-Patterson Medical CenterComment on above:Performed By: #### .Automated Diff #### [address] [address]Tubcx Absolute1.3 x10*3/mcLNormal1.0-4.8BWright-Patterson Medical CenterComment on above:Performed By: #### .Automated Diff #### [address] [address]Pritbtylvtt/100 WBC (Bld)22.8 %Low27.2-40.8BWright-Patterson Medical CenterComment on above:Performed By: #### .Automated Diff #### [address] [address]Atjy Absolute0.3 x10*3/mcLNormal0.1-1.1BWright-Patterson Medical CenterComment on above:Performed By: #### .Automated Diff #### [address] [address]Hwruuwxsn/100 WBC (Bld)5.2 %Normal3.7-11.9BWright-Patterson Medical CenterComment on above:Performed By: #### .Automated Diff #### [address] [address]Pgmlkc Absolute4.0 x10*3/mcLNormal1.8-7.7BWright-Patterson Medical CenterComment on above:Performed By: #### .Automated Diff #### [address] [address]Zgmkxm Auto71.1 %High47.2-70.8BW[facility] Comment on above:Performed By: #### .Automated Diff #### [address] [address]BW Clinical Summaryon 11-40-7518FY Clinical Summary [address] [address] ED Clinical Summary Person Information Name: Donnie Bullock Amber/[facility] Age: 67 Years : 1955 Sex: Female PCP: Remigio Simpson MD Marital Status: Phone: Race: White Ethnicity: Not or Language: Malian Visit Reason: Psychiatric screening exam; psych screen Acuity: 2 Enc Type: Emergency Med Service: Emergency Medicine Arrival: 05/20/2023 13:12:08 Discharge: 05/20/2023 17:38:00 LOS: 000 04:26 Checkin: 05/20/2023 13:12:08 Checkout: 05/20/2023 17:38:00 Dispo Type: Home or Self Care Address: [address] [place] [address] [address] [place] [id number] Provider Notes: Diagnosis: 1:Encounter for medical screening [...] range between ( 27.2 and 40.8 ) Apache Auto: 5.2 % -- Normal range between [...] range between ( 36.0 and 46.0 ) [place] Absolute: 0.3 x10 MCH: 30.1 pg -- [...] 05/20/2023 15:28:08 Follow up: With: Address: When: [facility] With: Address: When: Remigio Simpson [address] [place] [phone] Business (1) Within 1 week Discharge Orders: Discharge Patient 05/20/23 17:30:00 EST, Discharge to Home, Self Patient Education Information: Anxiety Reaction [facility] Poison Help line: . [facility] Hotline: [place] Tobacco Quit Line: [place], [place]) [address]: [phone] [place], [place]) [address]: (more content not included)...[facility]ED [facility]-Nursingon 81-93-5277GR Note-NursingPatients reports patient had covid 04/21/23 and most of her symptoms are stemming from that;increased memory loss, confusion, weight loss, panic attacks. Patient did take Paxlovid. Patient was seen at [facility] on Wednesday and taken off Xanax as they felt her hallucinations could be from that, and they prescribed hydroxizine. 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 Patient denies SI and HI but is frustrated that she is having these issues and is not her normal self. Electronically signed by Odalys Munroe 05/20/23 14:33 ESTNormalSelect Medical Ohiohealth Rehabilitation HospitalED Note-Physicianon [id number] Note-PhysicianChief Complaint pt was sent over by [...] High Lymph Auto 05/20/23 15:21 22.8 Low Apache Auto 05/20/23 15:21 5.2 Eos Auto 05/20/23 15:21 0.4 Basophil Auto 05/20/23 15:21 0.5 Neutro Absolute 05/20/23 15:21 4.0 Lymph Absolute 05/20/23 15:21 1.3 Apache Absolute 05/20/23 15:21 0.3 Eos Absolute 05/20/23 [...] By: Tremayne Butler MD Electronically signed by Bronson Sherri ROGERS 05/25/23 20:00 [facility] ED Note-PhysicianChief Complaint pt was sent over [...] obtain a CT head and have social worker aide speak with the patient she was sent in by her therapist that she describes it Sign out to Dr. Hernandez at the end of my shift for disposition and social worker aide recommendation Assessment/Plan Psychiatric screening exam (Complaint of) [...] Anuj Gilbert MD / (more content not included)...NormalSelect Medical Ohiohealth Rehabilitation HospitalEthanolon 11-78-9452Qdfikyi, Plasma<10Normal<=9BWright-Patterson Medical CenterComment on above:Result Comment: To convert mg/dL to g/dL, divide result by 1,000. Legal limit of intoxication is 80mg/dL (0.08 g/dL). Performed By: #### ALC #### [address] [address]FBL Compon 16-17-1469Gblzmxxyjh [Mass/Vol]100.2 mg/dLNormal [facility] HospitalComment on above:Performed By: #### CD:[id number] #### [address] [address]Fb Amph ScrnNegativeNormalNEG = <1000[facility] HospitalComment on above:Performed By: #### CD:[id number] #### [address] [address]An Gabriela ScrnNegativeNormalNEG = <200[facility] HospitalComment on above:Performed By: #### CD:[id number] #### [address] [address]Mt Benzodia ScrnNegativeNormalNEG = <200[facility] HospitalComment on above:Performed By: #### CD:[id number] #### [facility] [address] [facility], [place] [address]Ar Cannab ScrnNegativeNormalNEG = <50[facility] SystemComment on above:Performed By: #### CD:[id number] #### [facility] [address] [facility], [place] [address]Jy Cocaine ScrnNegativeNormalNEG = <300[facility] Hospital SystemComment on above:Performed By: #### CD:[id number] #### [facility] [address] [facility], [place] [address]Fd Methadone ScnNegativeNormalNEG = <300[facility] HospitalComment on above:Performed By: #### CD:[id number] #### [facility] [address] [place] [address], [place] [address]Tx Opiate ScrnNegativeNormalNEG = <300[facility] HospitalComment on above:Performed By: #### CD:[id number] #### [facility] [address] [facility], [place] [address]Fs Oxy ScreenNegativeNormalNEG = <100[facility] HospitalComment on above:Performed By: #### CD:[id number] #### [facility] [address] [facility], [place] [address]Hd Oxy Scrn Qnt9 ng/mLNormal<=99[facility] Comment on above:Performed By: #### CD:[id number] #### [facility] [address] [place] [address], [place] [address]Oy PCP ScrnNegativeNormalNEG = <25[facility] HospitalComment on above:Performed By: #### CD:[id number] #### [facility] [address] [facility], [place] [address]BY pH7.2Bvpmrh6.5 - 7.8BSelect Medical [facility] Clinic Rehabilitation Hospital, Edwin Shaw SystemComment on above:Performed By: #### CD:[id number] #### [facility] [address] [place], [place] [address]XP Spec Grav1.334Cobkab4.003-1.035[facility] Rehabilitation HospitalComment on above:Performed By: #### CD:[id number] #### [facility] [address] [place], [place] [address]Ndtgigp Colonoscopyon 52-02-0532Rrwtbfy Colonoscopy [id number]#1.00CD:127[facility] - YoungstownReminderson 81-02-5839Micbrxkrb From: Sarah Griffiths LPN To: Marilu - Clinical; Sent: 01/28/2023 13:00:59 EDT Show up: 12/27/2032 07:00:00 EDT Subject: colonoscopy recall Due Date/Time: 01/27/2033 07:00:00 EDT Reminder/Recall Patient due for screening colonoscopy 01/27/2033.[facility] - YoungstownConsent for Procedure/Surgeryon 23-14-9101Cybjeph for Procedure/Surgery [id number]#1.00CD:127[facility] YoungstownAmbulatory Visit Summaryon 84-66-9534Gdrdqhrzpy Visit Summary DONNIE BULLOCK :1955 Visit Date:01/08/2023 [...] no longer receiving treatment for. Carpal tunnel [facility] YoungstownRAD - CT Reporton 34-26-9054MKU - CT [id number]#1.00CD:[address] [place], [place] [address]Physician Referralon 54-59-7572Mvwvzodtf Referral [id number]#1.00CD:[address] [place], [place] [address]CBC AUTO DIFFon 24-53-5896SEFJ #0.0 103/ulNormal0.0-0.1Premier HealthComment on above:Performed By: #### CBC #### [facility] [address] [place] [address] Dr. Jess Waresophils/100 WBC (Bld)0.4 %Normal0.2-2.0[facility] Comment on above:Performed By: #### CBC #### [facility] [address] [address] [address] Jess Lemons #0.0 103/ulNormal0.0-0.7The [facility] County HospitalComment on above: Performed By: #### CBC #### [facility] [address] [address] [address] Jess Riceosinophils/100 WBC (Bld)0.4 %Critically low0.9-7.0The [facility] HospitalComment on above:Performed By: #### CBC #### [facility] [address] [place] [address] Dr. Jess Ricerythrocyte distribution width (RBC) [Ratio]12.5 %Kyacjy08.0-15.0 The [facility] HospitalComment on above:Performed By: #### CBC #### [facility] [address] [place] [address] Dr. Jess MarieHematocrit (Bld) [Volume fraction]43.1 %Nvsnbr71.0-48.0The [facility] HospitalComment on above:Performed By: #### CBC #### [facility] [address] [place] [address] Dr. Jess MarieHemoglobin (Bld) [Mass/Vol]14.0 g/dHYfnouf49.0-16.0The [facility] on above:Performed By: #### CBC #### [facility] [address] [place] [address] Dr. Jess Belcher #0.01 10e3/ulNormal0.00-0.03The [facility] HospitalComment on above:Performed By: #### CBC #### [facility] [address] [place] [address] Dr. Jess Belcher %0.2 %Normal0.0-0.5The [facility] HospitalComhillsdale hospital on above: Performed By: #### CBC #### [facility] [address] [place] [address] Dr. Jess FernandesH #1.4 103/ulNormal1.2-3.8The [facility] HospitalComment on above:Performed By: #### CBC #### [facility] [address] [place] [address] Dr. Jess Kenneymphocytes/100 WBC (Bld)26.8 %Aahdun10.5-60.0The [facility] HospitalComhillsdale hospital on above:Performed By: #### CBC #### [facility] [address] [place] [address] Dr. Jess NoyolaUAL DIFF REQNONormalThe [facility] HospitalComment on above: Performed By: #### CBC #### [facility] [address] [place] [address] Dr. Jess Sepulveda (RBC) [Entitic mass]29.7 pwDanynv42.7-34.0The [facility] HospitalComment on above:Performed By: #### CBC #### [facility] [address] [place] [address] Dr. Jess Sepulveda (RBC) [Mass/Vol]32.5 g/aSOfbcqs21.9-35.2The [facility] HospitalComment on above:Performed By: #### CBC #### [facility] [address] [place] [address] Dr. Jess Sepulveda (RBC) [Entitic vol]91.3 rUBnynnu54.0-99.0The [facility] HospitalComment on above:Performed By: #### CBC #### [facility] [address] [place] [address] Dr. Jess Wellington #0.3 103/ulNormal0.3-0.8The [facility] HospitalComment on above:Performed By: #### CBC #### [facility] [address] [place] [address] Dr. Jess Zarateocytes/100 WBC (Bld)5.2 %Normal1.7-12.0The [facility] Comment on above:Performed By: #### CBC #### [facility] [address] [place] [address] Dr. Jess Garcia #3.5 103/ulNormal1.4-6.5The [facility] HospitalComment on above:Performed By: #### CBC #### [facility] [address] [place] [address] Dr. Jess Chavarriautrophils/100 WBC (Bld)67.0 %Nifnbh63.0-75.0The [facility] HospitalComment on above:Performed By: #### CBC #### [facility] [address] [place] [address] Dr. Jess Andersonlet mean volume (Bld) [Entitic vol]9.7 fLNormal9.5-13.5The [facility] HospitalComment on above:Performed By: #### CBC #### [facility] [address] [address] [address] Jess MariePLT230 103/dpXyyyvr558-304Hvg [facility] on above: Performed By: #### CBC #### [facility] [address] [address] [address] Jess MarieRBC4.72 106/ulNormal4.20-5.40The [facility] HospitalComhillsdale hospital on above:Performed By: #### CBC #### [facility] [address] [place] [address] Dr. Jess MarieWBC5.2 103/ulNormal4.0-11.0[facility] on above: Performed By: #### CBC #### [facility] [address] [place] [address] Dr. Jess MarieGLYCOHEMOGLOBIN A1Con 68-39-6033JSN RECOMMENDATIONSEE BELOWSelect Medical Specialty Hospital - Columbus SouthComhillsdale hospital on above:Result Comment: ADA RECOMMENDED LIMIT 4.0 - 6.0 ADA THERAPEUTIC TARGET < 7.0 ACTION SUGGESTED > 7.0Performed By: #### A1C #### [facility] [address] [place] [address] Dr. Jess MarieGlucose [Mass/Vol]123 mg/dLNoNewark Hospital on above:Performed By: #### A1C #### [facility] [address] [place] [address] Dr. Jess MarieHbA1c (Bld) [Mass fraction]5.9 %Normal4.5-6.2[facility] on above:Performed By: #### A1C #### [facility] [address] [place] [address] Dr. Jess MarieLIPID PROFILEon 73-78-0807CNQW-HDL RATIO NORMSEE [facility] on above:Result Comment: 3.3 - 4.4 LOW RISK 4.4 - 7.1 AVERAGE RISK 7.1 - 11.0 MODERATE RISK >11.0 HIGH RISKPerformed By: #### TSH, LIVER, BMP, LIPID #### [facility] [address] [address] [address] Jess MarieCholesterol [Mass/Vol]267 mg/dLCritically high<=200[facility] on above:Performed By: #### TSH, LIVER, BMP, LIPID #### [facility] [address] [address] [address] Jess MarieCholesterol in HDL [Mass/Vol]79 mg/dLCritically fokk13-61Iet [facility] HospitalComhillsdale hospital on above:Performed By: #### TSH, LIVER, BMP, LIPID #### [facility] [address] [address] [address] Jess MarieCholesterol in LDL [Mass/Vol]172.4 mg/dLNoMorrow County HospitalComhillsdale hospital on above:Performed By: #### TSH, LIVER, BMP, LIPID #### [facility] [address] [address] [address] Jess Mgesterrenae.total/Cholesterol in HDL [Mass ratio]3.4 {ratio} NormalPremier HealthComhillsdale hospital on above:Performed By: #### TSH, LIVER, BMP, LIPID #### [facility] [address] [address] [address] Jess Esquivel NORMAL> or = 60 mg/dl - LOW CARDIOVASCULAR RISK <40 mg/dl - HIGH CARDIOVASCULAR RISKSt. Anthony's HospitalComhillsdale hospital on above:Performed By: #### TSH, LIVER, BMP, LIPID #### [facility] [address] [address] [address] Jess MarieLDL CALC NORMALSEE BELOWSt. Anthony's HospitalComment on above:Result Comment: <100 mg/dl OPTIMAL 100 - 129 mg/dl NEAR OR ABOVE OPTIMAL 130 - 159 mg/dl BORDERLINE HIGH 160 - 189 mg/dl HIGH >190 mg/dl VERY HIGH Performed By: #### TSH, LIVER, BMP, LIPID #### [facility] [address] [address] [address] Jess MarieTriglyceride [Mass/Vol]78 mg/dLNormal<=150[facility] Comment on above:Performed By: #### TSH, LIVER, BMP, LIPID #### [facility] [address] [address] [address] Jess PutnamLDL CALC15.6 mg/dLNormalThe [facility] HospitalComment on above: Performed By: #### TSH, LIVER, BMP, LIPID #### [facility] [address] [place] [address] Dr. Jess Valerio PROFILEon 41-35-3421Wicuwxc [Mass/Vol]3.9 g/dLNormal3.4-5.0 The [facility] HospitalComment on above:Performed By: #### TSH, LIVER, BMP, LIPID #### [facility] [address] [place] [address] Dr. Jess MarieAlbumin/Globulin [Mass ratio]0.9 {ratio}NormalThe [facility] HospitalComment on above:Performed By: #### TSH, LIVER, BMP, LIPID #### [facility] [address] [place] [address] Dr. Jess Kidd [Catalytic activity/Vol]61 U/QDyoayc96-164Knf [facility] HospitalComment on above:Performed By: #### TSH, LIVER, BMP, LIPID #### [facility] [address] [place] [address] Dr. Jess Penaloza [Catalytic activity/Vol]25 U/MKdtdfg34-75Bbo [facility] HospitalComment on above:Performed By: #### TSH, LIVER, BMP, LIPID #### [facility] [address] [place] [address] Dr. Jess Zaldivar [Catalytic activity/Vol]27 U/FXhhsby11-05Fij [facility] HospitalComment on above:Performed By: #### TSH, LIVER, BMP, LIPID #### [facility] [address] [place] [address] Dr. Jess Bazan, CONJUGATED0.1 mg/dLNormal0.0-0.2The [facility] Comment on above:Performed By: #### TSH, LIVER, BMP, LIPID #### [facility] [address] [place] [address] Dr. Jess MarieBilirubin [Mass/Vol]0.7 mg/dLNormal0.2-1.0[facility] Comment on above:Performed By: #### TSH, LIVER, BMP, LIPID #### [facility] [address] [place] [address] Dr. Jess MarieGlobulin (S) [Mass/Vol]4.2 g/dLNormalThe [facility] HospitalComment on above:Performed By: #### TSH, LIVER, BMP, LIPID #### [facility] [address] [place] [address] Dr. Jess MarieProtein [Mass/Vol]8.1 g/dLNormal6.4-8.2The [facility] Comment on above:Performed By: #### TSH, LIVER, BMP, LIPID #### [facility] [address] [place] [address] Dr. Jess MariePROF CHEM 8 (BAS METB)on 80-78-1821Zcmra gap [Moles/Vol]13.1 mmol/LNormalPremier HealthComment on above:Performed By: #### TSH, LIVER, BMP, LIPID #### [facility] [address] [place] [address] Dr. Jess MarieCalcium [Mass/Vol]9.6 mg/dLNormal8.5-10.1[facility] Comment on above:Performed By: #### TSH, LIVER, BMP, LIPID #### [facility] [address] [place] [address] Dr. Jess MarieChloride [Moles/Vol]105 mmol/WCoxmtd36-049Gab [facility] Comment on above:Performed By: #### TSH, LIVER, BMP, LIPID #### [facility] [address] [place] [address] Dr. Jess MarieCO2 [Moles/Vol]28.9 mmol/NAqxpxo07.0-32.0[facility] Comment on above:Performed By: #### TSH, LIVER, BMP, LIPID #### [facility] [address] [place] [address] Dr. Jess MarieCreatinine [Mass/Vol]0.62 mg/dLNormal0.55-1.02The German Hospitalment on above:Performed By: #### TSH, LIVER, BMP, LIPID #### [facility] [address] [address] [address] Jess RiceGFR-AF PAPUA NEW GUINEAN>60Normal>=60The [facility] HospitalComment on above:Performed By: #### TSH, LIVER, BMP, LIPID #### [facility] [address] [address] [address] Jess RiceGFR-NON AF PAPUA NEW GUINEAN>60Normal>=60The German Hospitalment on above:Performed By: #### TSH, LIVER, BMP, LIPID #### [facility] [address] [address] [address] Jses MarieGlucose [Mass/Vol]112 mg/dLCritically xywa92-865Sag [facility] HospitalComment on above:Performed By: #### TSH, LIVER, BMP, LIPID #### [facility] [address] [address] [address] Jess MariePotassium [Moles/Vol]5.0 mmol/LNormal3.5-5.1[facility] Comment on above:Result Comment: specimen slightly hemolyzedPerformed By: #### TSH, LIVER, BMP, LIPID #### [facility] [address] [address] [address] Jess MarieSodium [Moles/Vol]142 mmol/GTnmwsi117-340Rrp [facility] Comment on above:Performed By: #### TSH, LIVER, BMP, LIPID #### [facility] [address] [address] [address] Jess MarieUrea nitrogen [Mass/Vol]15.0 mg/dLNormal7.0-18.0The [facility] on above:Performed By: #### TSH, LIVER, BMP, LIPID #### [facility] [address] [address] [address] Jess MarieUrea nitrogen/Creatinine [Mass ratio]24.2 mg/mgNormalThe [facility] HospitalComment on above:Performed By: #### TSH, LIVER, BMP, LIPID #### [facility] [address] [address] [address] Jess Burnette 26-72-1128DFR1.518 uIU/mLNormal0.358-3.740The [facility] HospitalComment on above:Performed By: #### TSH, LIVER, BMP, LIPID #### [facility] [id number] Jess Burger CAROTID ART BILon [id number] CAROTID ART BILEXAMINATION: US CAROTID ART KEN [...] Electronically authenticated by: HERSON REBOLLEDO Date: 2022-09-10 12:26[facility] HospitalXR ABD FLAT_UPon [id number] ABD FLAT_UPEXAMINATION: XR ABD FLAT_UP HISTORY: Constipation COMPARISON: No relevant comparison available. FINDINGS: BOWEL GAS PATTERN: Large amount of stool throughout the colon without abnormal dilation or obstruction. FREE AIR: None. CALCIFICATIONS: None significant. BONES: Scoliotic curvature of lumbar spine. No fracture. OTHER: Negative. IMPRESSION: 1. Large stool burden compatible with constipation. 2. No bowel obstruction. Electronically authenticated by: HERSON REBOLLEDO Date: 2022-06-10 08:38[facility] HospitalCovid-19 PCR (CVDTBH)on 19-60-1363WYLM-CoV-2 (COVID-19) RNA YAYA+probe Ql (Unsp spec)Not detectedNormalNOT DETECTEDThe [facility] Comment on above:Result Comment: This test is not yet approved or cleared by the [place] FDA. When there are no FDA-approved or cleared tests available, and other criteria are met, FDA can make tests available under an emergency access mechanism called an Emergency Use Authorization (EUA). The EUA for this test is supported by the [employer] of Health and Human Service's (HHS's) declaration [...] consistent with SARS-CoV-2.Performed By: #### CVDTBH #### [facility] [address] [place] [address] Dr. Jess Marie Vital Signs Date TimeVital SignValuePerforming WmjqxprfqIvfuhjlf36-11-6582 09:19-0400Body .6 cmSteven Rusher DPM Work Phone: [facility] HospitalBuqisvbuym12-93-0344 09:19-0400Body mass index (BMI) [Ratio]28.32 kg/o9Jyvcwk Rusher DPM Work Phone: [facility] HospitalXqmxtpghzn55-79-0267 09:19-0400Body hgcvko54.84 kgSteven Chapincitoher DPM Work Phone: [facility] HospitalQjsdauiavs14-91-9209 10:46-0400Body lkoogf090.37 cmRemigio Simpson MD Work Phone: [facility]09-04-2025 10:46-0400 Body mass index (BMI) [Ratio]30.7 kg/m2Remigio Simpson MD Work Phone: [facility]09-04-2025 10:46-0400 Body awexjpprjsu96.8 [degF]Remigio Simpson MD Work Phone: [facility]09-04-2025 10:46-0400 Body gnzjri04.04 kgRemigio Simpson MD Work Phone: [facility]09-04-2025 10:46-0400 Diastolic blood nsjhtwva38 mm[Hg]Remigio Simpson MD Work Phone: [facility]09-04-2025 10:46-0400 Heart rate66 /minRemigio Simpson MD Work Phone: [facility]09-04-2025 10:46-0400 SaO2% (BldA) [Mass fraction]98 %Remigio Simpson MD Work Phone: [facility]09-04-2025 10:46-0400 Systolic blood pxrigboe784 mm[Hg]Remigio Simpson MD Work Phone: [facility]06-19-2025 09:02-0400 Body .6 cmSteven Rusher DPM Work Phone: [facility] HospitalHtexdoybcm10-35-3296 09:02-0400Body mass index (BMI) [Ratio]28.32 kg/f2Wsjkxj Rusher DPM Work Phone: [facility] HospitalMptytmfywo24-32-5544 09:02-0400Body djpmao63.84 kgSteven Rusher DPM Work Phone: [facility] HospitalEqofcvgsky39-21-7301 14:21-0400Body oxbmxj575.6 cmRemigio Simpson MD Work Phone: [facility] HospitalYbioaueopq25-81-5359 14:21-0400Body mass index (BMI) [Ratio]28.32 kg/m2Remigio Simpson MD Work Phone: [facility] HospitalMggwfwienl54-40-3482 14:21-0400Body temperature 96.6 [degF]Remigio Simpson MD Work Phone: [facility] HospitalLsuqopeezd22-95-1635 14:21-0400Body znyxry22.84 kgRemigio Simpson MD Work Phone: noC[facility] HealthUeqslvsomv13-50-2024 14:21-0400Diastolic blood rdigkxzb08 mm[Hg]Remigio Simpson MD Work Phone: noCarondelet HealthMtvdvbvnqe48-80-5152 14:21-0400Heart rate76 /min Remigio Simpson MD Work Phone: noCarondelet HealthIhnxvjoddt26-78-6354 14:21-0400Respiratory rate22 /minRemigio Simpson MD Work Phone: [facility] HospitalXivceuzhfm37-76-6473 14:21-6965TzE3% (BldA) [Mass fraction]98 %Remigio Simpson MD Work Phone: noCarondelet HealthKbsbkanbtc12-92-9088 14:21-0400Systolic blood hmtczezo916 mm[Hg]Remigio Simpson MD Work Phone: noCarondelet HealthPmfltagjky24-91-8732 08:41-0500Body mass index (BMI) [Ratio]27.55 kg/a8Ynkwptcufwf Chandrika DO Work Phone: noCarondelet HealthChpctfascn81-82-5889 08:41-0500Body nzfiyk31.94 kgChristopher Chadnrika DO Work Phone: noCarondelet HealthBxmhiqtxyn90-19-9443 08:41-0500Diastolic blood lgsjutia11 mm[Hg]Christopher Chandrika DO Work Phone: noCarondelet HealthLertjayito78-31-1666 08:41-0500Heart rate79 /min Christopher Chandrika DO Work Phone: [facility] HospitalAdzfvrgkpb42-58-4528 08:41-5552UxF2% (BldA) [Mass fraction]97 %Christopher Chandrika DO Work Phone: noCarondelet HealthGryvfojemj03-18-1690 08:41-0500Systolic blood ecbascxu832 mm[Hg]Christopher Chandrika DO Work Phone: noCarondelet HealthAllrxldjzh02-52-6237 09:38-0500Body foeoaq092.8 cmSteven Rusher DPM Work Phone: [facility] HospitalBkgyuslxqo04-70-8127 09:38-0500Body mass index (BMI) [Ratio]26.87 kg/y1Rtmrkmmei Uribe DPM Work Phone: [facility] HospitalGgjmzsgznr74-47-8941 09:38-0500Body cdeksg74.12 kgStsheila Uribe DPM Work Phone: [facility] HospitalQoonyfbthk36-87-6797 12:37-0500Body .8 kg Sera Killian [employer]ISTICS SUPPORT Work Phone: [facility]12-04-2024 12:37-0500Diastolic blood kwyrdvdb51 mm[Hg]Sera Killian [employer]ISTICS SUPPORT Work Phone: [phone]12-04-2024 12:37-0500Heart rate76 /min Sera Killian [employer].LOGISTICS SUPPORT Work Phone: [phone]12-04-2024 12:37-0500Systolic blood yrtoalem387 mm[Hg]Sera Killian [employer]IL[employer].LOGISTICS SUPPORT Work Phone: [phone]11-04-2024 13:52-0500Body mass index (BMI) [Ratio]26.4 kg/i8Whzgoagjgyw Chandrika DO Work Phone: [facility] HospitalLpgxkhzxcg27-88-7001 13:52-0500Body jnewrh60.85 kgChristopher Chandrika DO Work Phone: [facility] HospitalFqggnnfkqj86-28-5078 13:52-0500Diastolic blood qxbhhoat88 mm[Hg]Christopher Chandrika DO Work Phone: [place] [address]Aopmuvvtvn70-24-0565 13:52-0500Heart rate77 /min Christopher Chandrika DO Work Phone: [place] [address]Rlqyqzxems10-31-9106 13:52-6496KoY3% (BldA) [Mass fraction]96 %Christopher Chandrika DO Work Phone: [place] [address]Tyozsjrivk75-56-9739 13:52-0500Systolic blood otzfttgd220 mm[Hg]Christopher Chandrika DO Work Phone: [facility] HospitalTipbcsvpnp38-17-4659 09:22-0400Body ajxigb004.8 cmSteven Rusher DPM Work Phone: [facility] HospitalBbekycyehf81-66-6513 09:22-0400Body mass index (BMI) [Ratio]27.04 kg/y6Caerbu Rusher DPM Work Phone: [facility] HospitalNpawfunubb58-13-5858 09:22-0400Body tspoyn15.58 kgSteven Rusher DPM Work Phone: [facility] HospitalBgovemkujo95-23-8440 11:45-0400Body mass index (BMI) [Ratio]27.11 kg/s8Abzbifkyywd Chandrika DO Work Phone: [facility] HospitalQziykujjin15-61-0486 11:45-0400Body fksbca91.76 kgChristopher Chandrika DO Work Phone: [facility] HospitalZvhqqhbsmc71-75-1951 11:45-0400Diastolic blood mm[Hg]Rei Cobos DO Work Phone: [facility] HospitalVkskqufhcn77-83-5534 11:45-0400Heart rate73 /min Christopher Chandrika DO Work Phone: [facility] HospitalUsbqdfkcjz37-38-3806 11:45-7601NeD2% (BldA) [Mass fraction]97 %Christopher Chandrika DO Work Phone: [facility] HospitalQbaxuxidpl63-94-2307 11:45-0400Systolic blood wikiopjo772 mm[Hg]Christopher Chandrika DO Work Phone: [facility] HospitalMiabintwas97-94-9207 07:30-0400Body nsbehxhmajr21 [degF]MD Remigio Simpson Work Phone: [facility]05-08-2024 07:30-0400 Diastolic blood nhrngejt16 mm[Hg]MD Remigio Simpson Work Phone: [facility]05-08-2024 07:30-0400 Heart rate73 /minMD Remigio Simpson Work Phone: [phone] [place], [place] 0305405-08-2024 07:30-0400 Respiratory rate18 /minMD Remigio Simpson Work Phone: [phone]05-08-2024 07:30-0400 SaO2% (BldA) [Mass fraction]99 %MD Remigio Simpson Work Phone: [phone] [address]05-08-2024 07:30-0400 Systolic blood bicsqwdf397 mm[Hg]MD Remigio Simpson Work Phone: [phone])[address]05-07-2024 08:44-0400 Body jvptof849.1 cmMD Remigio Simpson Work Phone: [phone]05-06-2024 08:42-0400 Body .6 kgMD Remigio Simpson Work Phone: [phone])[address]04-30-2024 22:32-0400 Body ctvatwmccvb81 [degF]MD Remgiio Simpson Work Phone: [phone]04-30-2024 22:32-0400 Diastolic blood gpdrhrhu70 mm[Hg]MD Remigio Simpson Work Phone: [phone])[address]04-30-2024 22:32-0400 Heart rate81 /minMD Remigio Simpson Work Phone: [phone])[phone]04-30-2024 22:32-0400 Respiratory rate18 /minMD Remigio Simpson Work Phone: 1(856)160-[address] [place], [place] [address]305404-30-2024 22:32-0400 SaO2% (BldA) [Mass fraction]97 %MD Remigio Simpson Work Phone: [phone])[address]04-30-2024 22:32-0400 Systolic blood sbgmqqyf705 mm[Hg]MD Remigio Simpson Work Phone: [phone]04-30-2024 19:45-0400 Body laozll459.1 cmMD Remigio Simpson Work Phone: [facility]04-30-2024 19:45-0400 Body bcapwq62.85 kgMD Remigio Simpson Work Phone: [facility]01-23-2024 07:30-0500 Body .6 [degF][facility]01-23-2024 07:30-0500Diastolic blood ambmsdcb91 mm[Hg][facility] 06-08-2023 07:30-0500Heart rate75 /[facility] 06-08-2023 07:30-0500Respiratory rate16 /[facility] 06-08-2023 07:30-7928YgA3% (BldA) [Mass fraction]97 %[facility]01-23-2024 07:30-0500Systolic blood mm[Hg][facility]01-22-2024 09:00-0500Body ffbnaq34.5 kg[facility]01-19-2024 10:17-0500Body vayxle906.37 cm[facility] 05-25-2023 14:29-0500Diastolic blood bavdckaw04 mm[Hg]DO Robert Zuly Work Phone: [facility]01-09-2024 14:29-0500 Heart rate91 /minDO Robert Zuly Work Phone: [facility]01-09-2024 14:29-0500 Respiratory rate18 /minDO Robert Zuly Work Phone: [facility]01-09-2024 14:29-0500 SaO2% (BldA) [Mass fraction]98 %DO Robert Zuly Work Phone: [facility]01-09-2024 14:29-0500 Systolic blood mm[Hg]DO Robert Zuly Work Phone: [facility]01-09-2024 13:06-0500 Body cuvxjoiaoqk37.3 [degF]DO Robert Caruso Work Phone: [facility]01-09-2024 11:38-0500 Body ndruha464.1 cmDO Robert Zuly Work Phone: [facility]01-09-2024 11:38-0500 Body wghsva68.1 kgDO Robert Caruso Work Phone: [facility]08-25-2023 13:49-0400 Diastolic blood gcqfhfgu64 mm[Hg]Amor NILL General Surgery Ylnhmnze10-05-2598 13:49-0400Heart rate 80 /minMichael NILL [facility] Surgery Lascfbzi91-63-8044 13:49-0400 Respiratory rate16 /minMichael NILL [facility] Surgery Dskzwlng04-23-5054 13:49-0400Systolic blood tjqvtewb255 mm[Hg]Amor NILL General Surgery [place] Encounters Encounter DateEncounter TypeCare ProviderFacilityStart: 03-19-2025 End: 97-60-3450rybiugmoioFUBQI [facility]: 03-17-2025 End: 50-58-2183ymnunqhzvnWkvq NadererFacility:[facility] Start: 92-05-7245Gyg-patient / Non-visitMarc Calvin [facility] Work Phone: Start: 02-06-2025 End: 37-22-9154Jsudla flowsheetSteven A Rusher DPM Work Phone: noMS [place] PodiatryStart: 02-06-2025 End: 64-67-0573Hrkinr flowsheetSteven A Rusher DPM Work Phone: noMS [place] PodiatryStart: 02-06-2025 End: 54-23-3141Hcytpsa encounter procedureSteven A Rusher DPM Work Phone: noms [place] PodiatryComment on above:Dermatophytosis of nail (Primary Dx); Dystrophic nail; Pain around toenail, right foot; Pain around toenail, left footStart: 02-06-2025 End: 14-69-4222llqvtujaihNCWVTT A RUSHERNot AvailableStart: 01-18-2025 End: 60-51-3280pztpngyljyCigh Naderer MD Work Phone: [facility] Work Phone: Start: 01-18-2025 End: 24-97-9279Prtozkj encounter [facility] Work Phone: Start: 01-02-2025 End: 30-54-9707KfonvuHkdp Naderer MD Work Phone: noms [facility] FMComment on above:DALILA (generalized anxiety disorder)Start: 12-15-2024 End: 02-25-5822lyzdvvkjtdMLLQNAdena Health Systemtart: 11-10-2024 End: 41-97-6209torfzhghmiXREWQAdena Health Systemtart: 11-02-2024 End: 24-81-6377Mvhhge flowsheetSteven A Rusher DPM Work Phone: noms PODIATRYStart: 11-02-2024 End: 17-93-4944Ldeacu flowsheetSteven A Rusher DPM Work Phone: noms PODIATRYStart: 11-02-2024 End: 52-06-6375Efkjjvb encounter procedureSteven A Rusher DPM Work Phone: noms PODIATRYComment on above:Dermatophytosis of nail (Primary Dx); Dystrophic nail; Pain around toenail, right foot; Pain around toenail, left footStart: 11-02-2024 End: 78-47-9752itvsbpodjxMHXNEN A RUSHERNot AvailableStart: 09-29-2024 End: 62-52-5334Rveaay OnlyRemigio Simpson MD Work Phone: NOMS CWM FMComment on above:DALILA (generalized anxiety disorder) ([facility]/HCC)Start: 09-13-2024 End: 19-39-8226Gvjdos outpatient visit 15 minutesRemigio Simpson MD Work Phone: N[facility] CWM FMComment on above:Dehydration (Primary Dx); Nausea and vomiting, unspecified vomiting type; Lewy body dementia with behavioral disturbance ([facility]); DALILA (generalized anxiety disorder) ([facility]); Secondary parkinsonism, unspecifiedStart: 09-13-2024 End: 05-41-6548oetddykzbgPPQO NADERERNot AvailableStart: 09-13-2024 End: 78-40-8603Pqeuxqzane Simpson MD Work Phone: [facility] CWM FMStart: 09-13-2024 End: 54-23-0297Rloptzopal Simpson MD Work Phone: [facility] CWM FMStart: 09-12-2024 End: 11-96-8640Anvawxiks encounterRemigio Simpson MD Work Phone: [facility] CWM FMStart: 08-22-2024 End: 24-56-7376LbqmgvCbal Naderer MD Work Phone: [facility] CWM FMComment on above:Candidal skin infection (Primary Dx); Constipation, unspecified constipation typeStart: 08-14-2024 End: 77-72-3463Xwmvdedxp encounterRemigio Simpson MD Work Phone: [facility] C[facility] FMComment on above:Med RefillStart: 08-02-2024 End: 41-05-0655pmxyqcldgeNFGJ NADERERNot AvailableStart: 08-01-2024 End: 51-23-9866rkuqhcxlmoTKUANJ A RUSHERNot AvailableStart: 07-31-2024 End: 11-55-3412vlqndjrrpkZXUJAQWQNKN HASSETTNot AvailableStart: 07-27-2024 End: 13-56-0901DjlvnoDbrcrwgeh Lyndsay Dennys GRIFFITHSLOGISTICS SUPPORT Work Phone: NeurologyComment on above:Refill RequestStart: 07-10-2024 End: 95-00-8815Yuarhscyn department patient visitRABETTYE AMLakeHealth TriPoint Medical Centertart: 66-09-8912Yfrlyyxzc department patient visitWIJUAN MIGUEL [facility] Southtart: 07-10-2024 End: 33-26-4380Rucpiduwt Result EncounterRemigio Simpson MD Work Phone: noms External Department UnsolicitedStart: 07-10-2024 End: 94-09-8320Feolteayt Result EncounterRemigio Simpson MD Work Phone: noms External Department UnsolicitedStart: 07-10-2024 End: 89-09-6397Mgifubyt Result EncounterRemigio Simpson MD Work Phone: noms External Department UnsolicitedStart: 07-10-2024 End: 26-33-1564Fyzfgbpx ReferredRemigio Simpson MD Work Phone: [facility] Path Spec [place] HospStart: 07-10-2024 End: 26-59-6717Qgxbgr OnlyRemigio Simpson MD Work Phone: noms CWM FMComment on above:Dysuria (Primary Dx)Start: 07-06-2024 End: 11-62-2604comjgkkhahGbobbjkbqri Chandrika DO Work Phone: ana BELLEVUEStart: 91-13-6661rtjzhrxyarCWF ZAMZAMLima City Hospitaltart: 06-09-2024 End: 29-27-6064Njloyjkzvg and management of inpatientDIONIS [facility] Hospitaltart: 12-16-0835Lzq-patient / Non-visitRemigio Simpson MD Work Phone: [facility] Work Phone: Start: 83-22-7934yjxccndqypBcoddgjavpy Abdelaziz [facility]tart: 09-44-6017Tppdqknkco Recurring Remigio Simpson MD Work Phone: [facility]Start: 05-29-2024 End: 78-24-1496Umwdbd outpatient new 45 minutesChristopher Chandrika DO Work Phone: ana GEORGIWALKComment on above:Lewy body dementia with psychotic disturbance, unspecified dementia severity (CMS/HCC) (Primary Dx) Start: 05-29-2024 End: 36-28-9841dpicwuqbukRgzlusome F Nelson APRN.LOGISTICS SUPPORT Work Phone: NeurologyComment on above:HelloStart: 05-26-2024 End: 26-83-4383Gtlxekoaz Result EncounterRemigio Simpson MD Work Phone: noms External Department UnsolicitedStart: 05-26-2024 End: 81-61-8545Itlfyvvcp Result EncounterRemigio Simpson MD Work Phone: noms External Department UnsolicitedStart: 05-26-2024 End: 54-93-7629Xbsobffwt encounterSera Killian APRN.LOGISTICS SUPPORT Work Phone: NeurologyComment on above:Called Back; Patient Question (Spouse requesting a return phone call)Start: 05-22-2024 End: 14-76-0003BrwsaxMiqlahszd F Nelson APRN.LOGISTICS SUPPORT Work Phone: NeurologyStart: 05-15-2024 End: 27-03-5146Khcknxqfi encounterSera Killian APRN.LOGISTICS SUPPORT Work Phone: NeurologyComment on above:Patient Question; Patient Update (Spouse requesting to speak with nurse)Start: 05-04-2024 End: 12-65-0397Btaxkf Javon Simpson MD Work Phone: noms CWM FMComment on above:Generalized weakness (Primary Dx); Rapidly progressive dementia (CMS/HCC); Unsteady gaitStart: 05-03-2024 End: 65-24-4644Jsuoqt flowsheetSteven A Rusher DPM Work Phone: NOQR PODIATRYStart: 05-03-2024 End: 04-87-0121Sspitk flowsheetSteven A Rusher DPM Work Phone: NOXF PODIATRYStart: 05-03-2024 End: 82-09-9915Lvbllpf encounter procedureSteven A Rusher DPM Work Phone: noms PODIATRYComment on above:Dermatophytosis of nail (Primary Dx); Dystrophic nail; Pain around toenail, right foot; Pain around toenail, left footStart: 05-03-2024 End: 14-11-5533rtiddgieesAFKUIS A RUSHERNot AvailableStart: 05-01-2024 End: 39-57-8317Jsouds flowsheetGretchen Miller PORTAL DEVELOPER Work Phone: noms FB PTStart: 05-01-2024 End: 73-01-3655Qsoldd flowsheetGretchen Miller PORTAL DEVELOPER Work Phone: noms FB PTStart: 05-01-2024 End: 58-36-8312dbipqaiolxZxiyhxry Miller PORTAL DEVELOPER Work Phone: noms FB PTComment on above:Generalized weakness (Primary Dx); Rapidly progressive dementia (CMS/HCC); Unsteady gaitStart: 04-27-2024 End: 97-08-4215Jiisfx flowsheetGretchen Miller PORTAL DEVELOPER Work Phone: NOMS FB PTStart: 04-27-2024 End: 99-51-7510Traxnw flowsheetGretchen Miller PORTAL DEVELOPER Work Phone: NOFF FB PTStart: 04-27-2024 End: 68-68-8716lirxthozneYfcwlnhe Miller PORTAL DEVELOPER Work Phone: NOMS FB PTComment on above:Generalized weakness (Primary Dx); Rapidly progressive dementia (CMS/HCC); Unsteady gaitStart: 04-25-2024 End: 75-03-5372Qrvbxx flowsheetBeti Malhotratersall PTANOMS FB PTStart: 04-25-2024 End: 43-14-8374Oiiwsj flowsheetMariaelana Tattersall PTANOMS FB PTStart: 04-25-2024 End: 99-94-9806Ckieokafi encounterSera Killian APRN.LOGISTICS SUPPORT Work Phone: NeurologyComment on above:Medication Follow-upStart: 04-25-2024 End: 61-55-2226pghzeclxiwFsapwe Tattersall PTANOMS FB PTComment on above: Generalized weakness (Primary Dx); Rapidly progressive dementia (CMS/HCC); Unsteady gaitStart: 04-20-2024 End: 63-35-1258Mubgly flowsJose Miller PORTAL DEVELOPER Work Phone: NOMS FB PTStart: 04-20-2024 End: 69-24-9308Hgsbzn flowsJose Miller PORTAL DEVELOPER Work Phone: NOMS FB PTStart: 04-20-2024 End: 17-62-2942Zbirdfilq encounterSera Killian APRN.LOGISTICS SUPPORT Work Phone: NeurologyStart: 04-20-2024 End: 01-39-8949pyiokczeolHylqhjjy Miller PORTAL DEVELOPER Work Phone: NOMS FB PTComment on above:Generalized weakness (Primary Dx); Rapidly progressive dementia (CMS/HCC); Unsteady gaitStart: 04-19-2024 End: 11-47-9993mdkqaolgycVZOOBGDIU F NELSONFacility:[facility] Start: 04-19-2024 End: 16-27-5405Rbqwctx encounter procedureSera Killian APRN.LOGISTICS SUPPORT Work Phone: NeurologyComment on above:Lewy body dementia with behavioral disturbance (HCC) (Primary Dx); Other depression; RBD (REM behavioral disorder); Secondary parkinsonism, unspecified secondary Parkinsonism type (HCC); Visual hallucinationsStart: 04-18-2024 End: 53-99-3647Sbalil flowsheetMariah Tattersall PTANOMS FB PTStart: 04-18-2024 End: 52-47-5325Jvpfmq flowsheetMaradalgisah Tattersall PTANOMS FB PTStart: 04-18-2024 End: 73-17-0909tkrvuhhswpGqanfw Tattersall PTANOMS FB PTComment on above: Generalized weakness (Primary Dx); Rapidly progressive dementia (CMS/HCC); Unsteady gaitStart: 04-12-2024 End: 70-56-0060Kwrnsxhlm Result EncounterRemigio Simpson MD Work Phone: noms External Department UnsolicitedStart: 04-12-2024 End: 50-44-3671Gdafzpwjd Result EncounterRemigio Simpson MD Work Phone: noms External Department UnsolicitedStart: 04-12-2024 End: 16-32-9190Ynvfzf OnlyRemigio Simpson MD Work Phone: noms CWM FMComment on above:Dysuria (Primary Dx) Urinary tract infection without hematuria, site unspecifiedStart: 04-06-2024 End: 36-88-4258Bzcytj flowsheetBeti Tattersall PTANOMS FB PTStart: 04-06-2024 End: 10-99-6247Verhdc flowsheetBeti Tattersall PTANOMS FB PTStart: 04-06-2024 End: 71-87-3241zgawamvazaQjwppo Tattersall PTANOMS FB PTComment on above: Generalized weakness (Primary Dx); Rapidly progressive dementia (CMS/HCC); Unsteady gaitStart: 04-04-2024 End: 05-56-8028Jhlurn Alicia Mcnair PT Work Phone: NOMS FB PTStart: 04-04-2024 End: 80-28-0699Miosqa Alicia Mcnair PT Work Phone: NOMS FB PTStart: 04-04-2024 End: 08-86-9801lacneajnsqTbxq J Flor PT Work Phone: NOBL FB PTComment on above:Generalized weakness (Primary Dx); Rapidly progressive dementia (CMS/HCC); Unsteady gait; DizzinessStart: 03-30-2024 End: 32-39-1601nsrozbrmccDpzjtacw Wright PORTAL DEVELOPER Work Phone: NOZM FB PTComment on above:Generalized weakness (Primary Dx); Rapidly progressive dementia (CMS/HCC); Unsteady gaitStart: 03-28-2024 End: 99-89-0467Cpxmxt flowsheetMariah Tattersall PTANOMS FB PTStart: 03-28-2024 End: 21-62-3726Btnkuz flowsheetMariah Tattersall PTANOMS FB PTStart: 03-28-2024 End: 41-15-5190iiuqpoahokFjxuuv Tattersall PTANOMS FB PTComment on above: Generalized weakness (Primary Dx); Rapidly progressive dementia (CMS/HCC); Unsteady gaitStart: 03-22-2024 End: 63-51-1798Vkfses flowsheetKyle J Flor PT Work Phone: NOWP FB PTStart: 03-22-2024 End: 56-85-3824Sqbzuf flowsheetKyle J Flor PT Work Phone: NOQS FB PTStart: 03-22-2024 End: 82-42-8964njywtjiavcCpky J Flor PT Work Phone: NOMS FB PTComment on above:Generalized weakness (Primary Dx); Rapidly progressive dementia (CMS/HCC); Unsteady gait; DizzinessStart: 03-20-2024 End: 52-51-5542Mcyxot outpatient visit 25 minutesChristopher Chandrika DO Work Phone: NOWE [place] R[address]TEComment on above:Lewy body dementia with psychotic disturbance, unspecified dementia severity (CMS/HCC) (Primary Dx); AnxietyStart: 03-20-2024 End: 51-12-7994abaqydzlypHVZYDACCCKT HASSETTNot AvailableStart: 03-20-2024 End: 08-88-8201odmohpgpoqQysqrvez Wright PORTAL DEVELOPER Work Phone: NOMS FB PTComment on above:Generalized weakness (Primary Dx); Rapidly progressive dementia (CMS/HCC); Unsteady gaitStart: 03-16-2024 End: 70-77-5030kqmdsyhtfwKsjw Francesco Mcnair PT Work Phone: NOMS FB PTComment on above:Generalized weakness (Primary Dx); Rapidly progressive dementia (CMS/HCC); Unsteady gaitStart: 03-14-2024 End: 95-87-6406Rwqvrweom encounterRemigio Simpson MD Work Phone: NOMS CWM FMStart: 03-09-2024 End: 17-10-1062Drdkvz Javon Simpson MD Work Phone: NOUF CWM FMStart: 02-17-2024 End: 74-62-6725Tdfbgl Javon Simpson MD Work Phone: NOJE CWM FMComment on above:DALILA (generalized anxiety disorder) (CMS/HCC) (Primary Dx)Start: 02-09-2024 End: 07-37-6786Hxiuzmjb SupportGeorgina Sanford PT Work Phone: NOIJ SWS PTHComment on above:Dizziness (Primary Dx); Rapidly progressive dementia (CMS/HCC); Bilateral primary osteoarthritis of kneeStart: 02-02-2024 End: 05-70-1056Rwuemj flowsheetSteven A Rusher DPM Work Phone: NOMS PODIATRYStart: 02-02-2024 End: 52-77-1868Xysusb flowsheetSteven A Rusher DPM Work Phone: NOMS PODIATRYStart: 02-02-2024 End: 98-54-8705Ldrteno encounter procedureSteven A Rusher DPM Work Phone: NOMS PODIATRYComment on above:Dermatophytosis of nail (Primary Dx); Dystrophic nail; Pain around toenail, right foot; Pain around toenail, left footStart: 01-25-2024 End: 00-78-9054Drderq flowsheetChristopher Chandrika DO Work Phone: noms [facility] ROUTEStart: 01-25-2024 End: 84-78-1898Yifscl flowsheetChristopher Chandrika DO Work Phone: noms [facility] ROUTEStart: 01-25-2024 End: 48-85-8973Kpbdan outpatient visit 25 minutesChristopher Chandrika DO Work Phone: noms [facility] ROUTEComment on above:Lewy body dementia with psychotic disturbance, unspecified dementia severity (CMS/HCC) (Primary Dx)Start: 12-29-2023 End: 61-02-7053Lomgdvjst Result EncounterRemigio Simpson MD Work Phone: noms External Department UnsolicitedStart: 12-29-2023 End: 13-40-0767Oabgjeqqp Result EncounterRemigio Simpson MD Work Phone: noms External Department UnsolicitedStart: 09-15-2023 Non-patient / Non-visitMD Remigio Simpson Work Phone: [facility] Work Phone: Start: 09-14-2023 End: 52-98-4263Reskvzhyft and management of inpatientMD Remigio Simpson Work Phone: [phone] Work Phone: Start: 09-14-2023 End: 47-60-4314Reellmfzv Result EncounterChristopher Chandrika DO Work Phone: noms External Department UnsolicitedStart: 09-14-2023 End: 67-64-3622Skaalvevu Result EncounterChristopher Chandrika DO Work Phone: noms External Department UnsolicitedStart: 06-30-2023 Clinisync Result EncounterRemigio Simpson MD Work Phone: noms External Department UnsolicitedStart: 06-30-2023 Clinisync Result EncounterRemigio Simpson MD Work Phone: noms External Department UnsolicitedStart: 06-30-2023 Telephone encounterRemigio Simpson MD Work Phone: noms CWM FMStart: 34-29-4972Xqeubn OnlyRemigio Simpson MD Work Phone: noms CWM FMComment on above:Recurrent UTI (Primary Dx); DALILA (generalized anxiety disorder) (CMS/HCC); Neck pain; MDD (major depressive disorder), recurrent episode, mild (HCC) (CMS/HCC)Start: 28-36-1043Lldipbuayz and management of inpatientDO Robertjahaira Caruso Work Phone: [phone] Work Phone: Start: 23-15-8292Egq-patient / Non-visitAt[facility] Work Phone: Start: 05-20-2023 End: 53-92-4392Hhzxhpzzb department patient visitRemigio Simpson MD [facility]: 01-27-2023 End: 07-88-4117mpinlmszlrHkhbbos R NILLFacility:CD:[id number]: 01-08-2023 End: 70-24-6701dpolhxlbpyQtpejuu R NILLFacility: [facility]Start: 01-08-2023 End: 80-99-2669Idhpyqv encounter procedureMichael R NILL General Surgery Nill/[place] [place] Start: 46-72-4938ckoysevyhaDmnqthg R NILLFacility: [facility]vueStart: 09-10-2022 End: 79-64-6226dbrxzzdsjeFI REMIGIO A NADERERFacility:T3Myges: 06-09-2022 End: 31-04-5914xyywgwwjrvFJ REMIGIO A NADERERFacility:I9Dfngn: 03-12-2022 End: 59-75-8193szojharihtTJ REMIGIO A NADERERFacility:G7Fqnel: 11-04-2021 End: 45-33-3594xyihdjtdwyJS REMIGIO A NADERERFacility:H1 Procedures DateProcedureProcedure DetailPerforming ClinicianStart: 67-85-8361Rektsdt bacterial quanttative colony count urineRemigio Simpson MD Work Phone: Start: 01-40-1450EAG UA (CLEAN/CATCH) MICROSCOPIC IF INDICATERemigio Simpson MD Work Phone: Start: 95-63-8585BWN UA (CLEAN/CATCH) MICROSCOPIC IF INDICATERemigio Simpson MD Work Phone: Start: 83-94-1319AOO UA (CLEAN/CATCH) MICROSCOPIC IF INDICATERemigio Simpson MD Work Phone: Start: 43-51-5064CM TOMOSYNTHESIS SCREENING Bran Simpson MD Work Phone: Start: 03-58-6285EswwutrtqmuCxxc Naderer MD Work Phone: Start: 50-13-3005IT ABDOMEN PELVIS WO/W CONChristfaustinoer Chandrika DO Work Phone: Start: 84-14-1907Bw thorax w/o & w/contrast material Rei Cobos DO Work Phone: Start: 10-36-9770SUF UA (CLEAN/CATCH) MICROSCOPIC IF INDICATERemigio Simpson MD Work Phone: Start: 18-15-6160KudxymexredFkta Naderer MD Work Phone: Start: 36-09-0878FkvmglmeuefPfkhajb NILL Start: 55-94-7050gxchd carpal tunnel releaseMichael NILL Start: 69-02-7970llwa carpal tunnel releaseMichael NILL Adenoid excisionMichael NILL Dilation and curettage of uterusMichael NILL Comment on above:2005History of decompression of median nerveHx of carpal tunnel repairRemigio Simpson MD Work Phone: tonsillectomy 2Michael NILL Comment on above:1958Vaginal hysterectomyMichael NILL Plan of Treatment DateCare ActivityDetailAuthorStart: 55-81-3630Vlksnoeni for malignant neoplasm of colonNOMS HealthcareStart: 46-44-4240ODO Vaccine (1 - 1-dose 75+ series)RSV Vaccine (1 - 1-dose 75+ series)[facility] Systemtart: 05-14-2025 End: 21-82-8875Safgjuj encounter wodynlvoy18/29/2025 2:15 PM EST Procedure Visit [facility] [address] [facility]GENER[facility]ON[facility] [phone] Herson Uribe DPM [address] [place] [address] [facility] PodiatryStart: 24-02-0027XqehiTrumbull Memorial Hospitaltart: 02-06-2025 End: 82-95-4513Vyzapdg encounter procedureNOMS PODIATRYComment on above: ArrivedStart: 01-18-2025 End: 00-76-8540Azuoixn encounter bmbyvebav86/04/2025 10:30 AM EDT Office Visit NOMShahriar VASQUEZ [address] [place] [address] Remigio Simpson MD [address] [place] [address] NOMS CWM FMStart: 73-90-8578KAFFR-19 Vaccine ( season)COVID-19 Vaccine ( season)[facility]S HealthcareStart: 01-85-2955Iqbfftvvt vaccinationInfluenza Vaccine (#1)NOMS HealthcareStart: 45-70-8551Ngnpqrsdi for malignant neoplasm of breastMammogramNOMS HealthcareStart: 12-04-2024 End: 52-08-1817Ypqawcq encounter ladmywjtb97/21/2025 11:00 AM EDT Office Visit [facility] FM [address] [place] [address] Remigio Simpson MD [address] [place] [address] NOM[facility] CWM FMStart: 11-02-2024 End: 72-74-7761Ehsgmla encounter procedureNOMS PODIATRYComment on above: ArrivedStart: 09-13-2024 End: 70-31-4662Dlqbsww encounter tiptrdvdi76/30/2025 2:15 PM EDT Office Visit [facility] FM [address] [place] [address] Remigio Simpson MD [address] [place] [address] ArrivedNOMS CW FMComment on above:ArrivedStart: 08-01-2024 End: 84-48-2851Uvmwvfb encounter iwmzvgimj56/18/2025 9:30 AM EDT Office Visit [facility] [address] [place] [address] Herson Uribe, DPTrinity [address] [place] [address] NOMS PODIATRYStart: 07-27-2024 End: 02-33-9715Stdwgmm encounter ptzjzgesl52/13/2025 10:30 AM EDT Office Visit Neurology [address] [place] [address] Sera Killian APRN.LOGISTICS SUPPORT [address] [phone] ReportNeurologyComment on above:ReportStart: 07-19-2024 End: 87-04-0730Pqwhngh encounter procedureANA [facility]OSPITALtart: 07-10-2024 End: 99-88-6998Cgfmelpf identified in Urine by CultureLiberty Hospital Work Phone: Comment on above:Expected: 07/10/2024 (Approximate), Expires: 07/10/2025Start: 07-10-2024 End: 61-08-9374Rmmskulqyh complete panel - UrineUrinalysis with reflex microscopic (clean catch) Lab Routine Dysuria Expected: 07/10/2024 (Approxima te), Expires: 07/10/2025Liberty HospitalComment on above:Expected: 07/10/2024 (Approximate), Expires: 07/10/2025Start: 62-87-9915Eendj [facility]tart: 06-19-2024 End: 36-39-0578Ooldnuk encounter procedureNOUNIVERSITY HOSPITALS [facility] ROUTEStart: 06-12-2024 End: 39-43-7193Zpbbzdz encounter wvqamhmgh93/27/2025 12:00 PM EST Office Visit [facility] [address] [place] [phone] Rei Cobos DO [address] [place] [address] [facility] ROUTEStart: 05-29-2024 End: 33-44-9703Kdygfsd encounter procedureNOMS WI NEUROStart: 37-44-4217Pxnpejd Directive DiscussionAdvance Directive DiscussionCleveland ClinicStart: 05-04-2024 End: 15-79-0544upznjmyuvc16/19/2024 11:30 AM EST Treatment N[facility] JEANNIE CHRISTIANSON [address] [place] [address] Deneen Miller, PORTAL DEVELOPER [address] [place] [address] NOMS FB PTStart: 05-03-2024 End: 81-22-4400Lbydxsc encounter procedureNOMS FH PODIATRYComment on above: ArrivedStart: 05-01-2024 End: 82-11-2858rlcogubnzc54/16/2024 7:30 AM EST Treatment N[facility] FB PT [address] [place] [address] Deneen Miller, PORTAL DEVELOPER [address] [place] [address] NOMS FB PTStart: 04-28-2024 End: 40-00-1293jgwedvlijn54/13/2024 10:00 AM EST Treatment [facility] FB PT [address] [place] [address] Alexandria Mcnair, PT [address] [place] [address] NOMS FB PTStart: 04-27-2024 End: 75-70-6836dllnbgcsdq33/12/2024 10:00 AM EST Treatment [facility] FB PT [address] [place] [address] Alexandria Mcnair, PT [address] [place] [address] NOMS FB PTStart: 04-25-2024 End: 31-43-0246kcbhiadmwb23/10/2024 10:30 AM EST Treatment [facility] FB PT [address] [place] [address] Deneen Miller, PORTAL DEVELOPER [address] [place] [address] NOMS FB PTStart: 04-20-2024 End: 39-40-5247supeuozdbb45/05/2024 11:30 AM EST Treatment [facility] FB PT [address] [place] [address] Deneen Miller, PORTAL DEVELOPER [address] [place] [address] NOMS FB PTStart: 04-18-2024 End: 17-22-4128fnhbpphhjrMNVF FB PTComment on above:ArrivedStart: 04-12-2024 End: 55-37-2619Okztzwfn identified in Urine by CultureUrine culture (clean catch) Microbiology Routine Dysuria Expected: 04/12/2024 (Approximate), Expires: 04/12/2025[facility] Work Phone: Comment on above:Expected: 04/12/2024 (Approximate), Expires: 04/12/2025Start: 04-12-2024 End: 33-20-0766Rkttubtlgk complete panel - UrineUrinalysis with reflex microscopic (clean catch) Lab Routine Dysuria Expected: 04/12/2024 (Approxima te), Expires: 04/12/2025NOMS HealthcareComment on above:Expected: 04/12/2024 (Approximate), Expires: 04/12/2025Start: 04-11-2024 End: 59-68-0573mfmkcpdmzi95/26/2024 11:00 AM EST Treatment [facility] FB PT [address] [place] [address] Beti Chávez PTANOMS FB PT Start: 04-06-2024 End: 77-63-7456froifmjwxeITBE FB PTComment on above:ArrivedStart: 04-04-2024 End: 76-39-9974ndqcwmnmurOJHN FB PTComment on above:ArrivedStart: 03-30-2024 End: 52-05-9391iktjghtntv44/14/2024 11:30 AM EST Treatment N[facility] FB PT [address] [place] [address] Deneen Miller, PORTAL DEVELOPER [address] [place] [address] NOMS FB PTStart: 03-28-2024 End: 39-76-3741ajoslnyuan82/12/2024 11:00 AM EST Treatment [facility] FB PT [address] [place] [address] Beti Chávez PTANOMS FB PT Start: 03-22-2024 End: 77-46-9892tewvpszckiHLPA FB PTComment on above:ArrivedStart: 03-20-2024 End: 86-79-9125Bggzwtb encounter xivvetbdy49/04/2024 2:00 PM EST Office Visit [facility] [address] [place] [address] Rei Cobos, [address] [place], [place] [address] [facility] ROUTEStart: 03-20-2024 End: 09-39-0940fqzxmpeqej82/04/2024 12:30 PM EST Treatment N[facility] FB PT [address] [place] [address] Deneen Miller, PORTAL DEVELOPER [address] [place] [address] NOMS FB PTStart: 03-16-2024 End: 53-40-7448qjomxmlvip99/31/2024 12:30 PM EDT Evaluation [facility] FB PT [address] [place] [address] Alexandria Mcnair, PT [address] [place] [address] NOMS FB PTStart: 03-14-2024 End: 43-34-0587Lekztpyo identified in Urine by CultureUrine culture (clean catch) Microbiology Routine Dysuria Expected: 03/14/2024 (Approximate), Expires: 03/14/2025[facility] Work Phone: Comment on above:Expected: 03/14/2024 (Approximate), Expires: 03/14/2025Start: 03-14-2024 End: 10-78-4598Ujmriwhmhl complete panel - UrineUrinalysis with reflex microscopic (clean catch) Lab Routine Dysuria Expected: 03/14/2024 (Approxima te), Expires: 03/14/2025NOMS HealthcareComment on above:Expected: 03/14/2024 (Approximate), Expires: 03/14/2025Start: 02-02-2024 End: 83-33-7411Irgtypt encounter procedureNOMS PODIATRYComment on above: ArrivedStart: 01-25-2024 End: 89-66-6092Hqksarx encounter dsjiauzbq40/10/2024 12:00 PM EDT [facility] [address] [place] [phone] Rei Cobos DO [address] [place] [address] ArrivedNOUNIVERSITY HOSPITALS TRIP[facility] ROUTEComment on above:ArrivedStart: 59-45-1984Ktsrl-19 Vaccine ( season)Covid-19 Vaccine ( season)[facility]tart: 10-11-1535Jazqrhrsp vaccinationInfluenza Vaccine (#1)[facility]OMS HealthcareStart: 21-57-3687Fupeckinw for malignant neoplasm of colonNOMS HealthcareStart: 03-29-6621JozghmpxbSuburban Community Hospital & Brentwood Hospitaltart: 42-04-1824Bfrqmvupzvrhsc of prophylactic treatmentSuburban Community Hospital & Brentwood Hospitaltart: 73-82-7272Fsgblkni admissionSuburban Community Hospital & Brentwood Hospitaltart: 09-06-2023 End: 46-54-7369Dzmcnto encounter jsewyarmu78/22/2024 9:00 AM EDT Office Visit [facility] CHRISTINA [address] [place] [address] Remigio Simpson MD [address] [place] [address] [facility] FMStart: 06-30-2023 End: 52-19-7901Arnqvyye identified in Urine by CultureUrine culture (clean catch) Microbiology Routine Dysuria Expected: 06/30/2023 (Approximate), Expires: 06/30/2024NOCT HealthcareComment on above:Expected: 06/30/2023 (Approximate), Expires: 06/30/2024Start: 06-30-2023 End: 25-48-9791Zgrducyrtp complete panel - UrineUrinalysis with reflex microscopic (clean catch) Lab Routine Dysuria Expected: 06/30/2023 (Approxima te), Expires: 06/30/2024[facility] Work Phone: Comment on above:Expected: 06/30/2023 (Approximate), Expires: 06/30/2024Start: 75-23-2507ApktmzhusSuburban Community Hospital & Brentwood Hospitaltart: 49-12-1694Hynxfxyxlalirv of prophylactic treatmentSuburban Community Hospital & Brentwood Hospitaltart: 62-50-6139Jqgjesbl admissionSuburban Community Hospital & Brentwood Hospitaltart: 29-94-1125WwyceukynSuburban Community Hospital & Brentwood Hospitaltart: 47-69-7027Isjnloq Directive DiscussionAdvance Directive DiscussionMount Carmel Health Systemtart: 03-09-2021 Pneumococcal Vaccine: 50+ (2 of 2 - PCV)Pneumococcal Vaccine: 50+ (2 of 2 - PCV) [facility]tart: 79-28-0001Zbxvqtchrccv Vaccine: 65+ (2 of 2 - PCV) Pneumococcal Vaccine: 65+ (2 of 2 - PCV)[facility]tart: 03-09-2021 Pneumococcal Vaccine: 65+ Years (2 - PCV)Pneumococcal Vaccine: 65+ Years (2 - PCV)[facility] HealthcareStart: 19-26-1600Fsjzkeoiwinm Vaccine: 65+ Years (2 of 2 - PCV)Pneumococcal Vaccine: 65+ Years (2 of 2 - PCV)[facility] HealthcareStart: 83-41-6696Dwohnvwza for osteoporosisBone Density ScreeningMount Carmel Health Systemtart: 43-48-3260Bkbakksn Vaccine (1 of 2)Shingrix Vaccine (1 of 2)[facility] Start: 70-37-3360Hvtiyjrki B Vaccines (2 of 3 - 19+ 3-dose series)Hepatitis B Vaccines (2 of 3 - 19+ 3-dose series)[facility] HealthcareStart: 97-68-9644Rqtkwzja ScreeningDiabetes ScreeningMount Carmel Health Systemtart: 89-16-8459Ddfvm panelLipid ScreeningMount Carmel Health Systemtart: 75-10-5507Ayxhpuujr for malignant neoplasm of colonMount Carmel Health Systemtart: 25-98-3561Ppzidjrvf for malignant neoplasm of breast [facility] HealthcareStart: 45-85-2938Sjmel microalbumin profileDTaP,Tdap,Td Vaccine (1 - Tdap)[facility] Systemtart: 50-90-7742Naephyb ScreeningAnxiety Screening [facility]tart: 92-91-7162Xccnfpqla C screeningHepatitis C Screening [facility] Systemtart: 62-92-1277EXgQ/Tdap/Td Vaccines (1 - Tdap)DTaP/Tdap/Td Vaccines (1 - Tdap)[facility] HealthcareStart: 06-25-1954Medicare Annual Wellness (AWV)Medicare Annual Wellness (AWV)[facility] HealthcareStart: 43-56-3892Ehzsayphy for malignant neoplasm of colonNOMS HealthcarePatient EducationWayne Healthcare Main Campus Ctr Work Phone: Patient referralWayne Healthcare Main Campus Ctr Work Phone: Immunizations Immunization DateImmunizationNotesCare HloxrfcfOgixtswo56-74-5081reqirfjyl, high dose seasonal, preservative-freeSteven Jojo DPM Work Phone: NOCarondelet HealthKdkbgvywvr24-91-4736ultjmqvzi virus vaccine, unspecified formulationRemigio Simpson MD Work Phone: NOCarondelet HealthSazwqutydq65-77-1777Xwitcabbl, Seasonal, Quadrivalent, AdjuvantedRemigio Simpson MD Work Phone: noCarondelet HealthVwddijqxat66-86-2833qhvrhtysz virus vaccine, unspecified formulationRemigio Simpson MD Work Phone: [facility] HospitalPajjxvqpjb32-40-4448RGFG-VvW-7 (COVID-19) mRNAMUL.ORD!q71036Getvlef NILL [facility] Lqyuygcc16-97-6265Ufdbwdewp, High-dose Seasonal, Quadrivalent, Preservative FreeRemigio Simpson MD Work Phone: [facility] HospitalSdxvohmrur23-99-6830PFFK-UbH-4 mRNA (xpzadujnmjl-qufe-tdsoomu) vaccineMichael NILL [facility] Adcwcymo01-04-6203JHPH-KjK-2 (COVID-19) mRNA BNT-162b2 vaxMichael NILL [facility] Yepvyggi44-64-8158Kcijcxfkg, Seasonal, Quadrivalent, AdjuvantedMarestiven Simpson MD Work Phone: [facility] HospitalLbthyocsep38-74-7435MFLQ-PcQ-4 (COVID-19) mRNA BNT-162b2 vaxMichael NILL [facility] Surgery BellevueComment on above:Result Comment: 2023-01-04: FDI0538-05-8095LIVH-YzK-0 (COVID-19) mRNA BNT-162b2 vax Amor NILL [facility] BellevueComment on above:Result Comment: 2023-01-04: GLB2239-59-0167cjpxuvneekeg polysaccharide vaccine, 23 valentMarestiven Simpson MD Work Phone: [facility] HospitalWtozjmjsiq71-99-8607Mwgywdyll, Seasonal, Quadrivalent, AdjuvantedRemigio Simpson MD Work Phone: [facility] HospitalXqszkjarll49-58-0379jobazhyrs, high dose seasonal, preservative-freeRemigio Simpson MD Work Phone: [facility] HospitalGbenfknuaw82-58-4327mrhdedspm, injectable, quadrivalent, preservative freeRemigio Simpson MD Work Phone: [facility] HospitalChhjfwotwt81-95-9074tpeyngsxz, seasonal, injectable, preservative freeRemigio Simpson MD Work Phone: [facility] HospitalHcxmxsxviy69-53-4570fzqnpheld, seasonal, injectableRemigio Simpson MD Work Phone: noCarondelet HealthLqnhhmogyo44-44-8315xjlyserwk, seasonal, injectableRemigio Simpson MD Work Phone: [facility] HospitalEehujhggze33-02-9650nwikpjkex B vaccine, adult dosageMaría Elenac Calvin ROGERS Work Phone: [facility] HospitalEfashazquf41-38-2524zgyplwvvh B vaccine, pediatric or pediatric/adolescent dosageMarc Calvin ROGERS Work Phone: noCarondelet HealthNslgmesrtm56-33-4003gknpcpfho B vaccine, pediatric or pediatric/adolescent dosageMarc Calvin ROGERS Work Phone: [facility] Payers DatePayer CategoryPayerPolicy [id number] Health [id number] 2019Medicare [id number] [id number] [id number] 2.0.1.478546.3.57[id number] 2..1.516884.3.57[id number] 2.0.1.326676.3.579.2.34746-14-7285Lurabat3871987 2.840.1.432794.3.579.2.38440-88-8046Hmgpwqz79243878 2.840.1.953628.3.579.[id number] 2.16840.1.215280.3.57[id number] 2.16840.1.370942.3.57[id number] 2.16840.1.341724.3.579.2.39679-50-5923Yljsydm46172728 2.16840.1.746348.3.579.[id number] 2.16840.1.052159.3.579.[id number] 2.840.1.476739.3.579.2.009732-50-4841Stvgvdg7974419 2.0.1.380910.3.579.2.279383-75-8508Msqomae6399249 2.840.1.836860.3.579.2.936842-21-5409Zjgbynd1889962 2.840.1.624177.3.579.2.044437-78-4837Oifxhnz1601968 2.840.1.652496.3.579.2.950567-05-1734Pwrsrww9242919 2.840.1.725892.3.579.2.372489-92-5608Zruyfpe3518251 2.840.1.779274.3.579.2.448565-60-8534Eswethn8706808 2.16840.1.653547.3.579.2.524748-94-7988Nzbkrvs7836772 2.16840.1.711394.3.579.2.871629-44-1524Axdnesa3655885 2..1.576553.3.579.2.052423-54-0723Lpznjdf8403383 2..1.517341.3.579.2.556456-28-6998Suhyugi8326619 2..1.205324.3.579.2.563805-21-8993Lkhtxlj5226888 2..1.317523.3.579.2.032184-88-2549Bhbnxlv6925343 2..1.345080.3.579.2.277912-13-6264Zlohkop8690110 2..1.082893.3.579.2.531900-28-1267Lwuyokb3125641 2..1.304445.3.579.2.372793-63-9958Hnysepn8112557 2..1.895297.3.579.2.038117-68-3502Pdvdatc3113212 2..1.774412.3.579.2.241357-68-1070Vftisnp0788499 2..1.710281.3.579.2.616829-39-6819Sigutvy9515903 2..1.081010.3.579.2.7224Rpibbiu15613799 2..1.707360.3.579.2.531 Umthsmv81504238 2..1.174690.3.579.2.545Daxptwa35347084 2..1.766703.3.579.2.531 Social History DateTypeDetailFacilityStart: 01-08-2023 End: 40-52-8550Dhmnrgh smoking statusNever smoked tobacco (finding)General Surgery BellevueStart: 35-75-9465Vwnxqdd smoking statusNeverGeneral Surgery [facility] Medical CenterueStart: 06-09-2023 End: 85-72-1570Epl [facility]igned At [facility]: 82-04-3914Eei Assigned At [facility]tart: 06-09-2023 End: 76-82-4369Sphdeqg use and exposureSmokeless tobacco non-userNOMS Healthcare Start: 54-62-4620Esxlyfu intakeDeferNOMS HealthcareStart: 06-09-2023 End: 02-27-7769Gjymnpv of Social functionNOMS HealthcareStart: 12-31-2022 Upkqtenbz75MQVF HealthcareStart: 25-97-8227Omh Assigned At BirthNot on fileNOMS HealthcareStart: 12-24-2023 End: 05-13-4376Byuhndftc beverage intakeEx-drinker (finding)NOMS HealthcareDo you belong to any clubs or organizations such as gnosticist groups, [employer], [employer] or athletic groups, or school groups?NoNOMS HealthcareAre [...] trueNOMS HealthcareTobacco smoking status NHISTobacco smoking consumption unknownSavonburg ClinicStart: 07-11-2024 SexFemale (finding)[facility] HospitalNEGATED: Highlighted row Start: NINFHistory of tobacco usePassive smokerNOMS Healthcare Goals DatePatient GoalDesired Activity/StatePersonal health goal Functional Status RxlqZlvgfknpfiSxqutqTmecptdb29-72-5659Ngrnpcglha statusPatient at [facility] Work Phone: [phone]pmcwnbd StatusN/AGeneral Surgery Tomy Mental Status NrrrOsjdslcwbaAsdpreTapzegmc57-68-3077Xkgxdgcrz functionCognitive Status [facility] Work Phone: Clinical Notes 03-12-2022 to 03-19-2025 Note Date & NdhkGivjTueoozdc79-64-6993 [id number] Donnie Bullock 1955 F Date Provider Department Center 03/19/2025 [facility] Ramone Heal No family history on file Level of Service:66355 OK OFFICE/OUTPATIENT ESTABLISHED MOD MDM 30 MIN (GC) Reason for Visit and Comments: Med Management [[id number]][facility]11-03-2025 Note Attestation signed by Jada Aguillon MD at 03/20/2025 8:59 AM By using the attestations below, the [...] be an additional personal documentation from me. Department of Psychiatry Outpatient Progress Note Time In: 11:45 Time Out: 12:10 Present At Visit: Patient and Spouse Clinician Location: Clinician in office Patient Location: In office SUBJECTIVE CC: Chief Complaint Patient presents with Med Management HPI: Donnie Bullock is a 69 y.o. female (currently ) with past psychiatric history of Lewy Body Dementia dx in May of 2022 presenting to the [facility] for a follow-up appointment. She is accompanied by her Vimal who helps in providing some of the history. Patient has been seen by Neurology (Dr. Marie) since May of 2022 at which time she was diagnosed with Lewy Body Dementia after presenting for several episodes of confusion. Per her , he found her outside wandering and confused overnight in early April. Then, several days later she awoke confused and unsure who her was. As of earlier this year she is no longer following with Dr. Marie, as he advised her that she should be following exclusively with psychiatry at this point. She has no notable psychiatric history prior to the onset of her dementia, but her describes her as being a worrier since he has known her. In May of this year (05/2024) she spent about a month inpatient at [facility], she was discharged and did well for a few days before further deteriorating and being admitted to [facility] where she spent ~2 weeks. Patient was accompanied by her son for today's visit. She states that she has been doing well overall, has been enjoying going for walks and getting together with her grandkids. States her mood is ???occasionally cranky??? due to some of the limitations she now has to deal with, such as not being able to drive or ride a bike. However she otherwise denies significant depressed mood and states anxiety is well-controlled on current regimen. She denies SI or HI. She reports occasional frightening nightmares and ???waking up in a panic,??? which upon exploration appear more consistent with hypnopompic hallucinations. She additionally reports occasionally seeing ???figures without faces??? in her peripheral vision, but denies any auditory or visual hallucinations otherwise. She reports her appetite is ???maybe too good??? and denies any significant issues with sleep aside from the above. She reports some issues with memory, such as entering a room and forgetting why, but denies any significant recent worsening of memory or cognition. Per patient's son Vimal, patient has had occasional visual hallucinations during the day, such as seeing her grandchildren or believing there are ???two Jims??? in the home. However these do not seem to be particularly upsetting to her. He states that they recently moved into a new [facility], which may be contributing to some of patient's stress during sleep and memory issues. He states she has had multiple mechanical falls since last visit, denies any significant injury from these. She is getting physical therapy once/week. She was previously prescribed Nuplazid but this was not approved by insurance. --- Mood: No anhedonia, No decreased need [...] Response to Intervention: Agreeable --- Psychosocial update: Moved into [facility] with son Vimal recently. She has been walking frequently and is enjoying seeing her 10 grandchildren. --- Medical update (eg, other health issues, other medication changes): None --- Medication Compliance: Greater than 90% OARRS: Reviewed, no concerns noted MEDICAL REVIEW OF SYSTEMS Review of Systems Constitutional: Negative for chills, fatigue and fever. HENT: Negative for sore (more content not included)...[facility]09-[facility] History of Present illness Narrative* Herson Uribe DPM - 02/06/2025 9:15 AM EDT Images [...] OF UTERUS 2004 EYE SURGERY HYSTERECTOMY 2007 OK REMOVE TONSILS/ADENOIDS,10+ Y/O 1961 Family History Family [...] understanding. Herson Uribe DPM documented in this encounterLiberty [id number] Evaluation note* Diagnosis Onset Date Resolution Status Admit Date Bilateral primary osteoarthritis of knee acuteSept2024 10:30amGAD (generalized anxiety disorder)acuteSept2024 10:30amLewy body dementia with behavioral disturbanceacuteSept2024 10:30amParkinsons disease, secondaryacuteSept2024 10:30am [facility] Work Phone: 1(129) 789-467808-01-2025 [facility] Time In: 11:45 Time Out: 12:10 Present At Visit: Patient and Spouse Clinician Location: Clinician in office Patient Location: In office - SUBJECTIVE CC: Chief Complaint Patient presents with Med Management HPI: Donnie Bullock is a 69 y.o. female (currently ) with past psychiatric history of Lewy Body Dementia dx in May of 2022 presenting to the [facility] for a psychiatric [...] she spent about a month inpatient at [facility] and left with a large list of medications detailed below. She was discharged and did well for a few days before further deteriorating and being admitted to [facility] where she spent ~2 weeks and left [...] ASSESSMENT AND PLAN Assessment (more content not included)...[facility] 11-10-2024 NoteDepartment of Psychiatry Diagnostic Assessment Time In: 10:46 Time Out: 11:20 Encounter Type: In-Person Patient Name: Donnie Bullock MRN / CSN: [id number] Date of / Age: 6 1955 / [...] is a 69 y.o. 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 female (currently ) with past psychiatric history of Lewy Body Dementia dx in May of 2022 presenting to the [facility] for a psychiatric [...] she spent about a month inpatient at [facility] and left with a large list of medications detailed below. She was discharged and did well for a few days before further deteriorating and being admitted to [facility] where she spent ~2 weeks and left [...] for her. She is very spiritual and tenriism, and enjoys going to gnosticist, but the large numbers at her gnosticist services can make it difficult for her [...] grand children and needed to call the [facility] department to turn herself in. Previous medication trials include: Nuplazid, escitalopram, memantine, and mirtazapine. All of these besides the mirtazapine were discontinued between her stay at [facility] and [facility]. Adverse effects if any were unclear. [...] her is unclear whic (more content not included)...[facility]06[facility]19[facility] History of Present illness Narrative* Herson [...] OF UTERUS 2004 EYE SURGERY HYSTERECTOMY 2008 OK REMOVE TONSILS/ADENOIDS,12+ Y/O 1959 Family History Family History Problem Relation Name Age of Onset Cancer Mother Ayla Jonas Arthritis Mother Ayla Jonas Depression Mother Ayla Jonas Hypertension Father Carlos Jonas Cancer Father Carlos Jonas Heart disease Sibling Arthritis Maternal Grandmother Dayna Mertzon Objective General assessment: Alert and oriented. Pleasant [...] understanding. Herson Uribe DPM documented in this [facility]06-19-2025 Instructions* Patient Instructions* Herson Uribe DPM - 11/02/2024 9:15 AM EDT Topical care measures as noted documented in this [facility]04-30-2025 History of Present illness Narrative* Remigio Simpson [...] and use medication PRN. documented in this encounterLiberty [id number] Telephone encounter Note* Telephone Encounter - Remigio Simpson MD - 09/12/2024 11:27 AM EDT states trying to get Palliative Care through [facility]. They told him a referral has beenfaxed twice but no response. Nothing in her chart. Can you contact them to check on status. [id number] Miscellaneous Notes* Telephone Encounter - Remigio Simpson MD - 09/12/2024 11:27 AM EDT states trying to get Palliative Care through [facility]. They told him a referral has beenfaxed twice but no response. Nothing in her chart. Can you contact them to check on status. documented in this [place] [id number] Telephone encounter Note* Telephone Encounter - Remigio Simpson MD - 08/22/2024 10:02 PM EDT Sent [place] [id number] Miscellaneous Notes* Telephone Encounter - Remigio Simpson MD - 08/22/2024 10:02 PM EDT Sent * Telephone Encounter - SUSHMA WILKES - 08/22/2024 11:55 AM EDT Patients called states rash under breast is not getting better and is now under both breast, and would like a cream instead as powder does not stay well. documented in this [place] [id number] Telephone encounter Note* Telephone Encounter - SUSHMA WILKES - 08/22/2024 11:55 AM EDT Patients called states rash under breast is not getting better and is now under both breast, and would like a cream instead as powder does not stay well. [facility] [id number] Telephone encounter Note* Telephone Encounter - Remigio Simpson MD - 08/14/2024 3:58 PM EDT Sent. [facility] [id number] Miscellaneous Notes* Telephone Encounter - Remigio Simpson MD - 08/14/2024 3:58 PM EDT Sent. * Telephone Encounter - SUSHMA WILKES - 08/14/2024 10:10 AM EDT Patient's called looking for a script for Nystop powder. clm documented in this encounterLiberty [id number] Telephone encounter Note* Telephone Encounter - SUSHMA WILKES - 08/14/2024 10:10 AM EDT Patient's called looking for a script for Nystop powder. clm [facility] [id number] Telephone encounter Note* Telephone Encounter - Sera Killian APRN.CNP - 07/27/2024 4:53 PM EDT The following approved medication requests have been transmitted electronically. Requested Prescriptions Signed Prescriptions Disp Refills donepezil (ARICEPT) 5 mg tablet 90 tablet 1 Sig: TAKE 1 TABLET BY MOUTH DAILY AFTER BREAKFAST. Authorizing Provider: SERA KILLIAN APRN.LOGISTICS SUPPORT [facility]03-13-2025 Miscellaneous Notes* Telephone Encounter - Sera Killian APRN.CNP - 07/27/2024 4:53 PM EDT The following approved medication requests have been transmitted electronically. Requested Prescriptions Signed Prescriptions Disp Refills donepezil (ARICEPT) 5 mg tablet 90 tablet 1 Sig: TAKE 1 TABLET BY MOUTH DAILY AFTER BREAKFAST. Authorizing Provider: SERA KILLIAN APRN.CNP documented in this encounterPe[facility] Hospital02-24-[facility] History of Present illness Narrative* Remigio Simpson MD - 07/10/2024 10:16 AM EST noticed increased confusion and wants to check urine. Send order for culture and dip to [facility]. documented in this encounterLiberty [id number] History of Present illness Narrative* Rei Cobos [...] we share this recommendation. documented in this [facility]02-19-2025 NoteTreatment Review Patient has been doing well. She is sleeping and physician feels she is ready to discharge. Package Dyer reported that patient will be picked up by at roughly noon. Medications sent to pharmacy and follow up was scheduled. Discharge plan: Home with -outpatient neurology appointment was scheduled. Nuplazid form was filed out and sent in. This may take 1-2 days to complete.[facility]02-19-2025 Note Attestation signed by MINDY Hunt at 07/05/2024 10:51 AM I agree with the content of this note and have no current revisions. Family Therapist discharge plan Per physician, patient is cleared for discharge. Patient will discharge today at 12pm back home with . Patient will be transported by . Patient to follow up with outpatient psychiatry. Family and staff made aware.[facility]02-19-2025 Note Attestation signed by Brianda De [...] Nightly, Irma Kononov, DO, 0.25 mg at 07/04/242037 escitalopram (Lexapro) tablet 5 mg, 5 mg, oral, Daily, Ceci Salguero MD, 5 mg at 07/05/24814 melatonin tablet 20 mg, 20 mg, oral, Nightly, Irma Kononov, DO, 20 mg at 07/04/242037 memantine (Namenda) tablet 5 mg, 5 mg, oral, BID, Irma Kononov, DO, 5 mg at 07/05/24814 OLANZapine (ZyPREXA) injection 2.5 mg, 2.5 mg, intramuscular, BID PRN, Mily Juarez MD pimavanserin (Nuplazid) capsule 34 mg, 34 mg, oral, Daily, Irma Kononov, DO, 34 mg at 07/05/24 0815 polyethylene [...] Continue nystatin powde (more content not included)... [facility]02-18[facility]2025 NoteFamily Therapist discharge plan Physician is approving of discharge tomorrow. 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 / female Encounter Date: 07/04/24 Diagnosis: Dementia with Lewy Bodies, Associated REM Sleep behavioral disorder Summary Health care surrogate: Vimal Bullock ([phone]) Mrs. Bullock's cognitive decline started in April,. [...] by Dr. Judy Chino, a psychologist in [place]. She then, approximately 1 year ago, began seeing neurology (Dr. Ambrose at [facility]). She also presented to the [facility] for a second opinion in April, (MOCA score at that time was 17/30). The patient previously received services through [facility], this care was reported to be for her major neurocognitive disorder. This week the patient was experiencing worsening hallucinations. On Wednesday (06/05/2024) she reported that she killed her 4 kids and grandchildren. She stated she had their head in bags. The next day (06/06/2024) she was increasingly paranoid and told her that the automatic seamer was coming to take her away and she was packing. She experiences visual hallucinations every day, intermittently. In particular, Mrs. Bullock sees babies suffocating and people living in her house. She also reports seeing dogs as well as squirrels on her husbands shoulder when they watch TV together. Furthermore, patient states when she was hospitalized at [facility] for (depressive symptoms) she saw ribbons in [...] mg TID. Discontinued Mirt (more content not included)...[facility]02-18-2025 Note Attestation signed by Brianda De [...] Daily, Ceci Salguero MD, 5 mg at 07/04/24 0743 melatonin tablet 20 mg, 20 mg, oral, Nightly, Irma Greco DO, 20 mg at 07/03/24 204 memantine (Namenda) tablet 5 mg, 5 mg, [...] bedtime daily Depression/Major Ne (more content not included)...[facility]02-17-2025 NoteTreatment Review Per report, pt was talking about janky squirrels . Pt refused some of her food and medications over the weekend. Pt has been tearful at times. Pt has been compliant with her medications this morning. Pt had a large BM Wednesday and Wednesday. Pt slept for 7 hours. Pt has been wandering the unit at times. Discharge plan: [facility]02-17-2025 NoteTreatment Plan Update Date: 06/10/2024 Time: 9:06 AM Patient Name: Donnie Bullock Date of : 1955 Type of Note: Initial Notes: patient was admitted to [facility] from home after repeated delusional and [...] up outpatient Treatment Plan Created/Updated By: Mindy WeinsteinWhite Hospital02-17-2025 NoteTreatment Plan Update Date: 06/26/2024 Time: [...] Discharge Plan: Home Treatment Plan Created/Updated By: Juancarlos Saenz [facility]02-17-2025 NoteTreatment Plan Update Date: 06/19/2024 Time: 8:15 [...] Outpatient follow up Treatment Plan Created/Updated By: Xavier [facility]ak[facility]Ohio[facility]-17-2025 NoteTreatment Plan Update Date: 07/03/2024 Time: [...] follow up Treatment Plan Created/Updated By: Xavier ThakkarOhioHealth Mans[facility]02-17-2025 NoteProblem: Anxiety Goal: STG-Cooperates with evaluations [...] we will keep problem active to continue monitoring.[facility]02-17-2025 Note PROGRESS NOTE PATIENT: Donnie Bullock, [...] De Jesus MD, 30 g at 07/03/24 0808 melatonin tablet 20 mg, 20 mg, oral, Nightly, Irma Greco DO, 20 mg at 07/02/242000 memantine (Namenda) tablet 5 mg, 5 mg, oral, BID, Irma Greco DO, 5 mg at 07/03/24 0808 nystatin (Mycostatin) 100,000 unit/gram powder, , Topical, BID, Du Mcmillan MD, Given at 07/02/242000 OLANZapine (ZyPREXA) injection 2.5 mg, 2.5 mg, intramuscular, BID PRN, Mily Juarez MD pimavanserin (Nuplazid) capsule 34 mg, 34 mg, oral, Daily, Irma Greco DO, 34 mg at 07/03/24 0808 polyethylene glycol (Glycolax) packet 17 g, 17 g, oral, Daily PRN, Du Mcmillan MD, 17 g at 06/26/24 0808 QUEtiapine (SEROquel) tablet 25 mg, 25 mg, oral, TID PRN, Mily Juarez MD, 25 mg at 06/29/24 1149 sennosides-docusate sodium (Kriss-Colace) 8.6-50 mg per tablet 2 tablet, 2 tablet, oral, BID, Ashleigh Kahlil, 2 tablet at 07/03/24 0808 ASSESSMENT/PLAN: [...] staff and primary team. Brianda De Jesus MDWhite Hospital02-17-2025 Note Attestation signed by Irma Greco [...] Patient Name: Donnie Bullock MRN / CSN: [id number] Date of / Age: 6 1955 / 68 y.o. / female Encounter Date: 07/03/24 Diagnosis: Dementia with Lewy Bodies, Associated REM Sleep behavioral disorder Summary Health care surrogate: Vimal Bullock ([phone]) Mrs. Bullock's cognitive decline started in April,. [...] by Dr. Judy Chino, a psychologist in [place]. She then, approximately 1 year ago, began seeing neurology (Dr. Ambrose at [facility]). She also presented to the [facility] for a second opinion in April, (MOCA score at that time was 17/30). The patient previously received services through [facility], this care was reported to be for her major neurocognitive disorder. This week the patient was experiencing worsening hallucinations. On Wednesday (06/05/2024) she reported that she killed her 4 kids and grandchildren. She stated she had their head in bags. The next day (06/06/2024) she was increasingly paranoid and told her that the automatic seamer was coming to take her away and she was packing. She experiences visual hallucinations every day, intermittently. In particular, Mrs. Bullock sees babies suffocating and people living in her house. She also reports seeing dogs as well as squirrels on her husbands shoulder when they watch TV together. Furthermore, patient states when she was hospitalized at [facility] for (depressive symptoms) she saw ribbons in [...] mg PRN medications: D (more content not included)...[facility]02-15-2025 Note Attestation signed by Jada Aguillon [...] Patient Name: Donnie Bullock MRN / CSN: [id number] Date of / Age: 6 1955 / 68 y.o. / female Encounter Date: 07/01/24 Diagnosis: Dementia with Lewy Bodies, Associated REM Sleep behavioral disorder Summary Health care surrogate: Vimal Bullock ([phone]) Mrs. Bullock's cognitive decline started in April,. [...] by Dr. Judy Chino, a psychologist in [place]. She then, approximately 1 year ago, began seeing neurology (Dr. Ambrose at [facility]). She also presented to the [facility] for a second opinion in April, (MOCA score at that time was 17/30). The patient previously received services through [facility], this care was reported to be for her major neurocognitive disorder. This week the patient was experiencing worsening hallucinations. On Wednesday (06/05/2024) she reported that she killed her 4 kids and grandchildren. She stated she had their head in bags. The next day (06/06/2024) she was increasingly paranoid and told her that the automatic seamer was coming to take her away and she was packing. She experiences visual hallucinations every day, intermittently. In particular, Mrs. Bullock sees babies suffocating and people living in her house. She also reports seeing dogs as well as squirrels on her husbands shoulder when they watch TV together. Furthermore, patient states when she was hospitalized at [facility] for (depressive symptoms) she saw ribbons in [...] Current Home Medications and (more content not included)...[facility]02-15-2025 NoteProblem: Anxiety Goal: STG-Cooperates with evaluations from physicians/RNs Outcome: Progressing Problem: Confusion Goal: STG-Engages in social situations appropriately 3 per shift Outcome: Progressing Problem: Anxiety Goal: STG-Will not pace the floor more than 10 per shift Outcome: Not ProgressingUnMcCullough[facility]02-14-[facility] Note Attestation signed by MINDY Hunt [...] return home to previous living arrangement with .[facility]02-14-2025 Note Attestation signed by Irma Greco [...] Patient Name: Donnie Bullock MRN / CSN: [id number] Date of / Age: 6 1955 / 68 y.o. / female Encounter Date: 06/30/24 Diagnosis: Dementia with Lewy Bodies, Associated REM Sleep behavioral disorder Summary Health care surrogate: Vimal Bullock ([phone]) Mrs. Bullock's cognitive decline started in April,. [...] by Dr. Judy Chino, a psychologist in [place]. She then, approximately 1 year ago, began seeing neurology (Dr. Ambrose at [facility]). She also presented to the [facility] for a second opinion in April, (MOCA score at that time was 17/30). The patient previously received services through [facility], this care was reported to be for her major neurocognitive disorder. This week the patient was experiencing worsening hallucinations. On Wednesday (06/05/2024) she reported that she killed her 4 kids and grandchildren. She stated she had their head in bags. The next day (06/06/2024) she was increasingly paranoid and told her that the automatic seamer was coming to take her away and she was packing. She experiences visual hallucinations every day, intermittently. In particular, Mrs. Bullock sees babies suffocating and people living in her house. She also reports seeing dogs as well as squirrels on her husbands shoulder when they watch TV together. Furthermore, patient states when she was hospitalized at [facility] for (depressive symptoms) she saw ribbons in [...] mg PRN medications: D (more content not included)...[facility]02-14-2025 Note Attestation signed by Brianda D eJesus MD at 06/30/2024 12:42 PM By using [...] Ceci Salguero MD, 5 mg at 06/29/24 09 lactulose (Chronulac) 10 gram/15 mL solution 10 [...] PRN, Mily Juarez MD (more content not included)...[facility]02-13-2025 Note Problem: Anxiety Goal: STG-Cooperates with evaluations from physicians/RNs Outcome: Progressing Problem: Confusion Goal: LTG-Take medications as prescribed Outcome: Progressing Problem: Depression Goal: LTG-Engage in self care as tolerated Outcome: Progressing Problem: Fall Risk Goal: LTG-No falls Outcome: ProgressingWhite [facility]02-13-2025 Note Attestation signed by Brianda De [...] 06/10/2024 Visual hallucinations 06/10/2024 Paroxysmal supraventricular tachycardia ([facility]) 06/10/2024 Personal history of COVID-19 06/10/2024 Current Facility-Administered Medications: acetaminophen (Tylenol) tablet 650 mg, 650 mg, oral, q6h PRN, Derrick Duckworth MD, 650 mg at 06/28/24 08 atorvastatin (Lipitor) tablet 10 mg, 10 mg, oral, Nightly, Du Mcmillan MD, 10 mg at 06/28/242007 bisacodyl (Dulcolax) suppository 10 mg, 10 mg, rectal, Daily PRN, Ashleigh Guillory clonazePAM (KlonoPIN) disintegrating tablet 0.5 mg, 0.5 mg, oral, Nightly, Irma Greco DO, 0.5 mg at 06/28/242008 escitalopram (Lexapro) tablet 5 mg, 5 mg, oral, Daily, Ceci Salguero MD, 5 mg at 06/28/24 171 lactulose (Chronulac) 10 gram/15 mL solution 10 g, 10 g, oral, BID, Ashleigh Guillory, 10 g at 06/28/242008 melatonin tablet 20 mg, 20 mg, oral, Nightly, Irma Amayaonov, DO, 20 mg at 06/28/242007 memantine (Namenda) tablet 5 mg, 5 mg, oral, BID, Irma Amayaonov, DO, 5 mg at 06/28/242007 nystatin (Mycostatin) [...] 2 tablet, 2 tablet, oral, BID, Ashleigh Kahlil, 2 tablet at 06/28/242007 ASSESSMENT/PLAN: Dysuria, resolved: Encourage fluid intake, urinalysis (more content not included)...[facility]02-13-2025 Note Attestation signed by Irma Greco [...] worsening dizziness and fatigue, as 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 Though of note, her night time rem problems have subsided at this dose. Psychiatry Service Progress Note Identifying Data Patient Name: Donnie Bullock MRN / CSN: [id number] Date of / Age: 6 1955 / 68 y.o. / female Encounter Date: 06/29/24 Diagnosis: Dementia with Lewy Bodies, Associated REM Sleep behavioral disorder Summary Health care surrogate: Vimal Bullock ([phone]) Mrs. Bullock's cognitive decline started in April,. [...] by Dr. Judy Chino, a psychologist in [place]. She then, approximately 1 year ago, began seeing neurology (Dr. Ambrose at [facility]). She also presented to the [facility] for a second opinion in April, (MOCA score at that time was 17/30). The patient previously received services through [facility], this care was reported to be for her major neurocognitive disorder. This week the patient was experiencing worsening hallucinations. On Wednesday (06/05/2024) she reported that she killed her 4 kids and grandchildren. She stated she had their head in bags. The next day (06/06/2024) she was increasingly paranoid and told her that the automatic seamer was coming to take her away and she was packing. She experiences visual hallucinations every day, intermittently. In particular, Mrs. Bullock sees babies suffocating and people living in her house. She also reports seeing dogs as well as squirrels on her husbands shoulder when they watch TV together. Furthermore, patient states when she was hospitalized at [facility] for (depressive symptoms) she saw ribbons in [...] ideation, plan and i (more content not included)...[facility]02-12-2025 Note Treatment Review Per report, pt rated her anxiety and depression at a 8. Pt has been overstimulated lately due to the loudness of the milieu. Pt reported that she was seeing children. Pt was complaining of back pain. Pt has not had a BM for days. Pt had her memantine increased. Discharge plan: [facility]02-12-2025 Note Attestation signed by Brianda De [...] Derrick Duckworth MD, 650 mg at 06/28/24 08 atorvastatin (Lipitor) tablet 10 mg, 10 mg, [...] 20 mg, 20 mg, oral, Nightly, Irma Amayaonov, DO, 20 mg at 06/27/242003 memantine (Namenda) tablet 5 mg, 5 mg, oral, BID, Irma Amayaonov, DO, 5 mg at 06/28/24 0830 nystatin (Mycostatin) 100,000 unit/gram powder, , Topical, BID, Du Mcmillan MD, Given at 06/27/242004 OLANZapine (ZyPREXA) injection 2.5 mg, 2.5 mg, intramuscular, BID PRN, Mily Juarez MD pimavanserin (Nuplazid) capsule 34 mg, 34 mg, oral, Daily, Irmastephie Amayaonov, DO, 34 mg at 06/28/24 0829 polyethylene glycol (Glycolax) packet 17 g, 17 g, oral, Daily PRN, Du Mcmillan MD, 17 g at 06/26/24 08 QUEtiapine (SEROquel) tablet 25 mg, 25 mg, oral, TID PRN, Mily Juarez MD, 25 mg at 06/22/242250 sennosides-docusate sodium (Kriss-Colace) 8.6-50 mg per tablet 2 tablet, 2 tablet, oral, BID, Ashleigh Guillory, 2 (more content not included)...[facility]02-12-2025 Note Attestation signed by Irma Greco [...] Patient Name: Donnie Bullock MRN / CSN: [id number] Date of / Age: 6 1955 / 68 y.o. / female Encounter Date: 06/28/24 Diagnosis: Dementia with Lewy Bodies, Associated REM Sleep behavioral disorder Summary Health care surrogate: Vimal Bullock ([phone]) Mrs. Bullock's cognitive decline started in April,. [...] by Dr. Judy Chino, a psychologist in [place]. She then, approximately 1 year ago, began seeing neurology (Dr. Ambrose at [facility]). She also presented to the [facility] for a second opinion in April, (MOCA score at that time was 17/30). The patient previously received services through [facility], this care was reported to be for her major neurocognitive disorder. This week the patient was experiencing worsening hallucinations. On Wednesday (06/05/2024) she reported that she killed her 4 kids and grandchildren. She stated she had their head in bags. The next day (06/06/2024) she was increasingly paranoid and told her that the automatic seamer was coming to take her away and she was packing. She experiences visual hallucinations every day, intermittently. In particular, Mrs. Bullock sees babies suffocating and people living in her house. She also reports seeing dogs as well as squirrels on her husbands shoulder when they watch TV together. Furthermore, patient states when she was hospitalized at [facility] for (depressive symptoms) she saw ribbons in [...] 25 mg PRN medications: (more content not included)...[facility]02-11-2025 NoteProblem: Anxiety Goal: STG-Cooperates with evaluations from physicians/RNs Outcome: Progressing Problem: Confusion Goal: LTG-Take medications as prescribed Outcome: Progressing Problem: Depression Goal: LTG-Engage in self care as tolerated Outcome: Progressing Problem: Fall Risk Goal: LTG-No falls Outcome: [facility] NoteFamily Therapist discharge plan Package Dyer witnessed pt sitting on the floor. Pt reported that she placed herself on the floor, believes that she is going to hell, and this is because she is a bad person and she has not done anything good recently. Package Dyer informed her of multiple reasons why she is a good person. Pt also felt sad because her family is changing their names since they do not want to be associated with her. After given support, pt was able to get up on her own, and wandered around the unit. [facility]02-11-2025 Note Attestation signed by Brianda De [...] tablet 20 mg, 20 mg, oral, Nightly, Rima Kononov, DO, 20 mg at 06/26/242043 memantine (Namenda) tablet 5 mg, 5 mg, oral, Daily, Irma Kononov, DO, 5 mg at 06/26/24807 nystatin (Mycostatin) 100,000 unit/gram powder, , Topical, BID, Du Mcmillan MD, Given at 06/26/242044 OLANZapine (ZyPREXA) injection 2.5 mg, 2.5 mg, intramuscular, BID PRN, Mily Juarez MD pimavanserin (Nuplazid) capsule 34 mg, 34 mg, oral, Daily, Irma Amayaonov, DO, 34 mg at 06/26/24807 polyethylene glycol [...] adjust bowel regimen, s (more content not included)...[facility]02-11-2025 Note Attestation signed by Irma Greco [...] Patient Name: Donnie Bullock MRN / CSN: [id number] Date of / Age: 6 1955 / 68 y.o. / female Encounter Date: 06/27/24 Diagnosis: Dementia with Lewy Bodies, Associated REM Sleep behavioral disorder Summary Health care surrogate: Vimal Bullock ([phone]) Mrs. Bullock's cognitive decline started in April,. [...] by Dr. Judy Chino, a psychologist in [place]. She then, approximately 1 year ago, began seeing neurology (Dr. Ambrose at [facility]). She also presented to [facility] for a second opinion in April, (MOCA score at that time was 17/30). The patient previously received services through [facility], this care was reported to be for her major neurocognitive disorder. This week the patient was experiencing worsening hallucinations. On Wednesday (06/05/2024) she reported that she killed her 4 kids and grandchildren. She stated she had their head in bags. The next day (06/06/2024) she was increasingly paranoid and told her that the automatic seamer was coming to take her away and she was packing. She experiences visual hallucinations every day, intermittently. In particular, Mrs. Bullock sees babies suffocating and people living in her house. She also reports seeing dogs as well as squirrels on her husbands shoulder when they watch TV together. Furthermore, patient states when she was hospitalized at [facility] for (depressive symptoms) she saw ribbons in [...] 25 mg PRN medications: (more content not included)...[facility]02-10-2025 NoteTreatment Review Per report, pt received tylenol for her back pain. Pt slept for 8 hours. Pt was paranoid about her calling her since she was unable to answer it. Pt continues to have constipation. Pt has been exit seeking at night, has been less redirectable, but these episodes have lessened in the overall amount of time. Discharge plan: [facility]02-10-2025 Note Attestation signed by Brianda De [...] 68 years old female directly admitted to [facility] head from home on 06/09/2024 for management [...] 34 mg, 34 mg, oral, Daily, Irma Amayaonov, DO, 34 mg at 06/26/24 0808 polyethylene glycol (Glycolax) packet 17 g, 17 g, oral, Daily PRN, Du Mcmillan MD, 17 g at 06/26/24 0808 QUEtiapine (SEROquel) tablet 25 mg, 25 mg, oral, TID PRN, Mily Juarez MD, 25 mg at 06/22/24 225 sennosides-docusate sodium (Kriss-Colace) 8.6-50 mg per tablet 2 tablet, 2 tablet, oral, Nightly, Cletu (more content not included)...[facility]02-10-2025 NoteProblem: Anxiety Goal: STG-Cooperates with evaluations [...] Note: Pt has been allowing [facility]als [facility] NotePsychiatry Service Progress Note Identifying Data Patient Name: Donnie Bullock MRN / CSN: [id number] Date of / Age: 6 1955 / 68 y.o. / female Encounter Date: 06/26/24 Diagnosis: Dementia with Lewy Bodies, Associated REM Sleep behavioral disorder Summary Health care surrogate: Vimal Bullock ([phone]) Mrs. Bullock's cognitive decline started in April,. [...] by Dr. Judy Chino, a psychologist in [place]. She then, approximately 1 year ago, began seeing neurology (Dr. Ambrose at [facility]). She also presented to the [facility] for a second opinion in April, (MOCA score at that time was 17/30). The patient previously received services through [facility], this care was reported to be for her major neurocognitive disorder. This week the patient was experiencing worsening hallucinations. On Wednesday (06/05/2024) she reported that she killed her 4 kids and grandchildren. She stated she had their head in bags. The next day (06/06/2024) she was increasingly paranoid and told her that the automatic seamer was coming to take her away and she was packing. She experiences visual hallucinations every day, intermittently. In particular, Mrs. Bullock sees babies suffocating and people living in her house. She also reports seeing dogs as well as squirrels on her husbands shoulder when they watch TV together. Furthermore, patient states when she was hospitalized at [facility] for (depressive symptoms) she saw ribbons in [...] 06/14: Discontinued Rivastigmine 4.6m (more content not included)...[facility]02-09-2025 Note Attestation signed by Jada Aguillon [...] Patient Name: Donnie Bullock MRN / CSN: [id number] Date of / Age: 6 1955 / 68 y.o. / female Encounter Date: 06/25/24 Diagnosis: Dementia with Lewy Bodies, Associated REM Sleep behavioral disorder Summary Health care surrogate: Vimal Bullock ([phone]) Mrs. Bullock's cognitive decline started in April,. [...] by Dr. Judy Chino, a psychologist in [place]. She then, approximately 1 year ago, began seeing neurology (Dr. Ambrose at [facility]). She also presented to the [facility] for a second opinion in April, (MOCA score at that time was 17/30). The patient previously received services through [facility], this care was reported to be for her major neurocognitive disorder. This week the patient was experiencing worsening hallucinations. On Wednesday (06/05/2024) she reported that she killed her 4 kids and grandchildren. She stated she had their head in bags. The next day (06/06/2024) she was increasingly paranoid and told her that the automatic seamer was coming to take her away and she was packing. She experiences visual hallucinations every day, intermittently. In particular, Mrs. Bullock sees babies suffocating and people living in her house. She also reports seeing dogs as well as squirrels on her husbands shoulder when they watch TV together. Furthermore, patient states when she was hospitalized at [facility] for (depressive symptoms) she saw ribbons in [...] Current Home Medications and (more content not included)...[facility]02-09-2025 NotePROGRESS NOTE PATIENT: Donnie Bullock, SEX: [...] 68 years old female directly admitted to [facility] from home on 06/09/2024 for management [...] Derrick Duckworth MD, 650 mg at 06/24/24 1803 atorvastatin (Lipitor) tablet 10 mg, 10 mg, [...] Irma Kononov, DO, 5 mg at 06/24/24 08 nystatin (Mycostatin) 100,000 unit/gram powder, , Topical, BID, Du Mcmillan MD, Given at 06/24/242005 OLANZapine (ZyPREXA) injection 2.5 mg, 2.5 mg, intramuscular, BID PRN, Mily Juarez MD pimavanserin (Nuplazid) capsule 34 mg, 34 mg, oral, Daily, Irma Brunov, DO, 34 mg at 06/24/24 0844 polyethylene [...] offer for Dulcolax at (more content not included)...[facility]02-08-2025 NoteProblem: Anxiety Goal: STG-Cooperates with evaluations from physicians/RNs Outcome: Progressing Goal: STG-Will not pace the floor more than 10 per shift Outcome: Progressing Problem: Confusion Goal: STG-Engages in social situations appropriately 3 per shift Outcome: Progressing Problem: Constipation Goal: STG-Regular elimination pattern by discharge Outcome: Progressing Problem: Fall Risk Goal: STG-Zero falls by discharge Outcome: [facility]ing[facility]2025 NotePROGRESS NOTE PATIENT: Donnie Bullock, SEX: [...] 68 years old female directly admitted to [facility] from home on 06/09/2024 for management [...] Nightly, Irmastephie Amayaonov, DO, 20 mg at 06/23/242028 memantine (Namenda) tablet 5 mg, 5 mg, oral, Daily, Irma Kononov, DO, 5 mg at 06/23/24831 nystatin (Mycostatin) 100,000 unit/gram powder, , Topical, BID, Du Mcmillan MD, Given at 06/23/242028 OLANZapine (ZyPREXA) injection 2.5 mg, 2.5 mg, intramuscular, BID PRN, Mily Juarez MD pimavanserin (Nuplazid) capsule 34 mg, 34 mg, oral, Daily, Irma Amayaonov, DO, 34 mg at 06/23/24831 polyethylene glycol (Glycolax) packet 17 g, 17 g, oral, Daily PRN, Du Mcmillan MD, 17 g at 06/23/2432 QUEtiapine (SEROquel) tablet 25 mg, 25 mg, [...] as needed, and sennos (more content not included)...[id number] NoteTreatment Review Per report, pt has been [...] and went back to bed. Discharge plan: [facility]02-07-2025 Note Attestation signed by Irma Greco [...] Patient Name: Donnie Bullock MRN / CSN: [id number] Date of / Age: 6 1955 / 68 y.o. / female Encounter Date: 06/23/24 Diagnosis: Dementia with Lewy Bodies, Associated REM Sleep behavioral disorder Summary Health care surrogate: Vimal Bullock ([phone]) Mrs. Bullock's cognitive decline started in April,. The patient had COVID-19 in April,, she was never hospitalized and/or in the ICU. She was initially getting lost in familiar areas and forgetting words. Then in Liang, 2023 she wandered out of her home barefoot [...] by Dr. Judy Chino, a psychologist in [place]. She then, approximately 1 year ago, began seeing neurology (Dr. Ambrose at [facility]). She also presented to the [facility] for a second opinion in April, (MOCA score at that time was 17/30). The patient previously received services through [facility], this care was reported to be for her major neurocognitive disorder. This week the patient was experiencing worsening hallucinations. On Wednesday (06/05/2024) she reported that she killed her 4 kids and grandchildren. She stated she had their head in bags. The next day (06/06/2024) she was increasingly paranoid and told her that the automatic seamer was coming to take her away and she was packing. She experiences visual hallucinations every day, intermittently. In particular, Mrs. Bullock sees babies suffocating and people living in her house. She also reports seeing dogs as well as squirrels on her husbands shoulder when they watch TV together. Furthermore, patient states when she was hospitalized at [facility] for (depressive symptoms) she saw ribbons in [...] mg PRN medications: D (more content not included)...[facility]02-07-2025 Note Attestation signed by Du Mcmillan [...] Comments: Patient seen, evaluated and discussed with chief medical director as documented PROGRESS NOTE PATIENT: Donnie Bullock, [...] 68 years old female directly admitted to [facility] from home on 06/09/2024 for management [...] per tablet 2 tablet, (more content not included)...[facility]02-06-2025 Note Attestation signed by Irma Greco [...] Patient Name: Donnie Bullock MRN / CSN: [id number] Date of / Age: 6 1955 / 68 y.o. / female Encounter Date: 06/22/24 Diagnosis: Dementia with Lewy Bodies, Associated REM Sleep behavioral disorder Summary Health care surrogate: Vimal Bullock ([phone]) Mrs. Bullock's cognitive decline started in April,. [...] by Dr. Judy Chino, a psychologist in [place]. She then, approximately 1 year ago, began seeing neurology (Dr. Ambrose at [facility]). She also presented to the [facility] for a second opinion in April, (MOCA score at that time was 17/30). The patient previously received services through [facility], this care was reported to be for her major neurocognitive disorder. This week the patient was experiencing worsening hallucinations. On Wednesday (06/05/2024) she reported that she killed her 4 kids and grandchildren. She stated she had their head in bags. The next day (06/06/2024) she was increasingly paranoid and told her that the automatic seamer was coming to take her away and she was packing. She experiences visual hallucinations every day, intermittently. In particular, Mrs. Bullock sees babies suffocating and people living in her house. She also reports seeing dogs as well as squirrels on her husbands shoulder when they watch TV together. Furthermore, patient states when she was hospitalized at [facility] for (depressive symptoms) she saw ribbons in [...] mg PRN medications: D (more content not included)...[facility]02-06-2025 NotePROGRESS NOTE PATIENT: Donnie Bullock, SEX: female, : 1955 SUBJECTIVE Patient evaluated while sitting by the edge of the bed in her room, in no acute distress. Resident seen for a follow up/med management for neurocognitive disorder with Lewy bodies, generalized anxiety disorder, paroxysmal supraventricular tachycardia, constipation, and COVID-19 in April 2023; 68 years old female directly admitted to [facility] from home on [...] mg, 34 mg, oral, Daily, Irma Greco, DO, 34 mg at 06/21/24 1040 polyethylene glycol (Glycolax) packet 17 g, 17 g, oral, Daily PRN, Du Mcmillan MD, 17 g at 06/21/24 163 QUEtiapine (SEROquel) tablet 25 mg, 25 mg, oral, TID PRN, Mily Juarez MD sennosides-docusate sodium (Kriss-Colace) 8.6-50 mg per tablet 2 tablet, 2 tablet, oral, Nightly, Du Mcmillan MD, 2 tablet at 06/21/242110 ASSESSMENT/PLAN: Slow transit constipation: Currently on polyethylene [...] by mouth at bedtime (more content not included)...[facility]02-05-2025 NoteTreatment Review Per report, pt had a good family visit. Pt reported that she is not going to work (perceived delusion). Pt reported visual hallucinations of seeing her grandchildren. Pt believes that her is having an affair, believes it is with a man, and in the same sentence will talk about him having a girlfriend. Pt had her seroquel stopped. [facility] NoteProblem: Anxiety Goal: STG-Cooperates with evaluations from physicians/RNs Outcome: Progressing Note: Patient co-operative with physical and verbal assessment. Problem: Hypo/Hypertension Goal: STG-Willingly allowing vitals twice daily Outcome: Progressing Note: Patient co-operative with vitals The patient is Moderately Stable - Low risk of patient condition declining or worsening The patient's goals for the shift include rest The clinical goals for the shift include safety/comfortUnMcCull[facility]-2025 NoteNutrition Screening Assessment: Patient Name: Donnie [...] now Question: Room Service? Answer: Yes 06/09/24 170 Meal Intakes: 75-100% average meal intake of [...] with questions and contact the dietitian via [employer] chat 8A-4P Wednesday-Wednesday. Or call the dietitian's office at extension [phone]. For weekends/holidays, the dietitian's can be reached by paging [phone] from 9A-3P. Unable to be reached via [employer] chat on Wednesday & .)[facility]02-05-2025 Note Attestation signed by Irma Greco [...] Patient Name: Donnie Bullock MRN / CSN: [id number] Date of / Age: 6 1955 / 68 y.o. / female Encounter Date: 06/21/24 Diagnosis: Dementia with Lewy Bodies, Associated REM Sleep behavioral disorder Summary Health care surrogate: Vimal Bullock ([phone]) Mrs. Bullock's cognitive decline started in April,. [...] by Dr. Judy Chino, a psychologist in [place]. She then, approximately 1 year ago, began seeing neurology (Dr. Ambrose at [facility]). She also presented to the [facility] for a second opinion in April, (MOCA score at that time was 17/30). The patient previously received services through [facility], this care was reported to be for her major neurocognitive disorder. This week the patient was experiencing worsening hallucinations. On Wednesday (06/05/2024) she reported that she killed her 4 kids and grandchildren. She stated she had their head in bags. The next day (06/06/2024) she was increasingly paranoid and told her that the automatic seamer was coming to take her away and she was packing. She experiences visual hallucinations every day, intermittently. In particular, Mrs. Bullock sees babies suffocating and people living in her house. She also reports seeing dogs as well as squirrels on her husbands shoulder when they watch TV together. Furthermore, patient states when she was hospitalized at [facility] for (depressive symptoms) she saw ribbons in [...] mg PRN medications: D (more content not included)...[facility]02-05-2025 NotePROGRESS NOTE PATIENT: Donnie Bullock, SEX: female, : 1955 SUBJECTIVE Patient evaluated while standing by the door of her room, in no acute distress. Resident seen for a follow up/med management for neurocognitive disorder with Lewy bodies, generalized anxiety disorder, paroxysmal supraventricular tachycardia, constipation, and COVID-19 in April 2023; 68 years old female directly admitted to [facility] head from home on 06/09/2024 for management [...] Irma Greco DO, 5 mg at 06/20/24 0812 nystatin (Mycostatin) 100,000 unit/gram powder, , Topical, [...] transit constipation: Continue s (more content not included)...[facility]02-04-2025 NotePsychiatry Service Progress Note Identifying Data Patient Name: Donnie Bullock MRN / CSN: [id number] Date of / Age: 6 1955 / 68 y.o. / female Encounter Date: 06/20/24 Diagnosis: Dementia with Lewy Bodies, Associated REM Sleep behavioral disorder Summary Health care surrogate: Vimal Bullock ([phone]) Mrs. Bullock's cognitive decline started in April,. [...] by Dr. Judy Chino, a psychologist in [place]. She then, approximately 1 year ago, began seeing neurology (Dr. Ambrose at [facility]). She also presented to [facility] for a second opinion in April, (MOCA score at that time was 17/30). The patient previously received services through [facility], this care was reported to be for her major neurocognitive disorder. This week the patient was experiencing worsening hallucinations. On Wednesday (06/05/2024) she reported that she killed her 4 kids and grandchildren. She stated she had their head in bags. The next day (06/06/2024) she was increasingly paranoid and told her that the automatic seamer was coming to take her away and she was packing. She experiences visual hallucinations every day, intermittently. In particular, Mrs. Bullock sees babies suffocating and people living in her house. She also reports seeing dogs as well as squirrels on her husbands shoulder when they watch TV together. Furthermore, patient states when she was hospitalized at [facility] for (depressive symptoms) she saw ribbons in [...] 06/14: Discontinued Rivastigmine 4.6m (more content not included)...[facility]02-04-2025 NotePROGRESS NOTE PATIENT: Donnie Bullock, SEX: female, : 1955 SUBJECTIVE Patient evaluated in a chair by the table in the dayroom assisted by the nurse, Naty, in no acute distress. Resident seen for a follow up/med management for neurocognitive disorder with Lewy bodies, generalized anxiety disorder, paroxysmal supraventricular tachycardia, constipation, and COVID-19 in April 2023; 68 years old female directly admitted to [facility] head from home on 06/09/2024 for management of worsening visual hallucinations. No nursing or resident concerns besides out looking for the social worker aide and was educated, tolerating meds, no recent [...] Daily, Irma Greco DO, 5 mg at 06/19/24830 nystatin (Mycostatin) 100,000 unit/gram powder, , Topical, BID, Du Mcmillan MD, Given at 06/19/242135 OLANZapine (ZyPREXA) injection 2.5 mg, 2.5 mg, intramuscular, BID PRN, Mily Juarez MD polyethylene glycol (Glycolax) packet 17 g, 17 g, oral, Daily PRN, Du Mcmillan MD, 17 g at 06/18/24 08 QUEtiapine (SEROquel) split tablet 37.5 mg, 37.5 mg, oral, TID with meals, Irma Greco DO, 37.5 mg at 06/19/241656 QUEtiapine (SEROquel) tablet 25 mg, 25 mg, [...] including groin and abdomina (more content not included)...[facility]02-03-2025 NotePsychiatry Service Progress Note Identifying Data Patient Name: Donnie Bullock MRN / CSN: [id number] Date of / Age: 6 1955 / 68 y.o. / female Encounter Date: 06/19/24 Diagnosis: Dementia with Lewy Bodies, Associated REM Sleep behavioral disorder Summary Health care surrogate: Vimal Bullock ([phone]) Mrs. Bullock's cognitive decline started in April,. [...] by Dr. Judy Chino, a psychologist in [place]. She then, approximately 1 year ago, began seeing neurology (Dr. Ambrose at [facility]). She also presented to [facility] for a second opinion in April, (MOCA score at that time was 17/30). The patient previously received services through [facility], this care was reported to be for her major neurocognitive disorder. This week the patient was experiencing worsening hallucinations. On Wednesday (06/05/2024) she reported that she killed her 4 kids and grandchildren. She stated she had their head in bags. The next day (06/06/2024) she was increasingly paranoid and told her that the automatic seamer was coming to take her away and she was packing. She experiences visual hallucinations every day, intermittently. In particular, Mrs. Bullock sees babies suffocating and people living in her house. She also reports seeing dogs as well as squirrels on her husbands shoulder when they watch TV together. Furthermore, patient states when she was hospitalized at [facility] for (depressive symptoms) she saw ribbons in [...] mg. Started additional Seroquel 50 mg nightly. 1/29: Discontinued Rivastigmine 4.6m (more content not included)...[facility]02-03-2025 NoteTreatment Review Per report, pt has been compliant with her medications. Pt reported feeling tired and lazy. Pt wants to be healthy for her so he can take care of her. Pt has been having a poor reported appetite per pt. Pt had a good phone call with her . Pt slept for 5 hours of broken sleep. Discharge plan: [facility]02-03-2025 NoteProblem: Anxiety Goal: STG-Cooperates with evaluations [...] Patient has been doing well without a walker.[facility]02-03-2025 NotePROGRESS NOTE PATIENT: Donnie Richardson Elder, SEX: female, : 1955 SUBJECTIVE Patient evaluated in a chair by the table in the dayroom drinking decaf coffee while awaiting breakfast, in no acute distress. Resident seen for a follow up/med management for neurocognitive disorder with Lewy bodies, generalized anxiety disorder, paroxysmal supraventricular tachycardia, constipation, and COVID-19 in April 2023; 68 years old female directly admitted to [facility] from home on [...] Irma Greco DO, 5 mg at 06/18/24 102 nystatin (Mycostatin) 100,000 unit/gram powder, , Topical, [...] Slow transit constipation: Co (more content not included)...[facility]02-02-2025 NotePsychiatry Service Progress Note Identifying Data Patient Name: Donnie Bullock MRN / CSN: [id number] Date of / Age: 6 1955 / 68 y.o. / female Encounter Date: 06/18/24 Diagnosis: Dementia with Lewy Bodies, Associated REM Sleep behavioral disorder Summary Health care surrogate: Vimal Bullock ([phone]) Mrs. Bullock's cognitive decline started in April,. [...] by Dr. Judy Chino, a psychologist in [place]. She then, approximately 1 year ago, began seeing neurology (Dr. Ambrose at [facility]). She also presented to [facility] for a second opinion in April, (MOCA score at that time was 17/30). The patient previously received services through [facility], this care was reported to be for her major neurocognitive disorder. This week the patient was experiencing worsening hallucinations. On Wednesday (06/05/2024) she reported that she killed her 4 kids and grandchildren. She stated she had their head in bags. The next day (06/06/2024) she was increasingly paranoid and told her that the automatic seamer was coming to take her away and she was packing. She experiences visual hallucinations every day, intermittently. In particular, Mrs. Bullock sees babies suffocating and people living in her house. She also reports seeing dogs as well as squirrels on her husbands shoulder when they watch TV together. Furthermore, patient states when she was hospitalized at [facility] for (depressive symptoms) she saw ribbons in [...] 06/14: Discontinued Rivastigmine 4.6m (more content not included)...[facility]02-02-2025 NoteProblem: Anxiety Goal: STG-Cooperates with evaluations from physicians/RNs Outcome: Progressing Problem: Confusion Goal: LTG-Interact appropriately within social settings Outcome: Progressing Problem: Depression Goal: STG-Will perform 50% of self-care by discharge Outcome: Progressing Problem: Fall Risk Goal: LTG-No falls Outcome: [facility]2025 NotePROGRESS NOTE PATIENT: Donnie Bullock, SEX: female, : 1955 SUBJECTIVE Patient evaluated in a chair by the table in the dayroom eating breakfast, in no acute distress. Resident seen for a follow up/med management for neurocognitive disorder with Lewy bodies, generalized anxiety disorder, paroxysmal supraventricular tachycardia, constipation, and COVID-19 in April 2023; 68 years old female directly [facility] to [facility] from home on [...] Nightly, uD Mcmillan MD, 10 mg at 06/16/242001 melatonin [...] at bedtime daily Depre (more content not included)...[facility] 06-16-2024 NoteProblem: Anxiety Goal: STG-Cooperates with evaluations from physicians/RNs Outcome: Progressing Problem: Confusion Goal: LTG-Take medications as prescribed Outcome: Progressing Problem: Depression Goal: LTG-Demonstrate symptoms will not compromise daily living Outcome: Progressing Problem: Fall Risk Goal: LTG-No falls Outcome: [facility]ingUnMcC[facility] NoteTreatment Review Per report, pt continues to be depressed. Pt was looking for her and her parents yesterday. Pt did not have any hallucinations last night but was having hallucinations in the afternoon and was looking at the ground. Pt had her seroquel increased. [facility] NotePsychiatry Service Progress Note Identifying Data Patient Name: Donnie Bullock MRN / CSN: [id number] Date of / Age: 6 1955 / 68 y.o. / female Encounter Date: 06/16/24 Diagnosis: Dementia with Lewy Bodies, Associated REM Sleep behavioral disorder Summary Health care surrogate: Vimal Bullock ([phone]) Mrs. Bullock's cognitive decline started in April,. [...] by Dr. Judy Chino, a psychologist in [place]. She then, approximately 1 year ago, began seeing neurology (Dr. Ambrose at [facility]). She also presented to the [facility] for a second opinion in April, (MOCA score at that time was 17/30). The patient previously received services through [facility], this care was reported to be for her major neurocognitive disorder. This week the patient was experiencing worsening hallucinations. On Wednesday (06/05/2024) she reported that she killed her 4 kids and grandchildren. She stated she had their head in bags. The next day (06/06/2024) she was increasingly paranoid and told her that the automatic seamer was coming to take her away and she was packing. She experiences visual hallucinations every day, intermittently. In particular, Mrs. Bullock sees babies suffocating and people living in her house. She also reports seeing dogs as well as squirrels on her husbands shoulder when they watch TV together. Furthermore, patient states when she was hospitalized at [facility] for (depressive symptoms) she saw ribbons in [...] 06/14: Discontinued Rivastigmine 4.6m (more content not included)...[facility]01-31-2025 NotePROGRESS NOTE PATIENT: Donnie Bullock, SEX: female, : 1955 SUBJECTIVE Patient evaluated in a chair by the table in the dayroom eating breakfast, in no acute distress.. Resident seen for a follow up/med management for neurocognitive disorder with Lewy bodies, generalized anxiety disorder, paroxysmal supraventricular tachycardia, constipation, and COVID-19 in April 2023; 68 years old female directly admitted to [facility] from home on [...] PRN, Derrick Duckworth MD, 650 mg at 06/15/241042 atorvastatin (Lipitor) tablet 10 mg, 10 mg, [...] 25 mg, oral, TID with meals, Irma Kononov, DO, 25 mg at 06/15/241649 QUEtiapine (SEROquel) tablet 50 mg, 50 mg, oral, Nightly, Irma Kononov, DO, 50 mg at 06/15/242019 sennosides-docusate sodium [...] with Lewy bodies: On (more content not included)...[facility]01-30-2025 NoteProblem: Anxiety Goal: STG-Cooperates with evaluations from physicians/RNs Outcome: Progressing Problem: Confusion Goal: LTG-Interact appropriately within social settings Outcome: Progressing Problem: Psychotic Symptoms Goal: LTG-Take medications as prescribed Outcome: Progressing Problem: Fall Risk Goal: LTG-No falls Outcome: ProgressingUnMcCullough[facility]01-30-2025 NotePROGRESS NOTE PATIENT: Donnie Bullock, SEX: female, : 1955 SUBJECTIVE Patient evaluated while sitting by the edge of the bed in her room, in no acute distress. Resident seen for a follow up/med management for neurocognitive disorder with Lewy bodies, generalized anxiety disorder, paroxysmal supraventricular tachycardia, constipation, and COVID-19 in April 2023; 68 years old female directly admitted to [facility] from home on 06/09/2024 for management [...] 25 mg, oral, TID with meals, Irma Kononov, DO, 25 mg at 06/14/24 165 QUEtiapine (SEROquel) tablet 50 mg, 50 mg, oral, Nightly, Irma Kononov, DO, 50 mg at 06/14/242007 sennosides-docusate sodium [...] daily Major Neurocognitive Di (more content not included)...[facility]01-30-2025 NotePsychiatry Service Progress Note Identifying Data Patient Name: Donnie Bullock MRN / CSN: [id number] Date of / Age: 6 1955 / 68 y.o. / female Encounter Date: 06/15/24 Diagnosis: Dementia with Lewy Bodies, Associated REM Sleep behavioral disorder Summary Health care surrogate: Vimal Bullock ([phone]) Mrs. Bullock's cognitive decline started in April,. [...] by Dr. Judy Chino, a psychologist in [place]. She then, approximately 1 year ago, began seeing neurology (Dr. Ambrose at [facility]). She also presented to the [facility] for a second opinion in April, (MOCA score at that time was 17/30). The patient previously received services through [facility], this care was reported to be for her major neurocognitive disorder. This week the patient was experiencing worsening hallucinations. On Wednesday (06/05/2024) she reported that she killed her 4 kids and grandchildren. She stated she had their head in bags. The next day (06/06/2024) she was increasingly paranoid and told her that the automatic seamer was coming to take her away and she was packing. She experiences visual hallucinations every day, intermittently. In particular, Mrs. Bullock sees babies suffocating and people living in her house. She also reports seeing dogs as well as squirrels on her husbands shoulder when they watch TV together. Furthermore, patient states when she was hospitalized at [facility] for (depressive symptoms) she saw ribbons in [...] 06/14: Discontinued Rivastigmine 4.6m (more content not included)...[facility]01-29-2025 NoteProblem: Anxiety Goal: STG-Cooperates with evaluations from physicians/RNs Outcome: Progressing Problem: Confusion Goal: LTG-Interact appropriately within social settings Outcome: Progressing Problem: Depression Goal: LTG-Take medications as prescribed Outcome: Progressing Problem: Psychotic Symptoms Goal: LTG-Decrease in targeted symptoms Outcome: ProgressingUnMcCullough[facility]01-29-2025 NoteTreatment Review Per report, pt understands that she is diagnosed with lewy body dementia. Pt reported that she saw a bunny on the foot of her bed. Discharge plan: [facility]UnMcC[facility]01-[facility]-2025 NoteProblem: Anxiety Goal: STG-Cooperates with evaluations from physicians/RNs Outcome: Progressing Goal: STG-Will not pace the floor more than 10 per shift Outcome: Progressing Problem: Confusion Goal: STG-Engages in social situations appropriately 3 per shift Outcome: Not ProgressingUnMcCullough-[facility]01-29-2025 Note PROGRESS NOTE PATIENT: Donnie Bullock, SEX: female, : 1955 SUBJECTIVE Patient evaluated while lying down supine in bed in her room, in no acute distress. Resident seen for a follow up/med management for neurocognitive disorder with Lewy bodies, generalized anxiety disorder, paroxysmal supraventricular tachycardia, constipation, and COVID-19 in April 2023; 68 years old female directly admitted to [facility] from home on [...] mg by mouth (more content not included)... [facility]01-29-2025 NotePsychiatry Service Progress Note Identifying Data Patient Name: Donnie Bullock MRN / CSN: [id number] Date of / Age: 6 1955 / 68 y.o. / female Encounter Date: 06/14/24 Diagnosis: Dementia with Lewy Bodies, Associated REM Sleep behavioral disorder Summary Health care surrogate: Vimal Bullock ([phone]) Mrs. Bullock's cognitive decline started in April,. [...] by Dr. Judy Chino, a psychologist in [place]. She then, approximately 1 year ago, began seeing neurology (Dr. Ambrose at [facility]). She also presented to the [facility] for a second opinion in April, (MOCA score at that time was 17/30). The patient previously received services through [facility], this care was reported to be for her major neurocognitive disorder. This week the patient was experiencing worsening hallucinations. On Wednesday (06/05/2024) she reported that she killed her 4 kids and grandchildren. She stated she had their head in bags. The next day (06/06/2024) she was increasingly paranoid and told her that the automatic seamer was coming to take her away and she was packing. She experiences visual hallucinations every day, intermittently. In particular, Mrs. Bullock sees babies suffocating and people living in her house. She also reports seeing dogs as well as squirrels on her husbands shoulder when they watch TV together. Furthermore, patient states when she was hospitalized at [facility] for (depressive symptoms) she saw ribbons in [...] 06/14: Discontinued Rivastigmine 4.6m (more content not included)...[facility]01-28-2025 NoteProblem: Agitation Goal: LTG-Sleeps through the night Outcome: Not Progressing Problem: Anxiety Goal: LTG-Decrease worry of fearful thoughts and/or behaviors Outcome: Not Progressing Problem: Confusion Goal: LTG-Interact appropriately within social settings Outcome: Not ProgressingUnMcCullough-[facility]01-28-2025 Note PROGRESS NOTE PATIENT: Donnie Bullock, SEX: female, : 1955 SUBJECTIVE Patient evaluated in a chair by the table in the dayroom eating breakfast, in no acute distress. Resident seen for a follow up/med management for neurocognitive disorder with Lewy bodies, generalized anxiety disorder, paroxysmal supraventricular tachycardia, constipation, and COVID-19 in April 2023; 68 years old female directly admitted to [facility] from home on [...] 12 mg, 12 mg, oral, Nightly, Irma Amayaonov, DO, 12 mg at 06/12/242004 mirtazapine (Remeron) tablet 7.5 mg, 7.5 mg, oral, Nightly, Mily Juarez MD, 7.5 mg at 06/12/242004 nystatin (Mycostatin) 100,000 unit/gram powder, , Topical, BID, Du Mcmillan MD OLANZapine (ZyPREXA) injection 2.5 mg, 2.5 mg, intramuscular, BID PRN, Mily Juarez MD QUEtiapine (SEROquel) split tablet 12.5 mg, 12.5 mg, oral, TID with meals, Irma Amayaonov, DO, 12.5 mg at 06/12/24 1731 QUEtiapine [...] olanzapine and quetiapine as (more content not included)...[facility]01-28-2025 Note Psychiatry Service Progress Note Identifying Data Patient Name: Donnie Bullock MRN / CSN: [id number] Date of / Age: 6 1955 / 68 y.o. / female Encounter Date: 06/13/24 Diagnosis: Dementia with Lewy Bodies, Associated REM Sleep behavioral disorder Summary Health care surrogate: Vimal Bullock ([phone]) Mrs. Bullock's cognitive decline started in April,. [...] by Dr. Judy Chino, a psychologist in [place]. She then, approximately 1 year ago, began seeing neurology (Dr. Ambrose at [facility]). She also presented to the [facility] for a second opinion in April, (MOCA score at that time was 17/30). The patient previously received services through [facility], this care was reported to be for her major neurocognitive disorder. This week the patient was experiencing worsening hallucinations. On Wednesday (06/05/2024) she reported that she killed her 4 kids and grandchildren. She stated she had their head in bags. The next day (06/06/2024) she was increasingly paranoid and told her that the automatic seamer was coming to take her away and she was packing. She experiences visual hallucinations every day, intermittently. In particular, Mrs. Bullock sees babies suffocating and people living in her house. She also reports seeing dogs as well as squirrels on her husbands shoulder when they watch TV together. Furthermore, patient states when she was hospitalized at [facility] for (depressive symptoms) she saw ribbons in [...] Subjective Overnight Events: She (more content not included)...[facility]01-27-2025 NoteTreatment Review Per report, pt rated her anxiety a 5 and her depression a 4. Pt denied having visual hallucinations of ribbons. Pt told RN that there was a fire truck in her room dressed as a bumble bee. Discharge plan: [facility]01-27-2025 NotePsychiatry Service Progress Note Identifying Data Patient Name: Donnie Bullock MRN / CSN: [id number] Date of / Age: 6 1955 / 68 y.o. / female Encounter Date: 06/12/24 Diagnosis: Dementia with Lewy Bodies, Associated REM Sleep behavioral disorder Summary Health care surrogate: Vimal Bullock ([phone]) Mrs. Bullock's cognitive decline started in April,. [...] by Dr. Judy Chino, a psychologist in [place]. She then, approximately 1 year ago, began seeing neurology (Dr. Ambrose at [facility]). She also presented to the [facility] for a second opinion in April, (MOCA score at that time was 17/30). The patient previously received services through [facility], this care was reported to be for her major neurocognitive disorder. This week the patient was experiencing worsening hallucinations. On Wednesday (06/05/2024) she reported that she killed her 4 kids and grandchildren. She stated she had their head in bags. The next day (06/06/2024) she was increasingly paranoid and told her that the automatic seamer was coming to take her away and she was packing. She experiences visual hallucinations every day, intermittently. In particular, Mrs. Bullock sees babies suffocating and people living in her house. She also reports seeing dogs as well as squirrels on her husbands shoulder when they watch TV together. Furthermore, patient states when she was hospitalized at [facility] for (depressive symptoms) she saw ribbons in [...] the unit at t (more content not included)...[facility]01-27-2025 Note PROGRESS NOTE PATIENT: Donnie Bullock, [...] 68 years old female directly admitted to [facility] head from home on 06/09/2024 for management [...] patch, 1 patch, transdermal, Daily, Irma Greco DO 1 patch at 06/11/24 1314 sennosides-docusate sodium (Kriss-Colace) 8.6-50 mg per tablet [...] as needed, psych manage Du Mcmillan MD 06/12/2024[facility]01-26-2025 NotePsychiatry Service Progress Note Identifying Data Patient Name: Donnie Bullock MRN / CSN: [id number] Date of / Age: 6 1955 / [...] for: TSH , VITD25 , FOLATE , [id number] Lab Results Component Value Date LDL 160 [...] appetite Encourage participation in therapeutic unit milieu. Margaret Irma Greco, DO 06/11/2024 1:16 PM [facility] of PsychiatryUnMcCull[facility]01-26-2025 Note PROGRESS NOTE PATIENT: Donnie Bullock, SEX: female, : 1955 SUBJECTIVE Patient evaluated in a chair by the table in the dayroom just done eating breakfast, in no acute distress. Resident seen for a follow up/med management for neurocognitive disorder with Lewy bodies, generalized anxiety disorder, paroxysmal supraventricular tachycardia, constipation, and COVID-19 in April 2023; 68 years old female directly admitted to [facility] from home on 06/09/2024 for management [...] as needed, psych manage Du Mcmillan MD 06/11/2024[facility]01-25-2025 NoteProblem: Anxiety Goal: STG-Cooperates with evaluations [...] The clinical goals for the shift include safetyUnMcCullough-Hyde [facility]01-25-2025 Note Attestation signed by MINDY Hunt at 06/10/2024 10:24 AM I agree with the content of this note and have no current revisions. Psychosocial Narrative Summary Subject: Donnie A Elder Reason for admission: Patient is a 68 year old female who was directly admitted to the [facility] unit from home after worsening depression, [...] Patient then saw neurologist Dr. Ambrose at [facility] and went for a second opinion at the [facility]. Patient was in a psychiatric hospitalization for depression at [facility] in September 2023. Patient has since become isolative, not wanting to see her friends or have people at [employer] see her. Patient has recently been having worsening hallucinations, reporting that she killed her 4 kids and grandchildren and that she had their heads in bags. She also commented that the automatic seamer was coming to take her away and that there were squirrels on her 's shoulders when they watched tv together. [facility], she reported seeing ribbons in the hospital. [...] follow up with her outpatient provider, Dr. AmbroseUnMcCullough-[facility]01-25-2025 NoteHISTORY AND PHYSICAL PATIENT: Donnie Bullock, SEX: female, : 1955 Chief Complaint: Geriatrics consulted for medical management History of Present Illness: Patient evaluated while lying down supine in bed in her room, in no acute distress. 68 years old female directly admitted to [facility] from home on 06/09/2024 for management of [...] Patient declined Stress: Stress Concern Present (06/10/2024) [employer] - Occupational Stress Questionnaire Feeling of Stress : To some extent Social Connections: Moderately Integrated (06/10/2024) Social Connection and Isolation Panel [NHANES] Frequency of Communication with Friends and Family: Twice a week Frequency of Social Gatherings with Friends and Family: Three times a week Attends [employer]ab[employer]ist Services: More than 4 times per year [...] Palpations: Abdomen is soft. (more content not included)...[facility]01-13-2025 Telephone encounter Note* Telephone Encounter - Ivette Kerr RN - 05/29/2024 5:01 PM EST Noted. Ivette Kerr RN [facility] Work Phone: [phone] Miscellaneous Notes* Telephone Encounter - Ivette Kerr RN - 05/29/2024 5:01 PM EST Noted. Ivette Kerr RN documented in [facility] encounterPeoples [facility]01-13-2025 Telephone encounter Note * Telephone Encounter [...] will be picked tomorrow from [facility] and Vimal will mail it to Sera Killian APRN, [employer]. - Vimal was advised to keep our office updated. Ivette Kerr RN [facility] Work Phone: [phone] Miscellaneous Notes* Telephone Encounter - Ivette Kerr [...] will be picked tomorrow from [facility] and Vimal will mail it to Sera Killian APRN, [employer]. - Vimal was advised to keep our office updated. Ivette Kerr RN * Telephone Encounter - Rose Baldwin - 05/29/2024 12:04 PM EST Spouse, Vimal SANDERS on [facility] Nurse Line on 05/26 @2:07P. Pt name and verified 1955. Vimal states pt is shaking bad and really anxious. Please call back at . Thank you, Rose * Telephone Encounter - Sera Killian APRN.ELIANE - [...] week. Sera Killian APRN.ELIANE documented in this encounterPeoples Hospital01-13-2025 Telephone encounter Note * Telephone Encounter - Rose Baldwin - 05/29/2024 12:04 PM EST Spouse, Vimal SANDERS on [facility] Nurse Line on 05/26 @2:07P. Pt name and verified 1955. Vimal states pt is shaking bad and really anxious. Please call back at . Thank you, Rose [facility]01-13-2025 History of Present illness Narrative* Rei Cobos DO - 05/29/2024 8:45 AM EST Images from the original note were not included. Chief Complaint: Dementia Subjective Donnie Richardson Elder, 68 y.o., female Patient presents today for a follow up for rapidly progressive dementia. She is accompanied by her and son. states they got a second opinion at [facility]. She was started on donepezil 5 [...] chronic DDD (degenerative disc disease), cervical Dementia ([facility]) Depression ([facility]) May 25 Dyslipidemia ([facility]) DALILA (generalized anxiety disorder) ([facility]) Gastroesophageal reflux disease Impaired fasting glucose Lewy body dementia ([facility]) Loss of balance Low back pain, non-specific Olecranon bursitis, right elbow Orthostatic hypotension Osteopenia of lumbar spine Parkinson's disease ([facility]) 2023 PSVT (paroxysmal supraventricular tachycardia) ([facility]) Skin cancer Vertigo Past Surgical History: Procedure Laterality Date CARPAL TUNNEL RELEASE Left 06/15/2014 MTP CARPAL TUNNEL RELEASE Right 06/29/2014 [facility]TP DILATION AND CURETTAGE OF UTERUS 2004 EYE SURGERY HYSTERECTOMY 2008 OK REMOVE TONSILS/ADENOIDS,12+ Y/O 195 Family History Problem [...] reflexes are 2+ and symmetric throughout. Coordination: [id number] testing and rapid alternating movements are normal [...] dementia. Patient did have a visit with [facility] and they had recommended coming off [...] of mental health issues documented in this encounterLiberty [id number] Telephone encounter Note* Telephone Encounter - Sera [...] follow up next week. Sera Killian APRN.CNP [facility]01-06-2025 Telephone encounter Note* Telephone Encounter - Sera Killian APRN.CNP - 05/22/2024 3:09 PM EST The following approved medication requests have been transmitted electronically. Requested Prescriptions Signed Prescriptions Disp Refills donepezil (ARICEPT) 5 mg tablet 30 tablet 3 Sig: Take 1 tablet by mouth daily after breakfast. Authorizing Provider: SERA KILLIAN APRN.CNP [facility]01-06-2025 Miscellaneous Notes* Telephone Encounter - Sera Killian APRN.CNP - 05/22/2024 3:09 PM EST The following approved medication requests have been transmitted electronically. Requested Prescriptions Signed Prescriptions Disp Refills donepezil (ARICEPT) 5 mg tablet 30 tablet 3 Sig: Take 1 tablet by mouth daily after breakfast. Authorizing Provider: SERA KILLIAN APRN.CNP [facility] Telephone encounter Note * Telephone Encounter - Sera Killian APRN.CNP - 05/22/2024 2:09 PM EST OG call to spouse, discussion held. We agreed to continue the taper of Haldol as originally ordered. And add Donepezil (Aricept) 5 mg daily after breakfast. Sera Killian APRN.CNP [facility]01-06-2025 Miscellaneous Notes* Telephone Encounter - Sera [...] 05/18/2024. Advised that he may send a Spry Message. Ivette Kerr RN * Telephone Encounter - Ivette Kerr RN - 05/15/2024 5:28 PM EST Voice message left for Vimal that someone from our office will attempt to reach out to him on the next business day to address his concerns. Ivette Kerr RN * Telephone Encounter - Rose Baldwin - 05/15/2024 3:18 PM EST Spouse, Carlos SANDERS on [facility] Nurse Line on 05/15 @2:59P. Pt name and verified 1955. Carlos is requesting to speak with nurse re: pt symptoms. Hallucinations are getting worse. Please call back at . Thank you, Rose [facility] Telephone encounter Note * Telephone Encounter [...] dose of Haldol until Vernon Killian APRN, LOGISTICS SUPPORT reviews and makes her recommendation. Donnie does have a follow up with local neurologist on 05/29/2024 and a follow up on 07/27/2024 with Sera. Ivette Kerr RN [facility] Work Phone: [phone] Telephone encounter Note* Telephone Encounter - Ivette [...] on Vimal's cell phone. Ivette Kerr RN [facility]12-31-2024 Telephone encounter Note* Telephone Encounter - Ivette Kerr RN - 05/16/2024 1:57 PM EST Second Attempt Voice message left for Vimal that someone from our office will attempt to reach out to him on the next business day, 05/18/2024. Advised that he may send a AIRSIS Chart Message. Ivette Kerr RN [facility]12-30-2024 Telephone encounter Note* Telephone Encounter - Ivette Kerr RN - 05/15/2024 5:28 PM EST Voice message left for Vimal that someone from our office will attempt to reach out to him on the next business day to address his concerns. Ivette Kerr RN [facility]12-30-2024 Telephone encounter Note* Telephone Encounter - Rose Baldwin - 05/15/2024 3:18 PM EST Spouse, Carlos LVM on [facility] Nurse Line on 05/15 @2:59P. Pt name and verified 1955. Carlos is requesting to speak with nurse re: pt symptoms. Hallucinations are getting worse. Please call back at . Thank you, Rose [facility]12-19-2024 History of Present illness Narrative* Remigio Simpson MD - 05/04/2024 12:19 PM EST requests PT specifically for Parkinson's disease. Please write order for PT to evaluate andtreat with diagnosis of Lewy body dementia and Parkinson's. Please send order to PT Services in [place]. documented in this encounterLiberty HospitalAhgvhvrbjh20-11-5337 History of Present illness Narrative* Herson Uribe, DPM - 05/03/2024 9:45 AM EST Images [...] OF UTERUS 2004 EYE SURGERY HYSTERECTOMY 2008 [place] REMOVE TONSILS/ADENOIDS,12+ Y/O 1961 Family History Family [...] understanding. Herson Uribe DPM documented in this [facility]12-18-2024 Instructions* Patient Instructions* Herson Uribe DPM - 05/03/2024 9:45 AM EST As noted documented in this [facility]12-11-2024 Telephone encounter Note* Telephone Encounter - [...] or concerns that arise. Francie Lira RN [facility]12-11-2024 Miscellaneous Notes* Telephone Encounter - Francie Lira [...] advise. Francie Lira RN documented in [facility] encounterPe[facility]12-10-2024 Telephone encounter Note * Telephone Encounter [...] to review and advise. Francie Lira RN [facility]12-05-2024 Telephone encounter Note* Telephone Encounter - Sera Killian APRN.CNP - 04/20/2024 5:03 PM EST Confidential email correspondence sent to spouse re: updated Haldol taper dosing as follows: Reduce to Haldol 1 mg at bedtime for two weeks, then, Reduce to Haldol 0.5 mg (1/2 of 1mg tab) at bedtime for two weeks - then stop altogether. Sera Killian APRN.CNP [facility]12-05-2024 Miscellaneous Notes* Telephone Encounter - Sera Killian APRN.CNP - 04/20/2024 5:03 PM EST Confidential email correspondence sent to spouse re: updated Haldol taper dosing as follows: Reduce to Haldol 1 mg at bedtime for two weeks, then, Reduce to Haldol 0.5 mg (1/2 of 1mg tab) at bedtime for two weeks - then stop altogether. Sera Killian APRN.CNP documented in this encounterPeoples Hospital12-05-2024 Telephone encounter Note * Telephone Encounter [...] other questions or concerns. Francie Lira RN [facility]12-05-2024 Miscellaneous Notes* Telephone Encounter - Francie [...] concerns. Francie Lira RN documented in this encounterPeoples Hospital12-04-2024 Instructions* Patient Instructions* Sera Killian APRN.CNP - 04/19/2024 1:58 PM EST Dear Mrs. [...] Lifesaver Program is offered through your local [facility]. Project Lifesaver provides a technological means for [...] about this program or register call the [facility]'s office at [phone] or [facility] Traveller Services at [phone] ([facility]). Medical Alert System Today Donnie had difficulty recalling what number to contact in the event of an emergency. We recommend utilizing a Medical Alert System to increase safety in the home. In the event of a fall or an emergency, help is available at the push of a button. Some options for this are: Trellis Automation: Call or visit https://YaSabe/ & click on Seniors tab -Mobile System. -Fall detection. -Medication reminders. -GPS monitoring. -Kale fencing option for wandering. -Checks heart rate, blood pressure, temperature, and oxygen levels. -Worn as a wristband. Life Alert: Call or visit www.AnSyn -Offers home based and mobile system. -Offers a push button for the shower. -Comes in a lanyard. Lifefone: Call or visit www.Apto -Home based or mobile system. -Fall detection. -GPS detects location of emergency. -Water proof. -Worn as a lanyard, wristband, or offers a push button. Lifeline: Call or visit wwwAsterisk -Home based & mobile system. -Fall detection. -GPS detects location of the emergency. -Water resistant; can be worn in the shower. -Worn as a wristband or lanyard. Lively: Call or visit www.MoFuse/medical-alerts -Offers mobile systems. -Offers fall detection. -Comes in a lanyard. Also compatible with SourceClear. Medical Alert: Call or visit www.Music Mastermind -Offers home based & mobile system. -Mobile system offers GPS monitoring. -Fall detection for all systems. -Systems can be worn in the bath or shower. -Two way speaker allows you to communicate with a trained response specialist who will determine who to contact for help (family, friends, or emergency responders). -Comes in a lanyard or wristband. Medical Guardian: Call or visit www.Gammastar Medical Group -Offers home based and mobile system. -GPS tracking for mobile system. -Water resistant, not water proof. -Worn as a lanyard or wristband. Mobile Help: Call or visit www.Carmudi -Offers home based & mobile system. -Comes in a lanyard or small mobile device. Blottrear: Call or visit www.Trellis Automation -Home based and mobile system. -Fall detection. [...] to build a relationship with the caregiver. [facility] Adult [facility]: or Khushboo Capps Uniplaces: [facility]: (Limited services at this time) Comfort Keepers: (Services in [facility] are limited, but available) First Choice: or Home Instead: [facility] Health: [facility]: Luis Capps: (Serves [facility]) Education & Support When an individual [...] [email or web address].org or call their support line at [phone] or The Alzheimer's Association (web site: alz.org/[place]) An organization that provides education and support to individuals/caregivers affected by memory loss, Alzheimer's disease, and all forms of dementia. Available 24 hours a day, 7 days per week. Contact: Local: ; Toll free: [phone] Family Caregiver [place] (web site: Caregiver.org) BLANK Parrish-- a secure online solution for quality information, support, and resources for family caregivers. Contact: Toll-free number: [phone] Support Group Information [facility] Lewy Body Dementia Caregiver Support Group-Co sponsored by The Alzheimer's Association Second Wednesday of each month from 1:30-3:30pm Virtual group by zoom, intended for caregivers of persons living with Dementia with Lewy Bodies andParkinson s Disease Dementia. To enroll in the group, please contact the Alzheimer s Association Helpline at [facility] Lewy Body Support Group Wednesday of the Month 3:00pm EST Virtual group by Zoom to support caregivers of those with Lewy Body Dementia. For more information and for the Zoom link, please contact Starla Coello at [phone] or Literature The 36 Hour Day- Shy Irwin and Charles Aguilar (Audible available) Ambiguous Loss- Bria Lo Vadim's Story-By Isaak Andrade (Audible available) My Two [...] place (living will & healthcare power of prosecuting attorney), which is excellent. Documents for healthcare can be uploaded to your medical record in the following ways: -Bring the forms to any [facility] medical appointment. A copy will be made and scanned into your medical record. -Scan and send to [email or web address] -Fax to [phone] -Mail to: [facility] Information Management, Ab7 Advance Directives Processing [address] [place] [address] Durable Power of Valve Lapper for Finance We encourage you to verify that the forms for durable power of prosecuting attorney regarding finance have beencompleted. Durable Power of Valve Lapper for Finance allows a person to name an individual that they would want tomake financial decisions on their behalf, in the event that they are unable to do so. These decisions may include: -Payment of a loved one s bills -Payment of their medical expenses -Investments made on their behalf -Collection of their correction benefits -Application for insurance benefits You can visit [email or web address] for more information. These forms require a notary upon completion. Follow Up We would like you to return to [facility] for a follow up visit in 3-4 months. Our office can be reached by calling [phone] Option 1. Sincerely, Sera Killian APRN.CONTROL SPECIALIST JOSÉ ANTONIO Srivastava, BEBE [place] documented in this encounterPeoples Hospital12-04-2024 NoteHNO ID: [id number] Author: NIKKI DARBY LISW Service: ? 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 Pt states that her is pursuing a second opinion regarding her DLB Vital Signs: BP 129/83 (BP Site: Left Arm, BP Position: Sitting, BP Cuff Size: Regular Adult) Pulse 76 Wt 73.8 kg (162 lb 11.2 oz) Francie Lira RNWvumedicine [facility]12-04-2024 History of Present illness Narrative* Francie Lira RN - 04/19/2024 12:45 PM ESTSummary: Nurse Note Donnie Bullock is a 68 year old year old left handed woman Accompanied by: spouse and son. Referralby: No referring provider defined for this encounter. 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 Pt states that her is pursuing a second opinion regarding her DLB Vital Signs: BP 129/83 (BP Site: Left Arm, BP Position: Sitting, BP Cuff Size: Regular Adult) Pulse 76 Wt 73.8 kg (162 lb 11.2 oz) Francie Lira RN * Sera Killian APRN.LOGISTICS SUPPORT - 04/19/2024 11:58 AM EST Date: April 19, 2024 DONINE [address] [place] [address] [place] [address] [facility] INITIAL PATIENT EVALUATION Reason for Consult: Lewy Body Dementia-here for a 2nd opinion I had the pleasure of seeing this 68 year old year old female at the [facility]. The patient is referred by SELF. Patient is accompanied by and information obtained from Navid and son Geoff and available records in [...] by neurology provider Dr. Rei Cobos at [facility], followed since August 2023. No cognitive testing on file. Formerly followed by psychiatry for LBD/anxiety. Last seen in September 2023. Care was established following her inpatient behavioral health hospitalization in April 2023/May 2023. No family history of dementia or Parkinson's Disease. Per spouse and son report: -Lumbar puncture at [facility] September 30, 2023. Work up completed for possible rapidly progressing dementia. -Prior brain imaging (MRI/CT at outside medical systems). -Hallucinations daily (asks her spouse when is Vimal going to come home? ; sees babies; puppies, squirrel on spouse's shoulder, gives sign of peace to people she sees in her home). -Recently discharged from [facility] services 4 months ago. Also previously [...] wanting to live, she was admitted to [facility] for further evaluation. Mobility changes at this [...] spouse Agencies involved: none currently-previously followed by [facility] Special Concerns: Hallucinations/Delusions: [...] Financial POA: Spouse will verify-information reviewed Consult [facility] AD OPERATIONS COORDINATOR if not completed: role introduced, reviewed national organizations offering support, provided communication tips and caregiver strategies. SOCIAL HISTORY -Education completed: 14 -Some college -No tobacco. No significant alcohol abuse. No history of substance abuse. 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 -Marital status: -4 children -Guardian No -Is [...] due to lack of insight Insight: good [place] Cognitive Assessment (MoCA) Version 7.1 Total Score: 17/30 Visuospatial/Executive Alternating [place] Making: Patient is unable to successfully complete [...] (name of hospital, clinic, office). Orientation Score: 07/20 Education less than or equal to 12th [...] Clock Drawin/5 poor Abstract thinking was good. FCI memory was good. She could name 7 [...] diagnosis. This is her first visit to [facility]. MoCA administered with score of 17/30. [...] to live, and she was admitted to [facility] for further evaluation. She was placed on [...] which included preparing to see the patient, nskl-jm-tozh patient care, completing clinical documentation, obtaining and/or reviewing separately obtained history, counseling and educating the patient/family/caregiver, ordering medications, gloria ts, or procedures, communicating with other HCPs (not separately reported) and care coordination (not separately reported). Sera Killian APRN, Geriatric Clinical Nurse Specialist [facility] CC: 1. No primary care provider on file., (fax) None [address] [place] [address] [place] [id number] documented in this encounterPeoples Hospital12-04-2024 NoteHNO ID: [id number] Author: SERA KILLIAN APRN.LOGISTICS SUPPORT Service: ? Author Type: Nurse Practitioner Type: Progress Notes Filed: 04/19/2024 17:34 Note Text: Date: April 19, 2024 DONNIE BULLOCK [address] [address] [facility] INITIAL PATIENT EVALUATION Reason for Consult: Lewy Body Dementia-here for a 2nd opinion I had the pleasure of seeing this 68 year old year old female at the [facility]. The patient is referred [...] by neurology provider Dr. Rei Cobos at [facility], followed since August 2023. No cognitive testing on file. Formerly followed by psychiatry for LBD/anxiety. Last seen in September 2023. Care was established following her inpatient behavioral health hospitalization in April 2023/May 2023. No family history of dementia or Parkinson's Disease. Per spouse and son report: -Lumbar puncture at [facility] September 30, 2023. Work up completed for possible rapidly progressing dementia. -Prior brain imaging (MRI/CT at outside medical systems). -Hallucinations daily (asks her spouse when is Vimal going to come home? ; sees babies; puppies, squirrel on spouse's shoulder, gives sign of peace to people she sees in her home). -Recently discharged from [facility] services 4 months ago. Also previously [...] wanting to live, she was admitted to [facility] for further evaluation. Mobility changes at this [...] spouse Agencies involved: none currently-previously followed by [facility] Special Concerns: Hallucinations/Delusions: [...] Financial POA: Spouse will verify-information reviewed Consult [facility] AD OPERATIONS COORDINATOR if not completed: role introduced, reviewed national organizations offering support, provided communication tips and caregiver strategies. SOCIAL HISTORY -Education completed: 14 -Some college -No tobacco. No significant alcohol abuse. No history of substance abuse. 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 Please send orders to [facility]. documented in this encounterLiberty [id number] History of Present illness Narrative* Alexandria Mcnair, PT - 04/04/2024 10:00 AM EST Images [...] prn Neuromuscular re-education: x12 min Balance training, march walk/BW walk 3 laps x 30 ft [...] Continue progression as tolerated. documented in this encounterLiberty [id number] History of Present illness Narrative* Deneen Miller, PORTAL DEVELOPER - 03/30/2024 11:30 AM EST Images from [...] 03/31/2024 6:38 AM EST documented in this encounterLiberty HospitalWowpazmxzq38-58-9541 History of Present illness Narrative* Beti Chávez [...] walk/ walk, lateral steps 3 laps ~30 fthall, [...] 03/28/2024 5:37 PM EST documented in this encounterLiberty HospitalJcmgxkxqto13-03-1889 History of Present illness Narrative* Alexandria Mcnair, PT - 03/22/2024 1:00 PM EST Images [...] Continue progression as tolerated. documented in this encounterLiberty [id number] History of Present illness Narrative* Rei Cobos, [...] chronic DDD (degenerative disc disease), cervical Dementia ([facility]) Depression ([facility]) May 25 Dyslipidemia ([facility]) DALILA (generalized anxiety disorder) ([facility]) Gastroesophageal reflux disease Impaired fasting glucose Lewy body dementia ([facility]) Loss of balance Low back pain, non-specific Olecranon bursitis, right elbow Orthostatic hypotension Osteopenia of lumbar spine Parkinson's disease ([facility]) 2023 PSVT (paroxysmal supraventricular tachycardia) ([facility]) Skin cancer Vertigo Past Surgical History: Procedure Laterality Date CARPAL TUNNEL RELEASE Left 06/15/2014 MTP CARPAL TUNNEL RELEASE Right 06/29/2014 MTP DILATION AND CURETTAGE OF UTERUS 2004 EYE SURGERY HYSTERECTOMY 2008 [place] REMOVE TONSILS/ADENOIDS,12+ Y/O 1960 Family History Problem [...] reflexes are 2+ and symmetric throughout. Coordination: Srpldc-mp-ivnw testing and rapid alternating movements are normal [...] of mental health issues documented in this encounterLiberty [id number] History of Present illness Narrative* Alexandria Mcnair, PT - 03/16/2024 12:30 PM EDT Images [...] Please sign below. Date: documented in this [facility]10-29-2024 Telephone encounter Note* Telephone Encounter - Remigio Simpson MD - 03/14/2024 3:13 PM EDT Patient with worsening confusion and concerned of UTI. Please fax lab order to hospital. [facility] [id number] Miscellaneous Notes* Telephone Encounter - Remigio Simpson MD - 03/14/2024 3:13 PM EDT Patient with worsening confusion and concerned of UTI. Please fax lab order to hospital. documented in this [facility]10-24-2024 History of Present illness Narrative* Remigio Simpson MD - 03/09/2024 12:35 PM EDT Patient declining and requests PT. Please write PT order for unsteady gait, generalized weakness, and dementia. documented in this [facility]09-25-2024 History of Present illness Narrative* Georgina Sanford, PT - 02/09/2024 11:30 AM EDT Physical Therapy Physical Therapy Evaluation Patient Name: Donnie Blulock Today's Date: 02/09/2024 Please referred to scanned document from Evaluation on 02/09/24 documented in this encounterLiberty [id number] History of Present illness Narrative* Herson Uribe, [...] OF UTERUS 2004 EYE SURGERY HYSTERECTOMY 2008 [place] REMOVE TONSILS/ADENOIDS,12+ Y/O 1961 Family History Family [...] understanding. Herson Uribe DPM documented in this [facility]09-18-2024 Instructions* Patient Instructions* Herson Uribe DPM - 02/02/2024 9:30 AM EDT As noted documented in this [facility]09-10-2024 History of Present illness Narrative* Rei Cobos [...] often. He states the behavioral center in [place] told them this condition is physical not [...] OF UTERUS 2005 EYE SURGERY HYSTERECTOMY 2008 [place] REMOVE TONSILS/ADENOIDS,12+ Y/O 1961 Family History Problem Relation Name Age of Onset Cancer Mother Ayla Jonas Arthritis Mother Ayla Jonas Hypertension Father Carlos Jonas Cancer Father Carlos Jonas Heart disease Sibling Arthritis Maternal Grandmother Dayna Mertzon Social History Tobacco Use Smoking status: Never [...] reflexes are 2+ and symmetric throughout. Coordination: Pwhnle-yi-vtuw testing and rapid alternating movements are normal [...] She has not able to participate with [facility] cognitive assessment. Routine EEG was unremarkable. Neuropsych [...] outlined above. Patient has already seen Dr. Dalton in the inpatient setting and actually very [...] of mental health issues documented in this encounterLiberty [id number] Progress note Author Lionel kingsley [facility] September 22, 2023 9:37amNote Date/TimeMay 2023 9:37am[place] [address] Psychiatry Progress Note Signed Patient: Donnie Bullock MR#: [id number] : 1955 Acct:[id number] Age/Sex: 67 / F Adm Date: 4 Loc: Room: [address] [place] [address] Type : ADM IN Attending Dr: Sridhar [...] signed by Lionel Still MD> 09/22/23 0937 [facility] Work Phone: 1(975) 523-781105-07-2024 Progress note Author Lionel kingsley [facility] September 20, 2023 10:19pmNote Date/TimeMay 2023 10:19pmTrim[place] [address] Psychiatry Progress Note Signed Patient: Donnie Bullock MR#: [id number] : 1955 Acct:[id number] Age/Sex: 67 / F Adm Date: 4 Loc: Room: [address] [place] [address] Type : ADM IN Attending Dr: Sridhar [...] <Electronically signed by Lionel Still MD> 09/20/23 2213 [facility] Work Phone: 1(673) 228-385305-05-2024 Progress note Author Sridhar Hoffman [facility] September 19, 2023 11:52amNote Date/TimeMay 2023 11:51[place] [address] Psychiatry Progress Note Signed Patient: Donnie Bullock MR#: [id number] : 1955 Acct:[id number] Age/Sex: 67 / F Adm Date: 4 Loc: Room: [address] [place] [address] Type : ADM IN Attending Dr: Sridhar [...] that she is out of school in [place]. Mental Status Exam: Appearance: grossly normal Mental [...] signed by Sridhar Hoffman MD> 09/19/23 1152 [facility] Work Phone: 1(569) 214-757305-04-2024 Progress note Author Sridhar Hoffman [facility] September 18, 2023 10:54amNote Date/TimeMay 2023 10:[place] [id number] Psychiatry Progress Note Signed Patient: Donnie Bullock MR#: [id number] : 1955 Acct:[id number] Age/Sex: 67 / F Adm Date: 4 Loc: Room: 5A0167-6 Type : ADM IN Attending Dr: Sridhar [...] alternatives explained Documented By: Sridhar Hoffman MD 09/18/231051 Signed By: <Electronically signed by Sridhar Hoffman MD> 09/18/231053 [facility] Work Phone: 1(117) 100-455905-03-2024 Progress note Author Sridhar Hoffman [facility] September 17, 2023 11:40amNote Date/TimeMay 2023 11:[place] [address] Psychiatry Progress Note Signed Patient: Donnie Bullock MR#: [id number] : 1955 Acct:[id number] Age/Sex: 67 / F Adm Date: 4 Loc: Room: [address] [place] [address] Type : ADM IN Attending Dr: Sridhar [...] signed by Sridhar Hoffman MD> 09/17/23 1140 [facility] Work Phone: 1(418) 864-749005-02-2024 Progress note Author Sridhar Hoffman [facility] September 16, 2023 12:53pmNote Date/TimeMay 2023 12:53[place] [address] Psychiatry Progress Note Signed Patient: Donnie Bullock MR#: [id number] : 1955 Acct:[id number] Age/Sex: 67 / F Adm Date: 4 Loc: Room: [address] [place] [address] Type : ADM IN Attending Dr: Sridhar [...] signed by Sridhar Hoffman MD> 09/16/23 1253 [facility] Work Phone: 1(250) 915-837205-01-2024 History and physical note Author Sridhar Hoffman [facility] September 15, 2023 12:23pmNote Date/TimeMay 2023 12:24[place] [address] Psychiatry H&P Signed Patient: Donnie Bullock MR#: [id number] : 1955 Acct:[id number] Age/Sex: 67 / F Adm Date: 4 Loc: Room: [address] [place] [address] Type: ADM IN Attending Dr: Sridhar Hoffman [...] reported that she thought she saw an Latter Day girl while here in the hospital. She [...] suicidality Insight: fair Judgment: fair [facility] Medical History Osteopenia History of skin cancer [...] Appearance Clear Urine pH 7.0 Ur Specific Mitchell 1.004 Urine Protein Negative Urine Glucose (UA) [...] signed by Sridhar Hoffman MD> 09/15/23 1223 [facility] Work Phone: 1(345) 981-614502-14-2024 Telephone encounter Note* Telephone Encounter - Remigio Simpson MD - 06/30/2023 12:26 PM EST Patient with increased confusion and concerned of UTI. Please fax orders to [facility]. [id number] Miscellaneous Notes* Telephone Encounter - Remigio Simpson MD - 06/30/2023 12:26 PM EST Patient with increased confusion and concerned of UTI. Please fax orders to [facility]. documented in this encounterLiberty [id number] Hospital Discharge instructions Additional Instructions Important Contact Information You can call [facility] at [phone] any time day or night if you have emergent questions or question regarding discharge instructions. If at any time you are feeling an increase in your psychiatric symptoms, call your physician or behavioral healthcare provider. If any time you have thoughts of harming yourself or others contact one of the following: Call (available 07/12) Crisis Text Line (available 07/12) text 4HOPE to [phone] [facility] Hope Line (available 8 a.m. Midnight) call [phone] ([phone]) [facility] Work Phone: 1(463) 813-313908-25-2023 NoteChief Complaint consultation for change in bowel [...] Tobacco Use:. Household tobacco (more content not included)...[facility] Comment on above:Result Comment: Electronically Signed By: AVNI ROGERS, Amor Rangel\Date and Time Signed: 01/08/23 15:31 [id number] NotePROCEDURE: XR ELBOW RT MIN 3 VIEWS HISTORY: Pain of right elbow joint since falling one year ago COMPARISON: None. FINDINGS: BONES:No fracture, acute abnormality, or significant arthropathy. SOFT TISSUES:No visible soft tissue swelling. EFFUSION:None visible. OTHER: Negative. IMPRESSION: 1. Normal examination. Electronically authenticated by: HERSON REBOLLEDO Date: 2022-03-12 18:14[facility] summary Author Lionel kingsley [facility] September 22, 2023 8:41pmNote Date/TimeMay 2023 8:41pm[place] [address] Discharge Summary Signed Patient: Donnie Bullock MR#: [id number] : 1955 Acct:[id number] Age/Sex: 67 / F Adm Date: 4 Loc: 1S Room: [address] [place] [address]: Sridhar Hoffman MD Copies to: Lionel ChekoMD Sridhar sanchez MD Marc Naderer, MD~ Providers Date of [...] reported that she thought she saw an Latter Day girl while here in the hospital. She [...] Instructions: Important Contact Information You can call [facility] at [phone] any timeday or night if you have emergent questions or question regarding discharge instructions. If at anytime you are feeling an increase inyour psychiatric symptoms, call your physician or behavioral healthcare provider. If any time you have thoughts of harming yourself or others contact one of the following: Call (available 07/12) Crisis Text Line (available 07/12) text 4HOPE to [phone] [facility] Hope Line (available 8 a.m. Midnight) call [phone] ([phone]) Instructions: Dementia (DC), [facility] [place] Instructions, Know your Meds [...] Rx Instructions: 8am and 5pm Follow Up: [facility] [Outside] - 09/29/23 12:30 pm (A case resource manager will call you on 09/23/23 between [...] 19:40 Documented By: Lionel Still MD 4 827 Signed By: <Electronically signed by Lionel Still MD> 09/22/232040 [facility] Work Phone: Evaluation + Plan note No data available for this section General [facility] [place] Evaluation noteNo assessment information available [facility] Work Phone: Evaluation note* Diagnosis Onset Date Resolution Status Anxiety acuteConfusionacuteDepressionacuteMajor neurocognitive disorderacuteSuicidal ideationacute [facility] Work Phone: Evaluation note* Diagnosis Recurrent UTI- Primary Urinary tract infection, site not specified DALILA (generalized anxiety disorder) ([facility]) Generalized anxiety disorder Neck pain Cervicalgia MDD (major depressive disorder), recurrent episode, mild (HCC) ([facility]) [facility]* Diagnosis Dysuria- Primary [facility] this [facility]* Diagnosis Onset Date Resolution Status Anxiety acuteDepressionacuteMajor neurocognitive disorderacuteSuicidal ideationacute [facility] Work Phone: Evaluation note* Diagnosis DALILA (generalized anxiety disorder) ([facility]/HCC)- Primary Generalized anxiety disorder documented in this [...] hematuria, site unspecified documented in this encounter [facility] [...] Psychophysical visual disturbances [facility] Diagnosis Dermatophytosis of nail- Primary [...] Abnormality of gait [facility] encounter [facility]* Diagnosis Mild neurocognitive disorder- [...] Abnormality of gait documented in this encounter [facility] HealthcareEvaluation note* Diagnosis Mild neurocognitive disorder- [...] physical note Author Sridhar Hoffman [facility] May 26, 2023 12:28pmNote Date/TimeJan2023 12:28pm[place] [address] Psychiatry H&P Signed Patient: Donnie Bullock MR#: [id number] : 1955 Acct:[id number] Age/Sex: 67 / F Adm Date: 4 Loc: Room: [address] [place] [address] Type: ADM IN Attending Dr: Sridhar Hoffman [...] suicidality Insight: fair Judgment: fair [facility] Medical History (Updated 05/26/23 @ 12:28 by [...] explained Documented By: Sridhar Hoffman MD 05/26/23 2251 Signed By: <Electronically signed by Sridhar Hoffman MD> 05/26/23 1222 [facility] Work Phone: Hospital Discharge instructions No data available for this section General [facility] [place] Progress note No data available for this section General [facility] [place] Reason for referral (narrative)* Consultation (Routine) - Pending ReviewSpecialtyDiagnoses / ProceduresReferred By ContactReferred To ContactUrology Diagnoses Recurrent UTI Procedures OK OFFICE/OUTPATIENT [facility] 60 MINUTES Remigio Simpson MD [address] [place] [address] Amor Arcos MD [address] [place] [address] Referral IDStatusReasonStart DateExpiration DateVisits RequestedVisits [id number] Review Specialty Services Required / [facility] HealthcareReason for referral (narrative)No reason for referral information availableOhiohealth [facility] Work Phone: Reason for visit Narrative* Rehabilitation - Outpatient (Routine) - AuthorizedSpecialtyDiagnoses / ProceduresReferred By ContactReferred To ContactPhysical Therapy Diagnoses Generalized weakness Rapidly progressive dementia (CMS/HCC) Unsteady gait Procedures [place] OFFICE/OUTPATIENT [facility] 60 MINUTES Remigio Simpson MD [address] [place] [address] Phone: tel: fax: Alexandria Mcnair, PT [address] [place] [address] Phone: tel: fax: Referral IDStatusReasonStart DateExpiration DateVisits RequestedVisits [id number] Consult and Treat /[id number] [facility] HealthcareReason for visit Narrative* Rehabilitation - Outpatient (Routine) - AuthorizedSpecialtyDiagnoses / ProceduresReferred By ContactReferred To ContactPhysical Therapy Diagnoses Generalized weakness Rapidly progressive dementia (CMS/HCC) Unsteady gait Procedures OK OFFICE/OUTPATIENT [facility] 60 MINUTES Remigio Simpson MD [address] [place] [address] Phone: tel: fax: Alexandria Mcnair, PT [address] [place] [address] Phone: tel: fax: Referral IDStatusReasonStart DateExpiration DateVisits RequestedVisits [id number] Consult and Treat /525 [facility] Summary Purpose Family History No [...] Unknown July 10, 2024 10:50am Reason for Visit Admit Date Bilateral primary osteoarthritis of knee January 18, 2025 10:30am DALILA (generalized anxiety disorder) Septe mb 2024 10:30am 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 January 18, 2025 10:30am Parkinsons disease, secondary January 18, 2025 10:30am Reason for Referral SpecialtyDiagnoses / ProceduresReferred By ContactReferred To Contact Diagnoses DALILA (generalized anxiety disorder) ([facility]) Remigio Simpson MD [address] [place] [address] Referral IDStatusReasonStart DateExpiration DateVisits RequestedVisits [id number]/ Additional Source Comments INFORMATION SOURCE (unrecogn ized section and content) DATE CREATED AUTHOR 09/17/2022 [facility] DATE CREATED AUTHOR AUTHOR'S ORGANIZ ATION 02/17/2023 [facility] DATE CREATED AUTHOR AUTHOR'S ORGANIZ ATION 05/26/2023 [facility] DATE CREATED AUTHOR AUTHOR'S ORGANIZ ATION 06/02/2024 [facility] DATE CREATED AUTHOR AUTHOR'S ORGANIZ ATION 02/07/2025 [facility] DATE CREATED AUTHOR AUTHOR'S ORGANIZ ATION 03/19/2025 [facility] DATE CREATED AUTHOR AUTHOR'S ORGANIZ ATION 03/27/2025 [facility] Patient Care team informatio n (unrecognized [...] Dates Robert Caruso DO Emergency Provider Active Cece Lilly Care ProviderActiveAdeIris Samayoa Provider, Attending ProviderActive Team Status: Active Member Role Status Dates Robert Caruso DO Emergency Provider Active Sta rt: May 25, 2023 Cece Lilly Care ProviderActiveStart: May 25, 2023 Iris Jorge Provider, Other ProviderActiveStart: May 25, 2023 Susan Rivers ProviderActiveStart: May 25, 2023 Team MemberRelationshipSpecialtyStart DateEnd Date Remigio Simpson MD PCP - [facility] Medicine05/17/22Team MemberRelationshipSpecialtyStart DateEnd Date Remigio Simpson MD PCP - [facility] Medicine05/17/22Team MemberRelationshipSpecialtyStart DateEnd Date Remigio Simpson MD PCP - [facility] Medicine05/17/22 Team Status: Active Member Role Status Dates Remigio Simpson MD Primary Care Provider Active S tart: September 14, 2023 Good Garcia , DOEmergenrené ProviderActiveStart: September 14, 2023 Sridhar Hoffman [facility] Provider, Attending ProviderActiveStart: September 14, 2023 Team MemberRelationshipSpecialtyStart DateEnd Date Remigio Simpson MD [address] [place] [address] PCP - [facility] Medicine07/19/23Team MemberRelationshipSpecialtyStart DateEnd Date Remigio Simpson MD [address] [place] [address] PCP - [facility] Medicine07/19/23Team MemberRelationshipSpecialtyStart DateEnd Date Remigio Simpson MD [address] [place] [address] PCP - [facility] Medicine07/19/23Team MemberRelationshipSpecialtyStart DateEnd Date Remigio Simpson MD [address] [place] [address] PCP - GeneralFamily Medicine07/19/23Team MemberRelationshipSpecialtyStart DateEnd Date Remigio Simpson MD [address] [place] [address] PCP - GeneralFamily Medicine07/19/23Team MemberRelationshipSpecialtyStart DateEnd Date Remigio Simpson MD [address] [place] [address] PCP - GeneralFamily Medicine07/19/23 Rei Cobos DO [address] [place], [place] [address] Referring LwouvdvaqThdtasbxk80/1/24Team MemberRelationshipSpecialtyStart DateEnd Date Remigio Simpson MD [address] [place] [address] PCP - GeneralFamily Medicine07/19/23 Rei Cobos DO [address] [place] [address] Referring UktmhwtchQpmscmnbj96/1/24Team MemberRelationshipSpecialtyStart DateEnd Date Remigio Simpson MD [address] [place] [address] PCP - GeneralFamily Medicine07/19/23 Rei Cobos DO [address] [place] [address] Referring GacewgjsrUeszljofa96/1/24Team MemberRelationshipSpecialtyStart DateEnd Date Remigio Simpson MD [address] [place] [address] PCP - GeneralFamily Medicine07/19/23 Rei Cobos DO [address] [place] [address] Referring QdqmliqueNerlhfhfj05/1/24Team MemberRelationshipSpecialtyStart DateEnd Date Remigio Simpson MD [address] [place] [address] PCP - GeneralFamily Medicine07/19/23 Rei Cobos DO [address] [address] Referring HtimlxefsNeefccqsr84/1/24Team MemberRelationshipSpecialtyStart DateEnd Date Remigio Simpson MD [address] [place] [address] PCP - GeneralFamily Medicine07/19/23 Rei Cobos DO [address] [place] [address] Referring VdkjdixjzVbtggtvdt67/1/24Team MemberRelationshipSpecialtyStart DateEnd Date Remigio Simpson MD [address] [place] [address] PCP - GeneralFamily Medicine07/19/23 Rei Cobos DO [address] [place] [address] Referring JmtlpinlfHwvoklbdj57/1/24Team MemberRelationshipSpecialtyStart DateEnd Date Remigio Simpson MD [address] [place] [address] PCP - GeneralFamily Medicine07/19/23 Rei Cobos DO [address] [place], [place] [address] Referring CsvjsyjdsCrpacjcij68/1/24Team MemberRelationshipSpecialtyStart DateEnd Date Remigio Simpson MD [address] [place] [address] [facility] - [facility]Mer[facility]07/19/23 Rei Cobos DO [address] [place], [place] [address] Referring MxdcrwttgDpbrbgyis23/1/24Team MemberRelationshipSpecialtyStart DateEnd Date Remigio Simpson MD [address] [place] [address] PCP - Generalmily Medicine07/19/23 Rei Cobos DO [address] [place] [address] Referring NfpjpbrizCznomqasg68/1/24Team MemberRelationshipSpecialtyStart DateEnd Date Remigio Simpson MD [address] [place] [address] PCP - GeneralFamily Medicine07/19/23 Rei Cobos DO [address] [place] [address] Referring SuewfszqwIwunirsoz16/1/24Team MemberRelationshipSpecialtyStart DateEnd Date Remigio Simpson MD [address] [place] [address] PCP - GeneralFamily Medicine07/19/23 Rei Cobos DO [address] [address] Referring UwqschovhWsmbtktli87/1/24Team MemberRelationshipSpecialtyStart DateEnd Date Remigio Simpson MD [address] [place] [address] PCP - GeneralFamily Medicine07/19/23 Rei Cobos DO [address] [place] [address], [place] [address] Referring KxmszxgfoWrpjitxer21/1/24Team MemberRelationshipSpecialtyStart DateEnd Date Remigio Simpson MD [address] [place] [address] PCP - GeneralFamily Medicine07/19/23Team MemberRelationshipSpecialtyStart DateEnd Date Remigio Simpson MD [address] [place] [address] PCP - GeneralFamily Medicine07/19/23Team MemberRelationshipSpecialtyStart DateEnd Date Remigio Simpson MD [address] [place] [address] PCP - GeneralFamily Medicine07/19/23 Rei Cobos DO [address] [place] [address] Referring QsjccjdudXzkgxelxe49/1/24Team MemberRelationshipSpecialtyStart DateEnd Date Remigio Simpson MD [address] [place] [address] PCP - GeneralFamily Medicine07/19/23Team MemberRelationshipSpecialtyStart DateEnd Date Remigio Simpson MD [address] [place] [address] PCP - GeneralFamily Medicine07/19/23 Rei Cobos DO [address] [place] [address] Referring IarodgxyqTrajuulqt42/1/24Team MemberRelationshipSpecialtyStart DateEnd Date Remigio Simpson MD [address] [place] [address] PCP - GeneralFamily Medicine07/19/23 Remigio Simpson MD [address] [place] [address] PCP - [facility]06/23/24 Rei Cobos DO [address] [place] [address], [place] [address] Referring LrsifjiliZhvwdhcxp50/1/24Team MemberRelationshipSpecialtyStart DateEnd Date Remigio Simpson MD [address] [place] [address] PCP - GeneralFamily Medicine07/19/23 Remigio Simpson MD [address] [place] [address] PCP - [facility]06/23/24 Rei Cobos DO [address] [place], [place] [address] Referring SprkewdliTjnnxespr66/1/24Team MemberRelationshipSpecialtyStart DateEnd Date Remigio Simpson MD [address] [place] [address] [facility]/23 Remigio Simpson MD [address] [place] [address] PCP - [facility]06/23/24 Rei Cobos DO [address] [place] [address], [place] [address] Referring HqqubnuxjRczfjcxfd49/1/24 Team Status: Active Member Role Status Dates [...] Remigio Simpson MD [address] [place] [address] PCP - GeneralFamily Medicine07/19/23 Remigio Simpson MD [address] [place] [address] PCP - [facility]06/23/24 Rei Cobos DO [address] [place], [place] [address] Referring MzxsckgusAjqffkbww94/1/24Team MemberRelationshipSpecialtyStart DateEnd Date Remigio Simpson MD [address] [place] [address] PCP - GeneralFamily Medicine07/19/23 Remigio Simpson MD [address] [place] [address] PCP - [facility]06/23/24 Rei Cobos DO [address] [place] [address] Referring TgwhttcunJcarbhvas60/1/24Team MemberRelationshipSpecialtyStart DateEnd Date Remigio Simpson MD [address] [place] [address] PCP - GeneralFamily Medicine07/19/23 Remigio Simpson MD [address] [place] [address] PCP - [facility]06/23/24 Rei Cobos DO [address] [place] [address] Referring GfgtgxshzMamjticyq54/1/24Team MemberRelationshipSpecialtyStart DateEnd Date Remigio Simpson MD [address] [place] [address] PCP - Generalmily Medicine07/19/23 Remigio Simpson MD [address] [place] [address] PCP - [facility]06/23/24 Rei Cobos DO [address] [place] [address] Referring XfjiylfivHmmmtkcjo90/1/24Team MemberRelationshipSpecialtyStart DateEnd Date Remigio Simpson MD [address] [place] [address] PCP - GeneralFamily Medicine07/19/23 Remigio Simpson MD [address] [place] [address] PCP - [facility]CO [facility]06/23/24 Rei Cobos DO [address] [place] [address] Referring BoybrzsbcRjjdtqvzk35/1/24Team MemberRelationshipSpecialtyStart DateEnd Date Remigio Simpson MD [address] [place] [address] PCP - GeneralFamily Medicine07/19/23 Remigio Simpson MD [address] [place] [address] PCP - [facility]06/23/24 Rei Cobos DO [address] [place], [place] [address] Referring UnweezfmsJqetwyeox61/1/24Team MemberRelationshipSpecialtyStart DateEnd Date Remigio Simpson MD [address] [place] [address] PCP - [facility] Medicine07/19/23 Remigio Simpson MD [address] [place] [address] PCP - [facility]06/23/24 Rei Cobos DO [address] [place] [address] Referring SpkktkxxdRcomjfyng75/1/24 Team Status: Inactive Member Role Status Dates Remigio Simpson MD Primary Care Provider Active S tart: January 18, 2025 End: January 18, 2025[facility] PENG Simpsonttending ProviderActiveStart: January 18, 2025 End: January 18, 2025Team MemberRelationshipSpecialtyStart DateEnd Date Remigio Simpson MD [address] [place] [address] [facility]07/19/23 Remigio Simpson MD [address] [place] [address] PCP - [facility]06/23/24 Rei Cobos DO [address] [place] [address] Referring EzauhbxlpIjwulgvcd07/1/24Team MemberRelationshipSpecialtyStart DateEnd Date Remigio Simpson MD [address] [place] [address] PCP - [facility] Medicine07/19/23 Remigio Simpson MD [address] [place] [address] PCP - [facility]06/23/24 Rei Cobos DO [address] [place] [address] Referring CrqfphqhqSwqwacfrz39/1/24Team MemberRelationshipSpecialtyStart DateEnd Date Remigio Simpson MD [address] [place] [address] PCP - [facility] Medicine07/19/23 Remigio Simpson MD [address] [place] [address] PCP - [facility]06/23/24 Rei Cobos DO [address] [place] [address] Referring LvxifpqjzXbjdjzyuy55/1/24 Team Status: Inactive Member Role/Relationship Status Dates Remigio Simpson MD Primary Care Provider Active S tart: January 18, 2025 End: January 18, 2025[facility] Susan Simpson ProviderActiveStart: January 18, 2025 End: January 18, 2025 Team Status: Active Member Role/Relationship Status Dates Remigio Simpson MD Primary Care Provider Active S tart: March 17, 2025 Susan Lilly ProviderActiveStart: March 17, 2025 Goals (unrecognized section and content) Goals may be documented in a n alternate section Source Comments (unrecognize d section and content) In the event this informatio n is protected by the Federal Confidentiality of Alcohol and Drug Abuse Patient Records regulations: The Federal rules restrict any use of the information to criminally investigate or prosecute any alcohol or drug abuse patient.[facility] HospitalIn the event this information is protected by the Federal Confidentiality of Alcohol and Drug Abuse Patient Records regulations: The Federal rules restrict any use of the information to criminally investigate or prosecute any alcohol or drug abuse patient.[facility] HospitalIn the event this information is protected by the Federal Confidentiality of Alcohol and Drug Abuse Patient Records regulations: The Federal rules restrict any use of the information to criminally investigate or prosecute any alcohol or drug abuse patient.[facility] HospitalIn the event this information is protected by the Federal Confidentiality of Alcohol and Drug Abuse Patient Records regulations: The Federal rules restrict any use of the information to criminally investigate or prosecute any alcohol or drug abuse patient.[facility] HospitalIn the event this information is protected by the Federal Confidentiality of Alcohol and Drug Abuse Patient Records regulations: The Federal rules restrict any use of the information to criminally investigate or prosecute any alcohol or drug abuse patient.[facility] HospitalIn the event this information is protected by the Federal Confidentiality of Alcohol and Drug Abuse Patient Records regulations: The Federal rules restrict any use of the information to criminally investigate or prosecute any alcohol or drug abuse patient.[facility] HospitalIn the event this information is protected by the Federal Confidentiality of Alcohol and Drug Abuse Patient Records regulations: The Federal rules restrict any use of the information to criminally investigate or prosecute any alcohol or drug abuse patient.[facility] HospitalIn the event this information is protected by the Federal Confidentiality of Alcohol and Drug Abuse Patient Records regulations: The Federal rules restrict any use of the information to criminally investigate or prosecute any alcohol or drug abuse patient.[facility] HospitalIn the event this information is protected by the Federal Confidentiality of Alcohol and Drug Abuse Patient Records regulations: The Federal rules restrict any use of the information to criminally investigate or prosecute any alcohol or drug abuse patient.[facility] Reason for Visit (unrecogniz ed section and content) ReasonCommentsNew Patient EvaluationReasonCommentsNail careMarcia Dylan Elder is a 67 y.o. female who presents for Nail care.ReasonCommentsMedication Follow-up ReasonCommentsFungusPt is here today with her spouse for 3mo FUV nail fungus, they will sometimes bother her when shoesare onSS:9ReasonCommentsPatient QuestionPatient UpdateSpouse requesting to speak with nurseReasonCommentsCalled BackPatient QuestionSpouse requesting a return phone callReasonCommentsRefill RequestReasonOnset DateCommentsMed Wxynaz1708/14/2024ReasonOnset DateCommentsMed [id number]/22/2024ReasonCommentsFollow-upEr f/upFell out of bedReasonComments Toenail CareEstablished patient [...] BE BASED ON THE PRIMARY CLINICAL RECORDS. [employer] provides no warranty or guarantee of the accuracy or completeness of information in this document.
[2025-04-26 12:40] LABS: Glucose Urine UA NEGATIVE (NEGATIVE)
== END 2025-04-26 11:44 | disposition home or self-care (01) ==
LOC: LAB 11:43
PROVIDERS: PCP Family Medicine; Visit Provider Family Medicine
DX: R30.0 Dysuria (principal)
CPT/HCPCS: 81003; 87086